=== PATIENT | male | born 1940 | race Caucasian/White ===

== ENCOUNTER 2018-01-13 18:45 | Inpatient (IN) | payer MEDICARE, OTHER, SELFPAY ==
--- NOTE | 2018-01-13 19:45 | CT_ITS ---
STUDY: CT ABDOMEN AND PELVIS WITHOUT CONTRAST REASON FOR EXAM: Male, 77 years old. Fever. Lower abdominal pain. RADIATION DOSAGE (If Supplied By Facility): CTDIvol = ( 11.81 ) mGy, DLP = ( 858.84 ) mGycm TECHNIQUE: Transaxial images were obtained from the dome of the diaphragm to the symphysis pubis without oral contrast, and without intravenous contrast. Sagittal and coronal images were reconstructed. Individualized dose optimization techniques were used for this CT. COMPARISON: None. FINDINGS: Evaluation of the abdominal viscera is limited in the absence of intravenous contrast. There is atelectasis noted at the lung bases. The visualized portions of the heart and pericardium are within normal limits. There are coronary artery calcifications noted. There are no calcified gallstones present. There are simple cysts noted in the liver. The spleen is normal in size. The pancreas demonstrates an unremarkable unenhanced appearance. The adrenal glands are within normal limits. There are no urinary calculi. There is mild bilateral hydronephrosis with bilateral perinephric stranding. Please note that pyelonephritis is not excluded without intravenous contrast. There are hyperdense lesions in the left kidney which are not fully evaluated on this noncontrast exam. These may represent complex cysts. Normal visualized stomach. There is no bowel obstruction or inflammation. The appendix is not visualized, but there are no findings to suggest acute appendicitis. There are postsurgical changes noted from prior left hernia repair. The aorta is normal in caliber. There is no abdominal or pelvic free air, free fluid, fluid collection or lymphadenopathy. There are no destructive osseous lesions. CT/Abdomen/Pelvis without Cont IMPRESSION: No urinary calculi. Mild bilateral hydronephrosis and perinephric stranding. Please note that pyelonephritis is not excluded without intravenous contrast. No bowel obstruction or inflammation. Hyperdense lesions in the left kidney which are not fully characterized on this noncontrast exam. These may represent complex cysts. Electronically Signed: Larry Mitchell, at 17:33 EDT Tel , Service support ,
--- NOTE | 2018-01-13 20:04 | RAD_ITS ---
STUDY: X-RAY CHEST REASON FOR EXAM: Male, 77 years old. Fever. TECHNIQUE: PA and lateral views of the chest. COMPARISON: September 04, 2014. FINDINGS: Telemetry wires overlie the chest. The lungs are clear and expanded. There is no demonstrated pleural abnormality. Normal size heart. Normal mediastinum and bakari. Normal visualized pulmonary arteries. There is atherosclerotic calcification of the aortic arch with tortuosity. There are diffuse degenerative changes of the visualized thoracic spine. There is degenerative osteoarthritis of the bilateral shoulders. There is no demonstrated abnormality of the visualized soft tissue structures of the upper abdomen. RAD/Chest PA and Lateral IMPRESSION: No acute cardiopulmonary disease. Electronically Signed: Tyler Bush DO at 15:07 EDT Tel [phone], Service support ,
--- NOTE | 2018-01-13 22:35 | DT_ITS ---
This patient was seen during an EMR downtime January 13, 2018 - January 20, 2018. This patient may have a combination of paper and electronic documentation or all paper documentation. All documentation is viewable within the e-chart portion of [facility] for each patient visit.
[2018-01-16 12:10] LABS: AST(SGOT) 17 U/L (15-37); Alanine Aminotransfer ALT/SGPT 17 U/L (16-61); Albumin, Serum 3.1 g/dL (3.2-5.0); Alkaline Phosphatase 71 U/L (45-117); BUN 37 mg/dL (7-18); BUN/Creat Ratio 21.8 RATIO (10-20); Calcium,Total 9.2 mg/dL (8.5-10.1); EST Glomerular Filtration Rate 42 mL/min (>60); Est Glom Filt Rate - Afr Amer 51 mL/min (>60); Glucose 116 mg/dL (74-106)
[2018-01-16 12:11] LABS: Anion Gap 9 (5-15); Chloride 101 mmol/L (98-107); Lactic Acid 1.1 mmol/L (0.4-2.0); Potassium 3.7 mmol/L (3.5-5.1); Sodium Level 137 mmol/L (136-145)
[2018-01-16 15:04] LABS: Red Blood Cells-Urine 0 SEEN /hpf (0-5); Squamous Epithelial Cells - UA 0 SEEN /hpf (0-5)
[2018-01-16 15:16] LABS: Color, Urine Yellow (Yellow); Glucose, Dipstick NEGATIVE (Normal); Ketone-Dipstick Negative (Negative); Urine Bilirubin Dipstick Negative (Negative); Urine Clarity Cloudy (Clear)
[2018-01-16 15:17] LABS: Protein-Dipstick 30 mg/dl (Negative); Urine Urobilinogen Normal (Normal)
[2018-01-16 15:18] LABS: Bacteria 1+ /hpf (None Seen); Leukocyte Esterase-Dipstick 1+ /ul (Negative); Mucous, Urine 1+ /hpf (<or=2+); Nitrite-Dipstick Positive (Negative); Occult Blood-Urine 50 /ul (Negative); Specific Gravity-Refractometer 1.009; White Blood Cells 10-25 SEEN /hpf (0-5)
[2018-01-17 08:37] LABS: ALB/GLOB Ratio 0.9 RATIO (0.9-2.4); Globulin 3.6 g/dL (2.2-4.2); Protein, Total 6.7 g/dL (6.4-8.2)
[2018-01-17 09:03] LABS: Hematocrit 35.9 % (40-54); Hemoglobin 11.4 g/dl (13.0-16.5); Mean Corp Hgb Conc 31.8 g/gl (32-36); Mean Corpuscular Hgb 30.5 pg (27.0-32.0); Mean Platelet Vol. 11.5 fl (6.2-12.0); POSITIVE COUNT NO; POSITIVE DIFFERENTIAL YES; POSITIVE MORPHOLOGY NO; Platelet Count 128 K/mm3 (150-450); RBC Distribution Width CV 12.9 % (11.6-14.6); RBC Distribution Width SD 43.3 fl (35.1-43.9); Red Blood Count 3.74 M/mm3 (4.6-6.2); White Blood Count 12.5 K/mm3 (4.4-11.0)
[2018-01-17 09:04] LABS: Absolute Lymphocyte Count 0.25 X10^3/ul (0.83-4.51); Absolute Neutrophil Count 11.7 X10^3/uL (2.0-7.7); Basophil# 0.01 X10^3/uL; Basophil% 0.1 % (0-1); Differential Comment SCANNED; Differential Indicated SCAN CRITERIA MET; Lymphocyte # 0.25 X10^3/ul (4.0); Monocyte# 0.48 X10^3/uL; Monocyte% 3.8 % (0-10); Neutrophil # 11.73 X10^3/uL (2.7-7.7); Neutrophil % 93.9 % (47-70)
[2018-01-17 11:53] LABS: Hematocrit 34.3 % (40-54); Hemoglobin 10.6 g/dl (13.0-16.5); Mean Corp Hgb Conc 30.9 g/gl (32-36); Mean Corpuscular Hgb 30.3 pg (27.0-32.0); Mean Platelet Vol. 11.9 fl (6.2-12.0); POSITIVE COUNT NO; POSITIVE DIFFERENTIAL NO; POSITIVE MORPHOLOGY NO; Platelet Count 136 K/mm3 (150-450); RBC Distribution Width SD 45.4 fl (35.1-43.9); White Blood Count 15.4 K/mm3 (4.4-11.0)
[2018-01-17 11:54] LABS: Absolute Lymphocyte Count 1.01 X10^3/ul (0.83-4.51); Absolute Neutrophil Count 13.1 X10^3/uL (2.0-7.7); Basophil# 0.01 X10^3/uL; Basophil% 0.1 % (0-1); Eosinophil# 0.01 X10^3/uL; Eosinophils% 0.1 % (0-5); Lymphocyte # 1.01 X10^3/ul (4.0); Lymphocyte % 6.6 % (19-41); Monocyte# 1.26 X10^3/uL; Monocyte% 8.2 % (0-10); Neutrophil # 13.07 X10^3/uL (2.7-7.7); Neutrophil % 84.8 % (47-70)
[2018-01-18 08:34] LABS: Anion Gap 7 (5-15); BUN 39 mg/dL (7-18); BUN/Creat Ratio 21.7 RATIO (10-20); Calcium,Total 8.6 mg/dL (8.5-10.1); Chloride 104 mmol/L (98-107); EST Glomerular Filtration Rate 39 mL/min (>60); Est Glom Filt Rate - Afr Amer 47 mL/min (>60); Glucose 104 mg/dL (74-106); Potassium 4.3 mmol/L (3.5-5.1); Sodium Level 139 mmol/L (136-145)
== END 2018-01-14 16:41 | disposition home or self-care (01) | DRG 872 ==
LOC: ED 01-15 11:45 → MS3 01-15 11:50
PROVIDERS: Admitting Provider Hospitalist; Emergency Provider Emergency Medicine; Family Provider Family Medicine; PCP Family Medicine; Visit Provider Hospitalist
DX: A41.9 Sepsis, unspecified organism (principal); N10 Acute pyelonephritis; I25.10 Atherosclerotic heart disease of native coronary artery without angina pectoris; E78.5 Hyperlipidemia, unspecified; N40.0 Benign prostatic hyperplasia without lower urinary tract symptoms; Z87.891 Personal history of nicotine dependence; I12.9 Hypertensive chronic kidney disease with stage 1 through stage 4 chronic kidney disease, or unspecified chronic kidney disease; N18.9 Chronic kidney disease, unspecified; Z95.5 Presence of coronary angioplasty implant and graft
CPT/HCPCS: 36415; 71046; 74176; 80048; 80053; 81001; 83605; 85025; 87040; 87086; 96365; 96366; 96375; 99285; J7030; J0696

== ENCOUNTER 2018-05-21 07:42 | Day surgery (SDC) | payer MEDICARE, OTHER, SELFPAY ==
[2018-05-19 06:55] LABS: Bacteria 0 SEEN /hpf (None Seen); Mucous, Urine 0 SEEN /hpf (<or=2+); Red Blood Cells-Urine 0 SEEN /hpf (0-5); Squamous Epithelial Cells - UA 0 SEEN /hpf (0-5)
--- NOTE | 2018-05-19 07:03 | EKG12_ITS ---
Test Reason : Blood Pressure : / mmHG Vent. Rate : 064 BPM Atrial Rate : 064 BPM P-R Int : 188 ms QRS Dur : 160 ms QT Int : 460 ms P-R-T Axes : 042 009 024 degrees QTc Int : 474 ms Normal sinus rhythm Right bundle branch block Abnormal ECG Confirmed by TRE WATT, BRIAN ([id number]), book or script editor STEFAN COOPER ([id number]) on 05/19/2018 2:09:57 PM Referred By: Jc Piña Confirmed By:BRIAN TOLEDO MD
[2018-05-19 07:21] LABS: Hematocrit 37.3 % (40-54); Hemoglobin 11.9 g/dl (13.0-16.5); Mean Corp Hgb Conc 31.9 g/gl (32-36); Mean Corpuscular Hgb 30.7 pg (27.0-32.0); Mean Corpuscular Volume 96.1 fL (80-94); Platelet Count 150 K/mm3 (150-450); RBC Distribution Width CV 13.2 % (11.6-14.6); RBC Distribution Width SD 45.1 fl (35.1-43.9); Red Blood Count 3.88 M/mm3 (4.6-6.2); White Blood Count 5.7 K/mm3 (4.4-11.0)
[2018-05-19 07:23] LABS: Scan Indicated on CBC? Y/N NO
[2018-05-19 07:31] LABS: Color, Urine Yellow (Yellow); Glucose, Dipstick Normal (Normal); Ketone-Dipstick Negative (Negative); Leukocyte Esterase-Dipstick 25 /ul (Negative); Nitrite-Dipstick Negative (Negative); Occult Blood-Urine Negative /ul (Negative); Protein-Dipstick 15 mg/dl (Negative); Specific Gravity, Urine 1.015 (1.002-1.030); Urine Bilirubin Dipstick Negative (Negative); Urine Clarity Sl. Cloudy (Clear); Urine Urobilinogen Normal (Normal)
[2018-05-19 07:37] LABS: Anion Gap 6 (5-15); BUN 34 mg/dL (7-18); Calcium,Total 9.3 mg/dL (8.5-10.1); Chloride 107 mmol/L (98-107); Creatinine, Serum 1.79 mg/dL (0.70-1.30); EST Glomerular Filtration Rate 39 mL/min (>60); Est Glom Filt Rate - Afr Amer 48 mL/min (>60); Glucose 93 mg/dL (74-106); Potassium 4.7 mmol/L (3.5-5.1); Sodium Level 141 mmol/L (136-145)
[2018-05-19 07:39] LABS: White Blood Cells 0-5 SEEN /hpf (0-5)
[2018-05-21 08:01] VITALS: BP 136/76; PULSE 61; RESP 16; TEMP 37.1; O2SAT 94; BMI 27.7
--- NOTE | 2018-05-21 09:15 | DCINST_ITS ---
Discharge Diet: Light diet - advance as tolerated - if you have questions about your diet instructions, please talk to you doctor. Discharge Activity: May Not Drive - for 1 week or while taking narcotic pain medicine. May shower in (days): 1 Lifting Restrictions: 10 pounds Call your doctor if your incision/area has: Continuous Slow Oozing, Sudden Increased Bleeding, Increased Pain/ Swelling, Increased Redness, Foul Smelling Discharge Call your doctor if you observe: Fever of 101 or Higher Suture Line Care: Avoid Pulling/Pushing, Avoid Pinching/Bending Additional Dressing/Incision Instructions:: Change or remove dressing in 4 days. Leave steri-strips in place for 1 week. Allergies/Adverse Reactions: Allergies lisinopril Adverse Reaction (Verified 05/16/18 13:35) Other Medications to take at Discharge Amlodipine [Norvasc] 5 mg PO DAILY 09/04/14 Atorvastatin Calcium [Lipitor] 20 mg PO QHS 09/04/14 Doxazosin Mesylate [Cardura] 4 mg PO QHS 09/04/14 Hydrochlorothiazide [Hctz] 25 mg PO DAILY 09/04/14 Losartan Potassium [Cozaar] 100 mg PO DAILY 09/04/14 aspirin 81 mg tablet,delayed release 81 mg PO DAILY 04/29/18 Hydrocodone Bitart/Apap 5-325 [[place] 5MG-325MG] 1 tablet PO Q4H PRN PRN 3 Days #8 tablet 05/21/18 The following prescriptions were given: Hydrocodone Bitart/Apap 5-325 [[place] 5MG-325MG] 1 tablet PO Q4H PRN PRN 3 Days #8 tablet PRN Reason: Pain Primary Care Physician: Juan Manuel Piña III, MD [Primary Care Provider] - Test Results: Test results from this visit will be discussed in further detail at your follow- up appointment, if applicable. Please Follow Up With: Jc Piña MD - [phone] When: Call to make an appointment to be seen in about 10 days.
[2018-05-21] MEDS: Cefazolin 2 GM in 0.9% Normal Saline 100 ML IV (09:16)
[2018-05-21] MEDS: Bupivacaine Mpf 0.5% 30 ML VIAL (10:20)
--- NOTE | 2018-05-21 10:26 | PCM.OPRPT ---
Problem List (1) Recurrent inguinal hernia of right side without obstruction or gangrene Status: Acute Report of Operation Date of Procedure: 05/21/18 Pre-Operative Diagnosis: Recurrent right inguinal hernia Post-Operative Diagnosis: Recurrent incarcerated direct right inguinal hernia Surgery/Procedure Performed:: Laparoscopic repair recurrent incarcerated direct right inguinal hernia with Bard 3D max mesh. Lot number [id number] 08/12/2005. Reference #[id number]. Expiry date 02/06/2022. Large right. Secure strap lot number [id number]. Expiry date 11/30/2019 Description of Surgical Findings:: Timeout informed consent was obtained. 77-year-old gentleman was taken to the operating room placed upon the table. He underwent general endotracheal intubation and anesthesia. 2 g of Ancef were given intravenously. The abdomen was sterilely prepped and draped. 0.5% Marcaine was used as local anesthetic. Skin sites were pre-anesthetized. A vertical incision was made in the inferior portion of the umbilicus. Direct access was gained to the abdomen. A 10 mm trocar was placed. The abdomen was insufflated with CO2 usual pressure millimeters of mercury pressure. Evidence of a previous lap scopic repair of left and one hernia appear to be solid and intact. The abdomen was superficially inspected no gross abnormalities. Five-minute trochars placed in the left and right lower quadrant. The peritoneum superior lateral to the internal ring on the right was incised carried immediately the peritoneum was rather adherent I had to carefully dissect that free dissected free to the pubic tubercle identified the lap scopic mesh repair from the left side freed up the urinary bladder there was evidence of fibrofatty tissue that was tightly incarcerated within a recurrent direct right defect. I had a tediously bluntly milked this free. Were needed hemoclips were used for hemostasis I was able to completely remove the incarcerated fibrofatty tissue. Dissected then laterally to completely free the peritoneum so I could see the indirect space direct space and femoral area. I selected a Bard 3D max large right mesh. Placed that and it nicely seated itself nicely covering the defect area. I secured it laterally superiorly medially with secure strap. Excellent positioning was achieved. I then reapproximated the peritoneum using 3 secure strap tacks with complete obliteration to the mesh. One tiny defect in the peritoneum was approximately a Hem-o-emma clip. Trochars were removed under visualization. It is of note at the time of surgery a ileal inguinal nerve block was performed on the right under visualization as well. Trochars were removed. The fascial defect at the umbilicus approximated with interrupted 0 Nurolon xiyqlx-ph-[id number] suture. Skin edges affect interrupted 4 Monocryl subdermal stitches. Steri-Strips Telfa OpSite dressings applied. Sponge instrument and needle counts were reported the surgeon to be correct. Blood loss was minimal. No apparent complications. Specimens none. Drains none. Blood loss minimal. He was taken to the recovery area in satisfactory condition without apparent complication. Jc Piña M.D., F.A.C.S. Type of Anesthesia:: General Anesthesiologist: Laz Amanda
--- NOTE | 2018-05-21 10:38 | OP.PCM_ITS ---
Problem List (1) Recurrent inguinal hernia of right side without obstruction or gangrene Status: Acute Report of Operation Date of Procedure: 05/21/18 Pre-Operative Diagnosis: Recurrent right inguinal hernia Post-Operative Diagnosis: Recurrent incarcerated direct right inguinal hernia Surgery/Procedure Performed:: Laparoscopic repair recurrent incarcerated direct right inguinal hernia with Bard 3D max mesh. Lot number [id number] 08/12/2005. Reference #[id number]. Expiry date 02/06/2022. Large right. Secure strap lot number [id number]. Expiry date 11/30/2019 Description of Surgical Findings:: Timeout informed consent was obtained. 77-year-old gentleman was taken to the operating room placed upon the table. He underwent general endotracheal intubation and anesthesia. 2 g of Ancef were given intravenously. The abdomen was sterilely prepped and draped. 0.5% Marcaine was used as local anesthetic. Skin sites were pre-anesthetized. A vertical incision was made in the inferior portion of the umbilicus. Direct access was gained to the abdomen. A 10 mm trocar was placed. The abdomen was insufflated with CO2 usual pressure millimeters of mercury pressure. Evidence of a previous lap scopic repair of left and one hernia appear to be solid and intact. The abdomen was superficially inspected no gross abnormalities. Five-minute trochars placed in the left and right lower quadrant. The peritoneum superior lateral to the internal ring on the right was incised carried immediately the peritoneum was rather adherent I had to carefully dissect that free dissected free to the pubic tubercle identified the lap scopic mesh repair from the left side freed up the urinary bladder there was evidence of fibrofatty tissue that was tightly incarcerated within a recurrent direct right defect. I had a tediously bluntly milked this free. Were needed hemoclips were used for hemostasis I was able to completely remove the incarcerated fibrofatty tissue. Dissected then laterally to completely free the peritoneum so I could see the indirect space direct space and femoral area. I selected a Bard 3D max large right mesh. Placed that and it nicely seated itself nicely covering the defect area. I secured it laterally superiorly medially with secure strap. Excellent positioning was achieved. I then reapproximated the peritoneum using 3 secure strap tacks with complete obliteration to the mesh. One tiny defect in the peritoneum was approximately a Hem-o-emma clip. Trochars were removed under visualization. It is of note at the time of surgery a ileal inguinal nerve block was performed on the right under visualization as well. Trochars were removed. The fascial defect at the umbilicus approximated with interrupted 0 Nurolon ysnnyx-vy-njjpu suture. Skin edges affect interrupted 4 Monocryl subdermal stitches. Steri-Strips Telfa OpSite dressings applied. Sponge instrument and needle counts were reported the surgeon to be correct. Blood loss was minimal. No apparent complications. Specimens none. Drains none. Blood loss minimal. He was taken to the recovery area in satisfactory condition without apparent complication. Jc Piña M.D., F.A.C.S. Type of Anesthesia:: General Anesthesiologist: Laz Amanda
[2018-05-21 10:54] VITALS: BP 119/60; BP 136/76; PULSE 57; RESP 14; TEMP 36.7; O2SAT 92
[2018-05-21 11:00] VITALS: BP 135/65; BP 136/76; PULSE 92; RESP 16; O2SAT 95
[2018-05-21 11:15] VITALS: BP 120/62; BP 136/76; PULSE 66; RESP 16; O2SAT 94
[2018-05-21 11:41] VITALS: BP 128/58; BP 136/76; PULSE 53; RESP 16; TEMP 36.7; O2SAT 92
[2018-05-21 13:46] VITALS: BP 136/76; BP 143/52; PULSE 62; RESP 16; TEMP 36.3; O2SAT 92
== END 2018-05-21 14:07 | disposition home or self-care (01) ==
LOC: SDC 07:43 → AC 07:43
PROVIDERS: Family Provider Family Medicine; PCP Family Medicine; Referring Provider Surgery; Visit Provider Surgery
PROC: (CPT 49650; principal; 2018-05-21 09:30)
DX: K40.31 Unilateral inguinal hernia, with obstruction, without gangrene, recurrent (principal); I12.9 Hypertensive chronic kidney disease with stage 1 through stage 4 chronic kidney disease, or unspecified chronic kidney disease; N18.3 Chronic kidney disease, stage 3 (moderate); I25.10 Atherosclerotic heart disease of native coronary artery without angina pectoris; I45.10 Unspecified right bundle-branch block; D64.9 Anemia, unspecified; E78.5 Hyperlipidemia, unspecified; K21.9 Gastro-esophageal reflux disease without esophagitis; Z79.82 Long term (current) use of aspirin; Z79.899 Other long term (current) drug therapy; I25.2 Old myocardial infarction; Z87.891 Personal history of nicotine dependence; Z86.73 Personal history of transient ischemic attack (TIA), and cerebral infarction without residual deficits; Z95.5 Presence of coronary angioplasty implant and graft
CPT/HCPCS: 49651; 36415; 80048; 81001; 85027; 93005; J7120; A4216; C1781; J2405

== ENCOUNTER 2019-12-22 07:24 | Day surgery (SDC) | payer MEDICARE, SELFPAY ==
[2019-12-16 10:35] VITALS: BMI 27.7
[2019-12-22 07:49] VITALS: BP 135/78; PULSE 59; RESP 16; TEMP 36.8; O2SAT 97; BMI 28.0
[2019-12-22] MEDS: Lactated Ringers 1,000 ML 100 ML IV (08:05)
--- NOTE | 2019-12-22 08:21 | PCM.HP.STD ---
Problem List (1) Screening for intestinal cancer Status: Acute History of Present Illness Date of Admission: 12/22/19 The patient is a 79 year old M who presents for screening colonoscopy HPI Details: Patient was informed that this visit will be billed to patient. This visit was conducted during - pandemic. LUIS MANUEL CASTILLO, is a 79 M who presents to the office today for surgical consultation today regarding need for colonoscopy. This was a virtual visit. The patient was located in his home and I was located in my office. The patient was agreeable. His most recent colonoscopy approximately 10 years ago. Fortunately he denies bright red blood per rectum or melena. I recently saw him for hyperparathyroidism and he did go on to see endocrine surgery who did not recommend surgery but rather conservative measures with increased fluid intake. He denies family history of colon polyps or colon cancer. He does not believe that he is ever previously had colon polyps but he is not completely sure. He has never had colon surgery. He denies abdominal pain. No bright red blood per rectum or melena. He states that his health otherwise is stable. He denies fever or chills or shortness of breath. He is able to climb a flight of stairs. Past Medical History Past Medical History (Chronic Problems): Chronic Problems (Last Reviewed 12/16/19 @ 10:33 by Ruby Lim) Hypertension (Chronic) Medical History: Medical History (Last Reviewed 12/16/19 @ 10:33 by Ruby Lim) Screening for intestinal cancer (Acute) Z12.10 Osteopenia determined by x-ray (Acute) M85.80 Hyperparathyroidism (Acute) E21.3 Recurrent inguinal hernia of right side without obstruction or gangrene (Acute) K40.91 TIA (transient ischemic attack) (Acute) G45.9 Mild renal insufficiency (Acute) N28.9 Esophageal reflux (Acute) K21.9 Dyslipidemia (Acute) E78.5 Hiatal hernia (Acute) K44.9 CKD (chronic kidney disease) stage 3, GFR 30-59 ml/min (Acute) N18.3 CAD (coronary artery disease), [place]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 (Acute) I25.811 Anemia (Acute) D64.9 History of heart attack (Acute) I25.2 Hypertension (Chronic) I10 Allergies lisinopril Adverse Reaction (Verified 12/18/19 12:41) Other Home Medications: Ambulatory Orders Medication Instructions Recorded Atorvastatin Calcium [Lipitor] 20 mg PO QHS 09/04/14 Doxazosin Mesylate [Cardura] 4 mg PO QHS 09/04/14 Hydrochlorothiazide [Hctz] 25 mg PO DAILY 09/04/14 aspirin 81 mg tablet,delayed 81 mg PO DAILY 04/29/18 release amlodipine 5 mg tablet 5 mg PO DAILY 10/27/19 metoprolol tartrate 25 mg tablet 25 mg PO BID 10/27/19 Cholecalciferol (Vitamin D3) 2,000 unit PO DAILY 12/18/19 [Vitamin D3] Surgical History: Surgical History (Last Reviewed 12/16/19 @ 10:33 by Ruby Lim) Hx of parathyroidectomy (Acute) Z98.890 05/27/13 Hx of bilateral inguinal hernia repair (Acute) Z98.890, Z87.19 Hx of heart artery stent (Acute) Z95.5 Smoking Status: Former smoker Tobacco Use: Non-smoker Review of Systems Constitutional: Denies: Anorexia Cardiovascular: Denies: Chest Pain Respiratory: Denies: Cough Gastrointestinal: Denies: Abdominal Pain, Melena Endocrine: Denies: Change in Body Habitus VTE Information - Inpt Only VTE Present on Admission: No - Physical Exam Vitals/I&O's: Vital Signs Temp Pulse Resp BP Pulse Ox 98.3 F 59 L 16 135/78 H 97 12/22/19 07:49 12/22/19 07:49 12/22/19 07:49 12/22/19 07:49 12/22/19 07:49 Oxygen Delivery Method Room Air Weight: 178 lb 12.718 oz Body Mass Index (BMI) 28.0 General: Alert, Oriented x3, Cooperative, No apparent distress Neck: Supple Lungs: Clear to auscultation, Normal air movement Cardiovascular: Regular rate, Regular Rhythm Abdomen: Soft, Non Tender Extremities: No Calf Tenderness Psych/Mental Status: Normal Affect Current Medications Lactated Ringer's () 1,000 mls @ 100 mls/hr IV .Q10H NIDA Last Admin: 12/22/19 08:05 Dose: 100 mls/hr Documented by: Assessment/Plan All Active Problems (Last Reviewed 12/16/19 @ 10:33 by Ruby Lim) Screening for intestinal cancer (Acute) Osteopenia determined by x-ray (Acute) Hyperparathyroidism (Acute) Recurrent inguinal hernia of right side without obstruction or gangrene (Acute) Recurrent inguinal hernia (Acute) TIA (transient ischemic attack) (Acute) Mild renal insufficiency (Acute) Esophageal reflux (Acute) Dyslipidemia (Acute) Hiatal hernia (Acute) CKD (chronic kidney disease) stage 3, GFR 30-59 ml/min (Acute) CAD (coronary artery disease), [place]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 He had had a virtual appointment preprocedure. He has had an opportunity to ask and have questions answered. We will proceed as noted. Jc Piña M.D., F.A.C.S.
[2019-12-22 09:01] VITALS: BP 110/67; BP 135/78; PULSE 52; RESP 18; TEMP 36.3; O2SAT 96
--- NOTE | 2019-12-22 09:04 | OP.COLON_ITS ---
Patient Name: Sharan Duran Procedure Date: 12/22/2019 8:35 AM Date of : 1940 Age: 79 Procedure: Colonoscopy Indications: Screening for colorectal malignant neoplasm Providers: Jc Piña MD Referring MD: Juan Manuel Piña Iii Medicines: See the Anesthesia note for documentation of the administered medications Patient Profile: Last Colonoscopy: 10 years ago. Complications: No immediate complications. Procedure: Pre-Anesthesia Assessment: - Prior to the procedure, a History and Physical was performed, and patient medications and allergies were reviewed. The patient's tolerance of previous anesthesia was also reviewed. The risks and benefits of the procedure and the sedation options and risks were discussed with the patient. All questions were answered, and informed consent was obtained. Prior Anticoagulants: The patient has taken no previous anticoagulant or antiplatelet agents. ASA Grade Assessment: III - A patient with severe systemic disease. After reviewing the risks and benefits, the patient was deemed in satisfactory condition to undergo the procedure. After I obtained informed consent, the scope was passed under direct vision. Throughout the procedure, the patient's blood pressure, pulse, and oxygen saturations were monitored continuously. The colonoscope was introduced through the anus and advanced to the cecum, identified by appendiceal orifice and ileocecal valve. The colonoscopy was performed without difficulty. The patient tolerated the procedure well. The quality of the bowel preparation was good. The ileocecal valve and the appendiceal orifice were photographed. Scope In: 8:45:38 AM Scope Withdrawal Time 0 hours 6 minutes 37 seconds Scope Out: 8:57:27 AM Total Procedure Duration Time 0 hours 11 minutes 49 seconds Findings: The digital rectal exam findings include non-thrombosed external hemorrhoids, non-thrombosed internal hemorrhoids and internal hemorrhoids that prolapse with straining, but spontaneously regress to the resting position (Grade II). prostate slightly enlarged. No mass Multiple diverticula were found in the sigmoid colon and descending colon. The exam was otherwise without abnormality. Impression: - Non-thrombosed external hemorrhoids, non-thrombosed internal hemorrhoids and internal hemorrhoids that prolapse with straining, but spontaneously regress to the resting position (Grade II) found on digital rectal exam. - Diverticulosis in the sigmoid colon and in the descending colon. - The examination was otherwise normal. - No specimens collected. Recommendation: - Discharge patient to home. - Resume previous diet. - Continue present medications. - Repeat colonoscopy is not recommended due to current age (66 years or older) for screening purposes. Procedure Code(s): --- Professional --- 16457, Colonoscopy, flexible; diagnostic, including collection of specimen(s) by brushing or washing, when performed (separate procedure) Diagnosis Code(s): --- Professional --- Z12.11, Encounter for screening for malignant neoplasm of colon K64.1, Second degree hemorrhoids K64.4, Residual hemorrhoidal skin tags K57.30, Diverticulosis of large intestine without perforation or abscess without bleeding CPT copyright 2017 [employer]. All rights reserved. The codes documented in this report are preliminary and upon bobbin inspector review may be revised to meet current compliance requirements. Jc Piña MD 12/22/2019 9:04:33 AM This report has been signed electronically. Number of Addenda: 0 Note Initiated On: 12/22/2019 8:35 AM
--- NOTE | 2019-12-22 09:05 | OP.CCLET_ITS ---
12/22/2019 Juan Manuel Piña [address] [place] [address] Re : Colonoscopy procedure for Sharan Duran Dear Dr. Piña This procedure was performed on Sunday, December 22, 2019. My impressions and recommendations are as follows: Impressions : - Non-thrombosed external hemorrhoids, non-thrombosed internal hemorrhoids and internal hemorrhoids that prolapse with straining, but spontaneously regress to the resting position (Grade II) found on digital rectal exam. - Diverticulosis in the sigmoid colon and in the descending colon. - The examination was otherwise normal. - No specimens collected. Recommendations : - Discharge patient to home. - Resume previous diet. - Continue present medications. - Repeat colonoscopy is not recommended due to current age (66 years or older) for screening purposes. My findings are described in the full procedure note, which is enclosed. If I can be of further assistance, please feel free to contact me at Doctor phone number(s): Work: . Sincerely, Jc Piña MD 12/22/2019 9:04:33 AM This report has been signed electronically.
[2019-12-22 09:06] VITALS: BP 111/61; BP 135/78; PULSE 52; RESP 18; O2SAT 95
[2019-12-22 09:11] VITALS: BP 111/71; BP 135/78; PULSE 54; RESP 18; O2SAT 96
[2019-12-22 09:16] VITALS: BP 116/63; BP 135/78
[2019-12-22 09:40] VITALS: BP 135/78
--- OUTSIDE RECORDS SUMMARY | 2020-05-24 08:58 | XMS RPT_ITS | CCD ---
:1940 External Reference #:[id number] Author Organization [facility] Care Team Providers Name Role Phone Cebul, A Unavailable Lefty Brittany Unavailable PHAY, E Unavailable Unavailable PHAY, E Unavailable Unavailable CEBUL, A Unavailable Unavailable PHAY, E Unavailable Unavailable CEBUL, A Unavailable Unavailable CEBUL, A Unavailable Unavailable PHAY, E Unavailable Unavailable PHAY, E Unavailable Unavailable CEBUL, A Unavailable Unavailable Cebul, A Primary Care Provider Allergies Reported Allergen Reaction(s) Severity Date of Onset Location guaiFENesin / 07-31-2005 - [facility] Pseudoephedrine (35289) Lisinopril Cough 11-22-[address] [facility] ([address]4831) Nizatidine 07-31-2005 - [facility] (19811) quinapril 07-31-2005 - [facility] (54709) Medications Current Medications Medication Name Sig Date Prescriber Location Doxazosin doxazosin 4 MG PO TABS take [place] [facility] 4 mg by mouth daily. [facility] (50771) Losartan losartan 100 MG PO TABS take [place] [facility] 100 mg by mouth daily. [facility] (09708) Omeprazole omeprazole [address] Rebecca fletcher [facility] Indications: Symptomatic [facility] Gastroesophageal Reflux [facility] Disease take 40 mg by mouth (56254) daily. Indications: Gastroesophageal Reflux Disease with Current Symptoms Active prasugrel Prasugrel HCl 10 MG Tab take [place] [facility] 10 mg by mouth daily.. [facility] Reported on 10/11/2016 [facility] (06679) Completed/Discontinuned Medications Medication Name Sig Date Prescriber Location amLODIPine amLODIPine (NORVASC) 5 12-23-2019 Celestina Karen [facility] mg tablet Take 1 tablet [facility] by mouth once daily. 90 [facility] tablet 3 12/23/2019 (11412) Active amLODIPine (NORVASC) 10 mg 11-05-2019 Celestina Jones [facility]'s tablet Take 0.5 tablets by [facility] (47760) mouth once daily. 30 tablet 12 11/05/2019 Active amLODIPine 5 MG PO TABS Scarlet Salvador [facility]'s take 5 mg by mouth daily. [place] (14224) Active Comment: Take 0.5 tablets by mouth on daily. Take 1 tablet by mouth once daily. Aspirin aspirin, enteric coated 12-24-2014 Celestina Jones [facility] (ADULT LOW DOSE ASPIRIN) [facility] 81 mg EC tablet Take 1 (4321 0) tablet by mouth once daily. 0 12/24/2014 Active aspirin 325 MG Tab take 81 mg by mouth [facility] daily. Active [place] (84185) Comment: Take 1 tablet by mouth once daily. atorvastatin atorvastatin (LIPITOR) 02-29-2020 Criselda Vasquez [facility]'s 40 mg tablet Take 1 [facility] tablet by mouth once (19138) daily. For cholesterol. 90 tablet 3 02/29/2020 Active atorvastatin 20 MG PO TABS take 40 Nora Wile [facility] [place] mg by mouth daily. Active Medica l [place] (37534) Comment: Take 1 tablet by mouth once daily. For cholesterol. Cholecalciferol cholecalciferol, vitamin 01-10-2016 Celestina Jones [facility] D3, 4,000 unit cap Take [facility] 4,000 Units by mouth once [facility] daily. 0 01/10/2016 (23859) Active Cholecalciferol (VITAMIN D) 2000 units Cap [facility] Medical take 4,000 Units by mouth daily.. Active [place] (62073) Comment: Take 4,000 Units by mouth on daily. hydroCHLOROthiazide hydroCHLOROthiazide 08-31-2019 Criselda London [facility] (HYDRODIURIL, ESIDRIX) 25 [facility] mg tablet Take 1 tablet [place] [facility] by mouth once daily. 90 [facility] (45121) tablet 3 08/31/2019 Active Hydrochlorothiazide 12.5 MG PO TABS take 25 [facility] [place] mg by mouth daily. Active Medica [facility] [place] (00752) Comment: Take 1 tablet by mouth once daily. Metoprolol metoprolol tartrate, 09-02-2019 [facility]ina Jones [facility] short acting, [place] (LOPRESSOR) 25 mg tablet (43 210) Take 1 tablet by mouth twice daily. 180 tablet 3 09/02/2019 Active metoprolol 25 MG tab regular release [facility] take 50 mg by mouth 2 times daily. [place] (03355) Active Comment: Take 1 tablet by mouth twice daily. Nitroglycerin nitroglycerin sublingual 03-09-2019 Celestina [place] [facility] (NITROSTAT) 0.4 mg SL [facility] Dissolve 1 [facility] (49403) under the tongue every 5 minutes as needed. 25 Bottle of 25 0 03/09/2019 Active NITROGLYCERIN SL by Sublingual route 3 [facility] times daily as needed. Active nt (12185) NITROGLYCERIN SL by Sublingual route 3 [facility] times daily as needed. Active nter (83545) Comment: Dissolve 1 tablet under the tongue every 5 minutes as needed. tamsulosin tamsulosin ER 11-05-2019 - Criselda [facility] (FLOMAX) 0.4 mg Take 04-19-2020 (44165) 1 capsule by mouth daily at bedtime. 90 capsule 1 04/19/2020 Active Comment: Take 1 capsule by mouth hui y at bedtime. Problems Active Problems Category Problem Name Status Date Location Acute myocardial Myocardial infarction Active 03-06-2018 [facility] infarction - (29842) Chronic kidney disease Chronic kidney disease Active 03-04-20 17 [facility] stage 3 - (78603) Coronary Coronary arteriosclerosis Active 03-06-2018 [facility] atherosclerosis and - (11586) other heart disease Disorders of lipid Hyperlipidemia Active 09-03-2013 [facility] metabolism - (90786) Esophageal disorders Gastroesophageal reflux Active [facility] disease (45822) Essential hypertension Benign essential Active [facility] hypertension (34575) 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-2005 [facility] hypertrophy with outflow - (44 195) obstruction Other and unspecified History of polyp of colon Active [facility] benign neoplasm (70330) Other endocrine Hypoparathyroidism Active 07-08-2018 [facility] lloyd [facility] (74397) Other endocrine Hyperparathyroidism Active 03-04-2017 [facility] disorders - (68390) Other hereditary and Essential tremor Active 07-03-2010 [facility] degenerative nervous - (05467) system conditions Other lower respiratory Lung mass Active [facility] (17421) Thyroid disorders Thyroid nodule Active 04-30-2013 [facility] (27111) Unclassified Nontoxic single thyroid Active 04-30-2013 [facility] nodule / E04.1(ICD-10) - [facility] (58599) Unclassified Patient encounter status Active [facility] (24654) Past or Other Problems Category Problem Name Status Date Location Deficiency and other Anemia Completed 10-15-2013 - [facility] anemia (05405) Other and unspecified Parathyroid adenoma Completed 03-04-2017 - [facility] benign neoplasm (93517) Other screening for Raised prostate Completed 03-11-2019 - [facility] suspected conditions specific antigen (44 195) (not mental disorders or infectious disease) Results Result Name Value Range Unit Interpretation Flag Date Location progress on 2020-04 PROGRESS HNO ID: [id number] Normal 05-02-2020 [facility] Author: Edita Cordova Ma [facility] ([id number]) Service: ? Author Type: ? Type: Progress Notes Filed: 05/04/2020 7:40 AM Note Text: POPULATION HEALTH NAVIGATION OUTREACH Action/ [facility] project: blood pressure results to payer Patients open care gaps: Colonoscopy Mychart message sent today Dr. Piña please sign pended order Contact made with patient? NO Pt identified by name and : NO Outreach Outcome/Action MyChart message sent Reason for Outreach Care Gap Payer: Payor: [facility] MEDICARE / Plan: [facility] MEDICARE HMO / Pro duct Type: HMO / Care Gap Addressed: Colorectal Cancer Screening Reminder: Please only focus on orders for the HEDIS items ab ove Health Maintenance items due: HEPATITIS C SCREENING due on 12/11/1959 SHINGRIX VACCINE(1 of 2) due on 12/11/1991 COLONOSCOPY due on 12/27/2018 ADVANCE DIRECTIVE DISCUSSION due on 09/21/2019 BP CONTROLLED (<130/80) due on 03/09/2020 INFLUENZA(1) due on 04/12/2020 Referrals: N/A Message Sent to Practice: YES Navigation Signature: Edita Cordova Ma May 02, 2020 1:19 PM cnptoutreach on CNPTOUTREACH Patient Outreach (NETNAV) Normal 0 05-02-2020 [facility] SHARAN DURAN JR ([id number]) 1940 [facility] Date Time Provider Department (93488) 05/02/20 EDITA CORDOVA (CLIF) NETNAV During your visit today, we recorded the following informati on about you: Edita Cordova Ma 05/04/2020 7:40 AM Signed POPULATION HEALTH NAVIGATION OUTREACH Action/ [facility] project: blood pressure results to payer Patients open care gaps: Colonoscopy Mychart message sent today Dr. Piña please sign pended order Contact made with patient? NO Pt identified by name and : NO Outreach Outcome/Action MyChart message sent Reason for Outreach Care Gap Payer: Payor: [facility] MEDICARE / Plan: [facility] MEDICARE HMO / Product Type: HMO / Care Gap Addressed: Colorectal Cancer Screening Reminder: Please only focus on orders for the HEDIS items ab ove Health Maintenance items due: HEPATITIS C SCREENING due on 12/11/1959 SHINGRIX VACCINE(1 of 2) due on 12/11/1991 COLONOSCOPY due on 12/27/2018 ADVANCE DIRECTIVE DISCUSSION due on 09/21/2019 BP CONTROLLED (<130/80) due on 03/09/2020 INFLUENZA(1) due on 04/12/2020 Referrals: N/A Message Sent to Practice: YES Navigation Signature: Edita Cordova Ma May 02, 2020 1:19 PM Allergies As of Date: 05/02/2020 Noted Allergy Reaction ACCUPRIL (QUINAPRIL HCL) 07/31/2005 AXID (NIZATIDINE) 07/31/2005 ENTEX PSE (PSEUDOEPHEDRINE-GUAIFE*07/31/2005 LISINOPRIL 11/22/2010 3 - Cough Date Reviewed: 12/01/2019 Reviewed by: Ramesh Barrett Ma - Fully Assessed Reason for Visit: Population Health Navigation Outreach [3910] Cmt: [facility] projec t Primary Visit Diagnosis:Screening for malignant neoplasm of colon [Z12.11] Order(s):COLONOSCOPY SCRN NOT HIGH RISK [[id number] D] Order #: [id number] FUTURE PRE-PROCEDURE AND PRE-OPERATIVE COVID [SQPOCOVD] Order #: [id number] FUTURE Prescriptions as of 05/02/2020 Sig: TAMSULOSIN 0.4 MG CAPSULE Take 1 capsule by mouth daily* ATORVASTATIN 40 MG TABLET Take 1 tablet by mouth once d* AMLODIPINE 5 MG TABLET Take 1 tablet by mouth once d* AMLODIPINE 10 MG TABLET Take 0.5 tablets by mouth onc* METOPROLOL TARTRATE 25 MG TAB* Take 1 tablet by mouth twice * HYDROCHLOROTHIAZIDE 25 MG TAB* Take 1 tablet by mouth once d * NITROGLYCERIN 0.4 MG SUBLINGU* Dissolve 1 tablet under the t * CHOLECALCIFEROL (VITAMIN D3) * Take 4,000 Units by mouth onc * ASPIRIN 81 MG TABLET,DELAYED * Take 1 tablet by mouth once d * Problem List As Of Date 05/02/2020 Noted Resolved BENIGN HYPERTENSION [I10] PERS HX COLONIC POLYPS [Z86.010] More... More... ESOPHAGEAL REFLUX [K21.9] More... Unspecified transient cerebral ischemia [G45.9] 01/15/2018 More... 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 Parathyroid adenoma [D35.1] 03/04/2017 More... CKD (chronic kidney disease) stage 3, GFR 30-59*03/04/2017 ASHD (arteriosclerotic heart disease) [I25.10] 03/06/2018 NSTEMI (non-ST elevated myocardial infarction) *03/06/2018 More... Elevated PSA [R97.20] 03/11/2019 Encounter Status:Closed by EDITA CORDOVA MA on 05/04/20 obsolete on 2020-04 OBSOLETE Refill (FAMPWS) Normal 04-19-2020 [facility] SHARAN Montana JR ([id number]) 1940 [facility] Time Provider Department (30951) 04/19/20 CELESTINA PIÑA IIIPWS During your visit today, we recorded the following informati on about you: Syeda Lim Ma 04/19/2020 1:22 PM Signed Patient has been identified by name and date of : Yes Pending Prescriptions Disp Refills TAMSULOSIN 0.4 MG CAPSULE 90 capsule 1 Sig: Take 1 capsule by mouth daily at bedtime. TASNEEM: No RX INSTRUCTIONS: Patient aware RX will be sent to pharmacy. No need to notify patient. Syeda Lim Ma Allergies As of Date: 04/19/2020 Noted Allergy Reaction ACCUPRIL (QUINAPRIL HCL) 07/31/2005 AXID (NIZATIDINE) 07/31/2005 ENTEX PSE (PSEUDOEPHEDRINE-GUAIFE*07/31/2005 LISINOPRIL 11/22/2010 3 - Cough Date Reviewed: 12/01/2019 Reviewed by: Ramesh Barrett Ma - Fully Assessed Reason for Visit: Refill Request [94] Order(s):tamsulosin ER (FLOMAX) 0.4 mgTake 1 capsule by mout h daily at bedtime.Disp: 90 capsuleRfl: 1 Prescriptions as of 04/19/2020 Sig: TAMSULOSIN 0.4 MG CAPSULE Take 1 capsule by mouth daily* ATORVASTATIN 40 MG TABLET Take 1 tablet by mouth once d* AMLODIPINE 5 MG TABLET Take 1 tablet by mouth once d* AMLODIPINE 10 MG TABLET Take 0.5 tablets by mouth onc* METOPROLOL TARTRATE 25 MG TAB* Take 1 tablet by mouth twice * HYDROCHLOROTHIAZIDE 25 MG TAB* Take 1 tablet by mouth once d * NITROGLYCERIN 0.4 MG SUBLINGU* Dissolve 1 tablet under the t * CHOLECALCIFEROL (VITAMIN D3) * Take 4,000 Units by mouth onc * ASPIRIN 81 MG TABLET,DELAYED * Take 1 tablet by mouth once d * Problem List As Of Date 04/19/2020 Noted Resolved BENIGN HYPERTENSION [I10] PERS HX COLONIC POLYPS [Z86.010] More... More... ESOPHAGEAL REFLUX [K21.9] More... Unspecified transient cerebral ischemia [G45.9] 01/15/2018 More... 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 Parathyroid adenoma [D35.1] 03/04/2017 More... CKD (chronic kidney disease) stage 3, GFR 30-59*03/04/2017 ASHD (arteriosclerotic heart disease) [I25.10] 03/06/2018 NSTEMI (non-ST elevated myocardial infarction) *03/06/2018 More... Elevated PSA [R97.20] 03/11/2019 Prescriptions ordered this encounter Disp Refills Start End TAMSULOSIN 0.4 MG CAPSULE 90 c* 1 04/19/2020 Route: ORAL Sig: Take 1 capsule by mouth daily at bedtime. Medications Discontinued During This Encounter Prescriptions - tamsulosin ER (FLOMAX) 0.4 mg (Discontinued) Take 1 capsule by mouth daily at bedtime. Encounter Status:Closed by CRISELDA BRUCE EXOTIC DANCER on 04/19/20 vitamin d 25 hydroxy on 2020-02-29 Vitamin D 25 Hydroxy 53.6 31.0-80.0 ng/mL Normal 0 [facility] ([id number]) Comment: Result Comment: Classificati on of 25 [place] Vitamin D status: Insufficiency/Moderate Defic iency: < or = 30 ng/mL Sufficiency/Optimal Levels: 31 to 80 ng/mL Toxicity: > 100 ng/mL Test performed by chemilumin escent immunoassay. Performed By: #### ALB, BMP, VITD ####[facility] [address] [place] [address] [phone] obsolete on 2020-02 OBSOLETE Refill (FAMPWS) Normal 02-29-2020 [facility] SHARAN Montana JR ([id number]) 1940 [facility] Date Time Provider Department (87716) 02/29/20 CELESTINA PIÑA III FAMPWS During your visit today, we recorded the following informati on about you: Dorcas Gonzalez LPN 02/29/2020 3:04 PM Signed Last refill 02/19/19 Qty: 90 with 3 refills Last ov 11/05/19 No appt scheduled Dorcas Jones Milindjuanis THOM Allergies As of Date: 02/29/2020 Noted Allergy Reaction ACCUPRIL (QUINAPRIL HCL) 07/31/2005 AXID (NIZATIDINE) 07/31/2005 ENTEX PSE (PSEUDOEPHEDRINE-GUAIFE*07/31/2005 LISINOPRIL 11/22/2010 3 - Cough Date Reviewed: 12/01/2019 Reviewed by: Ramesh Barrett Ma - Fully Assessed Reason for Visit: Refill Request [94] Order(s):atorvastatin (LIPITOR) 40 mg ta bletTake 1 tablet by mouth once daily. For cholesterol.Disp: 90 tabletRfl: 3 Prescriptions as of 02/29/2020 Sig: ATORVASTATIN 40 MG TABLET Take 1 tablet by mouth once d* AMLODIPINE 5 MG TABLET Take 1 tablet by mouth once d* AMLODIPINE 10 MG TABLET Take 0.5 tablets by mouth onc* TAMSULOSIN 0.4 MG CAPSULE Take 1 capsule by mouth daily* METOPROLOL TARTRATE 25 MG TAB* Take 1 tablet by mouth twice * HYDROCHLOROTHIAZIDE 25 MG TAB* Take 1 tablet by mouth once d * NITROGLYCERIN 0.4 MG SUBLINGU* Dissolve 1 tablet under the t * CHOLECALCIFEROL (VITAMIN D3) * Take 4,000 Units by mouth onc * ASPIRIN 81 MG TABLET,DELAYED * Take 1 tablet by mouth once d * Problem List As Of Date 02/29/2020 Noted Resolved BENIGN HYPERTENSION [I10] PERS HX COLONIC POLYPS [Z86.010] More... More... ESOPHAGEAL REFLUX [K21.9] More... Unspecified transient cerebral ischemia [G45.9] 01/15/2018 More... 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 Parathyroid adenoma [D35.1] 03/04/2017 More... CKD (chronic kidney disease) stage 3, GFR 30-59*03/04/2017 ASHD (arteriosclerotic heart disease) [I25.10] 03/06/2018 NSTEMI (non-ST elevated myocardial infarction) *03/06/2018 More... Elevated PSA [R97.20] 03/11/2019 Prescriptions ordered this encounter Disp Refills Start End ATORVASTATIN 40 MG TABLET 90 t* 3 02/29/2020 Route: ORAL Sig: Take 1 tablet by mouth once daily. For cholesterol. Medications Discontinued During This Encounter atorvastatin (LIPITOR) 40 mg tablet 90 t* 3 02/19/2019 020 Route: ORAL Sig: Take 1 tablet by mouth once daily. For cholesterol. Disc: Reason for discontinue is not on file. Encounter Status:Closed by CRISELDA BRUCE EXOTIC DANCER on 02/29/20 basic metabolic panl on 2020-02-29 Anion gap [Moles/Vol] 9 9-18 mmol/L Normal 02-29-20 20 [facility] ([id number]) Comment: Performed By: #### ALB, BMP, VITD ####[facility] [address] [place] [address] [phone] Calcium [Mass/Vol] 10.3 8.5-10.2 mg/dL High 02-29-2020 [facility] (23920) Comment: Performed By: #### ALB, BMP, VITD ####[facility] [address] [place] [place] [address] [phone] Chloride [Moles/Vol] 106 97-105 mmol/L High 0 [facility] (86895) Comment: Performed By: #### ALB, BMP, VITD ####[facility] [address] [place] [address] [phone] CO2 [Moles/Vol] 25 22-30 mmol/L Normal 02-29-2020 [facility] (66247) Comment: Performed By: #### ALB, BMP, VITD ####[facility] [address] [place] [place] [address] [phone] Creatinine [Mass/Vol] 2.21 0.73-1.22 mg/dL High 02-29-20 [facility] (30049) Comment: Performed By: #### ALB, BMP, VITD ####[facility] [address] [place] [address] [phone] eGFR- Amer. 35 Normal 02-29-2020 [facility] (59892) Comment: Performed By: #### ALB, BMP, VITD ####[facility] [address] [place] [address] [phone] GFR/1.73 sq M predicted among 29 . Normal 02-29-2020 [facility] non-blacks MDRD (S/P/Bld) [Vol (84082) rate/Area] Comment: Result Comment: eGFR (Estima melquiades GFR) Units of measure: mL/min/1.73 meters squared eGFR is derived from the ree xpressed MDRD Study equation using the following parameters: serum creatinine, age, gender and race. The creatinine assay has been calibrated to be traceable to IDMS. An eGFR <60 mL/min/1.73m2 fo r >3 months is consistent with chronic kidney disease. Refer to KDOQI guidelines for clinical interpretation. In patients with unstable re nal function, e.g. those with acute kidney injury, the eGFR may not accurately reflect actual GFR. Performed By: #### ALB, BMP, VITD ####[facility] [address] [place] [address] [phone] Glucose [Mass/Vol] 93 74-99 mg/dL Normal 02-29-2020 [facility] (14145) Comment: Result Comment: The [place] Diabetes Association (ADA) provides guidance for cutoff values for fasting glucose and random glucose. The ADA defines fasting as no caloric intake for at least 8 hours. Fas ting plasma glucose results between 100 to 125 mg/dL indicate increased risk for diabetes (prediabetes). Fasting plasma glucose resul ts greater than or equal to 126 mg/dL meet the criteria for diagnosis of diabetes. In the absence of unequivocal hyperglycemia, results should be confirmed by repeat testing. In a patient with classic s ymptoms of hyperglycemia or hyperglycemic crisis, random plasma glucose results greater than or equal to 200 mg/dL meet the criteria for diagnosis of diabetes. Reference: Standards of [facility] in Diabetes 2016, [place] Diabetes Association. Diabetes Care. 2016.39(Suppl 1). Performed By: #### ALB, BMP, VITD ####[place] [address] [place] [place] [address] [phone] Potassium [Moles/Vol] 4.3 3.7-5.1 mmol/L Normal 02-29-20 [facility] ([id number]) Comment: Performed By: #### ALB, BMP, VITD ####[address] [place] [address] [phone] Sodium [Moles/Vol] 140 136-144 mmol/L Normal 02-29-2020 [facility] (73008) Comment: Performed By: #### ALB, BMP, VITD ####[place] [address] [place] [address] [phone] Urea nitrogen [Mass/Vol] 42 9-24 mg/dL High 02-28 [facility] (24135) Comment: Performed By: #### ALB, BMP, VITD ####[place] [address] [place] [address] [phone] albumin on Albumin [Mass/Vol] 3.8 3.9-4.9 g/dL Low 02-29-2020 [facility] (70297) Comment: Performed By: #### ALB, BMP, VITD ####[place] [address] [place] [address] [phone] cnpn on 2020-01-12 CNPN Telephone (FAMWS) Normal 01-12-2020 [facility] DURANSHARAN JR ([id number]) 1940 [facility] Date Time Provider Department ([id number]) 01/12/20 CELESTINA PIÑA III During your visit today, we recorded the following informati on about you: Ayesha Simms RN 01/12/2020 2:14 PM Signed Pt's called, verified pt by name and birthdate. P t's wanted to let PCP know pt went to [facility] ER and is being discharged soon Ayesha Piña III MD 01/12/2020 5:04 PM Signed noted Celestina Piña III MD Allergies As of Date: 01/12/2020 Noted Allergy Reaction ACCUPRIL (QUINAPRIL HCL) 07/31/2005 AXID (NIZATIDINE) 07/31/2005 ENTEX PSE (PSEUDOEPHEDRINE-GUAIFE*07/31/2005 LISINOPRIL 11/22/2010 3 - Cough Date Reviewed: 12/01/2019 Reviewed by: Ramesh Barrett Ma - Fully Assessed Reason for Visit: FYI-No Action Needed [265] Reason For Visit History Recorded Prescriptions as of 01/12/2020 Sig: AMLODIPINE 5 MG TABLET Take 1 tablet by mouth once d* AMLODIPINE 10 MG TABLET Take 0.5 tablets by mouth onc* TAMSULOSIN 0.4 MG CAPSULE Take 1 capsule by mouth daily* METOPROLOL TARTRATE 25 MG TAB* Take 1 tablet by mouth twice * HYDROCHLOROTHIAZIDE 25 MG TAB* Take 1 tablet by mouth once d * NITROGLYCERIN 0.4 MG SUBLINGU* Dissolve 1 tablet under the t * ATORVASTATIN 40 MG TABLET Take 1 tablet by mouth once d* CHOLECALCIFEROL (VITAMIN D3) * Take 4,000 Units by mouth onc * ASPIRIN 81 MG TABLET,DELAYED * Take 1 tablet by mouth once d * Problem List As Of Date 01/12/2020 Noted Resolved BENIGN HYPERTENSION [I10] PERS HX COLONIC POLYPS [Z86.010] More... More... ESOPHAGEAL REFLUX [K21.9] More... Unspecified transient cerebral ischemia [G45.9] 01/15/2018 More... 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 Parathyroid adenoma [D35.1] 03/04/2017 More... CKD (chronic kidney disease) stage 3, GFR 30-59*03/04/2017 ASHD (arteriosclerotic heart disease) [I25.10] 03/06/2018 NSTEMI (non-ST elevated myocardial infarction) *03/06/2018 More... Elevated PSA [R97.20] 03/11/2019 Encounter Status:Closed by CELESTINA PIÑA III, MD on 01/12/20 obsolete on 2019-12 OBSOLETE Refill (FAMPWS) Normal 12-23-2019 [facility] SHARAN Montana JR ([id number]) 1940 [facility] Date Time Provider Department ([id number]) 12/23/19 CELESTINA PIÑA III During your visit today, we recorded the following informati on about you: Maeve Rosas LPN 12/23/2019 8:34 AM Signed Patient has been identified by name and date of : Yes Patient phones for refill(s): Pending Prescriptions Disp Refills AMLODIPINE 5 MG TABLET Sig: Take 1 tablet by mouth once daily. Date of last office visit in primary care: 11/05/2019 Last 2 Encounter Wt Readings: Date: Wt: 11/05/2019 86.6 kg (191 lb) 09/24/2019 85.7 kg (189 lb) Previous labs/tests for medication: Blood Pressure: BUN (mg/dL) Date Value 12/02/2019 36 Sodium (mmol/L) Date Value 12/02/2019 142 Last 1 Encounter BP Readings: Date: BP: 11/05/2019 141/69 Please advise. Thank you. Maeve Wakefieldpuramarino [employer] Patient asking for 5 mg tablet since has problems splitting pills Allergies As of Date: 12/23/2019 Noted Allergy Reaction ACCUPRIL (QUINAPRIL HCL) 07/31/2005 AXID (NIZATIDINE) 07/31/2005 ENTEX PSE (PSEUDOEPHEDRINE-GUAIFE*07/31/2005 LISINOPRIL 11/22/2010 3 - Cough Date Reviewed: 12/01/2019 Reviewed by: Ramesh Barrett Ma - Fully Assessed Reason for Visit: Refill Request [94] Order(s):amLODIPine (NORVASC) 5 mg tabletTake 1 tablet by [facility] once daily.Disp: 90 tabletRfl: 3 Prescriptions as of 12/23/2019 Sig: AMLODIPINE 5 MG TABLET Take 1 tablet by mouth once d* AMLODIPINE 10 MG TABLET Take 0.5 tablets by mouth onc* TAMSULOSIN 0.4 MG CAPSULE Take 1 capsule by mouth daily* METOPROLOL TARTRATE 25 MG TAB* Take 1 tablet by mouth twice * HYDROCHLOROTHIAZIDE 25 MG TAB* Take 1 tablet by mouth once d * NITROGLYCERIN 0.4 MG SUBLINGU* Dissolve 1 tablet under the t * ATORVASTATIN 40 MG TABLET Take 1 tablet by mouth once d* CHOLECALCIFEROL (VITAMIN D3) * Take 4,000 Units by mouth onc * ASPIRIN 81 MG TABLET,DELAYED * Take 1 tablet by mouth once d * Problem List As Of Date 12/23/2019 Noted Resolved BENIGN HYPERTENSION [I10] PERS HX COLONIC POLYPS [Z86.010] More... More... ESOPHAGEAL REFLUX [K21.9] More... Unspecified transient cerebral ischemia [G45.9] 01/15/2018 More... 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 Parathyroid adenoma [D35.1] 03/04/2017 More... CKD (chronic kidney disease) stage 3, GFR 30-59*03/04/2017 ASHD (arteriosclerotic heart disease) [I25.10] 03/06/2018 NSTEMI (non-ST elevated myocardial infarction) *03/06/2018 More... Elevated PSA [R97.20] 03/11/2019 Prescriptions ordered this encounter Disp Refills Start End AMLODIPINE 5 MG TABLET 90 t* 3 12/23/2019 Class: [facility] Route: ORAL Sig: Take 1 tablet by mouth once daily. Encounter Status:Closed by CELESTINA PIÑA III, MD on 12/23/19 shaniquan on 2019-12-11 [facility] Normal 12-11-2019 [facility] SHARAN Montana JR ([id number]) 1940 [facility] Date Time Provider Department ([id number]) 12/11/19 CELESTINA PIÑA III During your visit today, we recorded the following informati on about you: Criselda Moreno, RN, RN 12/11/2019 11:52 AM Signed Faxed orders for colonoscopy to Dr Eddie Piña per pt request. Allergies As of Date: 12/11/2019 Noted Allergy Reaction ACCUPRIL (QUINAPRIL HCL) 07/31/2005 AXID (NIZATIDINE) 07/31/2005 ENTEX PSE (PSEUDOEPHEDRINE-GUAIFE*07/31/2005 LISINOPRIL 11/22/2010 3 - Cough Date Reviewed: 12/01/2019 Reviewed by: Ramesh Barrett Ma - Fully Assessed Reason for Visit: Orders Faxed [Other] Prescriptions as of 12/11/2019 Sig: AMLODIPINE 10 MG TABLET Take 0.5 tablets by mouth onc* TAMSULOSIN 0.4 MG CAPSULE Take 1 capsule by mouth daily* METOPROLOL TARTRATE 25 MG TAB* Take 1 tablet by mouth twice * HYDROCHLOROTHIAZIDE 25 MG TAB* Take 1 tablet by mouth once d * NITROGLYCERIN 0.4 MG SUBLINGU* Dissolve 1 tablet under the t * ATORVASTATIN 40 MG TABLET Take 1 tablet by mouth once d* CHOLECALCIFEROL (VITAMIN D3) * Take 4,000 Units by mouth onc * ASPIRIN 81 MG TABLET,DELAYED * Take 1 tablet by mouth once d * Problem List As Of Date 12/11/2019 Noted Resolved BENIGN HYPERTENSION [I10] PERS HX COLONIC POLYPS [Z86.010] More... More... ESOPHAGEAL REFLUX [K21.9] More... Unspecified transient cerebral ischemia [G45.9] 01/15/2018 More... 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 Parathyroid adenoma [D35.1] 03/04/2017 More... CKD (chronic kidney disease) stage 3, GFR 30-59*03/04/2017 ASHD (arteriosclerotic heart disease) [I25.10] 03/06/2018 NSTEMI (non-ST elevated myocardial infarction) *03/06/2018 More... Elevated PSA [R97.20] 03/11/2019 Encounter Status:Closed by CRISELDA MORENO on 12/11/19 cnpn on 2019-12-07 CNPN Telephone (UROLWS) Normal 12-07-2019 [facility] SHARAN Montana JR ([id number]) 1940 [facility] Date Time Provider Department ([id number]) 12/07/19 ELAINA MAYEN) UROLWS During your visit today, we recorded the following informati on about you: Ziggy Padilla Ma 12/07/2019 11:32 AM Signed Elaina Maciel (Pa) [facility] Urology Pool ? Please, notify patient the urine culture was negative Thank you, Elaina Mayen, [facility], [place], PA-C Ziggy Padilla Ma 12/08/2019 8:03 AM Signed [employer] message sent. Ziggy Padilla Ma Allergies As of Date: 12/07/2019 Noted Allergy Reaction ACCUPRIL (QUINAPRIL HCL) 07/31/2005 AXID (NIZATIDINE) 07/31/2005 ENTEX PSE (PSEUDOEPHEDRINE-GUAIFE*07/31/2005 LISINOPRIL 11/22/2010 3 - Cough Date Reviewed: 12/01/2019 Reviewed by: Ramesh Barrett Ma - Fully Assessed Reason for Visit: Results [95] Prescriptions as of 12/07/2019 Sig: AMLODIPINE 10 MG TABLET Take 0.5 tablets by mouth onc* TAMSULOSIN 0.4 MG CAPSULE Take 1 capsule by mouth daily* METOPROLOL TARTRATE 25 MG TAB* Take 1 tablet by mouth twice * HYDROCHLOROTHIAZIDE 25 MG TAB* Take 1 tablet by mouth once d * NITROGLYCERIN 0.4 MG SUBLINGU* Dissolve 1 tablet under the t * ATORVASTATIN 40 MG TABLET Take 1 tablet by mouth once d* CHOLECALCIFEROL (VITAMIN D3) * Take 4,000 Units by mouth onc * ASPIRIN 81 MG TABLET,DELAYED * Take 1 tablet by mouth once d * Problem List As Of Date 12/07/2019 Noted Resolved BENIGN HYPERTENSION [I10] PERS HX COLONIC POLYPS [Z86.010] More... More... ESOPHAGEAL REFLUX [K21.9] More... Unspecified transient cerebral ischemia [G45.9] 01/15/2018 More... 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 Parathyroid adenoma [D35.1] 03/04/2017 More... CKD (chronic kidney disease) stage 3, GFR 30-59*03/04/2017 ASHD (arteriosclerotic heart disease) [I25.10] 03/06/2018 NSTEMI (non-ST elevated myocardial infarction) *03/06/2018 More... Elevated PSA [R97.20] 03/11/2019 Encounter Status:Closed by ZIGGY PADILLA MA on 12/08/19 urine culture on 30-11-23 Bacteria Sp. Request/Comment: - [facility]04-2019 [facility] identified Cx Nom Culture Result - Normal Urog enital fatoumata: 1,000 - <5,000 CFU/ml --> ABNORMAL ALERT Staphylococcus epidermidis --> ABNORMAL ALERT <1,000 CFU/ml --> ABNORMAL ALERT Streptococcus mitis-oralis group --> ABNORMAL ALERT abnormal Clinic () [facility] ([id number]) Comment: Performed By: #### URCUL ### #[place] [address] [address] [place] [phone] vitamin d 25 hydroxy on 2019-12-02 Vitamin D 25 Hydroxy 50.8 31.0-80.0 ng/mL Normal 0 [facility] ([id number]) Comment: Result Comment: Classificati on of 25 [place] Vitamin D status: Insufficiency/Moderate Defic iency: < or = 30 ng/mL Sufficiency/Optimal Levels: 31 to 80 ng/mL Toxicity: > 100 ng/mL Test performed by chemilumin escent immunoassay. Performed By: #### ALB, BMP, PHOS, PTHI, VITD ####[place] [address] [address] [place] [phone] pth, intact on 2019 PTH, Intact 163 15-65 pg/mL High 12-02-2019 [facility] ([id number]) Comment: Performed By: #### ALB, BMP, PHOS, PTHI, VITD ####[place] [address] [address] [place], [place] [phone] phosphorus on 12-01 Phosphate [Mass/Vol] 2.6 2.7-4.8 mg/dL Low 0 [facility] ([id number]) Comment: Performed By: #### ALB, BMP, PHOS, PTHI, VITD ####[place] [address] [address] [place] [phone] basic metabolic panl on 2019-12-02 Anion gap [Moles/Vol] 13 9-18 mmol/L Normal 12-02-19 20 [facility] ([id number]) Comment: Performed By: #### ALB, BMP, PHOS, PTHI, VITD ####[place] [address] [address], [place] [phone] Calcium [Mass/Vol] 10.7 8.5-10.2 mg/dL High 12-02-2019 [facility] ([id number]) Comment: Performed By: #### ALB, BMP, PHOS, PTHI, VITD ####[facility] [address] [place], [place] [phone] Chloride [Moles/Vol] 104 97-105 mmol/L Normal 0 [facility] ([id number]) Comment: Performed By: #### ALB, BMP, PHOS, PTHI, VITD ####[facility] [address] [place], [place] [phone] CO2 [Moles/Vol] 25 22-30 mmol/L Normal 12-02-2019 [facility] ([id number]) Comment: Performed By: #### ALB, BMP, PHOS, PTHI, VITD ####[facility] [place], [place] [phone] Creatinine [Mass/Vol] 2.04 0.73-1.22 mg/dL High 12-02-19 20 [facility] ([id number]) Comment: Performed By: #### ALB, BMP, PHOS, PTHI, VITD ####[facility] [address] [place], [place] [phone] eGFR- Amer. 39 Normal 12-02-2019 [facility] ([id number]) Comment: Performed By: #### ALB, BMP, PHOS, PTHI, VITD ####[facility] [address] [place], [place] [phone] GFR/1.73 sq M predicted among 32 . Normal 12-02-2019 [facility] non-blacks MDRD (S/P/Bld) [Vol (24497) rate/Area] Comment: Result Comment: eGFR (Estima melquiades GFR) Units of measure: mL/min/1.73 meters squared eGFR is derived from the ree xpressed MDRD Study equation using the following parameters: serum creatinine, age, gender and race. The creatinine assay has been calibrated to be traceable to IDMS. An eGFR <60 mL/min/1.73m2 fo r >3 months is consistent with chronic kidney disease. Refer to KDOQI guidelines for clinical interpretation. In patients with unstable re nal function, e.g. those with acute kidney injury, the eGFR may not accurately reflect actual GFR. Performed By: #### ALB, BMP, PHOS, PTHI, VITD ####[facility] [address] [place], [place] [phone] Glucose [Mass/Vol] 93 74-99 mg/dL Normal 12-02-2019 [facility] ([id number]) Comment: Result Comment: The [place] Diabetes Association (ADA) provides guidance for cutoff values for fasting glucose and random glucose. The ADA defines fasting as no caloric intake for at least 8 hours. Fas ting plasma glucose results between 100 to 125 mg/dL indicate increased risk for diabetes (prediabetes). Fasting plasma glucose resul ts greater than or equal to 126 mg/dL meet the criteria for diagnosis of diabetes. In the absence of unequivocal hyperglycemia, results should be confirmed by repeat testing. In a patient with classic s ymptoms of hyperglycemia or hyperglycemic crisis, random plasma glucose results greater than or equal to 200 mg/dL meet the criteria for diagnosis of diabetes. Reference: Standards of [facility] Care in Diabetes 2016, [place] Diabetes Association. Diabetes Care. 2016.39(Suppl 1). Performed By: #### ALB, BMP, PHOS, PTHI, VITD ####[facility] [address] [place], [place] [phone] Potassium [Moles/Vol] 4.2 3.7-5.1 mmol/L Normal 12-02-19 [facility] ([id number]) Comment: Performed By: #### ALB, BMP, PHOS, PTHI, VITD ####[facility] [address] [place], [place] [phone] Sodium [Moles/Vol] 142 136-144 mmol/L Normal 12-02-2019 [facility] ([id number]) Comment: Performed By: #### ALB, BMP, PHOS, PTHI, VITD ####[facility] [address] [place], [place] [phone] Urea nitrogen [Mass/Vol] 36 9-24 mg/dL High 12-01 [facility] ([id number]) Comment: Performed By: #### ALB, BMP, PHOS, PTHI, VITD ####[facility] [address] [place], [place] [phone] albumin on Albumin [Mass/Vol] 4.0 3.9-4.9 g/dL Normal 12-02-2019 [facility] ([id number]) Comment: Performed By: #### ALB, BMP, PHOS, PTHI, VITD ####[facility] [address] [place], [place] [phone] history physical on 2019-12-01 HISTORY HNO ID: [id number] Normal 12-01-2019 [facility] PHYSICAL Author: Abran Jack [facility] Service: ? ([id number]) Author Type: Physician Type: HANDP Filed: 12/01/2019 1:56 PM Note Text: Today's visit was done virtually. Patient consented to encou nter being done as a Virtual Visit. Patient's name and date of we re verified for identification during this visit. Mr. Duran is a 78 year old male referred by self for parathyroid - has h/o right inferior parathyroidectomy in at [facility] (final path was hyperplastic parathyroid, calcium was 10.7, normalized after surgery), has h/o CAD, HTN, CKD III, BPH Overall feels well, wanted to discuss his parathyroid issue, not getting the calcium from my bones. Energy loss: No Wt change: No Fractures: No Loss of Height: maybe lost 1.5 inches over the years Joint/bone pain: No N/V: No Abdominal pain: No Back pain: can be tired or sore if active, nothing new BM change: was constipated last week but back to normal now Kidney stones: once in the 1960s Mental status/mood change: No Polydypsia/polyuria: had bladder infection recently, finishi ng 10 day course of antibiotics Hydration: 1.5 glasses of water Calcium supplement: No, stopped a long time ago Vitamin D: 4,000u/day for at least the last year Bisphosphonate: No Other supplements: No Family h/o high calcium or kidney stones: No All other Review of Systems reviewed and are negative. amLODIPine (NORVASC) 10 mg tablet, Take 0.5 tablets by mouth once daily., Disp: 30 tablet, Rfl: 12 tamsulosin ER (FLOMAX) 0.4 mg, Take 1 capsule by mouth daily at bedtime., Disp: 30 capsule, Rfl: 11 metoprolol tartrate, short acting, (LOPRESSOR) 25 mg tablet, Take 1 tablet by mouth twice daily., Disp: 180 tablet, Rfl: 3 hydroCHLOROthiazide (HYDRODIURIL, ESIDRIX) 25 mg tablet, Bob e 1 tablet by mouth once daily., Disp: 90 tablet, Rfl: 3 nitroglycerin sublingual (NITROSTAT) 0.4 mg SL tablet, Disso lve 1 tablet under the tongue every 5 minutes as needed., Disp: 25 Bottle of 25, Rfl: 0 atorvastatin (LIPITOR) 40 mg tablet, Take 1 tablet by mouth once daily. For cholesterol., Disp: 90 tablet, Rfl: 3 cholecalciferol, vitamin D3, 4,000 unit cap, Take 4,000 Unit s by mouth once daily., Disp: , Rfl: 0 aspirin, enteric coated (ADULT LOW DOSE ASPIRIN) 81 mg EC ta blet, Take 1 tablet by mouth once daily., Disp: , Rfl: 0 PAST MEDICAL HISTORY Diagnosis Date - Anemia 10/15/2013 - Benign essential tremor 07/03/2010 - CAD in [place] artery - CKD (chronic kidney disease) stage 3, GFR 30-59 ml/min (HC C) 03/04/2017 - Diaphragmatic hernia without mention of obstruction or [facility] Hiatal hernia - Dyslipidemia - Elevated PSA 03/11/2019 - Esophageal reflux Gastroesophageal reflux - Esophagitis, unspecified - Essential hypertension, benign - Family history of malignant neoplasm of gastrointestinal t ract - Hyperlipidemia LDL goal < 100 09/03/2013 - Hyperparathyroidism (HCC) 03/04/2017 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: 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 - 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 deficiency (HCC) 2013 - Hyperparathyroidism, primary (HCC) 05/27/13 - Mild renal insufficiency 10/15/2013 - NSTEMI (non-ST elevated myocardial infarction) (HCC) 201709/06/14-- stent - Overweight (BMI 25.0-29.9) - Parathyroid adenoma 05/27/13 - Parathyroid adenoma 03/04/2017 parathyroidectomy 05/27/13 - Personal history of colonic polyps Colon polyps - TIA (transient ischemic attack) 06/2010 - Ulcer of esophagus without bleeding - Unspecified transient cerebral ischemia WITH HEMIPHORESIS - Vitamin D deficiency 10/15/2013 FAMILY HISTORY Problem Relation Age of Onset - Colon Cancer Mother - Colon Cancer Father - Arthritis Mother - Heart Father [place] * 2 - Prostate Cancer Brother - Hypertension Brother - None Brother Social History Tobacco Use - Smoking status: Former Smoker - Smokeless tobacco: Never Used - Tobacco comment: quit 1976 Substance Use Topics - Alcohol use: Yes Comment: socially - Drug use: No Lives with , retired, no tobacco or EtOH PE: There were no vitals taken for this visit. Last 3 Encounter Wt Readings: Date: Wt: 11/05/2019 86.6 kg (191 lb) 09/24/2019 85.7 kg (189 lb) 07/03/2019 85.7 kg (189 lb) Gen - NAD, comfortable, pleasant Neck - No visible goiter or nodules Neuro - alert/oriented and answering questions appropriately Component Latest Ref Rng AND Units 06/22/2015 12/30/201507/201708/21/2017 03/05/2018 03/11/2018 05/19/2018 03/02/2019 09/24/2019 11/05/2019 Protein, Total 6.3 - 8.0 g/dL 7.0 6.7 6.7 6.7 Albumin 3.9 - 4.9 g/dL 3.8 (L) 3.8 (L) 3.9 3.8 (L) Calcium 8.5 - 10.2 mg/dL 9.6 9.6 9.8 9.7 9.5 10.0 10.4 (H) 1 0.5 (H) Bilirubin, Total 0.2 - 1.3 mg/dL 0.8 0.5 0.4 0.4 Alkaline Phosphatase 38 - 113 U/L 64 61 81 89 AST 14 - 40 U/L 25 22 24 22 Glucose 74 - 99 mg/dL 96 97 89 93 90 93 96 93 101 (H) BUN 9 - 24 mg/dL 26 (H) 37 (H) 37 (H) 35 (H) 38 (H) 36 (H) 4 1 (H) 40 (H) Creatinine 0.73 - 1.22 mg/dL 1.46 (H) 1.58 (H) 1.71 (H) 1.72 (H) 1.73 (H) 1.79 (A) 1.88 (H) 2.12 (H) 2.13 (H) Sodium 136 - 144 mmol/L 141 141 139 141 140 141 142 143 141 Potassium 3.7 - 5.1 mmol/L 5.1 (H) 4.6 5.0 4.8 4.8 4.7 4.7 4 .6 4.4 Chloride 97 - 105 mmol/L 103 103 102 102 104 107 105 104 103 CO2 22 - 30 mmol/L 22 (L) 28 22 26 26 24 27 24 Anion Gap 9 - 18 mmol/L 16 (H) 10 15 13 10 6 13 12 14 ALT 10 - 54 U/L 13 17 12 17 eGFR- 57 52 47 47 47 42 37 37 eGFR-All Other Races . 47 43 39 39 39 35 30 30 BICARBONATE 28.0 Urea Nitrogen 6 - 20 mg/dL 34 (A) GFR mL/MIN 39 GFR AFR AMER mL/MIN 48 Calcium 8.8 - 10.5 MG/DL 9.3 PTH, Intact 15 - 65 pg/mL 94 (H) 97 (H) 112 (H) 135 (H) 118 (H) 154 (H) Vitamin D 25 Hydroxy 31.0 - 80.0 ng/mL 43.8 59.5 54.8 Calcium, 24 Hr Urine 100 - 300 mg/24 hr <13.6 (L) Parathyroid scan 10/06/19: The 3 hour I-123 neck uptake is 2.2% (normal range, 5-15%). The I-123 images demonstrate homogeneous uptake of activity by the thyroid, without focal thyroid abnormalities identified. SPECT images demonstrate a small focus of residual post-subt raction sestamibi activity in the left lower neck. Coregistration of SPECT with CT images demonstrate that this activity is associated with a 7 mm soft tissue nodule arising posterior to the lower pole of the lef t thyroid lobe and extending inferiorly along the left paratracheal re gion (fused image #32). ?These findings are consistent with the site of a hypervascular parathyroid lesion. No other areas of abnormal residual post-subtraction sestami bi activity are seen to suggest other possible sites for abnormal parath yroid tissue. CT images demonstrate diffuse osteopenia and age-related deg enerative changes of the imaged portions of the skeleton. Sharan was seen today for thyroid problem. Diagnoses and all orders for this visit: Hyperparathyroidism (HCC) -diagnosis of primary hyperparathyroidism currently not cert ain, had very low 24 hr urine calcium in 02/26 though serum calcium was nor mal at the time; currently has had mildly elevated calcium for last yea r with elevated PTH which could be due to PHPT, but he also has sec ondary hyperparathyroidism due to CKD, may have component of both - of note his parathyroidectomy in 2012 showed hyperplastic parathyroid wh ich would be c/w secondary parathyroid hyperplasia in setting of CKD -even if PHPT present, his only potential surgical indicatio n would be CKD (unless DEXA reveals osteoporosis) however this is also like ly due to other comorbidities, and given his age and comorbidities wou ld be reluctant to pursue surgery for PHPT as risks would likely o utweigh benefits at this point -check labs for further evaluation - PTH, BMP, Alb, Phos, an d Vitamin D (excess Vitamin D supplement may also be contributing to his recent mild hypercalcemia and worsening renal function, though PTH would have been expected to decrease if this were the case) -check DEXA scan to evaluate bone density - if osteoporosis present would still likely favor medical management of osteoporosis over s urgical treatment of PHPT - DXA-AXIAL SKELETON; Future - PHOSPHORUS INORGANIC; Future - ALBUMIN BLD; Future - BASIC METABOLIC PNL; Future - VITAMIN D 25 HYDROXY; Future - PTH INTACT BLD; Future F/u 6 months The assessment and benefits/risks of the plan were discussed with the patient who expressed understanding and was agreeable to eliza t which is noted above. I spent 30 minutes with the patient and more than 50% was sp ent on counseling/coordination of care. radha on 2019-11-09 CNPN Telephone (URON) Normal 11-09-2019 [id number] 1940 [facility] Date Time Provider Department ([id number]) 11/09/19 ELAINA MAYEN) JOAN During your visit today, we recorded the following informati on about you: JONNA Hernandez 11/09/2019 12:20 PM Signed Please, notify patient the urine culture was positive Treatment e-scripted: Bactrim x 10 days And will need a 2 week post-treatment urine culture ( orders are in) Thank you, Elaina Mayen, MPAS, MT, JOVITA Gaytan LPN 11/09/2019 3:29 PM Signed Patient notified and voices understanding. Allergies As of Date: 11/09/2019 Noted Allergy Reaction ACCUPRIL (QUINAPRIL HCL) 07/31/2005 AXID (NIZATIDINE) 07/31/2005 ENTEX PSE (PSEUDOEPHEDRINE-GUAIFE*07/31/2005 LISINOPRIL 11/22/2010 3 - Cough Date Reviewed: 11/05/2019 Reviewed by: Edita ([facility]) CLIF De Oliveira - Fully Assessed Reason for Visit: Results, Lab [1201] Primary Visit Diagnosis:Dysuria [R30.0] Order(s):sulfamethoxazole-trimethoprim (BACTRIM DS) 800-160 mg per tabletTake 1 tablet by mouth twice daily for 10 days.Disp: 20 tabletRfl : 0 URINE CULTURE [SQURCUL] Order #: [id number] FUTURE Prescriptions as of 11/09/2019 Sig: SULFAMETHOXAZOLE 800 MG-TRIME* Take 1 tablet by mouth twice * AMLODIPINE 10 MG TABLET Take 0.5 tablets by mouth onc* TAMSULOSIN 0.4 MG CAPSULE Take 1 capsule by mouth daily* METOPROLOL TARTRATE 25 MG TAB* Take 1 tablet by mouth twice * HYDROCHLOROTHIAZIDE 25 MG TAB* Take 1 tablet by mouth once d * NITROGLYCERIN 0.4 MG SUBLINGU* Dissolve 1 tablet under the t * ATORVASTATIN 40 MG TABLET Take 1 tablet by mouth once d* CHOLECALCIFEROL (VITAMIN D3) * Take 4,000 Units by mouth onc * ASPIRIN 81 MG TABLET,DELAYED * Take 1 tablet by mouth once d * Problem List As Of Date 11/09/2019 Noted Resolved BENIGN HYPERTENSION [I10] PERS HX COLONIC POLYPS [Z86.010] More... More... ESOPHAGEAL REFLUX [K21.9] More... Unspecified transient cerebral ischemia [G45.9] 01/15/2018 More... 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 Parathyroid adenoma [D35.1] 03/04/2017 More... CKD (chronic kidney disease) stage 3, GFR 30-59*03/04/2017 ASHD (arteriosclerotic heart disease) [I25.10] 03/06/2018 NSTEMI (non-ST elevated myocardial infarction) *03/06/2018 More... Elevated PSA [R97.20] 03/11/2019 Prescriptions ordered this encounter Disp Refills Start End SULFAMETHOXAZOLE 800 MG-TRIMETHOPRIM* 20 t* 0 11/09/201904/2020 Route: ORAL Sig: Take 1 tablet by mouth twice daily for 10 days. Encounter Status:Closed by ELAINA MAYEN PA-C on 11/09/19 urine culture on 29-10-26 Bacteria Sp. Request/Comment: - Pre-dose serum. OPERATIVE STERI LIZATION Critically 11-06-2019 [facility] Cx Culture Result - 1,000 - <5, 000 CFU/ml Proteus mirabilis --> ABNORMAL ALERT Normal Urogenital fatoumata: --> ABNORMAL ALERT <1,000 CFU/ml --> ABNORMAL ALERT Streptococcus mitis-oralis group --> ABNORMAL ALERT abnormal Clinic Nom (U) ORGANISM: Proteus mirabilis Duff METHOD: Minimum inhibitory concentration(Vitek) (53733) Antibiotic Interp JENIFFER Status Ampicillin SUSCEPTIBLE <=2 F Gentamicin SUSCEPTIBLE <=1 F Trimeth sulfameth SUSCEPTIBLE <=20 F Cefazolin RESISTANT >=64 F Ciprofloxacin SUSCEPTIBLE <=0.25 F Nitrofurantoin RESISTANT 128 F Cefepime SUSCEPTIBLE <=1 F Piperacillin/Tazobac SUSCEPTIBLE <=4 F Ampicillin Sulbact SUSCEPTIBLE <=2 F Ceftriaxone SUSCEPTIBLE <=1 F Meropenem SUSCEPTIBLE <=0.25 F Ertapenem SUSCEPTIBLE <=0.5 F Comment: Performed By: #### URCUL ### #[facility] [address] [place], [place] [phone]- [phone] progress on 2019-10 PROGRESS HNO ID: [id number] Normal 11-06-2019 [facility] Author: Elaina Alves) Melina Bill ([id number]) Service: ? Author Type: Physician Cardroom Hand Type: Progress Notes Filed: 11/12/2019 12:34 PM Note Text: DISTANCE HEALTH VISIT This Team Access Model visit is a phone encounter. It requir ed patient-provider interaction for the medical decision making as documented below. Sharan Duran JR is a 78 year old male seen for BPH Frequency DANDN every 1 hour On Flomax now last night was first time taking Never KARIME and PSA HISTORY REVIEWED (electronic chart updated): - medical history - medications - allergies - tests: UA and Urine Culture were sent REVIEW OF SYSTEMS: GENERAL: feeling well without fatigue, no recent change in w eight, no fever All ROS reviewed with patient, no change PHYSICAL EXAMINATION: VIDEO EXAM: (if done, performed via video enabled technology ) No exam performed ASSESSMENT/ PLAN: (R35.0) Urine frequency (primary encounter diagnosis) (N40.1, N13.8) 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 Urine frequency - ICD9: 788.41, ICD10: R35.0 (primary lora gnosis) 2. BPH with obstruction/lower urinary tract symptoms - ICD9: 600.01, 599.69, ICD10: N40.1, N13.8 > Need to Check Urine Culture if positive it is a cause for his PSA to be elevated If positive then we will treat the UTI and recheck his PSA a few months after > 3 month Telemedicine Visit (Virtual or Phone) for follow u p on UTI and PSA > 6 month in person visit with PSA prior (Apr 2020) > AVS printed, patient portion mailed to patient as a remind er web site administrator portion filed so follow-up can be set-up once COVI D19 precautions have ended. I spent approximately 40 minutes in this Telemedicine visit, with more than 50% of the time devoted to patient discussion, counseli ng, review of records and/or coordination of care. Elaina Mayen, JAMSHIDS, MT, PA-C cnov on 2019-11-06 CNOV Office Visit (UROLWS) Normal 11-06-[address] [place] [address] Clinic SHARAN DURAN JR ([id number]) 1940 [facility] Date Time Provider Department ([id number]) 11/06/19 10:30 AM ELAINA MAYEN (JONNA) UROLWS During your visit today, we recorded the following informati on about you: JONNA Hernandez 11/12/2019 12:34 PM Signed DISTANCE HEALTH VISIT This Team Access Model visit is a phone encounter. It requir ed patient-provider interaction for the medical decision making as documented below. Sharan Duran JR is a 78 year old male seen for BPH Frequency DANDN every 1 hour On Flomax now last night was first time taking Never KARIME and PSA HISTORY REVIEWED (electronic chart updated): - medical history - medications - allergies - tests: UA and Urine Culture were sent REVIEW OF SYSTEMS: GENERAL: feeling well without fatigue, no recent change in weight, no fever All ROS reviewed with patient, no change PHYSICAL EXAMINATION: VIDEO EXAM: (if done, performed via video enabled technology ) No exam performed ASSESSMENT/ PLAN: (R35.0) Urine frequency (primary encounter diagnosis) (N40.1, N13.8) 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 Urine frequency - ICD9: 788.41, ICD10: R35.0 (primary olra gnosis) 2. BPH with obstruction/lower urinary tract symptoms - ICD9: 600.01, 599.69, ICD10: N40.1, N13.8 > Need to Check Urine Culture if positive it is a cause for his PSA to be elevated If positive then we will treat the UTI and reche ck his PSA a few months after > 3 month Telemedicine Visit (Virtual or Phone) for fo llow up on UTI and PSA > 6 month in person visit with PSA prior (Apr 2020) > AVS printed, patient portion mailed to patient as a remind er web site administrator portion filed so follow-up can be set-up once [place] VID19 precautions have ended. I spent approximately 40 min utes in this Telemedicine visit, with more than 50% of the time devoted to patie nt discussion, counseling, review of records and/or coordination of care. Elaina Mayen, MPAS, MT, PA-C Referring Provider: CELESTINA PIÑA III [[id number]] Allergies As of Date: 11/06/2019 Noted Allergy Reaction ACCUPRIL (QUINAPRIL HCL) 07/31/2005 AXID (NIZATIDINE) 07/31/2005 ENTEX PSE (PSEUDOEPHEDRINE-GUAIFE*07/31/2005 LISINOPRIL 11/22/2010 3 - Cough Date Reviewed: 11/05/2019 Reviewed by: Edita ([facility]) CLIF De Oliveira - Fully Assessed Primary Visit Diagnosis:Urine frequency [R35.0] Other Visit Diagnosis: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, N13.8] Order(s):URINE CULTURE [SQURCUL] Order #: [id number] FUTURE CONSULT TO UROLOGY [9041] Order #: [id number]: 1 Prescriptions as of 11/06/2019 Sig: AMLODIPINE 10 MG TABLET Take 0.5 tablets by mouth onc* TAMSULOSIN 0.4 MG CAPSULE Take 1 capsule by mouth daily* METOPROLOL TARTRATE 25 MG TAB* Take 1 tablet by mouth twice * HYDROCHLOROTHIAZIDE 25 MG TAB* Take 1 tablet by mouth once d * NITROGLYCERIN 0.4 MG SUBLINGU* Dissolve 1 tablet under the t * ATORVASTATIN 40 MG TABLET Take 1 tablet by mouth once d* CHOLECALCIFEROL (VITAMIN D3) * Take 4,000 Units by mouth onc * ASPIRIN 81 MG TABLET,DELAYED * Take 1 tablet by mouth once d * Problem List As Of Date 11/06/2019 Noted Resolved BENIGN HYPERTENSION [I10] PERS HX COLONIC POLYPS [Z86.010] More... More... ESOPHAGEAL REFLUX [K21.9] More... Unspecified transient cerebral ischemia [G45.9] 01/15/2018 More... 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 Parathyroid adenoma [D35.1] 03/04/2017 More... CKD (chronic kidney disease) stage 3, GFR 30-59*03/04/2017 ASHD (arteriosclerotic heart disease) [I25.10] 03/06/2018 NSTEMI (non-ST elevated myocardial infarction) *03/06/2018 More... Elevated PSA [R97.20] 03/11/2019 Follow-up and Disposition History Recorded Encounter Status:Closed by ELAINA MAYEN PA-C on 11/12/19 urinalysis with microscopic on 2019-11-05 Bilirubin, Urine Negative Negative Normal 11-05-2019 [facility] ([id number]) Comment: Performed By: #### UAWMIC ## ##[facility] [address] [place], [place] [phone]- [phone] Clarity (U) Clear Clear Normal 11-05-2019 [facility] (85305) Comment: Performed By: #### UAWMIC ## ##[facility] [address], [place] [phone]- [phone] Color (U) Light Yellow Yellow Critically abnormal 020 [facility] (86593) Comment: Performed By: #### UAWMIC ## ##[facility], [place] [phone]- [phone] Comments SEE COMMENT Normal 11-05-2019 [facility] (76848) Comment: Result Comment: N/A Performed By: #### UAWMIC ## ##[place] [address], [place] [phone]- [phone] Glucose Ql (U) Negative Negative Normal 11-05-2019 [facility] (58124) Comment: Performed By: #### UAWMIC ## ##[place] [address] [address], [place] [phone]- [phone] Hemoglobin/Blood,Ur Negative Negative Normal 11-05-2019 [facility] (32794) Comment: Performed By: #### UAWMIC ## ##[place] [address] [address], [place] [phone]- [phone] Ketones Ql (U) Negative Negative Normal 11-05-2019 [facility] (91940) Comment: Performed By: #### UAWMIC ## ##[place] [address] [address], [place] [phone]- [phone] Leukest Trace Negative Critically abnormal 11-05-2019 [facility] (34537) Comment: Performed By: #### UAWMIC ## ##[place] [address], [place] [phone]- [phone] Nitrite Ql (U) Negative Negative Normal 11-05-2019 [facility] (01668) Comment: Performed By: #### UAWMIC ## ##[facility], [place] [phone]- [phone] pH (Bld) 7.0 5.0-8.0 Normal 11-05-2019 [facility] (49267) Comment: Performed By: #### UAWMIC ## ##[place] [address], [place] [phone]- [phone] Protein (U) 2+ Negative mg/dL Critically abnormal 11-05-19 20 [facility] [Mass/Vol] [place]uff (15434) Comment: Performed By: #### UAWMIC ## ##[facility], [place] [phone]- [phone] RBC (U) [#/Vol] 0-3 0-3 Normal 11-05-2019 [facility] (59523) Comment: Performed By: #### UAWMIC ## ##[place] [address] [address], [place] [phone]- [phone] Specific Peel, Ur 1.016 1.005-1.030 Normal 020 [facility] (58010) Comment: Performed By: #### UAWMIC ## ##[place] [address] [address], [place] [phone]- [phone] Urine Jeniffer Comment SEE COMMENT Normal 11-05-2019 [facility] (43673) Comment: Result Comment: N/A Performed By: #### UAWMIC ## ##[facility], [place] [phone]- [phone] Urobilinogen Qn (U) Negative Negative Normal 11-05-2019 [facility] (48777) Comment: Performed By: #### UAWMIC ## ##[facility] [address], [place] [phone] WBC (Bld) [#/Vol] 6-10 0-5 Critically abnormal [facility] (83436) Comment: Performed By: #### UAWMIC ## ##[facility] [address], [place] [phone]- [phone] progress on 2019-10 PROGRESS HNO ID: [id number] Normal 11-05-2019 [facility] Author: Celestina Piña III [place] ([id number]) Service: ? Author Type: Physician Type: Progress Notes Filed: 11/05/2019 4:21 PM Note Text: SUBJECTIVE: This is a 78 year old male that is here today fo r edema both lower legs distal to mid-shins starting 1 wk ago. No chest p ain, dyspnea, WILEY. No new meds except for stool softener for past 3 wks. Nocturia 2-3 . Often has to void q 45 min in AMs prior to mo rning meds. Weak urine stream and urinary urgency. Occasional dysuria. P SA 6.28 25% free (07/13/19) Known CKD III with GFR 30 in Sep 2019 [35 in 02/27] Current Outpatient Medications on File Prior to Visit Medication Sig - metoprolol tartrate, short acting, (LOPRESSOR) 25 mg table t Take 1 tablet by mouth twice daily. - hydroCHLOROthiazide (HYDRODIURIL, ESIDRIX) 25 mg tablet Ta ke 1 tablet by mouth once daily. - doxazosin (CARDURA) 4 mg tablet Take 1 tablet by mouth justino ly at bedtime. - amLODIPine (NORVASC) 10 mg tablet Take 1 tablet by mouth o nce daily. - nitroglycerin sublingual (NITROSTAT) 0.4 mg SL tablet Diss olve 1 tablet under the tongue every 5 minutes as needed. - atorvastatin (LIPITOR) 40 mg tablet Take 1 tablet by mouth once daily. For cholesterol. - cholecalciferol, vitamin D3, 4,000 unit cap Take 4,000 Uni ts by mouth once daily. - aspirin, enteric coated (ADULT LOW DOSE ASPIRIN) 81 mg EC tablet Take 1 tablet by mouth once daily. No current facility-administered medications on file prior t o visit. PAST MEDICAL HISTORY Diagnosis Date - Anemia 10/15/2013 - Benign essential tremor 07/03/2010 - CAD in [place] artery - CKD (chronic kidney disease) stage 3, GFR 30-59 ml/min (HC C) 03/04/2017 - Diaphragmatic hernia without mention of obstruction or [facility] Hiatal hernia - Dyslipidemia - Elevated PSA 03/11/2019 - Esophageal reflux Gastroesophageal reflux - Esophagitis, unspecified - Essential hypertension, benign - Family history of malignant neoplasm of gastrointestinal t ract - Hyperlipidemia LDL goal < 100 09/03/2013 - Hyperparathyroidism (HCC) 03/04/2017 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: 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 - 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 deficiency ([facility]) 2013 - Hyperparathyroidism, primary ([facility]) 05/27/13 - Mild renal insufficiency 10/15/2013 - NSTEMI (non-ST elevated myocardial infarction) ([facility]) 201709/06/14-- stent - Overweight (BMI 25.0-29.9) - Parathyroid adenoma 05/27/13 - Parathyroid adenoma 03/04/2017 parathyroidectomy 05/27/13 - Personal history of colonic polyps Colon polyps - TIA (transient ischemic attack) 06/2010 - Ulcer of esophagus without bleeding - Unspecified transient cerebral ischemia WITH HEMIPHORESIS - Vitamin D deficiency 10/15/2013 FAMILY HISTORY Problem Relation Age of Onset - Colon Cancer Mother - Colon Cancer Father - Arthritis Mother - Heart Father [place] * 2 - Prostate Cancer Brother - Hypertension Brother - None Brother Social History Tobacco Use - Smoking status: Former Smoker - Smokeless tobacco: Never Used - Tobacco comment: quit 1975 Substance Use Topics - Alcohol use: Yes Comment: socially - Drug use: No BP 141/69 Pulse 60 Resp 16 Wt 86.6 kg (191 lb) BMI 2 9.47 kg/m? OBJECTIVE: APPEARANCE Well appearing, alert, in no acute distress, well -hydrated, well nourished. NECK Supple, no adenopathy; thyroid symmetric, normal size, no bruits HEART RRR with normal S1 and S2, no murmurs, no gallops, no JVD appreciated LUNG clear to auscultation ABDOMEN soft, non-tender, non-distended, without organomegal y or palpable masses, no tenderness to palpation EXTREMITIES Extremities normal, No deformities, No skin disc oloration, No edema, Normal pulses bilaterally. and minimal ankle edema w/ o pitting lab Results for SHARAN DURAN JR ( ) as of 11/05/2019 16:13 Ref. Range 09/24/2019 08:38 Sodium Latest Ref Range: 136 - 144 mmol/L 143 Potassium Latest Ref Range: 3.7 - 5.1 mmol/L 4.6 Chloride Latest Ref Range: 97 - 105 mmol/L 104 CO2 Latest Ref Range: 22 - 30 mmol/L 27 BUN Latest Ref Range: 9 - 24 mg/dL 41 (H) Creatinine Latest Ref Range: 0.73 - 1.22 mg/dL 2.12 (H) Glucose Latest Ref Range: 74 - 99 mg/dL 93 Protein, Total Latest Ref Range: 6.3 - 8.0 g/dL 6.7 Calcium Latest Ref Range: 8.5 - 10.2 mg/dL 10.4 (H) Albumin Latest Ref Range: 3.9 - 4.9 g/dL 3.9 Bilirubin, Total Latest Ref Range: 0.2 - 1.3 mg/dL 0.4 Alkaline Phosphatase Latest Ref Range: 38 - 113 U/L 81 ALT Latest Ref Range: 10 - 54 U/L 12 AST Latest Ref Range: 14 - 40 U/L 24 Anion Gap Latest Ref Range: 9 - 18 mmol/L 12 eGFR- Unknown 37 eGFR-All Other Races Latest Units: . 30 Hematocrit Latest Ref Range: 39.0 - 51.0 % 37.9 (L) Total Cholesterol, Nonfasting Latest Ref Range: <200 mg/dL 1 40 Triglycerides, Nonfasting Latest Ref Range: <150 mg/dL 34 HDL Cholesterol, Nonfasting Latest Ref Range: >39 mg/dL 68 LDL Cholesterol, Nonfasting Latest Ref Range: <100 mg/dL 65 Non HDL Cholesterol, Nonfasting Latest Ref Range: <130 mg/dL 72 VLDL Cholesterol, Nonfasting Latest Ref Range: <30 mg/dL 7 Total Chol/HDL Ratio, Nonfasting Latest Ref Range: <5.10 mg/ dL 2.06 LDL/HDL Ratio, Nonfasting Latest Ref Range: <2.54 mg/dL 0.96 PTH, Intact Latest Ref Range: 15 - 65 pg/mL 154 (H) WBC Latest Ref Range: 3.70 - 11.00 k/uL 5.95 RBC Latest Ref Range: 4.20 - 6.00 m/uL 3.92 (L) Hemoglobin Latest Ref Range: 13.0 - 17.0 g/dL 12.1 (L) Platelet Count Latest Ref Range: 150 - 400 k/uL 154 MCV Latest Ref Range: 80.0 - 100.0 fL 96.7 MCH Latest Ref Range: 26.0 - 34.0 pG 30.9 MCHC Latest Ref Range: 30.5 - 36.0 g/dL 31.9 MPV Latest Ref Range: 9.0 - 12.7 fL 11.8 RDW-CV Latest Ref Range: 11.5 - 15.0 % 13.1 Absolute nRBC Latest Ref Range: <0.01 k/uL <0.01 ASSESSMENT: 1. fluctuating peripheral edema-due to venous insufficiency, amlodipine, and possibly progressive kidney failure due to BPH and bladd er outlet obstruction 2. ASHD--no angina 3. hypertension--at goal PLAN: CBC, CMP, UA discontinue cardura due to lack of benefit start tamsulosin 0.4 mg every evening for bladder emptying reduce amlodipine 5 mg daily for BP and observe for reductio n in leg swelling same other medications urology referral Celestina Piña III MD comp metabolic panel on 2019-11-05 Albumin [Mass/Vol] 3.8 3.9-4.9 g/dL Low 11-05-2019 [facility] ([id number]) Comment: Performed By: #### CMP, CBC ####[place] [address] [address], [place] [phone]- [phone] ALP [Catalytic activity/Vol] 89 38-113 U/L Normal 0 11-05-2019 [facility] (31037) Comment: Performed By: #### CMP, CBC ####[facility] [address], [place] [phone]- [phone] ALT [Catalytic activity/Vol] 17 10-54 U/L Normal 0 11-05-2019 [facility] ([id number]) Comment: Performed By: #### CMP, CBC ####[facility] [address], [place] [phone] Anion gap [Moles/Vol] 14 9-18 mmol/L Normal 11-05-19 [facility] (10422) Comment: Performed By: #### CMP, CBC ####[facility], [place] [phone] AST [Catalytic activity/Vol] 22 14-40 U/L Normal 0 11-05-2019 [facility] (67610) Comment: Performed By: #### CMP, CBC ####[facility] [address], [place] [phone]- [phone] Bilirubin [Mass/Vol] 0.4 0.2-1.3 mg/dL Normal 0 [facility] (77051) Comment: Performed By: #### CMP, CBC ####[place] [address], [place] [phone]- [phone] Calcium [Mass/Vol] 10.5 8.5-10.2 mg/dL High 11-05-2019 [facility] (26840) Comment: Performed By: #### CMP, CBC ####[place] [address] [address], [place] [phone]- [phone] Chloride [Moles/Vol] 103 97-105 mmol/L Normal 0 [facility] (40355) Comment: Performed By: #### CMP, CBC ####[place] [address], [place] [phone]- [phone] CO2 [Moles/Vol] 24 22-30 mmol/L Normal 11-05-2019 [facility] (24201) Comment: Performed By: #### CMP, CBC ####[place] [address], [place] [phone]- [phone] Creatinine [Mass/Vol] 2.13 0.73-1.22 mg/dL High 11-05-19 20 [facility] (10414) Comment: Performed By: #### CMP, CBC ####[place] [address], [place] [phone]- [phone] eGFR- Amer. 37 Normal 11-05-2019 [facility] (61206) Comment: Performed By: #### CMP, CBC ####[place] [address] [address], [place] [phone]- [phone] GFR/1.73 sq M predicted among 30 . Normal 11-05-2019 [facility] non-blacks MDRD (S/P/Bld) [Vol (85337) rate/Area] Comment: Result Comment: eGFR (Estima melquiades GFR) Units of measure: mL/min/1.73 meters squared eGFR is derived from the ree xpressed MDRD Study equation using the following parameters: serum creatinine, age, gender and race. The creatinine assay has been calibrated to be traceable to IDMS. An eGFR <60 mL/min/1.73m2 fo r >3 months is consistent with chronic kidney disease. Refer to KDOQI guidelines for clinical interpretation. In patients with unstable re nal function, e.g. those with acute kidney injury, the eGFR may not accurately reflect actual GFR. Performed By: #### CMP, CBC ####[facility], [place] [phone]- [phone] Glucose [Mass/Vol] 101 74-99 mg/dL High 11-05-2019 [facility] (20918) Comment: Result Comment: The [place] [employer] (ADA) provides guidance for cutoff values for fasting glucose and random glucose. The ADA defines fasting as no caloric intake for at least 8 hours. Fas ting plasma glucose results between 100 to 125 mg/dL indicate increased risk for diabetes (prediabetes). Fasting plasma glucose resul ts greater than or equal to 126 mg/dL meet the criteria for diagnosis of diabetes. In the absence of unequivocal hyperglycemia, results should be confirmed by repeat testing. In a patient with classic s ymptoms of hyperglycemia or hyperglycemic crisis, random plasma glucose results greater than or equal to 200 mg/dL meet the criteria for diagnosis of diabetes. Reference: Standards of [facility] Care in Diabetes 2016, [employer]. Diabetes Care. 2016.39(Suppl 1). Performed By: #### CMP, CBC ####[facility], [place] [phone] Potassium [Moles/Vol] 4.4 3.7-5.1 mmol/L Normal 11-05-19 20 [facility] ([id number]) Comment: Performed By: #### CMP, CBC ####[address] [phone] Protein [Mass/Vol] 6.7 6.3-8.0 g/dL Normal 11-05-2019 [facility] ([id number]) Comment: Performed By: #### CMP, CBC ####[place] [address] [place], [place] [phone] Sodium [Moles/Vol] 141 136-144 mmol/L Normal 11-05-2019 [facility] ([id number]) Comment: Performed By: #### CMP, CBC ####[place] [address] [place], [place] [phone] Urea nitrogen [Mass/Vol] 40 9-24 mg/dL High 11-04 [facility] ([id number]) Comment: Performed By: #### CMP, CBC ####[facility] [place], [place] [phone]- [phone] cnov on 2019-11-05 [facility] Office Visit (LAB) Normal 11-05-2019 [facility] SHARAN DURAN JR ([id number]) 1940 [facility] Date Time Provider Department ([id number]) 11/05/19 3:20 PM [facility] During your visit today, we recorded the following informati on about you: Celestina Piña III MD 11/06/2019 12:34 PM Signed Sharan, Renal function, calcium, and hemoglobin are stable. Th e other labs are fine. There are some changes in the urine that are probably from t he enlarged prostate and bladder outlet obstruction. Let us see what the urologist recommends and what benefit we get from tamsulosin. Celestina Piña III MD Referring Provider: CELESTINA PIÑA III [[id number]] Allergies As of Date: 11/05/2019 Noted Allergy Reaction ACCUPRIL (QUINAPRIL HCL) 07/31/2005 AXID (NIZATIDINE) 07/31/2005 ENTEX PSE (PSEUDOEPHEDRINE-GUAIFE*07/31/2005 LISINOPRIL 11/22/2010 3 - Cough Date Reviewed: 11/05/2019 [facility] CLIF De Oliveira - Fully Assessed Visit Diagnoses:Essential hypertension, benign [I10] CKD (chronic kidney disease) stage 3, GFR 30-59 ml/min (HCC) [N18.3] Order(s):COMP METABOLIC PANEL [SQCMP] Order #: [id number]. #:[id number] CBC [SQCBC] Order #: [id number]. #:[id number] Prescriptions as of 11/05/2019 Sig: AMLODIPINE 10 MG TABLET Take 0.5 tablets by mouth onc* TAMSULOSIN 0.4 MG CAPSULE Take 1 capsule by mouth daily* METOPROLOL TARTRATE 25 MG TAB* Take 1 tablet by mouth twice * HYDROCHLOROTHIAZIDE 25 MG TAB* Take 1 tablet by mouth once d * NITROGLYCERIN 0.4 MG SUBLINGU* Dissolve 1 tablet under the t * ATORVASTATIN 40 MG TABLET Take 1 tablet by mouth once d* CHOLECALCIFEROL (VITAMIN D3) * Take 4,000 Units by mouth onc * ASPIRIN 81 MG TABLET,DELAYED * Take 1 tablet by mouth once d * Problem List As Of Date 11/05/2019 Noted Resolved BENIGN HYPERTENSION [I10] PERS HX COLONIC POLYPS [Z86.010] More... More... ESOPHAGEAL REFLUX [K21.9] More... Unspecified transient cerebral ischemia [G45.9] 01/15/2018 More... 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 Parathyroid adenoma [D35.1] 03/04/2017 More... CKD (chronic kidney disease) stage 3, GFR 30-59*03/04/2017 ASHD (arteriosclerotic heart disease) [I25.10] 03/06/2018 NSTEMI (non-ST elevated myocardial infarction) *03/06/2018 More... Elevated PSA [R97.20] 03/11/2019 Encounter Status:Closed by CELESTINA PIÑA III, MD on 11/06/19 [facility] Office Visit (FAMPWS) Normal 11-05-[address] [place] [address] [facility] SHARAN DURAN JR ([id number]) 1940 [facility] Date Time Provider Department ([id number]) 11/05/19 2:40 PM [facility] During your visit today, we recorded the following informati on about you: Pulse Respiration Blood pressure Weight 60/minute 16/minute 141/69 86.6 kg Celestina Piña III MD 11/05/2019 4:21 PM Signed SUBJECTIVE: This is a 78 year old male t hat is here today for edema both lower legs distal to mid-shins starting 1 wk ago. No chest pain, d yspnea, WILEY. No new meds except for stool softener for past 3 wks. Nocturia 2-3 . Often has to void q 45 min in AMs prior to mo rning meds. Weak urine stream and urinary urgency. Occasional dysuria. P SA 6.28 25% free (07/13/19) Known CKD III with GFR 30 in Sep 2019 [35 in 02/27] Current Outpatient Medications on File Prior to Visit Medication Sig - metoprolol tartrate, short acting, (LO PRESSOR) 25 mg tablet Take 1 tablet by mouth twice daily. - hydroCHLOROthiazide (HYDRODIURIL, ESIDRIX) 25 mg tablet Ta ke 1 tablet by mouth once daily. - doxazosin (CARDURA) 4 mg tablet Take 1 tablet by mouth justino ly at bedtime. - amLODIPine (NORVASC) 10 mg tablet Take 1 tablet by mouth o nce daily. - nitroglycerin sublingual ( NITROSTAT) 0.4 mg SL tablet Dissolve 1 tablet under the tongue every 5 minutes as needed. - atorvastatin (LIPITOR) 40 mg tablet Take 1 tablet by mouth once daily. For cholesterol. - cholecalciferol, vitamin D3, 4,000 unit cap Take 4,0 00 Units by mouth once daily. - aspirin, enteric coated (ADULT LOW DOSE ASPIRIN) 81 mg EC tablet Take 1 tablet by mouth once daily. No current facility-administered medications on file prior t o visit. PAST MEDICAL HISTORY Diagnosis Date - Anemia 10/15/2013 - Benign essential tremor 07/03/2010 - CAD in [place] artery - CKD (chronic kidney disease) stage 3, GFR 30-59 ml/min (HC C) 03/04/2017 - Diaphragmatic hernia without mention of obstruction or [facility] Hiatal hernia - Dyslipidemia - Elevated PSA 03/11/2019 - Esophageal reflux Gastroesophageal reflux - Esophagitis, unspecified - Essential hypertension, benign - Family history of malignant neoplasm of gastrointestinal t ract - Hyperlipidemia LDL goal < 100 09/03/2013 - Hyperparathyroidism (HCC) 03/04/2017 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: secondary hyp erparathyroidism--?due to CKD III - 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 deficiency ([facility]) 2013 - Hyperparathyroidism, primary ([facility]) 05/27/13 - Mild renal insufficiency 10/15/2013 - NSTEMI (non-ST elevated myocardial infarction) ([facility]) 201709/06/14-- stent - Overweight (BMI 25.0-29.9) - Parathyroid adenoma 05/27/13 - Parathyroid adenoma 03/04/2017 parathyroidectomy 05/27/13 - Personal history of colonic polyps Colon polyps - TIA (transient ischemic attack) 06/2010 - Ulcer of esophagus without bleeding - Unspecified transient cerebral ischemia WITH HEMIPHORESIS - Vitamin D deficiency 10/15/2013 FAMILY HISTORY Problem Relation Age of Onset - Colon Cancer Mother - Colon Cancer Father - Arthritis Mother - Heart Father [place] * 2 - Prostate Cancer Brother - Hypertension Brother - None Brother Social History Tobacco Use - Smoking status: Former Smoker - Smokeless tobacco: Never Used - Tobacco comment: quit 1975 Substance Use Topics - Alcohol use: Yes Comment: socially - Drug use: No BP 141/69 Pulse 60 Resp 16 Wt 86.6 kg (191 lb) BMI 2 9.47 kg/m? OBJECTIVE: APPEARANCE Well appearing, alert, in no acute distress, we ll-hydrated, well nourished. NECK Supple, no adenopathy; thyroid symmetric, normal size, no bruits HEART RRR with normal S1 and S2, no murmurs, no gallops, n o JVD appreciated LUNG clear to auscultation ABDOMEN soft, non-tender, non-distended, without organomegal y or palpable masses, no tenderness to palpation EXTREMITIES Extremities normal, No deformities, No skin disc oloration, No edema, Normal pulses bilaterally. and minimal ankle edema w/ o pitting lab Results for SHARAN DURAN JR ( ) as of 11/05/2019 16:13 Ref. Range 09/24/2019 08:38 Sodium Latest Ref Range: 136 - 144 mmol/L 143 Potassium Latest Ref Range: 3.7 - 5.1 mmol/L 4.6 Chloride Latest Ref Range: 97 - 105 mmol/L 104 CO2 Latest Ref Range: 22 - 30 mmol/L 27 BUN Latest Ref Range: 9 - 24 mg/dL 41 (H) Creatinine Latest Ref Range: 0.73 - 1.22 mg/dL 2.12 (H) Glucose Latest Ref Range: 74 - 99 mg/dL 93 Protein, Total Latest Ref Range: 6.3 - 8.0 g/dL 6.7 Calcium Latest Ref Range: 8.5 - 10.2 mg/dL 10.4 (H) Albumin Latest Ref Range: 3.9 - 4.9 g/dL 3.9 Bilirubin, Total Latest Ref Range: 0.2 - 1.3 mg/dL 0.4 Alkaline Phosphatase Latest Ref Range: 38 - 113 U/L 81 ALT Latest Ref Range: 10 - 54 U/L 12 AST Latest Ref Range: 14 - 40 U/L 24 Anion Gap Latest Ref Range: 9 - 18 mmol/L 12 eGFR- Unknown 37 eGFR-All Other Races Latest Units: . 30 Hematocrit Latest Ref Range: 39.0 - 51.0 % 37.9 (L) Total Cholesterol, Nonfasting Latest Ref Range: <200 mg/dL 1 40 Triglycerides, Nonfasting Latest Ref Range: <150 mg/dL 34 HDL Cholesterol, Nonfasting Latest Ref Range: >39 mg/dL 68 LDL Cholesterol, Nonfasting Latest Ref Range: <100 mg/dL 65 Non HDL Cholesterol, Nonfasting Latest Ref Range: <130 mg/dL 72 VLDL Cholesterol, Nonfasting Latest Ref Range: <30 mg/dL 7 Total Chol/HDL Ratio, Nonfasting Latest Ref Range: <5.10 mg/ dL 2.06 LDL/HDL Ratio, Nonfasting Latest Ref Range: <2.54 mg/dL 0.96 PTH, Intact Latest Ref Range: 15 - 65 pg/mL 154 (H) WBC Latest Ref Range: 3.70 - 11.00 k/uL 5.95 RBC Latest Ref Range: 4.20 - 6.00 m/uL 3.92 (L) Hemoglobin Latest Ref Range: 13.0 - 17.0 g/dL 12.1 (L) Platelet Count Latest Ref Range: 150 - 400 k/uL 154 MCV Latest Ref Range: 80.0 - 100.0 fL 96.7 MCH Latest Ref Range: 26.0 - 34.0 pG 30.9 MCHC Latest Ref Range: 30.5 - 36.0 g/dL 31.9 MPV Latest Ref Range: 9.0 - 12.7 fL 11.8 RDW-CV Latest Ref Range: 11.5 - 15.0 % 13.1 Absolute nRBC Latest Ref Range: <0.01 k/uL <0.01 ASSESSMENT: 1. fluctuating peripheral edema-due to venous insuffic iency, amlodipine, and possibly progressive kidney failure due to BPH a nd bladder outlet obstruction 2. ASHD--no angina 3. hypertension--at goal PLAN: CBC, CMP, UA discontinue cardura due to lack of benefit start tamsulosin 0.4 mg every evening for bladder emptying reduce amlodipine 5 mg daily for BP and observe for reduction in leg swelling same other medications urology referral DIANNE Gamino MD, III MD 11/05/2019 3:06 PM Signed PLAN: CBC, CMP, UA discontinue cardura due to lack of benefit start tamsulosin 0.4 mg every evening for bladder emptying reduce amlodipine 5 mg daily for BP and observe for reduction in leg swelling same other medications urology referral Celestina Piña III MD Referring Provider: CELESTINA PIÑA III [[id number]] Allergies As of Date: 11/05/2019 Noted Allergy Reaction ACCUPRIL (QUINAPRIL HCL) 07/31/2005 AXID (NIZATIDINE) 07/31/2005 ENTEX PSE (PSEUDOEPHEDRINE-GUAIFE*07/31/2005 LISINOPRIL 11/22/2010 3 - Cough Date Reviewed: 11/05/2019 Reviewed by: Edita ([facility]) CLIF De Oliveira - Fully Assessed Reason for Visit: Edema [39] Primary Visit Diagnosis:Peripheral edema [R60.9] Other Visit Diagnoses:Essential hypertension, benign [I10] CKD (chronic kidney disease) stage 3, GFR 30-59 ml/min (HCC) [N18.3] ASHD (arteriosclerotic heart disease) [I25.10] BPH with obstruction/lower urinary tract symptoms [N40.1, N13.8] Order(s):amLODIPine (NORVASC) 10 mg tabletTake 0.5 tablets b y mouth once daily.Disp: 30 tabletRfl: 12 COMP METABOLIC PANEL [SQCMP] Order #: [id number] FUTURE CBC [SQCBC] Order #: [id number] FUTURE URINALYSIS WITH MICROSCOPIC [SQUAWMIC] Order #: [id number] ec. #:[id number] tamsulosin ER (FLOMAX) 0.4 mgTake 1 capsule by mouth daily a t bedtime.Disp: 30 capsuleRfl: 11 CONSULT TO UROLOGY [9041] Order #: [id number]: 1 FUTURE Prescriptions as of 11/05/2019 Sig: AMLODIPINE 10 MG TABLET Take 0.5 tablets by mouth onc* METOPROLOL TARTRATE 25 MG TAB* Take 1 tablet by mouth twice * HYDROCHLOROTHIAZIDE 25 MG TAB* Take 1 tablet by mouth once d * NITROGLYCERIN 0.4 MG SUBLINGU* Dissolve 1 tablet under the t * ATORVASTATIN 40 MG TABLET Take 1 tablet by mouth once d* CHOLECALCIFEROL (VITAMIN D3) * Take 4,000 Units by mouth onc * ASPIRIN 81 MG TABLET,DELAYED * Take 1 tablet by mouth once d * TAMSULOSIN 0.4 MG CAPSULE Take 1 capsule by mouth daily* Medication notes this encounter DOXAZOSIN 4 MG TABLET >> Celestina Piña III MD 11/05/2019 3:04 PM peripheral edema Problem List As Of Date 11/05/2019 Noted Resolved BENIGN HYPERTENSION [I10] PERS HX COLONIC POLYPS [Z86.010] More... More... ESOPHAGEAL REFLUX [K21.9] More... Unspecified transient cerebral ischemia [G45.9] 01/15/2018 More... 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 Parathyroid adenoma [D35.1] 03/04/2017 More... CKD (chronic kidney disease) stage 3, GFR 30-59*03/04/2017 ASHD (arteriosclerotic heart disease) [I25.10] 03/06/2018 NSTEMI (non-ST elevated myocardial infarction) *03/06/2018 More... Elevated PSA [R97.20] 03/11/2019 Other instructions from your clinician: PLAN: CBC, CMP, UA discontinue cardura due to lack of benefit start tamsulosin 0.4 mg every evening for bladder emptying reduce amlodipine 5 mg daily for BP and observe for reductio n in leg swelling same other medications urology referral Celestina Piña III Prescriptions ordered this encounter Disp Refills Start End AMLODIPINE 10 MG TABLET 30 t* 12 11/05/2019 Class: Med Update Cmt: dose increase discontinue losartan Route: ORAL Sig: Take 0.5 tablets by mouth once daily. TAMSULOSIN 0.4 MG CAPSULE 30 c* 11 11/05/2019 Route: ORAL Sig: Take 1 capsule by mouth daily at bedtime. Medications Discontinued During This Encounter doxazosin (CARDURA) 4 mg tablet 90 t* 3 07/28/2019 11/05/2019 Route: ORAL Sig: Take 1 tablet by mouth daily at bedtime. Disc: Clinical Decision amLODIPine (NORVASC) 10 mg tablet 30 t* 12 05/18/2019 11/05/19 Class: Print RX Cmt: dose increase discontinue losartan Route: ORAL Sig: Take 1 tablet by mouth once daily. Disc: Adjust Sig - Block E-Cancel Encounter Status:Closed by CELESTINA PIÑA III, MD on 11/05/19 cbc on 2019-11-05 Absolute nRBC <0.01 <0.01 Normal 11-05-2019 [facility] ([id number]) Comment: Performed By: #### CMP, CBC ####[address] [place], [place] [phone] Erythrocyte distribution 13.2 11.5-15.0 % Normal 11-04 [facility] width (RBC) [Ratio] [facility] ([id number]) Comment: Performed By: #### CMP, CBC ####[address] [place], [place] [phone] Hematocrit (Bld) [Volume 37.7 39.0-51.0 % Low 11-04 [facility] fraction] ([id number]) Comment: Performed By: #### CMP, CBC ####[address] [place], [place] [phone] Hemoglobin (Bld) 11.4 13.0-17.0 g/dL Low 11-05-2019 [facility] [Mass/Vol] [facility] ([id number]) Comment: Performed By: #### CMP, CBC ####[address], [place] [phone] MCH (RBC) [Entitic mass] 28.6 26.0-34.0 pG Normal 11-04 [facility] ([id number]) Comment: Performed By: #### CMP, CBC ####[address], [place] [phone] MCHC (RBC) [Mass/Vol] 30.2 30.5-36.0 g/dL Low 11-05-19 20 [facility] ([id number]) Comment: Performed By: #### CMP, CBC ####[place] [address] [place], [place] [phone] MCV (RBC) [Entitic vol] 94.7 80.0-100.0 fL Normal 11-04 [facility] ([id number]) Comment: Performed By: #### CMP, CBC ####[facility] [place], [place] [address]d [place], [place] [phone] Platelet mean volume 12.3 9.0-12.7 fL Normal 0 [facility] (Bld) [Entitic vol] [facility] ([id number]) Comment: Performed By: #### CMP, CBC ####[address], [place] [phone] Platelets (Bld) [#/Vol] 162 150-400 k/uL Normal 2019 [facility] ([id number]) Comment: Performed By: #### CMP, CBC ####[address] [place], [place] [phone] RBC (Bld) [#/Vol] 3.98 4.20-6.00 m/uL Low 11-05-2019 [facility] [place] [facility] ([id number]) Comment: Performed By: #### CMP, CBC ####[address] [place], [place] [phone] WBC (Bld) [#/Vol] 7.52 3.70-11.00 k/uL Normal 11-05-2019 [facility] ([id number]) Comment: Performed By: #### CMP, CBC ####[facility] [place], [place] [phone] obsolete on 2019-10 [facility] Refill (FAMPWS) Normal 10-20-2019 [facility] SHARAN DURAN JR ([id number]) 1940 [facility] Time Provider Department ([id number]) 10/20/19 CELESTINA PIÑA III During your visit today, we recorded the following informati on about you: Imani Cotton Ma 10/20/2019 9:49 AM Signed This was refilled on 09/02/2019 #[id number] with 3 refills to [facility]. Imani Cotton Ma Allergies As of Date: 10/20/2019 Noted Allergy Reaction ACCUPRIL (QUINAPRIL HCL) 07/31/2005 AXID (NIZATIDINE) 07/31/2005 ENTEX PSE (PSEUDOEPHEDRINE-GUAIFE*07/31/2005 LISINOPRIL 11/22/2010 3 - Cough Date Reviewed: 09/24/2019 Reviewed by: Syeda Lim Ma - Fully Assessed Reason for Visit: Refill Request [94] Prescriptions as of 10/20/2019 Sig: METOPROLOL TARTRATE 25 MG TAB* Take 1 tablet by mouth twice * HYDROCHLOROTHIAZIDE 25 MG TAB* Take 1 tablet by mouth once d * DOXAZOSIN 4 MG TABLET Take 1 tablet by mouth daily * AMLODIPINE 10 MG TABLET Take 1 tablet by mouth once d* NITROGLYCERIN 0.4 MG SUBLINGU* Dissolve 1 tablet under the t * ATORVASTATIN 40 MG TABLET Take 1 tablet by mouth once d* CHOLECALCIFEROL (VITAMIN D3) * Take 4,000 Units by mouth onc * ASPIRIN 81 MG TABLET,DELAYED * Take 1 tablet by mouth once d * Problem List As Of Date 10/20/2019 Noted Resolved BENIGN HYPERTENSION [I10] PERS HX COLONIC POLYPS [Z86.010] More... More... ESOPHAGEAL REFLUX [K21.9] More... Unspecified transient cerebral ischemia [G45.9] 01/15/2018 More... 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 Parathyroid adenoma [D35.1] 03/04/2017 More... CKD (chronic kidney disease) stage 3, GFR 30-59*03/04/2017 ASHD (arteriosclerotic heart disease) [I25.10] 03/06/2018 NSTEMI (non-ST elevated myocardial infarction) *03/06/2018 More... Elevated PSA [R97.20] 03/11/2019 Encounter Status:Closed by IMANI COTTON MA on 10/20/19 nm thy uptake only on 2019-10-06 NM THY UPTAKE * * *Final Report* * * Normal [facility] ONLY DATE OF EXAM: Oct 06 2019 1:00PM [facility] ([id number]) MMN 0041 - NM THY UPTAKE ONLY / PROCEDURE REASON: hypercalcemia * * * * Physician Interpretation * * * * PARATHYROID SCAN: HISTORY: Hyperparathyroidism. TECHNIQUE: 245 microcuries of 123-I sodium iodide PO, follow ed by thyroid uptake measurements and scan. 30.7 mCi Tc-99m sestamibi was given IV. Planar and SPECT imaging of the neck and chest was performed ; diagnostic noncontrast CT imaging of the same body region was performed using 1 bed (39cm). CT Dose-Length Product (DLP): 212 mGy*cm. CT Dose Reduction Employed: Automated exposure control (AEC) was used RESULT: The 3 hour I-123 neck uptake is 2.2% (normal range, 5-15%). The I-123 images demonstrate homogeneous uptake of activity by the thyroid, without focal thyroid abnormalities identified. SPECT images demonstrate a small focus of residual post-subt raction sestamibi activity in the left lower neck. Coregistration of SPECT with CT images demonstrate that this activity is associated with a 7 mm soft tissue nodule arising posterior to the lower pole of the lef t thyroid lobe and extending inferiorly along the left paratracheal re gion (fused image #32). These findings are consistent with the site of a hypervascular parathyroid lesion. No other areas of abnormal residual post-subtraction sestami bi activity are seen to suggest other possible sites for abnormal parath yroid tissue. CT images demonstrate diffuse osteopenia and age-related deg enerative changes of the imaged portions of the skeleton. 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 Management Nurse Rn: PSCB Transcribe Date/Time: Oct 06 2019 2:44P Dictated by : CRISTOBAL LEE MD This examination was interpreted and the report reviewed and electronically signed by: CRISTOBAL LEE MD on Oct 06 2019 2:56PM EST [id number] nm parathyroid w spect/ct on 2019-10-06 NM PARATHYROID W * * *Final Report* * * Normal 10-06-2019 [facility] SPECT/CT DATE OF EXAM: Oct 06 2019 12:59PM [facility] ([id number]) N 0089 - NM PARATHYROID W SPECT/CT / PROCEDURE REASON: multiple diagnoses * * * * Physician Interpretation * * * * PARATHYROID SCAN: HISTORY: Hyperparathyroidism. TECHNIQUE: 245 microcuries of 123-I sodium iodide PO, follow ed by thyroid uptake measurements and scan. 30.7 mCi Tc-99m sestamibi was given IV. Planar and SPECT imaging of the neck and chest was performed ; diagnostic noncontrast CT imaging of the same body region was performed using 1 bed (39cm). CT Dose-Length Product (DLP): 212 mGy*cm. CT Dose Reduction Employed: Automated exposure control (AEC) was used RESULT: The 3 hour I-123 neck uptake is 2.2% (normal range, 5-15%). The I-123 images demonstrate homogeneous uptake of activity by the thyroid, without focal thyroid abnormalities identified. SPECT images demonstrate a small focus of residual post-subt raction sestamibi activity in the left lower neck. Coregistration of SPECT with CT images demonstrate that this activity is associated with a 7 mm soft tissue nodule arising posterior to the lower pole of the lef t thyroid lobe and extending inferiorly along the left paratracheal re gion (fused image #32). These findings are consistent with the site of a hypervascular parathyroid lesion. No other areas of abnormal residual post-subtraction sestami bi activity are seen to suggest other possible sites for abnormal parath yroid tissue. CT images demonstrate diffuse osteopenia and age-related deg enerative changes of the imaged portions of the skeleton. 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 Management Nurse Rn: PSCB Transcribe Date/Time: Oct 06 2019 2:44P Dictated by : CRISTOBAL LEE MD This examination was interpreted and the report reviewed and electronically signed by: CRISTOBAL LEE MD on Oct 06 2019 2:56PM EST [id number] pth, intact on 2019 PTH, Intact 154 15-65 pg/mL High 09-24-2019 [facility] ([id number]) Comment: Performed By: #### CMP, LIPN F, PTHI ####[facility] [address] [place] [address] [phone] progress on 2019-09 PROGRESS HNO ID: [id number] Normal 09-24-2019 [facility] Author: Celestina Piña III [facility] ([id number]) Service: ? Author Type: Physician Type: Progress Notes Filed: 09/24/2019 8:29 AM Note Text: SUBJECTIVE: This is a 78 year old male that is here today fo r Chronic Medical Conditions. 1. hypertension 2. CKD III 3. 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 reg. walking, resistance training--3-5 d/wk 5. 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 no chest pain, angina, WILEY, cough, abd pain, change in BM, r ectal bleeding, change in urination PAST MEDICAL HISTORY Diagnosis Date - Anemia 10/15/2013 - Benign essential tremor 07/03/2010 - CAD in pilot station artery - CKD (chronic kidney disease) stage 3, GFR 30-59 ml/min (HC C) 03/04/2017 - Diaphragmatic hernia without mention of obstruction or mercy grene Hiatal hernia - Dyslipidemia - Elevated PSA 03/11/2019 - Esophageal reflux Gastroesophageal reflux - Esophagitis, unspecified - Essential hypertension, benign - Family history of malignant neoplasm of gastrointestinal t ract - Hyperlipidemia LDL goal < 100 09/03/2013 - Hyperparathyroidism ([facility]) 03/04/2017 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: 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 - 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 deficiency ([facility]) 2013 - Hyperparathyroidism, primary ([facility]) 05/27/13 - Mild renal insufficiency 10/15/2013 - NSTEMI (non-ST elevated myocardial infarction) ([facility]) 201709/06/14-- stent - Overweight (BMI 25.0-29.9) - Parathyroid adenoma 05/27/13 - Parathyroid adenoma 03/04/2017 parathyroidectomy 05/27/13 - Personal history of colonic polyps Colon polyps - TIA (transient ischemic attack) 06/2010 - Ulcer of esophagus without bleeding - Unspecified transient cerebral ischemia WITH HEMIPHORESIS - Vitamin D deficiency 10/15/2013 Current Outpatient Medications on File Prior to Visit Medication Sig - metoprolol tartrate, short acting, (LOPRESSOR) 25 mg table t Take 1 tablet by mouth twice daily. - hydroCHLOROthiazide (HYDRODIURIL, ESIDRIX) 25 mg tablet Ta ke 1 tablet by mouth once daily. - doxazosin (CARDURA) 4 mg tablet Take 1 tablet by mouth justino ly at bedtime. - amLODIPine (NORVASC) 10 mg tablet Take 1 tablet by mouth o nce daily. - nitroglycerin sublingual (NITROSTAT) 0.4 mg SL tablet Diss olve 1 tablet under the tongue every 5 minutes as needed. - atorvastatin (LIPITOR) 40 mg tablet Take 1 tablet by mouth once daily. For cholesterol. - cholecalciferol, vitamin D3, 4,000 unit cap Take 4,000 Uni ts by mouth once daily. - aspirin, enteric coated (ADULT LOW DOSE ASPIRIN) 81 mg EC tablet Take 1 tablet by mouth once daily. No current facility-administered medications on file prior t o visit. FAMILY HISTORY Problem Relation Age of Onset - Colon Cancer Mother - Colon Cancer Father - Arthritis Mother - Heart Father [place] * 2 - Prostate Cancer Brother - Hypertension Brother - None Brother Social History Tobacco Use - Smoking status: Former Smoker - Smokeless tobacco: Never Used - Tobacco comment: quit 1975 Substance Use Topics - Alcohol use: Yes Comment: socially - Drug use: No BP 132/58 (BP Site: Right Arm, BP Position: Sitting, BP Cuff Size: Regular Adult) Pulse 60 Resp 14 Wt 85.7 kg (189 lb) BMI 29.1 6 kg/m? . OBJECTIVE: APPEARANCE Well appearing, alert, in no acute distress, well -hydrated, well nourished. NECK Supple, no adenopathy; thyroid symmetric, normal size, no bruits HEART RRR with normal S1 and S2, no murmurs, no gallops, no JVD appreciated LUNG clear to auscultation ABDOMEN soft, non-tender, non-distended, without organomegal y or palpable masses, no tenderness to palpation EXTREMITIES Extremities normal, No deformities and No edema ASSESSMENT: hx of hyperparathyroidism--resolved excessive tears CKD III-- hypertension-at goal PLAN: healthy diet and regular exercise same medications remember to stretch after exercise labs as ordered return to office 1 yr and as needed consider second opinion from credit review officer Celestina Piña III lipid panel, nonfast on 2019-09-24 Cholesterol [Mass/Vol] 140 <200 mg/dL Normal 020 [facility] ([id number]) Comment: Result Comment: <200 mg/dL, Desirable 200-239 mg/dL, Borderline hi gh >239 mg/dL, High Performed By: #### CMP, LIPN F, PTHI ####[facility] [place] [address] [phone] Cholesterol in 0.96 <2.54 mg/dL Normal 09-24-2019 [facility] LDL/Cholesterol in HDL [Counts Include [facility] (04409) ratio] Comment: Result Comment: Reference: 1. National Cholesterol Educ ation Program ATP III Guideline At-A-Glance Quick Desk Reference: National Heart, Lung, and Blood Berino. National Institutes of Health. 2001: NIH Publication No. 01-3305. 2. An International Atherosc lerosis Society position paper: global recommendations for the management of dyslipidemia: executive summary, Atherosclerosis. 2014: 232(2):410-413. Performed By: #### CMP, LIPN F, PTHI ####[facility] [place] [address] [phone] Cholesterol.total/Cholesterol in 2.06 <5.10 mg/dL Normal 09-24-2019 [facility] HDL [Mass ratio] [facility] ([id number]) Comment: Performed By: #### THEA LIPN F, PTHI ####[place] [address] [phone] HDL Cholesterol, NF 68 >39 mg/dL Normal 09-24-2019 [facility] ([id number]) Comment: Result Comment: 40-59 mg/dL, Acceptable >59 mg/dL, High: Negative ri sk factor for coronary heart disease <40 mg/dL, Low: Positive ris k factor for coronary heart disease Performed By: #### THEA, LIPN F, PTHI ####[place] [address] [phone] LDL Cholesterol, NF 65 <100 mg/dL Normal 09-24-2019 [facility] (66897) Comment: Result Comment: <100 mg/dL, Optimal 100-129 mg/dL, Near optimal/ above optimal 130-159 mg/dL, Borderline hi gh 160-189 mg/dL, High >189 mg/dL, Very high Secondary prevention optimal LDL Cholesterol levels are recommended to be < 70 mg/dL Performed By: #### THEA LIPN F, PTHI ####[place] [address] [phone] Non HDL Chol, NF 72 <130 mg/dL Normal 09-24-2019 [facility] (61446) Comment: Result Comment: <130 mg/dL, Optimal 130-159 mg/dL, Near optimal/ above optimal 160-189 mg/dL, Borderline hi gh 190-219 mg/dL, High >219 mg/dL, Very high Secondary prevention optimal non HDL Cholesterol levels are recommended to be < 100 mg/dL Performed By: #### THEA, LIPN F, PTHI ####[place] [address] [phone] Triglycerides, NF 34 <150 mg/dL Normal 09-24-2019 [facility] (47500) Comment: Result Comment: <150 mg/dL, Normal 150-199 mg/dL, Borderline hi gh 200-499 mg/dL, High >499 mg/dL, Very high Performed By: #### CMP, LIPN F, PTHI ####[place] [address] [phone] VLDL Cholesterol, NF 7 <30 mg/dL Normal 0 [facility] ([id number]) Comment: Performed By: #### CMP, LIPN F, PTHI ####[place] [address] [phone] comp metabolic panel on 2019-09-24 Albumin [Mass/Vol] 3.9 3.9-4.9 g/dL Normal 09-24-2019 [facility] (76879) Comment: Performed By: #### CMP, LIPN F, PTHI ####[place] [address] [phone] ALP [Catalytic activity/Vol] 81 38-113 U/L Normal 0 09-24-2019 [facility] (69555) Comment: Performed By: #### CMP, LIPN F, PTHI ####[place] [address] [phone] ALT [Catalytic activity/Vol] 12 10-54 U/L Normal 0 09-24-2019 [facility] (35411) Comment: Performed By: #### CMP, LIPN F, PTHI ####[place] [address] [phone] Anion gap [Moles/Vol] 12 9-18 mmol/L Normal 09-24-19 20 [facility] (56014) Comment: Performed By: #### CMP, LIPN F, PTHI ####[place] [address] [phone] AST [Catalytic activity/Vol] 24 14-40 U/L Normal 0 09-24-2019 [facility] ([id number]) Comment: Performed By: #### CMP, LIPN F, PTHI ####[facility] [address] [address] [phone] Bilirubin [Mass/Vol] 0.4 0.2-1.3 mg/dL Normal 0 [facility] (58465) Comment: Performed By: #### CMP, LIPN F, PTHI ####[place] [address] [address] [phone] Calcium [Mass/Vol] 10.4 8.5-10.2 mg/dL High 09-24-2019 [facility] (26675) Comment: Performed By: #### CMP, LIPN F, PTHI ####[place] [address] [address] [place] [address] [phone] Chloride [Moles/Vol] 104 97-105 mmol/L Normal 0 [facility] (91355) Comment: Performed By: #### CMP, LIPN F, PTHI ####[place] [address] [address] [place] [address] [phone] CO2 [Moles/Vol] 27 22-30 mmol/L Normal 09-24-2019 [facility] ([id number]) Comment: Performed By: #### CMP, LIPN F, PTHI ####[place] [address] [address] [place] [address] [phone] Creatinine [Mass/Vol] 2.12 0.73-1.22 mg/dL High 09-24-19 20 [facility] (01904) Comment: Performed By: #### CMP, LIPN F, PTHI ####[facility] [address] [phone] eGFR- Amer. 37 Normal 09-24-2019 [facility] (83893) Comment: Performed By: #### CMP, LIPN F, PTHI ####[place] [address] [place] [address] [phone] GFR/1.73 sq M predicted among 30 . Normal 09-24-2019 [facility] non-blacks MDRD (S/P/Bld) [Vol (35697) rate/Area] Comment: Result Comment: eGFR (Estima melquiades GFR) Units of measure: mL/min/1.73 meters squared eGFR is derived from the ree xpressed MDRD Study equation using the following parameters: serum creatinine, age, gender and race. The creatinine assay has been calibrated to be traceable to IDMS. An eGFR <60 mL/min/1.73m2 fo r >3 months is consistent with chronic kidney disease. Refer to KDOQI guidelines for clinical interpretation. In patients with unstable re nal function, e.g. those with acute kidney injury, the eGFR may not accurately reflect actual GFR. Performed By: #### YAYO SIDHU PTHI ####[facility] [address] [place] [address] [phone] Glucose [Mass/Vol] 93 74-99 mg/dL Normal 09-24-2019 [facility] (85701) Comment: Result Comment: The [place] Diabetes Association (ADA) provides guidance for cutoff values for fasting glucose and random glucose. The ADA defines fasting as no caloric intake for at least 8 hours. Fas ting plasma glucose results between 100 to 125 mg/dL indicate increased risk for diabetes (prediabetes). Fasting plasma glucose resul ts greater than or equal to 126 mg/dL meet the criteria for diagnosis of diabetes. In the absence of unequivocal hyperglycemia, results should be confirmed by repeat testing. In a patient with classic s ymptoms of hyperglycemia or hyperglycemic crisis, random plasma glucose results greater than or equal to 200 mg/dL meet the criteria for diagnosis of diabetes. Reference: Standards of [facility] Care in Diabetes 2016, [place] Diabetes Association. Diabetes Care. 2016.39(Suppl 1). Performed By: #### YAYO SIDHU PTHI ####[facility] [address] [place] [address] [phone] Potassium [Moles/Vol] 4.6 3.7-5.1 mmol/L Normal 09-24-19 [facility] (26095) Comment: Performed By: #### YAYO SIDHU PTHI ####[facility] [place] [address] [phone] Protein [Mass/Vol] 6.7 6.3-8.0 g/dL Normal 09-24-2019 [facility] (92698) Comment: Performed By: #### CMP, LIPN F, PTHI ####[facility] [place] [address] [phone] Sodium [Moles/Vol] 143 136-144 mmol/L Normal 09-24-2019 [facility] (39356) Comment: Performed By: #### CMP, LIPN F, PTHI ####[facility] [place] [address] [phone] Urea nitrogen [Mass/Vol] 41 9-24 mg/dL High 09-24 [facility] (56148) Comment: Performed By: #### CMP, LIPN F, PTHI ####[facility] [place] [address] [phone] cnov on 2019-09-24 CNOV Office Visit (FAMPWS) Normal 09-24-[address] [place] [address] [facility] SHARAN DURAN JR ([id number]) 1940 [facility] Date Time Provider Department ([id number]) 09/24/19 8:00 AM CELESTINA PIÑA III FAMPWS During your visit today, we recorded the following informati on about you: Pulse Respiration Blood pressure Weight 60/minute 14/minute 132/58 85.7 kg Celestina Piña III MD 09/24/2019 8:29 AM Signed SUBJECTIVE: This is a 78 year old male that is h ere today for Chronic Medical Conditions. 1. hypertension 2. CKD III 3. 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 reg. walking, resistance training--3-5 d/wk 5. 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 no chest pain, angina, WILEY, cough, abd pain, change in BM, rectal bleeding, change in urination PAST MEDICAL HISTORY Diagnosis Date - Anemia 10/15/2013 - Benign essential tremor 07/03/2010 - CAD in pilot station artery - CKD (chronic kidney disease) stage 3, GFR 30-59 ml/min (HC C) 03/04/2017 - Diaphragmatic hernia without mention of obstruction or mercy grene Hiatal hernia - Dyslipidemia - Elevated PSA 03/11/2019 - Esophageal reflux Gastroesophageal reflux - Esophagitis, unspecified - Essential hypertension, benign - Family history of malignant neoplasm of gastrointestinal t ract - Hyperlipidemia LDL goal < 100 09/03/2013 - Hyperparathyroidism ([facility]) 03/04/2017 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: secondary hyp erparathyroidism--?due to CKD III - 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 deficiency ([facility]) 2013 - Hyperparathyroidism, primary ([facility]) 05/27/13 - Mild renal insufficiency 10/15/2013 - NSTEMI (non-ST elevated myocardial infarction) ([facility]) 201709/06/14-- stent - Overweight (BMI 25.0-29.9) - Parathyroid adenoma 05/27/13 - Parathyroid adenoma 03/04/2017 parathyroidectomy 05/27/13 - Personal history of colonic polyps Colon polyps - TIA (transient ischemic attack) 06/2010 - Ulcer of esophagus without bleeding - Unspecified transient cerebral ischemia WITH HEMIPHORESIS - Vitamin D deficiency 10/15/2013 Current Outpatient Medications on File Prior to Visit Medication Sig - metoprolol tartrate, short acting, (LO PRESSOR) 25 mg tablet Take 1 tablet by mouth twice daily. - hydroCHLOROthiazide (HYDRODIURIL, ESIDRIX) 25 mg tablet Ta ke 1 tablet by mouth once daily. - doxazosin (CARDURA) 4 mg tablet Take 1 tablet by mouth justino ly at bedtime. - amLODIPine (NORVASC) 10 mg tablet Take 1 tablet by mouth o nce daily. - nitroglycerin sublingual ( NITROSTAT) 0.4 mg SL tablet Dissolve 1 tablet under the tongue every 5 minutes as needed. - atorvastatin (LIPITOR) 40 mg tablet Take 1 tablet by mouth once daily. For cholesterol. - cholecalciferol, vitamin D3, 4,000 unit cap Take 4,0 00 Units by mouth once daily. - aspirin, enteric coated (ADULT LOW DOSE ASPIRIN) 81 mg EC tablet Take 1 tablet by mouth once daily. No current facility-administered medications on file prior t o visit. FAMILY HISTORY Problem Relation Age of Onset - Colon Cancer Mother - Colon Cancer Father - Arthritis Mother - Heart Father [place] * 2 - Prostate Cancer Brother - Hypertension Brother - None Brother Social History Tobacco Use - Smoking status: Former Smoker - Smokeless tobacco: Never Used - Tobacco comment: quit 1975 Substance Use Topics - Alcohol use: Yes Comment: socially - Drug use: No BP 132/58 (BP Site: Right Arm, BP Position: Sitting, BP Cuff Size: Regular Adult) Pulse 60 Resp 14 Wt 85.7 kg (189 lb) BMI 29.1 6 kg/m? . OBJECTIVE: APPEARANCE Well appearing, alert, in no acute distress, we ll-hydrated, well nourished. NECK Supple, no adenopathy; thyroid symmetric, normal size, no bruits HEART RRR with normal S1 and S2, no murmurs, no gallops, n o JVD appreciated LUNG clear to auscultation ABDOMEN soft, non-tender, non-distended, without organomegal y or palpable masses, no tenderness to palpation EXTREMITIES Extremities normal, No deformities and No edema ASSESSMENT: hx of hyperparathyroidism--resolved excessive tears CKD III-- hypertension-at goal PLAN: healthy diet and regular exercise same medications remember to stretch after exercise labs as ordered return to office 1 yr and as needed consider second opinion from credit review officer DIANNE Gamino MD, III MD 09/24/2019 8:23 AM Signed PLAN: healthy diet and regular exercise same medications remember to stretch after exercise labs as ordered return to office 1 yr and as needed consider second opinion from credit review officer Celestina Piña III MD Referring Provider: SELF [200] Allergies As of Date: 09/24/2019 Noted Allergy Reaction ACCUPRIL (QUINAPRIL HCL) 07/31/2005 AXID (NIZATIDINE) 07/31/2005 ENTEX PSE (PSEUDOEPHEDRINE-GUAIFE*07/31/2005 LISINOPRIL 11/22/2010 3 - Cough Date Reviewed: 09/24/2019 Reviewed by: Syeda Lim Ma - Fully Assessed Reason for Visit: Recheck [92] Primary Visit Diagnosis:Essential hypertension, benign [I10] Other Visit Diagnoses: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, N13.8] Hyperlipidemia with target LDL less than 100 [E78.5] Hyperparathyroidism (HCC) [E21.3] CKD (chronic kidney disease) stage 3, GFR 30-59 ml/min (HCC) [N18.3] Elevated PSA [R97.20] ASHD (arteriosclerotic heart disease) [I25.10] Order(s):PTH INTACT BLD [SQPTHI] Order #: [id number] FUTURE COMP METABOLIC PANEL [SQCMP] Order #: [id number] FUTURE LIPID PANEL, NONFASTING [SQLIPNF] Order #: [id number] FUTURE Prescriptions as of 09/24/2019 Sig: METOPROLOL TARTRATE 25 MG TAB* Take 1 tablet by mouth twice * HYDROCHLOROTHIAZIDE 25 MG TAB* Take 1 tablet by mouth once d * DOXAZOSIN 4 MG TABLET Take 1 tablet by mouth daily * AMLODIPINE 10 MG TABLET Take 1 tablet by mouth once d* NITROGLYCERIN 0.4 MG SUBLINGU* Dissolve 1 tablet under the t * ATORVASTATIN 40 MG TABLET Take 1 tablet by mouth once d* CHOLECALCIFEROL (VITAMIN D3) * Take 4,000 Units by mouth onc * ASPIRIN 81 MG TABLET,DELAYED * Take 1 tablet by mouth once d * Problem List As Of Date 09/24/2019 Noted Resolved BENIGN HYPERTENSION [I10] PERS HX COLONIC POLYPS [Z86.010] More... More... ESOPHAGEAL REFLUX [K21.9] More... Unspecified transient cerebral ischemia [G45.9] 01/15/2018 More... 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 Parathyroid adenoma [D35.1] 03/04/2017 More... CKD (chronic kidney disease) stage 3, GFR 30-59*03/04/2017 ASHD (arteriosclerotic heart disease) [I25.10] 03/06/2018 NSTEMI (non-ST elevated myocardial infarction) *03/06/2018 More... Elevated PSA [R97.20] 03/11/2019 Other instructions from your clinician: PLAN: healthy diet and regular exercise same medications remember to stretch after exercise labs as ordered return to office 1 yr and as needed consider second opinion from credit review officer Celestina Piña III MD Encounter Status:Closed by CELESTINA PIÑA III, MD on 09/24/19 cbc on 2019-09-24 Absolute nRBC <0.01 <0.01 Normal 09-24-2019 [facility] ([id number]) Comment: Performed By: #### CBC ####C [address] [phone] Erythrocyte distribution 13.1 11.5-15.0 % Normal 09-24 [facility] width (RBC) [Ratio] [facility] (47615) Comment: Performed By: #### CBC ####C [address] [phone] Hematocrit (Bld) [Volume 37.9 39.0-51.0 % [facility] 09[facility] (50446) Comment: Performed By: #### CBC ####C [address] [phone] Hemoglobin (Bld) 12.1 13.0-17.0 g/dL Low 09-24-2019 [facility] [Mass/Vol] [facility] (68119) Comment: Performed By: #### CBC ####C [place] [phone] MCH (RBC) [Entitic mass] 30.9 26.0-34.0 pG Normal 09-24 [facility] (08272) Comment: Performed By: #### CBC ####C [address] [id number] [phone] MCHC (RBC) [Mass/Vol] 31.9 30.5-36.0 g/dL Normal 09-24-19 20 [facility] (77621) Comment: Performed By: #### CBC ####C [address] [id number] [phone] MCV (RBC) [Entitic vol] 96.7 80.0-100.0 fL Normal 09-24 [facility] (11550) Comment: Performed By: #### CBC ####C [address] [id number] [phone] Platelet mean volume 11.8 9.0-12.7 fL Normal 0 [facility] (Bld) [Entitic vol] [facility] (56095) Comment: Performed By: #### CBC ####C [address] [id number] [phone] Platelets (Bld) [#/Vol] 154 150-400 k/uL Normal 2019 [facility] (62778) Comment: Performed By: #### CBC ####C [address] [id number] [phone] RBC (Bld) [#/Vol] 3.92 4.20-6.00 m/uL Low 09-24-2019 [facility] (87470) Comment: Performed By: #### CBC ####C [address] [id number] [phone] WBC (Bld) [#/Vol] 5.95 3.70-11.00 k/uL Normal 09-24-2019 [facility] (48873) Comment: Performed By: #### CBC ####C [facility] [address] [place], [place] [phone]- [phone] cnptoutreach on CNPTOUTREACH Patient Outreach (INTMWH) Normal 0 09-08-2019 [facility] SHARAN Montana JR ([id number]) 1940 [facility] Date Time Provider Department ([id number]) 09/08/19 CELESTINA PIÑA III INTWH During your visit today, we recorded the following informati on about you: Allergies As of Date: 09/08/2019 Noted Allergy Reaction ACCUPRIL (QUINAPRIL HCL) 07/31/2005 AXID (NIZATIDINE) 07/31/2005 ENTEX PSE (PSEUDOEPHEDRINE-GUAIFE*07/31/2005 LISINOPRIL 11/22/2010 3 - Cough Date Reviewed: 07/03/2019 Reviewed by: Edita ([facility]) CLIF De Oliveira - Fully Assessed Visit Diagnosis:Medication management [Z79.899] Order(s):[facility] [SQCBC] Order #: [id number] FUTURE Prescriptions as of 09/08/2019 Sig: METOPROLOL TARTRATE 25 MG TAB* Take 1 tablet by mouth twice * HYDROCHLOROTHIAZIDE 25 MG TAB* Take 1 tablet by mouth once d * DOXAZOSIN 4 MG TABLET Take 1 tablet by mouth daily * AMLODIPINE 10 MG TABLET Take 1 tablet by mouth once d* NITROGLYCERIN 0.4 MG SUBLINGU* Dissolve 1 tablet under the t * ATORVASTATIN 40 MG TABLET Take 1 tablet by mouth once d* CHOLECALCIFEROL (VITAMIN D3) * Take 4,000 Units by mouth onc * ASPIRIN 81 MG TABLET,DELAYED * Take 1 tablet by mouth once d * Problem List As Of Date 09/08/2019 Noted Resolved BENIGN HYPERTENSION [I10] PERS HX COLONIC POLYPS [Z86.010] More... More... ESOPHAGEAL REFLUX [K21.9] More... Unspecified transient cerebral ischemia [G45.9] 01/15/2018 More... 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 Parathyroid adenoma [D35.1] 03/04/2017 More... CKD (chronic kidney disease) stage 3, GFR 30-59*03/04/2017 ASHD (arteriosclerotic heart disease) [I25.10] 03/06/2018 NSTEMI (non-ST elevated myocardial infarction) *03/06/2018 More... Elevated PSA [R97.20] 03/11/2019 Encounter Status:Closed by ROGERS GOFF on 09/23/19 obsolete on 2019-08 OBSOLETE Refill (FAMPWS) Normal 09-02-2019 [facility] SHARAN Montana JR ([id number]) 1940 [facility] Date Time Provider Department ([id number]) 09/02/19 CELESTINA PIÑA IIIPWS During your visit today, we recorded the following informati on about you: Syeda Lim Ma 09/02/2019 2:54 PM Signed Patient has been identified by name and date of : Yes Pending Prescriptions Disp Refills METOPROLOL TARTRATE 25 MG TABLET 180 tablet 3 Sig: Take 1 tablet by mouth twice daily. TASNEEM: No RX INSTRUCTIONS: Patient aware RX will be sent to pharmacy. No need to notify patient. Syeda Lim Ma Last ov: 06/2019 Last refill: 08/2018 Nov: 09/2019 Allergies As of Date: 09/02/2019 Noted Allergy Reaction ACCUPRIL (QUINAPRIL HCL) 07/31/2005 AXID (NIZATIDINE) 07/31/2005 ENTEX PSE (PSEUDOEPHEDRINE-GUAIFE*07/31/2005 LISINOPRIL 11/22/2010 3 - Cough Date Reviewed: 07/03/2019 Reviewed by: Edita ([facility]) CLIF De Oliveira - Fully Assessed Reason for Visit: Refill Request [94] Order(s):metoprolol tartrate, short acting, (LOPRESSOR) 25 m g tabletTake 1 tablet by mouth twice daily.Disp: 180 tabletRfl: 3 Prescriptions as of 09/02/2019 Sig: METOPROLOL TARTRATE 25 MG TAB* Take 1 tablet by mouth twice * HYDROCHLOROTHIAZIDE 25 MG TAB* Take 1 tablet by mouth once d * DOXAZOSIN 4 MG TABLET Take 1 tablet by mouth daily * AMLODIPINE 10 MG TABLET Take 1 tablet by mouth once d* NITROGLYCERIN 0.4 MG SUBLINGU* Dissolve 1 tablet under the t * ATORVASTATIN 40 MG TABLET Take 1 tablet by mouth once d* CHOLECALCIFEROL (VITAMIN D3) * Take 4,000 Units by mouth onc * ASPIRIN 81 MG TABLET,DELAYED * Take 1 tablet by mouth once d * Problem List As Of Date 09/02/2019 Noted Resolved BENIGN HYPERTENSION [I10] PERS HX COLONIC POLYPS [Z86.010] More... More... ESOPHAGEAL REFLUX [K21.9] More... Unspecified transient cerebral ischemia [G45.9] 01/15/2018 More... 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 Parathyroid adenoma [D35.1] 03/04/2017 More... CKD (chronic kidney disease) stage 3, GFR 30-59*03/04/2017 ASHD (arteriosclerotic heart disease) [I25.10] 03/06/2018 NSTEMI (non-ST elevated myocardial infarction) *03/06/2018 More... Elevated PSA [R97.20] 03/11/2019 Prescriptions ordered this encounter Disp Refills Start End METOPROLOL TARTRATE 25 MG TABLET 180 * 3 09/02/2019 Route: ORAL Sig: Take 1 tablet by mouth twice daily. Medications Discontinued During This Encounter metoprolol tartrate, short acting, (* 180 * 3 09/09/201809/02 Class: [facility] Route: ORAL Sig: Take 1 tablet by mouth twice daily. Disc: Reason for discontinue is not on file. Encounter Status:Closed by CELESTINA PIÑA III, MD on 09/02/19 obsolete on 2019-08 OBSOLETE Refill (FAMPWS) Normal 08-31-2019 [facility] SHARAN Montana JR ([id number]) 1940 [facility] Date Time Provider Department ([id number]) 08/31/19 CELESTINA PIÑA III During your visit today, we recorded the following informati on about you: Dorcas Gonzalez LPN 08/31/2019 12:46 PM Signed Last refill 09/09/18 Qty: 90 with 3 refills Last ov 07/03/19 Has appt 09/22/19 Dorcas Gonzalez LPN Allergies As of Date: 08/31/2019 Noted Allergy Reaction ACCUPRIL (QUINAPRIL HCL) 07/31/2005 AXID (NIZATIDINE) 07/31/2005 ENTEX PSE (PSEUDOEPHEDRINE-GUAIFE*07/31/2005 LISINOPRIL 11/22/2010 3 - Cough Date Reviewed: 07/03/2019 Reviewed by: Edita ([facility]) CLIF De Oliveira - Fully Assessed Reason for Visit: Refill Request [94] Order(s):hydroCHLOROthiazide (HYDRODIURIL, ESIDR IX) 25 mg tabletTake 1 tablet by mouth once daily.Disp: 90 tabletRfl: 3 Prescriptions as of 08/31/2019 Sig: HYDROCHLOROTHIAZIDE 25 MG TAB* Take 1 tablet by mouth once d * DOXAZOSIN 4 MG TABLET Take 1 tablet by mouth daily * AMLODIPINE 10 MG TABLET Take 1 tablet by mouth once d* NITROGLYCERIN 0.4 MG SUBLINGU* Dissolve 1 tablet under the t * ATORVASTATIN 40 MG TABLET Take 1 tablet by mouth once d* METOPROLOL TARTRATE 25 MG TAB* Take 1 tablet by mouth twice * CHOLECALCIFEROL (VITAMIN D3) * Take 4,000 Units by mouth onc * ASPIRIN 81 MG TABLET,DELAYED * Take 1 tablet by mouth once d * Problem List As Of Date 08/31/2019 Noted Resolved BENIGN HYPERTENSION [I10] PERS HX COLONIC POLYPS [Z86.010] More... More... ESOPHAGEAL REFLUX [K21.9] More... Unspecified transient cerebral ischemia [G45.9] 01/15/2018 More... 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 Parathyroid adenoma [D35.1] 03/04/2017 More... CKD (chronic kidney disease) stage 3, GFR 30-59*03/04/2017 ASHD (arteriosclerotic heart disease) [I25.10] 03/06/2018 NSTEMI (non-ST elevated myocardial infarction) *03/06/2018 More... Elevated PSA [R97.20] 03/11/2019 Prescriptions ordered this encounter Disp Refills Start End HYDROCHLOROTHIAZIDE 25 MG TABLET 90 t* 3 08/31/2019 Route: ORAL Sig: Take 1 tablet by mouth once daily. Medications Discontinued During This Encounter hydroCHLOROthiazide (HYDRODIURIL, ES* 90 t* 3 09/09/201808/31 Class: [facility] Route: ORAL Sig: Take 1 tablet by mouth once daily. Disc: Reason for discontinue is not on file. Encounter Status:Closed by CRISELDA BRUCE CNP on 08/31/19 obsolete on 2019-07 OBSOLETE Refill (FAMPWS) Normal 07-28-2019 [facility] SHARAN DURAN JR ([id number]) 1940 [facility] Date Time Provider Department ([id number]) 07/28/19 CELESTINA PIÑA III FAMPWS During your visit today, we recorded the following informati on about you: Syeda Lim Ma 07/28/2019 10:43 AM Signed Patient has been identified by name and date of : Yes Pending Prescriptions Disp Refills DOXAZOSIN 4 MG TABLET 90 tablet 3 Sig: Take 1 tablet by mouth daily at bedtime. TASNEEM: No RX INSTRUCTIONS: Patient aware RX will be sent to pharmacy. No need to notify patient. Syeda Lim Ma Last ov: 06/2019 Last refill: 08/2018 Nov: 09/2019 Allergies As of Date: 07/28/2019 Noted Allergy Reaction ACCUPRIL (QUINAPRIL HCL) 07/31/2005 AXID (NIZATIDINE) 07/31/2005 ENTEX PSE (PSEUDOEPHEDRINE-GUAIFE*07/31/2005 LISINOPRIL 11/22/2010 3 - Cough Date Reviewed: 07/03/2019 Reviewed by: Edita ([facility]) CLIF De Oliveira - Fully Assessed Reason for Visit: Refill Request [94] Order(s):doxazosin (CARDURA) 4 mg tabletTake 1 tablet by shruthi th daily at bedtime.Disp: 90 tabletRfl: 3 Prescriptions as of 07/28/2019 Sig: DOXAZOSIN 4 MG TABLET Take 1 tablet by mouth daily * AMLODIPINE 10 MG TABLET Take 1 tablet by mouth once d* NITROGLYCERIN 0.4 MG SUBLINGU* Dissolve 1 tablet under the t * ATORVASTATIN 40 MG TABLET Take 1 tablet by mouth once d* METOPROLOL TARTRATE 25 MG TAB* Take 1 tablet by mouth twice * HYDROCHLOROTHIAZIDE 25 MG TAB* Take 1 tablet by mouth once d * CHOLECALCIFEROL (VITAMIN D3) * Take 4,000 Units by mouth onc * ASPIRIN 81 MG TABLET,DELAYED * Take 1 tablet by mouth once d * Problem List As Of Date 07/28/2019 Noted Resolved BENIGN HYPERTENSION [I10] PERS HX COLONIC POLYPS [Z86.010] More... More... ESOPHAGEAL REFLUX [K21.9] More... Unspecified transient cerebral ischemia [G45.9] 01/15/2018 More... 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 Parathyroid adenoma [D35.1] 03/04/2017 More... CKD (chronic kidney disease) stage 3, GFR 30-59*03/04/2017 ASHD (arteriosclerotic heart disease) [I25.10] 03/06/2018 NSTEMI (non-ST elevated myocardial infarction) *03/06/2018 More... Elevated PSA [R97.20] 03/11/2019 Prescriptions ordered this encounter Disp Refills Start End DOXAZOSIN 4 MG TABLET 90 t* 3 07/28/2019 Route: ORAL Sig: Take 1 tablet by mouth daily at bedtime. Medications Discontinued During This Encounter doxazosin (CARDURA) 4 mg tablet 90 t* 3 09/09/2018 07/28/2019 Class: [facility] Route: ORAL Sig: Take 1 tablet by mouth daily at bedtime. Disc: Reason for discontinue is not on file. Encounter Status:Closed by CELESTINA PIÑA III, MD on 07/28/19 psa, free on 2018-08 PSA, Diagnostic 6.28 0.00-2.59 ng/mL High 07-13-2019 [facility] ([id number]) Comment: Result Comment: Total PSA te st methodology used is the Electrochemiluminescence Immunoassay. For an individual patient, t he significance of a PSA level should be interpreted in a broad clinical context, including age, race, family history, digital rectal exam, prostate size, results of prior te sting (prostate biopsy, free PSA, PCA3), and use of 5-alpha reductase inhibitors. Considering the high inciden ce of asymptomatic cancer in the general population that may not pose an ultimate risk to a patient, the decision to recommend urological evaluation or prostate biopsy should be individualized after con sideration of all these factors. REFERENCE: Geraldine Richard M.D., M.P. H., Peng Pretty M.D., Ph.D., Akin Nair M.D., Edita Iraheta M.P.H., Livier Jenkins Sc.D. Effect of Verification Bias on Screening for Prostate Cancer by Measurement of Prostatic Specific Antigen. N Engl J Med 2003,349:335-42. Performed By: #### PSATF ### #[facility] [address] [place], [place] [phone] PSA, Percent Free DO NOT ORDER 25 % Normal 07-13-2019 [facility] FOR SUPERIOR ONLY (0 0000) Comment: Result Comment: Less than 11 % suggestive of prostate cancer. Greater than 23% suggestive of benign condition. Performed By: #### PSATF ### #[facility] [place], [place] [phone] cnov on 2019-07-07 CNOV Office Visit (VSLWST) Normal 07-07-20 [facility] SHARAN Montana JR ([id number]) 1940 [facility] Date Time Provider Department ([id number]) 07/07/19 11:00 AM [facility] WSTR VSLWST During your visit today, we recorded the following informati on about you: Celestina Piña III MD 07/07/2019 1:07 PM Signed Sharan, You do have some plaque buildup in both carotid arteri es, but only to a very small degree. There is enough plaque to cause the sound that I could hear. Continue present medications and pursue a low-fa t diet with regular exercise. Celestina Piña III MD Referring Provider: CELESTINA PIÑA III [[id number]] Allergies As of Date: 07/07/2019 Noted Allergy Reaction ACCUPRIL (QUINAPRIL HCL) 07/31/2005 AXID (NIZATIDINE) 07/31/2005 ENTEX PSE (PSEUDOEPHEDRINE-GUAIFE*07/31/2005 LISINOPRIL 11/22/2010 3 - Cough Date Reviewed: 07/03/2019 Reviewed by: Edita ([facility]) CLIF De Oliveira - Fully Assessed Visit Diagnosis:Bruit of left carotid artery [R09.89] Order(s):US CAROTID ARTERIES [facility] [[id number]] Order # : [id number]. #:[id number] Prescriptions as of 07/07/2019 Sig: AMLODIPINE 10 MG TABLET Take 1 tablet by mouth once d* NITROGLYCERIN 0.4 MG SUBLINGU* Dissolve 1 tablet under the t * ATORVASTATIN 40 MG TABLET Take 1 tablet by mouth once d* METOPROLOL TARTRATE 25 MG TAB* Take 1 tablet by mouth twice * DOXAZOSIN 4 MG TABLET Take 1 tablet by mouth daily * HYDROCHLOROTHIAZIDE 25 MG TAB* Take 1 tablet by mouth once d * CHOLECALCIFEROL (VITAMIN D3) * Take 4,000 Units by mouth onc * ASPIRIN 81 MG TABLET,DELAYED * Take 1 tablet by mouth once d * Problem List As Of Date 07/07/2019 Noted Resolved BENIGN HYPERTENSION [I10] PERS HX COLONIC POLYPS [Z86.010] More... More... ESOPHAGEAL REFLUX [K21.9] More... Unspecified transient cerebral ischemia [G45.9] 01/15/2018 More... 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 Parathyroid adenoma [D35.1] 03/04/2017 More... CKD (chronic kidney disease) stage 3, GFR 30-59*03/04/2017 ASHD (arteriosclerotic heart disease) [I25.10] 03/06/2018 NSTEMI (non-ST elevated myocardial infarction) *03/06/2018 More... Elevated PSA [R97.20] 03/11/2019 Encounter Status:Closed by CELESTINA PIÑA III, MD on 07/07/19 progress on 2019-06 PROGRESS HNO ID: [id number] Normal 07-03-2019 [facility] Author: Celestina Piña III [facility] ([id number]) Service: ? Author Type: Physician Type: Progress Notes Filed: 07/03/2019 4:25 PM Note Text: SUBJECTIVE: This is a 78 year old male that is here today fo r right wrist pain x 1 mo. Seen in UC 2 wks ago with neg xray and dx of te ndinitis. Tx with prednisone taper w/o benefit. Pt notes catching pain over lat aspect of radial surface o f wrist. Xray R wrist image reviewed--some degenerative change of car pal but no tenderness at the site of inflammation 2. asked about lifescan screening. Former smoker but no hx o f ASHD, TIA or cva. Current Outpatient Medications on File Prior to Visit Medication Sig - amLODIPine (NORVASC) 10 mg tablet Take 1 tablet by mouth o nce daily. - atorvastatin (LIPITOR) 40 mg tablet Take 1 tablet by mouth once daily. For cholesterol. - metoprolol tartrate, short acting, (LOPRESSOR) 25 mg table t Take 1 tablet by mouth twice daily. - doxazosin (CARDURA) 4 mg tablet Take 1 tablet by mouth justino ly at bedtime. - hydroCHLOROthiazide (HYDRODIURIL, ESIDRIX) 25 mg tablet Ta ke 1 tablet by mouth once daily. - cholecalciferol, vitamin D3, 4,000 unit cap Take 4,000 Uni ts by mouth once daily. - aspirin, enteric coated (ADULT LOW DOSE ASPIRIN) 81 mg EC tablet Take 1 tablet by mouth once daily. - nitroglycerin sublingual (NITROSTAT) 0.4 mg SL tablet Diss olve 1 tablet under the tongue every 5 minutes as needed. No current facility-administered medications on file prior t o visit. PAST MEDICAL HISTORY Diagnosis Date - Anemia 10/15/2013 - Benign essential tremor 07/03/2010 - CAD in pilot station artery - CKD (chronic kidney disease) stage 3, GFR 30-59 ml/min (HC C) 03/04/2017 - Diaphragmatic hernia without mention of obstruction or mercy grene Hiatal hernia - Dyslipidemia - Elevated PSA 03/11/2019 - Esophageal reflux Gastroesophageal reflux - Esophagitis, unspecified - Essential hypertension, benign - Family history of malignant neoplasm of gastrointestinal t ract - Hyperlipidemia LDL goal < 100 09/03/2013 - Hyperparathyroidism ([facility]) 03/04/2017 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: 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 - 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 deficiency ([facility]) 2013 - Hyperparathyroidism, primary ([facility]) 05/27/13 - Mild renal insufficiency 10/15/2013 - NSTEMI (non-ST elevated myocardial infarction) ([facility]) 201709/06/14-- stent - Overweight (BMI 25.0-29.9) - Parathyroid adenoma 05/27/13 - Parathyroid adenoma 03/04/2017 parathyroidectomy 05/27/13 - Personal history of colonic polyps Colon polyps - TIA (transient ischemic attack) 06/2010 - Ulcer of esophagus without bleeding - Unspecified transient cerebral ischemia WITH HEMIPHORESIS - Vitamin D deficiency 10/15/2013 FAMILY HISTORY Problem Relation Age of Onset - Colon Cancer Mother - Colon Cancer Father - Arthritis Mother - Heart Father [place] * 2 - Prostate Cancer Brother - Hypertension Brother - None Brother Social History Tobacco Use - Smoking status: Former Smoker - Smokeless tobacco: Never Used - Tobacco comment: quit 1975 Substance Use Topics - Alcohol use: Yes Comment: socially - Drug use: No BP 131/69 Pulse (!) 59 Resp 18 Wt 85.7 kg (189 lb) B [place] 29.16 kg/m? OBJECTIVE: APPEARANCE Well appearing, alert, in no acute distress, well -hydrated, well nourished. NECK Supple, no adenopathy; thyroid symmetric, normal size, L carotid bruit EXTREMITIES tenderness over thumb extensor tendon. Finkelste in test positive. No tenderness of carpals, full painless flex/ext o f R wrist. 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 ASSESSMENT: tendinitis L thumb L carotid bruit-asymptomatic PLAN: R thumb splint rest R thumb --avoid grasping with palm down advil or aleve as needed for pain may use ice as needed for pain ASA 81 mg daily carotid US DIANNE Gamino MD on 2019-07-03 CNOV Office Visit (FAMPWS) Normal 07-03-20 [facility] ROGERSHARAN JR ([id number]) 1940 [address] [facility] Date Time Provider Department ([id number]) 07/03/19 1:00 PM CELESTINA PIÑA III During your visit today, we recorded the following informati on about you: Pulse Respiration Blood pressure Weight 59/minute 18/minute 131/69 85.7 kg Celestina Piña III MD 07/03/2019 4:25 PM Signed SUBJECTIVE: This is a 78 year old male t hat is here today for right wrist pain x 1 mo. Seen in UC 2 wks ago with neg xray and dx of tendini tis. Tx with prednisone taper w/o benefit. Pt notes catching pain over lat aspect of radial surface o f wrist. Xray R wrist image reviewed--some degenerative change of car pal but no tenderness at the site of inflammation 2. asked about lifescan screening. Former smoker but no hx o f ASHD, TIA or cva. Current Outpatient Medications on File Prior to Visit Medication Sig - amLODIPine (NORVASC) 10 mg tablet Take 1 tablet by mouth o nce daily. - atorvastatin (LIPITOR) 40 mg tablet Take 1 tablet by mouth once daily. For cholesterol. - metoprolol tartrate, short acting, (LO PRESSOR) 25 mg tablet Take 1 tablet by mouth twice daily. - doxazosin (CARDURA) 4 mg tablet Take 1 tablet by mouth justino ly at bedtime. - hydroCHLOROthiazide (HYDRODIURIL, ESIDRIX) 25 mg tablet Ta ke 1 tablet by mouth once daily. - cholecalciferol, vitamin D3, 4,000 unit cap Take 4,0 00 Units by mouth once daily. - aspirin, enteric coated (ADULT LOW DOSE ASPIRIN) 81 mg EC tablet Take 1 tablet by mouth once daily. - nitroglycerin sublingual ( NITROSTAT) 0.4 mg SL tablet Dissolve 1 tablet under the tongue every 5 minutes as needed. No current facility-administered medications on file prior t o visit. PAST MEDICAL HISTORY Diagnosis Date - Anemia 10/15/2013 - Benign essential tremor 07/03/2010 - CAD in pilot station artery - CKD (chronic kidney disease) stage 3, GFR 30-59 ml/min (HC C) 03/04/2017 - Diaphragmatic hernia without mention of obstruction or mercy grene Hiatal hernia - Dyslipidemia - Elevated PSA 03/11/2019 - Esophageal reflux Gastroesophageal reflux - Esophagitis, unspecified - Essential hypertension, benign - Family history of malignant neoplasm of gastrointestinal t ract - Hyperlipidemia LDL goal < 100 09/03/2013 - Hyperparathyroidism ([facility]) 03/04/2017 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: secondary hyp erparathyroidism--?due to CKD III - 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 deficiency ([facility]) 2013 - Hyperparathyroidism, primary ([facility]) 05/27/13 - Mild renal insufficiency 10/15/2013 - NSTEMI (non-ST elevated myocardial infarction) ([facility]) 201709/06/14-- stent - Overweight (BMI 25.0-29.9) - Parathyroid adenoma 05/27/13 - Parathyroid adenoma 03/04/2017 parathyroidectomy 05/27/13 - Personal history of colonic polyps Colon polyps - TIA (transient ischemic attack) 06/2010 - Ulcer of esophagus without bleeding - Unspecified transient cerebral ischemia WITH HEMIPHORESIS - Vitamin D deficiency 10/15/2013 FAMILY HISTORY Problem Relation Age of Onset - Colon Cancer Mother - Colon Cancer Father - Arthritis Mother - Heart Father [place] * 2 - Prostate Cancer Brother - Hypertension Brother - None Brother Social History Tobacco Use - Smoking status: Former Smoker - Smokeless tobacco: Never Used - Tobacco comment: quit 1975 Substance Use Topics - Alcohol use: Yes Comment: socially - Drug use: No BP 131/69 Pulse (!) 59 Resp 18 Wt 85.7 kg (189 lb) B [place] 29.16 kg/m? OBJECTIVE: APPEARANCE Well appearing, alert, in no acute distress, we ll-hydrated, well nourished. NECK Supple, no adenopathy; thyroid symmetric, normal size , L carotid bruit EXTREMITIES tenderness over thumb extensor tendo n. Patricia test positive. No tenderness of carpals, full painless flex/ext of R wrist. 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 ASSESSMENT: tendinitis L thumb L carotid bruit-asymptomatic PLAN: R thumb splint rest R thumb --avoid grasping with palm down advil or aleve as needed for pain may use ice as needed for pain ASA 81 mg daily carotid US Celestina A Cebul, III MD Celestina A Cebul, III MD 07/03/2019 2:16 PM Signed PLAN: R thumb splint rest R thumb --avoid grasping with palm down advil or aleve as needed for pain may use ice as needed for pain Celestina Piña III MD Referring Provider: SELF [[id number]] Allergies As of Date: 07/03/2019 Noted Allergy Reaction ACCUPRIL (QUINAPRIL HCL) 07/31/2005 AXID (NIZATIDINE) 07/31/2005 ENTEX PSE (PSEUDOEPHEDRINE-GUAIFE*07/31/2005 LISINOPRIL 11/22/2010 3 - Cough Date Reviewed: 07/03/2019 Reviewed by: Edita ([facility]) CLIF De Oliveira - Fully Assessed Reason for Visit: Right wrist pain [Other] Primary Visit Diagnosis:Tendinitis of thumb [M77.9] Other Visit Diagnosis:Bruit of left carotid artery [R09.89] Order(s):US CAROTID ARTERIES [facility] [[id number]] Order #: [id number] FUTURE Prescriptions as of 07/03/2019 Sig: AMLODIPINE 10 MG TABLET Take 1 tablet by mouth once d* NITROGLYCERIN 0.4 MG SUBLINGU* Dissolve 1 tablet under the t * ATORVASTATIN 40 MG TABLET Take 1 tablet by mouth once d* METOPROLOL TARTRATE 25 MG TAB* Take 1 tablet by mouth twice * DOXAZOSIN 4 MG TABLET Take 1 tablet by mouth daily * HYDROCHLOROTHIAZIDE 25 MG TAB* Take 1 tablet by mouth once d * CHOLECALCIFEROL (VITAMIN D3) * Take 4,000 Units by mouth onc * ASPIRIN 81 MG TABLET,DELAYED * Take 1 tablet by mouth once d * Problem List As Of Date 07/03/2019 Noted Resolved BENIGN HYPERTENSION [I10] PERS HX COLONIC POLYPS [Z86.010] More... More... ESOPHAGEAL REFLUX [K21.9] More... Unspecified transient cerebral ischemia [G45.9] 01/15/2018 More... 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 Parathyroid adenoma [D35.1] 03/04/2017 More... CKD (chronic kidney disease) stage 3, GFR 30-59*03/04/2017 ASHD (arteriosclerotic heart disease) [I25.10] 03/06/2018 NSTEMI (non-ST elevated myocardial infarction) *03/06/2018 More... Elevated PSA [R97.20] 03/11/2019 Other instructions from your clinician: PLAN: R thumb splint rest R thumb --avoid grasping with palm down advil or aleve as needed for pain may use ice as needed for pain Celestina Piña III MD Encounter Status:Closed by CELESTINA PIÑA III, MD on 07/03/19 progress on 2019-06 PROGRESS HNO ID: [id number] Normal 06-22-2019 [facility] Author: Amalia Hanna LPN [facility] ([id number]) Service: ? Author Type: ? Type: Progress Notes Filed: 06/22/2019 9:50 AM Note Text: Manual Readin/74 Pulse: 54 BP Nick average: 137/69 P: 51 Repeat BP Check: 145/79 P58 #1 145/68 P52 #2 137/67 P51 #4 131/72 P51 #5 136/68 P50 #6 Reason for blood pressure check - Last BP elevated Patient is: Taking medication as prescribed Yes Took medication today Yes If no, date medication last taken N/A Experiencing side effects No BP was elevated at last appt 06/16/2019 with UC. Taking all m edications as prescribed. Denies any chest pain, shortness of breath, dizz iness, or headaches. Daily caffeine use. 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 Alert and oriented. Pt has been identified by name and birthdate: Yes Allergies reviewed: Yes Latex allergy: no. Medication - prescribed and OTC reviewed and updated: Yes Do you need any prescription refills prior to your next visi t: No Health Maintenance: Reviewed and not up to date and provider notified Patient advised that he would be contacted after review by William fletcher senior medical transcriptionist. Amalia Hanna LPN cnnurse on [facility] Nurse Visit (FAMPWS) Normal 9 Duff SHARAN [place] JR ([id number]) 1940 [facility] Date Time Provider Department ([id number]) 06/22/19 9:15 AM [place] [facility] During your visit today, we recorded the following informati on about you: Pulse Blood pressure 51/minute 137/69 Amalia Hanna LPN 06/22/2019 9:50 AM Signed Manual Readin/74 Pulse: 54 BP Nick average: 137/69 P: 51 Repeat BP Check: 145/79 P58 #1 145/68 P52 #2 137/67 P51 #4 131/72 P51 #5 136/68 P50 #6 Reason for blood pressure check - Last BP elevated Patient is: Taking medication as prescribed Yes Took medication today Yes If no, date medication last taken N/A Experiencing side effects No BP was elevated at last appt 06/16/2019 with UC. Taking all m edications as prescribed. Denies any chest pain, shortness of breath, dizz iness, or headaches. Daily caffeine us e. Past personal history of tobacco use; no current exposure. Alert and oriented. Pt has been identified by name and birthdate: Yes Allergies reviewed: Yes Latex allergy: no. Medication - prescribed and OTC reviewed and updated: Yes Do you need any prescription refills prior to your next visi t: No Health Maintenance: Reviewed and not up to date and provider notified Patient advised that he would be contacted after review by William fletcher senior medical transcriptionist. Amalia Jacques SUBSTITUTE BUS DRIVER Referring Provider: CELESTINA PIÑA III [[id number]] Allergies As of Date: 06/22/2019 Noted Allergy Reaction ACCUPRIL (QUINAPRIL HCL) 07/31/2005 AXID (NIZATIDINE) 07/31/2005 ENTEX PSE (PSEUDOEPHEDRINE-GUAIFE*07/31/2005 LISINOPRIL 11/22/2010 3 - Cough Date Reviewed: 06/16/2019 Reviewed by: Clementine Montesinos LPN - Fully Assessed Reason for Visit: Blood Pressure Check [195] Primary Visit Diagnosis:Essential hypertension, benign [I10] Prescriptions as of 06/22/2019 Sig: METHYLPREDNISOLONE 4 MG TABLE* Follow dosing instructions, t * AMLODIPINE 10 MG TABLET Take 1 tablet by mouth once d* NITROGLYCERIN 0.4 MG SUBLINGU* Dissolve 1 tablet under the t * ATORVASTATIN 40 MG TABLET Take 1 tablet by mouth once d* METOPROLOL TARTRATE 25 MG TAB* Take 1 tablet by mouth twice * DOXAZOSIN 4 MG TABLET Take 1 tablet by mouth daily * HYDROCHLOROTHIAZIDE 25 MG TAB* Take 1 tablet by mouth once d * CHOLECALCIFEROL (VITAMIN D3) * Take 4,000 Units by mouth onc * ASPIRIN 81 MG TABLET,DELAYED * Take 1 tablet by mouth once d * Problem List As Of Date 06/22/2019 Noted Resolved BENIGN HYPERTENSION [I10] PERS HX COLONIC POLYPS [Z86.010] More... More... ESOPHAGEAL REFLUX [K21.9] More... Unspecified transient cerebral ischemia [G45.9] 01/15/2018 More... 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 Parathyroid adenoma [D35.1] 03/04/2017 More... CKD (chronic kidney disease) stage 3, GFR 30-59*03/04/2017 ASHD (arteriosclerotic heart disease) [I25.10] 03/06/2018 NSTEMI (non-ST elevated myocardial infarction) *03/06/2018 More... Elevated PSA [R97.20] 03/11/2019 Encounter Status:Closed by AMALIA HANNA LPN on 06/22/19 xr wrist 3v pa/lat/obl rt on 2019-06-16 XR WRIST 3V * * *Final Report* * * Normal 06-16 [facility] PA/LAT/OBL RT DATE OF EXAM: Jun 16 2019 2:24PM Duff WOX [id number] - XR WRIST 3V PA/LAT/OBL RT / ([id number]) PROCEDURE REASON: Right wrist pain * * * * Physician Interpretation * * * * Right wrist HISTORY: 78 years old Clinical information: Right wrist pain Radial sided right wrist pain x 2 weeks without injury TECHNIQUE: Images: XR WRIST 3V PA/LAT/OBL RT Comparison: None. RESULT: Findings: 3 mm hamate cysts. No joint space narrowing, fracture or bon y destruction. IMPRESSION: Carpal cyst, otherwise unremarkable. Management Nurse Rn: PSCB Transcribe Date/Time: Jun 16 2019 2:31P Dictated by : VICKY EM MD This examination was interpreted and the report reviewed and electronically signed by: VICKY EM MD on Jun 16 2019 2:33PM EST [id number] progress on 2019-06 PROGRESS HNO ID: [id number] Normal 06-16-2019 [facility] Author: Mari Newman (Rt) Chucky Funez ([id number]) Service: ? Author Type: Jig Boring Machine Operator For Metal Type: Progress Notes Filed: 06/16/2019 2:24 PM Note Text: Radiology Service Progress Note PATIENT NAME: Sharan Duran JR DATE OF SERVICE: June 16, 2019 TIME: 2:24 PM PATIENT IDENTITY VERIFICATION COMPLETED USING TWO (2) METHOD S: Name and Date of confirmed by patient verbally. PATIENT GENDER DATA: Male PATIENT RELEVANT IMPLANT DATA REVIEWED: Not Applicable RADIOLOGY DEPARTMENT: General X-ray: Exam(s) Completed: Uppe r Extremity X-Ray(s): Wrist, right : PERIPHERAL IV DATA: Not applicable SIGNED BY: Mari Funez, RT June 16, 2019 2:24 PM PROGRESS HNO ID: [id number] Normal 06-16-2019 [facility] Author: Suleman Alves) Brianna Bill ([id number]) Service: ? Author Type: Physician Cardroom Hand Type: Progress Notes Filed: 06/16/2019 4:47 PM Note Text: Subjective HPI Sharan Duran JR is a 78 year old male who presents with rig ht wrist pain for the past couple of weeks. He denies any injury. She does work out the yard quite a bit and has been splitting, carrying wood, and raking. He denies any numbness or tingling in his hand. No weakness. He is to take Tylenol one time for the pain and Aleve one time for th e pain. He has also tried ice and heat with little relief. PAST MEDICAL HISTORY Diagnosis Date - Anemia 10/15/2013 - Benign essential tremor 07/03/2010 - CAD in pilot station artery - CKD (chronic kidney disease) stage 3, GFR 30-59 ml/min (HC C) 03/04/2017 - Diaphragmatic hernia without mention of obstruction or mercy grene Hiatal hernia - Dyslipidemia - Elevated PSA 03/11/2019 - Esophageal reflux Gastroesophageal reflux - Esophagitis, unspecified - Essential hypertension, benign - Family history of malignant neoplasm of gastrointestinal t ract - Hyperlipidemia LDL goal < 100 09/03/2013 - Hyperparathyroidism ([facility]) 03/04/2017 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: 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 - 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 deficiency ([facility]) 2013 - Hyperparathyroidism, primary ([facility]) 05/27/13 - Mild renal insufficiency 10/15/2013 - NSTEMI (non-ST elevated myocardial infarction) ([facility]) 201709/06/14-- stent - Overweight (BMI 25.0-29.9) - Parathyroid adenoma 05/27/13 - Parathyroid adenoma 03/04/2017 parathyroidectomy 05/27/13 - Personal history of colonic polyps Colon polyps - TIA (transient ischemic attack) 06/2010 - Ulcer of esophagus without bleeding - Unspecified transient cerebral ischemia WITH HEMIPHORESIS - Vitamin D deficiency 10/15/2013 Current Outpatient Medications on File Prior to Visit: amLODIPine (NORVASC) 10 mg tablet Take 1 tablet by mouth onc e daily. nitroglycerin sublingual (NITROSTAT) 0.4 mg SL tablet Dissol ve 1 tablet under the tongue every 5 minutes as needed. atorvastatin (LIPITOR) 40 mg tablet Take 1 tablet by mouth o nce daily. For cholesterol. metoprolol tartrate, short acting, (LOPRESSOR) 25 mg tablet Take 1 tablet by mouth twice daily. doxazosin (CARDURA) 4 mg tablet Take 1 tablet by mouth daily at bedtime. hydroCHLOROthiazide (HYDRODIURIL, ESIDRIX) 25 mg tablet Take 1 tablet by mouth once daily. cholecalciferol, vitamin D3, 4,000 unit cap Take 4,000 Units by mouth once daily. aspirin, enteric coated (ADULT LOW DOSE ASPIRIN) 81 mg EC ta blet Take 1 tablet by mouth once daily. No current facility-administered medications on file prior t o visit. ALLERGIES Allergen Reactions - Accupril [Quinapril* - Axid [Nizatidine] - Entex Pse [Pseudoep* - Lisinopril Cough Review of Systems Constitutional: Negative for chills and fever. Respiratory: Negative for shortness of breath. Cardiovascular: Negative for chest pain. Musculoskeletal: Positive for joint pain. Negative for back pain, falls, myalgias and neck pain. Skin: Negative for rash. Neurological: Negative for tingling, sensory change and foca l weakness. BP 152/88 Pulse 65 Temp 36.2 ?C (97.1 ?F) (Tympanic) R malou 16 Wt 87.6 kg (193 lb 3.2 oz) BMI 29.81 kg/m? Objective Physical Exam Constitutional: He is well-developed, well-nourished, and in no distress. HENT: Head: Normocephalic and atraumatic. Eyes: Pupils are equal, round, and reactive to light. EOM ar e normal. Neck: Normal range of motion. Cardiovascular: Normal rate and regular rhythm. Pulmonary/Chest: Effort normal. Musculoskeletal: Right wrist: He exhibits tenderness and swelling. He exhibit s normal range of motion, no crepitus and no deformity. Arms: ASSESSMENT/PLAN: 1. Right wrist pain - ICD9: 719.43, ICD10: M25.531 - Likely tendinitis X-ray of right wrist shows 3 mm him a cyst but no acute proc ess. Medrol dose pack. Ice. - XR WRIST GENERAL 3V PA/LAT/OBL RT - METHYLPREDNISOLONE 4 MG TABLETS IN A DOSE PACK Suleman Reed PA-C cnov on 2019-06-16 CNOV Office Visit (UCWSTR) Normal 06-16-20 [facility] SHARAN DURAN JR ([id number]) 1940 [facility] Date Time Provider Department ([id number]) 06/16/19 2:00 PM SULEMAN REED (JONNA) WSTR During your visit today, we recorded the following informati on about you: Temperature Pulse Respiration Blood pressure 97.1 degrees 65/minute 16/minute 152/88 Weight 87.6 kg Suleman Reed PA-C 06/16/2019 4:47 PM Signed Subjective HPI Sharan Guzman Roger is a 78 year old male who prese nts with right wrist pain for the past couple of weeks. He denies any injury. She does wor k out the yard quite a bit and has been splitting, carrying wo od, and raking. He denies any numbness or tingling in his hand. No weakness. H e is to take Tylenol one time for the pain and Aleve one time for the pain. He has a lso tried ice and heat with little relief. PAST MEDICAL HISTORY Diagnosis Date - Anemia 10/15/2013 - Benign essential tremor 07/03/2010 - CAD in pilot station artery - CKD (chronic kidney disease) stage 3, GFR 30-59 ml/min (HC C) 03/04/2017 - Diaphragmatic hernia without mention of obstruction or mercy grene Hiatal hernia - Dyslipidemia - Elevated PSA 03/11/2019 - Esophageal reflux Gastroesophageal reflux - Esophagitis, unspecified - Essential hypertension, benign - Family history of malignant neoplasm of gastrointestinal t ract - Hyperlipidemia LDL goal < 100 09/03/2013 - Hyperparathyroidism (HCC) 03/04/2017 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: secondary hyp erparathyroidism--?due to CKD III - 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 deficiency ([facility]) 2013 - Hyperparathyroidism, primary ([facility]) 05/27/13 - Mild renal insufficiency 10/15/2013 - NSTEMI (non-ST elevated myocardial infarction) ([facility]) 201709/06/14-- stent - Overweight (BMI 25.0-29.9) - Parathyroid adenoma 05/27/13 - Parathyroid adenoma 03/04/2017 parathyroidectomy 05/27/13 - Personal history of colonic polyps Colon polyps - TIA (transient ischemic attack) 06/2010 - Ulcer of esophagus without bleeding - Unspecified transient cerebral ischemia WITH HEMIPHORESIS - Vitamin D deficiency 10/15/2013 Current Outpatient Medications on File Prior to Visit: amLODIPine (NORVASC) 10 mg tablet Take 1 tablet by mouth onc e daily. nitroglycerin sublingual (NITROSTAT) 0.4 mg SL t ablet Dissolve 1 tablet under the tongue every 5 minutes as needed. atorvastatin (LIPITOR) 40 mg tablet Take 1 tablet by mouth o nce daily. For cholesterol. metoprolol tartrate, short acting, (LOPRESSOR) 25 mg t ablet Take 1 tablet by mouth twice daily. doxazosin (CARDURA) 4 mg tablet Take 1 tablet by mouth daily at bedtime. hydroCHLOROthiazide (HYDRODIURIL, ESIDRI X) 25 mg tablet Take 1 tablet by mouth once daily. cholecalciferol, vitamin D3, 4,000 unit cap Take 4,000 Units by mouth once daily. aspirin, enteric coated (ADULT LOW DOSE ASPIRIN) 81 mg EC tablet Take 1 tablet by mouth once daily. No current facility-administered medications on file prior t o visit. ALLERGIES Allergen Reactions - Accupril [Quinapril* - Axid [Nizatidine] - Entex Pse [Pseudoep* - Lisinopril Cough Review of Systems Constitutional: Negative for chills and fever. Respiratory: Negative for shortness of breath. Cardiovascular: Negative for chest pain. Musculoskeletal: Positive for joint pain. Negative for back pain, falls, myalgias and neck pain. Skin: Negative for rash. Neurological: Negative for tingling, sensory change and foca l weakness. BP 152/88 Pulse 65 Temp 36.2 ?C (97.1 ?F) (Tympanic) R malou 16 Wt 87.6 kg (193 lb 3.2 oz) BMI 29.81 kg/m? Objective Physical Exam Constitutional: He is well-developed, well-nourished, and in no distress. HENT: Head: Normocephalic and atraumatic. Eyes: Pupils are equal, round, and reactive to light. EOM ar e normal. Neck: Normal range of motion. Cardiovascular: Normal rate and regular rhythm. Pulmonary/Chest: Effort normal. Musculoskeletal: Right wrist: He exhibits tenderness and swelling. He exhibit s normal range of motion, no crepitus and no deformity. Arms: ASSESSMENT/PLAN: 1. Right wrist pain - ICD9: 719.43, ICD10: M25.531 - Likely tendinitis X-ray of right wrist shows 3 mm him a cyst but no acut e process. Medrol dose pack. Ice. - XR WRIST GENERAL 3V PA/LAT/OBL RT - METHYLPREDNISOLONE 4 MG TABLETS IN A DOSE PACK JOVITA Dodge PA-C 06/16/2019 2:46 PM Signed TTENDINITIS: You have tendinitis. This means there is inflammation in the area that surrounds the tendon. Most often tendinitis is d ue to repeated use or trauma. The symptoms of this injury are: pain, s welling, limited motion, and sometimes a grating sensation with movement. Treatment includes: - Rest the injured area and avoid activities that make it hu rt. - Apply ice packs to the area to reduce swelling and pain. - Moist heat therapy can help improve motion after the pain and swelling improve. - Medication: Oral anti-inflammatory medicine is very helpfu l. Some- times cortisone drugs are injected around the inflamed tendon. Tendinitis can also be caused by infection; this requires immediate medical attention. Symptoms of infection include increasing pa in, redness, swelling, and disability. Please see your doctor or return here if you are concerned about possible infection, or if your con dition is not better after one week of treatment. Referring Provider: SELF [[id number]] Allergies As of Date: 06/16/2019 Noted Allergy Reaction ACCUPRIL (QUINAPRIL HCL) 07/31/2005 AXID (NIZATIDINE) 07/31/2005 ENTEX PSE (PSEUDOEPHEDRINE-GUAIFE*07/31/2005 LISINOPRIL 11/22/2010 3 - Cough Date Reviewed: 06/16/2019 Reviewed by: Clementine Montesinos LPN - Fully Assessed Reason for Visit: right wrist pain [Other] Cmt: x 2 weeks-cannot recall an inj ury Primary Visit Diagnosis:Right wrist pain [M25.531] Order(s):XR WRIST GENERAL 3V PA/LAT/OBL RT [[id number]] Order #: [id number] FUTURE methylPREDNISolone (MEDROL, JESSICA,) 4 mg Dose-PackFollow dosin g instructions, take with food.Disp: 1 PackageRfl: 0 Prescriptions as of 06/16/2019 Sig: AMLODIPINE 10 MG TABLET Take 1 tablet by mouth once d* NITROGLYCERIN 0.4 MG SUBLINGU* Dissolve 1 tablet under the t * ATORVASTATIN 40 MG TABLET Take 1 tablet by mouth once d* METOPROLOL TARTRATE 25 MG TAB* Take 1 tablet by mouth twice * DOXAZOSIN 4 MG TABLET Take 1 tablet by mouth daily * HYDROCHLOROTHIAZIDE 25 MG TAB* Take 1 tablet by mouth once d * CHOLECALCIFEROL (VITAMIN D3) * Take 4,000 Units by mouth onc * ASPIRIN 81 MG TABLET,DELAYED * Take 1 tablet by mouth once d * METHYLPREDNISOLONE 4 MG TABLE* Follow dosing instructions, t * Problem List As Of Date 06/16/2019 Noted Resolved BENIGN HYPERTENSION [I10] PERS HX COLONIC POLYPS [Z86.010] More... More... ESOPHAGEAL REFLUX [K21.9] More... Unspecified transient cerebral ischemia [G45.9] 01/15/2018 More... Ulcer of esophagus without bleeding [K22.10] 10/15/2013 BPH with obstruction/lower urinary tract sympto*INVALID FOR* Esophagitis, unspecified [K20.9] INVALID FOR*10/15/2013 Benign essential tremor [G25.0] INVALID FOR* Hyperlipidemia with target LDL less than 100 [E*INVALID FOR* 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 deficiency*INVALID FOR* 03/04/2017 Vitamin D deficiency [E55.9] INVALID FOR*03/04/2017 Anemia [D64.9] INVALID FOR* Parathyroid adenoma [D35.1] INVALID FOR*12/24/2014 Hyperparathyroidism (HCC) [E21.3] INVALID FOR* More... Parathyroid adenoma [D35.1] INVALID FOR* More... CKD (chronic kidney disease) stage 3, GFR 30-59*INVALID FOR* ASHD (arteriosclerotic heart disease) [I25.10] INVALID FOR* NSTEMI (non-ST elevated myocardial infarction) *INVALID FOR* More... Elevated PSA [R97.20] INVALID FOR* Other instructions from your clinician: TTENDINITIS: You have tendinitis. This means there is inflammation in the area that surrounds the tendon. Most often tendinitis is due to repeat ed use or trauma. The symptoms of this injury are: pain, swelling, rivero ited motion, and sometimes a grating sensation with movement. Treatment i ncludes: - Rest the injured area and avoid activities that make it hu rt. - Apply ice packs to the area to reduce swelling and pain. - Moist heat therapy can help improve motion after the pain and swelling improve. - Medication: Oral anti-inflammatory medicine is very helpfu l. Some- times cortisone drugs are injected around the inflamed tendon. Tendinitis can also be caused by infection; this requires im mediate medical attention. Symptoms of infection include increasing pain, redness, swelling, and disability. Please see your doctor or return here if you are concerned about possible infection, or if your co ndition is not better after one week of treatment. Prescriptions ordered this encounter Disp Refills Start End METHYLPREDNISOLONE 4 MG TABLETS IN A* 1 Pa* 0 06/16/201906/2019 Sig: Follow dosing instructions, take with food. Medications Discontinued During This Encounter ciprofloxacin HCl (CIPRO) 250 mg tab* 13 t* 0 01/15/20182018 Route: ORAL Sig: Take 1 tablet by mouth twice daily. Patient not taking: Reported on 03/09/2019 Disc: Course of therapy completed Encounter Status:Closed by SULEMAN REED PA-C on 06/16/19 shaniquan on 2019-05-18 CNPN Telephone (FAMPWS) Normal 05-18-2019 [facility] SHARAN [place] ([id number]) 1940 [facility] Date Time Provider Department ([id number]) 05/18/19 CELESTINA PIÑA III During your visit today, we recorded the following informati on about you: Temi Shinkolby Pss 05/18/2019 9:09 AM Signed Patient has been identified by name and date of : Yes Patient calling today and states that the medication losarti n is no longer available. Please prescribe an alternative. RX INSTRUCTIONS: Patient aware RX will be sent to pharmacy. No need to notify patient. Temi Bishop Piña III MD 05/18/2019 9:45 PM Signed Discontinue losartan and increase amlodipine from 5 mg daily to 10 mg daily. Nurse blood pressure check in 3 weeks after making the pilo nge. Prescription will be sent to the local pharmacy Celestina Piña III, MD, FAAFP Edita De Oliveira CMA, MA 05/19/2019 8:31 AM Signed Rx has been faxed to [facility] per patien t request. Patient is scheduled for [place] on 06/22. Reminder sent in mail. Edita De Oliveira CMA Allergies As of Date: 05/18/2019 Noted Allergy Reaction ACCUPRIL (QUINAPRIL HCL) 07/31/2005 AXID (NIZATIDINE) 07/31/2005 ENTEX PSE (PSEUDOEPHEDRINE-GUAIFE*07/31/2005 LISINOPRIL 11/22/2010 3 - Cough Date Reviewed: 03/09/2019 Reviewed by: Edita Green) CLIF De Oliveira - Fully Assessed Reason for Visit: Refill Request [94] Order(s):amLODIPine (NORVASC) 10 mg tabletTake 1 tablet by m outh once daily.Disp: 30 tabletRfl: 12 Prescriptions as of 05/18/2019 Sig: AMLODIPINE 10 MG TABLET Take 1 tablet by mouth once d* NITROGLYCERIN 0.4 MG SUBLINGU* Dissolve 1 tablet under the t * ATORVASTATIN 40 MG TABLET Take 1 tablet by mouth once d* METOPROLOL TARTRATE 25 MG TAB* Take 1 tablet by mouth twice * DOXAZOSIN 4 MG TABLET Take 1 tablet by mouth daily * HYDROCHLOROTHIAZIDE 25 MG TAB* Take 1 tablet by mouth once d * CIPROFLOXACIN 250 MG TABLET Take 1 tablet by mouth twice * Patient not taking: Reported on 03/09/2019 CHOLECALCIFEROL (VITAMIN D3) * Take 4,000 Units by mouth onc * ASPIRIN 81 MG TABLET,DELAYED * Take 1 tablet by mouth once d * Problem List As Of Date 05/18/2019 Noted Resolved BENIGN HYPERTENSION [I10] PERS HX COLONIC POLYPS [Z86.010] More... More... ESOPHAGEAL REFLUX [K21.9] More... Unspecified transient cerebral ischemia [G45.9] 01/15/2018 More... Ulcer of esophagus without bleeding [K22.10] 10/15/2013 BPH with obstruction/lower urinary tract sympto*INVALID FOR* Esophagitis, unspecified [K20.9] INVALID FOR*10/15/2013 Benign essential tremor [G25.0] INVALID FOR* Hyperlipidemia with target LDL less than 100 [E*INVALID FOR* 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 deficiency*INVALID FOR* 03/04/2017 Vitamin D deficiency [E55.9] INVALID FOR*03/04/2017 Anemia [D64.9] INVALID FOR* Parathyroid adenoma [D35.1] INVALID FOR*12/24/2014 Hyperparathyroidism (HCC) [E21.3] INVALID FOR* More... Parathyroid adenoma [D35.1] INVALID FOR* More... CKD (chronic kidney disease) stage 3, GFR 30-59*INVALID FOR* ASHD (arteriosclerotic heart disease) [I25.10] INVALID FOR* NSTEMI (non-ST elevated myocardial infarction) *INVALID FOR* More... Elevated PSA [R97.20] INVALID FOR* Prescriptions ordered this encounter Disp Refills Start End AMLODIPINE 10 MG TABLET 30 t* 12 05/18/2019 Class: Print RX Cmt: dose increase discontinue losartan Route: ORAL Sig: Take 1 tablet by mouth once daily. Medications Discontinued During This Encounter losartan (COZAAR) 50 mg tablet 90 t* 3 01/13/2019 05/18/2019 Route: ORAL Sig: Take 1 tablet by mouth once daily. Disc: Availability amLODIPine (NORVASC) 5 mg tablet 90 t* 3 09/09/2018 05/18/2019 Class: [facility] Route: ORAL Sig: Take 1 tablet by mouth once daily. Disc: Dosage adjustment Encounter Status:Closed by EDITA DE OLIVEIRA CMA on 05/19/19 xr hand minimum 3 views right on 2018-12-23 XR HAND MINIMUM ORIGINAL Normal 12-23-2018 [facility] 3 VIEWS RIGHT XR HAND MINIMUM 3 VIEWS RIGHT [facility] [place] ([place]) ([id number]) CLINICAL STATEMENT: eval DIP rt index finger COMPARISON: None FINDINGS:Postsurgical change to the distal interphalangeal joint of the RIGHT hand is noted. There are underlying degenerative changes present throughout the imaged articular surfaces. There is redemons tration of posttraumatic pilo nge to the base of the proximal phalanx of the 2nd digit and distal phalanx of the 1st digit. IMPRESSION:Subacute posterio r RIGHT change to the osseous structures with postsurgical change to the distal interphalangeal joint and middle phalanx of the 2nd digit Interpreted By: Teressa Oconnor MD Preliminary Report By: Teressa Oconnor MD Electronically Signed By: Teressa Oconnor MD Dictated Date: 12/23/2018 4:13:36 PM Prelim Date: 12/23/2018 4:13:36 PM Sign Date: 12/23/2018 4:14:24 PM bmp on 2018-11-10 Calcium mass conc 9.7 8.4-10.1 mg/dL Normal 11-10-2018 [facility] ([place]) ([id number]) Comment: Performed By: #### GFR, BMP #### [address] [address] Chloride molar conc 108 98-110 mEq/L Normal 11-10-2018 [facility] ([place]) ([id number]) Comment: Performed By: #### GFR, BMP #### [address] [address] CO2 molar conc 26 22-32 mEq/L Normal 11-10-2018 [facility] ([place]) (19832) Comment: Performed By: #### GFR, BMP #### [address] [address] Creatinine mass conc 1.82 0.60-1.40 mg/dL High 9 [facility] ([place]) (0000 0) Comment: Performed By: #### GFR, BMP #### [address] [address] Electrolyte Balance 8.0 4.0-15.0 mEq/L Normal 11-10-2018 [facility] ([place]) (0000 0) Comment: Performed By: #### GFR, BMP #### [address] [address] Glucose mass conc 91 82-115 mg/dL Normal 11-10-2018 [facility] ([place]) ([id number]) Comment: Performed By: #### GFR, BMP #### [address] [address] Potassium molar conc 5.1 3.5-5.0 mEq/L High 9 [facility] ([place]) ([id number]) Comment: Performed By: #### GFR, BMP #### [place] [id number] Sodium molar conc 142 136-145 mEq/L Normal 11-10-2018 [facility] ([place]) ([id number]) Comment: Performed By: #### GFR, BMP #### [place] [address] Urea nitrogen mass conc 52.0 8.0-22.0 mg/dL High 2018 [facility] ([place]) (0000 0) Comment: Performed By: #### GFR, BMP #### [address] [address] Urea nitrogen/Creatinine mass 28.6 10.0-22.0 ratio High 11-10-2018 [facility] ([place]) ([id number]) Comment: Performed By: #### GFR, BMP #### [address] [address] .gfr on 2018-11-10 GFR Non- 36 ml/min/1.73sqm Normal 11-10-2018 [facility] ([place]) ([id number]) Comment: Result Comment: GFR Population mean for Afri can Swedish, Non- Americans Ages 20-29 = 116 mL/min/1.73 sq.m. Ages 30-39 = 107 mL/min/1.73 sq.m. Ages 40-49 = 99 mL/min/1.73 sq.m. Ages 50-59 = 93 mL/min/1.73 sq.m. Ages 60-69 = 85 mL/min/1.73 sq.m. Ages 70+ = 75 mL/min/1.73 sq .m. Chronic Kidney Disease: Less than 60 mL/min/1.73 square meters End Stage Renal Disease: Les s than 15 mL/min/1.73 square meters Performed By: #### GFR, BMP #### [address] [address] GFR 44 ml/min/1.73sqm Normal 04-0 [facility] ([place]) (0000 0) Comment: Result Comment: GFR Population mean for Afri can Swedish, Non- Americans Ages 20-29 = 116 mL/min/1.73 sq.m. Ages 30-39 = 107 mL/min/1.73 sq.m. Ages 40-49 = 99 mL/min/1.73 sq.m. Ages 50-59 = 93 mL/min/1.73 sq.m. Ages 60-69 = 85 mL/min/1.73 sq.m. Ages 70+ = 75 mL/min/1.73 sq .m. Chronic Kidney Disease: Less than 60 mL/min/1.73 square meters End Stage Renal Disease: Les s than 15 mL/min/1.73 square meters Performed By: #### GFR, BMP #### [address] [address] bmp on 2018-11-06 Creatinine mass conc 1.85 0.60-1.40 mg/dL High 9 [facility] ([place]) (0000 0) Comment: Performed By: #### BMP, GFR #### [address] [address] Urea nitrogen/Creatinine mass 28.1 10.0-22.0 ratio High 11-06-2018 [facility] ([place]) ([id number]) Comment: Performed By: #### BMP, GFR #### [address] [address] Calcium mass conc 9.4 8.4-10.1 mg/dL Normal 11-06-2018 [facility] ([place]) (52341) Comment: Performed By: #### BMP, GFR #### [address] [address] Chloride molar conc 111 98-110 mEq/L High 11-06-2018 [facility] ([place]) (62011) Comment: Performed By: #### BMP, GFR #### [address] [address] CO2 molar conc 26 22-32 mEq/L Normal 11-06-2018 [facility] ([place]) (94656) Comment: Performed By: #### BMP, GFR #### [address] [address] Electrolyte Balance 6.0 4.0-15.0 mEq/L Normal 11-06-2018 [facility] ([place]) (0000 0) Comment: Performed By: #### BMP, GFR #### [address] [address] Glucose mass conc 86 82-115 mg/dL Normal 11-06-2018 [facility] ([place]) (38785) Comment: Performed By: #### BMP, GFR #### [address] [address] Potassium molar conc 5.0 3.5-5.0 mEq/L Normal 9 [facility] ([place]) (0000 0) Comment: Performed By: #### BMP, GFR #### [address] [address] Sodium molar conc 143 136-145 mEq/L Normal 11-06-2018 [facility] ([place]) (07346) Comment: Performed By: #### BMP, GFR #### [address] [address] Urea nitrogen mass conc 52.0 8.0-22.0 mg/dL High 2018 [facility] ([place]) (0000 0) Comment: Performed By: #### BMP, GFR #### [address] [address] .gfr on 2018-11-06 GFR 43 ml/min/1.73sqm Normal - [facility] ([place]) (0000 0) Comment: Result Comment: GFR Population mean for Afri can Swedish, Non- Americans Ages 20-29 = 116 mL/min/1.73 sq.m. Ages 30-39 = 107 mL/min/1.73 sq.m. Ages 40-49 = 99 mL/min/1.73 sq.m. Ages 50-59 = 93 mL/min/1.73 sq.m. Ages 60-69 = 85 mL/min/1.73 sq.m. Ages 70+ = 75 mL/min/1.73 sq .m. Chronic Kidney Disease: Less than 60 mL/min/1.73 square meters End Stage Renal Disease: Les s than 15 mL/min/1.73 square meters Performed By: #### BMP, GFR #### [address] [address] GFR Non- 36 ml/min/1.73sqm Normal 11-06-2018 [facility] ([place]) ([id number]) Comment: Result Comment: GFR Population mean for Afri can Swedish, Non- Americans Ages 20-29 = 116 mL/min/1.73 sq.m. Ages 30-39 = 107 mL/min/1.73 sq.m. Ages 40-49 = 99 mL/min/1.73 sq.m. Ages 50-59 = 93 mL/min/1.73 sq.m. Ages 60-69 = 85 mL/min/1.73 sq.m. Ages 70+ = 75 mL/min/1.73 sq .m. Chronic Kidney Disease: Less than 60 mL/min/1.73 square meters End Stage Renal Disease: Les s than 15 mL/min/1.73 square meters Performed By: #### BMP, GFR #### [address] [address] xr hand minimum 3 views right on 2018-10-31 XR HAND MINIMUM 3 ORIGINAL Normal 10-31-2018 A [facility] VIEWS RIGHT XR HAND MINIMUM 3 VIEWS [facility] ([place]) ([id number]) CLINICAL STATEMENT: pain , table saw injury COMPARISON: None FINDINGS: There is a fracture through the midportion of the 1st distal phalanx with minimal comminution and 6 mm separation of the fragments. There is another mildly displaced fracture through the base of the 2nd proximal phalanx with artic ular extension. Irregular margin of bone is present in the head of the 2nd middle phalanx extending to the adjacent base of the distal phalanx. Not certain if this is acute o r chronic. No other definite acute fracture or dislocation. No soft tissue foreign body. IMPRESSION: Fracture of the 1st distal phalanx and the base of the 2nd proximal phalanx as described. Question additional posttraumatic injury at the 2nd DIP joint. Correlate clinically. Interpreted By: Toni Barton MD Preliminary Report By: Toni Barton MD Electronically Signed By: Toni Barton MD Dictated Date: 10/31/2018 3:52:54 PM Prelim Date: 10/31/2018 3:52:54 PM Sign Date: 10/31/2018 3:55:04 PM intact pth on 07-09 INTACT PTH 229.7 14.0-72.0 pg/mL High 07-09-2018 [facility] (00 [id number]) Comment: Performed By: #### CAC ####[place] [address]#### I PTH, D25OH ####[place] [address] [place] [address] 25-oh vitamin d total on 2018-07-09 25-OH Vitamin D Total 56.1 30.0-100.0 ng/mL Normal 07-09- 018 [facility] (144[address]) Comment: Result Comment: <10 Deficien cy10-29 [id number] Optimal Level>100 Possible Toxicity Performed By: #### CAC ####[place] [address]#### I PTH, D25OH ####[place] [address] [place] [address] [address] us thyroid on 07-08 US THYROID EXAM: US THYROID, 07/08/2018 Normal 07-08-2018 [facility] 08:50 AMCLINICAL INDICATIONS: [facility] thyroid cndtfrS68.1:[facility] nodule COMPARISON: Ultrasound ([id number]) thyroid 10/11/2016.TECHNIQUE: Real-time, grayscale ultrasound evaluation of the neck wasperformed in transverse and longitudinal orientations using a high-resolutionlinear array transducer. Color Doppler was utilized to assess vascular flow.FINDINGS:Background thyroid parenchyma is homogeneous. The right lobe measures 4.4 x1.7 x 1.7 cm and the left lobe measures 4.5 x 1.7 x 1.7 cm. The isthmus isnormal in appearance and measures 4 mm.Hypoechoic nodule in the posterior superior right thyroid measures 0.6 x 0.6 x0.9 cm, previously 0.7 x 0.7 x 0.8 cm. There is some internal vascularity.This is intermediate clinical suspicion.A cyst in the superior thyroid measures 0.2 x 0.3 x 0.3 cm, previously 0.2 x0.2 x 0.2 cm. This is benign.Small hypoechoic nodule in the mid to inferior right thyroid measures 0.2 x0.3 x 0.4 cm, previously 0.2 x 0.2 x 0.2 cm. This is intermediate clinicalsuspicion.Isoechoic to slightly hypoechoic nodule in the mid left thyroid measures 0.3 x0.4 x 0.5 cm, previously 0.2 x 0.3 x 0.4 cm. If this is measured in a similarfashion lesion is likely stable. This is low clinical suspicion.Small hypoechoic nodule inferior left thyroid measures 0.2 x 0.2 x 0.3 cm, notclearly identified on prior study.IMPRESSION: Multiple subcentimeter thyroid nodules present bilaterally, overall similar inappearance to prior exam. None of these meet size criteria for tissuesampling.* Lesions are classified using the [place] Thyroid Association guidelines [id number]. (Thyroid, Volume 26, #1, 2016) calcium - [address] rd lab on 2018-07-08 Calcium mass conc 10.1 8.6-10.5 mg/dL Normal 07-08-2018 O [facility]ter ([id number]) Comment: Performed By: #### CAC ####[place] [address] [address] [address]#### I PTH, D25OH ####[facility] [place] [place], [place] [address] [place], [place] [address] No panel information on 2018-07-08 EXAM: US THYROID, 07/08/2018 Invalid Int erpretation Code 07-08-2018 RADIOLOGY 08:50 AM CLINICAL INDICATIONS: thyroid nodule E04.1:Thyroid nodule COMPARISON: Ultrasound thyroid 10/11/2016. TECHNIQUE: Real-time, grayscale ultrasound evaluation of the neck was performed in transverse and longitudinal orientations using a high-resolution linear array transducer. Color Doppler was utilized to assess vascular flow. FINDINGS: Background thyroid parenchyma is homogeneous. The right lobe measures 4.4 x 1.7 x 1.7 cm and the left lobe measures 4.5 x 1.7 x 1.7 cm. The isthmus is normal in appearance and measures 4 mm. Hypoechoic nodule in the posterior superior right thyroid measures 0.6 x 0.6 x 0.9 cm, previously 0.7 x 0.7 x 0.8 cm. There is some internal vascularity. This is intermediate clinical suspicion. A cyst in the superior thyroid measures 0.2 x 0.3 x 0.3 cm, previously 0.2 x 0.2 x 0.2 cm. This is benign. Small hypoechoic nodule in the mid to inferior right thyroid measures 0.2 x 0.3 x 0.4 cm, previously 0.2 x 0.2 x 0.2 cm. This is intermediate clinical suspicion. Isoechoic to slightly hypoechoic nodule in the mid left thyroid measures 0.3 x 0.4 x 0.5 cm, previously 0.2 x 0.3 x 0.4 cm. If this is measured in a similar fashion lesion is likely stable. This is low clinical suspicion. Small hypoechoic nodule inferior left thyroid measures 0.2 x 0.2 x 0.3 cm, not clearly identified on prior study. User, Interfaces - 07/08/2018 Invalid In terpretation Code 07-08-2018 RADIOLOGY 10:37 AM EST EXAM: US THYROID, 07/08/2018 08:50 AM CLINICAL INDICATIONS: thyroid nodule E04.1:Thyroid nodule COMPARISON: Ultrasound thyroid 10/11/2016. TECHNIQUE: Real-time, grayscale ultrasound evaluation of the neck was performed in transverse and longitudinal orientations using a high-resolution linear array transducer. Color Doppler was utilized to assess vascular flow. FINDINGS: Background thyroid parenchyma is homogeneous. The right lobe measures 4.4 x 1.7 x 1.7 cm and the left lobe measures 4.5 x 1.7 x 1.7 cm. The isthmus is normal in appearance and measures 4 mm. Hypoechoic nodule in the posterior superior right thyroid measures 0.6 x 0.6 x 0.9 cm, previously 0.7 x 0.7 x 0.8 cm. There is some internal vascularity. This is intermediate clinical suspicion. A cyst in the superior thyroid measures 0.2 x 0.3 x 0.3 cm, previously 0.2 x 0.2 x 0.2 cm. This is benign. Small hypoechoic nodule in the mid to inferior right thyroid measures 0.2 x 0.3 x 0.4 cm, previously 0.2 x 0.2 x 0.2 cm. This is intermediate clinical suspicion. Isoechoic to slightly hypoechoic nodule in the mid left thyroid measures 0.3 x 0.4 x 0.5 cm, previously 0.2 x 0.3 x 0.4 cm. If this is measured in a similar fashion lesion is likely stable. This is low clinical suspicion. Small hypoechoic nodule inferior left thyroid measures 0.2 x 0.2 x 0.3 cm, not clearly identified on prior study. IMPRESSION IMPRESSION: Multiple subcentimeter thyroid nodules present bilaterally, overall similar in appearance to prior exam. None of these meet size criteria for tissue sampling. * Lesions are classified using the [place] Thyroid Association guidelines of 2015. (Thyroid, Volume 26, #1, 2016) ESSION: Multiple Invalid Interpretat ion Code 07-08-2018 RADIOLOGY subcentimeter thyroid nodules present bilaterally, overall similar in appearance to prior exam. None of these meet size criteria for tissue sampling. * Lesions are classified using the [place] Thyroid Association guidelines of 2015. (Thyroid, Volume 26, #1, 2016) Encounters Date Type Reason Provider Location 05-02-2020 - Patient encounter Patient encounter Edita Chen [facility] 05-02-2020 procedure status Master Route Comment: Population Health Navigation Outreach ([facility] project) 07-08-2018 Patient encounter ELOY VERDUOG [place] [facility] ([id number]) 07-08-2018 - Patient encounter Thyroid nodule Eloy Najera nd Steven 07-08-2018 procedure Other Other Other Other Comment: Arrived 07-08-2018 [facility] ([id number]) 07-08-2018 Patient encounter Nontoxic single [facility] Marco [facility] [place] [facility] ate procedure thyroid nodule [facility] x[facility] ([id number]) 04-19-2020 - Refill [facility] Medicin e 04-19-2020 [place] Comment: Refill Request Procedures Procedure Name Date Provider Location US scan of neck 07-08-2018 - 07-08-2018 [facility] Marco Antonio [facility] [place] ( [id number]) Colonoscopy 12-27-2013 - 12-27-2013 Jessy brink [facility] ([id number]) Plan of Treatment Plan Description Date Location DTAP,TDAP,TD (4 - Td) DTAP,TDAP,TD (4 - Td) 11-01-2028 - [facility] 11-01-2028 ([id number]) LIPID SCREEN LIPID SCREEN 09-24-2024 - [facility] 09-24-2024 ([id number]) DIABETES SCREEN DIABETES SCREEN 02-28-2023 - [facility] 02-28-2023 ([id number]) SERUM CREATININE SERUM CREATININE 02-28-2021 - [facility] 02-28-2021 ([id number]) ANNUAL PCP TEAM CHRONIC ANNUAL PCP TEAM CHRONIC 11-04-2020 - [facility] DISEASE VISIT DISEASE VISIT 11-04-2020 ([id number]) HEMOGLOBIN/HEMATOCRIT HEMOGLOBIN/HEMATOCRIT 11-04-2020 - [facility] 11-04-2020 ([id number]) LDL CHOLESTEROL LDL CHOLESTEROL 09-24-2020 - [facility] 09-24-2020 ([id number]) INFLUENZA (#1) INFLUENZA (#1) 2020 - [facility] 04-12-2020 ([id number]) BP CONTROLLED (<130/80) BP CONTROLLED (<130/80) 03-09-2020 - [facility] 03-09-2020 ([id number]) ADVANCE DIRECTIVE ADVANCE DIRECTIVE 09-21-2019 - [facility] inic DISCUSSION DISCUSSION 09-21-2019 ([id number]) COLONOSCOPY COLONOSCOPY 12-27-2018 - [facility] 12-27-2018 ([id number]) POTASSIUM POTASSIUM 10-11-2017 - [place] [facility] 10-11-2017 [facility] ([id number]) PNEUMOCOCCAL VACCINE PNEUMOCOCCAL VACCINE 2006 - [facility] lloyd SERIES (1 of 2 - PCV13) SERIES (1 of 2 - PCV13) 2006 [facility] ([id number]) COLON CANCER SCREENING COLON CANCER SCREENING 12-11-1991 - [facility] DISCUSSION DISCUSSION 12-11-1991 [facility] ([id number]) SHINGRIX VACCINE (1 of SHINGRIX VACCINE (1 of 12-11-1991 - [facility] 2) 2) 12-11-1991 ([id number]) TDAP (ADULT) TDAP (ADULT) 1960 - [facility] 1960 [facility] (85204) HEPATITIS C SCREENING HEPATITIS C SCREENING 12-11-1959 - [facility] 12-11-1959 ([id number]) TETANUS TETANUS 12-11-1959 - [facility] 12-11-1959 [facility] (60355) COLONOSCOPY SCRN NOT COLONOSCOPY SCRN NOT 05-02-2021 [facility] HIGH RISK HIGH RISK Endoscopy ([id number]) Routine Screening for malignant neoplasm of colon 1 Occurrences starting 05/02/2020 until 05/02/2021 Comment: 1 Occurrences starting 05/02 until 05/02/2021 PRE-PROCEDURE & PRE-PROCEDURE & 05-02-2021 [facility] PRE-OPERATIVE COVID PRE-OPERATIVE COVID ([id number]) Microbiology Routine Screening for malignant neoplasm of colon 1 Occurrences starting 05/02/2020 until 05/02/2021 Comment: 1 Occurrences starting 05/02 until 05/02/2021 no information [facility] ([id number]) Immunizations Vaccine Notes Status Date Location DT(PEDIATRIC) diphtheria and tetanus (completed) 06-24-2000 - [facility] toxoids, adsorbed for 06-24-2000 ([id number] ) pediatric use Influenza Vaccine, influenza virus (completed) 07-01-2013 - [facility] Split-Non Spec vaccine, unspecified 07-01-2013 (4419 5) formulation Influenza Vaccine, influenza virus (completed) 05-23-2012 - [facility] Split-Non Spec vaccine, unspecified 05-23-2012 (4419 5) formulation Influenza Vaccine, influenza virus (completed) [facility], unspecified 07-31-2011 ([id number] 5) formulation Influenza Vaccine, influenza virus (completed) 06-29-2009 [facility], unspecified 06-29-2009 ([id number] 5) formulation Influenza Vaccine, influenza virus (completed) 06-26-2006 - [facility] Whole vaccine, whole virus 06-26-2006 ([id number]) Influenza Vaccine, influenza virus (completed) 08-01-2005 - [facility] Whole vaccine, whole virus 08-01-2005 ([id number]) Influenza Seasonal influenza, high dose (completed) 05-29-2019 - [facility] - High Dose - Age seasonal, 05-29-2019 ([id number]) 65+ preservative-free Influenza Seasonal influenza, high dose (completed) 05-08-2018 - [facility] - High Dose - Age seasonal, 05-08-2018 ([id number]) 65+ preservative-free Influenza Seasonal influenza, high dose (completed) 05-30-2017 - [facility] - High Dose - Age seasonal, 05-30-2017 ([id number]) 65+ preservative-free Influenza Seasonal influenza, high dose (completed) 05-21-2016 - [facility] - High Dose - Age seasonal, 05-21-2016 ([id number]) 65+ preservative-free Pneumococcal-13 Vac pneumococcal conjugate (completed) 12-24-2014 - [facility] Conjugate vaccine, 13 valent 12-24-2014 ([id number]) Pneumovax pneumococcal (completed) 03-04-2017 - [facility] polysaccharide vaccine, 03-04-2017 (441 95) 23 valent Pneumovax pneumococcal (completed) 08-01-2005 - [facility] polysaccharide vaccine, 08-01-2005 (441 95) 23 valent TD Adult tetanus and diphtheria (completed) 03-13-2012 - [facility] toxoids, adsorbed, 03-13-2012 ([id number]) preservative free, for adult use (2 Lf of tetanus toxoid and 2 Lf of diphtheria toxoid) Payers Payer Name Policy Number Location AARP [id number] [facility] ([id number]) MEDICARE A AND B [id number] [facility] ([id number]) [facility] MEDICARE [id number] [facility] (44 195) [id number] [facility] ([id number]) [id number] [facility] ([id number]) [id number] [facility] ([id number]) The following information is from the original human readable contentNo Payer Records FoundNo Payer Records FoundNo Payer Records FoundNo Payer Records FoundNo Payer Records Found Social History Type Social History Date Location Description Tobacco smoking status Former smoker 07-08-2018 - [facility] NHIS 11-05-2019 [facility] ( 36000) History of tobacco use Current smoker 08-12-1975 [facility] ( 50699) History of tobacco use Cigarette Smoker 08-12-1975 [facility] ( 11594) Sex Assigned At Not on file [facility] ( 88111) Tobacco use and Never used 11-05-2019 - [facility] exposure 11-05-2019 (15188) Alcohol intake Current drinker of 11-05-2019 [facility] alcohol (finding) 11-05-2019 (18425) The following information is from the original human readable contentNo Social History Records FoundNo Social History Records FoundNo Social History Records FoundNo Social History Records FoundNo Social History Records FoundNo Social History Records FoundNo Social History Records Found Reason for Referral Status Reason Specialty Diagnoses / Referred By Referred To Procedures Contact Contact New Request Diagnoses Thyroid nodule Eloy Verdugo MD Procedures US THYROID US NECK [address] [facility] [address] Assessments Diagnosis Thyroid nodule Nontoxic uninodular goiter Diagnosis Screening for malignant neoplasm of colo n - Primary Summary Purpose Family History No Family History Records FoundNo Family History Records FoundNo Family History Records FoundNo Family History Records Found Advance Directives No Advanced Directives Records Found Documents on File Type Date Recorded Patient Filer Metal Patterns Explanati on Advance Directive(s) 09/27/2006 12:00 AM Advance Directive(s) 10/26/2008 8:44 PM Advance Directive(s) 09/21/2014 12:57 PM History of Past Illness Problem Noted Date Resolved Date 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 deficiency 10/15/2013 03/04/2017 Vitamin D deficiency 10/15/2013 03/04/2017 Parathyroid adenoma 10/15/2013 12/24/2014 Esophagitis, unspecified 10/19/2008 10/15/2013 Unspecified transient cerebral ischemia 01/15/2018 Overview: WITH HEMIPHORESIS 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 Piña please sign pended order Contact made with patient? NO Pt identified by name and : NO Outreach Outcome/Action MyChart message sent Reason for Outreach Care Gap Payer: Payor: [facility] MEDICARE / Plan: UHC AARP MEDICARE HMO / Product Type: HMO / Care Gap Addressed: Colorectal Cancer Screening Reminder: Please only focus on orders for the HEDIS items above Health Maintenance items due: HEPATITIS C SCREENING due on 12[birth year]11/1958 SHINGRIX VACCINE(1 of 2) due on 12/11/1991 COLONOSCOPY due on 12/27/2018 ADVANCE DIRECTIVE DISCUSSION due on 09/21/2019 BP CONTROLLED (<130/80) due on 03/09/2020 INFLUENZA(1) due on 04/12/2020 Referrals: N/A Message Sent to Practice: YES Navigation Signature: Edita Cordova Ma May 02, 2020 1:19 PM documented in this encounter Additional Source Comments FOR RECORDS PERTAINING TO PATIENTS WHO ARE OR HAVE BEEN ENROLLED IN A CHEMICAL DEPENDENCY/SUBSTANCE ABUSE PROGRAM, SOME INFORMATION MAY BE OMITTED. This clinical summary was aggregated from multiple sources. Caution should be exercised in using it in the provision of clinical care. This summary normalizes information from multiple sources, and as a consequence, information in this document may materially changethe coding, format and clinical context of patient data. In addition, data may be omittedin some cases. CLINICAL DECISIONS SHOULD BE BASED ON THE PRIMARY CLINICAL RECORDS. [facility] provides no warranty or guarantee of the accuracy or completeness of information in this document. UNRECOGNIZED CONTENT PROVIDED BELOW FOR UNRECOGNIZED SECTION Reason for Visit Status Reason Specialty Diagnoses / Referred By Referred To Procedures Contact Contact New Request Diagnoses Thyroid nodule Eloy Verdugo MD Procedures US THYROID US NECK [address] [facility] [place] [address] Reason Onset Date Comments Refill Request 04/19/2020 Reason Onset Date Comments Population Health Navigation Outreach 05/02/2020 [facility] project UNRECOGNIZED CONTENT PROVIDED BELOW FOR UNRECOGNIZED SECTION No Status Records FoundNo Status Records FoundNo Status Records FoundNo Status Records Found UNRECOGNIZED CONTENT PROVIDED BELOW FOR UNRECOGNIZED SECTION INFORMATION SOURCE DATE CREATED AUTHOR AUTHOR'S ORGANIZATIO N 07/21/2018 [facility] DATE CREATED AUTHOR AUTHOR'S ORGANIZATIO N 01/03/2019 [facility]) DATE CREATED AUTHOR AUTHOR'S ORGANIZATIO N 10/06/2019 [facility] DATE CREATED AUTHOR AUTHOR'S ORGANIZATIO N 05/04/2020 [facility] UNRECOGNIZED CONTENT PROVIDED BELOW FOR UNRECOGNIZED SECTION Source Comments In the event this information is protected by the Federal Confidentiality of Alcohol and Drug Abuse Patient Records regulations: The Federal rules restrict any use of the information to criminally investigate or prosecute any alcohol or drug abuse patient.[facility] the event this information is protected by the Federal Confidentiality of Alcohol and Drug Abuse Patient Records regulations: The Federal rules restrict any use of the information to criminally investigate or prosecute any alcohol or drug abuse patient.[facility] UNRECOGNIZED CONTENT PROVIDED BELOW FOR UNRECOGNIZED SECTION Miscellaneous Notes Telephone Encounter - Syeda Lim Ma - 04/19/2020 1:22 PM EDT Patient has been identified by name and date of : Yes Pending Prescriptions Disp Refills TAMSULOSIN 0.4 MG CAPSULE 90 capsule 1 Sig: Take 1 capsule by mouth daily at bedtime. TASNEEM: No RX INSTRUCTIONS: Patient aware RX will be sent to pharmacy. No need to notify patient. Syeda Lim Ma documented in this encounter
== END 2019-12-22 09:42 | disposition home or self-care (01) ==
LOC: EN 07:25 → AC 07:25
PROVIDERS: PCP Family Medicine; Referring Provider Family Medicine; Visit Provider Surgery
PROC: 0DJD8ZZ Inspection of Lower Intestinal Tract, Via Natural or Artificial Opening Endoscopic (ICD-10-PCS; CPT 45378; principal; 2019-12-22 08:25)
DX: Z12.11 Encounter for screening for malignant neoplasm of colon (principal); K57.30 Diverticulosis of large intestine without perforation or abscess without bleeding; K64.1 Second degree hemorrhoids; K64.4 Residual hemorrhoidal skin tags; I27.20 Pulmonary hypertension, unspecified; I12.9 Hypertensive chronic kidney disease with stage 1 through stage 4 chronic kidney disease, or unspecified chronic kidney disease; N18.3 Chronic kidney disease, stage 3 (moderate); E78.00 Pure hypercholesterolemia, unspecified; I25.10 Atherosclerotic heart disease of native coronary artery without angina pectoris; E21.3 Hyperparathyroidism, unspecified; E78.5 Hyperlipidemia, unspecified; K21.9 Gastro-esophageal reflux disease without esophagitis; Z79.82 Long term (current) use of aspirin; Z95.5 Presence of coronary angioplasty implant and graft; I25.2 Old myocardial infarction; Z86.010 Personal history of colon polyps; Z86.73 Personal history of transient ischemic attack (TIA), and cerebral infarction without residual deficits; Z87.891 Personal history of nicotine dependence; Z79.899 Other long term (current) drug therapy
CPT/HCPCS: G0105; J7120

== ENCOUNTER 2020-01-12 11:10 | Emergency (ER) | payer MEDICARE, SELFPAY ==
[2020-01-12 11:12] VITALS: BP 186/93; PULSE 58; RESP 16; TEMP 36.6; O2SAT 97; BMI 28.3
--- NOTE | 2020-01-12 11:19 | RAD_ITS ---
STUDY: X-RAY - LUMBAR SPINE REASON FOR EXAM: Male, 79 years old. Right hip and leg pain x 1 week -- NKI -- LBP TECHNIQUE: 3 view(s) of the lumbar spine were obtained. COMPARISON: None FINDINGS: Normal lumbar lordosis. There is a mild dextroscoliosis of the lumbar spine. There is a normal alignment of the vertebrae. There is multilevel endplate spondylosis of the lumbar vertebrae. There is multi-level degenerative disc disease with multi-level disc space narrowing. There is evidence of prior left inguinal hernia repair with mesh. RAD/Lumbar Spine 2 or 3 Views IMPRESSION: Degenerative changes of the spine, as detailed above. Electronically Signed: Dieudonne Gallo, at 12:05 EDT , Service support ,
--- NOTE | 2020-01-12 11:19 | RAD_ITS ---
STUDY: X-RAY - PELVIS AND RIGHT HIP REASON FOR EXAM: Male, 79 years old. Right hip and leg pain x 1 week -- NKI -- LBP TECHNIQUE: 3 views of the pelvis and hip. COMPARISON: None. FINDINGS: There is a non-specific bowel gas pattern. There is evidence of prior left inguinal hernia repair with mesh. Normal bilateral iliac wings, sacroiliac joints and visualized sacrum. Normal bilateral superior and inferior pubic rami. Normal pubic symphysis. Normal bilateral ischial tuberosities. Normal visualized femoral head. Normal acetabulum. Normal hip joint. Degenerative changes are seen in the lower lumbar spine RAD/HIP, UNI W/ Pelvis 2-3 Views IMPRESSION: No acute abnormality is seen. Electronically Signed: Dieudonne Gallo, at 12:04 EDT , Service support ,
--- NOTE | 2020-01-12 11:23 | ED.VIS.GEN ---
History of Present Illness Chief Complaint: Lower Extremity Injury Informant: Patient Onset: Days Context: Gradual Onset Timing: Intermittent Current Severity: Moderate Maximum Severity: Moderate Narrative: Patient is a 79-year-old male history of coronary vascular disease and hypertension that presents to the emergency department with atraumatic right low back and right hip pain. He states that started about a week ago. He states when he would walk, he will get a shooting pain down his posterior thigh to the knee. He states that it seemed to ease up, but then came back today. He took some Aleve with some improvement. He is still able to ambulate. He denies any trauma. He denies any fevers or chills. He denies any history of immunosuppression. He has had no red flag symptoms. He states he still urinating and moving his bowels without issue. Prior similar symptoms: No Recent Illness/Hospitalization: No Past Medical History - Allergies and Home Meds Allergies/Adverse Reactions: Allergies lisinopril Adverse Reaction (Verified 01/12/20 11:12) Other Primary Care Physician: Juan Manuel Piña III, MD [Primary Care Provider] - Prior records reviewed: Yes Past Medical History: - - Hypertension, hyperlipidemia, coronary vascular disease Surgical History: noncontributory Smoking Status: Former smoker Review of Systems General: Denies: Chills, Fever, Sweats Eyes: Denies: Visual changes - bilaterally, Diplopia ENT: Denies: Rhinorrhea, Sore throat Cardiovascular: Denies: Chest pain, Palpitations Respiratory: Denies: Dyspnea, Cough, Dyspnea on exertion Gastrointestinal: Denies: Abdominal pain, Nausea, Vomiting, Diarrhea, Melena, Hematochezia Genitourinary: Denies: Dysuria, Hematuria, Frequency Musculoskeletal: Denies: Back pain, Extremity Pain Skin: Denies: Rash, Wounds Neurological: Denies: Headache, Weakness, Numbness Physical Exam Vital Signs/Narrative: Vital Signs Temp Pulse Resp BP Pulse Ox 01/12/20 11:12 98 F 58 L 16 186/93 H 97 Inital Vital Signs reviewed: Yes General: Well nourished, Well developed, No Acute Distress Head: Normocephalic, Atraumatic Eyes: Perrl, EOMI ENT: Moist mucous membranes, No rhinorrhea Neck: Supple, Nontender Cardiovascular: Regular rate, Regular rhythm, No murmurs Respiratory: No distress, CTA bilaterally, Chest nontender Abdomen: Soft, Nontender, Nondistended, Normal bowel sounds Back: Normal Inspection. Negative for: Spinal tenderness Extremities: No edema, Tenderness - Right greater trochanteric tenderness. Positive straight leg raise which creates pain, but no paresthesia. Normal pulses. Skin: Normal color, No rash Neurological: Alert, Oriented x3, Cranial nerves II-XII grossly intact, Normal Strength, Normal Sensation Psychological: Normal affect, Normal Mood Diagnostic/Tx/Re-eval Clinical Impression(s) from Imaging Studies Hip/Pelvis X-Ray 01/12/20 11:19 IMPRESSION: No acute abnormality is seen. Electronically Signed: Dieudonne Sabino, at 12:04 EDT , Service support , Lumbar Spine X-Ray 01/12/20 11:19 IMPRESSION: Degenerative changes of the spine, as detailed above. Electronically Signed: Dieudonne Gallo, at 12:05 EDT , Service support , - Medical Decision Making The patient has no red flag symptoms and normal pulses. I did obtain plain films given his advanced age. There is no evidence of compression fracture, hip fracture, or dislocation. At this point, I am going to treat the patient conservatively with a short course of analgesics and steroids. He is able to ambulate without issue. He was counseled on concerning symptoms and reasons to return. He will be discharged home. Impression 1. Lateral right low back pain with radiculopathy ED Disposition - Plan for ED Patient: Disposition: Home or Assisted Living Instructions: ED Sprain Hip Prescriptions: Prednisone [Deltasone] 40 mg PO DAILY #10 tab Prescription Printed Hydrocodone Bitart/Apap 5-325 [[place] 5MG-325MG] 1 tab PO Q6H PRN PRN 3 Days #10 tab PRN Reason: Pain Prescription Printed Referrals: Juan Manuel Piña III, MD [Primary Care Provider] -
[2020-01-12] MEDS: HYDROcodone Bitartrate/Apap 5/325 Tablet PO (11:38)
--- OUTSIDE RECORDS SUMMARY | 2020-05-29 06:24 | XMS RPT_ITS | CCD ---
:1940 External Reference #:[id number] Author Organization [facility] Care Team Providers Name Role Phone [...] of Onset Location guaiFENesin / 07-31-2005 - [place] [facility] Pseudoephedrine (05910) Lisinopril Cough 11-22-2010 - [facility] (11476) Nizatidine 07-31-2005 - [place] [facility] (53051) quinapril 07-31-2005 - [place] [facility] (61276) Medications Current Medications Medication Name Sig Date Prescriber Location Doxazosin doxazosin 4 MG PO TABS take [place] 4 mg by mouth daily. [facility] (52025) Losartan losartan 100 MG PO TABS take [place] 100 mg by mouth daily. [facility] (48221) Omeprazole omeprazole [address] Rebecca fletcher [facility] Indications: Symptomatic [facility] Gastroesophageal Reflux [facility] Disease take 40 mg by mouth (73201) daily. Indications: Gastroesophageal Reflux Disease with Current Symptoms Active prasugrel Prasugrel HCl 10 MG Tab take [place] 10 mg by mouth daily.. [facility] Reported on 10/11/2016 [facility] (15235) Completed/Discontinuned Medications Medication Name Sig Date Prescriber Location amLODIPine amLODIPine (NORVASC) 5 12-23-2019 Celestina Karen [facility] mg tablet Take 1 tablet [facility] by mouth once daily. 90 [facility] tablet 3 12/23/2019 (17075) Active amLODIPine (NORVASC) 10 mg 11-05-[address] [facility]'s tablet Take 0.5 tablets by [facility] (74237) mouth once daily. 30 tablet 12 11/05/2019 Active amLODIPine 5 MG PO TABS Scarlet Salvador [facility]'s take 5 mg by mouth daily. [facility] (68644) Active Comment: Take 0.5 tablets by mouth on daily. Take 1 tablet by mouth once daily. Aspirin aspirin, enteric coated 12-24-2014 Celestina Jones [facility] (ADULT LOW DOSE ASPIRIN) [facility] 81 mg EC tablet Take 1 (4321 0) tablet by mouth once daily. 0 12/24/2014 Active aspirin 325 MG Tab take 81 mg by mouth [facility] daily. Active [place] (90969) Comment: Take 1 tablet by mouth once daily. atorvastatin atorvastatin (LIPITOR) 02-29-2020 Criselda Vasquez [facility] 40 mg tablet Take 1 [facility] tablet by mouth once (50061) daily. For cholesterol. 90 tablet 3 02/29/2020 Active atorvastatin 20 MG PO TABS take 40 Nora Wile [facility] [place] mg by mouth daily. Active Medica l [place] (53248) Comment: Take 1 tablet by mouth once daily. For cholesterol. Cholecalciferol cholecalciferol, vitamin 01-10-2016 Celestina Jones [facility] D3, 4,000 unit cap Take [facility],000 Units by mouth once [facility] daily. 0 01/10/2016 (31758) Active Cholecalciferol (VITAMIN D) 2000 units Cap [facility] Medical take 4,000 Units by mouth daily.. Active [place] (25647) Comment: Take 4,000 Units by mouth on daily. hydroCHLOROthiazide hydroCHLOROthiazide 08-31-2019 Criselda Lodnon [facility] (HYDRODIURIL, ESIDRIX) 25 [facility] mg tablet Take 1 tablet [place] [facility] by mouth once daily. 90 Cent er (87305) tablet 3 08/31/2019 Active Hydrochlorothiazide 12.5 MG PO TABS take 25 [facility] [place] mg by mouth daily. Active Medica l [place] (68413) Comment: Take 1 tablet by mouth once daily. Metoprolol metoprolol tartrate, 09-02-2019 Celestina Jones [facility] short acting, [facility] (LOPRESSOR) 25 mg tablet (43 210) Take 1 tablet by mouth twice daily. 180 tablet 3 09/02/2019 Active metoprolol 25 MG tab regular release [facility] take 50 mg by mouth 2 times daily. [place] (21907) Active Comment: Take 1 tablet by mouth twice daily. Nitroglycerin nitroglycerin sublingual 03-09-2019 Celestina [place] (NITROSTAT) 0.4 mg [facility] Dissolve 1 [facility] (37726) under the tongue every 5 minutes as needed. 25 Bottle of 25 0 03/09/2019 Active NITROGLYCERIN SL by Sublingual route 3 [facility] Medical times daily as needed. Active nt (25644) NITROGLYCERIN SL by Sublingual route 3 [facility] Medical times daily as needed. Active nter (65695) Comment: Dissolve 1 tablet under the tongue every 5 minutes as needed. tamsulosin tamsulosin ER 11-05-2019 - Criselda Bruce [place] [facility] (FLOMAX) 0.4 mg Take 04-19-2020 (61163) 1 capsule by mouth daily at bedtime. 90 capsule 1 04/19/2020 Active Comment: Take 1 capsule by mouth hui y at bedtime. Problems Active Problems Category Problem Name Status Date Location Acute myocardial Myocardial infarction Active 03-06-2018 [facility] infarction - (95073) Chronic kidney disease Chronic kidney disease Active 03-04-20 17 stage 3 - (59809) Coronary Coronary arteriosclerosis Active 03-06-2018 [facility] atherosclerosis and - (85436) other heart disease Disorders of lipid Hyperlipidemia Active 09-03-2013 [facility] metabolism - (06517) Esophageal disorders Gastroesophageal reflux Active disease (06617) Essential hypertension Benign essential Active 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 - (44 195) obstruction Other and unspecified History of polyp of colon Active benign neoplasm (02765) Other endocrine Hypoparathyroidism Active 07-08-2018 [facility] (37329) Other endocrine Hyperparathyroidism Active 03-04-2017 [facility] disorders - (81444) Other hereditary and Essential tremor Active 07-03-2010 [facility] degenerative nervous - (60588) system conditions Other lower respiratory Lung mass Active [facility] (28372) Thyroid disorders Thyroid nodule Active 04-30-2013 [facility] (08482) Unclassified Nontoxic single thyroid Active 04-30-2013 [facility] nodule / E04.1(ICD-10) - [facility] (14487) Unclassified Patient encounter status Active [facility] (95788) Past or Other Problems Category Problem Name Status Date Location Deficiency and other Anemia Completed 10-15-2013 - [facility] anemia (38364) Other and unspecified Parathyroid adenoma Completed 03-04-2017 - benign neoplasm (48745) Other screening for Raised prostate Completed 03-11-2019 - [facility] suspected conditions specific antigen (44 195) (not mental disorders or infectious disease) Results Result Name Value Range Unit Interpretation Flag Date Location progress on 2020-04 PROGRESS HNO ID: [id number] Normal 05-02-2020 Author: Edita Cordova Ma [place] ([id number]) Service: ? Author Type: ? Type: Progress Notes Filed: 05/04/2020 7:40 AM Note Text: POPULATION HEALTH NAVIGATION OUTREACH Action/ [facility] project: blood pressure results to payer Patients open care gaps: Colonoscopy Mychart message sent today Dr. Piña please sign pended order Contact made with patient? NO Pt identified by name and : NO Outreach Outcome/Action MyChart message sent Reason for Outreach Care Gap Payer: Payor: [employer] / Plan: [employer] HMO / Pro duct Type: HMO [...] CNPTOUTREACH Patient Outreach (NETNAV) Normal 0 05-02-2020 [place] [facility] SHARAN DURAN JR ([id number]) 1940 [facility] Date Time Provider Department (54282) 05/02/20 EDITA CORDOVA (CLIF) NETNAV During your visit today, we recorded the following informati on about you: Edita Cordova Ma 05/04/2020 7:40 AM Signed POPULATION HEALTH NAVIGATION OUTREACH Action/ [facility] project: blood pressure results to payer Patients open care gaps: Colonoscopy Mychart message sent today Dr. Piña please sign pended order Contact made with patient? NO Pt identified by name and : NO Outreach Outcome/Action MyChart message sent Reason for Outreach Care Gap Payer: Payor: [employer] / Plan: [employer] HMO / Product Type: HMO / [...] Cough Date Reviewed: 12/01/2019 Reviewed by: Ramesh Barertt Ma - Fully Assessed Reason for Visit: Population Health Navigation Outreach [3910] Cmt: [facility] projec t Primary Visit Diagnosis:Screening for malignant neoplasm of colon [Z12.11] Order(s):COLONOSCOPY SCRN NOT HIGH RISK [R8988GP D] Order #: [id number] FUTURE PRE-PROCEDURE AND PRE-OPERATIVE COVID [SQPOCOVD] Order #: [id number] FUTURE Prescriptions as of 05/02/2020 Sig: TAMSULOSIN [...] on 2020-04 OBSOLETE Refill (FAMPWS) Normal 04-19-2020 [facility] SHARAN Montana JR ([id number]) 1940 [facility] Time Provider Department (44028) 04/19/20 CELESTINA PIÑA IIIPWS During your visit [...] at bedtime. Encounter Status:Closed by CRISELDA BRUCE CONDUCTOR YARD on 04/19/20 vitamin d 25 hydroxy on 2020-02-29 Vitamin D 25 Hydroxy 53.6 31.0-80.0 ng/mL Normal 0 [facility] (96052) Comment: Result Comment: Classificati on of 25 [place] Vitamin D status: Insufficiency/Moderate Defic iency: < or = 30 ng/mL Sufficiency/Optimal Levels: 31 to 80 ng/mL Toxicity: > 100 ng/mL Test performed by chemilumin escent immunoassay. Performed By: #### ALB, BMP, VITD #### [address] [place] [address] [phone] obsolete on 2020-02 OBSOLETE Refill (FAMPWS) Normal 02-29-2020 [facility] SHARAN Montana JR ([id number]) 1940 [facility] Date Time Provider Department (05384) 02/29/20 CELESTINA PIÑA III FAMPWS During your [...] on file. Encounter Status:Closed by CRISELDA BRUCE CONDUCTOR YARD on 02/29/20 basic metabolic panl on 2020-02-29 Anion gap [Moles/Vol] 9 9-18 mmol/L Normal 02-29-20 20 [facility] (08852) Comment: Performed By: #### ALB, BMP, VITD #### [address] [place] [address] [phone] Calcium [Mass/Vol] 10.3 8.5-10.2 mg/dL High 02-29-2020 [facility] (83331) Comment: Performed By: #### ALB, BMP, VITD #### [address] [place] [address] [phone] Chloride [Moles/Vol] 106 97-105 mmol/L High 0 [facility] (63636) Comment: Performed By: #### ALB, BMP, VITD #### [address] [place] [address] [phone] CO2 [Moles/Vol] 25 22-30 mmol/L Normal 02-29-2020 [facility] (50855) Comment: Performed By: #### ALB, BMP, VITD #### [address] [place] [address] [phone] Creatinine [Mass/Vol] 2.21 0.73-1.22 mg/dL High 02-29-20 [facility] (79013) Comment: Performed By: #### ALB, BMP, VITD #### [address] [place] [address] [phone] eGFR- Amer. 35 Normal 02-29-2020 [facility] (08160) Comment: Performed By: #### ALB, BMP, VITD #### [address] [place] [address] [phone] GFR/1.73 sq M predicted among 29 . Normal 02-29-2020 [facility] non-blacks MDRD (S/P/Bld) [Vol (36541) rate/Area] Comment: Result Comment: eGFR (Estima melquiades [...] GFR. Performed By: #### ALB, BMP, VITD #### [address] [place] [address] [phone] Glucose [Mass/Vol] 93 74-99 mg/dL Normal 02-29-2020 [facility] (88257) Comment: Result Comment: The [place] [employer] Association (ADA) provides guidance for cutoff [...] for diagnosis of diabetes. Reference: Standards of [facility] Care in Diabetes 2016, [place] [employer]. Diabetes Care. 2016.39(Suppl 1). Performed By: #### ALB, BMP, VITD ####[place] [id number] [place] [address] [phone] Potassium [Moles/Vol] 4.3 3.7-5.1 mmol/L Normal 02-29-20 [facility] (12388) Comment: Performed By: #### ALB, BMP, VITD ####[address] [place] [address] [phone] Sodium [Moles/Vol] 140 136-144 mmol/L Normal 02-29-2020 [facility] (23120) Comment: Performed By: #### ALB, BMP, VITD ####[place] [address] [place] [address] [phone] Urea nitrogen [Mass/Vol] 42 9-24 mg/dL High 02-28 [facility] (97206) Comment: Performed By: #### ALB, BMP, VITD ####[place] [address] [place] [address] [phone] albumin on Albumin [Mass/Vol] 3.8 3.9-4.9 g/dL Low 02-29-2020 [facility] (84680) Comment: Performed By: #### ALB, BMP, VITD ####[place] [address] [place] [address] [phone] cnpn on 2020-01-12 CNPN Telephone (FAMWS) Normal 01-12-2020 [place] Sean DURANSHARAN JR ([id number]) 1940 [facility] Date Time Provider Department (56779) 01/12/20 CELESTINA PIÑA III During your visit today, we recorded the following informati on about you: Ayesha Simms RN 01/12/2020 2:14 PM Signed Pt's called, verified pt by name and birthdate. P t's wanted to let PCP know pt went to [facility] ER and is being discharged soon Ayesha [...] on 2019-12 OBSOLETE Refill (FAMPWS) Normal 12-23-2019 [facility] SHARAN Montana JR ([id number]) 1940 [facility] Date Time Provider Department (34081) 12/23/19 CELESTINA PIÑA III During your visit [...] 141/69 Please advise. Thank you. Maeve Wakefieldpuramarino HEMODIALYSIS LAB TECHNICIAN Patient asking for 5 mg tablet since has problems splitting pills Allergies As of Date: 12/23/2019 Noted Allergy Reaction ACCUPRIL (QUINAPRIL HCL) 07/31/2005 AXID (NIZATIDINE) 07/31/2005 ENTEX PSE (PSEUDOEPHEDRINE-GUAIFE*07/31/2005 LISINOPRIL 11/22/2010 3 - Cough Date Reviewed: 12/01/2019 Reviewed by: Ramesh Barrett Ma - Fully Assessed Reason for Visit: Refill Request [94] Order(s):amLODIPine (NORVASC) 5 mg tabletTake 1 tablet by [facility] once daily.Disp: 90 tabletRfl: 3 Prescriptions [...] III, MD on 12/23/19 shaniquan [facility]) Normal 12-11-2019 [place] SHARAN Montana JR ([id number]) 1940 [facility] Date Time Provider Department (15336) 12/11/19 CELESTINA PIÑA III During your visit [...] on 2019-12-07 CNPN Telephone (UROLWS) Normal 12-07-2019 [place] SHARAN Montana JR ([id number]) 1940 [facility] Date Time Provider Department (83320) 12/07/19 ELAINA MAYEN) UROLWS During your visit today, we recorded the following informati on about you: Ziggy Padilla Ma 12/07/2019 11:32 AM Signed Elaina Maciel (Pa) [facility] Urology Pool ? Please, notify patient the urine culture was negative Thank you, Elaina Mayen, [facility], PA-C Ziggy Padilla Ma 12/08/2019 8:03 AM Signed [place] message sent. Ziggy Padilla Ma Allergies As [...] - Presu rgical Sterilization Specimen received in [facility] cancer cente[facility] 12-04-2019 [place] identified Cx Nom Culture Result - Normal Urog enital fatoumata: 1,000 - <5,000 CFU/ml --> ABNORMAL ALERT Staphylococcus epidermidis --> ABNORMAL ALERT <1,000 CFU/ml --> ABNORMAL ALERT Streptococcus mitis-oralis group --> ABNORMAL ALERT abnormal Clinic () [place] (48892) Comment: Performed By: #### URCUL ### #[place] [address] [address] [place] [phone] vitamin d 25 hydroxy on 2019-12-02 Vitamin D 25 Hydroxy 50.8 31.0-80.0 ng/mL Normal 0 [facility] (16968) Comment: Result Comment: Classificati on of 25 [place] Vitamin D status: Insufficiency/Moderate Defic iency: < or = 30 ng/mL Sufficiency/Optimal Levels: 31 to 80 ng/mL Toxicity: > 100 ng/mL Test performed by chemilumin escent immunoassay. Performed By: #### ALB, BMP, PHOS, PTHI, VITD ####[place] [address] [address] [place] [phone] pth, intact on 2019 PTH, Intact 163 15-65 pg/mL High 12-02-2019 [facility] (29080) Comment: Performed By: #### ALB, BMP, PHOS, PTHI, VITD ####[place] [address] [address] [place], [place] [phone] phosphorus on 12-01 Phosphate [Mass/Vol] 2.6 2.7-4.8 mg/dL Low 0 [facility] (91662) Comment: Performed By: #### ALB, BMP, PHOS, PTHI, VITD ####[place] [address] [address] [phone] basic metabolic panl on 2019-12-02 Anion gap [Moles/Vol] 13 9-18 mmol/L Normal 12-02-19 20 [facility] (91885) Comment: Performed By: #### ALB, BMP, PHOS, PTHI, VITD ####[place] [address] [address] [place], [place] [phone] Calcium [Mass/Vol] 10.7 8.5-10.2 mg/dL High 12-02-2019 [facility] (43905) Comment: Performed By: #### ALB, BMP, PHOS, PTHI, VITD #### [address] [place], [place] [phone] Chloride [Moles/Vol] 104 97-105 mmol/L Normal 0 [facility] (80430) Comment: Performed By: #### ALB, BMP, PHOS, PTHI, VITD #### [address] [place], [place] [phone] CO2 [Moles/Vol] 25 22-30 mmol/L Normal 12-02-2019 [facility] (96944) Comment: Performed By: #### ALB, BMP, PHOS, PTHI, VITD ####[facility] [address] [place], [place] [phone] Creatinine [Mass/Vol] 2.04 0.73-1.22 mg/dL High 12-02-19 20 [facility] (52661) Comment: Performed By: #### ALB, BMP, PHOS, PTHI, VITD #### [address] [place], [place] [phone] eGFR- Amer. 39 Normal 12-02-2019 [facility] (78552) Comment: Performed By: #### ALB, BMP, PHOS, PTHI, VITD #### [address] [place], [place] [phone] GFR/1.73 sq M predicted among 32 . Normal 12-02-2019 [facility] non-blacks MDRD (S/P/Bld) [Vol (67254) rate/Area] Comment: Result Comment: eGFR (Estima melquiades [...] By: #### ALB, BMP, PHOS, PTHI, VITD #### [address] [place], [place] [phone] Glucose [Mass/Vol] 93 74-99 mg/dL Normal 12-02-2019 [facility] (87110) Comment: Result Comment: The [place] Diabetes [employer] (ADA) provides guidance for cutoff [...] for diagnosis of diabetes. Reference: Standards of [facility] Care in Diabetes 2016, [place] [employer]. Diabetes Care. 2016.39(Suppl 1). Performed By: #### ALB, BMP, PHOS, PTHI, VITD #### [address] [place], [place] [phone] Potassium [Moles/Vol] 4.2 3.7-5.1 mmol/L Normal 12-02-19 [facility] (92562) Comment: Performed By: #### ALB, BMP, PHOS, PTHI, VITD #### [address] [place], [place] [phone] Sodium [Moles/Vol] 142 136-144 mmol/L Normal 12-02-2019 [facility] (32386) Comment: Performed By: #### ALB, BMP, PHOS, PTHI, VITD #### [address] [place], [place] [phone] Urea nitrogen [Mass/Vol] 36 9-24 mg/dL High 12-01 [facility] (81615) Comment: Performed By: #### ALB, BMP, PHOS, PTHI, VITD #### [address] [place], [place] [phone] albumin on Albumin [Mass/Vol] 4.0 3.9-4.9 g/dL Normal 12-02-2019 [facility] (19992) Comment: Performed By: #### ALB, BMP, PHOS, PTHI, VITD #### [address] [place], [place] [phone] history physical on 2019-12-01 HISTORY HNO ID: [id number] Normal 12-01-2019 PHYSICAL Author: Abran Jack [place] Service: ? (62373) Author Type: Physician Type: HANDP Filed: 12/01/2019 [...] Benign essential tremor 07/03/2010 - CAD in [place] artery - CKD (chronic kidney disease) stage [...] Father - Arthritis Mother - Heart Father [place] * 2 - Prostate Cancer Brother - [...] on 2019-11-09 CNPN Telephone (URON) Normal 11-09-2019 [place] [id number] 1940 [facility] Date Time Provider Department (03564) 11/09/19 ELAINA MAYEN) JOAN During your visit [...] Cough Date Reviewed: 11/05/2019 Reviewed by: Edita ([facility]) CLIF [place] - Fully Assessed Reason for Visit: Results, Lab [1201] Primary Visit Diagnosis:Dysuria [R30.0] Order(s):sulfamethoxazole-trimethoprim (BACTRIM DS) 800-160 mg per tabletTake 1 tablet by mouth twice daily for 10 days.Disp: 20 tabletRfl : 0 URINE CULTURE [SQURCUL] Order #: [id number] FUTURE Prescriptions as of 11/09/2019 Sig: SULFAMETHOXAZOLE [...] Pre-dose serum. OPERATIVE STERI LIZATION Critically 11-06-2019 [facility] Cx Culture Result - 1,000 - <5, 000 CFU/ml Proteus mirabilis --> ABNORMAL ALERT Normal Urogenital fatoumata: --> ABNORMAL ALERT <1,000 CFU/ml --> ABNORMAL ALERT Streptococcus mitis-oralis group --> ABNORMAL ALERT abnormal Clinic Nom (U) ORGANISM: Proteus mirabilis [place] METHOD: Minimum inhibitory concentration(Vitek) (41715) Antibiotic Interp JENIFFER Status Ampicillin SUSCEPTIBLE <=2 F Gentamicin SUSCEPTIBLE <=1 F Trimeth sulfameth SUSCEPTIBLE <=20 F Cefazolin RESISTANT >=64 F Ciprofloxacin SUSCEPTIBLE <=0.25 F Nitrofurantoin RESISTANT 128 F Cefepime SUSCEPTIBLE <=1 F Piperacillin/Tazobac SUSCEPTIBLE <=4 F Ampicillin Sulbact SUSCEPTIBLE <=2 F Ceftriaxone SUSCEPTIBLE <=1 F Meropenem SUSCEPTIBLE <=0.25 F Ertapenem SUSCEPTIBLE <=0.5 F Comment: Performed By: #### URCUL ### # [address] [place], [place] [phone] progress on 2019-10 PROGRESS HNO ID: [id number] Normal 11-06-2019 Author: Elaina Alves) Melina Bill (32134) Service: ? Author Type: Physician Field Representative/Health Education Type: Progress Notes Filed: 11/12/2019 12:34 PM [...] mailed to patient as a remind er clinic scheduler portion filed so follow-up can be set-up once COVI D19 precautions have ended. I spent approximately 40 minutes in this Telemedicine visit, with more than 50% of the time devoted to patient discussion, counseli ng, review of records and/or coordination of care. Elaina Mayen, JAMSHIDS, [place], PA-C cnov on 2019-11-06 CNOV Office Visit (UROLWS) Normal 11-06-[address] [place] [address] Clinic SHARAN DURAN JR ([id number]) 1940 [facility] Date Time Provider Department (62189) 11/06/19 10:30 AM ELAINA MAYEN (JONNA) UROLWS [...] mailed to patient as a remind er clinic scheduler portion filed so follow-up can be set-up once [place] VID19 precautions have ended. I spent approximately 40 min utes in this Telemedicine visit, with more than 50% of the time devoted to patie nt discussion, counseling, review of records and/or coordination of care. 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, N13.8] Order(s):URINE CULTURE [SQURCUL] Order #: [id number] FUTURE CONSULT TO UROLOGY [9041] Order #: [id number]: 1 Prescriptions as of 11/06/2019 Sig: AMLODIPINE [...] 2019-11-05 Bilirubin, Urine Negative Negative Normal 11-05-2019 [facility] (75740) Comment: Performed By: #### UAWMIC ## ## [address] [place], [place] [phone] Clarity (U) Clear Clear Normal 11-05-2019 [facility] (30324) Comment: Performed By: #### UAWMIC ## ## [address] Ave[address]levelCold[place], [place] [phone] Color (U) Light Yellow Yellow Critically abnormal 020 [facility] (57621) Comment: Performed By: #### UAWMIC ## ##[facility]95[address]CLew[place], [place] [phone]- [phone] Comments SEE COMMENT Normal 11-05-2019 [facility] (50080) Comment: Result Comment: N/A Performed By: #### UAWMIC ## ##[place] [address]CLew[place], [place] [phone]- [phone] Glucose Ql (U) Negative Negative Normal 11-05-2019 [facility] (05031) Comment: Performed By: #### UAWMIC ## ##[place] [address], [place] [phone]- [phone] Hemoglobin/Blood,Ur Negative Negative Normal 11-05-2019 [facility] (60029) Comment: Performed By: #### UAWMIC ## ##[place] [address], [place] [phone]- [phone] Ketones Ql (U) Negative Negative Normal 11-05-2019 [facility] (22255) Comment: Performed By: #### UAWMIC ## ##[place] [address], [place] [phone]- [phone] Leukest Trace Negative Critically abnormal 11-05-2019 [facility] (50535) Comment: Performed By: #### UAWMIC ## ##[place] [address], [place] [phone]- [phone] Nitrite Ql (U) Negative Negative Normal 11-05-2019 [facility] (97890) Comment: Performed By: #### UAWMIC ## ##[facility], [place] [phone]- [phone] pH (Bld) 7.0 5.0-8.0 Normal 11-05-2019 [facility] (24268) Comment: Performed By: #### UAWMIC ## ##[place] [address]CLew[place], [place] [phone]- [phone] Protein (U) 2+ Negative mg/dL Critically abnormal 11-05-19 20 [Mass/Vol] [place] ([address]100) Comment: Performed By: #### UAWMIC ## ##[facility], [place] [phone]- [phone] RBC (U) [#/Vol] 0-3 0-3 Normal 11-05-2019 [facility] (37603) Comment: Performed By: #### UAWMIC ## ##[place] [address], [place] [phone]- [phone] Specific [place], Ur 1.016 1.005-1.030 Normal 020 [facility] (34949) Comment: Performed By: #### UAWMIC ## ##[place] [address], [place] [phone]- [phone] Urine Jeniffer Comment SEE COMMENT Normal 11-05-2019 [facility] (53652) Comment: Result Comment: N/A Performed By: #### UAWMIC ## ##[facility], [place] [phone]- [phone] Urobilinogen Qn (U) Negative Negative Normal 11-05-2019 [facility] (89705) Comment: Performed By: #### UAWMIC ## ## [address]CLew[place], [place] [phone]- [phone] WBC (Bld) [#/Vol] 6-10 0-5 Critically abnormal [facility] (39778) Comment: Performed By: #### UAWMIC ## ## [address]CLew[place], [place] [phone]- [phone] progress on 2019-10 PROGRESS HNO ID: [id number] Normal 11-05-2019 Author: Celestina Piña III [place] ([id number]) Service: ? Author Type: Physician Type: Progress [...] Benign essential tremor 07/03/2010 - CAD in nulato artery - CKD (chronic kidney disease) stage [...] - 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 deficiency ([facility]) 2013 - Hyperparathyroidism, primary ([facility]) 05/27/13 - Mild renal insufficiency 10/15/2013 - NSTEMI (non-ST elevated myocardial infarction) ([facility]) 201709/06/14-- stent - Overweight (BMI 25.0-29.9) - [...] Father - Arthritis Mother - Heart Father [place] * 2 - Prostate Cancer Brother - [...] Albumin [Mass/Vol] 3.8 3.9-4.9 g/dL Low 11-05-2019 [facility] (96937) Comment: Performed By: #### CMP, CBC ####[place] [address], [place] [phone]- [phone] ALP [Catalytic activity/Vol] 89 38-113 U/L Normal 0 11-05-2019 [facility] (61262) Comment: Performed By: #### CMP, CBC #### [address]CLew[place], [place] [phone]- [phone] ALT [Catalytic activity/Vol] 17 10-54 U/L Normal 0 11-05-2019 [facility] (29934) Comment: Performed By: #### CMP, CBC #### [address]CLew[place], [place] [id number]- [phone] Anion gap [Moles/Vol] 14 9-18 mmol/L Normal 11-05-19 [facility] (72805) Comment: Performed By: #### CMP, CBC ####[facility]CL[address], [place] [phone]- [phone] AST [Catalytic activity/Vol] 22 14-40 U/L Normal 0 11-05-2019 [facility] (95593) Comment: Performed By: #### CMP, CBC #### [address]CLew[place], [place] 61179413- [phone] Bilirubin [Mass/Vol] 0.4 0.2-1.3 mg/dL Normal 0 [facility] (87850) Comment: Performed By: #### CMP, CBC ####[place] [address], [place] [phone]- [phone] Calcium [Mass/Vol] 10.5 8.5-10.2 mg/dL High 11-05-2019 [facility] (95392) Comment: Performed By: #### CMP, CBC ####[place] [address], [place] [phone]- [phone] Chloride [Moles/Vol] 103 97-105 mmol/L Normal 0 [facility] (02524) Comment: Performed By: #### CMP, CBC ####[place] [address], [place] [phone]- [phone] CO2 [Moles/Vol] 24 22-30 mmol/L Normal 11-05-2019 [facility] (53361) Comment: Performed By: #### CMP, CBC ####[place] [address], [place] [phone]- [phone] Creatinine [Mass/Vol] 2.13 0.73-1.22 mg/dL High 11-05-19 20 [facility] (25842) Comment: Performed By: #### CMP, CBC ####[place] [address], [place] [phone]- [phone] eGFR- Amer. 37 Normal 11-05-2019 [facility] (49471) Comment: Performed By: #### CMP, CBC ####[place] [address], [place] [phone]- [phone] GFR/1.73 sq M predicted among 30 . Normal 11-05-2019 [facility] non-blacks MDRD (S/P/Bld) [Vol (59410) rate/Area] Comment: Result Comment: eGFR (Estima melquiades [...] actual GFR. Performed By: #### CMP, CBC ####[facility], [place] [phone]- [phone] Glucose [Mass/Vol] 101 74-99 mg/dL High 11-05-2019 [facility] (39017) Comment: Result Comment: The [place] [employer] (ADA) provides guidance for cutoff [...] for diagnosis of diabetes. Reference: Standards of [facility] Care in Diabetes 2016, [place] [employer]. Diabetes Care. 2016.39(Suppl 1). Performed By: #### CMP, CBC ####[facility], [place] [phone]- [phone] Potassium [Moles/Vol] 4.4 3.7-5.1 mmol/L Normal 11-05-19 20 [facility] (61323) Comment: Performed By: #### CMP, CBC ####[address] [phone] Protein [Mass/Vol] 6.7 6.3-8.0 g/dL Normal 11-05-2019 [facility] (51914) Comment: Performed By: #### CMP, CBC ####[place] [address] [place], [place] [phone]- [phone] Sodium [Moles/Vol] 141 136-144 mmol/L Normal 11-05-2019 [facility] (18680) Comment: Performed By: #### CMP, CBC ####[place] [address] [place], [place] [phone]- [phone] Urea nitrogen [Mass/Vol] 40 9-24 mg/dL High 11-04 [facility] (58221) Comment: Performed By: #### CMP, CBC ####[facility] [place], [place] [phone]- [phone] cnov on 2019-11-05 CNOV Office Visit (LAB) Normal 11-05-2019 [place] [facility] SHARAN DURAN JR ([id number]) 1940 [facility] Date Time Provider Department (48248) 11/05/19 3:20 PM [facility] During [facility] visit today, we recorded [...] III MD Referring Provider: CELESTINA PIÑA III [[id number]] Allergies As of Date: 11/05/2019 Noted Allergy Reaction ACCUPRIL (QUINAPRIL HCL) 07/31/2005 AXID (NIZATIDINE) 07/31/2005 ENTEX PSE (PSEUDOEPHEDRINE-GUAIFE*07/31/2005 LISINOPRIL 11/22/2010 3 - Cough Date Reviewed: 11/05/2019 [facility] CLIF [place] - Fully Assessed Visit Diagnoses:Essential hypertension, benign [I10] CKD (chronic kidney disease) stage 3, GFR 30-59 ml/min (HCC) [N18.3] Order(s):COMP METABOLIC PANEL [SQCMP] Order #: [id number]. #:[id number] CBC [SQCBC] Order #: [id number]. 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 - CKD (chronic kidney disease) stage [...] - 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 deficiency ([facility]) 2013 - Hyperparathyroidism, primary ([facility]) 05/27/13 - Mild renal insufficiency 10/15/2013 - NSTEMI (non-ST elevated myocardial infarction) ([facility]) 201709/06/14-- stent - Overweight (BMI 25.0-29.9) - [...] Father - Arthritis Mother - Heart Father [place] * 2 - Prostate Cancer Brother - [...] III MD Referring Provider: CELESTINA PIÑA III [[id number]] Allergies As of Date: 11/05/2019 Noted Allergy Reaction ACCUPRIL (QUINAPRIL HCL) 07/31/2005 AXID (NIZATIDINE) 07/31/2005 ENTEX PSE (PSEUDOEPHEDRINE-GUAIFE*07/31/2005 LISINOPRIL 11/22/2010 3 - Cough Date Reviewed: 11/05/2019 Reviewed by: Edita ([facility]) CLIF [place] - Fully Assessed [...] 12 COMP METABOLIC PANEL [SQCMP] Order #: [id number] FUTURE CBC [SQCBC] Order #: [id number] FUTURE URINALYSIS WITH MICROSCOPIC [SQUAWMIC] Order #: [id number] ec. #:[id number] tamsulosin ER (FLOMAX) 0.4 mgTake 1 capsule by mouth daily a t bedtime.Disp: 30 capsuleRfl: 11 CONSULT TO UROLOGY [9041] Order #: [id number]: 1 FUTURE Prescriptions as of 11/05/2019 Sig: [...] 2019-11-05 Absolute nRBC <0.01 <0.01 Normal 11-05-2019 [facility] (95896) Comment: Performed By: #### CMP, CBC ####[address], [place] [phone]- [phone] Erythrocyte distribution 13.2 11.5-15.0 % Normal 11-04 width (RBC) [Ratio] [place] (51508) Comment: Performed By: #### CMP, CBC ####[address] Av[address], [place] [phone]- [phone] Hematocrit (Bld) [Volume 37.7 39.0-51.0 % Low 11-04 [facility] fraction] (58679) Comment: Performed By: #### CMP, CBC ####[address], [place] [id number] [phone] Hemoglobin (Bld) 11.4 13.0-17.0 g/dL Low 11-05-2019 [facility] [Mass/Vol] [place] (36038) Comment: Performed By: #### CMP, CBC ####[address]ew[address], [place] [phone]- [phone] MCH (RBC) [Entitic mass] 28.6 26.0-34.0 pG Normal 11-04 [facility] (20611) Comment: Performed By: #### CMP, CBC ####[address]ew[address], [place] [id number] [phone] MCHC (RBC) [Mass/Vol] 30.2 30.5-36.0 g/dL Low 11-05-19 20 [facility] (15526) Comment: Performed By: #### CMP, CBC ####[place] [address], [place] [id number]- [phone] MCV (RBC) [Entitic vol] 94.7 80.0-100.0 fL Normal 11-04 [facility] (37189) Comment: Performed By: #### CMP, CBC ####[facility] [place], [place] [address]d AvCol[place], [place] [phone]- [phone] Platelet mean volume 12.3 9.0-12.7 fL Normal 0 (Bld) [Entitic vol] [place] (18738) Comment: Performed By: #### CMP, CBC ####[address], [place] 85004095- [phone] Platelets (Bld) [#/Vol] 162 150-400 k/uL Normal 2019 [facility] (20373) Comment: Performed By: #### CMP, CBC ####[address] [place], [place] [phone]- [phone] RBC (Bld) [#/Vol] 3.98 4.20-6.00 m/uL Low 11-05-2019 [facility] (95552) Comment: Performed By: #### CMP, CBC ####[address] [place], [place] [phone]- [phone] WBC (Bld) [#/Vol] 7.52 3.70-11.00 k/uL Normal 11-05-2019 [facility] (47546) Comment: Performed By: #### CMP, CBC ####[facility], [place] [phone]- [phone] obsolete on 2019-10 OBSOLETE Refill (FAMPWS) Normal 10-20-2019 [facility] SHARAN DURAN JR ([id number]) 1940 [facility] Time Provider Department (24997) 10/20/19 CELESTINA PIÑA III During your visit [...] DATE OF EXAM: Oct 06 2019 1:00PM [facility] (20509) MMN 0041 - NM THY UPTAKE ONLY [...] in the left lower neck, as noted. Care Director Rn: PSCB Transcribe Date/Time: Oct 06 2019 2:44P Dictated by : CRISTOBAL LEE MD This examination was interpreted and the report reviewed and electronically signed by: CRISTOBAL LEE MD on Oct 06 2019 2:56PM EST [id number] nm parathyroid w spect/ct on 2019-10-06 NM PARATHYROID W * * *Final Report* * * Normal 10-06-2019 [facility] SPECT/CT DATE OF EXAM: Oct 06 2019 12:59PM [facility] (52513) N 0089 - NM PARATHYROID W SPECT/CT [...] in the left lower neck, as noted. Care Director Rn: PSCB Transcribe Date/Time: Oct 06 2019 2:44P Dictated by : CRISTOBAL LEE MD This examination was interpreted and the report reviewed and electronically signed by: CRISTOBAL LEE MD on Oct 06 2019 2:56PM EST [id number] pth, intact on 2019 PTH, Intact 154 15-65 pg/mL High 09-24-2019 [facility] (78992) Comment: Performed By: #### CMP, LIPN F, PTHI #### [address] [place] [address] [phone] progress on 2019-09 PROGRESS HNO ID: [id number] Normal 09-24-2019 Author: Celestina Piña III [place] ([id number]) Service: ? Author Type: Physician Type: Progress Notes Filed: 09/24/2019 8:29 AM Note Text: SUBJECTIVE: This is a 78 year old male that is here today fo r Chronic Medical Conditions. 1. hypertension 2. CKD III 3. 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 reg. walking, resistance training--3-5 d/wk 5. tearing eyes--coo giving him drops w/o benefit. 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 artery - CKD (chronic kidney disease) stage 3, GFR 30-59 ml/min (HC C) 03/04/2017 - Diaphragmatic hernia without mention of obstruction or [facility] Hiatal hernia - Dyslipidemia - Elevated PSA 03/11/2019 - Esophageal reflux Gastroesophageal reflux - Esophagitis, unspecified - Essential hypertension, benign - Family history of malignant neoplasm of gastrointestinal t ract - Hyperlipidemia LDL goal < 100 09/03/2013 - Hyperparathyroidism ([facility]) 03/04/2017 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: 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 - 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 deficiency ([facility]) 2013 - Hyperparathyroidism, primary ([facility]) 05/27/13 - Mild renal insufficiency 10/15/2013 - NSTEMI (non-ST elevated myocardial infarction) ([facility]) 201709/06/14-- stent - Overweight (BMI 25.0-29.9) - [...] Father - Arthritis Mother - Heart Father [place] * 2 - Prostate Cancer Brother - [...] and as needed consider second opinion from private pilot Celestina Piña III lipid panel, nonfast on 2019-09-24 Cholesterol [Mass/Vol] 140 <200 mg/dL Normal 020 [facility] (95218) Comment: Result Comment: <200 mg/dL, Desirable 200-239 mg/dL, Borderline hi gh >239 mg/dL, High Performed By: #### CMP, LIPN F, PTHI ####[facility] [place] [address] [phone] Cholesterol in 0.96 <2.54 mg/dL Normal 09-24-2019 [facility] LDL/Cholesterol in HDL [[facility] (79114) ratio] Comment: Result Comment: Reference: 1. National Cholesterol Educ ation Program ATP III Guideline At-A-Glance Quick Desk Reference: National Heart, Lung, and Blood [place]. National Institutes of Health. 2001: NIH Publication No. 01-3305. 2. An International Atherosc lerosis Society position paper: global recommendations for the management of dyslipidemia: executive summary, Atherosclerosis. 2014: 232(2):410-413. Performed By: #### CMP, LIPN F, PTHI ####[facility] [place] [address] [phone] Cholesterol.total/Cholesterol in 2.06 <5.10 mg/dL Normal 09-24-2019 [place] HDL [Mass ratio] [facility] (26032) Comment: Performed By: #### THEA LIPN F, PTHI ####[place] [address] [phone] HDL Cholesterol, NF 68 >39 mg/dL Normal 09-24-2019 [facility] (77238) Comment: Result Comment: 40-59 mg/dL, Acceptable >59 mg/dL, High: Negative ri sk factor for coronary heart disease <40 mg/dL, Low: Positive ris k factor for coronary heart disease Performed By: #### THEA, LIPN F, PTHI ####[place] [address] [phone] LDL Cholesterol, NF 65 <100 mg/dL Normal 09-24-2019 [facility] (90588) Comment: Result Comment: <100 mg/dL, Optimal 100-129 mg/dL, Near optimal/ above optimal 130-159 mg/dL, Borderline hi gh 160-189 mg/dL, High >189 mg/dL, Very high Secondary prevention optimal LDL Cholesterol levels are recommended to be < 70 mg/dL Performed By: #### THEA LIPN F, PTHI ####[place] [address] [phone] Non HDL Chol, NF 72 <130 mg/dL Normal 09-24-2019 [facility] (95942) Comment: Result Comment: <130 mg/dL, Optimal 130-159 mg/dL, Near optimal/ above optimal 160-189 mg/dL, Borderline hi gh 190-219 mg/dL, High >219 mg/dL, Very high Secondary prevention optimal non HDL Cholesterol levels are recommended to be < 100 mg/dL Performed By: #### THEA, LIPN F, PTHI ####[place] [address] [phone] Triglycerides, NF 34 <150 mg/dL Normal 09-24-2019 [facility] (35735) Comment: Result Comment: <150 mg/dL, Normal 150-199 mg/dL, Borderline hi gh 200-499 mg/dL, High >499 mg/dL, Very high Performed By: #### CMP, LIPN F, PTHI ####[place] [address] [phone] VLDL Cholesterol, NF 7 <30 mg/dL Normal 0 [facility] (93356) Comment: Performed By: #### CMP, LIPN F, PTHI ####[place] [address] [phone] comp metabolic panel on 2019-09-24 Albumin [Mass/Vol] 3.9 3.9-4.9 g/dL Normal 09-24-2019 [facility] (84954) Comment: Performed By: #### CMP, LIPN F, PTHI ####[place] [address] [phone] ALP [Catalytic activity/Vol] 81 38-113 U/L Normal 0 09-24-2019 [facility] (88749) Comment: Performed By: #### CMP, LIPN F, PTHI ####[place] [address] [phone] ALT [Catalytic activity/Vol] 12 10-54 U/L Normal 0 09-24-2019 [facility] (69454) Comment: Performed By: #### CMP, LIPN F, PTHI ####[place] [address] [phone] Anion gap [Moles/Vol] 12 9-18 mmol/L Normal 09-24-19 20 [facility] (46962) Comment: Performed By: #### CMP, LIPN F, PTHI ####[place] [address] [phone] AST [Catalytic activity/Vol] 24 14-40 U/L Normal 0 09-24-2019 [facility] (31724) Comment: Performed By: #### CMP, LIPN F, PTHI #### [address]CB[address] [place] [address] [phone] Bilirubin [Mass/Vol] 0.4 0.2-1.3 mg/dL Normal 0 [facility] (32394) Comment: Performed By: #### CMP, LIPN F, PTHI ####[place] [address] AveCB[address] [place] [address] [phone] Calcium [Mass/Vol] 10.4 8.5-10.2 mg/dL High 09-24-2019 [facility] (30636) Comment: Performed By: #### CMP, LIPN F, PTHI ####[place] [address] [address] [place] [address] [phone] Chloride [Moles/Vol] 104 97-105 mmol/L Normal 0 [facility] (48297) Comment: Performed By: #### CMP, LIPN F, PTHI ####[place] [address] [place] [address] [phone] CO2 [Moles/Vol] 27 22-30 mmol/L Normal 09-24-2019 [facility] (53057) Comment: Performed By: #### CMP, LIPN F, PTHI ####[place] [address] [place] [address] [phone] Creatinine [Mass/Vol] 2.12 0.73-1.22 mg/dL High 09-24-19 20 [facility] (64470) Comment: Performed By: #### CMP, LIPN F, PTHI ####[facility] [place] [address] [phone] eGFR- Amer. 37 Normal 09-24-2019 [facility] (53334) Comment: Performed By: #### CMP, LIPN F, PTHI ####[place] [address] [place] [address] [phone] GFR/1.73 sq M predicted among 30 . Normal 09-24-2019 [facility] non-blacks MDRD (S/P/Bld) [Vol (31964) rate/Area] Comment: Result Comment: eGFR (Estima melquiades [...] GFR. Performed By: #### YAYO SIDHU PTHI #### [address] [place] [address] [phone] Glucose [Mass/Vol] 93 74-99 mg/dL Normal 09-24-2019 [facility] (52956) Comment: Result Comment: The [place] Diabetes [employer] (ADA) provides guidance for cutoff [...] for diagnosis of diabetes. Reference: Standards of [facility] Care in Diabetes 2016, [place] [employer]. Diabetes Care. 2016.39(Suppl 1). Performed By: #### YAYO SIDHU PTHI #### [id number] [employer] [place] [address] [phone] Potassium [Moles/Vol] 4.6 3.7-5.1 mmol/L Normal 09-24-19 [facility] (88580) Comment: Performed By: #### YAYO SIDHU PTHI ####[facility] [place] [address] [phone] Protein [Mass/Vol] 6.7 6.3-8.0 g/dL Normal 09-24-2019 [facility] (57500) Comment: Performed By: #### CMP, LIPN F, PTHI ####[facility] [place] [address] [phone] Sodium [Moles/Vol] 143 136-144 mmol/L Normal 09-24-2019 [facility] (69137) Comment: Performed By: #### CMP, LIPN F, PTHI ####[facility] [place] [address] [phone] Urea nitrogen [Mass/Vol] 41 9-24 mg/dL High 09-24 [facility] (92345) Comment: Performed By: #### CMP, LIPN F, PTHI ####[facility] [place] [address] [phone] cnov on 2019-09-24 CNOV Office Visit (FAMPWS) Normal 09-24-[address] [place] [address] [facility] SHARAN DURAN JR ([id number]) 1940 [facility] Date Time Provider Department (70753) 09/24/19 8:00 AM CELESTINA PIÑA III FAMPWS [...] reg. walking, resistance training--3-5 d/wk 5. tearing eyes--coo giving him drops w/o benefit. no chest pain, angina, WILEY, cough, abd pain, change in BM, rectal bleeding, change in urination PAST MEDICAL HISTORY Diagnosis Date - Anemia 10/15/2013 - Benign essential tremor 07/03/2010 - CAD in n[place] artery - CKD (chronic kidney disease) stage 3, GFR 30-59 ml/min (HC C) 03/04/2017 - Diaphragmatic hernia without mention of obstruction or [facility] Hiatal hernia - Dyslipidemia - Elevated PSA 03/11/2019 - Esophageal reflux Gastroesophageal reflux - Esophagitis, unspecified - Essential hypertension, benign - Family history of malignant neoplasm of gastrointestinal t ract - Hyperlipidemia LDL goal < 100 09/03/2013 - Hyperparathyroidism ([facility]) 03/04/2017 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: secondary hyp erparathyroidism--?due to CKD III - 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 deficiency ([facility]) 2013 - Hyperparathyroidism, primary ([facility]) 05/27/13 - Mild renal insufficiency 10/15/2013 - NSTEMI (non-ST elevated myocardial infarction) ([facility]) 201709/06/14-- stent - Overweight (BMI 25.0-29.9) - [...] Father - Arthritis Mother - Heart Father [place] * 2 - Prostate Cancer Brother - [...] and as needed consider second opinion from private pilot DIANNE Gamino MD, III MD 09/24/2019 8:23 AM Signed PLAN: healthy diet and regular exercise same medications remember to stretch after exercise labs as ordered return to office 1 yr and as needed consider second opinion from private pilot Celestina Piña III MD Referring Provider: SELF [...] [I25.10] Order(s):PTH INTACT BLD [SQPTHI] Order #: [id number] FUTURE COMP METABOLIC PANEL [SQCMP] Order #: [id number] FUTURE LIPID PANEL, NONFASTING [SQLIPNF] Order #: [id number] FUTURE Prescriptions as of 09/24/2019 Sig: METOPROLOL [...] and as needed consider second opinion from private pilot Celestina Piña III MD Encounter Status:Closed by CELESTINA PIÑA III, MD on 09/24/19 cbc on 2019-09-24 Absolute nRBC <0.01 <0.01 Normal 09-24-2019 [facility] (43408) Comment: Performed By: #### CBC ####C [address] [phone] Erythrocyte distribution 13.1 11.5-15.0 % Normal 09-24 width (RBC) [Ratio] [place] ([address]) Comment: Performed By: #### CBC ####C [address] [phone] Hematocrit (Bld) [Volume 37.9 39.0-51.0 % Low 09-24 [facility] (87996) Comment: Performed By: #### CBC ####C [address] [phone] Hemoglobin (Bld) 12.1 13.0-17.0 g/dL Low 09-24-2019 [facility] [Mass/Vol] [place] ([address]) Comment: Performed By: #### CBC ####C [place] [phone] MCH (RBC) [Entitic mass] 30.9 26.0-34.0 pG Normal 09-24 [facility] (08388) Comment: Performed By: #### CBC ####C [address] [id number] [phone] MCHC (RBC) [Mass/Vol] 31.9 30.5-36.0 g/dL Normal 09-24-19 20 [facility] (69732) Comment: Performed By: #### CBC ####C [address] [id number] [phone] MCV (RBC) [Entitic vol] 96.7 80.0-100.0 fL Normal 09-24 [facility] (00343) Comment: Performed By: #### CBC ####C [address] [phone] Platelet mean volume 11.8 9.0-12.7 fL Normal 0 (Bld) [Entitic vol] [place] ([address]) Comment: Performed By: #### CBC ####C [address] [id number] [phone] Platelets (Bld) [#/Vol] 154 150-400 k/uL Normal 2019 [facility] (41898) Comment: Performed By: #### CBC ####C [address] [phone] RBC (Bld) [#/Vol] 3.92 4.20-6.00 m/uL Low 09-24-2019 [facility] (17769) Comment: Performed By: #### CBC ####C [address] [id number] [phone] WBC (Bld) [#/Vol] 5.95 3.70-11.00 k/uL Normal 09-24-2019 [facility] (70856) Comment: Performed By: #### CBC ####C [facility] [address] [place], [place] [phone] cnptoutreach on CNPTOUTREACH Patient Outreach (INTMWH) Normal 0 09-08-2019 [place] SHARAN Montana JR ([id number]) 1940 [facility] Date Time Provider Department (92957) 09/08/19 CELESTINA PIÑA III INTWH During your visit today, we recorded the following informati on about you: Allergies As of Date: 09/08/2019 Noted Allergy Reaction ACCUPRIL (QUINAPRIL HCL) 07/31/2005 AXID (NIZATIDINE) 07/31/2005 ENTEX PSE (PSEUDOEPHEDRINE-GUAIFE*07/31/2005 LISINOPRIL 11/22/2010 3 - Cough Date Reviewed: 07/03/2019 Reviewed by: Edita ([facility]) CLIF De Oliveira - Fully Assessed Visit Diagnosis:Medication management [Z79.899] Order(s):[facility] [SQCBC] Order #: [id number] FUTURE Prescriptions as of 09/08/2019 Sig: METOPROLOL [...] on 2019-08 OBSOLETE Refill (FAMPWS) Normal 09-02-2019 [facility] SHARAN Montana JR ([id number]) 1940 [facility] Date Time Provider Department ([id number]) 09/02/19 CELESTINA PIÑA IIIPWS During your visit [...] Cough Date Reviewed: 07/03/2019 Reviewed by: Edita ([facility]) CLIF [place] - Fully Assessed [...] on 2019-08 OBSOLETE Refill (FAMPWS) Normal 08-31-2019 [facility] SHARAN Montana JR ([id number]) 1940 [facility] Date Time Provider Department (84888) 08/31/19 CELESTINA PIÑA III During your visit [...] Cough Date Reviewed: 07/03/2019 Reviewed by: Edita ([facility]) CLIF [place] - Fully Assessed [...] on 2019-07 OBSOLETE Refill (FAMPWS) Normal 07-28-2019 [facility] SHARAN DURAN JR ([id number]) 1940 [facility] Date Time Provider Department (57500) 07/28/19 CELESTINA PIÑA III FAMPWS During your [...] Cough Date Reviewed: 07/03/2019 Reviewed by: Edita ([facility]) CLIF [place] - Fully Assessed [...] PSA, Diagnostic 6.28 0.00-2.59 ng/mL High 07-13-2019 [facility] (51037) Comment: Result Comment: Total PSA te st [...] Med 2003,349:335-42. Performed By: #### PSATF ### # [address] [place], [place] [phone] PSA, Percent Free DO NOT ORDER 25 % Normal 07-13-2019 [facility]IOR ONLY (0 0000) Comment: Result Comment: Less than 11 % suggestive of prostate cancer. Greater than 23% suggestive of benign condition. Performed By: #### PSATF ### #[facility] [place], [place] [phone] cnov on 2019-07-07 CNOV Office Visit (VSLWST) Normal 07-07-20 [place] SHARAN Montana JR ([id number]) 1940 [facility] Date Time Provider Department (83060) 07/07/19 11:00 AM [facility] W[facility] VSLWST During your visit today, we [...] low-fa t diet with regular exercise. Celestina Pñia III MD Referring Provider: CELESTINA PIÑA III [[id number]] Allergies As of Date: 07/07/2019 Noted Allergy Reaction ACCUPRIL (QUINAPRIL HCL) 07/31/2005 AXID (NIZATIDINE) 07/31/2005 ENTEX PSE (PSEUDOEPHEDRINE-GUAIFE*07/31/2005 LISINOPRIL 11/22/2010 3 - Cough Date Reviewed: 07/03/2019 Reviewed by: Edita ([facility]) CLIF De Olive[place] - Fully Assessed Visit Diagnosis:Bruit of left carotid artery [R09.89] Order(s):US CAROTID ARTERIES [facility] [[id number]] Order # : [id number]. #:[id number] Prescriptions as of 07/07/2019 Sig: AMLODIPINE 10 [...] 07/07/19 progress on 2019-06 PROGRESS HNO ID: [id number] Normal 07-03-2019 Author: Celestina Piña III [place] ([id number]) Service: ? 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: 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 - 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 deficiency ([facility]) 2013 - Hyperparathyroidism, primary ([facility]) 05/27/13 - Mild renal insufficiency 10/15/2013 - NSTEMI (non-ST elevated myocardial infarction) ([facility]) 201709/06/14-- stent - Overweight (BMI 25.0-29.9) - [...] Father - Arthritis Mother - Heart Father [place] * 2 - Prostate Cancer Brother - Hypertension Brother - None Brother Social History Tobacco Use - Smoking status: Former Smoker - Smokeless tobacco: Never Used - Tobacco comment: quit 1975 Substance Use Topics - Alcohol use: Yes Comment: socially - Drug use: No BP 131/69 Pulse (!) 59 Resp 18 Wt 85.7 kg (189 lb) B [place] 29.16 kg/m? OBJECTIVE: APPEARANCE Well appearing, alert, in no acute distress, well -hydrated, well nourished. NECK Supple, no adenopathy; thyroid symmetric, normal size, L carotid bruit EXTREMITIES tenderness over thumb extensor tendon. Finkelste in test positive. No tenderness of carpals, full painless flex/ext o f R wrist. 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: tendinitis L thumb L carotid bruit-asymptomatic PLAN: R thumb splint rest R thumb --avoid grasping with palm down advil or aleve as needed for pain may use ice as needed for pain ASA 81 mg daily carotid US DIANNE Gamino MD on 2019-07-03 CNOV Office Visit (FAMPWS) Normal 07-03-20 [place] [facility] ROGERSHARAN JR ([id number]) 1940 M [place] Date Time Provider Department ([id number]) 07/03/19 1:00 PM CELESTINA PIÑA III During [...] Benign essential tremor 07/03/2010 - CAD in [place] artery - CKD (chronic kidney disease) stage 3, GFR 30-59 ml/min (HC C) 03/04/2017 - Diaphragmatic hernia without mention of obstruction or mercy grene Hiatal hernia - Dyslipidemia - Elevated PSA 03/11/2019 - Esophageal reflux Gastroesophageal reflux - Esophagitis, unspecified - Essential hypertension, benign - Family history of malignant neoplasm of gastrointestinal t ract - Hyperlipidemia LDL goal < 100 09/03/2013 - Hyperparathyroidism ([facility]) 03/04/2017 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: secondary hyp erparathyroidism--?due to CKD III - 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 deficiency ([facility]) 2013 - Hyperparathyroidism, primary ([facility]) 05/27/13 - Mild renal insufficiency 10/15/2013 - NSTEMI (non-ST elevated myocardial infarction) ([facility]) 201709/06/14-- stent - Overweight (BMI 25.0-29.9) - [...] Father - Arthritis Mother - Heart Father [place] * 2 - Prostate Cancer Brother - Hypertension Brother - None Brother Social History Tobacco Use - Smoking status: Former Smoker - Smokeless tobacco: Never Used - Tobacco comment: quit 1975 Substance Use Topics - Alcohol use: Yes Comment: socially - Drug use: No BP 131/69 Pulse (!) 59 Resp 18 Wt 85.7 kg (189 lb) B [place] 29.16 kg/m? OBJECTIVE: APPEARANCE Well appearing, alert, in no acute distress, we ll-hydrated, well nourished. NECK Supple, no adenopathy; thyroid symmetric, normal size , L carotid bruit EXTREMITIES tenderness over thumb extensor tendo n. Patricia test positive. No tenderness of carpals, full painless flex/ext of R wrist. 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 Author Type: ? Type: Progress [...] caffeine use. 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 Alert and oriented. [...] be contacted after review by William fletcher workplace relations adviser. Amalia Hanna LPN cnnurse on [facility] Nurse Visit (FAMPWS) Normal 9 [place] SHARAN Montana JR ([id number]) 1940 [facility] Date Time Provider Department (69033) 06/22/19 9:15 AM [place] [facility] During your visit today, we recorded [...] be contacted after review by William fletcher workplace relations adviser. Amalia Jacques HEMODIALYSIS LAB TECHNICIAN Referring Provider: CELESTINA PIÑA III [[id number]] Allergies As of Date: 06/22/2019 Noted Allergy [...] * *Final Report* * * Normal 06-16 PA/LAT/OBL RT DATE OF EXAM: Jun 16 2019 2:24PM [place] WOX 5271 - XR WRIST 3V PA/LAT/OBL RT / ([id number]) PROCEDURE REASON: Right wrist pain * * [...] y destruction. IMPRESSION: Carpal cyst, otherwise unremarkable. Care Director Rn: PSCB Transcribe Date/Time: Jun 16 2019 2:31P Dictated by : VICKY EM MD This examination was interpreted and the report reviewed and electronically signed by: VICKY EM MD on Jun 16 2019 2:33PM EST [id number] progress on 2019-06 PROGRESS HNO ID: [id number] Normal 06-16-2019 Author: Mari Newman (Rt) Chucky Funez ([id number]) Service: ? Author Type: Monument Stonecutter Type: Progress Notes Filed: 06/16/2019 2:24 PM [...] 16, 2019 2:24 PM PROGRESS HNO ID: [id number] Normal 06-16-2019 Author: Suleman Alves) Brianna Bill ([id number]) Service: ? Author Type: Physician Field Representative/Health Education Type: Progress Notes Filed: 06/16/2019 4:47 PM [...] Benign essential tremor 07/03/2010 - CAD in [place] artery - CKD (chronic kidney disease) stage 3, GFR 30-59 ml/min (HC C) 03/04/2017 - Diaphragmatic hernia without mention of obstruction or mercy grene Hiatal hernia - Dyslipidemia - Elevated PSA 03/11/2019 - Esophageal reflux Gastroesophageal reflux - Esophagitis, unspecified - Essential hypertension, benign - Family history of malignant neoplasm of gastrointestinal t ract - Hyperlipidemia LDL goal < 100 09/03/2013 - Hyperparathyroidism ([facility]) 03/04/2017 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: 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 - 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 deficiency ([facility]) 2013 - Hyperparathyroidism, primary ([facility]) 05/27/13 - Mild renal insufficiency 10/15/2013 - NSTEMI (non-ST elevated myocardial infarction) ([facility]) 201709/06/14-- stent - Overweight (BMI 25.0-29.9) - [...] 2019-06-16 CNOV Office Visit (UCWSTR) Normal 06-16-20 [place] [facility] SHARAN DURAN JR ([id number]) 1940 [facility] Date Time Provider Department (48511) 06/16/19 2:00 PM SULEMAN REED (JONNA) WSTR [...] Benign essential tremor 07/03/2010 - CAD in [place] artery - CKD (chronic kidney disease) stage [...] - 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 deficiency ([facility]) 2013 - Hyperparathyroidism, primary ([facility]) 05/27/13 - Mild renal insufficiency 10/15/2013 - NSTEMI (non-ST elevated myocardial infarction) ([facility]) 201709/06/14-- stent - Overweight (BMI 25.0-29.9) - [...] [M25.531] Order(s):XR WRIST GENERAL 3V PA/LAT/OBL RT [[id number]] Order #: [id number] FUTURE methylPREDNISolone (MEDROL, JESSICA,) 4 mg Dose-PackFollow [...] on 2019-05-18 CNPN Telephone (FAMPWS) Normal 05-18-2019 [place] SHARAN Montana ([id number]) 1940 [facility] Date Time Provider Department (33818) 05/18/19 CELESTINA PIÑA III During your visit [...] 2018-12-23 XR HAND MINIMUM ORIGINAL Normal 12-23-2018 [facility] 3 VIEWS RIGHT XR HAND MINIMUM 3 VIEWS RIGHT [facility] ([place]) (94065) CLINICAL STATEMENT: eval DIP rt index finger [...] conc 9.7 8.4-10.1 mg/dL Normal 11-10-2018 A [facility] ([place]) (31468) Comment: Performed By: #### GFR, BMP #### [address] [address] Chloride molar conc 108 98-110 mEq/L Normal 11-10-2018 [facility] ([place]) (37497) Comment: Performed By: #### GFR, BMP #### [address] [address] CO2 molar conc 26 22-32 mEq/L Normal 11-10-2018 [facility] ([place]) (02410) Comment: Performed By: #### GFR, BMP #### [address] [address] Creatinine mass conc 1.82 0.60-1.40 mg/dL High 9 [facility] ([place]) (0000 0) Comment: Performed By: #### GFR, BMP #### [address] [address] Electrolyte Balance 8.0 4.0-15.0 mEq/L Normal 11-10-2018 [facility] ([place]) (0000 0) Comment: Performed By: #### GFR, BMP #### [address] [address] Glucose mass conc 91 82-115 mg/dL Normal 11-10-2018 A [facility] ([place]) (78342) Comment: Performed By: #### GFR, BMP #### [address] [address] Potassium molar conc 5.1 3.5-5.0 mEq/L High 9 [facility] ([place]) (68360) Comment: Performed By: #### GFR, BMP #### [place] [id number] Sodium molar conc 142 136-145 mEq/L Normal 11-10-2018 A [facility] ([place]) (19563) Comment: Performed By: #### GFR, BMP #### [place] [address] Urea nitrogen mass conc 52.0 8.0-22.0 mg/dL High 2018 [facility] ([place]) (0000 0) Comment: Performed By: #### GFR, BMP #### [address] [address] Urea nitrogen/Creatinine mass 28.6 10.0-22.0 ratio High 11-10-2018 [facility] ([place]) (20270) Comment: Performed By: #### GFR, BMP #### [address] [address] .gfr on 2018-11-10 GFR Non- 36 ml/min/1.73sqm Normal 11-10-2018 [facility] ([place]) (65771) Comment: Result Comment: GFR Population mean for Afri can Mongolian, Non- Americans Ages 20-29 = 116 mL/min/1.73 [...] meters Performed By: #### GFR, BMP #### [address] [address] GFR 44 ml/min/1.73sqm Normal 04-0 [facility] ([place]) (0000 0) Comment: Result Comment: GFR Population mean for Afri can Mongolian, Non- Americans Ages 20-29 = 116 mL/min/1.73 [...] meters Performed By: #### GFR, BMP #### [address] [address] bmp on 2018-11-06 Creatinine mass conc 1.85 0.60-1.40 mg/dL High 9 [facility] ([place]) (0000 0) Comment: Performed By: #### BMP, GFR #### [address] [address] Urea nitrogen/Creatinine mass 28.1 10.0-22.0 ratio High 11-06-2018 [facility] ([place]) (26350) Comment: Performed By: #### BMP, GFR #### [address] [address] Calcium mass conc 9.4 8.4-10.1 mg/dL Normal 11-06-2018 A [facility] ([place]) (06324) Comment: Performed By: #### BMP, GFR #### [address] [address] Chloride molar conc 111 98-110 mEq/L High 11-06-2018 [facility] ([place]) (52462) Comment: Performed By: #### BMP, GFR #### [address] [address] CO2 molar conc 26 22-32 mEq/L Normal 11-06-2018 [facility] ([place]) (05281) Comment: Performed By: #### BMP, GFR #### [address] [address] Electrolyte Balance 6.0 4.0-15.0 mEq/L Normal 11-06-2018 [facility] ([place]) (0000 0) Comment: Performed By: #### BMP, GFR #### [address] [address] Glucose mass conc 86 82-115 mg/dL Normal 11-06-2018 [facility] ([place]) (20299) Comment: Performed By: #### BMP, GFR #### [address] [address] Potassium molar conc 5.0 3.5-5.0 mEq/L Normal 9 [facility] ([place]) (0000 0) Comment: Performed By: #### BMP, GFR #### [address] [address] Sodium molar conc 143 136-145 mEq/L Normal 11-06-2018 A [facility] ([place]) (84818) Comment: Performed By: #### BMP, GFR #### [address] [address] Urea nitrogen mass conc 52.0 8.0-22.0 mg/dL High 2018 [facility] ([place]) (0000 0) Comment: Performed By: #### BMP, GFR #### [address] [address] .gfr on 2018-11-06 GFR 43 ml/min/1.73sqm Normal - [facility] ([place]) (0000 0) Comment: Result Comment: GFR Population mean for Afri can Mongolian, Non- Americans Ages 20-29 = 116 mL/min/1.73 [...] meters Performed By: #### BMP, GFR #### [address] [address] GFR Non- 36 ml/min/1.73sqm Normal 11-06-2018 [facility] ([place]) (02914) Comment: Result Comment: GFR Population mean for Afri can Mongolian, Non- Americans Ages 20-29 = 116 mL/min/1.73 [...] meters Performed By: #### BMP, GFR #### [address] [address] xr hand minimum 3 views right on 2018-10-31 XR HAND MINIMUM 3 ORIGINAL Normal 10-31-2018 A [facility] VIEWS RIGHT XR HAND MINIMUM 3 VIEWS [facility] ([place]) (35947) CLINICAL STATEMENT: pain , table saw injury [...] INTACT PTH 229.7 14.0-72.0 pg/mL High 07-09-2018 [facility] (00 000) Comment: Performed By: #### CAC ####[place] [address]#### I PTH, D25OH ####[place] [address] [place] [address] 25-oh vitamin d total on 2018-07-09 25-OH Vitamin D Total 56.1 30.0-100.0 ng/mL Normal 07-09- 018 [facility] (00742) Comment: Result Comment: <10 Deficien cy10-29 [id number] Optimal Level>100 Possible Toxicity Performed By: #### CAC ####W [place] [address]#### I PTH, D25OH ####[place] [address] [place] [address] [address] us thyroid on 07-08 US THYROID EXAM: US THYROID, 07/08/2018 Normal 07-08-2018 [facility] 08:50 AMCLINICAL INDICATIONS: [facility] thyroid ydclcvT73.1:[facility] nodule COMPARISON: Ultrasound (01895) thyroid 10/11/2016.TECHNIQUE: Real-time, grayscale ultrasound evaluation of [...] for tissuesampling.* Lesions are classified using the [place] Thyroid Association guidelines [id number]. (Thyroid, Volume 26, #1, 2016) calcium - [address] rd lab on 2018-07-08 Calcium mass conc 10.1 8.6-10.5 mg/dL Normal 07-08-2018 O [facility] nter (43713) Comment: Performed By: #### CAC ####W [place] [address] [address] [place] [address]#### I PTH, D25OH ####[facility] [place], [place] [address] [place], [place] [address] No panel information on 2018-07-08 EXAM: US [...] sampling. * Lesions are classified using the [place] Thyroid Association guidelines of 2015. (Thyroid, Volume 26, #1, 2016) ESSION: Multiple Invalid Interpretat ion Code 07-08-2018 RADIOLOGY subcentimeter thyroid nodules present bilaterally, overall similar in appearance to prior exam. None of these meet size criteria for tissue sampling. * Lesions are classified using the [place] Thyroid Association guidelines of 2015. (Thyroid, Volume 26, #1, 2016) Encounters Date Type Reason Provider Location 05-02-2020 - Patient encounter Patient encounter Edita Chen [facility] 05-02-2020 procedure status [employer] Comment: Population Health Navigation Outreach ([facility] project) 07-08-2018 Patient encounter ELOY VERDUGO [place] [facility] ([address]165) 07-08-2018 - Patient encounter Thyroid nodule Eloy Najera nd Steven 07-08-2018 procedure Other Other Other Other Comment: Arrived 07-08-2018 [facility] ([address]267) 07-08-2018 Patient encounter Nontoxic single [facility] Marco [facility] [place] [facility] ate procedure thyroid nodule [facility] xner [facility] (47358) 04-19-2020 - Refill [facility] Medicin e 04-19-2020 [place] Comment: Refill Request Procedures Procedure Name Date Provider Location US scan of neck 07-08-2018 - 07-08-2018 [facility] Marco Antonio [facility] ( [address]) Colonoscopy 12-27-2013 - 12-27-2013 Jessy brink [facility] (71634) Plan of Treatment Plan Description Date Location DTAP,TDAP,TD (4 - Td) DTAP,TDAP,TD (4 - Td) 11-01-2028 - [facility] 11-01-2028 (08055) LIPID SCREEN LIPID SCREEN 09-24-2024 - 09-24-2024 (41165) DIABETES SCREEN DIABETES SCREEN 02-28-2023 - 02-28-2023 (98775) SERUM CREATININE SERUM CREATININE 02-28-2021 - [place] [facility] 02-28-2021 (06151) ANNUAL PCP TEAM CHRONIC ANNUAL PCP TEAM CHRONIC 11-04-2020 - DISEASE VISIT DISEASE VISIT 11-04-2020 (23412) HEMOGLOBIN/HEMATOCRIT HEMOGLOBIN/HEMATOCRIT 11-04-2020 - [facility] 11-04-2020 (09352) LDL CHOLESTEROL LDL CHOLESTEROL 09-24-2020 - 09-24-2020 (12779) INFLUENZA (#1) INFLUENZA (#1) 2020 - 04-12-2020 (59211) BP CONTROLLED (<130/80) BP CONTROLLED (<130/80) 03-09-2020 - 03-09-2020 (91320) ADVANCE DIRECTIVE ADVANCE DIRECTIVE 09-21-2019 - [facility] inic DISCUSSION DISCUSSION 09-21-2019 (95374) COLONOSCOPY COLONOSCOPY 12-27-2018 - 12-27-2018 (01364) POTASSIUM POTASSIUM 10-11-2017 - [place] 10-11-2017 [facility] (55362) PNEUMOCOCCAL VACCINE PNEUMOCOCCAL VACCINE 2006 - [facility] lloyd SERIES (1 of 2 - PCV13) SERIES (1 of 2 - PCV13) 2006 [facility] (72516) COLON CANCER SCREENING COLON CANCER SCREENING 12-11-1991 - [facility] DISCUSSION DISCUSSION 12-11-1991 [facility] (96441) SHINGRIX VACCINE (1 of SHINGRIX VACCINE (1 of 12-11-1991 - [facility] 2) 2) 12-11-1991 (13373) TDAP (ADULT) TDAP (ADULT) 1960 - [facility] 1960 [facility] (98624) HEPATITIS C SCREENING HEPATITIS C SCREENING 12-11-1959 - [facility] 12-11-1959 (01763) TETANUS TETANUS 12-11-1959 - [facility] 12-11-1959 [facility] (12225) COLONOSCOPY SCRN NOT COLONOSCOPY SCRN NOT 05-02-2021 [facility] HIGH RISK HIGH RISK Endoscopy (90680) Routine Screening for malignant neoplasm of colon 1 Occurrences starting 05/02/2020 until 05/02/2021 Comment: 1 Occurrences starting 05/02 until 05/02/2021 PRE-PROCEDURE & PRE-PROCEDURE & 05-02-2021 PRE-OPERATIVE COVID PRE-OPERATIVE COVID (58835) Microbiology Routine Screening for malignant neoplasm of colon 1 Occurrences starting 05/02/2020 until 05/02/2021 Comment: 1 Occurrences starting 05/02 until 05/02/2021 no information (35994) Immunizations Vaccine Notes Status Date Location DT(PEDIATRIC) diphtheria and tetanus (completed) 06-24-2000 - [facility] toxoids, adsorbed for 06-24-2000 (52990 ) pediatric use Influenza Vaccine, influenza virus (completed) 07-01-2013 - [facility] Split-Non Spec vaccine, unspecified 07-01-2013 (4419 5) formulation Influenza Vaccine, influenza virus (completed) 05-23-2012 - [facility] Split-Non Spec vaccine, unspecified 05-23-2012 (4419 5) formulation Influenza Vaccine, influenza virus (completed) 07[facility]-2011 [facility], unspecified 07-31-2011 (4419 5) formulation Influenza Vaccine, influenza virus (completed) 06-29-2009 - [facility], unspecified 06-29-2009 (4419 5) formulation Influenza Vaccine, influenza virus (completed) 06-26-2006 - [facility] Whole vaccine, whole virus 06-26-2006 ([id number]) Influenza Vaccine, influenza virus (completed) 08-01-2005 - [facility] Whole vaccine, whole virus 08-01-2005 (85160) Influenza Seasonal influenza, high dose (completed) 05-29-2019 - [facility] - High Dose - Age seasonal, 05-29-2019 (12067) 65+ preservative-free Influenza Seasonal influenza, high dose (completed) 05-08-2018 - [facility] - High Dose - Age seasonal, 05-08-2018 (77129) 65+ preservative-free Influenza Seasonal influenza, high dose (completed) 05-30-2017 - [facility] - High Dose - Age seasonal, 05-30-2017 (31938) 65+ preservative-free Influenza Seasonal influenza, high dose (completed) 05-21-2016 - [facility] - High Dose - Age seasonal, 05-21-2016 (39517) 65+ preservative-free Pneumococcal-13 Vac pneumococcal conjugate (completed) 12-24-2014 - Conjugate vaccine, 13 valent 12-24-2014 (31309) Pneumovax pneumococcal (completed) 03-04-2017 - [facility] polysaccharide vaccine, 03-04-2017 (441 95) 23 valent Pneumovax pneumococcal (completed) 08-01-2005 - [facility] polysaccharide vaccine, 08-01-2005 (441 95) 23 valent TD Adult tetanus and diphtheria (completed) 03-13-2012 - [facility] toxoids, adsorbed, 03-13-2012 (89776) preservative free, for adult use (2 Lf of tetanus toxoid and 2 Lf of diphtheria toxoid) Payers Payer Name Policy Number Location AARP [id number] [facility] ([id number]) MEDICARE A AND B [id number] [facility] ([id number]) [employer] [id number] (44 195) [id number] [facility] ([id number]) [id number] [facility] ([id number]) [id number] [facility] ([id number]) The following information is from the original human readable contentNo Payer Records FoundNo Payer Records FoundNo Payer Records FoundNo Payer Records FoundNo Payer Records Found Social History Type Social History Date Location Description Tobacco smoking status Former smoker 07-08-2018 - [facility] NHIS 11-05-2019 [facility] ( 99590) History of tobacco use Current smoker 08-12-1975 [facility] ( 50183) History of tobacco use Cigarette Smoker 08-12-1975 [facility] ( 85089) Sex Assigned At Not on file [facility] ( 31040) Tobacco use and Never used 11-05-2019 - exposure 11-05-2019 (27614) Alcohol intake Current drinker of 11-05-2019 [facility] alcohol (finding) 11-05-2019 (86052) The following information is from the original [...] US THYROID US NECK [address] [place] [address] [facility] [place] [address] Assessments Diagnosis Thyroid nodule Nontoxic uninodular goiter Diagnosis Screening for malignant neoplasm of colo n - Primary Summary Purpose Family History No Family History Records FoundNo Family History Records FoundNo Family History Records FoundNo Family History Records Found Advance Directives No Advanced Directives Records Found Documents on File Type Date 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 Piña please sign pended order Contact made with patient? NO Pt identified by name and : NO Outreach Outcome/Action MyChart message sent Reason for Outreach Care Gap Payer: Payor: [employer] / Plan: [employer] AARP MEDICARE HMO [...] BE BASED ON THE PRIMARY CLINICAL RECORDS. [facility] provides no warranty or guarantee of the accuracy or completeness of information in this document. UNRECOGNIZED CONTENT PROVIDED BELOW FOR UNRECOGNIZED SECTION Reason for Visit Status Reason Specialty Diagnoses / Referred By Referred To Procedures Contact Contact New Request Diagnoses Thyroid nodule Eloy Verdugo MD Procedures US THYROID US NECK [address] [place] [address] [facility] [place] [address] Reason Onset Date Comments Refill Request 04/19/2020 Reason Onset Date Comments Population Health Navigation Outreach 05/02/2020 [facility] project UNRECOGNIZED CONTENT PROVIDED BELOW FOR UNRECOGNIZED SECTION No Status Records FoundNo Status Records FoundNo Status Records FoundNo Status Records Found UNRECOGNIZED CONTENT PROVIDED BELOW FOR UNRECOGNIZED SECTION INFORMATION SOURCE DATE CREATED AUTHOR AUTHOR'S ORGANIZATIO N 07/21/2018 [facility] DATE CREATED AUTHOR AUTHOR'S ORGANIZATIO N 01/03/2019 [facility]) DATE CREATED AUTHOR AUTHOR'S ORGANIZATIO N 10/06/2019 [facility] DATE CREATED AUTHOR AUTHOR'S ORGANIZATIO N 05/04/2020 [facility] UNRECOGNIZED CONTENT PROVIDED BELOW FOR UNRECOGNIZED SECTION Source Comments In the event this information is protected by the Federal Confidentiality of Alcohol and Drug Abuse Patient Records regulations: The Federal rules restrict any use of the information to criminally investigate or prosecute any alcohol or drug abuse patient.In the event this information is protected by the Federal Confidentiality of Alcohol and Drug Abuse Patient Records regulations: The Federal rules restrict any use of the information to criminally investigate or prosecute any alcohol or drug abuse patient. UNRECOGNIZED CONTENT PROVIDED BELOW FOR UNRECOGNIZED SECTION [...]
--- OUTSIDE RECORDS SUMMARY | 2020-05-29 06:28 | XMS RPT_ITS | CCD ---
:1940 External Reference #:[id number] Author Organization [facility] Care Team Providers Name Role Phone Cebul, [...] of Onset Location guaiFENesin / 07-31-2005 - [facility] Pseudoephedrine (02767) Lisinopril Cough 11-22-2010 - [facility] (58461) Nizatidine 07-31-2005 - [facility] (70682) quinapril 07-31-2005 - [facility] (40105) Medications Current Medications Medication Name Sig Date Prescriber Location Doxazosin doxazosin 4 MG PO TABS take [place] 4 mg by mouth daily. [facility] (88037) Losartan losartan 100 MG PO TABS take [place] 100 mg by mouth daily. [facility] (94446) Omeprazole omeprazole [address] Rebecca fletcher [facility] Indications: Symptomatic [facility] Gastroesophageal Reflux [facility] Disease take 40 mg by mouth (35992) daily. Indications: Gastroesophageal Reflux Disease with Current Symptoms Active prasugrel Prasugrel HCl 10 MG Tab take [place] 10 mg by mouth daily.. [facility] Reported on 10/11/2016 [facility] (22751) Completed/Discontinuned Medications Medication Name Sig Date Prescriber Location amLODIPine amLODIPine (NORVASC) 5 12-23-2019 Celestina Karen [facility] mg tablet Take [facility] once daily. 90 [facility] tablet 3 12/23/2019 (85854) Active amLODIPine (NORVASC) 10 mg 11-05-2019 Celestina Jones [facility]'s tablet Take 0.5 tablets by [facility] (03528) mouth once daily. 30 tablet 12 11/05/2019 Active amLODIPine 5 MG PO TABS Scarlet Salvador [facility]'s take 5 mg by mouth daily. [facility] (53747) Active Comment: Take 0.5 tablets by mouth on daily. Take 1 tablet by mouth once daily. Aspirin aspirin, enteric coated 12-24-2014 Celestina Jones [facility] (ADULT LOW DOSE ASPIRIN) [facility] 81 mg EC tablet Take 1 (4321 0) tablet by mouth once daily. 0 12/24/2014 Active aspirin 325 MG Tab take 81 mg by mouth [facility] daily. Active [place] (92896) Comment: Take 1 tablet by mouth once daily. atorvastatin atorvastatin (LIPITOR) 02-29-2020 Criselda Vasquez [facility]'s 40 mg tablet Take 1 [facility] tablet by mouth once (76346) daily. For cholesterol. 90 tablet 3 02/29/2020 Active atorvastatin 20 MG PO TABS take 40 Nora Wile [facility] [place] mg by mouth daily. Active Medica l [place] (16279) Comment: Take 1 tablet by mouth once daily. For cholesterol. Cholecalciferol cholecalciferol, vitamin 01-10-2016 Celestina Jones [facility] D3, 4,000 unit cap Take [facility] 4,000 Units by mouth once [facility] daily. 0 01/10/2016 (29571) Active Cholecalciferol (VITAMIN D) 2000 units Cap [facility] take 4,000 Units by mouth daily.. Active [place] (02438) Comment: Take 4,000 Units by mouth on daily. hydroCHLOROthiazide hydroCHLOROthiazide 08-31-[address] [facility] (HYDRODIURIL, ESIDRIX) 25 [facility] mg tablet Take 1 tablet [facility] by mouth once daily. 90 Cent er (88140) tablet 3 08/31/2019 Active Hydrochlorothiazide 12.5 MG PO TABS take 25 [facility] [place] mg by mouth daily. Active Medica l [place] (19845) Comment: Take 1 tablet by mouth once daily. Metoprolol metoprolol tartrate, 09-02-2019 Celestina Jones [facility] short acting, [facility] (LOPRESSOR) 25 mg tablet (43 210) Take 1 tablet by mouth twice daily. 180 tablet 3 09/02/2019 Active metoprolol 25 MG tab regular release [facility] take 50 mg by mouth 2 times daily. [place] (18715) Active Comment: Take 1 tablet by mouth twice daily. Nitroglycerin nitroglycerin sublingual 03-09-2019 Celestina [place] (NITROSTAT) 0.4 mg SL [facility] Dissolve 1 tablet [facility] (46334) under the tongue every 5 minutes as needed. 25 Bottle of 25 0 03/09/2019 Active NITROGLYCERIN SL by Sublingual route 3 [facility] times daily as needed. Active nt (78773) NITROGLYCERIN SL by Sublingual route 3 [facility] times daily as needed. Active nter (39742) Comment: Dissolve 1 tablet under the tongue every 5 minutes as needed. tamsulosin tamsulosin ER 11-05-2019 - Criselda [facility] (FLOMAX) 0.4 mg Take 04-19-2020 (73186) 1 capsule by mouth daily at bedtime. 90 capsule 1 04/19/2020 Active Comment: Take 1 capsule by mouth hui y at bedtime. Problems Active Problems Category Problem Name Status Date Location Acute myocardial Myocardial infarction Active 03-06-2018 [facility] infarction - (25498) Chronic kidney disease Chronic kidney disease Active 03-04-20 17 [facility] stage 3 - (63683) Coronary Coronary arteriosclerosis Active 03-06-2018 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 degenerative nervous - (34220) system conditions Other lower respiratory Lung mass Active [facility] (63434) Thyroid disorders Thyroid nodule Active 04-30-2013 [facility] (10770) Unclassified Nontoxic single thyroid Active 04-30-2013 [facility] nodule / E04.1(ICD-10) - [facility] (03433) Unclassified Patient encounter status Active [facility] (44454) Past or Other Problems Category Problem Name Status Date Location Deficiency and other Anemia Completed 10-15-2013 - [facility] anemia (82839) Other and unspecified Parathyroid adenoma Completed 03-04-2017 - [facility] benign neoplasm (79034) Other screening for Raised prostate Completed 03-11-2019 - [facility] suspected conditions specific antigen (44 195) (not mental disorders or infectious disease) Results Result Name Value Range Unit Interpretation Flag Date Location progress on 2020-04 PROGRESS HNO ID: [id number] Normal 05-02-2020 [facility] Author: Edita Cordova [facility] [place] ([id number]) Service: ? Author Type: ? Type: Progress Notes Filed: 05/04/2020 7:40 AM Note Text: POPULATION HEALTH NAVIGATION OUTREACH Action/ [facility] project: blood pressure results to payer Patients open care gaps: Colonoscopy Mychart message sent today Dr. Piña please sign pended order Contact made with patient? NO Pt identified by name and : NO Outreach Outcome/Action MyChart message sent Reason for Outreach Care Gap Payer: Payor: [facility] / Plan: [facility] MED[facility] HMO / Pro duct Type: HMO [...] CNPTOUTREACH Patient Outreach (NETNAV) Normal 0 05-02-2020 [facility] SHARAN DURAN JR ([id number]) 1940 [facility] Date Time Provider Department (24476) 05/02/20 EDITA CORDOVA (CLIF) NETNAV During your visit today, we recorded the following informati on about you: Edita Cordova Ma 05/04/2020 7:40 AM Signed POPULATION HEALTH NAVIGATION OUTREACH Action/ [facility] project: blood pressure results to payer Patients open care gaps: Colonoscopy Mychart message sent today Dr. Piña please sign pended order Contact made with patient? NO Pt identified by name and : NO Outreach Outcome/Action MyChart message sent Reason for Outreach Care Gap Payer: Payor: [facility] / Plan: [facility] HMO / Product Type: HMO / [...] Population Health Navigation Outreach [3910] Cmt: [facility] projec t Primary Visit Diagnosis:Screening for malignant neoplasm of colon [Z12.11] Order(s):COLONOSCOPY SCRN NOT HIGH RISK [I9403CH D] Order #: [id number] FUTURE PRE-PROCEDURE AND PRE-OPERATIVE COVID [SQPOCOVD] Order #: [id number] FUTURE Prescriptions as of 05/02/2020 Sig: TAMSULOSIN [...] on 2020-04 OBSOLETE Refill (FAMPWS) Normal 04-19-2020 [facility] SHARAN Montana JR ([id number]) 1940 [facility] Time Provider Department (24346) 04/19/20 CELESTINA PIÑA IIIPWS During your visit [...] at bedtime. Encounter Status:Closed by CRISELDA BRUCE COMMERCIAL PORTF[employer]IO MANAGER on 04/19/20 vitamin d 25 hydroxy on 2020-02-29 Vitamin D 25 Hydroxy 53.6 31.0-80.0 ng/mL Normal 0 [facility] (11443) Comment: Result Comment: Classificati on of 25 [place] Vitamin D status: Insufficiency/Moderate Defic iency: < or = 30 ng/mL Sufficiency/Optimal Levels: 31 to 80 ng/mL Toxicity: > 100 ng/mL Test performed by chemilumin escent immunoassay. Performed By: #### ALB, BMP, VITD ####[facility] [address] [place] [address] [phone] obsolete on 2020-02 OBSOLETE Refill (FAMPWS) Normal 02-29-2020 [facility] SHARAN Montana JR ([id number]) 1940 [facility] Date Time Provider Department (43110) 02/29/20 CELESTINA PIÑA III FAMPWS During your [...] on file. Encounter Status:Closed by CRISELDA BRUCE COMMERCIAL PORTFOLIO MANAGER on 02/29/20 basic metabolic panl on 2020-02-29 Anion gap [Moles/Vol] 9 9-18 mmol/L Normal 02-29-20 20 [facility] (16584) Comment: Performed By: #### ALB, BMP, VITD ####[facility] [address] [place] [address] [phone] Calcium [Mass/Vol] 10.3 8.5-10.2 mg/dL High 02-29-2020 [facility] (43944) Comment: Performed By: #### ALB, BMP, VITD ####[facility] [address] [place] [address] [phone] Chloride [Moles/Vol] 106 97-105 mmol/L High 0 [facility] (27806) Comment: Performed By: #### ALB, BMP, VITD ####[facility] [address] [place] [address] [phone] CO2 [Moles/Vol] 25 22-30 mmol/L Normal 02-29-2020 [facility] (38043) Comment: Performed By: #### ALB, BMP, VITD ####[facility] [address] [place] [address] [phone] Creatinine [Mass/Vol] 2.21 0.73-1.22 mg/dL High 02-29-20 [facility] (21912) Comment: Performed By: #### ALB, BMP, VITD ####[facility] [address] [place] [address] [phone] eGFR- Amer. 35 Normal 02-29-2020 [facility] (02215) Comment: Performed By: #### ALB, BMP, VITD ####[facility] [address] [place] [address] [phone] GFR/1.73 sq M predicted among 29 . Normal 02-29-2020 [facility] non-blacks MDRD (S/P/Bld) [Vol (09651) rate/Area] Comment: Result Comment: eGFR (Estima melquiades [...] GFR. Performed By: #### ALB, BMP, VITD ####[facility] [address] [place] [address] [phone] Glucose [Mass/Vol] 93 74-99 mg/dL Normal 02-29-2020 [facility] (87240) Comment: Result Comment: The [place] Diabetes [employer] (ADA) provides guidance for cutoff [...] for diagnosis of diabetes. Reference: Standards of [facility] in Diabetes 2016, [place] [employer] Association. Diabetes Care. 2016.39(Suppl 1). Performed By: #### ALB, BMP, VITD ####[place] [address] [address] [phone] Potassium [Moles/Vol] 4.3 3.7-5.1 mmol/L Normal 02-29-20 [facility] (24556) Comment: Performed By: #### ALB, BMP, VITD ####[address] [place] [address] [phone] Sodium [Moles/Vol] 140 136-144 mmol/L Normal 02-29-2020 [facility] (06397) Comment: Performed By: #### ALB, BMP, VITD ####[place] [address] [place] [address] [phone] Urea nitrogen [Mass/Vol] 42 9-24 mg/dL High 02-28 [facility] (53034) Comment: Performed By: #### ALB, BMP, VITD ####[place] [address] [place] [address] [phone] albumin on Albumin [Mass/Vol] 3.8 3.9-4.9 g/dL Low 02-29-2020 [facility] (58613) Comment: Performed By: #### ALB, BMP, VITD ####[place] [address] [place] [address] [phone] cnpn on 2020-01-12 CNPN Telephone (FAMWS) Normal 01-12-2020 [place] Sean DURANSHARAN JR ([id number]) 1940 [facility] Date Time Provider Department (47878) 01/12/20 CELESTINA PIÑA III During your visit today, we recorded the following informati on about you: Ayesha Simms RN 01/12/2020 2:14 PM Signed Pt's called, verified pt by name and birthdate. P t's wanted to let PCP know pt went to [facility] ER and is being discharged [...] on 2019-12 OBSOLETE Refill (FAMPWS) Normal 12-23-2019 [facility] SHARAN Montana JR ([id number]) 1940 [facility] Date Time Provider Department (75520) 12/23/19 CELESTINA PIÑA III During your visit [...] 141/69 Please advise. Thank you. Maeve Wakefieldpuramarino INTENSIVE CARE SPECIALIST Patient asking for 5 mg tablet since has problems splitting pills Allergies As of Date: 12/23/2019 Noted Allergy Reaction ACCUPRIL (QUINAPRIL HCL) 07/31/2005 AXID (NIZATIDINE) 07/31/2005 ENTEX PSE (PSEUDOEPHEDRINE-GUAIFE*07/31/2005 LISINOPRIL 11/22/2010 3 - Cough Date Reviewed: 12/01/2019 Reviewed by: Ramesh Barrett Ma - Fully Assessed Reason for Visit: Refill Request [94] Order(s):amLODIPine (NORVASC) 5 mg tabletTake 1 tablet by [facility] once daily.Disp: 90 tabletRfl: 3 Prescriptions as [...] III, MD on 12/23/19 shaniquan on [facility]) Normal 12-11-2019 [place] SHARAN [place] JR ([id number]) 1940 [facility] Date Time Provider Department (70004) 12/11/19 CELESTINA PIÑA III During your visit [...] on 2019-12-07 CNPN Telephone (UROLWS) Normal 12-07-2019 [place] SHARAN [place] JR ([id number]) 1940 [facility] Date Time Provider Department (42061) 12/07/19 ELAINA MAYEN) UROLWS During your visit today, we recorded the following informati on about you: Ziggy Padilla Ma 12/07/2019 11:32 AM Signed Elaina Maciel (Pa) [facility] Urology Pool ? Please, notify patient the urine culture was negative Thank you, Elaina Mayen, [facility], [place], PA-C Ziggy Padilla Ma 12/08/2019 8:03 AM Signed Polisofiat message sent. Ziggy Padilla Ma Allergies As [...] - Presu rgical [facility]ilization [facility] 12-04-2019 [place] identified Cx Nom Culture Result - Normal Urog enital fatoumata: 1,000 - <5,000 CFU/ml --> ABNORMAL ALERT Staphylococcus epidermidis --> ABNORMAL ALERT <1,000 CFU/ml --> ABNORMAL ALERT Streptococcus mitis-oralis group --> ABNORMAL ALERT abnormal Clinic () [place] (44861) Comment: Performed By: #### URCUL ### #[place] [address] [address] [phone] vitamin d 25 hydroxy on 2019-12-02 Vitamin D 25 Hydroxy 50.8 31.0-80.0 ng/mL Normal 0 [facility] (62890) Comment: Result Comment: Classificati on of 25 [place] Vitamin D status: Insufficiency/Moderate Defic iency: < or = 30 ng/mL Sufficiency/Optimal Levels: 31 to 80 ng/mL Toxicity: > 100 ng/mL Test performed by chemilumin escent immunoassay. Performed By: #### ALB, BMP, PHOS, PTHI, VITD ####[place] [address] [place] [phone] pth, intact on 2019 PTH, Intact 163 15-65 pg/mL High 12-02-2019 [facility] (52721) Comment: Performed By: #### ALB, BMP, PHOS, PTHI, VITD ####[place] [address] [place], [place] [phone] phosphorus on 12-01 Phosphate [Mass/Vol] 2.6 2.7-4.8 mg/dL Low 0 [facility] (53844) Comment: Performed By: #### ALB, BMP, PHOS, PTHI, VITD ####[place] [address] [place] [phone] basic metabolic panl on 2019-12-02 Anion gap [Moles/Vol] 13 9-18 mmol/L Normal 12-02-19 20 [facility] (38712) Comment: Performed By: #### ALB, BMP, PHOS, PTHI, VITD ####[place] [address] [address], [place] [phone] Calcium [Mass/Vol] 10.7 8.5-10.2 mg/dL High 12-02-2019 [facility] (52997) Comment: Performed By: #### ALB, BMP, PHOS, PTHI, VITD ####[facility] [address] [place], [place] [phone] Chloride [Moles/Vol] 104 97-105 mmol/L Normal 0 [facility] (65307) Comment: Performed By: #### ALB, BMP, PHOS, PTHI, VITD ####[facility] [address] [place], [place] [phone] CO2 [Moles/Vol] 25 22-30 mmol/L Normal 12-02-2019 [facility] (51917) Comment: Performed By: #### ALB, BMP, PHOS, PTHI, VITD ####[facility] [place], [place] [phone] Creatinine [Mass/Vol] 2.04 0.73-1.22 mg/dL High 12-02-19 20 [facility] (00770) Comment: Performed By: #### ALB, BMP, PHOS, PTHI, VITD ####[facility] [address] [place], [place] [phone] eGFR- Amer. 39 Normal 12-02-2019 [facility] (33664) Comment: Performed By: #### ALB, BMP, PHOS, PTHI, VITD ####[facility] [address] [place], [place] [phone] GFR/1.73 sq M predicted among 32 . Normal 12-02-2019 [facility] non-blacks MDRD (S/P/Bld) [Vol (13775) rate/Area] Comment: Result Comment: eGFR (Estima melquiades [...] By: #### ALB, BMP, PHOS, PTHI, VITD ####[facility] [address] [place], [place] [phone] Glucose [Mass/Vol] 93 74-99 mg/dL Normal 12-02-2019 [facility] (74668) Comment: Result Comment: The [place] Diabetes [employer] (ADA) provides guidance for cutoff [...] for diagnosis of diabetes. Reference: Standards of [facility] in Diabetes 2016, [place] [employer]. Diabetes Care. 2016.39(Suppl 1). Performed By: #### ALB, BMP, PHOS, PTHI, VITD ####[facility] [address] [place], [place] [phone] Potassium [Moles/Vol] 4.2 3.7-5.1 mmol/L Normal 12-02-19 [facility] (10803) Comment: Performed By: #### ALB, BMP, PHOS, PTHI, VITD ####[facility] [address] [place], [place] [phone] Sodium [Moles/Vol] 142 136-144 mmol/L Normal 12-02-2019 [facility] (63600) Comment: Performed By: #### ALB, BMP, PHOS, PTHI, VITD ####[facility] [address] [place], [place] [phone] Urea nitrogen [Mass/Vol] 36 9-24 mg/dL High 12-01 [facility] (52097) Comment: Performed By: #### ALB, BMP, PHOS, PTHI, VITD ####[facility] [address] [place], [place] [phone] albumin on Albumin [Mass/Vol] 4.0 3.9-4.9 g/dL Normal 12-02-2019 [facility] (82354) Comment: Performed By: #### ALB, BMP, PHOS, PTHI, VITD ####[facility] [address] [place], [place] [phone] history physical on 2019-12-01 HISTORY HNO ID: [id number] Normal 12-01-2019 [facility] PHYSICAL Author: Abran [place] Service: ? (72005) Author Type: Physician Type: HANDP Filed: 12/01/2019 [...] Benign essential tremor 07/03/2010 - CAD in [place] artery - CKD (chronic kidney disease) stage [...] Father - Arthritis Mother - Heart Father ID * 2 - Prostate Cancer Brother - [...] on 2019-11-09 CNPN Telephone (URON) Normal 11-09-2019 [id number] 1940 [facility] Date Time Provider Department (21589) 11/09/19 ELAINA MAYEN) JOAN During your visit [...] Cough Date Reviewed: 11/05/2019 Reviewed by: Edita ([facility]) CLIF De Oliveira - Fully Assessed Reason for Visit: Results, Lab [1201] Primary Visit Diagnosis:Dysuria [R30.0] Order(s):sulfamethoxazole-trimethoprim (BACTRIM DS) 800-160 mg per tabletTake 1 tablet by mouth twice daily for 10 days.Disp: 20 tabletRfl : 0 URINE CULTURE [SQURCUL] Order #: [id number] FUTURE Prescriptions as of 11/09/2019 Sig: SULFAMETHOXAZOLE [...] Pre-dose serum. OPERATIVE STERI LIZATION Critically 11-06-2019 [facility] Cx Culture Result - 1,000 - <5, 000 CFU/ml Proteus mirabilis --> ABNORMAL ALERT Normal Urogenital fatoumata: --> ABNORMAL ALERT <1,000 CFU/ml --> ABNORMAL ALERT Streptococcus mitis-oralis group --> ABNORMAL ALERT abnormal Clinic Nom (U) ORGANISM: Proteus mirabilis [place] METHOD: Minimum inhibitory concentration(Vitek) (85873) Antibiotic Interp JENIFFER Status Ampicillin SUSCEPTIBLE <=2 F Gentamicin SUSCEPTIBLE <=1 F Trimeth sulfameth SUSCEPTIBLE <=20 F Cefazolin RESISTANT >=64 F Ciprofloxacin SUSCEPTIBLE <=0.25 F Nitrofurantoin RESISTANT 128 F Cefepime SUSCEPTIBLE <=1 F Piperacillin/Tazobac SUSCEPTIBLE <=4 F Ampicillin Sulbact SUSCEPTIBLE <=2 F Ceftriaxone SUSCEPTIBLE <=1 F Meropenem SUSCEPTIBLE <=0.25 F Ertapenem SUSCEPTIBLE <=0.5 F Comment: Performed By: #### URCUL ### #[facility] [address] [place], [place] [phone] progress on 2019-10 PROGRESS HNO ID: [id number] Normal 11-06-2019 [facility] Author: Elaina Alves) Melina Bill ([id number]) Service: ? Author Type: Physician Birth Attendant Type: Progress Notes Filed: 11/12/2019 12:34 PM [...] mailed to patient as a remind er polymerization supervisor portion filed so follow-up can be set-up once COVI D19 precautions have ended. I spent approximately 40 minutes in this Telemedicine visit, with more than 50% of the time devoted to patient discussion, counseli ng, review of records and/or coordination of care. Elaina Mayen, JAMSHIDS, MT, PA-C cnov on 2019-11-06 CNOV Office Visit (UROLWS) Normal 11-06-[address] [place] [address] Clinic SHARNA DURAN JR ([id number]) 1940 [facility] Date Time Provider Department (57987) 11/06/19 10:30 AM ELAINA MAYEN (JONNA) UROLWS [...] mailed to patient as a remind er polymerization supervisor portion filed so follow-up can be set-up once CO VID19 precautions have ended. I spent approximately 40 min utes in this Telemedicine visit, with more than 50% of the time devoted to patie nt discussion, counseling, review of records and/or coordination of care. 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, N13.8] Order(s):URINE CULTURE [SQURCUL] Order #: [id number] FUTURE CONSULT TO UROLOGY [9041] Order #: [id number]: 1 Prescriptions as of 11/06/2019 Sig: AMLODIPINE [...] 2019-11-05 Bilirubin, Urine Negative Negative Normal 11-05-2019 [facility] (57157) Comment: Performed By: #### UAWMIC ## ##[facility] [address] [place], [place] [phone] Clarity (U) Clear Clear Normal 11-05-2019 [facility] (38876) Comment: Performed By: #### UAWMIC ## ##[facility] [address]levelS[address], [place] [phone]- [phone] Color (U) Light Yellow Yellow Critically abnormal 020 [facility] (69021) Comment: Performed By: #### UAWMIC ## ##[facility], [place] [phone]- [phone] Comments SEE COMMENT Normal 11-05-2019 [facility] (19885) Comment: Result Comment: N/A Performed By: #### UAWMIC ## ##[place] [address], [place] [phone]- [phone] Glucose Ql (U) Negative Negative Normal 11-05-2019 [facility] (01756) Comment: Performed By: #### UAWMIC ## ##[place] [address], [place] [phone]- [phone] Hemoglobin/Blood,Ur Negative Negative Normal 11-05-2019 [facility] (51287) Comment: Performed By: #### UAWMIC ## ##[place] [address], [place] [phone]- [phone] Ketones Ql (U) Negative Negative Normal 11-05-2019 [facility] (69210) Comment: Performed By: #### UAWMIC ## ##[place] [address], [place] [phone] Leukest Trace Negative Critically abnormal 11-05-2019 [facility] (16101) Comment: Performed By: #### UAWMIC ## ##[place] [address], [place] [phone]- [phone] Nitrite Ql (U) Negative Negative Normal 11-05-2019 [facility] (87537) Comment: Performed By: #### UAWMIC ## ##[facility], [place] [phone]- [phone] pH (Bld) 7.0 5.0-8.0 Normal 11-05-2019 [facility] (87775) Comment: Performed By: #### UAWMIC ## ##[place] [address], [place] [phone]- [phone] Protein (U) 2+ Negative mg/dL Critically abnormal 11-05-19 20 [facility] [Mass/Vol] [place] (39636) Comment: Performed By: #### UAWMIC ## ##[facility], [place] [phone]- [phone] RBC (U) [#/Vol] 0-3 0-3 Normal 11-05-2019 [facility] (09506) Comment: Performed By: #### UAWMIC ## ##[place] [address], [place] [phone]- [phone] Specific [place], Ur 1.016 1.005-1.030 Normal 020 [facility] (63946) Comment: Performed By: #### UAWMIC ## ##[place] [address], [place] [phone]- [phone] Urine Jeniffer Comment SEE COMMENT Normal 11-05-2019 [facility] (43514) Comment: Result Comment: N/A Performed By: #### UAWMIC ## ##[facility], [place] [phone]- [phone] Urobilinogen Qn (U) Negative Negative Normal 11-05-2019 [facility] (00923) Comment: Performed By: #### UAWMIC ## ##[facility] [address]CAz[address], [place] [phone]- [phone] WBC (Bld) [#/Vol] 6-10 0-5 Critically abnormal [facility] (44199) Comment: Performed By: #### UAWMIC ## ##[facility] [address]CA[address], [place] [phone]- [phone] progress on 2019-10 PROGRESS HNO ID: [id number] Normal 11-05-2019 [facility] Author: Celestina Piña III [place] ([id number]) Service: ? 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: 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 - 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 deficiency ([facility]) 2013 - Hyperparathyroidism, primary ([facility]) 05/27/13 - Mild renal insufficiency 10/15/2013 - NSTEMI (non-ST elevated myocardial infarction) ([facility]) 201709/06/14-- stent - Overweight (BMI [...] Father - Arthritis Mother - Heart Father ID * 2 - Prostate Cancer Brother - [...] Albumin [Mass/Vol] 3.8 3.9-4.9 g/dL Low 11-05-2019 [facility] (13351) Comment: Performed By: #### CMP, CBC ####[place] [address], [place] [phone]- [phone] ALP [Catalytic activity/Vol] 89 38-113 U/L Normal 0 11-05-2019 [facility] (80694) Comment: Performed By: #### CMP, CBC ####[facility] [address]CAz[address], [place] [phone]- [phone] ALT [Catalytic activity/Vol] 17 10-54 U/L Normal 0 11-05-2019 [facility] (77610) Comment: Performed By: #### CMP, CBC ####[facility] [address]CAz[address], [place] [phone]- [phone] Anion gap [Moles/Vol] 14 9-18 mmol/L Normal 11-05-19 [facility] (06206) Comment: Performed By: #### CMP, CBC ####[facility], [place] [phone]- [phone] AST [Catalytic activity/Vol] 22 14-40 U/L Normal 0 11-05-2019 [facility] (36041) Comment: Performed By: #### CMP, CBC ####[facility] [address]CA[address], [place] [phone]- [phone] Bilirubin [Mass/Vol] 0.4 0.2-1.3 mg/dL Normal 0 [facility] (27594) Comment: Performed By: #### CMP, CBC ####[place] [address], [place] [phone]- [phone] Calcium [Mass/Vol] 10.5 8.5-10.2 mg/dL High 11-05-2019 [facility] (93169) Comment: Performed By: #### CMP, CBC ####[place] [address], [place] [phone]- [phone] Chloride [Moles/Vol] 103 97-105 mmol/L Normal 0 [facility] (25768) Comment: Performed By: #### CMP, CBC ####[place] [address], [place] [phone]- [phone] CO2 [Moles/Vol] 24 22-30 mmol/L Normal 11-05-2019 [facility] (46743) Comment: Performed By: #### CMP, CBC ####[place] [address], [place] [phone]- [phone] Creatinine [Mass/Vol] 2.13 0.73-1.22 mg/dL High 11-05-19 20 [facility] (05300) Comment: Performed By: #### CMP, CBC ####[place] [address], [place] [phone]- [phone] eGFR- Amer. 37 Normal 11-05-2019 [facility] (06378) Comment: Performed By: #### CMP, CBC ####[place] [address], [place] [phone]- [phone] GFR/1.73 sq M predicted among 30 . Normal 11-05-2019 [facility] non-blacks MDRD (S/P/Bld) [Vol (89334) rate/Area] Comment: Result Comment: eGFR (Estima melquiades [...] actual GFR. Performed By: #### CMP, CBC ####[facility], [place] [phone]- [phone] Glucose [Mass/Vol] 101 74-99 mg/dL High 11-05-2019 [facility] (52647) Comment: Result Comment: The [place] Diabetes Association (ADA) provides guidance for cutoff [...] for diagnosis of diabetes. Reference: Standards of [facility] Care in Diabetes 2016, [place] Diabetes [employer]. Diabetes Care. 2016.39(Suppl 1). Performed By: #### CMP, CBC ####[facility], [place] [phone]- [phone] Potassium [Moles/Vol] 4.4 3.7-5.1 mmol/L Normal 11-05-19 20 [facility] (79131) Comment: Performed By: #### CMP, CBC ####[address] [phone]- [phone] Protein [Mass/Vol] 6.7 6.3-8.0 g/dL Normal 11-05-2019 [facility] (19586) Comment: Performed By: #### CMP, CBC ####[place] [address] [place], [place] [phone]- [phone] Sodium [Moles/Vol] 141 136-144 mmol/L Normal 11-05-2019 [facility] (68795) Comment: Performed By: #### CMP, CBC ####[place] [address] [place], [place] [phone]- [phone] Urea nitrogen [Mass/Vol] 40 9-24 mg/dL High 11-04 [facility] (93396) Comment: Performed By: #### CMP, CBC ####[facility] [place], [place] [phone]- [phone] cnov on 2019-11-05 CNOV Office Visit (LAB) Normal 11-05-2019 [facility] SHARAN DURAN JR ([id number]) 1940 [facility] Date Time Provider Department (52713) 11/05/19 3:20 PM [facility] During your visit today, we recorded [...] III MD Referring Provider: CELESTINA PIÑA III [[id number]] Allergies As of Date: 11/05/2019 Noted Allergy Reaction ACCUPRIL (QUINAPRIL HCL) 07/31/2005 AXID (NIZATIDINE) 07/31/2005 ENTEX PSE (PSEUDOEPHEDRINE-GUAIFE*07/31/2005 LISINOPRIL 11/22/2010 3 - Cough Date Reviewed: 11/05/2019 [facility]: [facility] CLIF De Oliveira - Fully Assessed Visit Diagnoses:Essential hypertension, benign [I10] CKD (chronic kidney disease) stage 3, GFR 30-59 ml/min (HCC) [N18.3] Order(s):COMP METABOLIC PANEL [SQCMP] Order #: [id number]. #:[id number] CBC [SQCBC] Order #: [id number]. #:[id number] Prescriptions as of 11/05/2019 Sig: AMLODIPINE 10 [...] by CELESTINA PIÑA III, MD on 11/06/19 [facility] Office Visit (FAMPWS) Normal 11-05-[address] [place] [address] [facility] SHARAN DURAN JR ([id number]) 1940 [facility] Date Time Provider Department ([id number]) 11/05/19 2:40 PM [facility], we recorded the [...] Benign essential tremor 07/03/2010 - CAD in [place] artery - CKD (chronic kidney disease) stage [...] - 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 deficiency ([facility]) 2013 - Hyperparathyroidism, primary ([facility]) 05/27/13 - Mild renal insufficiency 10/15/2013 - NSTEMI (non-ST elevated myocardial infarction) ([facility]) 201709/06/14-- stent - Overweight (BMI [...] Father - Arthritis Mother - Heart Father ID * 2 - Prostate Cancer Brother - [...] III MD Referring Provider: CELESTINA PIÑA III [[id number]] Allergies As of Date: 11/05/2019 Noted Allergy Reaction ACCUPRIL (QUINAPRIL HCL) 07/31/2005 AXID (NIZATIDINE) 07/31/2005 ENTEX PSE (PSEUDOEPHEDRINE-GUAIFE*07/31/2005 LISINOPRIL 11/22/2010 3 - Cough Date Reviewed: 11/05/2019 Reviewed by: Edita ([facility]) CLIF [place] - Fully Assessed Reason [...] 12 COMP METABOLIC PANEL [SQCMP] Order #: [id number] FUTURE CBC [SQCBC] Order #: [id number] FUTURE URINALYSIS WITH MICROSCOPIC [SQUAWMIC] Order #: [id number] ec. #:[id number] tamsulosin ER (FLOMAX) 0.4 mgTake 1 capsule by mouth daily a t bedtime.Disp: 30 capsuleRfl: 11 CONSULT TO UROLOGY [9041] Order #: [id number]: 1 FUTURE Prescriptions as of 11/05/2019 Sig: [...] 2019-11-05 Absolute nRBC <0.01 <0.01 Normal 11-05-2019 [facility] (51606) Comment: Performed By: #### CMP, CBC ####[address], [place] [phone]- [phone] Erythrocyte distribution 13.2 11.5-15.0 % Normal 11-04 [facility] width (RBC) [Ratio] [facility] (51124) Comment: Performed By: #### CMP, CBC ####[address], [place] [phone]- [phone] Hematocrit (Bld) [Volume 37.7 39.0-51.0 % Low 11-04 [facility] fraction] (67583) Comment: Performed By: #### CMP, CBC ####[address], [place] [phone] Hemoglobin (Bld) 11.4 13.0-17.0 g/dL Low 11-05-2019 [facility] [Mass/Vol] [place] (19276) Comment: Performed By: #### CMP, CBC ####[address], [place] 48473940- [phone] MCH (RBC) [Entitic mass] 28.6 26.0-34.0 pG Normal 11-04 [facility] (13173) Comment: Performed By: #### CMP, CBC ####[address], [place] [address] [phone] MCHC (RBC) [Mass/Vol] 30.2 30.5-36.0 g/dL Low 11-05-19 20 [facility] (73978) Comment: Performed By: #### CMP, CBC ####[place] [address], [place] [phone]- [phone] MCV (RBC) [Entitic vol] 94.7 80.0-100.0 fL Normal 11-04 [facility] (57586) Comment: Performed By: #### CMP, CBC ####[facility] [place], [place] [address]d [place], [place] [phone]- [phone] Platelet mean volume 12.3 9.0-12.7 fL Normal 0 [facility] (Bld) [Entitic vol] [place] (25470) Comment: Performed By: #### CMP, CBC ####[address], [place] [phone]- [phone] Platelets (Bld) [#/Vol] 162 150-400 k/uL Normal 2019 [facility] (73568) Comment: Performed By: #### CMP, CBC ####[address] [place], [place] [phone]- [phone] RBC (Bld) [#/Vol] 3.98 4.20-6.00 m/uL Low 11-05-2019 [facility] (50181) Comment: Performed By: #### CMP, CBC ####[address] [place], [place] [phone]- [phone] WBC (Bld) [#/Vol] 7.52 3.70-11.00 k/uL Normal 11-05-2019 [facility] (06093) Comment: Performed By: #### CMP, CBC ####[facility], [place] [phone]- [phone] obsolete on 2019-10 OBSOLETE Refill (FAMPWS) Normal 10-20-2019 [facility] SHARAN DURAN JR ([id number]) 1940 [facility] Time Provider Department (31318) 10/20/19 CELESTINA PIÑA III During your visit [...] DATE OF EXAM: Oct 06 2019 1:00PM [facility] (68191) MMN 0041 - NM THY UPTAKE ONLY [...] in the left lower neck, as noted. 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: PSCB Transcribe Date/Time: Oct 06 2019 2:44P Dictated by : CRISTOBAL LEE MD This examination was interpreted and the report reviewed and electronically signed by: CRISTOBAL LEE MD on Oct 06 2019 2:56PM EST [id number] pth, intact on 2019 PTH, Intact 154 15-65 pg/mL High 09-24-2019 [facility] (71632) Comment: Performed By: #### CMP, LIPN F, PTHI ####[facility] [address] [place] [address] [phone] progress on 2019-09 PROGRESS HNO ID: [id number] Normal 09-24-2019 [facility] Author: Celestina Piña III [facility] ([id number]) Service: ? Author Type: Physician Type: Progress Notes Filed: 09/24/2019 8:29 AM Note Text: SUBJECTIVE: This is a 78 year old male that is here today fo r Chronic Medical Conditions. 1. hypertension 2. CKD III 3. 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 reg. 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 no chest pain, angina, WILEY, cough, abd pain, change in BM, r ectal bleeding, change in urination PAST MEDICAL HISTORY Diagnosis Date - Anemia 10/15/2013 - Benign essential tremor 07/03/2010 - CAD in [place] artery - CKD (chronic kidney disease) stage 3, GFR 30-59 ml/min (HC C) 03/04/2017 - Diaphragmatic hernia without mention of obstruction or mercy grene Hiatal hernia - Dyslipidemia - Elevated PSA 03/11/2019 - Esophageal reflux Gastroesophageal reflux - Esophagitis, unspecified - Essential hypertension, benign - Family history of malignant neoplasm of gastrointestinal t ract - Hyperlipidemia LDL goal < 100 09/03/2013 - Hyperparathyroidism ([facility]) 03/04/2017 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 - amLODIPine (NORVASC) 10 [...] Father - Arthritis Mother - Heart Father ID * 2 - Prostate Cancer Brother - [...] and as needed consider second opinion from equip tech Celestina Piña III lipid panel, nonfast on 2019-09-24 Cholesterol [Mass/Vol] 140 <200 mg/dL Normal 020 [facility] (43548) Comment: Result Comment: <200 mg/dL, Desirable 200-239 mg/dL, Borderline hi gh >239 mg/dL, High Performed By: #### CMP, LIPN F, PTHI ####[facility] [place] [address] [phone] Cholesterol in 0.96 <2.54 mg/dL Normal 09-24-2019 [facility] LDL/Cholesterol in HDL [[facility] (14571) ratio] Comment: Result Comment: Reference: 1. National Cholesterol Educ ation Program ATP III Guideline At-A-Glance Quick Desk Reference: National Heart, Lung, and Blood [place]. National Institutes of Health. 2001: NIH Publication No. 01-3305. 2. An International Atherosc lerosis Society position paper: global recommendations for the management of dyslipidemia: executive summary, Atherosclerosis. 2014: 232(2):410-413. Performed By: #### CMP, LIPN F, PTHI ####[facility] [place] [address] [phone] Cholesterol.total/Cholesterol in 2.06 <5.10 mg/dL Normal 09-24-2019 [facility] HDL [Mass ratio] [facility] (50788) Comment: Performed By: #### THEA LIPN F, PTHI ####[place] [address] [phone] HDL Cholesterol, NF 68 >39 mg/dL Normal 09-24-2019 [facility] (40440) Comment: Result Comment: 40-59 mg/dL, Acceptable >59 mg/dL, High: Negative ri sk factor for coronary heart disease <40 mg/dL, Low: Positive ris k factor for coronary heart disease Performed By: #### THEA, LIPN F, PTHI ####[place] [address] [phone] LDL Cholesterol, NF 65 <100 mg/dL Normal 09-24-2019 [facility] (03900) Comment: Result Comment: <100 mg/dL, Optimal 100-129 mg/dL, Near optimal/ above optimal 130-159 mg/dL, Borderline hi gh 160-189 mg/dL, High >189 mg/dL, Very high Secondary prevention optimal LDL Cholesterol levels are recommended to be < 70 mg/dL Performed By: #### THEA LIPN F, PTHI ####[place] [address] [phone] Non HDL Chol, NF 72 <130 mg/dL Normal 09-24-2019 [facility] (21482) Comment: Result Comment: <130 mg/dL, Optimal 130-159 mg/dL, Near optimal/ above optimal 160-189 mg/dL, Borderline hi gh 190-219 mg/dL, High >219 mg/dL, Very high Secondary prevention optimal non HDL Cholesterol levels are recommended to be < 100 mg/dL Performed By: #### THEA, LIPN F, PTHI ####[place] [address] [phone] Triglycerides, NF 34 <150 mg/dL Normal 09-24-2019 [facility] (39354) Comment: Result Comment: <150 mg/dL, Normal 150-199 mg/dL, Borderline hi gh 200-499 mg/dL, High >499 mg/dL, Very high Performed By: #### CMP, LIPN F, PTHI ####[place] [address] [phone] VLDL Cholesterol, NF 7 <30 mg/dL Normal 0 [facility] (02276) Comment: Performed By: #### CMP, LIPN F, PTHI ####[place] [address] [phone] comp metabolic panel on 2019-09-24 Albumin [Mass/Vol] 3.9 3.9-4.9 g/dL Normal 09-24-2019 [facility] (21518) Comment: Performed By: #### CMP, LIPN F, PTHI ####[place] [address] [phone] ALP [Catalytic activity/Vol] 81 38-113 U/L Normal 0 09-24-2019 [facility] (17854) Comment: Performed By: #### CMP, LIPN F, PTHI ####[place] [address] [phone] ALT [Catalytic activity/Vol] 12 10-54 U/L Normal 0 09-24-2019 [facility] (19250) Comment: Performed By: #### CMP, LIPN F, PTHI ####[place] [address] [phone] Anion gap [Moles/Vol] 12 9-18 mmol/L Normal 09-24-19 20 [facility] (85091) Comment: Performed By: #### CMP, LIPN F, PTHI ####[place] [address] [phone] AST [Catalytic activity/Vol] 24 14-40 U/L Normal 0 09-24-2019 [facility] (75133) Comment: Performed By: #### CMP, LIPN F, PTHI ####[facility] [address] [place] [address] [phone] Bilirubin [Mass/Vol] 0.4 0.2-1.3 mg/dL Normal 0 [facility] (41717) Comment: Performed By: #### CMP, LIPN F, PTHI ####[place] [address] [place] [address] [phone] Calcium [Mass/Vol] 10.4 8.5-10.2 mg/dL High 09-24-2019 [facility] (95284) Comment: Performed By: #### CMP, LIPN F, PTHI ####[place] [address] [place] [address] [phone] Chloride [Moles/Vol] 104 97-105 mmol/L Normal 0 [facility] (26956) Comment: Performed By: #### CMP, LIPN F, PTHI ####[place] [address] [place] [address] [phone] CO2 [Moles/Vol] 27 22-30 mmol/L Normal 09-24-2019 [facility] (95713) Comment: Performed By: #### CMP, LIPN F, PTHI ####[place] [address] [address] [phone] Creatinine [Mass/Vol] 2.12 0.73-1.22 mg/dL High 09-24-19 20 [facility] (01948) Comment: Performed By: #### CMP, LIPN F, PTHI ####[facility] [place] [address] [phone] eGFR- Amer. 37 Normal 09-24-2019 [facility] (24899) Comment: Performed By: #### CMP, LIPN F, PTHI ####[place] [address] [place] [address] [phone] GFR/1.73 sq M predicted among 30 . Normal 09-24-2019 [facility] non-blacks MDRD (S/P/Bld) [Vol (50462) rate/Area] Comment: Result Comment: eGFR (Estima melquiades [...] GFR. Performed By: #### YAYO SIDHU PTHI ####[facility] [address] [place] [address] [phone] Glucose [Mass/Vol] 93 74-99 mg/dL Normal 09-24-2019 [facility] (28701) Comment: Result Comment: The [place] Diabetes Association (ADA) provides guidance for cutoff [...] for diagnosis of diabetes. Reference: Standards of [facility] Care in Diabetes 2016, [place] [employer]. Diabetes Care. 2016.39(Suppl 1). Performed By: #### YAYO SIDHU PTHI ####[facility] [address] [place] [address] [phone] Potassium [Moles/Vol] 4.6 3.7-5.1 mmol/L Normal 09-24-19 [facility] (95474) Comment: Performed By: #### YAYO SIDHU PTHI ####[facility] [place] [address] [phone] Protein [Mass/Vol] 6.7 6.3-8.0 g/dL Normal 09-24-2019 [facility] (97917) Comment: Performed By: #### CMP, LIPN F, PTHI ####[facility] [place] [address] [phone] Sodium [Moles/Vol] 143 136-144 mmol/L Normal 09-24-2019 [facility] (92470) Comment: Performed By: #### CMP, LIPN F, PTHI ####[facility] [place] [address] [phone] Urea nitrogen [Mass/Vol] 41 9-24 mg/dL High 09-24 [facility] (84705) Comment: Performed By: #### CMP, LIPN F, PTHI ####[facility] [place] [address] [phone] cnov on 2019-09-24 CNOV Office Visit (FAMPWS) Normal 09-24-[address] [place] [address] [facility] SHARAN DURAN JR ([id number]) 1940 [facility] Date Time Provider Department (07273) 09/24/19 8:00 AM CELESTINA PIÑA III FAMPWS [...] reg. 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 no chest pain, angina, WILEY, cough, abd pain, change in BM, rectal bleeding, change in urination PAST MEDICAL HISTORY Diagnosis Date - Anemia 10/15/2013 - Benign essential tremor 07/03/2010 - CAD in [place] artery - CKD (chronic kidney disease) stage 3, GFR 30-59 ml/min (HC C) 03/04/2017 - Diaphragmatic hernia without mention of obstruction or mercy g[facility] Hiatal hernia - Dyslipidemia - Elevated PSA 03/11/2019 - Esophageal reflux Gastroesophageal reflux - Esophagitis, unspecified - Essential hypertension, benign - Family history of malignant neoplasm of gastrointestinal t ract - Hyperlipidemia LDL goal < 100 09/03/2013 - Hyperparathyroidism ([facility]) 03/04/2017 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: secondary hyp erparathyroidism--?due to CKD III - 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 deficiency ([facility]) 2013 - Hyperparathyroidism, primary ([facility]) 05/27/13 - Mild renal insufficiency 10/15/2013 - NSTEMI (non-ST elevated myocardial infarction) ([facility]) 201709/06/14-- stent - Overweight (BMI [...] Father - Arthritis Mother - Heart Father ID * 2 - Prostate Cancer Brother - [...] and as needed consider second opinion from equip tech DIANNE Gamino MD, III MD 09/24/2019 8:23 AM Signed PLAN: healthy diet and regular exercise same medications remember to stretch after exercise labs as ordered return to office 1 yr and as needed consider second opinion from equip tech Celestina Piña III MD Referring Provider: SELF [...] [I25.10] Order(s):PTH INTACT BLD [SQPTHI] Order #: [id number] FUTURE COMP METABOLIC PANEL [SQCMP] Order #: [id number] FUTURE LIPID PANEL, NONFASTING [SQLIPNF] Order #: [id number] FUTURE Prescriptions as of 09/24/2019 Sig: METOPROLOL [...] and as needed consider second opinion from equip tech Celestina Piña III MD Encounter Status:Closed by CELESTINA PIÑA III, MD on 09/24/19 cbc on 2019-09-24 Absolute nRBC <0.01 <0.01 Normal 09-24-2019 [facility] (75510) Comment: Performed By: #### CBC ####C [address] [phone] Erythrocyte distribution 13.1 11.5-15.0 % Normal 09-24 [facility] width (RBC) [Ratio] [place] (35011) Comment: Performed By: #### CBC ####C [address] [phone] Hematocrit (Bld) [Volume 37.9 39.0-51.0 % Low 09-[address] [facility] (17588) Comment: Performed By: #### CBC ####C [address] [id number]- [phone] Hemoglobin (Bld) 12.1 13.0-17.0 g/dL Low 09-24-2019 [facility] [Mass/Vol] [place] (95670) Comment: Performed By: #### CBC ####C [place] [phone] MCH (RBC) [Entitic mass] 30.9 26.0-34.0 pG Normal 09-24 [facility] (23494) Comment: Performed By: #### CBC ####C [address] [id number] [phone] MCHC (RBC) [Mass/Vol] 31.9 30.5-36.0 g/dL Normal 09-24-19 20 [facility] (70609) Comment: Performed By: #### CBC ####C [address] [id number] [phone] MCV (RBC) [Entitic vol] 96.7 80.0-100.0 fL Normal 09-24 [facility] (65054) Comment: Performed By: #### CBC ####C [address] [id number] [phone] Platelet mean volume 11.8 9.0-12.7 fL Normal 0 [facility] (Bld) [Entitic vol] [place] (25299) Comment: Performed By: #### CBC ####C [address] [phone] Platelets (Bld) [#/Vol] 154 150-400 k/uL Normal 2019 [facility] (45476) Comment: Performed By: #### CBC ####C [address] [id number] [phone] RBC (Bld) [#/Vol] 3.92 4.20-6.00 m/uL Low 09-24-2019 [facility] (41343) Comment: Performed By: #### CBC ####C [address] [id number] [phone] WBC (Bld) [#/Vol] 5.95 3.70-11.00 k/uL Normal 09-24-2019 [facility] (08436) Comment: Performed By: #### CBC ####C [facility] [address] [place], [place] [phone]- [phone] cnptoutreach on CNPTOUTREACH Patient Outreach (INTMWH) Normal 0 09-08-2019 [place] SHARAN Montana JR ([id number]) 1940 [facility] Date Time Provider Department (42354) 09/08/19 CELESTINA PIÑA III INTWH During your visit today, we recorded the following informati on about you: Allergies As of Date: 09/08/2019 Noted Allergy Reaction ACCUPRIL (QUINAPRIL HCL) 07/31/2005 AXID (NIZATIDINE) 07/31/2005 ENTEX PSE (PSEUDOEPHEDRINE-GUAIFE*07/31/2005 LISINOPRIL 11/22/2010 3 - Cough Date Reviewed: 07/03/2019 Reviewed by: Ediat ([facility]) CLIF De Oliveira - Fully Assessed Visit Diagnosis:Medication management [Z79.899] Order(s):[facility] [SQCBC] Order #: [id number] FUTURE Prescriptions as of 09/08/2019 Sig: METOPROLOL [...] on 2019-08 OBSOLETE Refill (FAMPWS) Normal 09-02-2019 [facility] SHARAN Montana JR ([id number]) 1940 [facility] Date Time Provider Department (38061) 09/02/19 CELESTINA PIÑA IIIPWS During your visit [...] Cough Date Reviewed: 07/03/2019 Reviewed by: Edita ([facility]) CLIF De Oliveira - Fully Assessed Reason [...] on 2019-08 OBSOLETE Refill (FAMPWS) Normal 08-31-2019 [facility] SHARAN Montana JR ([id number]) 1940 [facility] Date Time Provider Department ([id number]) 08/31/19 CELESTINA PIÑA III During your visit [...] - Cough Date Reviewed: 07/03/2019 Reviewed by: Edtia ([facility]) CLIF De Oliveira - Fully Assessed Reason [...] on 2019-07 OBSOLETE Refill (FAMPWS) Normal 07-28-2019 [facility] SHARAN DURAN JR ([id number]) 1940 [facility] Date Time Provider Department (90542) 07/28/19 CELESTINA PIÑA III FAMPWS During your [...] Cough Date Reviewed: 07/03/2019 Reviewed by: Edita ([facility]) CLIF De Oliveira - Fully Assessed Reason [...] PSA, Diagnostic 6.28 0.00-2.59 ng/mL High 07-13-2019 [facility] (57335) Comment: Result Comment: Total PSA te st [...] Med 2003,349:335-42. Performed By: #### PSATF ### #[facility] [address] [place], [place] [phone]- [phone] PSA, Percent Free DO NOT ORDER 25 % Normal 07-13-2019 [facility] FOR SUPERIOR ONLY (0 0000) Comment: Result Comment: Less than 11 % suggestive of prostate cancer. Greater than 23% suggestive of benign condition. Performed By: #### PSATF ### #[facility] [place], [place] [phone]- [phone] cnov on 2019-07-07 CNOV Office Visit (VSLWST) Normal 07-07-20 [place] SHARAN Montana JR ([id number]) 1940 [facility] Date Time Provider Department (00953) 07/07/19 11:00 AM [facility] WSTR VSLWST During your visit [...] III MD Referring Provider: CELESTINA PIÑA III [[id number]] Allergies As of Date: 07/07/2019 Noted Allergy Reaction ACCUPRIL (QUINAPRIL HCL) 07/31/2005 AXID (NIZATIDINE) 07/31/2005 ENTEX PSE (PSEUDOEPHEDRINE-GUAIFE*07/31/2005 LISINOPRIL 11/22/2010 3 - Cough Date Reviewed: 07/03/2019 Reviewed by: Edita ([facility]) CLIF De Oliveira - Fully Assessed Visit Diagnosis:Bruit of left carotid artery [R09.89] Order(s):US CAROTID ARTERIES [facility] [[id number]] Order # : [id number]. #:[id number] Prescriptions as of 07/07/2019 Sig: AMLODIPINE 10 [...] 07/07/19 progress on 2019-06 PROGRESS HNO ID: [id number] Normal 07-03-2019 [facility] Author: Celestina Piña III [place] ([id number]) Service: ? Author Type: Physician Type: Progress [...] Benign essential tremor 07/03/2010 - CAD in [place] artery - CKD (chronic kidney disease) stage 3, GFR 30-59 ml/min (HC C) 03/04/2017 - Diaphragmatic hernia without mention of obstruction or mercy g[facility] Hiatal hernia - Dyslipidemia - Elevated PSA 03/11/2019 - Esophageal reflux Gastroesophageal reflux - Esophagitis, unspecified - Essential hypertension, benign - Family history of malignant neoplasm of gastrointestinal t ract - Hyperlipidemia LDL goal < 100 09/03/2013 - Hyperparathyroidism ([facility]) 03/04/2017 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: 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 - 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 deficiency ([facility]) 2013 - Hyperparathyroidism, primary ([facility]) 05/27/13 - Mild renal insufficiency 10/15/2013 - NSTEMI (non-ST elevated myocardial infarction) ([facility]) 201709/06/14-- stent - Overweight (BMI [...] Father - Arthritis Mother - Heart Father ID * 2 - Prostate Cancer Brother - Hypertension Brother - None Brother Social History Tobacco Use - Smoking status: Former Smoker - Smokeless tobacco: Never Used - Tobacco comment: quit 1975 Substance Use Topics - Alcohol use: Yes Comment: socially - Drug use: No BP 131/69 Pulse (!) 59 Resp 18 Wt 85.7 kg (189 lb) B ID 29.16 kg/m? OBJECTIVE: APPEARANCE Well appearing, alert, in no acute distress, well -hydrated, well nourished. NECK Supple, no adenopathy; thyroid symmetric, normal size, L carotid bruit EXTREMITIES tenderness over thumb extensor tendon. Finkelste in test positive. No tenderness of carpals, full painless flex/ext o f R wrist. 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 ASSESSMENT: tendinitis L thumb L carotid bruit-asymptomatic PLAN: R thumb splint rest R thumb --avoid grasping with palm down advil or aleve as needed for pain may use ice as needed for pain ASA 81 mg daily carotid US DIANNE Gamino MD on 2019-07-03 CNOV Office Visit (FAMPWS) Normal 07-03-20 [facility] ROGERSHARAN JR ([id number]) 1940 M [place] Date Time Provider Department ([id number]) 07/03/19 1:00 PM CELESTINA PIÑA III During [...] Benign essential tremor 07/03/2010 - CAD in [place] artery - CKD (chronic kidney disease) stage 3, GFR 30-59 ml/min (HC C) 03/04/2017 - Diaphragmatic hernia without mention of obstruction or mercy g[place] Hiatal hernia - Dyslipidemia - Elevated PSA 03/11/2019 - Esophageal reflux Gastroesophageal reflux - Esophagitis, unspecified - Essential hypertension, benign - Family history of malignant neoplasm of gastrointestinal t ract - Hyperlipidemia LDL goal < 100 09/03/2013 - Hyperparathyroidism ([facility]) 03/04/2017 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: secondary hyp erparathyroidism--?due to CKD III - 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 deficiency ([facility]) 2013 - Hyperparathyroidism, primary ([facility]) 05/27/13 - Mild renal insufficiency 10/15/2013 - NSTEMI (non-ST elevated myocardial infarction) ([facility]) 201709/06/14-- stent - Overweight (BMI [...] Father - Arthritis Mother - Heart Father ID * 2 - Prostate Cancer Brother - Hypertension Brother - None Brother Social History Tobacco Use - Smoking status: Former Smoker - Smokeless tobacco: Never Used - Tobacco comment: quit 1975 Substance Use Topics - Alcohol use: Yes Comment: socially - Drug use: No BP 131/69 Pulse (!) 59 Resp 18 Wt 85.7 kg (189 lb) B ID 29.16 kg/m? OBJECTIVE: APPEARANCE Well appearing, alert, in no acute distress, we ll-hydrated, well nourished. NECK Supple, no adenopathy; thyroid symmetric, normal size , L carotid bruit EXTREMITIES tenderness over thumb extensor tendo n. Patricia test positive. No tenderness of carpals, full painless flex/ext of R wrist. 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 ASSESSMENT: tendinitis L thumb L carotid bruit-asymptomatic [...] Cough Date Reviewed: 07/03/2019 Reviewed by: Edita ([facility]) CLIF De Oliveira - Fully Assessed Reason for Visit: Right wrist pain [Other] Primary Visit Diagnosis:Tendinitis of thumb [M77.9] Other Visit Diagnosis:Bruit of left carotid artery [R09.89] Order(s):US CAROTID ARTERIES [facility] [[id number]] Order #: [id number] FUTURE Prescriptions as of 07/03/2019 Sig: AMLODIPINE [...] 07/03/19 progress on 2019-06 PROGRESS HNO ID: [id number] Normal 06-22-2019 [facility] Author: Amalia Hanna LPN [place] ([id number]) Service: ? Author Type: ? Type: Progress [...] caffeine use. 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 Alert and oriented. [...] be contacted after review by William fletcher conservation assistant. Amalia Hanna LPN cnnurse on [facility] Nurse Visit (FAMPWS) Normal 9 [place] SHARAN Montana JR ([id number]) 1940 [facility] Date Time Provider Department (62085) 06/22/19 9:15 AM [facility] During your visit today, we recorded the [...] be contacted after review by William fletcher conservation assistant. Amalia Jacques INTENSIVE CARE SPECIALIST Referring Provider: CELESTINA PIÑA III [[id number]] Allergies As of Date: 06/22/2019 Noted Allergy [...] * *Final Report* * * Normal 06-16 [facility] PA/LAT/OBL RT DATE OF EXAM: Jun 16 2019 2:24PM [place] WOX 5271 - XR WRIST 3V PA/LAT/OBL RT / ([id number]) PROCEDURE REASON: Right wrist pain * * [...] y destruction. IMPRESSION: Carpal cyst, otherwise unremarkable. 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: PSCB Transcribe Date/Time: Jun 16 2019 2:31P Dictated by : VICKY EM MD This examination was interpreted and the report reviewed and electronically signed by: VICKY EM MD on Jun 16 2019 2:33PM EST [id number] progress on 2019-06 PROGRESS HNO ID: [id number] Normal 06-16-2019 [facility] Author: Mari Newman (Rt) Chucky Funez ([id number]) Service: ? Author Type: Metalizer Type: Progress Notes Filed: 06/16/2019 2:24 PM Note Text: Radiology Service Progress Note PATIENT NAME: hSaran Duran JR DATE OF SERVICE: June 16, [...] 16, 2019 2:24 PM PROGRESS HNO ID: [id number] Normal 06-16-2019 [facility] Author: Suleman Alves) Brianna Bill ([id number]) Service: ? Author Type: Physician Birth Attendant Type: Progress Notes Filed: 06/16/2019 4:47 PM [...] Benign essential tremor 07/03/2010 - CAD in [place] artery - CKD (chronic kidney disease) stage 3, GFR 30-59 ml/min (HC C) 03/04/2017 - Diaphragmatic hernia without mention of obstruction or mercy grene Hiatal hernia - Dyslipidemia - Elevated PSA 03/11/2019 - Esophageal reflux Gastroesophageal reflux - Esophagitis, unspecified - Essential hypertension, benign - Family history of malignant neoplasm of gastrointestinal t ract - Hyperlipidemia LDL goal < 100 09/03/2013 - Hyperparathyroidism ([facility]) 03/04/2017 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: 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 - 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 deficiency ([facility]) 2013 - Hyperparathyroidism, primary ([facility]) 05/27/13 - Mild renal insufficiency 10/15/2013 - NSTEMI (non-ST elevated myocardial infarction) ([facility]) 201709/06/14-- stent - Overweight (BMI [...] 2019-06-16 CNOV Office Visit (UCWSTR) Normal 06-16-20 [facility] SHARAN DURAN JR ([id number]) 1940 [facility] Date Time Provider Department ([id number]) 06/16/19 2:00 PM SULEMAN REED (JONNA) WSTR [...] Benign essential tremor 07/03/2010 - CAD in [place] artery - CKD (chronic kidney disease) stage [...] - 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 deficiency ([facility]) 2013 - Hyperparathyroidism, primary ([facility]) 05/27/13 - Mild renal insufficiency 10/15/2013 - NSTEMI (non-ST elevated myocardial infarction) ([facility]) 201709/06/14-- stent - Overweight (BMI [...] [M25.531] Order(s):XR WRIST GENERAL 3V PA/LAT/OBL RT [[id number]] Order #: [id number] FUTURE methylPREDNISolone (MEDROL, JESSICA,) 4 mg Dose-PackFollow [...] on 2019-05-18 CNPN Telephone (FAMPWS) Normal 05-18-2019 [place] SHARAN Montana ([id number]) 1940 [facility] Date Time Provider Department (69958) 05/18/19 CELESTINA PIÑA III During your visit [...] 2018-12-23 XR HAND MINIMUM ORIGINAL Normal 12-23-2018 [facility] 3 VIEWS RIGHT XR HAND MINIMUM 3 VIEWS RIGHT [facility] ([place]) (68001) CLINICAL STATEMENT: eval DIP rt index finger [...] conc 9.7 8.4-10.1 mg/dL Normal 11-10-2018 [facility] ([place]) (63975) Comment: Performed By: #### GFR, BMP #### [address] [address] Chloride molar conc 108 98-110 mEq/L Normal 11-10-2018 [facility] ([place]) (31840) Comment: Performed By: #### GFR, BMP #### [address] [address] CO2 molar conc 26 22-32 mEq/L Normal 11-10-2018 [facility] ([place]) (57155) Comment: Performed By: #### GFR, BMP #### [address] [address] Creatinine mass conc 1.82 0.60-1.40 mg/dL High 9 [facility] ([place]) (0000 0) Comment: Performed By: #### GFR, BMP #### [address] [address] Electrolyte Balance 8.0 4.0-15.0 mEq/L Normal 11-10-2018 [facility] ([place]) (0000 0) Comment: Performed By: #### GFR, BMP #### [address] [address] Glucose mass conc 91 82-115 mg/dL Normal 11-10-2018 [facility] ([place]) (29915) Comment: Performed By: #### GFR, BMP #### [address] [address] Potassium molar conc 5.1 3.5-5.0 mEq/L High 9 [facility] ([place]) (50916) Comment: Performed By: #### GFR, BMP #### [place] [id number] Sodium molar conc 142 136-145 mEq/L Normal 11-10-2018 [facility] ([place]) (34900) Comment: Performed By: #### GFR, BMP #### [place] [address] Urea nitrogen mass conc 52.0 8.0-22.0 mg/dL High 2018 [facility] ([place]) (0000 0) Comment: Performed By: #### GFR, BMP #### [address] [address] Urea nitrogen/Creatinine mass 28.6 10.0-22.0 ratio High 11-10-2018 [facility] ([place]) (00495) Comment: Performed By: #### GFR, BMP #### [address] [address] .gfr on 2018-11-10 GFR Non- 36 ml/min/1.73sqm Normal 11-10-2018 [facility] ([place]) (25033) Comment: Result Comment: GFR Population mean for Afri can [place], Non- Americans Ages 20-29 = 116 mL/min/1.73 [...] meters Performed By: #### GFR, BMP #### [address] [address] GFR 44 ml/min/1.73sqm Normal 04-0 [facility] ([place]) (0000 0) Comment: Result Comment: GFR Population mean for Afri can [place], Non- Americans Ages 20-29 = 116 mL/min/1.73 [...] meters Performed By: #### GFR, BMP #### [address] [address] bmp on 2018-11-06 Creatinine mass conc 1.85 0.60-1.40 mg/dL High 9 [facility] ([place]) (0000 0) Comment: Performed By: #### BMP, GFR #### [address] [address] Urea nitrogen/Creatinine mass 28.1 10.0-22.0 ratio High 11-06-2018 [facility] ([place]) (08132) Comment: Performed By: #### BMP, GFR #### [address] [address] Calcium mass conc 9.4 8.4-10.1 mg/dL Normal 11-06-2018 [facility] ([place]) (90243) Comment: Performed By: #### BMP, GFR #### [address] [address] Chloride molar conc 111 98-110 mEq/L High 11-06-2018 [facility] ([place]) (88292) Comment: Performed By: #### BMP, GFR #### [address] [address] CO2 molar conc 26 22-32 mEq/L Normal 11-06-2018 [facility] ([place]) (52530) Comment: Performed By: #### BMP, GFR #### [address] [address] Electrolyte Balance 6.0 4.0-15.0 mEq/L Normal 11-06-2018 [facility] ([place]) (0000 0) Comment: Performed By: #### BMP, GFR #### [address] [address] Glucose mass conc 86 82-115 mg/dL Normal 11-06-2018 [facility] ([place]) (48431) Comment: Performed By: #### BMP, GFR #### [address] [address] Potassium molar conc 5.0 3.5-5.0 mEq/L Normal 9 [facility] ([place]) (0000 0) Comment: Performed By: #### BMP, GFR #### [address] [address] Sodium molar conc 143 136-145 mEq/L Normal 11-06-2018 [facility] ([place]) (95215) Comment: Performed By: #### BMP, GFR #### [address] [address] Urea nitrogen mass conc 52.0 8.0-22.0 mg/dL High 2018 [facility] ([place]) (0000 0) Comment: Performed By: #### BMP, GFR #### [address] [address] .gfr on 2018-11-06 GFR 43 ml/min/1.73sqm Normal - [facility] ([place]) (0000 0) Comment: Result Comment: GFR Population mean for Afri can [place], Non- Americans Ages 20-29 = 116 mL/min/1.73 [...] meters Performed By: #### BMP, GFR #### [address] [address] GFR Non- 36 ml/min/1.73sqm Normal 11-06-2018 [facility] ([place]) (30283) Comment: Result Comment: GFR Population mean for Afri can [place], Non- Americans Ages 20-29 = 116 mL/min/1.73 [...] meters Performed By: #### BMP, GFR #### [address] [address] xr hand minimum 3 views right on 2018-10-31 XR HAND MINIMUM 3 ORIGINAL Normal 10-31-2018 A [facility] VIEWS RIGHT XR HAND MINIMUM 3 VIEWS [facility] ([place]) (76892) CLINICAL STATEMENT: pain , table saw injury [...] INTACT PTH 229.7 14.0-72.0 pg/mL High 07-09-2018 [facility] (00 000) Comment: Performed By: #### CAC ####[place] [address]#### I PTH, D25OH ####[place] [address] [place] [address] 25-oh vitamin d total on 2018-07-09 25-OH Vitamin D Total 56.1 30.0-100.0 ng/mL Normal 07-09- 018 [facility] (44906) Comment: Result Comment: <10 Deficien cy10-29 [id number] Optimal Level>100 Possible Toxicity Performed By: #### CAC ####W [place] [address]#### I PTH, D25OH ####[place] [address] [place] [address] [address] us thyroid on 07-08 US THYROID EXAM: US THYROID, 07/08/2018 Normal 07-08-2018 [facility] 08:50 AMCLINICAL INDICATIONS: [facility] thyroid ugtvlmC08.1:[facility] nodule COMPARISON: Ultrasound (85968) thyroid 10/11/2016.TECHNIQUE: Real-time, grayscale ultrasound evaluation of [...] for tissuesampling.* Lesions are classified using the [place] Thyroid Association guidelines [id number]. (Thyroid, Volume 26, #1, 2016) calcium - [address]ajuan rd lab on 2018-07-08 Calcium mass conc 10.1 8.6-10.5 mg/dL Normal 07-08-2018 [facility] nter (46159) Comment: Performed By: #### CAC ####[place] [address] [address] [address]#### I PTH, D25OH ####[facility] [place], [place] [address] [place], [place] [address] No panel information on 2018-07-08 EXAM: US [...] sampling. * Lesions are classified using the [place] Thyroid Association guidelines of 2015. (Thyroid, Volume 26, #1, 2016) ESSION: Multiple Invalid Interpretat ion Code 07-08-2018 RADIOLOGY subcentimeter thyroid nodules present bilaterally, overall similar in appearance to prior exam. None of these meet size criteria for tissue sampling. * Lesions are classified using the [place] Thyroid Association guidelines of 2015. (Thyroid, Volume 26, #1, 2016) Encounters Date Type Reason Provider Location 05-02-2020 - Patient encounter Patient encounter Edita Chen [facility] 05-02-2020 procedure status [email or web address] Comment: Population Health Navigation Outreach ([facility] project) 07-08-2018 Patient encounter ELOY VERDUGO [place] [facility] (94978) 07-08-2018 - Patient encounter Thyroid nodule Eloy Najera nd Steven 07-08-2018 procedure Other Other Other Other Comment: Arrived 07-08-2018 Patient encounter [facility] [place] [facility] ([address]) 07-08-2018 [facility] Marco Antonio [facility] [place] ate procedure thyroid nodule [facility] xner [facility] (66245) 04-19-2020 - Refill [facility] Medicin e 04-19-2020 [place] Comment: Refill Request Procedures Procedure Name Date Provider Location US scan of neck 07-08-2018 - 07-08-2018 [facility] Marco Antonio [facility] ( [address]63) Colonoscopy 12-27-2013 - 12-27-2013 Jessy brink [facility] (89807) Plan of Treatment Plan Description Date Location DTAP,TDAP,TD (4 - Td) DTAP,TDAP,TD (4 - Td) 11-01-2028 - [facility] 11-01-2028 (63843) LIPID SCREEN LIPID SCREEN 09-24-2024 - [facility] 09-24-2024 (95193) DIABETES SCREEN DIABETES SCREEN 02-28-2023 - [facility] 02-28-2023 (73123) SERUM CREATININE SERUM CREATININE 02-28-2021 - [facility] 02-28-2021 (34167) ANNUAL PCP TEAM CHRONIC ANNUAL PCP TEAM CHRONIC 11-04-2020 - [facility] DISEASE VISIT DISEASE VISIT 11-04-2020 (99610) HEMOGLOBIN/HEMATOCRIT HEMOGLOBIN/HEMATOCRIT 11-04-2020 - [facility] 11-04-2020 (34564) LDL CHOLESTEROL LDL CHOLESTEROL 09-24-2020 - [facility] 09-24-2020 (13544) INFLUENZA (#1) INFLUENZA (#1) 2020 - [facility] 04-12-2020 (58563) BP CONTROLLED (<130/80) BP CONTROLLED (<130/80) 03-09-2020 - [facility] 03-09-2020 ([id number]) ADVANCE DIRECTIVE ADVANCE DIRECTIVE 09-21-2019 - [facility] DISCUSSION DISCUSSION 09-21-2019 ([id number]) COLONOSCOPY COLONOSCOPY 12-27-2018 - [facility] 12-27-2018 ([id number]) POTASSIUM POTASSIUM 10-11-2017 - [place] 10-11-2017 [facility] ([id number]) PNEUMOCOCCAL VACCINE PNEUMOCOCCAL VACCINE 2006 - [facility] lloyd SERIES (1 of 2 - PCV13) SERIES (1 of 2 - PCV13) 2006 [facility] ([id number]) COLON CANCER SCREENING COLON CANCER SCREENING 12-11-1991 - [facility] DISCUSSION DISCUSSION 12-11-1991 [facility] ([id number]) SHINGRIX VACCINE (1 of SHINGRIX VACCINE (1 of 12-11-1991 - [facility] 2) 2) 12-11-1991 ([id number]) TDAP (ADULT) TDAP (ADULT) 1960 - [facility] 1960 [facility] ([id number]) HEPATITIS C SCREENING HEPATITIS C SCREENING 12-11-1959 - [facility] 12-11-1959 ([id number]) TETANUS TETANUS 12-11-1959 - [facility] 12-11-1959 [facility] ([id number]) COLONOSCOPY SCRN NOT COLONOSCOPY SCRN NOT 05-02-2021 [facility] HIGH RISK HIGH RISK Endoscopy ([id number]) Routine Screening for malignant neoplasm of colon 1 Occurrences starting 05/02/2020 until 05/02/2021 Comment: 1 Occurrences starting 05/02 until 05/02/2021 PRE-PROCEDURE & PRE-PROCEDURE & 05-02-2021 [facility] PRE-OPERATIVE COVID PRE-OPERATIVE COVID ([id number]) Microbiology Routine Screening for malignant neoplasm of colon 1 Occurrences starting 05/02/2020 until 05/02/2021 Comment: 1 Occurrences starting 05/02 until 05/02/2021 no information [facility] ([id number]) Immunizations Vaccine Notes Status Date Location DT(PEDIATRIC) diphtheria and tetanus (completed) 06-24-2000 - [facility] toxoids, adsorbed for 06-24-2000 (77047 ) pediatric use Influenza Vaccine, influenza virus (completed) 07-01-2013 - [facility] Split-Non Spec vaccine, unspecified 07-01-2013 ([id number]) formulation Influenza Vaccine, influenza virus (completed) 05-23-2012 - [facility] Split-Non Spec vaccine, unspecified 05-23-2012 ([id number]) formulation Influenza Vaccine, influenza virus (completed) 07-31-2011 - [facility]-Non Spec vaccine, unspecified 07-31-2011 ([id number] 5) formulation Influenza Vaccine, influenza virus (completed) 06-29-2009 - [facility] Split-Non Spec vaccine, unspecified 06-29-2009 ([id number] 5) formulation Influenza Vaccine, influenza virus (completed) 06-26-2006 - [facility] Whole vaccine, whole virus 06-26-2006 ([id number]) Influenza Vaccine, influenza virus (completed) 08-01-2005 - [facility] Whole vaccine, whole virus 08-01-2005 ([id number]) Influenza Seasonal influenza, high dose (completed) 05-29-2019 - [facility] - High Dose - Age seasonal, 05-29-2019 ([id number]) 65+ preservative-free Influenza Seasonal influenza, high dose (completed) 05-08-2018 - [facility] - High Dose - Age seasonal, 05-08-2018 ([id number]) 65+ preservative-free Influenza Seasonal influenza, high dose (completed) 05-30-2017 - [facility] - High Dose - Age seasonal, 05-30-2017 ([id number]) 65+ preservative-free Influenza Seasonal influenza, high dose (completed) 05-21-2016 - [facility] - High Dose - Age seasonal, 05-21-2016 (40371) 65+ preservative-free Pneumococcal-13 Vac pneumococcal conjugate (completed) 12-24-2014 - [facility] Conjugate vaccine, 13 valent 12-24-2014 ([id number]) Pneumovax pneumococcal (completed) 03-04-2017 - [facility] polysaccharide vaccine, 03-04-2017 (441 [id number]) 23 valent Pneumovax pneumococcal (completed) 08-01-2005 - [facility] polysaccharide vaccine, 08-01-2005 (441 [id number]) 23 valent TD Adult tetanus and diphtheria (completed) 03-13-2012 - [facility] toxoids, adsorbed, 03-13-2012 (00577) preservative free, for adult use (2 Lf of tetanus toxoid and 2 Lf of diphtheria toxoid) Payers Payer Name Policy Number Location AARP [id number] [facility] ([id number]) MEDICARE A AND B [id number] [facility] ([id number]) [facility] MEDICARE [id number] [facility] (44 195) [id number] [facility] ([id number]) [id number] [facility] ([id number]) [id number] [facility] ([id number]) The following information is from the original human readable contentNo Payer Records FoundNo Payer Records FoundNo Payer Records FoundNo Payer Records FoundNo Payer Records Found Social History Type Social History Date Location Description Tobacco smoking status Former smoker 07-08-2018 - [facility] NHIS 11-05-2019 [facility] ( [id number]) History of tobacco use Current smoker 08-12-1975 [facility] ( 96655) History of tobacco use Cigarette Smoker 08-12-1975 [facility] ( 56372) Sex Assigned At Not on file [facility] ( 72790) Tobacco use and Never used 11-05-2019 - [facility] exposure 11-05-2019 (84827) Alcohol intake Current drinker of 11-05-2019 [facility] alcohol (finding) 11-05-2019 (65799) The following information is from the original [...] US THYROID US NECK [address] [place] [address] [facility] [place] [address] Assessments Diagnosis Thyroid nodule Nontoxic uninodular goiter Diagnosis Screening for malignant neoplasm of colo n - Primary Summary Purpose Family History No Family History Records FoundNo Family History Records FoundNo Family History Records FoundNo Family History Records Found Advance Directives No Advanced Directives Records Found Documents on File Type Date Recorded 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 Piña please sign pended order Contact made with patient? NO Pt identified by name and : NO Outreach Outcome/Action MyChart message sent Reason for Outreach Care Gap Payer: Payor: [facility] MEDICARE / Plan: UHC AARP MEDICARE HMO [...] BE BASED ON THE PRIMARY CLINICAL RECORDS. [facility] provides no warranty or guarantee of the accuracy or completeness of information in this document. UNRECOGNIZED CONTENT PROVIDED BELOW FOR UNRECOGNIZED SECTION Reason for Visit Status Reason Specialty Diagnoses / Referred By Referred To Procedures Contact Contact New Request Diagnoses Thyroid nodule Eloy Verdugo MD Procedures US THYROID US NECK [address] [place] [address] [facility] [place] [address] Reason Onset Date Comments Refill Request 04/19/2020 Reason Onset Date Comments Population Health Navigation Outreach 05/02/2020 [facility] project UNRECOGNIZED CONTENT PROVIDED BELOW FOR UNRECOGNIZED SECTION No Status Records FoundNo Status Records FoundNo Status Records FoundNo Status Records Found UNRECOGNIZED CONTENT PROVIDED BELOW FOR UNRECOGNIZED SECTION INFORMATION SOURCE DATE CREATED AUTHOR AUTHOR'S ORGANIZATIO N 07/21/2018 [facility] DATE CREATED AUTHOR AUTHOR'S ORGANIZATIO N 01/03/2019 [facility]) DATE CREATED AUTHOR AUTHOR'S ORGANIZATIO N 10/06/2019 [facility] DATE CREATED AUTHOR AUTHOR'S ORGANIZATIO N 05/04/2020 [facility] UNRECOGNIZED CONTENT PROVIDED BELOW FOR UNRECOGNIZED SECTION Source Comments In the event this information is protected by the Federal Confidentiality of Alcohol and Drug Abuse Patient Records regulations: The Federal rules restrict any use of the information to criminally investigate or prosecute any alcohol or drug abuse patient.[facility] the event this information is protected by the Federal Confidentiality of Alcohol and Drug Abuse Patient Records regulations: The Federal rules restrict any use of the information to criminally investigate or prosecute any alcohol or drug abuse patient.[facility] UNRECOGNIZED CONTENT PROVIDED BELOW FOR UNRECOGNIZED [...]
== END 2020-01-12 12:47 | disposition home or self-care (01) ==
LOC: ED 12:16
PROVIDERS: Emergency Provider Emergency Medicine; PCP Family Medicine
DX: M54.5 Low back pain (principal); M25.551 Pain in right hip; M54.10 Radiculopathy, site unspecified; I25.10 Atherosclerotic heart disease of native coronary artery without angina pectoris; I10 Essential (primary) hypertension; E78.5 Hyperlipidemia, unspecified; Z79.899 Other long term (current) drug therapy; Z87.891 Personal history of nicotine dependence
CPT/HCPCS: 72100; 73502; 99284

== ENCOUNTER 2021-01-20 08:51 | Day surgery (SDC) | payer MEDICARE, SELFPAY ==
[2020-11-24 14:35] VITALS: BMI 27.8
[2020-12-28 09:42] VITALS: BMI 27.8
--- NOTE | 2021-01-13 13:30 | EKG12_ITS ---
Test Reason : PREOP Blood Pressure : / mmHG Vent. Rate : 059 BPM Atrial Rate : 059 BPM P-R Int : 186 ms QRS Dur : 160 ms QT Int : 452 ms P-R-T Axes : 035 -39 017 degrees QTc Int : 447 ms Sinus bradycardia with occasional Premature ventricular complexes Left axis deviation Right bundle branch block Abnormal ECG Confirmed by AZIZA WATT, LELE ([id number]), scientific editor ANAHI LOO ([id number]) on 01/17/2021 10:21:23 AM Referred By: Jc Piña Confirmed By:LELE ERVIN MD
[2021-01-13 14:41] LABS: Hematocrit 33.2 % (40-54); Hemoglobin 10.6 g/dL (13.0-16.5); Mean Corp Hgb Conc 31.9 g/dL (32-36); Mean Corpuscular Hgb 29.5 pg (27.0-32.0); Mean Corpuscular Volume 92.5 fL (80-94); Mean Platelet Vol. 11.6 fl (6.2-12.0); Platelet Count 173 K/mm3 (150-450); RBC Distribution Width CV 13.4 % (11.6-14.6); RBC Distribution Width SD 45.8 fl (35.1-43.9); Red Blood Count 3.59 M/mm3 (4.6-6.2); White Blood Count 7.1 K/mm3 (4.4-11.0)
[2021-01-13 15:02] LABS: Anion Gap 6 (5-15); BUN 59 mg/dL (7-18); BUN/Creat Ratio 18.5 RATIO (10-20); Calcium,Total 10.7 mg/dL (8.5-10.1); Chloride 104 mmol/L (98-107); Creatinine, Serum 3.19 mg/dL (0.70-1.30); EST Glomerular Filtration Rate 20 mL/min (>60); Est Glom Filt Rate - Afr Amer 24 mL/min (>60); Glucose 118 mg/dL (74-106); Potassium 3.9 mmol/L (3.5-5.1); Sodium Level 139 mmol/L (136-145)
[2021-01-20] VITALS (9 sets, daily range): BP systolic 113–151; BP diastolic 56–82; PULSE 54–86; RESP 16; TEMP 36.4–36.8; O2SAT 93–96; BMI 27.4
--- NOTE | 2021-01-20 | HERN_PTH ---
PATIENT: LUIS MANUEL CASTILLO Jr. LOC: [facility] U#:[id number] AGE/SX: 80/M ROOM: RE01/20/[address]: Dr. Jc Piña MD : [id number] BED: DIS: 01/20/2021 SPEC #: [id number] RECD: 01/20/21 12:52 STATUS: ANSON REMandy #: [id number] TAN: 01/20/21 00:[address]: Jc Piña DEPT: SURGICAL PATHOLOGY RECD BY: Clint Santana ENTERED: 01/23/21 09:49 SP TYPE: Hernia OTHR DR: Dr. Julio Licea MD Tissues: HERNIA Procedures: Surgery Specimen Level II HEADER OPERATION: Ventral incisional hernia with mesh PRE-OP DIAGNOSIS: Ventral incisional hernia TISSUE SUBMITTED: Ventral incisional hernia and content MICROSCOPIC DIAGNOSIS Soft tissue of ventral abdomen, excision: Hernia sac with mild fibrosis and minimal chronic inflammation. AM:remi 01/24/2021 MICROSCOPIC DESCRIPTION Slides are reviewed. GROSS DESCRIPTION Received in fixative is one container labeled with the patient's name and designated incisional hernia sac and contents. The specimen consists of an irregular piece of soft tissue measuring 5 x 2.5 x 1 cm. Sections do not reveal any mass lesion. Supervisor Color Paste Mixing sections are submitted in one cassette. / SJ:remi 01/23/21 TC:5 [facility]: [id number]
[2021-01-20] MEDS: Lactated Ringers 1,000 ML 100 ML IV (09:44)
--- NOTE | 2021-01-20 10:44 | PCM.HP.BLA ---
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 Required: No Accompanied by: Self Is patient in pain?: No Allergies lisinopril Adverse Reaction (Verified 12/28/20 09:40) Other Medications hydrochlorothiazide 25 mg PO DAILY 09/04/14 [History Confirmed 12/28/20] aspirin 81 mg tablet,delayed release 81 mg PO DAILY 04/29/18 [History Confirmed 12/28/20] metoprolol tartrate 25 mg tablet 25 mg PO BID 10/27/19 [History Confirmed 12/28/20] cholecalciferol (vitamin D3) 4,000 unit PO DAILY 12/18/19 [History Confirmed 12/28/20] nitroglycerin 0.4 mg SL X1 PRN 01/12/20 [History Confirmed 12/28/20] amlodipine 10 mg tablet 10 mg PO DAILY tablet 11/24/20 [History Confirmed 12/28/20] atorvastatin 40 mg tablet 40 mg PO DAILY tablet 11/24/20 [History Confirmed 12/28/20] tamsulosin 0.4 mg capsule 0.4 mg PO DAILY cap 11/24/20 [History Confirmed 12/28/20] omega-3 fatty acids 1,000 mg capsule 1,000 mg PO DAILY 12/28/20 [History Confirmed 12/28/20] PFSH Medical History Anemia CAD (coronary artery disease), [place]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 CKD (chronic kidney disease) stage 3, GFR 30-59 ml/min Dyslipidemia Esophageal reflux Hiatal hernia History of heart attack Hyperparathyroidism Hypertension Mild renal insufficiency Osteopenia determined by x-ray Recurrent inguinal hernia Recurrent inguinal hernia of right side without obstruction or gangrene Screening for intestinal cancer TIA (transient ischemic attack) Ventral incisional hernia without obstruction or gangrene Surgical History Hx of bilateral inguinal hernia repair Hx of heart artery stent Hx of parathyroidectomy Family History Mother Colon cancer Father Colon cancer Myocardial infarction Brother Cancer Social History Smoking Status: Former smoker second hand exposure: No alcohol intake: current alcohol intake frequency: a few times a month substance use type: does not use caffeine: Yes what type of physical activity do you participate in: none seatbelt use: always HPI HPI HPI: LUIS MANUEL CASTILLO, is a 80 M who presents to the office today for an update history and physical for an elective ventral incisional hernia repair. Patient denies recent hospitalizations or illnesses since his last visit in November. He notes some discomfort/pain at the hernia site with lifting. He notes slightly most constipation with calcium supplement. He is currently taking a stool softener as needed. He notes being referred to a water resources project manager due to declining renal function. He is to see Dr. Zayas in March. He notes a previous myocardial infarction in 2014. He has 1 cardiac stent. He follows with a case supervisor out of [place] who has provided cardiac clearance for this patient. Patient denies any previous side effects or complications with anesthesia. Patient's previous history per Dr. Piña: LUIS MANUEL CASTILLO, is a 79 M who presents to the office today for surgical consultation regarding a ventral hernia. 2014 he had myocardial infarction. Would have been December 21, 2020 I did a colonoscopy for him showing internal and external hemorrhoids, diverticulosis, no evidence for acute disease. Additional information includes at the [facility] on July 07, 2019 a carotid duplex exam demonstrating 20 to 39% stenosis bilateral internal carotids. The patient thinks for perhaps 4 months he has had this hernia. He is still able to reduce it. Been no change in bowel habits. He denies chest pain or palpitations or shortness of breath. He has not been exposed to COVID-19 to which he is aware ROS General General: No weight change, appetite, fatigue, colon cancer, breast cancer or weakness HEENT HEENT: No difficulty swallowing, eye injury, eye surgery, swollen glands or hoarseness Endo Endocrine: No thyroid disease, diabetes mellitus, thyroid cancer, Hair loss, heat intolerance or cold intolerance Skin Skin: No rash or changing moles Musc Musculoskeletal: Yes joint pain; No back problems, arthritis, rheumatoid arthritis or gout Cardio Cardiovascular: Yes high blood pressure, heart attack and heart stent; No murmur, pacemaker, heart disease, atrial fibrillation, palpitations, shortness of breat with exertion or chest pain Psych Psychiatric: No depression, anxiety or hearing voices Resp Respiratory: No shortness of breath, No sleep apnea, No cough, No COPD, No asthma, No emphysema and No wheezing Gastro Gastrointestinal: No abdominal pain, No nausea or vomiting, No diarrhea, No constipation, No blood in stool, Yes acid reflux, No hemorrhoids, No ulcers, No gallbladder problem and No black,tarry stools Marcin Hematologic: No blood thinners, No blood disorders, No bleeding, No anemia and No blood clots Neuro Neurologic: No weakness Exam Const General: cooperative, healthy appearing, comfortable and no acute distress HENMT Head: normal to inspection Eyes General: appearance normal, both eyes and all related structures Neck Neck: normal visual inspection Neck mass: No Resp Effort & Inspection: normal respiratory effort Auscultation: clear to auscultation bilaterally Cardio Rate: regular rate Rhythm: regular rhythm GI Inspection: normal to inspection Palpation: hernia (ventral incisional hernia palpated and reducible) Percussion: normal to percussion Auscultation: normal bowel sounds Skin General: no rashes or lesions noted Neuro General: no focal motor deficits and CN's II-XI intact bilaterally Extrem General: normal to inspection Psych Appearance: grossly normal Affect: normal affect Assessment and Plan Assessment and Plan (1) Ventral incisional hernia without obstruction or gangrene: Status: Acute Plan - Kaley COYLE, PADonnaC: Dr. Piña will plan to perform a small ventral incisional hernia repair with mesh. Procedure details, risks and benefits have been reviewed. Patient has had the opportunity to ask and have questions answered. Patient verbally understands and agrees with the plan. Post-operative instructions for hernia were provided. I have asked the patient to stop his aspirin and fish oil 5 days prior to the procedure. He has had both COVD vaccinations approximately 1 month ago. I have re-examined the patient. There are no clinical changes since date of exam. Jc Piña M.D., F.A.C.S.
[2021-01-20] MEDS: Cefazolin 2 GM in 0.9% Normal Saline 100 ML IV (10:55)
--- NOTE | 2021-01-20 11:03 | EX.PCM.DISCH ---
Discharge Instructions Procedure General Surgery Diet Discharge Diet: Light diet - advance as tolerated (if you have questions about your diet instructions, please talk to you doctor.) Activity Discharge Activity: May Not Drive (for 3-5 days or while taking narcotic pain medicine.) May shower in (days): 1 Lifting Restrictions: 10 pounds Dressing / Incision Call your doctor if your incision/area has: Continuous Slow Oozing, Sudden Increased Bleeding, Increased Pain/ Swelling, Increased Redness and Foul Smelling Discharge Call your doctor if you observe: Fever of 101 or Higher Suture Line Care: Avoid Pulling/Pushing and Avoid Pinching/Bending Additional Dressing/Incision Instructions:: Change or remove dressing in 4 days. Leave steri-strips in place for 1 week. Follow Up Care Please Follow Up With: Jc Piña MD When: Call [phone] to make an appointment to be seen in about 10 days. Test Results: Test results from this visit will be discussed in further detail at your follow-up appointment, if applicable. Discharge Plan Admission Primary Reason for Your Visit: Incarcerated ventral incisional hernia Attending Provider: Jc Piña Primary Care Provider: Julio Licea Discharge Orders/Prescriptions Prescriptions: New hydrocodone-acetaminophen 5-325 mg tablet 1 tab PO Q8H PRN (Reason: pain) 2 Days Qty: 5 RF: 0 Continued aspirin [Adult Low Dose Aspirin] 81 mg tablet,delayed release (DR/EC) 81 mg PO DAILY RF: 0 metoprolol tartrate 25 mg tablet 25 mg PO BID RF: 0 atorvastatin 40 mg tablet 40 mg PO DAILY RF: 0 tamsulosin 0.4 mg capsule 0.4 mg PO DAILY RF: 0 amlodipine 10 mg tablet 10 mg PO DAILY RF: 0 omega-3 fatty acids [Fish Oil Concentrate] 1,000 mg capsule 1,000 mg PO DAILY RF: 0 hydrochlorothiazide 25 MG tablet 25 mg PO DAILY RF: 0 cholecalciferol (vitamin D3) 2,000 UNIT capsule 4,000 unit PO DAILY RF: 0 nitroglycerin 0.4 MG tablet, sublingual 0.4 mg SL X1 PRN (Reason: CHEST PAIN) RF: 0 Referrals / Follow Up: Julio Licea MD [Primary Care Provider] -
[2021-01-20] MEDS: Bupivacaine Mpf 0.5% 30 ML VIAL (11:16)
--- NOTE | 2021-01-20 11:57 | PCM.OPRPT ---
Problems Associated Problem List Diagnoses (1) Ventral incisional hernia without obstruction or gangrene: Report of Operation Date of Procedure: 01/20/21 Pre-Operative Diagnosis: Symptomatic incarcerated supraumbilical ventral incisional hernia Post-Operative Diagnosis: Same Surgery/Procedure Performed:: Ventral incisional herniorrhaphy with 8 cm Ventralex mesh Ventralex ST 8 cm diameter. Reference [id number] Lot [id number] Expiry date 07/09/2022 Description of Surgical Findings:: Timeout and informed consent was obtained. 80-year-old gentleman was taken to the operating placed on the table underwent general endotracheal intubation esthesia. Ancef 2 g were given intravenously. The abdomen sterilely prepped and draped. 0.5% Marcaine was used as a local anesthetic. Throughout the procedure total 30 cc was used. A curvilinear incision was made the superior portion of the umbilicus. Sharp dissection carried down through the subtenons tissue. Evidence of previous suture from a previous umbilical herniorrhaphy was identified. There was preperitoneal fibrofatty tissue protruding incarcerated within the hernial defect. That tissue was dissected free. The sac and contents were amputated with electrocautery. The fascial edges were identified and the defect was approximately 3-1/2 cm to 4 cm in diameter. The peritoneum was then dissected free from the fascia to create a retrorectus space. The peritoneum was then approximated with a running 3-0 Vicryl. The 8 cm Ventralex mesh was placed in the retrorectus space and the tails were secured with interrupted 0 Nurolon. The fascia was approximated transversely with the same incorporation of a portion of the mesh with each bite. There was excellent positioning of the leg of the mesh. Having placed all the sutures they were now tied and secured closed with excellent closure and good approximation. A interrupted 3-0 Vicryl was used to close the subcutaneous space. The skin edges were approximated a running septic or 4-0 Monocryl. Steri-Strips Telfa OpSite dressings applied. Sponge and instrument and needle counts were reported the surgeon to be correct. Specimens hernia sac contents. Blood loss minimal. Drains none. The patient was taken to the recovery area in satisfactory addition without apparent complication Jc Piña M.D., F.A.C.S. Surgeon: Jc Piña Type of Anesthesia: General and Local
== END 2021-01-20 16:35 ==
LOC: SDC 08:53 → AC 10:30
PROVIDERS: PCP Family Medicine; Referring Provider Surgery; Visit Provider Surgery
PROC: (CPT 49566; principal; 2021-01-20 10:45)
DX: K43.0 Incisional hernia with obstruction, without gangrene (principal); I12.9 Hypertensive chronic kidney disease with stage 1 through stage 4 chronic kidney disease, or unspecified chronic kidney disease; N18.30 Chronic kidney disease, stage 3 unspecified; I25.10 Atherosclerotic heart disease of native coronary artery without angina pectoris; E78.5 Hyperlipidemia, unspecified; K21.9 Gastro-esophageal reflux disease without esophagitis; Z79.82 Long term (current) use of aspirin; Z79.899 Other long term (current) drug therapy; I25.2 Old myocardial infarction; Z86.73 Personal history of transient ischemic attack (TIA), and cerebral infarction without residual deficits; Z87.891 Personal history of nicotine dependence; Z95.5 Presence of coronary angioplasty implant and graft
CPT/HCPCS: 49566; 49568; 36415; 80048; 85027; 88302; 93005; J7120; C1781; J2405

== ENCOUNTER 2021-11-22 13:26 | Outpatient (CLI) | payer MEDICARE, SELFPAY ==
--- NOTE | 2021-11-22 13:29 | STEWCON_ITS ---
Reason For Study: Dyspnea Stress Results Protocol: Dobutamine Stress Echo With Definity Maximum Predicted HR: 141 bpm Target HR: 120 bpm % Maximum Predicted HR: 87 % DurationHeart Rate Stage (mm:ss) (bpm) BP Comment Baseline 59 140/81No Chest Pain; 5 ML Diluted Definity Given DSE 10 MCG 4:06 58 142/71No Chest Pain DSE 20 MCG 3:00 61 152/68No Chest Pain DSE 30 MCG 3:33 111 156/64No Chest Pain; Atropine 0.25 MG IVP at 8 min 43 secs DSE 40 MCG 1:15 122 156/65No Chest Pain Recovery 90 149/84No Chest Pain Stress Duration: 11:54 mm:ss Maximum Stress HR: 122 bpm METS: 1 Baseline Echocardiogram Findings Stress Echo Wall motion Data Resting WM Intermediate WM Stress WM MMode/2D Measurements & Calculations LVOT diam: 2.1 cm LVOT area: 3.6 cm2 Doppler Measurements & Calculations Ao V2 max: 198.3 cm/sec LV V1 max: 135.9 cm/sec SV(LVOT): 116.1 ml Ao max P.7 mmHg LV V1 max P.4 mmHg Ao V2 mean: 137.2 cm/sec LV V1 mean P.8 mmHg Ao mean P.3 mmHg LV V1 mean: 91.4 cm/sec Ao V2 VTI: 49.8 cm LV V1 VTI: 32.6 cm JASON(I,D): 2.3 cm2 JASON(V,D): 2.4 cm2 ECHO/Stress Test Echo W/Contrast Interpretation Summary Dobutamine stress echo. 80-year-old man with a history of coronary artery disease. Stress protocol: Resting EKG demonstrates normal sinus rhythm with a rate of 61 bpm occasional p remature ventricular complexes noted. Resting blood pressure is 140/81 mmHg. Dobutamine was infused starting at 10 mcg/kg/min increasing in 3-minute increments to a peak of 40 mcg/kg/min. Patien t required 0.25 mg of atropine for augmentation of heart rate. The patient maintained sinus rhythm wi th frequent premature ventricular complexes noted. At rest there were no ST or T wave changes noted t o suggest ischemia and at peak infusion nonspecific ST changes were noted with did not meet the cr iteria for ischemia. During the post infusion. Occasional premature ventricular complexes were noted . The peak blood pressure was 184/89. The maximum heart rate was 127 bpm. This was 90% of max im pact at heart rate. Dobutamine stress echo. The resting echocardiogram demonstrated low normal ejection fraction estimated to be 50%. There was an apical false tendon noted. Mild aortic regurgitation was present. Aortic scl erosis and mild stenosis was also present. With dobutamine infusion with Definity contrast ther e was improvement in left ventricular function with thickening of all goldsmith and reduction of left ve ntricular cavity size. The peak ejection fraction was approximately 57%. No new wall motion abno rmalities were noted to suggest ischemia. Conclusion: Dobutamine stress echocardiogram with no evidence of ischemia. Aortic sclerosis noted. Ordering Physician: Julio Licea M.D. Referring Physician: Julio Licea M.D. Performed By: Sarah Reina, JOSHUA, RVT
== END 2021-11-22 23:59 | disposition home or self-care (01) ==
LOC: CVS 13:26
PROVIDERS: PCP Family Medicine; Visit Provider Family Medicine
DX: R05.3 Chronic cough (principal); R06.00 Dyspnea, unspecified; I25.10 Atherosclerotic heart disease of native coronary artery without angina pectoris; R60.0 Localized edema
CPT/HCPCS: 93017; 93350; J7040; Q9957; A4216; C8928

== ENCOUNTER → 2022-01-17 | Outpatient (CLI) | payer MEDICARE, SELFPAY | END | disposition home or self-care (01) | LOC: CVS 12:56 | PROVIDERS: PCP Family Medicine; Referring Provider Surgery; Visit Provider Surgery | DX: Z01.818 Encounter for other preprocedural examination (principal) | CPT/HCPCS: 93985 ==

== ENCOUNTER 2022-01-23 09:11 | Day surgery (SDC) | payer MEDICARE, SELFPAY ==
--- NOTE | 2022-01-23 | GASB_PTH ---
PATIENT: LUIS MANUEL CASTILLO Jr. LOC: EN U#:[id number] AGE/SX: 81/M ROOM: RE01/23/[address]: Dr. cJ Piña MD : 1940 BED: DIS: 01/23/2022 SPEC #: [id number] RECD: 01/23/22 13:17 STATUS: ANSON REMandy #: [id number] TAN: 01/23/22 00:[address]: Jc Piña DEPT: SURGICAL PATHOLOGY RECD BY: Clint Santana ENTERED: 01/23/22 13:18 SP TYPE: Gastric Bx OTHR DR: Dr. Julio Licea MD Tissues: A - Gastric mucous membrane B - Stomach, NOS C - Gastric mucous membrane Procedures: Special Stain Group II Surgery Specimen Level IV Alcian Blue/PAS (control) HEADER OPERATION: EGD with biopsies (MAC) PRE-OP DIAGNOSIS: Anemia TISSUE SUBMITTED: A ? Antrum biopsy for H. pylori and path, B ? Polyp greater curvature, C ? EG junction biopsy MICROSCOPIC DIAGNOSIS A. Gastric antrum, biopsy: Chronic gastritis. Focal intestinal metaplasia. No evidence of dysplasia. See comment. B. Gastric greater curvature polyp, biopsy: Polypoid fragment of benign gastric mucosa with mild chronic inflammation. C. EG junction, biopsy: Fragments of benign squamous mucosa. No evidence of goblet cell metaplasia. See Comment. AM:remi 01/24/2022 COMMENT A. The results of immunohistochemistry for Helicobacter pylori will be reported separately ([id number]). Alcian blue/PAS stain with matched control supports the above diagnosis. Immunohistochemistry ([id number]) for P53 and Ki-67 will be performed and results will be reported separately. C. AB/PAS with matched control is negative for intestinal metaplasia. MICROSCOPIC DESCRIPTION Slides are reviewed. GROSS DESCRIPTION A - Received in fixative is one container labeled with the patient's name and designated antrum biopsy. The specimen consists of one irregular fragment of light porter soft tissue that measures 0.5 x 0.3 x 0.1 cm. The specimen is totally submitted in one cassette. B - Received in fixative is one container labeled with the patient's name and designated polyp greater curvature. The specimen consists of one irregular fragment of light porter soft tissue that measures 0.3 x 0.3 x 0.1 cm. The specimen is totally submitted in one cassette. C - Received in fixative is one container labeled with the patient's name and designated EG junction biopsy. The specimen consists of one irregular fragment of light porter soft tissue that measures 0.3 x 0.3 x 0.1 cm. The specimen is totally submitted in one cassette. / SJ:rg 01/23/2022 TC:3 CPT: 92832 x3, 99146
[2022-01-23 09:43] VITALS: BP 124/80; PULSE 63; RESP 16; TEMP 36.7; O2SAT 94; BMI 25.9
--- NOTE | 2022-01-23 10:05 | PCM.HP.BLA ---
History and Physical Date of Admission: 01/23/22 Visit Reasons: FISTULA CREATION/DISCUSS EGD Chief Complaint: post hernia repair Allergies lisinopril Adverse Reaction (Verified 01/19/22 13:03) Other [facility] Medical History (Updated 01/19/22 @ 13:[address] Jc Piña MD) Anemia CAD (coronary artery disease), [place]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 Cardiology follow-up encounter Chronic cough CKD (chronic kidney disease) stage 3, GFR 30-59 ml/min Dyslipidemia Esophageal reflux Former smoker Gastric reflux Hiatal hernia High cholesterol History of heart attack (~09/04/14) History of renal dialysis History of ulceration Hoarseness Hyperparathyroidism Hypertension Mild renal insufficiency Osteopenia determined by x-ray Recurrent inguinal hernia Recurrent inguinal hernia of right side without obstruction or gangrene Screening for intestinal cancer TIA (transient ischemic attack) Ventral incisional hernia without obstruction or gangrene Wears glasses Surgical History (Updated 01/30/21 @ 09:19 by Ruby Lim) History of ventral hernia repair Hx of bilateral inguinal hernia repair Hx of colonoscopy (~12/17/13) Hx of heart artery stent Hx of parathyroidectomy Family History Mother Colon cancer Father Colon cancer Myocardial infarction Brother Cancer Social History Smoking Status: Former smoker second hand exposure: No alcohol intake: current alcohol intake frequency: a few times a month substance use type: does not use caffeine: Yes what type of physical activity do you participate in: none seatbelt use: always HPI HPI HPI: LUIS MANUEL CASTILLO, is a 81 M who presents to the office today for consultation regarding 2 separate issues. I have assisted him previously on January 20, 2021 with a ventral incisional hernia repair with mesh. That was at the supraumbilical site and repaired with an 8 cm Ventralex mesh. The patient is now being referred by [facility] for creation of long-term dialysis access. The patient was hospitalized at [facility] in [place] with volume overload required urgent dialysis. The patient is felt to need a EGD prior to a JUNIOR to be planned. There are concerns about significant anemia but at this time I do not have access to his current laboratory. As of January 13, 2021 his hemoglobin was 10.6 and hematocrit 33 point with a platelet count of 173,000. At that same setting his BUN is 59 and creatinine 3.19 On April 19, 2022 at the [facility] he had bilateral upper extremity vein mapping. The right upper arm cephalic vein quite diminutive but the right forearm cephalic vein adequate in the right upper arm basilic vein adequate. Similar findings on the left with a diminutive cephalic vein of the upper arm and a borderline cephalic vein of the forearm. The left upper arm basilic vein is quite generous. Unfortunately the patient was hospitalized at [facility] underwent emergency hemodialysis. Apparently he had become quite ill over a period of weeks and then suddenly required emergency hospitalization. He has marked ecchymosis of the left arm with evidence of IVs ROS General General: Yes weight change and fatigue; No appetite, colon cancer, breast cancer or weakness HEENT HEENT: No difficulty swallowing, eye injury, eye surgery, swollen glands or hoarseness Endo Endocrine: No thyroid disease, diabetes mellitus, thyroid cancer, Hair loss, heat intolerance or cold intolerance Skin Skin: No rash or changing moles Breast Breast: No left breast lump, right breast lump, nipple discharge, breast pain, abnormal mammogram, abnormal US or breast enlargement Musc Musculoskeletal: No back problems, arthritis, rheumatoid arthritis, gout or joint pain Cardio Cardiovascular: Yes high blood pressure, heart attack and heart stent; No murmur, pacemaker, heart disease, atrial fibrillation, palpitations, shortness of breat with exertion or chest pain Psych Psychiatric: No depression, anxiety or hearing voices Resp Respiratory: No shortness of breath, No sleep apnea, Yes cough, No COPD, No asthma, No emphysema and No wheezing Gastro Gastrointestinal: No abdominal pain, No nausea or vomiting, No diarrhea, No constipation, No blood in stool, Yes acid reflux, No hemorrhoids, Yes ulcers, No gallbladder problem and No black,tarry stools Marcin Hematologic: No blood thinners, No blood disorders, No bleeding, No anemia and No blood clots Neuro Neurologic: No system reviewed and no additional complaints, except as documented, No as per HPI, No abnormal gait, No abnormal hearing, No abnormal movements, No abnormal speech, No behavioral changes, No burning sensations, No confusion, No convulsions, No disequilibrium, No dizziness, No localized weakness, No frequent falls, No headache(s), No lack of coordination, No loss of vision, No memory loss, No numbness, No other visual disturbances, No radicular pain, No restless legs, No sensory deficit, No syncope, No tingling, No tremor(s), No weakness and No other Exam Const General: cooperative, comfortable and no acute distress Nutritional Appearance: average body habitus Orientation: alert and awake [facility] Head: normal to inspection Eyes General: appearance normal, both eyes and all related structures Chest Other: Right anterior chest tunneled catheter Resp Effort & Inspection: normal respiratory effort Auscultation: clear to auscultation bilaterally Cardio Other: Ectopic beat, bradycardia GI Other: Soft nontender Musc Cervical Spine: normal cervical lordosis Skin Other: Marked and ecchymosis and induration left volar proximal forearm Neuro General: patient alert Extrem Other: Ultrasound inspection of the left forearm unfortunate demonstrates that there is thrombosis of the cephalic vein which would otherwise have been utilized for AV access. Right forearm cephalic vein patent and compressible 3+ right radial pulse Psych Appearance: grossly normal Assessment and Plan Assessment and Plan (1) Anemia: Status: Acute (2) Chronic in-center hemodialysis status: Status: Acute Plan - Dr. Jc Piña MD: 81-year-old gentleman. A request has been made for an upper endoscopy to be performed prior to a JUNIOR because of the patient's anemia. The patient is aware of technique, benefit, risk and alternatives. I suspect the patient's anemia secondary to his stage V renal insufficiency. However we will be able to achieve a esophagogastroduodenoscopy with possible biopsy as requested Patient is right arm dominant. Unfortunately his left forearm cephalic vein has evidence of acute superficial thrombophlebitis related to his medical treatment at [facility]. I therefore will have to repeat liquid language to the dominant right arm. I plan a right forearm radiocephalic AV fistula. Just proximal to the wrist level there is a bifurcation and then the vein more proximal that is quite generous. I will inspect for possible sidebranch ligation as well. This can be performed under local anesthetic monitored anesthesia care. He has had an opportunity ask and have questions answered. We will schedule and expedite his care. Copy: Dr. Julio Piña M.D., F.A.C.S. I have re-examined the patient. There are no clinical changes since date of exam. Jc Piña M.D., F.A.C.S.
--- NOTE | 2022-01-23 10:15 | IMM_PTH ---
PATIENT: LUIS MANUEL CASTILLO Jr. LOC: EN U#:[id number] AGE/SX: 81/M ROOM: RE01/23/[address]: Dr. Jc Piña MD : 1940 BED: DIS: 01/23/2022 SPEC #: [id number] RECD: 01/23/22 13:45 STATUS: ANSON REQ #: [id number] TAN: 01/23/22 10:[address]: Jc Piña DEPT: IMMUNOHISTOCHEMISTRY RECD BY: Jackie Carmona ENTERED: 01/23/22 13:46 SP TYPE: IMMUNO OTHR DR: Dr. Julio Licea MD Tissues: A - Stomach, NOS C - Esophageal mucous membrane Procedures: H Pylori (initial) P53 (initial) KI-67 (add) PHYSICIAN & INSTITUTION [place] [id number] SPECIMEN INFORMATION: Tissue Source: A ? Antrum biopsy, C ? EG junction biopsy Clinical Info: Anemia Specimen Number: [id number] A & C CPT code: 81472 x2, 24046 METHODOLOGY: Deparaffinized sections of prefer/formalin-fixed tissue or PAP/DQ stained slides are incubated with monoclonal/polyclonal antibodies/oligonucleotide probes. Localization is made via biotin free immunoperoxidase method. Appropriate controls are performed and reacted as expected. Results on target cell population are indicated in the following table: RESULTS: ANTIBODY / CLONE RESULT Block A H Pylori (polyclonal) negative Block C P53 (DO-7) negative Ki-67 (30-9) negative These tests were developed and their performance characteristics determined by [facility]. They may not have been cleared or approved by the U.S. Food and Drug Administration. The FDA has determined that such clearance or approval is not necessary. The above immunohistochemical/dualISH markers are ordered and reviewed by the Pathologist. INTERPRETATION: A. Antrum, biopsy: Negative for Helicobacter pylori organisms. C. EG junction, biopsy: No evidence of dysplasia. AM:remi 01/29/2022
[2022-01-23 11:54] VITALS: BP 120/74; BP 124/80; PULSE 63; RESP 18; TEMP 36.6; O2SAT 92
--- NOTE | 2022-01-23 11:55 | OP.EGD_ITS ---
Patient Name: Sharan Duran Procedure Date: 01/23/2022 11:31 AM Date of : 1940 Age: 81 Procedure: Upper GI endoscopy Indications: Iron deficiency anemia Providers: Jc Piña MD Medicines: See the Anesthesia note for documentation of the administered medications Complications: No immediate complications. Procedure: Pre-Anesthesia Assessment: - Prior to the procedure, a History and Physical was performed, and patient medications and allergies were reviewed. The patient's tolerance of previous anesthesia was also reviewed. The risks and benefits of the procedure and the sedation options and risks were discussed with the patient. All questions were answered, and informed consent was obtained. Prior Anticoagulants: The patient has taken no previous anticoagulant or antiplatelet agents. ASA Grade Assessment: III - A patient with severe systemic disease. After reviewing the risks and benefits, the patient was deemed in satisfactory condition to undergo the procedure. After obtaining informed consent, the endoscope was passed under direct vision. Throughout the procedure, the patient's blood pressure, pulse, and oxygen saturations were monitored continuously. The gastroscope was introduced through the mouth, and advanced to the second part of duodenum. The upper GI endoscopy was accomplished without difficulty. The patient tolerated the procedure well. Scope In: 11:40:50 AM Scope Out: 11:46:16 AM Total Procedure Duration Time 0 hours 5 minutes 26 seconds Findings: Esophagitis with no bleeding was found 40 cm from the incisors. Biopsies were taken with a cold forceps for histology. A non-obstructing and mild Schatzki ring was found at the gastroesophageal junction. Small (< 5 mm) varices were found in the entire esophagus. A medium-sized hiatal hernia was present. Diffuse mildly erythematous mucosa without bleeding was found in the gastric antrum. Biopsies were taken with a cold forceps for histology. Multiple sessile polyps with no bleeding and no stigmata of recent bleeding were found in the entire examined stomach. The polyp was removed with a cold biopsy forceps. Resection and retrieval were complete. The examined duodenum was normal. Impression: - Reflux esophagitis. Biopsied. - Non-obstructing and mild Schatzki ring. - Small (< 5 mm) esophageal varices. - Medium-sized hiatal hernia. - Erythematous mucosa in the antrum. Biopsied. - Multiple gastric polyps. Resected and retrieved. - Normal examined duodenum. Flat, non bleeding esophageal varices noted. Recommendation: - Telephone my office for pathology results in 1 week. - Continue present medications. Procedure Code(s): --- Professional --- 70373, Esophagogastroduodenoscopy, flexible, transoral; with biopsy, single or multiple Diagnosis Code(s): --- Professional --- K21.0, Gastro-esophageal reflux disease with esophagitis K22.2, Esophageal obstruction I85.00, Esophageal varices without bleeding K44.9, Diaphragmatic hernia without obstruction or gangrene K31.89, Other diseases of stomach and duodenum K31.7, Polyp of stomach and duodenum D50.9, Iron deficiency anemia, unspecified CPT copyright 2017 [employer]. All rights reserved. The codes documented in this report are preliminary and upon estate planning paralegal review may be revised to meet current compliance requirements. Jc Piña MD 01/23/2022 11:54:40 AM This report has been signed electronically. Number of Addenda: 0 Note Initiated On: 01/23/2022 11:31 AM
--- NOTE | 2022-01-23 11:56 | OP.CCLET_ITS ---
01/23/2022 Julio Licea MD Re : Upper GI endoscopy procedure for Sharan Roger Dear Dr. Licea This procedure was performed on Sunday, January 23, 2022. My impressions and recommendations are as follows: Impressions : - Reflux esophagitis. Biopsied. - Non-obstructing and mild Schatzki ring. - Small (< 5 mm) esophageal varices. - Medium-sized hiatal hernia. - Erythematous mucosa in the antrum. Biopsied. - Multiple gastric polyps. Resected and retrieved. - Normal examined duodenum. Flat, non bleeding esophageal varices noted. Recommendations : - Telephone my office for pathology results in 1 week. - Continue present medications. My findings are described in the full procedure note, which is enclosed. If I can be of further assistance, please feel free to contact me at Doctor phone number(s): Work: . Sincerely, Jc Piña MD 01/23/2022 11:54:40 AM This report has been signed electronically.
[2022-01-23 12:00] VITALS: BP 116/64; BP 124/80; PULSE 65; RESP 18; O2SAT 94
[2022-01-23 12:05] VITALS: BP 116/69; BP 124/80; PULSE 66; RESP 18; O2SAT 93
[2022-01-23 12:10] VITALS: BP 124/80; BP 127/73; PULSE 65; RESP 18; TEMP 36.9; O2SAT 94
[2022-01-23 12:20] VITALS: BP 124/80
== END 2022-01-23 12:37 | disposition home or self-care (01) ==
LOC: EN 09:11 → AC 09:15
PROVIDERS: PCP Family Medicine; Referring Provider Family Medicine; Visit Provider Surgery
PROC: 0DJ08ZZ Inspection of Upper Intestinal Tract, Via Natural or Artificial Opening Endoscopic (ICD-10-PCS; CPT 43235; principal; 2022-01-23 10:10)
DX: I85.00 Esophageal varices without bleeding (principal); Z99.2 Dependence on renal dialysis; N18.30 Chronic kidney disease, stage 3 unspecified; I12.9 Hypertensive chronic kidney disease with stage 1 through stage 4 chronic kidney disease, or unspecified chronic kidney disease; K21.00 Gastro-esophageal reflux disease with esophagitis, without bleeding; K31.7 Polyp of stomach and duodenum; K22.2 Esophageal obstruction; D50.9 Iron deficiency anemia, unspecified; K44.9 Diaphragmatic hernia without obstruction or gangrene; K20.90 Esophagitis, unspecified without bleeding; I25.10 Atherosclerotic heart disease of native coronary artery without angina pectoris; E78.5 Hyperlipidemia, unspecified; I25.2 Old myocardial infarction; Z86.73 Personal history of transient ischemic attack (TIA), and cerebral infarction without residual deficits; Z87.891 Personal history of nicotine dependence; Z80.0 Family history of malignant neoplasm of digestive organs
CPT/HCPCS: 43239; 88305; 88313; 88341; 88342; J7040; J2405

== ENCOUNTER 2022-02-08 08:29 | Day surgery (SDC) | payer MEDICARE, SELFPAY ==
[2022-02-02 13:36] LABS: Hematocrit 42.6 % (40-54); Hemoglobin 13.1 g/dL (13.0-16.5); Mean Corp Hgb Conc 30.8 g/dL (32-36); Mean Corpuscular Hgb 30.4 pg (27.0-32.0); Mean Corpuscular Volume 98.8 fL (80-94); Mean Platelet Vol. 10.7 fl (6.2-12.0); Platelet Count 151 K/mm3 (150-450); RBC Distribution Width CV 14.6 % (11.6-14.6); RBC Distribution Width SD 53.5 fl (35.1-43.9); Red Blood Count 4.31 M/mm3 (4.6-6.2); White Blood Count 5.6 K/mm3 (4.4-11.0)
[2022-02-02 14:00] LABS: Anion Gap 6 (5-15); BUN 19 mg/dL (7-18); BUN/Creat Ratio 4.7 RATIO (10-20); Calcium,Total 9.4 mg/dL (8.5-10.1); Chloride 100 mmol/L (98-107); Creatinine, Serum 4.06 mg/dL (0.70-1.30); EST Glomerular Filtration Rate 15 mL/min (>60); Est Glom Filt Rate - Afr Amer 18 mL/min (>60); Glucose 107 mg/dL (74-106); Potassium 3.8 mmol/L (3.5-5.1); Sodium Level 135 mmol/L (136-145)
[2022-02-08] VITALS (7 sets, daily range): BP systolic 130–153; BP diastolic 66–80; PULSE 52–73; RESP 14–18; TEMP 36.6–37.1; O2SAT 93–97; BMI 25.9
--- NOTE | 2022-02-08 09:59 | HP.PCM_ITS ---
History and Physical Date of Admission: 02/08/22 Visit Reasons:?FISTULA CREATION/DISCUSS EGD Chief Complaint: post hernia repair Allergies lisinopril Adverse Reaction (Verified 01/19/22 13:03) Other [facility] Medical History?(Updated 01/19/22 @ 13:[address] Jc Piña MD) Anemia CAD (coronary artery disease), [place]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 Cardiology follow-up encounter Chronic cough CKD (chronic kidney disease) stage 3, GFR 30-59 ml/min Dyslipidemia Esophageal reflux Former smoker Gastric reflux Hiatal hernia High cholesterol History of heart attack (~09/04/14) History of renal dialysis History of ulceration Hoarseness Hyperparathyroidism Hypertension Mild renal insufficiency Osteopenia determined by x-ray Recurrent inguinal hernia Recurrent inguinal hernia of right side without obstruction or gangrene Screening for intestinal cancer TIA (transient ischemic attack) Ventral incisional hernia without obstruction or gangrene Wears glasses Surgical History?(Updated 01/30/21 @ 09:19 by Ruby Lim) History of ventral hernia repair Hx of bilateral inguinal hernia repair Hx of colonoscopy (~12/17/13) Hx of heart artery stent Hx of parathyroidectomy Family History? Mother Colon cancerFather Colon cancer Myocardial infarctionBrother Cancer Social History? Smoking Status:? Former smoker second hand exposure:? No alcohol intake:? current alcohol intake frequency: a few times a month substance use type:? does not use caffeine:? Yes what type of physical activity do you participate in:? none seatbelt use:? always HPI HPI HPI: LUIS MANUEL CASTILLO, is a 81 M who presents to the office today for consultation regarding 2 separate issues.? I have assisted him previously on January 20, 2021 with a ventral incisional hernia repair with mesh.? That was at the supraumbilical site and repaired with an 8 cm Ventralex mesh.? The patient is now being referred by [facility] for creation of long-term dialysis access.? The patient was hospitalized at [facility] in [place] with volume overload required urgent dialysis.? The patient is felt to need a EGD prior to a JUNIOR to be planned.? There are concerns about significant anemia but at this time I do not have access to his current laboratory.? As of January 13, 2021 his hemoglobin was 10.6 and hematocrit 33 point with a platelet count of 173,000.? At that same setting his BUN is 59 and creatinine 3.19 On April 19, 2022 at the [facility] he had bilateral upper extremity vein mapping.? The right upper arm cephalic vein quite diminutive but the right forearm cephalic vein adequate in the right upper arm basilic vein adequate.? Similar findings on the left with a diminutive cephalic vein of the upper arm and a borderline cephalic vein of the forearm.? The left upper arm basilic vein is quite generous. Unfortunately the patient was hospitalized at [facility] underwent emergency hemodialysis.? Apparently he had become quite ill over a period of weeks and then suddenly required emergency hospitalization.? He has marked ecchymosis of the left arm with evidence of IVs ROS General General: Yes weight change and fatigue; No appetite, colon cancer, breast cancer or weakness HEENT HEENT: No difficulty swallowing, eye injury, eye surgery, swollen glands or hoarseness Endo Endocrine: No thyroid disease, diabetes mellitus, thyroid cancer, Hair loss, heat intolerance or cold intolerance Skin Skin: No rash or changing moles Breast Breast: No left breast lump, right breast lump, nipple discharge, breast pain, abnormal mammogram, abnormal US or breast enlargement Musc Musculoskeletal: No back problems, arthritis, rheumatoid arthritis, gout or joint pain Cardio Cardiovascular: Yes high blood pressure, heart attack and heart stent; No murmur, pacemaker, heart disease, atrial fibrillation, palpitations, shor tness of breat with exertion or chest pain Psych Psychiatric: No depression, anxiety or hearing voices Resp Respiratory: No shortness of breath, No sleep apnea, Yes cough, No COPD, No asthma, No emphysema and No wheezing Gastro Gastrointestinal: No abdominal pain, No nausea or vomiting, No diarrhea, No constipation, No blood in stool, Yes acid reflux, No hemorrhoids, Yes ulcers, No gallbladder problem and No black,tarry stools Marcin Hematologic: No blood thinners, No blood disorders, No bleeding, No anemia and No blood clots Neuro Neurologic: No system reviewed and no additional complaints, except as documented, No as per HPI, No abnormal gait, No abnormal hearing, No abnormal movements, No abnormal speech, No behavioral changes, No burning sensations, No confusion, No convulsions, No disequilibrium, No dizziness, No localized weakness, No frequent falls, No headache(s), No lack of coordination, No loss of vision, No memory loss, No numbness, No other visual disturbances, No radicular pain, No restless legs, No sensory deficit, No syncope, No tingling, No trem or(s), No weakness and No other Exam Const General: cooperative, comfortable and no acute distress Nutritional Appearance: average body habitus Orientation: alert and awake [facility] Head: normal to inspection Eyes General: appearance normal, both eyes and all related structures Chest Other: Right anterior chest tunneled catheter Resp Effort & Inspection: normal respiratory effort Auscultation: clear to auscultation bilaterally Cardio Other: Ectopic beat, bradycardia GI Other: Soft nontender Musc Cervical Spine: normal cervical lordosis Skin Other: Marked and ecchymosis and induration left volar proximal forearm Neuro General: patient alert Extrem Other: Ultrasound inspection of the left forearm unfortunate demonstrates that there is thrombosis of the cephalic vein which would otherwise have been utilized for AV access. Right forearm cephalic vein patent and compressible 3+ right radial pulse Psych Appearance: grossly normal Assessment and Plan Assessment and Plan (1) Anemia: ?Status:?Acute (2) Chronic in-center hemodialysis status: ?Status:?Acute ?Plan - Dr. Jc Piña MD: 81-year-old gentleman.? A request has been made for an upper endoscopy to be performed prior to a JUNIOR because of the patient's anemia.? The patient is aware of technique, benefit, risk and alternatives.? I suspect the patient's anemia secondary to his stage V renal insufficiency.? However we will be able to achieve a esophagogastroduodenoscopy with possible biopsy as requested Patient is right arm dominant.? Unfortunately his left forearm cephalic vein has evidence of acute superficial thrombophlebitis related to his medical treatment at [facility]. I therefore will have to use the dominant right arm.? I plan a right forearm radiocephalic AV fistula.? Just proximal to the wrist level there is a bifurcation and then the vein more proximal that is quite generous.? I will inspect for possible sidebranch ligation as well.? This can be performed under local anesthetic monitored anesthesia care. He has had an opportunity ask and have questions answered.? We will schedule and expedite his care. Copy: Dr. Julio Piña M.D., F.JimboS. I have re-examined the patient. There are no clinical changes since date of exam. Jc Piña M.D., F.Karen.C.S.
--- NOTE | 2022-02-08 10:15 | DCINST_ITS ---
Discharge Instructions Procedure Fistula Diet Discharge Diet: Renal Diet Activity Discharge Activity: May Not Drive (for 2-3 days or while taking narcotic pain medications.), May Shower and May Take a Tub Bath (in 5 days.) Lifting Restrictions: 5 pounds Keep extremity elevated above heart level: - (Keep arm elevated above the heart level for 3 days.) Dressing / Incision Call your doctor if your incision/area has: Continuous Slow Oozing, Sudden Increased Bleeding (apply pressure and call your doctor.), Increased Pain/ Swelling, Increased Redness and Foul Smelling Discharge Call your doctor if you observe: Fever of 101 or Higher Suture Line Care: Avoid Pulling/Pushing and Avoid Pinching/Bending Cleanse incision/area with: Keep Dressing Clean & Dry Additional Dressing/Incision Instructions:: Change or remove dressing in one day. May protect with a gauze bandaid. Follow Up Care Please Follow Up With: Jc Piña MD When: Call [phone] to make an appointment for suture removal and follow up in 1 week. Test Results: Test results from this visit will be discussed in further detail at your follow- up appointment, if applicable. Discharge Plan Admission Attending Provider: Jc Piña Primary Care Provider: Julio Licea Discharge Orders/Prescriptions Prescriptions: No Action aspirin [Adult Low Dose Aspirin] 81 mg tablet,delayed release (DR/EC) 81 mg PO DAILY metoprolol tartrate 25 mg tablet 25 mg PO HS atorvastatin 40 mg tablet 40 mg PO DAILY amlodipine 10 mg tablet 5 mg PO DAILY furosemide 80 mg tablet 80 mg PO BID metoprolol tartrate 50 mg tablet 50 mg PO DAILY Label Comments: AM pantoprazole 40 mg tablet,delayed release (DR/EC) 40 mg PO DAILY nitroglycerin 0.4 MG tablet, sublingual 0.4 mg SL X1 PRN (Reason: CHEST PAIN) Referrals / Follow Up: Julio Licea MD [Primary Care Provider] - Disposition Disposition (needs filled in before D/C Order can be placed): Home, Self Care
[2022-02-08] MEDS: Bupivacaine Mpf 0.5% 30 ML VIAL (10:34)
[2022-02-08] MEDS: Lidocaine 1% (30 ml sdv) 30 ML Vial (10:34)
[2022-02-08] MEDS: Heparin Injection (Vial) 5,000 UNIT/ML VIAL 5000 UNIT (10:51)
--- NOTE | 2022-02-08 11:24 | PCM.OPRPT ---
Report of Operation Date of Procedure: 02/08/22 Pre-Operative Diagnosis: Stage V chronic renal failure in need of hemodialysis access Post-Operative Diagnosis: Same Surgery/Procedure Performed:: Right forearm radial to cephalic arteriovenous hemodialysis fistula creation Description of Surgical Findings:: Timeout informed consent was obtained. 89-year-old gentleman was taken to the operating placed upon the table underwent monitored anesthesia care. The right upper extremity was sterilely prepped and draped. Ultrasound mapping had been performed preprocedure. 1% lidocaine mixed 50-50 with 0.5% Marcaine was used as a local anesthetic. I used a total of 8 cc. An oblique incision was made in the radial aspect of the right wrist sharp and blunt dissection was used to identify the cephalic vein at a branch point. I then dissected more proximally and identified a additional branch point at which point I ligated the secondary conduit with hemoclips. Mobilized the vein. Then sharp and blunt dissection was used to identify the radial artery and I placed a vessel loop around it. Patient received 8000 units of heparin. After adequate circulation time I ligated the vein distally with hemoclips and then as it was at a branch point I then spatulated that portion of the vein to allow for larger anastomosis. An 11 blade was used to make an arteriotomy and I extended that with Winn scissors. A end-to-side venous to arterial anastomosis was created with a running 7-0 Prolene. Prior to completion there was good antegrade retrograde flow. The anastomosis was completed and hemostasis was immediately nicely intact. There was good flow and I assured a good positional lie of the vein. There is a palpable thrill. The hand was viable. Subdermal tissues approximated up to 3-0 Vicryl. Skin edges approximated running subicular 4 Monocryl. Steri-Strips Telfa OpSite dressings applied. Sponge and instrument and needle counts were reported to the surgeon to be correct. Specimens none. Drains none. Blood loss minimal. The patient was taken to the recovery area in satisfactory addition without apparent complication Jc Piña M.D., F.A.C.S. Surgeon: Jc Piña Type of Anesthesia: Local MAC Anesthesiologist: Laz Amanda
--- NOTE | 2022-02-08 13:30 | SUR.PHASEII ---
pt being discharged and upon getting into vehicle, noted dressing to have bled through, returned pt to room-immediate elevation and pressure held and called DR Piña, noted sm amt of ecchymosis forming around dressing. New orders from Dr Piña to hold pressure and monitor pt for 1hour, then change dressing. After 45 minutes of pressure-area just oozing, after 1 hour pressure, no further bleeding, no hematoma, mild ecchymosis. Dressing changed-monitored 30 minutes without pressure and no further bleeding noted. Telephone call to Dr Piña-pt oralia be discharged home now Bp 154/70
== END 2022-02-08 13:24 | disposition home or self-care (01) ==
LOC: SDC 08:29 → AC 08:30
PROVIDERS: PCP Family Medicine; Referring Provider Surgery; Visit Provider Surgery
PROC: (CPT 36821; principal; 2022-02-08 10:15)
DX: I12.0 Hypertensive chronic kidney disease with stage 5 chronic kidney disease or end stage renal disease (principal); N18.5 Chronic kidney disease, stage 5; D64.9 Anemia, unspecified; I80.8 Phlebitis and thrombophlebitis of other sites; I25.10 Atherosclerotic heart disease of native coronary artery without angina pectoris; E78.5 Hyperlipidemia, unspecified; K21.9 Gastro-esophageal reflux disease without esophagitis; I25.2 Old myocardial infarction; Z87.891 Personal history of nicotine dependence; Z86.73 Personal history of transient ischemic attack (TIA), and cerebral infarction without residual deficits
CPT/HCPCS: 36821; 36415; 80048; 85027; J7040

== ENCOUNTER 2022-02-11 13:42 | Emergency (ER) | payer MEDICARE, SELFPAY ==
[2022-02-11 13:44] VITALS: BP 146/71; PULSE 62; RESP 15; TEMP 36.3; O2SAT 96; BMI 26.6
--- NOTE | 2022-02-11 14:18 | CT_ITS ---
STUDY: CT SOFT TISSUE NECK WITHOUT CONTRAST REASON FOR EXAM: Male, 81 years old. Left neck mass. RADIATION DOSAGE (If Supplied By Facility): CTDIvol = ( 19.67 ) mGy, DLP = ( 586 ) mGycm TECHNIQUE: The patient was scanned in a multi-detector CT scanner. High resolution transaxial imaging was performed without the administration of intravenous contrast material. Sagittal and coronal images were reconstructed. Individualized dose optimization techniques were used for this CT. COMPARISON: None. FINDINGS: Normal bilateral parotid glands. Normal bilateral client associate spaces. Normal bilateral parapharyngeal spaces. Calcified plaques in both carotid bulbs. Normal bilateral carotid spaces. Normal bilateral sublingual and submandibular glands and spaces. Normal visualized nasopharynx. Normal retropharyngeal space. Normal perivertebral space. Normal visualized bilateral faucial tonsils. The visualized tongue, tongue base and oropharynx are normal. Enlarged fat-containing lymph node in the left submandibular space. This is most likely benign reactive node. There is no demonstrated solid or cystic mass lesion. Normal epiglottis, bilateral vallecula and hypopharynx. The pre-epiglottic and paraglottic adipose spaces are normal. Normal visualized bilateral piriform sinuses, aryepiglottic folds, vocal cords, and arytenoid-cricoid articulations. Normal subglottic trachea. Normal bilateral lobes of the thyroid gland. Normal visualized pulmonary apices. Normal visualized paranasal sinuses. Mild upper cervical kyphosis. Moderate pronounced degenerative disc space height narrowing with endplate sclerosis at C3-C4, C4-C5, C5-C6 and C6-C7 disc space levels. Mild degenerative anterolisthesis of C7 on T1. CT/Soft Tissue Neck without Contr IMPRESSION: 1. Enlarged but fat-containing lymph node in the left submandibular space is most likely benign reactive node. There is minimal thickening of the overlying skin and haziness of the overlying subcutaneous fat suggesting superficial cellulitis. Please correlate with physical exam. 2. No suspicious mass or suspicious cervical lymphadenopathy in the suprahyoid neck and infrahyoid neck. 3. Mild degenerative anterolisthesis of C7 on T1. 4. Limited study due to dental amalgam streak artifacts obscuring the level of the oral cavity. Electronically Signed: Kevin Ojeda MD at 15:06 EDT ,
--- NOTE | 2022-02-11 14:19 | EDS_ITS ---
HPI History of Present Illness Chief Complaint: Other, Pain/Inj Detail of Chief Complaint: Left-sided neck mass noted yesterday Informant: patient Narrative Narrative: Patient presents to the emergency department complaint of a left-sided neck mass that he would like to have evaluated. Patient states that he noticed it yesterday. Patient denies any trauma to the area. He denies fever or recent illness. Patient 3 days ago had a fistula placed in his right upper extremity for dialysis. Prior similar symptoms: No PFSH PFSH Medical History (Updated 02/11/22 @ 15:[address] Shruthi Baires, DO) Alcohol use Anemia Anemia CAD (coronary artery disease), [place]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 Cardiology follow-up encounter Chronic cough CKD (chronic kidney disease) stage 3, GFR 30-59 ml/min Dyslipidemia Esophageal reflux Former smoker Gastric reflux Hiatal hernia High cholesterol History of edema History of heart attack (~09/04/14) History of renal dialysis History of renal disease History of stress test History of ulceration Hoarseness Hyperparathyroidism Hypertension Hypertension Mild renal insufficiency Osteopenia determined by x-ray Recurrent inguinal hernia Recurrent inguinal hernia of right side without obstruction or gangrene Restless legs Screening for intestinal cancer TIA (transient ischemic attack) Ventral incisional hernia without obstruction or gangrene Wears glasses Home Medications aspirin 81 mg tablet,delayed release (Adult Low Dose Aspirin) 81 mg PO DAILY 04/29/18 [History Last Taken 05/20/18 07:00] nitroglycerin 0.4 mg sublingual tablet 0.4 mg sublingual X1 PRN CHEST PAIN 01/12/20 [History Last Taken Unknown] atorvastatin 40 mg tablet 40 mg PO DAILY 11/24/20 [History Last Taken Unknown] amlodipine 10 mg tablet 5 mg PO DAILY 01/19/22 [History Last Taken 02/08/22 06:30] furosemide 80 mg tablet 80 mg PO BID 01/19/22 [History Last Taken Unknown] metoprolol tartrate 25 mg tablet 25 mg PO HS 01/19/22 [History Last Taken Unknown] metoprolol tartrate 50 mg tablet 50 mg PO DAILY 01/19/22 [History Last Taken 02/08/22 06:30] pantoprazole 40 mg tablet,delayed release 40 mg PO DAILY 01/19/22 [History Last Taken 02/08/22 06:30] amoxicillin 875 mg-potassium clavulanate 125 mg tablet 875 mg PO Q12H #20 TABLETS 02/11/22 [Rx Last Taken Unknown] Allergy/AdvReac Type Severity Reaction Status Date / Time lisinopril AdvReac Other Verified 02/11/22 13:44 Family History Mother Colon cancer Father Colon cancer Myocardial infarction Brother Cancer Surgical History History of ventral hernia repair Hx of bilateral inguinal hernia repair Hx of colonoscopy (~12/17/13) Hx of heart artery stent Hx of parathyroidectomy Social History Smoking Status: Former smoker second hand exposure: No alcohol intake: current alcohol intake frequency: a few times a month substance use type: does not use caffeine: Yes what type of physical activity do you participate in: none seatbelt use: always ROS ROS ED Review of Systems ROS Unobtainable: other Constitutional Constitutional ED: Reports lethargy; Denies chills, fever(s), sweats or weight loss Eyes Eyes: Denies blurry vision, change in vision or diplopia ENT ENT ED: Reports other Details: Left neck mass ; Denies rhinorrhea or sore throat Cardiovascular Cardiovascular: Reports chest pain and racing heartbeat; Denies orthopnea Respiratory/Chest Respiratory/Chest: Reports dyspnea and dyspnea on exertion; Denies cough, orthopnea or sputum Gastrointestinal Gastrointestinal: Denies abdominal pain, diarrhea, nausea or vomiting Genitourinary Genitourinary ED: Denies dysuria, hematuria or urinary frequency Musculoskeletal Musculoskeletal: Denies arthralgias, back pain, myalgias or neck pain Integumentary Denies abscess, Abrasions or rash Neurologic Neurologic: Denies headache(s) or weakness Psychiatric Psychiatric: Denies anxiety, depression or suicidal thoughts Endocrine Endocrinology: Denies polydipsia, polyphagia or polyuria Hematologic/Lymphatic Hematologic/Lymphatic: Denies easy bleeding, easy bruising or lymphadenopathy Allergic/Immunologic Allergic/Immunologic ED: Denies mouth swelling, tongue swelling or urticaria EXAM Physical Exam Const Vital Signs: 02/11/22 13:44 02/11/22 14:41 Temperature 97.4 F L Temperature Source Temporal Pulse Rate 62 Respiratory Rate 15 Respiratory Effort Normal Non-Labored Respiratory Pattern Normal Blood Pressure 146/71 H Blood Pressure Mean 96 Pulse Ox 96 Oxygen Delivery Method Room Air Positive well nourished and well developed General Appearance ED: well developed and NAD HEENT Reports TM's clear and moist mucous membranes HEENT Narrative: Patient has a soft tissue swelling inferior to the left mandible along the anterior sternocleidomastoid muscle. Area measures approximately 3-1/2 x 2-1/2 cm. Area is tender to palpation. No erythema or warmth noted. No cellulitic changes noted. normocephalic and atraumatic; Negative for trauma or tenderness Tympanic Membrane ED: Yes TM's clear Eyes PERRL and EOMs intact bilaterally General Eye ED: Negative for pale conjunctiva or scleral icterus Neck no lymphadenopathy, supple and no JVD General: Negative for tenderness Chest Wall inspection of chest normal and palpation of chest normal Chest: Negative for tenderness Resp normal respiratory effort and clear to auscultation bilaterally Effort and Inspection: Negative for respiratory distress or pain with movement Auscultation: Negative for rhonchi, wheezes or diminished lung sounds Cardio regular rate, regular rhythm, S1 normal heart sound, S2 normal heart sound and no murmurs Peripheral Pulses: pulses 2+ throughout GI normal to inspection, nondistended, normoactive bowel sounds, soft to palpation, non-tender, non-distended and no masses Back/Spine no CVA tenderness and no thoracic nor lumbar tenderness Extremity normal to inspection General Extremety ED: Negative for edema General Extremity: Negative for edema Neuro oriented x3, CN's II-XII intact bilaterally, no sensory deficits noted and gait normal Sensorium / Orientation: awake, alert, oriented to person, oriented to place and oriented to time Motor Exam: strength 5/5 throughout and strength abnormal Psych mental status grossly normal Skin no rashes or lesions noted and no wounds MDM MDM MDM Narrative Medical decision making narrative: IV Hep-Lock established. CBC with differential showed a normal white count of 8.4. CT of the neck without contrast was obtained given that patient is a dialysis patient and this showed an enlarged but fat-containing lymph node in the left submandibular space most likely benign reactive node. I discussed findings with ENT physician on-call Dr. Pérez Olea who recommended Augmentin and follow-up with their office next week. Patient has no dental pain on percussion. Discussed results with patient and discussed plan with patient he is in agreement. Lab Data Attestation: I reviewed the patient's lab results. Labs: Laboratory Results - last 24 hr 02/11/22 14:25 WBC 8.4 RBC 3.65 L Hgb 11.1 L Hct 35.9 L MCV 98.4 H MCH 30.4 MCHC 30.9 L RDW Std Deviation 52.8 H RDW Coeff of Horacio 14.6 Plt Count 130 L MPV 10.8 Immature Gran % (Auto) 0.400 Neut % (Auto) 72.2 H Lymph % (Auto) 14.0 L Sully % (Auto) 10.2 H Eos % (Auto) 2.8 Baso % (Auto) 0.4 Absolute Neuts (auto) 6.1 Absolute Lymphs (auto) 1.18 Nucleated RBC % 0 Radiography Diagnostic Testing: Clinical Impression(s) from Imaging Studies Soft Tissue Neck CT 02/11/22 14:18 IMPRESSION: 1. Enlarged but fat-containing lymph node in the left submandibular space is most likely benign reactive node. There is minimal thickening of the overlying skin and haziness of the overlying subcutaneous fat suggesting superficial cellulitis. Please correlate with physical exam. 2. No suspicious mass or suspicious cervical lymphadenopathy in the suprahyoid neck and infrahyoid neck. 3. Mild degenerative anterolisthesis of C7 on T1. 4. Limited study due to dental amalgam streak artifacts obscuring the level of the oral cavity. Electronically Signed: Kevin Ojeda MD at 15:06 EDT , Discharge Plan Triage Chief Complaint: Other, Pain/Inj ED Provider: Shruthi Baires Dx/Rx/DC Orders Clinical Impression: Cervical lymphadenitis Instructions: ED ADENITIS Cervical Abx Tx Prescriptions: New amoxicillin-pot clavulanate [amoxicillin-pot clavulanate] 875-125 mg tablet 875 mg PO Q12H Qty: 20 0RF No Action aspirin [Adult Low Dose Aspirin] 81 mg tablet,delayed release (DR/EC) 81 mg PO DAILY metoprolol tartrate 25 mg tablet 25 mg PO HS atorvastatin 40 mg tablet 40 mg PO DAILY amlodipine 10 mg tablet 5 mg PO DAILY furosemide 80 mg tablet 80 mg PO BID metoprolol tartrate 50 mg tablet 50 mg PO DAILY Label Comments: AM pantoprazole 40 mg tablet,delayed release (DR/EC) 40 mg PO DAILY nitroglycerin 0.4 MG tablet, sublingual 0.4 mg SL X1 PRN (Reason: CHEST PAIN) Primary Care Provider: Julio Licea Referrals: Julio Licea MD [Primary Care Provider] - Pérez Olea MD [STAFF PHYSICIAN] - 3-5 Days Disposition Disposition: Home, Self Care
[2022-02-11 14:30] LABS: Absolute Lymphocyte Count 1.18 X10^3/uL (0.83-4.51); Absolute Neutrophil Count 6.1 X10^3/uL (2.0-7.7); Basophil# 0.03 X10^3/uL; Basophil% 0.4 % (0-1); Eosinophil# 0.24 X10^3/uL; Eosinophils% 2.8 % (0-5); Hematocrit 35.9 % (40-54); Hemoglobin 11.1 g/dL (13.0-16.5); Lymphocyte # 1.18 X10^3/ul (0.83-4.51); Mean Corp Hgb Conc 30.9 g/dL (32-36); Mean Corpuscular Hgb 30.4 pg (27.0-32.0); Mean Corpuscular Volume 98.4 fL (80-94); Mean Platelet Vol. 10.8 fl (6.2-12.0); Monocyte# 0.86 X10^3/uL; Monocyte% 10.2 % (0-10); NRBC Flagged by Analyzer 0 % (0-5); Neutrophil # 6.09 X10^3/uL (2.7-7.7); Neutrophil % 72.2 % (47-70); Platelet Count 130 K/mm3 (150-450); RBC Distribution Width CV 14.6 % (11.6-14.6); RBC Distribution Width SD 52.8 fl (35.1-43.9); Red Blood Count 3.65 M/mm3 (4.6-6.2); White Blood Count 8.4 K/mm3 (4.4-11.0)
[2022-02-11] MEDS: Amox/Clavulanate 875 MG Tablet PO (15:30)
== END 2022-02-11 15:32 | disposition home or self-care (01) ==
PROVIDERS: Emergency Provider Emergency Medicine; PCP Family Medicine; Visit Provider Emergency Medicine
DX: I88.9 Nonspecific lymphadenitis, unspecified (principal); I12.9 Hypertensive chronic kidney disease with stage 1 through stage 4 chronic kidney disease, or unspecified chronic kidney disease; N18.30 Chronic kidney disease, stage 3 unspecified; I25.10 Atherosclerotic heart disease of native coronary artery without angina pectoris; E78.00 Pure hypercholesterolemia, unspecified; I25.2 Old myocardial infarction; Z86.73 Personal history of transient ischemic attack (TIA), and cerebral infarction without residual deficits; Z87.891 Personal history of nicotine dependence; Z79.82 Long term (current) use of aspirin; Z79.899 Other long term (current) drug therapy
CPT/HCPCS: 70490; 85025; 99284; A4216

== ENCOUNTER → 2023-12-24 | Outpatient (CLI) | payer MEDICARE, SELFPAY ==
--- NOTE | 2023-12-24 08:14 | CR.ITP_ITS ---
Diagnosis General Information Admitting Diagnosis: Non-STEMI, PCI w/coronary stenting Secondary Diagnosis: HTN, HLD, ESRD on Dialysis, Chronic HFpEF, Coronary artery disease Personal Learning Style:: Audio/Visual and Written Barriers to Learning: Hearing Impairment and Vision Impairment Stage of change r/t lifestyle modifications:: Action Gave educational material for:: Treating Heart Disease, How The Heart Works, What it means to have Heart Disease, How Coronary Artery Disease is Diagnosed, Heart Procedures, What Heart Medications Do, Risk Factors & Modifications, Living an Active Life, Nutrition, Emotions & Heart Disease, Stress Management & Relaxation and Sleep Disorders & Heart Disease Education/Goals Individual Counseling: Initial Assessment: Abnormal Cholesterol Levels, High Blood Pressure and Overweight/Obesity (Overweight BMI > 27) Cardiac Rehabilitation Goals Personal Goals: Initial Assessment: Improve muscle strength and endurance, Improve diet and eating habits (eat healthier) and Control risk factors (learn risk factor modification) Scale for measuring improvement of personal goals Diagnosis & Disease Process Outcomes/Goals: Pt IDs own risk factors & lifestyle modifications by Session 10, Verbalizes symptoms of angina & response by session 3. and Pt independently manages Plan/Interventions: Assist Pt to ID & engage in lifestyle modification to reduce CVD risk, Instruct on individual risk factors, Review symptoms of angina & emergency actions and Review secondary diagnosis & identify educational needs. Safety Referral to Physical Therapy: No Referral to [facility] Case Management: No Fall Risk Assessed:: Yes Assistive Devices:: None Exercise - Initial Assessment Visit Date of Eval: 12/24/23 Session #:: 0 (Pre-program evaluation) Mets: Pre-: >5 METS for 30 minutes by discharge Physician Prescribed Exercise Modalities: Treadmill, Airdyne and NuStep Frequency: 3x/week for 12 weeks [36 sessions] Intensity: 60-80% of age predicted maximum heart rate reserve Duration: 30 - 45 minutes Current METSs:: 3.0 Target Heart Rate:: 90-104 Resting Blood Pressure: 110/47 EKG Type: Accelerated Juntional Rythm RBBB with H/O PVCs. Outcomes & Goals Goals:: Verbalizes understanding of THR, RPE & goal METS by session 6, Documents in home exercise log/reports 30 min aerobic 5 day/wk by DC and Demonstrates accurate pulse taking by DC Intervention & Plan Exercise Program Goals: Instruct on personal THR & RPE, Instruct on MET level & personal MET goal, Show patient to take own pulse /validate performance until accurate and Instruct on home exercise Physical Activity Home Exercise Physical Activity - Home Exercise: Safe Exercise, Warm-up, Self-monitoring, Cool-Down, Home Exercise > 30 min Daily and Sitting Time <3 hours/daily Outcomes & Goals Outcomes/Goals: Demonstrates correct Warm-up/exercise Cool-Down (S3) if = 2.5 METs, Verbalizes symptoms of exercise intolerance by Session 3 (S3) and Demonstrate safe equipment use (S3) & follows exercise prescrition (6) Intervention & Plan Plan/Intervention: Instruct warm-up & cool-down if exercising at > 2 METs, Instruct on symptoms of exercise intolerance & actions to take, Instruct & monitor on saf and Assess intial functional capacity & safety risk Nutrition - Initial Assessment Program Goals Nutrition Program Goals Patient has diagnosis of Hyperlipidemia (ICD E78)?: Yes Visit Date of Eval: 12/24/23 Session #:: 0 (pre-program evaluation) Cholesterol/Lipids (Other Core Measures) Determine presence & major risk factors that modify LDL goal: Hypertension or hypertensive medication, Family history of premature CHD in Male < 55 years: female <65 yearsFa and Age men > 45 years; women >/= 55 years Outcomes/Goals: Pt IDs own risk factors & lifestyle modifications by Session 10, Verbalizes symptoms of angina & response by session 3. and Pt independently manages Intervention/Plan: Instruct on personal lipid levels & lipid goals/NCEP guidelines and Instruct on cholesterol Referral to dietitian:: Yes (Medical Nutrition Therapy) Diabetes (Other Core Measures) Diabetes Type: Not Applicable Weight Mgt (Other Care) Not Applicable: Yes Height: 5 ft 7 in Weight:: 176 lb BMI: 27.6 Diagnosis Overweight/Obesity BMI> 30% ICD-10 E66: No Diagnosis High BMI/Morbid Obesity BMI> 35% ICD-10 Z68: No Outcomes/Goals: Pt sets, maintains & shows weight loss goal & trend during rehab Intervention/Plan: Instruct on ideal BMI & set weight loss goal w/patient Healthy Eating Habits Will attend diet classes:: Yes Outcomes/Goals:: Consume diet rich in vegs,fruits,whole grain/high fiber,fish,lean meat and Limit sat/trans fats,cholesterol & added salts & sugars Intervention/Plan:: Assess current eating habits Education Gave educational materials for:: Healthy eating Core - Initial Assessment Visit Date of Eval: 12/24/23 Session #:: 0 (pre-program evaluation) Medication Compliance Preventative Medication(s):: Aspirin, TALHA inhibitor, Clopidogrel/P2Y12 inhibit, Statin/lipid and Beta ekaterina H/O mental health issues: depression, anxiety, or addiction?: No Doesn?t believe in the benefits of treatment?: No Believes medications are unnecessary or harmful?: No Has a concern about medication side effects?: No Expresses concern over the cost of medications?: No Outcomes/Goals: Verbalizes medications,desired effect & common side effects @ DC, Pt self-reports following medication regimen and Keeps card in wallet w/medications listed by DC Interventions/plans: Instruct on medication effects & side effects, Review medication list w/patient every two weeks and Instruct importance of taking meds as ordered & assist problem solving Tobacco Use Tobacco Use: Non-smoker Hypertension Hypertension Diagnosis:: Hypertension ICD-10 I10 Resting Blood Pressure:: 110/74 [place] [employer] Hypertension Guidelines Outcomes/Goals: Able to verbalize/achieve optimal blood pressure <130/80 and Incorporates diet changes & exercise for blood pressure control by DC Interventions/plan: Instruct on optimal blood pressure, hypertension & medications and Instruct on effects of sodium, alcohol, stress, exercise &hypertension Tobacco Cessation Referral Smoking Cessation Referral:: No Individual Education/Counseling:: No Education Schedule Given:: Yes Psychosocial - Initial Assess VIsit Date of Eval: 12/24/23 Session #:: 0 (pre-program evaluation) Not Applicable: Yes History of previous Mental disease:: No Target Goals Target Goals Psychosocial Test Tool Used:: [place]ster QOL Cardiac and PHQ-9 Questionnaire phq-9 Severity Referral to Behavioral Health PS - Interventions: Yes: Attend Stress Management Classes and No: Referral to Behavioral Health if PHQ-9 score >9:, No: Referral to [facility] and No: Referral to Physician if PHQ-9 if score is 5-9: Outcomes/Goals: See list Psychosocial Outcomes/Goals:: ID's personal stressors & 2 strategies to manage stress by discharge Intervention/Plan: See List Interventions/Plan:: Assess stressors,coping strategies & signs of derpression on admission, Instruct/assist pt to develop coping & personal stress Mgt strategies, Instruct patient to recognize signs & symptoms of depression and Instruct patient to recog Patient Health Questionnaire PHQ-9 Screening Initial Assessment: 1. Little interest or pleasure in doing things: Not at all 2. Feeling down, depressed, or hopeless: Not at all 3. Trouble falling or staying asleep, or sleeping too much: Several days 4. Feeling tired or having little energy: More than half the days 5. Poor appetite or overeating: More than half the days 6. Feeling bad about yourself -- or that you are a failure or have let yourself or your family down: Not at all 7. Trouble concentrating on things, such as reading the newspaper or watching television: Not at all 8. Moving or speaking so slowly that other people could have noticed. Or the opposite - being so fidgety or restless that you have been moving around a lot more than usual: Several days 9. Thoughts that you would be better off , or of hurting yourself in some way: Not at all Total Score: 6 DEBRA-Q SV Test Statements CAD is a disease of the arteries in the heart: True Examples of risk factors for heart disease: True Angina is chest pain or discomfort: I Don't Know The benefits of resistance training include: True Eating more meat and dairy products: False Anti-platelet medications such as aspirin are important: True The only effective way to manage stress: I Don't Know An exercise warm-up slowly increases heart rate: True Prepared, processed foods usually have high sodium: True Depression is common after a heart attack: True The statin medications lower cholesterol: True To control blood pressure, lower the amount of sodium: True If someone gets chest discomfort during walking: False Transfats are partially hydrogenated vegetable oils: True Sleep apnea that is not treated increases the risk: False To control cholesterol, one should become a vegetarian: I Don't Know Someone knows if he/she is exercising at the right level: False Diabetes cannot be prevented with exercise & health eating: False Stress is a large risk for heart attack: True A diet that can help lower blood pressure is rich in: True Total Score Total Correct Responses: 15 Self-Efficacy 6-Item Scale Initial Assessment: We would like to know how confident you are in doing certain activities. Please select your confidence level for: Fatigue Select Number: 8 Physical Discomfort or Pain Select Number: 8 Emotional Distress Select Number: 9 Other Symptoms or Health Problems Select Number: 9 Different Tasks and Activities Select Number: 8 Medication Select Number: 8 Total Score:: 8 Nutrition Survey Nutrition Survey Instructions Scoring Instructions Nutrition Survey Initial: Have you lost >10 lbs over the past 2 months without trying?: No Are you following a special diet at home for diabetes, low fat, or low salt?: No Are you interested in meeting with a dietitian for help understanding your diet?: No Do you eat less than 3 meals a day?: No Do you eat fatty meats (harris, sausage, ribs, etc), fried foods, desserts, large amounts of salad dressings, margarine, butter, or cheese most days?: Yes Do you have food allergies? [Enter types in comment field]: No Do you eat in restaurants more than 3 times a week?: No Do you season food with salt, seasoning salt, or garlic salt?: No Do you used canned, boxed, frozen meals, or soups, seasoning packets?: No Total Score:: 1 Exercise - Final/Discharge Physician Prescribed Exercise Modalities: Treadmill, Airdyne and NuStep Frequency: 3x/week for 12 weeks [36 sessions] Intensity: 60-80% of age predicted maximum heart rate reserve Current METSs:: 3.0 Target Heart Rate:: 90-104 Nutrition - 30-Day Assessment Weight Mgt (Other Care) Height: 5 ft 7 in Weight:: 176 lb BMI: 27.6 Nutrition - 60-Day Assessment Weight Mgt (Other Care) Height: 5 ft 7 in Weight:: 176 lb BMI: 27.6 Core - 30-Day Assessment Visit Session #:: 0 (Pre-program evaluation) Core - Final Assessment Hypertension Resting Blood Pressure:: 110/74 [place] [employer] Hypertension Guidelines Core - 60-Day Assessment Hypertension Resting Blood Pressure:: 110/74 [place] [employer] Hypertension Guidelines Psychosocial - 30-Day Assess Target Goals Target Goals Referral to Behavioral Health PS - Interventions: Yes: Attend Stress Management Classes and No: Referral to Behavioral Health if PHQ-9 score >9:, No: Referral to [facility] and No: Referral to Physician if PHQ-9 if score is 5-9: Psychosocial - 60-Day Assess Target Goals Target Goals Referral to Behavioral Health PS - Interventions: Yes: Attend Stress Management Classes and No: Referral to Behavioral Health if PHQ-9 score >9:, No: Referral to [facility] and No: Referral to Physician if PHQ-9 if score is 5-9: Psychosocial - 90-Day Assess Target Goals Target Goals Referral to Behavioral Health PS - Interventions: Yes: Attend Stress Management Classes and No: Referral to Behavioral Health if PHQ-9 score >9:, No: Referral to [facility] and No: Referral to Physician if PHQ-9 if score is 5-9: Psychosocial - Final Assessmen Target Goals Target Goals Referral to Behavioral Health PS - Interventions: Yes: Attend Stress Management Classes and No: Referral to Behavioral Health if PHQ-9 score >9:, No: Referral to [facility] and No: Referral to Physician if PHQ-9 if score is 5-9: Nutrition - 90-Day Assessment Weight Mgt (Other Care) Height: 5 ft 7 in Weight:: 176 lb BMI: 27.6 Nutrition - Final Assessment Program Goals Patient has diagnosis of Hyperlipidemia (ICD E78)?: Yes Weight Mgt (Other Care) Height: 5 ft 7 in Weight:: 176 lb BMI: 27.6
--- NOTE | 2023-12-24 08:14 | PCM.CR.HP2 ---
CR - History & Physical General Arrival date:: 12/24/23 Arrival time:: 08:00 Date of Referral:: 12/11/23 Date of CR Evaluation:: 12/24/23 Referring Physician: Dr. Arthur Camrichael Primary Diagnosis: PCI w/coroanry stenting History of Present Cardiac Event Onset Date Acute Myocardial Infarction within 12 months:: Yes (Non ST elevation myocardial infarction on 11/14/2023) PTCA or coronary stenting:: Yes Vessel: LAQUITA x 2 to Ost[place] of the LCX 11/19/2023, previous single LAQUITA in 2014 Heart or Heart-Lung Transplant:: No Heart Failure EF <35%:: Yes Type of Symptoms:: Chronic Congestive Heart Failure with preserved ejection fraction (HFpEF) Interventions with present event:: heart cath and stent placement in the same artery Were there any complications?: none Medications Ambulatory Orders ?Medication ?Instructions ?Recorded aspirin 81 mg tablet,delayed 81 mg PO DAILY 04/29/18 release (Adult Low Dose Aspirin) nitroglycerin 0.4 mg sublingual 0.4 mg sublingual X1 PRN CHEST PAIN 01/12/20 tablet atorvastatin 40 mg tablet 40 mg PO DAILY 11/24/20 amlodipine 10 mg tablet 5 mg PO DAILY 01/19/22 furosemide 80 mg tablet 40 mg PO DAILY 01/19/22 metoprolol tartrate 25 mg tablet 25 mg PO HS 01/19/22 metoprolol tartrate 50 mg tablet 50 mg PO DAILY 01/19/22 pantoprazole 40 mg tablet,delayed 40 mg PO DAILY 01/19/22 release amoxicillin 875 mg-potassium 875 mg PO Q12H #20 TABLETS 02/11/22 clavulanate 125 mg tablet clopidogrel 75 mg tablet (Plavix) 75 mg PO DAILY 12/24/23 metoprolol succinate 25 mg 25 mg PO DAILY 12/24/23 tablet,extended release 24 hr Allergies Allergies lisinopril Adverse Reaction (Verified 12/24/23 08:28) Other Sleep Disorder Evaluation Hx of Sleep Apnea: No Do you snore loudly (louder than talking or can be heard through closed doors)?: Yes Do you often feel tired/ fatigued/ sleepy during daytime?: Yes (Due to dialysis) Has anyone observed you stop breathing during sleep?: No History of Hypertension (for STOP score): Yes STOP Results: Positive Advanced Directives Advanced Directives Power of [employer]: Yes Living Will: Yes Advance Directives Information Provided: No Advance Directives on File: No Additional Comments:: unsure if he has a DNR or not. MOLST See MOLST form: No Past Medical History Covid-19 Screening Physicial Symptoms Fever: No Unexplained muscle aches: Yes Current respiratory symptoms: No Upper respiratory infections symptoms: No Gastro-intestinal symptoms: Yes (H/O GERD) Kkg-Lmiz-Olcikl symptoms: No Other Clinical Concerns Has tested positive for COVID-19 in last 30 days: No Exposure Risk Had contact w/person w/symptoms or Covid-19 (+) last 14 days: No Has High Risk Exposures ID'd by Health dept/Inf Control team: Yes Pertinent Comorbidities 65 years or older:: Yes Has a chronic lung disease or moderate to severe asthma:: No Has a serious heart condition:: Yes Immunocompromised:: Yes Severely obese (Body Mass Index of 40 or higher):: No Diabetic:: No Has chronic kidney disease undergoing dialysis:: Yes Has liver disease:: No Past Medical Illness Medical History Alcohol use Anemia Anemia CAD (coronary artery disease), [place]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 Cardiology follow-up encounter Chronic cough CKD (chronic kidney disease) stage 3, GFR 30-59 ml/min Dyslipidemia Esophageal reflux Former smoker Gastric reflux Hiatal hernia High cholesterol History of edema History of heart attack (~09/04/14) History of renal dialysis History of renal disease History of stress test History of ulceration Hoarseness Hyperparathyroidism Hypertension Hypertension Mild renal insufficiency Osteopenia determined by x-ray Recurrent inguinal hernia Recurrent inguinal hernia of right side without obstruction or gangrene Restless legs Screening for intestinal cancer TIA (transient ischemic attack) Ventral incisional hernia without obstruction or gangrene Wears glasses Past Surgical History Surgical History History of arteriovenostomy for renal dialysis (~01/2022) History of ventral hernia repair Hx of bilateral inguinal hernia repair Hx of colonoscopy (~12/17/13) Hx of heart artery stent Hx of parathyroidectomy Surgical History: noncontributory Family History Summary Family History Mother Colon cancer Father Colon cancer Myocardial infarction Brother Cancer Social History Smoking History Smoking Status: Former smoker Alcohol Use Alcohol Usage: Yes (1-2 drinks per week (liquor)) Substance Abuse Hx Substance Use: No Occupation Occupation (List type of work in comments):: Retired Hobbies, Recreation, Social Activities Hobbies: Sports (fishing, ) and Other ([employer] member) Recreational Activities: I am able to engage in most, but not all activities Social Environment Status Marital Status: Current Living Arrangements Living Environment:: Spouse Children How many children do you have?: 3 Do any of your children live nearby?: Yes (1 son does, other two boys live near [place]) Safety Do you feel safe in your surroundings?: Yes Assistance Do you need any assistance at home?: No Review of Systems Review of Systems Hints Review of Present Symptoms: Reports Shortness of Breath with Exertion, Dizziness/Lightheadedness (if bending over and standing to quickly, or standing to quickly.), Fatigue, Heart Arrhythmia/Irregularities (Premature Ventricular Contractions, RBBB, Accelerated Junctional Rhythm), Appetite - Normal and Sleep - Normal; Denies Shortness of Breath at Rest, Angina, Appetite - Special Diet or Sexual Changes Pain Is Patient Pain Free?: No Risk Factor Assessment Chief Complaint Chief Complaint: Patient presents to CR today following recent NSTMEI and PCI intervention @ [facility] Vital Signs Temperature: 97.8 F Respiratory Rate: 14 Pulse Ox: 93 Blood Pressure: 110/74 Pulse Pulse Rate: 62 Pulse Rhythm: Regular Hypertension How long have you been treated?: Since 2014 On medication(s)?: Yes Blood Pressure Sitting - Left Arm: 110/74 Diabetes Nutrition Referral for Diabetes: No Obesity Height: 5 ft 7 in Weight:: 176 lb Weight in Pounds: 176.0 lbs Weight Source: Stated by Patient Body Mass Index (BMI): 27.6 Nutritional Referral for Obesity: No Physical Inactivity Physical Inactivity: Recreational activity ([employer] ([employer])) Risk Stratification Risk Guidelines: Lowest Risk: Risk Factor for Smoking, Risk Factor for Dyslipidemia, Risk Factor for Diabetes, Risk Factor for Sedentary Lifestyle and Risk Factor for Depression and Moderate Risk: Risk Factor for Obesity For Smoking Smoking Risk Guidelines For Dyslipidemia Dyslipidemia Risk Guidelines For Diabetes Mellitus Diabetes Risk Guidelines For Obesity/Overweight Obesity/Overweight Risk Guidelines For Hypertension Hypertension Risk Guidelines For Sedentary Lifestyle Sedentary Lifestyle Risk Guidelines For Depression Depression Risk Guidelines Family History Family History Mother Colon cancer Father Colon cancer Myocardial infarction Brother Cancer Motivation Motivation to Participate On a scale of 1 to 10, how prepared are you to commit to attending program?: 10 What do you see as barriers to successfully being able to complete the program?: May be related to how I feel after dialysis on MWF What do you see as the benefits of succesfully completing the program? In other words, what do you hope to get out of participating in the program?: Getting healthier, be sure taking right medications, increase knowledge Are there issues you are dealing with that will interfere with completing the program?: no Do you have a spouse or signficant other, family or friends who will help support you to complete the program?: yes
[2023-12-24 08:33] VITALS: BP 110/47
[2023-12-24 08:37] VITALS: BP 110/74; BMI 27.6
[2023-12-24 08:42] VITALS: BP 110/74; PULSE 62; RESP 14; TEMP 36.6; O2SAT 93; BMI 27.6
== END | disposition home or self-care (01) ==
PROVIDERS: PCP Family Medicine; Referring Provider Internal Medicine Cardiovascular Disease; Visit Provider Internal Medicine Cardiovascular Disease
DX: Z95.5 Presence of coronary angioplasty implant and graft (principal)

== ENCOUNTER 2024-01-10 14:15 | Outpatient (RCR) | payer MEDICARE, SELFPAY ==
[2023-12-24 08:37] VITALS: BMI 27.6
== END 2024-01-10 23:59 ==
LOC: CR 14:15
PROVIDERS: PCP Family Medicine; Referring Provider Internal Medicine Cardiovascular Disease; Visit Provider Internal Medicine Cardiovascular Disease
DX: I25.2 Old myocardial infarction (principal); I50.9 Heart failure, unspecified
CPT/HCPCS: 93798

== ENCOUNTER 2024-01-15 14:15 | Outpatient (RCR) | payer MEDICARE, SELFPAY ==
[2023-12-24 08:37] VITALS: BMI 27.6
== END 2024-02-09 23:59 ==
LOC: CR 14:15
PROVIDERS: PCP Family Medicine; Referring Provider Internal Medicine Cardiovascular Disease; Visit Provider Internal Medicine Cardiovascular Disease
DX: I25.2 Old myocardial infarction (principal)
CPT/HCPCS: 93798

== ENCOUNTER 2024-02-16 23:48 | Emergency (ER) | payer MEDICARE, SELFPAY ==
[2023-12-24 08:37] VITALS: BMI 27.6
[2024-02-16 23:49] VITALS: BP 153/70; PULSE 68; RESP 20; TEMP 36.6; O2SAT 95; BMI 28.0
--- NOTE | 2024-02-17 00:15 | EKG12_ITS ---
Test Reason : CHEST PAIN Blood Pressure : / mmHG Vent. Rate : 069 BPM Atrial Rate : 069 BPM P-R Int : 208 ms QRS Dur : 148 ms QT Int : 444 ms P-R-T Axes : 006 -40 016 degrees QTc Int : 475 ms Normal sinus rhythm Left axis deviation Right bundle branch block Inferior infarct , age undetermined Abnormal ECG Confirmed by Moustapha Lanier ([id number]), magazine editor ANAHI LOO ([id number]) on 02/17/2024 2:10:39 PM Referred By: MARIAJOSE Confirmed By:Moustapha Lanier
--- NOTE | 2024-02-17 00:15 | RAD_ITS ---
EXAM: XR CHEST, 2 VIEWS CLINICAL INDICATION: CP TECHNIQUE: Frontal and lateral views of the chest. COMPARISON: January 13, 2018. FINDINGS: LUNGS AND PLEURAL SPACES: Unchanged fullness of the hilar regions. No pneumothorax. No effusion. HEART: Unremarkable. Cardiac silhouette not enlarged. MEDIASTINUM: No mediastinal or cardiac enlargement otherwise. BONES/JOINTS: Evidence of prior right acromioclavicular joint separation injury with elevation of the right distal clavicle relative to the acromion. Degenerative changes of the spine. No acute fracture. SOFT TISSUES: Unremarkable. VASCULATURE: Ectatic thoracic aortic arch with atherosclerotic calcifications. RAD/Chest PA and Lateral IMPRESSION: No acute cardiopulmonary disease. Electronically Signed: Alex Simpson MD at 2:21 EDT ,
[2024-02-17 00:43] LABS: Absolute Lymphocyte Count 1.11 X10^3/uL (0.83-4.51); Absolute Neutrophil Count 4.2 X10^3/uL (2.0-7.7); Basophil# 0.03 X10^3/uL; Basophil% 0.5 % (0-1); Eosinophil# 0.45 X10^3/uL; Eosinophils% 6.8 % (0-5); Hematocrit 32.3 % (40-54); Hemoglobin 10.2 g/dL (13.0-16.5); Lymphocyte # 1.11 X10^3/ul (0.83-4.51); Lymphocyte % 16.9 % (19-41); Mean Corp Hgb Conc 31.6 g/dL (32-36); Mean Corpuscular Hgb 30.7 pg (27.0-32.0); Mean Corpuscular Volume 97.3 fL (80-94); Mean Platelet Vol. 10.1 fl (6.2-12.0); Monocyte# 0.69 X10^3/uL; Monocyte% 10.5 % (0-10); NRBC Flagged by Analyzer 0 % (0-5); Neutrophil # 4.21 X10^3/uL (2.7-7.7); Neutrophil % 63.9 % (47-70); Platelet Count 161 K/mm3 (150-450); RBC Distribution Width CV 17.2 % (11.6-14.6); RBC Distribution Width SD 60.1 fl (35.1-43.9); Red Blood Count 3.32 M/mm3 (4.6-6.2); White Blood Count 6.6 K/mm3 (4.4-11.0)
[2024-02-17 00:48] VITALS: BP 145/60; PULSE 67; RESP 18; O2SAT 93
[2024-02-17 00:49] LABS: Anion Gap 9 (5-15); BUN 76 mg/dL (7-18); BUN/Creat Ratio 8.9 RATIO (10-20); Calcium,Total 9.3 mg/dL (8.5-10.1); Chloride 101 mmol/L (98-107); Creatinine, Serum 8.51 mg/dL (0.70-1.30); EST Glomerular Filtration Rate 6 mL/min (>60); Est Glom Filt Rate - Afr Amer 8 mL/min (>60); Estimated Creatinine Clearance 6.84 ml/min; Glucose 131 mg/dL (74-106); Magnesium 2.5 mg/dL (1.6-2.6); Phosphorus 5.3 mg/dL (2.5-4.9); Potassium 4.7 mmol/L (3.5-5.1); Sodium Level 138 mmol/L (136-145); Troponin-I HS 40 pg/mL (3.0-78.0)
[2024-02-17 01:00] VITALS: BP 155/62; PULSE 70; RESP 15; O2SAT 96
[2024-02-17 02:00] VITALS: BP 145/56; PULSE 67; RESP 16; TEMP 36.6; O2SAT 96
[2024-02-17 02:20] LABS: Troponin-I HS 51 pg/mL (3.0-78.0)
--- NOTE | 2024-02-17 02:24 | EX.ED.DYSGE1 ---
HPI History of Present Illness Chief Complaint: Chest Pain Informant: patient and spouse/S.O. Narrative Narrative: Patient is an 83-year-old male with past medical history of end-stage renal disease on dialysis as well as known coronary artery disease with 2 stents placed in November of this year and hypertension. He states that this evening he was getting ready to lay down for bed when he developed midsternal chest pain. He states that there was no associated nausea vomiting diaphoresis or shortness of breath with the pain. He states the pain did last for approximately 20 minutes and then spontaneously resolved. He reports that he had concerned that this was secondary to his heart or problem with his recent stents and therefore presents for evaluation [facility] Medical History Alcohol use History of renal disease Restless legs History of edema History of stress test Hypertension Anemia History of renal dialysis Wears glasses High cholesterol History of ulceration Gastric reflux Former smoker Hoarseness Chronic cough Cardiology follow-up encounter Ventral incisional hernia without obstruction or gangrene Screening for intestinal cancer Osteopenia determined by x-ray Hyperparathyroidism Recurrent inguinal hernia of right side without obstruction or gangrene Recurrent inguinal hernia TIA (transient ischemic attack) Mild renal insufficiency Esophageal reflux Dyslipidemia Hiatal hernia CKD (chronic kidney disease) stage 3, GFR 30-59 ml/min CAD (coronary artery disease), [place]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 Anemia History of heart attack (~09/04/14) Hypertension Home Medications ?Medication ?Instructions ?Recorded ?Last Taken ?Type aspirin 81 mg tablet,delayed 81 mg PO DAILY 04/29/18 05/20/18 07:00 History release (Adult Low Dose Aspirin) nitroglycerin 0.4 mg sublingual 0.4 mg sublingual X1 PRN CHEST PAIN 01/12/20 Unknown History tablet atorvastatin 40 mg tablet 40 mg PO QHS 11/24/20 Unknown History amlodipine 10 mg tablet 5 mg PO DAILY 01/19/22 02/08/22 06:30 History furosemide 80 mg tablet 40 mg PO DAILY 01/19/22 Unknown History pantoprazole 40 mg tablet,delayed 40 mg PO DAILY 01/19/22 02/08/22 06:30 History release clopidogrel 75 mg tablet (Plavix) 75 mg PO DAILY 12/24/23 Unknown History metoprolol succinate 25 mg 25 mg PO DAILY 12/24/23 Unknown History tablet,extended release 24 hr calcium acetate(phosphat bind) 667 1,334 mg PO TIDCM 02/17/24 Unknown History mg capsule Allergy/AdvReac Type Severity Reaction Status Date / Time lisinopril AdvReac Other Verified 12/24/23 08:28 Family History Mother Colon cancer Father Colon cancer Myocardial infarction Brother Cancer Surgical History History of arteriovenostomy for renal dialysis (~01/2022) History of ventral hernia repair Hx of bilateral inguinal hernia repair Hx of colonoscopy (~12/17/13) Hx of heart artery stent Hx of parathyroidectomy Social History Smoking Status: Former smoker second hand exposure: No alcohol intake: current alcohol intake frequency: a few times a month substance use type: does not use caffeine: Yes what type of physical activity do you participate in: none seatbelt use: always ROS ROS ED Constitutional Constitutional ED: Denies chills or fever(s) ENT ENT ED: Denies sore throat Cardiovascular Cardiovascular: Reports chest pain; Denies palpitations or racing heartbeat Respiratory/Chest Respiratory/Chest: Denies cough or dyspnea Gastrointestinal Gastrointestinal: Denies abdominal pain, diarrhea, nausea or vomiting Musculoskeletal Musculoskeletal: Denies myalgias Integumentary Denies rash Neurologic Neurologic: Denies headache(s) Hematologic/Lymphatic Hematologic/Lymphatic: Reports easy bleeding and easy bruising EXAM Physical Exam Const Vital Signs: 02/16/24 23:49 02/17/24 00:03 02/17/24 00:48 Temperature 98 F Temperature Source Oral Pulse Rate 68 67 Respiratory Rate 20 H 18 Respiratory Effort Normal Non-Labored Blood Pressure 153/70 H 145/60 H Blood Pressure Mean 97 88 Pulse Ox 95 93 Oxygen Delivery Method Room Air 02/17/24 01:00 02/17/24 02:00 02/17/24 02:30 Temperature 98 F 98.1 F Temperature Source Oral Pulse Rate 70 67 67 Respiratory Rate 15 16 16 Respiratory Effort Blood Pressure 155/62 H 145/56 H 145/63 H Blood Pressure Mean 93 85 90 Pulse Ox 96 96 94 Oxygen Delivery Method Room Air Room Air Positive well nourished and well developed General Appearance ED: well developed; Negative for pallor HEENT HEENT Narrative: Normocephalic atraumatic Eyes PERRL and EOMs intact bilaterally General Eye ED: Negative for scleral icterus Neck supple Neck Narrative: No carotid bruit noted Chest Wall palpation of chest normal Chest Narrative: No bony deformity or crepitance or pain with palpation of the chest wall Resp normal respiratory effort and clear to auscultation bilaterally Cardio regular rate and regular rhythm Rate: other Other Details: Heart is regular rate and rhythm with a grade 4 out of 6 holosystolic murmur GI normal to inspection, nondistended, normoactive bowel sounds, non-tender, non-distended and no masses GI Narrative: No voluntary guarding or rigidity or pulsatile mass No peritoneal signs Auscultation: normoactive bowel sounds Palpation: soft Extremity Extremity Narrative: Patient has a fistula in place in the left forearm with palpable thrill and good bruit Otherwise exam is normal Neuro oriented x3, CN's II-XII intact bilaterally and no sensory deficits noted Sensorium / Orientation: alert Motor Exam: strength 5/5 throughout Psych mental status grossly normal Skin no rashes or lesions noted General Skin Exam: Negative for jaundice or pallor MDM MDM MDM Narrative Medical decision making narrative: Patient arrived to the ER hypertensive but otherwise with stable vitals and reported spontaneous resolution of his symptoms. With patient having known CAD and 2 recent stents placed there is concern this is acute coronary syndrome versus non-STEMI versus electrolyte abnormality versus Prinzmetal's angina. Secondary to this basic labs and a chest x-ray were obtained. The patient's EKG revealed sinus rhythm with right bundle branch block but no signs of ischemia or STEMI. Initial troponin was 40 and delta troponin increased by a value of 11 to 51 which is below the clinically significant cutoff value of a 20 point elevation. The patient's chest x-ray revealed no acute lung pathology as the cause of his symptoms such as pneumonia pneumothorax or mass. On reevaluation he is resting comfortably and patient reports he has been pain-free since his arrival to the ER. Therefore at this time with patient having spontaneous resolution of his chest pain and overall negative workup I do not feel there is need for further evaluation in the hospital and he is otherwise safe for discharge History & Record Review Discussion w/independent historian: Patient and Significant other Lab Data Attestation: I reviewed the patient's lab results. Labs: Laboratory Results - last 24 hr 02/17/24 02/17/24 00:00 01:55 WBC 6.6 RBC 3.32 L Hgb 10.2 L Hct 32.3 L MCV 97.3 H MCH 30.7 MCHC 31.6 L RDW Std Deviation 60.1 H RDW Coeff of Horacio 17.2 H Plt Count 161 MPV 10.1 Immature Gran % (Auto) 1.400 H Neut % (Auto) 63.9 Lymph % (Auto) 16.9 L [place] % (Auto) 10.5 H Eos % (Auto) 6.8 H Baso % (Auto) 0.5 Absolute Neuts (auto) 4.2 Absolute Lymphs (auto) 1.11 Nucleated RBC % 0 Sodium 138 Potassium 4.7 Chloride 101 Carbon Dioxide 28.0 Anion Gap 9 BUN 76 H Creatinine 8.51 H* Estim Creat Clear Calc 6.84 Est GFR (MDRD) Af Amer 8 L Est GFR (MDRD) Non-Af 6 L BUN/Creatinine Ratio 8.9 L Glucose 131 H Calcium 9.3 Phosphorus 5.3 H Magnesium 2.5 Troponin I High Sens 40 51 Radiography Diagnostic Testing: Clinical Impression(s) from Imaging Studies Chest X-Ray 02/17/24 00:15 IMPRESSION: No acute cardiopulmonary disease. Electronically Signed: Alex Simpson MD at 2:21 EDT , 2 view chest x-ray as interpreted by the emergency medicine physician reveals no acute infiltrate pneumothorax pleural effusion or widening of the mediastinum Discharge Plan Triage Chief Complaint: Chest Pain ED Provider: Alex Ybarra Dx/Rx/DC Orders Clinical Impression: Nonspecific chest pain, End stage renal disease on dialysis, CAD (coronary artery disease), Hypertension Instructions: CAD, ED Chest Pain, Uncertain Cause Prescriptions: No Action aspirin [Adult Low Dose Aspirin] 81 mg tablet,delayed release (DR/EC) 81 mg PO DAILY atorvastatin 40 mg tablet 40 mg PO QHS amlodipine 10 mg tablet 5 mg PO DAILY furosemide 80 mg tablet 40 mg PO DAILY pantoprazole 40 mg tablet,delayed release (DR/EC) 40 mg PO DAILY nitroglycerin 0.4 MG tablet, sublingual 0.4 mg SL X1 PRN (Reason: CHEST PAIN) clopidogrel [Plavix] 75 mg tablet 75 mg PO DAILY metoprolol succinate 25 mg tablet extended release 24 hr 25 mg PO DAILY calcium acetate(phosphat bind) 667 mg capsule 1,334 mg PO TIDCM Primary Care Provider: Julio Licea Referrals: Julio Licea MD [Primary Care Provider] - Activity Restrictions/Additional Instructions: Please follow-up with your family doctor and/or laundry laborer for repeat evaluation and continue all of your home medications as directed by your doctor. Return to the ER should you have any further concerns Print Language: Luxembourger Disposition Disposition: Home, Self Care Discharge Date/Time: 02/17/24 02:35
[2024-02-17 02:30] VITALS: BP 145/63; PULSE 67; RESP 16; TEMP 36.7; O2SAT 94
== END 2024-02-17 02:35 | disposition home or self-care (01) ==
LOC: ED 02-17 00:32
PROVIDERS: Emergency Provider Emergency Medicine; PCP Family Medicine; Visit Provider Emergency Medicine
DX: R07.9 Chest pain, unspecified (principal); I12.0 Hypertensive chronic kidney disease with stage 5 chronic kidney disease or end stage renal disease; N18.6 End stage renal disease; I25.10 Atherosclerotic heart disease of native coronary artery without angina pectoris; E78.00 Pure hypercholesterolemia, unspecified; Z99.2 Dependence on renal dialysis; Z79.82 Long term (current) use of aspirin; Z79.899 Other long term (current) drug therapy; Z87.891 Personal history of nicotine dependence; Z95.5 Presence of coronary angioplasty implant and graft
CPT/HCPCS: 71046; 80048; 83735; 84100; 84484; 85025; 93005; 99282; A4216

== ENCOUNTER 2024-02-23 23:39 | Emergency (ER) | payer MEDICARE, SELFPAY ==
[2023-12-24 08:37] VITALS: BMI 27.6
[2024-02-23 23:40] VITALS: PULSE 78; RESP 16; TEMP 36.3; O2SAT 95; BMI 27.4
--- NOTE | 2024-02-23 23:53 | EKG12_ITS ---
Test Reason : CP Blood Pressure : / mmHG Vent. Rate : 075 BPM Atrial Rate : 075 BPM P-R Int : 208 ms QRS Dur : 148 ms QT Int : 428 ms P-R-T Axes : 054 -46 053 degrees QTc Int : 477 ms Normal sinus rhythm Right bundle branch block Left anterior fascicular block Bifascicular block Inferior infarct (cited on or before 16-FEB-2024) Abnormal ECG Confirmed by JOHNNY WATT, MARGI ([id number]), editor greeting card IAN MONIQUE ([id number]) on 02/26/2024 9:51:21 AM Referred By: ED Confirmed By:KEVON TURNER MD
[2024-02-23 23:55] VITALS: O2SAT 95
--- NOTE | 2024-02-23 23:55 | ED.VIS.CHEST ---
HPI History of Present Illness Chief Complaint: Chest Pain Informant: patient and spouse/S.O. Narrative Narrative: 83-year-old male history of coronary artery disease and end-stage renal disease on dialysis presenting to the emergency room with a chief complaint of chest pain. Patient states that approximately 2200 hrs. he was laying down got upstairs and lay down in bed. He states he developed pain on the left side of his chest going into his back. It has been constant since. states that they were seen in the emergency room last Saturday for chest pain and discharged home. She spoke with her residential roofer helper who prescribed isosorbide nitrates and he began that 2 days ago. This evening at approximately 2200 hrs. she gave him a nitroglycerin sublingual which she states burnt my tongue. It did not relieve his pain. He denies any shortness of breath sweating nausea or vomiting. In November of this year he had 2 stents placed to an unknown artery at [facility]. He states at that time he had pain in his jaw and his chest. He was seen at [place] and transferred to [place]. Unfortunately the card that he carries with his stent information does not tell me the arteries that they were placed in. At least on the medication list him seen he does not have Plavix or anticoagulant. He does take baby aspirin a day. [facility] Medical History Alcohol use History of renal disease Restless legs History of edema History of stress test Hypertension Anemia History of renal dialysis Wears glasses High cholesterol History of ulceration Gastric reflux Former smoker Hoarseness Chronic cough Cardiology follow-up encounter Ventral incisional hernia without obstruction or gangrene Screening for intestinal cancer Osteopenia determined by x-ray Hyperparathyroidism Recurrent inguinal hernia of right side without obstruction or gangrene Recurrent inguinal hernia TIA (transient ischemic attack) Mild renal insufficiency Esophageal reflux Dyslipidemia Hiatal hernia CKD (chronic kidney disease) stage 3, GFR 30-59 ml/min CAD (coronary artery disease), [place]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 Anemia History of heart attack (~09/04/14) Hypertension Home Medications ?Medication ?Instructions ?Recorded ?Last Taken ?Type aspirin 81 mg tablet,delayed 81 mg PO DAILY 04/29/18 05/20/18 07:00 History release (Adult Low Dose Aspirin) nitroglycerin 0.4 mg sublingual 0.4 mg sublingual X1 PRN CHEST PAIN 01/12/20 Unknown History tablet atorvastatin 40 mg tablet 40 mg PO QHS 11/24/20 Unknown History pantoprazole 40 mg tablet,delayed 40 mg PO DAILY 01/19/22 02/08/22 06:30 History release metoprolol succinate 25 mg 25 mg PO DAILY 12/24/23 Unknown History tablet,extended release 24 hr calcium acetate(phosphat bind) 667 667 mg PO TIDCM 02/17/24 Unknown History mg capsule amlodipine 5 mg tablet 5 mg PO DAILY 02/23/24 Unknown History furosemide 40 mg tablet 40 mg PO DAILY 02/23/24 Unknown History isosorbide mononitrate 30 mg 30 mg PO DAILY 02/23/24 Unknown History tablet,extended release 24 hr Allergy/AdvReac Type Severity Reaction Status Date / Time lisinopril AdvReac Other Verified 02/23/24 23:40 Family History Mother Colon cancer Father Colon cancer Myocardial infarction Brother Cancer Surgical History History of arteriovenostomy for renal dialysis (~01/2022) History of ventral hernia repair Hx of colonoscopy (~12/17/13) Hx of parathyroidectomy Hx of bilateral inguinal hernia repair Hx of heart artery stent Social History Smoking Status: Former smoker second hand exposure: No alcohol intake: current alcohol intake frequency: a few times a month substance use type: does not use caffeine: Yes what type of physical activity do you participate in: none seatbelt use: always ROS ROS ED Constitutional Constitutional ED: Denies chills, fever(s) or weight loss Eyes Eyes: Denies change in vision or diplopia ENT ENT ED: Denies ear pain, rhinorrhea or sore throat Cardiovascular Cardiovascular: Reports as per HPI and chest pain; Denies orthopnea, palpitations or racing heartbeat Respiratory/Chest Respiratory/Chest: Denies cough, dyspnea or orthopnea Gastrointestinal Gastrointestinal: Denies abdominal pain, diarrhea, nausea or vomiting Genitourinary Genitourinary ED: Denies dysuria, hematuria or urinary frequency Musculoskeletal Musculoskeletal: Reports back pain; Denies arthralgias, myalgias or neck pain Integumentary Denies abscess or rash Neurologic Neurologic: Denies headache(s) or weakness Psychiatric Psychiatric: Denies anxiety, depression, suicidal ideation or suicidal thoughts Endocrine Endocrinology: Denies polydipsia, polyphagia or polyuria Allergic/Immunologic Allergic/Immunologic ED: Denies mouth swelling, tongue swelling or urticaria EXAM Physical Exam Const Vital Signs: 02/23/24 23:40 02/23/24 23:55 02/24/24 00:11 Temperature 97.3 F L Temperature Source Temporal Pulse Rate 78 76 Respiratory Rate 16 Blood Pressure 155/69 H Blood Pressure Mean Blood Pressure Source Pulse Ox 95 95 Oxygen Delivery Method Room Air Oxygen Flow Rate (L/min) 02/24/24 00:16 02/24/24 00:21 02/24/24 00:40 Temperature Temperature Source Pulse Rate 88 92 80 Respiratory Rate 20 H Blood Pressure 148/79 H 145/74 H 158/71 H Blood Pressure Mean 100 Blood Pressure Source Pulse Ox 94 Oxygen Delivery Method Room Air Oxygen Flow Rate (L/min) 02/24/24 01:00 02/24/24 02:00 02/24/24 02:19 Temperature Temperature Source Pulse Rate 69 82 82 Respiratory Rate 16 16 Blood Pressure 157/70 H 159/64 H 141/65 H Blood Pressure Mean 99 95 90 Blood Pressure Source Monitor Pulse Ox 94 92 Oxygen Delivery Method Room Air Room Air Oxygen Flow Rate (L/min) 02/24/24 02:50 02/24/24 03:00 Temperature Temperature Source Pulse Rate 89 Respiratory Rate 16 Blood Pressure 147/71 H 156/72 H Blood Pressure Mean 96 100 Blood Pressure Source Monitor Pulse Ox 97 Oxygen Delivery Method Nasal Cannula Oxygen Flow Rate (L/min) 2 Positive well nourished and well developed General Appearance ED: well developed HEENT Reports normocephalic, head/scalp atraumatic and moist mucous membranes Eyes PERRL and EOMs intact bilaterally Neck no lymphadenopathy, supple and no JVD Resp normal respiratory effort and clear to auscultation bilaterally Cardio regular rate, regular rhythm and no murmurs GI normal to inspection, nondistended, normoactive bowel sounds and non-tender Palpation: soft Back/Spine no CVA tenderness and normal ROM Extremity normal to inspection General Extremety ED: Negative for edema General Extremity: Negative for edema Neuro oriented x3 and CN's II-XII intact bilaterally Sensorium / Orientation: alert Motor Exam: strength 5/5 throughout Psych mental status grossly normal Mood & Affect: Negative for depressed or tearful Skin no rashes or lesions noted and no wounds MDM MDM MDM Narrative Medical decision making narrative: Differential diagnosis includes but not limited to acute coronary syndrome, pericarditis myocarditis, musculoskeletal chest pain, esophageal spasm pulmonary embolism pneumothorax pleural effusion pneumonia aortic dissection aneurysm Initial EKG was concerning given the ST changes V3 through V6. My independent interpretation of the chest x-ray is no acute process. Sublingual nitro did not relieve his pain. He received full-strength aspirin. White count 7.0 hemoglobin 10.1 platelet count of 172. Coags were obtained and were normal. Creatinine 8.35 troponin initially 129 delta troponin 194. 3 EKGs were performed which continue to show the ST segment changes laterally V3 through V6. These EKGs were discussed with our on-call interventional list Dr. Maria. He recommended nitroglycerin drip and heparin drip. Patient also received a dose of Dilaudid. Patient became pain-free. I spoke with the patient and his . They would like to be transferred to [facility] where his residential roofer helper is at. I spoke with the [facility] transfer line. I discussed the case with Dr. Templeton. He is requesting that the nitroglycerin drip be discontinued and he be changed to nitroglycerin paste. History & Record Review Discussion w/independent historian: Patient and Significant other Lab Data Attestation: I reviewed the patient's lab results. Labs: Laboratory Results - last 24 hr 02/23/24 02/24/24 23:49 01:55 WBC 7.0 RBC 3.42 L Hgb 10.1 L Hct 32.7 L MCV 95.6 H MCH 29.5 MCHC 30.9 L RDW Std Deviation 56.9 H RDW Coeff of Horacio 16.3 H Plt Count 172 MPV 10.6 Immature Gran % (Auto) 0.400 Neut % (Auto) 63.3 Lymph % (Auto) 20.4 [place] % (Auto) 10.9 H Eos % (Auto) 4.4 Baso % (Auto) 0.6 Absolute Neuts (auto) 4.4 Absolute Lymphs (auto) 1.42 Nucleated RBC % 0 PT 14.5 14.0 INR 1.1 1.1 APTT 27.0 28.6 Sodium 136 Potassium 5.0 Chloride 99 Carbon Dioxide 25.0 Anion Gap 12 BUN 74 H Creatinine 8.35 H* Estim Creat Clear Calc 6.89 Est GFR (MDRD) Af Amer 8 L Est GFR (MDRD) Non-Af 7 L BUN/Creatinine Ratio 8.9 L Glucose 119 H Calcium 9.7 Magnesium 2.4 Troponin I High Sens 129 H* 194 H* Radiography Diagnostic Testing: Clinical Impression(s) from Imaging Studies Chest X-Ray 02/23/24 23:59 IMPRESSION: No acute pulmonary finding. Electronically Signed: Jimenez Goyal MD at 1:04 EDT , EKG Initial EKG: Attestation: I personally reviewed and interpreted this EKG as follows: Interpretation: Sinus Rhythm Comments: Normal sinus rhythm with a ventricular rate of 75 bpm. There is right bundle branch block noted. There appears ST depression V3 through V6. This does appear different from EKG dated February 16, 2024. ST depression of about 1-2 blocks. Management Discussion w/another healthcare provider: Chief Engineer Research ([facility] Cardiology (Dr. Maria)) Critical Care Time Critical Care Time: Yes Critical care time (excluding procedures): 30-74 minutes (35 min), Including time spent:, Discussing w/Patient &/or Family/Trial Attorney, Discussing w/Consultants, Arranging Admission or Transfer and Performing Direct Patient Care at Bedside Discharge Plan Triage Chief Complaint: Chest Pain ED Provider: Edouard Manuel Dx/Rx/DC Orders Clinical Impression: ACS (acute coronary syndrome), Hypertension Prescriptions: No Action aspirin [Adult Low Dose Aspirin] 81 mg tablet,delayed release (DR/EC) 81 mg PO DAILY atorvastatin 40 mg tablet 40 mg PO QHS pantoprazole 40 mg tablet,delayed release (DR/EC) 40 mg PO DAILY nitroglycerin 0.4 MG tablet, sublingual 0.4 mg SL X1 PRN (Reason: CHEST PAIN) isosorbide mononitrate 30 mg tablet extended release 24 hr 30 mg PO DAILY amlodipine 5 mg tablet 5 mg PO DAILY furosemide 40 mg tablet 40 mg PO DAILY metoprolol succinate 25 mg tablet extended release 24 hr 25 mg PO DAILY calcium acetate(phosphat bind) 667 mg capsule 667 mg PO TIDCM Primary Care Provider: Julio Licea Referrals: Julio Licea MD [Primary Care Provider] - Print Language: Mohawk Disposition Disposition: Acute Care Hospital Discharge Location: [facility]
--- NOTE | 2024-02-23 23:59 | RAD_ITS ---
INDICATION: chest pain EXAMINATION/TECHNIQUE: X-RAY - XR Chest 1 View COMPARISON: No relevant prior comparison study available 02/17/2024 FINDINGS: LINES/DEVICES: Cardiac leads overlie the chest. LUNGS: The lungs are well expanded. No consolidation, edema or effusion. No pneumothorax. MEDIASTINUM AND CARDIOVASCULAR STRUCTURES: Cardiac silhouette not enlarged. Aortic calcifications. Central airways and mediastinal contour are unremarkable. BONES AND SOFT TISSUES: No acute abnormality. RAD/Chest 1 View (Portable) IMPRESSION: No acute pulmonary finding. Electronically Signed: Jimenez Goyal MD at 1:04 EDT ,
[2024-02-24] VITALS (13 sets, daily range): BP systolic 139–159; BP diastolic 64–87; PULSE 69–92; RESP 15–20; TEMP 36.3; O2SAT 92–97
[2024-02-24] MEDS: Aspirin 81 MG TAB.CHEW 324 MG PO (00:01)
[2024-02-24] MEDS: Nitroglycerin SL (ED/IMG/CATH) 0.4 MG TABLET SL ×3 (00:11→00:21)
[2024-02-24 00:17] LABS: Absolute Lymphocyte Count 1.42 X10^3/uL (0.83-4.51); Absolute Neutrophil Count 4.4 X10^3/uL (2.0-7.7); Basophil# 0.04 X10^3/uL; Basophil% 0.6 % (0-1); Eosinophil# 0.31 X10^3/uL; Eosinophils% 4.4 % (0-5); Hematocrit 32.7 % (40-54); Hemoglobin 10.1 g/dL (13.0-16.5); Lymphocyte # 1.42 X10^3/ul (0.83-4.51); Lymphocyte % 20.4 % (19-41); Mean Corp Hgb Conc 30.9 g/dL (32-36); Mean Corpuscular Hgb 29.5 pg (27.0-32.0); Mean Corpuscular Volume 95.6 fL (80-94); Mean Platelet Vol. 10.6 fl (6.2-12.0); Monocyte# 0.76 X10^3/uL; Monocyte% 10.9 % (0-10); NRBC Flagged by Analyzer 0 % (0-5); Neutrophil # 4.41 X10^3/uL (2.7-7.7); Neutrophil % 63.3 % (47-70); Platelet Count 172 K/mm3 (150-450); RBC Distribution Width CV 16.3 % (11.6-14.6); RBC Distribution Width SD 56.9 fl (35.1-43.9); Red Blood Count 3.42 M/mm3 (4.6-6.2)
[2024-02-24] MEDS: 0.9% Normal Saline (1000mL) 1,000 ML 150 ML IV (00:23)
[2024-02-24 00:29] LABS: International Normalized Ratio 1.1; Prothrombin Time (Protime)PT. 14.5 SECONDS (11.7-14.9)
--- NOTE | 2024-02-24 00:40 | EKG12_ITS ---
Test Reason : REPEAT Blood Pressure : / mmHG Vent. Rate : 084 BPM Atrial Rate : 084 BPM P-R Int : 206 ms QRS Dur : 148 ms QT Int : 412 ms P-R-T Axes : 034 -57 041 degrees QTc Int : 486 ms Normal sinus rhythm with sinus arrhythmia Right bundle branch block Left anterior fascicular block Bifascicular block Inferior infarct , age undetermined Abnormal ECG Confirmed by JOHNNY WATT, MARGI ([id number]), editor publications IAN MONIQUE ([id number]) on 02/26/2024 9:51:37 AM Referred By: Confirmed By:KEVON TURNER MD
[2024-02-24 00:44] LABS: Anion Gap 12 (5-15); BUN 74 mg/dL (7-18); BUN/Creat Ratio 8.9 RATIO (10-20); Calcium,Total 9.7 mg/dL (8.5-10.1); Chloride 99 mmol/L (98-107); Creatinine, Serum 8.35 mg/dL (0.70-1.30); EST Glomerular Filtration Rate 7 mL/min (>60); Est Glom Filt Rate - Afr Amer 8 mL/min (>60); Estimated Creatinine Clearance 6.89 ml/min; Glucose 119 mg/dL (74-106); Magnesium 2.4 mg/dL (1.6-2.6); Sodium Level 136 mmol/L (136-145); Troponin-I HS (w/2H Reflex) 129 pg/mL (3.0-78.0)
[2024-02-24] MEDS: Ondansetron 4 MG/2 ML Vial IV ×2 (01:15→05:08)
[2024-02-24] MEDS: Morphine 4 MG/ML Syringe IV (01:15)
--- NOTE | 2024-02-24 01:40 | EKG12_ITS ---
Test Reason : REPEAT Blood Pressure : / mmHG Vent. Rate : 076 BPM Atrial Rate : 076 BPM P-R Int : 204 ms QRS Dur : 150 ms QT Int : 434 ms P-R-T Axes : 051 -50 050 degrees QTc Int : 488 ms Sinus rhythm with Premature atrial complexes Right bundle branch block Left anterior fascicular block Bifascicular block Inferior infarct , age undetermined Abnormal ECG Confirmed by JOHNNY WATT, MARGI ([id number]), social media editor IAN MONIQUE ([id number]) on 02/26/2024 9:51:51 AM Referred By: ED Confirmed By:KEVON TURNER MD
[2024-02-24 01:55] LABS: Reflex Troponin-HS? (from REC) Y
[2024-02-24] MEDS: HYDROmorphone 1 MG/ML Syringe IV (02:18)
[2024-02-24] MEDS: Nitroglycerin Infusion 250 ML 3 MG CONT INF (02:19)
[2024-02-24] MEDS: Heparin Injection (Vial) 5,000 UNIT/ML VIAL 4000 UNIT IV (02:28)
[2024-02-24] MEDS: HEPARIN/D5w 25,000 UNITS 25,000 UNITS/250 ML IV.SOLN. 9 UNITS CONT INF (02:30)
[2024-02-24 02:48] LABS: International Normalized Ratio 1.1; Partial Thromboplast Time 28.6 Seconds (24.1-36.2)
[2024-02-24 03:14] LABS: Troponin-I HS 194 pg/mL (3.0-78.0)
[2024-02-24] MEDS: Nitroglycerin Oint 1 INCH PACKET TD (03:54)
== END 2024-02-24 05:26 | disposition short-term general hospital (02) ==
PROVIDERS: Emergency Provider Emergency Medicine; PCP Family Medicine; Visit Provider Emergency Medicine
DX: I24.9 Acute ischemic heart disease, unspecified (principal); I12.0 Hypertensive chronic kidney disease with stage 5 chronic kidney disease or end stage renal disease; N18.6 End stage renal disease; I25.10 Atherosclerotic heart disease of native coronary artery without angina pectoris; E78.00 Pure hypercholesterolemia, unspecified; I25.2 Old myocardial infarction; Z99.2 Dependence on renal dialysis; Z79.82 Long term (current) use of aspirin; Z79.899 Other long term (current) drug therapy; Z87.891 Personal history of nicotine dependence; Z95.5 Presence of coronary angioplasty implant and graft; Z86.73 Personal history of transient ischemic attack (TIA), and cerebral infarction without residual deficits
CPT/HCPCS: 71045; 80048; 83735; 84484; 85025; 85610; 85730; 93005; 96365; 96366; 96367; 96375; 96376; 99285; J7030; A4216; J2405

== ENCOUNTER 2024-07-22 12:11 | Emergency (ER) | payer MEDICARE, SELFPAY ==
[2023-12-24 08:37] VITALS: BMI 27.6
[2024-07-22] VITALS (15 sets, daily range): BP systolic 116–156; BP diastolic 55–74; PULSE 61–77; RESP 10–18; TEMP 36.4–36.6; O2SAT 95–99; BMI 27.2
--- NOTE | 2024-07-22 13:28 | EKG12_ITS ---
Test Reason : CP Blood Pressure : */* mmHG Vent. Rate : 63 BPM Atrial Rate : 63 BPM P-R Int : 228 ms QRS Dur : 158 ms QT Int : 494 ms P-R-T Axes : 12 -30 -1 degrees QTcB Int : 505 ms Sinus rhythm with 1st degree A-V block Left axis deviation Right bundle branch block Abnormal ECG Confirmed by JOHNNY WATT, MARGI ([id number]), assignment editor ANAHI LOO ([id number]) on 07/29/2024 2:10:23 P M Referred By: Confirmed By: MARGI TURNER MD
--- NOTE | 2024-07-22 13:29 | EDS_ITS ---
HPI History of Present Illness Chief Complaint: Chest Pain Informant: patient, spouse/S.O. and EMS Narrative Narrative: This is 83-year-old male history of end-stage renal disease on dialysis coronary artery disease presenting to the emergency room following episode of hypotension with chest pain. Patient states that he was at the very end of his dialysis treatment with only a few minutes left when his blood pressure dropped with a systolic in the 70s. Normal he states that his neck he developed a left-sided chest discomfort radiating towards the side. He notes that it lasted only a few minutes and resolved. He had reoccurrence a few minutes later manage is not a medication for the symptoms since. He notes his blood pressure has now normalized. He sees cardiology at [facility]. He had balloon angioplasty reportedly in January and February followed by stent placement in April. [facility] Medical History Alcohol use History of renal disease Restless legs History of edema History of stress test Hypertension Anemia History of renal dialysis Wears glasses High cholesterol History of ulceration Gastric reflux Former smoker Hoarseness Chronic cough Cardiology follow-up encounter Ventral incisional hernia without obstruction or gangrene Screening for intestinal cancer Osteopenia determined by x-ray Hyperparathyroidism Recurrent inguinal hernia of right side without obstruction or gangrene Recurrent inguinal hernia TIA (transient ischemic attack) Mild renal insufficiency Esophageal reflux Dyslipidemia Hiatal hernia CKD (chronic kidney disease) stage 3, GFR 30-59 ml/min CAD (coronary artery disease), [place]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 Anemia History of heart attack (~09/04/14) Hypertension Home Medications ?Medication ?Instructions ?Recorded ?Last Taken ?Type aspirin 81 mg tablet,delayed 81 mg PO DAILY 04/29/18 05/20/18 07:00 History release (Adult Low Dose Aspirin) nitroglycerin 0.4 mg sublingual 0.4 mg sublingual X1 PRN CHEST PAIN 01/12/20 Unknown History tablet atorvastatin 40 mg tablet 40 mg PO QHS 11/24/20 Unknown History pantoprazole 40 mg tablet,delayed 40 mg PO DAILY 01/19/22 02/08/22 06:30 History release metoprolol succinate 25 mg 25 mg PO DAILY 12/24/23 Unknown History tablet,extended release 24 hr calcium acetate(phosphat bind) 667 667 mg PO TIDCM 02/17/24 Unknown History mg capsule amlodipine 5 mg tablet 5 mg PO DAILY 02/23/24 Unknown History furosemide 40 mg tablet 40 mg PO DAILY 02/23/24 Unknown History isosorbide mononitrate 30 mg 30 mg PO DAILY 02/23/24 Unknown History tablet,extended release 24 hr Allergy/AdvReac Type Severity Reaction Status Date / Time lisinopril AdvReac Other Verified 07/22/24 12:12 Family History Mother Colon cancer Father Colon cancer Myocardial infarction Brother Cancer Surgical History History of arteriovenostomy for renal dialysis (~01/2022) History of ventral hernia repair Hx of colonoscopy (~12/17/13) Hx of parathyroidectomy Hx of bilateral inguinal hernia repair Hx of heart artery stent Social History Smoking Status: Former smoker second hand exposure: No alcohol intake: current alcohol intake frequency: a few times a month substance use type: does not use caffeine: Yes what type of physical activity do you participate in: none seatbelt use: always ROS ROS ED Constitutional Constitutional ED: Denies chills, fever(s) or weight loss Eyes Eyes: Denies change in vision or diplopia ENT ENT ED: Denies ear pain, rhinorrhea or sore throat Cardiovascular Cardiovascular: Reports as per HPI, chest pain and other; Denies orthopnea, palpitations or racing heartbeat Respiratory/Chest Respiratory/Chest: Denies cough, dyspnea or orthopnea Gastrointestinal Gastrointestinal: Denies abdominal pain, diarrhea, nausea or vomiting Genitourinary Genitourinary ED: Denies dysuria, hematuria or urinary frequency Musculoskeletal Musculoskeletal: Reports other Details: Bilateral leg cramps ; Denies arthralgias or myalgias Integumentary Denies abscess or rash Neurologic Neurologic: Denies headache(s) or weakness Psychiatric Psychiatric: Denies anxiety, depression, suicidal ideation or suicidal thoughts Endocrine Endocrinology: Denies polydipsia, polyphagia or polyuria Allergic/Immunologic Allergic/Immunologic ED: Denies mouth swelling, tongue swelling or urticaria EXAM Physical Exam Const Vital Signs: 07/22/24 12:13 07/22/24 12:16 07/22/24 13:28 Temperature 97.9 F Temperature Source Oral Pulse Rate 64 64 Respiratory Rate 18 16 Respiratory Effort Normal Non-Labored Blood Pressure 116/64 Blood Pressure Mean 81 Pulse Ox 96 Oxygen Delivery Method Room Air 07/22/24 13:30 07/22/24 13:45 07/22/24 14:00 Temperature Temperature Source Pulse Rate 64 63 63 Respiratory Rate 15 14 13 Respiratory Effort Blood Pressure 140/64 H 126/55 H 143/57 H Blood Pressure Mean 83 77 81 Pulse Ox 98 96 96 Oxygen Delivery Method 07/22/24 14:15 07/22/24 14:27 07/22/24 14:30 Temperature Temperature Source Pulse Rate 63 66 61 Respiratory Rate 10 L 14 12 Respiratory Effort Blood Pressure 130/61 H 130/61 H 150/74 H Blood Pressure Mean 79 84 90 Pulse Ox 96 96 96 Oxygen Delivery Method Room Air 07/22/24 14:45 07/22/24 15:00 07/22/24 15:15 Temperature Temperature Source Pulse Rate 72 69 69 Respiratory Rate 15 15 16 Respiratory Effort Blood Pressure 156/64 H 147/70 H 148/65 H Blood Pressure Mean 90 91 88 Pulse Ox 96 99 96 Oxygen Delivery Method 07/22/24 15:30 07/22/24 15:45 07/22/24 16:00 Temperature Temperature Source Pulse Rate 77 73 Respiratory Rate 18 16 Respiratory Effort Blood Pressure 134/63 H 125/61 H 128/64 H Blood Pressure Mean 84 78 84 Pulse Ox 95 96 Oxygen Delivery Method 07/22/24 16:45 Temperature 97.6 F L Temperature Source Pulse Rate 77 Respiratory Rate 18 Respiratory Effort Blood Pressure 130/60 H Blood Pressure Mean 83 Pulse Ox 96 Oxygen Delivery Method Positive well nourished and well developed General Appearance ED: well developed HEENT Reports normocephalic, head/scalp atraumatic and moist mucous membranes Eyes PERRL and EOMs intact bilaterally Neck no lymphadenopathy, supple and no JVD Resp normal respiratory effort and clear to auscultation bilaterally Cardio regular rate, regular rhythm and no murmurs GI normal to inspection, nondistended, normoactive bowel sounds and non-tender Palpation: soft Back/Spine no CVA tenderness and normal ROM Extremity normal to inspection General Extremety ED: Negative for edema General Extremity: Negative for edema Neuro oriented x3 and CN's II-XII intact bilaterally Sensorium / Orientation: alert Motor Exam: strength 5/5 throughout Psych mental status grossly normal Mood & Affect: Negative for depressed or tearful Skin no rashes or lesions noted and no wounds MDM MDM MDM Narrative Medical decision making narrative: Differential diagnosis includes hypotension anemia electrolyte abnormalities acute coronary syndrome CHF My independent interpretation of the chest x-ray is no acute process. Hemoglobin 11.2 white count 8.2. 2 sets of cardiac enzymes are normal. Creatinine 3.54. I believe that the patient's chest pain was most likely related to the hypotensive episode at the end of dialysis treatment. Do not believe that he is having acute coronary syndrome and needs to be emergently transferred or admitted for cardiac catheterization. Patient is comfortable with this plan he said no symptoms since he has been here and his blood pressure has been stable. History & Record Review Discussion w/independent historian: EMS personnel, Patient and Significant other Additional record(s) reviewed:: Prior ED visit and Prior labs Lab Data Attestation: I reviewed the patient's lab results. Labs: Laboratory Results - last 24 hr 07/22/24 07/22/24 07/22/24 12:31 12:31 13:50 WBC Cancelled 8.2 Corrected WBC Cancelled RBC Cancelled 3.69 L Hgb Cancelled 11.2 L Hct Cancelled 35.5 L MCV Cancelled 96.2 H MCH Cancelled 30.4 MCHC Cancelled 31.5 L RDW Std Deviation Cancelled 59.7 H RDW Coeff of Horacio Cancelled 17.0 H Plt Count Cancelled 147 L MPV Cancelled 9.8 Immature Gran % (Auto) Cancelled 0.500 Neut % (Auto) Cancelled 74.8 H Lymph % (Auto) Cancelled 11.4 L Tripp % (Auto) Cancelled 8.9 Eos % (Auto) Cancelled 4.0 Baso % (Auto) Cancelled 0.4 Absolute Neuts (auto) Cancelled 6.1 Absolute Lymphs (auto) Cancelled 0.93 Total Counted Cancelled Neutrophils % (Manual) Cancelled Band Neutrophils % Cancelled Lymphocytes % (Manual) Cancelled Monocytes % (Manual) Cancelled Eosinophils % (Manual) Cancelled Basophils % (Manual) Cancelled Metamyelocytes % Cancelled Myelocytes % Cancelled Promyelocytes % Cancelled Blast Cells % Cancelled Plasma Cell % (Manual) Cancelled Other Cells % Cancelled Nucleated RBC % Cancelled 0 Nucleated RBCs/100 WBC Cancelled Differential Comment Cancelled Diff Path Review Cancelled Hypersegmented Neuts Cancelled Atypical Lymphocytes Cancelled Reactive Lymphocytes Cancelled Smudge Cells Cancelled Toxic Granulation Cancelled Toxic Vacuolation Cancelled Dohle Bodies Cancelled Arya Rods Cancelled Platelet Estimate Cancelled Plt Morphology Comment Cancelled RBC Morphology Cancelled Cancelled Polychromasia Cancelled Hypochromasia Cancelled Basophilic Stippling Cancelled Anisocytosis Cancelled Microcytosis Cancelled Macrocytosis Cancelled Spherocytes Cancelled Sickle Cells Cancelled Target Cells Cancelled Tear Drop Cells Cancelled Ovalocytes Cancelled Stomatocytes Cancelled [place] Bodies Cancelled Diego Cells Cancelled Bite Cells Cancelled Crenated Cell Cancelled Acanthocytes (Spur) Cancelled Rouleaux Cancelled Schistocytes Cancelled Sodium Cancelled 137 Potassium Cancelled 3.9 Chloride Cancelled 96 L Carbon Dioxide Cancelled 34.0 H Anion Gap Cancelled 7 BUN Cancelled 21 H Creatinine Cancelled 3.54 H Estim Creat Clear Calc Cancelled 15.04 Est GFR (MDRD) Af Amer Cancelled 21 L Est GFR (MDRD) Non-Af Cancelled 18 L BUN/Creatinine Ratio Cancelled 5.9 L Glucose Cancelled 108 H Calcium Cancelled 8.9 Troponin I High Sens Cancelled 39 07/22/24 16:04 WBC Corrected WBC RBC Hgb Hct MCV MCH MCHC RDW Std Deviation RDW Coeff of Horacio Plt Count MPV Immature Gran % (Auto) Neut % (Auto) Lymph % (Auto) Tripp % (Auto) Eos % (Auto) Baso % (Auto) Absolute Neuts (auto) Absolute Lymphs (auto) Total Counted Neutrophils % (Manual) Band Neutrophils % Lymphocytes % (Manual) Monocytes % (Manual) Eosinophils % (Manual) Basophils % (Manual) Metamyelocytes % Myelocytes % Promyelocytes % Blast Cells % Plasma Cell % (Manual) Other Cells % Nucleated RBC % Nucleated RBCs/100 WBC Differential Comment Diff Path Review Hypersegmented Neuts Atypical Lymphocytes Reactive Lymphocytes Smudge Cells Toxic Granulation Toxic Vacuolation Dohle Bodies Arya Rods Platelet Estimate Plt Morphology Comment RBC Morphology Polychromasia Hypochromasia Basophilic Stippling Anisocytosis Microcytosis Macrocytosis Spherocytes Sickle Cells Target Cells Tear Drop Cells Ovalocytes Stomatocytes [place] Bodies Bellflower Cells Bite Cells Crenated Cell Acanthocytes (Spur) Rouleaux Schistocytes Sodium Potassium Chloride Carbon Dioxide Anion Gap BUN Creatinine Estim Creat Clear Calc Est GFR (MDRD) Af Amer Est GFR (MDRD) Non-Af BUN/Creatinine Ratio Glucose Calcium Troponin I High Sens 37 Radiography Diagnostic Testing: Clinical Impression(s) from Imaging Studies Chest X-Ray 07/22/24 13:35 IMPRESSION: Mild bibasilar atelectasis or scarring. Electronically Signed: Gretta Shane MD at 14:08 EST , EKG Initial EKG: Attestation: I personally reviewed and interpreted this EKG as follows: Comments: Sinus rhythm first-degree AV block. Right bundle branch block noted. Discharge Plan Triage Chief Complaint: Chest Pain ED Provider: Edouard Manuel Dx/Rx/DC Orders Clinical Impression: Chest pain, ESRD on dialysis, CAD (coronary artery disease) Instructions: ED Chest Pain, Noncardiac Prescriptions: No Action aspirin [Adult Low Dose Aspirin] 81 mg tablet,delayed release (DR/EC) 81 mg PO DAILY atorvastatin 40 mg tablet 40 mg PO QHS pantoprazole 40 mg tablet,delayed release (DR/EC) 40 mg PO DAILY nitroglycerin 0.4 MG tablet, sublingual 0.4 mg SL X1 PRN (Reason: CHEST PAIN) isosorbide mononitrate 30 mg tablet extended release 24 hr 30 mg PO DAILY amlodipine 5 mg tablet 5 mg PO DAILY furosemide 40 mg tablet 40 mg PO DAILY metoprolol succinate 25 mg tablet extended release 24 hr 25 mg PO DAILY calcium acetate(phosphat bind) 667 mg capsule 667 mg PO TIDCM Primary Care Provider: Julio Licea Referrals: Julio Licea MD [Primary Care Provider] - As Needed Print Language: Maori Disposition Disposition: Home, Self Care Discharge Date/Time: 07/22/24 16:50
--- NOTE | 2024-07-22 13:35 | RAD_ITS ---
HISTORY: chest pain. TECHNIQUE: XR Chest 1 View. COMPARISON: 02/24/2024. 02/17/2024. FINDINGS: CARDIOMEDIASTINAL BORDERS: Cardiac silhouette within normal limits in size. Mediastinal contour also unchanged with surgical clips of the left thoracic inlet and calcification of the aorta. LUNGS: Mild linear bibasilar opacities. PLEURA: No pleural effusion or pneumothorax seen. OSSEOUS STRUCTURES: Chronic superior subluxation of the right distal clavicle relative to the acromion. RAD/Chest 1 View (Portable) IMPRESSION: Mild bibasilar atelectasis or scarring. Electronically Signed: Gretta Shane MD at 14:08 EST ,
[2024-07-22 14:12] LABS: Absolute Lymphocyte Count 0.93 X10^3/uL (0.83-4.51); Absolute Neutrophil Count 6.1 X10^3/uL (2.0-7.7); Basophil# 0.03 X10^3/uL; Basophil% 0.4 % (0-1); Eosinophil# 0.33 X10^3/uL; Hematocrit 35.5 % (40-54); Hemoglobin 11.2 g/dL (13.0-16.5); Lymphocyte # 0.93 X10^3/ul (0.83-4.51); Lymphocyte % 11.4 % (19-41); Mean Corp Hgb Conc 31.5 g/dL (32-36); Mean Corpuscular Hgb 30.4 pg (27.0-32.0); Mean Corpuscular Volume 96.2 fL (80-94); Mean Platelet Vol. 9.8 fl (6.2-12.0); Monocyte# 0.73 X10^3/uL; Monocyte% 8.9 % (0-10); NRBC Flagged by Analyzer 0 % (0-5); Neutrophil # 6.12 X10^3/uL (2.7-7.7); Neutrophil % 74.8 % (47-70); Platelet Count 147 K/mm3 (150-450); RBC Distribution Width SD 59.7 fl (35.1-43.9); Red Blood Count 3.69 M/mm3 (4.6-6.2); White Blood Count 8.2 K/mm3 (4.4-11.0)
[2024-07-22 14:37] LABS: Anion Gap 7 (5-15); BUN 21 mg/dL (7-18); BUN/Creat Ratio 5.9 RATIO (10-20); Calcium,Total 8.9 mg/dL (8.5-10.1); Chloride 96 mmol/L (98-107); Creatinine, Serum 3.54 mg/dL (0.70-1.30); EST Glomerular Filtration Rate 18 mL/min (>60); Est Glom Filt Rate - Afr Amer 21 mL/min (>60); Estimated Creatinine Clearance 15.04 ml/min; Glucose 108 mg/dL (74-106); Potassium 3.9 mmol/L (3.5-5.1); Sodium Level 137 mmol/L (136-145); Troponin-I HS (w/2H Reflex) 39 pg/mL (3.0-78.0)
[2024-07-22 16:02] LABS: Reflex Troponin-HS? (from REC) Y
[2024-07-22 16:36] LABS: Troponin-I HS 37 pg/mL (3.0-78.0)
== END 2024-07-22 16:50 | disposition home or self-care (01) ==
PROVIDERS: Emergency Provider Emergency Medicine; PCP Family Medicine; Visit Provider Emergency Medicine
DX: R07.9 Chest pain, unspecified (principal); I12.0 Hypertensive chronic kidney disease with stage 5 chronic kidney disease or end stage renal disease; N18.6 End stage renal disease; I95.9 Hypotension, unspecified; E78.00 Pure hypercholesterolemia, unspecified; I25.10 Atherosclerotic heart disease of native coronary artery without angina pectoris; I25.2 Old myocardial infarction; Z99.2 Dependence on renal dialysis; Z79.82 Long term (current) use of aspirin; Z79.899 Other long term (current) drug therapy; Z87.891 Personal history of nicotine dependence
CPT/HCPCS: 71045; 80048; 84484; 85025; 93005; 99285; A4216

== ENCOUNTER → 2024-07-24 | Outpatient (CLI) | payer MEDICARE, SELFPAY ==
[2023-12-24 08:37] VITALS: BMI 27.6
== END | disposition home or self-care (01) ==
LOC: LABSPEC 16:06
PROVIDERS: PCP Family Medicine; Referring Provider Otolaryngology; Visit Provider Otolaryngology
DX: R05.9 Cough, unspecified (principal)
CPT/HCPCS: 87070; 87205

== ENCOUNTER 2024-09-09 12:24 | Observation (INO) | payer MEDICARE, SELFPAY ==
[2023-12-24 08:37] VITALS: BMI 27.6
[2024-09-09 12:25] VITALS: BP 115/54; PULSE 64; RESP 18; TEMP 36.6; O2SAT 95; BMI 12.6
--- NOTE | 2024-09-09 12:56 | CT_ITS ---
EXAM: ABDOMEN/PELVIS W IV CONT ONLY. 100 cc of Isovue-300 was injected intravenously. CLINICAL HISTORY: Chronic abdominal pain for 1 year. Patient is on renal dialysis. Prior ventral hernia repair and bi lateral inguinal hernia repair. COMPARISON: None. TECHNIQUE: Multiple axial tomographic images were obtained following intravenous contrast administration. Coron al and sagittal reconstruction was obtained as well. FINDINGS: Minimal increased markings at the lung bases suggestive of atelectasis. Coronary artery calcificatio n. Calcification of the aortic valve. Air is seen within the portal venous system in the left lobe of the liver. There is a 2 point 3 cm b y 2.4 cm cyst in the medial aspect of the right lobe of the liver. Smaller cysts are also seen in the right lobe. The gallbladder is unremarkable. The pancreas is unremarkable as well. Small cyst in the lower pole of the spleen. There is gastric wall thickening with findings suggestive of air within the wall of the stomach. Extensive atherosclerotic plaque formation of the aorta and the major visceral branches especially th e celiac artery and superior mesenteric artery. I can not exclude a tight stenosis and possible tiny thrombus. Multiple bilateral renal cysts with atrophy of both kidneys. There is evidence of prior ventral hernia repair and left inguinal hernia repair. Prostatic calcification. Multilevel disc space narrowing and disc degeneration and spondylosis. CT/Abdomen/Pelvis W IV Cont ONLY IMPRESSION: Findings suggestive of air in the left lobe of the liver as described and gastr ic wall thickening with air within the wall. Extensive atherosclerotic calcification of the aorta as well as the major visce ral branches as described with possible tight stenosis or possible thrombus. The results were communicated to the attending physician. Reading Location: [facility]
--- NOTE | 2024-09-09 12:57 | EKG12_ITS ---
Test Reason : DIZZY Blood Pressure : */* mmHG Vent. Rate : 77 BPM Atrial Rate : 77 BPM P-R Int : 292 ms QRS Dur : 166 ms QT Int : 472 ms P-R-T Axes : 26 -37 14 degrees QTcB Int : 534 ms Sinus rhythm with 1st degree A-V block Left axis deviation Right bundle branch block Inferior infarct , age undetermined Abnormal ECG Confirmed by JOHNNY WATT, MARGI ([id number]), medical transcription editor IAN MONIQUE ([id number]) on 09/10/2024 1:23:51 PM Referred By: Confirmed By: MARGI TURNER MD
--- NOTE | 2024-09-09 12:57 | EDS_ITS ---
HPI HPI - GI History of Present Illness Chief Complaint: Abd Pain Informant: patient, spouse/S.O. and EMS Narrative Narrative: 83-year-old male sent from dialysis because of hypotension and diffuse abdominal pain, nausea. His blood pressure is normal now. Did not finish dialysis, did not take a lot of fluid off according to the , they put some back pain when he was having this before sending him. The states he has the abdominal pain and nausea every single day for the past year, and they cannot figure out why he is having this. He has had a scope that apparently was unremarkable. She does not recall him having had a CT scan. He gets it commonly at dialysis but also has it at home when he is not at dialysis from time to time, often after meals. Right now he states he is very nauseated. He has a chronic cough, has an appointment with a oliver filter operator Dr. Samayoa in the [facility] from October; he has never seen pulmonology in the past. Sometimes he coughs and has posttussive emesis. No blood or bilious emesis in the past. [facility] Medical History Alcohol use History of renal disease Restless legs History of edema History of stress test Hypertension Anemia History of renal dialysis Wears glasses High cholesterol History of ulceration Gastric reflux Former smoker Hoarseness Chronic cough Cardiology follow-up encounter Ventral incisional hernia without obstruction or gangrene Screening for intestinal cancer Osteopenia determined by x-ray Hyperparathyroidism Recurrent inguinal hernia of right side without obstruction or gangrene Recurrent inguinal hernia TIA (transient ischemic attack) Mild renal insufficiency Esophageal reflux Dyslipidemia Hiatal hernia CKD (chronic kidney disease) stage 3, GFR 30-59 ml/min CAD (coronary artery disease), [place]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 Anemia History of heart attack (~09/04/14) Hypertension Home Medications ?Medication ?Instructions ?Recorded ?Last Taken ?Type aspirin 81 mg tablet,delayed 81 mg PO DAILY 04/29/18 05/20/18 07:00 History release (Adult Low Dose Aspirin) nitroglycerin 0.4 mg sublingual 0.4 mg sublingual X1 PRN CHEST PAIN 01/12/20 Unknown History tablet atorvastatin 40 mg tablet 40 mg PO QHS 11/24/20 Unknown History pantoprazole 40 mg tablet,delayed 40 mg PO DAILY 01/19/22 02/08/22 06:30 History release metoprolol succinate 25 mg 25 mg PO DAILY 12/24/23 Unknown History tablet,extended release 24 hr calcium acetate(phosphat bind) 667 667 mg PO TIDCM 02/17/24 Unknown History mg capsule amlodipine 5 mg tablet 5 mg PO DAILY 02/23/24 Unknown History furosemide 40 mg tablet 40 mg PO DAILY 02/23/24 Unknown History isosorbide mononitrate 30 mg 30 mg PO DAILY 02/23/24 Unknown History tablet,extended release 24 hr Allergy/AdvReac Type Severity Reaction Status Date / Time lisinopril AdvReac Other Verified 09/09/24 12:28 Family History Mother Colon cancer Father Colon cancer Myocardial infarction Brother Cancer Surgical History History of arteriovenostomy for renal dialysis (~01/2022) History of ventral hernia repair Hx of colonoscopy (~12/17/13) Hx of parathyroidectomy Hx of bilateral inguinal hernia repair Hx of heart artery stent Social History Smoking Status: Former smoker second hand exposure: No alcohol intake: current alcohol intake frequency: a few times a month substance use type: does not use caffeine: Yes what type of physical activity do you participate in: none seatbelt use: always ROS ROS ED Constitutional Constitutional ED: Reports malaise; Denies chills or fever(s) Eyes Eyes: Denies change in vision or diplopia ENT ENT ED: Denies rhinorrhea or sore throat Cardiovascular Cardiovascular: Denies chest pain or palpitations Respiratory/Chest Respiratory/Chest: Denies cough or dyspnea Gastrointestinal Gastrointestinal: Reports abdominal pain and nausea; Denies diarrhea or vomiting Musculoskeletal Musculoskeletal: Denies back pain or neck pain Integumentary Denies abscess or rash Neurologic Neurologic: Denies headache(s), paresthesias or weakness EXAM Physical Exam Const Vital Signs: 09/09/24 12:25 09/09/24 14:24 09/09/24 16:00 Temperature 97.8 F Temperature Source Oral Pulse Rate 64 79 89 Respiratory Rate 18 17 15 Blood Pressure 115/54 L 136/63 H 140/67 H Blood Pressure Mean 74 87 91 Pulse Ox 95 96 94 Oxygen Delivery Method Room Air Room Air Room Air Positive well nourished and well developed General Appearance ED: well developed and NAD HEENT Reports moist mucous membranes normocephalic and atraumatic Eyes PERRL and EOMs intact bilaterally Neck full ROM and supple Resp normal respiratory effort and clear to auscultation bilaterally Cardio regular rate, regular rhythm and no murmurs GI non-distended GI Narrative: Diffuse subjective tenderness, worse in mid and lower abdomen than upper, no guarding or rebound tenderness. Auscultation: normoactive bowel sounds Palpation: soft Back/Spine no CVA tenderness General Back: other FROM Extremity normal to inspection General Extremety ED: Negative for edema, pulses abnormal or tenderness General Extremity: Negative for edema or pulses abnormal Neuro oriented x3, CN's II-XII intact bilaterally and no sensory deficits noted Sensorium / Orientation: awake and alert Motor Exam: strength 5/5 throughout Psych mental status grossly normal and thought process normal Skin no rashes or lesions noted and no wounds MDM MDM MDM Narrative Medical decision making narrative: Labs and CT with IV contrast was ordered, and he was given Zofran for his nausea. The radiologist called me out of concern because the CT shows portal venous air, air in the wall of the stomach, and lots of what appears to be vascular disease including a very tight SMA. Given his history, this is more consistent with mesenteric angina. I ordered a lactic acid at this time to be added in addition to his other labs, PT, PTT in case I need to put him on heparin, as well as 1/2 L of IV fluids and some morphine. On reexamination, he is totally pain-free, his nausea is gone, and he feels much better. I reviewed the scan images and I agree with his concern, this all could be mesenteric ischemia and there may be some area of infarction with air in the wall of the stomach and portal venous system. His lactate returned within normal limits. His blood pressure has remained stable here and he has had no episodes of hypotension or symptoms of hypotension. I spoke with vascular surgery PA, who spoke with Dr. Montaño and they requested CT angiography I advised I speak with surgery. Dr. Ryder reviewed the images in chart as well, and states the stomach and bowel are abnormal but does not necessarily appear to need emergency surgery, especially since the patient is pain-Free, and recommends discussion with vascular after the CTA to determine what the patient needs next from vascular standpoint. After the CTA, Dr. Montaño states that the patient does not need any type of surgical intervention, and the appearance of the venous portal air on my interpretation is improved compared with the prior scan. There is still some air in the wall of the stomach and proximal duodenum. The patient is pain-free and has no abdominal tenderness and his vital signs of remained stable. Surgery does not think the patient needs any type of emergency surgery. Given all of this, I am discussing with medicine for admission and further evaluation possibly in conjunction with nephrology about what can be done for this patient to try to prevent recurrent episodes, which may result in bowel infarction. Lab Data Attestation: I reviewed the patient's lab results. Labs: Laboratory Results - last 24 hr 09/09/24 09/09/24 12:30 14:15 WBC 7.3 RBC 3.53 L Hgb 10.7 L Hct 33.2 L MCV 94.1 H MCH 30.3 MCHC 32.2 RDW Std Deviation 56.6 H RDW Coeff of Horacio 16.4 H Plt Count 187 MPV 10.5 Immature Gran % (Auto) 0.500 Neut % (Auto) 62.3 Lymph % (Auto) 22.6 Petroleum % (Auto) 9.7 Eos % (Auto) 4.4 Baso % (Auto) 0.5 Absolute Neuts (auto) 4.6 Absolute Lymphs (auto) 1.66 Nucleated RBC % 0 PT 14.5 INR 1.1 APTT 35.3 Sodium 137 Potassium 3.4 L Chloride 97 L Carbon Dioxide 31.0 Anion Gap 9 BUN 19 H Creatinine 3.25 H Estim Creat Clear Calc 9.04 Est GFR (MDRD) Af Amer 24 L Est GFR (MDRD) Non-Af 20 L BUN/Creatinine Ratio 5.8 L Glucose 128 H Lactic Acid 1.2 Calcium 8.5 Total Bilirubin 0.60 AST 18 ALT 11 L Alkaline Phosphatase 103 Troponin I High Sens 37 Total Protein 7.0 Albumin 3.2 Globulin 3.8 Albumin/Globulin Ratio 0.8 L Radiography Diagnostic Testing: Clinical Impression(s) from Imaging Studies Abdomen/Pelvis CT 09/09/24 12:56 IMPRESSION: Findings suggestive of air in the left lobe of the liver as described and gastric wall thickening with air within the wall. Extensive atherosclerotic calcification of the aorta as well as the major visceral branches as described with possible tight stenosis or possible thrombus. The results were communicated to the attending physician. Reading Location: [facility] Abdomen/Pelvis CTA 09/09/24 16:10 IMPRESSION: Redemonstration of left hepatic lobe prominent portal venous gas. Redemonstration of gastric wall thickening and flecks of air within the region of the wall. One or more dose reduction techniques were used (e.g., Automated exposure control, adjustment of the mA and/or kV according to patient size, use of iterative reconstruction technique). Reading Location: [facility] Rhythm Strip Rhythm Strip: Sinus Rhythm Rate: 75 Ectopy: PVC(s) EKG Initial EKG: Attestation: I personally reviewed and interpreted this EKG as follows: Interpretation: Sinus Rhythm, No Acute Injury Pattern, RBBB and LAFB Management Discussion w/another healthcare provider: Hospitalist, [employer] (Vascular surgery, general surgery) and Radiologist Discharge Plan Triage Chief Complaint: Abd Pain ED Provider: Gokul Cao Dx/Rx/DC Orders Clinical Impression: Nonocclusive mesenteric ischemia, Transient hypotension, ESRD on hemodialysis Prescriptions: No Action aspirin [Adult Low Dose Aspirin] 81 mg tablet,delayed release (DR/EC) 81 mg PO DAILY atorvastatin 40 mg tablet 40 mg PO QHS pantoprazole 40 mg tablet,delayed release (DR/EC) 40 mg PO DAILY nitroglycerin 0.4 MG tablet, sublingual 0.4 mg SL X1 PRN (Reason: CHEST PAIN) isosorbide mononitrate 30 mg tablet extended release 24 hr 30 mg PO DAILY amlodipine 5 mg tablet 5 mg PO DAILY furosemide 40 mg tablet 40 mg PO DAILY metoprolol succinate 25 mg tablet extended release 24 hr 25 mg PO DAILY calcium acetate(phosphat bind) 667 mg capsule 667 mg PO TIDCM Primary Care Provider: Julio Licea Referrals: Julio Licea MD [Primary Care Provider] - Print Language: Macedonian Disposition Disposition: Acute Care Hospital [facility]
[2024-09-09] MEDS: Ondansetron 4 MG/2 ML Vial IV (13:06)
[2024-09-09 13:08] LABS: Absolute Lymphocyte Count 1.66 X10^3/uL (0.83-4.51); Absolute Neutrophil Count 4.6 X10^3/uL (2.0-7.7); Basophil# 0.04 X10^3/uL; Basophil% 0.5 % (0-1); Eosinophil# 0.32 X10^3/uL; Eosinophils% 4.4 % (0-5); Hematocrit 33.2 % (40-54); Hemoglobin 10.7 g/dL (13.0-16.5); Lymphocyte # 1.66 X10^3/ul (0.83-4.51); Lymphocyte % 22.6 % (19-41); Mean Corp Hgb Conc 32.2 g/dL (32-36); Mean Corpuscular Hgb 30.3 pg (27.0-32.0); Mean Corpuscular Volume 94.1 fL (80-94); Mean Platelet Vol. 10.5 fl (6.2-12.0); Monocyte# 0.71 X10^3/uL; Monocyte% 9.7 % (0-10); NRBC Flagged by Analyzer 0 % (0-5); Neutrophil # 4.56 X10^3/uL (2.7-7.7); Neutrophil % 62.3 % (47-70); Platelet Count 187 K/mm3 (150-450); RBC Distribution Width CV 16.4 % (11.6-14.6); RBC Distribution Width SD 56.6 fl (35.1-43.9); Red Blood Count 3.53 M/mm3 (4.6-6.2); White Blood Count 7.3 K/mm3 (4.4-11.0)
[2024-09-09 13:27] LABS: ALB/GLOB Ratio 0.8 RATIO (0.9-2.4); AST(SGOT) 18 U/L (15-37); Alanine Aminotransfer ALT/SGPT 11 U/L (16-61); Albumin, Serum 3.2 g/dL (3.2-5.0); Alkaline Phosphatase 103 U/L (45-117); Anion Gap 9 (5-15); BUN 19 mg/dL (7-18); BUN/Creat Ratio 5.8 RATIO (10-20); Calcium,Total 8.5 mg/dL (8.5-10.1); Chloride 97 mmol/L (98-107); Creatinine, Serum 3.25 mg/dL (0.70-1.30); EST Glomerular Filtration Rate 20 mL/min (>60); Est Glom Filt Rate - Afr Amer 24 mL/min (>60); Estimated Creatinine Clearance 9.04 ml/min; Globulin 3.8 g/dL (2.2-4.2); Glucose 128 mg/dL (74-106); Potassium 3.4 mmol/L (3.5-5.1); Sodium Level 137 mmol/L (136-145); Troponin-I HS 37 pg/mL (3.0-78.0)
[2024-09-09 14:12] LABS: International Normalized Ratio 1.1; Partial Thromboplast Time 35.3 Seconds (24.1-36.2); Prothrombin Time (Protime)PT. 14.5 SECONDS (11.7-14.9)
[2024-09-09] MEDS: fentaNYL 100 MCG/2 ML Ampul 25 MCG IV (14:13)
[2024-09-09] MEDS: 0.9% Normal Saline (500mL Bag) 500 ML 999 ML IV (14:15)
[2024-09-09 14:24] VITALS: BP 136/63; PULSE 79; RESP 17; O2SAT 96
[2024-09-09 15:11] LABS: Lactic Acid 1.2 mmol/L (0.4-1.9)
[2024-09-09 16:00] VITALS: BP 140/67; PULSE 89; RESP 15; O2SAT 94
--- NOTE | 2024-09-09 16:10 | CT_ITS ---
PROCEDURE: CTA ABD/PELVIS W/WO CONTRAST REASON FOR EXAM: History of renal disease, dialysis. Bilateral inguinal hernia repairs, ventral hernia repair. Pain; abnormal CT. TECHNIQUE: Abdomen and pelvis CT with intravenous contrast. COMPARISON: 09/09/2024. FINDINGS: Lung bases: Mild bilateral dependent atelectasis. Coronary artery calcifications. Liver: Unchanged left hepatic lobe portal venous gas. Unchanged kidney cyst. Additional subcentimet er hypodense lesions are too small to characterize but likely benign right hepatic lobe calcification which represent prior infect ion.. Gallbladder: Unremarkable. Spleen: Small splenic cyst. Pancreas: Unremarkable. Adrenals: Unremarkable. Kidneys: Bilateral kidney simple cysts in keeping with chronic kidney disease. Additional subcentime ter hypodense lesions are too small to characterize. Bladder: Urinary bladder wall thickening. Reproductive Organs: Unremarkable. Bowel: Normal caliber on small-bowel. Dense colonic stool. Normal caliber appendix. Redemonstratio n of gastric wall thickening. Redemonstration of gastric wall air.. Appendix: Normal. Lymph nodes: No suspicious lymph node enlargement. Vasculature: Atherosclerosis of a normal caliber abdominal aorta and its branches.. No dilation. No visualized arterial thrombus. Peritoneum / Retroperitoneum: No ascites. No free air. Bones: Degenerative changes of the spine. CT/CTA Abd/Pelvis W/WO Contrast IMPRESSION: Redemonstration of left hepatic lobe prominent portal venous gas. Redemonstration of gastric wall thickening and flecks of air within the region of the wall. One or more dose reduction techniques were used (e.g., Automated exposure contr ol, adjustment of the mA and/or kV according to patient size, use of iterative reconstruction technique). Reading Location: [id number]
--- NOTE | 2024-09-09 17:32 | HP.PCM.HOS_ITS ---
HPI - General General Date of Admission: 09/09/24 Date of Service: 09/09/24 Chief Complaint: Intermittent abdominal pain with nausea HPI Narrative LUIS MANUEL CASTILLO, is a 83 M who presented to [facility] ED on 09/09/2024 with intermittent abdominal pain with nausea. Patient has history of ESRD on HD. For the past several dialysis sessions, patient has developed abdominal pain during dialysis and blood pressures recorded at those times are borderline low. He had this occur today and was given some fluid back with only mild improvement. He is also had abdominal pain with nausea intermittently with meals. Because of these things, he came to the ED today for further evaluation. In the ED patient was hemodynamically stable on room air. CBC was unremarkable. BMP showed normal electrolytes, other findings consistent with ESRD. CT abdomen pelvis with IV contrast showed extensive atherosclerotic plaque formation of the aorta and major visceral branches especially the celiac artery and superior mesenteric artery; also showed air in the portal venous system and left lobe of the liver, along with gastric wall thickening suggestive of air within the wall of the stomach. Case was discussed with general surgery who noted that patient had no abdominal pain, normal WBC count and normal lactic acid so no need for intervention at this time. Was also discussed with vascular surgery who recommended CTA abdomen pelvis for further evaluation. CTA showed atherosclerosis of a normal caliber abdominal aorta and its branches with no dilation and no arterial thrombus. Vascular surgery noted no need for intervention at this time. However, given all of these findings, hospitalist was contacted for admission. I saw the patient at bedside in the ED, was present. Patient was sitting up comfortably in bed, conversing normally, in no acute distress. Noted that his nausea was much improved from previous and he had very mild abdominal pain currently. He denied any lightheadedness or dizziness. Denies feeling dry on exam. No other acute concerns at this time. [facility] Medical History Alcohol use History of renal disease Restless legs History of edema History of stress test Hypertension Anemia History of renal dialysis Wears glasses High cholesterol History of ulceration Gastric reflux Former smoker Hoarseness Chronic cough Cardiology follow-up encounter Ventral incisional hernia without obstruction or gangrene Screening for intestinal cancer Osteopenia determined by x-ray Hyperparathyroidism Recurrent inguinal hernia of right side without obstruction or gangrene Recurrent inguinal hernia TIA (transient ischemic attack) Mild renal insufficiency Esophageal reflux Dyslipidemia Hiatal hernia CKD (chronic kidney disease) stage 3, GFR 30-59 ml/min CAD (coronary artery disease), [place]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 Anemia History of heart attack (~09/04/14) Hypertension Home Medications ?Medication ?Instructions ?Recorded ?Last Taken ?Type aspirin 81 mg tablet,delayed 81 mg PO DAILY 04/29/18 09/09/24 History release (Adult Low Dose Aspirin) nitroglycerin 0.4 mg sublingual 0.4 mg sublingual X1 PRN CHEST PAIN 01/12/20 04/12/24 History tablet atorvastatin 40 mg tablet 40 mg PO QHS 11/24/20 09/08/24 History pantoprazole 40 mg tablet,delayed 40 mg PO DAILY 01/19/22 09/09/24 History release metoprolol succinate 25 mg 25 mg PO DAILY 12/24/23 09/08/24 History tablet,extended release 24 hr calcium acetate(phosphat bind) 667 667 mg PO TIDCM 02/17/24 09/09/24 History mg capsule furosemide 40 mg tablet 40 mg PO DAILY 02/23/24 09/09/24 History isosorbide mononitrate 30 mg 30 mg PO DAILY 02/23/24 09/08/24 History tablet,extended release 24 hr finasteride 5 mg tablet 5 mg PO DAILY 09/09/24 09/09/24 History Allergy/AdvReac Type Severity Reaction Status Date / Time lisinopril AdvReac Other Verified 09/09/24 20:22 Family History Mother Colon cancer Father Colon cancer Myocardial infarction Brother Cancer Surgical History History of arteriovenostomy for renal dialysis (~01/2022) History of ventral hernia repair Hx of colonoscopy (~12/17/13) Hx of parathyroidectomy Hx of bilateral inguinal hernia repair Hx of heart artery stent Social History Smoking Status: Former smoker second hand exposure: No alcohol intake: current alcohol intake frequency: a few times a month substance use type: does not use caffeine: Yes what type of physical activity do you participate in: none seatbelt use: always ROS Constitutional Constitutional: Denies chills, fatigue, fever(s) or weakness Eyes Eyes: Denies change in vision Cardiovascular Cardiovascular: Denies chest pain Respiratory/Chest Respiratory/Chest: Denies shortness of breath at rest Gastrointestinal Gastrointestinal: Reports abdominal pain and nausea; Denies constipation, diarrhea or vomiting Genitourinary Genitourinary: Denies dysuria Musculoskeletal Musculoskeletal: Denies arthralgias or myalgias Neurologic Neurologic: Denies dizziness or headache(s) Vital Signs Vital Signs Vital Signs: 09/09/24 12:25 09/09/24 14:24 09/09/24 16:00 Temperature 97.8 F Temperature Source Oral Pulse Rate 64 79 89 Respiratory Rate 18 17 15 Blood Pressure 115/54 L 136/63 H 140/67 H Blood Pressure Mean 74 87 91 Pulse Ox 95 96 94 Oxygen Delivery Method Room Air Room Air Room Air Weight Weight: 36.457 kg Body Mass Index (BMI) 12.6 Physical Exam Const alert, oriented x3, no apparent distress and average body habitus Constitutional Narrative: Elderly male, mildly fatigued appearing but otherwise sitting back comfortably in bed, conversing normally, in no acute distress. General Appearance: cooperative and comfortable HEENT normocephalic, head/scalp atraumatic, hearing grossly normal bilaterally, nasal mucous membranes and turbinates normal and moist oral mucous membranes Eyes PERRL, EOMs intact bilaterally and conjunctivae normal Neck full ROM Chest inspection of chest normal Resp normal respiratory effort, normal air movement, no use of accessory muscles and clear to auscultation bilaterally Cardio regular rate, regular rhythm, no murmurs and peripheral pulses 2+ throughout GI GI Narrative: Abdomen soft, nondistended and nontender to palpation with normal active bowel sounds noted. Back/Spine normal ROM Extremity normal to inspection, full ROM and no pedal edema Skin no rashes or lesions noted Neuro moves all extremities and no focal motor deficits Speech: speech normal Psych mental status grossly normal Results Lab / Micro Data 09/09/24 12:30 09/09/24 12:30 Labs: Laboratory Results - last 24 hr 09/09/24 12:30: WBC 7.3, RBC 3.53 L, Hgb 10.7 L, Hct 33.2 L, MCV 94.1 H, MCH 30.3, MCHC 32.2, RDW Std Deviation 56.6 H, RDW Coeff of Horacio 16.4 H, Plt Count 187, MPV 10.5, Immature Gran % (Auto) 0.500, Neut % (Auto) 62.3, Lymph % (Auto) 22.6, Pierce % (Auto) 9.7, Eos % (Auto) 4.4, Baso % (Auto) 0.5, Absolute Neuts (auto) 4.6, Absolute Lymphs (auto) 1.66, Nucleated RBC % 0, PT 14.5, INR 1.1, APTT 35.3, Sodium 137, Potassium 3.4 L, Chloride 97 L, Carbon Dioxide 31.0, Anion Gap 9, BUN 19 H, Creatinine 3.25 H, Estim Creat Clear Calc 9.04, Est GFR (MDRD) Af Amer 24 L, Est GFR (MDRD) Non-Af 20 L, BUN/Creatinine Ratio 5.8 L, G lucose 128 H, Calcium 8.5, Total Bilirubin 0.60, AST 18, ALT 11 L, Alkaline Phosphatase 103, Troponin I High Sens 37, Total Protein 7.0, Albumin 3.2, Globulin 3.8, Albumin/Globulin Ratio 0.8 L 09/09/24 14:15: Lactic Acid 1.2 Rhythm Strip Rhythm Strip: Sinus Rhythm Rate: 75 Ectopy: PVC(s) Imaging Radiology Impression Abdomen/Pelvis CT 09/09/24 12:56 IMPRESSION: Findings suggestive of air in the left lobe of the liver as described and gastric wall thickening with air within the wall. Extensive atherosclerotic calcification of the aorta as well as the major visceral branches as described with possible tight stenosis or possible thrombus. The results were communicated to the attending physician. Reading Location: [facility] Abdomen/Pelvis CTA 09/09/24 16:10 IMPRESSION: Redemonstration of left hepatic lobe prominent portal venous gas. Redemonstration of gastric wall thickening and flecks of air within the region of the wall. One or more dose reduction techniques were used (e.g., Automated exposure control, adjustment of the mA and/or kV according to patient size, use of iterative reconstruction technique). Reading Location: [id number] Assessment & Plan Assessment/Plan (1) Nonocclusive mesenteric ischemia: (2) Transient hypotension: (3) ESRD on hemodialysis: PLAN: Plan Patient is an 83-year-old male who presented to [facility] ED on 09/09/2024 with intermittent abdominal pain with nausea. 1. Suspected nonocclusive mesenteric ischemia with portal venous gas ? Admit under observation status to PCU. General surgery and vascular surgery consulted. CT abdomen pelvis imaging on admit showed extensive atherosclerotic plaque in the aorta and major visceral branches especially the celiac artery and SMA. Also showed portal venous gas and gastric wall thickening with air within the wall. Patient with no significant abdominal pain, no WBC count elevation and normal lactic acid so no need for general surgery intervention. No arterial thrombus noted on imaging so no need for vascular surgery intervention at this point. Suspect symptoms are due to transient hypotension during dialysis and it may be reasonable to hold patient's home antihypertensive medications especially on days of dialysis to see if this improves his symptoms. Holding antihypertensive agents for now. 2. ESRD on HD ? Nephrology consulted. On HD MWF, last session on day of admission and reportedly did complete the session. Appreciate nephrology recommendations. 3. History of CAD with stenting, hypertension, hyperlipidemia ? History of stenting back in 2014, no recurrent issues since then. Continue home aspirin and atorvastatin. Will hold home Lasix, nitrate and metoprolol for now as noted above. 4. GERD ? Continue home PPI. 5. BPH with obstructive symptoms ? Continue home finasteride. DVT prophylaxis: Heparin subcu CODE STATUS: Full code, verified Expected disposition: Home, 1 to 2 days Total clinical time spent by myself addressing the patient's medical issues, reviewing all the data, and collaborating with patient's care team: 75 minutes. Charges/Coding Visit Charges Inpatient E&M: 82635 Init Hosp L3
[2024-09-09 18:00] VITALS: BP 147/70
[2024-09-09 18:19] VITALS: BP 147/70; PULSE 89; RESP 14; TEMP 36.6; O2SAT 96
[2024-09-09 18:45] VITALS: BP 135/78; PULSE 104; RESP 16; TEMP 36.9; O2SAT 94
[2024-09-09 19:46] VITALS: BMI 25.9
--- NOTE | 2024-09-09 19:56 | EX.PCM.CON.S ---
Assessment & Plan Assessment/Plan (1) Nonocclusive mesenteric ischemia: PLAN: Plan Pt currently has no abd pain, normal WBC/no shift, normal lactic acid. Did review CT a/p showing portal venous gas, which is concerning however, this may be from transient chronic issue (as pain has been on going for about 1 year, but worse today) maybe related to hypovolemia related to dialysis. No current plans for acute surgical intervention, recommend avoiding hypotension. Chacha Ryder M.D. Pager: [phone] [facility] [address] [place] [address], Outpatient Pavilion, [address] [place] [id number] Office: [phone] HPI Consult Data Date of Consult: 09/10/24 HPI Narrative HPI Narrative: LUIS MANUEL CASTILLO, is a 83 M who presents to the ER due to increased abdominal pain. Patient states occurs in the mid abdomen was a 9/10 when he came to the ER. Patient was finishing dialysis when this started. Patient states he had blood pressure systolically in the 80s and they did give back fluid as well at dialysis but per patient his that did not help his blood pressure. Patient had a CT abdomen pelvis which did show portal venous gas as well as some questionable pneumatosis in the wall of the stomach. Patient states he has had mid abdominal pain off and off for a year does seem to happen towards the end of dialysis and occasionally other times not really related to anything. Patient also had a CTA of the abdomen pelvis which vascular surgery did not feel there is a any role for intervention for possible chronic mesenteric ischemia as the vessels were patent. Question if the portal venous gas was due to hypovolemia/low-flow state. Currently patient has no abdominal pain denies any nausea or vomiting. [facility] Medical History Alcohol use History of renal disease Restless legs History of edema History of stress test Hypertension Anemia History of renal dialysis Wears glasses High cholesterol History of ulceration Gastric reflux Former smoker Hoarseness Chronic cough Cardiology follow-up encounter Ventral incisional hernia without obstruction or gangrene Screening for intestinal cancer Osteopenia determined by x-ray Hyperparathyroidism Recurrent inguinal hernia of right side without obstruction or gangrene Recurrent inguinal hernia TIA (transient ischemic attack) Mild renal insufficiency Esophageal reflux Dyslipidemia Hiatal hernia CKD (chronic kidney disease) stage 3, GFR 30-59 ml/min CAD (coronary artery disease), [place]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 Anemia History of heart attack (~09/04/14) Hypertension Home Medications ?Medication ?Instructions ?Recorded ?Last Taken ?Type aspirin 81 mg tablet,delayed 81 mg PO DAILY 04/29/18 09/09/24 History release (Adult Low Dose Aspirin) nitroglycerin 0.4 mg sublingual 0.4 mg sublingual X1 PRN CHEST PAIN 01/12/20 04/12/24 History tablet atorvastatin 40 mg tablet 40 mg PO QHS 11/24/20 09/08/24 History pantoprazole 40 mg tablet,delayed 40 mg PO DAILY 01/19/22 09/09/24 History release metoprolol succinate 25 mg 25 mg PO DAILY 12/24/23 09/08/24 History tablet,extended release 24 hr calcium acetate(phosphat bind) 667 667 mg PO TIDCM 02/17/24 09/09/24 History mg capsule furosemide 40 mg tablet 40 mg PO DAILY 02/23/24 09/09/24 History isosorbide mononitrate 30 mg 30 mg PO DAILY 02/23/24 09/08/24 History tablet,extended release 24 hr finasteride 5 mg tablet 5 mg PO DAILY 09/09/24 09/09/24 History Allergy/AdvReac Type Severity Reaction Status Date / Time lisinopril AdvReac Other Verified 09/09/24 20:22 Family History Mother Colon cancer Father Colon cancer Myocardial infarction Brother Cancer Surgical History History of arteriovenostomy for renal dialysis (~01/2022) History of ventral hernia repair Hx of colonoscopy (~12/17/13) Hx of parathyroidectomy Hx of bilateral inguinal hernia repair Hx of heart artery stent Social History Smoking Status: Former smoker second hand exposure: No alcohol intake: current alcohol intake frequency: a few times a month substance use type: does not use caffeine: Yes what type of physical activity do you participate in: none seatbelt use: always ROS Constitutional Constitutional: Denies anorexia Eyes Eyes: Denies loss of central vision ENT HEENT: Denies dysphagia Cardiovascular Cardiovascular: Denies chest pain Respiratory/Chest Respiratory/Chest: Denies cough Gastrointestinal Gastrointestinal: Reports abdominal pain; Denies diarrhea, hematochezia or melena Genitourinary Genitourinary: Denies hematuria Integumentary Integumentary: Denies jaundice Neurologic Neurologic: Denies focal weakness Psychiatric Psychiatric: Denies anxiety Hematologic/Lymphatic Hematologic/Lymphatic: Denies easy bleeding Physical Exam Const alert, oriented x3 and no apparent distress HEENT normocephalic and head/scalp atraumatic Resp normal respiratory effort Cardio regular rate GI soft to palpation and non-tender; Negative for non-distended Palpation: Negative for guarding Extremity Extremity Narrative: Right forearm fistula Skin no rashes or lesions noted Neuro CN's II-XII intact bilaterally Psych mental status grossly normal Lab / Micro Data 09/10/24 05:44 09/10/24 05:44 Labs: Laboratory Results - last 24 hr 09/09/24 12:30: WBC 7.3, RBC 3.53 L, Hgb 10.7 L, Hct 33.2 L, MCV 94.1 H, MCH 30.3, MCHC 32.2, RDW Std Deviation 56.6 H, RDW Coeff of Hroacio 16.4 H, Plt Count 187, MPV 10.5, Immature Gran % (Auto) 0.500, Neut % (Auto) 62.3, Lymph % (Auto) 22.6, [place] % (Auto) 9.7, Eos % (Auto) 4.4, Baso % (Auto) 0.5, Absolute Neuts (auto) 4.6, Absolute Lymphs (auto) 1.66, Nucleated RBC % 0, PT 14.5, INR 1.1, APTT 35.3, Sodium 137, Potassium 3.4 L, Chloride 97 L, Carbon Dioxide 31.0, Anion Gap 9, BUN 19 H, Creatinine 3.25 H, Estim Creat Clear Calc 9.04, Est GFR (MDRD) Af Amer 24 L, Est GFR (MDRD) Non-Af 20 L, BUN/Creatinine Ratio 5.8 L, Glucose 128 H, Calcium 8.5, Total Bilirubin 0.60, AST 18, ALT 11 L, Alkaline Phosphatase 103, Troponin I High Sens 37, Total Protein 7.0, Albumin 3.2, Globulin 3.8, Albumin/Globulin Ratio 0.8 L 09/09/24 14:15: Lactic Acid 1.2 Rhythm Strip Rhythm Strip: Sinus Rhythm Rate: 75 Ectopy: PVC(s) Imaging Radiology Impression Abdomen/Pelvis CT 09/09/24 12:56 IMPRESSION: Findings suggestive of air in the left lobe of the liver as described and gastric wall thickening with air within the wall. Extensive atherosclerotic calcification of the aorta as well as the major visceral branches as described with possible tight stenosis or possible thrombus. The results were communicated to the attending physician. Reading Location: [facility] Abdomen/Pelvis CTA 09/09/24 16:10 IMPRESSION: Redemonstration of left hepatic lobe prominent portal venous gas. Redemonstration of gastric wall thickening and flecks of air within the region of the wall. One or more dose reduction techniques were used (e.g., Automated exposure control, adjustment of the mA and/or kV according to patient size, use of iterative reconstruction technique). Reading Location: [id number] Charges/Coding Visit Charges Inpatient E&M: 73197 Init Hosp L3
[2024-09-09] MEDS: Heparin Injection (Vial) 5,000 UNIT/ML VIAL 5000 UNIT SC (21:39)
[2024-09-09] MEDS: Atorvastatin Calcium 40 MG Tablet PO (21:39)
[2024-09-10 02:00] VITALS: BP 120/60; PULSE 79; RESP 16; TEMP 36.7; O2SAT 94
[2024-09-10] MEDS: Heparin Injection (Vial) 5,000 UNIT/ML VIAL 5000 UNIT SC ×3 (06:15→21:01)
[2024-09-10 07:23] VITALS: O2SAT 96
[2024-09-10 07:31] LABS: Hemoglobin 10.9 g/dL (13.0-16.5); Mean Corpuscular Hgb 31.1 pg (27.0-32.0); Mean Platelet Vol. 10.5 fl (6.2-12.0); Platelet Count 166 K/mm3 (150-450); RBC Distribution Width CV 16.5 % (11.6-14.6); RBC Distribution Width SD 56.7 fl (35.1-43.9); Red Blood Count 3.51 M/mm3 (4.6-6.2); White Blood Count 10.3 K/mm3 (4.4-11.0)
[2024-09-10 07:40] LABS: Anion Gap 10 (5-15); BUN 42 mg/dL (7-18); BUN/Creat Ratio 8.2 RATIO (10-20); Calcium,Total 8.9 mg/dL (8.5-10.1); Chloride 95 mmol/L (98-107); Creatinine, Serum 5.14 mg/dL (0.70-1.30); EST Glomerular Filtration Rate 12 mL/min (>60); Est Glom Filt Rate - Afr Amer 14 mL/min (>60); Estimated Creatinine Clearance 10.36 ml/min; Glucose 94 mg/dL (74-106); Potassium 4.4 mmol/L (3.5-5.1); Sodium Level 133 mmol/L (136-145)
[2024-09-10 08:25] VITALS: BP 129/61; PULSE 80; RESP 18; TEMP 37.2; O2SAT 92
--- NOTE | 2024-09-10 08:59 | EX.PCM.CON.S ---
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 His presentation is consistent with nonocclusive mesenteric ischemia related to low flow state/hypotension with dialysis. No indication for vascular surgical intervention at this time. It will be important to avoid hypotension and dehydration as much as possible. HPI Consult Data Date of Consult: 09/10/24 HPI Narrative HPI Narrative: LUIS MANUEL CASTILLO, is a 83 M who presented to the [facility] ER with significant abdominal pain during/following his dialysis treatment yesterday. He reports the pain was diffuse through his abdomen. Initial CT Abd/Pelvis with contrast reported air within the portal system in the left lobe of the liver, air within the wall of the stomach, and atherosclerotic calcification of the abdominal aorta and its visceral branches; on review of the images, agree but also noted what appeared to be air within the intestinal wall at various sites as well. Patient was fluid resuscitated and administered morphine and his pain did improve significantly; he had stable vitals. Then obtain CTA Abd/Pelvis which showed persistent but improved appearance of the portal system, wall of the stomach, and intestines after fluid administration. On image review with Dr. 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 General surgery was also consulted who did not feel that patient required urgent surgical intervention but that it would be best to admit him and observe overnight. He reports that he does get similar diffuse abdominal pain with most dialysis sessions; he notes that it seems like any time they try to remove more than 2.5 L he has more pain. He also notes his blood pressures tend to be quite low after dialysis sessions too. He admits he does have abdominal pain on nondialysis days as well just not as bad; this pain will typically occur when he has not eaten and seems to improve with eating. This morning, he reports his abdominal pain remains much improved, now just with mild achiness throughout but seems to attribute this mostly to hunger. He has no other complaints. He has been on dialysis for 3 years. He receives dialysis Tu, , Sat at [facility] in [place]. [facility] Medical History Alcohol use History of renal disease Restless legs History of edema History of stress test Hypertension Anemia History of renal dialysis Wears glasses High cholesterol History of ulceration Gastric reflux Former smoker Hoarseness Chronic cough Cardiology follow-up encounter Ventral incisional hernia without obstruction or gangrene Screening for intestinal cancer Osteopenia determined by x-ray Hyperparathyroidism Recurrent inguinal hernia of right side without obstruction or gangrene Recurrent inguinal hernia TIA (transient ischemic attack) Mild renal insufficiency Esophageal reflux Dyslipidemia Hiatal hernia CKD (chronic kidney disease) stage 3, GFR 30-59 ml/min CAD (coronary artery disease), [place]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 Anemia History of heart attack (~09/04/14) Hypertension Home Medications ?Medication ?Instructions ?Recorded ?Last Taken ?Type aspirin 81 mg tablet,delayed 81 mg PO DAILY 04/29/18 09/09/24 History release (Adult Low Dose Aspirin) nitroglycerin 0.4 mg sublingual 0.4 mg sublingual X1 PRN CHEST PAIN 01/12/20 04/12/24 History tablet atorvastatin 40 mg tablet 40 mg PO QHS 11/24/20 09/08/24 History pantoprazole 40 mg tablet,delayed 40 mg PO DAILY 01/19/22 09/09/24 History release metoprolol succinate 25 mg 25 mg PO DAILY 12/24/23 09/08/24 History tablet,extended release 24 hr calcium acetate(phosphat bind) 667 667 mg PO TIDCM 02/17/24 09/09/24 History mg capsule furosemide 40 mg tablet 40 mg PO DAILY 02/23/24 09/09/24 History isosorbide mononitrate 30 mg 30 mg PO DAILY 02/23/24 09/08/24 History tablet,extended release 24 hr finasteride 5 mg tablet 5 mg PO DAILY 09/09/24 09/09/24 History Allergy/AdvReac Type Severity Reaction Status Date / Time lisinopril AdvReac Other Verified 09/09/24 20:22 Family History Mother Colon cancer Father Colon cancer Myocardial infarction Brother Cancer Surgical History History of arteriovenostomy for renal dialysis (~01/2022) History of ventral hernia repair Hx of colonoscopy (~05/08/14) Hx of parathyroidectomy Hx of bilateral inguinal hernia repair Hx of heart artery stent Social History Smoking Status: Former smoker second hand exposure: No alcohol intake: current alcohol intake frequency: a few times a month substance use type: does not use caffeine: Yes what type of physical activity do you participate in: none seatbelt use: always Physical Exam Const alert, oriented x3 and no apparent distress General Appearance: cooperative and comfortable HEENT normocephalic, hearing grossly normal bilaterally, external ears normal and external nose normal Eyes EOMs intact bilaterally General Eye: normal appearance of both eyes Neck General: normal visual inspection and trachea midline Resp normal respiratory effort, normal air movement, no retractions and no use of accessory muscles Effort and Inspection: able to speak in complete sentences; Negative for labored, grunting or stridor Cardio regular rate and regular rhythm Extremity no clubbing, cyanosis or edema Skin no rashes or lesions noted Neuro CN's II-XII intact bilaterally and moves all extremities Speech: speech normal Psych mental status grossly normal, affect normal, speech normal and activity/motor behavior normal Appearance: grossly normal Attitude: calm and engaged Lab / Micro Data 09/10/24 05:44 09/10/24 05:44 Labs: Laboratory Results - last 24 hr 09/09/24 12:30: WBC 7.3, RBC 3.53 L, Hgb 10.7 L, Hct 33.2 L, MCV 94.1 H, MCH 30.3, MCHC 32.2, RDW Std Deviation 56.6 H, RDW Coeff of Horacio 16.4 H, Plt Count 187, MPV 10.5, Immature Gran % (Auto) 0.500, Neut % (Auto) 62.3, Lymph % (Auto) 22.6, [place] % (Auto) 9.7, Eos % (Auto) 4.4, Baso % (Auto) 0.5, Absolute Neuts (auto) 4.6, Absolute Lymphs (auto) 1.66, Nucleated RBC % 0, PT 14.5, INR 1.1, APTT 35.3, Sodium 137, Potassium 3.4 L, Chloride 97 L, Carbon Dioxide 31.0, Anion Gap 9, BUN 19 H, Creatinine 3.25 H, Estim Creat Clear Calc 9.04, Est GFR (MDRD) Af Amer 24 L, Est GFR (MDRD) Non-Af 20 L, BUN/Creatinine Ratio 5.8 L, Glucose 128 H, Calcium 8.5, Total Bilirubin 0.60, AST 18, ALT 11 L, Alkaline Phosphatase 103, Troponin I High Sens 37, Total Protein 7.0, Albumin 3.2, Globulin 3.8, Albumin/Globulin Ratio 0.8 L 09/09/24 14:15: Lactic Acid 1.2 09/10/24 05:44: WBC 10.3, RBC 3.51 L, Hgb 10.9 L, Hct 33.0 L, MCV 94.0, MCH 31.1, MCHC 33.0, RDW Std Deviation 56.7 H, RDW Coeff of Horacio 16.5 H, Plt Count 166, MPV 10.5, Sodium 133 L, Potassium 4.4, Chloride 95 L, Carbon Dioxide 29.0, Anion Gap 10, BUN 42 H, Creatinine 5.14 H, Estim Creat Clear Calc 10.36, Est GFR (MDRD) Af Amer 14 L, Est GFR (MDRD) Non-Af 12 L, BUN/Creatinine Ratio 8.2 L, Glucose 94, Calcium 8.9 Rhythm Strip Rhythm Strip: Sinus Rhythm Rate: 75 Ectopy: PVC(s) Imaging Radiology Impression Abdomen/Pelvis CT 09/09/24 12:56 IMPRESSION: Findings suggestive of air in the left lobe of the liver as described and gastric wall thickening with air within the wall. Extensive atherosclerotic calcification of the aorta as well as the major visceral branches as described with possible tight stenosis or possible thrombus. The results were communicated to the attending physician. Reading Location: [facility] Abdomen/Pelvis CTA 09/09/24 16:10 IMPRESSION: Redemonstration of left hepatic lobe prominent portal venous gas. Redemonstration of gastric wall thickening and flecks of air within the region of the wall. One or more dose reduction techniques were used (e.g., Automated exposure control, adjustment of the mA and/or kV according to patient size, use of iterative reconstruction technique). Reading Location: [id number] Charges/Coding Visit Charges Inpatient E&M: 12969 Init Hosp L1
--- NOTE | 2024-09-10 10:11 | PCM.PN.HOSP ---
Reason for Visit Reason for Visit: Diagnoses Hypotension, unspecified (09/09/24) Acute (reversible) ischemia of intestine, part and extent unspecified (09/09/24) End stage renal disease (09/09/24) Dependence on renal dialysis (09/09/24) Objective Data Objective Data Vital Signs: Vital Signs Temp Pulse Resp BP Pulse Ox O2 Del Method 98.9 F 80 18 129/61 H 92 Room Air 09/10/24 08:25 09/10/24 08:25 09/10/24 08:25 09/10/24 08:25 09/10/24 08:25 09/10/24 08:25 Oxygen Delivery Method Room Air Weight: 165 lb 12.203 oz Body Mass Index (BMI) 25.9 Intake & Output: Intake and Output for Last 24 Hours 09/08/24 09/09/24 09/10/24 23:59 23:59 23:59 Intake Total 500 / 500 Output Total 850 / 850 Balance 500 / 100 -850 / -850 Lab / Micro Data 09/10/24 05:44 09/10/24 05:44 Labs: Laboratory Results - last 24 hr 09/09/24 12:30: WBC 7.3, RBC 3.53 L, Hgb 10.7 L, Hct 33.2 L, MCV 94.1 H, MCH 30.3, MCHC 32.2, RDW Std Deviation 56.6 H, RDW Coeff of Horacio 16.4 H, Plt Count 187, MPV 10.5, Immature Gran % (Auto) 0.500, Neut % (Auto) 62.3, Lymph % (Auto) 22.6, [place] % (Auto) 9.7, Eos % (Auto) 4.4, Baso % (Auto) 0.5, Absolute Neuts (auto) 4.6, Absolute Lymphs (auto) 1.66, Nucleated RBC % 0, PT 14.5, INR 1.1, APTT 35.3, Sodium 137, Potassium 3.4 L, Chloride 97 L, Carbon Dioxide 31.0, Anion Gap 9, BUN 19 H, Creatinine 3.25 H, Estim Creat Clear Calc 9.04, Est GFR (MDRD) Af Amer 24 L, Est GFR (MDRD) Non-Af 20 L, BUN/Creatinine Ratio 5.8 L, Glucose 128 H, Calcium 8.5, Total Bilirubin 0.60, AST 18, ALT 11 L, Alkaline Phosphatase 103, Troponin I High Sens 37, Total Protein 7.0, Albumin 3.2, Globulin 3.8, Albumin/Globulin Ratio 0.8 L 09/09/24 14:15: Lactic Acid 1.2 09/10/24 05:44: WBC 10.3, RBC 3.51 L, Hgb 10.9 L, Hct 33.0 L, MCV 94.0, MCH 31.1, MCHC 33.0, RDW Std Deviation 56.7 H, RDW Coeff of Horacio 16.5 H, Plt Count 166, MPV 10.5, Sodium 133 L, Potassium 4.4, Chloride 95 L, Carbon Dioxide 29.0, Anion Gap 10, BUN 42 H, Creatinine 5.14 H, Estim Creat Clear Calc 10.36, Est GFR (MDRD) Af Amer 14 L, Est GFR (MDRD) Non-Af 12 L, BUN/Creatinine Ratio 8.2 L, Glucose 94, Calcium 8.9 Radiography Diagnostic Testing: Radiology Impression Abdomen/Pelvis CT 09/09/24 12:56 IMPRESSION: Findings suggestive of air in the left lobe of the liver as described and gastric wall thickening with air within the wall. Extensive atherosclerotic calcification of the aorta as well as the major visceral branches as described with possible tight stenosis or possible thrombus. The results were communicated to the attending physician. Reading Location: [facility]- Abdomen/Pelvis CTA 09/09/24 16:10 IMPRESSION: Redemonstration of left hepatic lobe prominent portal venous gas. Redemonstration of gastric wall thickening and flecks of air within the region of the wall. One or more dose reduction techniques were used (e.g., Automated exposure control, adjustment of the mA and/or kV according to patient size, use of iterative reconstruction technique). Reading Location: [id number] Rhythm Strip Rhythm Strip: Sinus Rhythm Rate: 75 Ectopy: PVC(s) Physical Exam Narrative Seen and examined. Patient has intermittent abdominal pain for 1 year. Denies abdominal pain today but he had yesterday. He also gets low blood pressure during hemodialysis. Has CAD with multiple, 3 stents. Chronic atherosclerosis. He also has history of smoking from age of 18 and quit in 1975 therefore 27 pack years for smoking Intermittent cough. Physical exam General: Alert, Oriented x3, Cooperative HEENT: Atraumatic, PERRLA, EOMI, Normocephalic Oral: No Gingival or Mucosal Lesions/ Ulcerations Neck: Supple, No JVD, Negative Carotid Bruits Chest wall/Lungs: Air entry diminished in bilateral lung bases. Mild bilateral expiratory rhonchi's/wheezing Cardiovascular: Regular rate, Regular Rhythm, Normal S1, Normal S2, No M/G/R Abdomen: Bowel Sounds Present, Soft, Non Tender, Non-Distended : No dysuria. No renal angle tenderness. No suprapubic tenderness. Extremities: No edema, Capillary Refill Less than 3 Seconds Skin: No rashes, No breakdown Musculoskeletal: No Tenderness to Palpation of Joints or Extremities Neurological: Cranial nerves II-XII grossly intact, DTR 2+/4. No acute focal neurological deficit. Psych/Mental Status: Normal Affect, Appropriate. Assessment & Plan Assessment/Plan (1) Nonocclusive mesenteric ischemia: (2) Transient hypotension: (3) ESRD on hemodialysis: PLAN: Plan Patient is an 83-year-old male who presented to [facility] ED from hemodialysis center on 09/09/2024 with intermittent abdominal pain with nausea and dizziness. Has abdominal pain for past 1 year 1. Suspected nonocclusive mesenteric ischemia with portal venous gas ? Admit under observation status to PCU. General surgery and vascular surgery consulted. CT abdomen pelvis imaging on admit showed extensive atherosclerotic plaque in the aorta and major visceral branches especially the celiac artery and SMA. Also showed portal venous gas and gastric wall thickening with air within the wall. Patient with no significant abdominal pain, no WBC count elevation and normal lactic acid so no need for general surgery intervention. No arterial thrombus noted on imaging so no need for vascular surgery intervention at this point. Suspect symptoms are due to transient hypotension during dialysis and it may be reasonable to hold patient's home antihypertensive medications especially on days of dialysis to see if this improves his symptoms. Holding antihypertensive agents for now. 09/10: Discussed with the patient to avoid hypotension during hemodialysis. BPs 110/61. Patient was evaluated by vascular surgery and recommended the same. 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 Nonocclusive mesenteric ischemia ablated stool low flow state/hypotension during dialysis. No indication for vascular surgical indication. Avoid dehydration and hypotension 2. ESRD on HD ? Nephrology consulted. On HD MWF, last session on day of admission and reportedly did complete the session. Appreciate nephrology recommendations. 08/24: Hander In note reviewed and aware of not to remove fluid aggressively. 3. History of CAD with stenting, hypertension, hyperlipidemia ? History of stenting back in 2014, no recurrent issues since then. Continue home aspirin and atorvastatin. Will hold home Lasix, nitrate and metoprolol for now as noted above. 4. GERD ? Continue home PPI. 5. BPH with obstructive symptoms ? Continue home finasteride. DVT prophylaxis: Heparin subcu CODE STATUS: Full code, verified Charges/Coding Visit Charges Inpatient E&M: 89757 Subs Hosp L2
[2024-09-10] MEDS: Calcium Acetate 667 MG Capsule PO ×2 (10:46→16:49)
[2024-09-10] MEDS: Pantoprazole Sodium 40 MG Tablet PO (10:46)
[2024-09-10] MEDS: Aspirin E.C. 81 MG Tablet PO (10:46)
[2024-09-10] MEDS: Ensure Plus High Protein 120 ML LIQUID PO (10:49)
--- NOTE | 2024-09-10 10:52 | RAD_ITS ---
PROCEDURE: CHEST PA AND LATERAL REASON FOR EXAM: Cough. Suspected COPD. TECHNIQUE: Frontal and lateral views of the chest. COMPARISON: AP chest of 07/22/2024. RAD/Chest PA and Lateral IMPRESSION: Lungs are at least mildly hyperinflated, with some increased interstitial nestor ngs, suggestive of chronic lung disease. No acute pneumonic process is identified. No pleural effusion or pneumothorax is seen. The cardiomediastinal silhouette is remarkable for a calcified aorta. No evide nce of cardiomegaly. Mild to moderate degenerative changes of the thoracic spine are seen. No evidence of acute cardiopulmonary disease. Reading Location: [id number]
--- NOTE | 2024-09-10 11:37 | PCM.CONS.R ---
Assessment & Plan Assessment/Plan (1) ESRD on hemodialysis: PLAN: On hemodialysis Saturday, Saturday, Saturday. Last dialysis was yesterday. He did have abdominal related complaints for several years now. Previous upper GI endoscopies were negative. CT angiogram reviewed, he has subcritical stenosis and mesenteric vessels. 50% stenosis. Called and spoke to dialysis unit. Will increase dry weight so as to not remove fluids aggressively. Will monitor blood pressure. Goal is to not drop blood pressure significantly. HPI Consult Data Date of Consult: 09/10/24 HPI Narrative Reason for Consultation: ESRD HPI Narrative: LUIS MANUEL CASTILLO, is a 83 M who presents to the hospital with abdominal pain after dialysis yesterday. He was towards the end of his dialysis yesterday, developed sudden onset abdominal pain, associated hypotension. He has had extensive abdominal pain related issues before. We investigated extensively including endoscopy, colonoscopy. At some point this was attributed to Sensipar which was discontinued. He also had hyperparathyroidism, ended up having a parathyroidectomy. Presented with above complaints. Was found to have mesenteric ischemia, noncritical. Currently feels okay. Appetite has been fair. [facility] Medical History Alcohol use History of renal disease Restless legs History of edema History of stress test Hypertension Anemia History of renal dialysis Wears glasses High cholesterol History of ulceration Gastric reflux Former smoker Hoarseness Chronic cough Cardiology follow-up encounter Ventral incisional hernia without obstruction or gangrene Screening for intestinal cancer Osteopenia determined by x-ray Hyperparathyroidism Recurrent inguinal hernia of right side without obstruction or gangrene Recurrent inguinal hernia TIA (transient ischemic attack) Mild renal insufficiency Esophageal reflux Dyslipidemia Hiatal hernia CKD (chronic kidney disease) stage 3, GFR 30-59 ml/min CAD (coronary artery disease), [place]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 Anemia History of heart attack (~09/04/14) Hypertension Home Medications ?Medication ?Instructions ?Recorded ?Last Taken ?Type aspirin 81 mg tablet,delayed 81 mg PO DAILY 04/29/18 09/09/24 History release (Adult Low Dose Aspirin) nitroglycerin 0.4 mg sublingual 0.4 mg sublingual X1 PRN CHEST PAIN 01/12/20 04/12/24 History tablet atorvastatin 40 mg tablet 40 mg PO QHS 11/24/20 09/08/24 History pantoprazole 40 mg tablet,delayed 40 mg PO DAILY 01/19/22 09/09/24 History release metoprolol succinate 25 mg 25 mg PO DAILY 12/24/23 09/08/24 History tablet,extended release 24 hr calcium acetate(phosphat bind) 667 667 mg PO TIDCM 02/17/24 09/09/24 History mg capsule furosemide 40 mg tablet 40 mg PO DAILY 02/23/24 09/09/24 History isosorbide mononitrate 30 mg 30 mg PO DAILY 02/23/24 09/08/24 History tablet,extended release 24 hr finasteride 5 mg tablet 5 mg PO DAILY 09/09/24 09/09/24 History Allergy/AdvReac Type Severity Reaction Status Date / Time lisinopril AdvReac Other Verified 09/09/24 20:22 Family History Mother Colon cancer Father Colon cancer Myocardial infarction Brother Cancer Surgical History History of arteriovenostomy for renal dialysis (~01/2022) History of ventral hernia repair Hx of colonoscopy (~12/17/13) Hx of parathyroidectomy Hx of bilateral inguinal hernia repair Hx of heart artery stent Social History Smoking Status: Former smoker second hand exposure: No alcohol intake: current alcohol intake frequency: a few times a month substance use type: does not use caffeine: Yes what type of physical activity do you participate in: none seatbelt use: always ROS ROS Narrative Negative except above Physical Exam Narrative Alert awake oriented x 3 no obvious distress no pallor no icterus no JVD s1s2 no murmurs lungs clear abdomen soft no organomegaly no edema no cyanosis Lab / Micro Data 09/10/24 05:44 09/10/24 05:44 Labs: Laboratory Results - last 24 hr 09/09/24 12:30: WBC 7.3, RBC 3.53 L, Hgb 10.7 L, Hct 33.2 L, MCV 94.1 H, MCH 30.3, MCHC 32.2, RDW Std Deviation 56.6 H, RDW Coeff of Horacio 16.4 H, Plt Count 187, MPV 10.5, Immature Gran % (Auto) 0.500, Neut % (Auto) 62.3, Lymph % (Auto) 22.6, Warren % (Auto) 9.7, Eos % (Auto) 4.4, Baso % (Auto) 0.5, Absolute Neuts (auto) 4.6, Absolute Lymphs (auto) 1.66, Nucleated RBC % 0, PT 14.5, INR 1.1, APTT 35.3, Sodium 137, Potassium 3.4 L, Chloride 97 L, Carbon Dioxide 31.0, Anion Gap 9, BUN 19 H, Creatinine 3.25 H, Estim Creat Clear Calc 9.04, Est GFR (MDRD) Af Amer 24 L, Est GFR (MDRD) Non-Af 20 L, BUN/Creatinine Ratio 5.8 L, Glucose 128 H, Calcium 8.5, Total Bilirubin 0.60, AST 18, ALT 11 L, Alkaline Phosphatase 103, Troponin I High Sens 37, Total Protein 7.0, Albumin 3.2, Globulin 3.8, Albumin/Globulin Ratio 0.8 L 09/09/24 14:15: Lactic Acid 1.2 09/10/24 05:44: WBC 10.3, RBC 3.51 L, Hgb 10.9 L, Hct 33.0 L, MCV 94.0, MCH 31.1, MCHC 33.0, RDW Std Deviation 56.7 H, RDW Coeff of Horacio 16.5 H, Plt Count 166, MPV 10.5, Sodium 133 L, Potassium 4.4, Chloride 95 L, Carbon Dioxide 29.0, Anion Gap 10, BUN 42 H, Creatinine 5.14 H, Estim Creat Clear Calc 10.36, Est GFR (MDRD) Af Amer 14 L, Est GFR (MDRD) Non-Af 12 L, BUN/Creatinine Ratio 8.2 L, Glucose 94, Calcium 8.9 Rhythm Strip Rhythm Strip: Sinus Rhythm Rate: 75 Ectopy: PVC(s) Imaging Radiology Impression Abdomen/Pelvis CT 09/09/24 12:56 IMPRESSION: Findings suggestive of air in the left lobe of the liver as described and gastric wall thickening with air within the wall. Extensive atherosclerotic calcification of the aorta as well as the major visceral branches as described with possible tight stenosis or possible thrombus. The results were communicated to the attending physician. Reading Location: [id number] Abdomen/Pelvis CTA 09/09/24 16:10 IMPRESSION: Redemonstration of left hepatic lobe prominent portal venous gas. Redemonstration of gastric wall thickening and flecks of air within the region of the wall. One or more dose reduction techniques were used (e.g., Automated exposure control, adjustment of the mA and/or kV according to patient size, use of iterative reconstruction technique). Reading Location: [id number]
--- NOTE | 2024-09-10 12:22 | CHAPLAIN ---
Type of Pastoral Visit _x__ Initial Visit ___ Follow-up Visit ___ On-call Visit ___ General Patient Visit ___ Spiritual Assessment ___ Family Conference ___ Bereavement ___ Rapid Response ___ Code Blue ___ Other (describe below) Pastoral Care Referral From _x__ Patient ___ Family ___ Nurse ___ Physician ___ Form Grader Operator ___ Sterile Processing Manager ___ Other (describe below) Sacrament/Intervention _x__ Active listening ___ Anointing ___ Pentecostal ___ Bereavement ___ Communion _x__ Kimberlyn exploration ___ _x__ Life review _x__ Prayer ___ Reconciliation ___ Sacrament of Sick ___ Supportive presence ___ Wedding ___ Other (describe below) Pastoral Comments spouse of the patient had just arrived and this coagulating bath mixer followed her into the room; both are welcoming of spiritual care support; both describe the last year of 'not feeling well, having no appetite, coughing, and getting no answers as to why'; pt reports that there may be a change in his dialysis and both are encouraged that doctors are investigating and taking this seriously; pt talks about having a good life and seeing the blessings that he has from God; pt reports on a good supportive family and a good [place] community; pt states that even if he dies I have the hope of a better life [facility]; both are talkative and expressive of appreciation for support; prayer is given
[2024-09-10] MEDS: Ondansetron 4 MG/2 ML Vial IV (13:39)
[2024-09-10] MEDS: 0.9% Saline Lock 10 ML Syringe IV ×2 (13:39→21:03)
[2024-09-10 14:10] VITALS: BP 110/61; PULSE 92; RESP 18; TEMP 37.3; O2SAT 93
[2024-09-10] MEDS: Acetaminophen 325 MG Tablet 650 MG PO (16:49)
--- NOTE | 2024-09-10 16:58 | CASEMGMT ---
LIEN CM in to complete RICHEY form with patient. LIEN RYAN explained RICHEY Form, patient voiced understanding. Patient signed RICHEY form and filed in chart. Patient provided with copy of signed RICHEY form. Patient had no further questions or concerns.
[2024-09-10 18:25] VITALS: BP 134/58; PULSE 75; RESP 16; TEMP 37.2; O2SAT 94
[2024-09-10 21:00] VITALS: BP 146/57; PULSE 68; RESP 18; TEMP 36.6; O2SAT 94
[2024-09-10] MEDS: Atorvastatin Calcium 40 MG Tablet PO (21:00)
[2024-09-10] MEDS: guaiFENesin/D-Methorphan TAB.SR.12H 2 TABLET PO (21:00)
[2024-09-11] VITALS (13 sets, daily range): BP systolic 116–225; BP diastolic 54–75; PULSE 64–98; RESP 12–16; TEMP 36.4–36.9; O2SAT 93–97; BMI 26.0
[2024-09-11] MEDS: Heparin Injection (Vial) 5,000 UNIT/ML VIAL 5000 UNIT SC (05:40)
[2024-09-11] MEDS: Heparin 10,000 UNITS/10 ML Vial 4000 UNITS IV (10:15)
[2024-09-11] MEDS: PureFlow B 2K Dialysis Soln 1 BAG 6 BAG PF (10:16)
[2024-09-11] MEDS: 0.9% Normal Saline 1,000 ML IV.SOLN. 1000 ML OPERA.SITE (10:16)
--- NOTE | 2024-09-11 10:20 | PCM.DC ---
Discharge Instructions Diet Discharge Diet: No restrictions DC O2, CPAP, BIPAP needs Home O2 Discharge instructions: No Dressing / Incision Discharge Activity: Return to Normal Activity Weight Bearing Status: Weight bearing as tolerated Dressing / Incision Call your doctor if you observe: Fever of 101 or Higher, Coldness, Increased Pain, Numbness or Tingling, Change in Color, Inability to urinate, Inability to have a bowel movement, Shortness of breath, Dizziness, Fainting spells, Swelling in the ankles, Chest pain, Prolonged hiccupping, Increased palpitations (irregular heartbeat) and Calf discomfort Follow Up Care When: IN 2 WEEKS Test Results: Test results from this visit will be discussed in further detail at your follow-up appointment, if applicable. Discharge Plan Admission Admit Date/Time: 09/09/24 17:33 Primary Reason for Your Visit: Abdominal pain, partial mesenteric artery atherosclerotic/ischemic Attending Provider: Tito Henry Primary Care Provider: Julio Licea Consulting Providers: Chriss Zayas; Antione Montaño; Yg Carrasco Instructions Additional Instructions / Restrictions: Patient has appointment with games manager Dr. Malick Samayoa in October 2024 Discharge Orders/Prescriptions Prescriptions: Continued aspirin [Adult Low Dose Aspirin] 81 mg tablet,delayed release (DR/EC) 81 mg PO DAILY atorvastatin 40 mg tablet 40 mg PO QHS pantoprazole 40 mg tablet,delayed release (DR/EC) 40 mg PO DAILY nitroglycerin 0.4 MG tablet, sublingual 0.4 mg SL X1 PRN (Reason: CHEST PAIN) isosorbide mononitrate 30 mg tablet extended release 24 hr 30 mg PO DAILY finasteride 5 mg tablet 5 mg PO DAILY metoprolol succinate 25 mg tablet extended release 24 hr 25 mg PO DAILY calcium acetate(phosphat bind) 667 mg capsule 667 mg PO TIDCM Changed furosemide 40 mg tablet 40 mg PO DAILY PRN (Reason: leg edema/SOB) 30 Days Qty: 0 0RF Referrals / Follow Up: Julio Licea MD [Primary Care Provider] - Disposition Disposition (needs filled in before D/C Order can be placed): Home, Self Care
[2024-09-11] MEDS: guaiFENesin/D-Methorphan TAB.SR.12H 2 TABLET PO (12:25)
[2024-09-11] MEDS: Aspirin E.C. 81 MG Tablet PO (12:25)
[2024-09-11] MEDS: Calcium Acetate 667 MG Capsule PO (12:25)
[2024-09-11] MEDS: Pantoprazole Sodium 40 MG Tablet PO (12:25)
--- NOTE | 2024-09-11 12:57 | DS.PCM_ITS ---
Providers Date of Admission: 09/09/24 Date of Discharge: 09/11/24 Primary Care Physician: Dr. Julio Licea MD Consultations 09/09/24 19:41 Consult: Nephrology Routine Consulting Provider: Chriss Zayas Reason for Consult: ESRD on HD EMERGENT Consult: No Notified: Yes Date Notified: 09/10/24 Time Notified: 02:28 Method of Notification: Answering Service Consult: Vascular Surgery Routine Consulting Provider: Antione Montaño Reason for Consult: concern for mesenteric ischemia EMERGENT Consult: No Notified: Yes Date Notified: 09/10/24 Time Notified: 06:36 Method of Notification: Text Reason For Visit: INTRACTABLE ABD PAIN W/ POOR P.O. INTAKE Diagnosis Discharge Diagnosis (1) Nonocclusive mesenteric ischemia: Status: Acute Code(s): K55.059 - Acute (reversible) ischemia of intestine, part and extent unspecified (2) Transient hypotension: Status: Acute Code(s): I95.9 - Hypotension, unspecified (3) ESRD on hemodialysis: Status: Acute Code(s): N18.6 - End stage renal disease; Z99.2 - Dependence on renal dialysis Plan Patient is an 83-year-old male who presented to [facility] ED from hemodialysis center on 09/09/2024 with intermittent abdominal pain with nausea and dizziness. Has abdominal pain for past 1 year. He also gets low blood pressure during hemodialysis. Has CAD with multiple, 3 stents. Chronic atherosclerosis. 1. Suspected nonocclusive mesenteric ischemia with portal venous gas ? Admit under observation status to PCU. General surgery and vascular surgery consulted. CT abdomen pelvis imaging on admit showed extensive atherosclerotic plaque in the aorta and major visceral branches especially the celiac artery and SMA. Also showed portal venous gas and gastric wall thickening with air within the wall. Patient with no significant abdominal pain, no WBC count elevation and normal lactic acid so no need for general surgery intervention. No arterial thrombus noted on imaging so no need for vascular surgery intervention at this point. Suspect symptoms are due to transient hypotension during dialysis and it may be reasonable to hold patient's home antihypertensive medications especially on days of dialysis to see if this improves his symptoms. Holding antihypertensive agents for now. 09/10: Discussed with the patient to avoid hypotension during hemodialysis. BPs 110/61. Patient was evaluated by vascular surgery and recommended the same. 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 Nonocclusive mesenteric ischemia ablated stool low flow state/hypotension during dialysis. No indication for vascular surgical indication. Avoid dehydration and hypotension 09/11: Patient was made aware of avoiding hypotension and the cytotechnologist supervisor also knows about that. Possible COPD with chronic cough: Chest x-ray PA and lateral reviewed. Does not have acute cardiopulmonary abnormality but chronic changes probably COPD changes. Patient has appointment with Dr. Malick Samayoa in October 2024. No pneumonic consolidation discharge medication reconciliation done. Discharge follow-up instructions completed. Discharge process discussed with the patient and all questions were answered to patient's satisfaction. Follow with PCP in 1 to 2 weeks Total time spent, exact 35 minutes on discharge meds reconciliation, examination, coordination of care with nurses and ancillary staff, review of imaging and blood test and discussion with the patient on follow-up instructions. 2. ESRD on HD ? Nephrology consulted. On HD MWF, last session on day of admission and reportedly did complete the session. Appreciate nephrology recommendations. 08/24: International Exchange Coordinator note reviewed and aware of not to remove fluid aggressively. 3. History of CAD with stenting, hypertension, hyperlipidemia ? History of stenting back in 2014, no recurrent issues since then. Continue home aspirin and atorvastatin. Will hold home Lasix, nitrate and metoprolol for now as noted above. 4. GERD ? Continue home PPI. 5. BPH with obstructive symptoms ? Continue home finasteride. DVT prophylaxis: Heparin subcu CODE STATUS: Full code, verified Medications at Discharge Home Medications aspirin 81 mg tablet,delayed release (Adult Low Dose Aspirin) 81 mg PO DAILY 04/29/18 nitroglycerin 0.4 mg sublingual tablet 0.4 mg sublingual X1 PRN CHEST PAIN 01/12/20 atorvastatin 40 mg tablet 40 mg PO QHS 11/24/20 pantoprazole 40 mg tablet,delayed release 40 mg PO DAILY 01/19/22 metoprolol succinate 25 mg tablet,extended release 24 hr 25 mg PO DAILY 12/24/23 calcium acetate(phosphat bind) 667 mg capsule 667 mg PO TIDCM 02/17/24 isosorbide mononitrate 30 mg tablet,extended release 24 hr 30 mg PO DAILY 02/23/24 finasteride 5 mg tablet 5 mg PO DAILY 09/09/24 furosemide 40 mg tablet 40 mg PO DAILY PRN leg edema/SOB 30 days #0 tabs 09/11/24 Physical Exam Narrative Seen and examined. He also has history of smoking from age of 18 and quit in 1975 therefore 27 pack years for smoking Intermittent chronic cough. Physical exam General: Alert, Oriented x3, Cooperative HEENT: Atraumatic, PERRLA, EOMI, Normocephalic Oral: No Gingival or Mucosal Lesions/ Ulcerations Neck: Supple, No JVD, Negative Carotid Bruits Chest wall/Lungs: Air entry diminished in bilateral lung bases. Mild bilateral expiratory rhonchi Cardiovascular: Regular rate, Regular Rhythm, Normal S1, Normal S2, No M/G/R Abdomen: Bowel Sounds Present, Soft, Non Tender, Non-Distended : No dysuria. No renal angle tenderness. No suprapubic tenderness. Extremities: No edema, Capillary Refill Less than 3 Seconds Skin: No rashes, No breakdown Musculoskeletal: No Tenderness to Palpation of Joints or Extremities Neurological: Cranial nerves II-XII grossly intact, DTR 2+/4. No acute focal neurological deficit. Psych/Mental Status: Normal Affect, Appropriate. Weight / BMI Weight Weight: 165 lb 12.602 oz Body Mass Index (BMI) 26.0 ABG / Lab / Microbiology Data 09/10/24 05:44 09/10/24 05:44 Radiography Diagnostic Testing: Radiology Impression Chest X-Ray 09/10/24 10:52 IMPRESSION: Lungs are at least mildly hyperinflated, with some increased interstitial markings, suggestive of chronic lung disease. No acute pneumonic process is identified. No pleural effusion or pneumothorax is seen. The cardiomediastinal silhouette is remarkable for a calcified aorta. No evidence of cardiomegaly. Mild to moderate degenerative changes of the thoracic spine are seen. No evidence of acute cardiopulmonary disease. Reading Location: [id number]/C Instructions Discharge Diet: No restrictions Weight Bearing Status: Weight bearing as tolerated Call your doctor if you observe: Fever of 101 or Higher, Coldness, Increased Pain, Numbness or Tingling, Change in Color, Inability to urinate, Inability to have a bowel movement, Shortness of breath, Dizziness, Fainting spells, Swelling in the ankles, Chest pain, Prolonged hiccupping, Increased palpitations (irregular heartbeat) and Calf discomfort DC O2, CPAP, BIPAP Needs Home O2 Discharge instructions: No When: IN 2 WEEKS Meaningful Use Info Meaningful Use Meaningful Use Diagnoses (Choose all that apply): None applicable Ischemic Stroke Statin Dosing Therapy Reference: STATIN DOSE THERAPY REFERENCE: * Patients > 75 years receive moderate or high dose statin therapy. * Patients 75 years or YOUNGER should receive HIGH intensity statin dose unless contraindicated. You will be required to document reason for non-treatment if statin daily dose does not meet guidelines. HIGH DOSE STATIN THERAPY DAILY Atorvastatin > than or = to 40 mg Rosuvastatin > than or = to 20 mg Amlodipine + Atorvastatin > than or = to 2.5/40 mg Ezetimibe + Simvastatin 10/80 mg Simvastatin 80mg Discharge Plan Admission Admit Date/Time: 09/09/24 17:33 Primary Reason for Your Visit: Abdominal pain, partial mesenteric artery atherosclerotic/ischemic Attending Provider: Tito Henry Primary Care Provider: Julio Licea Consulting Providers: Chriss Zayas; Antione Montaño; Yg Carrasco Instructions Additional Instructions / Restrictions: Patient has appointment with director of cardiology service line Dr. Malick Samayoa in October 2024 Discharge Orders/Prescriptions Prescriptions: Continued aspirin [Adult Low Dose Aspirin] 81 mg tablet,delayed release (DR/EC) 81 mg PO DAILY atorvastatin 40 mg tablet 40 mg PO QHS pantoprazole 40 mg tablet,delayed release (DR/EC) 40 mg PO DAILY nitroglycerin 0.4 MG tablet, sublingual 0.4 mg SL X1 PRN (Reason: CHEST PAIN) isosorbide mononitrate 30 mg tablet extended release 24 hr 30 mg PO DAILY finasteride 5 mg tablet 5 mg PO DAILY metoprolol succinate 25 mg tablet extended release 24 hr 25 mg PO DAILY calcium acetate(phosphat bind) 667 mg capsule 667 mg PO TIDCM Changed furosemide 40 mg tablet 40 mg PO DAILY PRN (Reason: leg edema/SOB) 30 Days Qty: 0 0RF Referrals / Follow Up: Julio Licea MD [Primary Care Provider] - Disposition Disposition (needs filled in before D/C Order can be placed): Home, Self Care Charges/Coding Visit Charges Inpatient E&M: 69146 Disch Hosp >30min
--- NOTE | 2024-09-11 13:17 | PCM.PN.REN ---
Subjective Subjective no new complaints Objective Data Objective Data Vital Signs: Vital Signs Temp Pulse Resp BP Pulse Ox O2 Del Method 98.4 F 84 16 145/67 H 95 Room Air 09/11/24 08:00 09/11/24 11:30 09/11/24 11:30 09/11/24 11:30 09/11/24 11:30 09/11/24 11:30 Oxygen Delivery Method Room Air Weight: 75.2 kg Body Mass Index (BMI) 26.0 Intake & Output: Intake and Output for Last 24 Hours 09/09/24 09/10/24 09/11/24 23:59 23:59 23:59 Intake Total 500 / 500 1040 / 1040 240 / 240 Output Total 850 / 850 810 / 810 Balance 500 / 100 190 / 190 -570 / -570 Lab / Micro Data 09/10/24 05:44 09/10/24 05:44 Rhythm Strip Rhythm Strip: Sinus Rhythm Rate: 75 Ectopy: PVC(s) Physical Exam Narrative Alert awake oriented x 3 no obvious distress no pallor no icterus no JVD s1s2 no murmurs lungs clear abdomen soft no organomegaly no edema no cyanosis Assessment & Plan Assessment/Plan (1) ESRD on hemodialysis: PLAN: On hemodialysis Saturday, Saturday, Saturday. HD today see orders Bp is ok
--- NOTE | 2024-09-11 13:25 | CASEMGMT ---
Patient has order for discharge. RN CM in to discuss needs at discharge, at bedside. Patient denies needs or help at discharge. Patient had no further questions or concerns.
== END 2024-09-11 15:20 | disposition home or self-care (01) ==
LOC: ED 17:31 → PCU 18:01
PROVIDERS: Admitting Provider Hospitalist; Emergency Provider Emergency Medicine; PCP Family Medicine; Visit Provider Internal Medicine
DX: K55.059 Acute (reversible) ischemia of intestine, part and extent unspecified (principal); I12.0 Hypertensive chronic kidney disease with stage 5 chronic kidney disease or end stage renal disease; N18.6 End stage renal disease; I95.9 Hypotension, unspecified; E21.3 Hyperparathyroidism, unspecified; I25.10 Atherosclerotic heart disease of native coronary artery without angina pectoris; I70.0 Atherosclerosis of aorta; K21.9 Gastro-esophageal reflux disease without esophagitis; Z79.82 Long term (current) use of aspirin; E78.00 Pure hypercholesterolemia, unspecified; Z87.891 Personal history of nicotine dependence; Z99.2 Dependence on renal dialysis; Z79.899 Other long term (current) drug therapy; N40.1 Benign prostatic hyperplasia with lower urinary tract symptoms; N13.8 Other obstructive and reflux uropathy
CPT/HCPCS: 36415; 71046; 74174; 74177; 80048; 80053; 83605; 84484; 85025; 85027; 85610; 85730; 90937; 93005; 94668; 96372; 96374; 96375; 96376; 97802; 99221; 99285; Q9967; A4216; G0257; G0378; J2405

== ENCOUNTER → 2025-03-18 | Outpatient (CLI) | payer MEDICARE, SELFPAY ==
[2024-09-18 10:18] VITALS: BMI 27.6
--- NOTE | 2025-03-18 07:03 | NM_ITS ---
PROCEDURE: GASTRIC EMPTYING STUDY - 4 HR 03/18/2025 REASON FOR EXAM: N/V TECHNIQUE: The patient ingested a standard solid meal of 2 eggs, 2 slices of bread, 2 pads of butter, and 6 oz of water. There was no vomiting postprandially. Anterior and posterior planar images of the upper abdomen were obtained for 1 minute immediately following the meal at 1h, 2h and 4h if more than 10% of the activity persisted within the stomach. Regions of interest were drawn, and a geometric mean was used to calculate a [id number]. Medications taken in the past 24 hours that may affect gastric emptying: None RADIOPHARMACEUTICAL: Technetium 99 M sulfur colloid DOSE 1.0mCi orally with the solid meal. FINDINGS: During the time of imaging, gastroesophageal reflux was not visualized. Linear fit gastric emptying half-time of 141.37. Raw data gastric emptying half-time of 162.3 minutes. Percent activity remaining in stomach: 1 hour 85 % (normal 37-90%) 2 hours: 74 % (normal 30-60%) 4 hours: 12 % (normal 0-10%) NM/Gastric Emptying Study - 4 HR IMPRESSION: Mildly diminished/delayed solid phase gastric emptying. Reading Location: [place] [id number]
--- OUTSIDE RECORDS SUMMARY | 2025-03-18 07:05 | XMS RPT_ITS | CCD ---
Author Organization [facility] Care Team Providers Care Director Of Investigations Name Role Phone Celestina Piña Unavailable Jana Olea Unavailable PHAY ARTHUR E Unavailable Unavailable PHAY, ARTHUR E Unavailable Unavailable CEBUL, CELESTINA A Unavailable Unavailable PHAY, ARTHUR E Unavailable Unavailable CEBUL, CELESTINA A Unavailable Unavailable CEBUL, CELESTINA A Unavailable Unavailable PHAY, ARTHUR E Unavailable Unavailable PHAY, ARTHUR E Unavailable Unavailable CEBUL, CELESTINA A Unavailable Unavailable Julio Licea MD Primary Care Provider Dr. Julio Licea Primary Care Provider Dr. Rajesh Fletcher Attending Provider JULIO LICEA MD Primary Care Physician Dr. Jc Piña Attending Provider Dr. Julio Licae Referring Provider [phone] Dr. Jc Piña Other Provider Dr. Jc Piña Referring Provider Julio Licea MD Primary Care Provider Julio Licea MD Primary Care Provider Julio Licea MD Primary Care Provider JULIO LICEA Primary Care Unavailable YAYA SUN Referring Unavailable JULIO LICEA Primary Care Unavailable YAYA SUN Referring Unavailable JULIO LICEA Primary Care Unavailable YAYA SUN Attending Unavailable YAYA SUN Admitting Unavailable JULIO LICEA Primary Care Unavailable Julio Licea MD Primary Care Provider Julio Licea MD Primary Care Provider Anahi Laws Unavailable Unavailable PAGE WATT, DR PEÑA Admitting Unavailab marcin LICEA MD, JULIO Jones Primary Care Unavailable SARA GASTON, FAZAL Hernandez Consulting Unavailkaren ALVARADO MD, OMA Attending Unavailable ANUJA WATT, JULIO Jones Primary Care Unavailable ERIK GASTON, EMILIANAAL Attending Unavailable CONNOR GLACIOLOGIST-MAMMOGRAPHER, DWAYNE M Consulting Unavaila chen ANDINO MD, DR CLAIRE Newman Attending Subhash LICEA MD, JULIO Primary Care Unavailable MIKE DANIELSON MD Admitting Unavailable ANUJA WATT, JULIO Jones Primary Care Unavailable JANA SINGH MD Consulting Unavailable SINA WATT, DR CLAIRE Newman Attending Subhash RUIZ DO, FAZAL Hernandez Consulting Unavailkaren Shen GLACIOLOGIST.MAMMOGRAPHER, Deanne Unavailable Kodak HUSSEIN Elana Unavailable [phone] Julio Licea MD Primary Care Provider Kj GLACIOLOGIST.MAMMOGRAPHER, Deanne Unavailable [employer]ak HUSSEIN Elana Unavailable Dr. Julio Licea MD Primary Care Provider [phone] Dr. Julio Licea MD Referring Provider Sindy INTERACTIVE MEDIA MARKETING STRATEGIST-CRose Attending Provider Fazal INTERACTIVE MEDIA MARKETING STRATEGIST-CMartha Attending Provider Yg Carrasco Attending Unavailable Yg Carrasco Consulting Unavailable Julio Licea Primary Care Unavailable Yg Carrasco Admitting Unavailable Marquez, Jayaprakas Consulting Unavailable Chacha Ryder Attending Unavailable Antione Montaño Consulting Unavailable Carl, Tito Consulting Unavailable Yg Carrasco Referring Unavailable Olivia Mayen Attending Unavailable Martha Khoury Referring Unavailable Martha Khoury Attending Unavailable Julio Licea Primary Care Unavailable Anuja, Julio Primary Care Unavailable Jana Olea Referring Unavailable Jana Olea Attending Unavailable [facility], Julio Primary Care Unavailable Jaylene Manuel Attending Unavailable Marquez, Jayaprakas Consulting Unavailable Anuja Julio Primary Care Unavailable Yg Carrasco Admitting Unavailable Tito Henry Attending Unavailable Antione Montaño Consulting Unavailable Danilo, Yg Consulting Unavailable Carl, Tito Attending Unavailable Anuja, Julio Primary Care Unavailable Anuja, Julio Referring Unavailable Olivia Mayen Attending Unavailable Sindy INTERACTIVE MEDIA MARKETING STRATEGIST, Rose Attending Unavailable Anuja, Julio Primary Care Unavailable Anuja, Julio Referring Unavailable Martha Khoury Attending Unavailable Anuja, Julio Primary Care Unavailable Anuja, Julio Referring Unavailable Sindy INTERACTIVE MEDIA MARKETING STRATEGIST, Rose Attending Unavailable Anuja, Julio Primary Care Unavailable Jana Olea Referring Unavailable ANUJA, JULIO A Primary Care Unavailable KNOBLE, DEANNE Referring Unavailable ANUJA, JULIO A Primary Care Unavailable KNOBLE, DEANNE Referring Unavailable JÚNIOR, JAYLENE P Attending Unavailable ANUJA, JULIO A Primary Care Unavailable KNOBLE, DEANNE Referring Unavailable JÚNIOR, JAYLENE P Attending Unavailable ANUJA, JULIO A Primary Care Unavailable JÚNIOR, JAYLENE P Referring Unavailable ANUJA, JULIO A Primary Care Unavailable KNOBLE, DEANNE Attending Unavailable ANUJA, JULIO A Primary Care Unavailable KNOBLE, DEANNE Referring Unavailable ANUJA, JULIO A Referring Unavailable ANUJA, JULIO A Primary Care Unavailable KNOBLE, DEANNE Attending Unavailable ANUJA, JULIO A Primary Care Unavailable KNOBLE, DEANNE Referring Unavailable ANUJA, JULIO A Primary Care Unavailable KNOBLE, DEANNE Attending Unavailable ANUJA, JULIO A Primary Care Unavailable ZAIRA BURNETTE Attending Unavailable JÚNIOR, JAYLENE P Referring Unavailable ANUJA, JULIO A Primary Care Unavailable KNOBLE, DEANNE Attending Unavailable ANUJA, JULIO A Primary Care Unavailable KNOBLE, DEANNE Referring Unavailable ANUJA, JULIO A Primary Care Unavailable KNOBLE, DEANNE Attending Unavailable ANUJA, JULIO A Primary Care Unavailable KNOBLE, DEANNE Referring Unavailable ANUJA, JULIO A Primary Care Unavailable KNOBLE, DEANNE Attending Unavailable ANUJA, JULIO A Primary Care Unavailable KNOBLE, DEANNE Referring Unavailable ANUJA, JULIO A Primary Care Unavailable KNOBLE, DEANNE Attending Unavailable ANUJA, JULIO A Primary Care Unavailable KNOBLE, DEANNE Referring Unavailable ANUJA, JULIO A Primary Care Unavailable KNOBLE, DEANNE Referring Unavailable ANUJA, JULIO A Primary Care Unavailable KNOBLE, DEANNE Referring Unavailable PASCALE WATT, DR ARTHUR Spaulding Admitting Unavailable PASCALE WATT, DR ARTHUR Spaulding Attending Unavailable AUGUSTA STEIN MD, DR FORTE Consulting Unav georgia LICEA MD, JULIO A Primary Care Unavailable LIANNE WATT, EDIE Guzman Consulting Unavailable YAA WATT, ROB Jones Consulting Unavaila chen STARKS MD, DAVIDE Admitting Unavailable MERLINE WATT, JOANN Attending U laury MARKS MD, DR GUTIERREZ Consulting Un available ANUJA WATT, JULIO A Primary Care Unavailable LIANNE WATT, EDIE Guzman Consulting Unavailable PAGE WATT, DR PEÑA Consulting Unavailab marcin RODRIGUEZ MD, MARGO Consulting Unavailable EMIL WATT, MICHAEL Consulting Unavailab marcin PACE MD, OMAIRA Consulting Unavailable JAYMIE WATT, JULIO Vasquez Consulting Unavailable AUGUSTA STEIN MD, DR FORTE Admitting Unav aildaniela STEIN MD, DR FORTE Attending Unav aildaniela MON MD, ROB Jones Consulting Unavaila ble MADDIE FIGUEROA-MAMMOGRAPHER, MITCH Referring Unavail able ANUJA WATT, JULIO A Primary Care Unavailable AUGUSTA STEIN MD, DR FORTE Admitting Unav ailable AUGUSTA STEIN MD, DR FORTE Attending Unav CELY Owens MD Consulting Unavailabl vero LICEA MD, JULIO A Primary Care Unavailable YAA WATT, ORB Jones Consulting Unavaila chen STEIN MD, DR FORTE Attending Unav georgia LICEA MD, JULIO A Primary Care Unavailable MADDIE FIGUEROA-MAMMOGRAPHER, MITCH Attending Unavail able ANUJA WATT, JULIO A Primary Care Unavailable HAY TAVAREZ MD Attending Unavailable ANUJA WATT, JULIO A Primary Care Unavailable HAY TAVAREZ MD Attending Unavailable ANUJA WATT, JULIO A Primary Care Unavailable PASCALE WATT, DR ARTHUR Spaulding Consulting Unavailable THOMAS SON DO Attending Unavailable ANUJA WATT, JULIO A Primary Care Unavailable MICHAEL STEIN MD Attending Unavailab marcin LICEA MD, JULIO A Primary Care Unavailable SINA WATT, DR CLAIRE Newman Attending Subhash LICEA MD, JULIO A Primary Care Unavailable ANUJA WATT, JULIO A Primary Care Unavailable MADDIE FIGUEROA-MAMMOGRAPHER, MITCH Attending Unavail able ANUJA WATT, JULIO A Primary Care Unavailable MADDIE FIGUEROA-VIOLETTE, MITCH Attending Unavail able ANUJA WATT, JULIO A Primary Care Unavailable SINA WATT, DR CLAIRE Newman Attending Subhash LICEA MD, JULIO Jones Primary Care Unavailable MADDIE PADGETT, MITCH Attending Sondra LICEA MD, JULIO Jones Primary Care Unavailable MADDIE PADGETT, MITCH Attending Unavail daniela LICEA MD, JULIO Jones Primary Care Unavailable MADDIE PADGETT, MITCH Attending Unavail daniela TIRADO MD, ROBERTA Mullins Attending Ada LICEA MD, JULIO Jones Primary Care Unavailable Allergies Allergy Classification Reported Allergen(s) Allergy Type Date of Onset Reaction(s) Facility (20 sources) Lisinopril; Translations: [lisinopril] Drug Allergy 1 Cough, Cough (finding) [facility] Work Phone: Comment on above: cough (20 sources) guaiFENesin / Pseudoephedrine; Translations: [PSEUDOEPHEDRINE -GUAIFENESIN] Drug Allergy 5 Unknown [facility] Work Phone: (20 sources) Nizatidine; Translations: [NIZATIDINE] Drug Allergy 5 Unknown [facility] Work Phone: (1 source) Lisinopril Drug Allergy 5 [facility] Medications Current Medications Medication Drug Class(es) Dates Sig (Normalized) Sig (Original) amoxicillin 500 mg / clavulanate 125 mg oral tablet (5 sources) Penicillin-class Antibacterial Start: 02-02-2025 End: 02-07-2025 take 1 tablet by mouth once daily amoxicillin-clavu lanate potassium (AUGMENTIN) 500-125 mg per tablet Indications: Community acquired pneumonia, unspecified laterality Take 1 tablet by mouth once daily for 5 days. Take after dialysis 5 tablet 02/02/2025 02/07/2025 Active Start: 07-06-2024 End: 07-11-2024 take 1 tablet by mouth once daily amoxicillin-clavulanate potassium (AUGMENTIN) 500-125 mg per tablet Indications: Bacterial sinusitis Take 1 tablet by mouth once daily for 5 days. Take after dialysis 5 tablet 07/06/2024 07/11/2024 Active Start: 02-11-2022 End: 02-17-2024 take 1 tablet by mouth every twelve hours Amoxicillin-Pot Clavulanate 875-125 mg tablet Discontinued 875 mg PO Q12H 20 0 February 11, 2022 12:00am February 17, 2024 12:05am Arnuity Ellipta 200 mcg/inh inhalation powder (10 sources) Start: 03-01-2025 take 1 puff(s) by inhalation every twenty-four hours Arnuity Ellipta 200 mcg/inh inhalation powder 1 puff(s), Inhalation, q24h Start Date: 03/01/25 Status: Ordered Repeat number: 1 Start: 10-28-2024 take 1 dose by inhal ation every twenty-four hours Arnuity Ellipta 200 mcg/inh inhalation powder Dose : 200 mcg = 1 inh, Inhalation, q24h, 0 Refill(s) Start Date: 10/28/24 Status: Ordered Repeat number: 1 aspirin 81 mg delayed release oral tablet (20 sources) Platelet Aggregation Inhibitor, Nonsteroidal Anti-inflammatory Drug Start: 12-24-2014 End: 05-27-2026 take 1 tablet by mouth once daily aspirin, enteric coated (ASPIRIN, ENTERIC COATED) 81 mg EC tablet Take 1 tablet by mouth once daily. 0 12/24/2014 Active take 81 mg by mouth once daily a spirin 325 MG Tab take 81 mg by mouth daily. Active Comment on above: Take 1 tablet by shruthi th once daily. atorvastatin 40 mg oral tablet (20 sources) HMG-CoA Reductase Inhibitor Start: 11-07-19 End: 05-27-20 take 1 tablet by mouth once daily for hyperlipidemia atorvastatin (LIPITOR) 40 mg tablet Take 1 tablet by mouth once daily. For cholesterol. 90 tablet 3 10/20/2024 Active Start: 09-04-2014 End: 11-24-2020 take 2 tablets by mouth at bedtime Atorvastatin 20 MG tablet Discontinued 40 mg PO AT BEDTIME September 04, 2014 1:00am November 24, 2020 2:36pm Start: 09-04-2014 End: 11-24-2020 take 40 mg by mouth at bedtime Atorvastatin Discontinu ed 40 MG PO AT BEDTIME September 04, 2014 1:00am November 24, 2020 2:36pm Comment on above: TAKE 1 TABLET BY SHRUTHI TH ONCE DAILY FOR CHOLESTEROL Take 1 tablet by shruthi th once daily. For cholesterol. azithromycin 250 mg oral tablet (1 source) Macrolide Antimicrobial Start: 02-03-20 End: 02-08-20 take 2 tablets by mouth once daily, then take 1 tablet by mouth once daily azithromycin (ZITHROMAX) 250 mg tablet Indications: Community acquired pneumonia, unspecified laterality Take 2 tablets by mouth once daily for 1 day, THEN 1 tablet once daily for 4 days. 6 tablet 02/02/2025 02/07/2025 Active Azithromycin 3 Day Dose Pack 500 mg oral tablet (1 source) Start: 11-19-19 End: 11-24-19 Azithromycin 3 Day Dose Pack 500 mg oral tablet Dose : 500 mg = 1 tab(s), Oral, qDay, X 5 day(s), # 5 tab(s), 0 Refill(s), 11/24/23 11:18:00 AM EDT, Pharmacy: [facility], 170.2, cm, 11/15/23 23:39:00 EDT, Height, 76.5, kg, 11/18/23 12:28:00 EDT, Dosing Weight Start Date: 11/19/23 Stop Date: 11/24/23 Status: Ordered calcitriol 0.93040 mg oral capsule (20 sources) Vitamin D3 Analog Start: 07-13-20 End: 06-18-20 take 1 capsule by mouth twice daily calcitriol (ROCALTROL) 0.25 mcg capsule Take 1 capsule by mouth two times a day. 60 capsule 07/13/2023 06/18/2024 Discontinued (Discontinued by Patient) Start: 12-07-2021 calcitriol 0.2 5 mcg oral capsule Dose : 0.25 mcg = 1 cap(s), Oral, qDay, # 30 cap(s), 0 Refill(s), Pharmacy: [id number], 170.2, cm, 11/30/21 19:06:00 EDT, Height, kg, 12/06/21 11:55:00 EDT, Dosing Weight Start Date: 12/07/21 Status: Ordered Comment on above: Take 1 capsule by mo [facility] two times a day. calcium acetate 667 mg oral capsule (20 sources) Start: 11-06-19 calcium acetate,phosphat bind, (PHOSLO) 667 mg capsule 11/06/2023 Active calcium citrate 950 mg oral tablet (20 sources) Start: 07-13-20 End: 08-12-19 take 1 tablet by mouth four times daily calcium citrate (CALCITRATE) 200 mg (950 mg) tab Take 1 tablet by mouth four times daily. 120 tablet 07/13/2023 Active Comment on above: Take 1 tablet by shruthi th four times daily. cetirizine hydrochloride 10 mg oral tablet (6 sources) Histamine-1 Receptor Antagonist Start: 02-10-20 take 1 tablet by mouth once daily cetirizine (ZYRTEC) 10 mg tablet Indications: Cough productive of clear sputum Take 1 tablet by mouth once daily. 30 tablet 02/09/2025 Active ciprofloxacin 500 mg oral tablet (1 source) Quinolone Antimicrobial Start: 07-02-20 End: 07-04-20 Cipro 500 mg oral tablet Dose : 500 mg = 1 tab(s), Oral, q12h, X 2 day(s), # 4 tab(s), 0 Refill(s), 07/04/24 9:47:00 AM EST, Pharmacy: [id number], Gross hematuria, 170, cm, 07/02/24 9:20:00 EST, Height, 75.6, kg, 07/02/24 9:20:00 EST, Dosing Weight Start Date: 07/02/24 Stop Date: 07/04/24 Status: Ordered clopidogrel 75 mg oral tablet (20 sources) P2Y12 Platelet Inhibitor Start: 11-19-19 End: 01-30-20 take 1 tablet by mouth once clopidogrel (PLAVIX) 75 mg tablet Take 1 tablet by mouth every afternoon. 11/19/2023 Active Comment on above: Take 1 tablet by shruthi th every afternoon. doxazosin 2 mg oral tablet (11 sources) alpha-Adrenergic Ekaterina Start: 12-01-19 doxazosin 2 mg oral tablet Dose : 2 mg = 1 tab(s), Oral, Daily, # 30 tab(s), 0 Refill(s) Start Date: 11/30/21 Status: Ordered Start: 10-06-2021 End: 01-23-2022 take 1 tablet by mouth once doxazosin (CARDURA) 2 mg t ablet Take 2 mg by mouth once daily. Per cardiology 0 10/06/2021 01/23/2022 Discontinued (Discontinued by another Health Care Provider) take 1 tablet by shruthi th once daily doxazosin 4 MG PO TABS take 4 mg by mouth daily. Active Comment on above: Take 2 mg by mouth o nce daily. Per cardiology enteric contrast (will be provided with radiology test) (1 source) Start: 04-10-2024 End: 04-10-2024 take 1 dose by mouth once, then take 1 dose by mouth once enteric contrast (will be provided with radiology test) Indications: Diarrhea, unspecified type , Nausea , Flatulence/gas pain/belching Take 1 Each by mouth one time only for [address] ABD/PEL WO Routine order Administer, As Directed One Time Only, via Oral, Rectal, both Oral and Rectal, Enteric Tube, Stoma or Indwelling Catheter, Enteric Contrast as designated per enteric contrast guidelines 1 Each 04/10/2024 04/10/2024 Active ferric citrate 1000 mg oral tablet (10 sources) Start: 05-14-2022 Auryxia 210 mg oral tablet Dose : 210 mg =, Oral, 0 Refill(s) Start Date: 05/14/22 Status: Ordered Start: 05-09-2022 ferric citrate (AURYXIA) 210 mg iron tab Take 1 tablet by mouth. 0 05/09/2022 Active Comment on above: Take 1 tablet by shruthi th. finasteride 5 mg oral tablet (20 sources) 5-alpha Reductase Inhibitor Start: End: take 1 tablet by mouth once daily Finasteride 5 mg tablet Discontinued 5 mg PO DAILY September 09, 2024 1:00am October 01, 2024 4:01pm prostate Start: 07-02-2024 End: 06-27-2025 finasteride 5 mg oral tablet Dose : 5 mg = 1 tab(s), Oral, Every other day, # 45 tab(s), 3 Refill(s), Pharmacy: [id number], Gross hematuria, 170, cm, 07/02/24 9:20:00 EST, Height, kg, 07/02/24 9:20:00 EST, Dosing Weight Start Date: 07/02/24 Stop Date: 06/27/25 Status: Ordered Quantity: 45.0 Unit: tab(s) Repeat number: 4 Indications: Gross hematuria; 30 actuat fluticasone furoate 0.2 mg/actuat dry powder inhaler (20 sources) Corticosteroid Start: 12-30-2024 End: 03-16-2025 take 1 puff(s) by inhalation once daily ARNUITY ELLIPTA 200 mcg/actuation inhaler Inhale 1 puff as instructed once daily. 12/30/2024 03/16/2025 Discontinued (Changing Therapy/Dosage Form) Start: 11-26-2024 take 1 spray(s) nasa l route once daily fluticasone (FLONASE) 50 mcg/actuation nasal spray Use 1 spray in each nostril once daily. 11/26/2024 Active Start: 10-28-2024 take 50 ug nasal rou te once daily fluticasone proprionate NASAL 50 mcg/ spray 50 mcg Dose = 1 spray(s), Nostril, each, Daily, 0 Refill(s) Start Date: 10/28/24 Status: Ordered Repeat number: 1 Start: 10-02-2024 End: 02-09-2025 take 200 ug by inhalation once daily Fluticasone Furoate (Arnuity Ellipta) 200 mcg/actuation blister with device Discontinued 1 NMA INHALATION daily 3 October 02, 2024 1:00am February 09, 2025 9:03am administer at approximately the same time(s) each day Start: 10-01-2024 End: 02-09-2025 Fluticasone Propionate 50 mcg/actuation spray,suspension Discontinued 2 NMA INTRANASAL DAILY 16 October 01, 2024 1:00am February 09, 2025 9:03am Asthma Unspecified asthma, uncomplicated 30 actuat fluticasone furoate 0.2 mg/actuat / vilanterol 0.025 mg/actuat dry powder inhaler (1 source) Corticosteroid, beta2-Adrenergic Agonist Start: 03-16-2025 take 1 dose by inhalation once daily fluticasone-vilanterol (BREO ELLIPTA) 200-25 mcg/dose inhaler Inhale 1 inhalation as instructed once daily. 1 each 5 03/16/2025 Active 12 hr guaiFENesin 600 mg extended release oral tablet (14 sources) Start: 03-01-2025 Mucinex 600 mg oral tablet, extended release Dose : 600 mg = 1 tab(s), Oral, BID, # 14 tab(s), 0 Refill(s) Start Date: 03/01/25 Status: Ordered Quantity: 14.0 Unit: tab(s) Repeat number: 1 Start: 02-09-2025 take 2 tablets by mo [facility] once daily, then take 1 tablet by mouth every twelve hours Guaifenesin (Mucus Relief Er) 600 mg tablet extended release 12hr Active 1200 mg PO .QD February 09, 2025 12:00am Start: 12-18-2024 take 1 tablet by shruthi once daily guaiFENesin (MUCINEX) 1,200 mg Ta12 Take 1 tablet by mouth once daily. 12/18/2024 Active hydrALAZINE hydrochloride 25 mg oral tablet (3 sources) Arteriolar Vasodilator Start: 03-03-2025 hydrALAZINE (APRESOLINE) 25 mg tablet Take 1 tablet by mouth. 03/05/2025 Active ibuprofen 200 mg oral tablet (20 sources) Nonsteroidal Anti-inflammatory Drug Start: 07-11-2023 End: 06-18-2024 take 200-400 mg by mouth every four hours as needed ibuprofen (MOTRIN) 200 mg tablet Take 1-2 tablets by mouth every 4 hours as needed for pain. 07/11/2023 06/18/2024 Discontinued (Discontinued by Patient) Comment on above: Take 1-2 tablets by mouth every 4 hours as needed for pain. 24 hr isosorbide mononitrate 30 mg extended release oral tablet (20 sources) Nitrate Vasodilator Start: 03-03-2025 isosorbide mononitrate 30 mg oral tablet, extended release Dose : 60 mg = 2 tab(s), Oral, qAM, # 180 tab(s), 3 Refill(s), Pharmacy: [facility], 170.2, cm, 03/01/25 12:01:00 EDT, Height, kg, 03/03/25 9:06:00 EDT, Dosing Weight Start Date: 03/03/25 Status: Ordered Quantity: 180.0 Unit: tab(s) Repeat number: 4 Start: 03-01-2025 isosorbide mon onitrate 30 mg oral tablet, extended release Dose : 30 mg = 1 tab(s), Oral, Sun/Tues/Thurs/Sat Start Date: 03/01/25 Status: Ordered Repeat number: 1 Start: 02-21-2024 End: 10-01-2024 isosorbide mononitrate 30 mg oral tablet, extended release Dose : 30 mg = 1 tab(s), Oral, qAM, , , sat and saturday, # 30 tab(s), 2 Refill(s), Pharmacy: [id number], 170.2, cm, 09/29/24 10:45:00 EST, Height, kg, 09/29/24 10:45:00 EST, Dosing Weight Start Date: 10/08/24 Status: Ordered Quantity: 30.0 Unit: tab(s) Repeat number: 3 methoxy peg-epoetin beta (MIRCERA INJECTION) (18 sources) Start: 03-01-2023 End: 02-28-2024 methoxy peg-epoetin beta (MIRCERA INJECTION) 30 mcg. 0 03/01/2023 02/28/2024 Active Start: 08-10-2022 End: 08-09-2023 methoxy peg-epoetin beta (SD RCERA INJECTION) 60 mcg. 0 08/10/2022 08/09/2023 Active Comment on above: 30 mcg. 60 mcg. metoclopramide 5 mg oral tablet (11 sources) Dopamine-2 Receptor Antagonist Start: 02-03-20 take 1 tablet by mouth every eight hours as needed for nausea and nausea metoclopramide HCl (REGLAN) 5 mg tablet Indications: Nausea Take 1 tablet by mouth three times a day as needed. 90 tablet 02/02/2025 Active montelukast 10 mg oral tablet (1 source) Leukotriene Receptor Antagonist Start: 03-16-20 take 1 tablet by mouth once daily at bedtime montelukast (SINGULAIR) 10 mg tablet Take 1 tablet by mouth daily at bedtime. 30 tablet 11 03/16/2025 Active nitroglycerin 0.4 mg sublingual tablet (20 sources) Nitrate Vasodilator Start: 02-21-20 nitroglycerin 0.4 mg sublingual tablet 0.4 mg Dose = 1 tab(s), Sublingual, q5min, PRN for chest pain, # 25 tab(s), 1 Refill(s), Pharmacy: [id number], 170.2, cm, 12/10/23 9:53:00 EDT, Height, kg, 12/10/23 9:53:00 EDT, Dosing Weight Start Date: 02/21/24 Status: Ordered Quantity: 25.0 Unit: tab(s) Repeat number: 2 Start: 01-12-2020 take 1 tablet under the tongue once as needed for pain Nitroglycerin 0.4 MG tablet, sublingual Active 0.4 mg SL ONE TIME as needed for CHEST PAIN January 12, 2020 12:00am Start: 01-12-2020 Nitroglycerin Active 0.4 MG SL ONE TIME January 12, 2020 12:00am Start: 03-09-2019 nitroglycerin sublingual (NITROSTAT) 0.4 mg SL tablet Dissolve 1 tablet under the tongue every 5 minutes as needed. 25 Bottle of 25 03/09/2019 Active NITROGLYCERIN SL by Sublingual route 3 times daily as needed. Active Comment on above: Dissolve 1 tablet un mora the tongue every 5 minutes as needed. pantoprazole 40 mg delayed release oral tablet (20 sources) Proton Pump Inhibitor Start: End: take 1 tablet by mouth once daily Pantoprazole 40 mg tablet,delayed release (DR/EC) Discontinued 40 mg PO daily February 09, 2025 12:00am February 09, 2025 9:49am Start: 04-03-2024 take 1 tablet by shruthi twice daily pantoprazole 40 mg oral enteric coated tablet 1 tab(s), Oral, BID, # 90 tab(s), 2 Refill(s), Pharmacy: [id number], 170.2, cm, 02/24/24 6:12:00 EDT, Height, kg, 02/24/24 15:33:00 EDT, Dosing Weight Start Date: 04/03/24 Status: Ordered Quantity: 90.0 Unit: tab(s) Repeat number: 3 Start: 12-07-2021 End: 12-17-2024 take 1 tablet by mouth once daily Pantoprazole 40 mg tablet,delayed release (DR/EC) Discontinued 40 mg PO DAILY January 19, 2022 12:00am December 17, 2024 9:02am reflux take 2 tablets by mo [facility] twice daily pantoprazole DR (PROTONIX) 40 mg tablet Take 80 mg by mouth two times a day. Active Comment on above: Take 40 mg by mouth once daily. Take one tablet daily perflutren lipid microspheres 1.3 mL in NaCl (PF) 0.9% 10 mL injection (DEFINITY) (20 sources) Start: 2 End: 3 perflutren lipid microspheres 1.3 mL in NaCl (PF) 0.9% 10 mL injection (DEFINITY) prasugrel 10 mg oral tablet (2 sources) P2Y12 Platelet Inhibitor Prasugrel HCl 10 MG Tab take 10 mg by mouth daily.. Reported on 10/11/2016 Active predniSONE 20 mg oral tablet (7 sources) Start: 5 End: 5 take 1 tablet by mouth once daily at mealtime predniSONE (DELTASONE) 20 mg tablet Indications: Community acquired pneumonia, unspecified laterality Take 1 tablet by mouth once daily for 4 days. Take daily with food. 4 tablet 02/02/2025 02/06/2025 Active Start: 01-20-2025 End: 01-25-2025 take 3 tablets by mouth once daily at mealtime Prednisone 20 mg tablet Discontinued 60 mg PO daily 15 5 0 January 20, 2025 12:00am January 24, 2025 12:00am January 25, 2025 12:08am administer with food or milk Start: 01-12-2020 End: 11-24-2020 take 2 tablets by mouth once daily at mealtime Prednisone 20 MG tablet Discontinued 40 mg PO DAILY January 12, 2020 12:00am November 24, 2020 2:37pm With food Start: 01-12-2020 End: 11-24-2020 take 40 mg by mouth once daily at mealtime Prednisone Discontinued 40 MG PO DAILY January 12, 2020 12:00am November 24, 2020 2:37pm With food sevelamer carbonate 800 mg oral tablet (13 sources) Phosphate Binder Start: 03-01-2025 sevelamer hyd rochloride 800 mg oral tablet Dose : 800 mg = 1 tab(s), Oral, TIDM Start Date: 03/01/25 Status: Ordered Repeat number: 1 Start: 05-13-2023 sevelamer carb yfn (RENVELA) 800 mg tablet TAKE 1 TABLET BY MOUTH WITH EVERY MEAL THREE TIMES A DAY 0 05/13/2023 Active Comment on above: TAKE 1 TABLET BY SHRUTHI TH WITH EVERY MEAL THREE TIMES A DAY 125 ml sodium chloride 9 mg/ml prefilled syringe (20 sources) Start: 10-20-19 End: 01-19-20 sodium chloride 0.9 % (flush) 10 mL (BD POSIFLUSH) spacer (1 source) Start: 10-01-19 spacer Active 0 .ROUTE .MEDSUPPLY 1 0 October 01, 2024 1:00am As directed sulfamethoxazole 400 mg / trimethoprim 80 mg oral tablet (7 sources) Dihydrofolate Reductase Inhibitor Antibacterial, Sulfonamide Antimicrobial Start: 05-18-20 End: 05-27-20 take 1 tablet by mouth once daily sulfamethoxazole -trimethoprim (BACTRIM) 400-80 mg per tablet Take 1 tablet by mouth once daily for 7 days. Take after dialysis 7 tablet 0 05/20/2023 05/27/2023 Active Start: 09-07-2022 End: 09-14-2022 take 1 tablet by mouth twice daily sulfamethoxazole-trimethoprim (BACTRIM D S) 800-160 mg per tablet Take 1 tablet by mouth twice daily for 7 days. 14 tablet 0 09/07/2022 09/14/2022 Active Comment on above: Take 1 tablet by shruthi th twice daily for 7 days. Take 1 tablet by shruthi th once daily for 7 days. Take after dialysis Completed/Discontinued Medications Medication Drug Class(es) Dates Sig (Normalized) Sig (Original) acetaminophen 500 mg oral tablet (20 sources) Start: 07-11-2023 End: 02-02-2025 take 2 tablets by mouth every six hours as needed acetaminophen (TYLENOL EXTRA STRENGTH) 500 mg tablet Take 2 tablets by mouth every 6 hours as needed for pain. 07/11/2023 02/02/2025 Discontinued Comment on above: Take 2 tablets by mo [facility] every 6 hours as needed for pain. acetaminophen 325 mg / HYDROcodone bitartrate 5 mg oral tablet (15 sources) Opioid Agonist Start: 01-20-2021 End: 01-30-2021 Hydrocodone-Acetami nophen 5-325 mg tablet Discontinued 1 {tbl} PO Q8H as needed for pain 5 2 0 January 20, 2021 January 30, 2021 9:18am Ventral incisional hernia without obstruction or gangrene Incisional hernia without obstruction or gangrene Start: 01-20-2021 End: 01-30-2021 take 1 tablet by mouth every eight hours Hydrocodone-Acetaminophen Discontinued 1 TABLET PO Q8H 5 2 January 20, 2021 January 30, 2021 9:18am Start: 01-12-2020 End: 01-15-2020 Hydrocodone-Acetaminophen 1 TABLET tablet Discontinued 1 {tbl} PO EVERY 6 HOURS NEEDED as needed for Pain 10 3 0 January 12, 2020 January 14, 2020 12:00am January 15, 2020 12:02am Arthritis of hip Unilateral primary osteoarthritis, unspecified hip Start: 01-12-2020 End: 01-15-2020 take 1 tablet by mouth every six hours as needed Hydrocodone-Acetaminophen Discontinued 1 TABLET PO EVERY 6 HOURS NEEDED 10 3 January 12, 2020 January 15, 2020 12:02am Start: 05-21-2018 End: 05-24-2018 Hydrocodone-Acetaminophen 1 TABLET tablet Discontinued 1 {tbl} PO EVERY 4 HOURS NEEDED as needed for Pain 8 3 0 May 21, 2018 12:00am May 23, 2018 12:00am May 24, 2018 12:11am Postoperative pain Other acute postprocedural pain Start: 05-21-2018 End: 05-24-2018 take 1 tablet by mouth every four hours as needed Hydrocodone-Acetaminophen Discontinued 1 TABLET PO EVERY 4 HOURS NEEDED 8 3 May 21, 2018 12:00am May 24, 2018 12:11am [id number] 200 actuat albuterol 0.09 mg/actuat metered dose inhaler (20 sources) beta2-Adrenergic Agonist Start: 10-01-2024 End: 02-09-2025 Albuterol Sulfate 90 mcg/actuation HFA aerosol inhaler Discontinued 2 NMA INHALATION EVERY 4 HOURS as needed for wheezing October 01, 2024 1:00am February 09, 2025 9:01am Start: 09-22-2024 take 2 puff(s) by in halation every four hours as needed for wheezing albuterol HFA (PROVENTIL HFA, VENTOLIN HFA) 90 mcg/actuation inhaler Indications: SOB (shortness of breath) Inhale 2 Puffs as instructed every 4 hours as needed for wheezing/shortness of breath. 1 Each 1 09/22/2024 Active amLODIPine 5 mg oral tablet (20 sources) Dihydropyridine Calcium Channel Ekaterina Start: 01-19-2022 take 5 mg by mouth once daily Amlodipine Active 5 MG PO DAILY January 19, 2022 1:03pm Start: 12-19-2021 End: 09-09-2024 take 1 tablet by mouth once daily Amlodipine 5 mg tablet Discontinued 5 mg PO DAILY February 23, 2024 12:00am September 09, 2024 7:18pm Start: 12-15-2021 take 0.5 tablet by m outh once daily amLODIPine (NORVASC) 10 mg tablet Take 0.5 tablets by mouth once daily. 90 tablet 1 12/15/2021 Active Start: 12-07-2021 amLODIPine 5 m g oral tablet Dose : 5 mg = 1 tab(s), Oral, qDay, # 30 tab(s), 0 Refill(s), Pharmacy: [id number], 170.2, cm, 11/30/21 19:06:00 EDT, Height, kg, 12/06/21 11:55:00 EDT, Dosing Weight Start Date: 12/07/21 Status: Ordered Start: 11-24-2020 End: 01-19-2022 take 1 tablet by mouth once daily Amlodipine 10 mg tablet Discontinued 10 mg PO DAILY November 24, 2020 12:00am January 19, 2022 1:16pm Start: 10-27-2019 End: 11-24-2020 take 2 tablets by mouth once daily Amlodipine (Norvasc) 5 mg tablet Discontinued 10 mg PO DAILY October 27, 2019 12:00am November 24, 2020 2:36pm Start: 09-04-2014 End: 10-27-2019 take 1 tablet by mouth once daily Amlodipine 5 MG tablet Discontinued 5 mg PO DAILY September 04, 2014 1:00am October 27, 2019 1:57pm Comment on above: Take 1 tablet by shruthi once daily. Take 0.5 tablets by mouth once daily. Benzocaine (1 source) Standardized Chemical Allergen Start: 2023 End: 2023 1 Pierre, TOPICAL, DIRECTED, Starting on Radha 06/11/24 at 1000, Until Radha 06/11/24 at 1359, Dosing as directed for intraprocedural use only - Pharmaceutical Waste: Aerosol -, Intraprocedure benzonatate 200 mg oral capsule (1 source) Non-narcotic Antitussive Start: 2024 End: 2024 take 1 capsule by mouth three times daily as needed for cough Benzonatate 200 mg capsule Discontinued 200 mg PO THREE TIMES A DAY as needed for cough 90 0 January 29, 2025 12:00am February 09, 2025 9:02am calcium carbonate/vitamin D2 ([id number]-394-I ORAL) (1 source) End: 2020 calcium carbonate/vitamin D2 ([id number] ORAL) Take by mouth. 07/20/2021 Discontinued (Discontinued by another Health Care Provider) calcium chloride 0.0014 meq/ml / potassium chloride 0.004 meq/ml / sodium chloride 0.103 meq/ml / sodium lactate 0.028 meq/ml injectable solution (1 source) Start: 2023 End: 2023 take 30 mL intravenously every hour 30 mL/hr, INTRAVENOUS, CONTINUOUS, Starting on Radha 06/11/24 at 0900, Until Radha 06/11/24 at 0955, Preprocedure cholecalciferol 0.05 mg oral capsule (7 sources) Vitamin D Start: 2019 End: 2021 take 2 capsules by mouth once daily Cholecalciferol (Vitamin D3) 2,000 UNIT capsule Discontinued 4000 U PO DAILY December 18, 2019 12:00am January 19, 2022 1:16pm Start: 12-18-2019 End: 01-19-2022 take 4000 [IU] by mouth once daily Cholecalciferol (Vitamin D3) Discontinued 4000 UNIT PO DAILY December 18, 2019 12:00am January 19, 2022 1:16pm take 2 capsules by m out once, then take 1 capsule by mouth Cholecalciferol (VITAMIN D) 2000 units Cap take 4,000 Units by mouth daily.. Active cholecalciferol, vitamin D3, (VITAMIN D3 ORAL) (1 source) End: 07-20-2021 cholecalciferol, vitamin D3, (VITAMIN D3 ORAL) Take by mouth. 07/20/2021 Discontinued (Discontinued by Patient) cinacalcet 30 mg oral tablet (9 sources) Calcium-sensin g Receptor Agonist Start: 06-27-2022 cinacalcet (SENSIPAR) 30 mg tablet Take 1 tablet by mouth. 0 06/27/2022 Active Comment on above: Take 1 tablet by shruthi th. 1 ml fentaNYL 0.05 mg/ml injection (1 source) Opioid Agonist Start: 06-11-2024 End: 06-11-2024 25-100 mcg, INTRAVENOUS, DIRECTED, Starting on Radha 06/11/24 at 1000, Until Radha 06/11/24 at 1359, DOSING DIRECTED BY PHYSICIAN FOR PROCEDURAL SEDATION ONLY, Intraprocedure Fluticasone Propionate (Flovent Hfa) 220 mcg/actuation HFA aerosol inhaler (1 source) Start: 10-01-2024 End: 10-02-2024 Fluticasone Propionate (Flovent Hfa) 220 mcg/actuation HFA aerosol inhaler Discontinued 2 NMA INHALATION TWICE A DAY 12 October 01, 2024 1:00am October 02, 2024 1:47pm administer with spacer furosemide 40 mg oral tablet (20 sources) Loop Diuretic Start: 12-17-2024 End: 02-09-2025 take 1 tablet by mouth once daily Furosemide 40 mg tablet Discontinued 40 mg PO daily December 17, 2024 12:00am February 09, 2025 9:03am Start: 07-06-2024 End: 09-22-2024 take 0.5 tablet by mouth once furosemide (LASIX) 80 mg tablet Take 0.5 tablets by mouth once daily. Per Marc Reveles 07/06/2024 09/22/2024 Discontinued Start: 01-15-2024 End: 10-01-2024 take 1 tablet by mouth once daily as needed for edema Furosemide 40 mg tablet Discontinued 40 mg PO DAILY as needed for leg edema/SOB 0 30 0 September 11, 2024 1:52pm October 01, 2024 3:59pm Start: 06-25-2023 Lasix 40 mg or al tablet Dose : 40 mg = 1 tab(s), Oral, qDay, # 90 tab(s), 2 Refill(s), Pharmacy: [facility], 170, cm, 04/10/23 15:00:00 EDT, Height, kg, 04/10/23 15:00:00 EDT, Dosing Weight Start Date: 06/25/23 Status: Ordered Start: 09-06-2022 End: 07-06-2024 furosemide (LASIX) 80 mg tab let 1 tablet once daily. Per Marc Reveles 09/06/2022 07/06/2024 Discontinued (Adjust Sig - Block E-Cancel) Start: 06-25-2022 Lasix 40 mg or al tablet Dose : 40 mg = 1 tab(s), Oral, qDay, # 90 tab(s), 1 Refill(s), Pharmacy: [facility] ([facility]), 170.2, cm, 05/14/22 14:04:00 EDT, Height, kg, 05/14/22 14:04:00 EDT, Dosing Weight Start Date: 06/25/22 Status: Ordered Start: 01-19-2022 End: 09-06-2022 furosemide (LASIX) 80 mg tab let 1 tablet twice daily. Per Marc Reveles 0 01/23/2022 09/06/2022 Discontinued (Adjust Sig - Block E-Cancel) Start: 12-07-2021 Lasix 40 mg or al tablet Dose : 80 mg = 2 tab(s), Oral, BID, # 120 tab(s), 0 Refill(s), Pharmacy: [id number], 170.2, cm, 11/30/21 19:06:00 EDT, Height Start Date: 12/07/21 Status: Ordered Start: 05-16-2021 End: 01-23-2022 furosemide (LASIX) 20 mg tab let 40 mg twice daily. 05/16/2021 01/23/2022 Discontinued (Adjust Sig - Block E-Cancel) Start: 05-16-2021 furosemide (LA SIX) 20 mg tablet Comment on above: 40 mg twice daily. 1 tablet twice daily . Per Marc Reveles 1 tablet once daily. Per Marc Reveles hydroCHLOROthiazide 25 mg oral tablet (8 sources) Thiazide Diuretic Start: 015 End: 022 take 1 tablet by mouth once daily Hydrochlorothiazide 25 MG tablet Discontinued 25 mg PO DAILY September 04, 2014 1:00am January 19, 2022 1:05pm take 2 tablets by mouth once justino ly Hydrochlorothiazide 12.5 MG PO TABS take 25 mg by mouth daily. Active lansoprazole 30 mg delayed release oral capsule (20 sources) Proton Pump Inhibitor Start: 06-19-2024 End: 02-09-2025 take 1 capsule by mouth once daily Lansoprazole 30 mg capsule,delayed release(DR/EC) Discontinued 30 mg PO daily December 17, 2024 12:00am February 09, 2025 9:04am losartan potassium 100 mg oral tablet (7 sources) Angiotensin 2 Receptor Ekaterina Start: 09-04-2014 End: 10-27-2019 take 1 tablet by mouth once daily Losartan 100 MG tablet Discontinued 100 mg PO DAILY September 04, 2014 1:00am October 27, 2019 1:57pm 24 hr metoprolol succinate 25 mg extended release oral tablet (20 sources) beta-Adrenergic Ekaterina Start: 12-29-2024 End: 12-30-2024 take 1 tablet by mouth in the morning metoprolol succinate 25 mg oral TABLET extended release Start: 12/30/24 8:00:00 AM EDT, Dose = 25 mg, = 1 tab(s), Oral, 12/29/24 14:14:00 EDT Start Date: 12/30/24 Stop Date: 12/30/24 Status: Completed Repeat number: 1 Start: 08-24-2024 End: 11-18-2024 metoprolol succinate 25 mg o ral TABLET extended release Dose : 25 mg = 1 tab(s), Oral, qDay, Do not crush or chew (controlled release), # 90 tab(s), 1 Refill(s), Pharmacy: [id number], 170, cm, 07/02/24 9:20:00 EST, Height, kg, 07/02/24 9:20:00 EST, Dosing Weight Start Date: 08/24/24 Status: Ordered Quantity: 90.0 Unit: tab(s) Repeat number: 2 Start: 07-06-2024 End: 09-22-2024 take 0.5 tablet by mouth once daily metoprolol tartrate, short acting, (LOPRESSOR) 50 mg tablet Take 0.5 tablets by mouth once daily. 07/06/2024 09/22/2024 Discontinued Start: 05-10-2024 End: 05-12-2024 metoprolol succinate 25 mg o ral TABLET extended release Start: 05/12/24 8:00:00 AM EDT, Dose = 50 mg, = 1 tab(s), Oral, 0, 05/08/24 6:45:00 EDT Start Date: 05/12/24 Stop Date: 05/12/24 Status: Completed Start: 02-25-2024 End: 02-25-2024 metoprolol succinate 25 mg o ral TABLET extended release Start: 02/25/24 8:00:00 AM EDT, Dose = 25 mg, = 1 tab(s), Oral, 0, 02/24/24 6:48:00 EDT Start Date: 02/25/24 Stop Date: 02/25/24 Status: Completed Start: 02-24-2024 End: 02-24-2024 metoprolol succinate 25 mg o ral TABLET extended release Start: 02/24/24 8:00:00 AM EDT, Dose = 25 mg, = 1 tab(s), Oral, 0, 02/24/24 6:48:00 EDT Start Date: 02/24/24 Stop Date: 02/24/24 Status: Completed Start: 11-19-2023 End: 02-09-2025 metoprolol succinate 25 mg o ral TABLET extended release Dose : 50 mg = 2 tab(s), Oral, qDay, Do not crush or chew (controlled release), # 90 tab(s), 0 Refill(s) Start Date: 05/08/24 Status: Ordered Start: 11-18-2023 End: 11-19-2023 metoprolol succinate 25 mg o ral TABLET extended release Start: 11/19/23 8:00:00 AM EDT, Dose = 25 mg, = 1 tab(s), Oral, give with food, 0, 11/16/23 8:37:00 EDT Start Date: 11/19/23 Stop Date: 11/19/23 Status: Completed Start: 11-17-2023 End: 11-17-2023 metoprolol succinate 25 mg o ral TABLET extended release Start: 11/17/23 8:00:00 AM EDT, Dose = 25 mg, = 1 tab(s), Oral, give with food, 0, 11/16/23 8:37:00 EDT Start Date: 11/17/23 Stop Date: 11/17/23 Status: Completed Start: 10-24-2023 take 0.5 tablet by m outh once daily metoprolol tartrate 50 mg oral tablet See Instructions, 0.5 tab daily, 0 Refill(s) Start Date: 10/24/23 Status: Ordered Start: 11-23-2022 End: 11-18-2023 metoprolol succinate 25 mg o ral TABLET extended release Dose : 12.5 mg = 0.5 tab(s), Oral, qDay, Do not crush or chew (controlled release), # 45 tab(s), 3 Refill(s), Pharmacy: [facility] ([facility] ), 170.2, cm, 11/22/22 14:42:00 EDT, Height, kg, 11/22/22 14:42:00 EDT, Dosing Weight Start Date: 11/23/22 Stop Date: 11/18/23 Status: Ordered Start: 01-23-2022 End: 07-06-2024 metoprolol tartrate, short a cting, (LOPRESSOR) 50 mg tablet 0.5 tablets twice daily. 09/06/2022 07/06/2024 Discontinued (Adjust Sig - Block E-Cancel) Start: 01-19-2022 End: 02-17-2024 take 1 tablet by mouth once daily Metoprolol Tartrate 50 mg tablet Discontinued 50 mg PO DAILY January 19, 2022 12:00am February 17, 2024 12:05am On Hold: Pt has been DC'd Start: 12-11-2021 take 0.5 tablet by m outh in the morning, then take 1 tablet by mouth in the evening metoprolol succinate 50 mg oral TABLET extended release See Instructions, 0.5 tab AM 1 tab PM, # 45 tab(s), 3 Refill(s), Pharmacy: [id number], 170.2, cm, 12/11/21 13:13:00 EDT, Height Start Date: 12/11/21 Status: Ordered Start: 12-07-2021 End: 12-07-2021 Metoprolol Tartrate 25 mg or al tablet Start: 12/07/21 17:00:00 EDT, Dose = 25 mg, = 1 tab(s), Oral, 1st dose location: [place] [id number], 11/30/21 22:40:00 EDT Start Date: 12/07/21 Stop Date: 12/07/21 Status: Completed Start: 12-06-2021 End: 12-07-2021 Metoprolol Tartrate 25 mg or al tablet Start: 12/07/21 8:00:00 EDT, Dose = 25 mg, = 1 tab(s), Oral, 1st dose location: [place] [id number], 11/30/21 22:40:00 EDT Start Date: 12/07/21 Stop Date: 12/07/21 Status: Completed Start: 07-20-2021 End: 01-23-2022 take 1 tablet by mouth twice daily, then take 0.5 tablet by mouth in the morning, then take 1 tablet by mouth in the evening metoprolol tartrate, short acting, (LOPRESSOR) 50 mg tablet Take 1 tablet by mouth twice daily. Taken 1/2 tablet am and 1 tablet in pm 180 tablet 1 12/15/2021 01/23/2022 Discontinued Start: 10-27-2019 End: 02-17-2024 take 1 tablet by mouth at bedtime Metoprolol Tartrate 25 mg tablet Discontinued 25 mg PO BEDTIME January 19, 2022 1:05pm February 17, 2024 12:05am On Hold: Pt has been DC'd take 2 tablets by [facility] twice daily metoprolol 25 MG tab regular release take 50 mg by mouth 2 times daily. Active Comment on above: Take 1 tablet by [facility] twice daily. Take 1 tablet by [facility] twice daily. Taken 1/2 tablet am and 1 tablet in pm Taken 1/2 tablet am and 1 tablet in pm. Per Cardiology at [place] Taken 1/2 tablet am and 1 tablet in pm. Take 0.5 tablet in t he AM and 1 tablet in the pm 0.5 tablets twice da [place]. 0.5 tablets twice da [place]. Take 1 tablet twice daily 5 ml midazolam 1 mg/ml injection (1 source) Benzodiazepine Start: 06-11-20 End: 06-11-20 1-5 mg, INTRAVENOUS, DIRECTED, Starting on Radha 06/11/24 at 1000, Until Radha 06/11/24 at 1359, DOSING DIRECTED BY PHYSICIAN FOR PROCEDURAL SEDATION ONLY, Intraprocedure [place]-3 Fatty Acids (Fish Oil Concentrate) 1,000 mg capsule (5 sources) Start: 12-29-19 End: 01-20-20 take 1 capsule by mouth once daily [place]-3 Fatty Acids (Fish Oil Concentrate) 1,000 mg capsule Discontinued 1000 MG PO DAILY December 28, 2020 9:41am January 19, 2022 1:16pm Start: 12-28-2020 take 1 capsule by [facility] once daily [place]-3 Fatty Acids (Fish Oil Concentrate) 1,000 mg capsule Active 1000 MG PO DAILY December 28, 2020 9:41am Start: 12-28-2020 End: 01-19-2022 take 1 capsule by mouth once daily [place]-3 Fatty Acids (Fish Oil Concentrate) 1,000 mg capsule Discontinued 1000 mg PO DAILY December 28, 2020 12:00am January 19, 2022 1:16pm Start: 12-28-2020 End: 01-19-2022 take 1 capsule by mouth once daily [place]-3 Fatty Acids (Fish Oil Concentrate) 1,000 mg capsule Discontinued 1000 MG PO DAILY December 28, 2020 12:00am January 19, 2022 1:16pm omeprazole 40 mg delayed release oral capsule (14 sources) Proton Pump Inhibitor Start: 11-17-2021 End: 02-22-2022 take 1 capsule by mouth once daily before breakfast omeprazole (PRILOSEC) 40 mg capsule Indications: Dyspepsia Take 1 capsule by mouth daily before breakfast. 1/2 hr before meal. 30 capsule 3 11/17/2021 02/22/2022 Discontinued Start: 10-19-2021 End: 11-17-2021 take 1 capsule by mouth once daily before breakfast omeprazole (PRILOSEC) 20 mg capsule Indications: Dyspepsia Take 1 capsule by mouth daily before breakfast. 1/2 hr before meal. 30 capsule 3 10/19/2021 11/17/2021 Discontinued take 1 capsule by [facility] once daily omeprazole [address] Indications: Symptomatic Gastroesophageal Reflux Disease take 40 mg by mouth daily. Indications: Gastroesophageal Reflux Disease with Current Symptoms Active Comment on above: Take 1 capsule by [facility] daily before breakfast. 1/2 hr before meal. sucroferric oxyhydroxide 500 mg chewable tablet (5 sources) Start: 03-02-20 End: 09-06-19 23 take 500 mg by mouth three times daily at mealtime sucroferric oxyhydroxide (VELPHORO) 500 mg chew Take 500 mg by mouth three times daily with meals. Pt called in and report dialysis had started him on this. 0 03/02/2022 09/06/2022 Discontinued (Discontinued by Patient) Comment on above: Take 500 mg by mouth three times daily with meals. Pt called in and report dialysis had started him on this. tamsulosin hydrochloride 0.4 mg oral capsule (20 sources) alpha-Adrenergic Ekaterina Start: 01-12-20 End: 02-23-20 take 1 capsule by mouth once daily Tamsulosin 0.4 mg capsule Discontinued 0.4 mg PO DAILY November 24, 2020 12:00am January 19, 2022 1:04pm Comment on above: Take 1 capsule by mo ut daily at bedtime. Problems Active Problems Problem Classification Problem Date Documented Date Episodic/Chronic Abdominal pain (5 sources) Indigestion; Translations: [Epigastric pain] Onset: 5 Episodic Acute and unspecified renal failure (1 source) Acute renal failure syndrome; Translations: [Acute kidney failure, unspecified] Episodic Acute myocardial infarction (3 sources) Non-ST elevation (NSTEMI) myocardial infarction; Translations: [Non-ST elevation (NSTEMI) myocardial infarction] Chronic Asthma (2 sources) Unspecified asthma, uncomplicated; Translations: [Uncomplicated mild persistent asthma] Onset: 5 03-16-2025 Chronic Cardiac dysrhythmias (20 sources) Ventricular premature beats 04-14-2020 Chronic Chronic kidney disease (20 sources) Chronic kidney disease stage 4; Translations: [Chronic kidney disease, stage 4 (severe)] Onset: 7 05-10-2021 Chronic Complication of device; implant or graft (1 source) Complication associated with vascular device; Translations: [Mechanical complication of other vascular device, implant, and graft] 05-09-2022 Episodic Complications of surgical procedures or medical care (4 sources) History of parathyroidectomy; 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 Deficiency and other anemia (20 sources) Anemia of chronic disease; Translations: [Anemia in other chronic diseases classified elsewhere] Onset: 4 12-26-2020 Chronic Deficiency and other anemia (3 sources) Anemia of chronic renal failure; Translations: [Anemia in chronic kidney disease] Chronic Deficiency and other anemia (1 source) Anemia in chronic kidney disease; Translations: [Anemia in chronic kidney disease] Onset: 5 Chronic Deficiency and other anemia (20 sources) Anemia; Translations: [Anemia, unspecified] Onset: 2 Episodic Deficiency and other anemia (5 sources) Anemia, unspecified; Translations: [Anemia, unspecified] Onset: 5 Episodic Disorders of lipid metabolism (20 sources) Mixed hyperlipidemia; Translations: [Mixed hyperlipidemia] Onset: 4 12-26-2020 Chronic Esophageal disorders (20 sources) Gastroesophageal reflux disease without esophagitis; Translations: [Gastro-esophageal reflux disease without esophagitis] Onset: 2 Resolved: 4 12-26-2020 Chronic Esophageal disorders (1 source) Esophageal disorders; Translations: [Gastroesophageal reflux disease with esophagitis without hemorrhage] Onset: 4 Essential hypertension (20 sources) Benign essential hypertension; Translations: [Essential (primary) hypertension] Onset: 5 12-26-2020 Chronic Comment on above: STILL OCCASIONALLY H IGH IN MORNINGS 156/72 Fluid and electrolyte disorders (5 sources) Hypo-osmolality and or hyponatremia; Translations: [Hypo-osmolality and hyponatremia] Onset: 5 Episodic Gastritis and duodenitis (3 sources) Gastritis; Translations: [Gastritis, unspecified, without bleeding] Onset: 5 02-02-2025 Episodic Genitourinary symptoms and ill-defined conditions (20 sources) Scalding pain on urination ; Translations: [Dysuria] Onset: 4 05-17-2023 Episodic Heart valve disorders (20 sources) Nonrheumatic aortic (valve) stenosis; Translations: [Aortic valve disorders] Onset: 2 Chronic Hyperplasia of prostate (20 sources) Benign prostatic hypertrophy with outflow obstruction; Translations: [Benign prostatic hyperplasia with lower urinary tract symptoms] Onset: 5 12-26-2020 Chronic Hypertension with complications and secondary hypertension (7 sources) 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; Translations: [Hypertensive heart and chronic kidney disease with heart failure and with stage 5 chronic kidney disease, or end stage renal disease] Onset: 5 Chronic Lymphadenitis (2 sources) Cervical lymphadenitis; Translations: [Nonspecific lymphadenitis, unspecified] 02-19-2022 Episodic Nutritional deficiencies (20 sources) Vitamin D deficiency; Translations: [Vitamin D deficiency, unspecified] Onset: 4 09-21-2023 Chronic Other and unspecified benign neoplasm (20 sources) History of polyp of colon; Translations: [Personal history of colonic polyps] 12-26-2020 Episodic Other bone disease and musculoskeletal deformities (4 sources) X-ray evidence of poor mineralization; Translations: [Other specified disorders of bone density and structure, unspecified site] Episodic Other bone disease and musculoskeletal deformities (1 source) Osteopenia; Translations: [Other specified disorders of bone density and structure, unspecified site] 10-27-2019 Episodic Other circulatory disease (1 source) H/O: artificial organ/tissue; Translations: [Presence of other vascular implants and grafts] Chronic Other circulatory disease (1 source) Arteriovenous fistula; Translations: [Arteriovenous fistula, acquired] 10-08-2024 Chronic Other circulatory disease (2 sources) Abnormal chest sounds; Translations: [Other specified symptoms and signs involving the circulatory and respiratory systems] 09-22-2024 Episodic Other circulatory disease (1 source) Transient hypotension; Translations: [Hypotension, unspecified] 09-19-2024 Episodic Other connective tissue disease (1 source) Bursitis of left shoulder; Translations: [Bursitis of left shoulder] Episodic Other diseases of kidney and ureters (2 sources) Hyperparathyroidism due to renal insufficiency; Translations: [Secondary hyperparathyroidism of renal origin] 05-21-2023 Chronic Other diseases of kidney and ureters (2 sources) Secondary hyperparathyroidism of renal origin; Translations: [Secondary renal hyperparathyroidism (HCC)] Onset: 3 Chronic Other diseases of kidney and ureters (5 sources) Renal insufficiency; Translations: [Disorder of kidney and ureter, unspecified] 04-29-2018 Episodic Other diseases of kidney and ureters (2 sources) Cyst of kidney; Translations: [Cyst of kidney, acquired] 04-24-2024 Episodic Other endocrine disorders (2 sources) Hypoparathyroidism; Translations: [Hypoparathyroidism] Onset: 8 07-08-2018 Chronic Other endocrine disorders (20 sources) Primary hyperparathyroidism; Translations: [Primary hyperparathyroidism] Onset: 7 12-26-2020 Chronic Other endocrine disorders (8 sources) Hyperparathyroidism; Translations: [Hyperparathyroidism, unspecified] 07-11-2023 Chronic Other endocrine disorders (1 source) Secondary hyperparathyroidism; Translations: [Secondary hyperparathyroidism, not elsewhere classified] Chronic Other gastrointestinal disorders (2 sources) Diarrhea; Translations: [Diarrhea, unspecified] 04-10-2024 Episodic Other gastrointestinal disorders (2 sources) Abdominal bloating; Translations: [Abdominal distension (gaseous)] 04-10-2024 Episodic Other hematologic conditions (1 source) Precipitous drop in hematocrit; Translations: [Precipitous drop in hematocrit] Episodic Other hereditary and degenerative nervous system conditions (20 sources) Essential tremor; Translations: [Essential tremor] Onset: 0 12-26-2020 Chronic Other lower respiratory disease (2 sources) Lung mass; Translations: [Lung nodule] 03-02-2013 Episodic Other lower respiratory disease (4 sources) Cough; Translations: [Cough] Episodic Other lower respiratory disease (10 sources) Dyspnea; Translations: [Shortness of breath] Episodic Other lower respiratory disease (7 sources) Wheezing; Translations: [Wheezing] 07-06-2024 Episodic Other lower respiratory disease (5 sources) Productive cough -clear sputum; Translations: [Cough productive of clear sputum] 07-06-2024 Episodic Other lower respiratory disease (1 source) Chronic cough; Translations: [Chronic cough] Onset: 5 Episodic Other nutritional; endocrine; and metabolic disorders (2 sources) Other disorders of phosphorus metabolism; Translations: [Other disorders of phosphorus metabolism] Onset: 5 Chronic Other nutritional; endocrine; and metabolic disorders (20 sources) Body mass index 25-29 - overweight 04-14-2020 Episodic Other nutritional; endocrine; and metabolic disorders (1 source) Overweight; Translations: [Overweight] Episodic Other nutritional; endocrine; and metabolic disorders (1 source) Overweight in adulthood with body mass index of 25 or more but less than 30; Translations: [Body mass index (BMI) 26.0-26.9, adult] Episodic Other nutritional; endocrine; and metabolic disorders (1 source) Overweight; Translations: [Overweight] Onset: 5 Episodic Other nutritional; endocrine; and metabolic disorders (1 source) Body mass index (BMI) 26.0-26.9, adult; Translations: [Body mass index [BMI] 26.0-26.9, adult] Onset: 5 Episodic Other skin disorders (1 source) Mass of neck; Translations: [Localized swelling, mass and lump, neck] Episodic Other upper respiratory infections (1 source) Bacterial sinusitis; Translations: [Chronic sinusitis, unspecified] 07-06-2024 Chronic Other upper respiratory infections (3 sources) Acute upper respiratory infection; Translations: [Acute upper respiratory infection, unspecified] Episodic Pneumonia (except that caused by tuberculosis or sexually transmitted disease) (5 sources) Bacterial pneumonia; Translations: [Unspecified bacterial pneumonia] Onset: 5 11-29-2023 Episodic Residual codes; unclassified (20 sources) Family history of malignant neoplasm of gastrointestinal tract; Translations: [Family history of malignant neoplasm of digestive organs] 12-26-2020 Episodic Residual codes; unclassified (20 sources) Preoperative state 04-14-2020 Episodic Residual codes; unclassified (1 source) History of parathyroidectomy; Translations: [Other specified postprocedural states] 04-29-2018 Episodic Comment on above: 05/27/13 Substance-related disorders (20 sources) Smoker 09-05-2014 Chronic Comment on above: quit in 1975 Thyroid disorders (4 sources) Thyroid nodule; Translations: [Nontoxic single thyroid nodule] Onset: 3 04-30-2013 Chronic Unclassified (1 source) Nontoxic single thyroid nodule / E04.1(ICD-10) Onset: 3 Unclassified (20 sources) Active living will ; Translations: [Living will on file] Onset: 2 12-15-2021 Unclassified (1 source) Anesthesia Consult Onset: 3 Unclassified (20 sources) Mild aortic valve regurgitation 04-10-2023 Unclassified (20 sources) Mild mitral valve regurgitation 04-10-2023 Unclassified (20 sources) Moderate aortic valve stenosis 04-10-2023 Unclassified (10 sources) Severe aortic valve stenosis 10-23-2024 Unclassified (1 source) Cough, unspecified; Translations: [Cough, unspecified] Onset: 5 Unclassified (1 source) Cough productive of clear sputum; Translations: [Cough productive of clear sputum] Onset: 4 Past or Other Problems Problem Classification Problem Date Documented Date Episodic/Chronic Abdominal hernia (20 sources) Ventral incisional hernia; Translations: [Incisional hernia without obstruction or gangrene] Onset: 4 05-18-2024 Episodic Administrative/social admission (20 sources) Advance directive discussed with patient; Translations: [Other specified counseling] Onset: 2 Episodic Calculus of urinary tract (2 sources) Kidney stone; Translations: [Calculus of kidney] Onset: 4 05-18-2024 Episodic Coronary atherosclerosis and other heart disease (1 source) Presence of coronary angioplasty implant and graft; Translations: [H/O heart artery stent] Onset: 4 Episodic Esophageal disorders (20 sources) Esophagitis; Translations: [Esophagitis, unspecified] Onset: 9 Resolved: 4 10-15-2013 Episodic Nausea and vomiting (9 sources) Nausea; Translations: [Nausea] Onset: 4 04-10-2024 Episodic Nonspecific chest pain (6 sources) Chest pain; Translations: [Chest pain, unspecified] Onset: 4 Episodic Other aftercare (20 sources) Patient encounter status; Translations: [Other halfway (current) drug therapy] Onset: 2 Episodic Other aftercare (1 source) Other halfway (current) drug therapy; Translations: [Medication management] Onset: 2 Episodic Other and unspecified benign neoplasm (20 sources) Parathyroid adenoma; Translations: [Benign neoplasm of parathyroid gland] Onset: 4 Resolved: 0 12-24-2014 Episodic Other circulatory disease (1 source) Hypotension, unspecified; Translations: [Hypotension, unspecified] Onset: 5 Episodic Other circulatory disease (1 source) Other specified symptoms and signs involving the circulatory and respiratory systems; Translations: [Abnormal lung sounds] Onset: 5 Episodic Other diseases of kidney and ureters (1 source) Cyst of kidney, acquired; Translations: [Renal cyst] Onset: 4 Episodic Other endocrine disorders (20 sources) 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 deficiency; Translations: [Secondary hyperparathyroidism, not elsewhere classified] Onset: 4 Resolved: 7 03-04-2017 Chronic Other gastrointestinal disorders (1 source) Diarrhea, unspecified; Translations: [Diarrhea, unspecified type] Onset: 4 Episodic Other gastrointestinal disorders (1 source) Abdominal distension (gaseous); Translations: [Flatulence/gas pain/belching] Onset: 4 Episodic Other infections; including parasitic (20 sources) Personal history of other infectious and parasitic diseases; Translations: [History of COVID-19] Onset: 1 02-22-2022 Episodic Other liver diseases (20 sources) Alkaline phosphatase raised; Translations: [Abnormal levels of other serum enzymes] Onset: 4 09-24-2023 Episodic Other lower respiratory disease (1 source) Shortness of breath; Translations: [SOB (shortness of breath)] Onset: 5 Episodic Other lower respiratory disease (1 source) Wheezing; Translations: [Wheezing] Onset: 4 Episodic Other screening for suspected conditions (not mental disorders or infectious disease) (20 sources) Raised prostate specific antigen; Translations: [Elevated prostate specific antigen [PSA]] Onset: 9 12-26-2020 Episodic Peripheral and visceral atherosclerosis (2 sources) Non-occlusive mesenteric ischemia; Translations: [Acute (reversible) ischemia of intestine, part and extent unspecified] Onset: 5 09-19-2024 Episodic Residual codes; unclassified (11 sources) Active living will ; Translations: [Personal history of other specified conditions] Onset: 2 Episodic Screening and history of mental health and substance abuse codes (20 sources) Ex-smoker; Translations: [Personal history of nicotine dependence] Onset: 1 12-29-2020 Episodic Transient cerebral ischemia (20 sources) Transient cerebral ischemia; Translations: [Transient cerebral ischemic attack, unspecified] Resolved: 8 01-15-2018 Chronic Viral infection (10 sources) Disease caused by 2019-nCoV; Translations: [COVID-19] Onset: 1 05-29-2021 Episodic Results Test Name Value Interpretation Reference Range Facility NITRIC OXIDE, EXHALEDon 08-0 Darya Bledsoe Tech 03/16/2025 9:38 AM [facility] ORAL EXHALED NITRIC OXIDE SERVICE DATE: 03/16/2025 SERVICE TIME: 9:38 AM Oral Exhaled Nitric Oxide measurement: 32.0 (ppb) Normal: Adult <25 ppb, pediatric (<12 years) <20 ppb High Normal / Increased: Adult 25-50 ppb, pediatric (<12 years) 20-35 ppb Moderately raised exhaled Nitric Oxide may indicate underlying inflammation, but note that: Cold and influenza can raise exhaled Nitric Oxide and some patients have higher baseline exhaled Nitric Oxide levels than others. High: Adult >50 ppb, pediatric (<12 years) >35 ppb Indicative of ongoing eosinophilic inflammation. Symptomatic patient likely to respond to steroids. Possible causes (if already on steroids): Poor compliance, recent allergen exposure, steroid dose inadequate, and steroid resistance. Note that not all patients with high exhaled nitric oxide levels display symptoms. Oral Exhaled Nitric Oxide measurement (Previous Encounters) Test Date Oral Exhaled Nitric Oxide (ppb) 03/16/2025 32.0 NAME: Chucky Lee PATIENT NAME: Luis Manuel Duran JR DATE: March 16, 2025 TIME: 9:38 AM [facility] US KIDNEY/BLADDERon 03-11-20 25 US KIDNEY/BLADDER * * *Final Report* * * DATE OF EXAM: Mar 11 2025 10:00AM [id number] - US KIDNEY/BLADDER / PROCEDURE REASON: multiple diagnoses * * * * Physician Interpretation * * * * EXAMINATION: RENAL ULTRASOUND CLINICAL HISTORY: ESRD (end stage renal disease) on dialysis (HCC) ESRD (end stage renal disease) on dialysis (HCC) TECHNIQUE: Sonography of the kidneys and urinary bladder was performed. Images were obtained and stored in a permanent archive. MQ: [id number] COMPARISON: 04/30/2024 RESULT: Right Kidney: -Renal length: 9.0 cm -Parenchyma: Parenchyma echogenicity is increased. Normal parenchymal thickness. -Collecting system: No hydronephrosis. -Calculus: No echogenic, shadowing calculus. -Lesion: Benign cysts measuring up to 3 cm. Left Kidney: -Renal length: 9.8 cm -Parenchyma: Parenchyma echogenicity is increased. Normal parenchymal thickness. -Collecting system: No hydronephrosis. -Calculus: No echogenic, shadowing calculus. -Lesion: Multiple simple and complex renal cysts not substantially changed including the largest in the lower pole measuring 3.9 cm containing internal septations and debris. Bladder: Normal sonographic appearance. IMPRESSION: Unchanged complex left lower pole renal cyst. Medical renal disease. Counter Supply Worker: ELHAM Transcribe Date/Time: Mar 14 2025 12:17P Dictated by : OLEG RAM MD This examination was interpreted and the report reviewed and electronically signed by: OLEG RAM MD on Mar 14 2025 12:19PM EST [id number] Normal [facility] .GFRon 03-10-2025 Estimated Glomerular Filtration Rate 16 ml/min/1.73sqm Normal [facility] Comment on above: Result Comment: Stages of Chronic Kidney Disease (CKD) Stage Description eGFR(ml/min/1.73 sq.m.) CKD 1 Normal kidney function or >=90 normal kindney function with possible kidney damage (ex. Proteinuria) CKD 2 Kidney damage with mild loss 60-89 of kidney function CKD 3a Mild to moderate loss of kidney 45-59 function CKD 3b Moderate to severe loss of 30-44 of kindey function CKD 4 Severe loss of kidney function 15-29 CKD 5 Kidney failure <15 Note: (go live 2024) the eGFR calculation was updated to the 2020 CKD-EPI creatinine equation without a race factor to calculate the eGFR results. Performed By: #### B MP, TROPHS, ANEU, GFR, MDW, CBC, ADIFF #### [address] [address] CMPon 03-10-2025 Albumin Level 3.4 G/dL Normal 3.4-4.8 [facility] Comment on above: Performed By: #### B MP, TROPHS, ANEU, GFR, MDW, CBC, ADIFF #### [address] [address] Albumin/Globulin [Mass ratio] 0.9 {ratio} Low 1.1-2.5 [facility] Comment on above: Performed By: #### B MP, TROPHS, ANEU, GFR, MDW, CBC, ADIFF #### [address] [address] ALP [Catalytic activity/Vol] 103 U/L Normal 40-135 [facility] Comment on above: Performed By: #### B MP, TROPHS, ANEU, GFR, MDW, CBC, ADIFF #### [address] [address] ALT [Catalytic activity/Vol] 13 U/L Low 16-63 [facility] Comment on above: Performed By: #### B MP, TROPHS, ANEU, GFR, MDW, CBC, ADIFF #### [address] [address] AST [Catalytic activity/Vol] 24 U/L Normal 10-40 [facility] Comment on above: Performed By: #### B MP, TROPHS, ANEU, GFR, MDW, CBC, ADIFF #### [address] [address] Bili Total 0.8 mg/dL Normal 0.2-1.0 [facility] Comment on above: Result Comment: Use of this assay is not recommended for patients undergoing treatment with eltrombopag due to the potential for falsely elevated results. Performed By: #### B MP, TROPHS, ANEU, GFR, MDW, CBC, ADIFF #### [address] [address] BUN/Creatinine Ratio 5 ratio Low 7-27 [facility] Comment on above: Performed By: #### B MP, TROPHS, ANEU, GFR, MDW, CBC, ADIFF #### [address] [address] Calcium [Mass/Vol] 9.3 mg/dL Normal 8.4-10.2 [facility] Comment on above: Performed By: #### B MP, TROPHS, ANEU, GFR, MDW, CBC, ADIFF #### [address] [address] Chloride [Moles/Vol] 99 mmol/L Normal 98-107 [facility] Comment on above: Performed By: #### B MP, TROPHS, ANEU, GFR, MDW, CBC, ADIFF #### [place] [address] CO2 [Moles/Vol] 34 mmol/L High 23-31 [facility] Comment on above: Performed By: #### B MP, TROPHS, ANEU, GFR, MDW, CBC, ADIFF #### [place] [address] Creatinine [Mass/Vol] 3.61 mg/dL High 0.67-1.17 [facility] Comment on above: Performed By: #### B MP, TROPHS, ANEU, GFR, MDW, CBC, ADIFF #### [place] [address] Electrolyte Balance 5.0 mEq/L Normal 4.0-15.0 [facility] Comment on above: Performed By: #### B MP, TROPHS, ANEU, GFR, MDW, CBC, ADIFF #### [address] [address] Globulin 3.8 G/dL Normal 2.7-4.4 [facility] Comment on above: Performed By: #### B MP, TROPHS, ANEU, GFR, MDW, CBC, ADIFF #### [place] [id number] Glucose [Mass/Vol] 122 mg/dL High 83-110 [facility] Comment on above: Performed By: #### B MP, TROPHS, ANEU, GFR, MDW, CBC, ADIFF #### [address] [address] Potassium [Moles/Vol] 4.3 mmol/L Normal 3.5-5.1 [facility] Comment on above: Performed By: #### B MP, TROPHS, ANEU, GFR, MDW, CBC, ADIFF #### [place] [id number] [place], [place] [address] Sodium [Moles/Vol] 138 mmol/L Normal 136-145 [facility] Comment on above: Performed By: #### B MP, TROPHS, ANEU, GFR, MDW, CBC, ADIFF #### [place] [id number] [place], [place] [address] Total Protein 7.2 G/dL Normal 6.4-8.2 [facility] Comment on above: Performed By: #### B MP, TROPHS, ANEU, GFR, MDW, CBC, ADIFF #### [place] [id number] [place] [id number] Urea nitrogen [Mass/Vol] 19 mg/dL High 7-18 [facility] Comment on above: Performed By: #### B MP, TROPHS, ANEU, GFR, MDW, CBC, ADIFF #### [address] [address] LABORATORYOrdered By: SYSTEM SYSTEM on 03-10-2025 Albumin BCP dye [Mass/Vol] 3.4 G/dL Normal 3.4 - 4.8 G/dL AO ADM SS Albumin/Globulin [Mass ratio] 0.9 {ratio} Low 1.1 - 2.5 ratio AO ADM SS ALP [Catalytic activity/Vol] 103 U/L Normal 40 - 135 U/L AO ADM SS ALT With P-5'-P [Catalytic activity/Vol] 13 U/L Low 16 - 63 U/L AO ADM SS AST With P-5'-P [Catalytic activity/Vol] 24 U/L Normal 10 - 40 U/L AO ADM SS Bilirubin [Mass/Vol] 0.8 mg/dL Normal 0.2 - 1.0 mg/dL AO ADM SS Comment on above: Interpretive Data: U se of this assay is not recommended for patients undergoing treatment with eltrombopag due to the potential for falsely elevated results. Calcium [Mass/Vol] 9.3 mg/dL Normal 8.4 - 10. 2 mg/dL AO ADM SS Chloride [Moles/Vol] 99 mmol/L Normal 98 - 107 mmol/L AO ADM SS CO2 [Moles/Vol] 34 mmol/L High 23 - 31 mmol/L AO ADM SS Creatinine [Mass/Vol] 3.61 mg/dL High 0.67 - 1.17 mg/dL AO ADM SS Electrolyte Balance 5.0 mEq/L Normal 4.0 - 15 .0 mEq/L AO ADM SS Estimated Glomerular Filtration Rate 16 ml/min/1.73sqm Invalid Interpretation Code AO Chemistry S Comment on above: Interpretive Data: Stages of Chronic Kidney Disease (CKD) Stage Description eGFR(ml/min/1.73 sq.m.) CKD 1 Normal kidney function or >=90 normal kindney function with possible kidney damage (ex. Proteinuria) CKD 2 Kidney damage with mild loss 60-89 of kidney function CKD 3a Mild to moderate loss of kidney 45-59 function CKD 3b Moderate to severe loss of 30-44 of kindey function CKD 4 Severe loss of kidney function 15-29 CKD 5 Kidney failure <15 Note: (go live 2024) the eGFR calculation was updated to the 2020 CKD-EPI creatinine equation without a race factor to calculate the eGFR results. Globulin 3.8 G/dL Normal 2.7 - 4.4 G/dL AO ADM SS Glucose [Mass/Vol] 122 mg/dL High 83 - 110 mg/dL AO ADM SS Magnesium [Mass/Vol] 2.2 mg/dL Normal 1.8 - 2.4 mg/dL AO ADM SS Potassium [Moles/Vol] 4.3 mmol/L Normal 3.5 - 5.1 mmol/L AO ADM SS Protein [Mass/Vol] 7.2 G/dL Normal 6.4 - 8.2 G/dL AO ADM SS Sodium [Moles/Vol] 138 mmol/L Normal 136 - 145 mmol/L AO ADM SS Urea nitrogen [Mass/Vol] 19 mg/dL High 7 - 18 mg/dL AO ADM SS Urea nitrogen/Creatinine [Mass ratio] 5 ratio Low 7 - 27 ratio AO ADM SS MGon 03-10-2025 Magnesium [Mass/Vol] 2.2 mg/dL Normal 1.8-2.4 [facility] Comment on above: Performed By: #### B MP, TROPHS, ANEU, GFR, MDW, CBC, ADIFF #### [facility] [address] [place], [place] [address] .Auto Diffon 03-03-2025 Basophil, Absolute 0.0 10 3/mcL Normal 0.0-0.3 [facility] Comment on above: Performed By: #### G FR, CMP, A1C, MG, LIPID, TSH, TROPHS #### [address] [address] Basophils/100 WBC (Bld) 0.9 % Normal 0.0-2.5 [facility] Comment on above: Performed By: #### G FR, CMP, A1C, MG, LIPID, TSH, TROPHS #### [address] [address] Eosinophil, Absolute 0.4 10 3/mcL Normal 0.0-0.7 [facility] Comment on above: Performed By: #### G FR, CMP, A1C, MG, LIPID, TSH, TROPHS #### [address] [address] Eosinophils/100 WBC (Bld) 8.3 % High 0.0-6.0 [facility] Comment on above: Performed By: #### G FR, CMP, A1C, MG, LIPID, TSH, TROPHS #### [address] [address] Lymphocyte, Absolute 1.1 10 3/mcL Normal 0.9-4.3 [facility] Comment on above: Performed By: #### G FR, CMP, A1C, MG, LIPID, TSH, TROPHS #### [address] [address] Lymphocytes/100 WBC (Bld) 20.2 % Normal 20.0-40.0 [facility] Comment on above: Performed By: #### G FR, CMP, A1C, MG, LIPID, TSH, TROPHS #### [address] [address] Monocyte, Absolute 0.7 10 3/mcL Normal 0.1-1.4 [facility] Comment on above: Performed By: #### G FR, CMP, A1C, MG, LIPID, TSH, TROPHS #### [facility] [address] [place] [id number] Monocytes/100 WBC (Bld) 12.5 % Normal 2.0-13.0 [facility] Comment on above: Performed By: #### G FR, CMP, A1C, MG, LIPID, TSH, TROPHS #### [address] [address] Neutrophils/100 WBC (Bld) 58.1 % Normal 50.0-75.0 [facility] Comment on above: Performed By: #### G FR, CMP, A1C, MG, LIPID, TSH, TROPHS #### [address] [address] .GFRon 03-03-2025 Estimated Glomerular Filtration Rate 9 ml/min/1.73sqm Normal [facility] Comment on above: Result Comment: Stages of Chronic Kidney Disease (CKD) Stage Description eGFR(ml/min/1.73 sq.m.) CKD 1 Normal kidney function or >=90 normal kindney function with possible kidney damage (ex. Proteinuria) CKD 2 Kidney damage with mild loss 60-89 of kidney function CKD 3a Mild to moderate loss of kidney 45-59 function CKD 3b Moderate to severe loss of 30-44 of kindey function CKD 4 Severe loss of kidney function 15-29 CKD 5 Kidney failure <15 Note: (go live 2024) the eGFR calculation was updated to the 2020 CKD-EPI creatinine equation without a race factor to calculate the eGFR results. Performed By: #### G FR, CMP, A1C, MG, LIPID, TSH, TROPHS #### [address] [address] .NEUABSon 03-03-2025 Neutrophil, Absolute 3.1 10 3/mcL Normal 2.3-8.1 [facility] Comment on above: Performed By: #### G FR, CMP, A1C, MG, LIPID, TSH, TROPHS #### [address] [address] BMPon 03-03-2025 BUN/Creatinine Ratio 5.2 ratio Low 10.0-22.0 [facility] Comment on above: Performed By: #### G FR, CMP, A1C, MG, LIPID, TSH, TROPHS #### [address] [address] Calcium [Mass/Vol] 9.4 mg/dL Normal 8.7-10.4 [facility] Comment on above: Performed By: #### G FR, CMP, A1C, MG, LIPID, TSH, TROPHS #### [address] [address] Chloride [Moles/Vol] 99 mmol/L Normal 98-110 [facility] Comment on above: Performed By: #### G FR, CMP, A1C, MG, LIPID, TSH, TROPHS #### [address] [address] CO2 [Moles/Vol] 27 mmol/L Normal 22-32 [facility] Comment on above: Performed By: #### G FR, CMP, A1C, MG, LIPID, TSH, TROPHS #### [address] [address] Creatinine [Mass/Vol] 6.11 mg/dL High 0.60-1.40 [facility] Comment on above: Result Comment: Test ing performed on [employer] analyzer using enzymatic creatinine methodology. Performed By: #### G FR, CMP, A1C, MG, LIPID, TSH, TROPHS #### [address] [address] Electrolyte Balance 13.0 mEq/L Normal 4.0-15.0 [facility] Comment on above: Performed By: #### G FR, CMP, A1C, MG, LIPID, TSH, TROPHS #### [address] [address] Glucose [Mass/Vol] 92 mg/dL Normal 82-115 [facility] Comment on above: Performed By: #### G FR, CMP, A1C, MG, LIPID, TSH, TROPHS #### [place] [id number] Potassium [Moles/Vol] 4.3 mmol/L Normal 3.5-5.0 [facility] Comment on above: Performed By: #### G FR, CMP, A1C, MG, LIPID, TSH, TROPHS #### [place] [id number] Sodium [Moles/Vol] 139 mmol/L Normal 136-145 [facility] Comment on above: Performed By: #### G FR, CMP, A1C, MG, LIPID, TSH, TROPHS #### [place] [id number] Urea nitrogen [Mass/Vol] 32.0 mg/dL High 8.0-22.0 [facility] Comment on above: Performed By: #### G FR, CMP, A1C, MG, LIPID, TSH, TROPHS #### [place] [id number] CBCon 03-03-2025 Erythrocyte distribution width (RBC) [Ratio] 18.6 % High 11.5-15.5 [facility] Comment on above: Performed By: #### G FR, CMP, A1C, MG, LIPID, TSH, TROPHS #### [place] [address] Hematocrit (Bld) [Volume fraction] 33.4 % Low 40.0-52.0 [facility] Comment on above: Performed By: #### G FR, CMP, A1C, MG, LIPID, TSH, TROPHS #### [place] [address] Hgb 11.0 G/dL Low 13.0-17.5 [facility] Comment on above: Performed By: #### G FR, CMP, A1C, MG, LIPID, TSH, TROPHS #### [place] [address] MCH (RBC) [Entitic mass] 30.4 pg Normal 27.0-33.0 [facility] Comment on above: Performed By: #### G FR, CMP, A1C, MG, LIPID, TSH, TROPHS #### [place] [address] MCHC 32.9 G/dL Normal 32.0-36.0 [facility] Comment on above: Performed By: #### G FR, CMP, A1C, MG, LIPID, TSH, TROPHS #### [place] [address] MCV (RBC) [Entitic vol] 92.1 fL Normal 81.0-100.0 [facility] Comment on above: Performed By: #### G FR, CMP, A1C, MG, LIPID, TSH, TROPHS #### [place] [address] Platelet 128 10 3/mcL Low 150-450 [facility] Comment on above: Performed By: #### G FR, CMP, A1C, MG, LIPID, TSH, TROPHS #### [place] [address] Platelet mean volume (Bld) [Entitic vol] 8.8 fL Normal 6.4-10.5 [facility] Comment on above: Performed By: #### G FR, CMP, A1C, MG, LIPID, TSH, TROPHS #### [place] [address] RBC 3.62 10 6/mcL Low 4.50-6.00 [facility] Comment on above: Performed By: #### G FR, CMP, A1C, MG, LIPID, TSH, TROPHS #### [place] [address] WBC 5.3 10 3/mcL Normal 4.5-10.8 [facility] Comment on above: Performed By: #### G FR, CMP, A1C, MG, LIPID, TSH, TROPHS #### [place] [address] LABORATORYOrdered By: Oumou barboza on 03-03-2025 Blood Glucose Testing Reason Routine (03/03/25 11:03 AM) [facility] Work Phone: Glucose [Mass/Vol] 107 mg/dL Normal 82 - 115 mg/dL [facility] Work Phone: LABORATORYOrdered By: SYSTEM SYSTEM on 03-03-2025 Basophils (Bld) [#/Vol] 0.0 103/mcL Normal 0.0 - 0.3 10^3/mcL AH Workflow SS Basophils/100 WBC (Bld) 0.9 % Normal 0.0 - 2.5 % AH Workflow SS Calcium [Mass/Vol] 9.4 mg/dL Normal 8.7 - 10. 4 mg/dL ADM SS Chloride [Moles/Vol] 99 mmol/L Normal 98 - 110 mEq/L ADM SS CO2 [Moles/Vol] 27 mmol/L Normal 22 - 32 mEq/L ADM SS Creatinine [Mass/Vol] 6.11 mg/dL High 0.60 - 1.40 mg/dL ADM SS Comment on above: Interpretive Data: T esting performed on [employer] analyzer using enzymatic creatinine methodology. Electrolyte Balance 13.0 mEq/L Normal 4.0 - 15 .0 mEq/L ADM SS Eosinophils (Bld) [#/Vol] 0.4 103/mcL Normal 0.0 - 0.7 10^3/mcL Workflow SS Eosinophils/100 WBC (Bld) 8.3 % High 0.0 - 6.0 % Workflow SS Erythrocyte distribution width (RBC) [Ratio] 18.6 % High 11.5 - 15.5 % Workflow SS Estimated Glomerular Filtration Rate 9 ml/min/1.73sqm Invalid Interpretation Code ADM SS Comment on above: Interpretive Data: Stages of Chronic Kidney Disease (CKD) Stage Description eGFR(ml/min/1.73 sq.m.) CKD 1 Normal kidney function or >=90 normal kindney function with possible kidney damage (ex. Proteinuria) CKD 2 Kidney damage with mild loss 60-89 of kidney function CKD 3a Mild to moderate loss of kidney 45-59 function CKD 3b Moderate to severe loss of 30-44 of kindey function CKD 4 Severe loss of kidney function 15-29 CKD 5 Kidney failure <15 Note: (go live 2024) the eGFR calculation was updated to the 2020 CKD-EPI creatinine equation without a race factor to calculate the eGFR results. Glucose [Mass/Vol] 92 mg/dL Normal 82 - 115 mg/dL ADM SS Hematocrit (Bld) [Volume fraction] 33.4 % Low 40.0 - 52.0 % Workflow SS Hemoglobin (Bld) [Mass/Vol] 11.0 G/dL Low 13.0 - 17.5 G/dL Workflow SS Lymphocytes (Bld) [#/Vol] 1.1 103/mcL Normal 0.9 - 4.3 10^3/mcL AH Workflow SS Lymphocytes/100 WBC (Bld) 20.2 % Normal 20.0 - 40.0 % AH Workflow SS Magnesium [Mass/Vol] 2.1 mg/dL Normal 1.6 - 2.4 mg/dL AH ADM SS MCH (RBC) [Entitic mass] 30.4 pg Normal 27.0 - 33.0 pg AH Workflow SS MCHC 32.9 G/dL Normal 32.0 - 36.0 G/dL AH Workflow SS MCV (RBC) [Entitic vol] 92.1 fL Normal 81.0 - 100.0 fL AH Workflow SS Monocytes (Bld) [#/Vol] 0.7 103/mcL Normal 0.1 - 1.4 10^3/mcL AH Workflow SS Monocytes/100 WBC (Bld) 12.5 % Normal 2.0 - 13.0 % AH Workflow SS Neutrophils (Bld) [#/Vol] 3.1 103/mcL Normal 2.3 - 8.1 10^3/mcL AH Workflow SS Neutrophils/100 WBC (Bld) 58.1 % Normal 50.0 - 75.0 % AH Workflow SS Platelet mean volume (Bld) [Entitic vol] 8.8 fL Normal 6.4 - 10.5 fL AH Workflow SS Platelets (Bld) [#/Vol] 128 103/mcL Low 150 - 450 10^3/mcL AH Workflow SS Potassium [Moles/Vol] 4.3 mmol/L Normal 3.5 - 5.0 mEq/L AH ADM SS RBC (Bld) [#/Vol] 3.62 106/mcL Low 4.50 - 6.0 0 10^6/mcL AH Workflow SS Sodium [Moles/Vol] 139 mmol/L Normal 136 - 145 mEq/L ADM SS Urea nitrogen [Mass/Vol] 32.0 mg/dL High 8.0 - 22.0 mg/dL AH ADM SS Urea nitrogen/Creatinine [Mass ratio] 5.2 ratio Low 10.0 - 22.0 ratio ADM SS WBC (Bld) [#/Vol] 5.3 103/mcL Normal 4.5 - 10.8 10^3/mcL AH Workflow SS MGon 03-03-2025 Magnesium [Mass/Vol] 2.1 mg/dL Normal 1.6-2.4 [facility] Comment on above: Performed By: #### G FR, CMP, A1C, MG, LIPID, TSH, TROPHS #### [address] [address] .Auto Diffon 03-02-2025 Basophil, Absolute 0.0 10 3/mcL Normal 0.0-0.3 [facility] Comment on above: Performed By: #### A PTT, LIPID, BMP, GFR, ADIFF, ANEU, CBC, A1C, MG, PHOS ####[address] [address] Basophils/100 WBC (Bld) 0.6 % Normal 0.0-2.5 [facility] Comment on above: Performed By: #### A PTT, LIPID, BMP, GFR, ADIFF, ANEU, CBC, A1C, MG, PHOS ####[address] [address] Eosinophil, Absolute 0.4 10 3/mcL Normal 0.0-0.7 [facility] Comment on above: Performed By: #### A PTT, LIPID, BMP, GFR, ADIFF, ANEU, CBC, A1C, MG, PHOS ####[address] [address] Eosinophils/100 WBC (Bld) 8.5 % High 0.0-6.0 [facility] Comment on above: Performed By: #### A PTT, LIPID, BMP, GFR, ADIFF, ANEU, CBC, A1C, MG, PHOS ####[address] [address] Lymphocyte, Absolute 1.0 10 3/mcL Normal 0.9-4.3 [facility] Comment on above: Performed By: #### A PTT, LIPID, BMP, GFR, ADIFF, ANEU, CBC, A1C, MG, PHOS ####[address] [address] Lymphocytes/100 WBC (Bld) 19.7 % Low 20.0-40.0 [facility] Comment on above: Performed By: #### A PTT, LIPID, BMP, GFR, ADIFF, ANEU, CBC, A1C, MG, PHOS ####[address] [address] Monocyte, Absolute 0.6 10 3/mcL Normal 0.1-1.4 [facility] Comment on above: Performed By: #### A PTT, LIPID, BMP, GFR, ADIFF, ANEU, CBC, A1C, MG, PHOS ####[address] [address] Monocytes/100 WBC (Bld) 11.7 % Normal 2.0-13.0 [facility] Comment on above: Performed By: #### A PTT, LIPID, BMP, GFR, ADIFF, ANEU, CBC, A1C, MG, PHOS ####[address] [address] Neutrophils/100 WBC (Bld) 59.5 % Normal 50.0-75.0 [facility] Comment on above: Performed By: #### A PTT, LIPID, BMP, GFR, ADIFF, ANEU, CBC, A1C, MG, PHOS ####[place] [address] .GFRon 03-02-2025 Estimated Glomerular Filtration Rate 8 ml/min/1.73sqm Normal [facility] Comment on above: Result Comment: Stages of Chronic Kidney Disease (CKD) Stage Description eGFR(ml/min/1.73 sq.m.) CKD 1 Normal kidney function or >=90 normal kindney function with possible kidney damage (ex. Proteinuria) CKD 2 Kidney damage with mild loss 60-89 of kidney function CKD 3a Mild to moderate loss of kidney 45-59 function CKD 3b Moderate to severe loss of 30-44 of kindey function CKD 4 Severe loss of kidney function 15-29 CKD 5 Kidney failure <15 Note: (go live 2024) the eGFR calculation was updated to the 2020 CKD-EPI creatinine equation without a race factor to calculate the eGFR results. Performed By: #### A PTT, LIPID, BMP, GFR, ADIFF, ANEU, CBC, A1C, MG, PHOS ####[address] [address] .NEUABSon 03-02-2025 Neutrophil, Absolute 2.9 10 3/mcL Normal 2.3-8.1 [facility] Comment on above: Performed By: #### A PTT, LIPID, BMP, GFR, ADIFF, ANEU, CBC, A1C, MG, PHOS ####[place] [id number] A1Con 03-02-2025 Glucose [Mass/Vol] 103 mg/dL Normal [facility] Comment on above: Result Comment: Elena mated Average Glucose calculated by equation ((28.7xA1C)-46.7) Estimated average glucose (eAG) is a calculated value from Hemoglobin A1C and is ict sales representative of the average blood glucose level in the last 2-3 month period. Normal range: less than 114 mg/dL Performed By: #### A PTT, LIPID, BMP, GFR, ADIFF, ANEU, CBC, A1C, MG, PHOS ####[place] [address] HbA1c (Bld) [Mass fraction] 5.2 % Normal 4.0-6.0 [facility] Comment on above: Performed By: #### A PTT, LIPID, BMP, GFR, ADIFF, ANEU, CBC, A1C, MG, PHOS ####[place] [address] APTTon 03-02-2025 aPTT Coag (Bld) [Time] 50.8 s High 25.0-35.0 [facility] Comment on above: Result Comment: For Heparin anticoagulation therapy, the recommended therapeutic range is: 54-77 seconds (APTT Correlation with Anti-Xa therapeutic range of 0.3-0.7 units/ml). PLEASE REFERENCE THE PHARMACY PROTOCOL FOR DOSING. Performed By: #### A PTT ####[place] [address] aPTT Coag (Bld) [Time] 63.7 s High 25.0-35.0 [facility] Comment on above: Result Comment: For Heparin anticoagulation therapy, the recommended therapeutic range is: 54-77 seconds (APTT Correlation with Anti-Xa therapeutic range of 0.3-0.7 units/ml). PLEASE REFERENCE THE PHARMACY PROTOCOL FOR DOSING. Performed By: #### A PTT, LIPID, BMP, GFR, ADIFF, ANEU, CBC, A1C, MG, PHOS ####[address] [address] BMPon 03-02-2025 BUN/Creatinine Ratio 6.0 ratio Low 10.0-22.0 [facility] Comment on above: Performed By: #### A PTT, LIPID, BMP, GFR, ADIFF, ANEU, CBC, A1C, MG, PHOS ####[address] [address] Calcium [Mass/Vol] 9.4 mg/dL Normal 8.7-10.4 [facility] Comment on above: Performed By: #### A PTT, LIPID, BMP, GFR, ADIFF, ANEU, CBC, A1C, MG, PHOS ####[address] [address] Chloride [Moles/Vol] 98 mmol/L Normal 98-110 [facility] Comment on above: Performed By: #### A PTT, LIPID, BMP, GFR, ADIFF, ANEU, CBC, A1C, MG, PHOS ####[address] [address] CO2 [Moles/Vol] 29 mmol/L Normal 22-32 [facility] Comment on above: Performed By: #### A PTT, LIPID, BMP, GFR, ADIFF, ANEU, CBC, A1C, MG, PHOS ####[place] [address] Creatinine [Mass/Vol] 6.48 mg/dL High 0.60-1.40 [facility] Comment on above: Result Comment: Test ing performed on [employer] analyzer using enzymatic creatinine methodology. Performed By: #### A PTT, LIPID, BMP, GFR, ADIFF, ANEU, CBC, A1C, MG, PHOS ####[address] [address] Electrolyte Balance 14.0 mEq/L Normal 4.0-15.0 [facility] Comment on above: Performed By: #### A PTT, LIPID, BMP, GFR, ADIFF, ANEU, CBC, A1C, MG, PHOS ####[address] [address] Glucose [Mass/Vol] 89 mg/dL Normal 82-115 [facility] Comment on above: Performed By: #### A PTT, LIPID, BMP, GFR, ADIFF, ANEU, CBC, A1C, MG, PHOS ####[address] [address] Potassium [Moles/Vol] 4.7 mmol/L Normal 3.5-5.0 [facility] Comment on above: Performed By: #### A PTT, LIPID, BMP, GFR, ADIFF, ANEU, CBC, A1C, MG, PHOS ####[place] [id number] Sodium [Moles/Vol] 141 mmol/L Normal 136-145 [facility] Comment on above: Performed By: #### A PTT, LIPID, BMP, GFR, ADIFF, ANEU, CBC, A1C, MG, PHOS ####[address] [address] Urea nitrogen [Mass/Vol] 39.0 mg/dL High 8.0-22.0 [facility] Comment on above: Performed By: #### A PTT, LIPID, BMP, GFR, ADIFF, ANEU, CBC, A1C, MG, PHOS ####[address] [address] CBCon 03-02-2025 Erythrocyte distribution width (RBC) [Ratio] 18.3 % High 11.5-15.5 [facility] Comment on above: Performed By: #### A PTT, LIPID, BMP, GFR, ADIFF, ANEU, CBC, A1C, MG, PHOS ####[place] [id number] Hematocrit (Bld) [Volume fraction] 32.9 % Low 40.0-52.0 [facility] Comment on above: Performed By: #### A PTT, LIPID, BMP, GFR, ADIFF, ANEU, CBC, A1C, MG, PHOS ####[place] [id number] Hgb 10.7 G/dL Low 13.0-17.5 [facility] Comment on above: Performed By: #### A PTT, LIPID, BMP, GFR, ADIFF, ANEU, CBC, A1C, MG, PHOS ####[place] [address] MCH (RBC) [Entitic mass] 30.0 pg Normal 27.0-33.0 [facility] Comment on above: Performed By: #### A PTT, LIPID, BMP, GFR, ADIFF, ANEU, CBC, A1C, MG, PHOS ####[place] [address] MCHC 32.6 G/dL Normal 32.0-36.0 [facility] Comment on above: Performed By: #### A PTT, LIPID, BMP, GFR, ADIFF, ANEU, CBC, A1C, MG, PHOS ####[place] [address] MCV (RBC) [Entitic vol] 92.0 fL Normal 81.0-100.0 [facility] Comment on above: Performed By: #### A PTT, LIPID, BMP, GFR, ADIFF, ANEU, CBC, A1C, MG, PHOS ####[place] [address] Platelet 120 10 3/mcL Low 150-450 [facility] Comment on above: Performed By: #### A PTT, LIPID, BMP, GFR, ADIFF, ANEU, CBC, A1C, MG, PHOS ####[place] [address] Platelet mean volume (Bld) [Entitic vol] 8.9 fL Normal 6.4-10.5 [facility] Comment on above: Performed By: #### A PTT, LIPID, BMP, GFR, ADIFF, ANEU, CBC, A1C, MG, PHOS ####[place] [address] RBC 3.58 10 6/mcL Low 4.50-6.00 [facility] Comment on above: Performed By: #### A PTT, LIPID, BMP, GFR, ADIFF, ANEU, CBC, A1C, MG, PHOS ####[place] [address] WBC 4.9 10 3/mcL Normal 4.5-10.8 [facility] Comment on above: Performed By: #### A PTT, LIPID, BMP, GFR, ADIFF, ANEU, CBC, A1C, MG, PHOS ####[place] [id number] [address] [place] [address] LABORATORYOrdered By: SYSTEM SYSTEM on 03-02-2025 aPTT Coag (Bld) [Time] 50.8 s High 25.0 - 35.0 seconds [facility] SS Comment on above: Interpretive Data: F or Heparin anticoagulation therapy, the recommended therapeutic range is: 54-77 seconds (APTT Correlation with Anti-Xa therapeutic range of 0.3-0.7 units/ml). PLEASE REFERENCE THE PHARMACY PROTOCOL FOR DOSING. aPTT Coag (Bld) [Time] 63.7 s High 25.0 - 35.0 seconds [facility] SS Comment on above: Interpretive Data: F or Heparin anticoagulation therapy, the recommended therapeutic range is: 54-77 seconds (APTT Correlation with Anti-Xa therapeutic range of 0.3-0.7 units/ml). PLEASE REFERENCE THE PHARMACY PROTOCOL FOR DOSING. Basophils (Bld) [#/Vol] 0.0 103/mcL Normal 0.0 - 0.3 10^3/mcL AH Workflow SS Basophils/100 WBC (Bld) 0.6 % Normal 0.0 - 2.5 % AH Workflow SS Calcium [Mass/Vol] 9.4 mg/dL Normal 8.7 - 10. 4 mg/dL AH ADM SS Chloride [Moles/Vol] 98 mmol/L Normal 98 - 110 mEq/L AH ADM SS CO2 [Moles/Vol] 29 mmol/L Normal 22 - 32 mEq/L AH ADM SS Creatinine [Mass/Vol] 6.48 mg/dL High 0.60 - 1.40 mg/dL AH ADM SS Comment on above: Interpretive Data: T esting performed on [employer] analyzer using enzymatic creatinine methodology. Electrolyte Balance 14.0 mEq/L Normal 4.0 - 15 .0 mEq/L AH ADM SS Eosinophils (Bld) [#/Vol] 0.4 103/mcL Normal 0.0 - 0.7 10^3/mcL AH Workflow SS Eosinophils/100 WBC (Bld) 8.5 % High 0.0 - 6.0 % AH Workflow SS Erythrocyte distribution width (RBC) [Ratio] 18.3 % High 11.5 - 15.5 % AH Workflow SS Estimated Glomerular Filtration Rate 8 ml/min/1.73sqm Invalid Interpretation Code ADM SS Comment on above: Interpretive Data: Stages of Chronic Kidney Disease (CKD) Stage Description eGFR(ml/min/1.73 sq.m.) CKD 1 Normal kidney function or >=90 normal kindney function with possible kidney damage (ex. Proteinuria) CKD 2 Kidney damage with mild loss 60-89 of kidney function CKD 3a Mild to moderate loss of kidney 45-59 function CKD 3b Moderate to severe loss of 30-44 of kindey function CKD 4 Severe loss of kidney function 15-29 CKD 5 Kidney failure <15 Note: (go live 2024) the eGFR calculation was updated to the 2020 CKD-EPI creatinine equation without a race factor to calculate the eGFR results. Glucose [Mass/Vol] 103 mg/dL Invalid Interpretation Code AH Auto [employer] SS Comment on above: Interpretive Data: E stimated average glucose (eAG) is a calculated value from Hemoglobin A1C and is ict sales representative of the average blood glucose level in the last 2-3 month period. Normal range: less than 114 mg/dL Glucose [Mass/Vol] 89 mg/dL Normal 82 - 115 mg/dL ADM SS HbA1c (Bld) [Mass fraction] 5.2 % Normal 4.0 - 6.0 % Auto Chem SS Hematocrit (Bld) [Volume fraction] 32.9 % Low 40.0 - 52.0 % Workflow SS Hemoglobin (Bld) [Mass/Vol] 10.7 G/dL Low 13.0 - 17.5 G/dL AH Workflow SS Lymphocytes (Bld) [#/Vol] 1.0 103/mcL Normal 0.9 - 4.3 10^3/mcL Workflow SS Lymphocytes/100 WBC (Bld) 19.7 % Low 20.0 - 40.0 % Workflow SS Magnesium [Mass/Vol] 2.2 mg/dL Normal 1.6 - 2.4 mg/dL ADM SS MCH (RBC) [Entitic mass] 30.0 pg Normal 27.0 - 33.0 pg AH Workflow SS MCHC 32.6 G/dL Normal 32.0 - 36.0 G/dL Workflow SS MCV (RBC) [Entitic vol] 92.0 fL Normal 81.0 - 100.0 fL Workflow SS Monocytes (Bld) [#/Vol] 0.6 103/mcL Normal 0.1 - 1.4 10^3/mcL AH Workflow SS Monocytes/100 WBC (Bld) 11.7 % Normal 2.0 - 13.0 % AH Workflow SS Neutrophils (Bld) [#/Vol] 2.9 103/mcL Normal 2.3 - 8.1 10^3/mcL AH Workflow SS Neutrophils/100 WBC (Bld) 59.5 % Normal 50.0 - 75.0 % AH Workflow SS Phosphate [Mass/Vol] 5.2 mg/dL High 2.4 - 5.1 mg/dL AH ADM SS Platelet mean volume (Bld) [Entitic vol] 8.9 fL Normal 6.4 - 10.5 fL AH Workflow SS Platelets (Bld) [#/Vol] 120 103/mcL Low 150 - 450 10^3/mcL AH Workflow SS Potassium [Moles/Vol] 4.7 mmol/L Normal 3.5 - 5.0 mEq/L AH ADM SS RBC (Bld) [#/Vol] 3.58 106/mcL Low 4.50 - 6.0 0 10^6/mcL AH Workflow SS Sodium [Moles/Vol] 141 mmol/L Normal 136 - 145 mEq/L AH ADM SS Urea nitrogen [Mass/Vol] 39.0 mg/dL High 8.0 - 22.0 mg/dL AH ADM SS Urea nitrogen/Creatinine [Mass ratio] 6.0 ratio Low 10.0 - 22.0 ratio AH ADM SS WBC (Bld) [#/Vol] 4.9 103/mcL Normal 4.5 - 10.8 10^3/mcL AH Workflow SS LABORATORYOrdered By: Antonia on 03-02-2025 Appearance (U) Clear (03/02/25 4:57 AM) Normal Clear AH Auto Urine SS Bilirubin Ql (U) Negative (03/02/25 4:57 AM) Normal Neg-Trace AH Auto Urine SS Color (U) Yellow (03/02/25 4:57 AM) Normal AH Auto Urine SS Glucose Test strip (U) [Mass/Vol] 100 mg/dL Invalid Interpretation Code Negative AH Auto Urine SS Hemoglobin Auto test strip (U) [Mass/Vol] Negative (03/02/25 4:57 AM) Normal Neg-Trace AH Auto Urine SS Ketones Ql (U) Negative Normal Neg-Trace AH Auto Urine SS UA Leuk Est Trace *NA* (03/02/25 4:57 AM) Invalid Interpretation Code Negative AH Auto Urine SS UA Nitrite Negative (03/02/25 4:57 AM) Normal Negative AH Auto Urine SS UA pH 8.0 (03/02/25 4:57 AM) Normal 5.0 - 8.0 AH Auto Urine SS UA Protein 300 mg/dL Invalid Interpretation Code Negative AH Auto Urine SS UA Spec Grav 1.015 (03/02/25 4:57 AM) Normal 1.006-1.029 AH Auto Urine SS UA Specimen Type Clean Catch (03/02/25 4:57 AM) Normal AH Auto Urine SS UA Urobilinogen 0.2 E.U./dL Normal 0.2-1.0 AH Auto Urine SS LABORATORYOrdered By: Mansi Gilliland on 03-02-2025 Bacteria LM.HPF (Urine sed) [#/Area] Trace /HPF Invalid Interpretation Code Negative AH Auto Urine SS Crystals.amorphous LM.HPF (Urine sed) [#/Area] Trace /HPF Normal AH Auto Urine SS UA Mucous Trace /HPF Normal AH Auto Urine SS UA RBC Negative Normal 0-2 AH Auto Urine SS UA Squam Epithelial Rare /HPF Normal 0-20 AH Au to Urine SS WBC LM.HPF (Urine sed) [#/Area] 0-2 /HPF Normal 0-5 AH Auto Urine SS LABORATORYOrdered By: Nora Bruce on 03-02-2025 Cholesterol [Mass/Vol] 155 mg/dL Normal 50 - 199 mg/dL ADM SS Comment on above: Interpretive Data: C holesterol Reference Interval: Less than 200 Desirable 200-239 Borderline high risk 240 and above High risk Cholesterol in HDL [Mass/Vol] 64 mg/dL High 40 - 59 mg/dL ADM SS Cholesterol in LDL [Mass/Vol] 81 mg/dL Normal 0 - 129 mg/dL ADM SS Triglyceride [Mass/Vol] 51 mg/dL Normal 3 - 149 mg/dL AH ADM SS LIPIDon 03-02-2025 Cholesterol [Mass/Vol] 155 mg/dL Normal 50-199 [facility] Comment on above: Result Comment: Chol esterol Reference Interval: Less than 200 Desirable 200-239 Borderline high risk 240 and above High risk Performed By: #### A PTT, LIPID, BMP, GFR, ADIFF, ANEU, CBC, A1C, MG, PHOS ####[address] [address] Cholesterol in HDL [Mass/Vol] 64 mg/dL High 40-59 [facility] Comment on above: Performed By: #### A PTT, LIPID, BMP, GFR, ADIFF, ANEU, CBC, A1C, MG, PHOS ####[address] [address] Cholesterol in LDL [Mass/Vol] 81 mg/dL Normal 0-129 [facility] Comment on above: Performed By: #### A PTT, LIPID, BMP, GFR, ADIFF, ANEU, CBC, A1C, MG, PHOS ####[address] [address] Triglyceride [Mass/Vol] 51 mg/dL Normal 3-149 [facility] Comment on above: Performed By: #### A PTT, LIPID, BMP, GFR, ADIFF, ANEU, CBC, A1C, MG, PHOS ####[address] [address] MGon 03-02-2025 Magnesium [Mass/Vol] 2.2 mg/dL Normal 1.6-2.4 [facility] Comment on above: Performed By: #### A PTT, LIPID, BMP, GFR, ADIFF, ANEU, CBC, A1C, MG, PHOS ####[address] [address] NM MYOCARDIAL SPECT STRESS/R ESTon 03-02-2025 NM MYOCARDIAL SPECT STRESS/REST ORIGINAL EXAMINATION: CARDIAC SPECT03/02/2025 10:35 am TECHNIQUE: The patient received an intravenous injection of 8.7 mCi of Tc-99m Sestamibi and resting emission tomographic (SPECT) images of the myocardium were acquired. The patient then received an intravenous infusion of 0.4 mg regadenoson (Lexiscan) followed by an additional injection of 26 mCi of Tc-99m Sestamibi. Stress phase SPECT images of the myocardium were then acquired. These included ECG-gated images to assess and quantify ventricular function. Low dose CT was acquired for attenuation correction. COMPARISON: None HISTORY: ORDERING SYSTEM PROVIDED HISTORY: Reason for Exam: Chest pain FINDINGS: The LV chamber is dilated with areas of myocardial thinning, including the apex. There is inferior wall attenuation artifact. No fixed defects to suggest infarct. No reversible defects to suggest ischemia. The LV chamber is dilated, with an EDV of 223 mL. Normal TID value. Gated post-stress images reveals globally diminished contractility. The estimated LVEF is 36%. 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 IMPRESSION: 1. No evidence of infarct or ischemia. Apical thinning. 2. Dilated cardiomyopathy, with LVEF of 36%. Interpreted by: Hay Farrell DO Preliminary Report By: Hay Farrell DO Electronically signed By Hay Farrell DO Dictated Date: 03/02/2025 10:41:55 AM Prelim Date: 03/02/2025 10:46:20 AM Sign Date: 03/02/2025 10:46:20 AM Ordering Provider: MICHAEL STEIN Normal [facility] PHOSon 03-02-2025 Phosphate [Mass/Vol] 5.2 mg/dL High 2.4-5.1 [facility] Comment on above: Performed By: #### A PTT, LIPID, BMP, GFR, ADIFF, ANEU, CBC, A1C, MG, PHOS ####[facility] [place] [id number] UAon 03-02-2025 Color (U) Yellow Normal [facility] Comment on above: Performed By: #### G FR, CMP, A1C, MG, LIPID, TSH, TROPHS #### [facility] [address] [place] [id number] Glucose (U) [Mass/Vol] 100 mg/dL Abnormal Negative [facility] MAIN Comment on above: Performed By: #### G FR, CMP, A1C, MG, LIPID, TSH, TROPHS #### [facility] [address] [place] [address] Ketones Ql (U) Negative Normal Neg-Trace [facility] MAIN Comment on above: Performed By: #### G FR, CMP, A1C, MG, LIPID, TSH, TROPHS #### [facility] [address] [place] [address] UA Appear Clear Normal Clear [facility] MAIN Comment on above: Performed By: #### G FR, CMP, A1C, MG, LIPID, TSH, TROPHS #### [address] [address] UA Blood Negative Normal Neg-Trace [facility] MAIN Comment on above: Performed By: #### G FR, CMP, A1C, MG, LIPID, TSH, TROPHS #### [address] [address] UA Leuk Est Trace Normal Negative [facility] MAIN Comment on above: Performed By: #### G FR, CMP, A1C, MG, LIPID, TSH, TROPHS #### [address] [address] UA Nitrite Negative Normal Negative [facility] MAIN Comment on above: Performed By: #### G FR, CMP, A1C, MG, LIPID, TSH, TROPHS #### [place] [address] UA pH 8.0 Normal 5.0 - 8.0 [facility] MAIN Comment on above: Performed By: #### G FR, CMP, A1C, MG, LIPID, TSH, TROPHS #### [address] [address] UA Protein 300 mg/dL Abnormal Negative [facility] MAIN Comment on above: Performed By: #### G FR, CMP, A1C, MG, LIPID, TSH, TROPHS #### [place] [address] UA Spec Grav 1.015 Normal 1.006-1.029 [facility] MAIN Comment on above: Performed By: #### G FR, CMP, A1C, MG, LIPID, TSH, TROPHS #### [place] [address] UA Specimen Type Clean Catch Normal [facility] MAIN Comment on above: Performed By: #### G FR, CMP, A1C, MG, LIPID, TSH, TROPHS #### [place] [address] UA Urobilinogen 0.2 E.U./dL Normal 0.2-1.0 [facility] MAIN Comment on above: Performed By: #### G FR, CMP, A1C, MG, LIPID, TSH, TROPHS #### [place] [address] Urobilinogen (U) [Mass/Vol] Negative Normal Neg-Trace [facility] MAIN Comment on above: Performed By: #### G FR, CMP, A1C, MG, LIPID, TSH, TROPHS #### [place] [address] UAMICon 03-02-2025 UA Amorphus Trace Normal [facility] MAIN Comment on above: Performed By: #### G FR, CMP, A1C, MG, LIPID, TSH, TROPHS #### [place] [address] UA Bacteria Trace Abnormal Negative [facility] MAIN Comment on above: Performed By: #### G FR, CMP, A1C, MG, LIPID, TSH, TROPHS #### [place] [address] UA Mucous Trace Normal [facility] MAIN Comment on above: Performed By: #### G FR, CMP, A1C, MG, LIPID, TSH, TROPHS #### [place] [address] UA RBC Negative Normal 0-2 [facility] MAIN Comment on above: Performed By: #### G FR, CMP, A1C, MG, LIPID, TSH, TROPHS #### [place] [address] UA Squam Epithelial Rare Normal 0-20 [facility] MAIN Comment on above: Performed By: #### G FR, CMP, A1C, MG, LIPID, TSH, TROPHS #### [place] [address] UA WBC 0-2 Normal 0-5 [facility] MAIN Comment on above: Performed By: #### G FR, CMP, A1C, MG, LIPID, TSH, TROPHS #### [place] [address] .Auto Diffon 03-01-2025 Basophil, Absolute 0.0 10 3/mcL Normal 0.0-0.3 [facility] MAIN Comment on above: Performed By: #### G FR, CMP, A1C, MG, LIPID, TSH, TROPHS #### [place] [address] Basophils/100 WBC (Bld) 0.7 % Normal 0.0-2.5 [facility] MAIN Comment on above: Performed By: #### G FR, CMP, A1C, MG, LIPID, TSH, TROPHS #### [address] [address] Eosinophil, Absolute 0.2 10 3/mcL Normal 0.0-0.7 [facility] MAIN Comment on above: Performed By: #### G FR, CMP, A1C, MG, LIPID, TSH, TROPHS #### [address] [address] Eosinophils/100 WBC (Bld) 3.1 % Normal 0.0-6.0 [facility] MAIN Comment on above: Performed By: #### G FR, CMP, A1C, MG, LIPID, TSH, TROPHS #### [address] [address] Lymphocyte, Absolute 1.0 10 3/mcL Normal 0.9-4.3 [facility] MAIN Comment on above: Performed By: #### G FR, CMP, A1C, MG, LIPID, TSH, TROPHS #### [address] [address] Lymphocytes/100 WBC (Bld) 16.9 % Low 20.0-40.0 [facility] MAIN Comment on above: Performed By: #### G FR, CMP, A1C, MG, LIPID, TSH, TROPHS #### [address] [address] Monocyte, Absolute 0.6 10 3/mcL Normal 0.1-1.4 [facility] MAIN Comment on above: Performed By: #### G FR, CMP, A1C, MG, LIPID, TSH, TROPHS #### [address] [address] Monocytes/100 WBC (Bld) 10.4 % Normal 2.0-13.0 [facility] MAIN Comment on above: Performed By: #### G FR, CMP, A1C, MG, LIPID, TSH, TROPHS #### [address] [address] Neutrophils/100 WBC (Bld) 68.9 % Normal 50.0-75.0 [facility] Comment on above: Performed By: #### G FR, CMP, A1C, MG, LIPID, TSH, TROPHS #### [place] [id number] [place] [address] Basophil, Absolute 0.1 10 3/mcL Normal 0.0-0.3 [facility] Comment on above: Performed By: #### B MP, TROPHS, ANEU, GFR, MDW, CBC, ADIFF #### [address] [address] Basophils/100 WBC (Bld) 0.9 % Normal 0.0-2.5 [facility] Comment on above: Performed By: #### B MP, TROPHS, ANEU, GFR, MDW, CBC, ADIFF #### [address] [address] Eosinophil, Absolute 0.5 10 3/mcL Normal 0.0-0.7 [facility] Comment on above: Performed By: #### B MP, TROPHS, ANEU, GFR, MDW, CBC, ADIFF #### [address] [address] Eosinophils/100 WBC (Bld) 7.3 % High 0.0-6.0 [facility] Comment on above: Performed By: #### B MP, TROPHS, ANEU, GFR, MDW, CBC, ADIFF #### [address] [address] Lymphocyte, Absolute 1.2 10 3/mcL Normal 0.9-4.3 [facility] Comment on above: Performed By: #### B MP, TROPHS, ANEU, GFR, MDW, CBC, ADIFF #### [address] [address] Lymphocytes/100 WBC (Bld) 18.3 % Low 20.0-40.0 [facility] Comment on above: Performed By: #### B MP, TROPHS, ANEU, GFR, MDW, CBC, ADIFF #### [address] [address] Monocyte, Absolute 0.6 10 3/mcL Normal 0.1-1.4 [facility] Comment on above: Performed By: #### B MP, TROPHS, ANEU, GFR, MDW, CBC, ADIFF #### [place] [address] [place], [place] [address] Monocytes/100 WBC (Bld) 9.4 % Normal 2.0-13.0 [facility] Comment on above: Performed By: #### B MP, TROPHS, ANEU, GFR, MDW, CBC, ADIFF #### [place] [address] [place], [place] [address] Neutrophils/100 WBC (Bld) 64.1 % Normal 50.0-75.0 [facility] Comment on above: Performed By: #### B MP, TROPHS, ANEU, GFR, MDW, CBC, ADIFF #### [place] [address] [place], [place] [address] .GFRon 03-01-2025 Estimated Glomerular Filtration Rate 6 ml/min/1.73sqm [facility] MAIN Comment on above: Result Comment: Stages of Chronic Kidney Disease (CKD) Stage Description eGFR(ml/min/1.73 sq.m.) CKD 1 Normal kidney function or >=90 normal kindney function with possible kidney damage (ex. Proteinuria) CKD 2 Kidney damage with mild loss 60-89 of kidney function CKD 3a Mild to moderate loss of kidney 45-59 function CKD 3b Moderate to severe loss of 30-44 of kindey function CKD 4 Severe loss of kidney function 15-29 CKD 5 Kidney failure <15 Note: (go live 2024) the eGFR calculation was updated to the 2020 CKD-EPI creatinine equation without a race factor to calculate the eGFR results. Performed By: #### G FR, CMP, A1C, MG, LIPID, TSH, TROPHS #### [facility] [address] [place] [address] Estimated Glomerular Filtration Rate 6 ml/min/1.73sqm [facility] Comment on above: Result Comment: Stages of Chronic Kidney Disease (CKD) Stage Description eGFR(ml/min/1.73 sq.m.) CKD 1 Normal kidney function or >=90 normal kindney function with possible kidney damage (ex. Proteinuria) CKD 2 Kidney damage with mild loss 60-89 of kidney function CKD 3a Mild to moderate loss of kidney 45-59 function CKD 3b Moderate to severe loss of 30-44 of kindey function CKD 4 Severe loss of kidney function 15-29 CKD 5 Kidney failure <15 Note: (go live 2024) the eGFR calculation was updated to the 2020 CKD-EPI creatinine equation without a race factor to calculate the eGFR results. Performed By: #### B MP, TROPHS, ANEU, GFR, MDW, CBC, ADIFF #### [address] [address] .MDWon 03-01-2025 Monocyte Distribution Width 19.17 Normal 0.00-20.00 [facility] Comment on above: Result Comment: For ED adult patients suspected of sepsis, MDW<=20.0 does not rule out sepsis or risk of sepsis Performed By: #### B MP, TROPHS, ANEU, GFR, MDW, CBC, ADIFF #### [address] [address] .NEUABSon 03-01-2025 Neutrophil, Absolute 3.9 10 3/mcL Normal 2.3-8.1 [facility] MAIN Comment on above: Performed By: #### G FR, CMP, A1C, MG, LIPID, TSH, TROPHS #### [facility] [address] [place] [address] Neutrophil, Absolute 4.3 10 3/mcL Normal 2.3-8.1 [facility] Comment on above: Performed By: #### B MP, TROPHS, ANEU, GFR, MDW, CBC, ADIFF #### [address] [address] APTTon 03-01-2025 aPTT Coag (Bld) [Time] 44.4 s High 25.0-35.0 [facility] MAIN Comment on above: Result Comment: For Heparin anticoagulation therapy, the recommended therapeutic range is: 54-77 seconds (APTT Correlation with Anti-Xa therapeutic range of 0.3-0.7 units/ml). PLEASE REFERENCE THE PHARMACY PROTOCOL FOR DOSING. Performed By: #### G FR, CMP, A1C, MG, LIPID, TSH, TROPHS #### [address] [address] aPTT Coag (Bld) [Time] 29.2 s Normal 25.0-35.0 [facility] MAIN Comment on above: Result Comment: For Heparin anticoagulation therapy, the recommended therapeutic range is: 54-77 seconds (APTT Correlation with Anti-Xa therapeutic range of 0.3-0.7 units/ml). PLEASE REFERENCE THE PHARMACY PROTOCOL FOR DOSING. Performed By: #### G FR, CMP, A1C, MG, LIPID, TSH, TROPHS #### [address] [address] aPTT Coag (Bld) [Time] 28.9 s Normal 25.0-35.0 [facility] Comment on above: Result Comment: For Heparin anticoagulation therapy, the recommended therapeutic range is: 45.4-75.9 seconds. Patients on heparin therapy may have an extreme result. Performed By: #### B MP, TROPHS, ANEU, GFR, MDW, CBC, ADIFF #### [address] [address] BMPon 03-01-2025 BUN/Creatinine Ratio 9 ratio Normal 7-27 [facility] Comment on above: Performed By: #### B MP, TROPHS, ANEU, GFR, MDW, CBC, ADIFF #### [address] [address] Calcium [Mass/Vol] 9.8 mg/dL Normal 8.4-10.2 [facility] Comment on above: Performed By: #### B MP, TROPHS, ANEU, GFR, MDW, CBC, ADIFF #### [address] [address] Chloride [Moles/Vol] 101 mmol/L Normal 98-107 [facility] Comment on above: Performed By: #### B MP, TROPHS, ANEU, GFR, MDW, CBC, ADIFF #### [address] [address] CO2 [Moles/Vol] 30 mmol/L Normal 23-31 [facility] Comment on above: Performed By: #### B MP, TROPHS, ANEU, GFR, MDW, CBC, ADIFF #### [address] [address] Creatinine [Mass/Vol] 7.80 mg/dL High 0.67-1.17 [facility] Comment on above: Performed By: #### B MP, TROPHS, ANEU, GFR, MDW, CBC, ADIFF #### [address] [address] Electrolyte Balance 9.0 mEq/L Normal 4.0-15.0 [facility] Comment on above: Performed By: #### B MP, TROPHS, ANEU, GFR, MDW, CBC, ADIFF #### [address] [address] Glucose [Mass/Vol] 109 mg/dL Normal 83-110 [facility] Comment on above: Performed By: #### B MP, TROPHS, ANEU, GFR, MDW, CBC, ADIFF #### [address] [address] Potassium [Moles/Vol] 4.7 mmol/L Normal 3.5-5.1 [facility] Comment on above: Performed By: #### B MP, TROPHS, ANEU, GFR, MDW, CBC, ADIFF #### [address] [address] Sodium [Moles/Vol] 140 mmol/L Normal 136-145 [facility] Comment on above: Performed By: #### B MP, TROPHS, ANEU, GFR, MDW, CBC, ADIFF #### [address] [address] Urea nitrogen [Mass/Vol] 67 mg/dL High 7-18 [facility] Comment on above: Performed By: #### B MP, TROPHS, ANEU, GFR, MDW, CBC, ADIFF #### [address] [address] CBCon 03-01-2025 Erythrocyte distribution width (RBC) [Ratio] 18.2 % High 11.5-15.5 [facility] MAIN Comment on above: Performed By: #### G FR, CMP, A1C, MG, LIPID, TSH, TROPHS #### [address] [address] Hematocrit (Bld) [Volume fraction] 33.2 % Low 40.0-52.0 [facility] MAIN Comment on above: Performed By: #### G FR, CMP, A1C, MG, LIPID, TSH, TROPHS #### [place] [address] Hgb 10.9 G/dL Low 13.0-17.5 [facility] MAIN Comment on above: Performed By: #### G FR, CMP, A1C, MG, LIPID, TSH, TROPHS #### [place] [address] MCH (RBC) [Entitic mass] 30.2 pg Normal 27.0-33.0 [facility] MAIN Comment on above: Performed By: #### G FR, CMP, A1C, MG, LIPID, TSH, TROPHS #### [place] [address] MCHC 32.7 G/dL Normal 32.0-36.0 [facility] MAIN Comment on above: Performed By: #### G FR, CMP, A1C, MG, LIPID, TSH, TROPHS #### [place] [id number] MCV (RBC) [Entitic vol] 92.5 fL Normal 81.0-100.0 [facility] MAIN Comment on above: Performed By: #### G FR, CMP, A1C, MG, LIPID, TSH, TROPHS #### [place] [id number] Platelet 129 10 3/mcL Low 150-450 [facility] MAIN Comment on above: Performed By: #### G FR, CMP, A1C, MG, LIPID, TSH, TROPHS #### [place] [address] Platelet mean volume (Bld) [Entitic vol] 9.0 fL Normal 6.4-10.5 [facility] MAIN Comment on above: Performed By: #### G FR, CMP, A1C, MG, LIPID, TSH, TROPHS #### [address] [address] RBC 3.59 10 6/mcL Low 4.50-6.00 [facility] MAIN Comment on above: Performed By: #### G FR, CMP, A1C, MG, LIPID, TSH, TROPHS #### [address] [address] WBC 5.6 10 3/mcL Normal 4.5-10.8 [facility] Comment on above: Performed By: #### G FR, CMP, A1C, MG, LIPID, TSH, TROPHS #### [address] [address] Erythrocyte distribution width (RBC) [Ratio] 18.5 % High 11.5-15.5 [facility] Comment on above: Performed By: #### B MP, TROPHS, ANEU, GFR, MDW, CBC, ADIFF #### [address] [address] Hematocrit (Bld) [Volume fraction] 35.3 % Low 40.0-52.0 [facility] Comment on above: Performed By: #### B MP, TROPHS, ANEU, GFR, MDW, CBC, ADIFF #### [address] [address] Hgb 11.3 G/dL Low 13.0-17.5 [facility] Comment on above: Performed By: #### B MP, TROPHS, ANEU, GFR, MDW, CBC, ADIFF #### [address] [address] MCH (RBC) [Entitic mass] 29.5 pg Normal 27.0-33.0 [facility] Comment on above: Performed By: #### B MP, TROPHS, ANEU, GFR, MDW, CBC, ADIFF #### [address] [address] MCHC 32.0 G/dL Normal 32.0-36.0 [facility] Comment on above: Performed By: #### B MP, TROPHS, ANEU, GFR, MDW, CBC, ADIFF #### [place] [id number] [place], [place] [address] MCV (RBC) [Entitic vol] 92.2 fL Normal 81.0-100.0 [facility] Comment on above: Performed By: #### B MP, TROPHS, ANEU, GFR, MDW, CBC, ADIFF #### [address] [address] Platelet 139 10 3/mcL Low 150-450 [facility] Comment on above: Performed By: #### B MP, TROPHS, ANEU, GFR, MDW, CBC, ADIFF #### [address] [address] Platelet mean volume (Bld) [Entitic vol] 8.9 fL Normal 6.4-10.5 [facility] Comment on above: Performed By: #### B MP, TROPHS, ANEU, GFR, MDW, CBC, ADIFF #### [address] [address] RBC 3.83 10 6/mcL Low 4.50-6.00 [facility] Comment on above: Performed By: #### B MP, TROPHS, ANEU, GFR, MDW, CBC, ADIFF #### [address] [address] WBC 6.8 10 3/mcL Normal 4.5-10.8 [facility] Comment on above: Performed By: #### B MP, TROPHS, ANEU, GFR, MDW, CBC, ADIFF #### [address] [address] CMPon 03-01-2025 Albumin Level 3.4 G/dL Normal 3.2-4.8 [facility] Comment on above: Performed By: #### G FR, CMP, A1C, MG, LIPID, TSH, TROPHS #### [facility] [address] [place] [address] Albumin/Globulin [Mass ratio] 1.2 {ratio} Normal 0.9-1.6 [facility] Comment on above: Performed By: #### G FR, CMP, A1C, MG, LIPID, TSH, TROPHS #### [place] [address] ALP [Catalytic activity/Vol] 88 U/L Normal 38-126 [facility] Comment on above: Performed By: #### G FR, CMP, A1C, MG, LIPID, TSH, TROPHS #### [place] [address] ALT [Catalytic activity/Vol] 12 U/L Normal 12-55 [facility] Comment on above: Performed By: #### G FR, CMP, A1C, MG, LIPID, TSH, TROPHS #### [place] [id number] AST [Catalytic activity/Vol] 20 U/L Normal 8-34 [facility] Comment on above: Performed By: #### G FR, CMP, A1C, MG, LIPID, TSH, TROPHS #### [place] [address] Bili Total 0.20 mg/dL Normal 0.20-1.20 [facility] Comment on above: Result Comment: Use of this assay is not recommended for patients undergoing treatment with eltrombopag due to the potential for falsely elevated results. Performed By: #### G FR, CMP, A1C, MG, LIPID, TSH, TROPHS #### [place] [address] BUN/Creatinine Ratio 7.3 ratio Low 10.0-22.0 [facility] Comment on above: Performed By: #### G FR, CMP, A1C, MG, LIPID, TSH, TROPHS #### [place] [id number] Calcium [Mass/Vol] 9.1 mg/dL Normal 8.7-10.4 [facility] MAIN Comment on above: Performed By: #### G FR, CMP, A1C, MG, LIPID, TSH, TROPHS #### [place] [id number] Chloride [Moles/Vol] 98 mmol/L Normal 98-110 [facility] Comment on above: Performed By: #### G FR, CMP, A1C, MG, LIPID, TSH, TROPHS #### [address] [address] CO2 [Moles/Vol] 28 mmol/L Normal 22-32 [facility] Comment on above: Performed By: #### G FR, CMP, A1C, MG, LIPID, TSH, TROPHS #### [address] [address] Creatinine [Mass/Vol] 8.22 mg/dL High 0.60-1.40 [facility] Comment on above: Result Comment: Test ing performed on [employer] analyzer using enzymatic creatinine methodology. Performed By: #### G FR, CMP, A1C, MG, LIPID, TSH, TROPHS #### [address] [address] Electrolyte Balance 14.0 mEq/L Normal 4.0-15.0 [facility]IN Comment on above: Performed By: #### G FR, CMP, A1C, MG, LIPID, TSH, TROPHS #### [address] [address] Globulin 2.9 G/dL Normal 2.5-4.2 [facility] Comment on above: Performed By: #### G FR, CMP, A1C, MG, LIPID, TSH, TROPHS #### [address] [address] Glucose [Mass/Vol] 102 mg/dL Normal 82-115 [facility] Comment on above: Performed By: #### G FR, CMP, A1C, MG, LIPID, TSH, TROPHS #### [address] [address] Potassium [Moles/Vol] 5.6 mmol/L High 3.5-5.0 [facility] Comment on above: Performed By: #### G FR, CMP, A1C, MG, LIPID, TSH, TROPHS #### [address] [address] Sodium [Moles/Vol] 140 mmol/L Normal 136-145 [facility] Comment on above: Performed By: #### G FR, CMP, A1C, MG, LIPID, TSH, TROPHS #### [address] [address] Total Protein 6.3 G/dL Normal 5.7-8.2 [facility] Comment on above: Performed By: #### G FR, CMP, A1C, MG, LIPID, TSH, TROPHS #### [address] [address] Urea nitrogen [Mass/Vol] 60.0 mg/dL High 8.0-22.0 [facility] Comment on above: Performed By: #### G FR, CMP, A1C, MG, LIPID, TSH, TROPHS #### [address] [address] CVFLURVon 03-01-2025 FLU A PCR Negative Normal Negative [facility] Comment on above: Performed By: #### B MP, TROPHS, ANEU, GFR, MDW, CBC, ADIFF #### [place] [address] FLU B PCR Negative Normal Negative [facility] Comment on above: Performed By: #### B MP, TROPHS, ANEU, GFR, MDW, CBC, ADIFF #### [place] [address] RSV PCR Negative Normal Negative [facility] Comment on above: Performed By: #### B MP, TROPHS, ANEU, GFR, MDW, CBC, ADIFF #### [place] [address] SARS-CoV-2 (COVID-19) RNA HENRY+probe Ql (Unsp spec) Negative Normal Negative [facility] Comment on above: Result Comment: Resu lts from the Xpert Xpress CoV-2/Flu/RSV plus test should be correlated with the clinical history, epidemiological data, and other data available to the clinical evaluating the patient. Performance of the Xpert Xpress CoV-2/Flu/RSV plus test has only been established in nasopharyngeal swab specimen. Erroneous test results might occur from improper specimen collection, failure to follow the recommended sample collection, handling and storage procedures, technical error, or sample mix-up. False negative results may occur if a virus is present at a level below the analytical limit of detection. Viral nucleic acid may persist in vivo, independent of virus viability. Detection of analyte target(s) does not imply that the corresponding virus(es) are infectious or are the causative agents for clinical symptoms. Recent patient exposure to FluMist or other live attenuated influenza vaccines may cause inaccurate positive results. Performed By: #### B MP, TROPHS, ANEU, GFR, MDW, CBC, ADIFF #### [place] [id number] [place], [place] [address] LABORATORYOrdered By: SYSTEM SYSTEM on 03-01-2025 aPTT Coag (Bld) [Time] 44.4 s High 25.0 - 35.0 seconds [facility] Comment on above: Interpretive Data: F or Heparin anticoagulation therapy, the recommended therapeutic range is: 54-77 seconds (APTT Correlation with Anti-Xa therapeutic range of 0.3-0.7 units/ml). PLEASE REFERENCE THE PHARMACY PROTOCOL FOR DOSING. Troponin I.cardiac DL <= 0.01 ng/mL [Mass/Vol] 204 ng/L High 0 - 54 ng/L ADM Comment on above: Interpretive Data: High Sensitive Troponin I Reference Ranges: Female: 0-34 ng/L Male: 0-54 ng/L Testing performed on [employer] analyzer using direct chemiluminescent technology. Troponin I.cardiac DL <= 0.01 ng/mL [Mass/Vol] 132 ng/L High 0 - 54 ng/L ADM Comment on above: Interpretive Data: High Sensitive Troponin I Reference Ranges: Female: 0-34 ng/L Male: 0-54 ng/L Testing performed on [employer] IM analyzer using direct chemiluminescent technology. Albumin BCP dye [Mass/Vol] 3.4 G/dL Normal 3.2 - 4.8 G/dL ADM Albumin/Globulin [Mass ratio] 1.2 {ratio} Normal 0.9 - 1.6 ratio ADM SS ALP [Catalytic activity/Vol] 88 U/L Normal 38 - 126 U/L ADM ALT No additional P-5'-P [Catalytic activity/Vol] 12 U/L Normal 12 - 55 U/L ADM SS AST [Catalytic activity/Vol] 20 U/L Normal 8 - 34 U/L AH ADM SS Basophils (Bld) [#/Vol] 0.0 103/mcL Normal 0.0 - 0.3 10^3/mcL AH Workflow SS Basophils/100 WBC (Bld) 0.7 % Normal 0.0 - 2.5 % Workflow SS Bilirubin [Mass/Vol] 0.20 mg/dL Normal 0.20 - 1.20 mg/dL AH ADM SS Comment on above: Interpretive Data: U se of this assay is not recommended for patients undergoing treatment with eltrombopag due to the potential for falsely elevated results. Calcium [Mass/Vol] 9.1 mg/dL Normal 8.7 - 10. 4 mg/dL AH ADM SS Chloride [Moles/Vol] 98 mmol/L Normal 98 - 110 mEq/L AH ADM SS CO2 [Moles/Vol] 28 mmol/L Normal 22 - 32 mEq/L ADM SS Creatinine [Mass/Vol] 8.22 mg/dL High 0.60 - 1.40 mg/dL ADM SS Comment on above: Interpretive Data: T esting performed on [employer] analyzer using enzymatic creatinine methodology. Electrolyte Balance 14.0 mEq/L Normal 4.0 - 15 .0 mEq/L ADM SS Eosinophils (Bld) [#/Vol] 0.2 103/mcL Normal 0.0 - 0.7 10^3/mcL Workflow SS Eosinophils/100 WBC (Bld) 3.1 % Normal 0.0 - 6.0 % Workflow SS Erythrocyte distribution width (RBC) [Ratio] 18.2 % High 11.5 - 15.5 % Workflow SS Estimated Glomerular Filtration Rate 6 ml/min/1.73sqm Invalid Interpretation Code ADM SS Comment on above: Interpretive Data: Stages of Chronic Kidney Disease (CKD) Stage Description eGFR(ml/min/1.73 sq.m.) CKD 1 Normal kidney function or >=90 normal kindney function with possible kidney damage (ex. Proteinuria) CKD 2 Kidney damage with mild loss 60-89 of kidney function CKD 3a Mild to moderate loss of kidney 45-59 function CKD 3b Moderate to severe loss of 30-44 of kindey function CKD 4 Severe loss of kidney function 15-29 CKD 5 Kidney failure <15 Note: (go live 2024) the eGFR calculation was updated to the 2020 CKD-EPI creatinine equation without a race factor to calculate the eGFR results. Globulin 2.9 G/dL Normal 2.5 - 4.2 G/dL ADM SS Glucose [Mass/Vol] 102 mg/dL Normal 82 - 115 mg/dL ADM SS Hematocrit (Bld) [Volume fraction] 33.2 % Low 40.0 - 52.0 % Workflow SS Hemoglobin (Bld) [Mass/Vol] 10.9 G/dL Low 13.0 - 17.5 G/dL Workflow SS Lymphocytes (Bld) [#/Vol] 1.0 103/mcL Normal 0.9 - 4.3 10^3/mcL Workflow SS Lymphocytes/100 WBC (Bld) 16.9 % Low 20.0 - 40.0 % Workflow SS Magnesium [Mass/Vol] 2.4 mg/dL Normal 1.6 - 2.4 mg/dL ADM SS MCH (RBC) [Entitic mass] 30.2 pg Normal 27.0 - 33.0 pg Workflow SS MCHC 32.7 G/dL Normal 32.0 - 36.0 G/dL Workflow SS MCV (RBC) [Entitic vol] 92.5 fL Normal 81.0 - 100.0 fL Workflow SS Monocytes (Bld) [#/Vol] 0.6 103/mcL Normal 0.1 - 1.4 10^3/mcL Workflow SS Monocytes/100 WBC (Bld) 10.4 % Normal 2.0 - 13.0 % Workflow SS Natriuretic peptide.B prohormone N-Terminal IA [Mass/Vol] 21794 pg/mL High 0 - 1800 pg/mL ADM SS Neutrophils (Bld) [#/Vol] 3.9 103/mcL Normal 2.3 - 8.1 10^3/mcL Workflow SS Neutrophils/100 WBC (Bld) 68.9 % Normal 50.0 - 75.0 % Workflow SS Platelet mean volume (Bld) [Entitic vol] 9.0 fL Normal 6.4 - 10.5 fL Workflow SS Platelets (Bld) [#/Vol] 129 103/mcL Low 150 - 450 10^3/mcL Workflow SS Potassium [Moles/Vol] 5.6 mmol/L High 3.5 - 5.0 mEq/L ADM SS Protein [Mass/Vol] 6.3 G/dL Normal 5.7 - 8.2 G/dL ADM SS PT Coag (PPP) [Time] 10.8 s Normal 9.0 - 14.4 seconds [facility] Comment on above: Interpretive Data: E ffective 02/24/08, Protime results may be affected by some antibiotics (i.e. Ciprofloxacin, Azithromycin, Bactrim) which may potentiate the action of oral anticoagulants, with further increases in Protime/INR. PT International Ratio 0.9 ratio Invalid Interpretation Code [facility] Comment on above: Interpretive Data: Susanna padilla [employer] (CHEST, 1992, 102:312S-25S) recommended therapeutic range for oral anticoagulant therapy is: LOW RISK: Prophylaxis of venous thrombosis INR: 2.0-3.0 Treatment of pulmonary embolism 2.0-3.0 Prevention of systemic embolism 2.0-3.0 HIGH RISK: Mechanical prosthetic valves 2.5-3.5 RBC (Bld) [#/Vol] 3.59 106/mcL Low 4.50 - 6.0 0 10^6/mcL Workflow SS Sodium [Moles/Vol] 140 mmol/L Normal 136 - 145 mEq/L ADM SS Troponin I.cardiac DL <= 0.01 ng/mL [Mass/Vol] 190 ng/L High 0 - 54 ng/L ADM Comment on above: Interpretive Data: High Sensitive Troponin I Reference Ranges: Female: 0-34 ng/L Male: 0-54 ng/L Testing performed on DeYapa analyzer using direct chemiluminescent technology. TSH Qn 1.823 mIU/mL Normal 0.550 - 4.780 mIU/mL ADM SS TSH Qn 1.817 mIU/mL Normal 0.550 - 4.780 mIU/mL ADM SS Urea nitrogen [Mass/Vol] 60.0 mg/dL High 8.0 - 22.0 mg/dL ADM SS Urea nitrogen/Creatinine [Mass ratio] 7.3 ratio Low 10.0 - 22.0 ratio ADM SS WBC (Bld) [#/Vol] 5.6 103/mcL Normal 4.5 - 10.8 10^3/mcL Workflow SS Troponin I.cardiac DL <= 0.01 ng/mL [Mass/Vol] 271 ng/L High 0 - 76 ng/L ADM SS Comment on above: Interpretive Data: H igh Sensitive Troponin I Reference Ranges: Female: 0-51 ng/L Male: 0-76 ng/L Testing performed on Dimension EXL using a homogeneous sandwich chemiluminescent immunoassay based on MyRefers technology. Troponin I.cardiac DL <= 0.01 ng/mL [Mass/Vol] 260 ng/L High 0 - 76 ng/L AO ADM SS Comment on above: Interpretive Data: H igh Sensitive Troponin I Reference Ranges: Female: 0-51 ng/L Male: 0-76 ng/L Testing performed on Dimension EXL using a homogeneous sandwich chemiluminescent immunoassay based on MyRefers technology. aPTT Coag (PPP) [Time] 28.9 s Normal 25.0 - 35.0 seconds AO [facility] SS Comment on above: Interpretive Data: F or Heparin anticoagulation therapy, the recommended therapeutic range is: 45.4-75.9 seconds. Patients on heparin therapy may have an extreme result. Basophils (Bld) [#/Vol] 0.1 103/mcL Normal 0.0 - 0.3 10^3/mcL AO Workflow SS Basophils/100 WBC (Bld) 0.9 % Normal 0.0 - 2.5 % AO Workflow SS Calcium [Mass/Vol] 9.8 mg/dL Normal 8.4 - 10. 2 mg/dL AO ADM SS Chloride [Moles/Vol] 101 mmol/L Normal 98 - 107 mmol/L AO ADM SS CO2 [Moles/Vol] 30 mmol/L Normal 23 - 31 mmol/L AO ADM SS Creatinine [Mass/Vol] 7.80 mg/dL High 0.67 - 1.17 mg/dL AO ADM SS Electrolyte Balance 9.0 mEq/L Normal 4.0 - 15 .0 mEq/L AO ADM SS Eosinophil, Absolute 0.5 103/mcL Normal 0.0 - 0.7 10^3/mcL AO Workflow SS Eosinophils/100 WBC (Bld) 7.3 % High 0.0 - 6.0 % AO Workflow SS Erythrocyte distribution width (RBC) [Ratio] 18.5 % High 11.5 - 15.5 % AO Workflow SS Estimated Glomerular Filtration Rate 6 ml/min/1.73sqm Invalid Interpretation Code AO Chemistry S Comment on above: Interpretive Data: Stages of Chronic Kidney Disease (CKD) Stage Description eGFR(ml/min/1.73 sq.m.) CKD 1 Normal kidney function or >=90 normal kindney function with possible kidney damage (ex. Proteinuria) CKD 2 Kidney damage with mild loss 60-89 of kidney function CKD 3a Mild to moderate loss of kidney 45-59 function CKD 3b Moderate to severe loss of 30-44 of kindey function CKD 4 Severe loss of kidney function 15-29 CKD 5 Kidney failure <15 Note: (go live 2024) the eGFR calculation was updated to the 2020 CKD-EPI creatinine equation without a race factor to calculate the eGFR results. Glucose [Mass/Vol] 109 mg/dL Normal 83 - 110 mg/dL AO ADM SS Hematocrit (Bld) [Volume fraction] 35.3 % Low 40.0 - 52.0 % AO Workflow SS Hemoglobin (Bld) [Mass/Vol] 11.3 G/dL Low 13.0 - 17.5 G/dL AO Workflow SS INR Coag (PPP) [Relative time] 0.9 {INR} Invalid Interpretation Code AO [facility] SS Comment on above: Interpretive Data: Susanna padilla [employer] [place] [employer] (CHEST, 1991, 102:312S-25S) recommended therapeutic range for oral anticoagulant therapy is: LOW RISK: Prophylaxis of venous thrombosis INR: 2.0-3.0 Treatment of pulmonary embolism 2.0-3.0 Prevention of systemic embolism 2.0-3.0 HIGH RISK: Mechanical prosthetic valves 2.5-3.5 Lymphocytes (Bld) [#/Vol] 1.2 103/mcL Normal 0.9 - 4.3 10^3/mcL AO Workflow SS Lymphocytes/100 WBC (Bld) 18.3 % Low 20.0 - 40.0 % AO Workflow SS MCH (RBC) [Entitic mass] 29.5 pg Normal 27.0 - 33.0 pg AO Workflow SS MCHC 32.0 G/dL Normal 32.0 - 36.0 G/dL AO Workflow SS MCV (RBC) [Entitic vol] 92.2 fL Normal 81.0 - 100.0 fL AO Workflow SS Monocyte distribution width Auto (Bld) [Entitic vol] 19.17 1 Normal 0.00 - 20.00 AO Workflow SS Comment on above: Result Comment: For ED adult patients suspected of sepsis, MDW<=20.0 does not rule out sepsis or risk of sepsis Monocytes (Bld) [#/Vol] 0.6 103/mcL Normal 0.1 - 1.4 10^3/mcL AO Workflow SS Monocytes/100 WBC (Bld) 9.4 % Normal 2.0 - 13.0 % AO Workflow SS Neutrophils (Bld) [#/Vol] 4.3 103/mcL Normal 2.3 - 8.1 10^3/mcL AO Workflow SS Neutrophils/100 WBC (Bld) 64.1 % Normal 50.0 - 75.0 % AO Workflow SS Platelet mean volume (Bld) [Entitic vol] 8.9 fL Normal 6.4 - 10.5 fL AO Workflow SS Platelets (Bld) [#/Vol] 139 103/mcL Low 150 - 450 10^3/mcL AO Workflow SS Potassium [Moles/Vol] 4.7 mmol/L Normal 3.5 - 5.1 mmol/L AO ADM SS PT Coag (PPP) [Time] 10.7 s Normal 9.0 - 14.4 seconds AO [facility] SS RBC (Bld) [#/Vol] 3.83 106/mcL Low 4.50 - 6.0 0 10^6/mcL AO Workflow SS Sodium [Moles/Vol] 140 mmol/L Normal 136 - 145 mmol/L AO ADM SS Urea nitrogen [Mass/Vol] 67 mg/dL High 7 - 18 mg/dL AO ADM SS Urea nitrogen/Creatinine [Mass ratio] 9 ratio Normal 7 - 27 ratio AO ADM SS WBC (Bld) [#/Vol] 6.8 103/mcL Normal 4.5 - 10.8 10^3/mcL AO Workflow SS LABORATORYOrdered By: Nadia Kirkpatrick on 03-01-2025 FLUAV RNA HENRY+probe Ql (Resp) Negative (03/01/25 4:43 AM) Normal Negative AO Auto Urine SS FLUBV RNA HENRY+probe Ql (Resp) Negative (03/01/25 4:43 AM) Normal Negative AO Auto Urine SS RSV RNA HENRY+probe Ql (Resp) Negative (03/01/25 4:43 AM) Normal Negative AO Auto Urine SS SARS-CoV-2 (COVID-19) RNA HENRY+probe Ql (Resp) Negative 7 (03/01/25 4:43 AM) Normal Negative AO Auto Urine SS Comment on above: Interpretive Data: R esults from the Xpert Xpress CoV-2/Flu/RSV plus test should be correlated with the clinical history, epidemiological data, and other data available to the clinical evaluating the patient. Performance of the Xpert Xpress CoV-2/Flu/RSV plus test has only been established in nasopharyngeal swab specimen. Erroneous test results might occur from improper specimen collection, failure to follow the recommended sample collection, handling and storage procedures, technical error, or sample mix-up. False negative results may occur if a virus is present at a level below the analytical limit of detection. Viral nucleic acid may persist in vivo, independent of virus viability. Detection of analyte target(s) does not imply that the corresponding virus(es) are infectious or are the causative agents for clinical symptoms. Recent patient exposure to FluMist or other live attenuated influenza vaccines may cause inaccurate positive results. MGon 03-01-2025 Magnesium [Mass/Vol] 2.4 mg/dL Normal 1.6-2.4 [facility] Comment on above: Performed By: #### G FR, CMP, A1C, MG, LIPID, TSH, TROPHS #### [place] [address] PBNPon 03-01-2025 Natriuretic peptide B (Bld) [Mass/Vol] 66438 pg/mL High 0-1800 [facility] Comment on above: Performed By: #### G FR, CMP, A1C, MG, LIPID, TSH, TROPHS #### [place] [address] PROon 03-01-2025 INR Coag (PPP) [Relative time] 0.9 {INR} Normal [facility] Comment on above: Result Comment: [employer] [place] [employer] (CHEST, 1991, 102:312S-25S) recommended therapeutic range for oral anticoagulant therapy is: LOW RISK: Prophylaxis of venous thrombosis INR: 2.0-3.0 Treatment of pulmonary embolism 2.0-3.0 Prevention of systemic embolism 2.0-3.0 HIGH RISK: Mechanical prosthetic valves 2.5-3.5 Performed By: #### G FR, CMP, A1C, MG, LIPID, TSH, TROPHS #### [address] [address] PT Coag (PPP) [Time] 10.8 s Normal 9.0-14.4 [facility] Comment on above: Result Comment: Effe ctive 02/24/08, Protime results may be affected by some antibiotics (i.e. Ciprofloxacin, Azithromycin, Bactrim) which may potentiate the action of oral anticoagulants, with further increases in Protime/INR. Performed By: #### G FR, CMP, A1C, MG, LIPID, TSH, TROPHS #### [facility] [address] [place] [id number] PT Coag (PPP) [Time] 10.7 s Normal 9.0-14.4 [facility] Comment on above: Performed By: #### B MP, TROPHS, ANEU, GFR, MDW, CBC, ADIFF #### [place] [id number] [place], [place] [address] PT International Ratio 0.9 Normal [facility] Comment on above: Result Comment: [employer] [place] [employer] (CHEST, 1992, 102:312S-25S) recommended therapeutic range for oral anticoagulant therapy is: LOW RISK: Prophylaxis of venous thrombosis INR: 2.0-3.0 Treatment of pulmonary embolism 2.0-3.0 Prevention of systemic embolism 2.0-3.0 HIGH RISK: Mechanical prosthetic valves 2.5-3.5 Performed By: #### B MP, TROPHS, ANEU, GFR, MDW, CBC, ADIFF #### [place] [id number] [place], [place] [address] [facility] High Sensitivity Troponin I 204 ng/L High [address] MAIN Comment on above: Result Comment: High Sensitive Troponin I Reference Ranges: Female: 0-34 ng/L Male: 0-54 ng/L Testing performed on Atellica IM analyzer using direct chemiluminescent technology. Performed By: #### G FR, CMP, A1C, MG, LIPID, TSH, TROPHS #### [facility] [address] [place] [address] High Sensitivity Troponin I 132 ng/L High [address] MAIN Comment on above: Result Comment: High Sensitive Troponin I Reference Ranges: Female: 0-34 ng/L Male: 0-54 ng/L Testing performed on Atellica IM analyzer using direct chemiluminescent technology. Performed By: #### G FR, CMP, A1C, MG, LIPID, TSH, TROPHS #### [facility] [address] [place] [address] High Sensitivity Troponin I 190 ng/L High 0-54 [facility] Comment on above: Result Comment: High Sensitive Troponin I Reference Ranges: Female: 0-34 ng/L Male: 0-54 ng/L Testing performed on DeYapa analyzer using direct chemiluminescent technology. Performed By: #### G FR, CMP, A1C, MG, LIPID, TSH, TROPHS #### [address] [address] High Sensitivity Troponin I 271 ng/L High 0-76 [facility] Comment on above: Result Comment: High Sensitive Troponin I Reference Ranges: Female: 0-51 ng/L Male: 0-76 ng/L Testing performed on ParkWhiz using a homogeneous sandwich chemiluminescent immunoassay based on LOCI technology. Performed By: #### B MP, TROPHS, ANEU, GFR, MDW, CBC, ADIFF #### [address] [address] High Sensitivity Troponin I 260 ng/L [facility] 0-76 [facility] Comment on above: Result Comment: High Sensitive Troponin I Reference Ranges: Female: 0-51 ng/L Male: 0-76 ng/L Testing performed on [employer] using a homogeneous sandwich chemiluminescent immunoassay based on MyRefers technology. Performed By: #### B MP, TROPHS, ANEU, GFR, MDW, CBC, ADIFF #### [address] [address] TSHon 03-01-2025 TSH 1.823 mIU/mL Normal 0.550-4.780 [facility] Comment on above: Performed By: #### G FR, CMP, A1C, MG, LIPID, TSH, TROPHS #### [address] [address] TSH 1.817 mIU/mL Normal 0.550-4.780 [facility] Comment on above: Performed By: #### G FR, CMP, A1C, MG, LIPID, TSH, TROPHS #### [address] [address] XR CHEST 1 VIEWon 03-01-2025 XR CHEST 1 VIEW ORIGINAL EXAMINATION: ONE XRAY VIEW OF THE CHEST 03/01/2025 1:02 pm COMPARISON: 03/01/2025 HISTORY: ORDERING SYSTEM PROVIDED HISTORY: Reason for Exam: Chest Pain FINDINGS: Pulmonary vascular cephalization, veiling of the lower lobe vessels, cardiomegaly, and left ventricular configuration noted. Patient status post TAVR procedure. There is no pneumothorax or acute bony abnormality. IMPRESSION: 1. Mild pulmonary edema pattern. 2. Status post TAVR procedure. Interpreted by: Alberto Bryson DO Preliminary Report By: Alberto Bryson DO Electronically signed By Alberto Bryson DO Dictated Date: 03/01/2025 1:22:05 PM Prelim Date: 03/01/2025 1:23:26 PM Sign Date: 03/01/2025 1:23:26 PM Ordering Provider: MICHAEL STEIN [facility] MAIN XR CHEST 1 VIEW ORIGINAL EXAMINATION: ONE XRAY VIEW OF THE CHEST03/01/2025 4:57 am CHEST ONE VIEW AP/PA COMPARISON: None HISTORY: ORDERING SYSTEM PROVIDED HISTORY: Reason for Exam: chest pain FINDINGS: Mild cardiomegaly. Atherosclerotic calcification of the aorta is noted. Mild interstitial opacities are present bilaterally. No focal consolidation, pleural effusion, or vascular congestion is seen. The osseous structures are intact. IMPRESSION: Mild interstitial opacities bilaterally could represent a developing infectious or inflammatory process. Interpreted by: Alcides Morales MD Preliminary Report By: Alcides Morales MD Electronically signed By Alcides Morales MD Dictated Date: 03/01/2025 5:32:15 AM Prelim Date: 03/01/2025 5:35:04 AM Sign Date: 03/01/2025 5:35:04 AM Ordering Provider: RAND DHILLON [facility] XR CHEST 2V FRONTAL/LATon XR CHEST 2V FRONTAL/LAT * * *Final Report* * * DATE OF EXAM: Feb 18 2025 8:44AM WOX [id number] - XR CHEST 2V FRONTAL/LAT / PROCEDURE REASON: Bacterial pneumonia * * * * Physician Interpretation * * * * EXAMINATION: CHEST RADIOGRAPH (2 VIEW FRONTAL and LATERAL) CLINICAL HISTORY: Bacterial pneumonia MQ: XC2_6 EXAM DATE/TIME: 02/18/2025 8:44 AM COMPARISON: 02/02/2025 RESULT: Lines, tubes, and devices: None. Lungs and pleura: Left lower lobe atelectasis and/or infiltrate. Grossly stable. Probable small left pleural effusion.. No lung mass. No pneumothorax. Lung wilkinson are otherwise clear Cardiomediastinal silhouette: Enlarged cardiomediastinal silhouette. Bones and soft tissues: Unremarkable. IMPRESSION: Left lower lobe atelectasis and/or infiltrate. Grossly stable. Probable small left pleural effusion Cardiomegaly Counter Supply Worker: [facility] Transcribe Date/Time: Feb 18 2025 3:25P Dictated by : YEHUDA WHEATLEY MD This examination was interpreted and the report reviewed and electronically signed by: YEHUDA WHEATLEY MD on Feb 18 2025 3:30PM EST [id number] Normal [facility] XR Chest PA and Lateralon IMPRESSION: Left lower lobe atelectasis and/or infiltrate. Grossly stable. Probable small left pleural effusion Cardiomegaly Counter Supply Worker: [facility] Transcribe Date/Time: Feb 18 2025 3:25P Dictated by : YEHUDA WHEATLEY MD This examination was interpreted and the report reviewed and electronically signed by: YEHUDA WHEATLEY MD on Feb 18 2025 3:30PM EST DIVISION OF RADIOLOGY * * *Final Report* * * DATE OF EXAM: Feb 18 2025 8:44AM WOX [id number] - XR CHEST 2V FRONTAL/LAT / PROCEDURE REASON: Bacterial pneumonia * * * * Physician Interpretation * * * * EXAMINATION: CHEST RADIOGRAPH (2 VIEW FRONTAL & LATERAL) CLINICAL HISTORY: Bacterial pneumonia MQ: XC2_6 EXAM DATE/TIME: 02/18/2025 8:44 AM COMPARISON: 02/02/2025 RESULT: Lines, tubes, and devices: None. Lungs and pleura: Left lower lobe atelectasis and/or infiltrate. Grossly stable. Probable small left pleural effusion.. No lung mass. No pneumothorax. Lung wilkinson are otherwise clear Cardiomediastinal silhouette: Enlarged cardiomediastinal silhouette. Bones and soft tissues: Unremarkable. DIVISION OF RADIOLOGY Provider, [facility] - 02/18/2025 * * *Final Report* * * DATE OF EXAM: Kristopher 10 2025 8:44AM WOX [id number] - XR CHEST 2V FRONTAL/LAT / PROCEDURE REASON: Bacterial pneumonia * * * * Physician Interpretation * * * * EXAMINATION: CHEST RADIOGRAPH (2 VIEW FRONTAL & LATERAL) CLINICAL HISTORY: Bacterial pneumonia MQ: XC2_6 EXAM DATE/TIME: 02/18/2025 8:44 AM COMPARISON: 02/02/2025 RESULT: Lines, tubes, and devices: None. Lungs and pleura: Left lower lobe atelectasis and/or infiltrate. Grossly stable. Probable small left pleural effusion.. No lung mass. No pneumothorax. Lung wilkinson are otherwise clear Cardiomediastinal silhouette: Enlarged cardiomediastinal silhouette. Bones and soft tissues: Unremarkable. IMPRESSION IMPRESSION: Left lower lobe atelectasis and/or infiltrate. Grossly stable. Probable small left pleural effusion Cardiomegaly Counter Supply Worker: [facility] Transcribe Date/Time: Feb 18 2025 3:25P Dictated by : YEHUDA WHEATLEY MD This examination was interpreted and the report reviewed and electronically signed by: YEHUDA WHEATLEY MD on Feb 18 2025 3:30PM EST [facility] Radiology Study observation (narrative) [facility] XR Chest PA and LateralOrder ed By: [facility] Provider on 02-18-2025 [facility] CNOVon 02-09-2025 CNOV Office Visit (CARL[facility] ) LUIS MANUEL DURAN JR ([id number]) 1940 M Date Time Provider Department 02/09/25 1:40 PM DEANNE SHEN During your visit today, we recorded the following information about you: Pulse Blood pressure Weight 80/minute 143/74 79 kg Deanne Shen APRN.CNP 02/09/2025 2:33 PM Signed Chief Complaint Patient presents with: Follow Up HPI Luis Manuel Megan Roger JACKSON is a 84 year old male who presents here today for Patient saw Dr. Ortiz this morning for stomach concerns. Will now take metoclopramide QID and pantoprazole BID. They will do further testing for digestion concerns. Patient reports he is still vomiting mucus and coughing. The cough is less often and he is still coughing up mucus. He does not have energy and feels short of breath. He denies fevers, chills. He has an appointment with his heart doctor for palpitation. He denies any swelling. Past medical history, appointments, medications, allergies reviewed. 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 Horton Cardio [place] COVID-19 virus infection 05/29/2021 05/27/2021 Diaphragmatic hernia without mention of obstruction or gangrene Hiatal hernia Elevated alkaline phosphatase level 09/24/2023 Elevated bone fraction: NM bone scan 09/2023 was normal. Elevated PSA 03/11/2019 Esophagitis, unspecified ESRD (end stage renal disease) on dialysis ([facility]) 07/11/2023 Essential hypertension, benign Ex-smoker 12/26/2020 Started age 18 up to 1.5 PPD and quit at age 35. Family history of malignant neoplasm of gastrointestinal tract GERD without esophagitis Gastroesophageal reflux Heart attack ([facility]) 2023 History of COVID-19 05/29/2021 05/27/2021 History of non-ST elevation myocardial infarction (NSTEMI) 03/06/2018 09/06/14-- stent 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 deficiency ([facility]) 10/15/2013 Living will on file 12/15/2021 DPA: Shea () Mild aortic stenosis 11/27/2021 Seeing Cardio Mixed hyperlipidemia 09/03/2013 Overweight (BMI 25.0-29.9) Parathyroid adenoma 05/27/2013 parathyroidectomy 05/27/13 Personal history of colonic polyps Colon polyps Primary hyperparathyroidism ([facility]) 03/04/2017 pituitary adenoma removed 10/16/13 2017: 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 S/P TAVR (transcatheter aortic valve replacement) 01/29/202501/2025 TIA (transient ischemic attack) 06/2010 Ulcer of esophagus without bleeding Vitamin D deficiency 10/15/2013 Previous Surgical History PAST SURGICAL HISTORY Procedure Laterality Date BX/EXC LYMPH NODE OPEN SUPERFICIAL CC CORONARY STENT 11/18/2023 2 stents to Left Circ COLONOSCOPY 12/22/2019 COLONOSCOPY FLX DX W/COLLJ SPEC WHEN PFRMD 08/2000 Colonoscopy COLONOSCOPY FLX DX W/COLLJ SPEC WHEN PFRMD 10/19/2008 EGD 06/11/2024 EGD TRANSORAL BIOPSY SINGLE/MULTIPLE 10/19/2008 ESOPHAGOGASTRODUODENOSCOPY TRANSORAL DIAGNOSTIC ESOPHAGOGASTRODUODENOSCOPY TRANSORAL DIAGNOSTIC 12/22/[address] Marcial LAPAROSCOPIC HERNIA REPAIR Right 05/21/2018 recurrent incarcerated direct right inguinal hernia PARATHYROIDECTOMY/EXPLORATI ON PARATHYROIDS 05/27/2013 Parathyroid adenoma PAST SURGICAL HISTORY OF 01/20/2021 supraumbilical ventral hernia RPR 1ST INGUN HRNA AGE 5 YRS/> REDUCIBLE Hernia repair, inguinal BILATERAL TAVR 01/2025 Family History FAMILY HISTORY Problem Relation Age of Onset Colon Cancer Mother Colon Cancer Father Arthritis Mother Heart Father SD * 2 Prostate Cancer Brother Hypertension Brother None Brother Patient Allergies ALLERGIES Allergen Reactions Axid [Nizatidine] Unknown Entex Pse [Pseudoep* Unknown Lisinopril Cough Current Medications Current Outpatient Medications on File Prior to Visit Medication Sig metoclopramide HCl (REGLAN) 5 mg tablet Take 1 tablet by mouth three times a day as needed. (Patient taking differently: Take 5 mg by mouth four times daily.) guaiFENesin (MUCINEX) 1,200 mg Ta12 Take 1 tablet by mouth once daily. ARNUITY ELLIPTA 200 mcg/actuation inhaler Inhale 1 puff as instructed once daily. fluticasone (FLONASE) 50 mcg/actuation nasal spray Use 1 spray in each nostril once daily. atorvastatin (LIPITOR) 40 mg tablet Take 1 tablet by mouth once daily. For cholesterol. albuterol HFA (PROVENTIL HFA, VENTOLIN HFA) 90 mcg/actuation inhaler Inhale 2 Puffs as instructed every 4 hours as (more content not included)... Normal [facility] Gastroenterology Visit Repor ton 02-09-2025 Gastroenterology Visit Report [facility] Gastroenterology [address] [place] [address] OFFICE VISIT Date of Service: 02/09/25 MR#: [id number] Acct: [id number] Name: LUIS MANUEL DURAN Jr. Rep #: [id number] : 1940 Provider: KRYSTINA renee Age/Sex: 84/M [place] [facility] Status: Signed Intake Vital Signs 12/17/24 08:48 02/09/25 09:13 Height 5 ft 7 in 5 ft 7 in Weight: 174 lb 173 lb 8 oz BMI 27.2 27.1 BP 117/54 L 156/60 H Blood Pressure Location Lt brachial Position Sitting Respiration 18 20 H Pulse 70 51 L Pulse Source Monitor Temp 97.3 F L 96.8 F L Temp Source Temporal Pulse Oximetry (%) 92 91 Oxygen Delivery Method room air room air Intake Visit Reasons: Vomiting/Nausea Chief Complaint: CVC removal Used Equipment Sales Representative Required: No Accompanied by: Is patient in pain?: No Allergies lisinopril Adverse Reaction (Severe, Verified 02/09/25 09:01) Other Medications ???Medication ???Instructions ???Recorded ???Confirmed ???Type aspirin 81 mg tablet,delayed 81 mg PO DAILY heart health 02/09/25 History release (Adult Low Dose Aspirin) nitroglycerin 0.4 mg sublingual 0.4 mg sublingual X1 PRN CHEST SAMMY N 01/12/20 02/09/25 History tablet atorvastatin 40 mg tablet 40 mg PO QHS cholesterol 11/24/20 02/09/25 History calcium acetate(phosphat bind) 667 667 mg PO TIDCM supplement 02/1602/09/25 History mg capsule clopidogrel 75 mg tablet 75 mg PO QDAY 10/01/24 02/09/25 Hi story finasteride 5 mg tablet 5 mg PO .QOD prostate 10/01/2409/05 History isosorbide mononitrate 30 mg 30 mg PO DAILY heart 10/01/24 07/09/05 History tablet,extended release 24 hr spacer #1 ea 10/01/24 12/17/24 Rx guaifenesin 600 mg tablet, 1,200 mg PO .QD 02/09/25 02/09/25 History extended release 12 hr (Mucus Relief ER) metoclopramide HCl 5 mg tablet 5 mg PO QAC 02/09/25 02/09/25 Hist ory pantoprazole 40 mg tablet,delayed 40 mg PO BID #180 tabs 02/09/25 0 02/09/25 Rx release Have you fallen in the past year?: Yes Nurse's Note: Is throwing up nothing but phlegm and mucus. [facility] Medical History 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 Alcohol use History of renal disease Restless legs History of edema History of stress test Hypertension Anemia History of renal dialysis Wears glasses High cholesterol History of ulceration Gastric reflux Former smoker Hoarseness Chronic cough Cardiology follow-up encounter Ventral incisional hernia without obstruction or gangrene Screening for intestinal cancer Osteopenia determined by x-ray Hyperparathyroidism Recurrent inguinal hernia of right side without obstruction or gangrene Recurrent inguinal hernia TIA (transient ischemic attack) Mild renal insufficiency Esophageal reflux Dyslipidemia Hiatal hernia CKD (chronic kidney disease) stage 3, GFR 30-59 ml/min CAD (coronary artery disease), white mountain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 Anemia History of heart attack ( 09/04/14) Hypertension Surgical History History of arteriovenostomy for renal dialysis ( 01/2022) History of ventral hernia repair Hx of colonoscopy ( 12/17/13) Hx of parathyroidectomy Hx of bilateral inguinal hernia repair Hx of heart artery stent Family History Mother Colon cancer Arthritis Father Colon cancer Myocardial infarction Brother Cancer Social History Smoking Status: Former smoker second hand exposure: No alcohol intake: current alcohol intake frequency: a few times a month substance use type: does not use caffeine: Yes what type of physical activity do you participate in: none seatbelt use: always HPI HPI Chief Complaint: CVC removal Details: LUIS MANUEL DURAN, is a 84 M who presents to the office today for - vomiting mucus and phlegm - EGD (Dr. Júnior) 3cm HH, gastritis - 3 SD in the past year - phlegm, spitting up and stomach ache - nausea, bringing up phlegm and small amounts - vomiting meals infrequently - aching abdominal pain, varies with eating, generalized and ongoing for a long time - the pain does not get worse unless too much fluid is removed - phlegm is generally worse in the morning - denies any dysphagia - denies any coughing with eating - he takes pantoprazole 40mg daily and has been on this a long time - denies any weight loss - metoclopramide 5mg started 02/06/2025 - has only been taking once daily - pneumonia, right sided, just completed ATB - reports his bowel habits are normal - seen by Pulmonary and started on an inhaler for asthma - gurjit (more content not included)... Normal [facility] LUIS MANUEL DURAN JR ([id number]) 1940 M Date Time Provider Department 02/08/25 DEANNE SHEN During your visit today, we recorded the following information about you: Anahi Galindo RN 02/08/2025 11:36 AM Signed Pt called in and reports he was diagnosed with Pneumonia. He states he was on Zithromax and Augmentin and he finished them on Saturday. Pt states he has almost gotten rid of the cough, but he brought up a lot of clear phlegm this morning. He reports to still being very fatigued and has had a headache almost this whole time. Pt reports Ibuprofen and Tylenol have helped alleviate the headache. Pt is still reporting lower abdominal pain, and has appointment with Dr Angel tomorrow morning. 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 Pt's could be heard I the background saying he wanted to make sure the Pneumonia had cleared up. Anahi Galindo RN Allergies As of Date: 02/08/2025 Noted Allergy Reaction AXID (NIZATIDINE) 07/31/2005 16 - Unknown ENTEX PSE (PSEUDOEPHEDRINE-GUAIFE* 16 - Unknown LISINOPRIL 11/22/2010 3 - Cough Date Reviewed: 02/02/2025 Reviewed by: Trevin Bermeo MA - Fully Assessed Reason for Visit: Patient Update [1234] Appointment [[id number]] Prescriptions as of 02/08/2025 - guaiFENesin (MUCINEX) 1,200 mg Ta12 Take 1 tablet by mouth once daily. - ARNUITY ELLIPTA 200 mcg/actuation inhaler Inhale 1 puff as instructed once daily. - fluticasone (FLONASE) 50 mcg/actuation nasal spray Use 1 spray in each nostril once daily. - metoclopramide HCl (REGLAN) 5 mg tablet Take 1 tablet by mouth three times a day as needed. - atorvastatin (LIPITOR) 40 mg tablet Take 1 tablet by mouth once daily. For cholesterol. - albuterol HFA (PROVENTIL HFA, VENTOLIN HFA) 90 mcg/actuation inhaler Inhale 2 Puffs as instructed every 4 hours as needed for wheezing/shortness of breath. - finasteride (PROSCAR) 5 mg tablet Take 5 mg by mouth once daily. - lansoprazole (PREVACID) 30 mg capsule Take 1 capsule by mouth once daily. - calcium acetate,phosphat bind, (PHOSLO) 667 mg capsule - clopidogrel (PLAVIX) 75 mg tablet Take 1 tablet by mouth every afternoon. - calcium citrate (CALCITRATE) 200 mg (950 mg) tab Take 1 tablet by mouth four times daily. - nitroglycerin sublingual (NITROSTAT) 0.4 mg SL tablet Dissolve 1 tablet under the tongue every 5 minutes as needed. - aspirin, enteric coated (ASPIRIN, ENTERIC COATED) 81 mg EC tablet Take 1 tablet by mouth once daily. Problem List As Of Date 02/08/2025 Noted Resolved Essential hypertension, benign [I10] Personal history of colonic polyps [Z86.0100] Gastroesophageal reflux disease [K21.9] Unspecified transient cerebral ischemia [G45.9] 01/15/2018 Ulcer of esophagus without bleeding [K22.10] 10/15/2013 BPH with obstruction/lower urinary tract sympto*08/01/2005 Esophagitis, unspecified [K20.90] 10/19/2008 10/15/2013 Benign essential tremor [G25.0] 07/03/2010 Mixed hyperlipidemia [E78.2] 09/03/2013 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 deficiency*10/15/2013 03/04/2017 Vitamin D deficiency [E55.9] 10/15/2013 Anemia of chronic disease [D63.8] 10/15/2013 Parathyroid adenoma [D35.1] 10/15/2013 12/24/2014 Primary hyperparathyroidism (HCC) [E21.0] 03/04/2017 Parathyroid adenoma [D35.1] 03/04/2017 06/03/2020 CKD (chronic kidney disease) stage 4, GFR 15-29*03/04/2017 Coronary artery disease involving white mountain foster*03/06/2018 History of non-ST elevation myocardial infarcti*03/06/2018 Elevated PSA [R97.20] 03/11/2019 Medicare annual wellness visit, subsequent [Z00*12/26/2020 Family history of malignant neoplasm of gastroi* Ex-smoker [Z87.891] 12/26/2020 History of COVID-19 [Z86.16] 05/29/2021 Mild aortic stenosis [I35.0] 11/27/2021 Living will on file [[id number]] 12/15/2021 Advance directive discussed with patient [Z71.8*12/15/2021 Chronic diastolic congestive heart failure (HCC*12/15/2021 Medication management [Z79.899] 02/22/2022 ESRD (end stage renal disease) on dialysis (HCC*07/11/2023 Elevated alkaline phosphatase level [R74.8] 09/24/2023 Hiatal hernia [K44.9] 06/11/2024 S/P TAVR (transcatheter aortic valve replacemen*01/29/2025 Encounter Status:Closed by ANAHI GALINDO on 02/08/25 [facility] Zackary 02-02-2025 CNOV Office Visit (FAMPWS ) LUIS MANUEL DURAN JR ([id number]) 1940 M Date Time Provider Department 02/02/25 8:20 AM DEANNE SHEN During your visit today, we recorded the following information about you: Pulse Blood pressure Weight 79/minute 133/60 78 kg Deanne Shen APRN.MAMMOGRAPHER 02/02/2025 8:35 AM Signed Chief Complaint Patient presents with: Cough Nausea HPI Luis Manuel Duran JR is a 84 year old male who presents here today for Above Complaints.. Patient presents for continued chronic cough. Patient reports he called Pulm and was given oral steroids and during that time his cough improved butt 2 days after stopping medication his cough returned. Saw pulm 12/17 and has follow up in March. Past medical history, appointments, medications, allergies reviewed. Previous Medical History PAST MEDICAL HISTORY Diagnosis Date Advance directive discussed with patient 12/15/2021 Discussed 12/2021 Anemia of chronic disease 10/15/2013 Benign essential tremor 07/03/2010 BPH with obstruction/lower urinary tract symptoms 08/01/2005 Chronic diastolic congestive heart failure (HCC) 12/15/2021 seeing cardio CKD (chronic kidney disease) stage 4, GFR 15-29 ml/min ([facility]) 03/04/2017 Coronary artery disease involving white mountain coronary artery of white mountain heart without angina pectoris 03/06/[address] Clifford Reveles [place] COVID-19 virus infection 05/29/2021 05/27/2021 Diaphragmatic hernia without mention of obstruction or gangrene Hiatal hernia Elevated alkaline phosphatase level 09/24/2023 Elevated bone fraction: NM bone scan 09/2023 was normal. Elevated PSA 03/11/2019 Esophagitis, unspecified ESRD (end stage renal disease) on dialysis (HCC) 07/11/2023 Essential hypertension, benign Ex-smoker 12/26/2020 Started age 18 up to 1.5 PPD and quit at age 35. 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 deficiency (HCC) 10/15/2013 Living will on file 12/15/2021 DPA: Shea () Mild aortic stenosis 11/27/2021 Seeing Cardio Mixed hyperlipidemia 09/03/2013 Overweight (BMI 25.0-29.9) Parathyroid adenoma 05/27/2013 parathyroidectomy 05/27/13 Personal history of colonic polyps Colon polyps Primary hyperparathyroidism (HCC) 03/04/2017 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: 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 S/P TAVR (transcatheter aortic valve replacement) 01/29/202501/2025 TIA (transient ischemic attack) 06/2010 Ulcer of esophagus without bleeding Vitamin D deficiency 10/15/2013 Previous Surgical History PAST SURGICAL HISTORY Procedure Laterality Date BX/EXC LYMPH NODE OPEN SUPERFICIAL CC CORONARY STENT 11/18/2023 2 stents to Left Circ COLONOSCOPY 12/22/2019 COLONOSCOPY FLX DX W/COLLJ SPEC WHEN PFRMD 08/2000 Colonoscopy COLONOSCOPY FLX DX W/COLLJ SPEC WHEN PFRMD 10/19/2008 EGD 06/11/2024 EGD TRANSORAL BIOPSY SINGLE/MULTIPLE 10/19/2008 ESOPHAGOGASTRODUODENOSCOPY TRANSORAL DIAGNOSTIC ESOPHAGOGASTRODUODENOSCOPY TRANSORAL DIAGNOSTIC 12/22/[address] Marcial LAPAROSCOPIC HERNIA REPAIR Right 05/21/2018 recurrent incarcerated direct right inguinal hernia PARATHYROIDECTOMY/EXPLORATI ON PARATHYROIDS 05/27/2013 Parathyroid adenoma PAST SURGICAL HISTORY OF 01/20/2021 supraumbilical ventral hernia RPR 1ST INGUN HRNA AGE 5 YRS/> REDUCIBLE Hernia repair, inguinal BILATERAL TAVR 01/2025 Family History FAMILY HISTORY Problem Relation Age of Onset Colon Cancer Mother Colon Cancer Father Arthritis Mother Heart Father SD * 2 Prostate Cancer Brother Hypertension Brother None Brother Patient Allergies ALLERGIES Allergen Reactions Axid [Nizatidine] Unknown Entex Pse [Pseudoep* Unknown Lisinopril Cough Current Medications Current Outpatient Medications on File Prior to Visit Medication Sig guaiFENesin (MUCINEX) 1,200 mg Ta12 Take 1 tablet by mouth once daily. ARNUITY ELLIPTA 200 mcg/actuation inhaler Inhale 1 puff as instructed once daily. fluticasone (FLONASE) 50 mcg/actuation nasal spray Use 1 spray in each nostril once daily. atorvastatin (LIPITOR) 40 mg tablet Take 1 tablet by mouth once daily. For cholesterol. albuterol HFA (PROVENTIL HFA, VENTOLIN HFA) 90 mcg/actuation inhaler Inhale 2 Puffs as instructed every 4 hours as needed for wheezing/shortness of breath. finasteride (PROSCAR) 5 mg tablet Take 5 mg by mouth once daily. lansoprazole (PREVACID) 30 mg capsule Take 1 capsule by mouth once daily. calcium acetate,phosphat bind, (PHOSLO) 667 mg capsule clopidogrel (PLAVIX) 75 mg tablet Take 1 tablet by mouth every afternoon. calcium citrate (CALCITRATE) 20 (more content not included)... Normal [facility] XR CHEST 2V FRONTAL/LATon XR CHEST 2V FRONTAL/LAT * * *Final Report* * * DATE OF EXAM: Feb 02 2025 8:56AM WOX [id number] - XR CHEST 2V FRONTAL/LAT / PROCEDURE REASON: multiple diagnoses * * * * Physician Interpretation * * * * EXAMINATION: CHEST RADIOGRAPH (2 VIEW FRONTAL and LATERAL) CLINICAL HISTORY: SOB (shortness of breath) Wheezing interval TAVR 01/29/2025 MQ: XC2_6 EXAM DATE/TIME: 02/02/2025 8:56 AM COMPARISON: 09/22/2024 RESULT: Lines, tubes, and devices: None. Lungs and pleura: * Question of some increased density possibly infiltrate or atelectasis in one of the lung bases posteriorly as seen on the lateral view. Cardiomediastinal silhouette: Normal cardiomediastinal silhouette. Bones and soft tissues: Unremarkable. IMPRESSION: Findings as discussed under Results portion of report. Counter Supply Worker: ELHAM Transcribe Date/Time: Feb 02 2025 9:11A Dictated by : DANIELLE BATES DO This examination was interpreted and the report reviewed and electronically signed by: DANIELLE BATES DO on Feb 02 2025 9:23AM EST [id number] Normal [facility] XR Chest PA and Lateralon IMPRESSION: Findings as discussed under Results portion of report. Counter Supply Worker: ELHAM Transcribe Date/Time: Feb 02 2025 9:11A Dictated by : DANIELLE BATES DO This examination was interpreted and the report reviewed and electronically signed by: DANIELLE BATES DO on Feb 02 2025 9:23AM [facility] DIVISION OF RADIOLOGY * * *Final Report* * * DATE OF EXAM: Feb 02 2025 8:56AM WOX [id number] - XR CHEST 2V FRONTAL/LAT / PROCEDURE REASON: multiple diagnoses * * * * Physician Interpretation * * * * EXAMINATION: CHEST RADIOGRAPH (2 VIEW FRONTAL & LATERAL) CLINICAL HISTORY: SOB (shortness of breath) Wheezing interval TAVR 01/29/2025 MQ: XC2_6 EXAM DATE/TIME: 02/02/2025 8:56 AM COMPARISON: 09/22/2024 RESULT: Lines, tubes, and devices: None. Lungs and pleura: * Question of some increased density possibly infiltrate or atelectasis in one of the lung bases posteriorly as seen on the lateral view. Cardiomediastinal silhouette: Normal cardiomediastinal silhouette. Bones and soft tissues: Unremarkable. DIVISION OF RADIOLOGY Provider, Obdulia Lugo - 02/02/2025 * * *Final Report* * * DATE OF EXAM: Feb 02 2025 8:56AM WOX [id number] - XR CHEST 2V FRONTAL/LAT / PROCEDURE REASON: multiple diagnoses * * * * Physician Interpretation * * * * EXAMINATION: CHEST RADIOGRAPH (2 VIEW FRONTAL & LATERAL) CLINICAL HISTORY: SOB (shortness of breath) Wheezing interval TAVR 01/29/2025 MQ: XC2_6 EXAM DATE/TIME: 02/02/2025 8:56 AM COMPARISON: 09/22/2024 RESULT: Lines, tubes, and devices: None. Lungs and pleura: * Question of some increased density possibly infiltrate or atelectasis in one of the lung bases posteriorly as seen on the lateral view. Cardiomediastinal silhouette: Normal cardiomediastinal silhouette. Bones and soft tissues: Unremarkable. IMPRESSION IMPRESSION: Findings as discussed under Results portion of report. Counter Supply Worker: ELHAM Transcribe Date/Time: Feb 02 2025 9:11A Dictated by : DANIELLE BATES DO This examination was interpreted and the report reviewed and electronically signed by: DANIELLE BATES DO on Feb 02 2025 9:23AM [facility] Radiology Study observation (narrative) [facility] XR Chest PA and LateralOrder ed By: [facility] Provider on 02-02-2025 [facility] .Auto Diffon 01-21-2025 Basophil, Absolute 0.0 10 3/mcL Normal 0.0-0.3 [facility] Comment on above: Performed By: #### B MP, TROPHS, ANEU, GFR, MDW, CBC, ADIFF #### [address] [address] Basophils/100 WBC (Bld) 0.6 % Normal 0.0-2.5 [facility] Comment on above: Performed By: #### B MP, TROPHS, ANEU, GFR, MDW, CBC, ADIFF #### [address] [address] Eosinophil, Absolute 0.5 10 3/mcL Normal 0.0-0.7 [facility] Comment on above: Performed By: #### B MP, TROPHS, ANEU, GFR, MDW, CBC, ADIFF #### [address] [address] Eosinophils/100 WBC (Bld) 6.5 % High 0.0-6.0 [facility] Comment on above: Performed By: #### B MP, TROPHS, ANEU, GFR, MDW, CBC, ADIFF #### [address] [address] Lymphocyte, Absolute 1.1 10 3/mcL Normal 0.9-4.3 [facility] Comment on above: Performed By: #### B MP, TROPHS, ANEU, GFR, MDW, CBC, ADIFF #### [address] [address] Lymphocytes/100 WBC (Bld) 15.4 % Low 20.0-40.0 [facility] Comment on above: Performed By: #### B MP, TROPHS, ANEU, GFR, MDW, CBC, ADIFF #### [address] [address] Monocyte, Absolute 0.5 10 3/mcL Normal 0.1-1.4 [facility] Comment on above: Performed By: #### B MP, TROPHS, ANEU, GFR, MDW, CBC, ADIFF #### [address] [address] Monocytes/100 WBC (Bld) 7.6 % Normal 2.0-13.0 [facility] Comment on above: Performed By: #### B MP, TROPHS, ANEU, GFR, MDW, CBC, ADIFF #### [address] [address] Neutrophils/100 WBC (Bld) 69.9 % Normal 50.0-75.0 [facility] Comment on above: Performed By: #### B MP, TROPHS, ANEU, GFR, MDW, CBC, ADIFF #### [address] [address] .GFRon 01-21-2025 Estimated Glomerular Filtration Rate 10 ml/min/1.73sqm Normal [facility] Comment on above: Result Comment: Stages of Chronic Kidney Disease (CKD) Stage Description eGFR(ml/min/1.73 sq.m.) CKD 1 Normal kidney function or >=90 normal kindney function with possible kidney damage (ex. Proteinuria) CKD 2 Kidney damage with mild loss 60-89 of kidney function CKD 3a Mild to moderate loss of kidney 45-59 function CKD 3b Moderate to severe loss of 30-44 of kindey function CKD 4 Severe loss of kidney function 15-29 CKD 5 Kidney failure <15 Note: (go live 2024) the eGFR calculation was updated to the 2020 CKD-EPI creatinine equation without a race factor to calculate the eGFR results. Performed By: #### B MP, TROPHS, ANEU, GFR, MDW, CBC, ADIFF #### [address] [address] .NEUABSon 01-21-2025 Neutrophil, Absolute 4.8 10 3/mcL Normal 2.3-8.1 [facility] Comment on above: Performed By: #### B MP, TROPHS, ANEU, GFR, MDW, CBC, ADIFF #### [address] [address] BMPon 01-21-2025 BUN/Creatinine Ratio 5 ratio Low 7-27 [facility] Comment on above: Order Comment: TO BE DONE BETWEEN 01/19/25-03/14/25 AT ANY [facility] PRIOR TO OFFICE VISIT. Performed By: #### B MP, TROPHS, ANEU, GFR, MDW, CBC, ADIFF #### [address] [address] Calcium [Mass/Vol] 10.0 mg/dL Normal 8.4-10.2 [facility] Comment on above: Order Comment: TO BE DONE BETWEEN 01/19/25-03/14/25 AT ANY [facility] PRIOR TO OFFICE VISIT. Performed By: #### B MP, TROPHS, ANEU, GFR, MDW, CBC, ADIFF #### [id number] [place], [place] [address] Chloride [Moles/Vol] 99 mmol/L Normal 98-107 [facility] Comment on above: Order Comment: TO BE DONE BETWEEN 01/19/25-03/14/25 AT ANY [facility] PRIOR TO OFFICE VISIT. Performed By: #### B MP, TROPHS, ANEU, GFR, MDW, CBC, ADIFF #### [address] [address] CO2 [Moles/Vol] 34 mmol/L High 23-31 [facility] Comment on above: Order Comment: TO BE DONE BETWEEN 01/19/25-03/14/25 AT ANY [facility] PRIOR TO OFFICE VISIT. Performed By: #### B MP, TROPHS, ANEU, GFR, MDW, CBC, ADIFF #### [address] [address] Creatinine [Mass/Vol] 5.25 mg/dL High 0.67-1.17 [facility] Comment on above: Order Comment: TO BE DONE BETWEEN 01/19/25-03/14/25 AT ANY [facility] PRIOR TO OFFICE VISIT. Performed By: #### B MP, TROPHS, ANEU, GFR, MDW, CBC, ADIFF #### [address] [address] Electrolyte Balance 6.0 mEq/L Normal 4.0-15.0 [facility] Comment on above: Order Comment: TO BE DONE BETWEEN 01/19/25-03/14/25 AT ANY [facility] PRIOR TO OFFICE VISIT. Performed By: #### B MP, TROPHS, ANEU, GFR, MDW, CBC, ADIFF #### [address] [address] Glucose [Mass/Vol] 129 mg/dL High 83-110 [facility] Comment on above: Order Comment: TO BE DONE BETWEEN 01/19/25-03/14/25 AT ANY [facility] PRIOR TO OFFICE VISIT. Performed By: #### B MP, TROPHS, ANEU, GFR, MDW, CBC, ADIFF #### [address] [address] Potassium [Moles/Vol] 4.2 mmol/L Normal 3.5-5.1 [facility] Comment on above: Order Comment: TO BE DONE BETWEEN 01/19/25-03/14/25 AT ANY [facility] PRIOR TO OFFICE VISIT. Performed By: #### B MP, TROPHS, ANEU, GFR, MDW, CBC, ADIFF #### [address] [address] Sodium [Moles/Vol] 139 mmol/L Normal 136-145 [facility] Comment on above: Order Comment: TO BE DONE BETWEEN 01/19/25-03/14/25 AT ANY [facility] PRIOR TO OFFICE VISIT. Performed By: #### B MP, TROPHS, ANEU, GFR, MDW, CBC, ADIFF #### [address] [address] Urea nitrogen [Mass/Vol] 28 mg/dL High 7-18 [facility] Comment on above: Order Comment: TO BE DONE BETWEEN 01/19/25-03/14/25 AT ANY [facility] PRIOR TO OFFICE VISIT. Performed By: #### B MP, TROPHS, ANEU, GFR, MDW, CBC, ADIFF #### [address] [place] [address] CBCon 01-21-2025 Erythrocyte distribution width (RBC) [Ratio] 17.7 % High 11.5-15.5 [facility] Comment on above: Order Comment: TO BE DONE BETWEEN 01/19/25-03/14/25 AT ANY [facility] PRIOR TO OFFICE VISIT. Performed By: #### B MP, TROPHS, ANEU, GFR, MDW, CBC, ADIFF #### [address] [address] Hematocrit (Bld) [Volume fraction] 32.5 % Low 40.0-52.0 [facility] Comment on above: Order Comment: TO BE DONE BETWEEN 01/19/25-03/14/25 AT ANY [facility] PRIOR TO OFFICE VISIT. Performed By: #### B MP, TROPHS, ANEU, GFR, MDW, CBC, ADIFF #### [address] [address] Hgb 10.5 G/dL Low 13.0-17.5 [facility] Comment on above: Order Comment: TO BE DONE BETWEEN 01/19/25-03/14/25 AT ANY [facility] PRIOR TO OFFICE VISIT. Performed By: #### B MP, TROPHS, ANEU, GFR, MDW, CBC, ADIFF #### [address] [address] MCH (RBC) [Entitic mass] 29.7 pg Normal 27.0-33.0 [facility] Comment on above: Order Comment: TO BE DONE BETWEEN 01/19/25-03/14/25 AT ANY [facility] PRIOR TO OFFICE VISIT. Performed By: #### B MP, TROPHS, ANEU, GFR, MDW, CBC, ADIFF #### [address] [address] MCHC 32.2 G/dL Normal 32.0-36.0 [facility] Comment on above: Order Comment: TO BE DONE BETWEEN 01/19/25-03/14/25 AT ANY [facility] PRIOR TO OFFICE VISIT. Performed By: #### B MP, TROPHS, ANEU, GFR, MDW, CBC, ADIFF #### [address] [address] MCV (RBC) [Entitic vol] 92.1 fL Normal 81.0-100.0 [facility] Comment on above: Order Comment: TO BE DONE BETWEEN 01/19/25-03/14/25 AT ANY [facility] PRIOR TO OFFICE VISIT. Performed By: #### B MEI, TROPHS, ANEU, GFR, MDW, CBC, ADIFF #### [address] [address] Platelet 191 10 3/mcL Normal 150-450 [facility] Comment on above: Order Comment: TO BE DONE BETWEEN 01/19/25-03/14/25 AT ANY [facility] PRIOR TO OFFICE VISIT. Performed By: #### B MEI, TROPHS, ANEU, GFR, MDW, CBC, ADIFF #### [address] [address] Platelet mean volume (Bld) [Entitic vol] 8.5 fL Normal 6.4-10.5 [facility] Comment on above: Order Comment: TO BE DONE BETWEEN 01/19/25-03/14/25 AT ANY [facility] PRIOR TO OFFICE VISIT. Performed By: #### B MEI, TROPHS, ANEU, GFR, MDW, CBC, ADIFF #### [address] [address] RBC 3.53 10 6/mcL Low 4.50-6.00 [facility] Comment on above: Order Comment: TO BE DONE BETWEEN 01/19/25-03/14/25 AT ANY [facility] PRIOR TO OFFICE VISIT. Performed By: #### B MP, TROPHS, ANEU, GFR, MDW, CBC, ADIFF #### [address] [address] WBC 6.9 10 3/mcL Normal 4.5-10.8 [facility] Comment on above: Order Comment: TO BE DONE BETWEEN 01/19/25-03/14/25 AT ANY [facility] PRIOR TO OFFICE VISIT. Performed By: #### B MP, TROPHS, ANEU, GFR, MDW, CBC, ADIFF #### Marc [place] [id number] [place] [address] LABORATORYOrdered By: SYSTEM SYSTEM on 01-21-2025 Basophils (Bld) [#/Vol] 0.0 103/mcL Normal 0.0 - 0.3 10^3/mcL AO Workflow SS Basophils/100 WBC (Bld) 0.6 % Normal 0.0 - 2.5 % AO Workflow SS Calcium [Mass/Vol] 10.0 mg/dL Normal 8.4 - 10. 2 mg/dL AO ADM SS Chloride [Moles/Vol] 99 mmol/L Normal 98 - 107 mmol/L AO ADM SS CO2 [Moles/Vol] 34 mmol/L High 23 - 31 mmol/L AO ADM SS Creatinine [Mass/Vol] 5.25 mg/dL High 0.67 - 1.17 mg/dL AO ADM SS Electrolyte Balance 6.0 mEq/L Normal 4.0 - 15 .0 mEq/L AO ADM SS Eosinophil, Absolute 0.5 103/mcL Normal 0.0 - 0.7 10^3/mcL AO Workflow SS Eosinophils/100 WBC (Bld) 6.5 % High 0.0 - 6.0 % AO Workflow SS Erythrocyte distribution width (RBC) [Ratio] 17.7 % High 11.5 - 15.5 % AO Workflow SS Estimated Glomerular Filtration Rate 10 ml/min/1.73sqm Invalid Interpretation Code AO Chemistry S Comment on above: Interpretive Data: Stages of Chronic Kidney Disease (CKD) Stage Description eGFR(ml/min/1.73 sq.m.) CKD 1 Normal kidney function or >=90 normal kindney function with possible kidney damage (ex. Proteinuria) CKD 2 Kidney damage with mild loss 60-89 of kidney function CKD 3a Mild to moderate loss of kidney 45-59 function CKD 3b Moderate to severe loss of 30-44 of kindey function CKD 4 Severe loss of kidney function 15-29 CKD 5 Kidney failure <15 Note: (go live 2024) the eGFR calculation was updated to the 2020 CKD-EPI creatinine equation without a race factor to calculate the eGFR results. Glucose [Mass/Vol] 129 mg/dL High 83 - 110 mg/dL AO ADM SS Hematocrit (Bld) [Volume fraction] 32.5 % Low 40.0 - 52.0 % AO Workflow SS Hemoglobin (Bld) [Mass/Vol] 10.5 G/dL Low 13.0 - 17.5 G/dL AO Workflow SS Lymphocytes (Bld) [#/Vol] 1.1 103/mcL Normal 0.9 - 4.3 10^3/mcL AO Workflow SS Lymphocytes/100 WBC (Bld) 15.4 % Low 20.0 - 40.0 % AO Workflow SS MCH (RBC) [Entitic mass] 29.7 pg Normal 27.0 - 33.0 pg AO Workflow SS MCHC 32.2 G/dL Normal 32.0 - 36.0 G/dL AO Workflow SS MCV (RBC) [Entitic vol] 92.1 fL Normal 81.0 - 100.0 fL AO Workflow SS Monocytes (Bld) [#/Vol] 0.5 103/mcL Normal 0.1 - 1.4 10^3/mcL AO Workflow SS Monocytes/100 WBC (Bld) 7.6 % Normal 2.0 - 13.0 % AO Workflow SS Neutrophils (Bld) [#/Vol] 4.8 103/mcL Normal 2.3 - 8.1 10^3/mcL AO Workflow SS Neutrophils/100 WBC (Bld) 69.9 % Normal 50.0 - 75.0 % AO Workflow SS Platelet mean volume (Bld) [Entitic vol] 8.5 fL Normal 6.4 - 10.5 fL AO Workflow SS Platelets (Bld) [#/Vol] 191 103/mcL Normal 150 - 450 10^3/mcL AO Workflow SS Potassium [Moles/Vol] 4.2 mmol/L Normal 3.5 - 5.1 mmol/L AO ADM SS RBC (Bld) [#/Vol] 3.53 106/mcL Low 4.50 - 6.0 0 10^6/mcL AO Workflow SS Sodium [Moles/Vol] 139 mmol/L Normal 136 - 145 mmol/L AO ADM SS Urea nitrogen [Mass/Vol] 28 mg/dL High 7 - 18 mg/dL AO ADM SS Urea nitrogen/Creatinine [Mass ratio] 5 ratio Low 7 - 27 ratio AO ADM SS WBC (Bld) [#/Vol] 6.9 103/mcL Normal 4.5 - 10.8 10^3/mcL AO Workflow SS .Auto Diffon 05-21-2025 Basophil, Absolute 0.0 10 3/mcL Normal 0.0-0.3 [facility] Comment on above: Performed By: #### G FR, CMP, A1C, MG, LIPID, TSH, TROPHS #### [address] [address] Basophils/100 WBC (Bld) 0.4 % Normal 0.0-2.5 [facility] Comment on above: Performed By: #### G FR, CMP, A1C, MG, LIPID, TSH, TROPHS #### [address] [address] Eosinophil, Absolute 0.3 10 3/mcL Normal 0.0-0.7 [facility] Comment on above: Performed By: #### G FR, CMP, A1C, MG, LIPID, TSH, TROPHS #### [address] [address] Eosinophils/100 WBC (Bld) 3.4 % Normal 0.0-6.0 [facility] Comment on above: Performed By: #### G FR, CMP, A1C, MG, LIPID, TSH, TROPHS #### [address] [address] Lymphocyte, Absolute 0.7 10 3/mcL Low 0.9-4.3 [facility] Comment on above: Performed By: #### G FR, CMP, A1C, MG, LIPID, TSH, TROPHS #### [address] [address] Lymphocytes/100 WBC (Bld) 9.8 % Low 20.0-40.0 [facility] Comment on above: Performed By: #### G FR, CMP, A1C, MG, LIPID, TSH, TROPHS #### [address] [address] Monocyte, Absolute 0.8 10 3/mcL Normal 0.1-1.4 [facility] Comment on above: Performed By: #### G FR, CMP, A1C, MG, LIPID, TSH, TROPHS #### [address] [address] Monocytes/100 WBC (Bld) 10.3 % Normal 2.0-13.0 [facility] Comment on above: Performed By: #### G FR, CMP, A1C, MG, LIPID, TSH, TROPHS #### [address] [address] Neutrophils/100 WBC (Bld) 76.1 % High 50.0-75.0 [facility] Comment on above: Performed By: #### G FR, CMP, A1C, MG, LIPID, TSH, TROPHS #### [address] [address] .GFRon 12-30-2024 Estimated Glomerular Filtration Rate 7 ml/min/1.73sqm Normal [facility] Comment on above: Result Comment: Stages of Chronic Kidney Disease (CKD) Stage Description eGFR(ml/min/1.73 sq.m.) CKD 1 Normal kidney function or >=90 normal kindney function with possible kidney damage (ex. Proteinuria) CKD 2 Kidney damage with mild loss 60-89 of kidney function CKD 3a Mild to moderate loss of kidney 45-59 function CKD 3b Moderate to severe loss of 30-44 of kindey function CKD 4 Severe loss of kidney function 15-29 CKD 5 Kidney failure <15 Note: (go live 2024) the eGFR calculation was updated to the 2020 CKD-EPI creatinine equation without a race factor to calculate the eGFR results. Performed By: #### G FR, CMP, A1C, MG, LIPID, TSH, TROPHS #### [address] [address] .NEUABSon 12-30-2024 Neutrophil, Absolute 5.7 10 3/mcL Normal 2.3-8.1 [facility] Comment on above: Performed By: #### G FR, CMP, A1C, MG, LIPID, TSH, TROPHS #### [address] [address] BMPon 12-30-2024 BUN/Creatinine Ratio 8.2 ratio Low 10.0-22.0 [facility] Comment on above: Performed By: #### G FR, CMP, A1C, MG, LIPID, TSH, TROPHS #### [address] [address] Calcium [Mass/Vol] 9.0 mg/dL Normal 8.7-10.4 [facility] Comment on above: Performed By: #### G FR, CMP, A1C, MG, LIPID, TSH, TROPHS #### [address] [address] Chloride [Moles/Vol] 98 mmol/L Normal 98-110 [facility] Comment on above: Performed By: #### G FR, CMP, A1C, MG, LIPID, TSH, TROPHS #### [address] [address] CO2 [Moles/Vol] 28 mmol/L Normal 22-32 [facility] Comment on above: Performed By: #### G FR, CMP, A1C, MG, LIPID, TSH, TROPHS #### [address] [address] Creatinine [Mass/Vol] 6.91 mg/dL High 0.60-1.40 [facility] Comment on above: Result Comment: Test ing performed on [employer] analyzer using enzymatic creatinine methodology. Performed By: #### G FR, CMP, A1C, MG, LIPID, TSH, TROPHS #### [address] [address] Electrolyte Balance 11.0 mEq/L Normal 4.0-15.0 [facility] Comment on above: Performed By: #### G FR, CMP, A1C, MG, LIPID, TSH, TROPHS #### [address] [address] Glucose [Mass/Vol] 96 mg/dL Normal 82-115 [facility] Comment on above: Performed By: #### G FR, CMP, A1C, MG, LIPID, TSH, TROPHS #### [address] [address] Potassium [Moles/Vol] 4.6 mmol/L Normal 3.5-5.0 [facility] Comment on above: Performed By: #### G FR, CMP, A1C, MG, LIPID, TSH, TROPHS #### [address] [address] Sodium [Moles/Vol] 137 mmol/L Normal 136-145 [facility] Comment on above: Performed By: #### G FR, CMP, A1C, MG, LIPID, TSH, TROPHS #### [place] [address] Urea nitrogen [Mass/Vol] 57.0 mg/dL High 8.0-22.0 [facility] Comment on above: Performed By: #### G FR, CMP, A1C, MG, LIPID, TSH, TROPHS #### [place] [id number] CBCon 12-30-2024 Erythrocyte distribution width (RBC) [Ratio] 17.0 % High 11.5-15.5 [facility] Comment on above: Performed By: #### G FR, CMP, A1C, MG, LIPID, TSH, TROPHS #### [place] [address] Hematocrit (Bld) [Volume fraction] 29.9 % Low 40.0-52.0 [facility] Comment on above: Performed By: #### G FR, CMP, A1C, MG, LIPID, TSH, TROPHS #### [place] [address] Hgb 9.9 G/dL Low 13.0-17.5 [facility] Comment on above: Performed By: #### G FR, CMP, A1C, MG, LIPID, TSH, TROPHS #### [place] [address] MCH (RBC) [Entitic mass] 30.5 pg Normal 27.0-33.0 [facility] Comment on above: Performed By: #### G FR, CMP, A1C, MG, LIPID, TSH, TROPHS #### [place] [address] MCHC 33.0 G/dL Normal 32.0-36.0 [facility] Comment on above: Performed By: #### G FR, CMP, A1C, MG, LIPID, TSH, TROPHS #### [place] [address] MCV (RBC) [Entitic vol] 92.4 fL Normal 81.0-100.0 [facility] Comment on above: Performed By: #### G FR, CMP, A1C, MG, LIPID, TSH, TROPHS #### [address] [address] Platelet 177 10 3/mcL Normal 150-450 [facility] Comment on above: Performed By: #### G FR, CMP, A1C, MG, LIPID, TSH, TROPHS #### [place] [id number] [place] [id number] Platelet mean volume (Bld) [Entitic vol] 8.7 fL Normal 6.4-10.5 [facility] Comment on above: Performed By: #### G FR, CMP, A1C, MG, LIPID, TSH, TROPHS #### [place] [address] RBC 3.24 10 6/mcL Low 4.50-6.00 [facility] Comment on above: Performed By: #### G FR, CMP, A1C, MG, LIPID, TSH, TROPHS #### [place] [address] WBC 7.4 10 3/mcL Normal 4.5-10.8 [facility] Comment on above: Performed By: #### G FR, CMP, A1C, MG, LIPID, TSH, TROPHS #### [place] [address] LABORATORYOrdered By: SYSTEM SYSTEM on 12-30-2024 Basophils (Bld) [#/Vol] 0.0 103/mcL Normal 0.0 - 0.3 10^3/mcL AH Workflow SS Basophils/100 WBC (Bld) 0.4 % Normal 0.0 - 2.5 % AH Workflow SS Calcium [Mass/Vol] 9.0 mg/dL Normal 8.7 - 10. 4 mg/dL ADM SS Chloride [Moles/Vol] 98 mmol/L Normal 98 - 110 mEq/L AH ADM SS CO2 [Moles/Vol] 28 mmol/L Normal 22 - 32 mEq/L ADM SS Creatinine [Mass/Vol] 6.91 mg/dL High 0.60 - 1.40 mg/dL AH ADM SS Comment on above: Interpretive Data: T esting performed on [employer] analyzer using enzymatic creatinine methodology. Electrolyte Balance 11.0 mEq/L Normal 4.0 - 15 .0 mEq/L ADM SS Eosinophils (Bld) [#/Vol] 0.3 103/mcL Normal 0.0 - 0.7 10^3/mcL AH Workflow SS Eosinophils/100 WBC (Bld) 3.4 % Normal 0.0 - 6.0 % AH Workflow SS Erythrocyte distribution width (RBC) [Ratio] 17.0 % High 11.5 - 15.5 % AH Workflow SS Estimated Glomerular Filtration Rate 7 ml/min/1.73sqm Invalid Interpretation Code ADM SS Comment on above: Interpretive Data: Stages of Chronic Kidney Disease (CKD) Stage Description eGFR(ml/min/1.73 sq.m.) CKD 1 Normal kidney function or >=90 normal kindney function with possible kidney damage (ex. Proteinuria) CKD 2 Kidney damage with mild loss 60-89 of kidney function CKD 3a Mild to moderate loss of kidney 45-59 function CKD 3b Moderate to severe loss of 30-44 of kindey function CKD 4 Severe loss of kidney function 15-29 CKD 5 Kidney failure <15 Note: (go live 2024) the eGFR calculation was updated to the 2020 CKD-EPI creatinine equation without a race factor to calculate the eGFR results. Glucose [Mass/Vol] 96 mg/dL Normal 82 - 115 mg/dL ADM SS Hematocrit (Bld) [Volume fraction] 29.9 % Low 40.0 - 52.0 % Workflow SS Hemoglobin (Bld) [Mass/Vol] 9.9 G/dL Low 13.0 - 17.5 G/dL AH Workflow SS Lymphocytes (Bld) [#/Vol] 0.7 103/mcL Low 0.9 - 4.3 10^3/mcL Workflow SS Lymphocytes/100 WBC (Bld) 9.8 % Low 20.0 - 40.0 % Workflow SS MCH (RBC) [Entitic mass] 30.5 pg Normal 27.0 - 33.0 pg AH Workflow SS MCHC 33.0 G/dL Normal 32.0 - 36.0 G/dL Workflow SS MCV (RBC) [Entitic vol] 92.4 fL Normal 81.0 - 100.0 fL Workflow SS Monocytes (Bld) [#/Vol] 0.8 103/mcL Normal 0.1 - 1.4 10^3/mcL Workflow SS Monocytes/100 WBC (Bld) 10.3 % Normal 2.0 - 13.0 % Workflow SS Neutrophils (Bld) [#/Vol] 5.7 103/mcL Normal 2.3 - 8.1 10^3/mcL Workflow SS Neutrophils/100 WBC (Bld) 76.1 % High 50.0 - 75.0 % Workflow SS Platelet mean volume (Bld) [Entitic vol] 8.7 fL Normal 6.4 - 10.5 fL Workflow SS Platelets (Bld) [#/Vol] 177 103/mcL Normal 150 - 450 10^3/mcL Workflow SS Potassium [Moles/Vol] 4.6 mmol/L Normal 3.5 - 5.0 mEq/L ADM SS PT Coag (PPP) [Time] 12.0 s Normal 9.0 - 14.4 seconds [facility] Comment on above: Interpretive Data: E ffective 02/24/08, Protime results may be affected by some antibiotics (i.e. Ciprofloxacin, Azithromycin, Bactrim) which may potentiate the action of oral anticoagulants, with further increases in Protime/INR. PT International Ratio 1.0 ratio Invalid Interpretation Code [facility] Comment on above: Interpretive Data: Susanna padilla [employer] (CHEST, 1991, [id number]) recommended therapeutic range for oral anticoagulant therapy is: LOW RISK: Prophylaxis of venous thrombosis INR: 2.0-3.0 Treatment of pulmonary embolism 2.0-3.0 Prevention of systemic embolism 2.0-3.0 HIGH RISK: Mechanical prosthetic valves 2.5-3.5 RBC (Bld) [#/Vol] 3.24 106/mcL Low 4.50 - 6.0 0 10^6/mcL Workflow SS Sodium [Moles/Vol] 137 mmol/L Normal 136 - 145 mEq/L ADM SS Urea nitrogen [Mass/Vol] 57.0 mg/dL High 8.0 - 22.0 mg/dL ADM SS Urea nitrogen/Creatinine [Mass ratio] 8.2 ratio Low 10.0 - 22.0 ratio ADM SS WBC (Bld) [#/Vol] 7.4 103/mcL Normal 4.5 - 10.8 10^3/mcL Workflow SS PROon 12-30-2024 INR Coag (PPP) [Relative time] 1.0 {INR} Normal [facility] Comment on above: Result Comment: [employer] (CHEST, 1992, 102:[id number]) recommended therapeutic range for oral anticoagulant therapy is: LOW RISK: Prophylaxis of venous thrombosis INR: 2.0-3.0 Treatment of pulmonary embolism 2.0-3.0 Prevention of systemic embolism 2.0-3.0 HIGH RISK: Mechanical prosthetic valves 2.5-3.5 Performed By: #### G FR, CMP, A1C, MG, LIPID, TSH, TROPHS #### [address] [address] PT Coag (PPP) [Time] 12.0 s Normal 9.0-14.4 [facility] Comment on above: Result Comment: Effe ctive 02/24/08, Protime results may be affected by some antibiotics (i.e. Ciprofloxacin, Azithromycin, Bactrim) which may potentiate the action of oral anticoagulants, with further increases in Protime/INR. Performed By: #### G FR, CMP, A1C, MG, LIPID, TSH, TROPHS #### [address] [address] .Auto Diffon 12-29-2024 Basophil, Absolute 0.1 10 3/mcL Normal 0.0-0.3 [facility] Comment on above: Performed By: #### G FR, CMP, A1C, MG, LIPID, TSH, TROPHS #### [address] [address] Basophils/100 WBC (Bld) 1.1 % Normal 0.0-2.5 [facility] Comment on above: Performed By: #### G FR, CMP, A1C, MG, LIPID, TSH, TROPHS #### [address] [address] Eosinophil, Absolute 0.3 10 3/mcL Normal 0.0-0.7 [facility] Comment on above: Performed By: #### G FR, CMP, A1C, MG, LIPID, TSH, TROPHS #### [address] [address] Eosinophils/100 WBC (Bld) 5.2 % Normal 0.0-6.0 [facility] Comment on above: Performed By: #### G FR, CMP, A1C, MG, LIPID, TSH, TROPHS #### [address] [address] Lymphocyte, Absolute 1.0 10 3/mcL Normal 0.9-4.3 [facility] Comment on above: Performed By: #### G FR, CMP, A1C, MG, LIPID, TSH, TROPHS #### [address] [address] Lymphocytes/100 WBC (Bld) 15.1 % Low 20.0-40.0 [facility] Comment on above: Performed By: #### G FR, CMP, A1C, MG, LIPID, TSH, TROPHS #### [address] [address] Monocyte, Absolute 0.6 10 3/mcL Normal 0.1-1.4 [facility] Comment on above: Performed By: #### G FR, CMP, A1C, MG, LIPID, TSH, TROPHS #### [address] [address] Monocytes/100 WBC (Bld) 9.7 % Normal 2.0-13.0 [facility] Comment on above: Performed By: #### G FR, CMP, A1C, MG, LIPID, TSH, TROPHS #### [address] [address] Neutrophils/100 WBC (Bld) 68.9 % Normal 50.0-75.0 [facility] Comment on above: Performed By: #### G FR, CMP, A1C, MG, LIPID, TSH, TROPHS #### [address] [address] .GFRon 12-29-2024 Estimated Glomerular Filtration Rate 9 ml/min/1.73sqm Normal [facility] Comment on above: Result Comment: Stages of Chronic Kidney Disease (CKD) Stage Description eGFR(ml/min/1.73 sq.m.) CKD 1 Normal kidney function or >=90 normal kindney function with possible kidney damage (ex. Proteinuria) CKD 2 Kidney damage with mild loss 60-89 of kidney function CKD 3a Mild to moderate loss of kidney 45-59 function CKD 3b Moderate to severe loss of 30-44 of kindey function CKD 4 Severe loss of kidney function 15-29 CKD 5 Kidney failure <15 Note: (go live 2024) the eGFR calculation was updated to the 2020 CKD-EPI creatinine equation without a race factor to calculate the eGFR results. Performed By: #### G FR, CMP, A1C, MG, LIPID, TSH, TROPHS #### [address] [address] .NEUABSon 12-29-2024 Neutrophil, Absolute 4.5 10 3/mcL Normal 2.3-8.1 [facility] Comment on above: Performed By: #### G FR, CMP, A1C, MG, LIPID, TSH, TROPHS #### [place] [address] ABO/Rh (Gel)on 12-29-2024 ABO/Rh Interp Negative Invalid Interpretation Code [facility] Comment on above: Performed By: #### G FR, CMP, A1C, MG, LIPID, TSH, TROPHS #### [place] [id number] ABS (Gel)on 12-29-2024 ABSC Interp (Gel) Negative Normal [facility] Comment on above: Performed By: #### G FR, CMP, A1C, MG, LIPID, TSH, TROPHS #### [address] [address] BMPon 12-29-2024 BUN/Creatinine Ratio 7.1 ratio Low 10.0-22.0 [facility] Comment on above: Order Comment: withi n 1/2 hour of admission to CVSICU Performed By: #### G FR, CMP, A1C, MG, LIPID, TSH, TROPHS #### [place] [id number] Calcium [Mass/Vol] 9.0 mg/dL Normal 8.7-10.4 [facility] Comment on above: Order Comment: withi n 1/2 hour of admission to CVSICU Performed By: #### G FR, CMP, A1C, MG, LIPID, TSH, TROPHS #### [place] [id number] Chloride [Moles/Vol] 99 mmol/L Normal 98-110 [facility] Comment on above: Order Comment: withi n 1/2 hour of admission to CVSICU Performed By: #### G FR, CMP, A1C, MG, LIPID, TSH, TROPHS #### [address] [address] CO2 [Moles/Vol] 31 mmol/L Normal 22-32 [facility] Comment on above: Order Comment: withi n 1/2 hour of admission to CVSICU Performed By: #### G FR, CMP, A1C, MG, LIPID, TSH, TROPHS #### [address] [address] Creatinine [Mass/Vol] 6.04 mg/dL High 0.60-1.40 [facility] Comment on above: Order Comment: withi n 1/2 hour of admission to CVSICU Result Comment: Test ing performed on [employer] analyzer using enzymatic creatinine methodology. Performed By: #### G FR, CMP, A1C, MG, LIPID, TSH, TROPHS #### [address] [address] Electrolyte Balance 9.0 mEq/L Normal 4.0-15.0 [facility] Comment on above: Order Comment: withi n 1/2 hour of admission to CVSICU Performed By: #### G FR, CMP, A1C, MG, LIPID, TSH, TROPHS #### [address] [address] Glucose [Mass/Vol] 91 mg/dL Normal 82-115 [facility] Comment on above: Order Comment: withi n 1/2 hour of admission to CVSICU Performed By: #### G FR, CMP, A1C, MG, LIPID, TSH, TROPHS #### [address] [address] Potassium [Moles/Vol] 4.2 mmol/L Normal 3.5-5.0 [facility] Comment on above: Order Comment: withi n 1/2 hour of admission to CVSICU Performed By: #### G FR, CMP, A1C, MG, LIPID, TSH, TROPHS #### [place] [address] Sodium [Moles/Vol] 139 mmol/L Normal 136-145 [facility] Comment on above: Order Comment: withi n 1/2 hour of admission to CVSICU Performed By: #### G FR, CMP, A1C, MG, LIPID, TSH, TROPHS #### [place] [address] Urea nitrogen [Mass/Vol] 43.0 mg/dL High 8.0-22.0 [facility] Comment on above: Order Comment: withi n 1/2 hour of admission to CVSICU Performed By: #### G FR, CMP, A1C, MG, LIPID, TSH, TROPHS #### [place] [address] CBCon 12-29-2024 Erythrocyte distribution width (RBC) [Ratio] 17.3 % High 11.5-15.5 [facility] Comment on above: Order Comment: withi n 1/2 hour of admission to CVSICU Performed By: #### G FR, CMP, A1C, MG, LIPID, TSH, TROPHS #### [place] [address] Hematocrit (Bld) [Volume fraction] 30.5 % Low 40.0-52.0 [facility] Comment on above: Order Comment: withi n 1/2 hour of admission to CVSICU Performed By: #### G FR, CMP, A1C, MG, LIPID, TSH, TROPHS #### [place] [address] Hgb 9.8 G/dL Low 13.0-17.5 [facility] Comment on above: Order Comment: withi n 1/2 hour of admission to CVSICU Performed By: #### G FR, CMP, A1C, MG, LIPID, TSH, TROPHS #### [place] [address] MCH (RBC) [Entitic mass] 29.7 pg Normal 27.0-33.0 [facility] Comment on above: Order Comment: withi n 1/2 hour of admission to CVSICU Performed By: #### G FR, CMP, A1C, MG, LIPID, TSH, TROPHS #### [place] [address] MCHC 32.1 G/dL Normal 32.0-36.0 [facility] Comment on above: Order Comment: withi n 1/2 hour of admission to CVSICU Performed By: #### G FR, CMP, A1C, MG, LIPID, TSH, TROPHS #### [place] [address] MCV (RBC) [Entitic vol] 92.6 fL Normal 81.0-100.0 [facility] Comment on above: Order Comment: withi n 1/2 hour of admission to CVSICU Performed By: #### G FR, CMP, A1C, MG, LIPID, TSH, TROPHS #### [place] [address] Platelet 188 10 3/mcL Normal 150-450 [facility] Comment on above: Order Comment: withi n 1/2 hour of admission to CVSICU Performed By: #### G FR, CMP, A1C, MG, LIPID, TSH, TROPHS #### [place] [address] Platelet mean volume (Bld) [Entitic vol] 8.3 fL Normal 6.4-10.5 [facility] Comment on above: Order Comment: withi n 1/2 hour of admission to CVSICU Performed By: #### G FR, CMP, A1C, MG, LIPID, TSH, TROPHS #### [place] [address] RBC 3.30 10 6/mcL Low 4.50-6.00 [facility] Comment on above: Order Comment: withi n 1/2 hour of admission to CVSICU Performed By: #### G FR, CMP, A1C, MG, LIPID, TSH, TROPHS #### [place] [address] WBC 6.5 10 3/mcL Normal 4.5-10.8 [facility] Comment on above: Order Comment: withi n 1/2 hour of admission to CVSICU Performed By: #### G FR, CMP, A1C, MG, LIPID, TSH, TROPHS #### [place] [address] LABORATORYOrdered By: SYSTEM SYSTEM on 12-29-2024 Basophils (Bld) [#/Vol] 0.1 103/mcL Normal 0.0 - 0.3 10^3/mcL AH Workflow SS Basophils/100 WBC (Bld) 1.1 % Normal 0.0 - 2.5 % AH Workflow SS Calcium [Mass/Vol] 9.0 mg/dL Normal 8.7 - 10. 4 mg/dL AH ADM SS Chloride [Moles/Vol] 99 mmol/L Normal 98 - 110 mEq/L AH ADM SS CO2 [Moles/Vol] 31 mmol/L Normal 22 - 32 mEq/L AH ADM SS Creatinine [Mass/Vol] 6.04 mg/dL High 0.60 - 1.40 mg/dL AH ADM SS Comment on above: Interpretive Data: T esting performed on [employer] CH analyzer using enzymatic creatinine methodology. Electrolyte Balance 9.0 mEq/L Normal 4.0 - 15 .0 mEq/L AH ADM SS Eosinophils (Bld) [#/Vol] 0.3 103/mcL Normal 0.0 - 0.7 10^3/mcL AH Workflow SS Eosinophils/100 WBC (Bld) 5.2 % Normal 0.0 - 6.0 % AH Workflow SS Erythrocyte distribution width (RBC) [Ratio] 17.3 % High 11.5 - 15.5 % AH Workflow SS Estimated Glomerular Filtration Rate 9 ml/min/1.73sqm Invalid Interpretation Code AH ADM SS Comment on above: Interpretive Data: Stages of Chronic Kidney Disease (CKD) Stage Description eGFR(ml/min/1.73 sq.m.) CKD 1 Normal kidney function or >=90 normal kindney function with possible kidney damage (ex. Proteinuria) CKD 2 Kidney damage with mild loss 60-89 of kidney function CKD 3a Mild to moderate loss of kidney 45-59 function CKD 3b Moderate to severe loss of 30-44 of kindey function CKD 4 Severe loss of kidney function 15-29 CKD 5 Kidney failure <15 Note: (go live 2024) the eGFR calculation was updated to the 2020 CKD-EPI creatinine equation without a race factor to calculate the eGFR results. Glucose [Mass/Vol] 91 mg/dL Normal 82 - 115 mg/dL ADM SS Hematocrit (Bld) [Volume fraction] 30.5 % Low 40.0 - 52.0 % AH Workflow SS Hemoglobin (Bld) [Mass/Vol] 9.8 G/dL Low 13.0 - 17.5 G/dL AH Workflow SS Lymphocytes (Bld) [#/Vol] 1.0 103/mcL Normal 0.9 - 4.3 10^3/mcL AH Workflow SS Lymphocytes/100 WBC (Bld) 15.1 % Low 20.0 - 40.0 % AH Workflow SS MCH (RBC) [Entitic mass] 29.7 pg Normal 27.0 - 33.0 pg AH Workflow SS MCHC 32.1 G/dL Normal 32.0 - 36.0 G/dL Workflow SS MCV (RBC) [Entitic vol] 92.6 fL Normal 81.0 - 100.0 fL Workflow SS Monocytes (Bld) [#/Vol] 0.6 103/mcL Normal 0.1 - 1.4 10^3/mcL AH Workflow SS Monocytes/100 WBC (Bld) 9.7 % Normal 2.0 - 13.0 % AH Workflow SS Neutrophils (Bld) [#/Vol] 4.5 103/mcL Normal 2.3 - 8.1 10^3/mcL AH Workflow SS Neutrophils/100 WBC (Bld) 68.9 % Normal 50.0 - 75.0 % AH Workflow SS Platelet mean volume (Bld) [Entitic vol] 8.3 fL Normal 6.4 - 10.5 fL AH Workflow SS Platelets (Bld) [#/Vol] 188 103/mcL Normal 150 - 450 10^3/mcL AH Workflow SS Potassium [Moles/Vol] 4.2 mmol/L Normal 3.5 - 5.0 mEq/L AH ADM SS RBC (Bld) [#/Vol] 3.30 106/mcL Low 4.50 - 6.0 0 10^6/mcL AH Workflow SS Sodium [Moles/Vol] 139 mmol/L Normal 136 - 145 mEq/L ADM SS Urea nitrogen [Mass/Vol] 43.0 mg/dL High 8.0 - 22.0 mg/dL AH ADM SS Urea nitrogen/Creatinine [Mass ratio] 7.1 ratio Low 10.0 - 22.0 ratio AH ADM SS WBC (Bld) [#/Vol] 6.5 103/mcL Normal 4.5 - 10.8 10^3/mcL AH Workflow SS LABORATORYOrdered By: Gilmer Meier on 12-29-2024 ABO and Rh group Nom (Bld) Blood group O Rh(D) negative Invalid Interpretation Code AH BB Auto SS Blood group antibody screen Ql Negative ABSC (12/29/24 7:26 AM) Normal AH BB Auto SS .Auto Diffon 12-22-2024 Basophil, Absolute 0.0 10 3/mcL Normal 0.0-0.3 [facility] Comment on above: Performed By: #### B MP, TROPHS, ANEU, GFR, MDW, CBC, ADIFF #### [address] [address] Basophils/100 WBC (Bld) 0.7 % Normal 0.0-2.5 [facility] Comment on above: Performed By: #### B MP, TROPHS, ANEU, GFR, MDW, CBC, ADIFF #### [address] [address] Eosinophil, Absolute 0.3 10 3/mcL Normal 0.0-0.7 [facility] Comment on above: Performed By: #### B MP, TROPHS, ANEU, GFR, MDW, CBC, ADIFF #### [address] [address] Eosinophils/100 WBC (Bld) 5.1 % Normal 0.0-6.0 [facility] Comment on above: Performed By: #### B MP, TROPHS, ANEU, GFR, MDW, CBC, ADIFF #### [address] [address] Lymphocyte, Absolute 1.1 10 3/mcL Normal 0.9-4.3 [facility] Comment on above: Performed By: #### B MP, TROPHS, ANEU, GFR, MDW, CBC, ADIFF #### [address] [address] Lymphocytes/100 WBC (Bld) 16.1 % Low 20.0-40.0 [facility] Comment on above: Performed By: #### B MP, TROPHS, ANEU, GFR, MDW, CBC, ADIFF #### [address] [address] Monocyte, Absolute 0.7 10 3/mcL Normal 0.1-1.4 [facility] Comment on above: Performed By: #### B MP, TROPHS, ANEU, GFR, MDW, CBC, ADIFF #### [address] [address] Monocytes/100 WBC (Bld) 10.3 % Normal 2.0-13.0 [facility] Comment on above: Performed By: #### B MP, TROPHS, ANEU, GFR, MDW, CBC, ADIFF #### [address] [address] Neutrophils/100 WBC (Bld) 67.8 % Normal 50.0-75.0 [facility] Comment on above: Performed By: #### B MP, TROPHS, ANEU, GFR, MDW, CBC, ADIFF #### [address] [address] .GFRon 12-22-2024 Estimated Glomerular Filtration Rate 9 ml/min/1.73sqm Normal [facility] Comment on above: Result Comment: Stages of Chronic Kidney Disease (CKD) Stage Description eGFR(ml/min/1.73 sq.m.) CKD 1 Normal kidney function or >=90 normal kindney function with possible kidney damage (ex. Proteinuria) CKD 2 Kidney damage with mild loss 60-89 of kidney function CKD 3a Mild to moderate loss of kidney 45-59 function CKD 3b Moderate to severe loss of 30-44 of kindey function CKD 4 Severe loss of kidney function 15-29 CKD 5 Kidney failure <15 Note: (go live 2024) the eGFR calculation was updated to the 2020 CKD-EPI creatinine equation without a race factor to calculate the eGFR results. Performed By: #### B MP, TROPHS, ANEU, GFR, MDW, CBC, ADIFF #### [address] [address] .NEUABSon 12-22-2024 Neutrophil, Absolute 4.5 10 3/mcL Normal 2.3-8.1 [facility] Comment on above: Performed By: #### B MP, TROPHS, ANEU, GFR, MDW, CBC, ADIFF #### [address] [address] BMPon 12-22-2024 BUN/Creatinine Ratio 7 ratio Normal 7-27 [facility] Comment on above: Performed By: #### B MP, TROPHS, ANEU, GFR, MDW, CBC, ADIFF #### [address] [address] Calcium [Mass/Vol] 9.8 mg/dL Normal 8.4-10.2 [facility] Comment on above: Performed By: #### B MP, TROPHS, ANEU, GFR, MDW, CBC, ADIFF #### [address] [address] Chloride [Moles/Vol] 97 mmol/L Low 98-107 [facility] Comment on above: Performed By: #### B MP, TROPHS, ANEU, GFR, MDW, CBC, ADIFF #### [address] [address] CO2 [Moles/Vol] 31 mmol/L Normal 23-31 [facility] Comment on above: Performed By: #### B MP, TROPHS, ANEU, GFR, MDW, CBC, ADIFF #### [address] [address] Creatinine [Mass/Vol] 5.81 mg/dL High 0.67-1.17 [facility] Comment on above: Performed By: #### B MP, TROPHS, ANEU, GFR, MDW, CBC, ADIFF #### [place] [id number] Electrolyte Balance 8.0 mEq/L Normal 4.0-15.0 [facility] Comment on above: Performed By: #### B MP, TROPHS, ANEU, GFR, MDW, CBC, ADIFF #### [address] [address] Glucose [Mass/Vol] 104 mg/dL Normal 83-110 [facility] Comment on above: Performed By: #### B MP, TROPHS, ANEU, GFR, MDW, CBC, ADIFF #### [address] [address] Potassium [Moles/Vol] 4.5 mmol/L Normal 3.5-5.1 [facility] Comment on above: Performed By: #### B MP, TROPHS, ANEU, GFR, MDW, CBC, ADIFF #### [address] [address] Sodium [Moles/Vol] 136 mmol/L Normal 136-145 [facility] Comment on above: Performed By: #### B MP, TROPHS, ANEU, GFR, MDW, CBC, ADIFF #### [address] [address] Urea nitrogen [Mass/Vol] 38 mg/dL High 7-18 [facility] Comment on above: Performed By: #### B MP, TROPHS, ANEU, GFR, MDW, CBC, ADIFF #### [address] [address] CBCon 12-22-2024 Erythrocyte distribution width (RBC) [Ratio] 18.0 % High 11.5-15.5 [facility] Comment on above: Performed By: #### B MP, TROPHS, ANEU, GFR, MDW, CBC, ADIFF #### [address] [address] Hematocrit (Bld) [Volume fraction] 33.7 % Low 40.0-52.0 [facility] Comment on above: Performed By: #### B MP, TROPHS, ANEU, GFR, MDW, CBC, ADIFF #### [address] [address] Hgb 10.9 G/dL Low 13.0-17.5 [facility] Comment on above: Performed By: #### B MP, TROPHS, ANEU, GFR, MDW, CBC, ADIFF #### [address] [address] MCH (RBC) [Entitic mass] 30.5 pg Normal 27.0-33.0 [facility] Comment on above: Performed By: #### B MP, TROPHS, ANEU, GFR, MDW, CBC, ADIFF #### [address] [address] MCHC 32.4 G/dL Normal 32.0-36.0 [facility] Comment on above: Performed By: #### B MP, TROPHS, ANEU, GFR, MDW, CBC, ADIFF #### [address] [address] MCV (RBC) [Entitic vol] 94.0 fL Normal 81.0-100.0 [facility] Comment on above: Performed By: #### B MP, TROPHS, ANEU, GFR, MDW, CBC, ADIFF #### [address] [address] Platelet 171 10 3/mcL Normal 150-450 [facility] Comment on above: Performed By: #### B MP, TROPHS, ANEU, GFR, MDW, CBC, ADIFF #### [address] [address] Platelet mean volume (Bld) [Entitic vol] 8.2 fL Normal 6.4-10.5 [facility] Comment on above: Performed By: #### B MP, TROPHS, ANEU, GFR, MDW, CBC, ADIFF #### [address] [address] RBC 3.59 10 6/mcL Low 4.50-6.00 [facility] Comment on above: Performed By: #### B MP, TROPHS, ANEU, GFR, MDW, CBC, ADIFF #### [address] [address] WBC 6.6 10 3/mcL Normal 4.5-10.8 [facility] Comment on above: Performed By: #### B MP, TROPHS, ANEU, GFR, MDW, CBC, ADIFF #### [place] [address] LABORATORYOrdered By: SYSTEM SYSTEM on 12-22-2024 Basophils (Bld) [#/Vol] 0.0 103/mcL Normal 0.0 - 0.3 10^3/mcL AO Workflow SS Basophils/100 WBC (Bld) 0.7 % Normal 0.0 - 2.5 % AO Workflow SS Calcium [Mass/Vol] 9.8 mg/dL Normal 8.4 - 10. 2 mg/dL AO ADM SS Chloride [Moles/Vol] 97 mmol/L Low 98 - 107 mmol/L AO ADM SS CO2 [Moles/Vol] 31 mmol/L Normal 23 - 31 mmol/L AO ADM SS Creatinine [Mass/Vol] 5.81 mg/dL High 0.67 - 1.17 mg/dL AO ADM SS Electrolyte Balance 8.0 mEq/L Normal 4.0 - 15 .0 mEq/L AO ADM SS Eosinophil, Absolute 0.3 103/mcL Normal 0.0 - 0.7 10^3/mcL AO Workflow SS Eosinophils/100 WBC (Bld) 5.1 % Normal 0.0 - 6.0 % AO Workflow SS Erythrocyte distribution width (RBC) [Ratio] 18.0 % High 11.5 - 15.5 % AO Workflow SS Estimated Glomerular Filtration Rate 9 ml/min/1.73sqm Invalid Interpretation Code AO Chemistry S Comment on above: Interpretive Data: Stages of Chronic Kidney Disease (CKD) Stage Description eGFR(ml/min/1.73 sq.m.) CKD 1 Normal kidney function or >=90 normal kindney function with possible kidney damage (ex. Proteinuria) CKD 2 Kidney damage with mild loss 60-89 of kidney function CKD 3a Mild to moderate loss of kidney 45-59 function CKD 3b Moderate to severe loss of 30-44 of kindey function CKD 4 Severe loss of kidney function 15-29 CKD 5 Kidney failure <15 Note: (go live 2024) the eGFR calculation was updated to the 2020 CKD-EPI creatinine equation without a race factor to calculate the eGFR results. Glucose [Mass/Vol] 104 mg/dL Normal 83 - 110 mg/dL AO ADM SS Hematocrit (Bld) [Volume fraction] 33.7 % Low 40.0 - 52.0 % AO Workflow SS Hemoglobin (Bld) [Mass/Vol] 10.9 G/dL Low 13.0 - 17.5 G/dL AO Workflow SS Lymphocytes (Bld) [#/Vol] 1.1 103/mcL Normal 0.9 - 4.3 10^3/mcL AO Workflow SS Lymphocytes/100 WBC (Bld) 16.1 % Low 20.0 - 40.0 % AO Workflow SS MCH (RBC) [Entitic mass] 30.5 pg Normal 27.0 - 33.0 pg AO Workflow SS MCHC 32.4 G/dL Normal 32.0 - 36.0 G/dL AO Workflow SS MCV (RBC) [Entitic vol] 94.0 fL Normal 81.0 - 100.0 fL AO Workflow SS Monocytes (Bld) [#/Vol] 0.7 103/mcL Normal 0.1 - 1.4 10^3/mcL AO Workflow SS Monocytes/100 WBC (Bld) 10.3 % Normal 2.0 - 13.0 % AO Workflow SS Natriuretic peptide.B prohormone N-Terminal [Mass/Vol] pg/mL High 0 - 450 pg/mL AO ADM SS Comment on above: Interpretive Data: N T-proBNP results of less than 300 pg/mL effectively rules out acute congestive heart failure with 99% negative predictive value. Neutrophils (Bld) [#/Vol] 4.5 103/mcL Normal 2.3 - 8.1 10^3/mcL AO Workflow SS Neutrophils/100 WBC (Bld) 67.8 % Normal 50.0 - 75.0 % AO Workflow SS Platelet mean volume (Bld) [Entitic vol] 8.2 fL Normal 6.4 - 10.5 fL AO Workflow SS Platelets (Bld) [#/Vol] 171 103/mcL Normal 150 - 450 10^3/mcL AO Workflow SS Potassium [Moles/Vol] 4.5 mmol/L Normal 3.5 - 5.1 mmol/L AO ADM SS RBC (Bld) [#/Vol] 3.59 106/mcL Low 4.50 - 6.0 0 10^6/mcL AO Workflow SS Sodium [Moles/Vol] 136 mmol/L Normal 136 - 145 mmol/L AO ADM SS Urea nitrogen [Mass/Vol] 38 mg/dL High 7 - 18 mg/dL AO ADM SS Urea nitrogen/Creatinine [Mass ratio] 7 ratio Normal 7 - 27 ratio AO ADM SS WBC (Bld) [#/Vol] 6.6 103/mcL Normal 4.5 - 10.8 10^3/mcL AO Workflow SS PBNPon 12-22-2024 N-Terminal proBNP >85786 High 0-450 [facility] Comment on above: Result Comment: NT-p roBNP results of less than 300 pg/mL effectively rules out acute congestive heart failure with 99% negative predictive value. Performed By: #### B MP, TROPHS, ANEU, GFR, MDW, CBC, ADIFF #### [facility] [address] [place], [place] [address] Pulmonary Visit Reporton Pulmonary Visit Report [facility] [place] [address] [place] [address]. [address] [place] [address] OFFICE VISIT Date of Service: 12/17/24 MR#: [id number] Acct: [id number] Name: LUIS MANUEL DURAN Jr. Rep #: [id number] : 1940 Provider: KRYSTINA Callahan Age/Sex: 84/M [place] [facility] Status: Signed Assessment and Plan Assessment and Plan (1) Cough: Status: Acute Qualifiers: Cough type: chronic Qualified Code(s): R05.3 - Chronic cough Plan: Improving but not optimized. Escalating therapy to include Mucinex 1200 mg ER dose twice daily. He has an Acapella at home I have encouraged him to use it 10 puffs 3 times daily. He conveys un derstanding. Return to the office in 3 months to evaluate his response to this change. I have explained that this is called pulmonary toileting and that to prevent him from having copious amounts of sputum causing nausea and emesis we should try to keep the airways clean by performing these maintenance exercises multiple times daily. His reports that Arnuity was $400 for 3-month supply. They are concerned about the cost. NIOX at the last office visit was 44, indicating that the patient did have some inflammation that would respond to steroids. Today's repeat NIOX was 25, indicating improvement. This still is in the [place] zone so he may benefit from additional changes to maximize his therapy. I have encouraged him to continue Arnuity until we get symptoms under control and then we can determine if some of these medications can be held intermittently throughout the year depending on triggers. (2) Postnasal drip: Status: Chronic Plan: Continue Flonase. Orders: Orders NIOX Today R05.3 - Chronic cough Plan Details Additional Comments: This note was generated with [employer] dictation software. It may contain incorrect words, spelling, and punctuation that were not noted in checking the note before signing. Follow Up: 3 Months ([facility]) HPI 8 WK FU Chief Complaint: Response to medication HPI Comments Details: This patient presents to the office today for follow-up of his COPD. He is ambulatory, currently on room air and accompanied today by his . He has not recently been seen in the ED or urgent care for any respiratory illness. He is not required any antibiotics or prednisone for any breathing problems. He is compliant with use of Arnuity 1 puff daily. He does report rinsing his mouth out after each use. He denies any medication side effect such as sore throat or thrush. He is also compliant with Flonase daily. He has not recently been utilizing the albuterol. He does have shortness of breath on exertion. He continues to have a cough that is productive of clear-colored sputum. In the morning, the cough can be productive of copious amounts of sputum. At times this can cause him to become nauseous and vomit. He also reports occasional wheezing. He denies any chest tightness, chest pain or palpitations. He has not had any fever, chills or body aches. Since last office visit he has had coronary artery stents placed. He is supposed to have a valve replacement in the near future. 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 Accompanied by: Allergies lisinopril Adverse Reaction (Severe, Verified 12/17/24 08:59) Other Medications ???Medication ???Instructions ???Recorded ???Confirmed ???Type aspirin 81 mg tablet,delayed 81 mg PO DAILY heart health 12/17/24 History release (Adult Low Dose Aspirin) nitroglycerin 0.4 mg sublingual 0.4 mg sublingual X1 PRN CHEST SAMMY N 01/12/20 12/17/24 History tablet atorvastatin 40 mg tablet 40 mg PO QHS cholesterol 11/24/20 12/17/24 History metoprolol succinate 25 mg 25 mg PO DAILY blood pressure 12/1012/17/24 History tablet,extended release 24 hr calcium acetate(phosphat bind) 667 667 mg PO TIDCM supplement 02/1612/17/24 History mg capsule albuterol sulfate 90 mcg/actuation 2 puff inhalation Q4 PRN wheezin g 10/01/24 12/17/24 History aerosol inhaler clopidogrel 75 mg tablet 75 mg PO QDAY 10/01/24 12/17/24 Hi story finasteride 5 mg tablet 5 mg PO .QOD prostate 10/01/2404/05 History fluticasone propionate 50 2 spray intranasal DAILY #16 grams 10/01/24 12/17/24 Rx mcg/actuation nasal spray,suspension isosorbide mononitrate 3 (more content not included)... Normal [facility] CT ANGIOGRAPHY TAVR PLANNING on 11-27-2024 CT ANGIOGRAPHY TAVR PLANNING ORIGINAL EXAMINATION: 1. CTA HEART WITH IV CONTRAST 2. CTA CHEST WITH IV CONTRAST 3. CTA ABDOMEN & PELVIS WITH IV CONTRAST TECHNIQUE: 1. Noncontrast CT of the heart was obtained for calcium scoring (if performed). 2. CTA heart with IV contrast performed using retrospective ECG gating from the superior mediastinum to about 1 cm above the AV to the diaphragm. 3. CTA chest/abdomen/pelvis with IV contrast performed. 4. Aortic root measurements performed at 35% RR interval. Automated exposure control, iterative reconstruction, and/or weight based adjustment of the mA/kV was utilized to reduce the radiation dose to as low as reasonably achievable. Multiplanar and 3D reconstructions were created and reviewed on a separate workstation. COMPLICATIONS: None ACQUISITION HR (bpm): 78, Regular TECHNICAL QUALITY: Acceptable LIMITATIONS: None Lumen diameter measured as the narrowest point of the artery. STENOSIS: Normal: 0% stenosis Minimal: <25% stenosis Mild: 25-49% Moderate: 50-69% Severe: >=70% Abbreviations: LM: left main, RCA: right coronary artery, HR: heart rate, PA: pulmonary artery, Asc: ascending, Ao: Aorta, STJ: sinotubular junction, SoV: sinuses of Valsalva, LVOT: left ventricular outflow tract; Ailyn: diameter; Ht: height; NC: non-coronary; ABD: abdominal; AV: aortic valve; MV: mitral valve; DAWSON: common iliac artery; EIA: external iliac artery; LINE PILOT: common femoral artery Abbreviations: LM: left main, RCA: right coronary artery, HR: heart rate, PA: pulmonary artery, Asc: ascending, Ao: Aorta, STJ: sinotubular junction, SoV: sinuses of Valsalva, LVOT: left ventricular outflow tract; Ailyn: diameter; Ht: height; NC: non-coronary; ABD: abdominal; AV: aortic valve; MV: mitral valve; DAWSON: common iliac artery; EIA: external iliac artery; LINE PILOT: common femoral artery COMPARISON: None HISTORY: ORDERING SYSTEM PROVIDED HISTORY: Reason for Exam: SEVERE AORTIC STENOSIS sob on exertion FINDINGS: PRE-TAVR VASCULAR: Unless specified, all measurements are in mm. SoV Diameters RT: 34.8 NC: 33.9 LT: 34.5 3-cusp angulation (degrees): GIRON: 4.6, CAU: 23.7 Asc Ao Ailyn: 39.9 (@ 4 cm distal to annulus) STJ Ailyn: 37.4 SoV Ht: 23.4 LVOT Ailyn: 29.9 ANNULUS Diameter: 34.3 x 22.2 Area (mm^2): 586.9 Perimeter: 90.9 Height RCA: 13.5 Height LM: 26.6 ABD Ao Dmin: 14.0 RIGHT Dmin: DAWSON: 10.1 EIA: 8.6 LINE PILOT: 6.9 LEFT Dmin: DAWSON: 10.3 EIA: 8.0 LINE PILOT: 7.6 AORTIC VALVE Calcium Score: 9706 Calcium Vol (mm^3): 6334.1 Cusp #: Tricuspid Cusp thickening: Mild thickening. CALCIUM Cusp: Moderate calcifications of the non coronary cusps. No severely calcified cusp which may obstruct coronary ostia. Annulus: Mild Distribution: Asymmetric without extension to LVOT CORONARY DOMINANCE: Right ANOMALIES: None. LM gives rise to the LAD and LCx. CALCIUM: Severe GRAFTS: Coronary stenting NON-CORONARY HEART: Mild cardiomegaly. MITRAL VALVE THICKENING: Mild thickening. CALCIFICATION: Minimal PERICARDIUM: Contour preserved. EFFUSION: None, trace pericardial fluid anteriorly THICKENING: None. CALCIFICATION: None MAIN PA: Borderline dilated measuring 3.0 cm. No embolus centrally. THORACIC Ao ASCENDING: Diameter: Non-aneurysmal Calcified plaque: Mild Tortuosity: None ARCH: Branches: 3-vessel Diameter: Non-aneurysmal Calcified plaque: Mild Tortuosity: Minimal The right vertebral artery is not well visualized, possibly secondary to diminutive and non dominant nature. The left vertebral artery appears robust. DESCENDING: Diameter: Non-aneurysmal Calcified plaque: Mild Tortuosity: None ABD Ao SUPRARENAL Diameter: Non-aneurysmal Calcified plaque: Mild Tortuosity: Moderate INFRARENAL Diameter: Non-aneurysmal Calcified plaque: Mild Tortuosity: Mild Celiac: Severe stenosis at the ostium secondary to mixed calcified and noncalcified plaque. SMA: Mild calcified plaque results in no significant stenosis. ROB: Mild calcified plaque results in no significant stenosis. RIGHT Renal: Mild calcified plaque at the ostium results in no significant stenosis. Single right renal artery which originates anteriorly at the level of the SMA. LEFT Renal: Predominantly calcified plaque results in mild stenosis at the ostium. Single renal artery. RIGHT DAWSON Diameter: Non-aneurysmal Calcified plaque: Mild Tortuosity: None EIA Diameter: Non-aneurysmal Calcified plaque: Mild Tortuosity: Mild LINE PILOT Diameter: Non-aneurysmal Calcified plaque: Mild Bifurcation: Below femoral head LEFT DAWSON Diameter: Non-aneurysmal Calcified plaque: Mild Tortuosity: Moderate EIA Diameter: Non-aneurysmal (more content not included)... Normal [facility] MGon 11-19-2024 Magnesium [Mass/Vol] 2.1 mg/dL Normal 1.6-2.4 [facility] Comment on above: Performed By: #### G FR, CMP, A1C, MG, LIPID, TSH, TROPHS #### [facility] [address] [place] [address] .Auto Diffon 11-18-2024 Basophil, Absolute 0.0 10 3/mcL Normal 0.0-0.3 [facility] Comment on above: Performed By: #### G FR, CMP, A1C, MG, LIPID, TSH, TROPHS #### [address] [address] Basophils/100 WBC (Bld) 0.8 % Normal 0.0-2.5 [facility] Comment on above: Performed By: #### G FR, CMP, A1C, MG, LIPID, TSH, TROPHS #### [address] [address] Eosinophil, Absolute 0.4 10 3/mcL Normal 0.0-0.7 [facility] Comment on above: Performed By: #### G FR, CMP, A1C, MG, LIPID, TSH, TROPHS #### [address] [address] Eosinophils/100 WBC (Bld) 6.5 % High 0.0-6.0 [facility] Comment on above: Performed By: #### G FR, CMP, A1C, MG, LIPID, TSH, TROPHS #### [address] [address] Lymphocyte, Absolute 1.4 10 3/mcL Normal 0.9-4.3 [facility] Comment on above: Performed By: #### G FR, CMP, A1C, MG, LIPID, TSH, TROPHS #### [address] [address] Lymphocytes/100 WBC (Bld) 22.2 % Normal 20.0-40.0 [facility] Comment on above: Performed By: #### G FR, CMP, A1C, MG, LIPID, TSH, TROPHS #### [address] [address] Monocyte, Absolute 0.7 10 3/mcL Normal 0.1-1.4 [facility] Comment on above: Performed By: #### G FR, CMP, A1C, MG, LIPID, TSH, TROPHS #### [address] [address] Monocytes/100 WBC (Bld) 10.8 % Normal 2.0-13.0 [facility] Comment on above: Performed By: #### G FR, CMP, A1C, MG, LIPID, TSH, TROPHS #### [address] [address] Neutrophils/100 WBC (Bld) 59.7 % Normal 50.0-75.0 [facility] Comment on above: Performed By: #### G FR, CMP, A1C, MG, LIPID, TSH, TROPHS #### [address] [address] .GFRon 11-18-2024 Estimated Glomerular Filtration Rate 7 ml/min/1.73sqm Normal [facility] Comment on above: Result Comment: Stages of Chronic Kidney Disease (CKD) Stage Description eGFR(ml/min/1.73 sq.m.) CKD 1 Normal kidney function or >=90 normal kindney function with possible kidney damage (ex. Proteinuria) CKD 2 Kidney damage with mild loss 60-89 of kidney function CKD 3a Mild to moderate loss of kidney 45-59 function CKD 3b Moderate to severe loss of 30-44 of kindey function CKD 4 Severe loss of kidney function 15-29 CKD 5 Kidney failure <15 Note: (go live 2024) the eGFR calculation was updated to the 2020 CKD-EPI creatinine equation without a race factor to calculate the eGFR results. Performed By: #### G FR, CMP, A1C, MG, LIPID, TSH, TROPHS #### [address] [address] .NEUABSon 11-18-2024 Neutrophil, Absolute 3.7 10 3/mcL Normal 2.3-8.1 [facility] Comment on above: Performed By: #### G FR, CMP, A1C, MG, LIPID, TSH, TROPHS #### [address] [address] BMPon 11-18-2024 BUN/Creatinine Ratio 7.3 ratio Low 10.0-22.0 [facility] Comment on above: Performed By: #### G FR, CMP, A1C, MG, LIPID, TSH, TROPHS #### [address] [address] Calcium [Mass/Vol] 9.1 mg/dL Normal 8.7-10.4 [facility] Comment on above: Performed By: #### G FR, CMP, A1C, MG, LIPID, TSH, TROPHS #### [address] [address] Chloride [Moles/Vol] 97 mmol/L Low 98-110 [facility] Comment on above: Performed By: #### G FR, CMP, A1C, MG, LIPID, TSH, TROPHS #### [address] [address] CO2 [Moles/Vol] 29 mmol/L Normal 22-32 [facility] Comment on above: Performed By: #### G FR, CMP, A1C, MG, LIPID, TSH, TROPHS #### [address] [address] Creatinine [Mass/Vol] 7.41 mg/dL High 0.60-1.40 [facility] Comment on above: Result Comment: Test ing performed on [employer] analyzer using enzymatic creatinine methodology. Performed By: #### G FR, CMP, A1C, MG, LIPID, TSH, TROPHS #### [address] [address] Electrolyte Balance 10.0 mEq/L Normal 4.0-15.0 [facility] MAIN Comment on above: Performed By: #### G FR, CMP, A1C, MG, LIPID, TSH, TROPHS #### [address] [address] Glucose [Mass/Vol] 87 mg/dL Normal 82-115 [facility]IN Comment on above: Performed By: #### G FR, CMP, A1C, MG, LIPID, TSH, TROPHS #### [address] [address] Potassium [Moles/Vol] 4.4 mmol/L Normal 3.5-5.0 [facility] MAIN Comment on above: Performed By: #### G FR, CMP, A1C, MG, LIPID, TSH, TROPHS #### [address] [address] Sodium [Moles/Vol] 136 mmol/L Normal 136-145 [facility] Comment on above: Performed By: #### G FR, CMP, A1C, MG, LIPID, TSH, TROPHS #### [place] [address] Urea nitrogen [Mass/Vol] 54.0 mg/dL High 8.0-22.0 [facility] MAIN Comment on above: Performed By: #### G FR, CMP, A1C, MG, LIPID, TSH, TROPHS #### [place] [address] CBCon 11-18-2024 Erythrocyte distribution width (RBC) [Ratio] 18.7 % High 11.5-15.5 [facility] MAIN Comment on above: Performed By: #### G FR, CMP, A1C, MG, LIPID, TSH, TROPHS #### [place] [address] Hematocrit (Bld) [Volume fraction] 29.5 % Low 40.0-52.0 [facility] MAIN Comment on above: Performed By: #### G FR, CMP, A1C, MG, LIPID, TSH, TROPHS #### [place] [address] Hgb 9.7 G/dL Low 13.0-17.5 [facility] MAIN Comment on above: Performed By: #### G FR, CMP, A1C, MG, LIPID, TSH, TROPHS #### [place] [address] MCH (RBC) [Entitic mass] 30.7 pg Normal 27.0-33.0 [facility] MAIN Comment on above: Performed By: #### G FR, CMP, A1C, MG, LIPID, TSH, TROPHS #### [place] [address] MCHC 32.8 G/dL Normal 32.0-36.0 [facility] MAIN Comment on above: Performed By: #### G FR, CMP, A1C, MG, LIPID, TSH, TROPHS #### [place] [address] MCV (RBC) [Entitic vol] 93.6 fL Normal 81.0-100.0 [facility] MAIN Comment on above: Performed By: #### G FR, CMP, A1C, MG, LIPID, TSH, TROPHS #### [facility] [address] [place] [address] Platelet 207 10 3/mcL Normal 150-450 [facility] MAIN Comment on above: Performed By: #### G FR, CMP, A1C, MG, LIPID, TSH, TROPHS #### [facility] [address] [place] [id number] Platelet mean volume (Bld) [Entitic vol] 7.7 fL Normal 6.4-10.5 [facility] MAIN Comment on above: Performed By: #### G FR, CMP, A1C, MG, LIPID, TSH, TROPHS #### [facility] [address] [place] [address] RBC 3.15 10 6/mcL Low 4.50-6.00 [facility] MAIN Comment on above: Performed By: #### G FR, CMP, A1C, MG, LIPID, TSH, TROPHS #### [place] [id number] [address] [place] [address] WBC 6.2 10 3/mcL Normal 4.5-10.8 [facility] MAIN Comment on above: Performed By: #### G FR, CMP, A1C, MG, LIPID, TSH, TROPHS #### [address] [address] LABORATORYOrdered By: SYSTEM SYSTEM on 11-18-2024 Basophils (Bld) [#/Vol] 0.0 103/mcL Normal 0.0 - 0.3 10^3/mcL AH Workflow SS Basophils/100 WBC (Bld) 0.8 % Normal 0.0 - 2.5 % Workflow SS Calcium [Mass/Vol] 9.1 mg/dL Normal 8.7 - 10. 4 mg/dL ADM SS Chloride [Moles/Vol] 97 mmol/L Low 98 - 110 mEq/L ADM SS CO2 [Moles/Vol] 29 mmol/L Normal 22 - 32 mEq/L ADM SS Creatinine [Mass/Vol] 7.41 mg/dL High 0.60 - 1.40 mg/dL ADM SS Comment on above: Interpretive Data: T esting performed on [employer] CH analyzer using enzymatic creatinine methodology. Electrolyte Balance 10.0 mEq/L Normal 4.0 - 15 .0 mEq/L ADM SS Eosinophils (Bld) [#/Vol] 0.4 103/mcL Normal 0.0 - 0.7 10^3/mcL Workflow SS Eosinophils/100 WBC (Bld) 6.5 % High 0.0 - 6.0 % Workflow SS Erythrocyte distribution width (RBC) [Ratio] 18.7 % High 11.5 - 15.5 % Workflow SS Estimated Glomerular Filtration Rate 7 ml/min/1.73sqm Invalid Interpretation Code ADM SS Comment on above: Interpretive Data: Stages of Chronic Kidney Disease (CKD) Stage Description eGFR(ml/min/1.73 sq.m.) CKD 1 Normal kidney function or >=90 normal kindney function with possible kidney damage (ex. Proteinuria) CKD 2 Kidney damage with mild loss 60-89 of kidney function CKD 3a Mild to moderate loss of kidney 45-59 function CKD 3b Moderate to severe loss of 30-44 of kindey function CKD 4 Severe loss of kidney function 15-29 CKD 5 Kidney failure <15 Note: (go live 2024) the eGFR calculation was updated to the 2020 CKD-EPI creatinine equation without a race factor to calculate the eGFR results. Glucose [Mass/Vol] 87 mg/dL Normal 82 - 115 mg/dL ADM SS Hematocrit (Bld) [Volume fraction] 29.5 % Low 40.0 - 52.0 % Workflow SS Hemoglobin (Bld) [Mass/Vol] 9.7 G/dL Low 13.0 - 17.5 G/dL Workflow SS Lymphocytes (Bld) [#/Vol] 1.4 103/mcL Normal 0.9 - 4.3 10^3/mcL Workflow SS Lymphocytes/100 WBC (Bld) 22.2 % Normal 20.0 - 40.0 % Workflow SS Magnesium [Mass/Vol] 2.8 mg/dL High 1.6 - 2.4 mg/dL ADM SS MCH (RBC) [Entitic mass] 30.7 pg Normal 27.0 - 33.0 pg Workflow SS MCHC 32.8 G/dL Normal 32.0 - 36.0 G/dL Workflow SS MCV (RBC) [Entitic vol] 93.6 fL Normal 81.0 - 100.0 fL Workflow SS Monocytes (Bld) [#/Vol] 0.7 103/mcL Normal 0.1 - 1.4 10^3/mcL AH Workflow SS Monocytes/100 WBC (Bld) 10.8 % Normal 2.0 - 13.0 % AH Workflow SS Neutrophils (Bld) [#/Vol] 3.7 103/mcL Normal 2.3 - 8.1 10^3/mcL AH Workflow SS Neutrophils/100 WBC (Bld) 59.7 % Normal 50.0 - 75.0 % AH Workflow SS Platelet mean volume (Bld) [Entitic vol] 7.7 fL Normal 6.4 - 10.5 fL AH Workflow SS Platelets (Bld) [#/Vol] 207 103/mcL Normal 150 - 450 10^3/mcL AH Workflow SS Potassium [Moles/Vol] 4.4 mmol/L Normal 3.5 - 5.0 mEq/L ADM SS RBC (Bld) [#/Vol] 3.15 106/mcL Low 4.50 - 6.0 0 10^6/mcL AH Workflow SS Sodium [Moles/Vol] 136 mmol/L Normal 136 - 145 mEq/L ADM SS Urea nitrogen [Mass/Vol] 54.0 mg/dL High 8.0 - 22.0 mg/dL ADM SS Urea nitrogen/Creatinine [Mass ratio] 7.3 ratio Low 10.0 - 22.0 ratio ADM SS WBC (Bld) [#/Vol] 6.2 103/mcL Normal 4.5 - 10.8 10^3/mcL Workflow SS .Auto Diffon 11-17-2024 Basophil, Absolute 0.1 10 3/mcL Normal 0.0-0.3 [facility] Comment on above: Performed By: #### G FR, CMP, A1C, MG, LIPID, TSH, TROPHS #### [address] [address] Basophils/100 WBC (Bld) 0.9 % Normal 0.0-2.5 [facility] MAIN Comment on above: Performed By: #### G FR, CMP, A1C, MG, LIPID, TSH, TROPHS #### [address] [address] Eosinophil, Absolute 0.5 10 3/mcL Normal 0.0-0.7 [facility] MAIN Comment on above: Performed By: #### G FR, CMP, A1C, MG, LIPID, TSH, TROPHS #### [address] [address] Eosinophils/100 WBC (Bld) 7.8 % High 0.0-6.0 [facility] MAIN Comment on above: Performed By: #### G FR, CMP, A1C, MG, LIPID, TSH, TROPHS #### [address] [address] Lymphocyte, Absolute 1.7 10 3/mcL Normal 0.9-4.3 [facility] MAIN Comment on above: Performed By: #### G FR, CMP, A1C, MG, LIPID, TSH, TROPHS #### [address] [address] Lymphocytes/100 WBC (Bld) 27.7 % Normal 20.0-40.0 [facility] MAIN Comment on above: Performed By: #### G FR, CMP, A1C, MG, LIPID, TSH, TROPHS #### [address] [address] Monocyte, Absolute 0.7 10 3/mcL Normal 0.1-1.4 [facility] MAIN Comment on above: Performed By: #### G FR, CMP, A1C, MG, LIPID, TSH, TROPHS #### [address] [address] Monocytes/100 WBC (Bld) 11.9 % Normal 2.0-13.0 [facility] MAIN Comment on above: Performed By: #### G FR, CMP, A1C, MG, LIPID, TSH, TROPHS #### [address] [address] Neutrophils/100 WBC (Bld) 51.7 % Normal 50.0-75.0 [facility] MAIN Comment on above: Performed By: #### G FR, CMP, A1C, MG, LIPID, TSH, TROPHS #### [address] [address] Basophil, Absolute 0.1 10 3/mcL Normal 0.0-0.3 [facility] MAIN Comment on above: Performed By: #### G FR, CMP, A1C, MG, LIPID, TSH, TROPHS #### [address] [address] Basophils/100 WBC (Bld) 1.0 % Normal 0.0-2.5 [facility] MAIN Comment on above: Performed By: #### G FR, CMP, A1C, MG, LIPID, TSH, TROPHS #### [address] [address] Eosinophil, Absolute 0.4 10 3/mcL Normal 0.0-0.7 [facility] MAIN Comment on above: Performed By: #### G FR, CMP, A1C, MG, LIPID, TSH, TROPHS #### [address] [address] Eosinophils/100 WBC (Bld) 6.6 % High 0.0-6.0 [facility] MAIN Comment on above: Performed By: #### G FR, CMP, A1C, MG, LIPID, TSH, TROPHS #### [address] [address] Lymphocyte, Absolute 1.2 10 3/mcL Normal 0.9-4.3 [facility] MAIN Comment on above: Performed By: #### G FR, CMP, A1C, MG, LIPID, TSH, TROPHS #### [address] [address] Lymphocytes/100 WBC (Bld) 18.9 % Low 20.0-40.0 [facility] MAIN Comment on above: Performed By: #### G FR, CMP, A1C, MG, LIPID, TSH, TROPHS #### [address] [address] Monocyte, Absolute 0.7 10 3/mcL Normal 0.1-1.4 [facility] MA[facility] Comment on above: Performed By: #### G FR, CMP, A1C, MG, LIPID, TSH, TROPHS #### [address] [address] Monocytes/100 WBC (Bld) 11.3 % Normal 2.0-13.0 [facility] MAIN Comment on above: Performed By: #### G FR, CMP, A1C, MG, LIPID, TSH, TROPHS #### [address] [address] Neutrophils/100 WBC (Bld) 62.2 % Normal 50.0-75.0 [facility] MAIN Comment on above: Performed By: #### G FR, CMP, A1C, MG, LIPID, TSH, TROPHS #### [address] [address] .GFRon 11-17-2024 Estimated Glomerular Filtration Rate 9 ml/min/1.73sqm [facility] MAIN Comment on above: Result Comment: Stages of Chronic Kidney Disease (CKD) Stage Description eGFR(ml/min/1.73 sq.m.) CKD 1 Normal kidney function or >=90 normal kindney function with possible kidney damage (ex. Proteinuria) CKD 2 Kidney damage with mild loss 60-89 of kidney function CKD 3a Mild to moderate loss of kidney 45-59 function CKD 3b Moderate to severe loss of 30-44 of kindey function CKD 4 Severe loss of kidney function 15-29 CKD 5 Kidney failure <15 Note: (go live 2024) the eGFR calculation was updated to the 2020 CKD-EPI creatinine equation without a race factor to calculate the eGFR results. Performed By: #### G FR, CMP, A1C, MG, LIPID, TSH, TROPHS #### [address] [address] Estimated Glomerular Filtration Rate 9 ml/min/1.73sqm Normal [facility] MAIN Comment on above: Result Comment: Stages of Chronic Kidney Disease (CKD) Stage Description eGFR(ml/min/1.73 sq.m.) CKD 1 Normal kidney function or >=90 normal kindney function with possible kidney damage (ex. Proteinuria) CKD 2 Kidney damage with mild loss 60-89 of kidney function CKD 3a Mild to moderate loss of kidney 45-59 function CKD 3b Moderate to severe loss of 30-44 of kindey function CKD 4 Severe loss of kidney function 15-29 CKD 5 Kidney failure <15 Note: (go live 2024) the eGFR calculation was updated to the 2020 CKD-EPI creatinine equation without a race factor to calculate the eGFR results. Performed By: #### G FR, CMP, A1C, MG, LIPID, TSH, TROPHS #### [address] [address] .NEUABSon 11-17-2024 Neutrophil, Absolute 3.2 10 3/mcL Normal 2.3-8.1 [facility] MAIN Comment on above: Performed By: #### G FR, CMP, A1C, MG, LIPID, TSH, TROPHS #### [address] [address] Neutrophil, Absolute 3.8 10 3/mcL Normal 2.3-8.1 [facility] MAIN Comment on above: Performed By: #### G FR, CMP, A1C, MG, LIPID, TSH, TROPHS #### [address] [address] BMPon 11-17-2024 BUN/Creatinine Ratio 6.8 ratio Low 10.0-22.0 [facility] MAIN Comment on above: Performed By: #### G FR, CMP, A1C, MG, LIPID, TSH, TROPHS #### [address] [address] Calcium [Mass/Vol] 9.2 mg/dL Normal 8.7-10.4 [facility] MAIN Comment on above: Performed By: #### G FR, CMP, A1C, MG, LIPID, TSH, TROPHS #### [address] [address] Chloride [Moles/Vol] 99 mmol/L Normal 98-110 [facility] MAIN Comment on above: Performed By: #### G FR, CMP, A1C, MG, LIPID, TSH, TROPHS #### [address] [address] CO2 [Moles/Vol] 30 mmol/L Normal 22-32 [facility] MAIN Comment on above: Performed By: #### G FR, CMP, A1C, MG, LIPID, TSH, TROPHS #### [address] [address] Creatinine [Mass/Vol] 5.86 mg/dL High 0.60-1.40 [facility] MAIN Comment on above: Result Comment: Test ing performed on [employer] analyzer using enzymatic creatinine methodology. Performed By: #### G FR, CMP, A1C, MG, LIPID, TSH, TROPHS #### [address] [address] Electrolyte Balance 7.0 mEq/L Normal 4.0-15.0 [facility] MAIN Comment on above: Performed By: #### G FR, CMP, A1C, MG, LIPID, TSH, TROPHS #### [address] [address] Glucose [Mass/Vol] 95 mg/dL Normal 82-115 [facility] MAIN Comment on above: Performed By: #### G FR, CMP, A1C, MG, LIPID, TSH, TROPHS #### [address] [address] Potassium [Moles/Vol] 4.3 mmol/L Normal 3.5-5.0 [facility] MAIN Comment on above: Performed By: #### G FR, CMP, A1C, MG, LIPID, TSH, TROPHS #### [address] [address] Sodium [Moles/Vol] 136 mmol/L Normal 136-145 [facility] MAIN Comment on above: Performed By: #### G FR, CMP, A1C, MG, LIPID, TSH, TROPHS #### [address] [address] Urea nitrogen [Mass/Vol] 40.0 mg/dL High 8.0-22.0 [facility] MAIN Comment on above: Performed By: #### G FR, CMP, A1C, MG, LIPID, TSH, TROPHS #### [address] [address] BUN/Creatinine Ratio 6.7 ratio Low 10.0-22.0 [facility] MAIN Comment on above: Order Comment: If no t done prior Performed By: #### G FR, CMP, A1C, MG, LIPID, TSH, TROPHS #### [address] [address] Calcium [Mass/Vol] 9.9 mg/dL Normal 8.7-10.4 [facility] MAIN Comment on above: Order Comment: If no t done prior Performed By: #### G FR, CMP, A1C, MG, LIPID, TSH, TROPHS #### [address] [address] Chloride [Moles/Vol] 98 mmol/L Normal 98-110 [facility] MAIN Comment on above: Order Comment: If no t done prior Performed By: #### G FR, CMP, A1C, MG, LIPID, TSH, TROPHS #### [address] [address] CO2 [Moles/Vol] 32 mmol/L Normal 22-32 [facility] MAIN Comment on above: Order Comment: If no t done prior Performed By: #### G FR, CMP, A1C, MG, LIPID, TSH, TROPHS #### [address] [address] Creatinine [Mass/Vol] 5.63 mg/dL High 0.60-1.40 [facility] MAIN Comment on above: Order Comment: If no t done prior Result Comment: Test ing performed on [employer] analyzer using enzymatic creatinine methodology. Performed By: #### G FR, CMP, A1C, MG, LIPID, TSH, TROPHS #### [address] [address] Electrolyte Balance 9.0 mEq/L Normal 4.0-15.0 [facility] MAIN Comment on above: Order Comment: If no t done prior Performed By: #### G FR, CMP, A1C, MG, LIPID, TSH, TROPHS #### [address] [address] Glucose [Mass/Vol] 98 mg/dL Normal 82-115 [facility] MAIN Comment on above: Order Comment: If no t done prior Performed By: #### G FR, CMP, A1C, MG, LIPID, TSH, TROPHS #### [address] [address] Potassium [Moles/Vol] 4.4 mmol/L Normal 3.5-5.0 [facility] MAIN Comment on above: Order Comment: If no t done prior Performed By: #### G FR, CMP, A1C, MG, LIPID, TSH, TROPHS #### [address] [address] Sodium [Moles/Vol] 139 mmol/L Normal 136-145 [facility] MAIN Comment on above: Order Comment: If no t done prior Performed By: #### G FR, CMP, A1C, MG, LIPID, TSH, TROPHS #### [place] [address] Urea nitrogen [Mass/Vol] 38.0 mg/dL High 8.0-22.0 [facility] MAIN Comment on above: Order Comment: If no t done prior Performed By: #### G FR, CMP, A1C, MG, LIPID, TSH, TROPHS #### [place] [id number] CBCon 11-17-2024 Erythrocyte distribution width (RBC) [Ratio] 18.1 % High 11.5-15.5 [facility] MAIN Comment on above: Performed By: #### G FR, CMP, A1C, MG, LIPID, TSH, TROPHS #### [place] [address] Hematocrit (Bld) [Volume fraction] 28.7 % Low 40.0-52.0 [facility] MAIN Comment on above: Performed By: #### G FR, CMP, A1C, MG, LIPID, TSH, TROPHS #### [place] [address] Hgb 9.4 G/dL Low 13.0-17.5 [facility] MAIN Comment on above: Performed By: #### G FR, CMP, A1C, MG, LIPID, TSH, TROPHS #### [place] [address] MCH (RBC) [Entitic mass] 30.0 pg Normal 27.0-33.0 [facility] MAIN Comment on above: Performed By: #### G FR, CMP, A1C, MG, LIPID, TSH, TROPHS #### [place] [address] MCHC 32.6 G/dL Normal 32.0-36.0 [facility] MAIN Comment on above: Performed By: #### G FR, CMP, A1C, MG, LIPID, TSH, TROPHS #### [place] [address] MCV (RBC) [Entitic vol] 92.3 fL Normal 81.0-100.0 [facility] MAIN Comment on above: Performed By: #### G FR, CMP, A1C, MG, LIPID, TSH, TROPHS #### [address] [address] Platelet 207 10 3/mcL Normal 150-450 [facility] MAIN Comment on above: Performed By: #### G FR, CMP, A1C, MG, LIPID, TSH, TROPHS #### [address] [address] Platelet mean volume (Bld) [Entitic vol] 7.8 fL Normal 6.4-10.5 [facility] MAIN Comment on above: Performed By: #### G FR, CMP, A1C, MG, LIPID, TSH, TROPHS #### [place] [address] RBC 3.12 10 6/mcL Low 4.50-6.00 [facility] MAIN Comment on above: Performed By: #### G FR, CMP, A1C, MG, LIPID, TSH, TROPHS #### [place] [address] WBC 6.1 10 3/mcL Normal 4.5-10.8 [facility] MAIN Comment on above: Performed By: #### G FR, CMP, A1C, MG, LIPID, TSH, TROPHS #### [place] [address] Erythrocyte distribution width (RBC) [Ratio] 18.4 % High 11.5-15.5 [facility] MAIN Comment on above: Order Comment: If no t done prior Performed By: #### G FR, CMP, A1C, MG, LIPID, TSH, TROPHS #### [place] [address] Hematocrit (Bld) [Volume fraction] 30.5 % Low 40.0-52.0 [facility] MAIN Comment on above: Order Comment: If no t done prior Performed By: #### G FR, CMP, A1C, MG, LIPID, TSH, TROPHS #### [place] [address] Hgb 10.0 G/dL Low 13.0-17.5 [facility] MAIN Comment on above: Order Comment: If no t done prior Performed By: #### G FR, CMP, A1C, MG, LIPID, TSH, TROPHS #### [place] [address] MCH (RBC) [Entitic mass] 30.5 pg Normal 27.0-33.0 [facility] MAIN Comment on above: Order Comment: If no t done prior Performed By: #### G FR, CMP, A1C, MG, LIPID, TSH, TROPHS #### [place] [address] MCHC 32.8 G/dL Normal 32.0-36.0 [facility] MAIN Comment on above: Order Comment: If no t done prior Performed By: #### G FR, CMP, A1C, MG, LIPID, TSH, TROPHS #### [place] [address] MCV (RBC) [Entitic vol] 92.8 fL Normal 81.0-100.0 [facility] MAIN Comment on above: Order Comment: If no t done prior Performed By: #### G FR, CMP, A1C, MG, LIPID, TSH, TROPHS #### [place] [address] Platelet 220 10 3/mcL Normal 150-450 [facility] MAIN Comment on above: Order Comment: If no t done prior Performed By: #### G FR, CMP, A1C, MG, LIPID, TSH, TROPHS #### [place] [address] Platelet mean volume (Bld) [Entitic vol] 7.8 fL Normal 6.4-10.5 [facility] MAIN Comment on above: Order Comment: If no t done prior Performed By: #### G FR, CMP, A1C, MG, LIPID, TSH, TROPHS #### [place] [address] RBC 3.28 10 6/mcL Low 4.50-6.00 [facility] MAIN Comment on above: Order Comment: If no t done prior Performed By: #### G FR, CMP, A1C, MG, LIPID, TSH, TROPHS #### [place] [address] WBC 6.2 10 3/mcL Normal 4.5-10.8 [facility] MAIN Comment on above: Order Comment: If no t done prior Performed By: #### G FR, CMP, A1C, MG, LIPID, TSH, TROPHS #### [place] [address] LABORATORYOrdered By: SYSTEM SYSTEM on 11-17-2024 Basophils (Bld) [#/Vol] 0.1 103/mcL Normal 0.0 - 0.3 10^3/mcL AH Workflow SS Basophils/100 WBC (Bld) 0.9 % Normal 0.0 - 2.5 % AH Workflow SS Calcium [Mass/Vol] 9.2 mg/dL Normal 8.7 - 10. 4 mg/dL AH ADM SS Chloride [Moles/Vol] 99 mmol/L Normal 98 - 110 mEq/L AH ADM SS CO2 [Moles/Vol] 30 mmol/L Normal 22 - 32 mEq/L AH ADM SS Creatinine [Mass/Vol] 5.86 mg/dL High 0.60 - 1.40 mg/dL AH ADM SS Comment on above: Interpretive Data: T esting performed on [employer] CH analyzer using enzymatic creatinine methodology. Electrolyte Balance 7.0 mEq/L Normal 4.0 - 15 .0 mEq/L AH ADM SS Eosinophils (Bld) [#/Vol] 0.5 103/mcL Normal 0.0 - 0.7 10^3/mcL AH Workflow SS Eosinophils/100 WBC (Bld) 7.8 % High 0.0 - 6.0 % AH Workflow SS Erythrocyte distribution width (RBC) [Ratio] 18.1 % High 11.5 - 15.5 % AH Workflow SS Estimated Glomerular Filtration Rate 9 ml/min/1.73sqm Invalid Interpretation Code AH ADM SS Comment on above: Interpretive Data: Stages of Chronic Kidney Disease (CKD) Stage Description eGFR(ml/min/1.73 sq.m.) CKD 1 Normal kidney function or >=90 normal kindney function with possible kidney damage (ex. Proteinuria) CKD 2 Kidney damage with mild loss 60-89 of kidney function CKD 3a Mild to moderate loss of kidney 45-59 function CKD 3b Moderate to severe loss of 30-44 of kindey function CKD 4 Severe loss of kidney function 15-29 CKD 5 Kidney failure <15 Note: (go live 2024) the eGFR calculation was updated to the 2020 CKD-EPI creatinine equation without a race factor to calculate the eGFR results. Glucose [Mass/Vol] 95 mg/dL Normal 82 - 115 mg/dL ADM SS Hematocrit (Bld) [Volume fraction] 28.7 % Low 40.0 - 52.0 % Workflow SS Hemoglobin (Bld) [Mass/Vol] 9.4 G/dL Low 13.0 - 17.5 G/dL Workflow SS Lymphocytes (Bld) [#/Vol] 1.7 103/mcL Normal 0.9 - 4.3 10^3/mcL Workflow SS Lymphocytes/100 WBC (Bld) 27.7 % Normal 20.0 - 40.0 % Workflow SS Magnesium [Mass/Vol] 2.0 mg/dL Normal 1.6 - 2.4 mg/dL ADM SS MCH (RBC) [Entitic mass] 30.0 pg Normal 27.0 - 33.0 pg Workflow SS MCHC 32.6 G/dL Normal 32.0 - 36.0 G/dL Workflow SS MCV (RBC) [Entitic vol] 92.3 fL Normal 81.0 - 100.0 fL Workflow SS Monocytes (Bld) [#/Vol] 0.7 103/mcL Normal 0.1 - 1.4 10^3/mcL Workflow SS Monocytes/100 WBC (Bld) 11.9 % Normal 2.0 - 13.0 % Workflow SS Natriuretic peptide.B prohormone N-Terminal IA [Mass/Vol] 51012 pg/mL High 0 - 1800 pg/mL ADM SS Neutrophils (Bld) [#/Vol] 3.2 103/mcL Normal 2.3 - 8.1 10^3/mcL Workflow SS Neutrophils/100 WBC (Bld) 51.7 % Normal 50.0 - 75.0 % Workflow SS Platelet mean volume (Bld) [Entitic vol] 7.8 fL Normal 6.4 - 10.5 fL Workflow SS Platelets (Bld) [#/Vol] 207 103/mcL Normal 150 - 450 10^3/mcL Workflow SS Potassium [Moles/Vol] 4.3 mmol/L Normal 3.5 - 5.0 mEq/L ADM SS RBC (Bld) [#/Vol] 3.12 106/mcL Low 4.50 - 6.0 0 10^6/mcL Workflow SS Sodium [Moles/Vol] 136 mmol/L Normal 136 - 145 mEq/L ADM SS Urea nitrogen [Mass/Vol] 40.0 mg/dL High 8.0 - 22.0 mg/dL ADM SS Urea nitrogen/Creatinine [Mass ratio] 6.8 ratio Low 10.0 - 22.0 ratio ADM SS WBC (Bld) [#/Vol] 6.1 103/mcL Normal 4.5 - 10.8 10^3/mcL AH Workflow SS Basophils (Bld) [#/Vol] 0.1 103/mcL Normal 0.0 - 0.3 10^3/mcL Workflow SS Basophils/100 WBC (Bld) 1.0 % Normal 0.0 - 2.5 % Workflow SS Calcium [Mass/Vol] 9.9 mg/dL Normal 8.7 - 10. 4 mg/dL ADM SS Chloride [Moles/Vol] 98 mmol/L Normal 98 - 110 mEq/L ADM SS CO2 [Moles/Vol] 32 mmol/L Normal 22 - 32 mEq/L ADM SS Creatinine [Mass/Vol] 5.63 mg/dL High 0.60 - 1.40 mg/dL ADM SS Comment on above: Interpretive Data: T esting performed on [employer] CH analyzer using enzymatic creatinine methodology. Electrolyte Balance 9.0 mEq/L Normal 4.0 - 15 .0 mEq/L ADM SS Eosinophils (Bld) [#/Vol] 0.4 103/mcL Normal 0.0 - 0.7 10^3/mcL Workflow SS Eosinophils/100 WBC (Bld) 6.6 % High 0.0 - 6.0 % Workflow SS Erythrocyte distribution width (RBC) [Ratio] 18.4 % High 11.5 - 15.5 % Workflow SS Estimated Glomerular Filtration Rate 9 ml/min/1.73sqm Invalid Interpretation Code Chemistry S Comment on above: Interpretive Data: Stages of Chronic Kidney Disease (CKD) Stage Description eGFR(ml/min/1.73 sq.m.) CKD 1 Normal kidney function or >=90 normal kindney function with possible kidney damage (ex. Proteinuria) CKD 2 Kidney damage with mild loss 60-89 of kidney function CKD 3a Mild to moderate loss of kidney 45-59 function CKD 3b Moderate to severe loss of 30-44 of kindey function CKD 4 Severe loss of kidney function 15-29 CKD 5 Kidney failure <15 Note: (go live 2024) the eGFR calculation was updated to the 2020 CKD-EPI creatinine equation without a race factor to calculate the eGFR results. Glucose [Mass/Vol] 98 mg/dL Normal 82 - 115 mg/dL AH ADM SS Hematocrit (Bld) [Volume fraction] 30.5 % Low 40.0 - 52.0 % AH Workflow SS Hemoglobin (Bld) [Mass/Vol] 10.0 G/dL Low 13.0 - 17.5 G/dL AH Workflow SS Lymphocytes (Bld) [#/Vol] 1.2 103/mcL Normal 0.9 - 4.3 10^3/mcL AH Workflow SS Lymphocytes/100 WBC (Bld) 18.9 % Low 20.0 - 40.0 % AH Workflow SS MCH (RBC) [Entitic mass] 30.5 pg Normal 27.0 - 33.0 pg AH Workflow SS MCHC 32.8 G/dL Normal 32.0 - 36.0 G/dL AH Workflow SS MCV (RBC) [Entitic vol] 92.8 fL Normal 81.0 - 100.0 fL AH Workflow SS Monocytes (Bld) [#/Vol] 0.7 103/mcL Normal 0.1 - 1.4 10^3/mcL AH Workflow SS Monocytes/100 WBC (Bld) 11.3 % Normal 2.0 - 13.0 % AH Workflow SS Neutrophils (Bld) [#/Vol] 3.8 103/mcL Normal 2.3 - 8.1 10^3/mcL AH Workflow SS Neutrophils/100 WBC (Bld) 62.2 % Normal 50.0 - 75.0 % AH Workflow SS Platelet mean volume (Bld) [Entitic vol] 7.8 fL Normal 6.4 - 10.5 fL AH Workflow SS Platelets (Bld) [#/Vol] 220 103/mcL Normal 150 - 450 10^3/mcL AH Workflow SS Potassium [Moles/Vol] 4.4 mmol/L Normal 3.5 - 5.0 mEq/L AH ADM SS RBC (Bld) [#/Vol] 3.28 106/mcL Low 4.50 - 6.0 0 10^6/mcL AH Workflow SS Sodium [Moles/Vol] 139 mmol/L Normal 136 - 145 mEq/L AH ADM SS Urea nitrogen [Mass/Vol] 38.0 mg/dL High 8.0 - 22.0 mg/dL AH ADM SS Urea nitrogen/Creatinine [Mass ratio] 6.7 ratio Low 10.0 - 22.0 ratio AH ADM SS WBC (Bld) [#/Vol] 6.2 103/mcL Normal 4.5 - 10.8 10^3/mcL AH Workflow SS MGon 11-17-2024 Magnesium [Mass/Vol] 2.0 mg/dL Normal 1.6-2.4 [facility] Comment on above: Performed By: #### G FR, CMP, A1C, MG, LIPID, TSH, TROPHS #### [address] [address] PBNPon 11-17-2024 Natriuretic peptide B (Bld) [Mass/Vol] 74155 pg/mL High 0-1800 [facility] Comment on above: Performed By: #### G FR, CMP, A1C, MG, LIPID, TSH, TROPHS #### [address] [address] .Auto Diffon 11-03-2024 Basophil, Absolute 0.0 10 3/mcL Normal 0.0-0.2 [facility] Comment on above: Performed By: #### A DIFF, GFR, BMP, ANEU, CBC #### [address] [address] Basophils/100 WBC (Bld) 0.6 % Normal 0.0-2.5 [facility] Comment on above: Performed By: #### A DIFF, GFR, BMP, ANEU, CBC #### [address] [address] Eosinophil, Absolute 0.4 10 3/mcL Normal 0.0-0.7 [facility] Comment on above: Performed By: #### A DIFF, GFR, BMP, ANEU, CBC #### [address] [address] Eosinophils/100 WBC (Bld) 6.0 % Normal 0.0-7.0 [facility] Comment on above: Performed By: #### A DIFF, GFR, BMP, ANEU, CBC #### [address] [address] Lymphocyte, Absolute 1.3 10 3/mcL Normal 0.9-4.3 [facility] Comment on above: Performed By: #### A DIFF, GFR, BMP, ANEU, CBC #### [address] [address] Lymphocytes/100 WBC (Bld) 18.4 % Low 20.0-40.0 [facility] Comment on above: Performed By: #### A DIFF, GFR, BMP, ANEU, CBC #### [address] [address] Monocyte, Absolute 0.6 10 3/mcL Normal 0.1-1.4 [facility] Comment on above: Performed By: #### A DIFF, GFR, BMP, ANEU, CBC #### [address] [address] Monocytes/100 WBC (Bld) 9.1 % Normal 2.0-13.0 [facility] Comment on above: Performed By: #### A DIFF, GFR, BMP, ANEU, CBC #### [address] [address] Neutrophils/100 WBC (Bld) 65.9 % Normal 50.0-75.0 [facility] Comment on above: Performed By: #### A DIFF, GFR, BMP, ANEU, CBC #### [address] [address] .GFRon 11-03-2024 Estimated Glomerular Filtration Rate 8 ml/min/1.73sqm Normal [facility] Comment on above: Result Comment: Stages of Chronic Kidney Disease (CKD) Stage Description eGFR(ml/min/1.73 sq.m.) CKD 1 Normal kidney function or >=90 normal kindney function with possible kidney damage (ex. Proteinuria) CKD 2 Kidney damage with mild loss 60-89 of kidney function CKD 3a Mild to moderate loss of kidney 45-59 function CKD 3b Moderate to severe loss of 30-44 of kindey function CKD 4 Severe loss of kidney function 15-29 CKD 5 Kidney failure <15 Note: (go live 2024) the eGFR calculation was updated to the 2020 CKD-EPI creatinine equation without a race factor to calculate the eGFR results. Performed By: #### B MP, TROPHS, ANEU, GFR, MDW, CBC, ADIFF #### [address] [address] .NEUABSon 11-03-2024 Neutrophil, Absolute 4.5 10 3/mcL Normal 2.3-8.1 [facility] Comment on above: Performed By: #### A DIFF, GFR, BMP, ANEU, CBC #### [address] [address] BMPon 11-03-2024 BUN/Creatinine Ratio 7 ratio Normal 7-27 [facility] Comment on above: Performed By: #### B MP, TROPHS, ANEU, GFR, MDW, CBC, ADIFF #### [address] [address] Calcium [Mass/Vol] 10.2 mg/dL Normal 8.4-10.2 [facility] Comment on above: Performed By: #### B MP, TROPHS, ANEU, GFR, MDW, CBC, ADIFF #### [address] [address] Chloride [Moles/Vol] 95 mmol/L Low 98-107 [facility] Comment on above: Performed By: #### B MP, TROPHS, ANEU, GFR, MDW, CBC, ADIFF #### [address] [address] CO2 [Moles/Vol] 34 mmol/L High 23-31 [facility] Comment on above: Performed By: #### B MP, TROPHS, ANEU, GFR, MDW, CBC, ADIFF #### [address] [address] Creatinine [Mass/Vol] 6.32 mg/dL High 0.70-1.30 [facility] Comment on above: Result Comment: Test ing performed on Siemens Dimension EXL analyzer using a modified kinetic Gumaro technique. Performed By: #### B MP, TROPHS, ANEU, GFR, MDW, CBC, ADIFF #### [address] [address] Electrolyte Balance 7.0 mEq/L Normal 4.0-15.0 [facility] Comment on above: Performed By: #### B MP, TROPHS, ANEU, GFR, MDW, CBC, ADIFF #### [address] [address] Glucose [Mass/Vol] 92 mg/dL Normal 83-110 [facility] Comment on above: Performed By: #### B MP, TROPHS, ANEU, GFR, MDW, CBC, ADIFF #### [address] [address] Potassium [Moles/Vol] 4.1 mmol/L Normal 3.5-5.1 [facility] Comment on above: Performed By: #### B MP, TROPHS, ANEU, GFR, MDW, CBC, ADIFF #### [address] [address] Sodium [Moles/Vol] 136 mmol/L Normal 136-145 [facility] Comment on above: Performed By: #### B MP, TROPHS, ANEU, GFR, MDW, CBC, ADIFF #### [address] [address] Urea nitrogen [Mass/Vol] 42 mg/dL High 7-18 [facility] Comment on above: Performed By: #### B MP, TROPHS, ANEU, GFR, MDW, CBC, ADIFF #### [address] [address] CBCon 11-03-2024 Erythrocyte distribution width (RBC) [Ratio] 17.1 % High 11.5-15.5 [facility] Comment on above: Performed By: #### A DIFF, GFR, BMP, ANEU, CBC #### [address] [address] Hematocrit (Bld) [Volume fraction] 34.6 % Low 40.0-52.0 [facility] Comment on above: Performed By: #### A DIFF, GFR, BMP, ANEU, CBC #### [address] [address] Hgb 11.3 G/dL Low 13.0-17.5 [facility] Comment on above: Performed By: #### A DIFF, GFR, BMP, ANEU, CBC #### [address] [address] MCH (RBC) [Entitic mass] 30.1 pg Normal 27.0-33.0 [facility] Comment on above: Performed By: #### A DIFF, GFR, BMP, ANEU, CBC #### [place] [address] MCHC 32.7 G/dL Normal 32.0-36.0 [facility] Comment on above: Performed By: #### A DIFF, GFR, BMP, ANEU, CBC #### [place] [address] MCV (RBC) [Entitic vol] 92.0 fL Normal 81.0-100.0 [facility] Comment on above: Performed By: #### A DIFF, GFR, BMP, ANEU, CBC #### [address] [address] Platelet 188 10 3/mcL Normal 150-450 [facility] Comment on above: Performed By: #### A DIFF, GFR, BMP, ANEU, CBC #### [address] [address] Platelet mean volume (Bld) [Entitic vol] 8.3 fL Normal 6.4-10.5 [facility] Comment on above: Performed By: #### A DIFF, GFR, BMP, ANEU, CBC #### [address] [address] RBC 3.76 10 6/mcL Low 4.50-6.00 [facility] Comment on above: Performed By: #### A DIFF, GFR, BMP, ANEU, CBC #### [address] [address] WBC 6.9 10 3/mcL Normal 4.5-10.8 [facility] Comment on above: Performed By: #### A DIFF, GFR, BMP, ANEU, CBC #### [facility] [address] [place], [place] [address] MR/BMS.Su 10-08-2024 MR/BMS.BVS [facility] Surgery [address] [place] [address] OFFICE VISIT Date of Service: 10/08/24 MR#: [id number] Acct: [id number] Name: LUIS MANUEL DURAN Jr. Rep #: [id number] : 1940 Provider: JONNA Clayton Age/Sex: 83/M Location: BMS.BVS Status: Signed Intake Vital Signs 09/10/24 14:21 09/18/24 10:18 10/01/24 12:03 10/08/24 08:49 Height 5 ft 7 in 5 ft 7 in 5 ft 7 in Weight: 174 lb 174 lb BMI 27.2 BP 155/75 H 119/73 Blood Pressure Location Lt brachial Lt brachial Position Sitting Sitting Respiration 20 H 16 Pulse 93 88 Pulse Source Monitor Monitor Temp 97.5 F L 97.7 F L Temp Source Temporal Pulse Oximetry (%) 97 93 Oxygen Delivery Method room air room air Intake Visit Reasons: NEW PATIENT: prolonged bleeding after dialysis Is patient in pain?: No Allergies lisinopril Adverse Reaction (Severe, Verified 10/08/24 08:51) Other Have you fallen in the past year?: No PFSH Medical History 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 Alcohol use History of renal disease Restless legs History of edema History of stress test Hypertension Anemia History of renal dialysis Wears glasses High cholesterol History of ulceration Gastric reflux Former smoker Hoarseness Chronic cough Cardiology follow-up encounter Ventral incisional hernia without obstruction or gangrene Screening for intestinal cancer Osteopenia determined by x-ray Hyperparathyroidism Recurrent inguinal hernia of right side without obstruction or gangrene Recurrent inguinal hernia TIA (transient ischemic attack) Mild renal insufficiency Esophageal reflux Dyslipidemia Hiatal hernia CKD (chronic kidney disease) stage 3, GFR 30-59 ml/min CAD (coronary artery disease), white mountain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 Anemia History of heart attack ( 09/04/14) Hypertension Surgical History History of arteriovenostomy for renal dialysis ( 01/2022) History of ventral hernia repair Hx of colonoscopy ( 12/17/13) Hx of parathyroidectomy Hx of bilateral inguinal hernia repair Hx of heart artery stent Family History Mother Colon cancer Father Colon cancer Myocardial infarction Brother Cancer Social History Smoking Status: Former smoker second hand exposure: No alcohol intake: current alcohol intake frequency: a few times a month substance use type: does not use caffeine: Yes what type of physical activity do you participate in: none seatbelt use: always HPI HPI HPI: LUIS MANUEL DURAN, is a 83 M who presents to the office today for evaluation of his L forearm AV fistula as referred from [facility] due to prolonged bleeding. He is accompanied to his appointment today by his . He shares that a couple weeks ago after decannulation they had difficulty getting the bleeding to stop from one of his access sites; however, eventually it did subside with holding pressure. Since that episode, he has not had any recurrence of prolonged bleeding. He otherwise denies any issues with dialysis or concerns with his fistula. He has not had any increased pain or swelling in his LUE. He has been completing dialysis sessions, only had to stop early once and that was due to abdominal cramping. 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 Since then, they have adjust his dialysis to remove less fluid and he has overall been feeling much better with much fewer episodes of abdominal pain and dizziness/orthostasis. ROS General General: Yes fatigue; No weight change, appetite, colon cancer, breast cancer or weakness HEENT HEENT: No difficulty swallowing, eye injury, eye surgery, swollen glands or hoarseness Endo Endocrine: No thyroid disease, diabetes mellitus, thyroid cancer, Hair loss, heat intolerance or cold intolerance Skin Skin: No rash or changing moles Musc Musculoskeletal: No back problems, arthritis, rheumatoid arthritis, gout or joint pain Cardio Cardiovascular: Yes high blood pressure, heart attack and heart stent; No murmur, pacemaker, heart disease, atrial fibrillation, palpitations, shortness of breat with exertion or chest pain Psych Psychiatric: No depression, anxiety or hearing voices Resp Respiratory: Yes shortness of breath, No sleep apnea, Yes cough, No COPD, Yes asthma, No emphysema and No wheezing Gastro Gastrointestinal: Yes abdominal pain, No nausea or vomiting, No diarrhea, No constipation, No blood in stool, Yes acid reflux, No hemorrhoids, No ulcers, No gal (more content not included)... Normal [facility] Pulmonary Visit Reporton Pulmonary Visit Report [facility] [address] [place] [address] OFFICE VISIT Date of Service: 10/01/24 MR#: [id number] Acct: [id number] Name: LUIS MANUEL DURAN JrEstefania Rep #: [id number] : 1940 Provider: KRYSTINA Callahan Age/Sex: 83/M [place] [facility] Status: Signed Assessment and Plan Assessment and Plan (1) Cough: Status: Acute Qualifiers: Cough type: chronic Qualified Code(s): R05.3 - Chronic cough Plan: Likely cough variant asthma. NIOX procedure performed in the office today returned with elevated results, this indicates that the patient would benefit from corticosteroids. He does not believe he was treated with prednisone over this past year. I am going to place him on an inhaled corticosteroid with the use of a spacer. Return to the office in 6 to 8 weeks to evaluate his response. I have advised him that it is not necessary to continue to utilize the Ventolin every 4 hours, he conveys understanding. I educated him on the importance of rinsing his mouth out after the use of his inhaled steroid, he conveys understanding. (2) Postnasal drip: Status: Chronic Plan: This could be contributing to his cough. I am going to place him on Flonase, 2 sprays each nostril daily for the next week. He was then instructed to drop down to 1 spray each nostril daily. He was educated on the possible side effect of epistaxis, if that should occur he should take a break for at least 1 week. He conveys understanding. Orders: Orders NIOX Today R05.9 - Cough, unspecified Medications: New fluticasone propionate 50 mcg/actuation 2 sprays intranasal DAILY 16 grams 3RF J45.909 - Unspecified asthma, uncomplicated [spacer] As directed 1 ea 0RF fluticasone propionate 220 mcg/actuation (Flovent HFA) administer with spacer 2 inhalations inhalation BID 12 grams 6RF Plan Details Additional Comments: This note was generated with [employer] dictation software. It may contain incorrect words, spelling, and punctuation that were not noted in checking the note before signing. Thank you for the referral and the opportunity to participate in this patient's care. HPI Persistent cough Chief Complaint: Cough HPI Comments Details: This patient presents to the office today for initial consultation regarding concern for evaluation of COPD. He is ambulatory, currently on room air and accompanied today by his Patient reports that approximately 1 year ago he developed a daily cough. The cough is mostly dry, however in the morning can be productive of clear-colored sputum. He also has associated postnasal drainage. That drainage as well is clear. He reports shortness of breath on exertion, seems to accompany the cough onset 1 year ago. He denies any wheezing, chest tightness, chest pain or palpitations. He has not had any fever, chills or body aches. Patient reports that over the past year his PCP put him on a 5 day antibiotic. Unfortunately he did not see any symptom resolution. He was then seen by a chief engineer research who placed him on a 10-day antibiotic. Again, he did not see any symptom resolution. The patient does admit that at 1 point he was on [id number] Claritin but did not see any relief. He has never tried any [id number] nasal sprays. He is not currently on an antihistamine. About 2 weeks ago his primary care doctor prescribed him Ventolin rescue inhaler. He has been using 2 puffs every 4 hours as long as I remember it. He admits that he has not seen any improvement in his cough while being treated with the Ventolin. The patient has been retired for many years. 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 He has were seen a spinning room worker. He believes he has had a pulmonary function test at [facility]. He was a smoker but quit smoking back in 1975. Past medical family history is significant for: Mother had rheumatoid arthritis and colon cancer. Father had colon cancer and a couple myocardial infarctions. He has 2 brothers, 1 of prostate cancer that was everywhere by the time they found it and a brother who has good health. The patient himself has 3 sons. The oldest has asthma, the middle son has diabetes and the youngest son has good health. Intake Vital Signs 07/22/24 12:13 09/18/24 10:18 10/01/24 12:03 Height 5 ft 7 in 5 ft 7 in 5 ft 7 in Weight: 174 lb BMI 27.2 BP 155/75 H Blood Pressure Location Lt brachial Position Sitting Respiration 20 H Pulse 93 Pulse Source Monitor Temp 97.5 F L Temperature Source Temporal Artery Pulse Oximetry (%) 97 Oxygen Delivery Method room air Intake Visit Reasons: Persistent cough Chief Complaint: CVC removal Used Equipment Sales Representative Required: No Accompanied by: Allergies (more content not included)... Normal [facility] CNOVon 09-22-2024 [facility] LUIS MANUEL DURAN JR ([id number]) 1940 M Date Time Provider Department 09/22/24 1:20 PM DEANNE SHEN During your visit today, we recorded the following information about you: Pulse Blood pressure Weight 90/minute 114/57 79.8 kg Deanne Shen APRN.MAMMOGRAPHER 09/22/2024 2:04 PM Signed Luis Manuel Duran JR is a 83 year old male here for a Medicare wellness visit. Medicare Health Risk Assessment General Health Not too bad Exercise: Minutes/Day 50 min Exercise: Days/Week 0 days Alcohol: Daily Use 2-4 times a month Alcohol: Drinks/Day 1 or 2 Alcohol: 6 or more drinks Never Feel off balance A little off balance with turning Concerns: Teeth/Dentures No Concerns: Sexual function No Troubled by feelings no Frequency: Eating healthy diet Trying to eat healthy; eats small meals ADLs requiring help no Safety precautions in home/vehicle no Smoke, vape, chews tobacco No Difficulty hearing no Difficulty seeing Wears glasses Current Providers Specialists: I have reviewed specialist-related care of the patient in the medical record. Current care team: Patient Care Team: Julio Licea MD as PCP - General (Family Medicine) Deanne Shen APRN.MAMMOGRAPHER as Box Coverer Hand (Family Medicine) Elana Candelario PA-C as Box Coverer Hand (Family Medicine) Medical/Family history review Reviewed and updated problem list, medical/surgical/family/soc ial history, medications, and allergies. Opioid use review Opioid Medications (last 90 days) No data to display Anxiety/Depression screening Recommendation: no further intervention at this time Cognitive screening Cognitive screening reviewed and No further action needed (score 3-5). Functional Observation Was the patient's Timed Up AND Go test unsteady or >= 12 seconds? No Advance Care Planning Surrogate decision maker and/or advance care plan documented Measurements There were no vitals taken for this visit. Vision Screening: Follows with optometry/ophthalmology Assessment/Plan Medicare annual wellness visit, subsequent (Z00.00) - Counseled on healthy diet and regular exercise - Fall avoidance information provided - Personalized prevention plan provided - Discussed need for and benefit of weight loss. No weight on file for this encounter. Chief Complaint No chief complaint on file. HPI Luis Manuel Duran JR is a 83 year old male who presents here today for Above Complaints.. Patient presents today for annual wellness exam. Patient states he is still having a productive cough. He feels like the the cough has been waxing and weaning over the past few days. Patient is feeling SOB with walking, but denies wheezing. Patient is still having abdominal pain following dialysis. Pt states nurses at dialysis are asking to take more fluid off that he can tolerate. His blood pressures during the sessions have been fine. Patient denies dizziness and sweating. Patient denies difficulty with urination. Patient states that the amount he urinates is dependent on the amount of fluid that is taken off during dialysis. Past medical history, appointments, medications, allergies reviewed. Previous Medical History PAST MEDICAL HISTORY Diagnosis Date Advance directive discussed with patient 12/15/2021 Discussed 12/2021 Anemia of chronic disease 10/15/2013 Benign essential tremor 07/03/2010 BPH with obstruction/lower urinary tract symptoms 08/01/2005 Chronic diastolic congestive heart failure (HCC) 12/15/2021 seeing cardio CKD (chronic kidney disease) stage 4, GFR 15-29 ml/min ([facility]) 03/04/2017 Coronary artery disease involving white mountain coronary artery of white mountain heart without angina pectoris 03/06/[address] Horton Cardio Marc COVID-19 virus infection 05/29/2021 05/27/2021 Diaphragmatic hernia without mention of obstruction or gangrene Hiatal hernia Elevated alkaline phosphatase level 09/24/2023 Elevated bone fraction: NM bone scan 09/2023 was normal. Elevated PSA 03/11/2019 Esophagitis, unspecified ESRD (end stage renal disease) on dialysis ([facility]) 07/11/2023 Essential hypertension, benign Ex-smoker 12/26/2020 Started age 18 up to 1.5 PPD and quit at age 35. Family history of malignant neoplasm of gastrointestinal tract GERD without esophagitis Gastroesophageal reflux Heart attack ([facility]) 2023 History of COVID-19 05/29/2021 05/27/2021 History of non-ST elevation myocardial infarction (NSTEMI) 03/06/2018 09/06/14-- stent 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 deficiency ([facility]) 10/15/2013 Living will on file 12/15/2021 DPA: Shea () Mild aortic stenosis 11/27/2021 Seeing Cardio Mixed hyperlipidemia 09/03/2013 Overweight (BMI 25.0-29.9) Parathyroid adenoma 05/27/2013 parathyroidectomy 05/27/13 Personal history of colonic polyps Colon polyps Primary hyperparathyroidism ([facility]) 03/04/2017 (more content not included)... Normal [facility] XR CHEST 2V FRONTAL/LATon XR CHEST 2V FRONTAL/LAT * * *Final Report* * * DATE OF EXAM: Sep 22 2024 2:16PM WOX [id number] - XR CHEST 2V FRONTAL/LAT / PROCEDURE REASON: multiple diagnoses * * * * Physician Interpretation * * * * EXAMINATION: CHEST RADIOGRAPH (2 VIEW FRONTAL and LATERAL) CLINICAL HISTORY: Abnormal lung sounds SOB (shortness of breath) MQ: XC2_6 EXAM DATE/TIME: 09/22/2024 2:16 PM COMPARISON: Chest x-ray dated 07/06/2024 RESULT: Lines, tubes, and devices: None. Lungs and pleura: No consolidation. No lung mass. No pleural effusion. No pneumothorax. Cardiomediastinal silhouette: Stable cardiomediastinal silhouette. Bones and soft tissues: Degenerative changes are present within the thoracic spine. IMPRESSION: No acute radiographic abnormality. Counter Supply Worker: ELHAM Transcribe Date/Time: Sep 22 2024 2:18P Dictated by : RIANA PALMA MD This examination was interpreted and the report reviewed and electronically signed by: RIANA PALMA MD on Sep 22 2024 2:21PM EST [id number] Normal [facility] XR Chest PA and Lateralon IMPRESSION: No acute radiographic abnormality. Counter Supply Worker: [facility] Transcribe Date/Time: Sep 22 2024 2:18P Dictated by : RIANA PALMA MD This examination was interpreted and the report reviewed and electronically signed by: RIANA PALMA MD on Sep 22 2024 2:21PM EST DIVISION OF RADIOLOGY * * *Final Report* * * DATE OF EXAM: Sep 22 2024 2:16PM WOX [id number] - XR CHEST 2V FRONTAL/LAT / PROCEDURE REASON: multiple diagnoses * * * * Physician Interpretation * * * * EXAMINATION: CHEST RADIOGRAPH (2 VIEW FRONTAL & LATERAL) CLINICAL HISTORY: Abnormal lung sounds SOB (shortness of breath) MQ: XC2_6 EXAM DATE/TIME: 09/22/2024 2:16 PM COMPARISON: Chest x-ray dated 07/06/2024 RESULT: Lines, tubes, and devices: None. Lungs and pleura: No consolidation. No lung mass. No pleural effusion. No pneumothorax. Cardiomediastinal silhouette: Stable cardiomediastinal silhouette. Bones and soft tissues: Degenerative changes are present within the thoracic spine. DIVISION OF RADIOLOGY Provider, [facility] - 09/22/2024 * * *Final Report* * * DATE OF EXAM: Sep 22 2024 2:16PM WOX [id number] - XR CHEST 2V FRONTAL/LAT / PROCEDURE REASON: multiple diagnoses * * * * Physician Interpretation * * * * EXAMINATION: CHEST RADIOGRAPH (2 VIEW FRONTAL & LATERAL) CLINICAL HISTORY: Abnormal lung sounds SOB (shortness of breath) MQ: XC2_6 EXAM DATE/TIME: 09/22/2024 2:16 PM COMPARISON: Chest x-ray dated 07/06/2024 RESULT: Lines, tubes, and devices: None. Lungs and pleura: No consolidation. No lung mass. No pleural effusion. No pneumothorax. Cardiomediastinal silhouette: Stable cardiomediastinal silhouette. Bones and soft tissues: Degenerative changes are present within the thoracic spine. IMPRESSION IMPRESSION: No acute radiographic abnormality. Counter Supply Worker: [employer] Transcribe Date/Time: Sep 22 2024 2:18P Dictated by : RIANA PALMA MD This examination was interpreted and the report reviewed and electronically signed by: RIANA PALMA MD on Sep 22 2024 2:21PM EST [facility] Radiology Study observation (narrative) [facility] XR Chest PA and LateralOrder ed By: [facility] Provider on 09-22-2024 [facility] CBC W Auto Differential pane l (Bld)on 09-17-2024 Basophils (Bld) [#/Vol] 0.04 10*3/uL [facility] Basophils/100 WBC (Bld) 0.6 % [facility] Differential cell count method Nom (Bld) Auto [facility] Eosinophils (Bld) [#/Vol] 0.53 10*3/uL High [facility] Eosinophils/100 WBC (Bld) 7.4 % [facility] Erythrocyte distribution width (RBC) [Ratio] 16.4 % High 11.5 - 15.0 % [facility] Hematocrit (Bld) [Volume fraction] 34.6 % Low 39.0 - 51.0 % [facility] Hemoglobin (Bld) [Mass/Vol] 10.5 g/dL Low 13.0 - 17.0 g/dL [facility] Immature granulocytes (Bld) [#/Vol] 0.05 10*3/uL [facility] Immature granulocytes/100 WBC (Bld) 0.7 % [facility] Interpretation and review of laboratory results Abnormal [facility] Lymphocytes (Bld) [#/Vol] 1.38 10*3/uL [facility] Lymphocytes/100 WBC (Bld) 19.3 % [facility] MCH (RBC) [Entitic mass] 30.0 pg 26.0 - 34.0 pg [facility] MCHC (RBC) [Mass/Vol] 30.3 g/dL Low 30.5 - 36.0 g/dL [facility] MCV (RBC) [Entitic vol] 98.9 fL 80.0 - 100.0 fL [facility] Monocytes (Bld) [#/Vol] 0.75 10*3/uL NINF [facility] Monocytes/100 WBC (Bld) 10.5 % [facility] Neutrophils (Bld) [#/Vol] 4.39 10*3/uL [facility] Neutrophils/100 WBC (Bld) 61.5 % [facility] Nucleated RBC (Bld) [#/Vol] NINF [facility] Nucleated RBC/100 WBC (Bld) [Ratio] 0.0 % /100 WBC [facility] Platelet mean volume (Bld) [Entitic vol] 10.1 fL 9.0 - 12.7 fL [facility] Platelets (Bld) [#/Vol] 180 10*3/uL [facility] RBC (Bld) [#/Vol] 3.50 10*6/uL Low 4.20 - 6.0 0 m/uL [facility] WBC (Bld) [#/Vol] 7.14 10*3/uL [facility] Basophils (Bld) [#/Vol] 0.04 10*3/uL Normal <0.11 [facility] Comment on above: Order Comment: Speci men Type: BLOOD SPECIMENOrdering Facility: [facility] Address: [address] [place] [address] Performed By: #### 5 7021-8 ####[facility] LABCLIA [id number] [place] [address] [place] Basophils/100 WBC (Bld) 0.6 % Normal [facility] Comment on above: Order Comment: Speci men Type: BLOOD SPECIMENOrdering Facility: [facility] Address: [address] [place] [address] Performed By: #### 5 7021-8 ####[facility] LABCLIA [id number] [place] [address] [place] Differential cell count method Nom (Bld) Auto Normal [facility] Comment on above: Order Comment: Speci men Type: BLOOD SPECIMENOrdering Facility: [facility] Address: [address] [place] [address] Performed By: #### 5 7021-8 ####[facility] LABCLIA [id number] [place] [address] [place] Eosinophils (Bld) [#/Vol] 0.53 10*3/uL High <0.46 [facility] Comment on above: Order Comment: Speci men Type: BLOOD SPECIMENOrdering Facility: [facility] Address: [address] [place] [address] Performed By: #### 5 7021-8 ####[facility] LABCLIA [id number] [place] [address] [place] Eosinophils/100 WBC (Bld) 7.4 % Normal [facility] Comment on above: Order Comment: Speci men Type: BLOOD SPECIMENOrdering Facility: [facility] Address: [address] [place] [address] Performed By: #### 5 7021-8 ####[facility] LABIA [id number] [place] [address] [place] Erythrocyte distribution width (RBC) [Ratio] 16.4 % High 11.5-15.0 [facility] Comment on above: Order Comment: Speci men Type: BLOOD SPECIMENOrdering Facility: [facility] Address: [address] [place] [address] Performed By: #### 5 7021-8 ####[facility] LABCLIA [id number] [place] [address] [place] Hematocrit (Bld) [Volume fraction] 34.6 % Low 39.0-51.0 [facility] Comment on above: Order Comment: Speci men Type: BLOOD SPECIMENOrdering Facility: [facility] Address: [address] [place] [address] Performed By: #### 5 7021-8 ####[facility] LABCLIA [id number] [place] [address] [place] Hemoglobin (Bld) [Mass/Vol] 10.5 g/dL Low 13.0-17.0 [facility] Comment on above: Order Comment: Speci men Type: BLOOD SPECIMENOrdering Facility: [facility] Address: [address] [place] [address] Performed By: #### 5 7021-8 ####[facility] LABCLIA [id number] [place] [address] [place] Immature granulocytes (Bld) [#/Vol] 0.05 10*3/uL Normal <0.10 [facility] Comment on above: Order Comment: Speci men Type: BLOOD SPECIMENOrdering Facility: [facility] Address: [address] [place] [address] Performed By: #### 5 7021-8 ####[facility] LABIA [id number] [place] [address] [place] Immature granulocytes/100 WBC (Bld) 0.7 % Normal [facility] Comment on above: Order Comment: Speci men Type: BLOOD SPECIMENOrdering Facility: [facility] Address: [address] [place] [address] Performed By: #### 5 7021-8 ####[facility] LABIA [id number] [place] [address] [place] Lymphocytes (Bld) [#/Vol] 1.38 10*3/uL Normal 1.00-4.00 [facility] Comment on above: Order Comment: Speci men Type: BLOOD SPECIMENOrdering Facility: [facility] Address: [address] [place] [address] Performed By: #### 5 7021-8 ####[facility] LABIA [id number] [place] [address] [place] Lymphocytes/100 WBC (Bld) 19.3 % Normal [facility] Comment on above: Order Comment: Speci men Type: BLOOD SPECIMENOrdering Facility: [facility] Address: [address] [place] [address] Performed By: #### 5 7021-8 ####[facility] LABIA [id number] [place] [address] [place] MCH (RBC) [Entitic mass] 30.0 pg Normal 26.0-34.0 [facility] Comment on above: Order Comment: Speci men Type: BLOOD SPECIMENOrdering Facility: [facility] Address: [address] [place] [address] Performed By: #### 5 7021-8 ####[facility] LABIA [id number] [place] [address] [place] MCHC (RBC) [Mass/Vol] 30.3 g/dL Low 30.5-36.0 [facility] Comment on above: Order Comment: Speci men Type: BLOOD SPECIMENOrdering Facility: [facility] Address: [address] [place] [address] Performed By: #### 5 7021-8 ####[facility] LABIA [id number] [place] [address] [place] MCV (RBC) [Entitic vol] 98.9 fL Normal 80.0-100.0 [facility] Comment on above: Order Comment: Speci men Type: BLOOD SPECIMENOrdering Facility: [facility] Address: [address] [place] [address] Performed By: #### 5 7021-8 ####[facility] LABIA [id number] [place] [address] [place] Monocytes (Bld) [#/Vol] 0.75 10*3/uL Normal <0.87 [facility] Comment on above: Order Comment: Speci men Type: BLOOD SPECIMENOrdering Facility: [facility] Address: [address] [place] [address] Performed By: #### 5 7021-8 ####[facility] LABCLIA [id number] [place] [address] [place] Monocytes/100 WBC (Bld) 10.5 % Normal [facility] Comment on above: Order Comment: Speci men Type: BLOOD SPECIMENOrdering Facility: [facility] Address: [address] [place] [address] Performed By: #### 5 7021-8 ####[facility] LABCLIA [id number] [place] [address] [place] Neutrophils (Bld) [#/Vol] 4.39 10*3/uL Normal 1.45-7.50 [facility] Comment on above: Order Comment: Speci men Type: BLOOD SPECIMENOrdering Facility: [facility] Address: [address] [place] [address] Performed By: #### 5 7021-8 ####[facility] LABCLIA [id number] [place] [address] [place] Neutrophils/100 WBC (Bld) 61.5 % Normal [facility] Comment on above: Order Comment: Speci men Type: BLOOD SPECIMENOrdering Facility: [facility] Address: [address] [place] [address] Performed By: #### 5 7021-8 ####[facility] LABCLIA [id number] [place] [address] [place] Nucleated RBC (Bld) [#/Vol] 10*3/uL Normal <0.01 [facility] Comment on above: Order Comment: Speci men Type: BLOOD SPECIMENOrdering Facility: [facility] Address: [address] [place] [address] Performed By: #### 5 7021-8 ####[facility] LABCLIA [id number] [place] [address] [place] Nucleated RBC/100 WBC (Bld) [Ratio] 0.0 /100 WBC Normal [facility] Comment on above: Order Comment: Speci men Type: BLOOD SPECIMENOrdering Facility: [facility] Address: [address] [place] [address] Performed By: #### 5 7021-8 ####[facility] LABCLIA [id number] [place] [address] [place] Platelet mean volume (Bld) [Entitic vol] 10.1 fL Normal 9.0-12.7 [facility] Comment on above: Order Comment: Speci men Type: BLOOD SPECIMENOrdering Facility: [facility] Address: [address] [place] [address] Performed By: #### 5 7021-8 ####[facility] LABCLIA [id number] [place] [address] [place] Platelets (Bld) [#/Vol] 180 10*3/uL Normal 150-400 [facility] Comment on above: Order Comment: Speci men Type: BLOOD SPECIMENOrdering Facility: [facility] Address: [address] [place] [address] Performed By: #### 5 7021-8 ####[facility] LABCLIA [id number] [place] [address] [place] RBC (Bld) [#/Vol] 3.50 10*6/uL Low 4.20-6.00 [facility] Comment on above: Order Comment: Speci men Type: BLOOD SPECIMENOrdering Facility: [facility] Address: [address] [place] [address] Performed By: #### 5 7021-8 ####[facility] LABCLIA [id number] [place] [address] [place] WBC (Bld) [#/Vol] 7.14 10*3/uL Normal 3.70-11.00 [facility] Comment on above: Order Comment: Speci men Type: BLOOD SPECIMENOrdering Facility: [facility] Address: [address] [place] [address] Performed By: #### 5 7021-8 ####[facility] LABCLIA [id number] [id number] [id number] [place] CNOVon 09-17-2024 CNOV Office Visit (FAMPWS ) LUIS MANUEL DURAN JR ([id number]) 1940 M Date Time Provider Department 09/17/24 9:00 AM DEANNE SHEN During your visit today, we recorded the following information about you: Pulse Respiration Blood pressure Weight 76/minute 14/minute 124/65 78.9 kg Deanne Shen, [place].MAMMOGRAPHER 09/17/2024 10:25 AM Signed Chief Complaint Patient presents with: Hospital F/U HPI Luis Manuel Duran JR is a 83 year old male who presents here today for Above Complaints.. Pt presents today for hospital follow up. Pt states he went to dialysis yesterday and did not have abdominal pain since they increased his dry weight. Pt states the abdominal pain typically feels hot and upset. During his session yesterday his blood pressure did not drop. He has a follow up visit with his kidney doctor sometime this month. Pt states he has had a cough for about a year that has been worsening over the past few days. The cough is productive at times and he is having nasal drainage. Pt states he is SOB with excretion and has some wheezing. He has also had chills. Pt denies fever, headaches and chest pain. Past medical history, appointments, medications, allergies reviewed. Previous Medical History PAST MEDICAL HISTORY Diagnosis Date Advance directive discussed with patient 12/15/2021 Discussed 12/2021 Anemia of chronic disease 10/15/2013 Benign essential tremor 07/03/2010 BPH with obstruction/lower urinary tract symptoms 08/01/2005 Chronic diastolic congestive heart failure (HCC) 12/15/2021 seeing cardio CKD (chronic kidney disease) stage 4, GFR 15-29 ml/min ([facility]) 03/04/2017 Coronary artery disease involving [place] coronary artery of [place] heart without angina pectoris 03/06/[address] Horton Cardio Marc COVID-19 virus infection 05/29/2021 05/27/2021 Diaphragmatic hernia without mention of obstruction or gangrene Hiatal hernia Elevated alkaline phosphatase level 09/24/2023 Elevated bone fraction: NM bone scan 09/2023 was normal. Elevated PSA 03/11/2019 Esophagitis, unspecified ESRD (end stage renal disease) on dialysis ([facility]) 07/11/2023 Essential hypertension, benign Ex-smoker 12/26/2020 Started age 18 up to 1.5 PPD and quit at age 35. Family history of malignant neoplasm of gastrointestinal tract GERD without esophagitis Gastroesophageal reflux Heart attack ([facility]) 2023 History of COVID-19 05/29/2021 05/27/2021 History of non-ST elevation myocardial infarction (NSTEMI) 03/06/2018 09/06/14-- stent 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 deficiency ([facility]) 10/15/2013 Living will on file 12/15/2021 DPA: Shea () Mild aortic stenosis 11/27/2021 Seeing Cardio Mixed hyperlipidemia 09/03/2013 Overweight (BMI 25.0-29.9) Parathyroid adenoma 05/27/2013 parathyroidectomy 05/27/13 Personal history of colonic polyps Colon polyps Primary hyperparathyroidism ([facility]) 03/04/2017 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: 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 TIA (transient ischemic attack) 06/2010 Ulcer of esophagus without bleeding Vitamin D deficiency 10/15/2013 Previous Surgical History PAST SURGICAL HISTORY Procedure Laterality Date BX/EXC LYMPH NODE OPEN SUPERFICIAL CC CORONARY STENT 11/18/2023 2 stents to Left Circ COLONOSCOPY 12/22/2019 COLONOSCOPY FLX DX W/COLLJ SPEC WHEN PFRMD 08/2000 Colonoscopy COLONOSCOPY FLX DX W/COLLJ SPEC WHEN PFRMD 10/19/2008 EGD 06/11/2024 EGD TRANSORAL BIOPSY SINGLE/MULTIPLE 10/19/2008 ESOPHAGOGASTRODUODENOSCOPY TRANSORAL DIAGNOSTIC ESOPHAGOGASTRODUODENOSCOPY TRANSORAL DIAGNOSTIC 12/22/[address] Marcial LAPAROSCOPIC HERNIA REPAIR Right 05/21/2018 recurrent incarcerated direct right inguinal hernia PARATHYROIDECTOMY/EXPLORATI ON PARATHYROIDS 05/27/2013 Parathyroid adenoma PAST SURGICAL HISTORY OF 01/20/2021 supraumbilical ventral hernia RPR 1ST INGUN HRNA AGE 5 YRS/> REDUCIBLE Hernia repair, inguinal BILATERAL Family History FAMILY HISTORY Problem Relation Age of Onset Colon Cancer Mother Colon Cancer Father Arthritis Mother Heart Father SD * 2 Prostate Cancer Brother Hypertension Brother None Brother Patient Allergies ALLERGIES Allergen Reactions Axid [Nizatidine] Unknown Entex Pse [Pseudoep* Unknown Lisinopril Cough Current Medications Current Outpatient Medications on File Prior to Visit Medication Sig finasteride (PROSCAR) 5 mg tablet Take 5 mg by mouth once daily. furosemide (LASIX) 80 mg tablet Take 0.5 tablets by mouth once daily. Per CardioMarc metoprolol tartrate, short acting, (LOPRESSOR) 50 mg tablet Take 0.5 tablets by mouth once daily. lansoprazole (PREVACID) 30 mg capsule Take 1 capsule by mouth once daily. calcium acetate,phosphat bind, (PHOSLO) 667 mg capsule clopidogrel (PLAVIX) 75 mg tablet Take 1 tablet by mouth every afternoon. atorvastatin (L (more content not included)... Normal [facility] Comprehensive metabolic 2000 panelon 09-17-2024 Albumin [Mass/Vol] 3.7 g/dL Low 3.9-4.9 [facility] Comment on above: Order Comment: Speci men Type: BLOOD SPECIMENOrdering Facility: [facility] Address: [address] [place] [address] Performed By: #### 2 4323-8, , LIPBAMBI, 2132-04 ####[facility] LABCLIA [id number] [place] [address] [place] ALP [Catalytic activity/Vol] 92 U/L Normal 38-113 [facility] Comment on above: Order Comment: Speci men Type: BLOOD SPECIMENOrdering Facility: [facility] Address: [address] [place] [address] Performed By: #### 2 4323-8, , LIPBAMBI, 2132-04 ####[facility] LABCLIA [id number] [address] [address] [place] ALT [Catalytic activity/Vol] 13 U/L Normal 10-54 [facility] Comment on above: Order Comment: Speci men Type: BLOOD SPECIMENOrdering Facility: [facility] Address: [address] [place] [address] Performed By: #### 2 4323-8, 11734-2, LIPNF, 2132-04 ####[facility] LABCLIA [id number] [place] [address] [place] Anion gap [Moles/Vol] 14 mmol/L Normal 8-15 [facility] Comment on above: Order Comment: Speci men Type: BLOOD SPECIMENOrdering Facility: [facility] Address: [address] [place] [address] Performed By: #### 2 4323-8, , LIPNF, 2132-04 ####[facility] LABIA [id number] [place] [address] [place] AST [Catalytic activity/Vol] 22 U/L Normal 14-40 [facility] Comment on above: Order Comment: Speci men Type: BLOOD SPECIMENOrdering Facility: [facility] Address: [address] [place] [address] Performed By: #### 2 4323-8, , LIPNF, 2132-04 ####[facility] LABIA [id number] [place] [address] [place] Bilirubin [Mass/Vol] 0.2 mg/dL Normal 0.2-1.3 [facility] Comment on above: Order Comment: Speci men Type: BLOOD SPECIMENOrdering Facility: [facility] Address: [address] [place] [address] Performed By: #### 2 4323-8, 95299-9, LIPNF, 2132-04 ####[facility] LABCLIA [id number] [place] [address] [place] Calcium [Mass/Vol] 10.0 mg/dL Normal 8.5-10.2 [facility] Comment on above: Order Comment: Speci men Type: BLOOD SPECIMENOrdering Facility: [facility] Address: [address] [place] [address] Performed By: #### 2 4323-8, 82996-5, LIPNF, 2132-04 ####[facility] LABCLIA [id number] [place] [address] [place] Chloride [Moles/Vol] 97 mmol/L Low 98-107 [facility] Comment on above: Order Comment: Speci men Type: BLOOD SPECIMENOrdering Facility: [facility] Address: [address] [place] [address] Performed By: #### 2 4323-8, , LIPNF, 2132-04 ####[facility] LABCLIA [id number] [place] [address] [place] CO2 [Moles/Vol] 28 mmol/L Normal 22-30 [facility] Comment on above: Order Comment: Speci men Type: BLOOD SPECIMENOrdering Facility: [facility] Address: [address] [place] [address] Performed By: #### 2 4323-8, , LIPNF, 2132-04 ####[facility] LABCLIA [id number] [place] [address] [place] Creatinine [Mass/Vol] 5.31 mg/dL High 0.73-1.22 [facility] Comment on above: Order Comment: Speci men Type: BLOOD SPECIMENOrdering Facility: [facility] Address: [address] [place] [address] Performed By: #### 2 4323-8, 08633-2, LIPNF, 2132-04 ####[facility] LABCLIA [id number] [place] [address] [place] Creatinine and Glomerular filtration rate.predicted panel (S/P/Bld) 10 mL/min/1.73m??? Low >=60 [facility] Comment on above: Order Comment: Cory howard Type: BLOOD SPECIMENOrdering Facility: [facility] Address: [address] [place] [address] Result Comment: Elena mated Glomerular Filtration Rate (eGFR) is calculated using the 2020 CKD-EPI creatinine equation. This equation utilizes serum creatinine, sex, and age as parameters. The creatinine assay has traceable calibration to isotope dilution-mass spectrometry. Refer to KDIGO guidelines for clinical interpretation. In patients with unstable renal function, e.g. those with acute kidney injury, the eGFR may not accurately reflect actual GFR. Performed By: #### 2 4323-8, , LIPBAMBI, 2132-04 ####[facility] LABCLIA [id number] [place] [address] [place] Glucose [Mass/Vol] 109 mg/dL High 74-99 [facility] Comment on above: Order Comment: Cory howard Type: BLOOD SPECIMENOrdering Facility: [facility] Address: [address] [place] [address] Result Comment: The [place] [employer] (ADA) provides guidance for cutoff values for fasting glucose and random glucose. The ADA defines fasting as no caloric intake for at least 8 hours. Fasting plasma glucose results between 100 to 125 mg/dL indicate increased risk for diabetes (prediabetes). Fasting plasma glucose results greater than or equal to 126 mg/dL meet the criteria for diagnosis of diabetes. In the absence of unequivocal hyperglycemia, results should be confirmed by repeat testing. In a patient with classic symptoms of hyperglycemia or hyperglycemic crisis, random plasma glucose results greater than or equal to 200 mg/dL meet the criteria for diagnosis of diabetes. Reference: Standards of Medical Care in Diabetes 2016, [place] [employer]. Diabetes Care. 2016.39(Suppl 1). Performed By: #### 2 4323-8, , LIPNF, 2132-04 ####[facility] LABCLIA [id number] [place] [id number] [place] Potassium [Moles/Vol] 4.2 mmol/L Normal 3.7-5.1 [facility] Comment on above: Order Comment: Speci men Type: BLOOD SPECIMENOrdering Facility: [facility] Address: [address] [place] [address] Performed By: #### 2 4323-8, 14998-7, LIPNF, 2132-04 ####[facility] LABCLIA [id number] [place] [address] [place] Protein [Mass/Vol] 6.8 g/dL Normal 6.3-8.0 [facility] Comment on above: Order Comment: Speci men Type: BLOOD SPECIMENOrdering Facility: [facility] Address: [address] [place] [address] Performed By: #### 2 4323-8, , LIPNF, 2132-04 ####[facility] LABIA [id number] [place] [address] [place] Sodium [Moles/Vol] 139 mmol/L Normal 136-144 [facility] Comment on above: Order Comment: Speci men Type: BLOOD SPECIMENOrdering Facility: [facility] Address: [address] [place] [address] Performed By: #### 2 4323-8, , LIPNF, 2132-04 ####[facility] LABCLIA [id number] [place] [address] [place] Urea nitrogen [Mass/Vol] 30 mg/dL High 9-24 [facility] Comment on above: Order Comment: Speci men Type: BLOOD SPECIMENOrdering Facility: [facility] Address: [address] [place] [address] Performed By: #### 2 4323-8, 08159-2, LIPNF, 2132-04 ####[facility] LABCLIA [id number] [place] [id number] [place] HbA1c (Bld)on 09-17-2024 Average glucose Estimated from glycated hemoglobin (Bld) [Mass/Vol] 108 mg/dL Normal [facility] Comment on above: Order Comment: Cory howard Type: BLOOD SPECIMENOrdering Facility: [facility] Address: [address] [place] [address] Result Comment: eAG: (Estimated average glucose) is a calculated value from HgbA1c and is ict sales representative of the average blood glucose level in the last 2-3 month period. Performed By: #### 5 5454-3 ####[facility] LABCLIA [id number] [place] [address] [place] HbA1c (Bld) [Mass fraction] 5.4 % Normal 4.3-5.6 [facility] Comment on above: Order Comment: Cory howard Type: BLOOD SPECIMENOrdering Facility: [facility] Address: [address] [place] [address] Result Comment: Amer ican Diabetes Association guidelines indicate that patients with HgbA1c in the range 5.7-6.4% are at increased risk for development of diabetes, and intervention by lifestyle modification may be beneficial. HgbA1c greater or equal to 6.5% is considered diagnostic of diabetes. Performed By: #### 5 5454-3 ####[facility] LABCLIA [id number] [address] [place] LIPID PANEL, NONFASTINGon Cholesterol [Mass/Vol] 145 mg/dL Normal <200 [facility] Comment on above: Order Comment: Cory howard Type: BLOOD SPECIMENOrdering Facility: [facility] Address: [address] [place] [address] Result Comment: <200 mg/dL, Desirable 200-239 mg/dL, Borderline high >239 mg/dL, High Performed By: #### 2 4323-8, 86058-2, LIPNF, 2-9 ####[facility] LABCLIA [id number] [place] [address] [place] HDL CHOLESTEROL, NF 59 mg/dL Normal >39 [facility] Comment on above: Order Comment: Speci men Type: BLOOD SPECIMENOrdering Facility: [facility] Address: [address] [place] [address] Result Comment: 40-5 9 mg/dL, Acceptable >59 mg/dL, High: Negative risk factor for coronary heart disease <40 mg/dL, Low: Positive risk factor for coronary heart disease Performed By: #### 2 4323-8, , LIPNF, 2132-04 ####[facility] LABCLIA [id number] [address] OF [facility] LDL CHOLESTEROL, NF 74 mg/dL Normal <100 [facility] Comment on above: Order Comment: Speci men Type: BLOOD SPECIMENOrdering Facility: [facility] Address: [address] [place] [address] Result Comment: <100 mg/dL, Optimal 100-129 mg/dL, Near optimal/above optimal 130-159 mg/dL, Borderline high 160-189 mg/dL, High >189 mg/dL, Very high Secondary prevention optimal LDL Cholesterol levels are recommended to be < 70 mg/dL Performed By: #### 2 3-8, , LIPNF, 2132-04 ####[facility] LABCLIA [id number] [address] [place] LDL/HDL RATIO, NF 1.25 mg/dL Normal <2.54 [facility] Comment on above: Order Comment: Speci men Type: BLOOD SPECIMENOrdering Facility: [facility] Address: [address] [place] [address] Result Comment: Refe rence: 1. National Cholesterol Education Program ATP III Guideline At-A-Glance Quick Desk Reference: National Heart, Lung, and Blood Rarden. National Institutes of Health. 2001: NIH Publication No. 01-3305. 2. An International Atherosclerosis Society position paper: global recommendations for the management of dyslipidemia: executive summary, Atherosclerosis. 2014: 232(2):410-413. Performed By: #### 2 4323-8, , LIPNF, 2132-04 ####[facility] LABCLIA [id number] [place] [address] [place] NON HDL CHOL, NF 86 mg/dL Normal <130 [facility] Comment on above: Order Comment: Speci men Type: BLOOD SPECIMENOrdering Facility: [facility] Address: [address] [place] [address] Result Comment: <130 mg/dL, Optimal 130-159 mg/dL, Near optimal/above optimal 160-189 mg/dL, Borderline high 190-219 mg/dL, High >219 mg/dL, Very high Secondary prevention optimal non HDL Cholesterol levels are recommended to be <100 mg/dL Performed By: #### 2 3-8, , LIPNF, 2132-04 ####[facility] LABCLIA [id number] [place] [address] [place] T CHOL/HDL RATIO NF 2.46 mg/dL Normal <5.10 [facility] Comment on above: Order Comment: Speci men Type: BLOOD SPECIMENOrdering Facility: [facility] Address: [address] [place] [address] Performed By: #### 2 4322-8, , LIPNF, 2132-04 ####[facility] LABCLIA [id number] [place] [address] [place] TRIGLYCERIDES, NF 59 mg/dL Normal <150 [facility] Comment on above: Order Comment: Speci men Type: BLOOD SPECIMENOrdering Facility: [facility] Address: [address] [place] [address] Result Comment: <150 mg/dL, Normal 150-199 mg/dL, Borderline high 200-499 mg/dL, High >499 mg/dL, Very high Performed By: #### 2 3-8, , LIPNF, 2132-04 ####[facility] LABCLIA [id number] [place] [address] [place] VLDL CHOLESTEROL, NF 12 mg/dL Normal <30 [facility] Comment on above: Order Comment: Speci men Type: BLOOD SPECIMENOrdering Facility: [facility] Address: [address] [place] [address] Performed By: #### 2 4323-8, 80602-4, LIPNF, 2132-04 ####[facility] LABCLIA [id number] [place] [address] [place] Magnesium SerPl-mCncon 09-17 Magnesium [Mass/Vol] 2.0 mg/dL Normal 1.7-2.3 [facility] Comment on above: Order Comment: Speci men Type: BLOOD SPECIMENOrdering Facility: [facility] Address: [address] [place] [address] Performed By: #### 2 4323-8, , LIPNF, 2132-04 ####[facility] LABCLIA [id number] [place] [address] [place] PSA/PROSTATE SPECIFIC ANTIGE N SCREENINGon 09-17-2024 Prostate specific Ag [Mass/Vol] 11.03 ng/mL High <2.60 [facility] Comment on above: Order Comment: Speci men Type: BLOOD SPECIMENOrdering Facility: [facility] Address: [address] [place] [address] Result Comment: Tota l PSA test methodology used is the Electrochemiluminescence Immunoassay by [employer]. Total PSA values by differing methodologies cannot be interchanged. For an individual patient, the significance of a PSA level should be interpreted in a broad clinical context, including age, race, family history, digital rectal exam, prostate size, results of prior testing (prostate biopsy, free PSA, PCA3), and use of 5-alpha reductase inhibitors. Considering the high incidence of asymptomatic cancer in the general population that may not pose an ultimate risk to a patient, the decision to recommend urological evaluation or prostate biopsy should be individualized after consideration of all these factors. REFERENCE: Geraldine Richard M.D., M.P.H., Fazal Pretty M.D., Ph.D., Roberta Nair M.D., José Antonio Iraheta M.P.H., Livier Jenkins Sc.D. Effect of Verification Bias on Screening for Prostate Cancer by Measurement of Prostatic Specific Antigen. N Engl J Med 2003,349:335-42. Performed By: #### P SAS1 ####[facility] LABCLIA [id number] [address] STATES OF [facility] Urinalysis complete panel (U )on 09-17-2024 Bacteria LM.HPF (Urine sed) [#/Area] Negative Negative /HPF [facility] Bilirubin Ql (U) Negative Negative [facility] Clarity (Unsp spec) Clear Clear [facility] Color (U) Yellow Yellow [facility] Epithelial cells LM.HPF (Urine sed) [#/Area] None Seen /HPF [facility] Glucose Test strip (U) [Mass/Vol] Trace Abnormal Negative [facility] Hemoglobin Ql (U) Negative Negative [facility] Hyaline casts (Urine sed) [#/Area] 1-3 /LPF Abnormal 0 /LPF [facility] Interpretation and review of laboratory results Abnormal [facility] Ketones Ql (U) Negative Negative [facility] Leukocyte esterase Test strip Ql (U) Negative Negative [facility] Nitrite Ql (U) Negative Negative [facility] pH (U) 8.5 [pH] High NINF - 8.5 [facility] Protein (U) [Mass/Vol] 3+ Abnormal Negative [facility] RBC LM.HPF (Urine sed) [#/Area] 0-2 /HPF 0-2 /HPF [facility] Specific gravity (U) [Rel density] 1.014 1.005 - 1.030 [facility] Urobilinogen Ql (U) 0.2 EU/dL 0.2-1.0 EU/dL [facility] WBC LM.HPF (Urine sed) [#/Area] 0-5 /HPF 0-5 /HPF [facility] This test was develo ped and its performance characteristics determined by [facility]'s Jc Feliz [facility] Pathology and Laboratory Medicine [place] (RTPLMI). It has not been cleared or approved by the FDA. [facility] is regulated under CLIA as qualified to perform high-complexity testing. This test is used for clinical purposes. It should not be regarded as investigational or for research. [facility] Bacteria LM.HPF (Urine sed) [#/Area] Negative Normal Negative [facility] Comment on above: Order Comment: Speci men Type: URINE SPECIMENOrdering Facility: [facility] Address: [address] [place] [address] Performed By: #### 2 4356-8 ####[facility] LABCLIA [id number] [place] [address] [place] Bilirubin Ql (U) Negative Normal Negative [facility] Comment on above: Order Comment: Speci men Type: URINE SPECIMENOrdering Facility: [facility] Address: [address] [place] [address] Performed By: #### 2 4356-8 ####[facility] LABCLIA [id number] [place] [address] [place] Clarity (Unsp spec) Clear Normal Clear [facility] Comment on above: Order Comment: Speci men Type: URINE SPECIMENOrdering Facility: [facility] Address: [address] [place] [address] Performed By: #### 2 4356-8 ####[facility] LABCLIA [id number] [place] [address] [place] Color (U) Yellow Normal Yellow [facility] Comment on above: Order Comment: Speci men Type: URINE SPECIMENOrdering Facility: [facility] Address: [address] [place] [address] Performed By: #### 2 4356-8 ####[facility] LABCLIA [id number] [place] [address] [place] Epithelial cells LM.HPF (Urine sed) [#/Area] None Seen Normal [facility] Comment on above: Order Comment: Speci men Type: URINE SPECIMENOrdering Facility: [facility] Address: [address] [place] [address] Performed By: #### 2 4356-8 ####[facility] LABCLIA [id number] [place] [address] [place] Glucose Test strip (U) [Mass/Vol] Trace Abnormal Negative [facility] Comment on above: Order Comment: Speci men Type: URINE SPECIMENOrdering Facility: [facility] Address: [address] [place] [address] Performed By: #### 2 4356-8 ####[facility] LABCLIA [id number] [place] [address] [place] Hemoglobin Ql (U) Negative Normal Negative [facility] Comment on above: Order Comment: Speci men Type: URINE SPECIMENOrdering Facility: [facility] Address: [address] [place] [address] Performed By: #### 2 4356-8 ####[facility] LABCLIA [id number] [place] [address] [place] Hyaline casts (Urine sed) [#/Area] 1-3 /LPF Abnormal 0 /LPF [facility] Comment on above: Order Comment: Speci men Type: URINE SPECIMENOrdering Facility: [facility] Address: [address] [place] [address] Performed By: #### 2 4356-8 ####[facility] LABCLIA [id number] [place] [address] [place] Ketones Ql (U) Negative Normal Negative [facility] Comment on above: Order Comment: Speci men Type: URINE SPECIMENOrdering Facility: [facility] Address: [address] [place] [address] Performed By: #### 2 4356-8 ####[facility] LABCLIA [id number] [place] [address] [place] Leukocyte esterase Test strip Ql (U) Negative Normal Negative [facility] Comment on above: Order Comment: Speci men Type: URINE SPECIMENOrdering Facility: [facility] Address: [address] [place] [address] Performed By: #### 2 4356-8 ####[facility] LABCLIA [id number] [place] [address] [place] Nitrite Ql (U) Negative Normal Negative [facility] Comment on above: Order Comment: Speci men Type: URINE SPECIMENOrdering Facility: [facility] Address: [address] [place] [address] Performed By: #### 2 4356-8 ####[facility] LABCLIA [id number] [place] [address] [place] pH (U) 8.5 [pH] High <8.5 [facility] Comment on above: Order Comment: Speci men Type: URINE SPECIMENOrdering Facility: [facility] Address: [address] [place] [address] Performed By: #### 2 4356-8 ####[facility] LABCLIA [id number] [place] [address] [place] Protein (U) [Mass/Vol] 3+ Abnormal Negative [facility] Comment on above: Order Comment: Speci men Type: URINE SPECIMENOrdering Facility: [facility] Address: [address] [place] [address] Performed By: #### 2 4356-8 ####[facility] LABCLIA [id number] [place] [address] [place] RBC LM.HPF (Urine sed) [#/Area] 0-2 /HPF Normal 0-2 /HPF [facility] Comment on above: Order Comment: Speci men Type: URINE SPECIMENOrdering Facility: [facility] Address: [address] [place] [address] Performed By: #### 2 4356-8 ####[facility] LABCLIA [id number] [id number] [address] [place] Specific gravity (U) [Rel density] 1.014 Normal 1.005-1.030 [facility] Comment on above: Order Comment: Speci men Type: URINE SPECIMENOrdering Facility: [facility] Address: [address] [place] [address] Performed By: #### 2 4356-8 ####[facility] LABCLIA [id number] [place] [address] [place] Urobilinogen Ql (U) 0.2 EU/dL Normal 0.2-1.0 EU/dL [facility] Comment on above: Order Comment: Speci men Type: URINE SPECIMENOrdering Facility: [facility] Address: [address] [place] [address] Performed By: #### 2 4356-8 ####[facility] LABCLIA [id number] [place] [address] [place] WBC LM.HPF (Urine sed) [#/Area] 0-5 /HPF Normal 0-5 /HPF [facility] Comment on above: Order Comment: Speci men Type: URINE SPECIMENOrdering Facility: [facility] Address: [address] [place] [address] Performed By: #### 2 4356-8 ####[facility] LABIA [id number] [place] [address] [place] Vit [facility] Cobalamin (Vitamin B12) [Mass/Vol] 733 pg/mL Normal 232-1245 [facility] Comment on above: Order Comment: Speci men Type: BLOOD SPECIMENOrdering Facility: [facility] Address: [address] [place] [address] Performed By: #### 2 4323-8, 81466-2, LIPNF, 2132-9 ####[facility] LABCLIA [id number] [place] [id number] [place] Discharge Instructionon 08-14 Discharge Instruction [facility] Medical Records Department [address] [address] Instructions for Home/Discharge Instructions 09/11/24 1020 MR#: [id number] Acct: [id number] Name: LUIS MANUEL DURAN Jr. Rep #: [id number] : 1940 83 From: Tito Henry MD PCP: Dr. Julio Licea MD Status:ADM NEW Discharge Instructions Diet Discharge Diet: No restrictions DC O2, CPAP, BIPAP needs Home O2 Discharge instructions: No Dressing / Incision Discharge Activity: Return to Normal Activity Weight Bearing Status: Weight bearing as tolerated Dressing / Incision Call your doctor if you observe: Fever of 101 or Higher, Coldness, Increased Pain, Numbness or Tingling, Change in Color, Inability to urinate, Inability to have a bowel movement, Shortness of breath, Dizziness, Fainting spells, Swelling in the ankles, Chest pain, Prolonged hiccupping, Increased palpitations (irregular heartbeat) and Calf discomfort Follow Up Care When: IN 2 WEEKS Test Results: Test results from this visit will be discussed in further detail at your follow-up appointment, if applicable. Discharge Plan Admission Admit Date/Time: 09/09/24 17:33 Primary Reason for Your Visit: Abdominal pain, partial mesenteric artery atherosclerotic/ischemic Attending Provider: Tito Henry Primary Care Provider: Julio Licea Consulting Providers: Chriss Zayas; Antione Montaño; Yg Carrasco Instructions Additional Instructions / Restrictions: Patient has appointment with spinning room worker Dr. Malick Samayoa in October 2024 Discharge Orders/Prescriptions Prescriptions: Continued aspirin [Adult Low Dose Aspirin] 81 mg tablet,delayed release (DR/EC) 81 mg PO DAILY atorvastatin 40 mg tablet 40 mg PO QHS pantoprazole 40 mg tablet,delayed release (DR/EC) 40 mg PO DAILY nitroglycerin 0.4 MG tablet, sublingual 0.4 mg SL X1 PRN (Reason: CHEST PAIN) isosorbide mononitrate 30 mg tablet extended release 24 hr 30 mg PO DAILY finasteride 5 mg tablet 5 mg PO DAILY metoprolol succinate 25 mg tablet extended release 24 hr 25 mg PO DAILY calcium acetate(phosphat bind) 667 mg capsule 667 mg PO TIDCM Changed furosemide 40 mg tablet 40 mg PO DAILY PRN (Reason: leg edema/SOB) 30 Days Qty: 0 0RF Referrals / Follow Up: Julio Licea MD [Primary Care Provider] - Disposition Disposition (needs filled in before D/C Order can be placed): Home, Self Care 09/11/24 5795 Tito Henry MD CC: Dr. Yg Carrasco DO; Dr. Antione Montaño MD; Dr. Chriss Zayas MD; Dr. Julio Licea MD Signed Normal [facility] Basic Metabolic Profile (BMP )on 09-10-2024 BUN/CRE 8.2 RATIO Low 10-20 [facility] Comment on above: Performed By: #### L 100.0500, L500.2500 #### [facility] [address] [place], [address] CA,Total 8.9 mg/dL Normal 8.5-10.1 [facility] Comment on above: Performed By: #### L 100.0500, L500.2500 #### [facility] [address] [place], [address] Chloride [Moles/Vol] 95 mmol/L Low 98-107 [facility] Comment on above: Performed By: #### L 100.0500, L500.2500 #### [facility] [address] [place], [address] CO2 [Moles/Vol] 29.0 mmol/L Normal 21.0-32.0 [facility] Comment on above: Performed By: #### L 100.0500, L500.2500 #### [facility] [address] [place], [address] Creatinine [Mass/Vol] 5.14 mg/dL High 0.70-1.30 [facility] Comment on above: Result Comment: The validity of the calculated GFR GFRAA in patients over 70 years has not been determined. Clinical correlation is essential. Performed By: #### L 100.0500, L500.2500 #### [facility] [address] [place], [address] ECRCL 10.36 ml/min Normal [facility] Comment on above: Performed By: #### L 100.0500, L500.2500 #### [facility] [address] [place], [address] EST GFR - AA 14 mL/min Low >60 [facility] Comment on above: Result Comment: Afri can [place] GFR Calc Performed By: #### L 100.0500, L500.2500 #### [facility] [address] [place], [address] GAP 10 Normal 5-15 [facility] Comment on above: Performed By: #### L 100.0500, L500.2500 #### [facility] [address] [place], [address] GFR/1.73 sq M.predicted among non-blacks MDRD (S/P/Bld) [Vol rate/Area] 12 mL/min/{1.73_m2} Low >60 [facility] Comment on above: Result Comment: Non- GFR Calc Performed By: #### L 100.0500, L500.2500 #### [facility] [address] [place], [address] Glucose [Mass/Vol] 94 mg/dL Normal 74-106 [facility] Comment on above: Performed By: #### L 100.0500, L500.2500 #### [facility] [address] [place], [address] Potassium [Moles/Vol] 4.4 mmol/L Normal 3.5-5.1 [facility] Comment on above: Performed By: #### L 100.0500, L500.2500 #### [facility] [address] [place], [address] Sodium [Moles/Vol] 133 mmol/L Low 136-145 [facility] Comment on above: Performed By: #### L 100.0500, L500.2500 #### [facility] [address] [place], [address] Urea nitrogen [Mass/Vol] 42 mg/dL High 7-18 [facility] Comment on above: Performed By: #### L 100.0500, L500.2500 #### [facility] [address] [place], [address] CBC-Complete Blood Cnt No Di ffon 09-10-2024 Erythrocyte distribution width (RBC) [Ratio] 16.5 % High 11.6-14.6 [facility] Comment on above: Performed By: #### L 100.0500, L500.2500 #### [facility] [address] [place], [address] Hematocrit (Bld) [Volume fraction] 33.0 % Low 40-54 [facility] Comment on above: Performed By: #### L 100.0500, L500.2500 #### [facility] [address] [place], [address] Hemoglobin (Bld) [Mass/Vol] 10.9 g/dL Low 13.0-16.5 [facility] Comment on above: Performed By: #### L 100.0500, L500.2500 #### [facility] [address] [place], [address] MCH (RBC) [Entitic mass] 31.1 pg Normal 27.0-32.0 [facility] Comment on above: Performed By: #### L 100.0500, L500.2500 #### [facility] [address] [place], [address] MCHC (RBC) [Mass/Vol] 33.0 g/dL Normal 32-36 [facility] Comment on above: Performed By: #### L 100.0500, L500.2500 #### [facility] [address] [place], [address] MCV (RBC) [Entitic vol] 94.0 fL Normal 80-94 [facility] Comment on above: Performed By: #### L 100.0500, L500.2500 #### [facility] [address] [place], [address] Platelet mean volume (Bld) [Entitic vol] 10.5 fL Normal 6.2-12.0 [facility] Comment on above: Performed By: #### L 100.0500, L500.2500 #### [facility] [address] [place], [address] Platelets (Bld) [#/Vol] 166 10*3/uL Normal 150-450 [facility] Comment on above: Performed By: #### L 100.0500, L500.2500 #### [facility] [address] [place], [address] RBC (Bld) [#/Vol] 3.51 10*6/uL Low 4.6-6.2 [facility] Comment on above: Performed By: #### L 100.0500, L500.2500 #### [facility] [address] [place], [address] RDW SD 56.7 fl High 35.1-43.9 [facility] Comment on above: Performed By: #### L 100.0500, L500.2500 #### [facility] [address] [place], [address] WBC (Bld) [#/Vol] 10.3 10*3/uL Normal 4.4-11.0 [facility] Comment on above: Performed By: #### L 100.0500, L500.2500 #### [facility] [address] [place], [address] Chest PA and Lateralon 09-10 Chest PA and Lateral [facility] Imaging Services [address] [place] [address] Chest PA and Lateral MR#: [id number] Acct: [id number] Name: LUIS MANUEL DURAN Jr. Rep #: [id number] : 1940 M 83 From: Hay Brink PCP: Dr. Julio Licea MD Status: ADM NEW Study: Chest PA and Lateral Date of Exam: 09/10/24 Exam# [id number] Ordering Dr: Tito Henry MD PROCEDURE: CHEST PA AND LATERAL REASON FOR EXAM: Cough. Suspected COPD. TECHNIQUE: Frontal and lateral views of the chest. COMPARISON: AP chest of 07/22/2024. RAD/Chest PA and Lateral IMPRESSION: Lungs are at least mildly hyperinflated, with some increased interstitial markings, suggestive of chronic lung disease. No acute pneumonic process is identified. No pleural effusion or pneumothorax is seen. The cardiomediastinal silhouette is remarkable for a calcified aorta. No evidence of cardiomegaly. Mild to moderate degenerative changes of the thoracic spine are seen. No evidence of acute cardiopulmonary disease. Reading Location: [address] CC: Dr. Julio Licea MD; Dr. 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 Rep #: [id number] : 1940 83 From: Chriss Zayas MD PCP: Dr. Julio Licea MD Status:ADM NEW Location: [facility] [id number] Assessment Plan Assessment/Plan (1) ESRD on hemodialysis: PLAN: On hemodialysis Saturday, Saturday, Saturday. Last dialysis was yesterday. He did have abdominal related complaints for several years now. Previous upper GI endoscopies were negative. CT angiogram reviewed, he has subcritical stenosis and mesenteric vessels. 50% stenosis. Called and spoke to dialysis unit. Will increase dry weight so as to not remove fluids aggressively. Will monitor blood pressure. Goal is to not drop blood pressure significantly. HPI Consult Data Date of Consult: 09/10/24 HPI Narrative Reason for Consultation: ESRD HPI Narrative: LUIS MANUEL DURAN, is a 83 M who presents to the hospital with abdominal pain after dialysis yesterday. He was towards the end of his dialysis yesterday, developed sudden onset abdominal pain, associated hypotension. He has had extensive abdominal pain related issues before. We investigated extensively including endoscopy, colonoscopy. At some point this was attributed to Sensipar which was discontinued. He also had hyperparathyroidism, ended up having a parathyroidectomy. Presented with above complaints. Was found to have mesenteric ischemia, noncritical. Currently feels okay. Appetite has been fair. [facility] Medical History Alcohol use History of renal disease Restless legs History of edema History of stress test Hypertension Anemia History of renal dialysis Wears glasses High cholesterol History of ulceration Gastric reflux Former smoker Hoarseness Chronic cough Cardiology follow-up encounter Ventral incisional hernia without obstruction or gangrene Screening for intestinal cancer Osteopenia determined by x-ray Hyperparathyroidism Recurrent inguinal hernia of right side without obstruction or gangrene Recurrent inguinal hernia TIA (transient ischemic attack) Mild renal insufficiency Esophageal reflux Dyslipidemia Hiatal hernia CKD (chronic kidney disease) stage 3, GFR 30-59 ml/min CAD (coronary artery disease), [place]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 Anemia History of heart attack ( 09/04/14) Hypertension Home Medications ???Medication ???Instructions ???Recorded ???Last Taken ???Type aspirin 81 mg tablet,delayed 81 mg PO DAILY 04/29/18 09/09/24 H istory release (Adult Low Dose Aspirin) nitroglycerin 0.4 mg sublingual 0.4 mg sublingual X1 PRN CHEST SAMMY N 01/12/20 04/12/24 History tablet atorvastatin 40 mg tablet 40 mg PO QHS 11/24/20 09/08/24 His tory pantoprazole 40 mg tablet,delayed 40 mg PO DAILY 01/19/22 09/09/24 History release metoprolol succinate 25 mg 25 mg PO DAILY 12/24/23 09/08/24 H istory tablet,extended release 24 hr calcium acetate(phosphat bind) 667 667 mg PO TIDCM 02/17/24 5 History mg capsule furosemide 40 mg tablet 40 mg PO DAILY 02/23/24 09/09/24 H istory isosorbide mononitrate 30 mg 30 mg PO DAILY 02/23/24 09/08/24 H istory tablet,extended release 24 hr finasteride 5 mg tablet 5 mg PO DAILY 09/09/24 09/09/24 Hi story Allergy/AdvReac Type Severity Reaction Status Date / Time lisinopril AdvReac Other Verified 09/09/24 20:22 Family History Mother Colon cancer Father Colon cancer Myocardial infarction Brother Cancer Surgical History History of arteriovenostomy for renal dialysis ( 01/2022) History of ventral hernia repair Hx of colonoscopy ( 12/17/13) Hx of parathyroidectomy Hx of bilateral inguinal hernia repair Hx of heart artery stent Social History Smoking Status: Former smoker second hand exposure: No alcohol intake: current alcohol intake frequency: a few times a month substance use type: does not use caffeine: Yes what type of physical activity do you participate in: none seatbelt use: always ROS ROS Narrative Negative except above Physical Exam Narrative Alert awake oriented x 3 no obvious distress no pallor no icterus no JVD s1s2 no murmurs lungs clear abdomen soft no organomegaly no edema no cyanosis Lab / Micro Data 09/10/24 05:44 09/10/24 05:44 Labs: Laboratory Results - last 24 hr 09/09/24 12:30: WBC 7.3, RBC 3.53 L, Hgb 10.7 L, Hct 33.2 L, MCV 94.1 H, MCH 30.3, MCHC 32.2, RDW Std Deviation 56.6 H, RDW Coeff of Horacio 16.4 H, Plt Count 187, MPV 10.5, Immature Gran % (Auto) (more content not included)... Normal [facility] Consultation - Surgicalon Consultation - Surgical [facility] Medical Records Department [address] [place] [address] Consultation - Surgical 09/10/24 0859 MR#: [id number] Acct: [id number] Name: LUIS MANUEL DURAN Jr. Rep #: [id number] : 1940 83 From: Olivia COYLE PCP: Dr. 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 His presentation is consistent with nonocclusive mesenteric ischemia related to low flow state/hypotension with dialysis. No indication for vascular surgical intervention at this time. It will be important to avoid hypotension and dehydration as much as possible. HPI Consult Data Date of Consult: 09/10/24 HPI Narrative HPI Narrative: LUIS MANUEL DURAN, is a 83 M who presented to the [facility] ER with significant abdominal pain during/following his dialysis treatment yesterday. He reports the pain was diffuse through his abdomen. Initial CT Abd/Pelvis with contrast reported air within the portal system in the left lobe of the liver, air within the wall of the stomach, and atherosclerotic calcification of the abdominal aorta and its visceral branches; on review of the images, agree but also noted what appeared to be air within the intestinal wall at various sites as well. Patient was fluid resuscitated and administered morphine and his pain did improve significantly; he had stable vitals. Then obtain CTA Abd/Pelvis which showed persistent but improved appearance of the portal system, wall of the stomach, and intestines after fluid administration. On image review with Dr. 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 General surgery was also consulted who did not feel that patient required urgent surgical intervention but that it would be best to admit him and observe overnight. He reports that he does get similar diffuse abdominal pain with most dialysis sessions; he notes that it seems like any time they try to remove more than 2.5 L he has more pain. He also notes his blood pressures tend to be quite low after dialysis sessions too. He admits he does have abdominal pain on nondialysis days as well just not as bad; this pain will typically occur when he has not eaten and seems to improve with eating. This morning, he reports his abdominal pain remains much improved, now just with mild achiness throughout but seems to attribute this mostly to hunger. He has no other complaints. He has been on dialysis for 3 years. He receives dialysis , , Sat at [facility] in [place]. [facility] Medical History Alcohol use History of renal disease Restless legs History of edema History of stress test Hypertension Anemia History of renal dialysis Wears glasses High cholesterol History of ulceration Gastric reflux Former smoker Hoarseness Chronic cough Cardiology follow-up encounter Ventral incisional hernia without obstruction or gangrene Screening for intestinal cancer Osteopenia determined by x-ray Hyperparathyroidism Recurrent inguinal hernia of right side without obstruction or gangrene Recurrent inguinal hernia TIA (transient ischemic attack) Mild renal insufficiency Esophageal reflux Dyslipidemia Hiatal hernia CKD (chronic kidney disease) stage 3, GFR 30-59 ml/min CAD (coronary artery disease), white [place]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 Anemia History of heart attack ( 09/04/14) Hypertension Home Medications ???Medication ???Instructions ???Recorded ???Last Taken ???Type aspirin 81 mg tablet,delayed 81 mg PO DAILY 04/29/18 09/09/24 H istory release (Adult Low Dose Aspirin) nitroglycerin 0.4 mg sublingual 0.4 mg sublingual X1 PRN CHEST SAMMY N 01/12/20 04/12/24 History tablet atorvastatin 40 mg tablet 40 mg PO QHS 11/24/20 09/08/24 His tory pantoprazole 40 mg tablet,delayed 40 mg PO DAILY 01/19/22 09/09/24 History release metoprolol succinate 25 mg 25 mg PO DAILY 12/24/23 09/08/24 H istory tablet,extended release 24 hr calcium acetate(phosphat bind) 667 667 mg PO TIDCM 02/17/24 5 History mg capsule furosemide 40 mg tablet 40 mg PO DAILY 02/23/24 09/09/24 H istory isosorbide mononitrate 30 mg 30 mg PO DAILY 02/23/24 09/08/24 H istory tablet,extended release 24 hr finasteride 5 mg tablet 5 mg PO DAILY 09/09/24 09/09/24 Hi story Allergy/AdvReac Type Severity Reaction Status Date / Time lisinopril AdvReac Other Verified 09/09/24 20:22 Family History Mother Colon cancer Fath (more content not included)... Normal [facility] 12 Lead EKGon 09-09-2024 12 Lead EKG [facility] Cardiovascular Services [address] [place] [address] 12 Lead EKG 09/09/24 1351 MR#: [id number] Acct: [id number] Name: LUIS MANUEL DURAN Jr. Rep #: [id number] : 1940 83 From: Tessa Maria MD Attending Dr: Dr. Tito Henry MD Status: ADM NEW Ordering Dr: Gokul Cao MD Date: 09/09/24 Location: [facility] Sex: M C Admitted: 09/09/24 Test Reason : DIZZY Blood Pressure : */* mmHG Vent. Rate : 77 BPM Atrial Rate : 77 BPM P-R Int : 292 ms QRS Dur : 166 ms QT Int : 472 ms P-R-T Axes : 26 -37 14 degrees QTcB Int : 534 ms Sinus rhythm with 1st degree A-V block Left axis deviation Right bundle branch block Inferior infarct , age undetermined Abnormal ECG Confirmed by JOHNNY WATT, MARGI ([id number]), newspaper editor managing CHARY MONIQUE ([id number]) on 09/10/2024 1:23:51 PM Referred By: Confirmed By: MARGI MARIA MD 09/10/24 1323 Date Tessa Maria MD CC: Dr. Gokul Cao MD; Dr. Julio Licea MD; Dr. Tito Henry MD Signed [facility] Abdomen/Pelvis W IV Cont ONL Yon 09-09-2024 Abdomen/Pelvis W IV Cont ONLY [facility] Imaging Services [address] [place] [address] Abdomen/Pelvis W IV Cont ONLY MR#: [id number] Acct: [id number] Name: LUIS MANUEL DURAN Jr. Rep #: [id number] : 1940 M 83 From: Dieudonne shin MD PCP: Dr. Julio Licea MD Status: [facility] Study: Abdomen/Pelvis W IV Cont ONLY Date of Exam: Exam# [id number] Ordering Dr: Gokul Cao MD EXAM: ABDOMEN/PELVIS W IV CONT ONLY. 100 cc of Isovue-300 was injected intravenously. CLINICAL HISTORY: Chronic abdominal pain for 1 year. Patient is on renal dialysis. Prior ventral hernia repair and bilateral inguinal hernia repair. COMPARISON: None. TECHNIQUE: Multiple axial tomographic images were obtained following intravenous contrast administration. Coronal and sagittal reconstruction was obtained as well. FINDINGS: Minimal increased markings at the lung bases suggestive of atelectasis. Coronary artery calcification. Calcification of the aortic valve. Air is seen within the portal venous system in the left lobe of the liver. There is a 2 point 3 cm by 2.4 cm cyst in the medial aspect of the right lobe of the liver. Smaller cysts are also seen in the right lobe. The gallbladder is unremarkable. The pancreas is unremarkable as well. Small cyst in the lower pole of the spleen. There is gastric wall thickening with findings suggestive of air within the wall of the stomach. Extensive atherosclerotic plaque formation of the aorta and the major visceral branches especially the celiac artery and superior mesenteric artery. I can not exclude a tight stenosis and possible tiny thrombus. Multiple bilateral renal cysts with atrophy of both kidneys. There is evidence of prior ventral hernia repair and left inguinal hernia repair. Prostatic calcification. Multilevel disc space narrowing and disc degeneration and spondylosis. CT/Abdomen/Pelvis W IV Cont ONLY IMPRESSION: Findings suggestive of air in the left lobe of the liver as described and gastric wall thickening with air within the wall. Extensive atherosclerotic calcification of the aorta as well as the major visceral branches as described with possible tight stenosis or possible thrombus. The results were communicated to the attending physician. Reading Location: [facility] CC: Dr. Gokul Cao MD; Dr. 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, [address] Absolute Neut 4.6 X10 3/uL Normal 2.0-7.7 [facility] Comment on above: Performed By: #### L 100.0100, L501.4020, L500.4050 ####[facility] [address] [place], [address] Basophils/100 WBC (Bld) 0.5 % Normal 0-1 [facility] Comment on above: Performed By: #### L 100.0100, L501.4020, L500.4050 ####[facility] [address] [place], [address] Eosinophils/100 WBC (Bld) 4.4 % Normal 0-5 [facility] Comment on above: Performed By: #### L 100.0100, L501.4020, L500.4050 ####[facility] [address] [place], [address] Erythrocyte distribution width (RBC) [Ratio] 16.4 % High 11.6-14.6 [facility] Comment on above: Performed By: #### L 100.0100, L501.4020, L500.4050 ####[facility] [address] [place], [address] Hematocrit (Bld) [Volume fraction] 33.2 % Low 40-54 [facility] Comment on above: Performed By: #### L 100.0100, L501.4020, L500.4050 ####[facility] [address] [place], [address] Hemoglobin (Bld) [Mass/Vol] 10.7 g/dL Low 13.0-16.5 [facility] Comment on above: Performed By: #### L 100.0100, L501.4020, L500.4050 ####[facility] [address] [place], [address] IG% 0.500 Normal 0.0-0.9 [facility] Comment on above: Result Comment: IG% - Immature Granulocytes (promyelocytes, myelocytes and metamyelocytes) > 1% indicates that a LEFT SHIFT is Present. Performed By: #### L 100.0100, L501.4020, L500.4050 ####[facility] [address] [place], [address] Lymphocytes/100 WBC (Bld) 22.6 % Normal 19-41 [facility] Comment on above: Performed By: #### L 100.0100, L501.4020, L500.4050 ####[facility] [address] [place], [address] MCH (RBC) [Entitic mass] 30.3 pg Normal 27.0-32.0 [facility] Comment on above: Performed By: #### L 100.0100, L501.4020, L500.4050 ####[facility] [address] [place], [address] MCHC (RBC) [Mass/Vol] 32.2 g/dL Normal 32-36 [facility] Comment on above: Performed By: #### L 100.0100, L501.4020, L500.4050 ####[facility] [address] [place], [address] MCV (RBC) [Entitic vol] 94.1 fL High 80-94 [facility] Comment on above: Performed By: #### L 100.0100, L501.4020, L500.4050 ####[facility] [address] [place], [address] Monocytes/100 WBC (Bld) 9.7 % Normal 0-10 [facility] Comment on above: Performed By: #### L 100.0100, L501.4020, L500.4050 ####[facility] [address] [place], [address] Neutrophils/100 WBC (Bld) 62.3 % Normal 47-70 [facility] Comment on above: Performed By: #### L 100.0100, L501.4020, L500.4050 ####[facility] [address] [place], [address] Nucleated RBC (Bld) [#/Vol] 0 10*3/uL Normal 0-5 [facility] Comment on above: Performed By: #### L 100.0100, L501.4020, L500.4050 ####[facility] [address] [place], [address] Platelet mean volume (Bld) [Entitic vol] 10.5 fL Normal 6.2-12.0 [facility] Comment on above: Performed By: #### L 100.0100, L501.4020, L500.4050 ####[facility] [address] [place], [address] Platelets (Bld) [#/Vol] 187 10*3/uL Normal 150-450 [facility] Comment on above: Performed By: #### L 100.0100, L501.4020, L500.4050 ####[facility] [address] [place], [address] RBC (Bld) [#/Vol] 3.53 10*6/uL Low 4.6-6.2 [facility] Comment on above: Performed By: #### L 100.0100, L501.4020, L500.4050 ####[facility] [address] [place], [address] RDW SD 56.6 fl High 35.1-43.9 [facility] Comment on above: Performed By: #### L 100.0100, L501.4020, L500.4050 ####[facility] [address] [place], [address] WBC (Bld) [#/Vol] 7.3 10*3/uL Normal 4.4-11.0 [facility] Comment on above: Performed By: #### L 100.0100, L501.4020, L500.4050 ####[facility] [address] [place], [address] CTA Abd/Pelvis W/WO Contrast on 09-09-2024 CTA Abd/Pelvis W/WO Contrast [facility] Imaging Services [address] [place] [address] CTA Abd/Pelvis W/WO Contrast MR#: [id number] Acct: [id number] Name: LUIS MANUEL DURAN . Rep #: [id number] : 1940 M 83 From: Shashank Foss MD PCP: Dr. Julio Licea MD Status: [facility] Study: CTA Abd/Pelvis W/WO Contrast Date of Exam: Exam# [id number] Ordering Dr: Gokul Coa MD PROCEDURE: CTA ABD/PELVIS W/WO CONTRAST REASON FOR EXAM: History of renal disease, dialysis. Bilateral inguinal hernia repairs, ventral hernia repair. Pain; abnormal CT. TECHNIQUE: Abdomen and pelvis CT with intravenous contrast. COMPARISON: 09/09/2024. FINDINGS: Lung bases: Mild bilateral dependent atelectasis. Coronary artery calcifications. Liver: Unchanged left hepatic lobe portal venous gas. Unchanged kidney cyst. Additional subcentimeter hypodense lesions are too small to characterize but likely benign right hepatic lobe calcification which represent prior infection.. Gallbladder: Unremarkable. Spleen: Small splenic cyst. Pancreas: Unremarkable. Adrenals: Unremarkable. Kidneys: Bilateral kidney simple cysts in keeping with chronic kidney disease. Additional subcentimeter hypodense lesions are too small to characterize. Bladder: Urinary bladder wall thickening. Reproductive Organs: Unremarkable. Bowel: Normal caliber on small-bowel. Dense colonic stool. Normal caliber appendix. Redemonstration of gastric wall thickening. Redemonstration of gastric wall air.. Appendix: Normal. Lymph nodes: No suspicious lymph node enlargement. Vasculature: Atherosclerosis of a normal caliber abdominal aorta and its branches.. No dilation. No visualized arterial thrombus. Peritoneum / Retroperitoneum: No ascites. No free air. Bones: Degenerative changes of the spine. CT/CTA Abd/Pelvis W/WO Contrast IMPRESSION: Redemonstration of left hepatic lobe prominent portal venous gas. Redemonstration of gastric wall thickening and flecks of air within the region of the wall. One or more dose reduction techniques were used (e.g., Automated exposure control, adjustment of the mA and/or kV according to patient size, use of iterative reconstruction technique). Reading Location: [id number] CC: Dr. Gokul Cao MD; Dr. Julio Licea MD Counter Supply Worker: Signed Normal [facility] Comprehensive Metabolic Prof ilon 09-09-2024 Albumin [Mass/Vol] 3.2 g/dL Normal 3.2-5.0 [facility] Comment on above: Order Comment: 'TROP ' Serial specimen #1, #2 or #3: 1 Performed By: #### L 100.0100, L501.4020, L500.4050 ####[facility] [address] [place], [address] Albumin/Globulin [Mass ratio] 0.8 {ratio} Low 0.9-2.4 [facility] Comment on above: Order Comment: 'TROP ' Serial specimen #1, #2 or #3: 1 Performed By: #### L 100.0100, L501.4020, L500.4050 ####[facility] [address] [place], [address] ALK P 103 U/L Normal 45-117 [facility] Comment on above: Order Comment: 'TROP ' Serial specimen #1, #2 or #3: 1 Performed By: #### L 100.0100, L501.4020, L500.4050 ####[facility] [address] [place], [address] ALT [Catalytic activity/Vol] 11 U/L Low 16-61 [facility] Comment on above: Order Comment: 'TROP ' Serial specimen #1, #2 or #3: 1 Performed By: #### L 100.0100, L501.4020, L500.4050 ####[facility] [address] [place], [address] AST [Catalytic activity/Vol] 18 U/L Normal 15-37 [facility] Comment on above: Order Comment: 'TROP ' Serial specimen #1, #2 or #3: 1 Performed By: #### L 100.0100, L501.4020, L500.4050 ####[facility] [address] [place], [address] Bilirubin [Mass/Vol] 0.60 mg/dL Normal 0.20-1.00 [facility] Comment on above: Order Comment: 'TROP ' Serial specimen #1, #2 or #3: 1 Result Comment: For patients on eltrombopag therapy, use of Dimension [place] TBIL is not recommended. Performed By: #### L 100.0100, L501.4020, L500.4050 ####[facility] [address] [place], [address] BUN/CRE 5.8 RATIO Low 10-20 [facility] Comment on above: Order Comment: 'TROP ' Serial specimen #1, #2 or #3: 1 Performed By: #### L 100.0100, L501.4020, L500.4050 ####[facility] [address] [place], [address] CA,Total 8.5 mg/dL Normal 8.5-10.1 [facility] Comment on above: Order Comment: 'TROP ' Serial specimen #1, #2 or #3: 1 Performed By: #### L 100.0100, L501.4020, L500.4050 ####[facility] [address] [place], [address] Chloride [Moles/Vol] 97 mmol/L Low 98-107 [facility] Comment on above: Order Comment: 'TROP ' Serial specimen #1, #2 or #3: 1 Performed By: #### L 100.0100, L501.4020, L500.4050 ####[facility] [address] [place], [address] CO2 [Moles/Vol] 31.0 mmol/L Normal 21.0-32.0 [facility] Comment on above: Order Comment: 'TROP ' Serial specimen #1, #2 or #3: 1 Performed By: #### L 100.0100, L501.4020, L500.4050 ####[facility] [address] [place], [address] Creatinine [Mass/Vol] 3.25 mg/dL High 0.70-1.30 [facility] Comment on above: Order Comment: 'TROP ' Serial specimen #1, #2 or #3: 1 Result Comment: The validity of the calculated GFR GFRAA in patients over 70 years has not been determined. Clinical correlation is essential. Performed By: #### L 100.0100, L501.4020, L500.4050 ####[facility] [address] [place], [address] ECRCL 9.04 ml/min Normal [facility] Comment on above: Order Comment: 'TROP ' Serial specimen #1, #2 or #3: 1 Performed By: #### L 100.0100, L501.4020, L500.4050 ####[facility] [address] [place], [address] EST GFR - AA 24 mL/min Low >60 [facility] Comment on above: Order Comment: 'TROP ' Serial specimen #1, #2 or #3: 1 Result Comment: Afri can [place] GFR Calc Performed By: #### L 100.0100, L501.4020, L500.4050 ####[facility] [address] [place], [address] GAP 9 Normal 5-15 [facility] Comment on above: Order Comment: 'TROP ' Serial specimen #1, #2 or #3: 1 Performed By: #### L 100.0100, L501.4020, L500.4050 ####[facility] [address] [place], [address] GFR/1.73 sq M.predicted among non-blacks MDRD (S/P/Bld) [Vol rate/Area] 20 mL/min/{1.73_m2} Low >60 [facility] Comment on above: Order Comment: 'TROP ' Serial specimen #1, #2 or #3: 1 Result Comment: Non- GFR Calc Performed By: #### L 100.0100, L501.4020, L500.4050 ####[facility] [address] [place], [address] Globulin (S) [Mass/Vol] 3.8 g/dL Normal 2.2-4.2 [facility] Comment on above: Order Comment: 'TROP ' Serial specimen #1, #2 or #3: 1 Performed By: #### L 100.0100, L501.4020, L500.4050 ####[facility] [address] [place], [address] Glucose [Mass/Vol] 128 mg/dL High 74-106 [facility] Comment on above: Order Comment: 'TROP ' Serial specimen #1, #2 or #3: 1 Result Comment: Fast ing Glucose result greater than or equal to 126 mg/dL suggests DIABETES MELLITUS per A.D.A. criteria. Performed By: #### L 100.0100, L501.4020, L500.4050 ####[facility] [address] [place], [address] Potassium [Moles/Vol] 3.4 mmol/L Low 3.5-5.1 [facility] Comment on above: Order Comment: 'TROP ' Serial specimen #1, #2 or #3: 1 Performed By: #### L 100.0100, L501.4020, L500.4050 ####[facility] [address] [place], [address] Sodium [Moles/Vol] 137 mmol/L Normal 136-145 [facility] Comment on above: Order Comment: 'TROP ' Serial specimen #1, #2 or #3: 1 Performed By: #### L 100.0100, L501.4020, L500.4050 ####[facility] [address] [place], [address] T PROT 7.0 g/dL Normal 6.4-8.2 [facility] Comment on above: Order Comment: 'TROP ' Serial specimen #1, #2 or #3: 1 Performed By: #### L 100.0100, L501.4020, L500.4050 ####[facility] [address] [place], [address] Urea nitrogen [Mass/Vol] 19 mg/dL High 7-18 [facility] Comment on above: Order Comment: 'TROP ' Serial specimen #1, #2 or #3: 1 Performed By: #### L 100.0100, L501.4020, L500.4050 ####[facility] [address], [address] Consultation - Surgicalon Consultation - Surgical [facility] Medical Records Department [address] [place] [address] Consultation - Surgical 09/09/241955 MR#: [id number] Acct: [id number] Name: LUIS MANUEL DURAN Jr. Rep #: [id number] : 1940 83 From: Chacha Ryder MD PCP: Dr. Julio Licea MD Status:ADM NEW Location: [place] [address] Assessment Plan Assessment/Plan (1) Nonocclusive mesenteric ischemia: PLAN: Plan Pt currently has no abd pain, normal WBC/no shift, normal lactic acid. Did review CT a/p showing portal venous gas, which is concerning however, this may be from transient chronic issue (as pain has been on going for about 1 year, but worse today) maybe related to hypovolemia related to dialysis. No current plans for acute surgical intervention, recommend avoiding hypotension. Chacha Ryder M.D. Pager: [phone] [facility] [address] [place] [address], [facility], [address] [place] [address] Office: [phone] HPI Consult Data Date of Consult: 09/10/24 HPI Narrative HPI Narrative: LUIS MANUEL DURAN, is a 83 M who presents to the ER due to increased abdominal pain. Patient states occurs in the mid abdomen was a 9/10 when he came to the ER. Patient was finishing dialysis when this started. Patient states he had blood pressure systolically in the 80s and they did give back fluid as well at dialysis but per patient his that did not help his blood pressure. Patient had a CT abdomen pelvis which did show portal venous gas as well as some questionable pneumatosis in the wall of the stomach. Patient states he has had mid abdominal pain off and off for a year does seem to happen towards the end of dialysis and occasionally other times not really related to anything. Patient also had a CTA of the abdomen pelvis which vascular surgery did not feel there is a any role for intervention for possible chronic mesenteric ischemia as the vessels were patent. Question if the portal venous gas was due to hypovolemia/low-flow state. Currently patient has no abdominal pain denies any nausea or vomiting. [facility] Medical History Alcohol use History of renal disease Restless legs History of edema History of stress test Hypertension Anemia History of renal dialysis Wears glasses High cholesterol History of ulceration Gastric reflux Former smoker Hoarseness Chronic cough Cardiology follow-up encounter Ventral incisional hernia without obstruction or gangrene Screening for intestinal cancer Osteopenia determined by x-ray Hyperparathyroidism Recurrent inguinal hernia of right side without obstruction or gangrene Recurrent inguinal hernia TIA (transient ischemic attack) Mild renal insufficiency Esophageal reflux Dyslipidemia Hiatal hernia CKD (chronic kidney disease) stage 3, GFR 30-59 ml/min CAD (coronary artery disease), [place]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 Anemia History of heart attack ( 09/04/14) Hypertension Home Medications ???Medication ???Instructions ???Recorded ???Last Taken ???Type aspirin 81 mg tablet,delayed 81 mg PO DAILY 04/29/18 09/09/24 H istory release (Adult Low Dose Aspirin) nitroglycerin 0.4 mg sublingual 0.4 mg sublingual X1 PRN CHEST SAMMY N 01/12/20 04/12/24 History tablet atorvastatin 40 mg tablet 40 mg PO QHS 11/24/20 09/08/24 His tory pantoprazole 40 mg tablet,delayed 40 mg PO DAILY 01/19/22 09/09/24 History release metoprolol succinate 25 mg 25 mg PO DAILY 12/24/23 09/08/24 H istory tablet,extended release 24 hr calcium acetate(phosphat bind) 667 667 mg PO TIDCM 02/17/24 5 History mg capsule furosemide 40 mg tablet 40 mg PO DAILY 02/23/24 09/09/24 H istory isosorbide mononitrate 30 mg 30 mg PO DAILY 02/23/24 09/08/24 H istory tablet,extended release 24 hr finasteride 5 mg tablet 5 mg PO DAILY 09/09/24 09/09/24 Hi story Allergy/AdvReac Type Severity Reaction Status Date / Time lisinopril AdvReac Other Verified 09/09/24 20:22 Family History Mother Colon cancer Father Colon cancer Myocardial infarction Brother Cancer Surgical History History of arteriovenostomy for renal dialysis ( 01/2022) History of ventral hernia repair Hx of colonoscopy ( 12/17/13) Hx of parathyroidectomy Hx of bilateral inguinal hernia repair Hx of heart artery stent Social History Smoking Status: Former smoker second hand exposure: No alcohol intake: current alcohol intake frequency: a few times a month substance use type: does not use caffeine: Yes what type of physical activity do you participate in: none seatbelt use: always ROS Const (more content not included)... Normal [facility] Emergency Department Summary on 09-09-2024 Emergency Department Summary [facility] Medical Records Department [address] [place] [address] Emergency Department Summary 09/09/24 MR#: [id number] Acct: [id number] Name: LUIS MANUEL DURAN Jr. Rep #: [id number] : 1940 83 From: Gokul Cao MD PCP: Dr. Julio Licea MD Status:REG ER Location: ED HPI HPI - GI History of Present Illness Chief Complaint: Abd Pain Informant: patient, spouse/S.O. and EMS Narrative Narrative: 83-year-old male sent from dialysis because of hypotension and diffuse abdominal pain, nausea. His blood pressure is normal now. Did not finish dialysis, did not take a lot of fluid off according to the , they put some back pain when he was having this before sending him. The states he has the abdominal pain and nausea every single day for the past year, and they cannot figure out why he is having this. He has had a scope that apparently was unremarkable. She does not recall him having had a CT scan. He gets it commonly at dialysis but also has it at home when he is not at dialysis from time to time, often after meals. Right now he states he is very nauseated. He has a chronic cough, has an appointment with a spinning room worker Dr. Samayoa in the [place], from October; he has never seen pulmonology in the past. Sometimes he coughs and has posttussive emesis. No blood or bilious emesis in the past. [facility] Medical History Alcohol use History of renal disease Restless legs History of edema History of stress test Hypertension Anemia History of renal dialysis Wears glasses High cholesterol History of ulceration Gastric reflux Former smoker Hoarseness Chronic cough Cardiology follow-up encounter Ventral incisional hernia without obstruction or gangrene Screening for intestinal cancer Osteopenia determined by x-ray Hyperparathyroidism Recurrent inguinal hernia of right side without obstruction or gangrene Recurrent inguinal hernia TIA (transient ischemic attack) Mild renal insufficiency Esophageal reflux Dyslipidemia Hiatal hernia CKD (chronic kidney disease) stage 3, GFR 30-59 ml/min CAD (coronary artery disease), [place]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 Anemia History of heart attack ( 09/04/14) Hypertension Home Medications ???Medication ???Instructions ???Recorded ???Last Taken ???Type aspirin 81 mg tablet,delayed 81 mg PO DAILY 04/29/18 05/20/18 07:00 History release (Adult Low Dose Aspirin) nitroglycerin 0.4 mg sublingual 0.4 mg sublingual X1 PRN CHEST PAIN 01/12/20 Unknown History tablet atorvastatin 40 mg tablet 40 mg PO QHS 11/24/20 Unknown History pantoprazole 40 mg tablet,delayed 40 mg PO DAILY 01/19/22 02/08/22 06:30 History release metoprolol succinate 25 mg 25 mg PO DAILY 12/24/23 Unknown History tablet,extended release 24 hr calcium acetate(phosphat bind) 667 667 mg PO TIDCM 02/17/24 Unknown History mg capsule amlodipine 5 mg tablet 5 mg PO DAILY 02/23/24 Unknown History furosemide 40 mg tablet 40 mg PO DAILY 02/23/24 Unknown History isosorbide mononitrate 30 mg 30 mg PO DAILY 02/23/24 Unknown History tablet,extended release 24 hr Allergy/AdvReac Type Severity Reaction Status Date / Time lisinopril AdvReac Other Verified 09/09/24 12:28 Family History Mother Colon cancer Father Colon cancer Myocardial infarction Brother Cancer Surgical History History of arteriovenostomy for renal dialysis ( 01/2022) History of ventral hernia repair Hx of colonoscopy ( 12/17/13) Hx of parathyroidectomy Hx of bilateral inguinal hernia repair Hx of heart artery stent Social History Smoking Status: Former smoker second hand exposure: No alcohol intake: current alcohol intake frequency: a few times a month substance use type: does not use caffeine: Yes what type of physical activity do you participate in: none seatbelt use: always ROS ROS ED Constitutional Constitutional ED: Reports malaise; Denies chills or fever(s) Eyes Eyes: Denies change in vision or diplopia ENT ENT ED: Denies rhinorrhea or sore throat Cardiovascular Cardiovascular: Denies chest pain or palpitations Respiratory/Chest Respiratory/Chest: Denies cough or dyspnea Gastrointestinal Gastrointestinal: Reports abdominal pain and nausea; Denies diarrhea or vomiting Musculoskeletal Musculoskeletal: Denies back pain or neck pain Integumentary Denies abscess or rash Neurologic Neurologic: Denies headache(s), paresthesias or weakness EXAM Physical Exam Const Vital Signs: 09/09/24 12:25 09/09/24 14:24 09/09/24 16:00 Temperature 97.8 F Temperature Sour (more content not included)... Normal [facility] H AND P Exam - Hospitaliston 09-09-2024 H&P Exam - Hospitalist [facility] Medical Records Department [address] [place] [address] H P Exam - Hospitalist 09/09/24 1732 MR#: [id number] Acct: [id number] Name: LUIS MANUEL DURAN Jr. Rep #: [id number] : 1940 83 From: Yg Carrasco DO PCP: Dr. Julio Licea MD Status:ADM NEW Location: [place] [address] HPI - General General Date of Admission: 09/09/24 Date of Service: 09/09/24 Chief Complaint: Intermittent abdominal pain with nausea HPI Narrative LUIS MANUEL DURAN, is a 83 M who presented to [facility] ED on 09/09/2024 with intermittent abdominal pain with nausea. Patient has history of ESRD on HD. For the past several dialysis sessions, patient has developed abdominal pain during dialysis and blood pressures recorded at those times are borderline low. He had this occur today and was given some fluid back with only mild improvement. He is also had abdominal pain with nausea intermittently with meals. Because of these things, he came to the ED today for further evaluation. In the ED patient was hemodynamically stable on room air. CBC was unremarkable. BMP showed normal electrolytes, other findings consistent with ESRD. CT abdomen pelvis with IV contrast showed extensive atherosclerotic plaque formation of the aorta and major visceral branches especially the celiac artery and superior mesenteric artery; also showed air in the portal venous system and left lobe of the liver, along with gastric wall thickening suggestive of air within the wall of the stomach. Case was discussed with general surgery who noted that patient had no abdominal pain, normal WBC count and normal lactic acid so no need for intervention at this time. Was also discussed with vascular surgery who recommended CTA abdomen pelvis for further evaluation. CTA showed atherosclerosis of a normal caliber abdominal aorta and its branches with no dilation and no arterial thrombus. Vascular surgery noted no need for intervention at this time. However, given all of these findings, hospitalist was contacted for admission. I saw the patient at bedside in the ED, was present. Patient was sitting up comfortably in bed, conversing normally, in no acute distress. Noted that his nausea was much improved from previous and he had very mild abdominal pain currently. He denied any lightheadedness or dizziness. Denies feeling dry on exam. No other acute concerns at this time. [facility] Medical History Alcohol use History of renal disease Restless legs History of edema History of stress test Hypertension Anemia History of renal dialysis Wears glasses High cholesterol History of ulceration Gastric reflux Former smoker Hoarseness Chronic cough Cardiology follow-up encounter Ventral incisional hernia without obstruction or gangrene Screening for intestinal cancer Osteopenia determined by x-ray Hyperparathyroidism Recurrent inguinal hernia of right side without obstruction or gangrene Recurrent inguinal hernia TIA (transient ischemic attack) Mild renal insufficiency Esophageal reflux Dyslipidemia Hiatal hernia CKD (chronic kidney disease) stage 3, GFR 30-59 ml/min CAD (coronary artery disease), [place]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 Anemia History of heart attack ( 09/04/14) Hypertension Home Medications ???Medication ???Instructions ???Recorded ???Last Taken ???Type aspirin 81 mg tablet,delayed 81 mg PO DAILY 04/29/18 09/09/24 History release (Adult Low Dose Aspirin) nitroglycerin 0.4 mg sublingual 0.4 mg sublingual X1 PRN CHEST PAIN 01/12/20 04/12/24 History tablet atorvastatin 40 mg tablet 40 mg PO QHS 11/24/20 09/08/24 History pantoprazole 40 mg tablet,delayed 40 mg PO DAILY 01/19/22 09/09/24 History release metoprolol succinate 25 mg 25 mg PO DAILY 12/24/23 09/08/24 History tablet,extended release 24 hr calcium acetate(phosphat bind) 667 667 mg PO TIDCM 02/17/24 09/09/24 History mg capsule furosemide 40 mg tablet 40 mg PO DAILY 02/23/24 09/09/24 History isosorbide mononitrate 30 mg 30 mg PO DAILY 02/23/24 09/08/24 History tablet,extended release 24 hr finasteride 5 mg tablet 5 mg PO DAILY 09/09/24 09/09/24 History Allergy/AdvReac Type Severity Reaction Status Date / Time lisinopril AdvReac Other Verified 09/09/24 20:22 Family History Mother Colon cancer Father Colon cancer Myocardial infarction Brother Cancer Surgical History History of arteriovenostomy for renal dialysis ( 01/2022) History of ventral hernia repair Hx of colonoscopy ( 12/17/13) Hx of parathyroidectomy Hx of bilateral inguinal hernia repair Hx of heart artery stent Social History ... Normal [facility] L501.4020on 09-09-2024 TROPONIN-I HS 37 pg/mL Normal 3.0-78.0 [facility] Comment on above: Order Comment: 'TROP ' Serial specimen #1, #2 or #3: 1 Result Comment: Plea se Note: New Test Units and Gender Specific Reference Ranges. For more information see Policy Stat Procedure [place] High Sensitivity Troponin (TNIH) and attachments. Performed By: #### L 100.0100, L501.4020, L500.4050 ####[facility] [address] [place], [address] Lactic Acidon 09-09-2024 Lactate [Moles/Vol] 1.2 mmol/L Normal 0.4-1.9 [facility] Comment on above: Order Comment: Y Performed By: #### L 503.8688 ####[facility] [address] [place], [place], [id number] Partial Thromboplast Timeon 09-09-2024 aPTT Coag (Bld) [Time] 35.3 s Normal 24.1-36.2 [facility] Comment on above: Performed By: #### L 300.4310, L300.3900 ####[facility] [address] [place], [place], [id number] Prothrombin Time w/INRon INR Coag (PPP) [Relative time] 1.1 {INR} Normal [facility] Comment on above: Performed By: #### L 300.4310, L300.3900 ####[facility] [address] [place], [place], [address] PT Coag (PPP) [Time] 14.5 s Normal 11.7-14.9 [facility] Comment on above: Performed By: #### L 300.4310, L300.3900 ####[facility] [address] [place], [place], [id number] CNPNon 08-24-2024 [facility] Telephone [facility] LUIS MANUEL DURAN JR ([id number]) 1940 M Date Time Provider Department 08/24/24 FRANCIS IRIZARRY [facility] During your visit today, we recorded the following information about you: Francis Irizarry MA 08/24/2024 2:55 PM Signed Received fax from [facility] requesting O/V results/demo Faxed. Francis Irizarry MA Allergies As of Date: 08/24/2024 Noted Allergy Reaction AXID (NIZATIDINE) 07/31/2005 16 - Unknown ENTEX PSE (PSEUDOEPHEDRINE-GUAIFE* 16 - Unknown LISINOPRIL 11/22/2010 3 - Cough Date Reviewed: 07/06/2024 Reviewed by: Trevin Bermeo MA - Fully Assessed Reason for Visit: Patient Update [1234] Prescriptions as of 08/24/2024 - finasteride (PROSCAR) 5 mg tablet Take 5 mg by mouth once daily. - furosemide (LASIX) 80 mg tablet Take 0.5 tablets by mouth once daily. Per Cardio, Marc - metoprolol tartrate, short acting, (LOPRESSOR) 50 mg tablet Take 0.5 tablets by mouth once daily. - lansoprazole (PREVACID) 30 mg capsule Take 1 capsule by mouth once daily. - calcium acetate,phosphat bind, (PHOSLO) 667 mg capsule - clopidogrel (PLAVIX) 75 mg tablet Take 1 tablet by mouth every afternoon. - atorvastatin (LIPITOR) 40 mg tablet Take 1 tablet by mouth once daily. For cholesterol. - calcium citrate (CALCITRATE) 200 mg (950 mg) tab Take 1 tablet by mouth four times daily. - acetaminophen (TYLENOL EXTRA STRENGTH) 500 mg tablet Take 2 tablets by mouth every 6 hours as needed for pain. - nitroglycerin sublingual (NITROSTAT) 0.4 mg SL tablet Dissolve 1 tablet under the tongue every 5 minutes as needed. - aspirin, enteric coated (ASPIRIN, ENTERIC COATED) 81 mg EC tablet Take 1 tablet by mouth once daily. 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 Esophagitis, unspecified [K20.90] 10/19/2008 10/15/2013 Benign essential tremor [G25.0] 07/03/2010 Mixed hyperlipidemia [E78.2] 09/03/2013 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 deficiency*10/15/2013 03/04/2017 Vitamin D deficiency [E55.9] 10/15/2013 Anemia of chronic disease [D63.8] 10/15/2013 Parathyroid adenoma [D35.1] 10/15/2013 12/24/2014 Primary hyperparathyroidism (HCC) [E21.0] 03/04/2017 Parathyroid adenoma [D35.1] 03/04/2017 06/03/2020 CKD (chronic kidney disease) stage 4, GFR 15-29*03/04/2017 Coronary artery disease involving [place] foster*03/06/2018 History of non-ST elevation myocardial infarcti*03/06/2018 Elevated PSA [R97.20] 03/11/2019 Medicare annual wellness visit, subsequent [Z00*12/26/2020 Family history of malignant neoplasm of gastroi* Ex-smoker [Z87.891] 12/26/2020 History of COVID-19 [Z86.16] 05/29/2021 Mild aortic stenosis [I35.0] 11/27/2021 Living will on file [SCM8633] 12/15/2021 Advance directive discussed with patient [Z71.8*12/15/2021 Chronic diastolic congestive heart failure (HCC*12/15/2021 Medication management [Z79.899] 02/22/2022 ESRD (end stage renal disease) on dialysis (HCC*07/11/2023 Elevated alkaline phosphatase level [R74.8] 09/24/2023 Hiatal hernia [K44.9] 06/11/2024 Encounter Status:Closed by FRANCIS IRIZARRY on 08/24/24 Normal [facility] Respiratory Cultureon 2023 RESPC Mixed normal respira tory fatoumata. No Haemophilus, Streptococcus pneumoniae, beta-hemolytic Streptococcus or Staphylococcus aureus isolated. Normal [facility] Comment on above: Performed By: #### M 100.2400, M1.1999 ####[facility] [address] [place], [place], [address] Gram Stainon 07-26-2024 GS Acceptable Specimen? Yes (<25 Epithelial cells per/lpf) Gram Stain 4+ Gram positive cocci Rare Hyphae 1+ White Blood Cells 1+ Epithelial cells Normal [facility] Comment on above: Performed By: #### M 100.2400, M100.1999 ####[facility] [address] [place], [place], [address] 12 Lead EKGon 07-22-2024 12 Lead EKG [facility] Cardiovascular Services [address] [place] [address] 12 Lead EKG 07/22/24 1355 MR#: [id number] Acct: [id number] Name: LUIS MANUEL DURAN Jr. Rep #: [id number] : 1940 83 From: Tessa Maria MD Attending Dr: Status: DEP ER Ordering Dr: Jaylene Manuel DO Date: 07/22/24 Location: ED Sex: M C Admitted: Test Reason : CP Blood Pressure : */* mmHG Vent. Rate : 63 BPM Atrial Rate : 63 BPM P-R Int : 228 ms QRS Dur : 158 ms QT Int : 494 ms P-R-T Axes : 12 -30 -1 degrees QTcB Int : 505 ms Sinus rhythm with 1st degree A-V block Left axis deviation Right bundle branch block Abnormal ECG Confirmed by JOHNNY WATT, MARGI ([id number]), newspaper editor managing ANAHI LOO ([id number]) on 07/29/2024 2:10:23 PM Referred By: Confirmed By: MARGI MARIA MD 07/29/24 1410 Date Tessa Maria MD CC: Dr. Jaylene Manuel DO; Dr. Julio Licea MD Signed Normal [facility] Basic Metabolic Profile (BMP )on 07-22-2024 BUN/CRE 5.9 RATIO Low 10-20 [facility] Comment on above: Order Comment: BLUE W. PREVIOUS SPECIMEN REJECTED DUE TO HEMOLYSIS. 07/22/24 1346 1 Y Performed By: #### L 501.5425, L500.2500, L100.0100 #### [facility] [address] [place], [place], [address] CA,Total 8.9 mg/dL Normal 8.5-10.1 [facility] Comment on above: Order Comment: REDRA W. PREVIOUS SPECIMEN REJECTED DUE TO HEMOLYSIS. 07/22/241345 1 Y Performed By: #### L 501.5425, L500.2500, L100.0100 #### [facility] [address] [place], [address] Chloride [Moles/Vol] 96 mmol/L Low 98-107 [facility] Comment on above: Order Comment: REDRA W. PREVIOUS SPECIMEN REJECTED DUE TO HEMOLYSIS. 07/22/241345 1 Y Performed By: #### L 501.5425, L500.2500, L100.0100 #### [facility] [address] [place], [address] CO2 [Moles/Vol] 34.0 mmol/L High 21.0-32.0 [facility] Comment on above: Order Comment: REDRA W. PREVIOUS SPECIMEN REJECTED DUE TO HEMOLYSIS. 07/22/241345 1 Y Performed By: #### L 501.5425, L500.2500, L100.0100 #### [facility] [address] [place], [address] Creatinine [Mass/Vol] 3.54 mg/dL High 0.70-1.30 [facility] Comment on above: Order Comment: REDRA W. PREVIOUS SPECIMEN REJECTED DUE TO HEMOLYSIS. 07/22/241345 1 Y Result Comment: The validity of the calculated GFR GFRAA in patients over 70 years has not been determined. Clinical correlation is essential. Performed By: #### L 501.5425, L500.2500, L100.0100 #### [facility] [address] [place], [address] ECRCL 15.04 ml/min Normal [facility] Comment on above: Order Comment: REDRA W. PREVIOUS SPECIMEN REJECTED DUE TO HEMOLYSIS. 07/22/241345 1 Y Performed By: #### L 501.5425, L500.2500, L100.0100 #### [facility] [address] [place], [address] EST GFR - AA 21 mL/min Low >60 [facility] Comment on above: Order Comment: REDRA W. PREVIOUS SPECIMEN REJECTED DUE TO HEMOLYSIS. 07/22/241345 1 Y Result Comment: Afri can [place] GFR Calc Performed By: #### L 501.5425, L500.2500, L100.0100 #### [facility] [address] [place], [address] GAP 7 Normal 5-15 [facility] Comment on above: Order Comment: REDRA W. PREVIOUS SPECIMEN REJECTED DUE TO HEMOLYSIS. 07/22/241345 1 Y Performed By: #### L 501.5425, L500.2500, L100.0100 #### [facility] [address] [place], [address] GFR/1.73 sq M.predicted among non-blacks MDRD (S/P/Bld) [Vol rate/Area] 18 mL/min/{1.73_m2} Low >60 [facility] Comment on above: Order Comment: REDRA W. PREVIOUS SPECIMEN REJECTED DUE TO HEMOLYSIS. 07/22/241345 1 Y Result Comment: Non- GFR Calc Performed By: #### L 501.5425, L500.2500, L100.0100 #### [facility] [address] [place], [address] Glucose [Mass/Vol] 108 mg/dL High 74-106 [facility] Comment on above: Order Comment: REDRA W. PREVIOUS SPECIMEN REJECTED DUE TO HEMOLYSIS. 07/22/241345 1 Y Result Comment: Fast ing Glucose result from 100 to 125 mg/dL suggests IMPAIRED HOMEOSTASIS per A.D.A. criteria. Performed By: #### L 501.5425, L500.2500, L100.0100 #### [facility] [address] [place], [address] Potassium [Moles/Vol] 3.9 mmol/L Normal 3.5-5.1 [facility] Comment on above: Order Comment: REDRA W. PREVIOUS SPECIMEN REJECTED DUE TO HEMOLYSIS. 07/22/246 1 Y Performed By: #### L 501.5425, L500.2500, L100.0100 #### [facility] [address] [place], [address] Sodium [Moles/Vol] 137 mmol/L Normal 136-145 [facility] Comment on above: Order Comment: REDRA W. PREVIOUS SPECIMEN REJECTED DUE TO HEMOLYSIS. 07/22/241345 1 Y Performed By: #### L 501.5425, L500.2500, L100.0100 #### [facility] [address] [place], [address] Urea nitrogen [Mass/Vol] 21 mg/dL High 7-18 [facility] Comment on above: Order Comment: REDRA W. PREVIOUS SPECIMEN REJECTED DUE TO HEMOLYSIS. 07/22/241345 1 Y Performed By: #### L 501.5425, L500.2500, L100.0100 #### [facility] [address] [place], [address] BUN Normal - [facility] Comment on above: Order Comment: 1Y Result Comment: This specimen has been REJECTED due to Laboratory criteria: Hemolyzed/QNS. CRISELDA has been notified of need of recollection. 07/22/241344 Camryn Clapper Performed By: #### L 100.0100, L500.2500 ####[facility] [address] [place], [address] BUN/CRE Normal 10-20 [facility] Comment on above: Order Comment: 1Y Result Comment: This specimen has been REJECTED due to Laboratory criteria: Hemolyzed/QNS. CRISELDA has been notified of need of recollection. 07/22/241344 Camryn Clapper Performed By: #### L 100.0100, L500.2500 ####[facility] [address] [place], [address] CA,Total Normal 8.5-10.1 [facility] Comment on above: Order Comment: 1Y Result Comment: This specimen has been REJECTED due to Laboratory criteria: Hemolyzed/QNS. CRISELDA has been notified of need of recollection. 07/22/24 1345 Camryn Clapper Performed By: #### L 100.0100, L500.2500 ####[facility] [address] [place], [address] CL Normal 98-107 [facility] Comment on above: Order Comment: 1Y Result Comment: This specimen has been REJECTED due to Laboratory criteria: Hemolyzed/QNS. CRISELDA has been notified of need of recollection. 07/22/24 1345 Camryn Clapper Performed By: #### L 100.0100, L500.2500 ####[facility] [address] [place], [address] CO2 Normal 21.0-32.0 [facility] Comment on above: Order Comment: 1Y Result Comment: This specimen has been REJECTED due to Laboratory criteria: Hemolyzed/QNS. CRISELDA has been notified of need of recollection. 07/22/24 1345 Camryn Clapper Performed By: #### L 100.0100, L500.2500 ####[facility] [address] [place], [address] CREAT,SERUM Normal 0.70-1.30 [facility] Comment on above: Order Comment: 1Y Result Comment: This specimen has been REJECTED due to Laboratory criteria: Hemolyzed/QNS. CRISELDA has been notified of need of recollection. 07/22/24 1345 Camryn Clapper Performed By: #### L 100.0100, L500.2500 ####[facility] [address] [place], [address] EST GFR Normal >60 [facility] Comment on above: Order Comment: 1Y Result Comment: This specimen has been REJECTED due to Laboratory criteria: Hemolyzed/QNS. CRISELDA has been notified of need of recollection. 07/22/24 1345 Camryn Clapper Performed By: #### L 100.0100, L500.2500 ####[facility] [address] [place], [address] EST GFR - AA Normal >60 [facility] Comment on above: Order Comment: 1Y Result Comment: This specimen has been REJECTED due to Laboratory criteria: Hemolyzed/QNS. CRISELDA has been notified of need of recollection. 07/22/24 1345 Camryn Clapper Performed By: #### L 100.0100, L500.2500 ####[facility] [address] [place], [address] GAP Normal 5-15 [facility] Comment on above: Order Comment: 1Y Result Comment: This specimen has been REJECTED due to Laboratory criteria: Hemolyzed/QNS. CRISELDA has been notified of need of recollection. 07/22/24 1345 Camryn Clapper Performed By: #### L 100.0100, L500.2500 ####[facility] [address] [place], [address] GLU Normal 74-106 [facility] Comment on above: Order Comment: 1Y Result Comment: This specimen has been REJECTED due to Laboratory criteria: Hemolyzed/QNS. CRISELDA has been notified of need of recollection. 07/22/24 1345 Camryn Clapper Performed By: #### L 100.0100, L500.2500 ####[facility] [address] [place], [address] Potassium Normal 3.5-5.1 [facility] Comment on above: Order Comment: 1Y Result Comment: This specimen has been REJECTED due to Laboratory criteria: Hemolyzed/QNS. CRISELDA has been notified of need of recollection. 07/22/24 1345 Camryn Clapper Performed By: #### L 100.0100, L500.2500 ####[facility] [address] [place], [address] Basic Metabolic Profile (BMP) Normal 136-145 [facility] Comment on above: Order Comment: 1Y Result Comment: This specimen has been REJECTED due to Laboratory criteria: Hemolyzed/QNS. CRISELDA has been notified of need of recollection. 07/22/24 1345 Camryn Stubbs Performed By: #### L 100.0100, L500.2500 ####[facility] [address] [place], [address] CBC W/Diff, Automatedon 07-12 Absolute Lymph 0.93 X10 3/uL Normal 0.83-4.51 [facility] Comment on above: Order Comment: REDRA W. PREVIOUS SPECIMEN REJECTED DUE TO CLOTTED. 07/22/24 1346 Performed By: #### L 501.5425, L500.2500, L100.0100 #### [facility] [address] [place], [address] Absolute Neut 6.1 X10 3/uL Normal 2.0-7.7 [facility] Comment on above: Order Comment: REDRA W. PREVIOUS SPECIMEN REJECTED DUE TO CLOTTED. 07/22/24 1346 Performed By: #### L 501.5425, L500.2500, L100.0100 #### [facility] [address] [place], [address] Basophils/100 WBC (Bld) 0.4 % Normal 0-1 [facility] Comment on above: Order Comment: REDRA W. PREVIOUS SPECIMEN REJECTED DUE TO CLOTTED. 07/22/24 1346 Performed By: #### L 501.5425, L500.2500, L100.0100 #### [facility] [address] [place], [address] Eosinophils/100 WBC (Bld) 4.0 % Normal 0-5 [facility] Comment on above: Order Comment: REDRA W. PREVIOUS SPECIMEN REJECTED DUE TO CLOTTED. 07/22/24 1346 Performed By: #### L 501.5425, L500.2500, L100.0100 #### [facility] [address] [place], [address] Erythrocyte distribution width (RBC) [Ratio] 17.0 % High 11.6-14.6 [facility] Comment on above: Order Comment: REDRA W. PREVIOUS SPECIMEN REJECTED DUE TO CLOTTED. 07/22/24 1346 Performed By: #### L 501.5425, L500.2500, L100.0100 #### [facility] [address] [place], [address] Hematocrit (Bld) [Volume fraction] 35.5 % Low 40-54 [facility] Comment on above: Order Comment: REDRA W. PREVIOUS SPECIMEN REJECTED DUE TO CLOTTED. 07/22/241345 Performed By: #### L 501.5425, L500.2500, L100.0100 #### [facility] [address] [place], [address] Hemoglobin (Bld) [Mass/Vol] 11.2 g/dL Low 13.0-16.5 [facility] Comment on above: Order Comment: REDRA W. PREVIOUS SPECIMEN REJECTED DUE TO CLOTTED. 07/22/241345 Performed By: #### L 501.5425, L500.2500, L100.0100 #### [facility] [address] [place], [address] IG% 0.500 Normal 0.0-0.9 [facility] Comment on above: Order Comment: REDRA W. PREVIOUS SPECIMEN REJECTED DUE TO CLOTTED. 07/22/241345 Result Comment: IG% - Immature Granulocytes (promyelocytes, myelocytes and metamyelocytes) > 1% indicates that a LEFT SHIFT is Present. Performed By: #### L 501.5425, L500.2500, L100.0100 #### [facility] [address] [place], [address] Lymphocytes/100 WBC (Bld) 11.4 % Low 19-41 [facility] Comment on above: Order Comment: REDRA W. PREVIOUS SPECIMEN REJECTED DUE TO CLOTTED. 07/22/24 1346 Performed By: #### L 501.5425, L500.2500, L100.0100 #### [facility] [address] [place], [address] MCH (RBC) [Entitic mass] 30.4 pg Normal 27.0-32.0 [facility] Comment on above: Order Comment: REDRA W. PREVIOUS SPECIMEN REJECTED DUE TO CLOTTED. 07/22/24 1346 Performed By: #### L 501.5425, L500.2500, L100.0100 #### [facility] [address] [place], [address] MCHC (RBC) [Mass/Vol] 31.5 g/dL Low 32-36 [facility] Comment on above: Order Comment: REDRA W. PREVIOUS SPECIMEN REJECTED DUE TO CLOTTED. 07/22/24 1346 Performed By: #### L 501.5425, L500.2500, L100.0100 #### [facility] [address] [place], [address] MCV (RBC) [Entitic vol] 96.2 fL High 80-94 [facility] Comment on above: Order Comment: REDRA W. PREVIOUS SPECIMEN REJECTED DUE TO CLOTTED. 07/22/24 1346 Performed By: #### L 501.5425, L500.2500, L100.0100 #### [facility] [address] [place], [address] Monocytes/100 WBC (Bld) 8.9 % Normal 0-10 [facility] Comment on above: Order Comment: REDRA W. PREVIOUS SPECIMEN REJECTED DUE TO CLOTTED. 07/22/24 1346 Performed By: #### L 501.5425, L500.2500, L100.0100 #### [facility] [address] [place], [address] Neutrophils/100 WBC (Bld) 74.8 % High 47-70 [facility] Comment on above: Order Comment: REDRA W. PREVIOUS SPECIMEN REJECTED DUE TO CLOTTED. 07/22/24 1346 Performed By: #### L 501.5425, L500.2500, L100.0100 #### [facility] [address] [place], [address] Nucleated RBC (Bld) [#/Vol] 0 10*3/uL Normal 0-5 [facility] Comment on above: Order Comment: REDRA W. PREVIOUS SPECIMEN REJECTED DUE TO CLOTTED. 07/22/24 1346 Performed By: #### L 501.5425, L500.2500, L100.0100 #### [facility] [address] [place], [address] Platelet mean volume (Bld) [Entitic vol] 9.8 fL Normal 6.2-12.0 [facility] Comment on above: Order Comment: REDRA W. PREVIOUS SPECIMEN REJECTED DUE TO CLOTTED. 07/22/24 1346 Performed By: #### L 501.5425, L500.2500, L100.0100 #### [facility] [address] [place], [address] Platelets (Bld) [#/Vol] 147 10*3/uL Low 150-450 [facility] Comment on above: Order Comment: REDRA W. PREVIOUS SPECIMEN REJECTED DUE TO CLOTTED. 07/22/24 1346 Performed By: #### L 501.5425, L500.2500, L100.0100 #### [facility] [address] [place], [address] RBC (Bld) [#/Vol] 3.69 10*6/uL Low 4.6-6.2 [facility] Comment on above: Order Comment: REDRA W. PREVIOUS SPECIMEN REJECTED DUE TO CLOTTED. 07/22/24 1346 Performed By: #### L 501.5425, L500.2500, L100.0100 #### [facility] [address] [place], [address] RDW SD 59.7 fl High 35.1-43.9 [facility] Comment on above: Order Comment: REDRA W. PREVIOUS SPECIMEN REJECTED DUE TO CLOTTED. 07/22/24 1346 Performed By: #### L 501.5425, L500.2500, L100.0100 #### [facility] [address] [place], [address] WBC (Bld) [#/Vol] 8.2 10*3/uL Normal 4.4-11.0 [facility] Comment on above: Order Comment: REDRA W. PREVIOUS SPECIMEN REJECTED DUE TO CLOTTED. 07/22/24 1346 Performed By: #### L 501.5425, L500.2500, L100.0100 #### [facility] [address] [place], [address] Absolute Neut Normal 2.0-7.7 [facility] Comment on above: Result Comment: This specimen has been REJECTED due to Laboratory criteria: Clotted. CRISELDA has been notified of need of recollection. 07/22/24 1344 Camryn Clapper Performed By: #### L 100.0100, L500.2500 ####[facility] [address] [place], [address] HCT Normal 40-54 [facility] Comment on above: Result Comment: This specimen has been REJECTED due to Laboratory criteria: Clotted. CRISELDA has been notified of need of recollection. 07/22/24 1344 Camryn Clapper Performed By: #### L 100.0100, L500.2500 ####[facility] [address] [place], [address] HGB Normal 13.0-16.5 [facility] Comment on above: Result Comment: This specimen has been REJECTED due to Laboratory criteria: Clotted. CRISELDA has been notified of need of recollection. 07/22/24 1344 Camryn Clapper Performed By: #### L 100.0100, L500.2500 ####[facility] [address] [place], [address] MCH Normal 27.0-32.0 [facility] Comment on above: Result Comment: This specimen has been REJECTED due to Laboratory criteria: Clotted. CRISELDA has been notified of need of recollection. 07/22/24 1344 Camryn Clapper Performed By: #### L 100.0100, L500.2500 ####[facility] [address] [place], [address] MCHC Normal 32-36 [facility] Comment on above: Result Comment: This specimen has been REJECTED due to Laboratory criteria: Clotted. CRISELDA has been notified of need of recollection. 07/22/24 1344 Camryn Clapper Performed By: #### L 100.0100, L500.2500 ####[facility] [address] [place], [address] MCV Normal 80-94 [facility] Comment on above: Result Comment: This specimen has been REJECTED due to Laboratory criteria: Clotted. CRISELDA has been notified of need of recollection. 07/22/24 1344 Camryn Clapper Performed By: #### L 100.0100, L500.2500 ####[facility] [address] [place], [address] NEUT% Normal 47-70 [facility] Comment on above: Result Comment: This specimen has been REJECTED due to Laboratory criteria: Clotted. CRISELDA has been notified of need of recollection. 07/22/24 1344 Camryn Clapper Performed By: #### L 100.0100, L500.2500 ####[facility] [address] [place], [address] PLT Normal 150-450 [facility] Comment on above: Result Comment: This specimen has been REJECTED due to Laboratory criteria: Clotted. CRISELDA has been notified of need of recollection. 07/22/24 1344 Camryn Clapper Performed By: #### L 100.0100, L500.2500 ####[facility] [address] [place], [address] RBC Normal 4.6-6.2 [facility] Comment on above: Result Comment: This specimen has been REJECTED due to Laboratory criteria: Clotted. CRISELDA has been notified of need of recollection. 07/22/24 1344 Camryn Clapper Performed By: #### L 100.0100, L500.2500 ####[facility] [address] [place], [address] RDW CV Normal 11.6-14.6 [facility] Comment on above: Result Comment: This specimen has been REJECTED due to Laboratory criteria: Clotted. CRISELDA has been notified of need of recollection. 07/22/24 1344 Camryn Clapper Performed By: #### L 100.0100, L500.2500 ####[facility] [address] [place], [address] RDW SD Normal 35.1-43.9 [facility] Comment on above: Result Comment: This specimen has been REJECTED due to Laboratory criteria: Clotted. CRISELDA has been notified of need of recollection. 07/22/24 1344 Camryn Clapper Performed By: #### L 100.0100, L500.2500 ####[facility] [address] [place], [address] WBC Normal 4.4-11.0 [facility] Comment on above: Result Comment: This specimen has been REJECTED due to Laboratory criteria: Clotted. CRISELDA has been notified of need of recollection. 07/22/24 1344 Camryn Clapper Performed By: #### L 100.0100, L500.2500 ####[facility] [address] [place], [address] Chest 1 View (Portable)on Chest 1 View (Portable) [facility] Imaging Services [address] [place] [address] Chest 1 View (Portable) MR#: [id number] Acct: [id number] Name: LUIS MANUEL DURAN Jr. Rep #: [id number] : 1940 M 83 From: Corina berkowitz MD PCP: Dr. Julio Licea MD Status: [facility] ER Study: Chest 1 View (Portable) Date of Exam: 07/22/24 Exam# [id number] Ordering Dr: Jaylene Manuel DO [id number] HISTORY: chest pain. TECHNIQUE: XR Chest 1 View. COMPARISON: 02/24/2024. 02/17/2024. FINDINGS: CARDIOMEDIASTINAL BORDERS: Cardiac silhouette within normal limits in size. Mediastinal contour also unchanged with surgical clips of the left thoracic inlet and calcification of the aorta. LUNGS: Mild linear bibasilar opacities. PLEURA: No pleural effusion or pneumothorax seen. OSSEOUS STRUCTURES: Chronic superior subluxation of the right distal clavicle relative to the acromion. RAD/Chest 1 View (Portable) IMPRESSION: Mild bibasilar atelectasis or scarring. Electronically Signed: Corina Shane MD at 14:08 EST , CC: Dr. Jaylene Manuel DO; Dr. 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 Rep #: [id number] : 1940 83 From: Jaylene Manuel DO PCP: Dr. Julio Licea MD Status:[facility] ER Location: ED HPI History of Present Illness Chief Complaint: Chest Pain Informant: patient, spouse/S.O. and EMS Narrative Narrative: This is 83-year-old male history of end-stage renal disease on dialysis coronary artery disease presenting to the emergency room following episode of hypotension with chest pain. Patient states that he was at the very end of his dialysis treatment with only a few minutes left when his blood pressure dropped with a systolic in the 70s. Normal he states that his neck he developed a left- sided chest discomfort radiating towards the side. He notes that it lasted only a few minutes and resolved. He had reoccurrence a few minutes later manage is not a medication for the symptoms since. He notes his blood pressure has now normalized. He sees cardiology at [facility]. He had balloon angioplasty reportedly in January and February followed by stent placement in April. [facility] Medical History Alcohol use History of renal disease Restless legs History of edema History of stress test Hypertension Anemia History of renal dialysis Wears glasses High cholesterol History of ulceration Gastric reflux Former smoker Hoarseness Chronic cough Cardiology follow-up encounter Ventral incisional hernia without obstruction or gangrene Screening for intestinal cancer Osteopenia determined by x-ray Hyperparathyroidism Recurrent inguinal hernia of right side without obstruction or gangrene Recurrent inguinal hernia TIA (transient ischemic attack) Mild renal insufficiency Esophageal reflux Dyslipidemia Hiatal hernia CKD (chronic kidney disease) stage 3, GFR 30-59 ml/min CAD (coronary artery disease), white [place]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 Anemia History of heart attack ( 09/04/14) Hypertension Home Medications ???Medication ???Instructions ???Recorded ???Last Taken ???Type aspirin 81 mg tablet,delayed 81 mg PO DAILY 04/29/18 05/20/18 07:00 History release (Adult Low Dose Aspirin) nitroglycerin 0.4 mg sublingual 0.4 mg sublingual X1 PRN CHEST PAIN 01/12/20 Unknown History tablet atorvastatin 40 mg tablet 40 mg PO QHS 11/24/20 Unknown History pantoprazole 40 mg tablet,delayed 40 mg PO DAILY 01/19/22 02/08/22 06:30 History release metoprolol succinate 25 mg 25 mg PO DAILY 12/24/23 Unknown History tablet,extended release 24 hr calcium acetate(phosphat bind) 667 667 mg PO TIDCM 02/17/24 Unknown History mg capsule amlodipine 5 mg tablet 5 mg PO DAILY 02/23/24 Unknown History furosemide 40 mg tablet 40 mg PO DAILY 02/23/24 Unknown History isosorbide mononitrate 30 mg 30 mg PO DAILY 02/23/24 Unknown History tablet,extended release 24 hr Allergy/AdvReac Type Severity Reaction Status Date / Time lisinopril AdvReac Other Verified 07/22/24 12:12 Family History Mother Colon cancer Father Colon cancer Myocardial infarction Brother Cancer Surgical History History of arteriovenostomy for renal dialysis ( 01/2022) History of ventral hernia repair Hx of colonoscopy ( 12/17/13) Hx of parathyroidectomy Hx of bilateral inguinal hernia repair Hx of heart artery stent Social History Smoking Status: Former smoker second hand exposure: No alcohol intake: current alcohol intake frequency: a few times a month substance use type: does not use caffeine: Yes what type of physical activity do you participate in: none seatbelt use: always ROS ROS ED Constitutional Constitutional ED: Denies chills, fever(s) or weight loss Eyes Eyes: Denies change in vision or diplopia ENT ENT ED: Denies ear pain, rhinorrhea or sore throat Cardiovascular Cardiovascular: Reports as per HPI, chest pain and other; Denies orthopnea, palpitations or racing heartbeat Respiratory/Chest Respiratory/Chest: Denies cough, dyspnea or orthopnea Gastrointestinal Gastrointestinal: Denies abdominal pain, diarrhea, nausea or vomiting Genitourinary Genitourinary ED: Denies dysuria, hematuria or urinary frequency Musculoskeletal Musculoskeletal: Reports other Details: Bilateral leg cramps ; Denies arthralgias or myalgias Integumentary Denies abscess or rash Neurologic Neurologic: Denies headache(s) or weakness Psychiatric Psychiatric: Denies anxiety, depression, suicidal ideation or suicidal thoughts Endocrine Endocrinology: Judah (more content not included)... Normal [facility] [id number] 07-22-2024 TROPONIN-I HS 37 pg/mL Normal 3.0-78.0 [facility] Comment on above: Result Comment: Plea se Note: New Test Units and Gender Specific Reference Ranges. For more information see Policy Stat Procedure [place] High Sensitivity Troponin (TNIH) and attachments. Performed By: #### L 501.4020 #### [facility] [address] [place], [address] [id number] 07-22-2024 TROPONIN-I HS 39 pg/mL Normal 3.0-78.0 [facility] Comment on above: Order Comment: BLUE High. PREVIOUS SPECIMEN REJECTED DUE TO HEMOLYSIS. 07/22/24 1346 1 Y Result Comment: Plea se Note: New Test Units and Gender Specific Reference Ranges. For more information see Policy Stat Procedure [place] High Sensitivity Troponin (TNIH) and attachments. Performed By: #### L 501.5403, L500.2500, L100.0100 #### [facility] [address] [place], [address] [facility] LUIS MANUEL DURAN JR ([id number]) 1940 Date Time Provider Department 07/13/24 DEANNE SHEN [facility] During your visit today, we recorded the following information about you: Nora De La Cruz LPN 07/13/2024 2:29 PM Signed Pt was seen 07/06/24. Xray was neg. Pt was prescribed Augmentin 500-125 mg - one tablet daily x 5 days. Pt reports he finished the atb and does not feel any better and did not while on atb. Pt reports nasal congestion, drainage and cough. Pt reports he will start coughing and not be able to stop for a while. Pt reports he does cough up some phlegm. Pt reports some SOB. Pt denies fever and pain. Pt reports he does dialysis so is using tired from that. Pt is not taking any otc medication for cough. Please review and advise. THOM Guzman Krista, LPN 07/14/2024 3:32 PM Signed Pt is calling to check on status of message. THOM Guzman Danielle, APRN.MAMMOGRAPHER 07/14/2024 4:29 PM Signed Please let patient know he will need to be seen in the office for evaluation. Triny Paz LPN 07/15/2024 4:31 PM Signed Spoke with pt and apt booked for 07-16-24. Triny Paz LPN Allergies As of Date: 07/13/2024 Noted Allergy Reaction AXID (NIZATIDINE) 07/31/2005 16 - Unknown ENTEX PSE (PSEUDOEPHEDRINE-GUAIFE* 16 - Unknown LISINOPRIL 11/22/2010 3 - Cough Date Reviewed: 07/06/2024 Reviewed by: Trevin Bermeo MA - Fully Assessed Reason for Visit: Cough [28] Prescriptions as of 07/15/2024 - finasteride (PROSCAR) 5 mg tablet Take 5 mg by mouth once daily. - furosemide (LASIX) 80 mg tablet Take 0.5 tablets by mouth once daily. Per CardioMarc - metoprolol tartrate, short acting, (LOPRESSOR) 50 mg tablet Take 0.5 tablets by mouth once daily. - lansoprazole (PREVACID) 30 mg capsule Take 1 capsule by mouth once daily. - calcium acetate,phosphat bind, (PHOSLO) 667 mg capsule - clopidogrel (PLAVIX) 75 mg tablet Take 1 tablet by mouth every afternoon. - atorvastatin (LIPITOR) 40 mg tablet Take 1 tablet by mouth once daily. For cholesterol. - calcium citrate (CALCITRATE) 200 mg (950 mg) tab Take 1 tablet by mouth four times daily. - acetaminophen (TYLENOL EXTRA STRENGTH) 500 mg tablet Take 2 tablets by mouth every 6 hours as needed for pain. - nitroglycerin sublingual (NITROSTAT) 0.4 mg SL tablet Dissolve 1 tablet under the tongue every 5 minutes as needed. - aspirin, enteric coated (ASPIRIN, ENTERIC COATED) 81 mg EC tablet Take 1 tablet by mouth once daily. Problem List As Of Date 07/13/2024 Noted Resolved Essential hypertension, benign [I10] Personal history of colonic polyps [Z86.0100] Gastroesophageal reflux disease [K21.9] Unspecified transient cerebral ischemia [G45.9] 01/15/2018 Ulcer of esophagus without bleeding [K22.10] 10/15/2013 BPH with obstruction/lower urinary tract sympto*08/01/2005 Esophagitis, unspecified [K20.90] 10/19/2008 10/15/2013 Benign essential tremor [G25.0] 07/03/2010 Mixed hyperlipidemia [E78.2] 09/03/2013 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 deficiency*10/15/2013 03/04/2017 Vitamin D deficiency [E55.9] 10/15/2013 Anemia of chronic disease [D63.8] 10/15/2013 Parathyroid adenoma [D35.1] 10/15/2013 12/24/2014 Primary hyperparathyroidism (HCC) [E21.0] 03/04/2017 Parathyroid adenoma [D35.1] 03/04/2017 06/03/2020 CKD (chronic kidney disease) stage 4, GFR 15-29*03/04/2017 Coronary artery disease involving white [place] foster*03/06/2018 History of non-ST elevation myocardial infarcti*03/06/2018 Elevated PSA [R97.20] 03/11/2019 Medicare annual wellness visit, subsequent [Z00*12/26/2020 Family history of malignant neoplasm of gastroi* Ex-smoker [Z87.891] 12/26/2020 History of COVID-19 [Z86.16] 05/29/2021 Mild aortic stenosis [I35.0] 11/27/2021 Living will on file [[id number]] 12/15/2021 Advance directive discussed with patient [Z71.8*12/15/2021 Chronic diastolic congestive heart failure (HCC*12/15/2021 Medication management [Z79.899] 02/22/2022 ESRD (end stage renal disease) on dialysis (HCC*07/11/2023 Elevated alkaline phosphatase level [R74.8] 09/24/2023 Hiatal hernia [K44.9] 06/11/2024 Encounter Status:Closed by TRINY PAZ on 07/15/24 Normal [facility] CNOVon 07-06-2024 CNOV Office Visit ([facility] ) ROGERLUIS MANUEL JR ([id number]) 1940 Date Time Provider Department 07/06/24 9:40 AM DEANNE SHENWS During your visit today, we recorded the following information about you: Pulse Blood pressure Weight 66/minute 152/67 77.1 kg Deanne Shen APRN.MAMMOGRAPHER 07/06/2024 9:51 AM Signed Chief Complaint Patient presents with: Cough nasal drainage HPI Luis Manuel Duran JR is a 83 year old male who presents here today for Above Complaints.. Patient presents for nasal congestion, drainage and cough x2 weeks. Cough is productive with yellow/clear phlegm. Denies fever, chills, chest pain. Reports nausea with occas vomiting, SOB with exertion. Was taking mucinex but stopped as it was not effective. Past medical history, appointments, medications, allergies reviewed. Previous Medical History PAST MEDICAL HISTORY Diagnosis Date Advance directive discussed with patient 12/15/2021 Discussed 12/2021 Anemia of chronic disease 10/15/2013 Benign essential tremor 07/03/2010 BPH with obstruction/lower urinary tract symptoms 08/01/2005 Chronic diastolic congestive heart failure (HCC) 12/15/2021 seeing cardio CKD (chronic kidney disease) stage 4, GFR 15-29 ml/min ([facility]) 03/04/2017 Coronary artery disease involving white mountain coronary artery of white mountain heart without angina pectoris 03/06/[address] Horton Cardio Marc COVID-19 virus infection 05/29/2021 05/27/2021 Diaphragmatic hernia without mention of obstruction or gangrene Hiatal hernia Elevated alkaline phosphatase level 09/24/2023 Elevated bone fraction: NM bone scan 09/2023 was normal. Elevated PSA 03/11/2019 Esophagitis, unspecified ESRD (end stage renal disease) on dialysis ([facility]) 07/11/2023 Essential hypertension, benign Ex-smoker 12/26/2020 Started age 18 up to 1.5 PPD and quit at age 35. 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 deficiency (HCC) 10/15/2013 Living will on file 12/15/2021 DPA: Shea () Mild aortic stenosis 11/27/2021 Seeing Cardio Mixed hyperlipidemia 09/03/2013 Overweight (BMI 25.0-29.9) Parathyroid adenoma 05/27/2013 parathyroidectomy 05/27/13 Personal history of colonic polyps Colon polyps Primary hyperparathyroidism (HCC) 03/04/2017 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: 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 TIA (transient ischemic attack) 06/2010 Ulcer of esophagus without bleeding Vitamin D deficiency 10/15/2013 Previous Surgical History PAST SURGICAL HISTORY Procedure Laterality Date BX/EXC LYMPH NODE OPEN SUPERFICIAL CC CORONARY STENT 11/18/2023 2 stents to Left Circ COLONOSCOPY 12/22/2019 COLONOSCOPY FLX DX W/COLLJ SPEC WHEN PFRMD 08/2000 Colonoscopy COLONOSCOPY FLX DX W/COLLJ SPEC WHEN PFRMD 10/19/2008 EGD 06/11/2024 EGD TRANSORAL BIOPSY SINGLE/MULTIPLE 10/19/2008 ESOPHAGOGASTRODUODENOSCOPY TRANSORAL DIAGNOSTIC ESOPHAGOGASTRODUODENOSCOPY TRANSORAL DIAGNOSTIC 12/22/[address] Marcial LAPAROSCOPIC HERNIA REPAIR Right 05/21/2018 recurrent incarcerated direct right inguinal hernia PARATHYROIDECTOMY/EXPLORATI ON PARATHYROIDS 05/27/2013 Parathyroid adenoma PAST SURGICAL HISTORY OF 01/20/2021 supraumbilical ventral hernia RPR 1ST INGUN HRNA AGE 5 YRS/> REDUCIBLE Hernia repair, inguinal BILATERAL Family History FAMILY HISTORY Problem Relation Age of Onset Colon Cancer Mother Colon Cancer Father Arthritis Mother Heart Father SD * 2 Prostate Cancer Brother Hypertension Brother None Brother Patient Allergies ALLERGIES Allergen Reactions Axid [Nizatidine] Unknown Entex Pse [Pseudoep* Unknown Lisinopril Cough Current Medications Current Outpatient Medications on File Prior to Visit Medication Sig finasteride (PROSCAR) 5 mg tablet Take 5 mg by mouth once daily. lansoprazole (PREVACID) 30 mg capsule Take 1 capsule by mouth once daily. calcium acetate,phosphat bind, (PHOSLO) 667 mg capsule clopidogrel (PLAVIX) 75 mg tablet Take 1 tablet by mouth every afternoon. atorvastatin (LIPITOR) 40 mg tablet Take 1 tablet by mouth once daily. For cholesterol. calcium citrate (CALCITRATE) 200 mg (950 mg) tab Take 1 tablet by mouth four times daily. acetaminophen (TYLENOL EXTRA STRENGTH) 500 mg tablet Take 2 tablets by mouth every 6 hours as needed for pain. furosemide (LASIX) 80 mg tablet 1 tablet once daily. Per Marc Reveles (Patient taking differently: 40 mg once daily. Per CardioMarc) metoprolol tartrate, short acting, (LOPRESSOR) 50 mg tablet 0.5 tablets twice daily. (Patient taking differently: Take 25 mg by mouth once daily.) n (more content not included)... Normal [facility] 07-06-2024 [facility] Telephone ([facility]) LUIS MANUEL DURAN JR ([id number]) 1940 M Date Time Provider Department 07/06/24 DEANNE SHEN [facility] During your visit today, we recorded the following information about you: Deanne Shen APRN.[facility] 07/06/2024 10:26 AM Signed Please let patient know their xray is normal. I have sent in antibiotics for a sinus infection. Trevin Bermeo MA 07/06/2024 10:29 AM Signed Pt notified and verbalized understanding Trevin Bermeo MA Allergies As of Date: 07/06/2024 Noted Allergy Reaction AXID (NIZATIDINE) 07/31/2005 16 - Unknown ENTEX PSE (PSEUDOEPHEDRINE-GUAIFE* 16 - Unknown LISINOPRIL 11/22/2010 3 - Cough Date Reviewed: 07/06/2024 Reviewed by: Trevin Bermeo MA - Fully Assessed Reason for Visit: Results [95] Primary Visit Diagnosis:Bacterial sinusitis [J32.9, B96.89] Order(s):amoxicillin-clavul anate potassium (AUGMENTIN) 500-125 mg per tabletTake 1 tablet by mouth once daily for 5 days. Take after dialysisDisp: 5 tabletRfl: 0 Prescriptions as of 07/06/2024 - finasteride (PROSCAR) 5 mg tablet Take 5 mg by mouth once daily. - furosemide (LASIX) 80 mg tablet Take 0.5 tablets by mouth once daily. Per CardioMarc - metoprolol tartrate, short acting, (LOPRESSOR) 50 mg tablet Take 0.5 tablets by mouth once daily. - amoxicillin-clavulanate potassium (AUGMENTIN) 500-125 mg per tablet Take 1 tablet by mouth once daily for 5 days. Take after dialysis - lansoprazole (PREVACID) 30 mg capsule Take 1 capsule by mouth once daily. - calcium acetate,phosphat bind, (PHOSLO) 667 mg capsule - clopidogrel (PLAVIX) 75 mg tablet Take 1 tablet by mouth every afternoon. - atorvastatin (LIPITOR) 40 mg tablet Take 1 tablet by mouth once daily. For cholesterol. - calcium citrate (CALCITRATE) 200 mg (950 mg) tab Take 1 tablet by mouth four times daily. - acetaminophen (TYLENOL EXTRA STRENGTH) 500 mg tablet Take 2 tablets by mouth every 6 hours as needed for pain. - nitroglycerin sublingual (NITROSTAT) 0.4 mg SL tablet Dissolve 1 tablet under the tongue every 5 minutes as needed. - aspirin, enteric coated (ASPIRIN, ENTERIC COATED) 81 mg EC tablet Take 1 tablet by mouth once daily. 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 deficiency*10/15/2013 03/04/2017 Vitamin D deficiency [E55.9] 10/15/2013 Anemia of chronic disease [D63.8] 10/15/2013 Parathyroid adenoma [D35.1] 10/15/2013 12/24/2014 Primary hyperparathyroidism (HCC) [E21.0] 03/04/2017 Parathyroid adenoma [D35.1] 03/04/2017 06/03/2020 CKD (chronic kidney disease) stage 4, GFR 15-29*03/04/2017 Coronary artery disease involving [place] foster*03/06/2018 History of non-ST elevation myocardial infarcti*03/06/2018 Elevated PSA [R97.20] 03/11/2019 Medicare annual wellness visit, subsequent [Z00*12/26/2020 Family history of malignant neoplasm of gastroi* Ex-smoker [Z87.891] 12/26/2020 History of COVID-19 [Z86.16] 05/29/2021 Mild aortic stenosis [I35.0] 11/27/2021 Living will on file [[id number]] 12/15/2021 Advance directive discussed with patient [Z71.8*12/15/2021 Chronic diastolic congestive heart failure (HCC*12/15/2021 Medication management [Z79.899] 02/22/2022 ESRD (end stage renal disease) on dialysis (HCC*07/11/2023 Elevated alkaline phosphatase level [R74.8] 09/24/2023 Hiatal hernia [K44.9] 06/11/2024 Prescriptions ordered this encounter Disp Refills Start End AMOXICILLIN 500 MG-POTASSIUM CLAVULA* 5 ta* 0 07/06/2024 07/11/2024 Route: ORAL Sig: Take 1 tablet by mouth once daily for 5 days. Take after dialysis Encounter Status:Closed by TREVIN BERMEO CMA on 07/06/24 [facility] LUIS MANUEL DURAN JR ([id number]) 1940 M Date Time Provider Department 07/06/24 DEANNE SHEN During your visit today, we recorded the following information about you: Ammy Cotton, LIEN 07/06/2024 11:02 AM Signed Pt was just in to see Deanne Kj and states he was to receive an antibiotic. The antibiotic was accidentally sent to [facility] mail order. Pt states it will take 10 days for him to get it. Asked if prescription could please be sent to [facility]. Pt will call [facility] to tell them not to fill it. Called and spoke with Clarice pharmacist at [facility] and gave her prescription information to fill. Allergies As of Date: 07/06/2024 Noted Allergy Reaction AXID (NIZATIDINE) 07/31/2005 16 - Unknown ENTEX PSE (PSEUDOEPHEDRINE-GUAIFE* 16 - Unknown LISINOPRIL 11/22/2010 3 - Cough Date Reviewed: 07/06/2024 Reviewed by: Trevin Bermeo MA - Fully Assessed Reason for Visit: Medication Problem [65] Cmt: Augmentin Prescriptions as of 07/06/2024 - finasteride (PROSCAR) 5 mg tablet Take 5 mg by mouth once daily. - furosemide (LASIX) 80 mg tablet Take 0.5 tablets by mouth once daily. Per Cardio, Marc - metoprolol tartrate, short acting, (LOPRESSOR) 50 mg tablet Take 0.5 tablets by mouth once daily. - amoxicillin-clavulanate potassium (AUGMENTIN) 500-125 mg per tablet Take 1 tablet by mouth once daily for 5 days. Take after dialysis - lansoprazole (PREVACID) 30 mg capsule Take 1 capsule by mouth once daily. - calcium acetate,phosphat bind, (PHOSLO) 667 mg capsule - clopidogrel (PLAVIX) 75 mg tablet Take 1 tablet by mouth every afternoon. - atorvastatin (LIPITOR) 40 mg tablet Take 1 tablet by mouth once daily. For cholesterol. - calcium citrate (CALCITRATE) 200 mg (950 mg) tab Take 1 tablet by mouth four times daily. - acetaminophen (TYLENOL EXTRA STRENGTH) 500 mg tablet Take 2 tablets by mouth every 6 hours as needed for pain. - nitroglycerin sublingual (NITROSTAT) 0.4 mg SL tablet Dissolve 1 tablet under the tongue every 5 minutes as needed. - aspirin, enteric coated (ASPIRIN, ENTERIC COATED) 81 mg EC tablet Take 1 tablet by mouth once daily. 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 deficiency*10/15/2013 03/04/2017 Vitamin D deficiency [E55.9] 10/15/2013 Anemia of chronic disease [D63.8] 10/15/2013 Parathyroid adenoma [D35.1] 10/15/2013 12/24/2014 Primary hyperparathyroidism (HCC) [E21.0] 03/04/2017 Parathyroid adenoma [D35.1] 03/04/2017 06/03/2020 CKD (chronic kidney disease) stage 4, GFR 15-29*03/04/2017 Coronary artery disease involving [place] foster*03/06/2018 History of non-ST elevation myocardial infarcti*03/06/2018 Elevated PSA [R97.20] 03/11/2019 Medicare annual wellness visit, subsequent [Z00*12/26/2020 Family history of malignant neoplasm of gastroi* Ex-smoker [Z87.891] 12/26/2020 History of COVID-19 [Z86.16] 05/29/2021 Mild aortic stenosis [I35.0] 11/27/2021 Living will on file [[id number]] 12/15/2021 Advance directive discussed with patient [Z71.8*12/15/2021 Chronic diastolic congestive heart failure (HCC*12/15/2021 Medication management [Z79.899] 02/22/2022 ESRD (end stage renal disease) on dialysis (HCC*07/11/2023 Elevated alkaline phosphatase level [R74.8] 09/24/2023 Hiatal hernia [K44.9] 06/11/2024 Encounter Status:Closed by AMMY COTTON on 07/06/24 Normal [facility] XR CHEST 2V FRONTAL/LATon XR CHEST 2V FRONTAL/LAT * * *Final Report* * * DATE OF EXAM: Jul 06 2024 10:06AM WOX [id number] - XR CHEST 2V FRONTAL/LAT / PROCEDURE REASON: multiple diagnoses * * * * Physician Interpretation * * * * EXAMINATION: CHEST RADIOGRAPH (2 VIEW FRONTAL and LATERAL) CLINICAL HISTORY: Wheezing Cough productive of clear sputum MQ: XC2_6 EXAM DATE/TIME: 07/06/2024 10:06 AM COMPARISON: Chest x-ray 10/20/2021 RESULT: Lines, tubes, and devices: None. Lungs and pleura: Unchanged interstitial prominence in the lung bases. No consolidation. No pleural effusion or pneumothorax. Cardiomediastinal silhouette: Normal cardiomediastinal silhouette. Bones and soft tissues: Unremarkable. IMPRESSION: No acute radiographic abnormality. Counter Supply Worker: ELHAM Transcribe Date/Time: Jul 06 2024 10:20A Dictated by : JAXSON HOUSTON MD This examination was interpreted and the report reviewed and electronically signed by: JAXSON HOUSTON MD on Jul 06 2024 10:21AM EST [id number] Normal [facility] XR Chest PA and Lateralon IMPRESSION: No acute radiographic abnormality. Counter Supply Worker: PSCB Transcribe Date/Time: Jul 06 2024 10:20A Dictated by : JAXSON HOUSTON MD This examination was interpreted and the report reviewed and electronically signed by: JAXSON HOUSTON MD on Jul 06 2024 10:21AM EST DIVISION OF RADIOLOGY * * *Final Report* * * DATE OF EXAM: Jul 06 2024 10:06AM WOX [id number] - XR CHEST 2V FRONTAL/LAT / PROCEDURE REASON: multiple diagnoses * * * * Physician Interpretation * * * * EXAMINATION: CHEST RADIOGRAPH (2 VIEW FRONTAL & LATERAL) CLINICAL HISTORY: Wheezing Cough productive of clear sputum MQ: XC2_6 EXAM DATE/TIME: 07/06/2024 10:06 AM COMPARISON: Chest x-ray 10/20/2021 RESULT: Lines, tubes, and devices: None. Lungs and pleura: Unchanged interstitial prominence in the lung bases. No consolidation. No pleural effusion or pneumothorax. Cardiomediastinal silhouette: Normal cardiomediastinal silhouette. Bones and soft tissues: Unremarkable. DIVISION OF RADIOLOGY Provider, Obdulia Armas Brittney - 07/06/2024 * * *Final Report* * * DATE OF EXAM: Jul 06 2024 10:06AM WOX [id number] - XR CHEST 2V FRONTAL/LAT / PROCEDURE REASON: multiple diagnoses * * * * Physician Interpretation * * * * EXAMINATION: CHEST RADIOGRAPH (2 VIEW FRONTAL & LATERAL) CLINICAL HISTORY: Wheezing Cough productive of clear sputum MQ: XC2_6 EXAM DATE/TIME: 07/06/2024 10:06 AM COMPARISON: Chest x-ray 10/20/2021 RESULT: Lines, tubes, and devices: None. Lungs and pleura: Unchanged interstitial prominence in the lung bases. No consolidation. No pleural effusion or pneumothorax. Cardiomediastinal silhouette: Normal cardiomediastinal silhouette. Bones and soft tissues: Unremarkable. IMPRESSION IMPRESSION: No acute radiographic abnormality. Counter Supply Worker: ELHAM Transcribe Date/Time: Jul 06 2024 10:20A Dictated by : JAXSON HOUSTON MD This examination was interpreted and the report reviewed and electronically signed by: JAXSON HOUSTON MD on Jul 06 2024 10:21AM [facility] Radiology Study observation (narrative) [facility] XR Chest PA and LateralOrder ed By: [facility] Provider on 07-06-2024 [facility] Beto 06-26-2024 CNPN Telephone ([employer]) LUIS MANUEL DURAN JR ([id number]) 1940 Date Time Provider Department 06/26/24 JOSÉ ANTONIO BURNETTE During your visit today, we recorded the following information about you: José Antonio Suero LPN 06/26/2024 1:21 PM Signed Shea called. Verified name and date of of patient. Patient has been taking the Prevacid now for seven days with no relief. Patient is still having pain in stomach, hot and bothersome, and feels like he will throw up but sometimes he will throw up. Recently started with a dry cough but feels that is perhaps a cold. No temperature. Asking if patient should go back on Protonix. Does not feel that the Protonix helped the stomach anymore than the Prevacid. They will call PCP regarding cough as patient was miserable yesterday coughing nonstop. Please review and advise. THOM Mohr Rhonda, RN 06/29/2024 11:38 AM Signed Zaira Burnette APRN.VIOLETTE I would give the Prevacid at least 2 weeks to notice a change, but if they believe he is feeling this way because of the Prevacid he would be fine to go back to Protonix. Zaira Burnette APRN.MAMMOGRAPHER Message reviewed with Shea. She voiced understanding. Advised that he still is not feeling any better. Laura Asher RN Allergies As of Date: 06/26/2024 Noted Allergy Reaction AXID (NIZATIDINE) 07/31/2005 16 - Unknown ENTEX PSE (PSEUDOEPHEDRINE-GUAIFE* 16 - Unknown LISINOPRIL 11/22/2010 3 - Cough Date Reviewed: 06/18/2024 Reviewed by: Zaira Burnette APRN.MAMMOGRAPHER - Fully Assessed Reason for Visit: Patient Update [1234] Prescriptions as of 06/29/2024 - lansoprazole (PREVACID) 30 mg capsule Take 1 capsule by mouth once daily. - calcium acetate,phosphat bind, (PHOSLO) 667 mg capsule - clopidogrel (PLAVIX) 75 mg tablet Take 1 tablet by mouth every afternoon. - atorvastatin (LIPITOR) 40 mg tablet Take 1 tablet by mouth once daily. For cholesterol. - calcium citrate (CALCITRATE) 200 mg (950 mg) tab Take 1 tablet by mouth four times daily. - acetaminophen (TYLENOL EXTRA STRENGTH) 500 mg tablet Take 2 tablets by mouth every 6 hours as needed for pain. - furosemide (LASIX) 80 mg tablet 1 tablet once daily. Per [facility] - metoprolol tartrate, short acting, (LOPRESSOR) 50 mg tablet 0.5 tablets twice daily. - nitroglycerin sublingual (NITROSTAT) 0.4 mg SL tablet Dissolve 1 tablet under the tongue every 5 minutes as needed. - aspirin, enteric coated (ASPIRIN, ENTERIC COATED) 81 mg EC tablet Take 1 tablet by mouth once daily. Problem List As Of Date 06/26/2024 Noted Resolved Essential hypertension, benign [I10] Personal history of colonic polyps [Z86.0100] Gastroesophageal reflux disease [K21.9] Unspecified transient cerebral ischemia [G45.9] 01/15/2018 Ulcer of esophagus without bleeding [K22.10] 10/15/2013 BPH with obstruction/lower urinary tract sympto*08/01/2005 Esophagitis, unspecified [K20.90] 10/19/2008 10/15/2013 Benign essential tremor [G25.0] 07/03/2010 Mixed hyperlipidemia [E78.2] 09/03/2013 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 deficiency*10/15/2013 03/04/2017 Vitamin D deficiency [E55.9] 10/15/2013 Anemia of chronic disease [D63.8] 10/15/2013 Parathyroid adenoma [D35.1] 10/15/2013 12/24/2014 Primary hyperparathyroidism (HCC) [E21.0] 03/04/2017 Parathyroid adenoma [D35.1] 03/04/2017 06/03/2020 CKD (chronic kidney disease) stage 4, GFR 15-29*03/04/2017 Coronary artery disease involving [place] foster*03/06/2018 History of non-ST elevation myocardial infarcti*03/06/2018 Elevated PSA [R97.20] 03/11/2019 Medicare annual wellness visit, subsequent [Z00*12/26/2020 Family history of malignant neoplasm of gastroi* Ex-smoker [Z87.891] 12/26/2020 History of COVID-19 [Z86.16] 05/29/2021 Mild aortic stenosis [I35.0] 11/27/2021 Living will on file [[id number]] 12/15/2021 Advance directive discussed with patient [Z71.8*12/15/2021 Chronic diastolic congestive heart failure (HCC*12/15/2021 Medication management [Z79.899] 02/22/2022 ESRD (end stage renal disease) on dialysis (HCC*07/11/2023 Elevated alkaline phosphatase level [R74.8] 09/24/2023 Hiatal hernia [K44.9] 06/11/2024 Encounter Status:Closed by LAURA ASHER on 06/29/24 [facility] VIOLETTENon 06-19-2024 CNPN Telephone (GENSWS) LUIS MANUEL DURAN JR ([id number]) 1940 Date Time Provider Department 06/19/24 ZAIRA BURNETTE During your visit today, we recorded the following information about you: Vania Amaya MA 06/19/2024 8:16 AM Signed Patient seen in office yesterday and was prescribed Protonix. After they picked up the prescription and got home they discovered that he is already taking this medication and it is not helping. Please contact the patient back at [phone]. Zaira Burnette APRN.MAMMOGRAPHER 06/19/2024 9:41 AM Signed *disregard my note about the Prilosec, I chose prevacid instead.* Can you please call Luis Manuel and let him know I sent in a prescription [facility] to [facility]. This medication works the same way at the Protonix and sometimes patients need to switch. He should take 1 pill 30 minutes before breakfast for the next 3 mos. Also work on lifestyle factors that aggravate acid reflux as we discussed in the office. If the medication doesn't work or he has any questions please let me know. Thanks, Zaira Burnette APRN.MAMMOGRAPHER Allergies As of Date: 06/19/2024 Noted Allergy Reaction AXID (NIZATIDINE) 07/31/2005 16 - Unknown ENTEX PSE (PSEUDOEPHEDRINE-GUAIFE* 16 - Unknown LISINOPRIL 11/22/2010 3 - Cough Date Reviewed: 06/18/2024 Reviewed by: Zaira Burnette APRN.MAMMOGRAPHER - Fully Assessed Reason for Visit: Patient Update [1234] Order(s):lansoprazole (PREVACID) 30 mg capsuleTake 1 capsule by mouth once daily.Disp: 90 capsuleRfl: 0 Prescriptions as of 06/30/2024 - lansoprazole (PREVACID) 30 mg capsule Take 1 capsule by mouth once daily. - calcium acetate,phosphat bind, (PHOSLO) 667 mg capsule - clopidogrel (PLAVIX) 75 mg tablet Take 1 tablet by mouth every afternoon. - atorvastatin (LIPITOR) 40 mg tablet Take 1 tablet by mouth once daily. For cholesterol. - calcium citrate (CALCITRATE) 200 mg (950 mg) tab Take 1 tablet by mouth four times daily. - acetaminophen (TYLENOL EXTRA STRENGTH) 500 mg tablet Take 2 tablets by mouth every 6 hours as needed for pain. - furosemide (LASIX) 80 mg tablet 1 tablet once daily. Per Card[facility]GlennyMarc - metoprolol tartrate, short acting, (LOPRESSOR) 50 mg tablet 0.5 tablets twice daily. - nitroglycerin sublingual (NITROSTAT) 0.4 mg SL tablet Dissolve 1 tablet under the tongue every 5 minutes as needed. - aspirin, enteric coated (ASPIRIN, ENTERIC COATED) 81 mg EC tablet Take 1 tablet by mouth once daily. Problem List As Of Date 06/19/2024 Noted Resolved Essential hypertension, benign [I10] Personal history of colonic polyps [Z86.0100] Gastroesophageal reflux disease [K21.9] Unspecified transient cerebral ischemia [G45.9] 01/15/2018 Ulcer of esophagus without bleeding [K22.10] 10/15/2013 BPH with obstruction/lower urinary tract sympto*08/01/2005 Esophagitis, unspecified [K20.90] 10/19/2008 10/15/2013 Benign essential tremor [G25.0] 07/03/2010 Mixed hyperlipidemia [E78.2] 09/03/2013 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 deficiency*10/15/2013 03/04/2017 Vitamin D deficiency [E55.9] 10/15/2013 Anemia of chronic disease [D63.8] 10/15/2013 Parathyroid adenoma [D35.1] 10/15/2013 12/24/2014 Primary hyperparathyroidism (HCC) [E21.0] 03/04/2017 Parathyroid adenoma [D35.1] 03/04/2017 06/03/2020 CKD (chronic kidney disease) stage 4, GFR 15-29*03/04/2017 Coronary artery disease involving [place] foster*03/06/2018 History of non-ST elevation myocardial infarcti*03/06/2018 Elevated PSA [R97.20] 03/11/2019 Medicare annual wellness visit, subsequent [Z00*12/26/2020 Family history of malignant neoplasm of gastroi* Ex-smoker [Z87.891] 12/26/2020 History of COVID-19 [Z86.16] 05/29/2021 Mild aortic stenosis [I35.0] 11/27/2021 Living will on file [[id number]] 12/15/2021 Advance directive discussed with patient [Z71.8*12/15/2021 Chronic diastolic congestive heart failure (HCC*12/15/2021 Medication management [Z79.899] 02/22/2022 ESRD (end stage renal disease) on dialysis (HCC*07/11/2023 Elevated alkaline phosphatase level [R74.8] 09/24/2023 Hiatal hernia [K44.9] 06/11/2024 Prescriptions ordered this encounter Disp Refills Start End LANSOPRAZOLE 30 MG CAPSULE,DELAYED R* 90 c* 0 06/19/2024 09/17/2024 Route: ORAL Sig: Take 1 capsule by mouth once daily. Medications Discontinued During This Encounter Prescriptions - pantoprazole DR (PROTONIX) 40 mg tablet (Discontinued) Take 1 tablet by mouth once daily. Encounter Status:Closed by VANIA AMAYA on 06/30/24 [facility] Zackary 06-18-2024 CNOV Office Visit (GENSWS ) LUIS MANUEL DURAN JR ([id number]) 1940 M Date Time Provider Department 06/18/24 9:00 AM ZAIRA BURNETTE During your visit today, we recorded the following information about you: Zaira Burnette APRN.[facility] 06/18/2024 9:12 AM Signed FOLLOW UP VISIT - ENDOSCOPY Luis Manuel Duran JR 1940 [id number] REFERRING PHYSICIAN: Jaylene Callejas III [address] [facility] [id number] Luis Manuel Duran JR is a patient I am following for GERD. Dr. Callejas performed upper endoscopy on 06/11/24. The patient was found to have Impression: - 3 cm hiatal hernia. - Z-line regular, 40 cm from the incisors. Biopsied. - Gastritis. Biopsied. - Normal examined duodenum. Biopsied. Pathology demonstrated: FINAL DIAGNOSIS A. Duodenum, biopsy: - Duodenal mucosa with no significant histopathologic findings. B. Stomach, antrum, biopsy: - Gastric antral/oxyntic mucosa with mild chronic inactive gastritis. - No evidence of Helicobacter pylori organisms on REJI stain. C. Esophagus, distal, biopsy: - Squamous mucosa with reflux-associated reactive epithelial changes. - No evidence of increased intraepithelial eosinophils. D. Esophagus, mid, biopsy: - Squamous mucosa with no significant histopathologic findings. - No evidence of increased intraepithelial eosinophils. The patient notes some reflux. He states he ate spaghetti and then chili and noticed an increase in his reflux symptoms. He notes he took protonix in the past with relief. VITALS: There were no vitals taken for this visit. General: patient is alert, cooperative, pleasant and in no acute distress On examination, the abdomen is benign. Assessment ASSESSMENT/PLAN: 1. Gastroesophageal reflux disease, unspecified whether esophagitis present - ICD9: 530.81, ICD10: K21.9 - Discussed lifestyle modifications including limiting caffeine, no meals three hours before sleep, and head of bed elevation - Protonix 40mg daily x 3 mos. PLAN: The operative findings and pathology report were reviewed with the patient, and the patient has had the opportunity to ask questions and have questions answered. If the patient notes any problems or changes in bowel function, the patient should contact me immediately. Otherwise I recommend follow up endoscopy as symptoms dictate. HM updated and recall letter generated. Discussed treatment plan and patient voices understanding. Patient's questions answered appropriately. Medications and potential side effects were discussed and patient voices understanding. Return to the office as scheduled or as needed for worsening/no improvement. Zaira Burnette APRN.MAMMOGRAPHER Referring Provider: JAYLENE CALLEJAS [[id number]] Allergies As of Date: 06/18/2024 Noted Allergy Reaction AXID (NIZATIDINE) 07/31/2005 16 - Unknown ENTEX PSE (PSEUDOEPHEDRINE-GUAIFE* 16 - Unknown LISINOPRIL 11/22/2010 3 - Cough Date Reviewed: 06/18/2024 Reviewed by: Zaira Burnette APRN.MAMMOGRAPHER - Fully Assessed Reason for Visit: Follow Up [171] Cmt: Review EGD results. Primary Visit Diagnosis:Gastroesophageal reflux disease, unspecified whether esophagitis present [K21.9] Order(s):pantoprazole DR (PROTONIX) 40 mg tabletTake 1 tablet by mouth once daily.Disp: 90 tabletRfl: 1 Prescriptions as of 06/18/2024 - pantoprazole DR (PROTONIX) 40 mg tablet Take 1 tablet by mouth once daily. - calcium acetate,phosphat bind, (PHOSLO) 667 mg capsule - clopidogrel (PLAVIX) 75 mg tablet Take 1 tablet by mouth every afternoon. - atorvastatin (LIPITOR) 40 mg tablet Take 1 tablet by mouth once daily. For cholesterol. - calcium citrate (CALCITRATE) 200 mg (950 mg) tab Take 1 tablet by mouth four times daily. - acetaminophen (TYLENOL EXTRA STRENGTH) 500 mg tablet Take 2 tablets by mouth every 6 hours as needed for pain. - furosemide (LASIX) 80 mg tablet 1 tablet once daily. Per CardioGlennyMarc - metoprolol tartrate, short acting, (LOPRESSOR) 50 mg tablet 0.5 tablets twice daily. - nitroglycerin sublingual (NITROSTAT) 0.4 mg SL tablet Dissolve 1 tablet under the tongue every 5 minutes as needed. - aspirin, enteric coated (ASPIRIN, ENTERIC COATED) 81 mg EC tablet Take 1 tablet by mouth once daily. Problem List As Of Date 06/18/2024 Noted Resolved Essential hypertension, benign [I10] Personal history of colonic polyps [Z86.0100] Gastroesophageal reflux disease [K21.9] Unspecified transient cerebral ischemia [G45.9] 01/15/2018 Ulcer of esophagus without bleeding [K22.10] 10/15/2013 BPH with obstruction/lower urinary tract sympto*08/01/2005 Esophagitis, unspecified [K20.90] 10/19/2008 10/15/2013 Benign essential tremor [G25.0] 07/03/2010 Mixed hyperlipidemia [E78.2] 09/03/2013 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 deficiency*10/15/2013 03/04/2017 Vitamin D deficiency [E55.9] 10/15/2013 Anemia of c (more content not included)... Normal [facility] [id number] 06-11-2024 [id number] HNO ID: [id number] Author: CORINA LANDRY RN Service: ? Author Type: Registered Nurse Type: [id number] Filed: 06/11/2024 10:08 Note Text: The patient received a copy of EGD discharge instructions that contain information for how to contact the physician who performed the procedure and when to seek medical care. Normal [facility] EGD Study observation Vielka rizzo 06-11-2024 [facility] Gastrointestinal Endoscopy Patient Name: Luis Manuel Duran Procedure Date: 06/11/2024 9:31 AM Date of : 1940 Admit Type: Outpatient Age: 83 Gender: Male Note Status: Finalized Procedure: Upper GI endoscopy Indications: Gastro-esophageal reflux disease Providers: Jaylene Callejas MD Patient Profile: This is an 83 year old male. Refer to note in patient chart for documentation of history and physical. Referring Physician: Jaylene Callejas MD (Referring MD), Deanne Shen (Referring ) Medicines: Fentanyl 50 micrograms IV, Midazolam 3 mg IV, Benzocaine spray Complications: No immediate complications. Estimated blood loss: Minimal. Requesting Provider: Procedure: Pre-Anesthesia Assessment: - Prior to the procedure, a History and Physical was performed, and patient medications and allergies were reviewed. The patient's tolerance of previous anesthesia was also reviewed. The risks and benefits of the procedure and the sedation options and risks were discussed with the patient. All questions were answered, and informed consent was obtained. Prior Anticoagulants: The patient has taken Plavix (clopidogrel), last dose was 1 day prior to procedure. ASA Grade Assessment: III - A patient with severe systemic disease. After reviewing the risks and benefits, the patient was deemed in satisfactory condition to undergo the procedure. After obtaining informed consent, the endoscope was passed under direct vision. Throughout the procedure, the patient's blood pressure, pulse, and oxygen saturations were monitored continuously. The Endoscope was introduced through the mouth, and advanced to the second part of duodenum. The upper GI endoscopy was accomplished without difficulty. The patient tolerated the procedure well. Moderate Sedation: The administration of moderate sedation was initiated at 09:39 AM. Moderate (conscious) sedation was personally administered by the endoscopist. The following parameters were monitored: oxygen saturation, heart rate, blood pressure, respiratory rate, EKG, adequacy of pulmonary ventilation, and response to care. Total physician intraservice time was 7 minutes. Findings: A 3 cm hiatal hernia was present. The Z-line was regular and was found 40 cm from the incisors. Biopsies were taken with a cold forceps for histology. Localized mild inflammation characterized by linear erosions was found in the prepyloric region of the stomach. Biopsies were taken with a cold forceps for Helicobacter pylori testing. The examined duodenum was normal. Biopsies for histology were taken with a cold forceps for evaluation of celiac disease. Impression: - 3 cm hiatal hernia. - Z-line regular, 40 cm from the incisors. Biopsied. - Gastritis. Biopsied. - Normal examined duodenum. Biopsied. Recommendation: - Patient has a contact number available for emergencies. The signs and symptoms of potential delayed complications were discussed with the patient. Return to normal activities tomorrow. Written discharge instructions were provided to the patient. - Resume previous diet. - Continue present medications. - Await pathology results. - Repeat upper endoscopy in 5 years for surveillance. - Return to nurse practitioner at appointment to be scheduled. Procedure Code(s): --- Professional --- 55768, Esophagogastroduodenoscopy, flexible, transoral; with biopsy, single or multiple Diagnosis Code(s): --- Professional --- K44.9, Diaphragmatic hernia without obstruction or gangrene K29.70, Gastritis, unspecified, without bleeding K21.9, Gastro-esophageal reflux disease without esophagitis CPT copyright 2020 [employer] (more content not included)... PROVATION [facility] Radiology Study observation (narrative) [facility] HISTORY PHYSICALon HISTORY PHYSICAL HNO ID: [id number] Author: JAYLENE CALLEJAS MD Service: General Surgery Author Type: Physician Type: H&P Filed: 06/11/2024 09:09 Note Text: HISTORY AND PHYSICAL Luis Manuel Guzman Roger JACKSON 1940 REFERRING PHYSICIAN: Deanne Shen APRN.* CHIEF COMPLAINT: New Patient (hernia) HPI: The patient is a 83 year old male referred for endoscopy. Patient presents for hospital discharge for chest pain. Reports admitted on 05/08 for chest pain and later that night he passed a kidney stone and was urinating blood so he was unable to have heart cath until 05/11. Patient received LAQUITA to ostial Lcx after restenosis was found. Patient has follow up with cardiology and will schedule with urology. Patient also has instructions to follow up for cardiac rehab. Patient has had previous stents and no medication changes were made during admission. The patient notes the following upper complaints: Luis Manuel denies abdominal pain.. Luis Manuel notes heartburn. Luis Manuel denies dysphagia. Luis Manuel denies a history of ulcers/ peptic ulcer disease. The patient is being seen by me today at the request of Dr. Shen for my opinion and advice regarding Hiatal hernia Gastroesophageal reflux disease, unspecified whether esophagitis present (primary encounter diagnosis). PAST MEDICAL HISTORY PAST MEDICAL HISTORY Diagnosis Date Advance directive discussed with patient 12/15/2021 Discussed 12/2021 Anemia of chronic disease 10/15/2013 Benign essential tremor 07/03/2010 BPH with obstruction/lower urinary tract symptoms 08/01/2005 Chronic diastolic congestive heart failure (HCC) 12/15/2021 seeing cardio CKD (chronic kidney disease) stage 4, GFR 15-29 ml/min (HCC) 03/04/2017 Coronary artery disease involving [place] mountain coronary artery of white mountain heart without angina pectoris 03/06/[address] Horton Cardio Marc COVID-19 virus infection 05/29/2021 05/27/2021 Diaphragmatic hernia without mention of obstruction or gangrene Hiatal hernia Elevated alkaline phosphatase level 09/24/2023 Elevated bone fraction: NM bone scan 09/2023 was normal. Elevated PSA 03/11/2019 Esophagitis, unspecified ESRD (end stage renal disease) on dialysis (HCC) 07/11/2023 Essential hypertension, benign Ex-smoker 12/26/2020 Started age 18 up to 1.5 PPD and quit at age 35. 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 deficiency ([facility]) 10/15/2013 Living will on file 12/15/2021 DPA: Shea () Mild aortic stenosis 11/27/2021 Seeing Cardio Mixed hyperlipidemia 09/03/2013 Overweight (BMI 25.0-29.9) Parathyroid adenoma 05/27/2013 parathyroidectomy 05/27/13 Personal history of colonic polyps Colon polyps Primary hyperparathyroidism ([facility]) 03/04/2017 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: 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 TIA (transient ischemic attack) 06/2010 Ulcer of esophagus without bleeding Vitamin D deficiency 10/15/2013 PAST SURGICAL HISTORY PAST SURGICAL HISTORY Procedure Laterality Date BX/EXC LYMPH NODE OPEN SUPERFICIAL CC CORONARY STENT 11/18/2023 2 stents to Left Circ COLONOSCOPY 12/22/2019 COLONOSCOPY FLX DX W/COLLJ SPEC WHEN PFRMD 08/2000 Colonoscopy COLONOSCOPY FLX DX W/COLLJ SPEC WHEN PFRMD 10/19/2008 EGD TRANSORAL BIOPSY SINGLE/MULTIPLE 10/19/2008 ESOPHAGOGASTRODUODENOSCOPY TRANSORAL DIAGNOSTIC ESOPHAGOGASTRODUODENOSCOPY TRANSORAL DIAGNOSTIC 12/22/[address] Marcial LAPAROSCOPIC HERNIA REPAIR Right 05/21/2018 recurrent incarcerated direct right inguinal hernia PARATHYROIDECTOMY/EXPLORATI ON PARATHYROIDS 05/27/2013 Parathyroid adenoma PAST SURGICAL HISTORY OF 01/20/2021 supraumbilical ventral hernia RPR 1ST INGUN HRNA AGE 5 YRS/> REDUCIBLE Hernia repair, inguinal BILATERAL CURRENT MEDICATIONS Current Outpatient Medications Medication Sig amLODIPine (NORVASC) 5 mg tablet Take 1 tablet by mouth once daily. (Patient not taking: Reported on 04/10/2024) calcium acetate,phosphat bind, (PHOSLO) 667 mg capsule clopidogrel (PLAVIX) 75 mg tablet Take 1 tablet by mouth every afternoon. atorvastatin (LIPITOR) 40 mg tablet Take 1 tablet by mouth once daily. For cholesterol. calcitriol (ROCALTROL) 0.25 mcg capsule Take 1 capsule by mouth two times a day. calcium citrate (CALCITRATE) 200 mg (950 mg) tab Take 1 tablet by mouth four times daily. ibuprofen (MOTRIN) 200 mg tablet Take 1-2 tablets by mouth every 4 hours as needed for pain. acetaminophen (TYLENOL EXTRA STRENGTH) 500 mg tablet Take 2 tablets by mouth every 6 hours as needed for pain. furosemide (LASIX) 80 mg tablet 1 tablet once daily. Per Cardio, Marc (Patient taking differently: 40 mg once daily. Per Cardio, Marc) metoprolol tartrate, pam (more content not included)... Normal [facility] NURSING PROGon 06-11-2024 NURSING PROG HNO ID: [id number] Author: CORINA LANDRY RN Service: ? Author Type: Registered Nurse Type: Nursing Progress Note Filed: 06/11/2024 10:05 Note Text: pt arrived to phase 2 resting, at bedside. SR up x 2, call light in reach. Corina Landry RN Normal [facility] SURGICAL PATHOLOGYon 024 CASE REPORT Normal [facility] Comment on above: Order Comment: Speci men Type: TISSUE SPECIMENOrdering Facility: [facility] Address: [address] [place] [address] Result Comment: Surg [facility] Pathology Report Case: [id number] Authorizing Provider: Jaylene Callejas MD Collected: 06/11/2024 09:44 AM Ordering Location: Ambulatory Surgery Received: 06/11/2024 12:21 PM Pathologist: Abdelrahman Hayden MD Specimens: A) - Small Bowel, Duodenum, Biopsy B) - Stomach, Antrum, Biopsy, Antral for H/H C) - Esophagus, Distal, Biopsy D) - Esophagus, Mid, Biopsy Performed By: #### S ####[facility] LABCLIA [id number] [place] [address] [place] FINAL DIAGNOSIS Normal [facility] Comment on above: Order Comment: Speci men Type: TISSUE SPECIMENOrdering Facility: [facility] Address: [address] [place] [address] Result Comment: A. D uodenum, biopsy: - Duodenal mucosa with no significant histopathologic findings. B. Stomach, antrum, biopsy: - Gastric antral/oxyntic mucosa with mild chronic inactive gastritis. - No evidence of Helicobacter pylori organisms on H&E stain. C. Esophagus, distal, biopsy: - Squamous mucosa with reflux-associated reactive epithelial changes. - No evidence of increased intraepithelial eosinophils. D. Esophagus, mid, biopsy: - Squamous mucosa with no significant histopathologic findings. - No evidence of increased intraepithelial eosinophils. Performed By: #### S ####[facility] LABCLIA [id number] [place] [address] [place] FINAL PERFORMING LAB Normal [facility] Comment on above: Order Comment: Speci men Type: TISSUE SPECIMENOrdering Facility: [facility] Address: [address] [place] [address] Result Comment: Diag nostic interpretation performed at [facility], [address] [place] [address] CLIA# [id number] Parts Salvager: Sergey Velez M.D. Performed By: #### S ####[facility] LABCLIA [id number] [place] [address] [place] GROSS DESCRIPTION Normal [facility] Comment on above: Order Comment: Speci men Type: TISSUE SPECIMENOrdering Facility: [facility] Address: [address] [place] [address] Result Comment: A. S mall Bowel, Duodenum, Biopsy Received in formalin is one piece of porter, soft tissue measuring 1.0 x 0.2 x 0.1 cm. Totally submitted in one cassette. B. Stomach, Antrum, Biopsy Received in formalin is one piece of porter, soft tissue measuring 1.0 x 0.2 x 0.1 cm. Totally submitted in one cassette. C. Esophagus, Distal, Biopsy Received in formalin are two pieces of porter-white, soft tissue aggregating to 1.2 x 0.3 x 0.1 cm. Totally submitted in one cassette. D. Esophagus, Mid, Biopsy Received in formalin is one piece of porter-white, soft tissue measuring 0.4 x 0.2 x 0.1 cm. Totally submitted in one cassette. Gross examination performed at [facility], [facility] [place] [address] FFS 06/11/2024 10:27 PM Performed By: #### S ####[facility] LABCLIA [id number] [address] [id number] [id number] [facility] Upper GI endoscopy 06-11-2 024 Upper GI endoscopy [facility] Gastrointestinal Endoscopy Patient Name: Luis Manuel Duran Procedure Date: 06/11/2024 9:31 AM Date of : 1940 Admit Type: Outpatient Age: 83 Gender: Male Note Status: Finalized Procedure: Upper GI endoscopy Indications: Gastro-esophageal reflux disease Providers: Jaylene Callejas MD Patient Profile: This is an 83 year old male. Refer to note in patient chart for documentation of history and physical. Referring Physician: Jaylene Calleajs MD (Referring MD), Deanne Shen (Referring MD) Medicines: Fentanyl 50 micrograms IV, Midazolam 3 mg IV, Benzocaine spray Complications: No immediate complications. Estimated blood loss: Minimal. Requesting Provider: Procedure: Pre-Anesthesia Assessment: - Prior to the procedure, a History and Physical was performed, and patient medications and allergies were reviewed. The patient's tolerance of previous anesthesia was also reviewed. The risks and benefits of the procedure and the sedation options and risks were discussed with the patient. All questions were answered, and informed consent was obtained. Prior Anticoagulants: The patient has taken Plavix (clopidogrel), last dose was 1 day prior to procedure. ASA Grade Assessment: III - A patient with severe systemic disease. After reviewing the risks and benefits, the patient was deemed in satisfactory condition to undergo the procedure. After obtaining informed consent, the endoscope was passed under direct vision. Throughout the procedure, the patient's blood pressure, pulse, and oxygen saturations were monitored continuously. The Endoscope was introduced through the mouth, and advanced to the second part of duodenum. The upper GI endoscopy was accomplished without difficulty. The patient tolerated the procedure well. Moderate Sedation: The administration of moderate sedation was initiated at 09:39 AM. Moderate (conscious) sedation was personally administered by the endoscopist. The following parameters were monitored: oxygen saturation, heart rate, blood pressure, respiratory rate, EKG, adequacy of pulmonary ventilation, and response to care. Total physician intraservice time was 7 minutes. Findings: A 3 cm hiatal hernia was present. The Z-line was regular and was found 40 cm from the incisors. Biopsies were taken with a cold forceps for histology. Localized mild inflammation characterized by linear erosions was found in the prepyloric region of the stomach. Biopsies were taken with a cold forceps for Helicobacter pylori testing. The examined duodenum was normal. Biopsies for histology were taken with a cold forceps for evaluation of celiac disease. Impression: - 3 cm hiatal hernia. - Z-line regular, 40 cm from the incisors. Biopsied. - Gastritis. Biopsied. - Normal examined duodenum. Biopsied. Recommendation: - Patient has a contact number available for emergencies. The signs and symptoms of potential delayed complications were discussed with the patient. Return to normal activities tomorrow. Written discharge instructions were provided to the patient. - Resume previous diet. - Continue present medications. - Await pathology results. - Repeat upper endoscopy in 5 years for surveillance. - Return to nurse practitioner at appointment to be scheduled. Procedure Code(s): --- Professional --- 02535, Esophagogastroduodenoscopy, flexible, transoral; with biopsy, single or multiple Diagnosis Code(s): --- Professional --- K44.9, Diaphragmatic hernia without obstruction or gangrene K29.70, Gastritis, unspecified, without bleeding K21.9, Gastro-esophageal reflux disease without esophagitis CPT copyright 2020 [employer]. All rights reserved. The codes documented in this report are preliminary and upon planning specialist review may be revised to meet current compliance requirements. Attending Participation: I personally performed the entire procedure. Scope In: 9:42:49 AM Scope Out: 9:46:49 AM MD Jaylene Burden MD 06/11/2024 9:51:24 AM This report has been signed electronically by Jaylene Callejas MD Number of Addenda: 0 Note Initiated On: 06/11/2024 9:31 AM Estimated Blood Loss: Estimated blood loss was minimal. Normal [facility] CNOVon 05-25-2024 CNOV Office Visit (GENSWS ) LUIS MANUEL DURAN JR ([id number]) 1940 Megan Date Time Provider Department 05/25/24 3:15 PM JAYLENE CALLEJAS GENSWS During your visit today, we recorded the following information about you: Temperature Pulse Respiration Blood pressure 97.6 degrees 85/minute 16/minute 118/58 Weight Height 78.3 kg 1.702 m Jaylene aCllejas MD 05/31/2024 12:14 PM Signed HISTORY AND PHYSICAL Luis Manuel Duran JR 1940 REFERRING PHYSICIAN: Deanne Shen APRN.* CHIEF COMPLAINT: New Patient (hernia) HPI: The patient is a 83 year old male referred for endoscopy. Patient presents for hospital discharge for chest pain. Reports admitted on 05/08 for chest pain and later that night he passed a kidney stone and was urinating blood so he was unable to have heart cath until 05/11. Patient received LAQUITA to ostial Lcx after restenosis was found. Patient has follow up with cardiology and will schedule with urology. Patient also has instructions to follow up for cardiac rehab. Patient has had previous stents and no medication changes were made during admission. The patient notes the following upper complaints: Luis Manuel denies abdominal pain.. Luis Manuel notes heartburn. Luis Manuel denies dysphagia. Luis Manuel denies a history of ulcers/ peptic ulcer disease. The patient is being seen by me today at the request of Dr. Shen for my opinion and advice regarding Hiatal hernia Gastroesophageal reflux disease, unspecified whether esophagitis present (primary encounter diagnosis). PAST MEDICAL HISTORY Diagnosis Date Advance directive discussed with patient 12/15/2021 Discussed 12/2021 Anemia of chronic disease 10/15/2013 Benign essential tremor 07/03/2010 BPH with obstruction/lower urinary tract symptoms 08/01/2005 Chronic diastolic congestive heart failure (HCC) 12/15/2021 seeing cardio CKD (chronic kidney disease) stage 4, GFR 15-29 ml/min ([facility]) 03/04/2017 Coronary artery disease involving white mountain coronary artery of white mountain heart without angina pectoris 03/06/[address] Horton Cardio Marc COVID-19 virus infection 05/29/2021 05/27/2021 Diaphragmatic hernia without mention of obstruction or gangrene Hiatal hernia Elevated alkaline phosphatase level 09/24/2023 Elevated bone fraction: NM bone scan 09/2023 was normal. Elevated PSA 03/11/2019 Esophagitis, unspecified ESRD (end stage renal disease) on dialysis ([facility]) 07/11/2023 Essential hypertension, benign Ex-smoker 12/26/2020 Started age 18 up to 1.5 PPD and quit at age 35. Family history of malignant neoplasm of gastrointestinal tract GERD without esophagitis Gastroesophageal reflux Heart attack ([facility]) 2023 History of COVID-19 05/29/2021 05/27/2021 History of non-ST elevation myocardial infarction (NSTEMI) 03/06/2018 09/06/14-- stent 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 deficiency ([facility]) 10/15/2013 Living will on file 12/15/2021 DPA: Shea () Mild aortic stenosis 11/27/2021 Seeing Cardio Mixed hyperlipidemia 09/03/2013 Overweight (BMI 25.0-29.9) Parathyroid adenoma 05/27/2013 parathyroidectomy 05/27/13 Personal history of colonic polyps Colon polyps Primary hyperparathyroidism ([facility]) 03/04/2017 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: 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 TIA (transient ischemic attack) 06/2010 Ulcer of esophagus without bleeding Vitamin D deficiency 10/15/2013 PAST SURGICAL HISTORY Procedure Laterality Date BX/EXC LYMPH NODE OPEN SUPERFICIAL CC CORONARY STENT 11/18/2023 2 stents to Left Circ COLONOSCOPY 12/22/2019 COLONOSCOPY FLX DX W/COLLJ SPEC WHEN PFRMD 08/2000 Colonoscopy COLONOSCOPY FLX DX W/COLLJ SPEC WHEN PFRMD 10/19/2008 EGD TRANSORAL BIOPSY SINGLE/MULTIPLE 10/19/2008 ESOPHAGOGASTRODUODENOSCOPY TRANSORAL DIAGNOSTIC ESOPHAGOGASTRODUODENOSCOPY TRANSORAL DIAGNOSTIC 12/22/[address] Marcial LAPAROSCOPIC HERNIA REPAIR Right 05/21/2018 recurrent incarcerated direct right inguinal hernia PARATHYROIDECTOMY/EXPLORATI ON PARATHYROIDS 05/27/2013 Parathyroid adenoma PAST SURGICAL HISTORY OF 01/20/2021 supraumbilical ventral hernia RPR 1ST INGUN HRNA AGE 5 YRS/> REDUCIBLE Hernia repair, inguinal BILATERAL Current Outpatient Medications Medication Sig amLODIPine (NORVASC) 5 mg tablet Take 1 tablet by mouth once daily. (Patient not taking: Reported on 04/10/2024) calcium acetate,phosphat bind, (PHOSLO) 667 mg capsule clopidogrel (PLAVIX) 75 mg tablet Take 1 tablet by mouth every afternoon. atorvastatin (LIPITOR) 40 mg tablet Take 1 tablet by mouth once daily. For cholesterol. calcitriol (ROCALTROL) 0.25 mcg capsule Take 1 capsule by mouth two times a day. calcium citrate (CALCITRATE) 200 mg (950 mg) tab Take 1 tablet by mouth four times daily. ibuprofen (MOTRIN) 200 mg tablet Take 1-2 tablets by mouth every 4 hours as needed for pain. acetaminophen (TYLENOL EXTRA STR (more content not included)... Normal [facility] 05-25-2024 [facility] Telephone ([employer]) LUIS MANUEL DURAN JR ([id number]) 1940 M Date Time Provider Department 05/25/24 JAYLENE CALLEJAS During your visit today, we recorded the following information about you: Hodan Up 05/25/2024 3:28 PM Signed Message sent to PCP Dr. Licea in regards ti how long patient is to be off Plavix prior to 06/11/[address] Callejas in [facility] Patient to be notified by our office once cleared Hodan Up [employer] Computing Software Engineer Hodan Up 05/25/2024 4:12 PM Signed Cardiac clearance form faxed to Dr. Horton at [facility] in regards to Plavix Hodan Up [employer] Software Engineer Hodan Up 05/28/2024 10:08 AM Signed Clearance form refaxed to [place] [facility] Hodanmariano Up [employer] Computing Software Engineer Hodan Up 06/02/2024 1:04 PM Signed Left voicemail for Dr. Horton nurse Sarah TOMAS in regards to cardiac clearance response. Left direct line [phone] for any questions Hodan Up [employer] Computing Software Engineer Hodan Up 06/04/2024 11:12 AM Signed Called [facility] in [place] again and left voicemail for nurse again to call me directly and respond back to cardiac clearance fax. Fax confirmations received every time office faxed form over Hodan Up [employer] Software Engineer Hodan Up 06/08/2024 1:53 PM Signed Cardiac clearance form received. Patient is cleared to proceed with EGD but CANNOT stop Plavix and Aspirin. Per Dr. Callejas agreeable to this Patient aware Hodan Up [employer] Computing Software Engineer See scanned doc-attached to encounter as well Allergies As of Date: 05/25/2024 Noted Allergy Reaction AXID (NIZATIDINE) 07/31/2005 16 - Unknown ENTEX PSE (PSEUDOEPHEDRINE-GUAIFE* 16 - Unknown LISINOPRIL 11/22/2010 3 - Cough Date Reviewed: 05/25/2024 Reviewed by: Karuna Pearl, LIEN - Fully Assessed Reason for Visit: Patient Update [1234] Prescriptions as of 06/16/2024 - calcium acetate,phosphat bind, (PHOSLO) 667 mg capsule - clopidogrel (PLAVIX) 75 mg tablet Take 1 tablet by mouth every afternoon. - atorvastatin (LIPITOR) 40 mg tablet Take 1 tablet by mouth once daily. For cholesterol. - calcium citrate (CALCITRATE) 200 mg (950 mg) tab Take 1 tablet by mouth four times daily. - acetaminophen (TYLENOL EXTRA STRENGTH) 500 mg tablet Take 2 tablets by mouth every 6 hours as needed for pain. - furosemide (LASIX) 80 mg tablet 1 tablet once daily. Per Cardio[facility] - metoprolol tartrate, short acting, (LOPRESSOR) 50 mg tablet 0.5 tablets twice daily. - pantoprazole DR (PROTONIX) 40 mg tablet Take 40 mg by mouth once daily. Take one tablet daily - nitroglycerin sublingual (NITROSTAT) 0.4 mg SL tablet Dissolve 1 tablet under the tongue every 5 minutes as needed. - aspirin, enteric coated (ASPIRIN, ENTERIC COATED) 81 mg EC tablet Take 1 tablet by mouth once daily. Problem List As Of Date 05/25/2024 Noted Resolved Essential hypertension, benign [I10] Personal history of colonic polyps [Z86.0100] GERD without esophagitis [K21.9] Unspecified transient cerebral ischemia [G45.9] 01/15/2018 Ulcer of esophagus without bleeding [K22.10] 10/15/2013 BPH with obstruction/lower urinary tract sympto*08/01/2005 Esophagitis, unspecified [K20.90] 10/19/2008 10/15/2013 Benign essential tremor [G25.0] 07/03/2010 Mixed hyperlipidemia [E78.2] 09/03/2013 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 deficiency*10/15/2013 03/04/2017 Vitamin D deficiency [E55.9] 10/15/2013 Anemia of chronic disease [D63.8] 10/15/2013 Parathyroid adenoma [D35.1] 10/15/2013 12/24/2014 Primary hyperparathyroidism (HCC) [E21.0] 03/04/2017 Parathyroid adenoma [D35.1] 03/04/2017 06/03/2020 CKD (chronic kidney disease) stage 4, GFR 15-29*03/04/2017 Coronary artery disease involving white mountain foster*03/06/2018 History of non-ST elevation myocardial infarcti*03/06/2018 Elevated PSA [R97.20] 03/11/2019 Medicare annual wellness visit, subsequent [Z00*12/26/2020 Family history of malignant neoplasm of gastroi* Ex-smoker [Z87.891] 12/26/2020 History of COVID-19 [Z86.16] 05/29/2021 Mild aortic stenosis [I35.0] 11/27/2021 Living will on file [[id number]] 12/15/2021 Advance directive discussed with patient [Z71.8*12/15/2021 Chronic diastolic congestive heart failure (HCC*12/15/2021 Medication management [Z79.899] 02/22/2022 ESRD (end stage renal disease) on dialysis (HCC*07/11/2023 Elevated alkaline phosphatase level [R74.8] 09/24/2023 Encounter Status:Closed by ODELL ALVAREZ on 06/16/24 Normal [facility] CNOVon 05-18-2024 CNOV Office Visit (FAMPWS ) LUIS MANUEL DURAN JR ([id number]) 1940 M Date Time Provider Department 05/18/24 2:20 PM DEANNE SHEN During your visit today, we recorded the following information about you: Pulse Respiration Blood pressure Weight 91/minute 18/minute 134/61 77.6 kg Deanne Shen APRN.MAMMOGRAPHER 05/18/2024 2:31 PM Signed Transitional Care Management TCM Eligibility Documentation The following information was gathered during patient outreach 05/14/2024 Date of Outreach: Outreach Attempt 1: Contact Made Date of Discharge 05/12/2024 Provider Documentation Luis Manuel Duran JR is a 83 year old male here today for a follow up from recent hospitalization. I have reviewed the patient's hospital course including discharge summary, discharge medications , and follow up needs with the patient and any family members present at today's visit. HPI Patient presents for hospital discharge for chest pain. Reports admitted on 05/08 for chest pain and later that night he passed a kidney stone and was urinating blood so he was unable to have heart cath until 05/11. Patient received LAQUITA to ostial Lcx after restenosis was found. Patient has follow up with cardiology and will schedule with urology. Patient also has instructions to follow up for cardiac rehab. Patient has had previous stents and no medication changes were made during admission. PHYSICAL EXAMINATION BP 134/61 Pulse 91 Resp 18 Wt 77.6 kg (171 lb) BMI 26.78 kg/m? GENERAL: well appearing, alert, in no acute distress HEART: regular rate and rhythm. No murmur, rubs or gallops. LUNGS: clear to auscultation, no wheezing, rhonchi, or crackles ABDOMEN: soft, non-tender, non-distended, no masses or organomegaly EXTREMITIES: no lower extremity edema. No skin discoloration. FISTULA:AV Fistula to right lower arm positive thrill, positive bruit. ASSESSMENT/PLAN: 1. ESRD (end stage renal disease) on dialysis ([facility]) - ICD9: 585.6, V45.11, ICD10: N18.6, Z99.2 (primary diagnosis) - eGFR: 17 Stable - Continue dialysis -- and regular follow ups with Dr. Quiles 2. Gastroesophageal reflux disease with esophagitis without hemorrhage - ICD9: 530.81, 530.10, ICD10: K21.00 - Continue treatment with Pantoprazole QD - Setup for Upper GI Series with Follow Through 3. Hiatal hernia - ICD9: 553.3, ICD10: K44.9 - CONSULT TO GENERAL SURGERY 4. Coronary artery disease involving white mountain coronary artery of white mountain heart without angina pectoris - ICD9: 414.01, ICD10: I25.10 -Follow up with cardiology as scheduled -Continue current medications 5. ASHD (arteriosclerotic heart disease) - ICD9: 414.00, ICD10: I25.10 -Follow up with cardiology as scheduled -Continue current medications 6. H/O heart artery stent - ICD9: V45.82, ICD10: Z95.5 -Follow up with cardiology as scheduled -Continue current medications 7. Kidney Stone- ICD10:N20.0 -Follow up with urology Deanne Shen APRN.MAMMOGRAPHER Allergies As of Date: 05/18/2024 Noted Allergy Reaction AXID (NIZATIDINE) 07/31/2005 16 - Unknown ENTEX PSE (PSEUDOEPHEDRINE-GUAIFE* 16 - Unknown LISINOPRIL 11/22/2010 3 - Cough Date Reviewed: 05/18/2024 Reviewed by: Trevin Bermeo MA - Fully Assessed Reason for Visit: Transition Of Care [4074] Primary Visit Diagnosis:ESRD (end stage renal disease) on dialysis ([facility]) [N18.6, Z99.2] Other Visit Diagnoses:Gastroesophageal reflux disease with esophagitis without hemorrhage [K21.00] Hiatal hernia [K44.9] Coronary artery disease involving white mountain coronary artery of white mountain heart without angina pectoris [I25.10] ASHD (arteriosclerotic heart disease) [I25.10] H/O heart artery stent [Z95.5] Kidney stone [N20.0] Order(s):CONSULT TO GENERAL SURGERY [9045] Order #: [id number]: 1 FUTURE Prescriptions as of 05/18/2024 - amLODIPine (NORVASC) 5 mg tablet Take 1 tablet by mouth once daily. - calcium acetate,phosphat bind, (PHOSLO) 667 mg capsule - clopidogrel (PLAVIX) 75 mg tablet Take 1 tablet by mouth every afternoon. - atorvastatin (LIPITOR) 40 mg tablet Take 1 tablet by mouth once daily. For cholesterol. - calcitriol (ROCALTROL) 0.25 mcg capsule Take 1 capsule by mouth two times a day. - calcium citrate (CALCITRATE) 200 mg (950 mg) tab Take 1 tablet by mouth four times daily. - ibuprofen (MOTRIN) 200 mg tablet Take 1-2 tablets by mouth every 4 hours as needed for pain. - acetaminophen (TYLENOL EXTRA STRENGTH) 500 mg tablet Take 2 tablets by mouth every 6 hours as needed for pain. - furosemide (LASIX) 80 mg tablet 1 tablet once daily. Per [facility] - metoprolol tartrate, short acting, (LOPRESSOR) 50 mg tablet 0.5 tablets twice daily. - pantoprazole DR (PROTONIX) 40 mg tablet Take 40 mg by mouth once daily. Take one tablet daily - nitroglycerin sublingual (NITROSTAT) 0.4 mg SL tablet Dissolve 1 tablet under the tongue every 5 (more content not included)... Normal [facility] 05-14-2024 [facility] Telephone (CARLOSRASHAUN) LUIS MANUEL DURAN JR ([id number]) 1940 M Date Time Provider Department 05/14/24 [facility] During your visit today, we recorded the following information about you: Triny Paz LPN 05/14/2024 10:29 AM Signed Pt called in to schedule a hospital follow up. Pt went into [facility] ER 05/08/24 with chest pain and was sent to [facility] and admitted. Pt was d/c on 05/12/24. TCM done and FU apt booked. Triny Paz LPN Allergies As of Date: 05/14/2024 Noted Allergy Reaction AXID (NIZATIDINE) 07/31/2005 16 - Unknown ENTEX PSE (PSEUDOEPHEDRINE-GUAIFE* 16 - Unknown LISINOPRIL 11/22/2010 3 - Cough Date Reviewed: 04/10/2024 Reviewed by: Trevin Bermeo MA - Fully Assessed Reason for Visit: Future Appointment [256] Prescriptions as of 05/14/2024 - amLODIPine (NORVASC) 5 mg tablet Take 1 tablet by mouth once daily. - calcium acetate,phosphat bind, (PHOSLO) 667 mg capsule - clopidogrel (PLAVIX) 75 mg tablet Take 1 tablet by mouth every afternoon. - atorvastatin (LIPITOR) 40 mg tablet Take 1 tablet by mouth once daily. For cholesterol. - calcitriol (ROCALTROL) 0.25 mcg capsule Take 1 capsule by mouth two times a day. - calcium citrate (CALCITRATE) 200 mg (950 mg) tab Take 1 tablet by mouth four times daily. - ibuprofen (MOTRIN) 200 mg tablet Take 1-2 tablets by mouth every 4 hours as needed for pain. - acetaminophen (TYLENOL EXTRA STRENGTH) 500 mg tablet Take 2 tablets by mouth every 6 hours as needed for pain. - furosemide (LASIX) 80 mg tablet 1 tablet once daily. Per Cardio, Marc - metoprolol tartrate, short acting, (LOPRESSOR) 50 mg tablet 0.5 tablets twice daily. - pantoprazole DR (PROTONIX) 40 mg tablet Take 40 mg by mouth once daily. Take one tablet daily - nitroglycerin sublingual (NITROSTAT) 0.4 mg SL tablet Dissolve 1 tablet under the tongue every 5 minutes as needed. - aspirin, enteric coated (ASPIRIN, ENTERIC COATED) 81 mg EC tablet Take 1 tablet by mouth once daily. Problem List As Of Date 05/14/2024 Noted Resolved Essential hypertension, benign [I10] Personal history of colonic polyps [Z86.0100] GERD without esophagitis [K21.9] Unspecified transient cerebral ischemia [G45.9] 01/15/2018 Ulcer of esophagus without bleeding [K22.10] 10/15/2013 BPH with obstruction/lower urinary tract sympto*08/01/2005 Esophagitis, unspecified [K20.90] 10/19/2008 10/15/2013 Benign essential tremor [G25.0] 07/03/2010 Mixed hyperlipidemia [E78.2] 09/03/2013 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 deficiency*10/15/2013 03/04/2017 Vitamin D deficiency [E55.9] 10/15/2013 Anemia of chronic disease [D63.8] 10/15/2013 Parathyroid adenoma [D35.1] 10/15/2013 12/24/2014 Primary hyperparathyroidism (HCC) [E21.0] 03/04/2017 Parathyroid adenoma [D35.1] 03/04/2017 06/03/2020 CKD (chronic kidney disease) stage 4, GFR 15-29*03/04/2017 Coronary artery disease involving white mountain foster*03/06/2018 History of non-ST elevation myocardial infarcti*03/06/2018 Elevated PSA [R97.20] 03/11/2019 Medicare annual wellness visit, subsequent [Z00*12/26/2020 Family history of malignant neoplasm of gastroi* Ex-smoker [Z87.891] 12/26/2020 History of COVID-19 [Z86.16] 05/29/2021 Mild aortic stenosis [I35.0] 11/27/2021 Living will on file [[id number]] 12/15/2021 Advance directive discussed with patient [Z71.8*12/15/2021 Chronic diastolic congestive heart failure (HCC*12/15/2021 Medication management [Z79.899] 02/22/2022 ESRD (end stage renal disease) on dialysis (HCC*07/11/2023 Elevated alkaline phosphatase level [R74.8] 09/24/2023 Encounter Status:Closed by TRINY PAZ on 05/14/24 [facility] .GFRon 05-12-2024 GFR Non- 10 ml/min/1.73sqm [facility] MAIN Comment on above: Result Comment: GFR Population mean for , Non- Americans Ages 20-29 = 116 mL/min/1.73 sq.m. Ages 30-39 = 107 mL/min/1.73 sq.m. Ages 40-49 = 99 mL/min/1.73 sq.m. Ages 50-59 = 93 mL/min/1.73 sq.m. Ages 60-69 = 85 mL/min/1.73 sq.m. Ages 70+ = 75 mL/min/1.73 sq.m. Chronic Kidney Disease: Less than 60 mL/min/1.73 square meters End Stage Renal Disease: Less than 15 mL/min/1.73 square meters Performed By: #### D IFF, BMP, APTT, MORPH, MG, GFR, CBC ####[place] [id number] [address] [place] [address] GFR 12 ml/min/1.73sqm Normal [facility] MAIN Comment on above: Result Comment: GFR Population mean for , Non- Americans Ages 20-29 = 116 mL/min/1.73 sq.m. Ages 30-39 = 107 mL/min/1.73 sq.m. Ages 40-49 = 99 mL/min/1.73 sq.m. Ages 50-59 = 93 mL/min/1.73 sq.m. Ages 60-69 = 85 mL/min/1.73 sq.m. Ages 70+ = 75 mL/min/1.73 sq.m. Chronic Kidney Disease: Less than 60 mL/min/1.73 square meters End Stage Renal Disease: Less than 15 mL/min/1.73 square meters Performed By: #### D IFF, BMP, APTT, MORPH, MG, GFR, CBC ####[place] [id number] [address] [place] [address] .Manual Diffon 05-12-2024 Basophil %, Manual 0.0 % Normal 0.0-2.5 [facility] MAIN Comment on above: Performed By: #### G FR, CMP, A1C, MG, LIPID, TSH, TROPHS #### [place] [id number] [address] [place] [address] Basophil, Abs Manual 0.0 10 3/mcL Normal 0.0-0.3 [facility] MAIN Comment on above: Performed By: #### G FR, CMP, A1C, MG, LIPID, TSH, TROPHS #### [address] [address] Eosinophil %, Manual 2.0 % Normal 0.0-6.0 [facility] MAIN Comment on above: Performed By: #### G FR, CMP, A1C, MG, LIPID, TSH, TROPHS #### [address] [address] Eosinophil, Abs Manual 0.3 10 3/mcL Normal 0.0-0.7 [facility] MAIN Comment on above: Performed By: #### G FR, CMP, A1C, MG, LIPID, TSH, TROPHS #### [address] [address] Lymphocyte %, Manual 13.0 % Low 20.0-40.0 [facility] MAIN Comment on above: Performed By: #### G FR, CMP, A1C, MG, LIPID, TSH, TROPHS #### [address] [address] Lymphocyte, Abs Manual 2.0 10 3/mcL Normal 0.9-4.3 [facility] MAIN Comment on above: Performed By: #### G FR, CMP, A1C, MG, LIPID, TSH, TROPHS #### [address] [address] Monocyte %, Manual 9.0 % Normal 2.0-13.0 [facility] MAIN Comment on above: Performed By: #### G FR, CMP, A1C, MG, LIPID, TSH, TROPHS #### [address] [address] Monocyte, Abs Manual 1.3 10 3/mcL Normal 0.1-1.4 [facility] MAIN Comment on above: Performed By: #### G FR, CMP, A1C, MG, LIPID, TSH, TROPHS #### [address] [address] Neutrophil %, Manual 76.0 % High 50.0-75.0 [facility] MAIN Comment on above: Performed By: #### G FR, CMP, A1C, MG, LIPID, TSH, TROPHS #### [address] [address] Neutrophil, Abs Manual 11.4 10 3/mcL High 2.3-8.1 [facility] MAIN Comment on above: Performed By: #### G FR, CMP, A1C, MG, LIPID, TSH, TROPHS #### [place] [address] Nucleated RBC 0.0 /100 WBC [facility] MAIN Comment on above: Performed By: #### G FR, CMP, A1C, MG, LIPID, TSH, TROPHS #### [place] [address] .Morphon 05-12-2024 Anisocytosis Ql (Bld) 1+ [facility] MAIN Comment on above: Performed By: #### G FR, CMP, A1C, MG, LIPID, TSH, TROPHS #### [place] [address] Hypochrom 1+ [facility] MAIN Comment on above: Performed By: #### G FR, CMP, A1C, MG, LIPID, TSH, TROPHS #### [place] [address] Ovalocytes 1+ [facility] MAIN Comment on above: Performed By: #### G FR, CMP, A1C, MG, LIPID, TSH, TROPHS #### [place] [address] Platelet Clumps Few [facility] MAIN Comment on above: Performed By: #### G FR, CMP, A1C, MG, LIPID, TSH, TROPHS #### [place] [address] Platelet Estimate Normal [facility] MAIN Comment on above: Performed By: #### G FR, CMP, A1C, MG, LIPID, TSH, TROPHS #### [place] [address] Poik 1+ [facility] MAIN Comment on above: Performed By: #### G FR, CMP, A1C, MG, LIPID, TSH, TROPHS #### [place] [address] Polychrom 1+ [facility] MAIN Comment on above: Performed By: #### G FR, CMP, A1C, MG, LIPID, TSH, TROPHS #### [address] [address] Tear Cell 1+ Normal [facility] MAIN Comment on above: Performed By: #### G FR, CMP, A1C, MG, LIPID, TSH, TROPHS #### [address] [address] APTTon 05-12-2024 aPTT Coag (Bld) [Time] 29.2 s Normal 25.0-35.0 [facility] MAIN Comment on above: Order Comment: speci men clotted...notified phleb-Mylene 05/12/2024 06:45:10 EDT Result Comment: For Heparin anticoagulation therapy, the recommended therapeutic range is: 54-77 seconds (APTT Correlation with Anti-Xa therapeutic range of 0.3-0.7 units/ml). PLEASE REFERENCE THE PHARMACY PROTOCOL FOR DOSING. Performed By: #### G FR, CMP, A1C, MG, LIPID, TSH, TROPHS #### [address] [address] BMPon 05-12-2024 BUN/Creatinine Ratio 6.6 ratio Low 10.0-22.0 [facility] MAIN Comment on above: Performed By: #### D IFF, BMP, APTT, MORPH, MG, GFR, CBC ####[address] [address] Calcium [Mass/Vol] 10.0 mg/dL Normal 8.7-10.4 [facility] MAIN Comment on above: Performed By: #### D IFF, BMP, APTT, MORPH, MG, GFR, CBC ####[address] [address] Chloride [Moles/Vol] 100 mmol/L Normal 98-110 [facility] MAIN Comment on above: Performed By: #### D IFF, BMP, APTT, MORPH, MG, GFR, CBC ####[address] [address] CO2 [Moles/Vol] 26 mmol/L Normal 22-32 [facility] MAIN Comment on above: Performed By: #### D IFF, BMP, APTT, MORPH, MG, GFR, CBC ####[address] [address] Creatinine [Mass/Vol] 5.48 mg/dL High 0.60-1.40 [facility] MAIN Comment on above: Result Comment: Test ing performed on [employer] analyzer using enzymatic creatinine methodology. Performed By: #### D IFF, BMP, APTT, MORPH, MG, GFR, CBC ####[place] [address] Electrolyte Balance 10.0 mEq/L Normal 4.0-15.0 [facility] MAIN Comment on above: Performed By: #### D IFF, BMP, APTT, MORPH, MG, GFR, CBC ####[place] [id number] Glucose [Mass/Vol] 90 mg/dL Normal 82-115 [facility] MAIN Comment on above: Performed By: #### D IFF, BMP, APTT, MORPH, MG, GFR, CBC ####[place] [address] Potassium [Moles/Vol] 4.6 mmol/L Normal 3.5-5.0 [facility] MAIN Comment on above: Performed By: #### D IFF, BMP, APTT, MORPH, MG, GFR, CBC ####[address] [address] Sodium [Moles/Vol] 136 mmol/L Normal 136-145 [facility] MAIN Comment on above: Performed By: #### D IFF, BMP, APTT, MORPH, MG, GFR, CBC ####[address] [address] Urea nitrogen [Mass/Vol] 36.0 mg/dL High 8.0-22.0 [facility] MAIN Comment on above: Performed By: #### D IFF, BMP, APTT, MORPH, MG, GFR, CBC ####[address] [address] CBCon 05-12-2024 Platelet 188 10 3/mcL Normal 150-450 [facility] MAIN Comment on above: Performed By: #### G FR, CMP, A1C, MG, LIPID, TSH, TROPHS #### [place] [address] Platelet mean volume (Bld) [Entitic vol] 8.6 fL Normal 6.4-10.5 [facility] MAIN Comment on above: Performed By: #### G FR, CMP, A1C, MG, LIPID, TSH, TROPHS #### [place] [id number] WBC 15.0 10 3/mcL High 4.5-10.8 [facility] MAIN Comment on above: Performed By: #### G FR, CMP, A1C, MG, LIPID, TSH, TROPHS #### [place] [id number] Erythrocyte distribution width (RBC) [Ratio] 17.2 % High 11.5-15.5 [facility] MAIN Comment on above: Performed By: #### G FR, CMP, A1C, MG, LIPID, TSH, TROPHS #### [place] [address] Hematocrit (Bld) [Volume fraction] 30.6 % Low 40.0-52.0 [facility] MAIN Comment on above: Performed By: #### G FR, CMP, A1C, MG, LIPID, TSH, TROPHS #### [place] [address] Hgb 10.1 G/dL Low 13.0-17.5 [facility] MAIN Comment on above: Performed By: #### G FR, CMP, A1C, MG, LIPID, TSH, TROPHS #### [place] [id number] MCH (RBC) [Entitic mass] 30.9 pg Normal 27.0-33.0 [facility] MAIN Comment on above: Performed By: #### G FR, CMP, A1C, MG, LIPID, TSH, TROPHS #### [place] [id number] MCHC 32.9 G/dL Normal 32.0-36.0 [facility] MAIN Comment on above: Performed By: #### G FR, CMP, A1C, MG, LIPID, TSH, TROPHS #### [address] [address] MCV (RBC) [Entitic vol] 94.0 fL Normal 81.0-100.0 [facility] MAIN Comment on above: Performed By: #### G FR, CMP, A1C, MG, LIPID, TSH, TROPHS #### [place] [id number] RBC 3.26 10 6/mcL Low 4.50-6.00 [facility] MAIN Comment on above: Performed By: #### G FR, CMP, A1C, MG, LIPID, TSH, TROPHS #### [place] [address] LABORATORYOrdered By: SYSTEM SYSTEM on 05-12-2024 aPTT Coag (Bld) [Time] 29.2 s Normal 25.0 - 35.0 seconds [facility] SS Comment on above: Interpretive Data: F or Heparin anticoagulation therapy, the recommended therapeutic range is: 54-77 seconds (APTT Correlation with Anti-Xa therapeutic range of 0.3-0.7 units/ml). PLEASE REFERENCE THE PHARMACY PROTOCOL FOR DOSING. Anisocytosis Ql (Bld) 1+ *NA* (05/12/24 5:47 AM) Invalid Interpretation Code AH Workflow SS Basophils (Bld) [#/Vol] 0.0 103/mcL Normal 0.0 - 0.3 10^3/mcL AH Workflow SS Basophils/100 WBC (Bld) 0.0 % Normal 0.0 - 2.5 % AH Workflow SS Calcium [Mass/Vol] 10.0 mg/dL Normal 8.7 - 10. 4 mg/dL ADM SS Chloride [Moles/Vol] 100 mmol/L Normal 98 - 110 mEq/L ADM SS CO2 [Moles/Vol] 26 mmol/L Normal 22 - 32 mEq/L ADM SS Creatinine [Mass/Vol] 5.48 mg/dL High 0.60 - 1.40 mg/dL AH ADM SS Comment on above: Interpretive Data: T esting performed on [employer] analyzer using enzymatic creatinine methodology. Dacrocytes LM Ql (Bld) 1+ *NA* (05/12/24 5:47 AM) Invalid Interpretation Code AH Workflow SS Electrolyte Balance 10.0 mEq/L Normal 4.0 - 15 .0 mEq/L ADM SS Eosinophils (Bld) [#/Vol] 0.3 103/mcL Normal 0.0 - 0.7 10^3/mcL Workflow SS Eosinophils/100 WBC (Bld) 2.0 % Normal 0.0 - 6.0 % Workflow SS Erythrocyte distribution width (RBC) [Ratio] 17.2 % High 11.5 - 15.5 % Workflow GFR/1.73 sq M.predicted among blacks MDRD (S/P/Bld) [Vol rate/Area] 12 ml/min/1.73sqm Invalid Interpretation Code [facility] Comment on above: Interpretive Data: GFR Population mean for , Non- Americans Ages 20-29 = 116 mL/min/1.73 sq.m. Ages 30-39 = 107 mL/min/1.73 sq.m. Ages 40-49 = 99 mL/min/1.73 sq.m. Ages 50-59 = 93 mL/min/1.73 sq.m. Ages 60-69 = 85 mL/min/1.73 sq.m. Ages 70+ = 75 mL/min/1.73 sq.m. Chronic Kidney Disease: Less than 60 mL/min/1.73 square meters End Stage Renal Disease: Less than 15 mL/min/1.73 square meters GFR/1.73 sq M.predicted among non-blacks MDRD (S/P/Bld) [Vol rate/Area] 10 ml/min/1.73sqm Invalid Interpretation Code [facility] Comment on above: Interpretive Data: GFR Population mean for , Non- Americans Ages 20-29 = 116 mL/min/1.73 sq.m. Ages 30-39 = 107 mL/min/1.73 sq.m. Ages 40-49 = 99 mL/min/1.73 sq.m. Ages 50-59 = 93 mL/min/1.73 sq.m. Ages 60-69 = 85 mL/min/1.73 sq.m. Ages 70+ = 75 mL/min/1.73 sq.m. Chronic Kidney Disease: Less than 60 mL/min/1.73 square meters End Stage Renal Disease: Less than 15 mL/min/1.73 square meters Glucose [Mass/Vol] 90 mg/dL Normal 82 - 115 mg/dL [facility] Hematocrit (Bld) [Volume fraction] 30.6 % Low 40.0 - 52.0 % AH Workflow SS Hemoglobin (Bld) [Mass/Vol] 10.1 G/dL Low 13.0 - 17.5 G/dL AH Workflow SS Hypochromia Ql (Bld) 1+ *NA* (05/12/24 5:47 AM) Invalid Interpretation Code AH Workflow SS Lymphocytes (Bld) [#/Vol] 2.0 103/mcL Normal 0.9 - 4.3 10^3/mcL AH Workflow SS Lymphocytes/100 WBC (Bld) 13.0 % Low 20.0 - 40.0 % AH Workflow SS Magnesium [Mass/Vol] 2.2 mg/dL Normal 1.6 - 2.4 mg/dL AH ADM SS MCH (RBC) [Entitic mass] 30.9 pg Normal 27.0 - 33.0 pg AH Workflow SS MCHC 32.9 G/dL Normal 32.0 - 36.0 G/dL AH Workflow SS MCV (RBC) [Entitic vol] 94.0 fL Normal 81.0 - 100.0 fL AH Workflow SS Monocytes (Bld) [#/Vol] 1.3 103/mcL Normal 0.1 - 1.4 10^3/mcL AH Workflow SS Monocytes/100 WBC (Bld) 9.0 % Normal 2.0 - 13.0 % AH Workflow SS Neutrophils (Bld) [#/Vol] 11.4 103/mcL High 2.3 - 8.1 10^3/mcL AH Workflow SS Neutrophils/100 WBC (Bld) 76.0 % High 50.0 - 75.0 % AH Workflow SS Nucleated RBC 0.0 /100 WBC Invalid Interpretation Code AH Workflow SS Ovalocytes LM Ql (Bld) 1+ *NA* (05/12/24 5:47 AM) Invalid Interpretation Code AH Workflow SS Platelet Clumps Few *NA* (05/12/24 5:47 AM) Invalid Interpretation Code AH Workflow SS Platelet mean volume (Bld) [Entitic vol] 8.6 fL Normal 6.4 - 10.5 fL AH Workflow SS Platelets (Bld) [#/Vol] 188 103/mcL Normal 150 - 450 10^3/mcL AH Workflow SS Platelets LM Ql (Bld) Normal *NA* (05/12/24 5:47 AM) Invalid Interpretation Code AH Workflow SS Poikilocytosis LM Ql (Bld) 1+ *NA* (05/12/24 5:47 AM) Invalid Interpretation Code Workflow SS Polychromasia LM Ql (Bld) 1+ *NA* (05/12/24 5:47 AM) Invalid Interpretation Code AH Workflow SS Potassium [Moles/Vol] 4.6 mmol/L Normal 3.5 - 5.0 mEq/L AH ADM SS RBC (Bld) [#/Vol] 3.26 106/mcL Low 4.50 - 6.0 0 10^6/mcL AH Workflow SS Sodium [Moles/Vol] 136 mmol/L Normal 136 - 145 mEq/L ADM SS Urea nitrogen [Mass/Vol] 36.0 mg/dL High 8.0 - 22.0 mg/dL ADM SS Urea nitrogen/Creatinine [Mass ratio] 6.6 ratio Low 10.0 - 22.0 ratio ADM SS WBC (Bld) [#/Vol] 15.0 103/mcL High 4.5 - 10.8 10^3/mcL Workflow SS MGon 05-12-2024 Magnesium [Mass/Vol] 2.2 mg/dL Normal 1.6-2.4 [facility] MAIN Comment on above: Performed By: #### D IFF, BMP, APTT, MORPH, MG, GFR, CBC ####[address] [address] .Auto Diffon 05-11-2024 Basophil, Absolute 0.0 10 3/mcL Normal 0.0-0.3 [facility] MAIN Comment on above: Performed By: #### G FR, CMP, A1C, MG, LIPID, TSH, TROPHS #### [address] [address] Basophils/100 WBC (Bld) 0.6 % Normal 0.0-2.5 [facility] MAIN Comment on above: Performed By: #### G FR, CMP, A1C, MG, LIPID, TSH, TROPHS #### [address] [address] Eosinophil, Absolute 0.4 10 3/mcL Normal 0.0-0.7 [facility] MAIN Comment on above: Performed By: #### G FR, CMP, A1C, MG, LIPID, TSH, TROPHS #### [address] [address] Eosinophils/100 WBC (Bld) 6.4 % High 0.0-6.0 [facility] MAIN Comment on above: Performed By: #### G FR, CMP, A1C, MG, LIPID, TSH, TROPHS #### [address] [address] Lymphocyte, Absolute 1.3 10 3/mcL Normal 0.9-4.3 [facility] MAIN Comment on above: Performed By: #### G FR, CMP, A1C, MG, LIPID, TSH, TROPHS #### [address] [address] Lymphocytes/100 WBC (Bld) 20.0 % Normal 20.0-40.0 [facility] MAIN Comment on above: Performed By: #### G FR, CMP, A1C, MG, LIPID, TSH, TROPHS #### [address] [address] Monocyte, Absolute 0.7 10 3/mcL Normal 0.1-1.4 [facility] MAIN Comment on above: Performed By: #### G FR, CMP, A1C, MG, LIPID, TSH, TROPHS #### [address] [address] Monocytes/100 WBC (Bld) 11.6 % Normal 2.0-13.0 [facility] MAIN Comment on above: Performed By: #### G FR, CMP, A1C, MG, LIPID, TSH, TROPHS #### [address] [address] Neutrophils/100 WBC (Bld) 61.4 % Normal 50.0-75.0 [facility] MAIN Comment on above: Performed By: #### G FR, CMP, A1C, MG, LIPID, TSH, TROPHS #### [address] [address] .GFRon 05-11-2024 GFR 7 ml/min/1.73sqm Normal [facility] MAIN Comment on above: Result Comment: GFR Population mean for , Non- Americans Ages 20-29 = 116 mL/min/1.73 sq.m. Ages 30-39 = 107 mL/min/1.73 sq.m. Ages 40-49 = 99 mL/min/1.73 sq.m. Ages 50-59 = 93 mL/min/1.73 sq.m. Ages 60-69 = 85 mL/min/1.73 sq.m. Ages 70+ = 75 mL/min/1.73 sq.m. Chronic Kidney Disease: Less than 60 mL/min/1.73 square meters End Stage Renal Disease: Less than 15 mL/min/1.73 square meters Performed By: #### G FR, CMP, A1C, MG, LIPID, TSH, TROPHS #### [address] [address] GFR Non- 6 ml/min/1.73sqm [facility] MAIN Comment on above: Result Comment: GFR Population mean for , Non- Americans Ages 20-29 = 116 mL/min/1.73 sq.m. Ages 30-39 = 107 mL/min/1.73 sq.m. Ages 40-49 = 99 mL/min/1.73 sq.m. Ages 50-59 = 93 mL/min/1.73 sq.m. Ages 60-69 = 85 mL/min/1.73 sq.m. Ages 70+ = 75 mL/min/1.73 sq.m. Chronic Kidney Disease: Less than 60 mL/min/1.73 square meters End Stage Renal Disease: Less than 15 mL/min/1.73 square meters Performed By: #### G FR, CMP, A1C, MG, LIPID, TSH, TROPHS #### [address] [address] GFR 7 ml/min/1.73sqm [facility] MAIN Comment on above: Result Comment: GFR Population mean for , Non- Americans Ages 20-29 = 116 mL/min/1.73 sq.m. Ages 30-39 = 107 mL/min/1.73 sq.m. Ages 40-49 = 99 mL/min/1.73 sq.m. Ages 50-59 = 93 mL/min/1.73 sq.m. Ages 60-69 = 85 mL/min/1.73 sq.m. Ages 70+ = 75 mL/min/1.73 sq.m. Chronic Kidney Disease: Less than 60 mL/min/1.73 square meters End Stage Renal Disease: Less than 15 mL/min/1.73 square meters Performed By: #### G FR, CMP, A1C, MG, LIPID, TSH, TROPHS #### [address] [address] GFR Non- 6 ml/min/1.73sqm Normal [facility] MAIN Comment on above: Result Comment: GFR Population mean for , Non- Americans Ages 20-29 = 116 mL/min/1.73 sq.m. Ages 30-39 = 107 mL/min/1.73 sq.m. Ages 40-49 = 99 mL/min/1.73 sq.m. Ages 50-59 = 93 mL/min/1.73 sq.m. Ages 60-69 = 85 mL/min/1.73 sq.m. Ages 70+ = 75 mL/min/1.73 sq.m. Chronic Kidney Disease: Less than 60 mL/min/1.73 square meters End Stage Renal Disease: Less than 15 mL/min/1.73 square meters Performed By: #### G FR, CMP, A1C, MG, LIPID, TSH, TROPHS #### [address] [address] .NEUABSon 05-11-2024 Neutrophil, Absolute 3.9 10 3/mcL Normal 2.3-8.1 [facility] MAIN Comment on above: Performed By: #### G FR, CMP, A1C, MG, LIPID, TSH, TROPHS #### [address] [address] APTTon 05-11-2024 aPTT Coag (Bld) [Time] 64.7 s High 25.0-35.0 [facility] MAIN Comment on above: Result Comment: For Heparin anticoagulation therapy, the recommended therapeutic range is: 54-77 seconds (APTT Correlation with Anti-Xa therapeutic range of 0.3-0.7 units/ml). PLEASE REFERENCE THE PHARMACY PROTOCOL FOR DOSING. Performed By: #### G FR, CMP, A1C, MG, LIPID, TSH, TROPHS #### [address] [address] [facility] BUN/Creatinine Ratio 8.8 ratio Low 10.0-22.0 [facility] MAIN Comment on above: Performed By: #### G FR, CMP, A1C, MG, LIPID, TSH, TROPHS #### [address] [address] Calcium [Mass/Vol] 9.3 mg/dL Normal 8.7-10.4 [facility] MAIN Comment on above: Performed By: #### G FR, CMP, A1C, MG, LIPID, TSH, TROPHS #### [address] [address] Chloride [Moles/Vol] 100 mmol/L Normal 98-110 [facility] MAIN Comment on above: Performed By: #### G FR, CMP, A1C, MG, LIPID, TSH, TROPHS #### [place] [id number] CO2 [Moles/Vol] 21 mmol/L Low 22-32 [facility] MAIN Comment on above: Performed By: #### G FR, CMP, A1C, MG, LIPID, TSH, TROPHS #### [address] [address] Creatinine [Mass/Vol] 9.02 mg/dL High 0.60-1.40 [facility] MAIN Comment on above: Result Comment: Test ing performed on [employer] analyzer using enzymatic creatinine methodology. Performed By: #### G FR, CMP, A1C, MG, LIPID, TSH, TROPHS #### [place] [id number] Electrolyte Balance 15.0 mEq/L Normal 4.0-15.0 [facility] MAIN Comment on above: Performed By: #### G FR, CMP, A1C, MG, LIPID, TSH, TROPHS #### [address] [address] Glucose [Mass/Vol] 91 mg/dL Normal 82-115 [facility] MAIN Comment on above: Performed By: #### G FR, CMP, A1C, MG, LIPID, TSH, TROPHS #### [address] [address] Potassium [Moles/Vol] 5.1 mmol/L High 3.5-5.0 [facility] MA[facility] Comment on above: Performed By: #### G FR, CMP, A1C, MG, LIPID, TSH, TROPHS #### [place] [address] Sodium [Moles/Vol] 136 mmol/L Normal 136-145 [facility] MAIN Comment on above: Performed By: #### G FR, CMP, A1C, MG, LIPID, TSH, TROPHS #### [place] [address] Urea nitrogen [Mass/Vol] 79.0 mg/dL High 8.0-22.0 [facility] Comment on above: Performed By: #### G FR, CMP, A1C, MG, LIPID, TSH, TROPHS #### [place] [address] CBCon 05-11-2024 Erythrocyte distribution width (RBC) [Ratio] 17.0 % High 11.5-15.5 [facility] MAIN Comment on above: Performed By: #### G FR, CMP, A1C, MG, LIPID, TSH, TROPHS #### [place] [address] Hematocrit (Bld) [Volume fraction] 29.5 % Low 40.0-52.0 [facility] MA[facility] Comment on above: Performed By: #### G FR, CMP, A1C, MG, LIPID, TSH, TROPHS #### [place] [address] Hgb 10.0 G/dL Low 13.0-17.5 [facility] MAIN Comment on above: Performed By: #### G FR, CMP, A1C, MG, LIPID, TSH, TROPHS #### [place] [address] MCH (RBC) [Entitic mass] 31.8 pg Normal 27.0-33.0 [facility] MAIN Comment on above: Performed By: #### G FR, CMP, A1C, MG, LIPID, TSH, TROPHS #### [place] [address] MCHC 34.1 G/dL Normal 32.0-36.0 [facility] MA[facility] Comment on above: Performed By: #### G FR, CMP, A1C, MG, LIPID, TSH, TROPHS #### [place] [address] MCV (RBC) [Entitic vol] 93.4 fL Normal 81.0-100.0 [facility] MA[facility] Comment on above: Performed By: #### G FR, CMP, A1C, MG, LIPID, TSH, TROPHS #### [place] [address] Platelet 173 10 3/mcL Normal 150-450 [facility] Comment on above: Performed By: #### G FR, CMP, A1C, MG, LIPID, TSH, TROPHS #### [place] [address] Platelet mean volume (Bld) [Entitic vol] 8.4 fL Normal 6.4-10.5 [facility] Comment on above: Performed By: #### G FR, CMP, A1C, MG, LIPID, TSH, TROPHS #### [place] [address] RBC 3.16 10 6/mcL Low 4.50-6.00 [facility] Comment on above: Performed By: #### G FR, CMP, A1C, MG, LIPID, TSH, TROPHS #### [place] [address] WBC 6.3 10 3/mcL Normal 4.5-10.8 [facility] Comment on above: Performed By: #### G FR, CMP, A1C, MG, LIPID, TSH, TROPHS #### [place] [address] CREon 05-11-2024 Creatinine [Mass/Vol] 9.08 mg/dL High 0.60-1.40 [facility] Comment on above: Result Comment: Test ing performed on [employer] analyzer using enzymatic creatinine methodology. Performed By: #### G FR, CMP, A1C, MG, LIPID, TSH, TROPHS #### [place] [address] LABORATORYOrdered By: SYSTEM SYSTEM on 05-11-2024 Creatinine [Mass/Vol] 9.08 mg/dL High 0.60 - 1.40 mg/dL ADM Comment on above: Interpretive Data: T esting performed on [employer] analyzer using enzymatic creatinine methodology. GFR/1.73 sq M.predicted among blacks MDRD (S/P/Bld) [Vol rate/Area] 7 ml/min/1.73sqm Invalid Interpretation Code [facility] Comment on above: Interpretive Data: GFR Population mean for , Non- Americans Ages 20-29 = 116 mL/min/1.73 sq.m. Ages 30-39 = 107 mL/min/1.73 sq.m. Ages 40-49 = 99 mL/min/1.73 sq.m. Ages 50-59 = 93 mL/min/1.73 sq.m. Ages 60-69 = 85 mL/min/1.73 sq.m. Ages 70+ = 75 mL/min/1.73 sq.m. Chronic Kidney Disease: Less than 60 mL/min/1.73 square meters End Stage Renal Disease: Less than 15 mL/min/1.73 square meters GFR/1.73 sq M.predicted among non-blacks MDRD (S/P/Bld) [Vol rate/Area] 6 ml/min/1.73sqm Invalid Interpretation Code [facility] Comment on above: Interpretive Data: GFR Population mean for , Non- Americans Ages 20-29 = 116 mL/min/1.73 sq.m. Ages 30-39 = 107 mL/min/1.73 sq.m. Ages 40-49 = 99 mL/min/1.73 sq.m. Ages 50-59 = 93 mL/min/1.73 sq.m. Ages 60-69 = 85 mL/min/1.73 sq.m. Ages 70+ = 75 mL/min/1.73 sq.m. Chronic Kidney Disease: Less than 60 mL/min/1.73 square meters End Stage Renal Disease: Less than 15 mL/min/1.73 square meters aPTT Coag (Bld) [Time] 64.7 s High 25.0 - 35.0 seconds [facility] Comment on above: Interpretive Data: F or Heparin anticoagulation therapy, the recommended therapeutic range is: 54-77 seconds (APTT Correlation with Anti-Xa therapeutic range of 0.3-0.7 units/ml). PLEASE REFERENCE THE PHARMACY PROTOCOL FOR DOSING. Basophils (Bld) [#/Vol] 0.0 103/mcL Normal 0.0 - 0.3 10^3/mcL [facility] Basophils/100 WBC (Bld) 0.6 % Normal 0.0 - 2.5 % [facility] Calcium [Mass/Vol] 9.3 mg/dL Normal 8.7 - 10. 4 mg/dL AH ADM SS Chloride [Moles/Vol] 100 mmol/L Normal 98 - 110 mEq/L AH ADM SS CO2 [Moles/Vol] 21 mmol/L Low 22 - 32 mEq/L AH ADM SS Creatinine [Mass/Vol] 9.02 mg/dL High 0.60 - 1.40 mg/dL AH ADM SS Comment on above: Interpretive Data: T esting performed on [employer] analyzer using enzymatic creatinine methodology. Electrolyte Balance 15.0 mEq/L Normal 4.0 - 15 .0 mEq/L AH ADM SS Eosinophils (Bld) [#/Vol] 0.4 103/mcL Normal 0.0 - 0.7 10^3/mcL AH Workflow SS Eosinophils/100 WBC (Bld) 6.4 % High 0.0 - 6.0 % AH Workflow SS Erythrocyte distribution width (RBC) [Ratio] 17.0 % High 11.5 - 15.5 % AH Workflow SS GFR/1.73 sq M.predicted among blacks MDRD (S/P/Bld) [Vol rate/Area] 7 ml/min/1.73sqm Invalid Interpretation Code ADM SS Comment on above: Interpretive Data: GFR Population mean for , Non- Americans Ages 20-29 = 116 mL/min/1.73 sq.m. Ages 30-39 = 107 mL/min/1.73 sq.m. Ages 40-49 = 99 mL/min/1.73 sq.m. Ages 50-59 = 93 mL/min/1.73 sq.m. Ages 60-69 = 85 mL/min/1.73 sq.m. Ages 70+ = 75 mL/min/1.73 sq.m. Chronic Kidney Disease: Less than 60 mL/min/1.73 square meters End Stage Renal Disease: Less than 15 mL/min/1.73 square meters GFR/1.73 sq M.predicted among non-blacks MDRD (S/P/Bld) [Vol rate/Area] 6 ml/min/1.73sqm Invalid Interpretation Code ADM SS Comment on above: Interpretive Data: GFR Population mean for , Non- Americans Ages 20-29 = 116 mL/min/1.73 sq.m. Ages 30-39 = 107 mL/min/1.73 sq.m. Ages 40-49 = 99 mL/min/1.73 sq.m. Ages 50-59 = 93 mL/min/1.73 sq.m. Ages 60-69 = 85 mL/min/1.73 sq.m. Ages 70+ = 75 mL/min/1.73 sq.m. Chronic Kidney Disease: Less than 60 mL/min/1.73 square meters End Stage Renal Disease: Less than 15 mL/min/1.73 square meters Glucose [Mass/Vol] 91 mg/dL Normal 82 - 115 mg/dL ADM SS Hematocrit (Bld) [Volume fraction] 29.5 % Low 40.0 - 52.0 % AH Workflow SS Hemoglobin (Bld) [Mass/Vol] 10.0 G/dL Low 13.0 - 17.5 G/dL AH Workflow SS Lymphocytes (Bld) [#/Vol] 1.3 103/mcL Normal 0.9 - 4.3 10^3/mcL Workflow SS Lymphocytes/100 WBC (Bld) 20.0 % Normal 20.0 - 40.0 % AH Workflow SS Magnesium [Mass/Vol] 2.1 mg/dL Normal 1.6 - 2.4 mg/dL ADM SS MCH (RBC) [Entitic mass] 31.8 pg Normal 27.0 - 33.0 pg AH Workflow SS MCHC 34.1 G/dL Normal 32.0 - 36.0 G/dL Workflow SS MCV (RBC) [Entitic vol] 93.4 fL Normal 81.0 - 100.0 fL Workflow SS Monocytes (Bld) [#/Vol] 0.7 103/mcL Normal 0.1 - 1.4 10^3/mcL AH Workflow SS Monocytes/100 WBC (Bld) 11.6 % Normal 2.0 - 13.0 % AH Workflow SS Neutrophils (Bld) [#/Vol] 3.9 103/mcL Normal 2.3 - 8.1 10^3/mcL Workflow SS Neutrophils/100 WBC (Bld) 61.4 % Normal 50.0 - 75.0 % Workflow SS Phosphate [Mass/Vol] 6.7 mg/dL High 2.4 - 5.1 mg/dL ADM SS Comment on above: Interpretive Data: * *Note - New Reference Range in effect 20 Platelet mean volume (Bld) [Entitic vol] 8.4 fL Normal 6.4 - 10.5 fL Workflow SS Platelets (Bld) [#/Vol] 173 103/mcL Normal 150 - 450 10^3/mcL Workflow SS Potassium [Moles/Vol] 5.1 mmol/L High 3.5 - 5.0 mEq/L ADM SS RBC (Bld) [#/Vol] 3.16 106/mcL Low 4.50 - 6.0 0 10^6/mcL Workflow SS Sodium [Moles/Vol] 136 mmol/L Normal 136 - 145 mEq/L ADM SS Urea nitrogen [Mass/Vol] 79.0 mg/dL High 8.0 - 22.0 mg/dL ADM SS Urea nitrogen/Creatinine [Mass ratio] 8.8 ratio Low 10.0 - 22.0 ratio ADM SS WBC (Bld) [#/Vol] 6.3 103/mcL Normal 4.5 - 10.8 10^3/mcL Workflow SS MGon 05-11-2024 Magnesium [Mass/Vol] 2.1 mg/dL Normal 1.6-2.4 [facility] Comment on above: Performed By: #### G FR, CMP, A1C, MG, LIPID, TSH, TROPHS #### [address] [address] PHOSon 05-11-2024 Phosphate [Mass/Vol] 6.7 mg/dL High 2.4-5.1 [facility] Comment on above: Result Comment: No te - New Reference Range in effect 20 Performed By: #### G FR, CMP, A1C, MG, LIPID, TSH, TROPHS #### [address] [address] .Auto Diffon 05-10-2024 Basophil, Absolute 0.1 10 3/mcL Normal 0.0-0.3 [facility] Comment on above: Performed By: #### G FR, CMP, A1C, MG, LIPID, TSH, TROPHS #### [address] [address] Basophils/100 WBC (Bld) 0.8 % Normal 0.0-2.5 [facility] Comment on above: Performed By: #### G FR, CMP, A1C, MG, LIPID, TSH, TROPHS #### [address] [address] Eosinophil, Absolute 0.4 10 3/mcL Normal 0.0-0.7 [facility] Comment on above: Performed By: #### G FR, CMP, A1C, MG, LIPID, TSH, TROPHS #### [address] [address] Eosinophils/100 WBC (Bld) 5.6 % Normal 0.0-6.0 [facility] Comment on above: Performed By: #### G FR, CMP, A1C, MG, LIPID, TSH, TROPHS #### [address] [address] Lymphocyte, Absolute 1.3 10 3/mcL Normal 0.9-4.3 [facility] Comment on above: Performed By: #### G FR, CMP, A1C, MG, LIPID, TSH, TROPHS #### [address] [address] Lymphocytes/100 WBC (Bld) 19.1 % Low 20.0-40.0 [facility] Comment on above: Performed By: #### G FR, CMP, A1C, MG, LIPID, TSH, TROPHS #### [address] [address] Monocyte, Absolute 0.8 10 3/mcL Normal 0.1-1.4 [facility] Comment on above: Performed By: #### G FR, CMP, A1C, MG, LIPID, TSH, TROPHS #### [address] [address] Monocytes/100 WBC (Bld) 11.6 % Normal 2.0-13.0 [facility] Comment on above: Performed By: #### G FR, CMP, A1C, MG, LIPID, TSH, TROPHS #### [address] [address] Neutrophils/100 WBC (Bld) 62.9 % Normal 50.0-75.0 [facility] Comment on above: Performed By: #### G FR, CMP, A1C, MG, LIPID, TSH, TROPHS #### [address] [address] .GFRon 05-10-2024 GFR Non- 7 ml/min/1.73sqm [facility] Comment on above: Result Comment: GFR Population mean for , Non- Americans Ages 20-29 = 116 mL/min/1.73 sq.m. Ages 30-39 = 107 mL/min/1.73 sq.m. Ages 40-49 = 99 mL/min/1.73 sq.m. Ages 50-59 = 93 mL/min/1.73 sq.m. Ages 60-69 = 85 mL/min/1.73 sq.m. Ages 70+ = 75 mL/min/1.73 sq.m. Chronic Kidney Disease: Less than 60 mL/min/1.73 square meters End Stage Renal Disease: Less than 15 mL/min/1.73 square meters Performed By: #### G FR, CMP, A1C, MG, LIPID, TSH, TROPHS #### [address] [address] GFR 8 ml/min/1.73sqm [facility] Comment on above: Result Comment: GFR Population mean for , Non- Americans Ages 20-29 = 116 mL/min/1.73 sq.m. Ages 30-39 = 107 mL/min/1.73 sq.m. Ages 40-49 = 99 mL/min/1.73 sq.m. Ages 50-59 = 93 mL/min/1.73 sq.m. Ages 60-69 = 85 mL/min/1.73 sq.m. Ages 70+ = 75 mL/min/1.73 sq.m. Chronic Kidney Disease: Less than 60 mL/min/1.73 square meters End Stage Renal Disease: Less than 15 mL/min/1.73 square meters Performed By: #### G FR, CMP, A1C, MG, LIPID, TSH, TROPHS #### [address] [address] .NEUABSon 05-10-2024 Neutrophil, Absolute 4.1 10 3/mcL Normal 2.3-8.1 [facility] Comment on above: Performed By: #### G FR, CMP, A1C, MG, LIPID, TSH, TROPHS #### [address] [address] APTTon 05-10-2024 aPTT Coag (Bld) [Time] 60.1 s High 25.0-35.0 [facility] Comment on above: Result Comment: For Heparin anticoagulation therapy, the recommended therapeutic range is: 54-77 seconds (APTT Correlation with Anti-Xa therapeutic range of 0.3-0.7 units/ml). PLEASE REFERENCE THE PHARMACY PROTOCOL FOR DOSING. Performed By: #### G FR, CMP, A1C, MG, LIPID, TSH, TROPHS #### [address] [address] aPTT Coag (Bld) [Time] 57.1 s High 25.0-35.0 [facility] Comment on above: Result Comment: For Heparin anticoagulation therapy, the recommended therapeutic range is: 54-77 seconds (APTT Correlation with Anti-Xa therapeutic range of 0.3-0.7 units/ml). PLEASE REFERENCE THE PHARMACY PROTOCOL FOR DOSING. Performed By: #### G FR, CMP, A1C, MG, LIPID, TSH, TROPHS #### [place] [address] aPTT Coag (Bld) [Time] 68.5 s High 25.0-35.0 [facility] Comment on above: Result Comment: No n ormals available. Specimen drawn from an IV arm. - [id number] - 05/10/24, 6:31 AM For Heparin anticoagulation therapy, the recommended therapeutic range is: 54-77 seconds (APTT Correlation with Anti-Xa therapeutic range of 0.3-0.7 units/ml). PLEASE REFERENCE THE PHARMACY PROTOCOL FOR DOSING. Performed By: #### G FR, CMP, A1C, MG, LIPID, TSH, TROPHS #### [address] [address] aPTT Coag (Bld) [Time] 58.5 s High 25.0-35.0 [facility] Comment on above: Result Comment: For Heparin anticoagulation therapy, the recommended therapeutic range is: 54-77 seconds (APTT Correlation with Anti-Xa therapeutic range of 0.3-0.7 units/ml). PLEASE REFERENCE THE PHARMACY PROTOCOL FOR DOSING. Performed By: #### A PTT #### [address] [address] BMPon 05-10-2024 BUN/Creatinine Ratio 8.0 ratio Low 10.0-22.0 [facility] Comment on above: Performed By: #### G FR, CMP, A1C, MG, LIPID, TSH, TROPHS #### [address] [address] Calcium [Mass/Vol] 9.3 mg/dL Normal 8.7-10.4 [facility] Comment on above: Performed By: #### G FR, CMP, A1C, MG, LIPID, TSH, TROPHS #### [address] [address] Chloride [Moles/Vol] 99 mmol/L Normal 98-110 [facility] Comment on above: Performed By: #### G FR, CMP, A1C, MG, LIPID, TSH, TROPHS #### [address] [address] CO2 [Moles/Vol] 25 mmol/L Normal 22-32 [facility] Comment on above: Performed By: #### G FR, CMP, A1C, MG, LIPID, TSH, TROPHS #### [address] [address] Creatinine [Mass/Vol] 7.49 mg/dL High 0.60-1.40 [facility] Comment on above: Result Comment: Test ing performed on [employer] analyzer using enzymatic creatinine methodology. Performed By: #### G FR, CMP, A1C, MG, LIPID, TSH, TROPHS #### [address] [address] Electrolyte Balance 14.0 mEq/L Normal 4.0-15.0 [facility] Comment on above: Performed By: #### G FR, CMP, A1C, MG, LIPID, TSH, TROPHS #### [address] [address] Glucose [Mass/Vol] 99 mg/dL Normal 82-115 [facility] Comment on above: Performed By: #### G FR, CMP, A1C, MG, LIPID, TSH, TROPHS #### [address] [address] Potassium [Moles/Vol] 4.5 mmol/L Normal 3.5-5.0 [facility] Comment on above: Performed By: #### G FR, CMP, A1C, MG, LIPID, TSH, TROPHS #### [place] [id number] Sodium [Moles/Vol] 138 mmol/L Normal 136-145 [facility] Comment on above: Performed By: #### G FR, CMP, A1C, MG, LIPID, TSH, TROPHS #### [place] [id number] Urea nitrogen [Mass/Vol] 60.0 mg/dL High 8.0-22.0 [facility] Comment on above: Performed By: #### G FR, CMP, A1C, MG, LIPID, TSH, TROPHS #### [address] [address] CBCon 05-10-2024 Erythrocyte distribution width (RBC) [Ratio] 17.1 % High 11.5-15.5 [facility] Comment on above: Performed By: #### G FR, CMP, A1C, MG, LIPID, TSH, TROPHS #### [address] [address] Hematocrit (Bld) [Volume fraction] 31.4 % Low 40.0-52.0 [facility] Comment on above: Performed By: #### G FR, CMP, A1C, MG, LIPID, TSH, TROPHS #### [address] [address] Hgb 10.5 G/dL Low 13.0-17.5 [facility] Comment on above: Performed By: #### G FR, CMP, A1C, MG, LIPID, TSH, TROPHS #### [place] [address] MCH (RBC) [Entitic mass] 31.6 pg Normal 27.0-33.0 [facility] Comment on above: Performed By: #### G FR, CMP, A1C, MG, LIPID, TSH, TROPHS #### [place] [address] MCHC 33.4 G/dL Normal 32.0-36.0 [facility] Comment on above: Performed By: #### G FR, CMP, A1C, MG, LIPID, TSH, TROPHS #### [place] [address] MCV (RBC) [Entitic vol] 94.5 fL Normal 81.0-100.0 [facility] Comment on above: Performed By: #### G FR, CMP, A1C, MG, LIPID, TSH, TROPHS #### [place] [address] Platelet 164 10 3/mcL Normal 150-450 [facility] Comment on above: Performed By: #### G FR, CMP, A1C, MG, LIPID, TSH, TROPHS #### [place] [address] Platelet mean volume (Bld) [Entitic vol] 8.3 fL Normal 6.4-10.5 [facility] Comment on above: Performed By: #### G FR, CMP, A1C, MG, LIPID, TSH, TROPHS #### [place] [address] RBC 3.32 10 6/mcL Low 4.50-6.00 [facility] Comment on above: Performed By: #### G FR, CMP, A1C, MG, LIPID, TSH, TROPHS #### [place] [address] WBC 6.6 10 3/mcL Normal 4.5-10.8 [facility] Comment on above: Performed By: #### G FR, CMP, A1C, MG, LIPID, TSH, TROPHS #### [place] [address] LABORATORYOrdered By: SYSTEM SYSTEM on 05-10-2024 aPTT Coag (Bld) [Time] 60.1 s High 25.0 - 35.0 seconds AH [facility] SS Comment on above: Interpretive Data: F or Heparin anticoagulation therapy, the recommended therapeutic range is: 54-77 seconds (APTT Correlation with Anti-Xa therapeutic range of 0.3-0.7 units/ml). PLEASE REFERENCE THE PHARMACY PROTOCOL FOR DOSING. Basophils (Bld) [#/Vol] 0.1 103/mcL Normal 0.0 - 0.3 10^3/mcL AH Workflow SS Basophils/100 WBC (Bld) 0.8 % Normal 0.0 - 2.5 % AH Workflow SS Calcium [Mass/Vol] 9.3 mg/dL Normal 8.7 - 10. 4 mg/dL AH ADM SS Chloride [Moles/Vol] 99 mmol/L Normal 98 - 110 mEq/L AH ADM SS CO2 [Moles/Vol] 25 mmol/L Normal 22 - 32 mEq/L AH ADM SS Electrolyte Balance 14.0 mEq/L Normal 4.0 - 15 .0 mEq/L AH ADM SS Eosinophils (Bld) [#/Vol] 0.4 103/mcL Normal 0.0 - 0.7 10^3/mcL AH Workflow SS Eosinophils/100 WBC (Bld) 5.6 % Normal 0.0 - 6.0 % AH Workflow SS Erythrocyte distribution width (RBC) [Ratio] 17.1 % High 11.5 - 15.5 % AH Workflow SS Glucose [Mass/Vol] 99 mg/dL Normal 82 - 115 mg/dL ADM SS Hematocrit (Bld) [Volume fraction] 31.4 % Low 40.0 - 52.0 % AH Workflow SS Hemoglobin (Bld) [Mass/Vol] 10.5 G/dL Low 13.0 - 17.5 G/dL AH Workflow SS Lymphocytes (Bld) [#/Vol] 1.3 103/mcL Normal 0.9 - 4.3 10^3/mcL AH Workflow SS Lymphocytes/100 WBC (Bld) 19.1 % Low 20.0 - 40.0 % AH Workflow SS Magnesium [Mass/Vol] 2.1 mg/dL Normal 1.6 - 2.4 mg/dL AH ADM SS MCH (RBC) [Entitic mass] 31.6 pg Normal 27.0 - 33.0 pg AH Workflow SS MCHC 33.4 G/dL Normal 32.0 - 36.0 G/dL AH Workflow SS MCV (RBC) [Entitic vol] 94.5 fL Normal 81.0 - 100.0 fL AH Workflow SS Monocytes (Bld) [#/Vol] 0.8 103/mcL Normal 0.1 - 1.4 10^3/mcL AH Workflow SS Monocytes/100 WBC (Bld) 11.6 % Normal 2.0 - 13.0 % AH Workflow SS Neutrophils (Bld) [#/Vol] 4.1 103/mcL Normal 2.3 - 8.1 10^3/mcL AH Workflow SS Neutrophils/100 WBC (Bld) 62.9 % Normal 50.0 - 75.0 % AH Workflow SS Platelet mean volume (Bld) [Entitic vol] 8.3 fL Normal 6.4 - 10.5 fL AH Workflow SS Platelets (Bld) [#/Vol] 164 103/mcL Normal 150 - 450 10^3/mcL AH Workflow SS Potassium [Moles/Vol] 4.5 mmol/L Normal 3.5 - 5.0 mEq/L AH ADM SS RBC (Bld) [#/Vol] 3.32 106/mcL Low 4.50 - 6.0 0 10^6/mcL AH Workflow SS Sodium [Moles/Vol] 138 mmol/L Normal 136 - 145 mEq/L ADM SS Urea nitrogen [Mass/Vol] 60.0 mg/dL High 8.0 - 22.0 mg/dL ADM SS Urea nitrogen/Creatinine [Mass ratio] 8.0 ratio Low 10.0 - 22.0 ratio AH ADM SS WBC (Bld) [#/Vol] 6.6 103/mcL Normal 4.5 - 10.8 10^3/mcL Workflow SS MGon 05-10-2024 Magnesium [Mass/Vol] 2.1 mg/dL Normal 1.6-2.4 [facility] Comment on above: Performed By: #### G FR, CMP, A1C, MG, LIPID, TSH, TROPHS #### [place] [id number] .Auto Diffon 05-09-2024 Basophil, Absolute 0.1 10 3/mcL Normal 0.0-0.3 [facility] Comment on above: Performed By: #### G FR, CMP, A1C, MG, LIPID, TSH, TROPHS #### [address] [address] Basophils/100 WBC (Bld) 0.7 % Normal 0.0-2.5 [facility] Comment on above: Performed By: #### G FR, CMP, A1C, MG, LIPID, TSH, TROPHS #### [address] [address] Eosinophil, Absolute 0.2 10 3/mcL Normal 0.0-0.7 [facility] Comment on above: Performed By: #### G FR, CMP, A1C, MG, LIPID, TSH, TROPHS #### [address] [address] Eosinophils/100 WBC (Bld) 3.0 % Normal 0.0-6.0 [facility] Comment on above: Performed By: #### G FR, CMP, A1C, MG, LIPID, TSH, TROPHS #### [address] [address] Lymphocyte, Absolute 1.2 10 3/mcL Normal 0.9-4.3 [facility] Comment on above: Performed By: #### G FR, CMP, A1C, MG, LIPID, TSH, TROPHS #### [address] [address] Lymphocytes/100 WBC (Bld) 16.9 % Low 20.0-40.0 [facility] Comment on above: Performed By: #### G FR, CMP, A1C, MG, LIPID, TSH, TROPHS #### [address] [address] Monocyte, Absolute 0.8 10 3/mcL Normal 0.1-1.4 [facility] Comment on above: Performed By: #### G FR, CMP, A1C, MG, LIPID, TSH, TROPHS #### [address] [address] Monocytes/100 WBC (Bld) 11.0 % Normal 2.0-13.0 [facility] Comment on above: Performed By: #### G FR, CMP, A1C, MG, LIPID, TSH, TROPHS #### [facility] [address] [place] [address] Neutrophils/100 WBC (Bld) 68.4 % Normal 50.0-75.0 [facility] Comment on above: Performed By: #### G FR, CMP, A1C, MG, LIPID, TSH, TROPHS #### [facility] [address] [place] [address] .GFRon 05-09-2024 GFR Non- 11 ml/min/1.73sqm [facility] MAIN Comment on above: Result Comment: GFR Population mean for , Non- Americans Ages 20-29 = 116 mL/min/1.73 sq.m. Ages 30-39 = 107 mL/min/1.73 sq.m. Ages 40-49 = 99 mL/min/1.73 sq.m. Ages 50-59 = 93 mL/min/1.73 sq.m. Ages 60-69 = 85 mL/min/1.73 sq.m. Ages 70+ = 75 mL/min/1.73 sq.m. Chronic Kidney Disease: Less than 60 mL/min/1.73 square meters End Stage Renal Disease: Less than 15 mL/min/1.73 square meters Performed By: #### G FR, MG, BMP, ANEU, ADIFF, CBC, APTT ####[facility] [place] [address] GFR 13 ml/min/1.73sqm [facility] MAIN Comment on above: Result Comment: GFR Population mean for , Non- Americans Ages 20-29 = 116 mL/min/1.73 sq.m. Ages 30-39 = 107 mL/min/1.73 sq.m. Ages 40-49 = 99 mL/min/1.73 sq.m. Ages 50-59 = 93 mL/min/1.73 sq.m. Ages 60-69 = 85 mL/min/1.73 sq.m. Ages 70+ = 75 mL/min/1.73 sq.m. Chronic Kidney Disease: Less than 60 mL/min/1.73 square meters End Stage Renal Disease: Less than 15 mL/min/1.73 square meters Performed By: #### G FR, MG, BMP, ANEU, ADIFF, CBC, APTT ####[address] [address] .NEUABSon 05-09-2024 Neutrophil, Absolute 4.8 10 3/mcL Normal 2.3-8.1 [facility] Comment on above: Performed By: #### G FR, CMP, A1C, MG, LIPID, TSH, TROPHS #### [place] [address] A1Con 05-09-2024 Glucose [Mass/Vol] 94 mg/dL Normal [facility] Comment on above: Result Comment: Elena mated Average Glucose calculated by equation ((28.7xA1C)-46.7) Estimated average glucose (eAG) is a calculated value from Hemoglobin A1C and is ict sales representative of the average blood glucose level in the last 2-3 month period. Normal range: less than 114 mg/dL Performed By: #### G FR, CMP, A1C, MG, LIPID, TSH, TROPHS #### [place] [address] HbA1c (Bld) [Mass fraction] 4.9 % Normal 4.0-6.0 [facility] Comment on above: Performed By: #### G FR, CMP, A1C, MG, LIPID, TSH, TROPHS #### [place] [address] APTTon 05-09-2024 aPTT Coag (Bld) [Time] 49.3 s High 25.0-35.0 [facility] Comment on above: Result Comment: For Heparin anticoagulation therapy, the recommended therapeutic range is: 54-77 seconds (APTT Correlation with Anti-Xa therapeutic range of 0.3-0.7 units/ml). PLEASE REFERENCE THE PHARMACY PROTOCOL FOR DOSING. Performed By: #### A PTT ####[place] [address] aPTT Coag (Bld) [Time] 47.6 s High 25.0-35.0 [facility] Comment on above: Result Comment: For Heparin anticoagulation therapy, the recommended therapeutic range is: 54-77 seconds (APTT Correlation with Anti-Xa therapeutic range of 0.3-0.7 units/ml). PLEASE REFERENCE THE PHARMACY PROTOCOL FOR DOSING. Performed By: #### G FR, CMP, A1C, MG, LIPID, TSH, TROPHS #### [address] [address] aPTT Coag (Bld) [Time] 52.1 s High 25.0-35.0 [facility] Comment on above: Result Comment: For Heparin anticoagulation therapy, the recommended therapeutic range is: 54-77 seconds (APTT Correlation with Anti-Xa therapeutic range of 0.3-0.7 units/ml). PLEASE REFERENCE THE PHARMACY PROTOCOL FOR DOSING. Performed By: #### G FR, MG, BMP, ANEU, ADIFF, CBC, APTT ####[place] [address] BMPon 05-09-2024 BUN/Creatinine Ratio 7.6 ratio Low 10.0-22.0 [facility] Comment on above: Performed By: #### G FR, MG, BMP, ANEU, ADIFF, CBC, APTT ####[place] [address] Calcium [Mass/Vol] 9.6 mg/dL Normal 8.7-10.4 [facility] Comment on above: Performed By: #### G FR, MG, BMP, ANEU, ADIFF, CBC, APTT ####[address] [address] Chloride [Moles/Vol] 102 mmol/L Normal 98-110 [facility] Comment on above: Performed By: #### G FR, MG, BMP, ANEU, ADIFF, CBC, APTT ####[address] [address] CO2 [Moles/Vol] 31 mmol/L Normal 22-32 [facility] Comment on above: Performed By: #### G FR, MG, BMP, ANEU, ADIFF, CBC, APTT ####[address] [address] Creatinine [Mass/Vol] 5.16 mg/dL High 0.60-1.40 [facility] Comment on above: Result Comment: Test ing performed on [employer] analyzer using enzymatic creatinine methodology. Performed By: #### G FR, MG, BMP, ANEU, ADIFF, CBC, APTT ####[place] [address] Electrolyte Balance 7.0 mEq/L Normal 4.0-15.0 [facility] Comment on above: Performed By: #### G FR, MG, BMP, ANEU, ADIFF, CBC, APTT ####[place] [address] Glucose [Mass/Vol] 97 mg/dL Normal 82-115 [facility] Comment on above: Performed By: #### G FR, MG, BMP, ANEU, ADIFF, CBC, APTT ####[place] [address] Potassium [Moles/Vol] 4.4 mmol/L Normal 3.5-5.0 [facility] Comment on above: Performed By: #### G FR, MG, BMP, ANEU, ADIFF, CBC, APTT ####[place] [address] Sodium [Moles/Vol] 140 mmol/L Normal 136-145 [facility] Comment on above: Performed By: #### G FR, MG, BMP, ANEU, ADIFF, CBC, APTT ####[place] [address] Urea nitrogen [Mass/Vol] 39.0 mg/dL High 8.0-22.0 [facility] Comment on above: Performed By: #### G FR, MG, BMP, ANEU, ADIFF, CBC, APTT ####[place] [address] CBCon 05-09-2024 Erythrocyte distribution width (RBC) [Ratio] 17.3 % High 11.5-15.5 [facility] Comment on above: Performed By: #### G FR, CMP, A1C, MG, LIPID, TSH, TROPHS #### [place] [address] Hematocrit (Bld) [Volume fraction] 32.7 % Low 40.0-52.0 [facility] Comment on above: Performed By: #### G FR, CMP, A1C, MG, LIPID, TSH, TROPHS #### [place] [address] Hgb 10.9 G/dL Low 13.0-17.5 [facility] Comment on above: Performed By: #### G FR, CMP, A1C, MG, LIPID, TSH, TROPHS #### [place] [address] MCH (RBC) [Entitic mass] 31.3 pg Normal 27.0-33.0 [facility] Comment on above: Performed By: #### G FR, CMP, A1C, MG, LIPID, TSH, TROPHS #### [place] [address] MCHC 33.2 G/dL Normal 32.0-36.0 [facility] Comment on above: Performed By: #### G FR, CMP, A1C, MG, LIPID, TSH, TROPHS #### [place] [address] MCV (RBC) [Entitic vol] 94.1 fL Normal 81.0-100.0 [facility] Comment on above: Performed By: #### G FR, CMP, A1C, MG, LIPID, TSH, TROPHS #### [place] [address] Platelet 174 10 3/mcL Normal 150-450 [facility] Comment on above: Performed By: #### G FR, CMP, A1C, MG, LIPID, TSH, TROPHS #### [place] [address] Platelet mean volume (Bld) [Entitic vol] 8.7 fL Normal 6.4-10.5 [facility] Comment on above: Performed By: #### G FR, CMP, A1C, MG, LIPID, TSH, TROPHS #### [place] [address] RBC 3.48 10 6/mcL Low 4.50-6.00 [facility] Comment on above: Performed By: #### G FR, CMP, A1C, MG, LIPID, TSH, TROPHS #### [address] [address] WBC 7.1 10 3/mcL Normal 4.5-10.8 [facility] Comment on above: Performed By: #### G FR, CMP, A1C, MG, LIPID, TSH, TROPHS #### [address] [address] LABORATORYOrdered By: SYSTEM SYSTEM on 05-09-2024 Basophils (Bld) [#/Vol] 0.1 103/mcL Normal 0.0 - 0.3 10^3/mcL Workflow SS Basophils/100 WBC (Bld) 0.7 % Normal 0.0 - 2.5 % AH Workflow SS Eosinophils (Bld) [#/Vol] 0.2 103/mcL Normal 0.0 - 0.7 10^3/mcL Workflow SS Eosinophils/100 WBC (Bld) 3.0 % Normal 0.0 - 6.0 % AH Workflow SS Lymphocytes (Bld) [#/Vol] 1.2 103/mcL Normal 0.9 - 4.3 10^3/mcL AH Workflow SS Lymphocytes/100 WBC (Bld) 16.9 % Low 20.0 - 40.0 % AH Workflow SS Monocytes (Bld) [#/Vol] 0.8 103/mcL Normal 0.1 - 1.4 10^3/mcL AH Workflow SS Monocytes/100 WBC (Bld) 11.0 % Normal 2.0 - 13.0 % AH Workflow SS Neutrophils (Bld) [#/Vol] 4.8 103/mcL Normal 2.3 - 8.1 10^3/mcL Workflow SS Neutrophils/100 WBC (Bld) 68.4 % Normal 50.0 - 75.0 % AH Workflow SS Troponin I.cardiac DL <= 0.01 ng/mL [Mass/Vol] 631 ng/L High 0 - 54 ng/L AH ADM SS Comment on above: Interpretive Data: High Sensitive Troponin I Reference Ranges: Female: 0-34 ng/L Male: 0-54 ng/L Testing performed on [employer] analyzer using direct chemiluminescent technology. Troponin I.cardiac DL <= 0.01 ng/mL [Mass/Vol] 656 ng/L High 0 - 54 ng/L AH ADM SS Comment on above: Interpretive Data: High Sensitive Troponin I Reference Ranges: Female: 0-34 ng/L Male: 0-54 ng/L Testing performed on [employer] IM analyzer using direct chemiluminescent technology. MGon 05-09-2024 Magnesium [Mass/Vol] 2.1 mg/dL Normal 1.6-2.4 [facility] Comment on above: Performed By: #### G FR, MG, BMP, ANEU, ADIFF, CBC, APTT ####[place] [address] TROPHSon 05-09-2024 High Sensitivity Troponin I 631 ng/L High 0-54 [facility] Comment on above: Result Comment: High Sensitive Troponin I Reference Ranges: Female: 0-34 ng/L Male: 0-54 ng/L Testing performed on [employer] IM analyzer using direct chemiluminescent technology. Performed By: #### G FR, CMP, A1C, MG, LIPID, TSH, TROPHS #### [place] [address] High Sensitivity Troponin I 656 ng/L High 0-54 [facility] Comment on above: Result Comment: High Sensitive Troponin I Reference Ranges: Female: 0-34 ng/L Male: 0-54 ng/L Testing performed on [employer] IM analyzer using direct chemiluminescent technology. Performed By: #### G FR, CMP, A1C, MG, LIPID, TSH, TROPHS #### [place] [id number] .Auto Diffon 05-08-2024 Basophil, Absolute 0.0 10 3/mcL Normal 0.0-0.3 [facility] Comment on above: Performed By: #### G FR, CMP, A1C, MG, LIPID, TSH, TROPHS #### [place] [address] Basophils/100 WBC (Bld) 0.4 % Normal 0.0-2.5 [facility] Comment on above: Performed By: #### G FR, CMP, A1C, MG, LIPID, TSH, TROPHS #### [address] [address] Eosinophil, Absolute 0.1 10 3/mcL Normal 0.0-0.7 [facility] Comment on above: Performed By: #### G FR, CMP, A1C, MG, LIPID, TSH, TROPHS #### [address] [address] Eosinophils/100 WBC (Bld) 1.3 % Normal 0.0-6.0 [facility] Comment on above: Performed By: #### G FR, CMP, A1C, MG, LIPID, TSH, TROPHS #### [address] [address] Lymphocyte, Absolute 0.9 10 3/mcL Normal 0.9-4.3 [facility] Comment on above: Performed By: #### G FR, CMP, A1C, MG, LIPID, TSH, TROPHS #### [address] [address] Lymphocytes/100 WBC (Bld) 9.9 % Low 20.0-40.0 [facility] Comment on above: Performed By: #### G FR, CMP, A1C, MG, LIPID, TSH, TROPHS #### [address] [address] Monocyte, Absolute 0.7 10 3/mcL Normal 0.1-1.4 [facility] Comment on above: Performed By: #### G FR, CMP, A1C, MG, LIPID, TSH, TROPHS #### [address] [address] Monocytes/100 WBC (Bld) 7.9 % Normal 2.0-13.0 [facility] Comment on above: Performed By: #### G FR, CMP, A1C, MG, LIPID, TSH, TROPHS #### [address] [address] Neutrophils/100 WBC (Bld) 80.5 % High 50.0-75.0 [facility] Comment on above: Performed By: #### G FR, CMP, A1C, MG, LIPID, TSH, TROPHS #### [address] [address] Basophil, Absolute 0.1 10 3/mcL Normal 0.0-0.2 [facility] Comment on above: Performed By: #### B MP, TROPHS, ANEU, GFR, MDW, CBC, ADIFF #### [address] [address] Basophils/100 WBC (Bld) 0.8 % Normal 0.0-2.5 [facility] Comment on above: Performed By: #### B MP, TROPHS, ANEU, GFR, MDW, CBC, ADIFF #### [address] [address] Eosinophil, Absolute 0.3 10 3/mcL Normal 0.0-0.7 [facility] Comment on above: Performed By: #### B MP, TROPHS, ANEU, GFR, MDW, CBC, ADIFF #### [address] [address] Eosinophils/100 WBC (Bld) 4.0 % Normal 0.0-7.0 [facility] Comment on above: Performed By: #### B MP, TROPHS, ANEU, GFR, MDW, CBC, ADIFF #### [address] [address] Lymphocyte, Absolute 0.8 10 3/mcL Low 0.9-4.3 [facility] Comment on above: Performed By: #### B MP, TROPHS, ANEU, GFR, MDW, CBC, ADIFF #### [address] [address] Lymphocytes/100 WBC (Bld) 9.1 % Low 20.0-40.0 [facility] Comment on above: Performed By: #### B MP, TROPHS, ANEU, GFR, MDW, CBC, ADIFF #### [address] [address] Monocyte, Absolute 0.6 10 3/mcL Normal 0.1-1.4 [facility] Comment on above: Performed By: #### B MP, TROPHS, ANEU, GFR, MDW, CBC, ADIFF #### [address] [address] Monocytes/100 WBC (Bld) 7.2 % Normal 2.0-13.0 [facility] Comment on above: Performed By: #### B MP, TROPHS, ANEU, GFR, MDW, CBC, ADIFF #### [address] [address] Neutrophils/100 WBC (Bld) 78.9 % High 50.0-75.0 [facility] Comment on above: Performed By: #### B MP, TROPHS, ANEU, GFR, MDW, CBC, ADIFF #### [address] [address] .GFRon 05-08-2024 GFR 9 ml/min/1.73sqm [facility] Comment on above: Result Comment: GFR Population mean for , Non- Americans Ages 20-29 = 116 mL/min/1.73 sq.m. Ages 30-39 = 107 mL/min/1.73 sq.m. Ages 40-49 = 99 mL/min/1.73 sq.m. Ages 50-59 = 93 mL/min/1.73 sq.m. Ages 60-69 = 85 mL/min/1.73 sq.m. Ages 70+ = 75 mL/min/1.73 sq.m. Chronic Kidney Disease: Less than 60 mL/min/1.73 square meters End Stage Renal Disease: Less than 15 mL/min/1.73 square meters Performed By: #### G FR, CMP, A1C, MG, LIPID, TSH, TROPHS #### [facility] [address] [place] [address] GFR Non- 7 ml/min/1.73sqm [facility] Comment on above: Result Comment: GFR Population mean for , Non- Americans Ages 20-29 = 116 mL/min/1.73 sq.m. Ages 30-39 = 107 mL/min/1.73 sq.m. Ages 40-49 = 99 mL/min/1.73 sq.m. Ages 50-59 = 93 mL/min/1.73 sq.m. Ages 60-69 = 85 mL/min/1.73 sq.m. Ages 70+ = 75 mL/min/1.73 sq.m. Chronic Kidney Disease: Less than 60 mL/min/1.73 square meters End Stage Renal Disease: Less than 15 mL/min/1.73 square meters Performed By: #### G FR, CMP, A1C, MG, LIPID, TSH, TROPHS #### [place] [id number] [address] [place] [address] GFR 9 ml/min/1.73sqm [facility] Comment on above: Result Comment: GFR Population mean for , Non- Americans Ages 20-29 = 116 mL/min/1.73 sq.m. Ages 30-39 = 107 mL/min/1.73 sq.m. Ages 40-49 = 99 mL/min/1.73 sq.m. Ages 50-59 = 93 mL/min/1.73 sq.m. Ages 60-69 = 85 mL/min/1.73 sq.m. Ages 70+ = 75 mL/min/1.73 sq.m. Chronic Kidney Disease: Less than 60 mL/min/1.73 square meters End Stage Renal Disease: Less than 15 mL/min/1.73 square meters Performed By: #### B ANISHA HURLEY, ANEU, GFR, MDW, CBC, ADIFF #### [place] [id number] [place], [place] [address] GFR Non- 7 ml/min/1.73sqm [facility] Comment on above: Result Comment: GFR Population mean for , Non- Americans Ages 20-29 = 116 mL/min/1.73 sq.m. Ages 30-39 = 107 mL/min/1.73 sq.m. Ages 40-49 = 99 mL/min/1.73 sq.m. Ages 50-59 = 93 mL/min/1.73 sq.m. Ages 60-69 = 85 mL/min/1.73 sq.m. Ages 70+ = 75 mL/min/1.73 sq.m. Chronic Kidney Disease: Less than 60 mL/min/1.73 square meters End Stage Renal Disease: Less than 15 mL/min/1.73 square meters Performed By: #### B ANISHA HURLEY, ANEU, GFR, MDW, CBC, ADIFF #### [address] [address] .MDWon 05-08-2024 Monocyte Distribution Width 17.64 Normal 0.00-20.00 [facility] Comment on above: Result Comment: For ED adult patients suspected of sepsis, MDW<=20.0 does not rule out sepsis or risk of sepsis Performed By: #### B MP, TROPHS, ANEU, GFR, MDW, CBC, ADIFF #### [address] [address] .NEUABSon 05-08-2024 Neutrophil, Absolute 7.1 10 3/mcL Normal 2.3-8.1 [facility] Comment on above: Performed By: #### G FR, CMP, A1C, MG, LIPID, TSH, TROPHS #### [address] [address] Neutrophil, Absolute 6.8 10 3/mcL Normal 2.3-8.1 [facility] Comment on above: Performed By: #### B MP, TROPHS, ANEU, GFR, MDW, CBC, ADIFF #### [address] [address] APTTon 05-08-2024 aPTT Coag (Bld) [Time] 56.4 s High 25.0-35.0 [facility] Comment on above: Result Comment: For Heparin anticoagulation therapy, the recommended therapeutic range is: 54-77 seconds (APTT Correlation with Anti-Xa therapeutic range of 0.3-0.7 units/ml). PLEASE REFERENCE THE PHARMACY PROTOCOL FOR DOSING. Performed By: #### G FR, CMP, A1C, MG, LIPID, TSH, TROPHS #### [address] [address] aPTT Coag (Bld) [Time] 64.4 s High 25.0-35.0 [facility] Comment on above: Result Comment: For Heparin anticoagulation therapy, the recommended therapeutic range is: 54-77 seconds (APTT Correlation with Anti-Xa therapeutic range of 0.3-0.7 units/ml). PLEASE REFERENCE THE PHARMACY PROTOCOL FOR DOSING. Performed By: #### G FR, CMP, A1C, MG, LIPID, TSH, TROPHS #### [address] [address] aPTT Coag (Bld) [Time] 26.7 s Normal 25.0-35.0 [facility] Comment on above: Result Comment: For Heparin anticoagulation therapy, the recommended therapeutic range is: 54-77 seconds (APTT Correlation with Anti-Xa therapeutic range of 0.3-0.7 units/ml). PLEASE REFERENCE THE PHARMACY PROTOCOL FOR DOSING. Performed By: #### G FR, CMP, A1C, MG, LIPID, TSH, TROPHS #### [address] [address] BMPon 05-08-2024 BUN/Creatinine Ratio 8 ratio Normal 03-07 [facility] Comment on above: Performed By: #### B MP, TROPHS, ANEU, GFR, MDW, CBC, ADIFF #### [address] [address] Calcium [Mass/Vol] 9.2 mg/dL Normal 8.4-10.2 [facility] Comment on above: Performed By: #### B MP, TROPHS, ANEU, GFR, MDW, CBC, ADIFF #### [address] [address] Chloride [Moles/Vol] 100 mmol/L Normal 98-107 [facility] Comment on above: Performed By: #### B MP, TROPHS, ANEU, GFR, MDW, CBC, ADIFF #### [address] [address] CO2 [Moles/Vol] 32 mmol/L High 23-31 [facility] Comment on above: Performed By: #### B MP, TROPHS, ANEU, GFR, MDW, CBC, ADIFF #### [address] [address] Creatinine [Mass/Vol] 7.31 mg/dL High 0.70-1.30 [facility] Comment on above: Result Comment: Test ing performed on Siemens Dimension EXL analyzer using a modified kinetic Gumaro technique. Performed By: #### B MP, TROPHS, ANEU, GFR, MDW, CBC, ADIFF #### [address] [address] Electrolyte Balance 6.0 mEq/L Normal 4.0-15.0 [facility] Comment on above: Performed By: #### B MP, TROPHS, ANEU, GFR, MDW, CBC, ADIFF #### [address] [address] Glucose [Mass/Vol] 111 mg/dL High 83-110 [facility] Comment on above: Performed By: #### B MP, TROPHS, ANEU, GFR, MDW, CBC, ADIFF #### [address] [address] Potassium [Moles/Vol] 4.5 mmol/L Normal 3.5-5.1 [facility] Comment on above: Performed By: #### B MP, TROPHS, ANEU, GFR, MDW, CBC, ADIFF #### [address] [address] Sodium [Moles/Vol] 138 mmol/L Normal 136-145 [facility] Comment on above: Performed By: #### B MP, TROPHS, ANEU, GFR, MDW, CBC, ADIFF #### [address] [address] Urea nitrogen [Mass/Vol] 62 mg/dL High 7-18 [facility] Comment on above: Performed By: #### B MP, TROPHS, ANEU, GFR, MDW, CBC, ADIFF #### [address] [address] CBCon 05-08-2024 Erythrocyte distribution width (RBC) [Ratio] 17.0 % High 11.5-15.5 [facility] Comment on above: Performed By: #### G FR, CMP, A1C, MG, LIPID, TSH, TROPHS #### [facility] [address] [place] [address] Hematocrit (Bld) [Volume fraction] 32.1 % Low 40.0-52.0 [facility] Comment on above: Performed By: #### G FR, CMP, A1C, MG, LIPID, TSH, TROPHS #### [place] [address] Hgb 10.5 G/dL Low 13.0-17.5 [facility] Comment on above: Performed By: #### G FR, CMP, A1C, MG, LIPID, TSH, TROPHS #### [place] [address] MCH (RBC) [Entitic mass] 31.2 pg Normal 27.0-33.0 [facility] Comment on above: Performed By: #### G FR, CMP, A1C, MG, LIPID, TSH, TROPHS #### [place] [address] MCHC 32.9 G/dL Normal 32.0-36.0 [facility] Comment on above: Performed By: #### G FR, CMP, A1C, MG, LIPID, TSH, TROPHS #### [place] [address] MCV (RBC) [Entitic vol] 94.9 fL Normal 81.0-100.0 [facility] Comment on above: Performed By: #### G FR, CMP, A1C, MG, LIPID, TSH, TROPHS #### [place] [address] Platelet 164 10 3/mcL Normal 150-450 [facility] Comment on above: Performed By: #### G FR, CMP, A1C, MG, LIPID, TSH, TROPHS #### [place] [address] Platelet mean volume (Bld) [Entitic vol] 8.6 fL Normal 6.4-10.5 [facility] Comment on above: Performed By: #### G FR, CMP, A1C, MG, LIPID, TSH, TROPHS #### [place] [address] RBC 3.38 10 6/mcL Low 4.50-6.00 [facility] Comment on above: Performed By: #### G FR, CMP, A1C, MG, LIPID, TSH, TROPHS #### [address] [address] WBC 8.9 10 3/mcL Normal 4.5-10.8 [facility] Comment on above: Performed By: #### G FR, CMP, A1C, MG, LIPID, TSH, TROPHS #### [address] [address] Erythrocyte distribution width (RBC) [Ratio] 17.1 % High 11.5-15.5 [facility] Comment on above: Performed By: #### B MP, TROPHS, ANEU, GFR, MDW, CBC, ADIFF #### [address] [address] Hematocrit (Bld) [Volume fraction] 31.2 % Low 40.0-52.0 [facility] Comment on above: Performed By: #### B MP, TROPHS, ANEU, GFR, MDW, CBC, ADIFF #### [address] [address] Hgb 10.3 G/dL Low 13.0-17.5 [facility] Comment on above: Performed By: #### B MP, TROPHS, ANEU, GFR, MDW, CBC, ADIFF #### [address] [address] MCH (RBC) [Entitic mass] 31.1 pg Normal 27.0-33.0 [facility] Comment on above: Performed By: #### B MP, TROPHS, ANEU, GFR, MDW, CBC, ADIFF #### [address] [address] MCHC 33.1 G/dL Normal 32.0-36.0 [facility] Comment on above: Performed By: #### B MP, TROPHS, ANEU, GFR, MDW, CBC, ADIFF #### [address] [address] MCV (RBC) [Entitic vol] 94.0 fL Normal 81.0-100.0 [facility] Comment on above: Performed By: #### B MP, TROPHS, ANEU, GFR, MDW, CBC, ADIFF #### [address] [address] Platelet 168 10 3/mcL Normal 150-450 [facility] Comment on above: Performed By: #### B MP, TROPHS, ANEU, GFR, MDW, CBC, ADIFF #### [address] [address] Platelet mean volume (Bld) [Entitic vol] 8.3 fL Normal 6.4-10.5 [facility] Comment on above: Performed By: #### B MP, TROPHS, ANEU, GFR, MDW, CBC, ADIFF #### [address] [address] RBC 3.31 10 6/mcL Low 4.50-6.00 [facility] Comment on above: Performed By: #### B MP, TROPHS, ANEU, GFR, MDW, CBC, ADIFF #### [address] [address] WBC 8.6 10 3/mcL Normal 4.5-10.8 [facility] Comment on above: Performed By: #### B MP, TROPHS, ANEU, GFR, MDW, CBC, ADIFF #### [address] [address] CMPon 05-08-2024 Albumin Level 3.2 G/dL Normal 3.2-4.8 [facility] Comment on above: Performed By: #### G FR, CMP, A1C, MG, LIPID, TSH, TROPHS #### [address] [address] Albumin/Globulin [Mass ratio] 1.1 {ratio} Normal 0.9-1.6 [facility] Comment on above: Performed By: #### G FR, CMP, A1C, MG, LIPID, TSH, TROPHS #### [address] [address] ALP [Catalytic activity/Vol] 103 U/L Normal 38-126 [facility] Comment on above: Performed By: #### G FR, CMP, A1C, MG, LIPID, TSH, TROPHS #### [address] [address] ALT/SGPT <8 Low 12-55 [facility] Comment on above: Performed By: #### G FR, CMP, A1C, MG, LIPID, TSH, TROPHS #### [address] [address] AST [Catalytic activity/Vol] 17 U/L Normal 8-34 [facility] Comment on above: Performed By: #### G FR, CMP, A1C, MG, LIPID, TSH, TROPHS #### [address] [address] Bili Total 0.40 mg/dL Normal 0.20-1.20 [facility] Comment on above: Result Comment: Use of this assay is not recommended for patients undergoing treatment with eltrombopag due to the potential for falsely elevated results. Performed By: #### G FR, CMP, A1C, MG, LIPID, TSH, TROPHS #### [address] [address] BUN/Creatinine Ratio 8.6 ratio Low 10.0-22.0 [facility] Comment on above: Performed By: #### G FR, CMP, A1C, MG, LIPID, TSH, TROPHS #### [address] [address] Calcium [Mass/Vol] 9.9 mg/dL Normal 8.7-10.4 [facility] Comment on above: Performed By: #### G FR, CMP, A1C, MG, LIPID, TSH, TROPHS #### [address] [address] Chloride [Moles/Vol] 102 mmol/L Normal 98-110 [facility] Comment on above: Performed By: #### G FR, CMP, A1C, MG, LIPID, TSH, TROPHS #### [address] [address] CO2 [Moles/Vol] 30 mmol/L Normal 22-32 [facility] Comment on above: Performed By: #### G FR, CMP, A1C, MG, LIPID, TSH, TROPHS #### [address] [address] Creatinine [Mass/Vol] 7.45 mg/dL High 0.60-1.40 [facility] Comment on above: Result Comment: Test ing performed on [employer] analyzer using enzymatic creatinine methodology. Performed By: #### G FR, CMP, A1C, MG, LIPID, TSH, TROPHS #### [address] [address] Electrolyte Balance 10.0 mEq/L Normal 4.0-15.0 [facility] Comment on above: Performed By: #### G FR, CMP, A1C, MG, LIPID, TSH, TROPHS #### [address] [address] Globulin 3.0 G/dL Normal 1.5-3.8 [facility] Comment on above: Performed By: #### G FR, CMP, A1C, MG, LIPID, TSH, TROPHS #### [address] [address] Glucose [Mass/Vol] 97 mg/dL Normal 82-115 [facility] Comment on above: Performed By: #### G FR, CMP, A1C, MG, LIPID, TSH, TROPHS #### [address] [address] Potassium [Moles/Vol] 5.0 mmol/L Normal 3.5-5.0 [facility] Comment on above: Performed By: #### G FR, CMP, A1C, MG, LIPID, TSH, TROPHS #### [address] [address] Sodium [Moles/Vol] 142 mmol/L Normal 136-145 [facility] Comment on above: Performed By: #### G FR, CMP, A1C, MG, LIPID, TSH, TROPHS #### [address] [address] Total Protein 6.2 G/dL Normal 5.7-8.2 [facility] Comment on above: Result Comment: No te - New Reference Range in effect 20 Performed By: #### G FR, CMP, A1C, MG, LIPID, TSH, TROPHS #### [facility] [address] [place] [address] Urea nitrogen [Mass/Vol] 64.0 mg/dL High 8.0-22.0 [facility] Comment on above: Performed By: #### G FR, CMP, A1C, MG, LIPID, TSH, TROPHS #### [facility] [address] [place] [address] [address] ABDOMEN/PELVIS W/O CONTRA STon 05-08-2024 CT ABDOMEN/PELVIS W/O CONTRAST ORIGINAL EXAMINATION: CT OF THE ABDOMEN AND PELVIS WITHOUT CONTRAST 05/08/2024 8:05 pm TECHNIQUE: CT of the abdomen and pelvis was performed without the administration of intravenous contrast. Multiplanar reformatted images are provided for review. Automated exposure control, iterative reconstruction, and/or weight based adjustment of the mA/kV was utilized to reduce the radiation dose to as low as reasonably achievable. COMPARISON: Renal ultrasound December 01, 2021 HISTORY: ORDERING SYSTEM PROVIDED HISTORY: Reason for Exam: PAIN MID ABD FEW DAYS W CLOTTY HEMATURIA, NO PREV BLADDER OR PROSTATE HX PER PT gross hematuria, history of kidney stones FINDINGS: Lower Chest: Calcified granuloma in the left lower lobe. Severe aortic valve calcifications. Mitral valve calcifications. Coronary artery calcifications. Small pericardial fluid. Organs: A few small cysts and calcifications in the liver, some which are too small to characterize. Parenchymal volume loss of the kidneys. Bilateral renal cysts, some of which are too small to characterize, some of which are hyperdense, and some of which are indeterminate density; correlate with prior imaging for stability and consider nonemergent MRI. A few nonobstructing nephrolithiasis bilaterally. No hydronephrosis or hydroureter. Subcentimeter hypodensity in the spleen too small to characterize. GI/Bowel: Colonic and small bowel diverticulosis without evidence of diverticulitis. Pelvis: Enlarged prostate with mild surrounding haziness. Bladder unremarkable. Peritoneum/Retroperitoneum: Nonaneurysmal abdominal aorta with atherosclerotic plaque and calcifications throughout its course and major branches. No enlarged lymph nodes. Bones/Soft Tissues: Left lower anterior abdominal wall postsurgical changes. Degenerative changes of the spine. Chronic pars defects of L5. IMPRESSION: Enlarged prostate with mild surrounding haziness, suggestive of prostatitis. Correlate with urinalysis. Bilateral renal cysts, some of which are too small to characterize, some of which are hyperdense, and some of which are indeterminate density; correlate with prior imaging for stability and consider nonemergent MRI. A few nonobstructing nephrolithiasis bilaterally. No hydronephrosis or hydroureter. Interpreted by: Bud Prakash Preliminary Report By: Bud Prakash Electronically signed By Bud Prakash Dictated Date: 05/08/2024 8:46:38 PM Prelim Date: 05/08/2024 8:56:48 PM Sign Date: 05/08/2024 8:56:48 PM Ordering Provider: [facility] MAIN LABORATORYOrdered By: Nora Bruce on 05-08-2024 Appearance (U) Clear (05/08/24 9:54 PM) Normal Clear AH Auto Urine SS Bacteria LM.HPF (Urine sed) [#/Area] Negative (05/08/24 9:54 PM) Normal Negative AH Auto Urine SS Bilirubin Ql (U) Negative (05/08/24 9:54 PM) Normal Neg-Trace AH Auto Urine SS Color (U) Red *ABN* (05/08/24 9:54 PM) Invalid Interpretation Code AH Auto Urine SS Glucose Test strip (U) [Mass/Vol] 250 mg/dL Invalid Interpretation Code Negative AH Auto Urine SS Hemoglobin Auto test strip (U) [Mass/Vol] Large *ABN* (05/08/24 9:54 PM) Invalid Interpretation Code Neg-Trace AH Auto Urine SS Ketones Ql (U) Negative Normal Neg-Trace AH Auto Urine SS RBC.non-dysmorphic LM Ql (Urine sed) 10-20 /HPF Invalid Interpretation Code AH Auto Urine SS UA Leuk Est Trace *NA* (05/08/24 9:54 PM) Invalid Interpretation Code Negative AH Auto Urine SS UA Mucous Trace /HPF Normal AH Auto Urine SS UA Nitrite Negative (05/08/24 9:54 PM) Normal Negative AH Auto Urine SS UA pH >=8.5 *ABN* (05/08/24 9:54 PM) Invalid Interpretation Code 5.0 - 8.0 AH Auto Urine SS UA Protein 100 mg/dL Invalid Interpretation Code Negative AH Auto Urine SS UA RBC 50-100 /HPF Invalid Interpretation Code 0-2 AH Auto Urine SS UA Spec Grav 1.010 (05/08/24 9:54 PM) Normal 1.006-1.029 Auto Urine SS UA Specimen Type Not Given (05/08/24 9:54 PM) Normal AH Auto Urine SS UA Squam Epithelial Rare /HPF Normal 0-20 AH Au to Urine SS UA Urobilinogen 0.2 E.U./dL Normal 0.2-1.0 AH Auto Urine SS WBC LM.HPF (Urine sed) [#/Area] 0-2 /HPF Normal 0-5 Auto Urine SS LABORATORYOrdered By: SYSTEM SYSTEM on 05-08-2024 Troponin I.cardiac DL <= 0.01 ng/mL [Mass/Vol] 660 ng/L High 0 - 54 ng/L AH ADM SS Comment on above: Interpretive Data: High Sensitive Troponin I Reference Ranges: Female: 0-34 ng/L Male: 0-54 ng/L Testing performed on [employer] analyzer using direct chemiluminescent technology. Albumin BCP dye [Mass/Vol] 3.2 G/dL Normal 3.2 - 4.8 G/dL ADM SS Albumin/Globulin [Mass ratio] 1.1 {ratio} Normal 0.9 - 1.6 ratio ADM SS ALP [Catalytic activity/Vol] 103 U/L Normal 38 - 126 U/L ADM SS ALT No additional P-5'-P [Catalytic activity/Vol] U/L 1 Low 12 - 55 U/L AH ADM SS AST [Catalytic activity/Vol] 17 U/L Normal 8 - 34 U/L ADM SS Bilirubin [Mass/Vol] 0.40 mg/dL Normal 0.20 - 1.20 mg/dL ADM SS Comment on above: Interpretive Data: U se of this assay is not recommended for patients undergoing treatment with eltrombopag due to the potential for falsely elevated results. Globulin 3.0 G/dL Normal 1.5 - 3.8 G/dL ADM SS Glucose [Mass/Vol] 94 mg/dL Invalid Interpretation Code Auto Chem SS Comment on above: Interpretive Data: E stimated average glucose (eAG) is a calculated value from Hemoglobin A1C and is ict sales representative of the average blood glucose level in the last 2-3 month period. Normal range: less than 114 mg/dL HbA1c (Bld) [Mass fraction] 4.9 % Normal 4.0 - 6.0 % Auto Chem SS Protein [Mass/Vol] 6.2 G/dL Normal 5.7 - 8.2 G/dL AH ADM SS Comment on above: Interpretive Data: * *Note - New Reference Range in effect 20 PT Coag (PPP) [Time] 11.4 s Normal 9.0 - 14.4 seconds [facility] SS Comment on above: Interpretive Data: E ffective 02/24/08, Protime results may be affected by some antibiotics (i.e. Ciprofloxacin, Azithromycin, Bactrim) which may potentiate the action of oral anticoagulants, with further increases in Protime/INR. PT International Ratio 1.0 ratio Invalid Interpretation Code HemoHub SS Comment on above: Interpretive Data: Susanna padilla [employer] (CHEST, 1992, 102:312S-25S) recommended therapeutic range for oral anticoagulant therapy is: LOW RISK: Prophylaxis of venous thrombosis INR: 2.0-3.0 Treatment of pulmonary embolism 2.0-3.0 Prevention of systemic embolism 2.0-3.0 HIGH RISK: Mechanical prosthetic valves 2.5-3.5 TSH Qn 1.260 mIU/mL Normal 0.550 - 4.780 mIU/mL ADM SS Comment on above: Interpretive Data: * *Note - New Reference Range in effect 20 Troponin I.cardiac DL <= 0.01 ng/mL [Mass/Vol] 84 ng/L High 0 - 76 ng/L AO ADM SS Comment on above: Interpretive Data: H igh Sensitive Troponin I Reference Ranges: Female: 0-51 ng/L Male: 0-76 ng/L Testing performed on [employer] using a homogeneous sandwich chemiluminescent immunoassay based on My[employer]ers technology. Basophils (Bld) [#/Vol] 0.1 103/mcL Normal 0.0 - 0.2 10^3/mcL AO Workflow SS Basophils/100 WBC (Bld) 0.8 % Normal 0.0 - 2.5 % AO Workflow SS Calcium [Mass/Vol] 9.2 mg/dL Normal 8.4 - 10. 2 mg/dL AO ADM SS Chloride [Moles/Vol] 100 mmol/L Normal 98 - 107 mmol/L AO ADM SS CO2 [Moles/Vol] 32 mmol/L High 23 - 31 mmol/L AO ADM SS Creatinine [Mass/Vol] 7.31 mg/dL High 0.70 - 1.30 mg/dL AO ADM SS Comment on above: Interpretive Data: T esting performed on Siemens Dimension EXL analyzer using a modified kinetic Gumaro technique. Electrolyte Balance 6.0 mEq/L Normal 4.0 - 15 .0 mEq/L AO ADM SS Eosinophil, Absolute 0.3 103/mcL Normal 0.0 - 0.7 10^3/mcL AO Workflow SS Eosinophils/100 WBC (Bld) 4.0 % Normal 0.0 - 7.0 % AO Workflow SS Erythrocyte distribution width (RBC) [Ratio] 17.1 % High 11.5 - 15.5 % AO Workflow SS GFR/1.73 sq M.predicted among blacks MDRD (S/P/Bld) [Vol rate/Area] 9 ml/min/1.73sqm Invalid Interpretation Code AO Chemistry S Comment on above: Interpretive Data: GFR Population mean for , Non- Americans Ages 20-29 = 116 mL/min/1.73 sq.m. Ages 30-39 = 107 mL/min/1.73 sq.m. Ages 40-49 = 99 mL/min/1.73 sq.m. Ages 50-59 = 93 mL/min/1.73 sq.m. Ages 60-69 = 85 mL/min/1.73 sq.m. Ages 70+ = 75 mL/min/1.73 sq.m. Chronic Kidney Disease: Less than 60 mL/min/1.73 square meters End Stage Renal Disease: Less than 15 mL/min/1.73 square meters GFR/1.73 sq M.predicted among non-blacks MDRD (S/P/Bld) [Vol rate/Area] 7 ml/min/1.73sqm Invalid Interpretation Code AO Chemistry S Comment on above: Interpretive Data: GFR Population mean for , Non- Americans Ages 20-29 = 116 mL/min/1.73 sq.m. Ages 30-39 = 107 mL/min/1.73 sq.m. Ages 40-49 = 99 mL/min/1.73 sq.m. Ages 50-59 = 93 mL/min/1.73 sq.m. Ages 60-69 = 85 mL/min/1.73 sq.m. Ages 70+ = 75 mL/min/1.73 sq.m. Chronic Kidney Disease: Less than 60 mL/min/1.73 square meters End Stage Renal Disease: Less than 15 mL/min/1.73 square meters Glucose [Mass/Vol] 111 mg/dL High 83 - 110 mg/dL AO ADM SS Hematocrit (Bld) [Volume fraction] 31.2 % Low 40.0 - 52.0 % AO Workflow SS Hemoglobin (Bld) [Mass/Vol] 10.3 G/dL Low 13.0 - 17.5 G/dL AO Workflow SS Lymphocytes (Bld) [#/Vol] 0.8 103/mcL Low 0.9 - 4.3 10^3/mcL AO Workflow SS Lymphocytes/100 WBC (Bld) 9.1 % Low 20.0 - 40.0 % AO Workflow SS MCH (RBC) [Entitic mass] 31.1 pg Normal 27.0 - 33.0 pg AO Workflow SS MCHC 33.1 G/dL Normal 32.0 - 36.0 G/dL AO Workflow SS MCV (RBC) [Entitic vol] 94.0 fL Normal 81.0 - 100.0 fL AO Workflow SS Monocyte distribution width Auto (Bld) [Entitic vol] 17.64 1 Normal 0.00 - 20.00 AO Workflow SS Comment on above: Result Comment: For ED adult patients suspected of sepsis, MDW<=20.0 does not rule out sepsis or risk of sepsis Monocytes (Bld) [#/Vol] 0.6 103/mcL Normal 0.1 - 1.4 10^3/mcL AO Workflow SS Monocytes/100 WBC (Bld) 7.2 % Normal 2.0 - 13.0 % AO Workflow SS Neutrophils (Bld) [#/Vol] 6.8 103/mcL Normal 2.3 - 8.1 10^3/mcL AO Workflow SS Neutrophils/100 WBC (Bld) 78.9 % High 50.0 - 75.0 % AO Workflow SS Platelet mean volume (Bld) [Entitic vol] 8.3 fL Normal 6.4 - 10.5 fL AO Workflow SS Platelets (Bld) [#/Vol] 168 103/mcL Normal 150 - 450 10^3/mcL AO Workflow SS Potassium [Moles/Vol] 4.5 mmol/L Normal 3.5 - 5.1 mmol/L AO ADM SS RBC (Bld) [#/Vol] 3.31 106/mcL Low 4.50 - 6.0 0 10^6/mcL AO Workflow SS Sodium [Moles/Vol] 138 mmol/L Normal 136 - 145 mmol/L AO ADM SS Troponin I.cardiac DL <= 0.01 ng/mL [Mass/Vol] 54 ng/L Normal 0 - 76 ng/L AO ADM SS Comment on above: Interpretive Data: H igh Sensitive Troponin I Reference Ranges: Female: 0-51 ng/L Male: 0-76 ng/L Testing performed on [employer] using a homogeneous sandwich chemiluminescent immunoassay based on MyRefers technology. Urea nitrogen [Mass/Vol] 62 mg/dL High 7 - 18 mg/dL AO ADM SS Urea nitrogen/Creatinine [Mass ratio] 8 ratio Normal 7 - 27 ratio AO ADM SS WBC (Bld) [#/Vol] 8.6 103/mcL Normal 4.5 - 10.8 10^3/mcL AO Workflow SS LABORATORYOrdered By: Barbie Pa on 05-08-2024 Cholesterol [Mass/Vol] 148 mg/dL Normal 50 - 199 mg/dL AH ADM SS Comment on above: Interpretive Data: C holesterol Reference Interval: Less than 200 Desirable 200-239 Borderline high risk 240 and above High risk Cholesterol in HDL [Mass/Vol] 50 mg/dL Normal 40 - 59 mg/dL ADM SS Cholesterol in LDL [Mass/Vol] 84 mg/dL Normal 0 - 129 mg/dL ADM SS Triglyceride [Mass/Vol] 72 mg/dL Normal 3 - 149 mg/dL ADM SS LIPIDon 05-08-2024 Cholesterol [Mass/Vol] 148 mg/dL Normal 50-199 [facility] Comment on above: Result Comment: Chol esterol Reference Interval: Less than 200 Desirable 200-239 Borderline high risk 240 and above High risk Performed By: #### G FR, CMP, A1C, MG, LIPID, TSH, TROPHS #### [address] [address] Cholesterol in HDL [Mass/Vol] 50 mg/dL Normal 40-59 [facility] Comment on above: Performed By: #### G FR, CMP, A1C, MG, LIPID, TSH, TROPHS #### [address] [address] Cholesterol in LDL [Mass/Vol] 84 mg/dL Normal 0-129 [facility] Comment on above: Performed By: #### G FR, CMP, A1C, MG, LIPID, TSH, TROPHS #### [facility] [address] [place] [address] Triglyceride [Mass/Vol] 72 mg/dL Normal 3-149 [facility] Comment on above: Performed By: #### G FR, CMP, A1C, MG, LIPID, TSH, TROPHS #### [facility] [address] [place] [address] MGon 05-08-2024 Magnesium [Mass/Vol] 2.1 mg/dL Normal 1.6-2.4 [facility] Comment on above: Performed By: #### G FR, CMP, A1C, MG, LIPID, TSH, TROPHS #### [address] [address] No Panel Informationon 05-08 Culture Urine No growth at 48 hours. [facility] Work Phone: PROon 05-08-2024 INR Coag (PPP) [Relative time] 1.0 {INR} Normal [facility] Comment on above: Result Comment: [employer] (CHEST, 1992, 102:312S-25S) recommended therapeutic range for oral anticoagulant therapy is: LOW RISK: Prophylaxis of venous thrombosis INR: 2.0-3.0 Treatment of pulmonary embolism 2.0-3.0 Prevention of systemic embolism 2.0-3.0 HIGH RISK: Mechanical prosthetic valves 2.5-3.5 Performed By: #### G FR, CMP, A1C, MG, LIPID, TSH, TROPHS #### [facility] [address] [place] [address] PT Coag (PPP) [Time] 11.4 s Normal 9.0-14.4 [facility] Comment on above: Result Comment: Effe ctive 02/24/08, Protime results may be affected by some antibiotics (i.e. Ciprofloxacin, Azithromycin, Bactrim) which may potentiate the action of oral anticoagulants, with further increases in Protime/INR. Performed By: #### G FR, CMP, A1C, MG, LIPID, TSH, TROPHS #### [id number] [place], [place] [address]Son 05-08-2024 High Sensitivity Troponin I 660 ng/L High 0-54 [facility] Comment on above: Result Comment: High Sensitive Troponin I Reference Ranges: Female: 0-34 ng/L Male: 0-54 ng/L Testing performed on [employer]ell[employer] IM analyzer using direct chemiluminescent technology. Performed By: #### T [facility] ####[place] [address] High Sensitivity Troponin I 306 ng/L High 0-54 [facility] Comment on above: Result Comment: High Sensitive Troponin I Reference Ranges: Female: 0-34 ng/L Male: 0-54 ng/L Testing performed on [employer]ellica IM analyzer using direct chemiluminescent technology. Performed By: #### G FR, CMP, A1C, MG, LIPID, TSH, TROPHS #### [place] [address] High Sensitivity Troponin I 196 ng/L High 0-[address] [place] [address] MAIN Comment on above: Result Comment: High Sensitive Troponin I Reference Ranges: Female: 0-34 ng/L Male: 0-54 ng/L Testing performed on Atellica IM analyzer using direct chemiluminescent technology. Performed By: #### G FR, CMP, A1C, MG, LIPID, TSH, TROPHS #### [place] [address] High Sensitivity Troponin I 84 ng/L High 0-76 [facility] Comment on above: Result Comment: High Sensitive Troponin I Reference Ranges: Female: 0-51 ng/L Male: 0-76 ng/L Testing performed on Dimension EXL using a homogeneous sandwich chemiluminescent immunoassay based on MyRefers technology. Performed By: #### B MP, TROPHS, ANEU, GFR, MDW, CBC, ADIFF #### [facility] [address] [place], [place] [address] High Sensitivity Troponin I 54 ng/L Normal 0-76 [facility] Comment on above: Result Comment: High Sensitive Troponin I Reference Ranges: Female: 0-51 ng/L Male: 0-76 ng/L Testing performed on Dimension EXL using a homogeneous sandwich chemiluminescent immunoassay based on LOCI technology. Performed By: #### B MP, TROPHS, ANEU, GFR, MDW, CBC, ADIFF #### [facility] [address] [place], [place] [address] TSHon 05-08-2024 TSH 1.260 mIU/mL Normal 0.550-4.780 [facility] Comment on above: Result Comment: No te - New Reference Range in effect 20 Performed By: #### G FR, CMP, A1C, MG, LIPID, TSH, TROPHS #### [place] [address] UAon 05-08-2024 Color (U) Red Abnormal [facility] Comment on above: Performed By: #### G FR, CMP, A1C, MG, LIPID, TSH, TROPHS #### [place] [address] Glucose (U) [Mass/Vol] 250 mg/dL Abnormal Negative [facility] Comment on above: Performed By: #### G FR, CMP, A1C, MG, LIPID, TSH, TROPHS #### [place] [address] Ketones Ql (U) Negative Normal Neg-Trace [facility] Comment on above: Performed By: #### G FR, CMP, A1C, MG, LIPID, TSH, TROPHS #### [place] [address] UA Appear Clear Normal Clear [facility] Comment on above: Performed By: #### G FR, CMP, A1C, MG, LIPID, TSH, TROPHS #### [place] [address] UA Blood Large Abnormal Neg-Trace [facility] Comment on above: Performed By: #### G FR, CMP, A1C, MG, LIPID, TSH, TROPHS #### [place] [address] UA Leuk Est Trace Normal Negative [facility] Comment on above: Performed By: #### G FR, CMP, A1C, MG, LIPID, TSH, TROPHS #### [place] [address] UA Nitrite Negative Normal Negative [facility] Comment on above: Performed By: #### G FR, CMP, A1C, MG, LIPID, TSH, TROPHS #### [address] [address] UA pH >=8.5 Abnormal 5.0 - 8.0 [facility] Comment on above: Performed By: #### G FR, CMP, A1C, MG, LIPID, TSH, TROPHS #### [address] [address] UA Protein 100 mg/dL Abnormal Negative [facility] Comment on above: Performed By: #### G FR, CMP, A1C, MG, LIPID, TSH, TROPHS #### [address] [address] UA Spec Grav 1.010 Normal 1.006-1.029 [facility] Comment on above: Performed By: #### G FR, CMP, A1C, MG, LIPID, TSH, TROPHS #### [address] [address] UA Specimen Type Not Given Normal [facility] Comment on above: Performed By: #### G FR, CMP, A1C, MG, LIPID, TSH, TROPHS #### [address] [address] UA Urobilinogen 0.2 E.U./dL Normal 0.2-1.0 [facility] Comment on above: Performed By: #### G FR, CMP, A1C, MG, LIPID, TSH, TROPHS #### [address] [address] Urobilinogen (U) [Mass/Vol] Negative Normal Neg-Trace [facility] Comment on above: Performed By: #### G FR, CMP, A1C, MG, LIPID, TSH, TROPHS #### [address] [address] UAMICon 05-08-2024 UA Bacteria Negative Normal Negative [facility] Comment on above: Performed By: #### G FR, CMP, A1C, MG, LIPID, TSH, TROPHS #### [address] [address] UA Crenated RBCs 10-20 Abnormal [facility] Comment on above: Performed By: #### G FR, CMP, A1C, MG, LIPID, TSH, TROPHS #### [facility] [address] [place] [address] UA Mucous Trace Normal [facility] Comment on above: Performed By: #### G FR, CMP, A1C, MG, LIPID, TSH, TROPHS #### [facility] [address] [place] [address] UA RBC 50-100 Abnormal 0-2 [facility] Comment on above: Performed By: #### G FR, CMP, A1C, MG, LIPID, TSH, TROPHS #### [facility] [address] [place] [address] UA Squam Epithelial Rare Normal 0-20 [facility] Comment on above: Performed By: #### G FR, CMP, A1C, MG, LIPID, TSH, TROPHS #### [facility] [address] [place] [address] UA WBC 0-2 Normal 0-5 [facility] Comment on above: Performed By: #### G FR, CMP, A1C, MG, LIPID, TSH, TROPHS #### [address] [address] XR CHEST 1 VIEWon 05-08-2024 XR CHEST 1 VIEW ORIGINAL EXAMINATION: ONE XRAY VIEW OF THE CHEST 05/08/2024 4:27 am COMPARISON: Chest x-ray 02/24/2024 HISTORY: ORDERING SYSTEM PROVIDED HISTORY: Reason for Exam: chest pain started around 11 pm states took 3 doses of nitro, little relief chest pain FINDINGS: Cardiomediastinal contour stable. Atherosclerosis of the aorta and bilateral common carotid arteries. Perihilar fullness. No focal consolidation or pulmonary edema. No pneumothorax or pleural effusion. No acute osseous abnormality. IMPRESSION: Cardiomegaly with mild central vascular congestion. I have personally reviewed the images of this examination, and agree with the resident's findings and interpretation. Interpreted by: Francesco Rios MD Preliminary Report By: Bartolo Tapia Electronically signed By Francesco Rios MD Dictated Date: 05/08/2024 4:29:58 AM Prelim Date: 05/08/2024 4:32:47 AM Sign Date: 05/08/2024 4:41:08 AM Ordering Provider: ROBERTA TIRADO [facility] 04-30-2024 CNPN Telephone (FAMPWS) LUIS MANUEL DURAN JR ([id number]) 1940 M Date Time Provider Department 04/30/24 DEANNE SHEN [facility] During your visit today, we recorded the following information about you: Deanne Shen APRN.MAMMOGRAPHER 04/30/2024 1:24 PM Signed Please let patient know his US shows cysts on his kidneys. Recommendation to repeat in 1 year. Results have been sent to Dr. Zayas as well. Please forward results to Dr. Zayas for review. Christine Sarabia MA 04/30/2024 2:34 PM Signed Called and left message on patients voicemail to return call to the office and ask to speak with a triage nurse. Requested paperwork has been faxed to Dr. Zayas at [phone] as requested. CLIF Golden Amanda, RN 04/30/2024 3:04 PM Signed Pt called and is notified of providers results and instructions. Pt voices understanding. Anahi Galindo RN Allergies As of Date: 04/30/2024 Noted Allergy Reaction AXID (NIZATIDINE) 07/31/2005 16 - Unknown ENTEX PSE (PSEUDOEPHEDRINE-GUAIFE* 16 - Unknown LISINOPRIL 11/22/2010 3 - Cough Date Reviewed: 04/10/2024 Reviewed by: Trevin Bermeo MA - Fully Assessed Reason for Visit: Results [95] Primary Visit Diagnosis:ESRD (end stage renal disease) on dialysis (HCC) [N18.6, Z99.2] Order(s):US KIDNEY/BLADDER [[id number]] Order #: [id number] FUTURE Prescriptions as of 04/30/2024 - amLODIPine (NORVASC) 5 mg tablet Take 1 tablet by mouth once daily. - calcium acetate,phosphat bind, (PHOSLO) 667 mg capsule - clopidogrel (PLAVIX) 75 mg tablet Take 1 tablet by mouth every afternoon. - atorvastatin (LIPITOR) 40 mg tablet Take 1 tablet by mouth once daily. For cholesterol. - calcitriol (ROCALTROL) 0.25 mcg capsule Take 1 capsule by mouth two times a day. - calcium citrate (CALCITRATE) 200 mg (950 mg) tab Take 1 tablet by mouth four times daily. - ibuprofen (MOTRIN) 200 mg tablet Take 1-2 tablets by mouth every 4 hours as needed for pain. - acetaminophen (TYLENOL EXTRA STRENGTH) 500 mg tablet Take 2 tablets by mouth every 6 hours as needed for pain. - furosemide (LASIX) 80 mg tablet 1 tablet once daily. Per [facility] - metoprolol tartrate, short acting, (LOPRESSOR) 50 mg tablet 0.5 tablets twice daily. - pantoprazole DR (PROTONIX) 40 mg tablet Take 40 mg by mouth once daily. Take one tablet daily - nitroglycerin sublingual (NITROSTAT) 0.4 mg SL tablet Dissolve 1 tablet under the tongue every 5 minutes as needed. - aspirin, enteric coated (ASPIRIN, ENTERIC COATED) 81 mg EC tablet Take 1 tablet by mouth once daily. 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 deficiency*10/15/2013 03/04/2017 Vitamin D deficiency [E55.9] 10/15/2013 Anemia of chronic disease [D63.8] 10/15/2013 Parathyroid adenoma [D35.1] 10/15/2013 12/24/2014 Primary hyperparathyroidism (HCC) [E21.0] 03/04/2017 Parathyroid adenoma [D35.1] 03/04/2017 06/03/2020 CKD (chronic kidney disease) stage 4, GFR 15-29*03/04/2017 Coronary artery disease involving [place]*03/06/2018 History of non-ST elevation myocardial infarcti*03/06/2018 Elevated PSA [R97.20] 03/11/2019 Medicare annual wellness visit, subsequent [Z00*12/26/2020 Family history of malignant neoplasm of gastroi* Ex-smoker [Z87.891] 12/26/2020 History of COVID-19 [Z86.16] 05/29/2021 Mild aortic stenosis [I35.0] 11/27/2021 Living will on file [VLV8815] 12/15/2021 Advance directive discussed with patient [Z71.8*12/15/2021 Chronic diastolic congestive heart failure (HCC*12/15/2021 Medication management [Z79.899] 02/22/2022 ESRD (end stage renal disease) on dialysis (HCC*07/11/2023 Elevated alkaline phosphatase level [R74.8] 09/24/2023 Encounter Status:Closed by ANAHI GALINDO on 04/30/24 Normal [facility] US KIDNEY/BLADDERon 04-30-20 US KIDNEY/BLADDER * * *Final Report* * * DATE OF EXAM: Apr 30 2024 10:41AM [facility] 1055 - US KIDNEY/BLADDER / PROCEDURE REASON: Renal cyst * * * * Physician Interpretation * * * * EXAMINATION: ULTRASOUND KIDNEYS/BLADDER CLINICAL HISTORY: Kidney cyst. TECHNIQUE: Sonography of the kidneys and urinary bladder was performed. Images were obtained and stored in a permanent archive. MQ: UR_1 COMPARISON: CT abdomen pelvis on 04/21/2024 RESULT: Limitations: Bowel gas. Right Kidney: -Renal length: 8.9 cm -Parenchyma: Increase in parenchymal echogenicity. Normal parenchymal thickness. -Collecting system: No hydronephrosis. -Calculus: No echogenic, shadowing calculus. -Lesion: At least 2 cysts are visualized measuring 2.3 x 1.7 x 2.5 cm (mid, with septation) and 2.9 x 2.3 x 2.9 cm (inferior exophytic). Left Kidney: -Renal length: 8.5 cm -Parenchyma: Increase in parenchymal echogenicity. Normal parenchymal thickness. -Collecting system: No hydronephrosis. -Calculus: No echogenic, shadowing calculus. -Lesion: At least 2 cysts noted measuring 5.1 x 3.8 x 4.8 cm (superior, lobulated) and 3.8 x 3.6 x 5.9 cm (inferior). Bladder: Decompressed/partially decompressed. Prevoid volume 30 ACC. IMPRESSION: Increase in parenchymal echogenicity in the bilateral kidneys, likely representing medical renal disease. Clinically correlation is recommended. Multiple bilateral renal cysts including septated cyst. ACTIONABLE RESULT: FOLLOW-UP Acuity: Actionable Findings: Kidneys/Ureters/Bladder Routing Code: GU_1 Recommendation: US KIDNEY/BLADDER Time Frame: At the discretion of the clinical team. COMMUNICATION: Results will be communicated with the ordering provider via [employer] staff message or phone message by [employer] within 2 business days of report finalization. --END OF FINDING-- Counter Supply Worker: ELHAM Transcribe Date/Time: Apr 30 2024 11:21A Dictated by : YOLA HIGGINS MD This examination was interpreted and the report reviewed and electronically signed by: YOLA HIGGINS MD on Apr 30 2024 11:33AM EST [id number] ACTIONABLE Invalid Interpretation Code [facility] US Kidney - bilateral and Ur inary bladderOrdered By: [facility] Provider on 04-30-2024 Interpretation and review of laboratory results Abnormal [facility] Radiology Result ACTIONABLE Abnormal [facility] Comment on above: This report contains an incidental or actionable finding. This finding may be a new finding separate from the reason your provider ordered the imaging test or it may be an already known finding that needs additional or continued follow-up. Because of this incidental or actionable finding, you may need another test (imaging or a different type of test). Please contact your provider for the next steps. [facility] US Kidney - bilateral and Ur inary bladderon 04-30-2024 IMPRESSION: Increase in parenchymal echogenicity in the bilateral kidneys, likely representing medical renal disease. Clinically correlation is recommended. Multiple bilateral renal cysts including septated cyst. ACTIONABLE RESULT: FOLLOW-UP Acuity: Actionable Findings: Kidneys/Ureters/Bladder Routing Code: GU_1 Recommendation: US KIDNEY/BLADDER Time Frame: At the discretion of the clinical team. COMMUNICATION: Results will be communicated with the ordering provider via [employer] staff message or phone message by [facility] [employer] [facility] within 2 business days of report finalization. --END OF FINDING-- Counter Supply Worker: ELHAM Transcribe Date/Time: Apr 30 2024 11:21A Dictated by : YOLA HIGGINS MD This examination was interpreted and the report reviewed and electronically signed by: YOLA HIGGINS MD on Apr 30 2024 11:33AM [facility] DIVISION OF RADIOLOGY * * *Final Report* * * DATE OF EXAM: Apr 30 2024 10:41AM [facility] 1055 - US KIDNEY/BLADDER / PROCEDURE REASON: Renal cyst * * * * Physician Interpretation * * * * EXAMINATION: ULTRASOUND KIDNEYS/BLADDER CLINICAL HISTORY: Kidney cyst. TECHNIQUE: Sonography of the kidneys and urinary bladder was performed. Images were obtained and stored in a permanent archive. MQ: UR_1 COMPARISON: CT abdomen pelvis on 04/21/2024 RESULT: Limitations: Bowel gas. Right Kidney: -Renal length: 8.9 cm -Parenchyma: Increase in parenchymal echogenicity. Normal parenchymal thickness. -Collecting system: No hydronephrosis. -Calculus: No echogenic, shadowing calculus. -Lesion: At least 2 cysts are visualized measuring 2.3 x 1.7 x 2.5 cm (mid, with septation) and 2.9 x 2.3 x 2.9 cm (inferior exophytic). Left Kidney: -Renal length: 8.5 cm -Parenchyma: Increase in parenchymal echogenicity. Normal parenchymal thickness. -Collecting system: No hydronephrosis. -Calculus: No echogenic, shadowing calculus. -Lesion: At least 2 cysts noted measuring 5.1 x 3.8 x 4.8 cm (superior, lobulated) and 3.8 x 3.6 x 5.9 cm (inferior). Bladder: Decompressed/partially decompressed. Prevoid volume 30 ACC. DIVISION OF RADIOLOGY Provider, [facility] - 04/30/2024 * * *Final Report* * * DATE OF EXAM: Apr 30 2024 10:41AM [facility] 1055 - US KIDNEY/BLADDER / PROCEDURE REASON: Renal cyst * * * * Physician Interpretation * * * * EXAMINATION: ULTRASOUND KIDNEYS/BLADDER CLINICAL HISTORY: Kidney cyst. TECHNIQUE: Sonography of the kidneys and urinary bladder was performed. Images were obtained and stored in a permanent archive. MQ: UR_1 COMPARISON: CT abdomen pelvis on 04/21/2024 RESULT: Limitations: Bowel gas. Right Kidney: -Renal length: 8.9 cm -Parenchyma: Increase in parenchymal echogenicity. Normal parenchymal thickness. -Collecting system: No hydronephrosis. -Calculus: No echogenic, shadowing calculus. -Lesion: At least 2 cysts are visualized measuring 2.3 x 1.7 x 2.5 cm (mid, with septation) and 2.9 x 2.3 x 2.9 cm (inferior exophytic). Left Kidney: -Renal length: 8.5 cm -Parenchyma: Increase in parenchymal echogenicity. Normal parenchymal thickness. -Collecting system: No hydronephrosis. -Calculus: No echogenic, shadowing calculus. -Lesion: At least 2 cysts noted measuring 5.1 x 3.8 x 4.8 cm (superior, lobulated) and 3.8 x 3.6 x 5.9 cm (inferior). Bladder: Decompressed/partially decompressed. Prevoid volume 30 ACC. IMPRESSION IMPRESSION: Increase in parenchymal echogenicity in the bilateral kidneys, likely representing medical renal disease. Clinically correlation is recommended. Multiple bilateral renal cysts including septated cyst. ACTIONABLE RESULT: FOLLOW-UP Acuity: Actionable Findings: Kidneys/Ureters/Bladder Routing Code: GU_1 Recommendation: US KIDNEY/BLADDER Time Frame: At the discretion of the clinical team. COMMUNICATION: Results will be communicated with the ordering provider via [employer] staff message or phone message by [employer] within 2 business days of report finalization. --END OF FINDING-- Counter Supply Worker: ELHAM Transcribe Date/Time: Apr 30 2024 11:21A Dictated by : YOLA HIGGINS MD This examination was interpreted and the report reviewed and electronically signed by: YOLA HIGGINS MD on Apr 30 2024 11:33AM EST [facility] Radiology Study observation (narrative) [facility] 04-24-2024 [facility] Telephone (FAMPWS) LUIS MANUEL DURAN ([id number]) 1940 M Date Time Provider Department 04/24/24 DEANNE SHEN During your visit today, we recorded the following information about you: Deanne Shen APRN.MAMMOGRAPHER 04/24/2024 10:42 AM Signed Please let patient know his CT shows a renal cyst and follow up is recommended with US. I have placed the order and he will need to schedule testing. Imani Muller MA 04/24/2024 10:49 AM Signed Pt notified. Transferred to [facility] to set up US. Imani Muller MA Allergies As of Date: 04/24/2024 Noted Allergy Reaction AXID (NIZATIDINE) 07/31/2005 16 - Unknown ENTEX PSE (PSEUDOEPHEDRINE-GUAIFE* 16 - Unknown LISINOPRIL 11/22/2010 3 - Cough Date Reviewed: 04/10/2024 Reviewed by: Trevin Bermeo MA - Fully Assessed Reason for Visit: Results [95] Primary Visit Diagnosis:Renal cyst [N28.1] Order(s): KIDNEY/BLADDER [[id number]] Order #: [id number] FUTURE Prescriptions as of 04/24/2024 - amLODIPine (NORVASC) 5 mg tablet Take 1 tablet by mouth once daily. - calcium acetate,phosphat bind, (PHOSLO) 667 mg capsule - clopidogrel (PLAVIX) 75 mg tablet Take 1 tablet by mouth every afternoon. - atorvastatin (LIPITOR) 40 mg tablet Take 1 tablet by mouth once daily. For cholesterol. - calcitriol (ROCALTROL) 0.25 mcg capsule Take 1 capsule by mouth two times a day. - calcium citrate (CALCITRATE) 200 mg (950 mg) tab Take 1 tablet by mouth four times daily. - ibuprofen (MOTRIN) 200 mg tablet Take 1-2 tablets by mouth every 4 hours as needed for pain. - acetaminophen (TYLENOL EXTRA STRENGTH) 500 mg tablet Take 2 tablets by mouth every 6 hours as needed for pain. - furosemide (LASIX) 80 mg tablet 1 tablet once daily. Per [facility] - metoprolol tartrate, short acting, (LOPRESSOR) 50 mg tablet 0.5 tablets twice daily. - pantoprazole DR (PROTONIX) 40 mg tablet Take 40 mg by mouth once daily. Take one tablet daily - nitroglycerin sublingual (NITROSTAT) 0.4 mg SL tablet Dissolve 1 tablet under the tongue every 5 minutes as needed. - aspirin, enteric coated (ASPIRIN, ENTERIC COATED) 81 mg EC tablet Take 1 tablet by mouth once daily. 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 deficiency*10/15/2013 03/04/2017 Vitamin D deficiency [E55.9] 10/15/2013 Anemia of chronic disease [D63.8] 10/15/2013 Parathyroid adenoma [D35.1] 10/15/2013 12/24/2014 Primary hyperparathyroidism (HCC) [E21.0] 03/04/2017 Parathyroid adenoma [D35.1] 03/04/2017 06/03/2020 CKD (chronic kidney disease) stage 4, GFR 15-29*03/04/2017 Coronary artery disease involving white [place] foster*03/06/2018 History of non-ST elevation myocardial infarcti*03/06/2018 Elevated PSA [R97.20] 03/11/2019 Medicare annual wellness visit, subsequent [Z00*12/26/2020 Family history of malignant neoplasm of gastroi* Ex-smoker [Z87.891] 12/26/2020 History of COVID-19 [Z86.16] 05/29/2021 Mild aortic stenosis [I35.0] 11/27/2021 Living will on file [[id number]] 12/15/2021 Advance directive discussed with patient [Z71.8*12/15/2021 Chronic diastolic congestive heart failure (HCC*12/15/2021 Medication management [Z79.899] 02/22/2022 ESRD (end stage renal disease) on dialysis (HCC*07/11/2023 Elevated alkaline phosphatase level [R74.8] 09/24/2023 Encounter Status:Closed by IMANI MULLER on 04/24/24 Normal [facility] CT ABD/PEL WO IVCONon 2023 CT ABD/PEL WO IVCON * * *Final Report* * * DATE OF EXAM: Apr 21 2024 9:57AM [facility] 0531 - CT ABD/PEL WO IVCON / PROCEDURE REASON: multiple diagnoses * * * * Physician Interpretation * * * * EXAMINATION: CT ABDOMEN AND PELVIS WITHOUT IV CONTRAST CLINICAL HISTORY: Diarrhea TECHNIQUE: Non-IV contrast imaging of the abdomen and pelvis was performed using standard technique, scanning from just above the dome of the diaphragm to the symphysis pubis. Unenhanced imaging is limited for the evaluation of some intra-abdominal and pelvic pathology. MQ: CTAPWO_3 Contrast: IV: None Oral: 10 ml of Omni 240 10-25ml diluted with water CT Radiation dose: Integrated Dose-length product (DLP) for this visit = 542 mGy*cm. CT Dose Reduction Employed: Automated exposure control(AEC) and iterative recon COMPARISON: None. RESULT: Abdomen / Pelvis: Liver: Hypodensities, likely representing cysts, the largest measuring 3 cm in segment 4A. Small calcifications, likely granulomatous Biliary: Gallbladder is unremarkable. No ductal dilatation. Spleen: No splenomegaly. Pancreas: Unremarkable. Adrenals: No mass. Kidneys: Multiple simple fluid attenuation lesions, likely benign cysts. Some have thin rim calcifications. No collecting system calculus or hydronephrosis. Higher than water attenuation exophytic nodule projecting from the lower pole of the left kidney measuring up to 2 cm, indeterminate. GI Tract: No bowel dilation. Normal appendix. There is diverticulosis. No changes of diverticulitis. Small hiatal hernia Lymph Nodes: No lymphadenopathy. Mesentery/peritoneum: No ascites. Retroperitoneum: No mass. Vasculature: Arterial atherosclerotic disease without aneurysm. Pelvis: No mass or ascites. Bones/Soft Tissues: Degenerative changes. Bilateral L5 spondylolysis with minimal L5-S1 spondylolisthesis Lower thorax: 4 mm left lower lobe pulmonary nodule, 5:21. 3 mm right lower lobe nodule 5:19. Left lower lobe calcified granuloma. Localizer images: No additional findings. IMPRESSION: Indeterminate left renal lesion, hyperdense cyst versus solid mass. Targeted renal ultrasound is recommended. Incidental Finding: Follow-up Acuity: Incidental Finding: Solid: <6 mm (solitary or multiple) Routing Code: N/A Recommendation: No imaging follow-up is recommended Time Frame: N/A Comments: If there are risk factors for lung malignancy, a follow-up chest CT exam could be obtained in 12 months --END OF FINDING-- ACTIONABLE RESULT: FOLLOW-UP Acuity: Actionable Findings: Kidneys/Ureters/Bladder Routing Code: GU_1 Recommendation: US KIDNEY/BLADDER Time Frame: Non-urgent, but prompt follow-up COMMUNICATION: Results will be communicated with the ordering provider via [employer] staff message or phone message by [employer] within 2 business days of report finalization. --END OF FINDING-- Counter Supply Worker: ELHAM Transcribe Date/Time: Apr 24 2024 5:38A Dictated by : EDIE RIVERA MD This examination was interpreted and the report reviewed and electronically signed by: EDIE RIVERA MD on Apr 24 2024 5:47AM EST [id number] ACTIONABLE Invalid Interpretation Code [facility] LUIS MANUEL DURAN JR ([id number]) 1940 M Date Time Provider Department 04/14/24 DEANNE SHEN During your visit today, we recorded the following information about you: Deanne Shen APRN.MAMMOGRAPHER 04/14/2024 8:08 AM Signed Please let patient know their labs are stable. Trevin Bermeo MA 04/14/2024 10:31 AM Signed Pt notified and verbalized understanding Trevin Bermeo MA Allergies As of Date: 04/14/2024 Noted Allergy Reaction AXID (NIZATIDINE) 07/31/2005 16 - Unknown ENTEX PSE (PSEUDOEPHEDRINE-GUAIFE* 16 - Unknown LISINOPRIL 11/22/2010 3 - Cough Date Reviewed: 04/10/2024 Reviewed by: Trevin Bermeo MA - Fully Assessed Reason for Visit: Results [95] Prescriptions as of 04/14/2024 - amLODIPine (NORVASC) 5 mg tablet Take 1 tablet by mouth once daily. - calcium acetate,phosphat bind, (PHOSLO) 667 mg capsule - clopidogrel (PLAVIX) 75 mg tablet Take 1 tablet by mouth every afternoon. - atorvastatin (LIPITOR) 40 mg tablet Take 1 tablet by mouth once daily. For cholesterol. - calcitriol (ROCALTROL) 0.25 mcg capsule Take 1 capsule by mouth two times a day. - calcium citrate (CALCITRATE) 200 mg (950 mg) tab Take 1 tablet by mouth four times daily. - ibuprofen (MOTRIN) 200 mg tablet Take 1-2 tablets by mouth every 4 hours as needed for pain. - acetaminophen (TYLENOL EXTRA STRENGTH) 500 mg tablet Take 2 tablets by mouth every 6 hours as needed for pain. - furosemide (LASIX) 80 mg tablet 1 tablet once daily. Per [facility] - metoprolol tartrate, short acting, (LOPRESSOR) 50 mg tablet 0.5 tablets twice daily. - pantoprazole DR (PROTONIX) 40 mg tablet Take 40 mg by mouth once daily. Take one tablet daily - nitroglycerin sublingual (NITROSTAT) 0.4 mg SL tablet Dissolve 1 tablet under the tongue every 5 minutes as needed. - aspirin, enteric coated (ASPIRIN, ENTERIC COATED) 81 mg EC tablet Take 1 tablet by mouth once daily. 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/2005 Esophagitis, unspecified [K20.90] 10/19/2008 10/15/2013 Benign essential tremor [G25.0] 07/03/2010 Mixed hyperlipidemia [E78.2] 09/03/2013 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 deficiency*10/15/2013 03/04/2017 Vitamin D deficiency [E55.9] 10/15/2013 Anemia of chronic disease [D63.8] 10/15/2013 Parathyroid adenoma [D35.1] 10/15/2013 12/24/2014 Primary hyperparathyroidism (HCC) [E21.0] 03/04/2017 Parathyroid adenoma [D35.1] 03/04/2017 06/03/2020 CKD (chronic kidney disease) stage 4, GFR 15-29*03/04/2017 Coronary artery disease involving [place] foster*03/06/2018 History of non-ST elevation myocardial infarcti*03/06/2018 Elevated PSA [R97.20] 03/11/2019 Medicare annual wellness visit, subsequent [Z00*12/26/2020 Family history of malignant neoplasm of gastroi* Ex-smoker [Z87.891] 12/26/2020 History of COVID-19 [Z86.16] 05/29/2021 Mild aortic stenosis [I35.0] 11/27/2021 Living will on file [[id number]] 12/15/2021 Advance directive discussed with patient [Z71.8*12/15/2021 Chronic diastolic congestive heart failure (HCC*12/15/2021 Medication management [Z79.899] 02/22/2022 ESRD (end stage renal disease) on dialysis (HCC*07/11/2023 Elevated alkaline phosphatase level [R74.8] 09/24/2023 Encounter Status:Closed by TREVIN BERMEO CMA on 04/14/24 Normal [facility] Amylase SerPl-cCncon 024 Amylase [Catalytic activity/Vol] 99 U/L Normal 30-104 [facility] Comment on above: Order Comment: Speci men Type: BLOOD SPECIMENOrdering Facility: [facility] Address: [address] [place] [address] Performed By: #### 2 4323-8, 1798-8, 3040-3 ####[facility] LABCLIA [id number] [place] [address] [place] CBC W Auto Differential pane l (Bld)on 04-10-2024 Basophils (Bld) [#/Vol] 0.03 10*3/uL Normal <0.11 [facility] Comment on above: Order Comment: Speci men Type: BLOOD SPECIMENOrdering Facility: [facility] Address: [address] [place] [address] Performed By: #### 5 7021-8 ####[facility] LABCLIA [id number] [place] [address] [place] Basophils/100 WBC (Bld) 0.4 % Normal [facility] Comment on above: Order Comment: Speci men Type: BLOOD SPECIMENOrdering Facility: [facility] Address: [address] [place] [address] Performed By: #### 5 7021-8 ####[facility] LABCLIA [id number] [place] [address] [place] Differential cell count method Nom (Bld) Auto Normal [facility] Comment on above: Order Comment: Speci men Type: BLOOD SPECIMENOrdering Facility: [facility] Address: [address] [place] [address] Performed By: #### 5 7021-8 ####[facility] LABCLIA [id number] [place] [address] [place] Eosinophils (Bld) [#/Vol] 0.30 10*3/uL Normal <0.46 [facility] Comment on above: Order Comment: Speci men Type: BLOOD SPECIMENOrdering Facility: [facility] Address: [address] [place] [address] Performed By: #### 5 7021-8 ####[facility] LABCLIA [id number] [place] [address] [place] Eosinophils/100 WBC (Bld) 4.1 % Normal [facility] Comment on above: Order Comment: Speci men Type: BLOOD SPECIMENOrdering Facility: [facility] Address: [address] [place] [address] Performed By: #### 5 7021-8 ####[facility] LABIA [id number] [place] [address] [place] Erythrocyte distribution width (RBC) [Ratio] 17.1 % High 11.5-15.0 [facility] Comment on above: Order Comment: Speci men Type: BLOOD SPECIMENOrdering Facility: [facility] Address: [address] [place] [address] Performed By: #### 5 7021-8 ####[facility] LABIA [id number] [place] [address] [place] Hematocrit (Bld) [Volume fraction] 36.1 % Low 39.0-51.0 [facility] Comment on above: Order Comment: Speci men Type: BLOOD SPECIMENOrdering Facility: [facility] Address: [address] [place] [address] Performed By: #### 5 7021-8 ####[facility] LABIA [id number] [place] [address] [place] Hemoglobin (Bld) [Mass/Vol] 11.1 g/dL Low 13.0-17.0 [facility] Comment on above: Order Comment: Speci men Type: BLOOD SPECIMENOrdering Facility: [facility] Address: [address] [place] [address] Performed By: #### 5 7021-8 ####[facility] LABIA [id number] [place] [address] [place] Immature granulocytes (Bld) [#/Vol] 0.03 10*3/uL Normal <0.10 [facility] Comment on above: Order Comment: Speci men Type: BLOOD SPECIMENOrdering Facility: [facility] Address: [address] [place] [address] Performed By: #### 5 7021-8 ####[facility] LABCLIA [id number] [place] [address] [place] Immature granulocytes/100 WBC (Bld) 0.4 % Normal [facility] Comment on above: Order Comment: Speci men Type: BLOOD SPECIMENOrdering Facility: [facility] Address: [address] [place] [address] Performed By: #### 5 7021-8 ####[facility] LABIA [id number] [place] [address] [place] Lymphocytes (Bld) [#/Vol] 1.47 10*3/uL Normal 1.00-4.00 [facility] Comment on above: Order Comment: Speci men Type: BLOOD SPECIMENOrdering Facility: [facility] Address: [address] [place] [address] Performed By: #### 5 7021-8 ####[facility] LABIA [id number] [place] [address] [place] Lymphocytes/100 WBC (Bld) 20.1 % Normal [facility] Comment on above: Order Comment: Speci men Type: BLOOD SPECIMENOrdering Facility: [facility] Address: [address] [place] [address] Performed By: #### 5 7021-8 ####[facility] LABIA [id number] [place] [address] [place] MCH (RBC) [Entitic mass] 31.0 pg Normal 26.0-34.0 [facility] Comment on above: Order Comment: Speci men Type: BLOOD SPECIMENOrdering Facility: [facility] Address: [address] [place] [address] Performed By: #### 5 7021-8 ####[facility] LABIA [id number] [place] [address] [place] MCHC (RBC) [Mass/Vol] 30.7 g/dL Normal 30.5-36.0 [facility] Comment on above: Order Comment: Speci men Type: BLOOD SPECIMENOrdering Facility: [facility] Address: [address] [place] [address] Performed By: #### 5 7021-8 ####[facility] LABCLIA [id number] [place] [address] [place] MCV (RBC) [Entitic vol] 100.8 fL High 80.0-100.0 [facility] Comment on above: Order Comment: Speci men Type: BLOOD SPECIMENOrdering Facility: [facility] Address: [address] [place] [address] Performed By: #### 5 7021-8 ####[facility] LABIA [id number] [place] [address] [place] Monocytes (Bld) [#/Vol] 0.75 10*3/uL Normal <0.87 [facility] Comment on above: Order Comment: Speci men Type: BLOOD SPECIMENOrdering Facility: [facility] Address: [address] [place] [address] Performed By: #### 5 7021-8 ####[facility] LABCLIA [id number] [place] [address] [place] Monocytes/100 WBC (Bld) 10.2 % Normal [facility] Comment on above: Order Comment: Speci men Type: BLOOD SPECIMENOrdering Facility: [facility] Address: [address] [place] [address] Performed By: #### 5 7021-8 ####[facility] LABIA [id number] [place] [address] [place] Neutrophils (Bld) [#/Vol] 4.74 10*3/uL Normal 1.45-7.50 [facility] Comment on above: Order Comment: Speci men Type: BLOOD SPECIMENOrdering Facility: [facility] Address: [address] [place] [address] Performed By: #### 5 7021-8 ####[facility] LABCLIA [id number] [place] [address] [place] Neutrophils/100 WBC (Bld) 64.8 % Normal [facility] Comment on above: Order Comment: Speci men Type: BLOOD SPECIMENOrdering Facility: [facility] Address: [address] [place] [address] Performed By: #### 5 7021-8 ####[facility] LABCLIA [id number] [place] [address] [place] Nucleated RBC (Bld) [#/Vol] 10*3/uL Normal <0.01 [facility] Comment on above: Order Comment: Speci men Type: BLOOD SPECIMENOrdering Facility: [facility] Address: [address] [place] [address] Performed By: #### 5 7021-8 ####[facility] LABIA [id number] [place] [address] [place] Nucleated RBC/100 WBC (Bld) [Ratio] 0.0 /100 WBC Normal [facility] Comment on above: Order Comment: Speci men Type: BLOOD SPECIMENOrdering Facility: [facility] Address: [address] [place] [address] Performed By: #### 5 7021-8 ####[facility] LABIA [id number] [place] [address] [place] Platelet mean volume (Bld) [Entitic vol] 10.4 fL Normal 9.0-12.7 [facility] Comment on above: Order Comment: Speci men Type: BLOOD SPECIMENOrdering Facility: [facility] Address: [address] [place] [address] Performed By: #### 5 7021-8 ####[facility] LABCLIA [id number] [place] [address] [place] Platelets (Bld) [#/Vol] 220 10*3/uL Normal 150-400 [facility] Comment on above: Order Comment: Speci men Type: BLOOD SPECIMENOrdering Facility: [facility] Address: [address] [place] [address] Performed By: #### 5 7021-8 ####[facility] LABCLIA [id number] [place] [address] [place] RBC (Bld) [#/Vol] 3.58 10*6/uL Low 4.20-6.00 [facility] Comment on above: Order Comment: Speci men Type: BLOOD SPECIMENOrdering Facility: [facility] Address: [address] [place] [address] Performed By: #### 5 7021-8 ####[facility] LABCLIA [id number] [place] [address] [place] WBC (Bld) [#/Vol] 7.32 10*3/uL Normal 3.70-11.00 [facility] Comment on above: Order Comment: Speci men Type: BLOOD SPECIMENOrdering Facility: [facility] Address: [address] [place] [address] Performed By: #### 5 7021-8 ####[facility] LABCLIA [id number] [place] [address] [place] CNOVon 04-10-2024 CNOV Office Visit (BECKY ) LUIS MANUEL DURAN JR ([id number]) 1940 M Date Time Provider Department 04/10/24 11:40 AM DEANNE HSEN During your visit today, we recorded the following information about you: Pulse Respiration Blood pressure Weight 87/minute 16/minute 120/58 77.1 kg Deanne Shen APRN.VIOLETTE 04/10/2024 12:04 PM Signed Chief Complaint Patient presents with: Gas: X 6 weeks Vomiting: On and off X 6 weeks HPI Luis Manuel Duran JR is a 83 year old male who presents here today for Above Complaints.. Patient Past medical history, appointments, medications, allergies reviewed. Previous Medical History PAST MEDICAL HISTORY 12/15/2021: Advance directive discussed with patient Comment: Discussed 12/202110/15/2013: Anemia of chronic disease 07/03/2010: Benign essential tremor 08/01/2005: BPH with obstruction/lower urinary tract symptoms 12/15/2021: Chronic diastolic congestive heart failure (HCC) Comment: seeing cardio 03/04/2017: CKD (chronic kidney disease) stage 4, GFR 15-29 ml/min ([facility]) 03/06/2018: Coronary artery disease involving white mountain coronary artery of white mountain heart without angina pectoris Comment: Seeing Dr. Horton Cardio Marc 05/29/2021: COVID-19 virus infection Comment: 05/27/2021 No date: Diaphragmatic hernia without mention of obstruction or gangrene Comment: Hiatal hernia 09/24/2023: Elevated alkaline phosphatase level Comment: Elevated bone fraction: [place] bone scan 09/2023 was normal. 03/11/2019: Elevated PSA No date: Esophagitis, unspecified 07/11/2023: ESRD (end stage renal disease) on dialysis ([facility]) No date: Essential hypertension, benign 12/26/2020: Ex-smoker Comment: Started age 18 up to 1.5 PPD and quit at age 35. No date: Family history of malignant neoplasm of gastrointestinal tract No date: GERD without esophagitis Comment: Gastroesophageal reflux 05/29/2021: History of COVID-19 Comment: 05/27/2021 03/06/2018: History of non-ST elevation myocardial infarction (NSTEMI) Comment: 09/06/14-- stent 10/15/2013: 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 deficiency ([facility]) 12/15/2021: Living will on file Comment: DPA: Shea () 11/27/2021: Mild aortic stenosis Comment: Seeing Cardio 09/03/2013: Mixed hyperlipidemia No date: Overweight (BMI 25.0-29.9) 05/27/2013: Parathyroid adenoma Comment: parathyroidectomy 05/27/13 No date: Personal history of colonic polyps Comment: Colon polyps 03/04/2017: Primary hyperparathyroidism (HCC) Comment: 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: 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 06/2010: TIA (transient ischemic attack) No date: Ulcer of esophagus without bleeding 10/15/2013: Vitamin D deficiency Previous Surgical History PAST SURGICAL HISTORY No date: BX/EXC LYMPH NODE OPEN SUPERFICIAL 11/18/2023: CC CORONARY STENT Comment: 2 stents to Left Circ 12/22/2019: COLONOSCOPY 08/2000: COLONOSCOPY FLX DX W/COLLJ SPEC WHEN PFRMD Comment: Colonoscopy 10/19/2008: COLONOSCOPY FLX DX W/COLLJ SPEC WHEN PFRMD 10/19/2008: EGD TRANSORAL BIOPSY SINGLE/MULTIPLE No date: ESOPHAGOGASTRODUODENOSCOPY TRANSORAL DIAGNOSTIC 12/22/2012: ESOPHAGOGASTRODUODENOSCOPY TRANSORAL DIAGNOSTIC Comment: EGD Dr. Marcial 05/21/2018: LAPAROSCOPIC HERNIA REPAIR; Right Comment: recurrent incarcerated direct right inguinal hernia 05/27/2013: PARATHYROIDECTOMY/EXPLORATI ON PARATHYROIDS Comment: Parathyroid adenoma 01/20/2021: PAST SURGICAL HISTORY OF Comment: supraumbilical ventral hernia No date: RPR 1ST INGUN HRNA AGE 6 YRS/> REDUCIBLE Comment: Hernia repair, inguinal BILATERAL Family History FAMILY HISTORY Problem Relation Age of Onset Colon Cancer Mother Colon Cancer Father Arthritis Mother Heart Father SD * 2 Prostate Cancer Brother Hypertension Brother None Brother Patient Allergies ALLERGIES Allergen Reactions Axid [Nizatidine] Unknown Entex Pse [Pseudoep* Unknown Lisinopril Cough Current Medications Current Outpatient Medications on File Prior to Visit Medication Sig metoprolol tartrate, short acting, (LOPRESSOR) 50 mg tablet 0.5 tablets twice daily. (Patient taking differently: Take 25 mg by mouth once daily.) amLODIPine (NORVASC) 5 mg tablet Take 1 tablet by mouth once daily. (Patient not taking: Reported on 04/10/2024) calcium acetate,phosphat bind, (PHOSLO) 667 mg capsule clopidogrel (PLAVIX) 75 mg tablet Take 1 tablet by mouth every afternoon. atorvastatin (LIPITOR) 40 mg tablet Take 1 tablet by mouth once daily. For cholesterol. calcitriol (ROCALTROL) 0.25 mcg capsule Take 1 capsule by mouth two times a day. calcium citrate (CALCITRATE) 200 mg (950 mg) tab Take 1 tablet by mouth four times daily. ibuprofen (MOTRIN) 200 mg tablet Take 1-2 tablets by mouth every 4 hours as needed for pain. acetaminophen (TYLENOL EXTRA STRENGTH) 500 mg tablet Take 2 tablets by (more content not included)... Normal [facility] Comprehensive metabolic 2000 panelon 04-10-2024 Albumin [Mass/Vol] 4.2 g/dL Normal 3.9-4.9 [facility] Comment on above: Order Comment: Speci men Type: BLOOD SPECIMENOrdering Facility: [facility] Address: [address] [place] [address] Performed By: #### 2 4323-8, 8, 3039-3 ####[facility] LABIA [id number] [place] [address] [place] ALP [Catalytic activity/Vol] 122 U/L High 38-113 [facility] Comment on above: Order Comment: Speci men Type: BLOOD SPECIMENOrdering Facility: [facility] Address: [address] [place] [address] Performed By: #### 2 4323-8, 1798-03, 3 ####[facility] LABIA [id number] [place] [address] [place] ALT [Catalytic activity/Vol] 11 U/L Normal 10-54 [facility] Comment on above: Order Comment: Speci men Type: BLOOD SPECIMENOrdering Facility: [facility] Address: [address] [place] [address] Performed By: #### 2 4323-8, 8, 3039-3 ####[facility] LABIA [id number] [place] [address] [place] Anion gap [Moles/Vol] 13 mmol/L Normal 8-15 [facility] Comment on above: Order Comment: Speci men Type: BLOOD SPECIMENOrdering Facility: [facility] Address: [address] [place] [address] Performed By: #### 2 4323-8, 179-8, 0-3 ####[facility] LABIA [id number] [place] [address] [place] AST [Catalytic activity/Vol] 21 U/L Normal 14-40 [facility] Comment on above: Order Comment: Speci men Type: BLOOD SPECIMENOrdering Facility: [facility] Address: [address] [place] [address] Performed By: #### 2 4323-8, 1797-8, 3039-3 ####[facility] LABIA [id number] [place] [address] [place] Bilirubin [Mass/Vol] 0.3 mg/dL Normal 0.2-1.3 [facility] Comment on above: Order Comment: Speci men Type: BLOOD SPECIMENOrdering Facility: [facility] Address: [address] [place] [address] Performed By: #### 2 4323-8, 1797-8, 3039-3 ####[facility] LABIA [id number] [place] [address] [place] Calcium [Mass/Vol] 9.7 mg/dL Normal 8.5-10.2 [facility] Comment on above: Order Comment: Speci men Type: BLOOD SPECIMENOrdering Facility: [facility] Address: [address] [place] [address] Performed By: #### 2 4323-8, 1797-8, 3039-3 ####[facility] LABIA [id number] [place] [address] [place] Chloride [Moles/Vol] 97 mmol/L Low 98-107 [facility] Comment on above: Order Comment: Speci men Type: BLOOD SPECIMENOrdering Facility: [facility] Address: [address] [place] [address] Performed By: #### 2 4323-8, 1797-8, 0-3 ####[facility] LABCLIA [id number] [place] [address] [place] CO2 [Moles/Vol] 31 mmol/L High 22-30 [facility] Comment on above: Order Comment: Speci men Type: BLOOD SPECIMENOrdering Facility: [facility] Address: [address] [place] [address] Performed By: #### 2 4323-8, 8, 0-3 ####[facility] LABIA [id number] [place] [address] [place] Creatinine [Mass/Vol] 3.48 mg/dL High 0.73-1.22 [facility] Comment on above: Order Comment: Speci men Type: BLOOD SPECIMENOrdering Facility: [facility] Address: [address] [place] [address] Performed By: #### 2 4323-8, 8, 3039-3 ####[facility] LABIA [id number] [place] [address] [place] Creatinine and Glomerular filtration rate.predicted panel (S/P/Bld) 17 mL/min/1.73m??? Low >=60 [facility] Comment on above: Order Comment: Speci men Type: BLOOD SPECIMENOrdering Facility: [facility] Address: [address] [place] [address] Result Comment: Elena mated Glomerular Filtration Rate (eGFR) is calculated using the 2020 CKD-EPI creatinine equation. This equation utilizes serum creatinine, sex, and age as parameters. The creatinine assay has traceable calibration to isotope dilution-mass spectrometry. Refer to KDIGO guidelines for clinical interpretation. In patients with unstable renal function, e.g. those with acute kidney injury, the eGFR may not accurately reflect actual GFR. Performed By: #### 2 4323-8, 1797-8, 0-3 ####[facility] LABCLIA [id number] [place] [address] [place] Glucose [Mass/Vol] 104 mg/dL High 74-99 [facility] Comment on above: Order Comment: Speci men Type: BLOOD SPECIMENOrdering Facility: [facility] Address: [address] [place] [address] Result Comment: The [place] [employer] (ADA) provides guidance for cutoff values for fasting glucose and random glucose. The ADA defines fasting as no caloric intake for at least 8 hours. Fasting plasma glucose results between 100 to 125 mg/dL indicate increased risk for diabetes (prediabetes). Fasting plasma glucose results greater than or equal to 126 mg/dL meet the criteria for diagnosis of diabetes. In the absence of unequivocal hyperglycemia, results should be confirmed by repeat testing. In a patient with classic symptoms of hyperglycemia or hyperglycemic crisis, random plasma glucose results greater than or equal to 200 mg/dL meet the criteria for diagnosis of diabetes. Reference: Standards of Medical Care in Diabetes 2016, [place] [employer]. Diabetes Care. 2016.39(Suppl 1). Performed By: #### 2 4323-8, 8, 3039-3 ####[facility] LABCLIA [id number] [place] [address] [place] Potassium [Moles/Vol] 4.2 mmol/L Normal 3.7-5.1 [facility] Comment on above: Order Comment: Speci men Type: BLOOD SPECIMENOrdering Facility: [facility] Address: [address] [place] [address] Performed By: #### 2 4323-8, 8, 3039-3 ####[facility] LABCLIA [id number] [place] [id number] [place] Protein [Mass/Vol] 7.3 g/dL Normal 6.3-8.0 [facility] Comment on above: Order Comment: Speci men Type: BLOOD SPECIMENOrdering Facility: [facility] Address: [address] [place] [address] Performed By: #### 2 4323-8, 8, 0-3 ####[facility] LABCLIA [id number] [address] [address] [place] Sodium [Moles/Vol] 141 mmol/L Normal 136-144 [facility] Comment on above: Order Comment: Speci men Type: BLOOD SPECIMENOrdering Facility: [facility] Address: [address] [place] [address] Performed By: #### 2 4323-8, 1798-8, 3040-3 ####[facility] LABCLIA [id number] [place] [id number] [place] Urea nitrogen [Mass/Vol] 17 mg/dL Normal 9-24 [facility] Comment on above: Order Comment: Speci men Type: BLOOD SPECIMENOrdering Facility: [facility] Address: [address] [place] [address] Performed By: #### 2 4323-8, 179-8, 3040-3 ####[facility] LABCLIA [id number] [place] [address] [place] Lipase SerPl-cCncon 04-10-20 24 Lipase [Catalytic activity/Vol] 40 U/L Normal 16-61 [facility] Comment on above: Order Comment: Speci men Type: BLOOD SPECIMENOrdering Facility: [facility] Address: [address] [place] [address] Performed By: #### 2 4323-8, 179-8, 3040-3 ####[facility] LABCLIA [id number] [place] [id number] [place] .Auto Diffon 02-25-2024 Basophil, Absolute 0.0 10 3/mcL Normal 0.0-0.3 [facility] ([place] Comment on above: Performed By: #### C BC, DARIEN, ANISHA, MDW, ANEU, GFR, PBNP, CMP #### [address] [address] Basophils/100 WBC (Bld) 0.6 % Normal 0.0-2.5 [facility] ([place]) Comment on above: Performed By: #### C DARIEN PYLE TROPHS, MDW, ANEU, GFR, PBNP, CMP #### [address] [address] Eosinophil, Absolute 0.1 10 3/mcL Normal 0.0-0.7 [facility] ([place]) Comment on above: Performed By: #### C DARIEN PYLE TROPHS, MDW, ANEU, GFR, PBNP, CMP #### [address] [address] Eosinophils/100 WBC (Bld) 2.1 % Normal 0.0-6.0 [facility] ([place]) Comment on above: Performed By: #### C DARIEN PYLE TROPHS, MDW, ANEU, GFR, PBNP, CMP #### [address] [address] Lymphocyte, Absolute 0.7 10 3/mcL Low 0.9-4.3 [facility] ([place]) Comment on above: Performed By: #### C DARIEN PYLE TROPHS, MDW, ANEU, GFR, PBNP, CMP #### [address] [address] Lymphocytes/100 WBC (Bld) 12.6 % Low 20.0-40.0 [facility] ([place]) Comment on above: Performed By: #### C DARIEN PYLE TROPHS, MDW, ANEU, GFR, PBNP, CMP #### [address] [address] Monocyte, Absolute 0.5 10 3/mcL Normal 0.1-1.4 [facility] [place] Comment on above: Performed By: #### C DARIEN PYLE TROPHS, MDW, ANEU, GFR, PBNP, CMP #### [address] [address] Monocytes/100 WBC (Bld) 10.1 % Normal 2.0-13.0 [facility] ([place]) Comment on above: Performed By: #### C DARIEN PYLE TROPHS, MDW, ANEU, GFR, PBNP, CMP #### [address] [address] Neutrophils/100 WBC (Bld) 74.6 % Normal 50.0-75.0 [facility] ([place]) Comment on above: Performed By: #### C DARIEN PYLE TROPHS, MDW, ANEU, GFR, PBNP, CMP #### [address] [address] .GFRon 02-25-2024 GFR 13 ml/min/1.73sqm Normal [facility] ([place]) Comment on above: Result Comment: GFR Population mean for , Non- Americans Ages 20-29 = 116 mL/min/1.73 sq.m. Ages 30-39 = 107 mL/min/1.73 sq.m. Ages 40-49 = 99 mL/min/1.73 sq.m. Ages 50-59 = 93 mL/min/1.73 sq.m. Ages 60-69 = 85 mL/min/1.73 sq.m. Ages 70+ = 75 mL/min/1.73 sq.m. Chronic Kidney Disease: Less than 60 mL/min/1.73 square meters End Stage Renal Disease: Less than 15 mL/min/1.73 square meters Performed By: #### C DARIEN PYLE TROPHS, MDW, ANEU, GFR, PBNP, CMP #### [address] [address] GFR Non- 11 ml/min/1.73sqm Normal [facility] ([place]) Comment on above: Result Comment: GFR Population mean for , Non- Americans Ages 20-29 = 116 mL/min/1.73 sq.m. Ages 30-39 = 107 mL/min/1.73 sq.m. Ages 40-49 = 99 mL/min/1.73 sq.m. Ages 50-59 = 93 mL/min/1.73 sq.m. Ages 60-69 = 85 mL/min/1.73 sq.m. Ages 70+ = 75 mL/min/1.73 sq.m. Chronic Kidney Disease: Less than 60 mL/min/1.73 square meters End Stage Renal Disease: Less than 15 mL/min/1.73 square meters Performed By: #### C DARIEN PYLE TROPHS, MDW, ANEU, GFR, PBNP, CMP #### [address] [address] GFR 15 ml/min/1.73sqm Normal [facility] ([place]) Comment on above: Result Comment: GFR Population mean for , Non- Americans Ages 20-29 = 116 mL/min/1.73 sq.m. Ages 30-39 = 107 mL/min/1.73 sq.m. Ages 40-49 = 99 mL/min/1.73 sq.m. Ages 50-59 = 93 mL/min/1.73 sq.m. Ages 60-69 = 85 mL/min/1.73 sq.m. Ages 70+ = 75 mL/min/1.73 sq.m. Chronic Kidney Disease: Less than 60 mL/min/1.73 square meters End Stage Renal Disease: Less than 15 mL/min/1.73 square meters Performed By: #### C DARIEN PYLE TROPHS, MDW, ANEU, GFR, PBNP, CMP #### [address] [address] GFR Non- 12 ml/min/1.73sqm [facility] ([place]) Comment on above: Result Comment: GFR Population mean for , Non- Americans Ages 20-29 = 116 mL/min/1.73 sq.m. Ages 30-39 = 107 mL/min/1.73 sq.m. Ages 40-49 = 99 mL/min/1.73 sq.m. Ages 50-59 = 93 mL/min/1.73 sq.m. Ages 60-69 = 85 mL/min/1.73 sq.m. Ages 70+ = 75 mL/min/1.73 sq.m. Chronic Kidney Disease: Less than 60 mL/min/1.73 square meters End Stage Renal Disease: Less than 15 mL/min/1.73 square meters Performed By: #### C DARIEN PYLE TROPHS, MDW, ANEU, GFR, PBNP, CMP #### [address] [address] .NEUABSon 02-25-2024 Neutrophil, Absolute 4.0 10 3/mcL Normal 2.3-8.1 [facility] ([place]) Comment on above: Performed By: #### C DARIEN PYLE TROPHS, ERNST, ANEU, GFR, PBNP, CMP #### [address] [address] BMPon 02-25-2024 BUN/Creatinine Ratio 7.2 ratio Low 10.0-22.0 [facility] ([place]) Comment on above: Performed By: #### C DARIEN PYLE TROPHS, MDW, ANEU, GFR, PBNP, CMP #### [address] [address] Calcium [Mass/Vol] 8.7 mg/dL Normal 8.7-10.4 [facility] ([place]) Comment on above: Performed By: #### C DARIEN PYLE TROPHS, ERNST, ANEU, GFR, PBNP, CMP #### [address] [address] Chloride [Moles/Vol] 104 mmol/L Normal 98-110 [facility] ([place]) Comment on above: Performed By: #### C DARIEN PYLE TROPHS, ERNST, ANEU, GFR, PBNP, CMP #### [address] [address] CO2 [Moles/Vol] 23 mmol/L Normal 22-32 [facility] ([place]) Comment on above: Performed By: #### C DARIEN PYLE TROPHS, ERNST, ANEU, GFR, PBNP, CMP #### [address] [address] Creatinine [Mass/Vol] 5.03 mg/dL High 0.60-1.40 [facility] ([place]) Comment on above: Performed By: #### C LASHANDA, ANISHA LEDEZMA, ERNST, ANEU, GFR, PBNP, CMP #### [address] [address] Electrolyte Balance 8.0 mEq/L Normal 4.0-15.0 [facility] ([place]) Comment on above: Performed By: #### C DARIEN PYLE TROPHS, MDW, ANEU, GFR, PBNP, CMP #### [address] [address] Glucose [Mass/Vol] 84 mg/dL Normal 82-115 [facility] ([place]) Comment on above: Performed By: #### C DARIEN PYLE TROPHS, MDW, ANEU, GFR, PBNP, CMP #### [address] [address] Potassium [Moles/Vol] 5.3 mmol/L High 3.5-5.0 [facility] ([place]) Comment on above: Performed By: #### C DARIEN PYLE TROPHS, MDW, ANEU, GFR, PBNP, CMP #### [address] [address] Sodium [Moles/Vol] 135 mmol/L Low 136-145 [facility] ([place]) Comment on above: Performed By: #### C DARIEN PYLE TROPHS, MDW, ANEU, GFR, PBNP, CMP #### [address] [address] Urea nitrogen [Mass/Vol] 36.0 mg/dL High 8.0-22.0 [facility] ([place]) Comment on above: Performed By: #### C DARIEN PYLE TROPHS, MDW, ANEU, GFR, PBNP, CMP #### [address] [address] BUN/Creatinine Ratio 6.4 ratio Low 10.0-22.0 [facility] ([place]) Comment on above: Performed By: #### C DARIEN PYLE TROPHS, MDW, ANEU, GFR, PBNP, CMP #### [address] [address] Calcium [Mass/Vol] 9.2 mg/dL Normal 8.7-10.4 [facility] ([place]) Comment on above: Performed By: #### C LASHANDA, DARIEN, ANISHA, W, ANEU, GFR, PBNP, CMP #### [address] [address] Chloride [Moles/Vol] 102 mmol/L Normal 98-110 [facility] ([place]) Comment on above: Performed By: #### C LASHANDA, DARIEN, ANISHA, W, ANEU, GFR, PBNP, CMP #### [address] [address] CO2 [Moles/Vol] 26 mmol/L Normal 22-32 [facility] ([place]) Comment on above: Performed By: #### C LASHANDA, ANISHA LEDEZMA, W, ANEU, GFR, PBNP, CMP #### [address] [address] Creatinine [Mass/Vol] 4.67 mg/dL High 0.60-1.40 [facility] ([place]) Comment on above: Performed By: #### C LASHANDA, DARIEN, ANISHA, W, ANEU, GFR, PBNP, CMP #### [address] [address] Electrolyte Balance 8.0 mEq/L Normal 4.0-15.0 [facility] ([place]) Comment on above: Performed By: #### C LASHANDA, DARIEN, ANISHA, W, ANEU, GFR, PBNP, CMP #### [address] [address] Glucose [Mass/Vol] 136 mg/dL High 82-115 [facility] ([place]) Comment on above: Performed By: #### C LASHANDA, DARIEN, ANISHA, W, ANEU, GFR, PBNP, CMP #### [address] [address] Potassium [Moles/Vol] 4.9 mmol/L Normal 3.5-5.0 [facility] ([place]) Comment on above: Performed By: #### C LASHANDA, DARIEN, ANISHA, W, ANEU, GFR, PBNP, CMP #### [address] [address] Sodium [Moles/Vol] 136 mmol/L Normal 136-145 [facility] ([place]) Comment on above: Performed By: #### C DARIEN PYLE TROPHS, MDW, ANEU, GFR, PBNP, CMP #### [address] [address] Urea nitrogen [Mass/Vol] 30.0 mg/dL High 8.0-22.0 [facility] ([place]) Comment on above: Performed By: #### C DARIEN PYLE TROPHS, MDW, ANEU, GFR, PBNP, CMP #### [address] [address] CBCon 02-25-2024 Erythrocyte distribution width (RBC) [Ratio] 17.8 % High 11.5-15.5 [facility] ([place]) Comment on above: Performed By: #### C DARIEN PYLE TROPHS, MDW, ANEU, GFR, PBNP, CMP #### [address] [address] Hematocrit (Bld) [Volume fraction] 26.7 % Low 40.0-52.0 [facility] ([place]) Comment on above: Performed By: #### C DARIEN PYLE TROPHS, MDW, ANEU, GFR, PBNP, CMP #### [address] [address] Hgb 8.9 G/dL Low 13.0-17.5 [facility] ([place]) Comment on above: Performed By: #### C DARIEN PYLE TROPHS, MDW, ANEU, GFR, PBNP, CMP #### [address] [address] MCH (RBC) [Entitic mass] 31.0 pg Normal 27.0-33.0 [facility] ([place]) Comment on above: Performed By: #### C DARIEN PYLE TROPHS, ERNST, ANEU, GFR, PBNP, CMP #### [address] [address] MCHC 33.3 G/dL Normal 32.0-36.0 [facility] ([place]) Comment on above: Performed By: #### C DARIEN PYLE TROPHS, MDW, ANEU, GFR, PBNP, CMP #### [address] [address] MCV (RBC) [Entitic vol] 93.1 fL Normal 81.0-100.0 [facility] ([place]) Comment on above: Performed By: #### C DARIEN PYLE TROPHS, MDW, ANEU, GFR, PBNP, CMP #### [address] [address] Platelet 156 10 3/mcL Normal 150-450 [facility] ([place]) Comment on above: Performed By: #### C DARIEN PYLE TROPHS, MDW, ANEU, GFR, PBNP, CMP #### [address] [address] Platelet mean volume (Bld) [Entitic vol] 8.5 fL Normal 6.4-10.5 [facility] ([place]) Comment on above: Performed By: #### C DARIEN PYLE TROPHS, MDW, ANEU, GFR, PBNP, CMP #### [address] [address] RBC 2.86 10 6/mcL Low 4.50-6.00 [facility] ([place]) Comment on above: Performed By: #### C DARIEN PYLE TROPHS, MDW, ANEU, GFR, PBNP, CMP #### [address] [address] WBC 5.4 10 3/mcL Normal 4.5-10.8 [facility] ([place]) Comment on above: Performed By: #### C DARIEN PYLE TROPHS, MDW, ANEU, GFR, PBNP, CMP #### [address] [address] LABORATORYOrdered By: SYSTEM SYSTEM on 02-25-2024 Basophils (Bld) [#/Vol] 0.0 103/mcL Normal 0.0 - 0.3 10^3/mcL AH Workflow SS Basophils/100 WBC (Bld) 0.6 % Normal 0.0 - 2.5 % AH Workflow SS Calcium [Mass/Vol] 8.7 mg/dL Normal 8.7 - 10. 4 mg/dL AH ADM SS Chloride [Moles/Vol] 104 mmol/L Normal 98 - 110 mEq/L AH ADM SS CO2 [Moles/Vol] 23 mmol/L Normal 22 - 32 mEq/L AH ADM SS Creatinine [Mass/Vol] 5.03 mg/dL High 0.60 - 1.40 mg/dL AH ADM SS Electrolyte Balance 8.0 mEq/L Normal 4.0 - 15 .0 mEq/L AH ADM SS Eosinophils (Bld) [#/Vol] 0.1 103/mcL Normal 0.0 - 0.7 10^3/mcL AH Workflow SS Eosinophils/100 WBC (Bld) 2.1 % Normal 0.0 - 6.0 % AH Workflow SS Erythrocyte distribution width (RBC) [Ratio] 17.8 % High 11.5 - 15.5 % AH Workflow SS GFR/1.73 sq M.predicted among blacks MDRD (S/P/Bld) [Vol rate/Area] 13 ml/min/1.73sqm Invalid Interpretation Code AH ADM SS Comment on above: Interpretive Data: GFR Population mean for , Non- Americans Ages 20-29 = 116 mL/min/1.73 sq.m. Ages 30-39 = 107 mL/min/1.73 sq.m. Ages 40-49 = 99 mL/min/1.73 sq.m. Ages 50-59 = 93 mL/min/1.73 sq.m. Ages 60-69 = 85 mL/min/1.73 sq.m. Ages 70+ = 75 mL/min/1.73 sq.m. Chronic Kidney Disease: Less than 60 mL/min/1.73 square meters End Stage Renal Disease: Less than 15 mL/min/1.73 square meters GFR/1.73 sq M.predicted among non-blacks MDRD (S/P/Bld) [Vol rate/Area] 11 ml/min/1.73sqm Invalid Interpretation Code AH ADM SS Comment on above: Interpretive Data: GFR Population mean for , Non- Americans Ages 20-29 = 116 mL/min/1.73 sq.m. Ages 30-39 = 107 mL/min/1.73 sq.m. Ages 40-49 = 99 mL/min/1.73 sq.m. Ages 50-59 = 93 mL/min/1.73 sq.m. Ages 60-69 = 85 mL/min/1.73 sq.m. Ages 70+ = 75 mL/min/1.73 sq.m. Chronic Kidney Disease: Less than 60 mL/min/1.73 square meters End Stage Renal Disease: Less than 15 mL/min/1.73 square meters Glucose [Mass/Vol] 84 mg/dL Normal 82 - 115 mg/dL ADM SS Hematocrit (Bld) [Volume fraction] 26.7 % Low 40.0 - 52.0 % AH Workflow SS Hemoglobin (Bld) [Mass/Vol] 8.9 G/dL Low 13.0 - 17.5 G/dL AH Workflow SS Lymphocytes (Bld) [#/Vol] 0.7 103/mcL Low 0.9 - 4.3 10^3/mcL AH Workflow SS Lymphocytes/100 WBC (Bld) 12.6 % Low 20.0 - 40.0 % AH Workflow SS Magnesium [Mass/Vol] 2.0 mg/dL Normal 1.6 - 2.4 mg/dL AH ADM SS MCH (RBC) [Entitic mass] 31.0 pg Normal 27.0 - 33.0 pg AH Workflow SS MCHC 33.3 G/dL Normal 32.0 - 36.0 G/dL AH Workflow SS MCV (RBC) [Entitic vol] 93.1 fL Normal 81.0 - 100.0 fL AH Workflow SS Monocytes (Bld) [#/Vol] 0.5 103/mcL Normal 0.1 - 1.4 10^3/mcL AH Workflow SS Monocytes/100 WBC (Bld) 10.1 % Normal 2.0 - 13.0 % AH Workflow SS Neutrophils (Bld) [#/Vol] 4.0 103/mcL Normal 2.3 - 8.1 10^3/mcL AH Workflow SS Neutrophils/100 WBC (Bld) 74.6 % Normal 50.0 - 75.0 % AH Workflow SS Platelet mean volume (Bld) [Entitic vol] 8.5 fL Normal 6.4 - 10.5 fL AH Workflow SS Platelets (Bld) [#/Vol] 156 103/mcL Normal 150 - 450 10^3/mcL AH Workflow SS Potassium [Moles/Vol] 5.3 mmol/L High 3.5 - 5.0 mEq/L AH ADM SS RBC (Bld) [#/Vol] 2.86 106/mcL Low 4.50 - 6.0 0 10^6/mcL AH Workflow SS Sodium [Moles/Vol] 135 mmol/L Low 136 - 145 mEq/L AH ADM SS Urea nitrogen [Mass/Vol] 36.0 mg/dL High 8.0 - 22.0 mg/dL AH ADM SS Urea nitrogen/Creatinine [Mass ratio] 7.2 ratio Low 10.0 - 22.0 ratio AH ADM SS WBC (Bld) [#/Vol] 5.4 103/mcL Normal 4.5 - 10.8 10^3/mcL AH Workflow SS LABORATORYOrdered By: Azra viveros on 02-25-2024 Cholesterol [Mass/Vol] 128 mg/dL Normal 50 - 199 mg/dL ADM SS Comment on above: Interpretive Data: C holesterol Reference Interval: Less than 200 Desirable 200-239 Borderline high risk 240 and above High risk Cholesterol in HDL [Mass/Vol] 41 mg/dL Normal 40 - 59 mg/dL ADM SS Cholesterol in LDL [Mass/Vol] 71 mg/dL Normal 0 - 129 mg/dL AH ADM SS Triglyceride [Mass/Vol] 80 mg/dL Normal 3 - 149 mg/dL ADM SS LIPIDon 02-25-2024 Cholesterol [Mass/Vol] 128 mg/dL Normal 50-199 [facility] ([place]) Comment on above: Result Comment: Chol esterol Reference Interval: Less than 200 Desirable 200-239 Borderline high risk 240 and above High risk Performed By: #### C DARIEN PYLE TROPHS, MDW, ANEU, GFR, PBNP, CMP #### [address] [place] [place], [place] [address] Cholesterol in HDL [Mass/Vol] 41 mg/dL Normal 40-59 [facility] ([place]) Comment on above: Performed By: #### C DARIEN PYLE TROPHS, MDW, ANEU, GFR, PBNP, CMP #### [address] [place], [place] [address] Cholesterol in LDL [Mass/Vol] 71 mg/dL Normal 0-129 [facility] ([place] Comment on above: Performed By: #### C DARIEN PYLE TROPHS, MDW, ANEU, GFR, PBNP, CMP #### [address] [address] Triglyceride [Mass/Vol] 80 mg/dL Normal 3-149 [facility] ([place]) Comment on above: Performed By: #### C DARIEN PYLE TROPHS, MDW, ANEU, GFR, PBNP, CMP #### [address] [address] MGon 02-25-2024 Magnesium [Mass/Vol] 2.0 mg/dL Normal 1.6-2.4 [facility] ([place] Comment on above: Performed By: #### C DARIEN PYLE TROPHS, MDW, ANEU, GFR, PBNP, CMP #### [address] [address] Magnesium [Mass/Vol] 2.0 mg/dL Normal 1.6-2.4 [facility] ([place] Comment on above: Performed By: #### C DARIEN PYLE TROPHS, MDW, ANEU, GFR, PBNP, CMP #### [address] [address] .Auto Diffon 02-24-2024 Basophil, Absolute 0.0 10 3/mcL Normal 0.0-0.3 [facility] [place] Comment on above: Performed By: #### C DARIEN PYLE TROPHS, MDW, ANEU, GFR, PBNP, CMP #### [address] [address] Basophils/100 WBC (Bld) 0.5 % Normal 0.0-2.5 [facility] ([place] Comment on above: Performed By: #### C DARIEN PYLE TROPHS, MDW, ANEU, GFR, PBNP, CMP #### [address] [address] Eosinophil, Absolute 0.1 10 3/mcL Normal 0.0-0.7 [facility] ([place] Comment on above: Performed By: #### C LASHANDA, ANISHA LEDEZMA, ERNST, ANEU, GFR, PBNP, CMP #### [address] [address] Eosinophils/100 WBC (Bld) 1.2 % Normal 0.0-6.0 [facility] ([place] Comment on above: Performed By: #### C LASHANDA, ANISHA LEDEZMA MDW, ANEU, GFR, PBNP, CMP #### [address] [address] Lymphocyte, Absolute 1.0 10 3/mcL Normal 0.9-4.3 [facility] ([place] Comment on above: Performed By: #### C DARIEN PYLE TROPHS, MDW, ANEU, GFR, PBNP, CMP #### [address] [address] Lymphocytes/100 WBC (Bld) 11.9 % Low 20.0-40.0 [facility] ([place] Comment on above: Performed By: #### C LASHANDA, ANISHA LEDEZMA, ERNST, ANEU, GFR, PBNP, CMP #### [address] [address] Monocyte, Absolute 0.6 10 3/mcL Normal 0.1-1.4 [facility] [place] Comment on above: Performed By: #### C DARIEN PYLE TROPHS, MDW, ANEU, GFR, PBNP, CMP #### [address] [address] Monocytes/100 WBC (Bld) 8.0 % Normal 2.0-13.0 [facility] ([place] Comment on above: Performed By: #### C DARIEN PYLE TROPHS, MDW, ANEU, GFR, PBNP, CMP #### [address] [address] Neutrophils/100 WBC (Bld) 78.4 % High 50.0-75.0 [facility] ([place] Comment on above: Performed By: #### C DARIEN PYLE TROPHS, MDW, ANEU, GFR, PBNP, CMP #### [address] [address] .GFRon 02-24-2024 GFR 18 ml/min/1.73sqm Normal [facility] ([place] Comment on above: Result Comment: GFR Population mean for , Non- Americans Ages 20-29 = 116 mL/min/1.73 sq.m. Ages 30-39 = 107 mL/min/1.73 sq.m. Ages 40-49 = 99 mL/min/1.73 sq.m. Ages 50-59 = 93 mL/min/1.73 sq.m. Ages 60-69 = 85 mL/min/1.73 sq.m. Ages 70+ = 75 mL/min/1.73 sq.m. Chronic Kidney Disease: Less than 60 mL/min/1.73 square meters End Stage Renal Disease: Less than 15 mL/min/1.73 square meters Performed By: #### C DARIEN PYLE TROPHS, MDW, ANEU, GFR, PBNP, CMP #### [address] [address] GFR Non- 15 ml/min/1.73sqm Normal [facility] ([place] Comment on above: Result Comment: GFR Population mean for , Non- Americans Ages 20-29 = 116 mL/min/1.73 sq.m. Ages 30-39 = 107 mL/min/1.73 sq.m. Ages 40-49 = 99 mL/min/1.73 sq.m. Ages 50-59 = 93 mL/min/1.73 sq.m. Ages 60-69 = 85 mL/min/1.73 sq.m. Ages 70+ = 75 mL/min/1.73 sq.m. Chronic Kidney Disease: Less than 60 mL/min/1.73 square meters End Stage Renal Disease: Less than 15 mL/min/1.73 square meters Performed By: #### C DARIEN PYLE TROPHS, ERNST, ANEU, GFR, PBNP, CMP #### [address] [address] GFR Non- 6 ml/min/1.73sqm Normal [facility] ([place] Comment on above: Result Comment: GFR Population mean for , Non- Americans Ages 20-29 = 116 mL/min/1.73 sq.m. Ages 30-39 = 107 mL/min/1.73 sq.m. Ages 40-49 = 99 mL/min/1.73 sq.m. Ages 50-59 = 93 mL/min/1.73 sq.m. Ages 60-69 = 85 mL/min/1.73 sq.m. Ages 70+ = 75 mL/min/1.73 sq.m. Chronic Kidney Disease: Less than 60 mL/min/1.73 square meters End Stage Renal Disease: Less than 15 mL/min/1.73 square meters Performed By: #### C DARIEN PYLE TROPHS, MDW, ANEU, GFR, PBNP, CMP #### [address] [address] GFR 7 ml/min/1.73sqm Normal [facility] ([place] Comment on above: Result Comment: GFR Population mean for , Non- Americans Ages 20-29 = 116 mL/min/1.73 sq.m. Ages 30-39 = 107 mL/min/1.73 sq.m. Ages 40-49 = 99 mL/min/1.73 sq.m. Ages 50-59 = 93 mL/min/1.73 sq.m. Ages 60-69 = 85 mL/min/1.73 sq.m. Ages 70+ = 75 mL/min/1.73 sq.m. Chronic Kidney Disease: Less than 60 mL/min/1.73 square meters End Stage Renal Disease: Less than 15 mL/min/1.73 square meters Performed By: #### C DARIEN PYLE TROPHS, MDW, ANEU, GFR, PBNP, CMP #### [address] [address] .NEUABSon 02-24-2024 Neutrophil, Absolute 6.3 10 3/mcL Normal 2.3-8.1 [facility] ([place] Comment on above: Performed By: #### C DARIEN PYLE TROPHS, MDW, ANEU, GFR, PBNP, CMP #### [address] [address] A1Con 02-24-2024 HbA1c (Bld) [Mass fraction] 5.4 % Normal 4.0-6.0 [facility] ([place] Comment on above: Performed By: #### C DARIEN PYLE TROPHS, MDW, ANEU, GFR, PBNP, CMP #### [place] [id number] APTTon 02-24-2024 aPTT Coag (Bld) [Time] 41.8 s High 25.0-35.0 [facility] ([place] Comment on above: Result Comment: For Heparin anticoagulation therapy, the recommended therapeutic range is: 54-77 seconds (APTT Correlation with Anti-Xa therapeutic range of 0.3-0.7 units/ml). PLEASE REFERENCE THE PHARMACY PROTOCOL FOR DOSING. Performed By: #### C DARIEN PYLE TROPHS, MDW, ANEU, GFR, PBNP, CMP #### [place] [address] CAIONon 02-24-2024 Calcium Ionized 1.13 mmol/L Normal 1.12-1.32 [facility] ([place] Comment on above: Performed By: #### C DARIEN PYLE TROPHS, MDW, ANEU, GFR, PBNP, CMP #### [place] [address] Calcium Ionized 1.12 mmol/L Normal 1.12-1.32 [facility] ([place] Comment on above: Performed By: #### C DARIEN PYLE TROPHS, MDW, ANEU, GFR, PBNP, CMP #### [place] [address] CBCon 02-24-2024 Erythrocyte distribution width (RBC) [Ratio] 17.4 % High 11.5-15.5 [facility] ([place] Comment on above: Performed By: #### C DARIEN PYLE TROPHS, MDW, ANEU, GFR, PBNP, CMP #### [place] [id number] Hematocrit (Bld) [Volume fraction] 32.5 % Low 40.0-52.0 [facility] ([place] Comment on above: Performed By: #### C DARIEN PYLE TROPHS, MDW, ANEU, GFR, PBNP, CMP #### [address] [address] Hgb 10.7 G/dL Low 13.0-17.5 [facility] ([place] Comment on above: Performed By: #### C DARIEN PYLE TROPHS, MDW, ANEU, GFR, PBNP, CMP #### [address] [address] MCH (RBC) [Entitic mass] 31.0 pg Normal 27.0-33.0 [facility] ([place] Comment on above: Performed By: #### C DARIEN PYLE TROPHS, MDW, ANEU, GFR, PBNP, CMP #### [address] [address] MCHC 32.9 G/dL Normal 32.0-36.0 [facility] ([place] Comment on above: Performed By: #### C DARIEN PYLE TROPHS, MDW, ANEU, GFR, PBNP, CMP #### [address] [address] MCV (RBC) [Entitic vol] 94.0 fL Normal 81.0-100.0 [facility] ([place] Comment on above: Performed By: #### C DARIEN PYLE TROPHS, MDW, ANEU, GFR, PBNP, CMP #### [address] [address] Platelet 162 10 3/mcL Normal 150-450 [facility] ([place] Comment on above: Performed By: #### C DARIEN PYLE TROPHS, MDW, ANEU, GFR, PBNP, CMP #### [address] [address] Platelet mean volume (Bld) [Entitic vol] 9.0 fL Normal 6.4-10.5 [facility] ([place] Comment on above: Performed By: #### C LASHANDA, ANISHA LEDEZMA, ERNST, ANEU, GFR, PBNP, CMP #### [address] [address] RBC 3.45 10 6/mcL Low 4.50-6.00 [facility] ([place] Comment on above: Performed By: #### C LASHANDA, ANISHA LEDEZMA MDW, ANEU, GFR, PBNP, CMP #### [address] [address] WBC 8.0 10 3/mcL Normal 4.5-10.8 [facility] ([place] Comment on above: Performed By: #### C DARIEN PYLE TROPHS, MDW, ANEU, GFR, PBNP, CMP #### [address] [address] CMPon 02-24-2024 Albumin Level 3.8 G/dL Normal 3.2-4.8 [facility]) Comment on above: Performed By: #### C DARIEN PYLE TROPHS, MDW, ANEU, GFR, PBNP, CMP #### [address] [address] Albumin/Globulin [Mass ratio] 1.3 {ratio} Normal 0.9-1.6 [facility] ([place] Comment on above: Performed By: #### C DARIEN PYLE TROPHS, MDW, ANEU, GFR, PBNP, CMP #### [address] [address] ALP [Catalytic activity/Vol] 142 U/L High 38-126 [facility] ([place] Comment on above: Performed By: #### C DARIEN PYLE TROPHS, MDW, ANEU, GFR, PBNP, CMP #### [address] [address] ALT/SGPT <8 Low 12-55 [facility] ([place] Comment on above: Performed By: #### C LASHANDA, ANISHA LEDEZMA MDW, ANEU, GFR, PBNP, CMP #### [address] [address] AST [Catalytic activity/Vol] 28 U/L Normal 8-34 [facility] ([place] Comment on above: Performed By: #### C DARIEN PYLE TROPHS, ERNST, ANEU, GFR, PBNP, CMP #### [address] [address] Bili Total 0.30 mg/dL Normal 0.20-1.20 [facility] ([place] Comment on above: Result Comment: Use of this assay is not recommended for patients undergoing treatment with eltrombopag due to the potential for falsely elevated results. Performed By: #### C DARIEN PYLE TROPHS, MDW, ANEU, GFR, PBNP, CMP #### [place] [address] BUN/Creatinine Ratio 8.4 ratio Low 10.0-22.0 [facility] ([place] Comment on above: Performed By: #### C DARIEN PYLE TROPHS, ERNST, ANEU, GFR, PBNP, CMP #### [address] [address] Calcium [Mass/Vol] 9.5 mg/dL Normal 8.7-10.4 [facility] ([place]) Comment on above: Performed By: #### C DARIEN PYLE TROPHS, ERNST, ANEU, GFR, PBNP, CMP #### [address] [address] Chloride [Moles/Vol] 101 mmol/L Normal 98-110 [facility] ([place] Comment on above: Performed By: #### C DARIEN PYLE TROPHS, ERNST, ANEU, GFR, PBNP, CMP #### [place] [phone] CO2 [Moles/Vol] 25 mmol/L Normal 22-32 [facility] ([place] Comment on above: Performed By: #### C LASHANDA, ANISHA LEDEZMA, ERNST, ANEU, GFR, PBNP, CMP #### [address] [address] Creatinine [Mass/Vol] 8.41 mg/dL High 0.60-1.40 [facility] ([place] Comment on above: Performed By: #### C LASHANDA, ANISHA LEDEZMA MDW, ANEU, GFR, PBNP, CMP #### [address] [address] Electrolyte Balance 12.0 mEq/L Normal 4.0-15.0 [facility] ([place]) Comment on above: Performed By: #### C LASHANDA, ANISHA LEDEZMA, ERNST, ANEU, GFR, PBNP, CMP #### [address] [address] Globulin 3.0 G/dL Normal 1.5-3.8 [facility] ([place] Comment on above: Performed By: #### C LASHANDA, ANISHA LEDEZMA, ERNST, ANEU, GFR, PBNP, CMP #### [address] [address] Glucose [Mass/Vol] 120 mg/dL High 82-115 [facility] ([place] Comment on above: Performed By: #### C DARIEN PYLE TROPHS, MDW, ANEU, GFR, PBNP, CMP #### [address] [address] Potassium [Moles/Vol] 5.3 mmol/L High 3.5-5.0 [facility] ([place] Comment on above: Performed By: #### C DARIEN PYLE TROPHS, MDW, ANEU, GFR, PBNP, CMP #### [address] [address] Sodium [Moles/Vol] 138 mmol/L Normal 136-145 [facility] ([place] Comment on above: Performed By: #### C DARIEN PYLE TROPHS, MDW, ANEU, GFR, PBNP, CMP #### [address] [address] Total Protein 6.8 G/dL Normal 5.7-8.2 [facility] ([place] Comment on above: Result Comment: No te - New Reference Range in effect 20 Performed By: #### C DARIEN PYLE TROPHS, MDW, ANEU, GFR, PBNP, CMP #### [address] [address] Urea nitrogen [Mass/Vol] 71.0 mg/dL High 8.0-22.0 [facility] ([place] Comment on above: Performed By: #### C DARIEN PYLE TROPHS, MDW, ANEU, GFR, PBNP, CMP #### [address] [address] CREon 02-24-2024 Creatinine [Mass/Vol] 3.89 mg/dL High 0.60-1.40 [facility] ([place] Comment on above: Performed By: #### C DARIEN PYLE TROPHS, MDW, ANEU, GFR, PBNP, CMP #### [address] [address] CRPon 02-24-2024 CRP [Mass/Vol] mg/L Normal 0.0-1.0 [facility] ([place] Comment on above: Result Comment: No te - New Reference Range in effect 20 Performed By: #### C DARIEN PYLE TROPHS, ERNST, ANEU, GFR, PBNP, CMP #### [address] [address] ESRon 02-24-2024 Erythrocyte Sed Rate 51 mm/hr High 0-20 [facility] ([place]) Comment on above: Performed By: #### C DARIEN PYLE TROPHS, MDW, ANEU, GFR, PBNP, CMP #### [address] [address] HHon 02-24-2024 Hematocrit (Bld) [Volume fraction] 27.0 % Low 40.0-52.0 [facility] ([place] Comment on above: Performed By: #### H H #### [address] [address] Hgb 9.1 G/dL Low 13.0-17.5 [facility] ([place] Comment on above: Performed By: #### H H #### [place] [address] LABORATORYOrdered By: SYSTEM SYSTEM on 02-24-2024 Calcium [Mass/Vol] 9.2 mg/dL Normal 8.7 - 10. 4 mg/dL AH ADM SS Chloride [Moles/Vol] 102 mmol/L Normal 98 - 110 mEq/L AH ADM SS CO2 [Moles/Vol] 26 mmol/L Normal 22 - 32 mEq/L AH ADM SS Creatinine [Mass/Vol] 4.67 mg/dL High 0.60 - 1.40 mg/dL ADM SS Electrolyte Balance 8.0 mEq/L Normal 4.0 - 15 .0 mEq/L AH ADM SS GFR/1.73 sq M.predicted among blacks MDRD (S/P/Bld) [Vol rate/Area] 15 ml/min/1.73sqm Invalid Interpretation Code ADM SS Comment on above: Interpretive Data: GFR Population mean for , Non- Americans Ages 20-29 = 116 mL/min/1.73 sq.m. Ages 30-39 = 107 mL/min/1.73 sq.m. Ages 40-49 = 99 mL/min/1.73 sq.m. Ages 50-59 = 93 mL/min/1.73 sq.m. Ages 60-69 = 85 mL/min/1.73 sq.m. Ages 70+ = 75 mL/min/1.73 sq.m. Chronic Kidney Disease: Less than 60 mL/min/1.73 square meters End Stage Renal Disease: Less than 15 mL/min/1.73 square meters GFR/1.73 sq M.predicted among non-blacks MDRD (S/P/Bld) [Vol rate/Area] 12 ml/min/1.73sqm Invalid Interpretation Code ADM SS Comment on above: Interpretive Data: GFR Population mean for , Non- Americans Ages 20-29 = 116 mL/min/1.73 sq.m. Ages 30-39 = 107 mL/min/1.73 sq.m. Ages 40-49 = 99 mL/min/1.73 sq.m. Ages 50-59 = 93 mL/min/1.73 sq.m. Ages 60-69 = 85 mL/min/1.73 sq.m. Ages 70+ = 75 mL/min/1.73 sq.m. Chronic Kidney Disease: Less than 60 mL/min/1.73 square meters End Stage Renal Disease: Less than 15 mL/min/1.73 square meters Glucose [Mass/Vol] 136 mg/dL High 82 - 115 mg/dL ADM SS Hematocrit (Bld) [Volume fraction] 27.0 % Low 40.0 - 52.0 % Workflow SS Hemoglobin (Bld) [Mass/Vol] 9.1 G/dL Low 13.0 - 17.5 G/dL Workflow SS Magnesium [Mass/Vol] 2.0 mg/dL Normal 1.6 - 2.4 mg/dL ADM SS Potassium [Moles/Vol] 4.9 mmol/L Normal 3.5 - 5.0 mEq/L ADM SS Sodium [Moles/Vol] 136 mmol/L Normal 136 - 145 mEq/L ADM SS Urea nitrogen [Mass/Vol] 30.0 mg/dL High 8.0 - 22.0 mg/dL ADM SS Urea nitrogen/Creatinine [Mass ratio] 6.4 ratio Low 10.0 - 22.0 ratio ADM SS Creatinine [Mass/Vol] 3.89 mg/dL High 0.60 - 1.40 mg/dL ADM SS GFR/1.73 sq M.predicted among blacks MDRD (S/P/Bld) [Vol rate/Area] 18 ml/min/1.73sqm Invalid Interpretation Code ADM SS Comment on above: Interpretive Data: GFR Population mean for , Non- Americans Ages 20-29 = 116 mL/min/1.73 sq.m. Ages 30-39 = 107 mL/min/1.73 sq.m. Ages 40-49 = 99 mL/min/1.73 sq.m. Ages 50-59 = 93 mL/min/1.73 sq.m. Ages 60-69 = 85 mL/min/1.73 sq.m. Ages 70+ = 75 mL/min/1.73 sq.m. Chronic Kidney Disease: Less than 60 mL/min/1.73 square meters End Stage Renal Disease: Less than 15 mL/min/1.73 square meters GFR/1.73 sq M.predicted among non-blacks MDRD (S/P/Bld) [Vol rate/Area] 15 ml/min/1.73sqm Invalid Interpretation Code ADM Comment on above: Interpretive Data: GFR Population mean for , Non- Americans Ages 20-29 = 116 mL/min/1.73 sq.m. Ages 30-39 = 107 mL/min/1.73 sq.m. Ages 40-49 = 99 mL/min/1.73 sq.m. Ages 50-59 = 93 mL/min/1.73 sq.m. Ages 60-69 = 85 mL/min/1.73 sq.m. Ages 70+ = 75 mL/min/1.73 sq.m. Chronic Kidney Disease: Less than 60 mL/min/1.73 square meters End Stage Renal Disease: Less than 15 mL/min/1.73 square meters Troponin I.cardiac DL <= 0.01 ng/mL [Mass/Vol] 5765 ng/L High 0 - 54 ng/L [facility] Comment on above: Interpretive Data: High Sensitive Troponin I Reference Ranges: Female: 0-34 ng/L Male: 0-54 ng/L Testing performed on [employer] IM analyzer using direct chemiluminescent technology. Troponin I.cardiac DL <= 0.01 ng/mL [Mass/Vol] 2670 ng/L High 0 - 54 ng/L ADM Comment on above: Interpretive Data: High Sensitive Troponin I Reference Ranges: Female: 0-34 ng/L Male: 0-54 ng/L Testing performed on [employer] IM analyzer using direct chemiluminescent technology. Basophils (Bld) [#/Vol] 0.0 103/mcL Normal 0.0 - 0.3 10^3/mcL Workflow SS Basophils/100 WBC (Bld) 0.5 % Normal 0.0 - 2.5 % Workflow SS Eosinophils (Bld) [#/Vol] 0.1 103/mcL Normal 0.0 - 0.7 10^3/mcL Workflow SS Eosinophils/100 WBC (Bld) 1.2 % Normal 0.0 - 6.0 % Workflow SS Erythrocyte distribution width (RBC) [Ratio] 17.4 % High 11.5 - 15.5 % Workflow SS HbA1c (Bld) [Mass fraction] 5.4 % Normal 4.0 - 6.0 % Auto Chem SS Hematocrit (Bld) [Volume fraction] 32.5 % Low 40.0 - 52.0 % AH Workflow SS Hemoglobin (Bld) [Mass/Vol] 10.7 G/dL Low 13.0 - 17.5 G/dL AH Workflow SS Lymphocytes (Bld) [#/Vol] 1.0 103/mcL Normal 0.9 - 4.3 10^3/mcL AH Workflow SS Lymphocytes/100 WBC (Bld) 11.9 % Low 20.0 - 40.0 % AH Workflow SS MCH (RBC) [Entitic mass] 31.0 pg Normal 27.0 - 33.0 pg AH Workflow SS MCHC 32.9 G/dL Normal 32.0 - 36.0 G/dL AH Workflow SS MCV (RBC) [Entitic vol] 94.0 fL Normal 81.0 - 100.0 fL AH Workflow SS Monocytes (Bld) [#/Vol] 0.6 103/mcL Normal 0.1 - 1.4 10^3/mcL AH Workflow SS Monocytes/100 WBC (Bld) 8.0 % Normal 2.0 - 13.0 % AH Workflow SS Neutrophils (Bld) [#/Vol] 6.3 103/mcL Normal 2.3 - 8.1 10^3/mcL AH Workflow SS Neutrophils/100 WBC (Bld) 78.4 % High 50.0 - 75.0 % AH Workflow SS Platelet mean volume (Bld) [Entitic vol] 9.0 fL Normal 6.4 - 10.5 fL AH Workflow SS Platelets (Bld) [#/Vol] 162 103/mcL Normal 150 - 450 10^3/mcL AH Workflow SS RBC (Bld) [#/Vol] 3.45 106/mcL Low 4.50 - 6.0 0 10^6/mcL AH Workflow SS WBC (Bld) [#/Vol] 8.0 103/mcL Normal 4.5 - 10.8 10^3/mcL AH Workflow SS Albumin BCP dye [Mass/Vol] 3.8 G/dL Normal 3.2 - 4.8 G/dL ADM SS Albumin/Globulin [Mass ratio] 1.3 {ratio} Normal 0.9 - 1.6 ratio AH ADM SS ALP [Catalytic activity/Vol] 142 U/L High 38 - 126 U/L ADM SS ALT No additional P-5'-P [Catalytic activity/Vol] U/L 1 Low 12 - 55 U/L AH ADM SS AST [Catalytic activity/Vol] 28 U/L Normal 8 - 34 U/L AH ADM SS Bilirubin [Mass/Vol] 0.30 mg/dL Normal 0.20 - 1.20 mg/dL AH ADM SS Comment on above: Interpretive Data: U se of this assay is not recommended for patients undergoing treatment with eltrombopag due to the potential for falsely elevated results. Calcium [Mass/Vol] 9.5 mg/dL Normal 8.7 - 10. 4 mg/dL AH ADM SS Chloride [Moles/Vol] 101 mmol/L Normal 98 - 110 mEq/L AH ADM SS CO2 [Moles/Vol] 25 mmol/L Normal 22 - 32 mEq/L ADM SS CRP [Mass/Vol] mg/dL Normal 0.0 - 1.0 mg/dL ADM SS Comment on above: Interpretive Data: * *Note - New Reference Range in effect 20 Electrolyte Balance 12.0 mEq/L Normal 4.0 - 15 .0 mEq/L ADM SS Globulin 3.0 G/dL Normal 1.5 - 3.8 G/dL ADM SS Glucose [Mass/Vol] 120 mg/dL High 82 - 115 mg/dL ADM SS Magnesium [Mass/Vol] 2.2 mg/dL Normal 1.6 - 2.4 mg/dL ADM SS Potassium [Moles/Vol] 5.3 mmol/L High 3.5 - 5.0 mEq/L ADM SS Protein [Mass/Vol] 6.8 G/dL Normal 5.7 - 8.2 G/dL ADM SS Comment on above: Interpretive Data: * *Note - New Reference Range in effect 20 Sodium [Moles/Vol] 138 mmol/L Normal 136 - 145 mEq/L ADM SS Troponin I.cardiac DL <= 0.01 ng/mL [Mass/Vol] 1352 ng/L High 0 - 54 ng/L ADM SS Comment on above: Interpretive Data: High Sensitive Troponin I Reference Ranges: Female: 0-34 ng/L Male: 0-54 ng/L Testing performed on [employer] analyzer using direct chemiluminescent technology. TSH Qn 2.630 mIU/mL Normal 0.550 - 4.780 mIU/mL AH ADM SS Comment on above: Interpretive Data: * *Note - New Reference Range in effect 20 Urea nitrogen [Mass/Vol] 71.0 mg/dL High 8.0 - 22.0 mg/dL AH ADM SS Urea nitrogen/Creatinine [Mass ratio] 8.4 ratio Low 10.0 - 22.0 ratio AH ADM SS LABORATORYOrdered By: Mansi Gilliland on 02-24-2024 Calcium Ionized 1.13 mmol/L Normal 1.12 - 1.32 mmol/L AH Main Rapid Comm SS LABORATORYOrdered By: Iveth De Guzman on 02-24-2024 Appearance (U) Clear (02/24/24 10:18 AM) Normal Clear AH Auto Urine SS Bilirubin Ql (U) Negative (02/24/24 10:18 AM) Normal Neg-Trace AH Auto Urine SS Color (U) Yellow (02/24/24 10:18 AM) Normal AH Auto Urine SS Glucose Test strip (U) [Mass/Vol] 100 mg/dL Invalid Interpretation Code Negative AH Auto Urine SS Hemoglobin Auto test strip (U) [Mass/Vol] Trace (02/24/24 10:18 AM) Normal Neg-Trace AH Auto Urine SS Ketones Ql (U) Negative Normal Neg-Trace AH Auto Urine SS UA Leuk Est Negative (02/24/24 10:18 AM) Normal Negative AH Auto Urine SS UA Nitrite Negative (02/24/24 10:18 AM) Normal Negative AH Auto Urine SS UA pH >=8.5 *ABN* (02/24/24 10:18 AM) Invalid Interpretation Code 5.0 - 8.0 AH Auto Urine SS UA Protein 100 mg/dL Invalid Interpretation Code Negative AH Auto Urine SS UA RBC Rare /HPF Normal 0-2 AH Auto Urine SS UA Spec Grav 1.010 (02/24/24 10:18 AM) Normal 1.006-1.029 AH Auto Urine SS UA Specimen Type Clean Catch (02/24/24 10:18 AM) Normal AH Auto Urine SS UA Squam Epithelial Rare /HPF Normal 0-20 AH Au to Urine SS UA Urobilinogen 0.2 E.U./dL Normal 0.2-1.0 AH Auto Urine SS WBC LM.HPF (Urine sed) [#/Area] Rare /HPF Normal 0-5 AH Auto Urine SS LABORATORYOrdered By: Rikki Anders on 02-24-2024 ESR 15 minute reading (Bld) [Velocity] 51 mm/hr High 0 - 20 mm/hr Auto Heme SS LABORATORYOrdered By: Nancy Yates on 02-24-2024 aPTT Coag (Bld) [Time] 41.8 s High 25.0 - 35.0 seconds [facility] SS Comment on above: Interpretive Data: F or Heparin anticoagulation therapy, the recommended therapeutic range is: 54-77 seconds (APTT Correlation with Anti-Xa therapeutic range of 0.3-0.7 units/ml). PLEASE REFERENCE THE PHARMACY PROTOCOL FOR DOSING. PT Coag (PPP) [Time] 11.3 s Normal 9.0 - 14.4 seconds [facility] SS Comment on above: Interpretive Data: E ffective 02/24/08, Protime results may be affected by some antibiotics (i.e. Ciprofloxacin, Azithromycin, Bactrim) which may potentiate the action of oral anticoagulants, with further increases in Protime/INR. PT International Ratio 1.0 ratio Invalid Interpretation Code [facility] SS Comment on above: Interpretive Data: Susanna padilla [employer] (CHEST, 1992, [id number]) recommended therapeutic range for oral anticoagulant therapy is: LOW RISK: Prophylaxis of venous thrombosis INR: 2.0-3.0 Treatment of pulmonary embolism 2.0-3.0 Prevention of systemic embolism 2.0-3.0 HIGH RISK: Mechanical prosthetic valves 2.5-3.5 LABORATORYOrdered By: Bisi Faulkner on 02-24-2024 Calcium Ionized 1.12 mmol/L Normal 1.12 - 1.32 mmol/L [facility] Rapid Comm SS MGon 02-24-2024 Magnesium [Mass/Vol] 2.2 mg/dL Normal 1.6-2.4 [facility] ([place]) Comment on above: Performed By: #### C LASHANDA, DARIEN, ANISHA, W, ANEU, GFR, PBNP, CMP #### Marc [address] [address] PROon 02-24-2024 INR Coag (PPP) [Relative time] 1.0 {INR} Normal [facility] ([place]) Comment on above: Result Comment: The [employer] (CHEST, 1991, 102:[id number]) recommended therapeutic range for oral anticoagulant therapy is: LOW RISK: Prophylaxis of venous thrombosis INR: 2.0-3.0 Treatment of pulmonary embolism 2.0-3.0 Prevention of systemic embolism 2.0-3.0 HIGH RISK: Mechanical prosthetic valves 2.5-3.5 Performed By: #### C DARIEN PYLE TROPHS, MDW, ANEU, GFR, PBNP, CMP #### [address] [address] PT Coag (PPP) [Time] 11.3 s Normal 9.0-14.4 [facility] ([place]) Comment on above: Result Comment: Effe ctive 02/24/08, Protime results may be affected by some antibiotics (i.e. Ciprofloxacin, Azithromycin, Bactrim) which may potentiate the action of oral anticoagulants, with further increases in Protime/INR. Performed By: #### C DARIEN PYLE TROPHS, MDW, ANEU, GFR, PBNP, CMP #### [address] [address] [facility] 02-24-2024 High Sensitivity Troponin I 5765 ng/L High 0-54 [facility] ([place] Comment on above: Result Comment: High Sensitive Troponin I Reference Ranges: Female: 0-34 ng/L Male: 0-54 ng/L Testing performed on [employer] IM analyzer using direct chemiluminescent technology. Performed By: #### C DARIEN PYLE TROPHS, MDW, ANEU, GFR, PBNP, CMP #### [address] [address] High Sensitivity Troponin I 2670 ng/L High 0-54 [facility] ([place] Comment on above: Result Comment: High Sensitive Troponin I Reference Ranges: Female: 0-34 ng/L Male: 0-54 ng/L Testing performed on [employer] IM analyzer using direct chemiluminescent technology. Performed By: #### C DARIEN PYLE TROPHS, MDW, ANEU, GFR, PBNP, CMP #### [address] [address] High Sensitivity Troponin I 1352 ng/L High 0-54 [facility] ([place] Comment on above: Result Comment: High Sensitive Troponin I Reference Ranges: Female: 0-34 ng/L Male: 0-54 ng/L Testing performed on [employer] analyzer using direct chemiluminescent technology. Performed By: #### C DARIEN PYLE TROPHS, MDW, ANEU, GFR, PBNP, CMP #### [address] [address] TSHon 02-24-2024 TSH 2.630 mIU/mL Normal 0.550-4.780 [facility] ([place] Comment on above: Result Comment: No te - New Reference Range in effect 20 Performed By: #### C DARIEN PYLE TROPHS, MDW, ANEU, GFR, PBNP, CMP #### [address] [address] UAon 02-24-2024 Color (U) Yellow Normal [facility] ([place] Comment on above: Performed By: #### C DARIEN PYLE TROPHS, MDW, ANEU, GFR, PBNP, CMP #### [address] [address] Glucose (U) [Mass/Vol] 100 mg/dL Abnormal Negative [facility] ([place] Comment on above: Performed By: #### C DARIEN PYLE TROPHS, MDW, ANEU, GFR, PBNP, CMP #### [address] [address] Ketones Ql (U) Negative Normal Neg-Trace [facility] ([place] Comment on above: Performed By: #### C DARIEN PYLE TROPHS, MDW, ANEU, GFR, PBNP, CMP #### [address] [address] UA Appear Clear Normal Clear [facility] ([place] Comment on above: Performed By: #### C DARIEN PYLE TROPHS, MDW, ANEU, GFR, PBNP, CMP #### [address] [address] UA Blood Trace Normal Neg-Trace [facility] ([place] Comment on above: Performed By: #### C DARIEN PYLE TROPHS, MDW, ANEU, GFR, PBNP, CMP #### [address] [address] UA Leuk Est Negative Normal Negative [facility] ([place] Comment on above: Performed By: #### C DARIEN PYLE TROPHS, MDW, ANEU, GFR, PBNP, CMP #### [address] [address] UA Nitrite Negative Normal Negative [facility] ([place] Comment on above: Performed By: #### C DARIEN PYLE TROPHS, MDW, ANEU, GFR, PBNP, CMP #### [address] [address] UA pH >=8.5 Abnormal 5.0 - 8.0 [facility] ([place] Comment on above: Performed By: #### C DARIEN PYLE TROPHS, MDW, ANEU, GFR, PBNP, CMP #### [address] [address] UA Protein 100 mg/dL Abnormal Negative [facility] ([place] Comment on above: Performed By: #### C DARIEN PYLE TROPHS, MDW, ANEU, GFR, PBNP, CMP #### [address] [address] UA Spec Grav 1.010 Normal 1.006-1.029 [facility] ([place] Comment on above: Performed By: #### C DARIEN PYLE TROPHS, MDW, ANEU, GFR, PBNP, CMP #### [address] [address] UA Specimen Type Clean Catch Normal [facility] ([place] Comment on above: Performed By: #### C DARIEN PYLE TROPHS, MDW, ANEU, GFR, PBNP, CMP #### [address] [address] UA Urobilinogen 0.2 E.U./dL Normal 0.2-1.0 [facility] ([place] Comment on above: Performed By: #### C DARIEN PYLE TROPHS, MDW, ANEU, GFR, PBNP, CMP #### [address] [address] Urobilinogen (U) [Mass/Vol] Negative Normal Neg-Trace [facility] ([place] Comment on above: Performed By: #### C DARIEN PYLE TROPHS, MDW, ANEU, GFR, PBNP, CMP #### [address] [address] UAMICon 02-24-2024 UA RBC Rare Normal 0-2 [facility] ([place] Comment on above: Performed By: #### C DARIEN PYLE TROPHS, MDW, ANEU, GFR, PBNP, CMP #### [address] [address] UA Squam Epithelial Rare Normal 0-20 [facility] ([place]) Comment on above: Performed By: #### C DARIEN PYLE TROPHS, MDW, ANEU, GFR, PBNP, CMP #### [address] [address] UA WBC Rare Normal 0-5 [facility]) Comment on above: Performed By: #### C DARIEN PYLE TROPHS, MDW, ANEU, GFR, PBNP, CMP #### [address] [address] XR CHEST 1 VIEWon 02-24-2024 XR CHEST 1 VIEW ORIGINAL EXAMINATION: ONE XRAY VIEW OF THE CHEST 02/24/2024 7:32 am COMPARISON: None. HISTORY: ORDERING SYSTEM PROVIDED HISTORY: Reason for Exam: Chest Pain FINDINGS: Heart is mildly prominent however at the upper limits of normal in size. Atherosclerotic calcification of the aorta is noted. Possible small left effusion. No definite right effusion. No pneumothorax. Mild hazy airspace disease is present at the left lung base. IMPRESSION: Suspected tiny left effusion with adjacent hazy airspace disease. Interpreted by: Alcides Morales MD Preliminary Report By: Alcides Morales MD Electronically signed By Alcides Morales MD Dictated Date: 02/24/2024 8:25:27 AM Prelim Date: 02/24/2024 8:27:13 AM Sign Date: 02/24/2024 8:27:13 AM Ordering Provider: OMARI Otoole [facility] ([place]) US Thyroid glandon [facility] Radiology Study observation (narrative) [facility] .Auto Diffon 11-19-2023 Basophil, Absolute 0.0 10 3/mcL Normal 0.0-0.3 [facility] [place] Comment on above: Performed By: #### C LASHANDA, ANISHA LEDEZMA, ERNST, ANEU, GFR, PBNP, CMP #### [address] [address] Basophils/100 WBC (Bld) 0.5 % Normal 0.0-2.5 [facility] ([place] Comment on above: Performed By: #### C DARIEN PYLE TROPHS, MDW, ANEU, GFR, PBNP, CMP #### [address] [address] Eosinophil, Absolute 0.1 10 3/mcL Normal 0.0-0.7 [facility] ([place] Comment on above: Performed By: #### C DARIEN PYLE TROPHS, MDW, ANEU, GFR, PBNP, CMP #### [address] [address] Eosinophils/100 WBC (Bld) 0.8 % Normal 0.0-6.0 [facility] ([place] Comment on above: Performed By: #### C DARIEN PYLE TROPHS, MDW, ANEU, GFR, PBNP, CMP #### [address] [address] Lymphocyte, Absolute 0.9 10 3/mcL Normal 0.9-4.3 [facility] ([place] Comment on above: Performed By: #### C DARIEN PYLE TROPHS, MDW, ANEU, GFR, PBNP, CMP #### [address] [address] Lymphocytes/100 WBC (Bld) 10.4 % Low 20.0-40.0 [facility] ([place] Comment on above: Performed By: #### C DARIEN PYLE TROPHS, MDW, ANEU, GFR, PBNP, CMP #### [address] [address] Monocyte, Absolute 1.0 10 3/mcL Normal 0.1-1.4 [facility] [place] Comment on above: Performed By: #### C DARIEN PYLE TROPHS, MDW, ANEU, GFR, PBNP, CMP #### [address] [address] Monocytes/100 WBC (Bld) 10.5 % Normal 2.0-13.0 [facility] ([place] Comment on above: Performed By: #### C DARIEN PYLE TROPHS, MDW, ANEU, GFR, PBNP, CMP #### [address] [address] Neutrophils/100 WBC (Bld) 77.8 % High 50.0-75.0 [facility] ([place] Comment on above: Performed By: #### C DARIEN PYLE TROPHS, MDW, ANEU, GFR, PBNP, CMP #### [address] [address] .GFRon 11-19-2023 GFR 12 ml/min/1.73sqm Normal [facility] ([place] Comment on above: Result Comment: GFR Population mean for , Non- Americans Ages 20-29 = 116 mL/min/1.73 sq.m. Ages 30-39 = 107 mL/min/1.73 sq.m. Ages 40-49 = 99 mL/min/1.73 sq.m. Ages 50-59 = 93 mL/min/1.73 sq.m. Ages 60-69 = 85 mL/min/1.73 sq.m. Ages 70+ = 75 mL/min/1.73 sq.m. Chronic Kidney Disease: Less than 60 mL/min/1.73 square meters End Stage Renal Disease: Less than 15 mL/min/1.73 square meters Performed By: #### C DARIEN PYLE TROPHS, MDW, ANEU, GFR, PBNP, CMP #### [address] [address] GFR Non- 10 ml/min/1.73sqm Normal [facility] ([place] Comment on above: Result Comment: GFR Population mean for , Non- Americans Ages 20-29 = 116 mL/min/1.73 sq.m. Ages 30-39 = 107 mL/min/1.73 sq.m. Ages 40-49 = 99 mL/min/1.73 sq.m. Ages 50-59 = 93 mL/min/1.73 sq.m. Ages 60-69 = 85 mL/min/1.73 sq.m. Ages 70+ = 75 mL/min/1.73 sq.m. Chronic Kidney Disease: Less than 60 mL/min/1.73 square meters End Stage Renal Disease: Less than 15 mL/min/1.73 square meters Performed By: #### C DARIEN PYEL TROPHS, MDW, ANEU, GFR, PBNP, CMP #### [address] [address] .NEUABSon 11-19-2023 Neutrophil, Absolute 7.0 10 3/mcL Normal 2.3-8.1 [facility] ([place] Comment on above: Performed By: #### C DARIEN PYLE TROPHS, MDW, ANEU, GFR, PBNP, CMP #### [address] [address] APTTon 11-19-2023 aPTT Coag (Bld) [Time] 28.5 s Normal 25.0-35.0 [facility] ([place] Comment on above: Result Comment: For Heparin anticoagulation therapy, the recommended therapeutic range is: 54-77 seconds (APTT Correlation with Anti-Xa therapeutic range of 0.3-0.7 units/ml). PLEASE REFERENCE THE PHARMACY PROTOCOL FOR DOSING. Performed By: #### C DARIEN PYLE TROPHS, MDW, ANEU, GFR, PBNP, CMP #### [address] [address] Heparin dose (APTT) Unknown Normal [facility] ([place]) Comment on above: Performed By: #### C DARIEN PYLE TROPHS, MDW, ANEU, GFR, PBNP, CMP #### [address] [address] BMPon 11-19-2023 BUN/Creatinine Ratio 7.2 ratio Low 10.0-22.0 [facility] ([place] Comment on above: Performed By: #### C DARIEN PYLE TROPHS, MDW, ANEU, GFR, PBNP, CMP #### [address] [address] Calcium [Mass/Vol] 9.0 mg/dL Normal 8.7-10.4 [facility] ([place]) Comment on above: Performed By: #### C DARIEN PYLE TROPHS, MDW, ANEU, GFR, PBNP, CMP #### [address] [address] Chloride [Moles/Vol] 98 mmol/L Normal 98-110 [facility] ([place] Comment on above: Performed By: #### C DARIEN PYLE TROPHS, MDW, ANEU, GFR, PBNP, CMP #### [address] [address] CO2 [Moles/Vol] 25 mmol/L Normal 22-32 [facility] ([place] Comment on above: Performed By: #### C DARIEN PYLE TROPHS, MDW, ANEU, GFR, PBNP, CMP #### [address] [address] Creatinine [Mass/Vol] 5.70 mg/dL High 0.60-1.40 [facility] ([place] Comment on above: Performed By: #### C DARIEN PYLE TROPHS, MDW, ANEU, GFR, PBNP, CMP #### [address] [address] Electrolyte Balance 9.0 mEq/L Normal 4.0-15.0 [facility] ([place] Comment on above: Performed By: #### C DARIEN PYLE TROPHS, MDW, ANEU, GFR, PBNP, CMP #### [address] [address] Glucose [Mass/Vol] 86 mg/dL Normal 82-115 [facility] ([place]) Comment on above: Performed By: #### C DARIEN PYLE TROPHS, MDW, ANEU, GFR, PBNP, CMP #### [address] [address] Potassium [Moles/Vol] 4.4 mmol/L Normal 3.5-5.0 [facility] ([place] Comment on above: Performed By: #### C DARIEN PYLE TROPHS, MDW, ANEU, GFR, PBNP, CMP #### [address] [address] Sodium [Moles/Vol] 132 mmol/L Low 136-145 [facility] ([place]) Comment on above: Performed By: #### C DARIEN PYLE TROPHS, MDW, ANEU, GFR, PBNP, CMP #### [address] [address] Urea nitrogen [Mass/Vol] 41.0 mg/dL High 8.0-22.0 [facility] ([place] Comment on above: Performed By: #### C DARIEN PYLE TROPHS, MDW, ANEU, GFR, PBNP, CMP #### [address] [address] CBCon 11-19-2023 Erythrocyte distribution width (RBC) [Ratio] 17.4 % High 11.5-15.5 [facility] ([place] Comment on above: Performed By: #### C DARIEN PYLE TROPHS, MDW, ANEU, GFR, PBNP, CMP #### [address] [address] Hematocrit (Bld) [Volume fraction] 27.9 % Low 40.0-52.0 [facility] ([place] Comment on above: Performed By: #### C DARIEN PYLE TROPHS, MDW, ANEU, GFR, PBNP, CMP #### [address] [address] Hgb 9.4 G/dL Low 13.0-17.5 [facility] ([place] Comment on above: Performed By: #### C DARIEN PYLE TROPHS, MDW, ANEU, GFR, PBNP, CMP #### [address] [address] MCH (RBC) [Entitic mass] 30.7 pg Normal 27.0-33.0 [facility] ([place] Comment on above: Performed By: #### C DARIEN PYLE TROPHS, MDW, ANEU, GFR, PBNP, CMP #### [address] [address] MCHC 33.8 G/dL Normal 32.0-36.0 [facility] ([place] Comment on above: Performed By: #### C DARIEN PYLE TROPHS, MDW, ANEU, GFR, PBNP, CMP #### [address] [address] MCV (RBC) [Entitic vol] 91.0 fL Normal 81.0-100.0 [facility] ([place] Comment on above: Performed By: #### C DARIEN PYLE TROPHS, MDW, ANEU, GFR, PBNP, CMP #### [address] [address] Platelet 238 10 3/mcL Normal 150-450 [facility] ([place] Comment on above: Performed By: #### C DARIEN PYLE TROPHS, MDW, ANEU, GFR, PBNP, CMP #### [address] [address] Platelet mean volume (Bld) [Entitic vol] 8.0 fL Normal 6.4-10.5 [facility] ([place] Comment on above: Performed By: #### C DARIEN PYLE TROPHS, MDW, ANEU, GFR, PBNP, CMP #### [address] [address] RBC 3.07 10 6/mcL Low 4.50-6.00 [facility] ([place] Comment on above: Performed By: #### C DARIEN PYLE TROPHS, MDW, ANEU, GFR, PBNP, CMP #### [address] [address] WBC 9.0 10 3/mcL Normal 4.5-10.8 [facility] ([place] Comment on above: Performed By: #### C LASHANDA, ANISHA LEDEZMA MDW, ANEU, GFR, PBNP, CMP #### [address] [address] HFPon 11-19-2023 Bili Indirect 0.2 mg/dL Normal 0.1-10.0 [facility] ([place] Comment on above: Performed By: #### C DARIEN PYLE TROPHS, MDW, ANEU, GFR, PBNP, CMP #### [address] [address] Albumin Level 2.5 G/dL Low 3.2-4.8 [facility] ([place] Comment on above: Performed By: #### C DARIEN PYLE TROPHS, MDW, ANEU, GFR, PBNP, CMP #### [address] [address] Albumin/Globulin [Mass ratio] 0.7 {ratio} Low 0.9-1.6 [facility] ([place] Comment on above: Performed By: #### C DARIEN PYLE TROPHS, MDW, ANEU, GFR, PBNP, CMP #### [address] [address] ALP [Catalytic activity/Vol] 123 U/L Normal 38-126 [facility] ([place] Comment on above: Performed By: #### C DARIEN PYLE TROPHS, MDW, ANEU, GFR, PBNP, CMP #### [address] [address] ALT/SGPT <7 Low 12-55 [facility] ([place] Comment on above: Performed By: #### C DARIEN PYLE TROPHS, MDW, ANEU, GFR, PBNP, CMP #### [address] [address] AST [Catalytic activity/Vol] 11 U/L Normal 8-34 [facility] ([place] Comment on above: Performed By: #### C DARIEN PYLE TROPHS, MDW, ANEU, GFR, PBNP, CMP #### [address] [address] Bili Direct 0.1 mg/dL Normal 0.0-0.4 [facility] ([place] Comment on above: Result Comment: Use of this assay is not recommended for patients undergoing treatment with eltrombopag due to the potential for falsely elevated results. Performed By: #### C DARIEN PYLE TROPHS, MDW, ANEU, GFR, PBNP, CMP #### [place] [address] Bili Total 0.30 mg/dL Normal 0.20-1.20 [facility] ([place] Comment on above: Result Comment: Use of this assay is not recommended for patients undergoing treatment with eltrombopag due to the potential for falsely elevated results. Performed By: #### C DARIEN PYLE TROPHS, MDW, ANEU, GFR, PBNP, CMP #### [address] [address] Globulin 3.4 G/dL Normal 1.5-3.8 [facility] ([place] Comment on above: Performed By: #### C DARIEN PYLE TROPHS, MDW, ANEU, GFR, PBNP, CMP #### [address] [address] Total Protein 5.9 G/dL Normal 5.7-8.2 [facility] ([place] Comment on above: Result Comment: No te - New Reference Range in effect 20 Performed By: #### C DARIEN PYLE TROPHS, MDW, ANEU, GFR, PBNP, CMP #### [address] [address] LABORATORYOrdered By: SYSTEM SYSTEM on 11-19-2023 Albumin BCP dye [Mass/Vol] 2.5 G/dL Low 3.2 - 4.8 G/dL ADM SS Albumin/Globulin [Mass ratio] 0.7 {ratio} Low 0.9 - 1.6 ratio ADM SS ALP [Catalytic activity/Vol] 123 U/L Normal 38 - 126 U/L ADM SS ALT No additional P-5'-P [Catalytic activity/Vol] U/L 1 Low 12 - 55 U/L ADM SS AST [Catalytic activity/Vol] 11 U/L Normal 8 - 34 U/L ADM SS Basophils (Bld) [#/Vol] 0.0 103/mcL Normal 0.0 - 0.3 10^3/mcL Workflow SS Basophils/100 WBC (Bld) 0.5 % Normal 0.0 - 2.5 % Workflow SS Bili Indirect 0.2 mg/dL Normal 0.1 - 10.0 mg/dL Chemistry S Bilirubin [Mass/Vol] 0.30 mg/dL Normal 0.20 - 1.20 mg/dL ADM SS Comment on above: Interpretive Data: U se of this assay is not recommended for patients undergoing treatment with eltrombopag due to the potential for falsely elevated results. Bilirubin.conjugate d [Mass/Vol] 0.1 mg/dL Normal 0.0 - 0.4 mg/dL ADM SS Comment on above: Interpretive Data: U se of this assay is not recommended for patients undergoing treatment with eltrombopag due to the potential for falsely elevated results. Calcium [Mass/Vol] 9.0 mg/dL Normal 8.7 - 10. 4 mg/dL ADM SS Chloride [Moles/Vol] 98 mmol/L Normal 98 - 110 mEq/L ADM SS CO2 [Moles/Vol] 25 mmol/L Normal 22 - 32 mEq/L ADM SS Creatinine [Mass/Vol] 5.70 mg/dL High 0.60 - 1.40 mg/dL ADM SS Electrolyte Balance 9.0 mEq/L Normal 4.0 - 15 .0 mEq/L ADM SS Eosinophils (Bld) [#/Vol] 0.1 103/mcL Normal 0.0 - 0.7 10^3/mcL Workflow SS Eosinophils/100 WBC (Bld) 0.8 % Normal 0.0 - 6.0 % Workflow SS Erythrocyte distribution width (RBC) [Ratio] 17.4 % High 11.5 - 15.5 % Workflow SS GFR/1.73 sq M.predicted among blacks MDRD (S/P/Bld) [Vol rate/Area] 12 ml/min/1.73sqm Invalid Interpretation Code [facility] Comment on above: Interpretive Data: GFR Population mean for , Non- Americans Ages 20-29 = 116 mL/min/1.73 sq.m. Ages 30-39 = 107 mL/min/1.73 sq.m. Ages 40-49 = 99 mL/min/1.73 sq.m. Ages 50-59 = 93 mL/min/1.73 sq.m. Ages 60-69 = 85 mL/min/1.73 sq.m. Ages 70+ = 75 mL/min/1.73 sq.m. Chronic Kidney Disease: Less than 60 mL/min/1.73 square meters End Stage Renal Disease: Less than 15 mL/min/1.73 square meters GFR/1.73 sq M.predicted among non-blacks MDRD (S/P/Bld) [Vol rate/Area] 10 ml/min/1.73sqm Invalid Interpretation Code [facility] Comment on above: Interpretive Data: GFR Population mean for , Non- Americans Ages 20-29 = 116 mL/min/1.73 sq.m. Ages 30-39 = 107 mL/min/1.73 sq.m. Ages 40-49 = 99 mL/min/1.73 sq.m. Ages 50-59 = 93 mL/min/1.73 sq.m. Ages 60-69 = 85 mL/min/1.73 sq.m. Ages 70+ = 75 mL/min/1.73 sq.m. Chronic Kidney Disease: Less than 60 mL/min/1.73 square meters End Stage Renal Disease: Less than 15 mL/min/1.73 square meters Globulin 3.4 G/dL Normal 1.5 - 3.8 G/dL ADM Glucose [Mass/Vol] 86 mg/dL Normal 82 - 115 mg/dL ADM Hematocrit (Bld) [Volume fraction] 27.9 % Low 40.0 - 52.0 % Workflow Hemoglobin (Bld) [Mass/Vol] 9.4 G/dL Low 13.0 - 17.5 G/dL AH Workflow SS Lymphocytes (Bld) [#/Vol] 0.9 103/mcL Normal 0.9 - 4.3 10^3/mcL AH Workflow SS Lymphocytes/100 WBC (Bld) 10.4 % Low 20.0 - 40.0 % AH Workflow SS Magnesium [Mass/Vol] 2.1 mg/dL Normal 1.6 - 2.4 mg/dL AH ADM SS MCH (RBC) [Entitic mass] 30.7 pg Normal 27.0 - 33.0 pg AH Workflow SS MCHC 33.8 G/dL Normal 32.0 - 36.0 G/dL AH Workflow SS MCV (RBC) [Entitic vol] 91.0 fL Normal 81.0 - 100.0 fL AH Workflow SS Monocytes (Bld) [#/Vol] 1.0 103/mcL Normal 0.1 - 1.4 10^3/mcL AH Workflow SS Monocytes/100 WBC (Bld) 10.5 % Normal 2.0 - 13.0 % AH Workflow SS Neutrophils (Bld) [#/Vol] 7.0 103/mcL Normal 2.3 - 8.1 10^3/mcL AH Workflow SS Neutrophils/100 WBC (Bld) 77.8 % High 50.0 - 75.0 % AH Workflow SS Platelet mean volume (Bld) [Entitic vol] 8.0 fL Normal 6.4 - 10.5 fL AH Workflow SS Platelets (Bld) [#/Vol] 238 103/mcL Normal 150 - 450 10^3/mcL AH Workflow SS Potassium [Moles/Vol] 4.4 mmol/L Normal 3.5 - 5.0 mEq/L AH ADM SS Protein [Mass/Vol] 5.9 G/dL Normal 5.7 - 8.2 G/dL AH ADM SS Comment on above: Interpretive Data: * *Note - New Reference Range in effect 20 RBC (Bld) [#/Vol] 3.07 106/mcL Low 4.50 - 6.0 0 10^6/mcL AH Workflow SS Sodium [Moles/Vol] 132 mmol/L Low 136 - 145 mEq/L AH ADM SS Urea nitrogen [Mass/Vol] 41.0 mg/dL High 8.0 - 22.0 mg/dL AH ADM SS Urea nitrogen/Creatinine [Mass ratio] 7.2 ratio Low 10.0 - 22.0 ratio AH ADM SS WBC (Bld) [#/Vol] 9.0 103/mcL Normal 4.5 - 10.8 10^3/mcL AH Workflow SS LABORATORYOrdered By: Alberta Soto on 11-19-2023 aPTT Coag (Bld) [Time] 28.5 s Normal 25.0 - 35.0 seconds [facility] SS Comment on above: Interpretive Data: F or Heparin anticoagulation therapy, the recommended therapeutic range is: 54-77 seconds (APTT Correlation with Anti-Xa therapeutic range of 0.3-0.7 units/ml). PLEASE REFERENCE THE PHARMACY PROTOCOL FOR DOSING. Heparin dose (APTT) Unknown (11/19/23 4:46 AM) Normal Coagulation S MGon 11-19-2023 Magnesium [Mass/Vol] 2.1 mg/dL Normal 1.6-2.4 [facility] ([place] Comment on above: Performed By: #### C DARIEN PYLE TROPHS, MDW, ANEU, GFR, PBNP, CMP #### [address] [address] .GFRon 11-18-2023 GFR 7 ml/min/1.73sqm Normal [facility] ([place] Comment on above: Result Comment: GFR Population mean for , Non- Americans Ages 20-29 = 116 mL/min/1.73 sq.m. Ages 30-39 = 107 mL/min/1.73 sq.m. Ages 40-49 = 99 mL/min/1.73 sq.m. Ages 50-59 = 93 mL/min/1.73 sq.m. Ages 60-69 = 85 mL/min/1.73 sq.m. Ages 70+ = 75 mL/min/1.73 sq.m. Chronic Kidney Disease: Less than 60 mL/min/1.73 square meters End Stage Renal Disease: Less than 15 mL/min/1.73 square meters Performed By: #### C DARIEN PYLE TROPHS, MDW, ANEU, GFR, PBNP, CMP #### [address] [address] GFR Non- 6 ml/min/1.73sqm Normal [facility] ([place] Comment on above: Result Comment: GFR Population mean for , Non- Americans Ages 20-29 = 116 mL/min/1.73 sq.m. Ages 30-39 = 107 mL/min/1.73 sq.m. Ages 40-49 = 99 mL/min/1.73 sq.m. Ages 50-59 = 93 mL/min/1.73 sq.m. Ages 60-69 = 85 mL/min/1.73 sq.m. Ages 70+ = 75 mL/min/1.73 sq.m. Chronic Kidney Disease: Less than 60 mL/min/1.73 square meters End Stage Renal Disease: Less than 15 mL/min/1.73 square meters Performed By: #### C DARIEN PYLE TROPHS, MDW, ANEU, GFR, PBNP, CMP #### [address] [address] APTTon 11-18-2023 aPTT Coag (Bld) [Time] 54.8 s High 25.0-35.0 [facility] ([place]) Comment on above: Result Comment: For Heparin anticoagulation therapy, the recommended therapeutic range is: 54-77 seconds (APTT Correlation with Anti-Xa therapeutic range of 0.3-0.7 units/ml). PLEASE REFERENCE THE PHARMACY PROTOCOL FOR DOSING. Performed By: #### C DARIEN PYLE TROPHS, MDW, ANEU, GFR, PBNP, CMP #### [address] [address] Heparin dose (APTT) Unknown Normal [facility] ([place]) Comment on above: Performed By: #### C DARIEN PYLE TROPHS, MDW, ANEU, GFR, PBNP, CMP #### [address] [address] HBSAGon 11-18-2023 Hep B Surf Ag Non-Reactive Normal Non-Reactive [facility] ([place]) Comment on above: Performed By: #### H BSAG #### [place] [address] LABORATORYOrdered By: SYSTEM SYSTEM on 11-18-2023 HBV surface Ag IA Ql Non-Reactive (11/18/23 9:02 AM) Normal Non-Reactive AH ADM SS Albumin BCP dye [Mass/Vol] 2.6 G/dL Low 3.2 - 4.8 G/dL AH ADM SS Calcium [Mass/Vol] 8.8 mg/dL Normal 8.7 - 10. 4 mg/dL AH ADM SS Chloride [Moles/Vol] 92 mmol/L Low 98 - 110 mEq/L AH ADM SS CO2 [Moles/Vol] 28 mmol/L Normal 22 - 32 mEq/L AH ADM SS Creatinine [Mass/Vol] 8.64 mg/dL High 0.60 - 1.40 mg/dL AH ADM SS Electrolyte Balance 13.0 mEq/L Normal 4.0 - 15 .0 mEq/L AH ADM SS GFR/1.73 sq M.predicted among blacks MDRD (S/P/Bld) [Vol rate/Area] 7 ml/min/1.73sqm Invalid Interpretation Code ADM SS Comment on above: Interpretive Data: GFR Population mean for , Non- Americans Ages 20-29 = 116 mL/min/1.73 sq.m. Ages 30-39 = 107 mL/min/1.73 sq.m. Ages 40-49 = 99 mL/min/1.73 sq.m. Ages 50-59 = 93 mL/min/1.73 sq.m. Ages 60-69 = 85 mL/min/1.73 sq.m. Ages 70+ = 75 mL/min/1.73 sq.m. Chronic Kidney Disease: Less than 60 mL/min/1.73 square meters End Stage Renal Disease: Less than 15 mL/min/1.73 square meters GFR/1.73 sq M.predicted among non-blacks MDRD (S/P/Bld) [Vol rate/Area] 6 ml/min/1.73sqm Invalid Interpretation Code ADM SS Comment on above: Interpretive Data: GFR Population mean for , Non- Americans Ages 20-29 = 116 mL/min/1.73 sq.m. Ages 30-39 = 107 mL/min/1.73 sq.m. Ages 40-49 = 99 mL/min/1.73 sq.m. Ages 50-59 = 93 mL/min/1.73 sq.m. Ages 60-69 = 85 mL/min/1.73 sq.m. Ages 70+ = 75 mL/min/1.73 sq.m. Chronic Kidney Disease: Less than 60 mL/min/1.73 square meters End Stage Renal Disease: Less than 15 mL/min/1.73 square meters Glucose [Mass/Vol] 88 mg/dL Normal 82 - 115 mg/dL AH ADM SS Magnesium [Mass/Vol] 2.0 mg/dL Normal 1.6 - 2.4 mg/dL AH ADM SS Phosphate [Mass/Vol] 8.9 mg/dL High 2.4 - 5.1 mg/dL AH ADM SS Comment on above: Interpretive Data: * *Note - New Reference Range in effect 20 Potassium [Moles/Vol] 4.9 mmol/L Normal 3.5 - 5.0 mEq/L AH ADM SS Sodium [Moles/Vol] 133 mmol/L Low 136 - 145 mEq/L AH ADM SS Urea nitrogen [Mass/Vol] 80.0 mg/dL High 8.0 - 22.0 mg/dL AH ADM SS Urea nitrogen/Creatinine [Mass ratio] 9.3 ratio Low 10.0 - 22.0 ratio AH ADM SS LABORATORYOrdered By: Sandra Alves on 11-18-2023 aPTT Coag (Bld) [Time] 54.8 s High 25.0 - 35.0 seconds AH [facility] SS Comment on above: Interpretive Data: F or Heparin anticoagulation therapy, the recommended therapeutic range is: 54-77 seconds (APTT Correlation with Anti-Xa therapeutic range of 0.3-0.7 units/ml). PLEASE REFERENCE THE PHARMACY PROTOCOL FOR DOSING. Heparin dose (APTT) Unknown (11/18/23 4:50 AM) Normal AH Coagulation S MGon 11-18-2023 Magnesium [Mass/Vol] 2.0 mg/dL Normal 1.6-2.4 [facility] ([place]) Comment on above: Performed By: #### C LASHANDA, DARIEN, ANISHA, MDW, ANEU, GFR, PBNP, CMP #### Marc [address] [address] RFPon 11-18-2023 Albumin Level 2.6 G/dL Low 3.2-4.8 [facility] ([place]) Comment on above: Performed By: #### C LASHANDA, DARIEN, ANISHA, W, ANEU, GFR, PBNP, CMP #### [address] [address] BUN/Creatinine Ratio 9.3 ratio Low 10.0-22.0 [facility] ([place]) Comment on above: Performed By: #### C LASHANDA, DARIEN, ANISHA, MDW, ANEU, GFR, PBNP, CMP #### [address] [address] Calcium [Mass/Vol] 8.8 mg/dL Normal 8.7-10.4 [facility] ([place]) Comment on above: Performed By: #### C LASHANDA, ANISHA LEDEZMA, MDW, ANEU, GFR, PBNP, CMP #### [address] [address] Chloride [Moles/Vol] 92 mmol/L Low 98-110 [facility] ([place]) Comment on above: Performed By: #### C LASHANDA, ANISHA LEDEZMA, W, ANEU, GFR, PBNP, CMP #### [address] [address] CO2 [Moles/Vol] 28 mmol/L Normal 22-32 [facility] ([place]) Comment on above: Performed By: #### C LASHANDA, DARIEN, ANISHA, W, ANEU, GFR, PBNP, CMP #### [address] [address] Creatinine [Mass/Vol] 8.64 mg/dL High 0.60-1.40 [facility] ([place] Comment on above: Performed By: #### C LASHANDA, ANISHA LEDEZMA, W, ANEU, GFR, PBNP, CMP #### [address] [address] Electrolyte Balance 13.0 mEq/L Normal 4.0-15.0 [facility] ([place]) Comment on above: Performed By: #### C LASHANDA, DARIEN, ANISHA, MDW, ANEU, GFR, PBNP, CMP #### [address] [address] Glucose [Mass/Vol] 88 mg/dL Normal 82-115 [facility] ([place]) Comment on above: Performed By: #### C DARIEN PYLE TROPHS, MDW, ANEU, GFR, PBNP, CMP #### [address] [address] Phosphate [Mass/Vol] 8.9 mg/dL High 2.4-5.1 [facility] ([place]) Comment on above: Result Comment: No te - New Reference Range in effect 20 Performed By: #### C DARIEN PYLE TROPHS, MDW, ANEU, GFR, PBNP, CMP #### [address] [address] Potassium [Moles/Vol] 4.9 mmol/L Normal 3.5-5.0 [facility] ([place] Comment on above: Performed By: #### C DARIEN PYLE TROPHS, MDW, ANEU, GFR, PBNP, CMP #### [address] [address] Sodium [Moles/Vol] 133 mmol/L Low 136-145 [facility] ([place] Comment on above: Performed By: #### C DARIEN PYLE TROPHS, MDW, ANEU, GFR, PBNP, CMP #### [address] [address] Urea nitrogen [Mass/Vol] 80.0 mg/dL High 8.0-22.0 [facility] ([place] Comment on above: Performed By: #### C DARIEN PYLE TROPHS, MDW, ANEU, GFR, PBNP, CMP #### [address] [address] .Auto Diffon 11-17-2023 Basophil, Absolute 0.1 10 3/mcL Normal 0.0-0.3 [facility] [place] Comment on above: Performed By: #### C DARIEN PYLE TROPHS, MDW, ANEU, GFR, PBNP, CMP #### [address] [address] Basophils/100 WBC (Bld) 0.8 % Normal 0.0-2.5 [facility] ([place] Comment on above: Performed By: #### C BC, ADIFF, TROPHS, MDW, ANEU, GFR, PBNP, CMP #### [address] [address] Eosinophil, Absolute 0.1 10 3/mcL Normal 0.0-0.7 [facility] ([place] Comment on above: Performed By: #### C BC, ADIFF, TROPHS, MDW, ANEU, GFR, PBNP, CMP #### [address] [address] Eosinophils/100 WBC (Bld) 1.2 % Normal 0.0-6.0 [facility] ([place] Comment on above: Performed By: #### C BC, ADIFF, TROPHS, MDW, ANEU, GFR, PBNP, CMP #### [address] [address] Lymphocyte, Absolute 1.1 10 3/mcL Normal 0.9-4.3 [facility] ([place] Comment on above: Performed By: #### C BC, ADLIVIA, TROPHS, MDW, ANEU, GFR, PBNP, CMP #### [address] [address] Lymphocytes/100 WBC (Bld) 13.2 % Low 20.0-40.0 [facility] ([place] Comment on above: Performed By: #### C BC, ADLIVIA, TROPHS, MDW, ANEU, GFR, PBNP, CMP #### [address] [address] Monocyte, Absolute 0.9 10 3/mcL Normal 0.1-1.4 [facility] [place] Comment on above: Performed By: #### C BC, ADIFF, TROPHS, MDW, ANEU, GFR, PBNP, CMP #### [address] [address] Monocytes/100 WBC (Bld) 9.9 % Normal 2.0-13.0 [facility] ([place] Comment on above: Performed By: #### C DARIEN PYLE TROPHS, MDW, ANEU, GFR, PBNP, CMP #### [address] [address] Neutrophils/100 WBC (Bld) 74.9 % Normal 50.0-75.0 [facility] ([place] Comment on above: Performed By: #### C DARIEN PYLE TROPHS, MDW, ANEU, GFR, PBNP, CMP #### [address] [address] .GFRon 11-17-2023 GFR 9 ml/min/1.73sqm Normal [facility] ([place] Comment on above: Result Comment: GFR Population mean for , Non- Americans Ages 20-29 = 116 mL/min/1.73 sq.m. Ages 30-39 = 107 mL/min/1.73 sq.m. Ages 40-49 = 99 mL/min/1.73 sq.m. Ages 50-59 = 93 mL/min/1.73 sq.m. Ages 60-69 = 85 mL/min/1.73 sq.m. Ages 70+ = 75 mL/min/1.73 sq.m. Chronic Kidney Disease: Less than 60 mL/min/1.73 square meters End Stage Renal Disease: Less than 15 mL/min/1.73 square meters Performed By: #### C DARIEN YPLE TROPHS, MDW, ANEU, GFR, PBNP, CMP #### [address] [address] GFR Non- 7 ml/min/1.73sqm Normal [facility] ([place] Comment on above: Result Comment: GFR Population mean for , Non- Americans Ages 20-29 = 116 mL/min/1.73 sq.m. Ages 30-39 = 107 mL/min/1.73 sq.m. Ages 40-49 = 99 mL/min/1.73 sq.m. Ages 50-59 = 93 mL/min/1.73 sq.m. Ages 60-69 = 85 mL/min/1.73 sq.m. Ages 70+ = 75 mL/min/1.73 sq.m. Chronic Kidney Disease: Less than 60 mL/min/1.73 square meters End Stage Renal Disease: Less than 15 mL/min/1.73 square meters Performed By: #### C DARIEN PYLE TROPHS, MDW, ANEU, GFR, PBNP, CMP #### [address] [address] .NEUABSon 11-17-2023 Neutrophil, Absolute 6.5 10 3/mcL Normal 2.3-8.1 [facility] ([place] Comment on above: Performed By: #### C DARIEN PYLE TROPHS, MDW, ANEU, GFR, PBNP, CMP #### [address] [address] APTTon 11-17-2023 aPTT Coag (Bld) [Time] 57.6 s High 25.0-35.0 [facility] ([place] Comment on above: Result Comment: For Heparin anticoagulation therapy, the recommended therapeutic range is: 54-77 seconds (APTT Correlation with Anti-Xa therapeutic range of 0.3-0.7 units/ml). PLEASE REFERENCE THE PHARMACY PROTOCOL FOR DOSING. Heparin dose (APTT) Heparin IV Normal [facility] ([place] aPTT Coag (Bld) [Time] 59.6 s High 25.0-35.0 [facility] ([place] Comment on above: Result Comment: For Heparin anticoagulation therapy, the recommended therapeutic range is: 54-77 seconds (APTT Correlation with Anti-Xa therapeutic range of 0.3-0.7 units/ml). PLEASE REFERENCE THE PHARMACY PROTOCOL FOR DOSING. Heparin dose (APTT) Heparin IV Normal [facility]) BMPon 11-17-2023 BUN/Creatinine Ratio 8.0 ratio Low 10.0-22.0 [facility] ([place] Comment on above: Performed By: #### C DARIEN PYLE TROPHS, MDW, ANEU, GFR, PBNP, CMP #### [address] [address] Calcium [Mass/Vol] 9.4 mg/dL Normal 8.7-10.4 [facility] ([place] Comment on above: Performed By: #### C DARIEN PYLE TROPHS, MDW, ANEU, GFR, PBNP, CMP #### [address] [address] Chloride [Moles/Vol] 93 mmol/L Low 98-110 [facility] ([place] Comment on above: Performed By: #### C DARIEN PYLE TROPHS, MDW, ANEU, GFR, PBNP, CMP #### [address] [address] CO2 [Moles/Vol] 30 mmol/L Normal 22-32 [facility] ([place] Comment on above: Performed By: #### C DARIEN PYLE TROPHS, MDW, ANEU, GFR, PBNP, CMP #### [address] [address] Creatinine [Mass/Vol] 7.40 mg/dL High 0.60-1.40 [facility] ([place] Comment on above: Performed By: #### C DARIEN PYLE TROPHS, MDW, ANEU, GFR, PBNP, CMP #### [address] [address] Electrolyte Balance 10.0 mEq/L Normal 4.0-15.0 [facility] ([place] Comment on above: Performed By: #### C DARIEN PYLE TROPHS, MDW, ANEU, GFR, PBNP, CMP #### [address] [address] Glucose [Mass/Vol] 99 mg/dL Normal 82-115 [facility] ([place] Comment on above: Performed By: #### C DARIEN PYLE TROPHS, MDW, ANEU, GFR, PBNP, CMP #### [address] [address] Potassium [Moles/Vol] 4.5 mmol/L Normal 3.5-5.0 [facility] ([place] Comment on above: Performed By: #### C BC, ANISHA LEDEZMA MDW, ANEU, GFR, PBNP, CMP #### [address] [address] Sodium [Moles/Vol] 133 mmol/L Low 136-145 [facility] ([place] Comment on above: Performed By: #### C LASHANDA, ANISHA LEDEZMA, ERNST, ANEU, GFR, PBNP, CMP #### [place] [phone] Urea nitrogen [Mass/Vol] 59.0 mg/dL High 8.0-22.0 [facility] ([place] Comment on above: Performed By: #### C DARIEN PYLE TROPHS, MDW, ANEU, GFR, PBNP, CMP #### [place] [phone] CBCon 11-17-2023 Erythrocyte distribution width (RBC) [Ratio] 16.8 % High 11.5-15.5 [facility] ([place] Comment on above: Performed By: #### C DARIEN PYLE TROPHS, MDW, ANEU, GFR, PBNP, CMP #### [place] [phone] Hematocrit (Bld) [Volume fraction] 29.6 % Low 40.0-52.0 [facility] ([place] Comment on above: Performed By: #### C DARIEN PYLE TROPHS, MDW, ANEU, GFR, PBNP, CMP #### [place] [phone] Hgb 9.8 G/dL Low 13.0-17.5 [facility] ([place] Comment on above: Performed By: #### C DARIEN PYLE TROPHS, MDW, ANEU, GFR, PBNP, CMP #### [place] [phone] MCH (RBC) [Entitic mass] 29.8 pg Normal 27.0-33.0 [facility] ([place] Comment on above: Performed By: #### C BC, ADIFF, TROPHS, MDW, ANEU, GFR, PBNP, CMP #### [address] [address] MCHC 33.0 G/dL Normal 32.0-36.0 [facility] ([place] Comment on above: Performed By: #### C DARIEN PYLE TROPHS, MDW, ANEU, GFR, PBNP, CMP #### [address] [address] MCV (RBC) [Entitic vol] 90.3 fL Normal 81.0-100.0 [facility] ([place] Comment on above: Performed By: #### C DARIEN PYLE TROPHS, MDW, ANEU, GFR, PBNP, CMP #### [address] [address] Platelet 238 10 3/mcL Normal 150-450 [facility] ([place] Comment on above: Performed By: #### C DARIEN PYLE TROPHS, MDW, ANEU, GFR, PBNP, CMP #### [address] [address] Platelet mean volume (Bld) [Entitic vol] 7.9 fL Normal 6.4-10.5 [facility] ([place] Comment on above: Performed By: #### C DARIEN PYLE TROPHS, MDW, ANEU, GFR, PBNP, CMP #### [address] [address] RBC 3.28 10 6/mcL Low 4.50-6.00 [facility] ([place] Comment on above: Performed By: #### C DARIEN PYLE TROPHS, MDW, ANEU, GFR, PBNP, CMP #### [address] [address] WBC 8.6 10 3/mcL Normal 4.5-10.8 [facility] ([place] Comment on above: Performed By: #### C DRAIEN PYLE TROPHS, MDW, ANEU, GFR, PBNP, CMP #### [address] [address] LABORATORYOrdered By: Tawana Thomas on 11-17-2023 aPTT Coag (Bld) [Time] 57.6 s High 25.0 - 35.0 seconds [facility] SS Comment on above: Interpretive Data: F or Heparin anticoagulation therapy, the recommended therapeutic range is: 54-77 seconds (APTT Correlation with Anti-Xa therapeutic range of 0.3-0.7 units/ml). PLEASE REFERENCE THE PHARMACY PROTOCOL FOR DOSING. Heparin dose (APTT) Heparin IV (11/17/23 6:47 AM) Normal Coagulation S LABORATORYOrdered By: SYSTEM SYSTEM on 11-17-2023 Basophils (Bld) [#/Vol] 0.1 103/mcL Normal 0.0 - 0.3 10^3/mcL Workflow SS Basophils/100 WBC (Bld) 0.8 % Normal 0.0 - 2.5 % Workflow SS Calcium [Mass/Vol] 9.4 mg/dL Normal 8.7 - 10. 4 mg/dL ADM SS Chloride [Moles/Vol] 93 mmol/L Low 98 - 110 mEq/L ADM SS CO2 [Moles/Vol] 30 mmol/L Normal 22 - 32 mEq/L ADM SS Creatinine [Mass/Vol] 7.40 mg/dL High 0.60 - 1.40 mg/dL ADM SS Electrolyte Balance 10.0 mEq/L Normal 4.0 - 15 .0 mEq/L ADM SS Eosinophils (Bld) [#/Vol] 0.1 103/mcL Normal 0.0 - 0.7 10^3/mcL Workflow SS Eosinophils/100 WBC (Bld) 1.2 % Normal 0.0 - 6.0 % Workflow SS Erythrocyte distribution width (RBC) [Ratio] 16.8 % High 11.5 - 15.5 % Workflow SS GFR/1.73 sq M.predicted among blacks MDRD (S/P/Bld) [Vol rate/Area] 9 ml/min/1.73sqm Invalid Interpretation Code ADM SS Comment on above: Interpretive Data: GFR Population mean for , Non- Americans Ages 20-29 = 116 mL/min/1.73 sq.m. Ages 30-39 = 107 mL/min/1.73 sq.m. Ages 40-49 = 99 mL/min/1.73 sq.m. Ages 50-59 = 93 mL/min/1.73 sq.m. Ages 60-69 = 85 mL/min/1.73 sq.m. Ages 70+ = 75 mL/min/1.73 sq.m. Chronic Kidney Disease: Less than 60 mL/min/1.73 square meters End Stage Renal Disease: Less than 15 mL/min/1.73 square meters GFR/1.73 sq M.predicted among non-blacks MDRD (S/P/Bld) [Vol rate/Area] 7 ml/min/1.73sqm Invalid Interpretation Code ADM SS Comment on above: Interpretive Data: GFR Population mean for , Non- Americans Ages 20-29 = 116 mL/min/1.73 sq.m. Ages 30-39 = 107 mL/min/1.73 sq.m. Ages 40-49 = 99 mL/min/1.73 sq.m. Ages 50-59 = 93 mL/min/1.73 sq.m. Ages 60-69 = 85 mL/min/1.73 sq.m. Ages 70+ = 75 mL/min/1.73 sq.m. Chronic Kidney Disease: Less than 60 mL/min/1.73 square meters End Stage Renal Disease: Less than 15 mL/min/1.73 square meters Glucose [Mass/Vol] 99 mg/dL Normal 82 - 115 mg/dL ADM SS Hematocrit (Bld) [Volume fraction] 29.6 % Low 40.0 - 52.0 % AH Workflow SS Hemoglobin (Bld) [Mass/Vol] 9.8 G/dL Low 13.0 - 17.5 G/dL AH Workflow SS Lymphocytes (Bld) [#/Vol] 1.1 103/mcL Normal 0.9 - 4.3 10^3/mcL Workflow SS Lymphocytes/100 WBC (Bld) 13.2 % Low 20.0 - 40.0 % AH Workflow SS Magnesium [Mass/Vol] 2.0 mg/dL Normal 1.6 - 2.4 mg/dL ADM SS MCH (RBC) [Entitic mass] 29.8 pg Normal 27.0 - 33.0 pg Workflow SS MCHC 33.0 G/dL Normal 32.0 - 36.0 G/dL Workflow SS MCV (RBC) [Entitic vol] 90.3 fL Normal 81.0 - 100.0 fL AH Workflow SS Monocytes (Bld) [#/Vol] 0.9 103/mcL Normal 0.1 - 1.4 10^3/mcL AH Workflow SS Monocytes/100 WBC (Bld) 9.9 % Normal 2.0 - 13.0 % AH Workflow SS Neutrophils (Bld) [#/Vol] 6.5 103/mcL Normal 2.3 - 8.1 10^3/mcL AH Workflow SS Neutrophils/100 WBC (Bld) 74.9 % Normal 50.0 - 75.0 % AH Workflow SS Platelet mean volume (Bld) [Entitic vol] 7.9 fL Normal 6.4 - 10.5 fL AH Workflow SS Platelets (Bld) [#/Vol] 238 103/mcL Normal 150 - 450 10^3/mcL AH Workflow SS Potassium [Moles/Vol] 4.5 mmol/L Normal 3.5 - 5.0 mEq/L ADM SS RBC (Bld) [#/Vol] 3.28 106/mcL Low 4.50 - 6.0 0 10^6/mcL AH Workflow SS Sodium [Moles/Vol] 133 mmol/L Low 136 - 145 mEq/L ADM SS Urea nitrogen [Mass/Vol] 59.0 mg/dL High 8.0 - 22.0 mg/dL AH ADM SS Urea nitrogen/Creatinine [Mass ratio] 8.0 ratio Low 10.0 - 22.0 ratio AH ADM SS WBC (Bld) [#/Vol] 8.6 103/mcL Normal 4.5 - 10.8 10^3/mcL AH Workflow SS LABORATORYOrdered By: Azra viveros on 11-17-2023 Cholesterol [Mass/Vol] 150 mg/dL Normal 50 - 199 mg/dL ADM SS Comment on above: Interpretive Data: C holesterol Reference Interval: Less than 200 Desirable 200-239 Borderline high risk 240 and above High risk Cholesterol in HDL [Mass/Vol] 57 mg/dL Normal 40 - 59 mg/dL ADM SS Cholesterol in LDL [Mass/Vol] 80 mg/dL Normal 0 - 129 mg/dL ADM SS Triglyceride [Mass/Vol] 65 mg/dL Normal 3 - 149 mg/dL ADM SS LIPIDon 11-17-2023 Cholesterol [Mass/Vol] 150 mg/dL Normal 50-199 [facility] ([place] Comment on above: Result Comment: Chol esterol Reference Interval: Less than 200 Desirable 200-239 Borderline high risk 240 and above High risk Performed By: #### C DARIEN PYLE TROPHS, MDW, ANEU, GFR, PBNP, CMP #### [address] [address] Cholesterol in HDL [Mass/Vol] 57 mg/dL Normal 40-59 [facility] ([place] Comment on above: Performed By: #### C DARIEN PYLE TROPHS, MDW, ANEU, GFR, PBNP, CMP #### [address] [address] Cholesterol in LDL [Mass/Vol] 80 mg/dL Normal 0-129 [facility] ([place] Comment on above: Performed By: #### C DARIEN PYLE TROPHS, MDW, ANEU, GFR, PBNP, CMP #### [address] [address] Triglyceride [Mass/Vol] 65 mg/dL Normal 3-149 [facility] ([place] Comment on above: Performed By: #### C DARIEN PYLE TROPHS, MDW, ANEU, GFR, PBNP, CMP #### [address] [address] MGon 11-17-2023 Magnesium [Mass/Vol] 2.0 mg/dL Normal 1.6-2.4 [facility] ([place] Comment on above: Performed By: #### C DARIEN PYLE TROPHS, MDW, ANEU, GFR, PBNP, CMP #### [address] [address] .Auto Diffon 11-16-2023 Basophil, Absolute 0.0 10 3/mcL Normal 0.0-0.3 [facility] [place] Comment on above: Performed By: #### C DARIEN PYLE TROPHS, MDW, ANEU, GFR, PBNP, CMP #### [address] [address] Basophils/100 WBC (Bld) 0.6 % Normal 0.0-2.5 [facility] ([place] Comment on above: Performed By: #### C LASHANDA, DARIEN, PREETIS, MDW, ANEU, GFR, PBNP, CMP #### [address] [address] Eosinophil, Absolute 0.1 10 3/mcL Normal 0.0-0.7 [facility] ([place] Comment on above: Performed By: #### C BC, ADLIVIA, PREETIS, MDW, ANEU, GFR, PBNP, CMP #### [address] [address] Eosinophils/100 WBC (Bld) 1.6 % Normal 0.0-6.0 [facility] ([place] Comment on above: Performed By: #### C LASHANDA, DARIEN, ANISHA, MDW, ANEU, GFR, PBNP, CMP #### [address] [address] Lymphocyte, Absolute 1.3 10 3/mcL Normal 0.9-4.3 [facility] ([place] Comment on above: Performed By: #### C BC, DARIEN, PREETIS, MDW, ANEU, GFR, PBNP, CMP #### [address] [address] Lymphocytes/100 WBC (Bld) 15.5 % Low 20.0-40.0 [facility] ([place] Comment on above: Performed By: #### C LASHANDA, ADLIVIA, PREETIS, MDW, ANEU, GFR, PBNP, CMP #### [address] [address] Monocyte, Absolute 0.9 10 3/mcL Normal 0.1-1.4 [facility] [place] Comment on above: Performed By: #### C BC, DARIEN, PREETIS, MDW, ANEU, GFR, PBNP, CMP #### [address] [address] Monocytes/100 WBC (Bld) 10.5 % Normal 2.0-13.0 [facility] ([place] Comment on above: Performed By: #### C BC, ADIFF, PREETIS, MDW, ANEU, GFR, PBNP, CMP #### [address] [address] Neutrophils/100 WBC (Bld) 71.8 % Normal 50.0-75.0 [facility] ([place] Comment on above: Performed By: #### C DARIEN PYLE TROPHS, MDW, ANEU, GFR, PBNP, CMP #### [address] [address] .GFRon 11-16-2023 GFR 15 ml/min/1.73sqm Normal [facility] ([place]) Comment on above: Result Comment: GFR Population mean for , Non- Americans Ages 20-29 = 116 mL/min/1.73 sq.m. Ages 30-39 = 107 mL/min/1.73 sq.m. Ages 40-49 = 99 mL/min/1.73 sq.m. Ages 50-59 = 93 mL/min/1.73 sq.m. Ages 60-69 = 85 mL/min/1.73 sq.m. Ages 70+ = 75 mL/min/1.73 sq.m. Chronic Kidney Disease: Less than 60 mL/min/1.73 square meters End Stage Renal Disease: Less than 15 mL/min/1.73 square meters Performed By: #### C DARIEN PYLE TROPHS, MDW, ANEU, GFR, PBNP, CMP #### [address] [address] GFR Non- 12 ml/min/1.73sqm Normal [facility] ([place] Comment on above: Result Comment: GFR Population mean for , Non- Americans Ages 20-29 = 116 mL/min/1.73 sq.m. Ages 30-39 = 107 mL/min/1.73 sq.m. Ages 40-49 = 99 mL/min/1.73 sq.m. Ages 50-59 = 93 mL/min/1.73 sq.m. Ages 60-69 = 85 mL/min/1.73 sq.m. Ages 70+ = 75 mL/min/1.73 sq.m. Chronic Kidney Disease: Less than 60 mL/min/1.73 square meters End Stage Renal Disease: Less than 15 mL/min/1.73 square meters Performed By: #### C DARIEN PYLE TROPHS, ERNST, ANEU, GFR, PBNP, CMP #### [address] [address] .NEUABSon 11-16-2023 Neutrophil, Absolute 5.9 10 3/mcL Normal 2.3-8.1 [facility] ([place] Comment on above: Performed By: #### C DARIEN PYLE TROPHS, MDW, ANEU, GFR, PBNP, CMP #### [address] [address] APTTon 11-16-2023 aPTT Coag (Bld) [Time] 47.8 s High 25.0-35.0 [facility] ([place]) Comment on above: Result Comment: For Heparin anticoagulation therapy, the recommended therapeutic range is: 54-77 seconds (APTT Correlation with Anti-Xa therapeutic range of 0.3-0.7 units/ml). PLEASE REFERENCE THE PHARMACY PROTOCOL FOR DOSING. Heparin dose (APTT) Heparin IV Normal [facility] ([place]) aPTT Coag (Bld) [Time] 39.7 s High 25.0-35.0 [facility] ([place] Comment on above: Result Comment: For Heparin anticoagulation therapy, the recommended therapeutic range is: 54-77 seconds (APTT Correlation with Anti-Xa therapeutic range of 0.3-0.7 units/ml). PLEASE REFERENCE THE PHARMACY PROTOCOL FOR DOSING. Heparin dose (APTT) Heparin IV Normal [facility] ([place] aPTT Coag (Bld) [Time] 27.8 s Normal 25.0-35.0 [facility] ([place]) Comment on above: Result Comment: For Heparin anticoagulation therapy, the recommended therapeutic range is: 54-77 seconds (APTT Correlation with Anti-Xa therapeutic range of 0.3-0.7 units/ml). PLEASE REFERENCE THE PHARMACY PROTOCOL FOR DOSING. Performed By: #### C DARIEN PYLE TROPHS, MDW, ANEU, GFR, PBNP, CMP #### [place] [id number] Heparin dose (APTT) Unknown Normal [facility] ([place]) Comment on above: Performed By: #### C DARIEN PYLE TROPHS, MDW, ANEU, GFR, PBNP, CMP #### [place] [address] CAIONon 11-16-2023 Calcium Ionized 1.05 mmol/L Low 1.12-1.32 [facility] ([place]) Comment on above: Performed By: #### C DARIEN PYLE TROPHS, MDW, ANEU, GFR, PBNP, CMP #### [place] [address] CBCon 11-16-2023 Erythrocyte distribution width (RBC) [Ratio] 17.2 % High 11.5-15.5 [facility] ([place]) Comment on above: Performed By: #### C DARIEN PYLE TROPHS, MDW, ANEU, GFR, PBNP, CMP #### [place] [address] Hematocrit (Bld) [Volume fraction] 29.3 % Low 40.0-52.0 [facility] ([place]) Comment on above: Performed By: #### C DARIEN PYLE TROPHS, MDW, ANEU, GFR, PBNP, CMP #### [place] [address] Hgb 10.0 G/dL Low 13.0-17.5 [facility] ([place] Comment on above: Performed By: #### C DARIEN PYLE TROPHS, MDW, ANEU, GFR, PBNP, CMP #### [place] [address] MCH (RBC) [Entitic mass] 30.6 pg Normal 27.0-33.0 [facility] ([place] Comment on above: Performed By: #### C DARIEN PYLE TROPHS, MDW, ANEU, GFR, PBNP, CMP #### [place] [address] MCHC 34.0 G/dL Normal 32.0-36.0 [facility] ([place] Comment on above: Performed By: #### C DARIEN PYLE TROPHS, MDW, ANEU, GFR, PBNP, CMP #### [address] [address] MCV (RBC) [Entitic vol] 89.9 fL Normal 81.0-100.0 [facility] ([place] Comment on above: Performed By: #### C DARIEN PYLE TROPHS, MDW, ANEU, GFR, PBNP, CMP #### [address] [address] Platelet 247 10 3/mcL Normal 150-450 [facility] ([place]) Comment on above: Performed By: #### C DARIEN PYLE TROPHS, MDW, ANEU, GFR, PBNP, CMP #### [address] [address] Platelet mean volume (Bld) [Entitic vol] 7.8 fL Normal 6.4-10.5 [facility] ([place]) Comment on above: Performed By: #### C DARIEN PYLE TROPHS, MDW, ANEU, GFR, PBNP, CMP #### [address] [address] RBC 3.26 10 6/mcL Low 4.50-6.00 [facility] ([place]) Comment on above: Performed By: #### C DARIEN PYLE TROPHS, MDW, ANEU, GFR, PBNP, CMP #### [address] [address] WBC 8.2 10 3/mcL Normal 4.5-10.8 [facility] ([place]) Comment on above: Performed By: #### C DARIEN PYLE TROPHS, MDW, ANEU, GFR, PBNP, CMP #### [address] [address] CMPon 11-16-2023 Albumin Level 3.0 G/dL Low 3.2-4.8 [facility] ([place]) Comment on above: Performed By: #### C DARIEN PYLE TROPHS, MDW, ANEU, GFR, PBNP, CMP #### [address] [address] Albumin/Globulin [Mass ratio] 0.8 {ratio} Low 0.9-1.6 [facility] ([place]) Comment on above: Performed By: #### C LASHANDA, ANISHA LEDEZMA, ERNST, ANEU, GFR, PBNP, CMP #### [place] [address] ALP [Catalytic activity/Vol] 134 U/L High 38-126 [facility] ([place]) Comment on above: Performed By: #### C LASHANDA, ANISHA LEDEZMA MDW, ANEU, GFR, PBNP, CMP #### [place] [address] ALT [Catalytic activity/Vol] 9 U/L Low 12-55 [facility] ([place] Comment on above: Performed By: #### C DARIEN PYLE TROPHS, MDW, ANEU, GFR, PBNP, CMP #### [place] [address] AST [Catalytic activity/Vol] 12 U/L Normal 8-34 [facility] ([place] Comment on above: Performed By: #### C DARIEN PYLE TROPHS, MDW, ANEU, GFR, PBNP, CMP #### [address] [address] Bili Total 0.40 mg/dL Normal 0.20-1.20 [facility] ([place]) Comment on above: Result Comment: Use of this assay is not recommended for patients undergoing treatment with eltrombopag due to the potential for falsely elevated results. Performed By: #### C DARIEN PYLE TROPHS, MDW, ANEU, GFR, PBNP, CMP #### [place] [address] BUN/Creatinine Ratio 7.3 ratio Low 10.0-22.0 [facility] ([place] Comment on above: Performed By: #### C DARIEN PYLE TROPHS, MDW, ANEU, GFR, PBNP, CMP #### [address] [address] Calcium [Mass/Vol] 9.3 mg/dL Normal 8.7-10.4 [facility] ([place]) Comment on above: Performed By: #### C DARIEN PYLE TROPHS, MDW, ANEU, GFR, PBNP, CMP #### [address] [address] Chloride [Moles/Vol] 97 mmol/L Low 98-110 [facility] ([place] Comment on above: Performed By: #### C DARIEN PYLE TROPHS, MDW, ANEU, GFR, PBNP, CMP #### [address] [address] CO2 [Moles/Vol] 31 mmol/L Normal 22-32 [facility] ([place] Comment on above: Performed By: #### C DARIEN PYLE TROPHS, MDW, ANEU, GFR, PBNP, CMP #### [address] [address] Creatinine [Mass/Vol] 4.67 mg/dL High 0.60-1.40 [facility] ([place] Comment on above: Performed By: #### C DARIEN PYLE TROPHS, MDW, ANEU, GFR, PBNP, CMP #### [address] [address] Electrolyte Balance 7.0 mEq/L Normal 4.0-15.0 [facility] ([place]) Comment on above: Performed By: #### C DARIEN PYLE TROPHS, MDW, ANEU, GFR, PBNP, CMP #### [address] [address] Globulin 3.7 G/dL Normal 1.5-3.8 [facility] ([place] Comment on above: Performed By: #### C DARIEN PYLE TROPHS, MDW, ANEU, GFR, PBNP, CMP #### [address] [address] Glucose [Mass/Vol] 97 mg/dL Normal 82-115 [facility] ([place]) Comment on above: Performed By: #### C DARIEN PYLE TROPHS, MDW, ANEU, GFR, PBNP, CMP #### [address] [address] Potassium [Moles/Vol] 4.0 mmol/L Normal 3.5-5.0 [facility] ([place] Comment on above: Performed By: #### C DARIEN PYLE TROPHS, MDW, ANEU, GFR, PBNP, CMP #### [address] [address] Sodium [Moles/Vol] 135 mmol/L Low 136-145 [facility] ([place]) Comment on above: Performed By: #### C DARIEN PYLE TROPHS, MDW, ANEU, GFR, PBNP, CMP #### [address] [address] Total Protein 6.7 G/dL Normal 5.7-8.2 [facility] ([place] Comment on above: Result Comment: No te - New Reference Range in effect 20 Performed By: #### C DARIEN PYLE TROPHS, MDW, ANEU, GFR, PBNP, CMP #### [address] [address] Urea nitrogen [Mass/Vol] 34.0 mg/dL High 8.0-22.0 [facility] ([place] Comment on above: Performed By: #### C DARIEN PYLE TROPHS, MDW, ANEU, GFR, PBNP, CMP #### [address] [address] LABORATORYOrdered By: SYSTEM SYSTEM on 11-16-2023 Troponin I.cardiac DL <= 0.01 ng/mL [Mass/Vol] 682 ng/L High 0 - 54 ng/L ADM SS Comment on above: Interpretive Data: High Sensitive Troponin I Reference Ranges: Female: 0-34 ng/L Male: 0-54 ng/L Testing performed on [employer] analyzer using direct chemiluminescent technology. Albumin BCP dye [Mass/Vol] 3.0 G/dL Low 3.2 - 4.8 G/dL ADM SS Albumin/Globulin [Mass ratio] 0.8 {ratio} Low 0.9 - 1.6 ratio ADM SS ALP [Catalytic activity/Vol] 134 U/L High 38 - 126 U/L ADM SS ALT No additional P-5'-P [Catalytic activity/Vol] 9 U/L Low 12 - 55 U/L ADM SS AST [Catalytic activity/Vol] 12 U/L Normal 8 - 34 U/L ADM SS Basophils (Bld) [#/Vol] 0.0 103/mcL Normal 0.0 - 0.3 10^3/mcL Workflow SS Basophils/100 WBC (Bld) 0.6 % Normal 0.0 - 2.5 % Workflow SS Bilirubin [Mass/Vol] 0.40 mg/dL Normal 0.20 - 1.20 mg/dL ADM SS Comment on above: Interpretive Data: U se of this assay is not recommended for patients undergoing treatment with eltrombopag due to the potential for falsely elevated results. Eosinophils (Bld) [#/Vol] 0.1 103/mcL Normal 0.0 - 0.7 10^3/mcL Workflow SS Eosinophils/100 WBC (Bld) 1.6 % Normal 0.0 - 6.0 % Workflow SS Erythrocyte distribution width (RBC) [Ratio] 17.2 % High 11.5 - 15.5 % Workflow SS Globulin 3.7 G/dL Normal 1.5 - 3.8 G/dL ADM SS Hematocrit (Bld) [Volume fraction] 29.3 % Low 40.0 - 52.0 % Workflow SS Hemoglobin (Bld) [Mass/Vol] 10.0 G/dL Low 13.0 - 17.5 G/dL Workflow SS Lymphocytes (Bld) [#/Vol] 1.3 103/mcL Normal 0.9 - 4.3 10^3/mcL Workflow SS Lymphocytes/100 WBC (Bld) 15.5 % Low 20.0 - 40.0 % Workflow SS MCH (RBC) [Entitic mass] 30.6 pg Normal 27.0 - 33.0 pg Workflow SS MCHC 34.0 G/dL Normal 32.0 - 36.0 G/dL Workflow SS MCV (RBC) [Entitic vol] 89.9 fL Normal 81.0 - 100.0 fL AH Workflow SS Monocytes (Bld) [#/Vol] 0.9 103/mcL Normal 0.1 - 1.4 10^3/mcL Workflow SS Monocytes/100 WBC (Bld) 10.5 % Normal 2.0 - 13.0 % Workflow SS Neutrophils (Bld) [#/Vol] 5.9 103/mcL Normal 2.3 - 8.1 10^3/mcL Workflow SS Neutrophils/100 WBC (Bld) 71.8 % Normal 50.0 - 75.0 % Workflow SS Phosphate [Mass/Vol] 6.7 mg/dL High 2.4 - 5.1 mg/dL ADM SS Comment on above: Interpretive Data: * *Note - New Reference Range in effect 20 Platelet mean volume (Bld) [Entitic vol] 7.8 fL Normal 6.4 - 10.5 fL Workflow SS Platelets (Bld) [#/Vol] 247 103/mcL Normal 150 - 450 10^3/mcL Workflow SS Protein [Mass/Vol] 6.7 G/dL Normal 5.7 - 8.2 G/dL ADM Comment on above: Interpretive Data: * *Note - New Reference Range in effect 20 RBC (Bld) [#/Vol] 3.26 106/mcL Low 4.50 - 6.0 0 10^6/mcL Workflow SS Troponin I.cardiac DL <= 0.01 ng/mL [Mass/Vol] 744 ng/L High 0 - 54 ng/L [facility] Comment on above: Interpretive Data: High Sensitive Troponin I Reference Ranges: Female: 0-34 ng/L Male: 0-54 ng/L Testing performed on [employer] analyzer using direct chemiluminescent technology. TSH Qn 2.240 mIU/mL Normal 0.550 - 4.780 mIU/mL ADM Comment on above: Interpretive Data: * *Note - New Reference Range in effect 20 WBC (Bld) [#/Vol] 8.2 103/mcL Normal 4.5 - 10.8 10^3/mcL Workflow SS LABORATORYOrdered By: Lizz Webb on 11-16-2023 Calcium Ionized 1.05 mmol/L Low 1.12 - 1.32 mmol/L Main Rapid Comm SS LABORATORYOrdered By: Nora Bruce on 11-16-2023 PT Coag (PPP) [Time] 12.5 s Normal 9.0 - 14.2 seconds [facility] Comment on above: Interpretive Data: E ffective 02/24/08, Protime results may be affected by some antibiotics (i.e. Ciprofloxacin, Azithromycin, Bactrim) which may potentiate the action of oral anticoagulants, with further increases in Protime/INR. PT International Ratio 1.1 ratio Invalid Interpretation Code [facility] Comment on above: Interpretive Data: T he [employer] (CHEST, 1991, 102:[id number]) recommended therapeutic range for oral anticoagulant therapy is: LOW RISK: Prophylaxis of venous thrombosis INR: 2.0-3.0 Treatment of pulmonary embolism 2.0-3.0 Prevention of systemic embolism 2.0-3.0 HIGH RISK: Mechanical prosthetic valves 2.5-3.5 MGon 11-16-2023 Magnesium [Mass/Vol] 2.0 mg/dL Normal 1.6-2.4 [facility] ([place] Comment on above: Performed By: #### C DARIEN PYLE TROPHS, MDW, ANEU, GFR, PBNP, CMP #### [address] [address] PHOSon 11-16-2023 Phosphate [Mass/Vol] 6.7 mg/dL High 2.4-5.1 [facility] ([place] Comment on above: Result Comment: No te - New Reference Range in effect 20 Performed By: #### C DARIEN PYLE TROPHS, MDW, ANEU, GFR, PBNP, CMP #### [address] [address] PROon 11-16-2023 INR Coag (PPP) [Relative time] 1.1 {INR} Normal [facility] ([place] Comment on above: Result Comment: The [employer] (CHEST, 1991, [id number]) recommended therapeutic range for oral anticoagulant therapy is: LOW RISK: Prophylaxis of venous thrombosis INR: 2.0-3.0 Treatment of pulmonary embolism 2.0-3.0 Prevention of systemic embolism 2.0-3.0 HIGH RISK: Mechanical prosthetic valves 2.5-3.5 Performed By: #### C DARIEN PYLE TROPHS, MDW, ANEU, GFR, PBNP, CMP #### [address] [address] PT Coag (PPP) [Time] 12.5 s Normal 9.0-14.2 [facility] ([place] Comment on above: Result Comment: Effe ctive 02/24/08, Protime results may be affected by some antibiotics (i.e. Ciprofloxacin, Azithromycin, Bactrim) which may potentiate the action of oral anticoagulants, with further increases in Protime/INR. Performed By: #### C DARIEN PYLE TROPHS, MDW, ANEU, GFR, PBNP, CMP #### [place] [id number] TROPHSon 11-16-2023 High Sensitivity Troponin I 682 ng/L High 0-54 [facility] ([place] Comment on above: Result Comment: High Sensitive Troponin I Reference Ranges: Female: 0-34 ng/L Male: 0-54 ng/L Testing performed on [employer] IM analyzer using direct chemiluminescent technology. Performed By: #### C DARIEN PYLE TROPHS, MDW, ANEU, GFR, PBNP, CMP #### [address] [address] High Sensitivity Troponin I 744 ng/L High 0-54 [facility] ([place] Comment on above: Result Comment: High Sensitive Troponin I Reference Ranges: Female: 0-34 ng/L Male: 0-54 ng/L Testing performed on [employer] IM analyzer using direct chemiluminescent technology. Performed By: #### C DARIEN PYLE TROPHS, MDW, ANEU, GFR, PBNP, CMP #### [place] [id number] TSHon 11-16-2023 TSH 2.240 mIU/mL Normal 0.550-4.780 [facility] ([place] Comment on above: Result Comment: No te - New Reference Range in effect 20 Performed By: #### C DARIEN PYLE TROPHS, MDW, ANEU, GFR, PBNP, CMP #### [address] [address] .Auto Diffon 11-15-2023 Basophil, Absolute 0.1 10 3/mcL Normal 0.0-0.2 [facility] [place] Comment on above: Performed By: #### C LASHANDA, DARIEN, ANISHA, W, ANEU, GFR, PBNP, CMP #### [address] [address] Basophils/100 WBC (Bld) 1.0 % Normal 0.0-2.5 [facility] ([place]) Comment on above: Performed By: #### C LASHANDA, ANISHA LEDEZMA, ERNST, ANEU, GFR, PBNP, CMP #### [address] [address] Eosinophil, Absolute 0.1 10 3/mcL Normal 0.0-0.4 [facility] ([place] Comment on above: Performed By: #### C LASHANDA, DARIEN, ANISHA, ERNST, ANEU, GFR, PBNP, CMP #### [address] [address] Eosinophils/100 WBC (Bld) 1.0 % Normal 0.0-7.0 [facility] ([place]) Comment on above: Performed By: #### C LASHANDA, DARIEN, ANISHA, W, ANEU, GFR, PBNP, CMP #### [address] [address] Lymphocyte, Absolute 1.0 10 3/mcL Normal 0.8-3.9 [facility] ([place]) Comment on above: Performed By: #### C LASHANDA, DARIEN, ANISHA, W, ANEU, GFR, PBNP, CMP #### [address] [address] Lymphocytes/100 WBC (Bld) 11.9 % Normal 10.0-50.0 [facility] ([place]) Comment on above: Performed By: #### C LASHANDA, DARIEN, ANISHA, W, ANEU, GFR, PBNP, CMP #### [address] [address] Monocyte, Absolute 0.9 10 3/mcL Normal 0.2-1.0 [facility] [place] Comment on above: Performed By: #### C DARIEN PYLE TROPHS, ERNST, ANEU, GFR, PBNP, CMP #### [address] [address] Monocytes/100 WBC (Bld) 9.7 % Normal 1.7-13.0 [facility] ([place] Comment on above: Performed By: #### C LASHANDA, ANISHA LEDEZMA MDW, ANEU, GFR, PBNP, CMP #### [address] [address] Neutrophils/100 WBC (Bld) 76.4 % Normal 37.0-80.0 [facility] ([place] Comment on above: Performed By: #### C DARIEN PYLE TROPHS, MDW, ANEU, GFR, PBNP, CMP #### [address] [address] .GFRon 11-15-2023 GFR 20 ml/min/1.73sqm Normal [facility] ([place] Comment on above: Result Comment: GFR Population mean for , Non- Americans Ages 20-29 = 116 mL/min/1.73 sq.m. Ages 30-39 = 107 mL/min/1.73 sq.m. Ages 40-49 = 99 mL/min/1.73 sq.m. Ages 50-59 = 93 mL/min/1.73 sq.m. Ages 60-69 = 85 mL/min/1.73 sq.m. Ages 70+ = 75 mL/min/1.73 sq.m. Chronic Kidney Disease: Less than 60 mL/min/1.73 square meters End Stage Renal Disease: Less than 15 mL/min/1.73 square meters Performed By: #### C LASHANDA, ANISHA LEDEZMA, ERNST, ANEU, GFR, PBNP, CMP #### [address] [address] GFR Non- 16 ml/min/1.73sqm Normal [facility] ([place] Comment on above: Result Comment: GFR Population mean for , Non- Americans Ages 20-29 = 116 mL/min/1.73 sq.m. Ages 30-39 = 107 mL/min/1.73 sq.m. Ages 40-49 = 99 mL/min/1.73 sq.m. Ages 50-59 = 93 mL/min/1.73 sq.m. Ages 60-69 = 85 mL/min/1.73 sq.m. Ages 70+ = 75 mL/min/1.73 sq.m. Chronic Kidney Disease: Less than 60 mL/min/1.73 square meters End Stage Renal Disease: Less than 15 mL/min/1.73 square meters Performed By: #### C DARIEN PYLE TROPHS, MDW, ANEU, GFR, PBNP, CMP #### [address] [address] .MDWon 11-15-2023 Monocyte Distribution Width 21.16 High 0.00-20.00 [facility] ([place] Comment on above: Result Comment: For adults in ED, MDW>20.0 may be associated with a higher risk of sepsis during the first 12hrs of hospital admission Performed By: #### C DARIEN PYLE TROPHS, MDW, ANEU, GFR, PBNP, CMP #### [address] [address] .NEUABSon 11-15-2023 Neutrophil, Absolute 6.7 10 3/mcL High 2.9-6.2 [facility] ([place] Comment on above: Performed By: #### C DRAIEN PYLE TROPHS, MDW, ANEU, GFR, PBNP, CMP #### [address] [address] CBCon 11-15-2023 Erythrocyte distribution width (RBC) [Ratio] 16.8 % High 11.5-14.5 [facility] ([place] Comment on above: Performed By: #### C DARIEN PYLE TROPHS, MDW, ANEU, GFR, PBNP, CMP #### [facility] [place] [address] [place], [place] [address] Hematocrit (Bld) [Volume fraction] 33.5 % Low 42.0-52.0 [facility] ([place] Comment on above: Performed By: #### C DARIEN PYLE TROPHS, MDW, ANEU, GFR, PBNP, CMP #### [address] [address] Hgb 11.3 G/dL Low 14.0-18.0 [facility] ([place] Comment on above: Performed By: #### C DARIEN PYLE TROPHS, MDW, ANEU, GFR, PBNP, CMP #### [address] [address] MCH (RBC) [Entitic mass] 30.0 pg Normal 27.0-31.2 [facility] ([place] Comment on above: Performed By: #### C DARIEN PYLE TROPHS, MDW, ANEU, GFR, PBNP, CMP #### [address] [address] MCHC 33.8 G/dL Normal 31.8-35.4 [facility] ([place] Comment on above: Performed By: #### C DARIEN PYLE TROPHS, MDW, ANEU, GFR, PBNP, CMP #### [address] [address] MCV (RBC) [Entitic vol] 88.6 fL Normal 80.0-94.0 [facility] ([place] Comment on above: Performed By: #### C DARIEN PYLE TROPHS, MDW, ANEU, GFR, PBNP, CMP #### [address] [address] Platelet 266 10 3/mcL Normal 130-400 [facility] ([place] Comment on above: Performed By: #### C DARIEN PYLE TROPHS, MDW, ANEU, GFR, PBNP, CMP #### [address] [address] Platelet mean volume (Bld) [Entitic vol] 7.5 fL Normal 7.4-10.4 [facility] ([place] Comment on above: Performed By: #### C LASHANDA, ANISHA LEDEZMA, ERNST, ANEU, GFR, PBNP, CMP #### [address] [address] RBC 3.78 10 6/mcL Low 4.04-6.13 [facility] ([place] Comment on above: Performed By: #### C LASHANDA, ANISHA LEDEZMA, ERNST, ANEU, GFR, PBNP, CMP #### [address] [address] WBC 8.8 10 3/mcL Normal 4.6-10.8 [facility] ([place] Comment on above: Performed By: #### C DARIEN PYLE TROPHS, MDW, ANEU, GFR, PBNP, CMP #### [address] [address] CMPon 11-15-2023 Albumin Level 3.0 G/dL Low 3.4-4.8 [facility]) Comment on above: Performed By: #### C DARIEN PYLE TROPHS, MDW, ANEU, GFR, PBNP, CMP #### [address] [address] Albumin/Globulin [Mass ratio] 0.8 {ratio} Low 1.1-2.5 [facility] ([place] Comment on above: Performed By: #### C DARIEN PYLE TROPHS, MDW, ANEU, GFR, PBNP, CMP #### [address] [address] ALP [Catalytic activity/Vol] 171 U/L High 40-135 [facility] ([place] Comment on above: Performed By: #### C DARIEN PYLE TROPHS, MDW, ANEU, GFR, PBNP, CMP #### [address] [address] ALT [Catalytic activity/Vol] 13 U/L Low 16-63 [facility] ([place] Comment on above: Performed By: #### C LASHANDA, ANISHA LEDEZMA, ERNST, ANEU, GFR, PBNP, CMP #### [address] [address] AST [Catalytic activity/Vol] 16 U/L Normal 10-40 [facility] ([place] Comment on above: Performed By: #### C DARIEN PYLE TROPHS, ERNST, ANEU, GFR, PBNP, CMP #### [address] [address] Bili Total 0.6 mg/dL Normal 0.2-1.0 [facility] ([place] Comment on above: Result Comment: Use of this assay is not recommended for patients undergoing treatment with eltrombopag due to the potential for falsely elevated results. Performed By: #### C DARIEN PYLE TROPHS, MDW, ANEU, GFR, PBNP, CMP #### [address] [address] BUN/Creatinine Ratio 6 ratio Low 7-27 [facility] ([place] Comment on above: Performed By: #### C DARIEN PYLE TROPHS, ERNST, ANEU, GFR, PBNP, CMP #### [address] [address] Calcium [Mass/Vol] 8.4 mg/dL Normal 8.4-10.2 [facility] ([place] Comment on above: Performed By: #### C DARIEN PYLE TROPHS, ERNST, ANEU, GFR, PBNP, CMP #### [address] [address] Chloride [Moles/Vol] 94 mmol/L Low 98-107 [facility] ([place] Comment on above: Performed By: #### C LASHANDA, ANISHA LEDEZMA, W, ANEU, GFR, PBNP, CMP #### [address] [address] CO2 [Moles/Vol] 30 mmol/L Normal 23-31 [facility] ([place] Comment on above: Performed By: #### C LASHANDA, DARIEN, ANISHA, W, ANEU, GFR, PBNP, CMP #### [address] [address] Creatinine [Mass/Vol] 3.58 mg/dL High 0.70-1.30 [facility] ([place] Comment on above: Performed By: #### C DARIEN PYLE TROPHS, MDW, ANEU, GFR, PBNP, CMP #### [address] [address] Electrolyte Balance 12.0 mEq/L Normal 4.0-15.0 [facility] ([place]) Comment on above: Performed By: #### C DARIEN PYLE TROPHS, MDW, ANEU, GFR, PBNP, CMP #### [address] [address] Globulin 3.9 G/dL Normal [facility] ([place] Comment on above: Performed By: #### C DARIEN PYLE TROPHS, MDW, ANEU, GFR, PBNP, CMP #### [address] [address] Glucose [Mass/Vol] 122 mg/dL High 83-110 [facility] ([place] Comment on above: Performed By: #### C DARIEN PYLE TROPHS, MDW, ANEU, GFR, PBNP, CMP #### [address] [address] Potassium [Moles/Vol] 3.4 mmol/L Low 3.5-5.1 [facility] ([place] Comment on above: Performed By: #### C DARIEN PYLE TROPHS, MDW, ANEU, GFR, PBNP, CMP #### [address] [address] Sodium [Moles/Vol] 136 mmol/L Normal 136-145 [facility] ([place] Comment on above: Performed By: #### C DARIEN PYLE TROPHS, MDW, ANEU, GFR, PBNP, CMP #### [address] [address] Total Protein 6.9 G/dL Normal 6.4-8.2 [facility] ([place] Comment on above: Performed By: #### C BC, ANISHA LEDEZMA MDW, ANEU, GFR, PBNP, CMP #### [place] [address] Urea nitrogen [Mass/Vol] 22 mg/dL High 7-18 [facility] ([place] Comment on above: Performed By: #### C DARIEN PYLE TROPHS, MDW, ANEU, GFR, PBNP, CMP #### [place] [address] CVFLURVon 11-15-2023 FLU A PCR Negative Normal Negative [facility] ([place] Comment on above: Performed By: #### C DARIEN PYLE TROPHS, MDW, ANEU, GFR, PBNP, CMP #### [place] [address] FLU B PCR Negative Normal Negative [facility] ([place] Comment on above: Performed By: #### C DARIEN PYLE TROPHS, MDW, ANEU, GFR, PBNP, CMP #### [place] [address] RSV PCR Negative Normal Negative [facility] ([place] Comment on above: Performed By: #### C DARIEN PYLE TROPHS, MDW, ANEU, GFR, PBNP, CMP #### [place] [address] SARS-CoV-2 (COVID-19) RNA HENRY+probe Ql (Unsp spec) Negative Normal Negative [facility] ([place] Comment on above: Result Comment: Resu lts from the Xpert Xpress CoV-2/Flu/RSV plus test should be correlated with the clinical history, epidemiological data, and other data available to the clinical evaluating the patient. Performance of the Xpert Xpress CoV-2/Flu/RSV plus test has only been established in nasopharyngeal swab specimen. Erroneous test results might occur from improper specimen collection, failure to follow the recommended sample collection, handling and storage procedures, technical error, or sample mix-up. False negative results may occur if a virus is present at a level below the analytical limit of detection. Viral nucleic acid may persist in vivo, independent of virus viability. Detection of analyte target(s) does not imply that the corresponding virus(es) are infectious or are the causative agents for clinical symptoms. Recent patient exposure to FluMist or other live attenuated influenza vaccines may cause inaccurate positive results. Performed By: #### C LASHANDA, DARIEN, ANISHA, W, ANEU, GFR, PBNP, CMP #### [place] [id number] [place] [address] LABORATORYOrdered By: SYSTEM SYSTEM on 11-15-2023 Lactate [Moles/Vol] 0.9 mmol/L Normal 0.4 - 2. 0 mmol/L AO ADM SS Troponin I.cardiac DL <= 0.01 ng/mL [Mass/Vol] 583 ng/L High 0 - 76 ng/L AO ADM SS Comment on above: Interpretive Data: H igh Sensitive Troponin I Reference Ranges: Female: 0-51 ng/L Male: 0-76 ng/L Testing performed on [employer] using a homogeneous sandwich chemiluminescent immunoassay based on [employer] technology. Albumin BCP dye [Mass/Vol] 3.0 G/dL Low 3.4 - 4.8 G/dL AO ADM SS Albumin/Globulin [Mass ratio] 0.8 {ratio} Low 1.1 - 2.5 ratio AO ADM SS ALP [Catalytic activity/Vol] 171 U/L High 40 - 135 U/L AO ADM SS ALT With P-5'-P [Catalytic activity/Vol] 13 U/L Low 16 - 63 U/L AO ADM SS AST With P-5'-P [Catalytic activity/Vol] 16 U/L Normal 10 - 40 U/L AO ADM SS Basophil, Absolute 0.1 103/mcL Normal 0.0 - 0.2 10^3/mcL AO Workflow SS Basophils/100 WBC (Bld) 1.0 % Normal 0.0 - 2.5 % AO Workflow SS Bilirubin [Mass/Vol] 0.6 mg/dL Normal 0.2 - 1.0 mg/dL AO ADM SS Comment on above: Interpretive Data: U se of this assay is not recommended for patients undergoing treatment with eltrombopag due to the potential for falsely elevated results. Calcium [Mass/Vol] 8.4 mg/dL Normal 8.4 - 10. 2 mg/dL AO ADM SS Chloride [Moles/Vol] 94 mmol/L Low 98 - 107 mmol/L AO ADM SS CO2 [Moles/Vol] 30 mmol/L Normal 23 - 31 mmol/L AO ADM SS Creatinine [Mass/Vol] 3.58 mg/dL High 0.70 - 1.30 mg/dL AO ADM SS Electrolyte Balance 12.0 mEq/L Normal 4.0 - 15 .0 mEq/L AO ADM SS Eosinophil, Absolute 0.1 103/mcL Normal 0.0 - 0.4 10^3/mcL AO Workflow SS Eosinophils/100 WBC (Bld) 1.0 % Normal 0.0 - 7.0 % AO Workflow SS Erythrocyte distribution width (RBC) [Ratio] 16.8 % High 11.5 - 14.5 % AO Workflow SS GFR/1.73 sq M.predicted among blacks MDRD (S/P/Bld) [Vol rate/Area] 20 ml/min/1.73sqm Invalid Interpretation Code AO Chemistry S Comment on above: Interpretive Data: GFR Population mean for , Non- Americans Ages 20-29 = 116 mL/min/1.73 sq.m. Ages 30-39 = 107 mL/min/1.73 sq.m. Ages 40-49 = 99 mL/min/1.73 sq.m. Ages 50-59 = 93 mL/min/1.73 sq.m. Ages 60-69 = 85 mL/min/1.73 sq.m. Ages 70+ = 75 mL/min/1.73 sq.m. Chronic Kidney Disease: Less than 60 mL/min/1.73 square meters End Stage Renal Disease: Less than 15 mL/min/1.73 square meters GFR/1.73 sq M.predicted among non-blacks MDRD (S/P/Bld) [Vol rate/Area] 16 ml/min/1.73sqm Invalid Interpretation Code AO Chemistry S Comment on above: Interpretive Data: GFR Population mean for , Non- Americans Ages 20-29 = 116 mL/min/1.73 sq.m. Ages 30-39 = 107 mL/min/1.73 sq.m. Ages 40-49 = 99 mL/min/1.73 sq.m. Ages 50-59 = 93 mL/min/1.73 sq.m. Ages 60-69 = 85 mL/min/1.73 sq.m. Ages 70+ = 75 mL/min/1.73 sq.m. Chronic Kidney Disease: Less than 60 mL/min/1.73 square meters End Stage Renal Disease: Less than 15 mL/min/1.73 square meters Globulin 3.9 G/dL Invalid Interpretation Code AO ADM SS Glucose [Mass/Vol] 122 mg/dL High 83 - 110 mg/dL AO ADM SS Hematocrit (Bld) [Volume fraction] 33.5 % Low 42.0 - 52.0 % AO Workflow SS Hemoglobin (Bld) [Mass/Vol] 11.3 G/dL Low 14.0 - 18.0 G/dL AO Workflow SS Lymphocyte, Absolute 1.0 103/mcL Normal 0.8 - 3.9 10^3/mcL AO Workflow SS Lymphocytes/100 WBC (Bld) 11.9 % Normal 10.0 - 50.0 % AO Workflow SS MCH (RBC) [Entitic mass] 30.0 pg Normal 27.0 - 31.2 pg AO Workflow SS MCHC 33.8 G/dL Normal 31.8 - 35.4 G/dL AO Workflow SS MCV (RBC) [Entitic vol] 88.6 fL Normal 80.0 - 94.0 fL AO Workflow SS Monocyte distribution width Auto (Bld) [Entitic vol] 21.16 1 High 0.00 - 20.00 AO Workflow SS Comment on above: Result Comment: For adults in ED, MDW>20.0 may be associated with a higher risk of sepsis during the first 12hrs of hospital admission Monocyte, Absolute 0.9 103/mcL Normal 0.2 - 1.0 10^3/mcL AO Workflow SS Monocytes/100 WBC (Bld) 9.7 % Normal 1.7 - 13.0 % AO Workflow SS Natriuretic peptide.B prohormone N-Terminal [Mass/Vol] 32802 pg/mL High 0 - 450 pg/mL AO ADM SS Comment on above: Interpretive Data: N T-proBNP results of less than 300 pg/mL effectively rules out acute congestive heart failure with 99% negative predictive value. Neutrophil, Absolute 6.7 103/mcL High 2.9 - 6.2 10^3/mcL AO Workflow SS Neutrophils/100 WBC (Bld) 76.4 % Normal 37.0 - 80.0 % AO Workflow SS Platelet mean volume (Bld) [Entitic vol] 7.5 fL Normal 7.4 - 10.4 fL AO Workflow SS Platelets (Bld) [#/Vol] 266 103/mcL Normal 130 - 400 10^3/mcL AO Workflow SS Potassium [Moles/Vol] 3.4 mmol/L Low 3.5 - 5.1 mmol/L AO ADM SS Protein [Mass/Vol] 6.9 G/dL Normal 6.4 - 8.2 G/dL AO ADM SS RBC (Bld) [#/Vol] 3.78 106/mcL Low 4.04 - 6.1 3 10^6/mcL AO Workflow SS Sodium [Moles/Vol] 136 mmol/L Normal 136 - 145 mmol/L AO ADM SS Troponin I.cardiac DL <= 0.01 ng/mL [Mass/Vol] 586 ng/L High 0 - 76 ng/L AO ADM SS Comment on above: Interpretive Data: H igh Sensitive Troponin I Reference Ranges: Female: 0-51 ng/L Male: 0-76 ng/L Testing performed on [employer] using a homogeneous sandwich chemiluminescent immunoassay based on MyRefers technology. Urea nitrogen [Mass/Vol] 22 mg/dL High 7 - 18 mg/dL AO ADM SS Urea nitrogen/Creatinine [Mass ratio] 6 ratio Low 7 - 27 ratio AO ADM SS WBC (Bld) [#/Vol] 8.8 103/mcL Normal 4.6 - 10.8 10^3/mcL AO Workflow SS LABORATORYOrdered By: Francy Lamas on 11-15-2023 FLUAV RNA HENRY+probe Ql (Resp) Negative (11/15/23 12:16 PM) Normal Negative AO Auto Urine SS FLUBV RNA HENRY+probe Ql (Resp) Negative (11/15/23 12:16 PM) Normal Negative AO Auto Urine SS RSV RNA HENRY+probe Ql (Resp) Negative (11/15/23 12:16 PM) Normal Negative AO Auto Urine SS SARS-CoV-2 (COVID-19) RNA HENRY+probe Ql (Resp) Negative 6 (11/15/23 12:16 PM) Normal Negative AO Auto Urine SS Comment on above: Interpretive Data: R esults from the Xpert Xpress CoV-2/Flu/RSV plus test should be correlated with the clinical history, epidemiological data, and other data available to the clinical evaluating the patient. Performance of the Xpert Xpress CoV-2/Flu/RSV plus test has only been established in nasopharyngeal swab specimen. Erroneous test results might occur from improper specimen collection, failure to follow the recommended sample collection, handling and storage procedures, technical error, or sample mix-up. False negative results may occur if a virus is present at a level below the analytical limit of detection. Viral nucleic acid may persist in vivo, independent of virus viability. Detection of analyte target(s) does not imply that the corresponding virus(es) are infectious or are the causative agents for clinical symptoms. Recent patient exposure to FluMist or other live attenuated influenza vaccines may cause inaccurate positive results. LACon 11-15-2023 Lactic Acid Lvl 0.9 mmol/L Normal 0.4-2.0 [facility] ([place]) Comment on above: Performed By: #### C DARIEN PYLE TROPHS, MDW, ANEU, GFR, PBNP, CMP #### [address] [address] No Panel Informationon 11-14 Microscopic examination of blood, culture Culture has been received in lab and is no growth to date. Routine cultures are held for 5 days. [facility] Work Phone: PBNPon 11-15-2023 Natriuretic peptide B (Bld) [Mass/Vol] 07696 pg/mL High 0-450 [facility] [place] Comment on above: Result Comment: NT-p roBNP results of less than 300 pg/mL effectively rules out acute congestive heart failure with 99% negative predictive value. Performed By: #### C DARIEN PYLE TROPHS, MDW, ANEU, GFR, PBNP, CMP #### [address] [address] [facility] 11-15-2023 High Sensitivity Troponin I 583 ng/L High 0-76 [facility] [place] Comment on above: Result Comment: High Sensitive Troponin I Reference Ranges: Female: 0-51 ng/L Male: 0-76 ng/L Testing performed on [employer] using a homogeneous sandwich chemiluminescent immunoassay based on MyRefers technology. Performed By: #### C DARIEN PYLE TROPHS, MDW, ANEU, GFR, PBNP, CMP #### [id number] [place], [place] [address] High Sensitivity Troponin I 586 ng/L High 0-76 [facility] [place] Comment on above: Result Comment: High Sensitive Troponin I Reference Ranges: Female: 0-51 ng/L Male: 0-76 ng/L Testing performed on [employer] using a homogeneous sandwich chemiluminescent immunoassay based on MyRefers technology. Performed By: #### C BC, ADIFF, TROPHS, MDW, ANEU, GFR, PBNP, CMP #### [address] [address] XR CHEST 1 VIEWon 11-15-2023 XR CHEST 1 VIEW ORIGINAL EXAMINATION: ONE XRAY VIEW OF THE CHEST 11/15/2023 12:35 pm COMPARISON: 09/01/2021 HISTORY: ORDERING SYSTEM PROVIDED HISTORY: Reason for Exam: chest pain FINDINGS: Early airspace disease developing in the right lower lobe. Heart is top-normal in size. There is no pulmonary edema or pneumothorax. Postsurgical changes are noted in the region of the thyroid. Skeletal elements are intact. IMPRESSION: Developing right lower lobe pneumonia. Interpreted by: Alberto Bryson DO Preliminary Report By: Alberto Bryson DO Electronically signed By Alberto Bryosn DO Dictated Date: 11/15/2023 1:04:08 PM Prelim Date: 11/15/2023 1:04:44 PM Sign Date: 11/15/2023 1:04:44 PM Ordering Provider: LOIDA Otoole [facility] ([place] [place] Whole body Bone Viewson 0 10-10-2023 [facility] CBC W Auto Differential pane l (Bld)on 07-12-2023 Basophils (Bld) [#/Vol] 10*3/uL Normal <0.11 [facility] Comment on above: Order Comment: Speci men Type: BLOOD SPECIMEN Ordering Facility: [facility] Address: [address] [place] [address] Performed By: #### 5 7021-8 #### [facility] CLIA [id number] [place] [address] [place] Basophils/100 WBC (Bld) 0.1 % [facility] Comment on above: Order Comment: Speci men Type: BLOOD SPECIMEN Ordering Facility: [facility] Address: [address] [place] [address] Performed By: #### 5 7021-8 #### [facility] CLIA [id number] [place] [address] [place] Differential cell count method Nom (Bld) Auto Normal [facility] Comment on above: Order Comment: Speci men Type: BLOOD SPECIMEN Ordering Facility: [facility] Address: [address] [place] [address] Performed By: #### 5 7021-8 #### [facility] CLIA [id number] [place] [address] [place] Eosinophils (Bld) [#/Vol] 10*3/uL Normal <0.46 [facility] Comment on above: Order Comment: Speci men Type: BLOOD SPECIMEN Ordering Facility: [facility] Address: [address] [place] [address] Performed By: #### 5 7021-8 #### [facility] CLIA [id number] [place] [address] [place] Eosinophils/100 WBC (Bld) 0.0 % [facility] Comment on above: Order Comment: Speci men Type: BLOOD SPECIMEN Ordering Facility: [facility] Address: [address] [place] [address] Performed By: #### 5 7021-8 #### [facility] CLIA [id number] [address] [place] [address] [place] Erythrocyte distribution width (RBC) [Ratio] 15.8 % High 11.5-15.0 [facility] Comment on above: Order Comment: Speci men Type: BLOOD SPECIMEN Ordering Facility: [facility] Address: [address] [place] [address] Performed By: #### 5 7021-8 #### [facility] CLIA [id number] [address] [place] [address] [place] Hematocrit (Bld) [Volume fraction] 29.2 % Low 39.0-51.0 [facility] Comment on above: Order Comment: Speci men Type: BLOOD SPECIMEN Ordering Facility: [facility] Address: [address] [place] [address] Performed By: #### 5 7021-8 #### [facility] CLIA [id number] [address] [place] [address] [place] Hemoglobin (Bld) [Mass/Vol] 9.2 g/dL Low 13.0-17.0 [facility] Comment on above: Order Comment: Speci men Type: BLOOD SPECIMEN Ordering Facility: [facility] Address: [address] [place] [address] Performed By: #### 5 7021-8 #### [facility] CLIA [id number] [address] [place] [address] [place] Immature granulocytes (Bld) [#/Vol] 0.05 10*3/uL Normal <0.10 [facility] Comment on above: Order Comment: Speci men Type: BLOOD SPECIMEN Ordering Facility: [facility] Address: [address] [place] [address] Performed By: #### 5 7021-8 #### [facility] CLIA [id number] [address] [place] [address] [place] Immature granulocytes/100 WBC (Bld) 0.5 % Normal [facility] Comment on above: Order Comment: Speci men Type: BLOOD SPECIMEN Ordering Facility: [facility] Address: [address] [place] [address] Performed By: #### 5 7021-8 #### [facility] CLIA [id number] [address] [place] [address] [place] Lymphocytes (Bld) [#/Vol] 0.75 10*3/uL Low 1.00-4.00 [facility] Comment on above: Order Comment: Speci men Type: BLOOD SPECIMEN Ordering Facility: [facility] Address: [address] [place] [address] Performed By: #### 5 7021-8 #### [facility] CLIA [id number] [address] [place] [address] [place] Lymphocytes/100 WBC (Bld) 6.8 % Normal [facility] Comment on above: Order Comment: Speci men Type: BLOOD SPECIMEN Ordering Facility: [facility] Address: [address] [place] [address] Performed By: #### 5 7021-8 #### [facility] CLIA [id number] [place] [address] [place] MCH (RBC) [Entitic mass] 29.7 pg Normal 26.0-34.0 [facility] Comment on above: Order Comment: Speci men Type: BLOOD SPECIMEN Ordering Facility: [facility] Address: [address] [place] [address] Performed By: #### 5 7021-8 #### [facility] [place] [id number] [address] [place] [address] [place] MCHC (RBC) [Mass/Vol] 31.5 g/dL Normal 30.5-36.0 [facility] Comment on above: Order Comment: Speci men Type: BLOOD SPECIMEN Ordering Facility: [facility] Address: [address] [place] [address] Performed By: #### 5 7021-8 #### [facility] [place] [id number] [address] [place] [address] [place] MCV (RBC) [Entitic vol] 94.2 fL Normal 80.0-100.0 [facility] Comment on above: Order Comment: Speci men Type: BLOOD SPECIMEN Ordering Facility: [facility] Address: [address] [place] [address] Performed By: #### 5 7021-8 #### [facility] CLIA [id number] [address] [place] [address] [place] Monocytes (Bld) [#/Vol] 0.83 10*3/uL Normal <0.87 [facility] Comment on above: Order Comment: Speci men Type: BLOOD SPECIMEN Ordering Facility: [facility] Address: [address] [place] [address] Performed By: #### 5 7021-8 #### [facility] CLIA [id number] [place] [address] [place] Monocytes/100 WBC (Bld) 7.5 % Normal [facility] Comment on above: Order Comment: Speci men Type: BLOOD SPECIMEN Ordering Facility: [facility] Address: [address] [place] [address] Performed By: #### 5 7021-8 #### [facility] CLIA [id number] [address] [place] [address] [place] Neutrophils (Bld) [#/Vol] 9.38 10*3/uL High 1.45-7.50 [facility] Comment on above: Order Comment: Speci men Type: BLOOD SPECIMEN Ordering Facility: [facility] Address: [address] [place] [address] Performed By: #### 5 7021-8 #### [facility] CLIA [id number] [place] [address] [place] Neutrophils/100 WBC (Bld) 85.1 % Normal [facility] Comment on above: Order Comment: Speci men Type: BLOOD SPECIMEN Ordering Facility: [facility] Address: [address] [place] [address] Performed By: #### 5 7021-8 #### [facility] CLIA [id number] [place] [address] [place] Nucleated RBC (Bld) [#/Vol] 10*3/uL Normal <0.01 [facility] Comment on above: Order Comment: Speci men Type: BLOOD SPECIMEN Ordering Facility: [facility] Address: [address] [place] [address] Performed By: #### 5 7021-8 #### [facility] CLIA [id number] [address] [place] [address] [place] Nucleated RBC/100 WBC (Bld) [Ratio] 0.0 /100 WBC Normal [facility] Comment on above: Order Comment: Speci men Type: BLOOD SPECIMEN Ordering Facility: [facility] Address: [address] [place] [address] Performed By: #### 5 7021-8 #### [facility] CLIA [id number] [address] [place] [address] [place] Platelet mean volume (Bld) [Entitic vol] 10.6 fL Normal 9.0-12.7 [facility] Comment on above: Order Comment: Speci men Type: BLOOD SPECIMEN Ordering Facility: [facility] Address: [address] [place] [address] Performed By: #### 5 7021-8 #### [facility] CLIA [id number] [place] [address] [place] Platelets (Bld) [#/Vol] 159 10*3/uL Normal 150-400 [facility] Comment on above: Order Comment: Speci men Type: BLOOD SPECIMEN Ordering Facility: [facility] Address: [address] [place] [address] Performed By: #### 5 7021-8 #### [facility] CLIA [id number] [address] [place] [address] [place] RBC (Bld) [#/Vol] 3.10 10*6/uL Low 4.20-6.00 [facility] Comment on above: Order Comment: Speci men Type: BLOOD SPECIMEN Ordering Facility: [facility] Address: [address] [place] [address] Performed By: #### 5 7021-8 #### [facility] CLIA [id number] [place] [address] [place] WBC (Bld) [#/Vol] 11.02 10*3/uL High 3.70-11.00 [facility] Comment on above: Order Comment: Speci men Type: BLOOD SPECIMEN Ordering Facility: [facility] Address: [address] [place] [address] Performed By: #### 5 7021-8 #### [facility] CLIA [id number] [address] [place] [address] [place] CONSULT PROGon 07-12-2023 CONSULT PROG HNO ID: [id number] Author: Jaylene Correa DO Service: Nephrology Author Type: Physician Type: Consult Progress Note Filed: 07/12/2023 11:45 AM Note Text: INPATIENT PROGRESS NOTES NEPHROLOGY PATIENT NAME: Luis Manuel Duran JR SERVICE DATE: 07/12/2023 SERVICE TIME: 9:21 AM ASSESSMENT AND PLAN Mr. 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 Nephrology consulted for ESRD ESRD due to HTN on HD since 02/2022 -Schedule: MWF x 3.75 hours at [facility] [place] -Clinical Specialist: Dr. 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 On Tums/Ca Citrate. No need for Renvela/Auryxia -DEXA with osteopenia and low FRAX (2019) HTN/Volume status: -SBP 120-130s. On Lopressor/Norvasc/Lasix. -Echo with normal EF, mild AI/MR/LVH and moderate (2022) -CXR without CHF (2021) Anemia: -H/H stable within ESRD range -Iron N/A -Colonoscopy with mild tics (2008) -EGD with mild gastritis and hiatal hernia (2008, 2021) PLAN: -Seen on HD today per MWF schedule. UF 2 L as tolerated. -Using higher Ca bath with HD. 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 -Please don't discharge on Renvela/Auryxia now that he is on Ca supplements -Strict I/Os/Wt monitoring. -Daily weights -Dose meds for GFR 10ml/min NEPHROLOGY STAFF PHYSICIAN NOTE OF PERSONAL INVOLVEMENT IN CARE Portions of this note may have been copied from previous encounters and updated where applicable. I performed a substantive portion of the visit including a face to face assessment of the patient, reviewed the history AND physical, participated in the wilkinson components including discussion of the patient's care and medical management including Seen on HD - BP 118/5, 3Ca, 3K bath and UF goal 1L without edema on exam and Qb 350 via Rt forearm AVF Jaylene Correa D.O. Pager [phone] SUBJECTIVE: FEELS WELL/ NO CP/ NO SOB on RA. MEDICATIONS: Current Facility-Administered Medications Medication Dose Route Frequency metoprolol tartrate (short acting) 25 mg tab(s) (LOPRESSOR) 25 mg ORAL q 12 H amLODIPine 5 mg tab(s) (NORVASC) 5 mg ORAL DAILY pantoprazole DR 40 mg tab(s) (PROTONIX) 40 mg ORAL BEFORE BREAKFAST DAILY ibuprofen 600 mg tab(s) (MOTRIN) 600 mg ORAL q 6 H PRN acetaminophen 500 mg tab(s) (TYLENOL) 500 mg ORAL q 4 H PRN calcium carbonate 500 mg chewable tab(s) (TUMS) 500 mg ORAL q 1 H PRN benzocaine-menthol 1 Lozenge (CHLORASEPTIC) 1 Lozenge MUCOUS MEMBRANE (TOPICAL MOUTH AND THROAT) q 2 H PRN phenol 1 Pierre (CHLORASEPTIC) 1 Pierre MUCOUS MEMBRANE (TOPICAL MOUTH AND THROAT) q 2 H PRN ondansetron (PF) 4 mg injection (ZOFRAN) 4 mg INTRAVENOUS q 6 H PRN calcium citrate 950 mg tab(s) (CALCITRATE) 950 mg ORAL q 1 H atorvastatin 40 mg tab(s) (LIPITOR) 40 mg ORAL AT BEDTIME [START ON 07/13/2023] furosemide 80 mg tab(s) (LASIX) 80 mg ORAL EVERY LOY-WQP-EZD-SAT OBJECTIVE PHYSICAL EXAM: BP 130/56 Pulse 66 Temp 36.8 ?C (98.2 ?F) (Oral) Resp 14 Ht 171.5 cm (5' 7.5) Wt 78.7 kg (173 lb 8 oz) SpO2 97% BMI 26.77 kg/m? Intake/Output Summary (Last 24 hours) at 07/12/2023 0921 Last data filed at 07/11/2023 1136 Gross per 24 hour Intake 600 ml Output 5 ml Net 595 ml Constitutional: No acute distress, Responsive, and Normal habitus, coherently conversational, on RA. Ear, Nose, and Throat: Hearing normal, Lips normal, and Dentition normal hoarse voice (chronic) Neck: Trachea midline. No jugular venous distension, small bandage on midline neck Cardiovascular: Regular rate and rhythm. Respiratory: Normal respiratory effort. Lungs clear bilaterally. On RA. Abdomen: Soft, non-tender, non-distended. Normal bowel sounds. Musculoskeletal: No clubbing or cyanosis of digits. Neurologic: Normal sensation Psychiatric: Alert and oriented x self, place, time, and setting Permanent Vascular access: Right forearm AVF accessed. DATA: Most recent labs and Chest Xray reviewed. Recent Labs 07/12/23 0507 07/12/23 0503 07/11/23 1950 07/11/23 0826 WBC 11.02* -- -- -- HB 9.2* -- -- -- HCT 29.2* -- -- -- PLT 1 (more content not included)... Normal [facility] Magnesium SerPl-mCncon 07-12 Magnesium [Mass/Vol] 2.1 mg/dL Normal 1.7-2.3 [facility] Comment on above: Order Comment: Speci men Type: BLOOD SPECIMEN Ordering Facility: [facility] Address: [address] [place] [address] Performed By: #### 2 731-8 #### [facility] [id number] [address] [place] [address] [place] NURSING PROGon 07-12-2023 NURSING PROG HNO ID: [id number] Author: Dwayne Nobles RN Service: ? Author Type: Registered Nurse Type: Nursing Progress Note Filed: 07/12/2023 6:25 PM Note Text: Other: Discharge instructions are written and verbalized to patient and spouse. Both acknowledge understanding of all discharge instructions. 1810 Discharged via wheelchair with all personal belongings to private auto. Accompanied by [facility] NURSING PROG HNO ID: [id number] Author: Keshawn Rush RN Service: Dialysis Author Type: Registered Nurse Type: Nursing Progress Note Filed: 07/12/2023 1:09 PM Note Text: POST-TREATMENT BP 132/57 Pulse 70 Temp 36.8 ?C (98.2 ?F) (Oral) Resp 15 Ht 171.5 cm (5' 7.5) Wt 78.7 kg (173 lb 8 oz) SpO2 93% BMI 26.77 kg/m? Pain: 0/10 Net Fluid Removed: 1 liters End Treatment Time: 1215 Labs Drawn: none Fistual Needle: Pulled, bruit present with good thrill. Dressing applied. Instructions for dressing care provided. Intra-post dialysis symptoms: none Patient instructed to notify nurse of any bleeding or discharge from or pain at site. Patient transported back to room. Treatment Completed by Dialysis Nurse: Keshawn Rush RN SIGNATURE: Keshawn Rush RN PATIENT NAME: Luis Manuel Duran JR DATE: July 12, 2023 TIME: 1:08 PM [facility] NURSING PROG HNO ID: [id number] Author: Leah Cordova RN Service: Nursing Author Type: Registered Nurse Type: Nursing Progress Note Filed: 07/12/2023 8:06 AM Note Text: Dialysis Pt arrived to dialysis A[facility] and in stable condition. Reviewed consent, orders and Hep B status. Accessed pt's RAVF, with 16g needles, without issue, per protocol. UF goal 2L. Will continue to monitor. [facility] PTH-Intact SerPl-ncon 12-0 Parathyrin.intact [Mass/Vol] 260 pg/mL High 15-65 [facility] Comment on above: Order Comment: Speci men Type: BLOOD SPECIMEN Ordering Facility: [facility] Address: [address] [place] [address] Performed By: #### 2 731-8 #### [facility] CLIA [id number] [address] [place] [address] [place] Renal function 2000 panelon 07-12-2023 Albumin [Mass/Vol] 3.7 g/dL Low 3.9-4.[address] [facility] Comment on above: Order Comment: Speci men Type: BLOOD SPECIMEN Ordering Facility: [facility] Address: [address] [place] [address] Performed By: #### 2 4362-6 #### [facility] CLIA [id number] [place] [address] [place] Anion gap [Moles/Vol] 7 mmol/L Low 9-18 [facility] Comment on above: Order Comment: Speci men Type: BLOOD SPECIMEN Ordering Facility: [facility] Address: [address] [place] [address] Performed By: #### 2 4362-6 #### [facility] CLIA [id number] [place] [address] [place] Calcium [Mass/Vol] 9.0 mg/dL Normal 8.5-10.[address] [facility] [facility] Comment on above: Order Comment: Speci men Type: BLOOD SPECIMEN Ordering Facility: [facility] Address: [address] [place] [address] Performed By: #### 2 4362-6 #### [facility] CLIA [id number] [place] [address] [place] Chloride [Moles/Vol] 97 mmol/L Normal 97-105 [facility] Comment on above: Order Comment: Speci men Type: BLOOD SPECIMEN Ordering Facility: [facility] Address: [address] [place] [address] Performed By: #### 2 4362-6 #### [facility] CLIA [id number] [place] [address] [place] CO2 [Moles/Vol] 30 mmol/L Normal 22-30 [facility] Comment on above: Order Comment: Speci men Type: BLOOD SPECIMEN Ordering Facility: [facility] Address: [address] [place] [address] Performed By: #### 2 4362-6 #### [facility] CLIA [id number] [address] [place] [address] [place] Creatinine [Mass/Vol] 3.02 mg/dL High 0.73-1.22 [facility] Comment on above: Order Comment: Cory howard Type: BLOOD SPECIMEN Ordering Facility: [facility] Address: [address] [place] [address] Performed By: #### 2 4362-6 #### [facility] CLIA [id number] [address] [place] [address] [place] Creatinine and Glomerular filtration rate.predicted panel (S/P/Bld) 20 mL/min/1.73m??? Low >=60 [facility] Comment on above: Order Comment: Cory howard Type: BLOOD SPECIMEN Ordering Facility: [facility] Address: [address] [place] [address] Result Comment: Elena mated Glomerular Filtration Rate (eGFR) is calculated using the 2020 CKD-EPI creatinine equation. This equation utilizes serum creatinine, sex, and age as parameters. The creatinine assay has traceable calibration to isotope dilution-mass spectrometry. Refer to KDIGO guidelines for clinical interpretation. In patients with unstable renal function, e.g. those with acute kidney injury, the eGFR may not accurately reflect actual GFR. Performed By: #### 2 4362-6 #### [facility] CLIA [id number] [address] [place] [address] [place] Glucose [Mass/Vol] 104 mg/dL High 74-[address] [facility] Comment on above: Order Comment: Cory howard Type: BLOOD SPECIMEN Ordering Facility: [facility] Address: [address] [place] [address] Result Comment: The [place] Diabetes Association (ADA) provides guidance for cutoff values for fasting glucose and random glucose. The ADA defines fasting as no caloric intake for at least 8 hours. Fasting plasma glucose results between 100 to 125 mg/dL indicate increased risk for diabetes (prediabetes). Fasting plasma glucose results greater than or equal to 126 mg/dL meet the criteria for diagnosis of diabetes. In the absence of unequivocal hyperglycemia, results should be confirmed by repeat testing. In a patient with classic symptoms of hyperglycemia or hyperglycemic crisis, random plasma glucose results greater than or equal to 200 mg/dL meet the criteria for diagnosis of diabetes. Reference: Standards of Medical Care in Diabetes 2016, [place] [employer] Association. Diabetes Care. 2016.39(Suppl 1). Performed By: #### 2 4362-6 #### [facility] CLIA [id number] [address] [place] [address] [place] Phosphate [Mass/Vol] 3.0 mg/dL Normal 2.7-4.8 [facility] Comment on above: Order Comment: Speci men Type: BLOOD SPECIMEN Ordering Facility: [facility] Address: [address] [place] [address] Performed By: #### 2 4362-6 #### [facility] CLIA [id number] [address] [place] [address] [place] Potassium [Moles/Vol] 4.0 mmol/L Normal 3.7-5.1 [facility] Comment on above: Order Comment: Anai men Type: BLOOD SPECIMEN Ordering Facility: [facility] Address: [address] [place] [address] Performed By: #### 2 4362-6 #### [facility] CLIA [id number] [address] [place] [address] [place] Sodium [Moles/Vol] 134 mmol/L Low 136-[address] [facility] Comment on above: Order Comment: Anai men Type: BLOOD SPECIMEN Ordering Facility: [facility] Address: [address] [place] [address] Performed By: #### 2 4362-6 #### [facility] CLIA [id number] [address] [place] [address] [place] Urea nitrogen [Mass/Vol] 17 mg/dL Normal 9-24 [facility] Comment on above: Order Comment: Anai men Type: BLOOD SPECIMEN Ordering Facility: [facility] Address: [address] [place] [address] Performed By: #### 2 4362-6 #### [facility] CLIA [id number] [address] [place] [address] [place] Albumin [Mass/Vol] 3.6 g/dL Low 3.9-4.[address] [facility] Comment on above: Order Comment: Speci men Type: BLOOD SPECIMEN Ordering Facility: [facility] Address: [address] [place] [address] Performed By: #### 2 731-8 #### [facility] CLIA [id number] [place] [address] [place] Anion gap [Moles/Vol] 14 mmol/L Normal 9-18 [facility] Comment on above: Order Comment: Speci men Type: BLOOD SPECIMEN Ordering Facility: [facility] Address: [address] [place] [address] Performed By: #### 2 731-8 #### [facility] CLIA [id number] [place] [address] [place] Calcium [Mass/Vol] 8.5 mg/dL Normal 8.5-10.[address] [facility] Comment on above: Order Comment: Speci men Type: BLOOD SPECIMEN Ordering Facility: [facility] Address: [address] [place] [address] Performed By: #### 2 731-8 #### [facility] CLIA [id number] [address] [place] [address] [place] Chloride [Moles/Vol] 93 mmol/L Low 97-105 [facility] Comment on above: Order Comment: Speci men Type: BLOOD SPECIMEN Ordering Facility: [facility] Address: [address] [place] [address] Performed By: #### 2 731-8 #### [facility] CLIA [id number] [place] [address] [place] CO2 [Moles/Vol] 28 mmol/L Normal 22-30 [facility] Comment on above: Order Comment: Speci men Type: BLOOD SPECIMEN Ordering Facility: [facility] Address: [address] [place] [address] Performed By: #### 2 731-8 #### [facility] CLIA [id number] [place] [address] [place] Creatinine [Mass/Vol] 7.43 mg/dL High 0.73-1.22 [facility] Comment on above: Order Comment: Cory howard Type: BLOOD SPECIMEN Ordering Facility: [facility] Address: [address] [place] [address] Performed By: #### 2 731-8 #### [facility] CLIA [id number] [address] [place] [address] [place] Creatinine and Glomerular filtration rate.predicted panel (S/P/Bld) 7 mL/min/1.73m??? Low >=60 [facility] Comment on above: Order Comment: Cory howard Type: BLOOD SPECIMEN Ordering Facility: [facility] Address: [address] [place] [address] Result Comment: Elena mated Glomerular Filtration Rate (eGFR) is calculated using the 2020 CKD-EPI creatinine equation. This equation utilizes serum creatinine, sex, and age as parameters. The creatinine assay has traceable calibration to isotope dilution-mass spectrometry. Refer to KDIGO guidelines for clinical interpretation. In patients with unstable renal function, e.g. those with acute kidney injury, the eGFR may not accurately reflect actual GFR. Performed By: #### 2 731-8 #### [facility] CLIA [id number] [address] [place] [address] [place] Glucose [Mass/Vol] 119 mg/dL High 74-[address] [facility] Comment on above: Order Comment: Cory howard Type: BLOOD SPECIMEN Ordering Facility: [facility] Address: [address] [place] [address] Result Comment: The [place] Diabetes Association (ADA) provides guidance for cutoff values for fasting glucose and random glucose. The ADA defines fasting as no caloric intake for at least 8 hours. Fasting plasma glucose results between 100 to 125 mg/dL indicate increased risk for diabetes (prediabetes). Fasting plasma glucose results greater than or equal to 126 mg/dL meet the criteria for diagnosis of diabetes. In the absence of unequivocal hyperglycemia, results should be confirmed by repeat testing. In a patient with classic symptoms of hyperglycemia or hyperglycemic crisis, random plasma glucose results greater than or equal to 200 mg/dL meet the criteria for diagnosis of diabetes. Reference: Standards of Medical Care in Diabetes 2016, [place] [employer]. Diabetes Care. 2016.39(Suppl 1). Performed By: #### 2 731-8 #### [facility] CLIA [id number] [address] [place] [address] [place] Phosphate [Mass/Vol] 4.8 mg/dL Normal 2.7-4.8 [facility] Comment on above: Order Comment: Speci men Type: BLOOD SPECIMEN Ordering Facility: [facility] Address: [address] [place] [address] Performed By: #### 2 731-8 #### [facility] CLIA [id number] [address] [place] [address] [place] Potassium [Moles/Vol] 4.7 mmol/L Normal 3.7-5.1 [facility] Comment on above: Order Comment: Cory men Type: BLOOD SPECIMEN Ordering Facility: [facility] Address: [address] [place] [address] Performed By: #### 2 731-8 #### [facility] CLIA [id number] [address] [place] [address] [place] Sodium [Moles/Vol] 135 mmol/L Low 136-[address] [facility] Comment on above: Order Comment: Anai anita Type: BLOOD SPECIMEN Ordering Facility: [facility] Address: [address] [place] [address] Performed By: #### 2 731-8 #### [facility] CLIA [id number] [address] [place] [address] [place] Urea nitrogen [Mass/Vol] 59 mg/dL High 9-24 [facility] Comment on above: Order Comment: Anai men Type: BLOOD SPECIMEN Ordering Facility: [facility] Address: [address] [place] [address] Performed By: #### 2 731-8 #### [facility] CLIA [id number] [address] [place] [address] [place] ANES POSTPROC EVALon 023 ANES POSTPROC EVAL HNO ID: [id number] Author: Virginie Manuel MD Service: Anesthesiology Author Type: Physician Type: Anesthesia Postprocedure Evaluation Filed: 07/11/2023 1:27 PM Note Text: POST ANESTHESIA EVALUATION NOTE : 1940 Procedure Summary Date: 07/11/23 Room / Location: [place] [address] / [facility] Anesthesia Start: 933 Anesthesia Stop: 1158 Procedures: EXPLORATION PARATHYROID (Thyroid) PARATHYROIDECTOMY (Bilateral: Thyroid) TRANSPLANT PREP PARATHYROID FOR CRYOPRESERVATION (Bilateral: Neck) Diagnosis: Secondary renal hyperparathyroidism (HCC) (Secondary renal hyperparathyroidism (HCC) [N25.81]) Surgeons: Yaya Sun MD Responsible Provider: Virginie Manuel MD Anesthesia Type: general ASA Status: 3 Anesthesia Type: general Airway Type: ETT Last Vitals Vitals Value Taken Time BP 125/61 07/11/23 1324 Temp 36.8 ?C (98.2 ?F) 07/11/23 1324 Pulse 96 07/11/23 1324 Resp 16 07/11/23 1324 SpO2 94 % 07/11/23 1324 Post Anesthesia Patient Status Patient Evaluation: PACU. PACU/ICU Patient Condition: stable. Anticipated Disposition: inpatient floor planned admission. Neurological Status: aware and responsive. Pulmonary Status: breathing comfortably on room air Airway Control: returned to baseline unsupported. Cardiovascular Status: stable. Pain Management: clinically adequate - multimodal analgesia pain management approach Postoperative Hydration: acceptable. Intraoperative Events: no significant anesthesia events Recommendation: continue current plan of care and further care per PACU/ICU/floor team. Anesthesia Observations No Documentation SIGNATURE: Virginie Manuel MD PATIENT NAME: Luis Manuel Duran JR DATE: July 11, 2023 TIME: 1:27 PM CSN: [id number] [facility] ANES PRE-OPon 07-11-2023 ANES PRE-OP HNO ID: [id number] Author: Virginie Manuel MD Service: Anesthesiology Author Type: Physician Type: Anesthesia Preprocedure Evaluation Filed: 07/11/2023 8:14 AM Note Text: ANESTHESIOLOGY DAY OF SURGERY NOTE : 1940 Procedure Information Date/Time: 07/11/23909 Procedure: EXPLORATION PARATHYROID (Thyroid) - Nerve monitor needed Location: [facility] OR07 / [facility] OR Surgeons: Yaya Sun MD Estimated body mass index is 26.85 kg/m? as calculated from the following: Height as of 06/25/23: 171.5 cm (5' 7.5). Weight as of 06/25/23: 78.9 kg (174 lb). Most recent hematocrit and potassium results: HCT 32.7 06/25/2023 Potassium 5.5 06/25/2023 Relevant Problems CARDIO (+) Chronic diastolic congestive heart failure (HCC) (+) Coronary artery disease involving [place] coronary artery of [place] heart without angina pectoris (+) Essential hypertension, benign (+) Mild aortic stenosis GI (+) GERD without esophagitis -RENAL (+) CKD (chronic kidney disease) stage 4, GFR 15-29 ml/min (HCC) NEURO-PSYCH (+) History of COVID-19 (+) History of non-ST elevation myocardial infarction (NSTEMI) (+) Personal history of colonic polyps PULMONARY (+) History of COVID-19 I - PHYSICAL EVALUATION AIRWAY Patient intubated: No. Tracheostomy tube not present Mallampati: II. TM distance: >3 FB. Neck ROM: full ROM without neurological symptoms. Mouth opening: adequate. Short neck: no. Thick neck: no DENTAL Dental findings: teeth intact. Additional exam findings: no II - ANESTHESIA PLAN ASA Score: 3 Anesthetic Plan: general Airway type: ETT NPO Status: adequate Anesthetic plan additional comments: jessi breath sounnds normal heart sounds. Beta Ekaterina Monitoring Plan Monitoring plan: Standard ASA. Post Procedure Analgesic Plan Postoperative analgesic plan: parenteral or oral opioids and multimodal analgesia. Patient / Surrogate agrees to blood products: yes DNR status not reviewed with patient and/or family prior to surgery. Significant changes in the patient condition since the History and Physical, not otherwise documented in primary service progress note: no. Potential Anesthesia issues that may suggest increased risk of complications or contraindication to planned procedure: none. Vitals Value Taken Time BP 168/74 07/11/23 0800 Pulse 91 07/11/23 0800 Resp 18 07/11/23 0800 Temp 37.1 ?C (98.7 ?F) 07/11/23 0800 SpO2 98 % 07/11/23 0800 Facility-Administered Medications as of 07/11/2023 Medication Dose Route Frequency - lidocaine (PF) 10 mg/mL (1 %) 1-2 mg injection (XYLOCAINE) 0.1-0.2 mL INTRADERMAL PRN - NaCl 0.9% iv flush bag 20 mL INTRAVENOUS PRN - NaCl 0.9% iv infusion 50 mL/hr INTRAVENOUS CONTINUOUS Outpatient Medications as of 07/11/2023 Medication Sig - sevelamer carbonate (RENVELA) 800 mg tablet TAKE 1 TABLET BY MOUTH WITH EVERY MEAL THREE TIMES A DAY - amLODIPine (NORVASC) 5 mg tablet Take 1 tablet by mouth once daily. - atorvastatin (LIPITOR) 40 mg tablet Take 1 tablet by mouth once daily. For cholesterol. - furosemide (LASIX) 80 mg tablet 1 tablet once daily. Per Cardio, Marc - metoprolol tartrate, short acting, (LOPRESSOR) 50 mg tablet 0.5 tablets twice daily. - pantoprazole DR (PROTONIX) 40 mg tablet Take 40 mg by mouth once daily. Take one tablet daily - [] sulfamethoxazole-trimethopr im (BACTRIM) 400-80 mg per tablet Take 1 tablet by mouth once daily for 7 days. Take after dialysis - cinacalcet (SENSIPAR) 30 mg tablet Take 1 tablet by mouth. (Patient not taking: Reported on 06/25/2023) - ferric citrate (AURYXIA) 210 mg iron tab Take 1 tablet by mouth. (Patient not taking: Reported on 06/25/2023) - methoxy peg-epoetin beta (MIRCERA INJECTION) 30 mcg. (Patient not taking: Reported on 06/25/2023) - methoxy peg-epoetin beta (MIRCERA INJECTION) 60 mcg. (Patient not taking: Reported on 06/25/2023) - nitroglycerin sublingual (NITROSTAT) 0.4 mg SL tablet Dissolve 1 tablet under the tongue every 5 minutes as needed. - aspirin, enteric coated (ASPIRIN, ENTERIC COATED) 81 mg EC tablet Take 1 tablet by mouth once daily. I have interviewed and examined the patient. I have reviewed the medical record and/or the pre-anesthesia evaluation, pertinent labs, and test results. This contains updated information obtained within 48 hours of Surgery/Procedure. SIGNATURE: Virginie Manuel MD PATIENT NAME: Luis Manuel Duran JR DATE: July 11, 2023 TIME: 8:13 AM CSN: [id number] [facility] BRIEF OP NOTon 07-11-2023 BRIEF OP NOT HNO ID: [id number] Author: Rj Summers MD Service: Endocrine Surgery Author Type: Resident Type: Brief Op Note Filed: 07/11/2023 12:13 PM Note Text: ENDOCRINE SURGERY BRIEF OP NOTE LOG ID: [id number] Surgery/Procedure Date: 07/11/2023 Incision/Procedure Start Time: 9:58 AM Incision Close/Procedure End Time: 11:40 AM Surgeon(s) and Parts Finisher(s): Surgeon(s) and Role: * Yaya Sun MD - Primary * Rj Summers MD - Resident - Assisting No Additional Staff Procedure(s): Parathyroidectomy Cryopreservation Anesthesia: General Findings: - Right lower, Left upper, and left lower parathyroids removed. Frozen hypercellular - Small amount of right lower parathyroid tissue healthy looking left in place - Small amount of left upper parathyroid tissue left due to proximity of recurrent laryngeal nerve - Adequate hemostasis Please see operative report for full details Drains: None IV Fluids: Per anesthesia report Estimated Blood Loss: 10 cc Estimated Urine Output: Per anesthesia report Specimens: ID Type Source Tests Collected by Time Destination 1 : Pre PTH Blood BLOOD INTRAOPERATIVE PTH Yaya Sun MD 07/11/2023 10:53 AM A : right lower totally excised,portion submitted Tissue PARATHYROID GLAND RIGHT SURGICAL PATHOLOGY Yaya Sun MD 07/11/2023 10:55 AM B : biopsy left lower with portion submitted Tissue PARATHYROID GLAND LEFT SURGICAL PATHOLOGY Yaya Sun MD 07/11/2023 11:01 AM C : left upper totally excised,portion submitted [id number] Tissue PARATHYROID GLAND LEFT SURGICAL PATHOLOGY Yaya Sun MD 07/11/2023 11:22 AM Wound Classification: Class 1, operative wound clean, non-traumatic, with no inflammation encountered, no break in technique, gastrointestinal and genitor-urinary tracts not entered Complications: None Pre-Op/Pre-Procedure Diagnosis: Pre-Op Diagnosis Codes: * Secondary renal hyperparathyroidism (HCC) [N25.81] Post-Op/Post-Procedure Diagnosis: Same SIGNATURE: Rj Herrera MD PATIENT NAME: Luis Manuel Duran JR DATE: July 11, 2023 TIME: 12:09 PM PAGER/CONTACT #: [phone] [facility] CONSULTon 07-11-2023 CONSULT HNO ID: [id number] Author: Jaylene Correa DO Service: Nephrology Author Type: Physician Type: Consults Filed: 07/11/2023 6:03 PM Note Text: CONSULT: NEPHROLOGY SERVICE SERVICE DATE: 07/11/2023 SERVICE TIME: 12:26 PM REASON FOR CONSULT: I am asked to see this patient in consultation for my opinion regarding ESRD. My recommendations will be communicated by way of shared medical record. REQUESTING PHYSICIAN: Dr. Sun PRIMARY CARE PHYSICIAN: Julio Licea MD Subjective CHIEF COMPLAINT: ESRD HPI: Mr. Duran is a 82 year old male with PMHx of ESRD on HD (MWF at [facility]), BPH, HTN, GERD, HPT, TIA presented to for scheduled tertiary parathyroidectomy on 07/11/23. S/p Right lower, Left upper, and left lower parathyroids removed. He was evaluated for preoperative evaluation to rule out vocal cord paralysis which he had from previous remote parathyroidectomy. He has end stage renal disease on dialysis, last full dialysis was on 07/10. Renal consulted for dialysis management. ESRD Etiology: HTN Date of first HD: February 2022 Current HD unit: [facility] Clinical Specialist: Dr. Nelson Zayas Date of last dialysis: 07/10/23 DW 77.8 kg x 3.75hr Qb 400/800 Hypo-allergic Dialyzer: 160 Optiflux Duration (when): F Location (where): Hemodialysis Vascular Access: Rt forearm AVF (placed 02/08/2022) Severity (ex: creat 4.5, BP 200/100): K 4.4 Quality (ex: sharp, dull): N/a Context (ex: activity at onset or related to condition): ESRD Timing (ex: continuous, intermittent): Continuous Modifying factors (ex: medications, interventions): Dialysis Associated signs AND symptoms (ex: edema, SOB): No S/s PAST MEDICAL HISTORY Diagnosis Date Advance directive discussed with patient 12/15/2021 Discussed 12/2021 Anemia of chronic disease 10/15/2013 ASHD (arteriosclerotic heart disease) 03/06/2018 Benign essential tremor 07/03/2010 BPH with obstruction/lower urinary tract symptoms 08/01/2005 Chronic diastolic congestive heart failure (HCC) 12/15/2021 seeing cardio CKD (chronic kidney disease) stage 4, GFR 15-29 ml/min ([facility]) 03/04/2017 COVID-19 virus infection 05/29/2021 05/27/2021 Diaphragmatic hernia without mention of obstruction or gangrene Hiatal hernia Elevated PSA 03/11/2019 Esophagitis, unspecified Essential hypertension, benign Ex-smoker 12/26/2020 Started age 18 up to 1.5 PPD and quit at age 35. 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 deficiency ([facility]) 10/15/2013 Living will on file 12/15/2021 DPA: Shea () Mild aortic stenosis 11/27/2021 Seeing Cardio Mixed hyperlipidemia 09/03/2013 Overweight (BMI 25.0-29.9) Parathyroid adenoma 05/27/2013 parathyroidectomy 05/27/13 Personal history of colonic polyps Colon polyps Primary hyperparathyroidism ([facility]) 03/04/2017 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: 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 TIA (transient ischemic attack) 06/2010 Ulcer of esophagus without bleeding Unspecified transient cerebral ischemia WITH HEMIPHORESIS Vitamin D deficiency 10/15/2013 PAST SURGICAL HISTORY Procedure Laterality Date BX/EXC LYMPH NODE OPEN SUPERFICIAL COLONOSCOPY 12/22/2019 COLONOSCOPY FLX DX W/COLLJ SPEC WHEN PFRMD 08/2000 Colonoscopy COLONOSCOPY FLX DX W/COLLJ SPEC WHEN PFRMD 10/19/2008 EGD TRANSORAL BIOPSY SINGLE/MULTIPLE 10/19/2008 ESOPHAGOGASTRODUODENOSCOPY TRANSORAL DIAGNOSTIC ESOPHAGOGASTRODUODENOSCOPY TRANSORAL DIAGNOSTIC 12/22/[address] Marcial LAPAROSCOPIC HERNIA REPAIR Right 05/21/2018 recurrent incarcerated direct right inguinal hernia PARATHYROIDECTOMY/EXPLORATI ON PARATHYROIDS 05/27/2013 Parathyroid adenoma PAST SURGICAL HISTORY OF 01/20/2021 supraumbilical ventral hernia RPR 1ST INGUN HRNA AGE 5 YRS/> REDUCIBLE Hernia repair, inguinal BILATERAL FAMILY HISTORY Problem Relation Age of Onset Colon Cancer Mother Colon Cancer Father Arthritis Mother Heart Father SD * 2 Prostate Cancer Brother Hypertension Brother None Brother Social History Tobacco Use Smoking status: Former Types: Cigarettes Smokeless tobacco: Never Tobacco comments: quit 1976 Vaping Use Vaping Use: Never used Substance Use Topics Alcohol use: Yes Alcohol/week: 1.0 standard drink of alcohol Types: 1 Standard drinks or equivalent per week Drug use: No MEDICATIONS: Prior to Admission Medications sevelamer carbonate (RENVELA) 800 mg tablet, TAKE 1 TABLET BY MOUTH WITH EVERY MEAL THREE TIMES A DAY, Disp: , Rfl: , 07/10/2023 amLODIPine (NORVASC) 5 mg tablet, Take 1 tablet by mouth once daily., Disp: 90 tablet, Rfl: 1, 07/10/2023 atorvastatin (LIPITOR) 40 mg tablet, Take 1 tablet by mouth once daily. For cholester (more content not included)... Normal [facility] HBV core Ab Ser Qlon 023 HBV core Ab Ql (S) Negative Normal Negative [facility] [facility] Comment on above: Order Comment: Speci men Type: BLOOD SPECIMEN Ordering Facility: [facility] Address: [address] [place] [address] Result Comment: No e vidence of current or past infection with Hepatitis B virus. Should recent infection be suspected, repeat testing may be considered 3-4 weeks after this draw. Performed By: #### 5 195-3, 43476-0, 99560-9 #### [facility] CLIA [id number] [address] [place] [address] [place] HBV surface Ag Ser Qlon 06-14 HBV surface Ag Ql (S) Negative Normal Negative [facility] Comment on above: Order Comment: Speci men Type: BLOOD SPECIMEN Ordering Facility: [facility] Address: [address] [place] [address] Performed By: #### 5 195-3, 01918-2, 70862-9 #### [facility] CLIA [id number] [address] [place] [address] [place] HCV Ab Ser Qlon 07-11-2023 HCV Ab Ql (S) Negative Normal Negative [facility] Comment on above: Order Comment: Speci men Type: BLOOD SPECIMEN Ordering Facility: [facility] Address: [address] [place] [address] Result Comment: The result suggests no evidence of active infection with Hepatitis C virus. Should recent infection be suspected, repeat testing may be considered 4-6 weeks after this draw. Performed By: #### 2 731-8 #### [facility] CLIA [id number] [place] [address] [place] HIV 1+2 Ab IA Qlon 3 HIV 1 and 2 Ab IA.rapid Nom [facility] Comment on above: Order Comment: Speci men Type: BLOOD SPECIMEN Ordering Facility: [facility] Address: [address] [place] [address] Result Comment: Test not indicated. Performed By: #### 5 195-3, 67623-7, 59473-0 #### [facility] CLIA [id number] [address] [place] [address] [place] HIV 1+2 Ab+HIV1 p24 Ag IA Ql Non-Reactive Normal Nonreactive [facility] Comment on above: Order Comment: Speci men Type: BLOOD SPECIMEN Ordering Facility: [facility] Address: [address] [place] [address] Performed By: #### 5 195-3, 90794-1, 19546-1 #### [facility] CLIA [id number] [address] [place] [address] [place] HIV immunoassay testing algorithm interpretation (S/P/Bld) [Interp] [facility] Comment on above: Order Comment: Speci men Type: BLOOD SPECIMEN Ordering Facility: [facility] Address: [address] [place] [address] Result Comment: No e vidence of HIV-1 or HIV-2 infection. Should recent infection be suspected, repeat testing may be considered 2-3 weeks after this draw. [place] Rev. Code 3701.243(E): This information has been disclosed to you from confidential records protected from disclosure by state law. ???You shall make no further disclosure of this information without the specific, written, and informed release of the individual to whom it pertains or as otherwise permitted by state law. A general authorization for the release of medical or other information is not sufficient for the purpose of the release of HIV test results or diagnoses. Performed By: #### 5 195-3, 47646-1, 57974-5 #### [facility] CLIA [id number] [address] [place] [address] [place] INTRAOPERATIVE PTHon 023 INTRAOPERATIVE PTH 1690 pg/mL High 15-[address] [facility] Comment on above: Order Comment: Speci men Type: BLOOD SPECIMEN Ordering Facility: [facility] Address: [address] [place] [address] Performed By: #### R IPTH #### [facility] CLIA [id number] [address] [place] [address] [place] Magnesium SerPl-mCncon 07-11 Magnesium [Mass/Vol] 2.0 mg/dL Normal 1.7-2.3 [facility] Comment on above: Order Comment: Speci men Type: BLOOD SPECIMEN Ordering Facility: [facility] Address: [address] [place] [address] Performed By: #### 2 4362-6, 17238-1 #### [facility] CLIA [id number] [address] [place] [address] [place] NURSING PROGon 07-11-2023 NURSING PROG HNO ID: [id number] Author: Garett Hsieh RN Service: ? Author Type: Registered Nurse Type: Nursing Progress Note Filed: 07/12/2023 1:14 AM Note Text: Patient medicated with lozenge as ordered for complaints of sore throat, see MAR. Neck incision flat, clean,dry, and intact. Patient swallowing without difficulty. HOB elevated. Assessment complete and documented in NPR. Instructed patient to call for assist with mobility. Pt verbalized understanding. Call light within reach. Normal [facility] OPERATIVE NOon 07-11-2023 OPERATIVE NO HNO ID: [id number] Author: Yaya Sun MD Service: Endocrine Surgery Author Type: Physician Type: Operative Report Filed: 07/14/2023 8:28 AM Note Text: [facility] - Operative Report LUIS MANUEL DURAN : 1940 AGE: 82. SEX: M PATIENT TYPE: A HOSP SVC: ENDOCRINE ELISE LOCATION: [facility] ATTENDING PHYSICIAN: Yaya Sun MD CSN NUMBER: [id number] DATE OF SURGERY/PROCEDURE: 07/11/2023 INCISION/PROCEDURE START TIME: 0958. INCISION CLOSE/PROCEDURE END TIME: Closure with dressing applied time 1140. PREOPERATIVE DIAGNOSIS: Tertiary hyperparathyroidism, end-stage renal disease. POSTOPERATIVE DIAGNOSIS: Tertiary hyperparathyroidism, end-stage renal disease. SURGEON: Yaya Sun MD BOOSTER PLANT OPERATOR: Rj Herrera MD SURGERY/PROCEDURE: Two and half gland parathyroidectomy, intravenous sampling for parathyroid hormone levels, intraoperative ultrasound, and cryopreservation of parathyroid tissue. ANESTHESIA: General. [employer] PLANT OPERATOR SURGEON: Rj Herrera MD. OPERATIVE INDICATION: This is an 82-year-old male patient who is currently on dialysis for end-stage renal disease. Prior to being on dialysis, about 10 years ago, he underwent a focal neck exploration with an excision of a right-sided parathyroid gland. The specimen was labeled as the right lower parathyroid gland, however, review of his operative note as well as imaging studies, this was most likely a descended right upper parathyroid gland. Since being on dialysis, he has had uncontrolled hyperparathyroidism despite being on maximal medical management. Therefore, he is being taken to the operating room for a parathyroidectomy at this point. The indications, alternatives, risks, and benefits of the procedure have been explained to the patient and informed consent was obtained. Preoperative laryngoscopy demonstrated normal vocal cord movements bilaterally. OPERATIVE FINDING: Intraoperative ultrasound was performed. This demonstrated a thyroid gland that was overall normal in size with fine background echogenicity. A few subcentimeter thyroid nodules were seen, overall unremarkable. The right lower parathyroid gland was not clearly seen, the left upper and left lower parathyroid glands were both identified in their expected location. Benign-appearing lymph nodes were seen along the jugular chain bilaterally. Bilateral central neck exploration was performed, starting from the left side first. There was moderate amount of adhesion present in the midline and extending to both lower central neck. In addition, the exposure for the central neck were difficult due to patient's lack of neck hyperextension. We were able to identify both of the left-sided parathyroid glands and they were both enlarged and hypervascular. We then went over to the right central neck and was able to find an enlarged and hypervascular right lower parathyroid gland immediately below the right thyroid lobe. I did not search within the posterior aspect of the right thyroid lobe. The left lower parathyroid gland has a normal parathyroid portion in addition to the large adenoma. Therefore, the left lower parathyroid gland was excised except the normal parathyroid portion. Prior to excision of any parathyroid gland, the pre-excision PTH level was drawn from the right internal jugular vein. The right lower parathyroid gland was first excised in its entirety and measured 20 x 10 x 7 mm. The adenomatous portion of the left lower parathyroid gland measured 20 x 12 x 5 mm. A medium titanium clip was placed on the distal and of the normal left lower parathyroid gland. We then proceeded to excise the left upper parathyroid gland and this was fairly stuck into the central neck. Careful mobilization revealed the left recurrent laryngeal nerve to be traversing in the posterior aspect of the left upper parathyroid gland. This was carefully isolated away from the parathyroid gland. Due to the close proximity of the left upper parathyroid gland to the recurrent laryngeal nerve, a 5 mm portion of the left upper parathyroid gland tissue was left in order to preserve the nerve. The left upper parathyroid gland measured 20 x 17 x 8 mm. The pre-excision PTH level was 1690, the post-excision PTH level was 324. Cryopreservation of the left lower and the right lower parathyroid tissue was performed on the back table. The patient tolerated the procedure without any problem. DESCRIPTION OF PROCEDURE: OPERATIVE PROCEDURE: The patient was taken to the operating room and placed upon the table in a supine position. After induction of general endotracheal anesthesia, beanbag support was used to elevate the thoracic spine. The neck was gently hyperextended. Neck ultrasonography was performed using an [employer] Alpha 7 ultrasound machine with high-frequency linear array small parts transducer. The neck was sterilely prepped and draped. His previ (more content not included)... Normal [facility] POTASSIUM BLDon 07-11-2023 Potassium [Moles/Vol] 4.4 mmol/L Normal 3.7-5.1 [facility] Comment on above: Order Comment: Speci men Type: BLOOD SPECIMEN Ordering Facility: [facility] Address: [address] [place] [address] Performed By: #### K 1 #### [facility] [id number] [address] [place], [place] [id number] [place] [facility] Parathyrin.intact [Mass/Vol] 324 pg/mL High 15-65 [facility] Comment on above: Order Comment: Speci men Type: BLOOD SPECIMEN Ordering Facility: [facility] Address: [address] [place] [address] Performed By: #### 2 731-8 #### [facility] [id number] [address] [place] [address] [place] Phosphate SerPl-ncon 07-11 Phosphate [Mass/Vol] 5.1 mg/dL High 2.7-4.8 [facility] Comment on above: Order Comment: Speci men Type: BLOOD SPECIMEN Ordering Facility: [facility] Address: [address] [place] [address] Result Comment: Resu lt rechecked. Performed By: #### 2 731-8 #### [facility] [id number] [address] [place] [address] [place] Renal function 2000 panelon 07-11-2023 Albumin [Mass/Vol] 3.7 g/dL Low 3.9-4.[address] [facility] Comment on above: Order Comment: Speci men Type: BLOOD SPECIMEN Ordering Facility: [facility] Address: [address] [place] [address] Performed By: #### 2 731-8 #### [facility] [id number] [address] [place] [address] [place] Anion gap [Moles/Vol] 17 mmol/L Normal 9-18 [facility] Comment on above: Order Comment: Speci men Type: BLOOD SPECIMEN Ordering Facility: [facility] Address: [address] [place] [address] Performed By: #### 2 731-8 #### [facility] CLIA [id number] [address] [place] [address] [place] Calcium [Mass/Vol] 9.4 mg/dL Normal 8.5-10.[address] [facility] Comment on above: Order Comment: Speci men Type: BLOOD SPECIMEN Ordering Facility: [facility] Address: [address] [place] [address] Performed By: #### 2 731-8 #### [facility] CLIA [id number] [place] [address] [place] Chloride [Moles/Vol] 95 mmol/L Low 97-105 [facility] Comment on above: Order Comment: Speci men Type: BLOOD SPECIMEN Ordering Facility: [facility] Address: [address] [place] [address] Performed By: #### 2 731-8 #### [facility] CLIA [id number] [address] [place] [address] [place] CO2 [Moles/Vol] 26 mmol/L Normal 22-30 [facility] Comment on above: Order Comment: Speci men Type: BLOOD SPECIMEN Ordering Facility: [facility] Address: [address] [place] [address] Performed By: #### 2 731-8 #### [facility] CLIA [id number] [address] [place] [address] [place] Creatinine [Mass/Vol] 6.69 mg/dL High 0.73-1.22 [facility] Comment on above: Order Comment: Speci men Type: BLOOD SPECIMEN Ordering Facility: [facility] Address: [address] [place] [address] Performed By: #### 2 731-8 #### [facility] CLIA [id number] [address] [place] [address] [place] Creatinine and Glomerular filtration rate.predicted panel (S/P/Bld) 8 mL/min/1.73m??? Low >=60 [facility] Comment on above: Order Comment: Speci men Type: BLOOD SPECIMEN Ordering Facility: [facility] Address: [facility] [place] [address] Result Comment: Elena mated Glomerular Filtration Rate (eGFR) is calculated using the 2020 CKD-EPI creatinine equation. This equation utilizes serum creatinine, sex, and age as parameters. The creatinine assay has traceable calibration to isotope dilution-mass spectrometry. Refer to KDIGO guidelines for clinical interpretation. In patients with unstable renal function, e.g. those with acute kidney injury, the eGFR may not accurately reflect actual GFR. Performed By: #### 2 731-8 #### [facility] CLIA [id number] [address] [place] [address] [place] Glucose [Mass/Vol] 178 mg/dL High 74-[address] [facility] Comment on above: Order Comment: Cory howard Type: BLOOD SPECIMEN Ordering Facility: [facility] Address: [address] [place] [address] Result Comment: The [place] [employer] (ADA) provides guidance for cutoff values for fasting glucose and random glucose. The ADA defines fasting as no caloric intake for at least 8 hours. Fasting plasma glucose results between 100 to 125 mg/dL indicate increased risk for diabetes (prediabetes). Fasting plasma glucose results greater than or equal to 126 mg/dL meet the criteria for diagnosis of diabetes. In the absence of unequivocal hyperglycemia, results should be confirmed by repeat testing. In a patient with classic symptoms of hyperglycemia or hyperglycemic crisis, random plasma glucose results greater than or equal to 200 mg/dL meet the criteria for diagnosis of diabetes. Reference: Standards of Medical Care in Diabetes 2016, [place] [employer] Association. Diabetes Care. 2016.39(Suppl 1). Performed By: #### 2 731-8 #### [facility] [place] [id number] [address] [place] [address] [place] Phosphate [Mass/Vol] 4.6 mg/dL Normal 2.7-4.8 [facility] Comment on above: Order Comment: Cory howard Type: BLOOD SPECIMEN Ordering Facility: [facility] Address: [address] [place] [address] Performed By: #### 2 731-8 #### [facility] CLIA [id number] [address] [place] [address] [place] Potassium [Moles/Vol] 4.4 mmol/L Normal 3.7-5.1 [facility] Comment on above: Order Comment: Speci men Type: BLOOD SPECIMEN Ordering Facility: [facility] Address: [address] [place] [address] Performed By: #### 2 731-8 #### [facility] CLIA [id number] [address] [place] [address] [place] Sodium [Moles/Vol] 138 mmol/L Normal 136-[address] [facility] Comment on above: Order Comment: Speci men Type: BLOOD SPECIMEN Ordering Facility: [facility] Address: [address] [place] [address] Performed By: #### 2 731-8 #### [facility] CLIA [id number] [place] [address] [place] Urea nitrogen [Mass/Vol] 50 mg/dL High 9-24 [facility] Comment on above: Order Comment: Speci men Type: BLOOD SPECIMEN Ordering Facility: [facility] Address: [address] [place] [address] Performed By: #### 2 731-8 #### [facility] CLIA [id number] [address] [place] [address] [place] SURGICAL PATHOLOGYon 023 CASE REPORT Normal [facility] Comment on above: Order Comment: Speci men Type: BLOOD SPECIMEN Ordering Facility: [facility] Address: [address] [place] [address] Result Comment: Surg ical Pathology Report Case: [id number] Authorizing Provider: Yaya Sun MD Collected: 07/11/2023 10:55 AM Ordering Location: [facility] Surgery Received: 07/11/2023 11:05 AM Pathologist: Gio Funk MD, PhD Intraop: Emre Lang MD Specimens: A) - PARATHYROID GLAND RIGHT, right lower totally excised,portion submitted B) - PARATHYROID GLAND LEFT, biopsy left lower with portion submitted C) - PARATHYROID GLAND LEFT, left upper totally excised,portion submitted [id number] Performed By: #### 2 731-8 #### [facility] CLIA [id number] [address] [place] [address] [place] CLINICAL HISTORY [facility] Comment on above: Order Comment: Speci men Type: BLOOD SPECIMEN Ordering Facility: [facility] Address: [address] [place] [address] Result Comment: Pre- op diagnosis: 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 R ight lower parathyroid gland, parathyroidectomy: -Hypercellular parathyroid. B. Left lower parathyroid gland, biopsy: -Hypercellular parathyroid. C. Left upper parathyroid gland, parathyroidectomy: -Hypercellular parathyroid. Performed By: #### 2 731-8 #### [facility] CLIA [id number] [address] [place] [address] FINAL PERFORMING LAB [facility] Comment on above: Order Comment: Speci men Type: BLOOD SPECIMEN Ordering Facility: [facility] Address: [address] [place] [address] Result Comment: Diag nostic interpretation performed at [facility], [address] [id number] CLIA# [id number] Parts Salvager: Sergey Velez M.D. Performed By: #### 2 731-8 #### [facility] CLIA [id number] [address] [place] [address] OF [facility] GROSS DESCRIPTION [facility] Comment on above: Order Comment: Speci men Type: BLOOD SPECIMEN Ordering Facility: [facility] Address: [address] [place] [address] Result Comment: A. P ARATHYROID GLAND RIGHT Received fresh intraoperative consultation is a single piece of porter soft tissue measuring 1.2 x 0.9 x 0.5 cm and weighing 0.283 g. Totally submitted as FSA1. B. PARATHYROID GLAND LEFT Received fresh for intraoperative consultation is a single piece of porter-red soft tissue measuring 0.8 x 0.6 x 0.5 cm and weighing 0.122 g. Totally submitted as FSB1. Gross examination performed at [facility], [address] [place] [address] CLIA# [id number] C. PARATHYROID GLAND LEFT Received fresh intraoperative consultation is a single piece of porter-red soft tissue measuring 0.8 x 0.5 x 0.3 cm and weighing 0.080 g. Totally submitted as FSC1. Gross examination performed at [facility], [address] [place] [address] CLIA# [id number] Performed By: #### 2 731-8 #### [facility] CLIA [id number] [address] [place] [address] [place] INTRAOPERATIVE DIAGNOSIS [facility] Comment on above: Order Comment: Speci men Type: BLOOD SPECIMEN Ordering Facility: [facility] Address: [address] [place] [address] Result Comment: A. P ARATHYROID GLAND RIGHT FSA1: Hypercellular parathyroid gland tissue (Dr. Lang) B. PARATHYROID GLAND LEFT FSB1: Hypercellular parathyroid gland tissue (Dr. Lang) Intraoperative diagnosis performed at [facility], [address] [place] [address] CLIA# [id number] C. PARATHYROID GLAND LEFT FSC1: Hypercellular parathyroid gland tissue (Dr. Lang) Intraoperative diagnosis performed at [facility], [address] [place] [address] CLIA# [id number] Performed By: #### 2 731-8 #### [facility] CLIA [id number] [address] [place] [address] [place] US NECK (POC) ENDO USE ONLYo n 07-11-2023 [facility] Basic metabolic 2000 panelon 06-25-2023 Anion gap [Moles/Vol] 10 mmol/L Normal 9-18 [facility] Comment on above: Order Comment: Speci men Type: BLOOD SPECIMEN Ordering Facility: [facility] Address: [address] [place] [address] Performed By: #### 2 4321-2 #### [facility] CLIA [id number] [address] [place] [address] [place] Calcium [Mass/Vol] 11.4 mg/dL High 8.5-10.2 [facility] Comment on above: Order Comment: Speci men Type: BLOOD SPECIMEN Ordering Facility: [facility] Address: [address] [place] [address] Performed By: #### 2 4321-2 #### [facility] CLIA [id number] [address] [place] [address] [place] Chloride [Moles/Vol] 96 mmol/L Low 97-105 [facility] Comment on above: Order Comment: Speci men Type: BLOOD SPECIMEN Ordering Facility: [facility] Address: [address] [place] [address] Performed By: #### 2 4321-2 #### [facility] CLIA [id number] [address] [place] [address] [place] CO2 [Moles/Vol] 34 mmol/L High 22-30 [facility] Comment on above: Order Comment: Speci men Type: BLOOD SPECIMEN Ordering Facility: [facility] Address: [address] [place] [address] Performed By: #### 2 4321-2 #### [facility] CLIA [id number] [address] [place] [address] [place] Creatinine [Mass/Vol] 5.70 mg/dL High 0.73-1.22 [facility] Comment on above: Order Comment: Speci men Type: BLOOD SPECIMEN Ordering Facility: [facility] Address: [address] [place] [address] Performed By: #### 2 4321-2 #### [facility] CLIA [id number] [address] [place] [address] [place] Creatinine and Glomerular filtration rate.predicted panel (S/P/Bld) 9 mL/min/1.73m??? Low >=60 [facility] Comment on above: Order Comment: Cory howard Type: BLOOD SPECIMEN Ordering Facility: [facility] Address: [address] [place] [address] Result Comment: Elena mated Glomerular Filtration Rate (eGFR) is calculated using the 2020 CKD-EPI creatinine equation. This equation utilizes serum creatinine, sex, and age as parameters. The creatinine assay has traceable calibration to isotope dilution-mass spectrometry. Refer to KDIGO guidelines for clinical interpretation. In patients with unstable renal function, e.g. those with acute kidney injury, the eGFR may not accurately reflect actual GFR. Performed By: #### 2 4321-2 #### [facility] CLIA [id number] [address] [place] [address] [place] Glucose [Mass/Vol] 96 mg/dL Normal 74-99 [facility] Comment on above: Order Comment: Cory howard Type: BLOOD SPECIMEN Ordering Facility: [facility] Address: [address] [place] [address] Result Comment: The [place] [employer] (ADA) provides guidance for cutoff values for fasting glucose and random glucose. The ADA defines fasting as no caloric intake for at least 8 hours. Fasting plasma glucose results between 100 to 125 mg/dL indicate increased risk for diabetes (prediabetes). Fasting plasma glucose results greater than or equal to 126 mg/dL meet the criteria for diagnosis of diabetes. In the absence of unequivocal hyperglycemia, results should be confirmed by repeat testing. In a patient with classic symptoms of hyperglycemia or hyperglycemic crisis, random plasma glucose results greater than or equal to 200 mg/dL meet the criteria for diagnosis of diabetes. Reference: Standards of Medical Care in Diabetes 2016, [place] [employer]. Diabetes Care. 2016.39(Suppl 1). Performed By: #### 2 4321-2 #### [facility] CLIA [id number] [address] [place] [address] [place] Potassium [Moles/Vol] 5.5 mmol/L High 3.7-5.1 [facility] Comment on above: Order Comment: Cory howard Type: BLOOD SPECIMEN Ordering Facility: [facility] Address: [address] [place] [address] Performed By: #### 2 4321-2 #### [facility] CLIA [id number] [address] STATES [facility] Sodium [Moles/Vol] 140 mmol/L Normal 136-144 [facility] Comment on above: Order Comment: Speci men Type: BLOOD SPECIMEN Ordering Facility: [facility] Address: [address] [place] [address] Performed By: #### 2 4321-2 #### [facility] CLIA [id number] [address] [place] Urea nitrogen [Mass/Vol] 39 mg/dL High 9-24 [facility] Comment on above: Order Comment: Speci men Type: BLOOD SPECIMEN Ordering Facility: [facility] Address: [address] [place] [address] Performed By: #### 2 4321-2 #### [facility] CLIA [id number] [address] CBC W Auto Differential pane l (Bld)on 06-25-2023 Basophils (Bld) [#/Vol] 0.04 10*3/uL Normal <0.11 [facility] Comment on above: Order Comment: Speci men Type: BLOOD SPECIMEN Ordering Facility: [facility] Address: [address] [place] [address] Performed By: #### 5 7021-8 #### [facility] CLIA [id number] [address] Basophils/100 WBC (Bld) 0.6 % Normal [facility] Comment on above: Order Comment: Speci men Type: BLOOD SPECIMEN Ordering Facility: [facility] Address: [address] [place] [address] Performed By: #### 5 7021-8 #### [facility] CLIA [id number] [address] Differential cell count method Nom (Bld) Auto Normal [facility] Comment on above: Order Comment: Speci men Type: BLOOD SPECIMEN Ordering Facility: [facility] Address: [address] [place] [address] Performed By: #### 5 7021-8 #### [facility] CLIA [id number] [address] [place] [address] [place] Eosinophils (Bld) [#/Vol] 0.29 10*3/uL Normal <0.46 [facility] Comment on above: Order Comment: Speci men Type: BLOOD SPECIMEN Ordering Facility: [facility] Address: [address] [place] [address] Performed By: #### 5 7021-8 #### [facility] CLIA [id number] [address] [place] [address] [place] Eosinophils/100 WBC (Bld) 4.1 % Normal [facility] Comment on above: Order Comment: Speci men Type: BLOOD SPECIMEN Ordering Facility: [facility] Address: [address] [place] [address] Performed By: #### 5 7021-8 #### [facility] CLIA [id number] [address] [place] Erythrocyte distribution width (RBC) [Ratio] 15.6 % High 11.5-15.0 [facility] Comment on above: Order Comment: Speci men Type: BLOOD SPECIMEN Ordering Facility: [facility] Address: [address] [place] [address] Performed By: #### 5 7021-8 #### [facility] CLIA [id number] [address] [place] Hematocrit (Bld) [Volume fraction] 32.7 % Low 39.0-51.0 [facility] Comment on above: Order Comment: Speci men Type: BLOOD SPECIMEN Ordering Facility: [facility] Address: [address] [place] [address] Performed By: #### 5 7021-8 #### [facility] CLIA [id number] [address] [place] [address] [place] Hemoglobin (Bld) [Mass/Vol] 10.3 g/dL Low 13.0-17.0 [facility] Comment on above: Order Comment: Speci men Type: BLOOD SPECIMEN Ordering Facility: [facility] Address: [address] [place] [address] Performed By: #### 5 7021-8 #### [facility] CLIA [id number] [address] [place] [address] [place] Immature granulocytes (Bld) [#/Vol] 10*3/uL Normal <0.10 [facility] Comment on above: Order Comment: Speci men Type: BLOOD SPECIMEN Ordering Facility: [facility] Address: [address] [place] [address] Performed By: #### 5 7021-8 #### [facility] CLIA [id number] [address] Immature granulocytes/100 WBC (Bld) 0.3 % Normal [facility] Comment on above: Order Comment: Speci men Type: BLOOD SPECIMEN Ordering Facility: [facility] Address: [address] [place] [address] Performed By: #### 5 7021-8 #### [facility] CLIA [id number] [address] [place] Lymphocytes (Bld) [#/Vol] 1.49 10*3/uL Normal 1.00-4.00 [facility] Comment on above: Order Comment: Speci men Type: BLOOD SPECIMEN Ordering Facility: [facility] Address: [address] [place] [address] Performed By: #### 5 7021-8 #### [facility] CLIA [id number] [address] Lymphocytes/100 WBC (Bld) 21.2 % Normal [facility] Comment on above: Order Comment: Speci men Type: BLOOD SPECIMEN Ordering Facility: [facility] Address: [address] [place] [address] Performed By: #### 5 7021-8 #### [facility] CLIA [id number] [address] [place] [address] [place] MCH (RBC) [Entitic mass] 30.2 pg Normal 26.0-34.0 [facility] Comment on above: Order Comment: Speci men Type: BLOOD SPECIMEN Ordering Facility: [facility] Address: [address] [place] [address] Performed By: #### 5 7021-8 #### [facility] CLIA [id number] [address] [place] MCHC (RBC) [Mass/Vol] 31.5 g/dL Normal 30.5-36.0 [facility] Comment on above: Order Comment: Speci men Type: BLOOD SPECIMEN Ordering Facility: [facility] Address: [address] [place] [address] Performed By: #### 5 7021-8 #### [facility] CLIA [id number] [address] [place] [address] [place] MCV (RBC) [Entitic vol] 95.9 fL Normal 80.0-100.0 [facility] Comment on above: Order Comment: Speci men Type: BLOOD SPECIMEN Ordering Facility: [facility] Address: [address] [place] [address] Performed By: #### 5 7021-8 #### [facility] CLIA [id number] [address] [place] [address] [place] Monocytes (Bld) [#/Vol] 0.86 10*3/uL Normal <0.87 [facility] Comment on above: Order Comment: Speci men Type: BLOOD SPECIMEN Ordering Facility: [facility] Address: [address] [place] [address] Performed By: #### 5 7021-8 #### [facility] CLIA [id number] [address] [place] Monocytes/100 WBC (Bld) 12.2 % Normal [facility] Comment on above: Order Comment: Speci men Type: BLOOD SPECIMEN Ordering Facility: [facility] Address: [address] [place] [address] Performed By: #### 5 7021-8 #### [facility] CLIA [id number] [address] [place] [address] [place] Neutrophils (Bld) [#/Vol] 4.33 10*3/uL Normal 1.45-7.50 [facility] Comment on above: Order Comment: Speci men Type: BLOOD SPECIMEN Ordering Facility: [facility] Address: [address] [place] [address] Performed By: #### 5 7021-8 #### [facility] CLIA [id number] [address] STATES [facility] Neutrophils/100 WBC (Bld) 61.6 % Normal [facility] Comment on above: Order Comment: Speci men Type: BLOOD SPECIMEN Ordering Facility: [facility] Address: [address] [place] [address] Performed By: #### 5 7021-8 #### [facility] CLIA [id number] [address] [place] [address] [place] Nucleated RBC (Bld) [#/Vol] 10*3/uL Normal <0.01 [facility] Comment on above: Order Comment: Speci men Type: BLOOD SPECIMEN Ordering Facility: [facility] Address: [address] [place] [address] Performed By: #### 5 7021-8 #### [facility] CLIA [id number] [address] [place] Nucleated RBC/100 WBC (Bld) [Ratio] 0.0 /100 WBC Normal [facility] Comment on above: Order Comment: Speci men Type: BLOOD SPECIMEN Ordering Facility: [facility] Address: [address] [place] [address] Performed By: #### 5 7021-8 #### [facility] CLIA [id number] [address] Platelet mean volume (Bld) [Entitic vol] 10.3 fL Normal 9.0-12.7 [facility] Comment on above: Order Comment: Speci men Type: BLOOD SPECIMEN Ordering Facility: [facility] Address: [address] [place] [address] Performed By: #### 5 7021-8 #### [facility] CLIA [id number] [address] [place] [address] [place] Platelets (Bld) [#/Vol] 182 10*3/uL Normal 150-400 [facility] Comment on above: Order Comment: Speci men Type: BLOOD SPECIMEN Ordering Facility: [facility] Address: [address] [place] [address] Performed By: #### 5 7021-8 #### [facility] CLIA [id number] [address] [place] RBC (Bld) [#/Vol] 3.41 10*6/uL Low 4.20-6.00 [facility] Comment on above: Order Comment: Speci men Type: BLOOD SPECIMEN Ordering Facility: [facility] Address: [address] [place] [address] Performed By: #### 5 7021-8 #### [facility] CLIA [id number] [address] [place] WBC (Bld) [#/Vol] 7.03 10*3/uL Normal 3.70-11.00 [facility] Comment on above: Order Comment: Speci men Type: BLOOD SPECIMEN Ordering Facility: [facility] Address: [address] [place] [address] Performed By: #### 5 7021-8 #### [facility] CLIA [id number] [address] ECG COMPLETEon 06-25-2023 ECG COMPLETE Ventricular Rate : 6 8 BPM Atrial Rate : 68 BPM P-R Interval : 184 ms QRS Duration : 116 ms Q-T Interval : 420 ms QTC Calculation(Bazett) : 446 ms Calculated P [place] : 29 degrees Calculated R [place] : -15 degrees Calculated T [place] : 21 degrees NORMAL SINUS RHYTHM INFERIOR INFARCT , AGE UNDETERMINED ABNORMAL ECG NO PREVIOUS ECGS AVAILABLE Confirmed by MD WAN GREGORY () on 06/25/2023 2:49:11 PM NAME : LUIS MANUEL DURAN PID : [id number] : 1940 Gender : Male Race : ORD : [id number] Procedure Date : Jun 25 2023 11:05:07 Edit Date : Jun 25 2023 14:49:18 Diagnosis: NORMAL SINUS RHYTHM INFERIOR INFARCT , AGE UNDETERMINED ABNORMAL ECG NO PREVIOUS ECGS AVAILABLE Confirmed by MD WAN GREGORY () on 06/25/2023 2:49:11 PM Test Reason : HCS Location : 10 : [facility]/ Overread By : MD WAN GREGORY Edited By : MD WAN GREGORY Referred By : YAYA SUN Acquired by : Sydnie XAVIER [facility] HISTORY PHYSICALon 3 HISTORY PHYSICAL HNO ID: [id number] Author: Nora San PA-C Service: ? Author Type: Physician Parts Finisher Type: HANDP Filed: 06/25/2023 12:22 PM Note Text: HISTORY AND PHYSICAL EXAMINATION SERVICE DATE: 06/25/2023 SERVICE TIME: 12:21 PM PRIMARY CARE PHYSICIAN: Julio Licea MD REASON FOR VISIT: Luis Manuel Duran JR is a 82 year old male who is scheduled for Procedure(s): EXPLORATION PARATHYROID (N/A) at the request of @REFPROV2@ for consultation. My final recommendation will be communicated back to the requesting physician by way of shared medical record or letter. Subjective The patient has the following: ACTIVE PROBLEM LIST Essential Hypertension, Benign Personal History of Colonic Polyps Gerd Without Esophagitis Bph With Obstruction/Lower Urinary Tract Symptoms Benign Essential Tremor Mixed Hyperlipidemia Anemia of Chronic Disease Primary Hyperparathyroidism (Hcc) Ckd (Chronic Kidney Disease) Stage 4, Gfr 15-29 Ml/Min (Hcc) Coronary Artery Disease Involving [place] Coronary Artery of [place] Heart Without Angina Pectoris History of Non-St Elevation Myocardial Infarction (Nstemi) Elevated Psa Medicare Annual Wellness Visit, Subsequent Family History of Malignant Neoplasm of Gastrointestinal Tract Ex-Smoker History of Covid-19 Mild Aortic Stenosis Living Will On File Advance Directive Discussed With Patient Chronic Diastolic Congestive Heart Failure (Hcc) Medication Management COVID-19 Immunization Status Overdue - Covid-19 Vaccine ( season) Overdue since 04/12/2023 07/31/2021 Imm Admin: COVID-19 original vaccine, full dose, monovalent (MODERNA) 11/08/2020 Imm Admin: COVID-19 original vaccine, full dose, monovalent (MODERNA) 10/11/2020 Imm Admin: COVID-19 original vaccine, full dose, monovalent (MODERNA) CHIEF COMPLAINT: Pre-Op HPI: Luis Manuel Duran JR is a 82 year old male presenting for pre-anesthesia consultation. Pt has history of hyperparathyroidism. Feeling well today. Above procedure recommended to manage symptoms. Procedure scheduled on 07/11/2023 at [facility]. REVIEW OF SYSTEMS: General: No weight loss, malaise or fevers. Neurological: Negative for: headaches, multiple sclerosis, Parkinson's disease, seizures and strokes. Respiratory: + non-productive cough on and off. No sob. Negative for: asthma, COPD, current cough, dyspnea, tobacco use, URI < 2 weeks and obstructive sleep apnea. Cardiovascular: Positive for: CAD, CHF, hyperlipidemia, hypertension, murmur/valvular heart disease and PTCA Patient's last office visit with post anesthesia nurse, Dr. Horton ([place]), Negative for: AICD/PPM, anticoagulation therapy, arrhythmia, chest pain, DVT/PE, recent SD, open heart surgery and valve surgery. GI: Positive for: GERD Negative for: abdominal pain, dysphagia, liver disease, nausea and vomiting. : + CKD Positive for: BPH, hesitancy and nocturia >1 time per night. Negative for: on dialysis, dysuria, hematuria and renal failure. Endocrine: Negative for: diabetes mellitus, hyperthyroidism and hypothyroidism. Hematology: Positive for: anemia, anemia associated with chronic kidney disease and chronic anti-coagulation/platelet meds. Patient is on anti-coagulation/platelet medication(s): Aspirin. Negative for: bruises/bleeds easily, factor V Leiden, hemophilia, thrombocytopenia and von Willebrand disease. Oncology: No history of CA metastasis, chemo within 30 days, or radiotherapy within 90 days. No history of oncological symptoms or problems. Psych: Negative for: anxiety, bipolar disorder and depression. Musculoskeletal: + Sciatica on right side. Negative for joint pain or swelling, back pain or muscle pain. Skin: Negative for lesions, rash and itching. PAST MEDICAL HISTORY Diagnosis Date Advance directive discussed with patient 12/15/2021 Discussed 12/2021 Anemia of chronic disease 10/15/2013 ASHD (arteriosclerotic heart disease) 03/06/2018 Benign essential tremor 07/03/2010 BPH with obstruction/lower urinary tract symptoms 08/01/2005 Chronic diastolic congestive heart failure (HCC) 12/15/2021 seeing cardio CKD (chronic kidney disease) stage 4, GFR 15-29 ml/min (HCC) 03/04/2017 COVID-19 virus infection 05/29/2021 05/27/2021 Diaphragmatic hernia without mention of obstruction or gangrene Hiatal hernia Elevated PSA 03/11/2019 Esophagitis, unspecified Essential hypertension, benign Ex-smoker 12/26/2020 Started age 18 up to 1.5 PPD and quit at age 35. 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 Normal [facility] PTH-Intact SerPl-mCncon 11-1 Parathyrin.intact [Mass/Vol] 1015 pg/mL High 15-65 [facility] Comment on above: Order Comment: Speci men Type: BLOOD SPECIMEN Ordering Facility: [facility] Address: [address] [place] [address] Performed By: #### 2 731-8 #### [facility] CLIA [id number] [address] [facility] [id number] [place] [address] [place] URINE CULTUREon 05-18-2023 Bacteria identified Cx Nom (U) <10,000 CFU/ml Morganella morganii Abnormal [facility] UA DIP, URINE (POC)on 2022 BILIRUBIN UA (POCT) Negative Negative [facility] CLARITY UA (POCT) Slightly Cloudy [facility] COLOR UA (POCT) Yellow [facility] GLUCOSE UA (POCT) 100 mg/dL Abnormal Negative mg/dL [facility] Hemoglobin Ql (U) Trace-lysed Abnormal Negative [facility] KETONE UA (POCT) Negative Negative mg/dL [facility] LEUKOCYTES UA (POCT) Negative Negative [facility] NITRITE UA (POCT) Negative Negative [facility] PH UA (POCT) 8.5 Abnormal 4.5 - 8.0 [facility] Protein Ql (U) >=300 Abnormal Negative mg/dL [facility] SPECIFIC GRAVITY UA (POCT) 1.015 1.005 - 1.030 [facility] UROBILINOGEN UA (POCT) 0.2 E.U./dL Normal E.U./dL [facility] CBC W Auto Differential pane l (Bld)on 09-06-2022 Basophils (Bld) [#/Vol] 0.05 10*3/uL <0.11 k/uL [facility] Basophils/100 WBC (Bld) 0.7 % [facility] Differential cell count method Nom (Bld) Auto [facility] Eosinophils (Bld) [#/Vol] 0.32 10*3/uL <0.46 k/uL [facility] Eosinophils/100 WBC (Bld) 4.6 % [facility] Erythrocyte distribution width (RBC) [Ratio] 17.0 % High 11.5 - 15.0 % [facility] Hematocrit (Bld) [Volume fraction] 40.1 % 39.0 - 51.0 % [facility] Hemoglobin (Bld) [Mass/Vol] 12.3 g/dL Low 13.0 - 17.0 g/dL [facility] Immature granulocytes (Bld) [#/Vol] <0.10 k/uL [facility] Immature granulocytes/100 WBC (Bld) 0.3 % [facility] Lymphocytes (Bld) [#/Vol] 1.51 10*3/uL 1.00 - 4.00 k/uL [facility] Lymphocytes/100 WBC (Bld) 21.5 % [facility] MCH (RBC) [Entitic mass] 29.9 pg 26.0 - 34.0 pg [facility] MCHC (RBC) [Mass/Vol] 30.7 g/dL 30.5 - 36.0 g/dL [facility] MCV (RBC) [Entitic vol] 97.6 fL 80.0 - 100.0 fL [facility] Monocytes (Bld) [#/Vol] 0.75 10*3/uL <0.87 k/uL [facility] Monocytes/100 WBC (Bld) 10.7 % [facility] Neutrophils (Bld) [#/Vol] 4.36 10*3/uL 1.45 - 7.50 k/uL [facility] Neutrophils/100 WBC (Bld) 62.2 % [facility] Nucleated RBC (Bld) [#/Vol] <0.01 k/uL [facility] Nucleated RBC/100 WBC (Bld) [Ratio] 0.0 /100 WBC [facility] Platelet mean volume (Bld) [Entitic vol] 10.9 fL 9.0 - 12.7 fL [facility] Platelets (Bld) [#/Vol] 160 10*3/uL 150 - 400 k/uL [facility] RBC (Bld) [#/Vol] 4.11 10*6/uL Low 4.20 - 6.0 0 m/uL [facility] WBC (Bld) [#/Vol] 7.01 10*3/uL 3.70 - 11. 00 k/uL [facility] Hepatic function 2000 panelo n 02-22-2022 Albumin [Mass/Vol] 3.9 g/dL 3.9 - 4.9 g/dL [facility] ALP [Catalytic activity/Vol] 110 U/L 38 - 113 U/L [facility] ALT [Catalytic activity/Vol] 12 U/L 10 - 54 U[facility] AST [Catalytic activity/Vol] 19 U/L 14 - 40 U/L [facility] Bilirubin [Mass/Vol] 0.4 mg/dL 0.2 - 1.3 mg/dL [facility] Bilirubin.conjugate d [Mass/Vol] mg/dL <0.2 mg/dL [facility] Protein [Mass/Vol] 6.7 g/dL 6.3 - 8.0 g/dL [facility] LIPID PANEL, NONFASTINGon Cholesterol [Mass/Vol] 171 mg/dL <200 mg/dL [facility] HDL Cholesterol, Nonfasting 58 mg/dL >39 mg/dL [facility] LDL Cholesterol, Nonfasting 99 mg/dL <100 mg/dL [facility] LDL/HDL Ratio, Nonfasting 1.71 mg/dL <2.54 mg/dL [facility] Non HDL Cholesterol, Nonfasting 113 mg/dL <130 mg/dL [facility] Total Chol/HDL Ratio, Nonfasting 2.95 mg/dL <5.10 mg/dL [facility] Triglycerides, Nonfasting 70 mg/dL <150 mg/dL [facility] VLDL Cholesterol, Nonfasting 14 mg/dL <30 mg/dL [facility] MAGNESIUM BLDon 02-22-2022 Magnesium [Mass/Vol] 2.1 mg/dL 1.7 - 2.3 mg/dL [facility] VITAMIN B12 BLOODon 02-23-20 Cobalamin (Vitamin B12) [Mass/Vol] 1056 pg/mL 232-1,245 pg/mL [facility] Absolute lymphocyte counton 02-11-2022 Lymphocytes Auto (Unsp spec) [#/Vol] 1.18 10*3/uL 0.83-4.51 [facility] Work Phone: Basophil percentageon 2021 Basophils/100 WBC (Bld) 0.4 % 0-1 [facility] Work Phone: Eosinophils/100 WBC (Bld) 2.8 % 0-5 [facility] Work Phone: Neutrophils (Bld) [#/Vol] 6.1 10*3/uL 2.0-7.7 [facility] Work Phone: [phone] Neutrophils/100 WBC (Bld) 72.2 % 47-70 [facility] Work Phone: WBC (Bld) [#/Vol] 8.4 10*3/uL 4.4-11.0 [facility] Work Phone: Blood erythrocytes count (nu mber/volume)on 02-11-2022 RBC (Bld) [#/Vol] 3.65 10*6/uL 4.6-6.2 [facility] Work Phone: Blood hemoglobin measurement (mass/volume)on 02-11-2022 Hemoglobin (Bld) [Mass/Vol] 11.1 g/dL 13.0-16.5 [facility] Work Phone: Blood lymphocytes/100 leukoc yteson 02-11-2022 Lymphocytes/100 WBC (Bld) 14.0 % 19-41 [facility] Work Phone: Blood monocytes/100 leukocyt eson 02-11-2022 Monocytes/100 WBC (Bld) 10.2 % 0-10 [facility] Work Phone: Blood platelet mean volumeon 02-11-2022 Platelet mean volume (Bld) [Entitic vol] 10.8 fL 6.2-12.0 [facility] Work Phone: Determination of erythrocyte mean corpuscular volume (MCV)on 02-11-2022 MCV (RBC) [Entitic vol] 98.4 fL 80-94 [facility] Work Phone: Hematocrit Auto (Bld) [Volum e fraction]on 02-11-2022 Hematocrit (Bld) [Volume fraction] 35.9 % 40-54 [facility] Work Phone: Laboratory - Hematology and Cell countson 02-11-2022 Erythrocyte distribution width (RBC) [Entitic vol] 52.8 fL 35.1-43.9 [facility] Work Phone: Erythrocyte distribution width (RBC) [Ratio] 14.6 % 11.6-14.6 [facility] Work Phone: [phone] Immature granulocytes/100 WBC (Bld) 0.400 % 0.0-0.9 [facility] Work Phone: Comment on above: IG% - Immature Granu locytes (promyelocytes, myelocytes and metamyelocytes) > 1% indicates that a LEFT SHIFT is Present. MCH (RBC) [Entitic mass] 30.4 pg 27.0-32.0 [facility] Work Phone: Nucleated RBC/100 WBC (Bld) [Ratio] 0 % 0-5 [facility] Work Phone: MCHC Auto (RBC) [Mass/Vol]on 02-11-2022 MCHC (RBC) [Mass/Vol] 30.9 g/dL 32-36 [facility] Work Phone: Platelets bldon 02-11-2022 Platelets (Bld) [#/Vol] 130 10*3/uL 150-450 [facility] Work Phone: Basophil percentageon 2021 Chloride [Moles/Vol] 100 mmol/L 98-107 [facility] Work Phone: Glucose [Mass/Vol] 107 mg/dL 74-106 [facility] Work Phone: Comment on above: Fasting Glucose resu lt from 100 to 125 mg/dL suggests IMPAIRED HOMEOSTASIS per A.D.A. criteria. Potassium [Moles/Vol] 3.8 mmol/L 3.5-5.1 [facility] Work Phone: Sodium [Moles/Vol] 135 mmol/L 136-145 [facility] Work Phone: [phone] WBC (Bld) [#/Vol] 5.6 10*3/uL 4.4-11.0 [facility] Work Phone: [phone] Blood erythrocytes count (nu mber/volume)on 02-02-2022 RBC (Bld) [#/Vol] 4.31 10*6/uL 4.6-6.2 [facility] Work Phone: [phone] Blood hemoglobin measurement (mass/volume)on 02-02-2022 Hemoglobin (Bld) [Mass/Vol] 13.1 g/dL 13.0-16.5 [facility] Work Phone: [phone] Blood platelet mean volumeon 02-02-2022 Platelet mean volume (Bld) [Entitic vol] 10.7 fL 6.2-12.0 [facility] Work Phone: [phone] Determination of erythrocyte mean corpuscular volume (MCV)on 02-02-2022 MCV (RBC) [Entitic vol] 98.8 fL 80-94 [facility] Work Phone: [phone] Hematocrit Auto (Bld) [Volum e fraction]on 02-02-2022 Hematocrit (Bld) [Volume fraction] 42.6 % 40-54 [facility] Work Phone: [phone] Laboratory - Chemistry and C hemistry - challengeon 02-02-2022 CO2 [Moles/Vol] 29.0 mmol/L 21.0-32.0 [facility] Work Phone: [phone] Urea nitrogen/Creatinine [Mass ratio] 4.7 mg/mg 10-20 [facility] Work Phone: [phone] Laboratory - Hematology and Cell countson 02-02-2022 Erythrocyte distribution width (RBC) [Entitic vol] 53.5 fL 35.1-43.9 [facility] Work Phone: [phone] Erythrocyte distribution width (RBC) [Ratio] 14.6 % 11.6-14.6 [facility] Work Phone: [phone] MCH (RBC) [Entitic mass] 30.4 pg 27.0-32.0 [facility] Work Phone: MCHC Auto (RBC) [Mass/Vol]on 02-02-2022 MCHC (RBC) [Mass/Vol] 30.8 g/dL 32-36 [facility] Work Phone: No Panel Informationon 02-02 Estimated GFR (MDRD) Amer 18 mL/min >60 [facility] Work Phone: Comment on above: GFR Calc Estimated GFR (MDRD) Non-Af Amer 15 mL/min >60 [facility] Work Phone: Comment on above: Non- GFR Calc Platelets bldon 02-02-2022 Platelets (Bld) [#/Vol] 151 10*3/uL 150-450 [facility] Work Phone: Serum or plasma calcium marixa urement (mass/volume)on 02-02-2022 Calcium [Mass/Vol] 9.4 mg/dL 8.5-10.1 [facility] Work Phone: Serum or plasma creatinine m easurement (mass/volume)on 02-02-2022 Creatinine [Mass/Vol] 4.06 mg/dL 0.70-1.30 [facility] Work Phone: Comment on above: The validity of the calculated GFR & GFRAA in patients over 70 years has not been determined. Clinical correlation is essential. Serum or plasma urea nitroge n measurement (mass/volume)on 02-02-2022 Urea nitrogen [Mass/Vol] 19 mg/dL 7-18 [facility] Work Phone: Thin prep Papanicolaou smear with manual screeningon 02-02-2022 Thin prep Papanicolaou smear with manual screening 6 5-15 [facility] Work Phone: LABORATORYOrdered By: SYSTEM SYSTEM on 12-07-2021 Albumin BCP dye [Mass/Vol] 2.9 G/dL Invalid Interpretation Code 3.2 - 4.8 G/dL ADM SS Albumin/Globulin [Mass ratio] 0.9 {ratio} Invalid Interpretation Code 0.9 - 1.6 ratio AH ADM SS ALP [Catalytic activity/Vol] 113 U/L Invalid Interpretation Code 38 - 126 U/L ADM SS ALT No additional P-5'-P [Catalytic activity/Vol] 12 U/L Invalid Interpretation Code 12 - 55 U/L ADM SS AST [Catalytic activity/Vol] 18 U/L Invalid Interpretation Code 8 - 34 U/L ADM SS Bilirubin [Mass/Vol] 0.50 mg/dL Invalid Interpretation Code 0.20 - 1.20 mg/dL ADM SS Calcium [Mass/Vol] 10.1 mg/dL Invalid Interpretation Code 8.7 - 10.4 mg/dL ADM SS Chloride [Moles/Vol] 103 mmol/L Invalid Interpretation Code 98 - 110 mEq/L ADM SS CO2 [Moles/Vol] 27 mmol/L Invalid Interpretation Code 22 - 32 mEq/L ADM SS Creatinine [Mass/Vol] 4.21 mg/dL Invalid Interpretation Code 0.60 - 1.40 mg/dL ADM SS Electrolyte Balance 4.0 mEq/L Invalid Interpretation Code 4.0 - 15.0 mEq/L ADM SS GFR/1.73 sq M.predicted among blacks MDRD (S/P/Bld) [Vol rate/Area] 17 ml/min/1.73sqm Invalid Interpretation Code ADM SS GFR/1.73 sq M.predicted among non-blacks MDRD (S/P/Bld) [Vol rate/Area] 14 ml/min/1.73sqm Invalid Interpretation Code ADM SS Globulin 3.1 G/dL Invalid Interpretation Code 1.5 - 3.8 G/dL ADM SS Glucose [Mass/Vol] 96 mg/dL Invalid Interpretation Code 82 - 115 mg/dL ADM SS Magnesium [Mass/Vol] 1.8 mg/dL Invalid Interpretation Code 1.6 - 2.4 mg/dL ADM SS Potassium [Moles/Vol] 3.7 mmol/L Invalid Interpretation Code 3.5 - 5.0 mEq/L ADM SS Protein [Mass/Vol] 6.0 G/dL Invalid Interpretation Code 5.7 - 8.2 G/dL ADM SS Sodium [Moles/Vol] 134 mmol/L Invalid Interpretation Code 136 - 145 mEq/L ADM SS Urea nitrogen [Mass/Vol] 34.0 mg/dL Invalid Interpretation Code 8.0 - 22.0 mg/dL AH ADM SS Urea nitrogen/Creatinine [Mass ratio] 8.1 ratio Invalid Interpretation Code 10.0 - 22.0 ratio AH ADM SS LABORATORYOrdered By: Anahi Alvarez on 12-06-2021 Eosinophils Dominique stain Ql (Urine sed) 0 (12/06/21 1:03 PM) Invalid Interpretation Code AH Manual Heme SS Specimen source Nom (Unsp spec) Urine (12/06/21 1:03 PM) Invalid Interpretation Code AH Manual Heme SS LABORATORYOrdered By: SYSTEM SYSTEM on 12-06-2021 Albumin BCP dye [Mass/Vol] 3.1 G/dL Invalid Interpretation Code 3.2 - 4.8 G/dL AH ADM SS Basophils (Bld) [#/Vol] 0.00 103/mcL Invalid Interpretation Code 0.00 - 0.27 10^3/mcL AH Remisol SS Basophils/100 WBC (Bld) 0.3 % Invalid Interpretation Code 0.0 - 2.5 % AH Remisol SS Eosinophils (Bld) [#/Vol] 0.30 103/mcL Invalid Interpretation Code 0.00 - 0.65 10^3/mcL AH Remisol SS Eosinophils/100 WBC (Bld) 5.1 % Invalid Interpretation Code 0.0 - 6.0 % AH Remisol SS Erythrocyte distribution width (RBC) [Ratio] 15.7 % Invalid Interpretation Code 11.5 - 15.5 % AH Remisol SS GFR/1.73 sq M.predicted among blacks MDRD (S/P/Bld) [Vol rate/Area] 14 ml/min/1.73sqm Invalid Interpretation Code AH ADM SS GFR/1.73 sq M.predicted among non-blacks MDRD (S/P/Bld) [Vol rate/Area] 12 ml/min/1.73sqm Invalid Interpretation Code AH ADM SS Hematocrit (Bld) [Volume fraction] 26.2 % Invalid Interpretation Code 40.0 - 52.0 % AH Remisol SS Hemoglobin (Bld) [Mass/Vol] 8.7 G/dL Invalid Interpretation Code 13.0 - 17.5 G/dL AH Remisol SS Lymphocytes (Bld) [#/Vol] 0.80 103/mcL Invalid Interpretation Code 0.90 - 4.32 10^3/mcL AH Remisol SS Lymphocytes/100 WBC (Bld) 12.0 % Invalid Interpretation Code 20.0 - 40.0 % AH Remisol SS Magnesium [Mass/Vol] 1.9 mg/dL Invalid Interpretation Code 1.6 - 2.4 mg/dL AH ADM SS MCH (RBC) [Entitic mass] 30.1 pg Invalid Interpretation Code 27.0 - 33.0 pg AH Remisol SS MCHC (RBC) [Mass/Vol] 33.2 G/dL Invalid Interpretation Code 32.0 - 36.0 G/dL AH Remisol SS MCV (RBC) [Entitic vol] 90.4 fL Invalid Interpretation Code 81.0 - 100.0 fL AH Remisol SS Monocytes (Bld) [#/Vol] 0.70 103/mcL Invalid Interpretation Code 0.09 - 1.40 10^3/mcL AH Remisol SS Monocytes/100 WBC (Bld) 10.7 % Invalid Interpretation Code 2.0 - 13.0 % AH Remisol SS Neutrophils (Bld) [#/Vol] 4.90 103/mcL Invalid Interpretation Code 2.25 - 8.10 10^3/mcL AH Remisol SS Neutrophils/100 WBC (Bld) 71.9 % Invalid Interpretation Code 50.0 - 75.0 % AH Remisol SS Phosphate [Mass/Vol] 4.0 mg/dL Invalid Interpretation Code 2.4 - 5.1 mg/dL AH ADM SS Platelet mean volume (Bld) [Entitic vol] 9.1 fL Invalid Interpretation Code 6.4 - 10.5 fL AH Remisol SS Platelets (Bld) [#/Vol] 154 103/mcL Invalid Interpretation Code 150 - 450 10^3/mcL AH Remisol SS RBC (Bld) [#/Vol] 2.90 106/mcL Invalid Interpretation Code 4.50 - 6.00 10^6/mcL AH Remisol SS WBC (Bld) [#/Vol] 6.80 103/mcL Invalid Interpretation Code 4.50 - 10.80 10^3/mcL AH Remisol SS Laboratory - Chemistry and C hemistry - challengeOrdered By: SYSTEM SYSTEM on 12-06-2021 Calcium [Mass/Vol] 10.3 mg/dL Invalid Interpretation Code 8.7 - 10.4 mg/dL AH ADM SS Chloride [Moles/Vol] 106 mmol/L Invalid Interpretation Code 98 - 110 mEq/L AH ADM SS CO2 [Moles/Vol] 25 mmol/L Invalid Interpretation Code 22 - 32 mEq/L AH ADM SS Creatinine [Mass/Vol] 4.86 mg/dL Invalid Interpretation Code 0.60 - 1.40 mg/dL AH ADM SS Glucose [Mass/Vol] 89 mg/dL Invalid Interpretation Code 82 - 115 mg/dL AH ADM SS Potassium [Moles/Vol] 4.2 mmol/L Invalid Interpretation Code 3.5 - 5.0 mEq/L AH ADM SS Comment on above: Result Comment: Spec imen slightly hemolyzed. Sodium [Moles/Vol] 138 mmol/L Invalid Interpretation Code 136 - 145 mEq/L ADM SS Urea nitrogen [Mass/Vol] 34.0 mg/dL Invalid Interpretation Code 8.0 - 22.0 mg/dL ADM SS Urea nitrogen/Creatinine [Mass ratio] 7.0 ratio Invalid Interpretation Code 10.0 - 22.0 ratio AH ADM SS No Panel InformationOrdered By: SYSTEM SYSTEM on 12-06-2021 Electrolyte Balance 7.0 mEq/L Invalid Interpretation Code 4.0 - 15.0 mEq/L ADM SS LABORATORYOrdered By: SYSTEM SYSTEM on 12-05-2021 Basophils (Bld) [#/Vol] 0.00 103/mcL Invalid Interpretation Code 0.00 - 0.27 10^3/mcL AH Remisol SS Basophils/100 WBC (Bld) 0.5 % Invalid Interpretation Code 0.0 - 2.5 % AH Remisol SS Eosinophils (Bld) [#/Vol] 0.40 103/mcL Invalid Interpretation Code 0.00 - 0.65 10^3/mcL AH Remisol SS Eosinophils/100 WBC (Bld) 5.5 % Invalid Interpretation Code 0.0 - 6.0 % AH Remisol SS Erythrocyte distribution width (RBC) [Ratio] 15.5 % Invalid Interpretation Code 11.5 - 15.5 % AH Remisol SS GFR/1.73 sq M.predicted among blacks MDRD (S/P/Bld) [Vol rate/Area] 18 ml/min/1.73sqm Invalid Interpretation Code AH ADM SS GFR/1.73 sq M.predicted among non-blacks MDRD (S/P/Bld) [Vol rate/Area] 15 ml/min/1.73sqm Invalid Interpretation Code ADM SS Hematocrit (Bld) [Volume fraction] 25.3 % Invalid Interpretation Code 40.0 - 52.0 % AH Remisol SS Hemoglobin (Bld) [Mass/Vol] 8.4 G/dL Invalid Interpretation Code 13.0 - 17.5 G/dL AH Remisol SS Lymphocytes (Bld) [#/Vol] 0.90 103/mcL Invalid Interpretation Code 0.90 - 4.32 10^3/mcL AH Remisol SS Lymphocytes/100 WBC (Bld) 12.8 % Invalid Interpretation Code 20.0 - 40.0 % AH Remisol SS Magnesium [Mass/Vol] 1.9 mg/dL Invalid Interpretation Code 1.6 - 2.4 mg/dL AH ADM SS MCH (RBC) [Entitic mass] 30.0 pg Invalid Interpretation Code 27.0 - 33.0 pg AH Remisol SS MCHC (RBC) [Mass/Vol] 33.2 G/dL Invalid Interpretation Code 32.0 - 36.0 G/dL AH Remisol SS MCV (RBC) [Entitic vol] 90.4 fL Invalid Interpretation Code 81.0 - 100.0 fL AH Remisol SS Monocytes (Bld) [#/Vol] 0.80 103/mcL Invalid Interpretation Code 0.09 - 1.40 10^3/mcL AH Remisol SS Monocytes/100 WBC (Bld) 11.3 % Invalid Interpretation Code 2.0 - 13.0 % AH Remisol SS Neutrophils (Bld) [#/Vol] 4.90 103/mcL Invalid Interpretation Code 2.25 - 8.10 10^3/mcL AH Remisol SS Neutrophils/100 WBC (Bld) 69.9 % Invalid Interpretation Code 50.0 - 75.0 % AH Remisol SS Phosphate [Mass/Vol] 3.4 mg/dL Invalid Interpretation Code 2.5 - 4.5 mg/dL AH ADM SS Platelet mean volume (Bld) [Entitic vol] 9.5 fL Invalid Interpretation Code 6.4 - 10.5 fL AH Remisol SS Platelets (Bld) [#/Vol] 139 103/mcL Invalid Interpretation Code 150 - 450 10^3/mcL AH Remisol SS RBC (Bld) [#/Vol] 2.80 106/mcL Invalid Interpretation Code 4.50 - 6.00 10^6/mcL AH Remisol SS WBC (Bld) [#/Vol] 7.00 103/mcL Invalid Interpretation Code 4.50 - 10.80 10^3/mcL AH Remisol SS LABORATORYOrdered By: Tiara Hodges on 12-04-2021 Hep A IgM Ab Non-Reactive (12/04/21 5:09 PM) Invalid Interpretation Code Non-Reactive AH ADM SS Hep A IgM Ab Int No serological evide nce of a current Hepatitis A infection. Invalid Interpretation Code AH Chemistry S Hep B Core IgM Ab Non-Reactive (12/04/21 5:09 PM) Invalid Interpretation Code Non-Reactive AH ADM SS Hep B Core IgM Ab Int Samples with a value < 0.80 Index are considered nonreactive (negative) for IgM antibodies to hepatitis B core antigen. Invalid Interpretation Code AH Chemistry S Hep C Ab Non-Reactive (12/04/21 5:09 PM) Invalid Interpretation Code Non-Reactive AH ADM SS Hep C Ab Int Nonreactive: Samples with a value < 0.80 are considered nonreactive (negative) for antibodies to HCV.A negative test result does not exclude the possibility of exposure to or infection with HCV. HCV antibodies may be undetectable in some stages of the infection and in some clinical conditions. Invalid Interpretation Code AH Chemistry S LABORATORYOrdered By: [employer] SYSTEM on 12-04-2021 Hep B Surf Ag Non-Reactive (12/04/21 5:09 PM) Invalid Interpretation Code Non-Reactive AH ADM SS Basophils (Bld) [#/Vol] 0.00 103/mcL Invalid Interpretation Code 0.00 - 0.27 10^3/mcL AH Remisol SS Basophils/100 WBC (Bld) 0.5 % Invalid Interpretation Code 0.0 - 2.5 % AH Remisol SS Eosinophils (Bld) [#/Vol] 0.40 103/mcL Invalid Interpretation Code 0.00 - 0.65 10^3/mcL AH Remisol SS Eosinophils/100 WBC (Bld) 6.2 % Invalid Interpretation Code 0.0 - 6.0 % AH Remisol SS Erythrocyte distribution width (RBC) [Ratio] 16.0 % Invalid Interpretation Code 11.5 - 15.5 % AH Remisol SS Hematocrit (Bld) [Volume fraction] 25.6 % Invalid Interpretation Code 40.0 - 52.0 % AH Remisol SS Hemoglobin (Bld) [Mass/Vol] 8.3 G/dL Invalid Interpretation Code 13.0 - 17.5 G/dL AH Remisol SS Lymphocytes (Bld) [#/Vol] 0.80 103/mcL Invalid Interpretation Code 0.90 - 4.32 10^3/mcL AH Remisol SS Lymphocytes/100 WBC (Bld) 13.2 % Invalid Interpretation Code 20.0 - 40.0 % AH Remisol SS MCH (RBC) [Entitic mass] 29.6 pg Invalid Interpretation Code 27.0 - 33.0 pg AH Remisol SS MCHC (RBC) [Mass/Vol] 32.6 G/dL Invalid Interpretation Code 32.0 - 36.0 G/dL AH Remisol SS MCV (RBC) [Entitic vol] 90.9 fL Invalid Interpretation Code 81.0 - 100.0 fL AH Remisol SS Monocytes (Bld) [#/Vol] 0.70 103/mcL Invalid Interpretation Code 0.09 - 1.40 10^3/mcL AH Remisol SS Monocytes/100 WBC (Bld) 11.9 % Invalid Interpretation Code 2.0 - 13.0 % AH Remisol SS Neutrophils (Bld) [#/Vol] 4.20 103/mcL Invalid Interpretation Code 2.25 - 8.10 10^3/mcL AH Remisol SS Neutrophils/100 WBC (Bld) 68.2 % Invalid Interpretation Code 50.0 - 75.0 % AH Remisol SS Platelet mean volume (Bld) [Entitic vol] 9.4 fL Invalid Interpretation Code 6.4 - 10.5 fL AH Remisol SS Platelets (Bld) [#/Vol] 127 103/mcL Invalid Interpretation Code 150 - 450 10^3/mcL AH Remisol SS RBC (Bld) [#/Vol] 2.81 106/mcL Invalid Interpretation Code 4.50 - 6.00 10^6/mcL AH Remisol SS WBC (Bld) [#/Vol] 6.20 103/mcL Invalid Interpretation Code 4.50 - 10.80 10^3/mcL AH Remisol SS LABORATORYOrdered By: SYSTEM SYSTEM on 12-03-2021 Natriuretic peptide.B prohormone N-Terminal [Mass/Vol] 6679 pg/mL Invalid Interpretation Code 0 - 1800 pg/mL AH ADM SS LABORATORYOrdered By: Ewelina Traore on 12-03-2021 Appearance (U) Clear (4/24/22 2:32 AM) Invalid Interpretation Code Clear AH Auto Urine SS Bacteria LM.HPF (Urine sed) [#/Area] 1 /[HPF] Invalid Interpretation Code Negative/HPF AH Auto Urine SS Bilirubin Ql (U) Negative (12/03/21 2:32 AM) Invalid Interpretation Code Neg-Trace AH Auto Urine SS Color (U) Yellow (12/03/21 2:32 AM) Invalid Interpretation Code AH Auto Urine SS Glucose Test strip (U) [Mass/Vol] 100 mg/dL Invalid Interpretation Code Negativemg/d L AH Auto Urine SS Hemoglobin Auto test strip (U) [Mass/Vol] Trace (12/03/21 2:32 AM) Invalid Interpretation Code Neg-Trace AH Auto Urine SS Ketones Ql (U) Negative Invalid Interpretation Code Neg-Tracemg/ dL AH Auto Urine SS UA Leuk Est Negative (12/03/21 2:32 AM) Invalid Interpretation Code Negative AH Auto Urine SS UA Mucous Trace /HPF Invalid Interpretation Code AH Auto Urine SS UA Nitrite Negative (12/03/21 2:32 AM) Invalid Interpretation Code Negative AH Auto Urine SS UA pH 6.5 (12/03/21 2:32 AM) Invalid Interpretation Code 5.0 - 8.0 AH Auto Urine SS UA Protein 100 mg/dL Invalid Interpretation Code Negativemg/d L AH Auto Urine SS UA RBC Negative Invalid Interpretation Code 0-2/HPF AH Auto Urine SS UA Spec Grav <=1.005 *ABN* (12/03/21 2:32 AM) Invalid Interpretation Code 1.006-1.029 AH Auto Urine SS UA Specimen Type Clean Catch (12/03/21 2:32 AM) Invalid Interpretation Code AH Auto Urine SS UA Squam Epithelial Negative Invalid Interpretation Code 0-20/HPF AH Auto Urine SS UA Urobilinogen 0.2 E.U./dL Invalid Interpretation Code 0.2-1.0E.U./ dL AH Auto Urine SS WBC LM.HPF (Urine sed) [#/Area] Negative Invalid Interpretation Code 0-5/HPF AH Auto Urine SS LABORATORYOrdered By: Bisi Faulkner on 12-03-2021 Creatinine (U) [Mass/Vol] 24.1 mg/dL Invalid Interpretation Code AH ADM SS Protein (U) [Mass/Vol] 77.8 mg/dL Invalid Interpretation Code AH ADM SS U Ratio Prot/Creat 3.2 ratio Invalid Interpretation Code AH ADM SS LABORATORYOrdered By: Toni Marquez on 12-02-2021 Appearance (U) Clear (12/02/21 6:09 AM) Invalid Interpretation Code Clear AH Auto Urine SS Bacteria LM.HPF (Urine sed) [#/Area] 1 /[HPF] Invalid Interpretation Code Negative/HPF AH Auto Urine SS Bilirubin Ql (U) Negative (12/02/21 6:09 AM) Invalid Interpretation Code Neg-Trace AH Auto Urine SS Color (U) Yellow (12/02/21 6:09 AM) Invalid Interpretation Code AH Auto Urine SS Glucose Test strip (U) [Mass/Vol] 100 mg/dL Invalid Interpretation Code Negativemg/d L AH Auto Urine SS Hemoglobin Auto test strip (U) [Mass/Vol] Trace (12/02/21 6:09 AM) Invalid Interpretation Code Neg-Trace AH Auto Urine SS Ketones Ql (U) Negative Invalid Interpretation Code Neg-Tracemg/ dL AH Auto Urine SS UA Leuk Est Trace *NA* (12/02/21 6:09 AM) Invalid Interpretation Code Negative AH Auto Urine SS UA Nitrite Negative (12/02/21 6:09 AM) Invalid Interpretation Code Negative AH Auto Urine SS UA pH 5.0 (12/02/21 6:09 AM) Invalid Interpretation Code 5.0 - 8.0 AH Auto Urine SS UA Protein 100 mg/dL Invalid Interpretation Code Negativemg/d L AH Auto Urine SS UA RBC Rare /HPF Invalid Interpretation Code 0-2/HPF AH Auto Urine SS UA Spec Grav 1.010 (12/02/21 6:09 AM) Invalid Interpretation Code 1.006-1.029 AH Auto Urine SS UA Specimen Type Void (12/02/21 6:09 AM) Invalid Interpretation Code AH Auto Urine SS UA Squam Epithelial 0-2 /HPF Invalid Interpretation Code 0-20/HPF AH Auto Urine SS UA Urobilinogen 0.2 E.U./dL Invalid Interpretation Code 0.2-1.0E.U./ dL AH Auto Urine SS WBC LM.HPF (Urine sed) [#/Area] 0-2 /HPF Invalid Interpretation Code 0-5/HPF AH Auto Urine SS LABORATORYOrdered By: SYSTEM SYSTEM on 12-02-2021 Albumin [Mass/Vol] 2.5 G/dL Invalid Interpretation Code 3.2 - 4.8 G/dL AH ADM SS Ferritin [Mass/Vol] 88.7 ng/mL Invalid Interpretation Code 26.0 - 388.0 ng/mL AH ADM SS Parathyrin.intact [Mass/Vol] 745.6 pg/mL Invalid Interpretation Code 18.5 - 88.0 pg/mL AH ADM SS Phosphate [Mass/Vol] 4.3 mg/dL Invalid Interpretation Code 2.5 - 4.5 mg/dL AH ADM SS LABORATORYOrdered By: Nancy Alcantar on 12-01-2021 Hep A IgM Ab Non-Reactive (12/01/21 7:00 PM) Invalid Interpretation Code Non-Reactive AH ADM SS Hep A IgM Ab Int No serological evide nce of a current Hepatitis A infection. Invalid Interpretation Code Chemistry S Hep B Core IgM Ab Non-Reactive (12/01/21 7:00 PM) Invalid Interpretation Code Non-Reactive AH ADM SS Hep B Core IgM Ab Int Samples with a value < 0.80 Index are considered nonreactive (negative) for IgM antibodies to hepatitis B core antigen. Invalid Interpretation Code Chemistry S Hep B Surf Ag Non-Reactive (12/01/21 7:00 PM) Invalid Interpretation Code Non-Reactive AH ADM SS Hep C Ab Non-Reactive (12/01/21 7:00 PM) Invalid Interpretation Code Non-Reactive AH ADM SS Hep C Ab Int Nonreactive: Samples with a value < 0.80 are considered nonreactive (negative) for antibodies to HCV.A negative test result does not exclude the possibility of exposure to or infection with HCV. HCV antibodies may be undetectable in some stages of the infection and in some clinical conditions. Invalid Interpretation Code Chemistry S LABORATORYOrdered By: Tiara Hodges on 12-01-2021 Albumin/Globulin [Mass ratio] 1.1 {ratio} Invalid Interpretation Code 0.9 - 1.6 ratio AH ADM SS ALP [Catalytic activity/Vol] 100 U/L Invalid Interpretation Code 38 - 126 U/L AH ADM SS ALT No additional P-5'-P [Catalytic activity/Vol] 10 U/L Invalid Interpretation Code 12 - 55 U/L AH ADM SS AST [Catalytic activity/Vol] 13 U/L Invalid Interpretation Code 8 - 34 U/L AH ADM SS Bili Indirect 0.2 mg/dL Invalid Interpretation Code 0.1 - 10.0 mg/dL AH Chemistry S Bilirubin [Mass/Vol] 0.30 mg/dL Invalid Interpretation Code 0.20 - 1.20 mg/dL ADM SS Bilirubin.conjugate d [Mass/Vol] 0.1 mg/dL Invalid Interpretation Code 0.0 - 0.4 mg/dL ADM SS Cholesterol [Mass/Vol] 118 mg/dL Invalid Interpretation Code 50 - 199 mg/dL ADM SS Cholesterol in HDL [Mass/Vol] 53 mg/dL Invalid Interpretation Code 40 - 59 mg/dL ADM SS Cholesterol in LDL [Mass/Vol] 58 mg/dL Invalid Interpretation Code 0 - 129 mg/dL ADM SS Globulin 2.5 G/dL Invalid Interpretation Code 1.5 - 3.8 G/dL ADM SS Protein [Mass/Vol] 5.2 G/dL Invalid Interpretation Code 5.7 - 8.2 G/dL ADM SS Triglyceride [Mass/Vol] 34 mg/dL Invalid Interpretation Code 3 - 149 mg/dL ADM SS LABORATORYOrdered By: SYSTEM SYSTEM on 12-01-2021 LDH Lactate to pyruvate reaction [Catalytic activity/Vol] 194 1 Invalid Interpretation Code 120 - 246 U/L ADM SS LABORATORYOrdered By: SYSTEM SYSTEM on 11-30-2021 Iron [Mass/Vol] 38 ug/dL Invalid Interpretation Code 65 - 175 mcg/dL ADM SS Iron binding capacity [Mass/Vol] 206 mcg/dL Invalid Interpretation Code 250 - 500 mcg/dL ADM SS Iron saturation [Mass fraction] 18 1 Invalid Interpretation Code ADM SS TSH Qn 2.616 mIU/mL Invalid Interpretation Code 0.550 - 4.780 mIU/mL ADM SS XR Chest PA and Lateralon IMPRESSION: Mild bilateral basilar atelectasis/mild pulmonary infiltrates. Counter Supply Worker: [email or web address] Transcribe Date/Time: Jun 17 2021 11:03A Dictated by : YOLA HIGGINS MD This examination was interpreted and the report reviewed and electronically signed by: YOLA HIGGINS MD on Jun 17 2021 11:04AM [facility] DIVISION OF RADIOLOGY * * *Final Report* * * DATE OF EXAM: Jun 17 2021 10:54AM WOX [id number] - XR CHEST 2V FRONTAL/LAT / PROCEDURE REASON: multiple diagnoses * * * * Physician Interpretation * * * * EXAMINATION: CHEST RADIOGRAPH (2 VIEW FRONTAL & LATERAL) CLINICAL HISTORY: Cough SOB (shortness of breath) MQ: [id number] EXAM DATE/TIME: 06/17/2021 10:54 AM COMPARISON: Chest x-ray on 08/16/2008 RESULT: Lines, tubes, and devices: None. Lungs and pleura: Mild bilateral basilar atelectasis/mild infiltrates noted. The upper lungs are clear. No solid mass lesions seen. No pleural effusion. No pneumothorax. Cardiomediastinal silhouette: Stable cardiac silhouette with tortuosity of the thoracic aorta. Bones and soft tissues: There are degenerative changes in the spine. DIVISION OF RADIOLOGY Provider, [facility] - 06/17/2021 * * *Final Report* * * DATE OF EXAM: Jun 17 2021 10:54AM WOX [id number] - XR CHEST 2V FRONTAL/LAT / PROCEDURE REASON: multiple diagnoses * * * * Physician Interpretation * * * * EXAMINATION: CHEST RADIOGRAPH (2 VIEW FRONTAL & LATERAL) CLINICAL HISTORY: Cough SOB (shortness of breath) MQ: XC2_6 EXAM DATE/TIME: 06/17/2021 10:54 AM COMPARISON: Chest x-ray on 08/16/2008 RESULT: Lines, tubes, and devices: None. Lungs and pleura: Mild bilateral basilar atelectasis/mild infiltrates noted. The upper lungs are clear. No solid mass lesions seen. No pleural effusion. No pneumothorax. Cardiomediastinal silhouette: Stable cardiac silhouette with tortuosity of the thoracic aorta. Bones and soft tissues: There are degenerative changes in the spine. IMPRESSION IMPRESSION: Mild bilateral basilar atelectasis/mild pulmonary infiltrates. Counter Supply Worker: [email or web address] Transcribe Date/Time: Jun 17 2021 11:03A Dictated by : YOLA HIGGINS MD This examination was interpreted and the report reviewed and electronically signed by: YOLA HIGGINS MD on Jun 17 2021 11:04AM EST [facility] Radiology Study observation (narrative) [facility] XR Chest PA and LateralOrder ed By: Ccf Provider on 06-17-2021 [facility] Anti-Neutro.Cyto.Abon 2020 ANCA Interpretation ANCAP2 Normal [facility] Reference Lab Comment on above: Performed By: #### S EPG, RFP, C3COMP, C4COMP #### [facility] Routine Lab [address] [place], [place] [address] [phone] #### DNAAB #### [facility] Immuno Assay [address] [place] [phone] #### ANCA #### [facility] [address] [place], [place] [address] [phone] C-ANCA Fluorescence NEGAT Normal Negative [facility] Reference Lab Comment on above: Performed By: #### S EPG, RFP, C3COMP, C4COMP #### [facility]ine [facility] [address] [phone] #### DNAAB #### [facility] Immuno Assay [address] [place] [phone] #### ANCA #### [facility] [address] [phone] Myeloperoxidase Ab <0.2 Normal <1.0 [facility] Reference Lab Comment on above: Performed By: #### S EPG, RFP, C3COMP, C4COMP #### [facility]ine [facility] [address] [phone] #### DNAAB #### [facility] Immuno Assay [address] [phone] #### ANCA #### [facility] [address] [phone] P-ANCA Fluorescence NEGAT Normal Negative [facility] Reference Lab Comment on above: Performed By: #### S EPG, RFP, C3COMP, C4COMP #### [facility]ine [facility] [address] [phone] #### DNAAB #### [facility] Immuno Assay [address] [place], [place] [address] [phone] #### ANCA #### [facility] [address] [phone] Proteinase-3 Ab <0.2 Normal <1.0 [facility] Reference Lab Comment on above: Performed By: #### S EPG, RFP, C3COMP, C4COMP #### [facility]ine [facility] [address] [phone] #### DNAAB #### [facility] Immuno Assay [address] [phone] #### ANCA #### [facility]ology [address] [place] [phone] Staff Review COTTA Normal [facility] Reference Lab Comment on above: Performed By: #### S EPG, RFP, C3COMP, C4COMP #### [facility] Routine Lab [address] [place] [phone] #### DNAAB #### [facility] Immuno Assay [address] [phone] #### ANCA #### [facility] [address] [phone] PhosLipaseA2 RecepAbon 04-14 PhosLipaseA2 RecepAb <1:10 Normal <1:10 [facility] Reference Lab Comment on above: Performed By: #### S EPG, RFP, C3COMP, C4COMP #### [facility] Routine [facility] [address] [phone] #### DNAAB #### [facility] Immuno Assay [address] [phone] #### ANCA #### [facility] Immunology [address] [place] [phone] Protein Electrophor.on 04-14 Albumin [Mass/Vol] 3.68 g/dL Normal 3.37-4.23 [facility] Reference Lab Comment on above: Performed By: #### S EPG, RFP, C3COMP, C4COMP #### [facility] Routine [facility] [address] [phone] #### DNAAB #### [facility] Immuno Assay [address] [phone] #### ANCA #### [facility] [address] [place] [phone] Alpha 1 Globulin 0.14 gm/dL Low 0.18-0.31 [facility] Reference Lab Comment on above: Performed By: #### S EPG, RFP, C3COMP, C4COMP #### [facility] Routine [facility] [address] [phone] #### DNAAB #### [facility] Immuno Assay [address] [place] [phone] #### ANCA #### [facility] [address] [phone] Alpha 2 Globulin 0.69 gm/dL Normal 0.52-0.97 [facility] Reference Lab Comment on above: Performed By: #### S EPG, RFP, C3COMP, C4COMP #### [facility] Routine [facility] [address] [phone] #### DNAAB #### [facility] Immuno Assay [address] [phone] #### ANCA #### [facility] [address] [phone] Beta Globulin 0.85 gm/dL Normal 0.84-1.36 [facility] Reference Lab Comment on above: Performed By: #### S EPG, RFP, C3COMP, C4COMP #### [facility] Routine [facility] [address] [phone] #### DNAAB #### [facility] Immuno Assay [address] [phone] #### ANCA #### [facility] [address] [phone] Gamma Globulin 1.04 gm/dL Normal 0.70-1.44 [facility] Reference Lab Comment on above: Performed By: #### S EPG, RFP, C3COMP, C4COMP #### [facility] Routine [facility] [address] [phone] #### DNAAB #### [facility] Immuno Assay [address] [place] [phone] #### ANCA #### [facility] [address] [place] [phone] Interpretation NMPD Normal [facility] Reference Lab Comment on above: Performed By: #### S EPG, RFP, C3COMP, C4COMP #### [facility] Routine Lab [address] [place] [phone] #### DNAAB #### [facility] Immuno Assay [address] [place] [phone] #### ANCA #### [facility] [address] [place] [phone] M Protein Location NAPP Normal [facility] Reference Lab Comment on above: Performed By: #### S EPG, RFP, C3COMP, C4COMP #### [facility] Routine Lab [address] [phone] #### DNAAB #### [facility] Immuno Assay [address] [phone] #### ANCA #### [facility] [address] [place] [address] M Kyle Concentratn 0.00 gm/dL Normal 0.00 [facility] Reference Lab Comment on above: Performed By: #### S EPG, RFP, C3COMP, C4COMP #### [facility] Routine Lab [address] [place], [place] [address] #### DNAAB #### [facility] Immuno Assay [address] [place], [place] [phone] #### ANCA #### [facility] [address] [place], [place] [address] [facility] Staff Review LUDY Otoole [facility] Reference Lab Comment on above: Performed By: #### S EPG, RFP, C3COMP, C4COMP #### [facility] Routine Lab [address] [place], [place] [address] #### DNAAB #### [facility] Immuno Assay [address] [place] [address] #### ANCA #### [facility] [address] [place] [address] Protein/Creatinine Ratioon 0 04-14-2021 Creatinine,Urine,Ra n 92.4 mg/dL Normal 20-300 [facility] Reference Lab Comment on above: Performed By: #### P RATIO #### [facility] Routine [facility] [address] [place], [place] [address] Protein/Creatinine Ratio 1.0 High <0.2 [facility] Reference Lab Comment on above: Performed By: #### P RATIO #### [facility] Routine Lab [address] [place], [place] [address] Protein (U) [Mass/Vol] 94 mg/dL High 0-20 [facility] Reference Lab Comment on above: Performed By: #### P RATIO #### [facility] Routine Lab [address] [place], [place] [address] DNA Antibodyon 04-13-2021 DNA Antibody <12 Normal <30 [facility] Reference Lab Comment on above: Performed By: #### S EPG, RFP, C3COMP, C4COMP #### [facility] Routine Lab [address] [place], [place] [address] #### DNAAB #### [facility] Immuno Assay [address] [place] [address] #### ANCA #### [facility] [address] [place] [address] C3 Complementon 04-12-2021 C3 Complement 103 mg/dL Normal 86-166 [facility] Reference Lab Comment on above: Performed By: #### S EPG, RFP, C3COMP, C4COMP #### [facility] Routine Lab [address] [address] #### DNAAB #### [facility] Immuno Assay [address] [place] [phone] #### ANCA #### [facility] [address] [place] [phone] C4 Complementon 04-12-2021 C4 Complement 22 mg/dL Normal 13-46 [facility] Reference Lab Comment on above: Performed By: #### S EPG, RFP, C3COMP, C4COMP #### [facility] Routine Lab [address] [place] [phone] #### DNAAB #### [facility] Immuno Assay [address] [place] [address] [phone] #### ANCA #### [facility] [address] [place] [phone] Protein Electrophor.on 04-12 Protein [Mass/Vol] 6.4 g/dL Normal 6.3-8.0 [facility] Reference Lab Comment on above: Performed By: #### S EPG, RFP, C3COMP, C4COMP #### [facility] Routine Lab [address] [place] [address] #### DNAAB #### [facility] Immuno Assay [address] [address] #### ANCA #### [facility] Immun[facility] [phone] Protein/Creatinine Ratioon 0 04-12-2021 Creatinine,Urine,Ra n Normal 20-300 [facility] Reference Lab Comment on above: Result Comment: Unab le to assay. No specimen received. Account Credited REQ STATES NO URINE SAMPLE SENT. LP [id number] Performed By: #### S EPG, RFP, C3COMP, C4COMP #### [facility] Routine Lab [address] [address] #### DNAAB #### [facility] Immuno Assay [address] [place], [place] [phone] #### ANCA #### [facility] [address] [place], [place] [phone] Protein Urine Random Normal 0-20 [facility] Reference Lab Comment on above: Result Comment: Unab le to assay. No specimen received. Account Credited REQ STATES NO URINE SAMPLE SENT. LP [id number] Performed By: #### S EPG, RFP, C3COMP, C4COMP #### [facility] Routine Lab [address] [place] [address] #### DNAAB #### [facility] Immuno Assay [address] [phone] #### ANCA #### [facility] [address] [place] [address] Protein/Creatinine Ratio Normal <0.2 [facility] Reference Lab Comment on above: Result Comment: Unab le to assay. No specimen received. Account Credited REQ STATES NO URINE SAMPLE SENT. LP [id number] Performed By: #### S EPG, RFP, C3COMP, C4COMP #### [facility] Routine Lab [address] [phone] #### DNAAB #### [facility] Immuno Assay [address] [place], [place] [address] #### ANCA #### [facility] [address] [place], [place] [address] Renal Function Panelon 04-12 Albumin [Mass/Vol] 4.0 g/dL Normal 3.9-4.9 [facility] Reference Lab Comment on above: Performed By: #### S EPG, RFP, C3COMP, C4COMP #### [facility] Routine Lab [address] [place], [place] [address] #### DNAAB #### [facility] Immuno Assay [address] [place], [place] [address] [phone] #### ANCA #### [facility] [address] [phone] Anion gap [Moles/Vol] 12 mmol/L Normal 9-18 [facility] Reference Lab Comment on above: Performed By: #### S EPG, RFP, C3COMP, C4COMP #### [facility] Routine Lab [address] [place], [place] [address] #### DNAAB #### [facility] Immuno Assay [address], [place] [address] #### ANCA #### [facility] [address] [place], [place] [address] Calcium [Mass/Vol] 11.1 mg/dL High 8.5-10.2 [facility] Reference Lab Comment on above: Performed By: #### S EPG, RFP, C3COMP, C4COMP #### [facility] Routine Lab [address], [place] [address] #### DNAAB #### [facility] Immuno Assay [address], [place] [address] #### ANCA #### [facility] [address] [address] Chloride [Moles/Vol] 105 mmol/L Normal 97-105 [facility] Reference Lab Comment on above: Performed By: #### S EPG, RFP, C3COMP, C4COMP #### [facility] Routine Lab [address] [address] #### DNAAB #### [facility] Immuno Assay [address] [phone] #### ANCA #### [facility] [address] [address] CO2 [Moles/Vol] 23 mmol/L Normal 22-30 [facility] Reference Lab Comment on above: Performed By: #### S EPG, RFP, C3COMP, C4COMP #### [facility] Routine Lab [address] [phone] #### DNAAB #### [facility] Immuno Assay [address] [place] [address] #### ANCA #### [facility] [address] [place] [address] Creatinine [Mass/Vol] 3.06 mg/dL High 0.73-1.22 [facility] Reference Lab Comment on above: Performed By: #### S EPG, RFP, C3COMP, C4COMP #### [facility] Routine Lab [address] [address] #### DNAAB #### [facility] Immuno Assay [address] [place] [address] #### ANCA #### [facility] [address] [place] [address] eGFR- Amer. 24 Normal [facility] Reference Lab Comment on above: Performed By: #### S EPG, RFP, C3COMP, C4COMP #### [facility] Routine Lab [address] [place], [place] [address] #### DNAAB #### [facility] Immuno Assay [address] [place], [place] [address] #### ANCA #### [facility] Immun[facility] [address] [place], [place] [phone] eGFR-All Other Races 20 . Normal [facility] Reference Lab Comment on above: Performed By: #### S EPG, RFP, C3COMP, C4COMP #### [facility] Routine Lab [address] [place], [place] [address] #### DNAAB #### [facility] Immuno Assay [address] [place] [address] #### ANCA #### [facility] [address] [place] [address] Glucose [Mass/Vol] 122 mg/dL High 74-99 [facility] Reference Lab Comment on above: Performed By: #### S EPG, RFP, C3COMP, C4COMP #### [facility] Routine Lab [address] [address] #### DNAAB #### [facility] Immuno Assay [address] [place] [address] #### ANCA #### [facility] [address] [place] [address] Phosphate [Mass/Vol] 2.9 mg/dL Normal 2.7-4.8 [facility] Reference Lab Comment on above: Performed By: #### S EPG, RFP, C3COMP, C4COMP #### [facility] Routine Lab [address] [place], [place] [address] #### DNAAB #### [facility] Immuno Assay [address] [place], [place] [address] #### ANCA #### [facility] [address] [place], [place] [address] Potassium [Moles/Vol] 4.5 mmol/L Normal 3.7-5.1 [facility] Reference Lab Comment on above: Performed By: #### S EPG, RFP, C3COMP, C4COMP #### [facility] Routine Lab [address] [place], [place] [address] #### DNAAB #### [facility] Immuno Assay [address] [address] #### ANCA #### [facility] [address] [place] [address] Sodium [Moles/Vol] 140 mmol/L Normal 136-144 [facility] Reference Lab Comment on above: Performed By: #### S EPG, RFP, C3COMP, C4COMP #### [facility] Routine Lab [address] [place] [address] #### DNAAB #### [facility] Immuno Assay [address] [place], [place] [address] #### ANCA #### [facility] Immun[facility] [address] [place] [phone] Urea nitrogen [Mass/Vol] 48 mg/dL High 9-24 [facility] Reference Lab Comment on above: Performed By: #### S EPG, RFP, C3COMP, C4COMP #### [facility] Routine Lab [address] [place], [place] [address] #### DNAAB #### [facility] Immuno Assay [address] [place], [place] [address] #### ANCA #### [facility] [address] [place] [address] 25-OH Vitamin D Totalon 11-2 25-OH Vitamin D Total 56.1 ng/mL Normal 30.0-100.0 [facility] Comment on above: Result Comment: <10 [id number] Optimal Level>100 Possible Toxicity Performed By: #### C AC ####[place] [address]#### IPTH, D25OH ####[facility] [place], [place] [address] [place] [address] INTACT PTHon 07-09-2018 INTACT PTH 229.7 pg/mL High 14.0-72.0 [facility] Comment on above: Performed By: #### C AC ####[place] [address]#### IPTH, D25OH ####[facility] [place] [address] Calcium - [address] Labon Calcium mass conc 10.1 mg/dL Normal 8.6-10.5 [facility] Comment on above: Performed By: #### C AC ####[place] [address]#### IPTH, D25OH ####[facility] [place], [place] [address] [place] [address] US THYROIDon 07-08-2018 US THYROID EXAM: US THYROID, 07/08/2018 08:50 AMCLINICAL INDICATIONS: thyroid [id number]:Thyroid nodule COMPARISON: Ultrasound thyroid 10/11/2016.TECHNIQUE: Real-time, grayscale ultrasound evaluation of [...] for tissuesampling.* Lesions are classified using the [place] [employer] guidelines [id number]. (Thyroid, Volume 26, #1, 2016) [facility] IMPRESSION: Multiple subcentimeter thyroid nodules present bilaterally, overall similar in appearance to prior exam. None of these meet size criteria for tissue sampling. * Lesions are classified using the [place] [employer] guidelines of 2015. (Thyroid, Volume 26, #1, 2016) Invalid Interpretation Code RADIOLOGY EXAM: US THYROID, 07/08/2018 08:50 AM CLINICAL [...] cm, not clearly identified on prior study. Invalid Interpretation Code RADIOLOGY User, Interfaces - 07/08/2018 10:37 AM EST EXAM: US THYROID, 07/08/2018 [...] sampling. * Lesions are classified using the [place] [employer] guidelines of 2015. (Thyroid, Volume 26, #1, 2016) Invalid Interpretation Code RADIOLOGY Vital Signs Date Time Vital Sign Value Performing Clinician Facility 03-16-2025 08:22-0400 Body height 170.2 cm Pulm Wstr Work Phone: [facility] 03-16-2025 08:22-0400 Body mass index (BMI) [Ratio] 26.53 kg/m2 Pulm Wstr Work Phone: [facility] 03-16-2025 08:22-0400 Body weight 76.84 kg Pulm Wstr Work Phone: [facility] 02-09-2025 13:35-0400 Body mass index (BMI) [Ratio] 27.28 kg/m2 Deanne Shen APRN.MAMMOGRAPHER Work Phone: [facility] 02-09-2025 13:35-0400 Body weight 79 kg Deanne Shen APRN.MAMMOGRAPHER Work Phone: [facility] 02-09-2025 13:35-0400 Diastolic blood pressure 74 mm[Hg] Deanne Shen APRN.MAMMOGRAPHER Work Phone: [facility] 02-09-2025 13:35-0400 Heart rate 80 /min Deanne Shen APRN.MAMMOGRAPHER Work Phone: [facility] 02-09-2025 13:35-0400 SaO2% (BldA) [Mass fraction] 96 % Deanne Shen APRN.MAMMOGRAPHER Work Phone: [facility] 02-09-2025 13:35-0400 Systolic blood pressure 143 mm[Hg] Deanne Shen APRN.MAMMOGRAPHER Work Phone: 2(622)374-[address] [place] [address] 02-09-2025 09:13-0400 Body height 170.[address] Julio Licea MD Work Phone: 9(384)836-468143 [place] [address] 02-09-2025 09:13-0400 Body mass index (BMI) [Ratio] 27.1 kg/m2 Dr. Julio Licea MD Work Phone: 4(061)295-867543 [place] [address] 02-09-2025 09:13-0400 Body temperature 96.8 [degF] Dr. Julio Licea MD Work Phone: 5(569)311-063543 [place] [address] 02-09-2025 09:13-0400 Body weight 78.[address] Julio Licea MD Work Phone: 9(527)459-260243 [place] [address] 02-09-2025 09:13-0400 Diastolic blood pressure 60 mm[Hg] Dr. Julio Licea MD Work Phone: 3(543)061-016043 [place] [address] 02-09-2025 09:13-0400 Heart rate 51 /min Dr. Julio Licea MD Work Phone: 6(689)361-320643 [place] [address] 02-09-2025 09:13-0400 Respiratory rate 20 /min Dr. Julio Licea MD Work Phone: 2(671)815-950243 [place] [address] 02-09-2025 09:13-0400 SaO2% (BldA) [Mass fraction] 91 % Dr. Julio Licea MD Work Phone: 6(971)008-900943 [place] [address] 02-09-2025 09:13-0400 Systolic blood pressure 156 mm[Hg] Dr. Julio Licea MD Work Phone: 9(763)461-496843 [place] [address] 02-02-2025 08:09-0400 Body mass index (BMI) [Ratio] 26.93 kg/m2 Deanne Shen APRN.MAMMOGRAPHER Work Phone: [facility] 02-02-2025 08:09-0400 Body weight 78 kg Deanne Shen APRN.MAMMOGRAPHER Work Phone: [facility] 02-02-2025 08:09-0400 Diastolic blood pressure 60 mm[Hg] Deanne Shen APRN.MAMMOGRAPHER Work Phone: [facility] 02-02-2025 08:09-0400 Heart rate 79 /min Deanne Shen APRN.MAMMOGRAPHER Work Phone: [facility] 02-02-2025 08:09-0400 SaO2% (BldA) [Mass fraction] 93 % Deanne Shen APRN.MAMMOGRAPHER Work Phone: [facility] 02-02-2025 08:09-0400 Systolic blood pressure 133 mm[Hg] Deanne Shen APRN.MAMMOGRAPHER Work Phone: [facility] 12-17-2024 08:48-0400 Body mass index (BMI) [Ratio] 27.2 kg/m2 Dr. Julio Licea MD Work Phone: [facility] 12-17-2024 08:48-0400 Body temperature 97.3 [degF] Dr. Julio Licea MD Work Phone: [facility] 12-17-2024 08:48-0400 Body weight 78.[address] Julio Licea MD Work Phone: [facility] 12-17-2024 08:48-0400 Diastolic blood pressure 54 mm[Hg] Dr. Julio Licea MD Work Phone: [facility] 12-17-2024 08:48-0400 Heart rate 70 /min Dr. Julio Licea MD Work Phone: [facility] 12-17-2024 08:48-0400 Respiratory rate 18 /min Dr. Julio Licea MD Work Phone: [facility] 12-17-2024 08:48-0400 SaO2% (BldA) [Mass fraction] 92 % Dr. Julio Licea MD Work Phone: [facility] 12-17-2024 08:48-0400 Systolic blood pressure 117 mm[Hg] Dr. Jluio Licea MD Work Phone: [facility] 11-18-2024 14:57-0400 Heart rate 66 /min DR JANN STEIN MD [address] [place] [address] 11-18-2024 13:30-0400 Heart rate 70 /min DR JANN STEIN MD [address] [place] [address] 11-18-2024 13:30-04[address] Cuff Size DR JANN STEIN MD [address] [place] [address] 11-18-2024 13:30-[address] JANN STEIN MD [address] [place] [address] 11-18-2024 13:30-[address] JANN STEIN MD [address] [place] [address] 11-18-2024 13:30-0400 Diastolic Blood Pressure Non-Invasive 83 mm[Hg] DR JANN STEIN MD [address] [place] [address] 11-18-2024 13:30-0400 Reason For Taking VItal Signs DR JANN STEIN MD [address] [place] [address] 11-18-2024 13:30-0400 Respiratory rate 18 /min DR JANN STEIN MD [address] [place] [address] 11-18-2024 13:30-0400 Systolic Blood Pressure Non-Invasive 125 mm[Hg] DR JANN STEIN MD [address] [place] [address] 11-18-2024 12:59-0400 Body temperature 98.78 [degF] DR JANN STEIN MD [address] [place] [address] 11-18-2024 12:59-0400 Body weight 77.[address] JANN STEIN MD [address] [place] [address] 11-18-2024 12:59-0400 Diastolic Blood Pressure Non-Invasive 57 mm[Hg] DR JANN STEIN MD [address] [place] [address] 11-18-2024 12:59-0400 Reason For Taking VItal Signs DR JANN STEIN MD [address] [place] [address] 11-18-2024 12:59-0400 Respiratory rate 18 /min DR JANN STEIN MD [address] [place] [address] 11-18-2024 12:59-0400 Systolic Blood Pressure Non-Invasive 110 mm[Hg] DR JANN STEIN MD [address] [place] [address] 11-18-2024 12:58-0400 Heart rate 71 /min DR JANN STEIN MD [address] [place] [address] 11-18-2024 12:34-0400 Diastolic Blood Pressure Non-Invasive 57 mm[Hg] DR JANN STEIN MD [address] [place] [address] 11-18-2024 12:34-0400 Systolic Blood Pressure Non-Invasive 132 mm[Hg] DR JANN STEIN MD [address] [place] [address] 11-18-2024 09:11-0400 Body temperature 98.96 [degF] DR JANN STEIN MD [address] [place] [address] 11-18-2024 09:11-0400 Body weight 77.[address] JANN STEIN MD [address] [place] [address] 11-18-2024 09:11-0400 Reason For Taking VItal Signs DR JANN STEIN MD [address] [place] [address] 11-18-2024 09:11-0400 Respiratory rate 18 /min DR JANN STEIN MD [address] [place] [address] 11-18-2024 08:28-0400 Heart rate 86 /min DR JANN STEIN MD [address] [place] [address] 11-18-2024 08:23-0400 Blood Pressure Cuff Size DR JANN STEIN MD [address] [place] [address] 11-18-2024 08:23-[address] JANN STEIN MD [address] [place] [address] 11-18-2024 08:23-[address] JANN STEIN MD [address] [place] [address] 11-18-2024 06:34-0400 Blood Pressure Cuff Size DR JANN STEIN MD [address] [place] [address] 11-18-2024 06:34-[address] JANN STEIN MD [address] [place] [address] 11-18-2024 06:34-[address] JANN STEIN MD [address] [place] [address] 11-18-2024 06:34-0400 Body temperature 98.06 [degF] DR JANN STEIN MD [address] [place] [address] 11-18-2024 06:20-0400 Heart rate 70 /min DR JANN STEIN MD [address] [place] [address] 11-18-2024 04:44-0400 Mean blood pressure 91 mm[Hg] DR JANN STEIN MD [address] [place] [address] 11-18-2024 04:44-0400 Body temperature 98.06 [degF] DR JANN STEIN MD [address] [place] [address] 11-17-2024 22:23-0400 Body temperature 98.24 [degF] DR JANN STEIN MD [address] [place] [address] 11-17-2024 19:11-0400 Heart rate 68 /min DR JANN STEIN MD [address] [place] [address] 11-17-2024 18:13-0400 Mean blood pressure 93 mm[Hg] DR JANN STEIN MD [address] [place] [address] 11-17-2024 17:43-0400 Mean blood pressure 84 mm[Hg] DR JANN STEIN MD [address] [place] [address] 11-17-2024 14:47-0400 Diastolic blood pressure 55 mm[Hg] DR JANN STEIN MD [address] [place] [address] 11-17-2024 14:47-0400 Mean blood pressure 92 mm[Hg] DR JANN STEIN MD [address] [place] [address] 11-17-2024 14:47-0400 Systolic blood pressure 160 mm[Hg] DR JANN STEIN MD [address] [place] [address] 11-17-2024 14:06-0400 Diastolic blood pressure 53 mm[Hg] DR JANN STEIN MD [address] [place] [address] 11-17-2024 14:06-0400 Mean blood pressure 86 mm[Hg] DR JANN STEIN MD [address] [place] [address] 11-17-2024 14:06-0400 Systolic blood pressure 150 mm[Hg] DR JANN STEIN MD [address] [place] [address] 11-17-2024 12:47-0400 Body height 171.[address] JANN STEIN MD [address] [place] [address] 11-17-2024 12:47-0400 Body weight 77.[address] JANN STEIN MD [address] [place] [address] 11-17-2024 12:47-0400 Body weight 26.35 kg/m2 DR JANN STEIN MD [address] [place] [address] 11-17-2024 09:00-0400 Heart rate 65 /min DR JANN STEIN MD [address] [place] [address] 11-05-2024 16:30-0400 Diastolic Blood Pressure Non-Invasive 62 mm[Hg] DR JANN STEIN MD [address] [place] [address] 11-05-2024 16:30-0400 Heart rate 72 /min DR JANN STEIN MD [address] [place] [address] 11-05-2024 16:30-0400 Systolic Blood Pressure Non-Invasive 144 mm[Hg] DR JANN STEIN MD [address] [place] [address] 11-05-2024 15:00-0400 Diastolic Blood Pressure Non-Invasive 61 mm[Hg] DR JANN STEIN MD [address] [place] [address] 11-05-2024 15:00-0400 Systolic Blood Pressure Non-Invasive 136 mm[Hg] DR JANN STEIN MD [address] [place] [address] 11-05-2024 14:30-0400 Diastolic Blood Pressure Non-Invasive 52 mm[Hg] DR JANN STEIN MD [address] [place] [address] 11-05-2024 14:30-0400 Heart rate 70 /min DR JANN STEIN MD [address] [place] [address] 11-05-2024 14:30-0400 Systolic Blood Pressure Non-Invasive 161 mm[Hg] DR JANN STEIN MD [address] [place] [address] 11-05-2024 13:59-0400 Respiratory rate 16 /min DR JANN STEIN MD [address] [place] [address] 11-05-2024 13:40-0400 Respiratory rate 16 /min DR JANN STEIN MD [facility] 11-05-2024 07:40-0400 Body height 170.[address] JANN STEIN MD [address] 11-05-2024 07:40-0400 Body temperature 98.42 [degF] DR JANN STEIN MD [address] [place] [address] 11-05-2024 07:40-0400 Body weight 76.[address] JANN STEIN MD [address] [place] [address] 11-05-2024 07:40-0400 Heart rate 66 /min DR JANN STEIN MD [address] [place] [address] 11-05-2024 07:40-0400 Respiratory rate 16 /min DR JANN STEIN MD [address] [place] [address] 09-22-2024 13:06-0500 Body mass index (BMI) [Ratio] 27.57 kg/m2 Deanne Shen GLACIOLOGIST.MAMMOGRAPHER Work Phone: [facility] 09-22-2024 13:06-0500 Body weight 79.83 kg Deanne Shen APRN.MAMMOGRAPHER Work Phone: [facility] 09-22-2024 13:06-0500 Diastolic blood pressure 57 mm[Hg] Deanne Shen GLACIOLOGIST.MAMMOGRAPHER Work Phone: [facility] 09-22-2024 13:06-0500 Heart rate 90 /min Deanne Shen GLACIOLOGIST.MAMMOGRAPHER Work Phone: [facility] 09-22-2024 13:06-0500 Systolic blood pressure 114 mm[Hg] Deanne Shen APRN.MAMMOGRAPHER Work Phone: [facility] 09-17-2024 08:44-0500 Body mass index (BMI) [Ratio] 27.25 kg/m2 Deanne Shen APRN.MAMMOGRAPHER Work Phone: [facility] 09-17-2024 08:44-0500 Body weight 78.93 kg Deanne Shen APRN.MAMMOGRAPHER Work Phone: [facility] 09-17-2024 08:44-0500 Diastolic blood pressure 65 mm[Hg] Deanne Shen APRN.MAMMOGRAPHER Work Phone: [facility] 09-17-2024 08:44-0500 Heart rate 76 /min Deanne Shen APRN.MAMMOGRAPHER Work Phone: [facility] 09-17-2024 08:44-0500 Respiratory rate 14 /min Deanne Shen APRN.MAMMOGRAPHER Work Phone: [facility] 09-17-2024 08:44-0500 SaO2% (BldA) [Mass fraction] 94 % Deanne Shen APRN.MAMMOGRAPHER Work Phone: [facility] 09-17-2024 08:44-0500 Systolic blood pressure 124 mm[Hg] Deanne Shen APRN.MAMMOGRAPHER Work Phone: [facility] 07-06-2024 09:44-0500 Diastolic blood pressure 67 mm[Hg] Deanne Shen APRN.MAMMOGRAPHER Work Phone: [facility] 07-06-2024 09:44-0500 Systolic blood pressure 152 mm[Hg] Deanne Shen APRN.MAMMOGRAPHER Work Phone: [facility] 07-06-2024 09:31-0500 Body mass index (BMI) [Ratio] 26.63 kg/m2 Deanne Shen APRN.MAMMOGRAPHER Work Phone: [facility] 07-06-2024 09:31-0500 Body weight 77.11 kg Deanne Shen APRN.MAMMOGRAPHER Work Phone: [facility] 07-06-2024 09:31-0500 Heart rate 66 /min Deanne Shen APRN.MAMMOGRAPHER Work Phone: [facility] 06-11-2024 10:33-0400 Diastolic blood pressure 70 mm[Hg] Jaylene Callejas MD Work Phone: [facility] 06-11-2024 10:33-0400 Systolic blood pressure 118 mm[Hg] Jaylene Callejas MD Work Phone: [facility] 06-11-2024 09:45-0400 Heart rate 66 /min Jaylene Callejas MD Work Phone: [facility] 06-11-2024 09:45-0400 SaO2% (BldA) [Mass fraction] 98 % Jaylene Callejas MD Work Phone: [facility] 06-11-2024 09:12-0400 Body mass index (BMI) [Ratio] 27.04 kg/m2 Jaylene Callejas MD Work Phone: [facility] 06-11-2024 09:12-0400 Body temperature 96.91 [degF] Jaylene Callejas MD Work Phone: [facility] 06-11-2024 09:12-0400 Body weight 78.3 kg Jaylene Callejas MD Work Phone: [facility] 06-11-2024 09:12-0400 Respiratory rate 16 /min Jaylene Callejas MD Work Phone: [facility] 05-25-2024 15:07-0400 Body height 170.2 cm Jaylene Callejas MD Work Phone: [facility] 05-25-2024 15:07-0400 Body mass index (BMI) [Ratio] 27.03 kg/m2 Jaylene Callejas MD Work Phone: [facility] 05-25-2024 15:07-0400 Body temperature 97.59 [degF] Jaylene Callejas MD Work Phone: [facility] 05-25-2024 15:07-0400 Body weight 78.29 kg Jaylene Callejas MD Work Phone: [facility] 05-25-2024 15:07-0400 Diastolic blood pressure 58 mm[Hg] Jaylene Callejas MD Work Phone: [facility] 05-25-2024 15:07-0400 Heart rate 85 /min Jaylene Callejas MD Work Phone: [facility] 05-25-2024 15:07-0400 Respiratory rate 16 /min Jaylene Callejas MD Work Phone: [facility] 05-25-2024 15:07-0400 SaO2% (BldA) [Mass fraction] 98 % Jaylene Callejas MD Work Phone: [facility] 05-25-2024 15:07-0400 Systolic blood pressure 118 mm[Hg] Jaylene Callejas MD Work Phone: [facility] 05-18-2024 14:05-0400 Body mass index (BMI) [Ratio] 26.78 kg/m2 Deanne Shen GLACIOLOGIST.MAMMOGRAPHER Work Phone: [facility] 05-18-2024 14:05-0400 Body weight 77.56 kg Deanne Shen GLACIOLOGIST.MAMMOGRAPHER Work Phone: [facility] 05-18-2024 14:05-0400 Diastolic blood pressure 61 mm[Hg] Deanne Shen GLACIOLOGIST.MAMMOGRAPHER Work Phone: [facility] 05-18-2024 14:05-0400 Heart rate 91 /min Deanne Shen GLACIOLOGIST.MAMMOGRAPHER Work Phone: [facility] 05-18-2024 14:05-0400 Respiratory rate 18 /min Deanne Shen GLACIOLOGIST.MAMMOGRAPHER Work Phone: [facility] 05-18-2024 14:05-0400 Systolic blood pressure 134 mm[Hg] Deanne Shen GLACIOLOGIST.MAMMOGRAPHER Work Phone: [facility] 05-12-2024 14:55-0400 Blood Pressure Cuff Size DAVIDE STARKS MD [facility] 05-12-2024 14:55-0400 Blood Pressure Location DAVIDE STARKS MD [facility] 05-12-2024 14:55-0400 Blood Pressure Method DAVIDE STARKS MD [facility] 05-12-2024 14:55-0400 Body temperature 97.88 [degF] DAVIDE STARKS MD [address] 05-12-2024 14:55-0400 Diastolic Blood Pressure Non-Invasive 50 mm[Hg] DAVIDE STARKS MD [address] [place] [address] 05-12-2024 14:55-0400 Heart rate 63 /min DAVIDE STARKS MD [address] [place] [address] 05-12-2024 14:55-0400 Reason For Taking VItal Signs DAVIDE STARKS MD [address] [place] [address] 05-12-2024 14:55-0400 Respiratory rate 18 /min DAVIDE STARKS MD [address] [place] [address] 05-12-2024 14:55-0400 Systolic Blood Pressure Non-Invasive 124 mm[Hg] DAVIDE STARKS MD [address] [place] [address] 05-12-2024 11:34-0400 Body temperature 98.06 [degF] DAVIDE STARKS MD [address] [place] [address] 05-12-2024 11:34-0400 Diastolic Blood Pressure Non-Invasive 48 mm[Hg] DAVIDE STARKS MD [address] [place] [address] 05-12-2024 11:34-0400 Heart rate 81 /min DAVIDE STARKS MD [address] [place] [address] 05-12-2024 11:34-0400 Reason For Taking VItal Signs DAVIDE STARKS MD [address] [place] [address] 05-12-2024 11:34-0400 Respiratory rate 18 /min DAVIDE STARKS MD [address] [place] [address] 05-12-2024 11:34-0400 Systolic Blood Pressure Non-Invasive 124 mm[Hg] DAVIDE STARKS MD [address] [place] [address] 05-12-2024 08:44-0400 Heart rate 67 /min DAVIDE STARKS MD [address] [place] [address] 05-12-2024 08:38-0400 Heart rate 73 /min DAVIDE STARKS MD [address] [place] [address] 05-12-2024 08:38-0400 Reason For Taking VItal Signs DAVIDE STARKS MD [address] [place] [address] 05-12-2024 08:05-0400 Body temperature 97.7 [degF] DAVIDE STARKS MD [address] [place] [address] 05-12-2024 08:05-0400 Diastolic Blood Pressure Non-Invasive 45 mm[Hg] DAVIDE STARKS MD [address] [place] [address] 05-12-2024 08:05-0400 Respiratory rate 18 /min DAVIDE STARKS MD [address] [place] [address] 05-12-2024 08:05-0400 Systolic Blood Pressure Non-Invasive 114 mm[Hg] DAVIDE STARKS MD [address] [place] [address] 05-12-2024 04:49-0400 Blood Pressure Cuff Size DAVIDE STARKS MD [address] [place] [address] 05-12-2024 04:49-0400 Blood Pressure Location DAVIDE STARKS MD [address] [place] [address] 05-12-2024 04:49-0400 Blood Pressure Method DAVIDE STARKS MD [address] [place] [address] 05-11-2024 23:11-0400 Mean blood pressure 67 mm[Hg] DAVIDE STARKS MD [address] [place] [address] 05-11-2024 18:30-0400 Mean blood pressure 76 mm[Hg] DAVIDE STARKS MD [address] [place] [address] 05-11-2024 16:28-0400 Body temperature 97.7 [degF] DAVIDE STARKS MD [address] [place] [address] 05-11-2024 16:28-0400 Body weight 76.2 kg DAVIDE STARKS MD [address] [place] [address] 05-11-2024 12:25-0400 Body temperature 96.8 [degF] DAVIDE STARKS MD [address] [place] [address] 05-11-2024 12:25-0400 Body weight 79.6 kg DAVIDE STARKS MD [facility] 05-11-2024 12:05-0400 Mean blood pressure 82 mm[Hg] DAVIDE STARKS MD [facility] 05-11-2024 10:53-0400 Blood Pressure Method DAVIDE STARKS MD [address] 05-11-2024 10:52-0400 Blood Pressure Cuff Size DAVIDE STARKS MD [address] 05-11-2024 10:52-0400 Blood Pressure Location DAVIDE STARKS MD [address] 05-11-2024 08:23-0400 Heart rate 62 /min DAVIDE STARKS MD [address] 05-10-2024 08:11-0400 Heart rate 72 /min DAVIDE STARKS MD [address] 05-08-2024 16:43-0400 Body temperature 97.7 [degF] DAVIDE STARKS MD [address] 05-08-2024 16:43-0400 Body weight 75.6 kg DAVIDE STARKS MD [facility] 05-08-2024 05:30-0400 Body height 170 cm DAVIDE STARKS MD [facility] 05-08-2024 05:30-0400 Body weight 27.68 kg/m2 DAVIDE STARKS MD [facility] 05-08-2024 04:40-0400 Diastolic Blood Pressure Non-Invasive 64 mm[Hg] ROBERTA TIRADO MD [facility] 05-08-2024 04:40-0400 Heart rate 67 /min ROBERTA TIRADO MD [facility] 05-08-2024 04:40-0400 Respiratory rate 16 /min ROBERTA TIRADO MD [facility] 09-27-2024 04:40-0400 Systolic Blood Pressure Non-Invasive 149 mm[Hg] ROBERTA TIRADO MD [facility] 05-08-2024 04:33-0400 Diastolic Blood Pressure Non-Invasive 64 mm[Hg] ROBERTA TIRADO MD [facility] 05-08-2024 04:33-0400 Heart rate 67 /min ROBERTA TIRADO MD [facility] 05-08-2024 04:33-0400 Respiratory rate 16 /min ROBERTA TIRADO MD [facility] 05-08-2024 04:33-0400 Systolic Blood Pressure Non-Invasive 149 mm[Hg] ROBERTA TIRADO MD [facility] 05-08-2024 03:48-0400 Diastolic Blood Pressure Non-Invasive 61 mm[Hg] ROBERTA TIRADO MD [facility] 05-08-2024 03:48-0400 Heart rate 74 /min ROBERTA TIRADO MD [facility] 05-08-2024 03:48-0400 Respiratory rate 16 /min ROBERTA TIRADO MD [facility] 05-08-2024 03:48-0400 Systolic Blood Pressure Non-Invasive 154 mm[Hg] ROBERTA TIRADO MD [facility] 05-08-2024 03:09-0400 Body temperature 98.06 [degF] ROBERTA TIRADO MD [facility] 04-10-2024 11:26-0400 Body mass index (BMI) [Ratio] 26.63 kg/m2 Deanne Shen APRN.MAMMOGRAPHER Work Phone: [facility] 04-10-2024 11:26-0400 Body weight 77.11 kg Deanne Knoble GLACIOLOGIST.MAMMOGRAPHER Work Phone: [facility] 04-10-2024 11:26-0400 Diastolic blood pressure 58 mm[Hg] Deanne Shen GLACIOLOGIST.MAMMOGRAPHER Work Phone: [facility] 04-10-2024 11:26-0400 Heart rate 87 /min Deanne Shen GLACIOLOGIST.MAMMOGRAPHER Work Phone: [facility] 04-10-2024 11:26-0400 Respiratory rate 16 /min Deanne Shen GLACIOLOGIST.MAMMOGRAPHER Work Phone: [facility] 04-10-2024 11:26-0400 Systolic blood pressure 120 mm[Hg] Deanne Shen GLACIOLOGIST.MAMMOGRAPHER Work Phone: [facility] 02-25-2024 17:03-0400 Heart rate 73 /min DR CASEY TEMPLETON MD [address] 02-25-2024 17:03-0400 Reason For Taking VItal Signs DR CASEY TEMPLETON MD [address] 02-25-2024 17:03-0400 Respiratory rate 16 /min DR CASEY TEMPLETON MD [address] [place] [address] 02-25-2024 14:30-0400 Blood Pressure Cuff Size DR CASEY TEMPLETON MD [address] 02-25-2024 14:30-[address] CASEY TEMPLETON MD [address] 02-25-2024 14:30-[address] CASEY TEMPLETON MD [address] 02-25-2024 14:30-0400 Body temperature 97.88 [degF] DR CASEY TEMPLETON MD [address] 02-25-2024 14:30-0400 Diastolic Blood Pressure Non-Invasive 58 mm[Hg] DR CASEY TEMPLETON MD [address] 02-25-2024 14:30-0400 Heart rate 69 /min DR CASEY TEMPLETON MD [address] [place] [address] 02-25-2024 14:30-0400 Reason For Taking VItal Signs DR CASEY TEMPLETON MD [address] [place] [address] 02-25-2024 14:30-0400 Respiratory rate 18 /min DR CASEY TEMPLETON MD [address] [place] [address] 02-25-2024 14:30-0400 Systolic Blood Pressure Non-Invasive 134 mm[Hg] DR CASEY TEMPLETON MD [address] [place] [address] 02-25-2024 11:00-0400 Heart rate 77 /min DR CASEY TEMPLETON MD [address] [place] [address] 02-25-2024 10:39-0400 Blood Pressure Cuff Size DR CASEY TEMPLETON MD [address] [place] [address] 02-25-2024 10:39-[address] CASEY TEMPLETON MD [address] [place] [address] 02-25-2024 10:39-[address] CASEY TEMPLETON MD [address] [place] [address] 02-25-2024 10:39-0400 Body temperature 97.88 [degF] DR CASEY TEMPLETON MD [address] [place] [address] 02-25-2024 10:39-0400 Diastolic Blood Pressure Non-Invasive 58 mm[Hg] DR CASEY TEMPLETON MD [address] [place] [address] 02-25-2024 10:39-0400 Reason For Taking VItal Signs DR CASEY TEMPLETON MD [address] [place] [address] 02-25-2024 10:39-0400 Respiratory rate 18 /min DR CASEY TEMPLETON MD [address] [place] [address] 02-25-2024 10:39-0400 Systolic Blood Pressure Non-Invasive 130 mm[Hg] DR CASEY TEMPLETON MD [address] [place] [address] 02-25-2024 07:27-0400 Heart rate 75 /min DR CASEY TEMPLETON MD [address] [place] [address] 02-25-2024 06:28-0400 Blood Pressure Cuff Size DR CASEY TEMPLETON MD [address] [place] [address] 02-25-2024 06:28-[address] CASEY TEMPLETON MD [address] [place] [address] 02-25-2024 06:28-[address] CASEY TEMPLETON MD [address] [place] [address] 02-25-2024 06:28-0400 Body temperature 97.52 [degF] DR CASEY TEMPLETON MD [address] [place] [address] 02-25-2024 06:28-0400 Diastolic Blood Pressure Non-Invasive 51 mm[Hg] DR CASEY TEMPLETON MD [address] [place] [address] 02-25-2024 06:28-0400 Systolic Blood Pressure Non-Invasive 138 mm[Hg] DR CASEY TEMPLETON MD [address] [place] [address] 02-25-2024 02:21-0400 Mean blood pressure 89 mm[Hg] DR CASEY TEMPLETON MD [address] [place] [address] 02-24-2024 23:07-0400 Mean blood pressure 94 mm[Hg] DR CASEY TEMPLETON MD [address] [place] [address] 02-24-2024 23:04-0400 Mean blood pressure 94 mm[Hg] DR CASEY TEMPLETON MD [address] [place] [address] 02-24-2024 15:27-0400 Body temperature 98.06 [degF] DR CASEY TEMPLETON MD [address] [place] [address] 02-24-2024 15:27-0400 Body weight [address] CASEY TEMPLETON MD [address] [place] [address] 02-24-2024 11:19-0400 Body temperature 97.34 [degF] DR CASEY TEMPLETON MD [facility] 02-24-2024 11:19-0400 Body weight 77.[address] CASEY TEMPLETON MD [facility] 02-24-2024 08:14-0400 Heart rate 85 /min DR CASEY TEMPLETON MD [facility] 02-24-2024 06:12-0400 Body height 170.[address] CASEY TEMPLETON MD [facility] 02-24-2024 06:12-0400 Body weight 78.[address] CASEY TEMPLETON MD [facility] 02-24-2024 06:12-0400 Body weight 27.24 kg/m2 DR CASEY TEMPLETON MD [facility] 02-10-2024 14:29-0400 Body mass index (BMI) [Ratio] 27.1 kg/m2 Yaya Sun MD Work Phone: [facility] 02-10-2024 14:290400 Body weight 78.47 kg Yaya Sun MD Work Phone: [facility] 02-10-2024 14:29-0400 Diastolic blood pressure 52 mm[Hg] Yaya Sun MD Work Phone: [facility] 02-10-2024 14:29-0400 Heart rate 76 /min Yaya Sun MD Work Phone: [facility] 02-10-2024 14:29-0400 Systolic blood pressure 132 mm[Hg] Yaya Sun MD Work Phone: [facility] 11-29-2023 16:09-0400 Body temperature 99.3 [degF] Julio Licea MD Work Phone: [facility] 11-29-2023 16:09-0400 Body weight 78.47 kg Julio Licea MD Work Phone: [facility] 11-29-2023 16:09-0400 Diastolic blood pressure 60 mm[Hg] Julio Licea MD Work Phone: [facility] 11-29-2023 16:09-0400 Heart rate 71 /min Julio Licea MD Work Phone: [facility] 11-29-2023 16:09-0400 Respiratory rate 20 /min Julio Licea MD Work Phone: [facility] 11-29-2023 16:09-0400 SaO2% (BldA) [Mass fraction] 93 % Julio Licea MD Work Phone: [facility] 11-29-2023 16:09-0400 Systolic blood pressure 130 mm[Hg] Julio Licea MD Work Phone: [facility] 11-19-2023 11:08-0400 Body temperature 98.24 [degF] MIKE DANIELSON MD [facility] 11-19-2023 11:08-0400 Diastolic Blood Pressure Non-Invasive 47 mm[Hg] MIKE DANIELSON MD [address] 11-19-2023 11:08-0400 Heart rate 70 /min MIKE DANIELSON MD [address] 11-19-2023 11:08-0400 Mean blood pressure 68 mm[Hg] MIKE DANIELSON MD [address] 11-19-2023 11:08-0400 Reason For Taking VItal Signs MIKE DANIELSON MD [facility] 11-19-2023 11:08-0400 Respiratory rate 16 /min MIKE DANIELSON MD [facility] 11-19-2023 11:08-0400 Systolic Blood Pressure Non-Invasive 110 mm[Hg] MIKE DANIELSON MD [address] 11-19-2023 08:21-0400 Diastolic Blood Pressure Non-Invasive 53 mm[Hg] MIKE DANIELSON MD [address] [place] [address] 11-19-2023 08:21-0400 Heart rate 88 /min MIKE DANIELSON MD [address] [place] [address] 11-19-2023 08:21-0400 Mean blood pressure 79 mm[Hg] MIKE DANIELSON MD [address] [place] [address] 11-19-2023 08:21-0400 Systolic Blood Pressure Non-Invasive 122 mm[Hg] MIKE DANIELSON MD [address] [place] [address] 11-19-2023 08:14-0400 Heart rate 89 /min MIKE DANIELSON MD [address] [place] [address] 11-19-2023 07:24-0400 Blood Pressure Cuff Size MIKE DANIELSON MD [address] [place] [address] 11-19-2023 07:24-0400 Blood Pressure Location MIKE DANIELSON MD [address] [place] [address] 11-19-2023 07:24-0400 Blood Pressure Method MIKE DANIELSON MD [address] [place] [address] 11-19-2023 07:24-0400 Body temperature 97.7 [degF] MIKE DANIELSON MD [address] [place] [address] 11-19-2023 07:24-0400 Diastolic Blood Pressure Non-Invasive 46 mm[Hg] MIKE DANIELSON MD [address] [place] [address] 11-19-2023 07:24-0400 Heart rate 84 /min MIKE DANIELSON MD [address] [place] [address] 11-19-2023 07:24-0400 Reason For Taking VItal Signs MIKE DANIELSON MD [address] [place] [address] 11-19-2023 07:24-0400 Respiratory rate 18 /min MIKE DANIELSON MD [address] [place] [address] 11-19-2023 07:24-0400 Systolic Blood Pressure Non-Invasive 108 mm[Hg] MIKE DANIELSON MD [address] [place] [address] 11-19-2023 03:50-0400 Blood Pressure Location MIKE DANIELSON MD [address] [place] [address] 11-19-2023 03:50-0400 Blood Pressure Method MIKE DANIELSON MD [address] [place] [address] 11-19-2023 03:50-0400 Body temperature 98.24 [degF] MIKE DANIELSON MD [address] [place] [address] 11-19-2023 03:50-0400 Reason For Taking VItal Signs MIKE DANIELSON MD [address] [place] [address] 11-19-2023 03:50-0400 Respiratory rate 20 /min MIKE DANIELSON MD [address] [place] [address] 11-19-2023 02:27-0400 Blood Pressure Location MIKE DANIELSON MD [address] [place] [address] 11-19-2023 02:27-0400 Blood Pressure Method MIKE DANIELSON MD [address] [place] [address] 11-19-2023 02:27-0400 Mean blood pressure 82 mm[Hg] MIKE DANIELSON MD [address] [place] [address] 11-18-2023 12:26-0400 Body temperature 97.88 [degF] MIKE DANIELSON MD [address] [place] [id number] 11-18-2023 12:26-0400 Body weight 76.5 kg MIKE DANIELSON MD [address] [place] [id number] 11-18-2023 09:03-0400 Body temperature 98.78 [degF] MIKE DANIELSON MD [address] [place] [id number] 11-18-2023 09:03-0400 Body weight 77.6 kg MIKE DANIELSON MD [address] [place] [id number] 11-18-2023 08:04-0400 Heart rate 84 /min MIKE DANIELSON MD [facility] 11-18-2023 07:02-0400 Blood Pressure Cuff Size MIKE DANIELSON MD [facility] 11-18-2023 07:02-0400 Body weight 78 kg MIKE DANIELSON MD [facility] 11-18-2023 03:44-0400 Blood Pressure Cuff Size MIKE DANIELSON MD [facility] 11-17-2023 11:35-0400 Body temperature 98.6 [degF] MIKE DANIELSON MD [facility] 11-17-2023 07:48-0400 Heart rate 102 /min MIKE DANIELSON MD [facility] 11-15-2023 23:39-0400 Body height 170.2 cm MIKE DANIELSON MD [facility] 11-15-2023 23:39-0400 Body weight 26.68 kg/m2 MIKE DANIELSON MD [facility] 11-15-2023 22:02-0400 Body temperature 97.52 [degF] NIDAL CHOUJAA DO [facility] 11-15-2023 22:02-0400 Diastolic Blood Pressure Non-Invasive 72 mm[Hg] NIDAL CHOUJAA DO [facility] 11-15-2023 22:02-0400 Heart rate 74 /min NIDAL CHOUJAA DO [facility] 11-15-2023 22:02-0400 Respiratory rate 16 /min NIDAL CHOUJAA DO [facility] 11-15-2023 22:02-0400 Systolic Blood Pressure Non-Invasive 131 mm[Hg] NIDAL CHOUJAA DO [facility] 11-15-2023 21:10-0400 Diastolic Blood Pressure Non-Invasive 48 mm[Hg] NIDAL CHOUJAA DO [facility] 11-15-2023 21:10-0400 Heart rate 70 /min NIDAL CHOUJAA DO [facility] 11-15-2023 21:10-0400 Respiratory rate 16 /min NIDAL CHOUJAA DO [facility] 11-15-2023 21:10-0400 Systolic Blood Pressure Non-Invasive 126 mm[Hg] NIDAL CHOUJAA DO [facility] 11-15-2023 20:24-0400 Diastolic Blood Pressure Non-Invasive 66 mm[Hg] NIDAL CHOUJAA DO [facility] 11-15-2023 20:24-0400 Heart rate 70 /min NIDAL CHOUJAA DO [facility] 11-15-2023 20:24-0400 Respiratory rate 14 /min NIDAL CHOUJAA DO [facility] 11-15-2023 20:24-0400 Systolic Blood Pressure Non-Invasive 112 mm[Hg] NIDAL CHOUJAA DO [facility] 11-15-2023 18:22-0400 Reason For Taking VItal Signs NIDAL CHOUJAA DO [facility] 11-15-2023 16:23-0400 Body temperature 97.52 [degF] NIDAL CHOUJAA DO [facility] 11-15-2023 16:23-0400 Diastolic blood pressure 72 mm[Hg] NIDAL CHOUJAA DO [facility] 11-15-2023 16:23-0400 Systolic blood pressure 131 mm[Hg] NIDAL CHOUJAA DO [facility] 11-15-2023 11:51-0400 Body height 170.2 cm NIDAL CHOUJAA DO [facility] 11-15-2023 11:51-0400 Body temperature 97.88 [degF] NIDAL CHOUJAA DO [facility] 11-15-2023 11:51-0400 Body weight 77.9 kg NIDAL CHOUJAA DO [facility] 06-25-2023 11:08-0500 Body height 171.5 cm Pacc 2 Work Phone: [facility] 06-25-2023 11:08-0500 Body temperature 98.2 [degF] Pacc 2 Work Phone: [facility] 06-25-2023 11:08-0500 Body weight 78.93 kg Pacc 2 Work Phone: [facility] 06-25-2023 11:08-0500 Diastolic blood pressure 56 mm[Hg] Pacc 2 Work Phone: [facility] 06-25-2023 11:08-0500 Heart rate 73 /min Pacc 2 Work Phone: [facility] 06-25-2023 11:08-0500 Respiratory rate 18 /min Pacc 2 Work Phone: [facility] 06-25-2023 11:08-0500 SaO2% (BldA) [Mass fraction] 97 % Pacc 2 Work Phone: [facility] 06-25-2023 11:08-0500 Systolic blood pressure 141 mm[Hg] Pacc 2 Work Phone: [facility] 05-21-2023 10:44-0400 Body height 170.2 cm Yaya Sun MD Work Phone: [facility] 05-21-2023 10:44-0400 Body weight 79.61 kg Yaya Sun MD Work Phone: [facility] 05-21-2023 10:44-0400 Diastolic blood pressure 70 mm[Hg] Yaya Sun MD Work Phone: [facility] 05-21-2023 10:44-0400 Heart rate 79 /min Yaya Sun MD Work Phone: [facility] 05-21-2023 10:44-0400 Systolic blood pressure 172 mm[Hg] Yaya Sun MD Work Phone: [facility] 05-17-2023 15:07-0400 Body temperature 97.59 [degF] Sarah Denbow PA-C Work Phone: [facility] 05-17-2023 15:07-0400 Body weight 78.74 kg Sarah Denbow PA-C Work Phone: [facility] 05-17-2023 15:07-0400 Diastolic blood pressure 71 mm[Hg] Sarah Denbow PA-C Work Phone: [facility] 05-17-2023 15:07-0400 Heart rate 85 /min Sarah Denbow PA-C Work Phone: [facility] 05-17-2023 15:07-0400 Respiratory rate 18 /min Sarah Denbow PA-C Work Phone: [facility] 05-17-2023 15:07-0400 SaO2% (BldA) [Mass fraction] 94 % Sarah Denbow PA-C Work Phone: [facility] 05-17-2023 15:07-0400 Systolic blood pressure 144 mm[Hg] Sarah Denbow PA-C Work Phone: [facility] 09-06-2022 11:32-0500 Diastolic blood pressure 68 mm[Hg] Julio Licea MD Work Phone: [facility] 09-06-2022 11:32-0500 Systolic blood pressure 142 mm[Hg] Julio Licea MD Work Phone: [facility] 09-06-2022 11:05-0500 Body height 170.2 cm Julio Licea MD Work Phone: [facility] 09-06-2022 11:05-0500 Body weight 78.02 kg Julio Licea MD Work Phone: [facility] 09-06-2022 11:05-0500 Heart rate 60 /min Julio Licea MD Work Phone: [facility] 09-06-2022 11:05-0500 Respiratory rate 16 /min Julio Licea MD Work Phone: [facility] 02-22-2022 11:05-0400 Body weight 75.75 kg Julio Licea MD Work Phone: [facility] 02-22-2022 11:05-0400 Diastolic blood pressure 62 mm[Hg] Julio Licea MD Work Phone: [facility] 02-22-2022 11:05-0400 Heart rate 52 /min Julio Licea MD Work Phone: [facility] 02-22-2022 11:05-0400 Respiratory rate 18 /min Julio Licea MD Work Phone: [facility] 02-22-2022 11:05-0400 Systolic blood pressure 128 mm[Hg] Julio Licea MD Work Phone: [facility] 02-11-2022 13:44-0400 Body height 170.[address] Julio Licea Work Phone: [facility] Work Phone: 02-11-2022 13:44-0400 Body mass index (BMI) [Ratio] 26.6 kg/m2 Dr. Julio Licea Work Phone: [facility] Work Phone: 02-11-2022 13:44-0400 Body temperature 97.4 [degF] Dr. Julio Licea Work Phone: [facility] Work Phone: 02-11-2022 13:44-0400 Body weight 77.[address] Julio Licea Work Phone: [facility] Work Phone: 02-11-2022 13:44-0400 Diastolic blood pressure 71 mm[Hg] Dr. Julio Licea Work Phone: [facility] Work Phone: 02-11-2022 13:44-0400 Heart rate 62 /min Dr. Julio Licea Work Phone: [facility] Work Phone: 02-11-2022 13:44-0400 Respiratory rate 15 /min Dr. Julio Licea Work Phone: [facility] Work Phone: 02-11-2022 13:44-0400 SaO2% (BldA) [Mass fraction] 96 % Dr. Julio Licea Work Phone: [facility] Work Phone: 02-11-2022 13:44-0400 Systolic blood pressure 146 mm[Hg] Dr. Julio Licea Work Phone: [facility] Work Phone: 02-11-2022 13:14-0400 Body temperature 98.01 [degF] Lisa Irizarry APRN.MAMMOGRAPHER Work Phone: [facility] 02-11-2022 13:14-0400 Body weight 77.11 kg Lisa Irizarry APRN.MAMMOGRAPHER Work Phone: [facility] 02-11-2022 13:14-0400 Diastolic blood pressure 60 mm[Hg] Lisa Irizarry APRN.MAMMOGRAPHER Work Phone: [facility] 02-11-2022 13:14-0400 Heart rate 57 /min Lisa Irizarry APRN.MAMMOGRAPHER Work Phone: [facility] 02-11-2022 13:14-0400 Respiratory rate 20 /min Lisa Irizarry APRN.MAMMOGRAPHER Work Phone: [facility] 02-11-2022 13:14-0400 SaO2% (BldA) [Mass fraction] 94 % Lisa Irizarry APRN.MAMMOGRAPHER Work Phone: [facility] 02-11-2022 13:14-0400 Systolic blood pressure 130 mm[Hg] Lisa Irizarry APRN.MAMMOGRAPHER Work Phone: [facility] 02-08-2022 13:08-0400 Body temperature 98 [degF] Dr. Julio Licea Work Phone: [facility] Work Phone: 02-08-2022 13:08-0400 Diastolic blood pressure 74 mm[Hg] Dr. Julio Licea Work Phone: [facility] Work Phone: 02-08-2022 13:08-0400 Heart rate 68 /min Dr. Julio Licea Work Phone: [facility] Work Phone: 02-08-2022 13:08-0400 Respiratory rate 16 /min Dr. Julio Licea Work Phone: [facility] Work Phone: 02-08-2022 13:08-0400 SaO2% (BldA) [Mass fraction] 93 % Dr. Julio Licea Work Phone: [facility] Work Phone: 02-08-2022 13:08-0400 Systolic blood pressure 153 mm[Hg] Dr. Julio Licea Work Phone: [facility] Work Phone: 02-08-2022 08:57-0400 Body height 170.[address] Julio Licea Work Phone: [facility] Work Phone: 02-08-2022 08:57-0400 Body mass index (BMI) [Ratio] 25.9 kg/m2 Dr. Julio Licea Work Phone: [facility] Work Phone: 02-08-2022 08:57-0400 Body weight [address] Julio Licea Work Phone: [facility] Work Phone: 01-23-2022 12:10-0400 Body temperature 98.4 [degF] Dr. Julio Licea Work Phone: [facility] Work Phone: 01-23-2022 12:10-0400 Diastolic blood pressure 73 mm[Hg] Dr. Julio Licea Work Phone: [facility] Work Phone: 01-23-2022 12:10-0400 Heart rate 65 /min Dr. Julio Licea Work Phone: [facility] Work Phone: 01-23-2022 12:10-0400 Respiratory rate 18 /min Dr. Julio Licea Work Phone: [facility] Work Phone: 01-23-2022 12:10-0400 SaO2% (BldA) [Mass fraction] 94 % Dr. Julio Licea Work Phone: [facility] Work Phone: 01-23-2022 12:10-0400 Systolic blood pressure 127 mm[Hg] Dr. Julio Licea Work Phone: [facility] Work Phone: 01-23-2022 09:43-0400 Body height 170.[address] Julio Licea Work Phone: [facility] Work Phone: 01-23-2022 09:43-0400 Body mass index (BMI) [Ratio] 25.9 kg/m2 Dr. Julio Licea Work Phone: [facility] Work Phone: 01-23-2022 09:43-0400 Body weight 75.[address] Julio Licea Work Phone: [facility] Work Phone: 01-19-2022 13:02-0400 Body mass index (BMI) [Ratio] 25.8 kg/m2 Dr. Julio Licea Work Phone: [facility] Work Phone: 01-19-2022 13:02-0400 Body weight 75.[address] Julio Licea Work Phone: [facility] Work Phone: 01-19-2022 13:02-0400 Diastolic blood pressure 53 mm[Hg] Dr. Julio Licea Work Phone: [facility] Work Phone: 01-19-2022 13:02-0400 Heart rate 46 /min Dr. Julio Licea Work Phone: [facility] Work Phone: 01-19-2022 13:02-0400 Respiratory rate 18 /min Dr. Julio Licea Work Phone: [facility] Work Phone: 01-19-2022 13:02-0400 SaO2% (BldA) [Mass fraction] 93 % Dr. Julio Licea Work Phone: [facility] Work Phone: 01-19-2022 13:02-0400 Systolic blood pressure 100 mm[Hg] Dr. Julio Licea Work Phone: [facility] Work Phone: 01-19-2022 13:02-0400 Body mass index (BMI) [Ratio] 25.8 kg/m2 Dr. Julio Licea Work Phone: [facility] Work Phone: 01-19-2022 13:02-0400 Body weight 75.[address] Julio Licea Work Phone: [facility] Work Phone: 01-19-2022 13:02-0400 Diastolic blood pressure 53 mm[Hg] Dr. Julio Licea Work Phone: [facility] Work Phone: 01-19-2022 13:02-0400 Heart rate 46 /min Dr. Julio Licea Work Phone: [facility] Work Phone: 01-19-2022 13:02-0400 Respiratory rate 18 /min Dr. Julio Licea Work Phone: [facility] Work Phone: 01-19-2022 13:02-0400 SaO2% (BldA) [Mass fraction] 93 % Dr. Julio Licea Work Phone: [facility] Work Phone: 01-19-2022 13:02-0400 Systolic blood pressure 100 mm[Hg] Dr. Julio Licea Work Phone: [facility] Work Phone: 12-15-2021 11:26-0400 Body weight 78.02 kg Julio Licea MD Work Phone: [facility] 12-15-2021 11:26-0400 Diastolic blood pressure 52 mm[Hg] Julio Licea MD Work Phone: [facility] 12-15-2021 11:26-0400 Heart rate 48 /min Julio Licea MD Work Phone: [facility] 12-15-2021 11:26-0400 Respiratory rate 18 /min Julio Licea MD Work Phone: [facility] 12-15-2021 11:26-0400 Systolic blood pressure 120 mm[Hg] Julio Licea MD Work Phone: [facility] 12-07-2021 16:34-0400 Heart rate 60 /min DR CRISTIANO PLATT MD [facility] 12-07-2021 16:22-0400 Body temperature 97.7 [degF] DR CRISTIANO PLATT MD [facility] 12-07-2021 16:22-0400 Heart rate 57 /min DR CRISTIANO PLATT MD [facility] 12-07-2021 16:22-0400 Reason For Taking VItal Signs DR CRISTIANO PLATT MD [facility] 12-07-2021 16:22-0400 Respiratory rate 18 /min DR CRISTIANO PLATT MD [facility] 12-07-2021 12:50-0400 Diastolic blood pressure 69 mm[Hg] DR CRISTIANO PLATT MD [facility] 12-07-2021 12:50-0400 Heart rate 65 /min DR CRISTIANO PLATT MD [facility] 12-07-2021 12:50-0400 Mean blood pressure 91 mm[Hg] DR CRISTIANO PLATT MD [facility] 12-07-2021 12:50-0400 Respiratory rate 18 /min DR CRISTIANO PLATT MD [facility] 12-07-2021 12:50-0400 Systolic blood pressure 134 mm[Hg] DR CRISTIANO PLATT MD [facility] 12-07-2021 12:45-0400 Diastolic blood pressure 66 mm[Hg] DR CRISTIANO PLATT MD [facility] 12-07-2021 12:45-0400 Heart rate 62 /min DR CRISTIANO PLATT MD [address] [place] [address] 12-07-2021 12:45-0400 Respiratory rate 20 /min DR CRISTIANO PLATT MD [address] 12-07-2021 12:45-0400 Systolic blood pressure 133 mm[Hg] DR CRISTIANO PLATT MD [address] [place] [address] 12-07-2021 12:30-0400 Diastolic blood pressure 65 mm[Hg] DR CRISTIANO PLATT MD [facility] 12-07-2021 12:30-0400 Mean blood pressure 88 mm[Hg] DR CRISTIANO PLATT MD [address] [place] [address] 12-07-2021 12:30-0400 Systolic blood pressure 134 mm[Hg] DR CRISTIANO PLATT MD [facility] 12-07-2021 12:15-0400 Mean blood pressure 86 mm[Hg] DR CRISTIANO PLATT MD [facility] 12-07-2021 10:32-0400 Body temperature 98.24 [degF] DR CRISTIANO PLATT MD [address] [place] [address] 12-07-2021 10:32-0400 Reason For Taking VItal Signs DR CRISTIANO PLATT MD [facility] 12-07-2021 08:06-0400 Heart rate 68 /min DR CRISTIANO PLATT MD [facility] 12-07-2021 08:02-0400 Reason For Taking VItal Signs DR CRISTIANO PLATT MD [facility] 12-07-2021 07:14-0400 Body temperature 98.06 [degF] DR CRISTIANO PLATT MD [facility] 12-07-2021 05:01-0400 Diastolic Blood Pressure NBP [address] CRISTIANO PLATT MD [facility] 12-07-2021 05:01-0400 Mean blood pressure 70 mm[Hg] DR CRISTIANO PLATT MD [facility] 12-07-2021 05:01-0400 Systolic Blood Pressure NBP [address] CRISTIANO PLATT MD [facility] 12-06-2021 23:51-0400 Diastolic Blood Pressure NBP [address] CRISTIANO PLATT MD [facility] 12-06-2021 23:51-0400 Mean blood pressure 66 mm[Hg] DR CRISTIANO PLATT MD [facility] 12-06-2021 23:51-0400 Systolic Blood Pressure NBP [address] CRISTIANO PLATT MD [facility] 12-06-2021 16:33-0400 Heart rate 64 /min DR CRISTIANO PLATT MD [facility] 12-06-2021 11:54-0400 Body weight 77.[address] CRISTIANO PLATT MD [facility] 12-06-2021 11:39-0400 Diastolic Blood Pressure NBP [address] CRISTIANO PLATT MD [address] [place] [address] 12-06-2021 11:39-0400 Systolic Blood Pressure NBP [address] CRISTIANO PLATT MD [address] [place] [address] 12-06-2021 08:40-0400 Body weight 78.[address] CRISTIANO PLATT MD [facility] 12-06-2021 01:30-0400 Mean blood pressure 82 mm[Hg] DR CRISTIANO PLATT MD [facility] 12-04-2021 12:50-0400 Body weight 80.[address] CRISTIANO PLATT MD [facility] 11-30-2021 19:06-0400 Body height 170.[address] CRISTIANO PLATT MD [facility] 11-30-2021 19:06-0400 Body weight 29.34 kg/m2 DR CRISTIANO PLATT MD [facility] 11-17-2021 10:53-0400 Body weight 84.82 kg Julio Licea MD Work Phone: [facility] 11-17-2021 10:53-0400 Diastolic blood pressure 78 mm[Hg] Julio Licea MD Work Phone: [facility] 11-17-2021 10:53-0400 Heart rate 56 /min Julio Licea MD Work Phone: [facility] 11-17-2021 10:53-0400 Respiratory rate 16 /min Julio Licea MD Work Phone: [facility] 11-17-2021 10:53-0400 SaO2% (BldA) [Mass fraction] 94 % Julio Licea MD Work Phone: [facility] 11-17-2021 10:53-0400 Systolic blood pressure 148 mm[Hg] Julio Licea MD Work Phone: [facility] Encounters Encounter Date Encounter Type Care Provider Facility Start: 03-16-2025 End: 03-16-[address] [facility] Work Phone: [facility] Comment on above: Spirometry Start: 03-16-2025 End: 03-16-2025 Patient encounter procedure 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, Z99.2] Start: 03-10-2025 End: 03-10-2025 ambulatory MICHAEL STEIN MD Facility[place] [place] Start: 03-10-2025 End: 03-10-2025 Patient encounter procedure MICHAEL STEIN MD [facility] Start: 03-02-2025 ambulatory Martha Ford ty:[facility] Start: 03-01-2025 End: 03-03-2025 Evaluation and management of inpatient DR ARTHUR ASHRAF MD [facility] Start: 03-01-2025 End: 03-01-2025 Emergency department patient visit THOMAS SON DO [facility] Start: 02-18-2025 End: 02-19-2025 Follow-up encounter Deanne Shen APRN.MAMMOGRAPHER Work Phone: [facility] [place] Start: 02-18-2025 ambulatory JULIO Ford ty:[facility] Start: 02-18-2025 End: 02-18-2025 Subsequent hospital visit by physician Xr [facility] Work Phone: Radiology Comment on above: Bacterial pneumonia [J15.9] Start: 02-11-2025 ambulatory JULIO GONSALEZ MD Facility:[facility] [place] Start: 02-09-2025 End: 02-09-2025 Patient encounter procedure Deanne Shen APRN.MAMMOGRAPHER Work Phone: [facility] [place] Comment on above: Bacterial pneumonia (Primary Dx); Cough productive of clear sputum Start: 02-09-2025 End: 02-09-2025 ambulatory JULIO LICEA Facility:[facility] Start: 02-09-2025 End: 02-09-2025 Patient encounter procedure Martha FLAHERTY -[facility] Work Phone: Start: 02-09-2025 End: 02-09-[address] Julio Licea MD Work Phone: -[facility] Start: 02-08-2025 End: 02-08-2025 Telephone encounter Deanne Shen APRN.MAMMOGRAPHER Work Phone: [facility] [place] Comment on above: Patient Update; Appo intment Start: 02-02-2025 End: 02-02-2025 Follow-up encounter Deanne Shen APRN.MAMMOGRAPHER Work Phone: [facility] [place] Start: 02-02-2025 End: 02-02-2025 Subsequent hospital visit by physician Xr [facility] [place] Work Phone: Radiology Comment on above: SOB (shortness of br eath) [R06.02] Start: 02-02-2025 End: 02-02-2025 Patient encounter procedure Deanne Kj FIGUEROA.MAMMOGRAPHER Work Phone: [facility] [place] Comment on above: SOB (shortness of br eath) (Primary Dx); Wheezing; Nausea; Gastritis without bleeding, unspecified chronicity, unspecified gastritis type Start: 02-02-2025 End: 02-02-2025 ambulatory JULIO LICEA Facility:[facility] Start: 01-29-2025 End: 01-29-2025 Chart abstracting Francis Irizarry MA [facility] Comment on above: Procedure (Outside C ardiac ) Start: 01-26-2025 End: 01-26-2025 ambulatory JULIO LICEA MD Facility[place] [place] Start: 01-26-2025 End: 01-26-2025 Patient encounter procedure MITCH VEGA APRN-MAMMOGRAPHER [facility] Start: 01-21-2025 End: 01-21-2025 ambulatory JULIO LICEA MD Facility:[facility] Start: 01-21-2025 End: 01-21-2025 Patient encounter procedure MITCH VEGA APRN-MAMMOGRAPHER [facility] Start: 12-29-2024 End: 12-30-2024 Evaluation and management of inpatient DR JANN STEIN MD [facility] Start: 12-22-2024 End: 12-22-2024 ambulatory JULIO LICEA MD Facility:[facility] [place] Start: 12-22-2024 End: 12-22-2024 Patient encounter procedure MITCH VEGA GLACIOLOGIST-MAMMOGRAPHER [facility] Start: 12-17-2024 End: 12-17-2024 Chart abstracting Julio Licea MD Work Phone: [facility] [place] Comment on above: Outside Pulmonary Start: 12-17-2024 End: 12-17-2024 Patient encounter procedure Rose Callahan INTERACTIVE MEDIA MARKETING STRATEGIST- -[facility] Work Phone: Start: 12-17-2024 End: 12-17-2024 ambulatory Rose Callahan INTERACTIVE MEDIA MARKETING STRATEGIST Facility:[facility] Start: 12-11-2024 End: 12-11-2024 Chart abstracting Julio Licea MD Work Phone: [facility] [place] Comment on above: Outside Cardiology Start: 11-26-2024 End: 11-26-2024 ambulatory MITCH VEGA GLACIOLOGIST-MAMMOGRAPHER Facility:[facility] Start: 11-26-2024 End: 11-26-2024 Patient encounter procedure MITCH VEGA GLACIOLOGIST-MAMMOGRAPHER [facility] Start: 11-20-2024 End: 11-20-2024 Chart abstracting Julio Licea MD Work Phone: [facility] [place] Comment on above: Outside [id number] Ordered Start: 11-17-2024 End: 11-18-[address] JANN STEIN MD Facility:[facility] Start: 11-17-2024 End: 11-18-[address] JANN STEIN MD [facility] Start: 11-05-2024 End: 11-05-[address] JANN STEIN MD Facility:[facility] Start: 11-05-2024 End: 11-05-[address] JANN STEIN MD [facility] Start: 11-03-2024 End: 11-03-2024 ambulatory JULIO LICEA MD Facility:[facility] [place] Start: 10-20-2024 End: 10-20-2024 Refill Elana Candelario PA-C Work Phone: [facility] [place] Comment on above: Refill Request Start: 10-19-2024 End: 10-19-2024 Chart abstracting Francis Irizarry MA [facility] [place] [address] Comment on above: Consult (Outside Vas cular /) Start: 10-08-2024 End: 10-08-2024 ambulatory Julio Licea [place] Start: 10-02-2024 End: 10-02-2024 Chart abstracting Julio Licea MD Work Phone: [facility] [place] Comment on above: Outside Pulmonary Start: 10-01-2024 End: 10-01-2024 ambulatory Rose Callahan NP [place] Start: 09-29-2024 End: 09-29-2024 Chart abstracting Julio Licea MD Work Phone: [facility] [place] Comment on above: Outside Urology Start: 09-29-2024 End: 09-29-2024 ambulatory HAY TAVAREZ MD Facility:[facility] Start: 09-29-2024 End: 09-29-2024 Patient encounter procedure HAY TAVAREZ MD [facility] Start: 09-24-2024 End: 09-24-[address] CLAIRE ANDINO MD Facility:[facility] [place] Start: 09-24-2024 End: 09-24-[address] CLAIRE ANDINO MD [facility] Start: 09-22-2024 End: 09-22-2024 Subsequent hospital visit by physician Shaun [facility] [place] Work Phone: Radiology Comment on above: Abnormal lung sounds [R09.89] Start: 09-22-2024 End: 09-22-2024 Follow-up encounter Deanneayaka Shen APRN.CNP Work Phone: [facility] [place] Start: 09-22-2024 End: 09-22-2024 ambulatory JULIO LICEA Facility:[facility] Start: 09-22-2024 End: 09-22-2024 Patient encounter procedure Deanne Shen APRN.CNP Work Phone: Family Medicine [place] Comment on above: Elevated PSA (Primar y Dx); Chronic diastolic congestive heart failure (HCC); Hyperparathyroidism (HCC); Encounter for screening examination for other mental health and behavioral disorders; Screening for depression; Abnormal lung sounds; SOB (shortness of breath); Wheezing; Cough productive of clear sputum; ESRD (end stage renal disease) on dialysis (HCC); Gastroesophageal reflux disease with esophagitis without hemorrhage; Benign essential tremor; Anemia of chronic disease; Mixed hyperlipidemia; Medicare annual wellness visit, subsequent; Essential hypertension, benign; Coronary artery disease involving white mountain coronary artery of white mountain heart without angina pectoris; Screening for diabetes mellitus Start: 09-17-2024 End: 09-17-2024 Patient encounter procedure Deanne Shen APRN.CNP Work Phone: [facility] [place] Comment on above: Cough productive of clear sputum (Primary Dx); SOB (shortness of breath); Wheezing; Wellness examination; Screening for prostate cancer; Screening for diabetes mellitus; Encounter for lipid screening for cardiovascular disease; Medication management; ESRD (end stage renal disease) on dialysis (HCC) Start: 09-17-2024 End: 09-17-2024 Patient encounter status Deanne Shen APRN.CNP Work Phone: [facility] Start: 09-17-2024 End: 09-17-2024 ambulatory JULIO LICEA Facility:[facility] Start: 09-17-2024 Encounter for genera l adult medical examination without abnormal findings DEANNE SHEN [facility] Start: 09-14-2024 End: 09-14-2024 Chart abstracting Francis Irizarry MA Family Medicine [place] Comment on above: Hospital F/U ([facility] ) Start: 09-10-2024 End: 09-10-2024 Chart abstracting Julio Licea MD Work Phone: [facility] [place] Comment on above: ER Discharge Summary (H&P) Start: 09-09-2024 End: 09-11-2024 ambulatory Chriss Marquez Facility:[facility] Start: 08-24-2024 End: 08-24-2024 Telephone encounter Francis Irizarry MA [facility] [place] Comment on above: Patient Update Start: 08-11-2024 End: 08-13-2024 Refill Elana Candelario PA-C Work Phone: [facility] [place] Comment on above: Refill Request Start: 07-28-2024 End: 07-28-2024 Chart abstracting Francis Irizarry MA [facility] [place] [facility] Comment on above: Results (Outside lab ) Start: 07-27-2024 End: 07-27-2024 Chart abstracting Julio Licea MD Work Phone: [facility] [place] Comment on above: Outside Rvsi-Nev-IZS Ordered Start: 07-24-2024 End: 07-24-2024 ambulatory Julio Golisano [facility] Facility:[facility] Start: 07-23-2024 End: 07-23-2024 Chart abstracting Julio Licea MD Work Phone: [facility] [place] Comment on above: ER Discharge Summary Start: 07-22-2024 End: 07-22-2024 Emergency department patient visit Julio Anuja Facility:[facility] Start: 07-13-2024 End: 07-15-2024 Telephone encounter Deanne Shen APRN.MAMMOGRAPHER Work Phone: [facility] [place] Comment on above: Cough Start: 07-06-2024 End: 07-06-2024 Telephone encounter Deanne Shen APRN.MAMMOGRAPHER Work Phone: [facility] [place] Comment on above: Results Medication Problem ( Augmentin) Start: 07-06-2024 End: 07-06-2024 Subsequent hospital visit by physician Shaun [facility] [place] Work Phone: Radiology Comment on above: Wheezing [R06.2] Start: 07-06-2024 End: 07-06-2024 Patient encounter procedure Deanne Shen APRN.MAMMOGRAPHER Work Phone: [facility] [place] Comment on above: Wheezing (Primary Dx ); Cough productive of clear sputum; SOB (shortness of breath) Start: 07-06-2024 End: 07-06-2024 ambulatory JULIO LICEA Facility:[facility] Start: 07-02-2024 End: 07-02-2024 Chart abstracting Julio Licea MD Work Phone: [facility] [place] Start: 07-02-2024 End: 07-02-2024 ambulatory HAY TAVAREZ MD Facility:[facility] Start: 07-02-2024 End: 07-02-2024 Patient encounter procedure HAY TAVAREZ MD [facility] Start: 06-26-2024 End: 06-29-2024 Telephone encounter José Antonio Burnette Work Phone: General Surgery Comment on above: Patient Update Start: 06-19-2024 End: 06-30-2024 Telephone encounter Zaira Burnette APRN.MAMMOGRAPHER Work Phone: General Surgery Comment on above: Patient Update Start: 06-18-2024 End: 06-18-2024 ambulatory JULIO LICEA Facility:[facility] Start: 06-18-2024 End: 06-18-2024 Patient encounter procedure Zaira Burnette APRN.MAMMOGRAPHER Work Phone: General Surgery Comment on above: Gastroesophageal ref lux disease, unspecified whether esophagitis present (Primary Dx) Start: 06-11-2024 End: 06-11-2024 ambulatory JAYLENE CALLEJAS Facility:[facility] Start: 06-11-2024 End: 06-11-2024 Subsequent hospital visit by physician Jaylene Callejas MD Work Phone: Ambulatory Surgery Comment on above: Hiatal hernia [K44.9 ] Start: 05-25-2024 End: 05-25-2024 ambulatory JAYLENE CALLEJAS Facility:[facility] Start: 05-25-2024 End: 05-25-2024 Patient encounter procedure Jaylene Callejas MD Work Phone: General Surgery Comment on above: Gastroesophageal ref lux disease, unspecified whether esophagitis present (Primary Dx); Hiatal hernia Start: 05-25-2024 End: 06-16-2024 Telephone encounter Jaylene Callejas MD Work Phone: General Surgery Comment on above: Patient Update Start: 05-18-2024 End: 05-18-2024 Transitional care manage srvc 7 day discharge Deanne Shen APRN.MAMMOGRAPHER Work Phone: Family Medicine [place] Comment on above: ESRD (end stage kiran l disease) on dialysis (HCC) (Primary Dx); Gastroesophageal reflux disease with esophagitis without hemorrhage; Hiatal hernia; Coronary artery disease involving white mountain coronary artery of white mountain heart without angina pectoris; ASHD (arteriosclerotic heart disease); H/O heart artery stent; Kidney stone Start: 05-18-2024 End: 05-18-2024 ambulatory JULIO LICEA Facility:[facility] Start: 05-14-2024 End: 05-15-2024 ambulatory Julio Licea MD Work Phone: [facility] [place] Start: 05-14-2024 End: 05-15-2024 Telephone encounter Julio Licea MD Work Phone: Family [facility] [place] Comment on above: Future Appointment Transition Of Care Start: 05-11-2024 End: 05-11-2024 AMB External Visit MIKE DANIELSON MD [facility] Start: 05-08-2024 End: 05-12-2024 Evaluation and management of inpatient DAVIDE STARKS MD [facility] Start: 05-08-2024 End: 05-08-2024 Emergency department patient visit ROBERTA TIRADO MD [facility] Start: 04-30-2024 End: 04-30-2024 Telephone encounter Deanne Shen APRN.MAMMOGRAPHER Work Phone: Family [facility] [place] Comment on above: Results Start: 04-30-2024 End: 04-30-2024 ambulatory [facility] Facility:[facility] Start: 04-30-2024 End: 04-30-2024 Subsequent hospital visit by physician [facility] Work Phone: Radiology Comment on above: Renal cyst [N28.1] Start: 04-24-2024 End: 04-24-2024 Telephone encounter Deanne Shen APRN.CNP Work Phone: [facility] [place] Comment on above: Results Start: 04-21-2024 End: 04-21-2024 ambulatory [facility] Facility:[facility] Start: 04-21-2024 End: 04-21-2024 Subsequent hospital visit by physician [facility] Work Phone: Cat Scan Comment on above: Diarrhea, unspecifie d type [R19.7] Start: 04-14-2024 End: 04-14-2024 Telephone encounter Deanne Shen APRN.CNP Work Phone: [facility] [place] Comment on above: Results Start: 04-10-2024 End: 04-10-2024 Patient encounter procedure Deanne Shen APRN.CNP Work Phone: [facility] [place] Comment on above: Diarrhea, unspecifie d type (Primary Dx); Nausea; Flatulence/gas pain/belching Start: 04-10-2024 End: 04-10-2024 ambulatory [facility] Facility:[facility] Start: 02-26-2024 Refill Elana Choudhary on PA-C Work Phone: [facility] [place] Comment on above: Refill Request Start: 02-24-2024 End: 02-25-2024 Evaluation and management of inpatient DR CASEY TEMPLETON MD [facility] Start: 02-11-2024 Telephone encounter Yaya Brink Work Phone: Endocrine Surgery Comment on above: Patient Update Start: 02-10-2024 End: 02-10-2024 Patient encounter procedure Yaya Sun MD Work Phone: Endocrine Surgery Comment on above: Hyperparathyroidism (HCC) (Primary Dx) Start: 01-15-2024 Refill Julio gonsalez MD Work Phone: Family [facility] [place] Comment on above: Refill Request Start: 12-20-2023 Chart abstracting Julio quinones MD Work Phone: [facility] [place] Comment on above: Ext / Cardiology Start: 11-29-2023 End: 11-29-2023 Patient encounter procedure Julio Licea MD Work Phone: [facility] [place] Comment on above: Coronary artery dise ase involving white mountain coronary artery of white mountain heart without angina pectoris (Primary Dx); Bacterial pneumonia; Essential hypertension, benign; ESRD (end stage renal disease) on dialysis (HCC) Start: 11-19-2023 Telephone encounter Francis Irizarry MA [facility] [place] Comment on above: Patient Update Refill Request Start: 11-15-2023 End: 11-19-2023 Evaluation and management of inpatient MIKE DANIELSON MD [facility] Start: 11-15-2023 End: 11-15-2023 Emergency department patient visit CLIVE VALENCIA [facility] Start: 10-17-2023 Refill Elana Choudhary on PA-C Work Phone: [facility] [place] Comment on above: Refill Request Start: 10-10-2023 Telephone encounter Julio Licea MD Work Phone: Family [facility] [place] Comment on above: Results Start: 10-10-2023 End: 10-10-2023 Subsequent hospital visit by physician Injection [facility] Work Phone: Nuclear Medicine Comment on above: Elevated alkaline ph osphatase level [R74.8] Start: 10-01-2023 End: 10-01-[address] CLAIRE ANDINO MD Facility:[facility] Start: 10-01-2023 End: 10-01-[address] CLAIRE ANDINO MD [facility] Start: 09-27-2023 Telephone encounter Julio Licea MD Work Phone: [facility] [place] Comment on above: Results Start: 09-24-2023 Telephone encounter Julio Licea MD Work Phone: [facility] [place] Comment on above: Results Start: 09-21-2023 Patient encounter procedure David Licea MD Work Phone: [facility] Work Phone: Start: 07-22-2023 Telephone encounter Yaya Brink Work Phone: Endocrine Surgery Start: 07-11-2023 End: 07-12-2023 Orders Only Rj Herrera MD Work Phone: [facility] Comment on above: Hyperparathyroid (HC C) (Primary Dx) Start: 07-09-2023 End: 07-09-2023 Patient encounter procedure Fermin Chauhan MD Work Phone: Otolaryngology Comment on above: Pre-op evaluation (P rimary Dx) Start: 07-09-2023 End: 07-09-2023 Preprocedural examination done Fermin Chauhan MD Work Phone: [facility] Work Phone: Start: 06-25-2023 End: 06-26-2023 ambulatory YAYA SUN Facility:[facility] Start: 06-25-2023 End: 06-25-2023 ambulatory JULIO LICEA Facility:[facility] Start: 06-25-2023 End: 06-25-2023 [place]mission to [place] [id number] Work Phone: [facility] Start: 06-25-2023 End: 06-25-2023 ambulatory [place] [id number] Work Phone: Pre Anesthesia Comment on above: Chronic diastolic co ngestive heart failure (HCC); Essential hypertension, benign; Mixed hyperlipidemia; Coronary artery disease involving white mountain coronary artery of white mountain heart without angina pectoris; Mild aortic stenosis; GERD without esophagitis; BPH with obstruction/lower urinary tract symptoms; CKD (chronic kidney disease) stage 4, GFR 15-29 ml/min (HCC); Anemia of chronic disease Start: 05-30-2023 Telephone encounter Yaya Brink Work Phone: Endocrine Surgery Start: 05-21-2023 ambulatory Yaya Sun MD Work Phone: Endocrine Surgery Comment on above: preop pacc / OR MM 1 09/10/22 (Re - op parathyroidectomy/) Start: 05-21-2023 Telephone encounter Yaya Brink Work Phone: Endocrine Surgery Start: 05-21-2023 End: 05-21-2023 Patient encounter procedure Yaya Sun MD Work Phone: Endocrine Surgery Comment on above: Secondary renal hype rparathyroidism (HCC) (Primary Dx) Start: 05-20-2023 Telephone encounter Jana Dan MD Work Phone: [facility] Comment on above: antibiotic rx was se nt to wrong pharmacy Start: 05-18-2023 Telephone encounter Jana Dan MD Work Phone: [facility] Comment on above: Results (Urine Cx) Start: 05-17-2023 End: 05-17-2023 Patient encounter procedure Sarah Corrigan PA-C Work Phone: [facility] Comment on above: Burning with urinati on (Primary Dx) Start: 04-30-2023 Refill Elana Choudhary on PA-C Work Phone: [facility] [place] Comment on above: Refill Request Start: 12-19-2022 Refill Deanne pham APRN.CNP Work Phone: [facility] [place] Comment on above: Refill Request Start: 11-13-2022 End: 11-13-[address] CLAIRE ANDINO MD [facility] Start: 09-07-2022 Telephone encounter Julio Licea MD Work Phone: [facility] [place] Comment on above: Results Start: 09-06-2022 End: 09-06-2022 Patient encounter procedure Julio Licea MD Work Phone: Family Medicine [place] Comment on above: Medicare annual well ness visit, subsequent (Primary Dx); Essential hypertension, benign; Mixed hyperlipidemia; GERD without esophagitis; Anemia of chronic disease; ASHD (arteriosclerotic heart disease); Chronic diastolic congestive heart failure (HCC); Mild aortic stenosis; Primary hyperparathyroidism (HCC); CKD (chronic kidney disease) stage 4, GFR 15-29 ml/min (HCC); BPH with obstruction/lower urinary tract symptoms; Advance directive discussed with patient; Medication management Start: 05-14-2022 Refill Julio gonsalez MD Work Phone: [facility] [place] Comment on above: urgent refill Start: 05-08-2022 Refill Julio gonsalez MD Work Phone: Family [facility] [place] Comment on above: Refill Request Start: 04-24-2022 Refill Julio gonsalez MD Work Phone: Family [facility] [place] Comment on above: Refill Request Start: 03-02-2022 Telephone encounter Julio Licea MD Work Phone: Family Medicine [place] Comment on above: Patient Update Start: 02-25-2022 Telephone encounter Julio Licea MD Work Phone: [facility] [place] Comment on above: Results Start: 02-22-2022 End: 02-22-2022 Patient encounter procedure Julio Licea MD Work Phone: Family Medicine [place] Comment on above: Essential hypertensi on, benign (Primary Dx); Mixed hyperlipidemia; Anemia of chronic disease; GERD without esophagitis; ASHD (arteriosclerotic heart disease); Chronic diastolic congestive heart failure (HCC); Mild aortic stenosis; CKD (chronic kidney disease) stage 4, GFR 15-29 ml/min (HCC); Primary hyperparathyroidism (HCC); Benign essential tremor; Medication management Start: 02-11-2022 End: 02-11-2022 Emergency department patient visit Dr. Julio Licea Work Phone: [facility]Emer[facility] Start: 02-11-2022 End: 02-11-2022 Patient encounter procedure Lisa Irizarry APRN.CNP Work Phone: [facility] Comment on above: Neck mass (Primary D x) Start: 02-08-2022 Non-patient / Non-visit Dr. David Licea Work Phone: [facility] Start: 02-08-2022 End: 02-08-2022 Admission to same day surgery center Dr[facility] Jul[facility] Start: 01-25-2022 ambulatory No Pcp Paulina hawley [place] Start: 01-23-2022 ambulatory Julio gonsalez MD Work Phone: [facility] [place] Start: 01-23-2022 Non-patient / Non-visit Dr. David Licea Work Phone: [facility] Start: 01-23-2022 End: 01-23-2022 Admission to same day surgery center Dr. Julio Licea Work Phone: [facility]-Endoscopy Start: 01-19-2022 End: 01-19-[address] Julio Licea Work Phone: [facility] Start: 01-17-2022 Non-patient / Non-visit Dr. David Licea Work Phone: [facility] Start: 01-17-2022 End: 01-17-[address] Julio Licea Work Phone: [facility]Cardiovascular Services Start: 12-15-2021 End: 12-15-2021 Patient encounter procedure Julio Licea MD Work Phone: [facility] [place] Comment on above: Chronic diastolic co ngestive heart failure (HCC) (Primary Dx); CKD (chronic kidney disease) stage 4, GFR 15-29 ml/min (HCC); URI, acute; Living will on file; Advance directive discussed with patient Start: 12-08-2021 Telephone encounter Julio Licea MD Work Phone: [facility] [place] Comment on above: Transition Of Care Start: 11-30-2021 End: 12-07-2021 Evaluation and management of inpatient DR CRISTIANO PLATT MD [facility] Start: 11-30-2021 Telephone encounter Frank Encinas MD Work Phone: Hematology/Oncology Comment on above: New Patient Start: 11-27-2021 Telephone encounter Julio Licea MD Work Phone: [facility] [place] Comment on above: results of stress te st Start: 11-22-2021 Non-patient / Non-visit Dr. David Licea Work Phone: [facility] Start: 11-22-2021 End: 11-22-[address] Julio Licea Work Phone: [facility] Start: 11-17-2021 End: 11-17-2021 Patient encounter procedure Julio Licea MD Work Phone: [facility] [place] Comment on above: Dyspepsia (Primary D x); GERD without esophagitis; Cough; SOB (shortness of breath); Bursitis of left shoulder Start: 11-02-2021 ambulatory Abran wilson MD Work Phone: Endocrinology Comment on above: labs Start: 11-02-2021 E-mail encounter chuck m caregiver Abran Jack MD Work Phone: [facility] Start: 11-01-2021 Telephone encounter Julio Licea MD Work Phone: [facility] [place] Comment on above: Results Start: 06-17-2021 End: 06-17-2021 Subsequent hospital visit by physician Xr [facility] [place] Work Phone: Radiology Comment on above: Cough [R05.9] Start: 12-26-2020 Patient encounter procedure David Licea MD Work Phone: [facility] Work Phone: Start: 07-08-2018 Patient encounter procedure ARTHUR BOURGEOIS [facility] Start: 07-08-2018 End: 07-08-2018 Patient encounter procedure Arthur Avendaño Work Phone: Ultrasound [place] Comment on above: Arrived Start: 07-08-2018 Patient encounter procedure ARTHUR Maciel [facility] Start: 07-08-2018 Patient encounter procedure ARTHUR Maciel [facility] Procedures Date Procedure Procedure Detail Performing Clinician Start: 03-16-2025 Nitric oxide gas determination Bernice Samayoa MD Work Phone: Start: 03-16-2025 Brncdilat rspse spmtry pre&post-brncdilat admn Bernice Aranda MD Work Phone: Start: 02-18-2025 Radiologic exam chest 2 views Deanne keyes GLACIOLOGIST.MAMMOGRAPHER Work Phone: Start: 02-02-2025 Radiologic exam chest 2 views Deanne keyes GLACIOLOGIST.MAMMOGRAPHER Work Phone: Start: 12-29-2024 Percutaneous coronary intervention THOMAS SON DO Start: 12-29-2024 Transcatheter aortic valve implantation MICHAEL STEIN MD Start: 11-17-2024 Percutaneous coronary intervention NICK STEIN MD Start: 11-05-2024 Stent, device (physical object) THOMAS GRACIA DO Start: 09-22-2024 Radiologic exam chest 2 views Deanne keyes GLACIOLOGIST.MAMMOGRAPHER Work Phone: Start: 09-22-2024 Adult depression screening assessment Deanne Shen GLACIOLOGIST.MAMMOGRAPHER Work Phone: Start: 07-06-2024 Radiologic exam chest 2 views Deanne keyes GLACIOLOGIST.MAMMOGRAPHER Work Phone: Start: 06-11-2024 Esophagogastroduodenoscopy transoral diagnostic Jaylene Callejas MD Work Phone: Start: 04-30-2024 Us retroperitoneal real time w/image complete Deanne Shen GLACIOLOGIST.MAMMOGRAPHER Work Phone: Start: 02-10-2024 Us soft tissue head & neck real time imge docm Yaya Sun MD Work Phone: Start: 11-18-[address] CASEY BESS MD Start: 10-10-2023 Bone &/joint imaging whole body Julio Licea MD Work Phone: Start: 07-11-2023 Us soft tissue head & neck real time imge docm Rj Herrera MD Work Phone: Start: 05-17-2023 Culture bacterial quanttative colony count urine Sarah Corrigan PA-C Work Phone: Start: 05-17-2023 Urnls dip stick/tablet rgnt auto w/o microscopy Julio Parker GLACIOLOGIST.MAMMOGRAPHER Work Phone: Start: 02-22-2022 Adult depression screening assessment Julio Licea MD Work Phone: Start: 02-11-2022 Computed tomography of soft tissues of neck without contrast Dr. Julio Licea Work Phone: Start: 02-08-2022 Creation of lower limb arteriovenous fistula Dr. Julio Licea Work Phone: Start: 01-23-[address] Julio mercedes Work Phone: Start: 06-17-2021 Radiologic exam chest 2 views Jana Dan MD Work Phone: Start: 12-26-2020 Adult depression screening assessment Julio Licea MD Work Phone: Start: 07-08-2018 End: 07-08-2018 US scan of neck Arthur Avendaño Work Phone: Start: 09-06-2014 Catheterization of both left and right heart DR CRISTIANO PLATT MD Comment on above: PROCEDURES PERFORMED: Left coronary angiography. Left heart catheterization with ventriculography. Right coronary angiography. Percutaneous intervention on the 85% stenosis in the proximal left circumflex. Balloon angioplasty. Stent placement. Balloon angioplasty. Start: 09-06-[address] OLIVIER PLATT MD Comment on above: PROCEDURES PERFORMED: Left coronary angiography. Left heart catheterization with ventriculography. Right coronary angiography. Percutaneous intervention on the 85% stenosis in the proximal left circumflex. Balloon angioplasty. Stent placement. Balloon angioplasty. Start: 09-04-2014 Placement of stent in coronary artery DR CRISTIANO PLATT MD Comment on above: x1 Start: 08-12-[address] CRISTIANO PLATT MD Start: 08-12-1959 Cystoscopic laser lithotripsy of ureteric calculus DR CRISTIANO PLATT MD Colonoscopy DR CRISTIANO PLATT MD Cystoscopy HAY TAVAREZ MD Endoscopy DR CRISTIANO PLATT MD Comment on above: for gi bleed Hand structure (body structure) DR CRISTIANO PLATT MD Comment on above: eploration of thumg and index finger Hernia repair DR CRISTIANO PLATT MD Comment on above: inguinal History of percutane ous transluminal coronary angioplasty MIKE DANIELSON MD History of placement of stent for coronary artery disease Hx of heart artery stent Dr. Julio Licea Work Phone: Comment on above: 2015April 2024 History of placement of stent for coronary artery disease H/O heart artery stent Deanne Shen GLACIOLOGIST.MAMMOGRAPHER Work Phone: History of repair of inguinal hernia Hx of bilateral inguinal hernia repair Dr. Julio Licea Work Phone: Parathyroidectomy Parathyroidect dipti ( Confirmed ) DR CRISTIANO PLATT MD Transfusion of blood product DR CRISTIANO PLATT MD Plan of Treatment Date Care Activity Detail Author Start: 03-06-2035 Urine microalbumin profile DTaP,Tdap,Td Vaccine (6 - Td or Tdap) [facility] Start: 11-01-2028 [facility] Start: 03-16-2028 Diabetes Screening Diabetes Screening [facility] Start: 09-17-2027 Diabetes Screening Diabetes Screening [facility] Start: 04-10-2027 Diabetes Screening Diabetes Screening [facility] Start: 09-21-2026 Diabetes Screening Diabetes Screening [facility] Start: 06-25-2026 Diabetes Screening Diabetes Screening [facility] Start: 09-22-2025 Anxiety Screening Anxiety Screening [facility] Start: 09-22-2025 Covid-19 Vaccine ( season) Covid-19 Vaccine () [facility] Comment on above: Postponed from 04/12/2024 (Declined at t his time) Start: 09-22-2025 Depression Screening Depression Screening [place] [facility] Start: 09-22-2025 Shingrix Vaccine (1 of 2) Shingrix Vaccine (1 of 2) [facility] Comment on above: Postponed from 12/11/1991 (Declined at t his time) Start: 09-17-2025 Hepatitis B surface antibody level LDL Cholesterol [facility] Start: 09-06-2025 DIABETES SCREEN DIABETES SCREEN [facility] Start: 09-06-2025 Diabetes Screening Diabetes Screening [facility] Start: 05-18-2025 End: 05-18-2025 Patient encounter procedure 05/18/2025 11:00 AM EDT Office Visit Pulmonary Medicine [address] [place] [address] Teressa Kuhn GLACIOLOGIST.MAMMOGRAPHER [address] [place] [address] 2 month f/u Pulmonary Medicine Comment on above: 2 month f/u Start: 05-18-2025 End: 05-18-2025 ambulatory 05/18/2025 10:45 AM EDT Procedure Pulmonary Medicine [address] [address] 8, Pulm Fct Lab Main [address] [place] [address] Mild persistent asthma without complication (HCC) [J45.30] Pulmonary Medicine Comment on above: Mild persistent asthma without complicat ion (HCC) [J45.30] Start: 05-01-2025 Shingrix Vaccine (2 of 2) [facility]2 [facility] 2[facility] Start: 04-13-2025 End: 04-13-2025 Patient encounter procedure 04/13/2025 8:40 AM EDT Office Visit Family [facility] [address] [place] [address] Julio Licea MD [address] [place] [address] medicare wellness [facility] Comment on above: medicare wellness Start: 04-12-2025 Influenza vaccination Influenza Vaccine (#1) [place] [facility] spaulding Start: 03-22-2025 End: 06-21-2025 CBC W Auto Differential panel - Blood COMPLETE BLOOD COUNT AND DIFFERENTIAL Lab Routine Anemia of chronic disease Expected: 03/22/2025, Expires: 06/21/2025 [facility] Comment on above: Expected: 03/22/2025, Expires: Start: 03-22-2025 End: 06-21-2025 Comprehensive metabolic 2000 panel - Serum or Plasma COMPREHENSIVE METABOLIC PANEL Lab Routine ESRD (end stage renal disease) on dialysis (HCC) Expected: 03/22/2025, Expires: 06/21/2025 [facility] Comment on above: Expected: 03/22/2025, Expires: Start: 03-22-2025 End: 06-21-2025 Hemoglobin A1c in Blood HEMOGLOBIN A1C Lab Routine Screening for diabetes mellitus Expected: 03/22/2025, Expires: 06/21/2025 [facility] Comment on above: Expected: 03/22/2025, Expires: Start: 03-22-2025 End: 06-21-2025 LIPID PANEL, NONFASTING LIPID PANEL, NONFASTING Lab Routine Mixed hyperlipidemia Expected: 03/22/2025, Expires: 06/21/2025 [facility] Work Phone: Comment on above: Expected: 03/22/2025, Expires: Start: 03-16-2025 End: 03-16-2025 Patient encounter procedure 03/16/2025 8:45 AM EDT Office Visit Pulmonary Medicine [address] [place], [place] [phone] Bernice Samayoa MD [address] [facility] [place], [place] [phone] SOB (shortness of breath) [R06.02]; Wheezing [R06.2] Pulmonary Medicine Comment on above: SOB (shortness of breath) [R06.02]; Whee zing [R06.2] Start: 03-16-2025 End: 03-16-2025 ambulatory [facility] Comment on above: SOB (shortness of breath) [R06.02]; Whee zing [R06.2] Spirometry Start: 03-11-2025 End: 03-11-2025 Patient encounter procedure 03/11/2025 9:15 AM EDT Appointment Radiology [address] [place], [place] [phone] us kidney/ bladder Radiology Comment on above: us kidney/ bladder Start: 02-09-2025 End: 02-09-2025 Patient encounter procedure 02/09/2025 1:40 PM EDT Office Visit Family Medicine [place] [address] [place], [place] [phone] Deanne Shen APRN.[facility] [address] [place], [place] [phone] Pt had Pneumonia was in on 02/02/25, finished antibiotics still not feeling well. See TE 02/08/25. Family Medicine [place] Comment on above: Pt had Pneumonia was in on 02/02/25, fini shed antibiotics still not feeling well. See TE 02/08/25. Start: 10-13-2024 DIABETES SCREEN DIABETES SCREEN [facility] Start: 09-22-2024 End: 09-22-2024 Patient encounter procedure Family Medic [facility] [place] Comment on above: medicare wellness Start: 09-21-2024 Covid-19 Vaccine () Covid-19 Vaccine () [facility] Comment on above: Postponed from 04/12/2023 (Declined at t his time) Start: 09-21-2024 Hepatitis B surface antibody level LDL Cholesterol [facility] Start: 09-21-2024 RSV Vaccine (1 - 1-dose 60+ series) RSV Vaccine (1 - 1-dose 60+ series) [facility] Comment on above: Postponed from 2001 (Insurance Cov erage) Start: 09-21-2024 Shingrix Vaccine (1 of 2) Shingrix Vaccine (1 of 2) [facility] Comment on above: Postponed from 12/11/1991 (Insurance Cov erage) Start: 09-17-2024 End: 12-17-2024 Cobalamin (Vitamin B12) [Mass/volume] in Serum or Plasma [facility] Comment on above: Expected: 09/17/2024, Expires: Start: 09-17-2024 End: 12-17-2024 Comprehensive metabolic 2000 panel - Serum or Plasma [facility] Work Phone: Comment on above: Expected: 09/17/2024, Expires: Start: 09-17-2024 End: 12-17-2024 Hemoglobin A1c in Blood [facility] Comment on above: Expected: 09/17/2024, Expires: Start: 09-17-2024 End: 12-17-2024 LIPID PANEL, NONFASTING [facility] Comment on above: Expected: 09/17/2024, Expires: Start: 09-17-2024 End: 12-17-2024 Magnesium [Mass/volume] in Serum or Plasma [facility] Comment on above: Expected: 09/17/2024, Expires: Start: 09-17-2024 End: 12-17-2024 PSA/PROSTATE SPECIFIC ANTIGEN SCREENING [facility] Comment on above: Expected: 09/17/2024, Expires: Start: 09-17-2024 End: 09-17-2024 Patient encounter procedure 09/17/2024 9:00 AM EST Office Visit Family Medicine [place] [address] [facility] [place] [address] Deanne Shen APRN.MAMMOGRAPHER [address] [place], [place] [phone] [facility] f/u 09/09-09/11 abdominal Pain [facility] [place] Comment on above: [facility] f/u 09/09-09/11 abdominal Pain Start: 08-12-2024 Advance Directive Discussion Advance Directive Discussion [facility] Start: 07-16-2024 End: 07-16-2024 Patient encounter procedure 07/16/2024 9:00 AM EST Office Visit Family Medicine [place] [address] [facility] [place] [address] Deanne Shen APRN.MAMMOGRAPHER [address] [place] [address] cough and symptoms are persisting [facility] Medicine [place] Comment on above: cough and symptoms are persisting Start: 06-18-2024 End: 06-18-2024 Patient encounter procedure 06/18/2024 9:00 AM EST Office Visit General Surgery [address] [place] [address] Zaira Burnette APRN.MAMMOGRAPHER [address] [place] [address] 06-11 EGD follow up General Surgery Comment on above: 06-11 EGD follow up Start: 06-11-2024 End: 06-11-2024 Patient encounter procedure 06/11/2024 1:45 PM EDT Appointment Ambulatory Surgery [address] [place] [address] Jaylene Callejas MD [address] [place] [address] Ambulatory Surgery Start: 05-25-2024 End: 05-25-2024 Patient encounter procedure 05/25/2024 3:15 PM EDT Office Visit General Surgery [address] [place] [address] Jaylene Callejas MD [address] [place] [address] Secondary renal hyperparathyroidism (HCC) [N25.81] General Surgery Comment on above: Secondary renal hyperparathyroidism (HCC ) [N25.81] Start: 05-18-2024 End: 05-18-2024 Patient encounter procedure [facility] [place] Comment on above: [facility] 05-12-24 chest pain [facility] 05-12-24 chest pain Start: 05-01-2024 End: 04-30-2025 US Kidney - bilateral and Urinary bladder US KIDNEY/BLADDER Radiology Routine ESRD (end stage renal disease) on dialysis (HCC) Expected: 05/01/2024, Expires: 04/30/2025 [facility] Work Phone: Comment on above: Expected: 05/01/2024, Expires: Start: 04-30-2024 End: 04-30-2024 Patient encounter procedure 04/30/2024 10:00 AM EDT Appointment Radiology [address] [place] [address] Renal cyst [N28.1] Radiology Comment on above: Renal cyst [N28.1] Start: 04-21-2024 End: 04-21-2024 Patient encounter procedure Cat Scan Comment on above: Diarrhea, unspecified type [R19.7] Start: 04-12-2024 Covid-19 Vaccine () Covid-19 Vaccine () [facility] Start: 04-12-2024 Covid-19 Vaccine ( season) Covid-19 Vaccine ( season) [facility] Start: 04-12-2024 Influenza vaccination Influenza Vaccine (#1) [facility] Start: 04-10-2024 End: 07-10-2024 Amylase [Enzymatic activity/volume] in Serum or Plasma [facility] Comment on above: Expected: 04/10/2024, Expires: 4 Start: 04-10-2024 End: 07-10-2024 CBC W Auto Differential panel - Blood [facility] Work Phone: Comment on above: Expected: 04/10/2024, Expires: Start: 04-10-2024 End: 07-10-2024 Comprehensive metabolic 2000 panel - Serum or Plasma [facility] Comment on above: Expected: 04/10/2024, Expires: Start: 04-10-2024 End: 07-10-2024 Lipase [Enzymatic activity/volume] in Serum or Plasma [facility] Comment on above: Expected: 04/10/2024, Expires: 4 Start: 02-10-2024 End: 02-10-2024 Patient encounter procedure 02/10/2024 3:00 PM EDT Office Visit Endocrine Surgery [address] [place] [address] Yaya Sun MD [address] [place] [address] add on for est parathyroid visit per Dr. Sun Endocrine Surgery Comment on above: add on for est parathyroid visit per Dr. Sun Start: 01-04-2024 End: 01-04-2024 ambulatory 01/04/2024 8:30 AM EDT Results Only [place] [facility] [address] [place] [address] [place] [facility] Start: 09-24-2023 End: 12-24-2023 ALK PHOS ISOENZYM BL ALK PHOS ISOENZYM BL Lab Routine Elevated alkaline phosphatase level Expected: 09/24/2023, Expires: 12/24/2023 [facility] Work Phone: Comment on above: Expected: 09/24/2023, Expires: 4 Start: 09-06-2023 ANNUAL PCP TEAM CHRONIC DISEASE VISIT ANNUAL PCP TEAM CHRONIC DISEASE VISIT [facility] Start: 09-06-2023 HEMOGLOBIN/HEMATOCRIT HEMOGLOBIN/HEMATOCRIT [facility] Start: 09-06-2023 Hepatitis B surface antibody level LDL CHOLESTEROL [facility] Start: 09-06-2023 SERUM CREATININE SERUM CREATININE [facility] Start: 08-12-2023 Behavioral Health Screening Behavioral Health Screening [facility] Start: 06-22-2023 End: 05-21-2024 Basic metabolic 2000 panel - Serum or Plasma BASIC METABOLIC PNL Lab Routine Secondary renal hyperparathyroidism (HCC) Expected: 06/22/2023, Expires: 05/21/2024 [facility] Work Phone: Comment on above: Expected: 06/22/2023, Expires: 4 Start: 06-22-2023 End: 05-21-2024 CBC W Auto Differential panel - Blood CBC + DIFF Lab Routine Secondary renal hyperparathyroidism (HCC) Expected: 06/22/2023, Expires: 05/21/2024 [facility] Work Phone: Comment on above: Expected: 06/22/2023, Expires: 4 Start: 06-22-2023 End: 05-21-2024 Parathyrin.intact [Mass/volume] in Serum or Plasma PTH INTACT BLD Lab Routine Secondary renal hyperparathyroidism (HCC) Expected: 06/22/2023, Expires: 05/21/2024 [facility] Work Phone: Comment on above: Expected: 06/22/2023, Expires: 4 Start: 04-23-2023 Hepatitis B Vaccine (5 of 5 - Risk Dialysis Recombivax 3-dose series) Hepatitis B Vaccine (5 of 5 - Risk Dialysis Recombivax 3-dose series) [facility] Start: 04-12-2023 Covid-19 Vaccine () Covid-19 Vaccine () [facility] Start: 04-12-2023 Influenza vaccination Influenza Vaccine (#1) [facility] Start: 02-22-2023 Adult depression screening assessment DEPRESSION SCREENING [facility] Start: 02-22-2023 ANNUAL PCP TEAM CHRONIC DISEASE VISIT ANNUAL PCP TEAM CHRONIC DISEASE VISIT [facility] Start: 02-22-2023 BP CONTROLLED (<130/80) BP CONTROLLED (<130/80) [facility] Start: 02-22-2023 Hepatitis B surface antibody level LDL CHOLESTEROL [facility] Start: 02-22-2023 SHINGRIX VACCINE (1 of 2) SHINGRIX VACCINE (1 of 2) [facility] Comment on above: Postponed from 12/11/1991 (Insurance Cov erage) Start: 12-15-2022 ANNUAL PCP TEAM CHRONIC DISEASE VISIT ANNUAL PCP TEAM CHRONIC DISEASE VISIT [facility] Start: 12-15-2022 BP CONTROLLED (<130/80) BP CONTROLLED (<130/80) [facility] Start: 11-30-2022 HEMOGLOBIN/HEMATOCRIT HEMOGLOBIN/HEMATOCRIT [facility] Start: 11-30-2022 SERUM CREATININE SERUM CREATININE [facility] Start: 11-17-2022 ANNUAL PCP TEAM CHRONIC DISEASE VISIT ANNUAL PCP TEAM CHRONIC DISEASE VISIT [facility] Start: 11-02-2022 SERUM CREATININE SERUM CREATININE [facility] Start: 10-19-2022 ANNUAL PCP TEAM CHRONIC DISEASE VISIT ANNUAL PCP TEAM CHRONIC DISEASE VISIT [facility] Start: 10-19-2022 SERUM CREATININE SERUM CREATININE [facility] Start: 09-06-2022 End: 11-06-2022 Cobalamin (Vitamin B12) [Mass/volume] in Serum or Plasma [facility] Work Phone: Comment on above: Expected: 09/06/2022, Expires: 3 Start: 09-06-2022 End: 11-06-2022 Comprehensive metabolic 2000 panel - Serum or Plasma [facility] Work Phone: Comment on above: Expected: 09/06/2022, Expires: 3 Start: 09-06-2022 End: 11-06-2022 LIPID PANEL, NONFASTING [facility] Work Phone: Comment on above: Expected: 09/06/2022, Expires: 3 Start: 09-06-2022 End: 11-06-2022 Magnesium [Mass/volume] in Serum or Plasma [facility] Work Phone: Comment on above: Expected: 09/06/2022, Expires: 3 Start: 09-06-2022 End: 11-06-2022 Urinalysis complete panel - Urine [facility] Work Phone: Comment on above: Expected: 09/06/2022, Expires: 3 Start: 04-12-2022 Influenza vaccination INFLUENZA (#1) [facility] Start: 02-08-2022 Patient discharge [facility] Work Phone: Start: 01-23-2022 Egd transoral biopsy single/multiple EGD BIOPSY SINGLE/MULTIPLE [facility] Work Phone: Start: 01-23-2022 Patient discharge [facility] Work Phone: Start: 12-26-2021 Adult depression screening assessment DEPRESSION SCREENING [facility] Start: 12-26-2021 BP CONTROLLED (<130/80) BP CONTROLLED (<130/80) [facility] Start: 12-26-2021 HEMOGLOBIN/HEMATOCRIT HEMOGLOBIN/HEMATOCRIT [facility] Start: 12-26-2021 Hepatitis B surface antibody level LDL CHOLESTEROL [facility] Start: 2021 SHINGRIX VACCINE (1 of 2) SHINGRIX VACCINE (1 of 2) [facility] Comment on above: Postponed from 12/11/1991 (Insurance Cov erage) Start: 11-29-2021 COVID-19 VACCINE (4 - Booster for Moderna series) COVID-19 VACCINE (4 - Booster for Moderna series) [facility] Start: 09-25-2021 COVID-19 VACCINE (4 - Booster for Moderna series) COVID-19 VACCINE (4 - Booster for Moderna series) [facility] Start: 09-25-2021 Covid-19 Vaccine (4 - Moderna series) Covid-19 Vaccine (4 - Moderna series) [facility] Start: 08-12-2021 ADVANCE DIRECTIVE DISCUSSION ADVANCE DIRECTIVE DISCUSSION [facility] Start: 08-12-2021 DEPRESSION ASSESSMENT DEPRESSION ASSESSMENT [facility] Start: 10-11-2017 Finding of potassium level (finding) POTASSIUM [facility] Work Phone: Start: 2006 Pneumococcal vaccination PNEUMOCOCCAL VACCINE SERIES (1 of 2 - PCV13) [facility] Work Phone: Start: 2001 RSV Vaccine (1 - 1-dose 60+ series) RSV Vaccine (1 - 1-dose 60+ series) [facility] Start: 12-11-1991 Protein mass conc COLON CANCER SCREENING DISCUSSION [facility] Work Phone: Start: 12-11-1991 SHINGRIX VACCINE (1 of 2) SHINGRIX VACCINE (1 of 2) [facility] Start: 1960 Third diphtheria, tetanus and acellular pertussis (DTaP) vaccination TDAP (ADULT) [facility] Work Phone: Start: 12-11-1959 Anxiety Screening Anxiety Screening [facility] Start: 12-11-1959 Depression Screening Depression Screening [facility] Start: 12-11-1959 Tetanus vaccination [facility] Work Phone: End: 05-10-2025 CT Abdomen and Pelvis WO contrast CT ABD/PEL WO IVCON Radiology Routine Diarrhea, unspecified type Nausea Flatulence/gas pain/belching 1 Occurrences starting 04/10/2024 until 05/10/2025 [facility] Comment on above: 1 Occurrences starting 04/10/2024 until 05/10/2025 CT Abdomen and Pelvi s WO contrast CT ABD/PEL WO IVCON Radiology Routine Diarrhea, unspecified type Nausea Flatulence/gas pain/belching 04/21/2024 9:57 AM EDT [facility] Work Phone: End: 05-21-2024 ECG COMPLETE ECG COMPLETE ECG Routine Secondary renal hyperparathyroidism (HCC) 1 Occurrences starting 05/22/2023 until 05/21/2024 [facility] Work Phone: Comment on above: 1 Occurrences starting 05/22/2023 until 05/21/2024 End: 05-25-2025 EGD DIAGNOSTIC EGD DIAGNOSTIC Endoscopy Routine Hiatal hernia Gastroesophageal reflux disease, unspecified whether esophagitis present 1 Occurrences starting 05/25/2024 until 05/25/2025 [facility] Work Phone: Comment on above: 1 Occurrences starting 05/25/2024 until 05/25/2025 End: 10-26-2024 NM Whole body Bone Views NM BONE WHOLE BODY Radiology Routine Elevated alkaline phosphatase level 1 Occurrences starting 09/27/2023 until 10/26/2024 [facility] Work Phone: Comment on above: 1 Occurrences starting 09/27/2023 until 10/26/2024 Patient Education ED ADENITIS Ce rvical Abx Tx [facility] Work Phone: Patient referral [facility] Work Phone: Radionuclide gastric emptying study [facility] REFER FOR ADMIT INTERVIEW REFER FOR ADMIT INTERVIEW Procedures Routine Secondary renal hyperparathyroidism (HCC) Ordered: 05/22/2023 [facility] Work Phone: Comment on above: Ordered: 05/22/2023 SPIROMETRY WITH DILA TOR IF OBSTRUCTED SPIROMETRY WITH DILATOR IF OBSTRUCTED PFT Routine Shortness of breath Wheezing 03/16/2025 7:59 AM EDT [facility] Work Phone: SURGICAL PATHOLOGY [facility] Work Phone: Comment on above: Release Upon Ordering for 1 Occurrences starting 06/11/2024, 1 completed End: 05-24-2025 US Kidney - bilateral and Urinary bladder US KIDNEY/BLADDER Radiology STAT Renal cyst 1 Occurrences starting 04/24/2024 until 05/24/2025 [facility] Work Phone: Comment on above: 1 Occurrences starting 04/24/2024 until 05/24/2025 US Kidney - bilatera l and Urinary bladder US KIDNEY/BLADDER Radiology Routine ESRD (end stage renal disease) on dialysis (HCC) 03/11/2025 10:00 AM EDT [facility] Work Phone: End: 03-11-2026 XR Chest PA and Lateral XR CHEST 2V FRONTAL/LAT Radiology Routine Bacterial pneumonia 1 Occurrences starting 02/09/2025 until 03/11/2026 [facility] Work Phone: Comment on above: 1 Occurrences starting 02/09/2025 until 03/11/[address] [facility] Immunizations Immunization Date Immunization Notes Care Provider Fa cility 03-06-2025 tetanus toxoid, redu kenrick diphtheria toxoid, and acellular pertussis vaccine, adsorbed Us 1 Work Phone: [facility] 03-06-2025 zoster vaccine recombinant Us 1 Work Phone: [facility] 04-18-2024 RSV Adult Recombinan t (Arexvy) Dr. Julio Licea MD Work Phone: [facility] 04-18-2024 RSV vaccine preF3, recombinant THOMAS SON DO [facility] 04-18-2024 influenza virus vacc ine, unspecified formulation Deanne Shen APRN.MAMMOGRAPHER Work Phone: [facility] 09-21-2023 pneumococcal 20-bo nt conjugate vaccine NIDAL CHOUJAA DO [facility] 09-21-2023 pneumococcal conjuga te (PCV20) vaccine, 20 valent (PREVNAR 20) Julio Licea MD Work Phone: [facility] 05-14-2023 influenza (HD-IIV4) vaccine, age 65+ yr, high dose, quadrivalent, PF (FLUZONE HIGH-DOSE) Fermin Chauhan MD Work Phone: [facility] 05-14-2023 influenza virus vacc ine, unspecified formulation NIDAL CHOUJAA DO [facility] 05-22-2022 influenza (aIIV4) vaccine, age 65+ yr, quadrivalent, PF (FLUAD QUAD) Fermin Chauhan MD Work Phone: [facility] 05-22-2022 influenza, injectabl e, quadrivalent, preservative free Dr. Julio Licea MD Work Phone: [facility] 05-22-2022 influenza virus vacc ine, unspecified formulation Elana Candelario PA-C Work Phone: [facility] 04-23-2022 Hepatitis B vaccine (recombinant), CpG adjuvanted Fermin Chauhan MD Work Phone: [facility] 02-19-2022 Hepatitis B vaccine (recombinant), CpG adjuvanted Fermin Chauhan MD Work Phone: [facility] 01-22-2022 Hepatitis B vaccine (recombinant), CpG adjuvanted Fermin Chauhan MD Work Phone: [facility] 12-19-2021 Hepatitis B vaccine (recombinant), CpG adjuvanted Fermin Chauhan MD Work Phone: [facility] 07-31-2021 SARS-CoV-2 (COVID-19 ) mRNA-[id number] vaccine NIDAL CHOUJAA DO [facility] 04-27-2021 influenza (aIIV4) vaccine, age 65+ yr, quadrivalent, PF (FLUAD QUAD) Fermin Chauhan MD Work Phone: [facility] 04-27-2021 influenza virus vacc ine, unspecified formulation NIDAL CHOUJAA DO [facility] 04-27-2021 influenza, injectabl e, quadrivalent, preservative free Dr. Julio Licea MD Work Phone: [facility] 11-08-2020 COVID-19 vaccine, fu ll dose (MODERNA) Julio Licea MD Work Phone: [facility] Work Phone: 10-11-2020 SARS-CoV-2 (COVID-19 ) mRNA-1273 vaccine NIDAL CHOUJAA DO [facility] 04-29-2020 influenza virus vacc ine, unspecified formulation NIDAL CHOUJAA DO [facility] 04-29-2020 influenza, high dose seasonal, preservative-free Julio Licea MD Work Phone: [facility] 04-29-2020 influenza, injectabl e, quadrivalent, preservative free Fermin Chauhan MD Work Phone: [facility] 05-29-2019 influenza virus vacc ine, unspecified formulation NIDAL CHOUJAA DO [facility] 05-29-2019 influenza, high dose seasonal, preservative-free Julio Licea MD Work Phone: [facility] 05-29-2019 Influenza, injectabl e, Madin Madelyn Canine Kidney, preservative free, quadrivalent Fermin Chauhan MD Work Phone: [facility] 10-31-2018 tetanus toxoid, redu kenrick diphtheria toxoid, and acellular pertussis vaccine, adsorbed DR CRISTIANO PLATT MD [facility] 05-08-2018 influenza virus vacc ine, unspecified formulation NIDAL KENTONSALINASA DO [facility] 05-08-2018 influenza, high dose seasonal, preservative-free Julio Licea MD Work Phone: [facility] 05-08-2018 Seasonal trivalent influenza vaccine, adjuvanted, preservative free Fermin Chauhan MD Work Phone: [facility] 05-30-2017 influenza virus vacc ine, unspecified formulation NIDAL CHOUJAA DO [facility] 05-30-2017 influenza, high dose seasonal, preservative-free Julio Licea MD Work Phone: [facility] 03-04-2017 pneumococcal polysaccharide vaccine, 23 valent Julio Licea MD Work Phone: [facility] 05-21-2016 influenza virus vacc ine, unspecified formulation EMILIANAAL CHOSALINASA DO [facility] 05-21-2016 influenza, high dose seasonal, preservative-free Julio Licea MD Work Phone: [facility] 06-14-2015 influenza virus vacc ine, unspecified formulation CLIVE VALENCIA DO [facility] 06-14-2015 influenza, high dose seasonal, preservative-free Fermin Chauhan MD Work Phone: [facility] 12-24-2014 pneumococcal conjuga te vaccine, 13 valent Julio Licea MD Work Phone: [facility] 07-01-2013 influenza virus vacc ine, unspecified formulation Julio Licea MD Work Phone: [facility] 05-23-2012 influenza virus vacc ine, unspecified formulation Julio Licea MD Work Phone: [facility] 03-13-2012 tetanus and diphther ia toxoids, adsorbed, preservative free, for adult use (2 Lf of tetanus toxoid and 2 Lf of diphtheria toxoid) Julio Licea MD Work Phone: [facility] Work Phone: 07-31-2011 influenza virus vacc ine, unspecified formulation Julio Licea MD Work Phone: [facility] 06-29-2009 influenza virus vacc ine, unspecified formulation Julio Licea MD Work Phone: [facility] 06-26-2006 influenza virus vacc ine, whole virus Julio Licea MD Work Phone: [facility] Work Phone: 08-01-2005 influenza virus vacc ine, whole virus Julio Licea MD Work Phone: [facility] Work Phone: 08-01-2005 pneumococcal polysaccharide vaccine, 23 valent Julio Licea MD Work Phone: [facility] Work Phone: 06-24-2000 diphtheria and tetan us toxoids, adsorbed for pediatric use Julio Licea MD Work Phone: [facility] Payers Date Payer Category Payer Private Health Insurance 76e [id number] 2024 Self-pay [id number] 2023 Medicare [id number] 2019 Medicare [facility] MEDICAR E [facility] MEDIC[facility] HMO [id number] 2019-Present [phone] [address] [address] [place] [address] HMO [id number] 2019 Medicare [id number] 2019 Medicare (Managed Care) [facility] MEDICARE HMO [id number] 2019 Unknown [id number] 1941 Unknown [id number] 2.16.840.1.362389.3.579.2 .594 1941 Unknown [id number] 2.16.840.1.433817.3.579.2 .594 1941 Unknown [id number] 2.16.840.1.015668.3.579.2 .594 1941 Unknown [id number] 2.16.840.1.280442.3.579.2 .1941 Unknown [id number] 2.16.840.1.537073.3.579.2 .7 1941 Unknown [id number] 2.16.840.1.380864.3.579.2 .1941 Unknown [id number] 2.16.840.1.274252.3.579.2 .1941 Unknown [id number] 2.16.840.1.662268.3.579.2 .1941 Unknown [id number] 2.16.840.1.659899.3.579.2 .1941 Unknown [id number] 2.16.840.1.677175.3.579.2 .1941 Unknown [id number] 2.16.840.1.439751.3.579.2 .1941 Unknown [id number] 2.16.840.1.965746.3.579.2 .1941 Unknown [id number] 2.16.840.1.440963.3.579.2 .1941 Unknown [id number] 2.16.840.1.594743.3.579.2 .1941 Unknown [id number] 2.16.840.1.153690.3.579.2 .1941 Unknown [id number] 2.16.840.1.110102.3.579.2 .1941 Unknown [id number] 2.16.840.1.142065.3.579.2 .1941 Unknown [id number] 2.16.840.1.196668.3.579.2 .62 1941 Unknown [id number] 2.16.840.1.745264.3.579.2 .62 1941 Unknown [id number] 2.16.840.1.383952.3.579.2 .62 1941 Unknown [id number] 2.16.840.1.595077.3.579.2 .1941 Unknown [id number] 2.16.840.1.471235.3.579.2 .1941 Unknown [id number] 2.16.840.1.032494.3.579.2 .1941 Unknown [id number] 2..840.1.815825.3.579.2 .1941 Unknown [id number] 2.840.1.784746.3.579.2 Medicare [id number] Unknown [id number] Unknown [id number] Unknown [id number] 2..840.1.015082.3.579.2 .462 Unknown [id number] 2.840.1.380884.3.579.2 .462 Unknown [id number] 2.840.1.315540.3.579.2 .462 Unknown [id number] 2.16.840.1.546652.3.579.2 .462 Unknown [id number] 2.16.840.1.291534.3.579.2 .462 Unknown [id number] 2.16.840.1.839711.3.579.2 .462 Unknown [id number] 2.16840.1.982555.3.579.2 .462 Unknown [id number] 2.16840.1.089140.3.579.2 .462 Unknown [id number] 2.16.840.1.878407.3.579.2 .462 Unknown [id number] 2.16.840.1.537220.3.579.2 .462 Unknown [id number] 2.16.840.1.390912.3.579.2 .462 Unknown [id number] 2.16.840.1.800408.3.579.2 .462 Unknown [id number] 2.16.840.1.401246.3.579.2 .462 Social History Date Type Detail Facility Start: 07-08-2018 End: 03-16-2025 Tobacco smoking status NHIS Former smoker [facility] Work Phone: Comment on above: quit 1975 Start: 08-12-1958 End: 08-12-1975 History of tobacco use Current smoker [facility] Work Phone: Start: 08-12-1958 End: 08-12-1975 History of tobacco use Cigarette Smoker [facility] Work Phone: Sex Assigned At Not on file [facility] Work Phone: Start: 10-30-2021 End: 03-16-2025 Alcohol intake Current drinker of alcohol (finding) [facility] Start: 1940 Sex Assigned At Male [facility] Start: 10-09-2021 End: 02-22-2022 Exposure to SARS-CoV-2 (event) Not sure [facility] Start: 01-13-2021 End: 02-11-2022 Tobacco smoking status NHIS Unknown if ever smoked [facility] Work Phone: Start: 12-18-2019 Non-smoker [facility] Start: 01-08-2022 End: 01-18-2022 Exposure to SARS-CoV-2 (event) Unable to assess [facility] Work Phone: Start: 07-31-2011 End: 03-16-2025 Tobacco use and exposure Smokeless tobacco non-user [facility] Start: 09-06-2022 Tobacco Comment quit 1975 [facility] Start: 09-06-2022 End: 05-21-2023 History of Social function [facility] Work Phone: Start: 10-30-2021 End: 05-21-2023 Tobacco use panel [facility] Work Phone: Adult Depression Screening Assessment 0 [facility] Work Phone: Start: 10-30-2021 Gender identity Identifies as male gender (finding) [facility] Has the [employer], [employer], or [employer] threatened to shut off services in your home in past 12Mo No [facility] Start: 05-18-2021 End: 06-17-2021 Do you belong to any clubs or organizations such as taoism groups, unions, fraternal or athletic groups, or school groups? Yes [facility] Are you now , , , , never or living with a partner? [facility] How often to you hav e a drink containing alcohol? 2-4 times a month [facility] How many standard dr inks containing alcohol do you have on a typical day? 1 or 2 [facility] How often do you hav e 6 or more drinks on 1 occasion? Never [facility] Do you feel stress - tense, restless, nervous, or anxious, or unable to sleep at night because your mind is troubled all the time - these days [OSQ] Only a little [facility] (I/We) worried wheth er (my/our) food would run out before (I/we) got money to buy more. Never true [facility] Start: 05-25-2024 Alcohol Comment very little [facility] Sexual Orientation [facility] dori [facility] Start: 07-07-2019 Sex Male (finding) [facility] Start: 03-16-2025 Tobacco Comment quit 1975. 1.5 ppd started at age 18 [facility] Medical Equipment Procedure Code Equipment Code Equipment Origin al Text Equipment Identifier Dates Repair, hernia, incisional, with mesh insertion MESH,VENTLEX ST ,LG 8CM FDA Start: 01-20-2021 Repair, hernia, incisional, with mesh insertion MESH,VENTLEX ST ,LG 8CM FDA Start: 01-20-2021 Repair, hernia, incisional, with mesh insertion MESH,VENTLEX ST ,LG 8CM FDA Start: 01-20-2021 Repair, hernia, incisional, with mesh insertion MESH,VENTLEX ST ,LG 8CM FDA Start: 01-20-2021 Repair, hernia, incisional, with mesh insertion MESH,VENTLEX ST ,LG 8CM FDA Start: 01-20-2021 Creation, AV fistula Ligation clip, metallic [id number] FDA Start: 02-08-2022 Creation, AV fistula Ligation clip, metallic [id number] FDA Start: 02-08-2022 JARRED JAVED FDA Start: 05-21-2018 MESH,3DMAX RIGHT LG [id number] FDA Start: 05-21-2018 TACKER,SECURE STRAP FDA Start: 05-21-2018 FDA Start: 11-10-2018 FDA Start: 11-10-2018 JARRED JAVED FDA Start: 05-21-2018 MESH,3DMAX RIGHT LG [id number] FDA Start: 05-21-2018 TACKER,SECURE STRAP FDA Start: 05-21-2018 JARRED JAVED FDA Start: 05-21-2018 MESH,3DMAX RIGHT LG [id number] FDA Start: 05-21-2018 TACKER,SECURE STRAP FDA Start: 05-21-2018 JARRED JAVED FDA Start: 05-21-2018 MESH,3DMAX RIGHT LG [id number] FDA Start: 05-21-2018 TACKER,SECURE STRAP FDA Start: 05-21-2018 Unknown Unknown 11/10/18 Unknown Unknown FDA Start: 11-10-2018 FDA Start: 11-10-2018 Unknown Unknown 11/10/18 Unknown Unknown FDA Start: 11-10-2018 FDA Start: 11-10-2018 Unknown Unknown 11/10/18 Unknown Unknown FDA Start: 11-10-2018 FDA Start: 11-10-2018 Unknown Unknown 11/10/18 Unknown Unknown FDA Start: 11-10-2018 FDA Start: 11-10-2018 Unknown Unknown 11/10/18 Unknown Unknown FDA Start: 11-10-2018 FDA Start: 11-10-2018 Unknown Unknown 4/1/19 Unknown Unknown FDA Start: 11-10-2018 FDA Start: 11-10-2018 Unknown Unknown 4/1/19 Unknown Unknown FDA Start: 11-10-2018 FDA Start: 11-10-2018 Unknown Unknown 4/1/19 Unknown Unknown FDA Start: 11-10-2018 FDA Start: 11-10-2018 Unknown Unknown 4/1/19 Unknown Unknown FDA Start: 11-10-2018 FDA Start: 11-10-2018 Unknown Unknown 4/1/19 Unknown Unknown FDA Start: 11-10-2018 FDA Start: 11-10-2018 Unknown Unknown 4/1/19 Unknown Unknown FDA Start: 11-10-2018 FDA Start: 11-10-2018 Unknown Unknown 4/1/19 Unknown Unknown FDA Start: 11-10-2018 FDA Start: 11-10-2018 Unknown Unknown 4/1/19 Unknown Unknown FDA Start: 11-10-2018 FDA Start: 11-10-2018 Unknown Unknown 4/1/19 Unknown Unknown FDA Start: 11-10-2018 FDA Start: 11-10-2018 Unknown Unknown 4/1/19 Unknown Unknown FDA Start: 11-10-2018 FDA Start: 11-10-2018 Unknown Unknown 4/1/19 Unknown Unknown FDA Start: 11-10-2018 FDA Start: 11-10-2018 Unknown Unknown 4/1/19 Unknown Unknown FDA Start: 11-10-2018 FDA Start: 11-10-2018 Unknown Unknown 4/1/19 Unknown Unknown FDA Start: 11-10-2018 FDA Start: 11-10-2018 JARRED JAVED FDA Start: 05-21-2018 MESH,3DMAX RIGHT LG [id number] FDA Start: 05-21-2018 TACKER,SECURE STRAP FDA Start: 05-21-2018 Unknown Unknown 4/1/19 Unknown Unknown FDA Start: 11-10-2018 FDA Start: 11-10-2018 Unknown Unknown 4/1/19 Unknown Unknown FDA Start: 11-10-2018 FDA Start: 11-10-2018 Unknown Unknown 4/1/19 Unknown Unknown FDA Start: 11-10-2018 FDA Start: 11-10-2018 Goals Date Patient Goal Desired Activity /State Functional Status Date Assessment Result Facility 11-18-2024 Functional Status Split level home [facility] 11-18-2024 [facility] 11-18-2024 [facility]-18-2024 Functional Status Bath cloths, CHG bath [facility] 11-18-2024 [facility] 11-17-2024 Functional Status None [facility] 11-05-2024 Functional Status Awake, Resting [facility] 11-05-2024 Functional Status Room check per formed, Slitter Processed Film at bedside [facility] 11-05-2024 [facility] 05-12-2024 Functional Status Door open, Non-Slip footwear, Room check performed [facility] 05-12-2024 Functional [facility] 05-12-2024 [facility] 05-12-2024 Functional [facility] 05-10-2024 Functional Status Assistive Device None [facility] 05-10-2024 Functional Status [facility] 05-10-2024 Functional [facility] 05-10-2024 Functional Status Skin moisturiz er, Bath cloths, Shampoo cap [facility] 05-09-2024 Functional Status [facility] 05-08-2024 Functional Status Split level home [facility] 05-08-2024 [facility] 05-08-2024 Functional Status ID band on, Call device within reach, Bed in low position [facility] 05-08-2024 [facility] Functional Status Room check performed [facility] 02-25-2024 Functional Status [facility] 02-25-2024 [facility] 02-25-2024 Functional Status None [facility] 02-25-2024 Functional Status [facility] 02-25-2024 Functional Status [facility] 02-24-2024 Functional Status [facility] 11-19-2023 Functional Status Room check performed [facility] 11-19-2023 [facility] 11-19-2023 [facility] 11-18-2023 Functional Status Assistive Device None A [facility] 11-18-2023 Functional Status [facility] 11-18-2023 Functional Status 7am-11am [facility] 11-18-2023 Functional Status [facility] 11-17-2023 Functional Status [facility] 11-17-2023 Functional Status [facility] 11-17-2023 Functional Status [facility] 11-17-2023 Functional Status [facility] 11-17-2023 Functional Status [facility] 11-16-2023 Functional Status [facility] 11-15-2023 Functional Status [facility] 11-15-2023 Functional Status Room check performed [facility]15-[facility] 12-07-[facility] 12-07-2021 [facility] Status [facility] 12-07-2021 Functional Status [facility] 12-07-2021 Functional Status [facility] 12-07-2021 Functional Status [facility] 12-06-2021 Functional Status [facility] 12-06-2021 Functional Status [facility] 12-05-2021 Functional Status [facility] 12-05-2021 Functional Status [facility] 12-05-2021 Functional Status [facility] 12-04-2021 Functional Status [facility] 12-03-2021 Functional Status [facility] 12-02-2021 Functional Status [facility] 12-01-2021 Functional Status [facility] 11-30-2021 Functional Status [facility] 12-24-2014 Are you deaf, or do you have serious difficulty hearing No 12/24/2014 10:26 AM Francis Haider MA No [facility] 12-24-2014 Are you blind, or do you have serious difficulty seeing, even when wearing glasses No 12/24/2014 10:26 AM Francis Haider MA [facility] 12-24-2014 Do you have serious difficulty walking or climbing stairs No 12/24/2014 10:26 AM Francis Haider MA [facility] 12-24-2014 Do you have difficul ty dressing or bathing No 12/24/2014 10:26 AM Francis Haider MA [facility] 12-24-2014 Because of a physica l, mental, or emotional condition, do you have difficulty doing errands alone such as visiting a physician's office or shopping No 12/24/2014 10:26 AM Francis Haider MA [facility] Mental Status Date Assessment Result Facility 11-18-2024 Mental Status Oriented x 4 [facility] 11-18-2024 Mental Status [facility] 11-18-2024 Mental Status Orientation Asse ssment Oriented x 4 [facility] 11-17-2024 Mental Status [facility] 11-05-2024 Mental Status Orientation Oriented x 4 [facility] 11-05-2024 Mental Status [facility] 11-05-2024 Mental Status [facility] 05-12-2024 Mental Status Oriented x 4 [facility] 05-12-2024 Mental Status [facility] 05-12-2024 Mental Status [facility] 05-08-2024 Mental Status Orientation Oriented x 4 [facility] 02-25-2024 Mental Status Oriented x 4 [facility] 02-25-2024 Mental Status [facility] 02-25-2024 Mental Status [facility] 11-19-2023 Mental Status Orientation Oriented x 4 [facility] 11-19-2023 Mental Status [facility] 11-18-2023 Mental Status [facility] 11-18-2023 Mental Status Orientation Asse ssment Oriented x 4 [facility] 11-17-2023 Mental Status [facility] 11-15-2023 Mental Status Orientation Orie nted x 4, Follows simple commands [facility] 11-15-2023 Mental Status [facility] 11-15-2023 Mental Status [facility] 02-11-2022 Cognitive function Level Of Cons ciousness Awake;Alert;Appropriate;Fol lows Commands [facility] Work Phone: 02-08-2022 Cognitive function Level Of Cons ciousness Awake;Alert;Appropriate [facility] Work Phone: 02-08-2022 Cognitive function Voice/Name [facility] Work Phone: 01-23-2022 Cognitive function Voice/Name [facility] Work Phone: 01-23-2022 Cognitive function Patient Orien tation Person;Place;Time [facility] Work Phone: 12-07-2021 Mental Status [facility] 12-07-2021 Mental Status [facility] 12-06-2021 Mental Status [facility] 12-06-2021 Mental Status [facility] 12-24-2014 Because of a physica l, mental, or emotional condition, do you have serious difficulty concentrating, remembering, or making decisions No 12/24/2014 10:26 AM Francis Haider MA [facility] Clinical Notes 03-04-2017 to 03-16-2025 Darya Bledsoe Tech - 03/16/2025 9:37 AM EDTDarya Bledsoe Tech - 03/16/2025 9:37 AM EDTCMonique espinosa RDMS - 03/11/2025 9:15 AM EDT Note Date & Type Note Facility 03-16-2025 Procedure note Associated Ord er(s): NITRIC OXIDE, EXHALED ALLERGY AND IMMUNOLOGY ORAL EXHALED NITRIC OXIDE SERVICE DATE: 03/16/2025 SERVICE TIME: 9:38 AM Oral Exhaled Nitric Oxide measurement: 32.0 (ppb) Normal: Adult <25 ppb, pediatric (<12 years) <20 ppb High Normal / Increased: Adult 25-50 ppb, pediatric (<12 years) 20-35 ppb Moderately raised exhaled Nitric Oxide may indicate underlying inflammation, but note that: Cold and influenza can raise exhaled Nitric Oxide and some patients have higher baseline exhaled Nitric Oxide levels than others. High: Adult >50 ppb, pediatric (<12 years) >35 ppb Indicative of ongoing eosinophilic inflammation. Symptomatic patient likely to respond to steroids. Possible causes (if already on steroids): Poor compliance, recent allergen exposure, steroid dose inadequate, and steroid resistance. Note that not all patients with high exhaled nitric oxide levels display symptoms. Oral Exhaled Nitric Oxide measurement (Previous Encounters) Test Date Oral Exhaled Nitric Oxide (ppb) 03/16/2025 32.0 NAME: Chucky Lee PATIENT NAME: Luis Manuel Duran JR DATE: March 16, 2025 TIME: 9:38 AM [facility] 03-16-2025 Procedure note Associated Ord er(s): NITRIC OXIDE, EXHALED ALLERGY AND IMMUNOLOGY ORAL EXHALED NITRIC OXIDE SERVICE DATE: 03/16/2025 SERVICE TIME: 9:38 AM Oral Exhaled Nitric Oxide measurement: 32.0 (ppb) Normal: Adult <25 ppb, pediatric (<12 years) <20 ppb High Normal / Increased: Adult 25-50 ppb, pediatric (<12 years) 20-35 ppb Moderately raised exhaled Nitric Oxide may indicate underlying inflammation, but note that: Cold and influenza can raise exhaled Nitric Oxide and some patients have higher baseline exhaled Nitric Oxide levels than others. High: Adult >50 ppb, pediatric (<12 years) >35 ppb Indicative of ongoing eosinophilic inflammation. Symptomatic patient likely to respond to steroids. Possible causes (if already on steroids): Poor compliance, recent allergen exposure, steroid dose inadequate, and steroid resistance. Note that not all patients with high exhaled nitric oxide levels display symptoms. Oral Exhaled Nitric Oxide measurement (Previous Encounters) Test Date Oral Exhaled Nitric Oxide (ppb) 03/16/2025 32.0 NAME: Chucky Lee PATIENT NAME: Luis Manuel Duran JR DATE: March 16, 2025 TIME: 9:38 AM documented in this encounter [facility] 03-11-2025 History of Present illness Narrative Radiology Service Progress Note PATIENT NAME: Luis Manuel Duran JR DATE OF SERVICE: March 11, 2025 TIME: 9:43 AM PATIENT IDENTITY VERIFICATION COMPLETED USING TWO (2) IDENTIFIERS: Name and Date of confirmed by patient verbally. FALL SCREENING: Has the patient had 2 falls in the last year or 1 fall with injury or currently using an Ambulatory Assistive Device (Walker, Cane, Wheelchair, Crutches, etc.)? No PATIENT GENDER DATA: Assigned male at PATIENT RELEVANT IMPLANT DATA REVIEWED: Not Applicable PATIENT PRESENTS WITH AN IMPLANTABLE OR ATTACHED SENIOR NETWORK SECURITY ARCHITECT: No RADIOLOGY DEPARTMENT: Ultrasound PERIPHERAL IV DATA: Not applicable SIGNED BY: Monique aHger RDMS March 11, 2025 9:43 AM documented in this encounter [facility] 03-11-2025 Note HNO ID: [id number] Author: MONIQUE HAGER RDMS Service: ? Author Type: Agriculture Mechanic Type: Progress Notes Filed: 03/11/2025 09:44 Note Text: Radiology Service Progress Note PATIENT NAME: Luis Manuel Duran JR DATE OF SERVICE: March 11, 2025 TIME: 9:43 AM PATIENT IDENTITY VERIFICATION COMPLETED USING TWO (2) IDENTIFIERS: Name and Date of confirmed by patient verbally. FALL SCREENING: Has the patient had 2 falls in the last year or 1 fall with injury or currently using an Ambulatory Assistive Device (Walker, Cane, Wheelchair, Crutches, etc.)? No PATIENT GENDER DATA: Assigned male at PATIENT RELEVANT IMPLANT DATA REVIEWED: Not Applicable PATIENT PRESENTS WITH AN IMPLANTABLE OR ATTACHED SENIOR NETWORK SECURITY ARCHITECT: No RADIOLOGY DEPARTMENT: Ultrasound PERIPHERAL IV DATA: Not applicable SIGNED BY: Monique Hager RDMS March 11, 2025 9:43 AM [facility] 03-03-2025 Discharge summary Date of Service 03/03/2025 15:58:07 Discharge Diagnosis Unstable angina, resolved Elevated troponin, likely type II demand ischemia Severe aortic stenosis status post recent TAVR Coronary artery disease status post PCI to mid RCA 10/2024, proximal LCx 80% drug-coated balloon angioplasty, prior PCI in April 2024 First-degree AV block with known prolonged DC interval, typically around 400 ms Chronic HFpEF, now with reduced ejection fraction. 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 Pressure and pain started around 2 AM with radiation to his jaw and neck, was persistent. Went to the emergency room, where workup was significant for a prolonged DC interval around 400 ms (which is known), elevated blood pressures, elevated troponins initially in the 260s then up trended to 270s. Chest x-ray was concerning for possible bilateral pneumonia, patient was given azithromycin and ceftriaxone. Was transferred to CCU for further evaluation. On arrival to CCU, blood pressure was noted to be elevated in the 180s. As patient was still complaining of chest pain his Imdur was increased to 60 mg and he was given Nitropaste with no significant improvement in symptoms. Nephrology was consulted and patient was taken to dialysis. BP improved and patient had an overall improvement in symptoms after dialysis. Repeat troponin showed a downtrending troponins to 190s. He underwent a stress test that did not demonstrate any inducible ischemia. However echocardiogram was concerning for a further drop in ejection fraction from 40 to 35%. Patient continued to endorse no chest pain. Hydralazine 25 mg 3 times daily was added as part of his GDMT as well as for better BP control. On day of discharge he endorsed complete resolution of symptoms, endorsed that he was able to walk around without any issues, and did not experience any exertional chest pain or shortness of breath. Patient was hemodynamically stable. He will have follow-up with our office on March 12 and will have repeat blood work done in 1 week. Allergies lisinopril Cough Consults Consult to Physician - Ordered -- 03/01/25 13:04:00 EDT, EDIE ABDALLA MD, Routine, ESRD MWF, needs dialysis today Consult to Spiritual Care Team (Consult to Pastoral Care) - Ordered -- 03/01/25 12:12:25 EDT Imaging Results and Diagnostics NM Myocardial Spect Rest/Stress Result Date: March 02, 2025 Verified By: HAY FARRELL DO CLINICAL STATEMENT: IMPRESSION: 1. No evidence of infarct or ischemia. Apical thinning.2. Dilated cardiomyopathy, with LVEF of 36%. XR Chest 1 View Result Date: March 01, 2025 Verified By: ALBERTO BRYSON DO CLINICAL STATEMENT: IMPRESSION: 1. Mild pulmonary edema pattern.2. Status post TAVR procedure. Physical Exam Vitals and Measurements T: 36.8 C (Oral) TMIN: 36.4 C (Skin) TMAX: 36.8 C (Oral) HR: 67 (Monitored) RR: 18 BP: 130/70 SpO2: 93% WT: 66.1 kg Weight Dosing Weight: 66.1 kg (03/03/25) Dosing Weight: 74.7 kg (03/03/25) General Appearance: NAD EENT: MOIST MEMBRANES Neck: NO APPRECIABLE JVD Cardiac: RRR Lungs: CTAB Abdomen: NON TENDER TO PALPATION Extremities: NO BILATERAL EDEMA Neurological: AOX3 Psychiatric: NORMAL AFFECT Code Status Code Status - Ordered -- 03/01/25 12:31:00 EDT, Full Code, Constant Order Admission Date 03/01/2025 11:42:00 Discharge Date 03/03/2025 20:11:13 Medications New Prescription hydrALAZINE (hydrALAZINE 25 mg oral tablet)1 tab(s) by mouth three (3) times a day. Refills: 3. Changed fluticasone (Arnuity Ellipta 200 mcg/inh inhalation powder)1 puff(s) by inhalation every 24 hours. isosorbide mononitrate (isosorbide mononitrate 30 mg oral tablet, extended release)2 tab(s) by mouth once a day (in the morning). Refills: 3. Unchanged aspirin (aspirin 81 mg oral delayed release tablet)1 tab(s) by mouth every day for 90 Days. Refills: 4. atorvastatin (atorvastatin 40 mg oral tablet)1 tab(s) by mouth daily at bedtime for 90 Days. Refills: 4. calcium acetate (calcium acetate 667 mg oral capsule)2 cap by mouth three (3) times a day before meals. clopidogrel (Plavix 75 mg oral tablet)1 tab(s) by mouth once a day. Refills: 3. finasteride (finasteride 5 mg oral tablet)1 tab(s) by mouth every other day for 90 Days. Refills: 3. fluticasone nasal (fluticasone proprionate NASAL 50 mcg/ spray)1 spray(s) each nostril every day. guaiFENesin (Mucinex 600 mg oral tablet, extended release)1 tab(s) by mouth two (2) times a day. nitroGLYcerin (nitroglycerin 0.4 mg sublingual tablet)1 tab(s) under the tongue every 5 minutes as needed for chest pain. Refills: 1. pantoprazole (pantoprazole 40 mg oral enteric coated tablet)1 tab(s) by mouth two (2) times a day. Refills: 2. sevelamer (sevelamer hydrochloride 800 mg oral tablet)1 tab(s) by mouth three (3) times a day with meals. Follow Up Follow Up with Readmission Risk Score Additional Information: 11 Follow Up with JULIO LICEA When:Within 1-2 days Where:[address] [place] [address]- Business (1) Follow Up Appointments No qualifying data available. Follow Up Labs/Studies Discharge Labs Discharge Outpatient Labwork - Ordered -- CMP, Mag, new meds, follow-up within: 1 week, Results Notify to: JANN ALLEN MD, 03/03/25 14:47:00 EDT Discharge Studies No Follow-up Studies Discharge Diet Discharge Diet - Ordered -- Type of Diet: Regular, Sodium limit: Low, Fats limit: Low, 03/03/25 14:46:00 EDT Discharge Activity Discharge Activity - Ordered -- NO activity restrictions, 03/03/25 14:46:00 EDT Condition on Discharge Improved Discharge Disposition Home [1] Progress Note; MICHAEL STEIN MD 03/02/2025 17:45 EDT Digitally Signed by MICHAEL STEIN MD on 03/03/2025 08:11 PM Digitally Signed by LOLIS GUIDO MD [facility] 03-03-2025 Pastoral care Progress note Pastoral Care Note Entered On: 03/03/2025 17:16 EDT Performed On: 03/03/2025 17:16 EDT by Shawn Adam Pastoral Care Type of Pastoral Visit : Initial visit Spiritual Care Visit Initiated by : Consult/Referral Spiritual Care Reason for Visit : General Pastoral Care Referral From : Nurse Spiritual Care Intervention : Discharged Before Seen Pastoral Care Comments : Patient discharged before seen per RN. Attempt made to see him. Pastoral Care Visit Length : 5 minute(s) Shawn Adam - 03/03/2025 17:16 EDT Digitally Signed by Shawn Adam on 03/03/2025 05:16 PM [facility] 03-03-2025 Hospital Discharge instructions Patient Education 03/03/2025 14:52:19 Hypertension, Adult, Sywl-rh-Scyn Hypertension, Adult Hypertension is another name for high blood pressure. High blood pressure forces your heart to work harder to pump blood. This can cause problems over time. There are two numbers in a blood pressure reading. There is a top number (systolic) over a bottom number (diastolic). It is best to have a blood pressure that is below 120/80. Healthy choices can help lower your blood pressure, or you may need medicine to help lower it. What are the causes? The cause of this condition is not known. Some conditions may be related to high blood pressure. What increases the risk? Smoking. Having type 2 diabetes mellitus, high cholesterol, or both. Not getting enough exercise or physical activity. Being overweight. Having too much fat, sugar, calories, or salt (sodium) in your diet. Drinking too much alcohol. Having long-term (chronic) kidney disease. Having a family history of high blood pressure. Age. Risk increases with age. Race. You may be at higher risk if you are . Gender. Men are at higher risk than women before age 45. After age 65, women are at higher risk than men. Having obstructive sleep apnea. Stress. What are the signs or symptoms? High blood pressure may not cause symptoms. Very high blood pressure (hypertensive crisis) may cause: ?Headache. ?Feelings of worry or nervousness (anxiety). ?Shortness of breath. ?Nosebleed. ?A feeling of being sick to your stomach (nausea). ?Throwing up (vomiting). ?Changes in how you see. ?Very bad chest pain. ?Seizures. How is this treated? This condition is treated by making healthy lifestyle changes, such as: ?Eating healthy foods. ?Exercising more. ?Drinking less alcohol. Your health care provider may prescribe medicine if lifestyle changes are not enough to get your blood pressure under control, and if: ?Your top number is above 130. ?Your bottom number is above 80. Your personal target blood pressure may vary. Follow these instructions at home: Eating and drinking If told, follow the DASH eating plan. To follow this plan: ?Fill one half of your plate at each meal with fruits and vegetables. ?Fill one fourth of your plate at each meal with whole grains. Whole grains include whole-wheat pasta, brown rice, and whole-grain bread. ?Eat or drink low-fat dairy products, such as skim milk or low-fat yogurt. ?Fill one fourth of your plate at each meal with low-fat (lean) proteins. Low-fat proteins include fish, chicken without skin, eggs, beans, and tofu. ?Avoid fatty meat, cured and processed meat, or chicken with skin. ?Avoid pre-made or processed food. Eat less than 1,500 mg of salt each day. Do not drink alcohol if: ?Your doctor tells you not to drink. ?You are , may be , or are planning to become . If you drink alcohol: ?Limit how much you use to: ?0 1 drink a day for women. ?0 2 drinks a day for men. ?Be aware of how much alcohol is in your drink. In the [place] one drink equals one 12 oz bottle of beer (355 mL), one 5 oz glass of wine (148 mL), or one 1 oz glass of hard liquor (44 mL). Lifestyle Work with your doctor to stay at a healthy weight or to lose weight. Ask your doctor what the best weight is for you. Get at least 30 minutes of exercise most days of the week. This may include walking, swimming, or biking. Get at least 30 minutes of exercise that strengthens your muscles (resistance exercise) at least 3 days a week. This may include lifting weights or doing Pilates. Do not use any products that contain nicotine or tobacco, such as cigarettes, e-cigarettes, and chewing tobacco. If you need help quitting, ask your doctor. Check your blood pressure at home as told by your doctor. Keep all follow-up visits as told by your doctor. This is important. Medicines Take nblv-yod-jvdvvzl and prescription medicines only as told by your doctor. Follow directions carefully. Do not skip doses of blood pressure medicine. The medicine does not work as well if you skip doses. Skipping doses also puts you at risk for problems. Ask your doctor about side effects or reactions to medicines that you should watch for. Contact a doctor if you: Think you are having a reaction to the medicine you are taking. Have headaches that keep coming back (recurring). Feel dizzy. Have swelling in your ankles. Have trouble with your vision. Get help right away if you: Get a very bad headache. Start to feel mixed up (confused). Feel weak or numb. Feel faint. Have very bad pain in your: ?Chest. ?Belly (abdomen). Throw up more than once. Have trouble breathing. Summary Hypertension is another name for high blood pressure. High blood pressure forces your heart to work harder to pump blood. For most people, a normal blood pressure is less than 120/80. Making healthy choices can help lower blood pressure. If your blood pressure does not get lower with healthy choices, you may need to take medicine. This information is not intended to replace advice given to you by your health care provider. Make sure you discuss any questions you have with your health care provider. Document Released: 01/14/2009 Document Revised: 04/08/2019 Document Reviewed: 04/08/2019 [employer] Patient Education 2020 [employer] Follow Up Care 03/01/2025 07:29:58 With:Readmission Risk Score Address:Unknown When: Unknown Comments:11 With:JULIO LICEA Address: [address] [place] [address] [facility] (1) When:1-2 days [facility] 03-03-2025 Note Discharge Instructions Thank you for allowing [facility] to assist you with your healthcare needs. The following is important discharge information regarding your hospital visit. Your Care Team JULIO LICEA MD Your Diagnosis Gross hematuria What to do next Scheduled Follow-Up Appointments Appointment Type When With Where Contact Information StatusCV OV 03/12/2025 10:45 AM EDT OMARI ANDINO [facility] [place] CV Confirmed Echo - Echocardiogram Adult 01/13/2026 08:00 AM EDT [facility] [phone] Confirmed CV OV 01/20/2026 09:30 AM EDT MACHO DERAS [facility] [place] Confirmed Follow Up Appointments Follow Up with Readmission Risk Score Additional Information: 11 Follow Up with JULIO LICEA When:Within 1-2 days Where:[address] [facility] [place] [address] [facility] (1) The Following Activity and Diet Have Been Ordered for You Discharge Activity - Ordered -- NO activity restrictions, 03/03/25 14:46:00 EDT Discharge Diet - Ordered -- Type of Diet: Regular, Sodium limit: Low, Fats limit: Low, 03/03/25 14:46:00 EDT The Following Equipment Has Been Ordered for You No qualifying data available. The Following Treatments Have Been Ordered for You Discharge Labs Discharge Outpatient Labwork - Ordered -- CMP, Mag, new meds, follow-up within: 1 week, Results Notify to: JANN ALLEN MD, 03/03/25 14:47:00 EDT Discharge Radiology No qualifying data available. Other Therapies No qualifying data available. Post Acute Orders No qualifying data available. Someone Will Contact You Regarding These Home Health Referrals No home referrals have been ordered for you. No one will call you. Allergies lisinopril Cough Medications Please ask your primary doctor or pharmacist before taking any other medication not listed, including over the counter drugs, herbal medications, vitamins and or supplements as they may interact with your home medications. What How Much When Why Instructions Last Dose New hydrALAZINE (hydrALAZINE 25 mg oral tablet) 1 tab(s) by mouth Three (3) times a day Refills: 3 Pickup at [facility] Changed fluticasone (Arnuity Ellipta 200 mcg/ inh inhalation powder) 1 puff(s) by inhalation Every 24 hours Changed isosorbide mononitrate (isosorbide mononitrate 30 mg oral tablet, extended release) 2 tab(s) by mouth Once a day (in the morning) Pickup at [facility] Unchanged aspirin (aspirin 81 mg oral delayed release tablet) 1 tab(s) by mouth Every day Duration: 90 Days Pickup at [facility] Unchanged atorvastatin (atorvastatin 40 mg oral tablet) 1 tab(s) by mouth Daily at bedtime Duration: 90 Days Pickup at [facility] Unchanged calcium acetate (calcium acetate 667 mg oral capsule) 2 cap by mouth Three (3) times a day before meals Unchanged clopidogrel (Plavix 75 mg oral tablet) 1 tab(s) by mouth Once a day Pickup at [facility] Unchanged finasteride (finasteride 5 mg oral tablet) 1 tab(s) by mouth Every other day Gross hematuria Duration: 90 Days Unchanged fluticasone nasal (fluticasone proprionate NASAL 50 mcg/ spray) 1 spray(s) each nostril Every day Unchanged guaiFENesin (Mucinex 600 mg oral tablet, extended release) 1 tab(s) by mouth Two (2) times a day Unchanged nitroGLYcerin (nitroglycerin 0.4 mg sublingual tablet) 1 tab(s) under the tongue Every 5 minutes as needed for for chest pain Unchanged pantoprazole (pantoprazole 40 mg oral enteric coated tablet) 1 tab(s) by mouth Two (2) times a day Unchanged sevelamer (sevelamer hydrochloride 800 mg oral tablet) 1 tab(s) by mouth Three (3) times a day with meals Pharmacy Information [facility]: [address] [place] [address] [phone] Please take this list to your next doctor s visit. Bring all medications you take, including over the counter medications, herbals and other supplements with you to your doctor s visit. Patients and families are reminded to discard old lists and to update any records with all medication providers or retail pharmacies. Medication Leaflets isosorbide mononitrate (EYE regan SOR bide MON oh CHRIS trate) What is the most important information I should know about isosorbide mononitrate? You should not take erectile dysfunction medicine (Viagra, Cialis, Levitra, Stendra, Staxyn, sildenafil, avanafil, tadalafil, vardenafil) while you are taking isosorbide mononitrate. Taking these medicine together can cause a sudden and serious decrease in blood pressure. Seek emergency medical attention if you have early symptoms of a heart attack (chest pain or pressure, pain spreading to your jaw or shoulder, sweating, general ill feeling). What is isosorbide mononitrate? Isosorbide mononitrate is a nitrate that dilates (widens) blood vessels, making it easier for blood to flow through them and easier for the heart to pump. Isosorbide mononitrate is used to prevent angina attacks (chest pain). Isosorbide mononitrate will not treat an angina attack that has already begun. Isosorbide mononitrate may also be used for purposes not listed in this medication guide. What should I discuss with my healthcare provider before taking isosorbide mononitrate? You should not use isosorbide mononitrate if: you are allergic to isosorbide mononitrate, isosorbide dinitrate, or nitroglycerin; or you have early signs of a heart attack (chest pain or pressure, pain spreading to your jaw or shoulder, nausea, sweating). You should not take erectile dysfunction medicine (Viagra, Cialis, Levitra, Stendra, Staxyn, sildenafil, avanafil, tadalafil, vardenafil) while you are taking isosorbide mononitrate. Taking these medicines together can cause a sudden and serious decrease in blood pressure. To make sure isosorbide mononitrate is safe for you, tell your doctor if you have: congestive heart failure; kidney disease; or low blood pressure. It is not known whether this medicine will harm an unborn baby. Tell your doctor if you are or plan to become . It is not known whether isosorbide mononitrate passes into breast milk or if it could affect the nursing baby. Tell your doctor if you are breast-feeding. How should I take isosorbide mononitrate? Follow all directions on your prescription label. Your doctor may occasionally change your dose. Do not take this medicine in larger or smaller amounts or for longer than recommended. If you use too much isosorbide mononitrate, it might stop working as well in controlling your condition. Try to rest or stay seated when you take this medicine (may cause dizziness or fainting). Do not crush, chew, or break an extended-release tablet. Swallow it whole. Not all brands and forms of isosorbide mononitrate are taken the same number of times per day. You may need to take the medicine only once daily, in the morning after getting out of bed. You may also need a second dose later in the day. Follow your doctor's dosing instructions very carefully. If your doctor changes your brand, strength, or type of isosorbide mononitrate, your dosage needs may change. Ask your pharmacist if you have any questions about the new kind of isosorbide mononitrate you receive at the pharmacy. You may have very low blood pressure while taking this medicine. Call your doctor if you are sick with vomiting or diarrhea, or if you are sweating more than usual. Prolonged illness can lead to a serious electrolyte imbalance, making it dangerous for you to use isosorbide mononitrate. Use isosorbide mononitrate regularly to prevent an angina attack. Get your prescription refilled before you run out of medicine completely. You should not stop using isosorbide mononitrate suddenly or you could have a severe attack of angina. Keep this medicine on hand at all times. Get your prescription refilled before you run out of medicine completely. Store at room temperature away from moisture, heat, and light. Keep the bottle tightly closed when not in use. What happens if I miss a dose? Take the missed dose as soon as you remember. Skip the missed dose if it is almost time for your next scheduled dose. Do not take extra medicine to make up the missed dose. What happens if I overdose? Seek emergency medical attention or call the Poison Help line at . An overdose of isosorbide mononitrate can be fatal. Overdose symptoms may include a severe throbbing headache, fever, confusion, severe dizziness, fast or pounding heartbeats, vision problems, nausea, vomiting, stomach pain, bloody diarrhea, trouble breathing, sweating, cold or clammy skin, fainting, and seizure (convulsions). What should I avoid while taking isosorbide mononitrate? This medicine may impair your thinking or reactions. Be careful if you drive or do anything that requires you to be alert. Avoid getting up too fast from a sitting or lying position, or you may feel dizzy. Get up slowly and steady yourself to prevent a fall. Avoid drinking alcohol. Alcohol may increase certain side effects of isosorbide mononitrate (dizziness, drowsiness, feeling light-headed, or fainting). What are the possible side effects of isosorbide mononitrate? Get emergency medical help if you have signs of an allergic reaction: hives; difficulty breathing; swelling of your face, lips, tongue, or throat. Call your doctor at once if you have: a light-headed feeling, like you might pass out; worsening angina pain; fast or slow heart rate; or pounding heartbeats or fluttering in your chest. Isosorbide mononitrate can cause severe headaches. These headaches may gradually become less severe as you continue to use nitroglycerin. Do not stop taking this medicine to avoid headaches. Ask your doctor before using any headache pain medication. Common side effects may include: headache; or flushing (warmth, redness, or tingly feeling). This is not a complete list of side effects and others may occur. Call your doctor for medical advice about side effects. You may report side effects to FDA at 4-991-EZZ-5802. What other drugs will affect isosorbide mononitrate? Taking isosorbide mononitrate with certain other medicines can cause severely low blood pressure. This includes medicine to treat erectile dysfunction or pulmonary arterial hypertension. Serious, life-threatening side effects may occur. Tell your doctor about all your current medicines and any you start or stop using, especially: avanafil (Stendra); a diuretic or 'water pill'; nitroglycerin; riociguat (Adempas); sildenafil (Viagra, Revatio); tadalafil (Cialis, Adcirca); or vardenafil (Levitra, Staxyn). This list is not complete. Other drugs may interact with isosorbide mononitrate, including prescription and jyls-qmc-iyhvfxr medicines, vitamins, and herbal products. Not all possible interactions are listed in this medication guide. Where can I get more information? Your pharmacist can provide more information about isosorbide mononitrate. Remember, keep this and all other medicines out of the reach of children, never share your medicines with others, and use this medication only for the indication prescribed. Every effort has been made to ensure that the information provided by [facility]. ('[employer]') is accurate, up-to-date, and complete, but no guarantee is made to that effect. Drug information contained herein may be time sensitive. [employer] information has been compiled for use by healthcare practitioners and consumers in the [place] and therefore [employer] does not warrant that uses outside of the [place] are appropriate, unless specifically indicated otherwise. [employer] drug information does not endorse drugs, diagnose patients or recommend therapy. [employer] drug information is an informational resource designed to assist licensed healthcare practitioners in caring for their patients and/or to serve consumers viewing this service as a supplement to, and not a substitute for, the expertise, skill, knowledge and judgment of healthcare practitioners. The absence of a warning for a given drug or drug combination in no way should be construed to indicate that the drug or drug combination is safe, effective or appropriate for any given patient. [employer] does not assume any responsibility for any aspect of healthcare administered with the aid of information [employer] provides. The information contained herein is not intended to cover all possible uses, directions, precautions, warnings, drug interactions, allergic reactions, or adverse effects. If you have questions about the drugs you are taking, check with your doctor, nurse or pharmacist. Copyright 6516-2296 [facility]. Version: 15.. Revision Date: 03/15/2023. hydralazine (ruth chin) What is the most important information I should know about hydralazine? You should not use this medicine if you have coronary artery disease, or rheumatic heart disease affecting the mitral valve. What is hydralazine? Hydralazine is a vasodilator that works by relaxing the muscles in your blood vessels to help them dilate (widen). This lowers blood pressure and allows blood to flow more easily through your veins and arteries. Hydralazine is used to treat high blood pressure (hypertension). Hydralazine may also be used for purposes not listed in this medication guide. What should I discuss with my healthcare provider before taking hydralazine? You should not use hydralazine if you are allergic to it, or if you have: coronary artery disease; or rheumatic heart disease affecting the mitral valve. To make sure hydralazine is safe for you, tell your doctor if you have ever had: kidney disease; systemic lupus erythematosus; angina (chest pain); or a stroke. It is not known whether this medicine will harm an unborn baby. Tell your doctor if you are or plan to become . Hydralazine can pass into breast milk, but effects on the nursing baby are not known. Tell your doctor if you are breast-feeding. Hydralazine is not approved for use by anyone younger than 18 years old. How should I take hydralazine? Follow all directions on your prescription label. Do not take this medicine in larger or smaller amounts or for longer than recommended. Your blood pressure will need to be checked often. You may also need frequent blood tests. Keep using this medicine as directed, even if you feel well. High blood pressure often has no symptoms. You may need to use blood pressure medicine for the rest of your life. Store at room temperature away from moisture and heat. What happens if I miss a dose? Take the missed dose as soon as you remember. Skip the missed dose if it is almost time for your next scheduled dose. Do not take extra medicine to make up the missed dose. What happens if I overdose? Seek emergency medical attention or call the Poison Help line at . Overdose symptoms may include rapid heartbeats, warmth or tingling under your skin, chest pain, or fainting. What should I avoid while taking hydralazine? Avoid getting up too fast from a sitting or lying position, or you may feel dizzy. Get up slowly and steady yourself to prevent a fall. What are the possible side effects of hydralazine? Get emergency medical help if you have signs of an allergic reaction: hives; difficult breathing; swelling of your face, lips, tongue, or throat. Call your doctor at once if you have: chest pain or pressure, pain spreading to your jaw or shoulder; fast or pounding heartbeats; a light-headed feeling, like you might pass out; numbness, tingling, or burning pain in your hands or feet; painful or difficult urination; little or no urination; or lupus-like syndrome--joint pain or swelling with fever, swollen glands, muscle aches, chest pain, vomiting, unusual thoughts or behavior, and patchy skin color. Common side effects may include: chest pain, fast heart rate; headache; or nausea, vomiting, diarrhea, loss of appetite. This is not a complete list of side effects and others may occur. Call your doctor for medical advice about side effects. You may report side effects to FDA at 0-145-OOA-5399. What other drugs will affect hydralazine? Tell your doctor about all your current medicines and any you start or stop using, especially: diazoxide (an injectable blood pressure medication); or an MAO inhibitor--isocarboxazid, linezolid, methylene blue injection, phenelzine, rasagiline, selegiline, tranylcypromine, and others. This list is not complete. Other drugs may interact with hydralazine, including prescription and vxrp-ykv-jxqecvx medicines, vitamins, and herbal products. Not all possible interactions are listed in this medication guide. Where can I get more information? Your pharmacist can provide more information about hydralazine. Remember, keep this and all other medicines out of the reach of children, never share your medicines with others, and use this medication only for the indication prescribed. Every effort has been made to ensure that the information provided by [facility]. ('[employer]') is accurate, up-to-date, and complete, but no guarantee is made to that effect. Drug information contained herein may be time sensitive. [employer] information has been compiled for use by healthcare practitioners and consumers in the [place] and therefore [employer] does not warrant that uses outside of the [place] are appropriate, unless specifically indicated otherwise. [employer]'s drug information does not endorse drugs, diagnose patients or recommend therapy. [employer] drug information is an informational resource designed to assist licensed healthcare practitioners in caring for their patients and/or to serve consumers viewing this service as a supplement to, and not a substitute for, the expertise, skill, knowledge and judgment of healthcare practitioners. The absence of a warning for a given drug or drug combination in no way should be construed to indicate that the drug or drug combination is safe, effective or appropriate for any given patient. [facility] does not assume any responsibility for any aspect of healthcare administered with the aid of information [facility] provides. The information contained herein is not intended to cover all possible uses, directions, precautions, warnings, drug interactions, allergic reactions, or adverse effects. If you have questions about the drugs you are taking, check with your doctor, nurse or pharmacist. Copyright 7067-5994 [facility] [employer]. Version: 7.01. Revision Date: 03/15/2023. Education Materials Hypertension, Adult Hypertension is another name for high blood pressure. High blood pressure forces your heart to work harder to pump blood. This can cause problems over time. There are two numbers in a blood pressure reading. There is a top number (systolic) over a bottom number (diastolic). It is best to have a blood pressure that is below 120/80. Healthy choices can help lower your blood pressure, or you may need medicine to help lower it. What are the causes? The cause of this condition is not known. Some conditions may be related to high blood pressure. What increases the risk? Smoking. Having type 2 diabetes mellitus, high cholesterol, or both. Not getting enough exercise or physical activity. Being overweight. Having too much fat, sugar, calories, or salt (sodium) in your diet. Drinking too much alcohol. Having long-term (chronic) kidney disease. Having a family history of high blood pressure. Age. Risk increases with age. Race. You may be at higher risk if you are . Gender. Men are at higher risk than women before age 45. After age 65, women are at higher risk than men. Having obstructive sleep apnea. Stress. What are the signs or symptoms? High blood pressure may not cause symptoms. Very high blood pressure (hypertensive crisis) may cause: ? Headache. ? Feelings of worry or nervousness (anxiety). ? Shortness of breath. ? Nosebleed. ? A feeling of being sick to your stomach (nausea). ? Throwing up (vomiting). ? Changes in how you see. ? Very bad chest pain. ? Seizures. How is this treated? This condition is treated by making healthy lifestyle changes, such as: ? Eating healthy foods. ? Exercising more. ? Drinking less alcohol. Your health care provider may prescribe medicine if lifestyle changes are not enough to get your blood pressure under control, and if: ? Your top number is above 130. ? Your bottom number is above 80. Your personal target blood pressure may vary. Follow these instructions at home: Eating and drinking If told, follow the DASH eating plan. To follow this plan: ? Fill one half of your plate at each meal with fruits and vegetables. ? Fill one fourth of your plate at each meal with whole grains. Whole grains include whole-wheat pasta, brown rice, and whole-grain bread. ? Eat or drink low-fat dairy products, such as skim milk or low-fat yogurt. ? Fill one fourth of your plate at each meal with low-fat (lean) proteins. Low-fat proteins include fish, chicken without skin, eggs, beans, and tofu. ? Avoid fatty meat, cured and processed meat, or chicken with skin. ? Avoid pre-made or processed food. Eat less than 1,500 mg of salt each day. Do not drink alcohol if: ? Your doctor tells you not to drink. ? You are , may be , or are planning to become . If you drink alcohol: ? Limit how much you use to: ? 0 1 drink a day for women. ? 0 2 drinks a day for men. ? Be aware of how much alcohol is in your drink. In the [place] one drink equals one 12 oz bottle of beer (355 mL), one 5 oz glass of wine (148 mL), or one 1 oz glass of hard liquor (44 mL). Lifestyle Work with your doctor to stay at a healthy weight or to lose weight. Ask your doctor what the best weight is for you. Get at least 30 minutes of exercise most days of the week. This may include walking, swimming, or biking. Get at least 30 minutes of exercise that strengthens your muscles (resistance exercise) at least 3 days a week. This may include lifting weights or doing Pilates. Do not use any products that contain nicotine or tobacco, such as cigarettes, e-cigarettes, and chewing tobacco. If you need help quitting, ask your doctor. Check your blood pressure at home as told by your doctor. Keep all follow-up visits as told by your doctor. This is important. Medicines Take cokt-zjq-devqbxx and prescription medicines only as told by your doctor. Follow directions carefully. Do not skip doses of blood pressure medicine. The medicine does not work as well if you skip doses. Skipping doses also puts you at risk for problems. Ask your doctor about side effects or reactions to medicines that you should watch for. Contact a doctor if you: Think you are having a reaction to the medicine you are taking. Have headaches that keep coming back (recurring). Feel dizzy. Have swelling in your ankles. Have trouble with your vision. Get help right away if you: Get a very bad headache. Start to feel mixed up (confused). Feel weak or numb. Feel faint. Have very bad pain in your: ? Chest. ? Belly (abdomen). Throw up more than once. Have trouble breathing. Summary Hypertension is another name for high blood pressure. High blood pressure forces your heart to work harder to pump blood. For most people, a normal blood pressure is less than 120/80. Making healthy choices can help lower blood pressure. If your blood pressure does not get lower with healthy choices, you may need to take medicine. This information is not intended to replace advice given to you by your health care provider. Make sure you discuss any questions you have with your health care provider. Document Released: 01/14/2009 Document Revised: 04/08/2019 Document Reviewed: 04/08/2019 [employer] Patient Education 2020 [employer]. Additional Information VACCINATE! IT SAVES LIVES! Members of the community who have not yet received the COVID-19 vaccine and would like to receive it can visit one of [facility] vaccine clinics. There are many vaccine clinic locations within the [facility]. For locations and available times, please visit https://gettheshot.coronavirus.o hio.gov/. It is important to note that some COVID mobile vaccine clinics are held outdoors and may be canceled in rainy or stormy conditions. To learn more about pediatric vaccinations (ages 5-11), we invite you to visit the [facility] webpage. [email or web address].[email or web address].org/p ages/0073-Nwozt-Hcabbnxtbpu-Freq updznf-Qoaid-Sciwpcubh.[email or web address] To learn more about the COVID-19 vaccine, we invite you to visit the CDC website for a list of frequently asked questions.https://www.cdc.gov/co ronavirus/2019-ncov/vaccines/faq .html [facility] Patient Portal Access Instructions: Stay connected with your healthcare team and access your personal medical information anytime with the [facility] Patient Portal. Please follow the directions below to create your [facility] account: 1.Access the email account you provided upon registration to the hospital/physician office.2.Look for an invitation email from [facility].3.Open the email and access the invitation link: Accept Invitation to [facility].4.Fill in the required wilkinson to create your account. To access your account, visit [employer] | [email or web address]. Click the blue button labeled Access Patient Portal and then log in with the username and password that you created in the steps above. You will be able to view your test results, lab results, a summary of your visits, upcoming appointments and more. There is also a convenient messaging option where you can send secure messages to your provider. In addition, you will have the ability to download any documents or summaries to your computer and/or send the information securely to a physician. Remember that your healthcare information is confidential, so carefully consider who you will allow to register on the [facility] Patient Portal for access to your information. You can also access the [facility] Patient Portal on the [employer] samanta. Simply click on Patient Portal and then log into your account. If you would like to receive a full copy of your medical records, please contact the [facility] Medical Records Department by calling [phone], Saturday through Saturday between 8 a.m. and 4:30 p.m. HOW TO SAFELY DISPOSE OF PRESCRIPTION MEDICATIONS Please use one of the following methods to safely dispose of your unused medications. 1.Use a drug disposal kit: the drug disposal pouch allows you to safely discard your old and unused drugs. Ask your nurse to give you one when you are discharged.2.Visit a local take-back location: Many local pharmacies and police departments have programs that collect old and unwanted prescription drugs. Call your local pharmacy or go to http://bit.InSpa/5H4Fh4l to find one close to you.3.Make use of household items: Use cat litter or old coffee grounds to dispose medications if other options are not available. Mix your drugs with these household products, seal them in an airtight container and throw it into the garbage. Call [facility]: [phone] to be sure your drugs can be disposed of in this way. Some medicines may require a different approach.4.Never flush your medications down the toilet. IF YOU HAVE BEEN PRESCRIBED AN OPIOID FOR PAIN If you have been prescribed an opioid (such as hydrocodone, oxycodone or morphine), it is critical to understand the possible side effects and risks of opioid pain medications. Even when taken as directed, opioids can have several side effects including: Tolerance, meaning you might need to take more of a medication for the same pain relief. Nausea, vomiting and/or constipation. Sleepiness, dizziness, dry mouth, confusion, depression or itching. Physical dependence, meaning you have withdrawal symptoms when a medication is stopped, can develop within a few days. KNOW YOUR RESPONSIBILITIES It is important to know exactly how much and how often to take the opioid pain medications you are prescribed. Never take opioids in higher amounts or more often than prescribed. Do not combine opioids with alcohol or other drugs that cause drowsiness, such as benzodiazepines, also known as benzos, including diazepam and alprazolam, muscle relaxants or sleep aids. Never sell or share prescription opioids. This is illegal. Store opioids in a secure place and out of reach of others (including children, family, friends and visitors). The last page of this document has been signed and retained as a CHART COPY. Signatures Patient Education Materials Hypertension, Adult, Qmpj-cf-Opmu Medication Leaflets isosorbide mononitrate, hydralazine My discharge plan and instructions have been reviewed and explained to me and IROGER CARL M understand my current condition and have read and understand these discharge instructions. I have received a written copy of the plan/instructions. If I have questions, I am aware that I should contact my doctor. 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 Subjective Patient is seen on dialysis. He is feeling okay today. He denies any chest pain or shortness of breath today. Had dialysis yesterday, 2 L fluid was removed. Objective Vitals and Measurements T: 36.5 C (Skin) TMIN: 36.2 C (Skin) TMAX: 36.8 C (Skin) HR: 72 (Monitored) RR: 18 BP: 134/51 SpO2: 94% WT: 74.7 kg Physical Exam HEENT: PEERLA Respiratory: Bilateral air entry is present, decreased at bases Cardiovascular: S1-S2 present, no rub, murmur present Abdomen: Soft, NT, BS present Genitourinary: No bladder fullness appreciated Extremities: Bilateral trace pedal edema present, PP present, right arm AV fistula present Medications Medications (23) Active Scheduled: (9) aspirin 81 mg Chewable 81 mg 1 tab(s), Oral, qDayM atorvastatin 40 mg tablet 40 mg 1 tab(s), Oral, qDay budesonide 0.25 mg/2 mL Susp UD 0.25 mg 2 mL, Inhalation, BIDRT clopidogrel 75 mg Tablet 75 mg 1 tab(s), Oral, qDay finasteride 5 mg tablet 5 mg 1 tab(s), Oral, Every other day fluticasone nasal 0.05 mg/inh Pierre 50 mcg 1 spray(s), Nostril, each, Daily hydralazine 25 mg Tablet 25 mg 1 tab(s), Oral, TID isosorbide mononitrate 30 mg ER tablet 60 mg 2 tab(s), Oral, qAM sevelamer carbonate 800 mg tablet 800 mg 1 tab(s), Oral, TIDM Continuous: (0) PRN: (14) acetaminophen 325 mg Tablet 650 mg 2 tab(s), Oral, q4h acetaminophen-HYDROcodone 325-10 mg tablet 1 tab(s), Oral, q4h acetaminophen-HYDROcodone 325-5 mg tablet 1 tab(s), Oral, q4h albuterol - ipratropium 2.5 mg-0.5 mg/3 mL Inhal Ada UD 3 mL, Inhalation, q4hRT dextrose 50% Solution Disp syringe 50 mL 25 gram(s) 50 mL, IV Push, AsDirected magnesium sulfate 4 gram(s)/100mL PMX 4 g 100 mL, IV Piggyback, AsDirected magnesium sulfate 50% (500mg/mL) 6 g 12 mL, IV Piggyback, AsDirected magnesium sulfate PMX 2 g 50 mL, IV Piggyback, AsDirected melatonin 3 mg tablet 6 mg 2 tab(s), Oral, qHS ondansetron 2 mg/ 1 mL 2 mL INJ 4 mg 2 mL, IV Push, q4h potassium chloride (PMX) 20 mEq/100 mL 20 mEq 100 mL, IV Piggyback, AsDirected potassium chloride 20 mEq ER tablet 20 mEq 1 tab(s), Oral, AsDirected potassium chloride 20 mEq ER tablet 40 mEq 2 tab(s), Oral, AsDirected potassium chloride 20 mEq ER tablet 40 mEq 2 tab(s), Oral, AsDirected Lab Results 03/03 06:37 WBC: 5.3 Hgb: 11.0 L Hct: 33.4 L Platelet: 128 L Neutrophil %: 58.1 Glucose Level: 92 Sodium Level: 139 Potassium Level: 4.3 BUN: 32.0 H Creatinine Lvl (s): 6.11 H CO2: 27 Calcium: 9.4 Magnesium: 2.1 03/02 03:26 WBC: 4.9 Hgb: 10.7 L Hct: 32.9 L Platelet: 120 L Neutrophil %: 59.5 Glucose Level: 89 Sodium Level: 141 Potassium Level: 4.7 BUN: 39.0 H Creatinine Lvl (s): 6.48 H Assessment/Plan ESRD on HD on MWF: Receiving dialysis now Volume overload: Significant improvement with dialysis/ultrafiltration Unstable angina: Stress test negative CHF with moderately reduced LVEF: Fluid removal with dialysis as tolerated Anemia due to ESRD: Retacrit with dialysis 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 Dialysis today. Fluid removal with dialysis as tolerated. BP is acceptable. Okay to discharge the patient from renal standpoint after today's dialysis. Discussed with patient. Will follow. Digitally Signed by ROB MON MD on 03/03/2025 09:54 AM [facility] 03-02-2025 Cardiology Progress note Date of Service 03/02/2025 17:45:45 Subjective Feeling markedly improved after dialysis. No longer experiencing any chest pain. Objective Vitals and Measurements T: 36.9 C (Oral) TMIN: 36.2 C (Skin) TMAX: 36.9 C (Oral) HR: 87 (Monitored) RR: 18 BP: 135/62 SpO2: 95% WT: 36.8 kg Intake and Output 7AM Yesterday to 7AM Today Intake and Output (Last 24 hours) Intake Administration Information 90.16 Oral Intake 120.00 Output Urine Voided 140.00 Hemodialysis 4000.00 Stool Count 0.00 Urine Count 1.00 Total Summary Total Intake 210.16 Total Output 4140.00 Fluid Balance -3929.84 Physical Exam General Appearance: NAD EENT: MOIST MEMBRANES Neck: Mild JVD Cardiac: RRR Lungs: bibasilar crackles Abdomen: NON TENDER TO PALPATION Extremities: NO BILATERAL EDEMA Neurological: AOX3 Psychiatric: NORMAL AFFECT Weight Dosing Weight: 36.8 kg (03/02/25) Dosing Weight: 76.6 kg (03/02/25) Medications Medications (23) Active Scheduled: (9) aspirin 81 mg Chewable 81 mg 1 tab(s), Oral, qDayM atorvastatin 40 mg tablet 40 mg 1 tab(s), Oral, qDay budesonide 0.25 mg/2 mL Susp UD 0.25 mg 2 mL, Inhalation, BIDRT clopidogrel 75 mg Tablet 75 mg 1 tab(s), Oral, qDay finasteride 5 mg tablet 5 mg 1 tab(s), Oral, Every other day fluticasone nasal 0.05 mg/inh Pierre 50 mcg 1 spray(s), Nostril, each, Daily hydralazine 25 mg Tablet 25 mg 1 tab(s), Oral, TID isosorbide mononitrate 30 mg ER tablet 60 mg 2 tab(s), Oral, qAM sevelamer carbonate 800 mg tablet 800 mg 1 tab(s), Oral, TIDM Continuous: (0) PRN: (14) acetaminophen 325 mg Tablet 650 mg 2 tab(s), Oral, q4h acetaminophen-HYDROcodone 325-10 mg tablet 1 tab(s), Oral, q4h acetaminophen-HYDROcodone 325-5 mg tablet 1 tab(s), Oral, q4h albuterol - ipratropium 2.5 mg-0.5 mg/3 mL Inhal Ada UD 3 mL, Inhalation, q4hRT dextrose 50% Solution Disp syringe 50 mL 25 gram(s) 50 mL, IV Push, AsDirected magnesium sulfate 4 gram(s)/100mL PMX 4 g 100 mL, IV Piggyback, AsDirected magnesium sulfate 50% (500mg/mL) 6 g 12 mL, IV Piggyback, AsDirected magnesium sulfate PMX 2 g 50 mL, IV Piggyback, AsDirected melatonin 3 mg tablet 6 mg 2 tab(s), Oral, qHS ondansetron 2 mg/ 1 mL 2 mL INJ 4 mg 2 mL, IV Push, q4h potassium chloride (PMX) 20 mEq/100 mL 20 mEq 100 mL, IV Piggyback, AsDirected potassium chloride 20 mEq ER tablet 20 mEq 1 tab(s), Oral, AsDirected potassium chloride 20 mEq ER tablet 40 mEq 2 tab(s), Oral, AsDirected potassium chloride 20 mEq ER tablet 40 mEq 2 tab(s), Oral, AsDirected Lab Results 03/02 03:26 WBC: 4.9 Hgb: 10.7 L Hct: 32.9 L Platelet: 120 L Neutrophil %: 59.5 Glucose Level: 89 Sodium Level: 141 Potassium Level: 4.7 BUN: 39.0 H Creatinine Lvl (s): 6.48 H 03/01 13:17 WBC: 5.6 Hgb: 10.9 L Hct: 33.2 L Platelet: 129 L Neutrophil %: 68.9 Protime: 10.8 PT International Ratio: 0.9 Glucose Level: 102 Sodium Level: 140 Potassium Level: 5.6 H BUN: 60.0 H Creatinine Lvl (s): 8.22 H Imaging Results and Diagnostics NM Myocardial Spect Rest/Stress Result Date: March 02, 2025 Verified By: HAY FARRELL DO CLINICAL STATEMENT: IMPRESSION: 1. No evidence of infarct or ischemia. Apical thinning.2. Dilated cardiomyopathy, with LVEF of 36%. XR Chest 1 View Result Date: March 01, 2025 Verified By: ALBERTO BRYSON DO CLINICAL STATEMENT: IMPRESSION: 1. Mild pulmonary edema pattern.2. Status post TAVR procedure. Summary: 1. Left ventricle: The cavity size is increased. Wall thickness is severely increased. Systolic function is moderately to severely reduced. The estimated ejection fraction is 30-35%. Grade I diastolic dysfunction. 2. Aortic valve: A bioprosthetic valve is present. There is no significant regurgitation. There is mild paravalvular regurgitation. 3. Mitral valve: The annulus is mildly calcified. The leaflets are moderately thickened. There is moderate to severe eccentric regurgitation. Eccentricity can lead to underestimation of MR severity. 4. Left atrium: The atrium is severely dilated. 5. Right ventricle: The RV systolic pressure by Doppler is 14 mm Hg. 6. Right atrium: The estimated right atrial pressure is 3 mm Hg. [1] EKG EKG - Completed -- 03/01/25 11:49:00 EDT EKG - Completed -- 03/01/25 15:29:00 EDT Assessment/Plan Orders: hydrALAZINE, 25 mg= 1 tab(s), Oral, TID Unstable angina, resolved Elevated troponin, likely type II demand ischemia Severe aortic stenosis status post recent TAVR Coronary artery disease status post PCI to mid RCA 10/2024, proximal LCx 80% drug-coated balloon angioplasty, prior PCI in April 2024 First-degree AV block with known prolonged DC interval, typically around 400 ms Chronic HFpEF, now with reduced ejection fraction. Right bundle branch block CKD stage V on dialysis Saturday 84-year-old gentleman with with strong cardiac history presented to the emergency room with concerns of sudden chest pressure with radiation to his jaw and teeth. Troponin only mildly elevated in the 200s, initially 261 up trended to 270s, now downtrending in the 190s. Elevated proBNP. Patient is at high risk for in-stent restenosis. Chest pain did resolve once patient received dialysis and pressures were better controlled. He is now chest pain-free. However echocardiogram is concerning for continued drop in EF to 35% with moderate to severe mitral regurgitation, compared to EF in January of this year which was 40%. Mitral regurgitation was noted to be mild to moderate at that time. Nuclear stress test not demonstrating any inducible ischemia. As patient has improved from dialysis and better BP control, more inclined to say that his symptoms were from hypertension and pulmonary edema. Will monitor 1 more night and have patient walk around. If no longer experiencing any chest pain and BP is better controlled, possible discharge tomorrow with outpatient workup. If chest pain reoccurs, will reassess in [place] Dresser given his high risk of in-stent restenosis. Continue Imdur to 60 mg Will add on hydralazine 25 mg 3 times daily Continue aspirin Continue Plavix Continue Lipitor Consult nephrology for dialysis and volume management [1] Echocardiogram, Adult - CV; Gwendolyn Kaplan 03/01/2025 19:32 EDT Digitally Signed by MICHAEL STEIN MD on 03/02/2025 05:46 PM Digitally Signed by DAVIDE STARKS MD [facility] 03-02-2025 History and physical note Date of Service 03/01/2025 14:55:42 History of Present Illness 84-year-old gentleman with known history of severe aortic stenosis, coronary artery disease s/p PCI (10/2024- mid RCA 80%-stented, prox LCX 80% drug coated balloon angioplasty, prior PCI 04/2024), chronic HFpEF, RBBB, 1st degree AV block, hypertension, hyperlipidemia, chronic anemia, and ESRD on dialysis M/W/F who presented to [place] emergency for concerns of chest pressure. Pressure and pain started around 2 AM with radiation to his jaw and neck, was persistent. Went to the emergency room, where workup was significant for a prolonged DC interval around 400 ms (which is known), elevated blood pressures, elevated troponins initially in the 260s then up trended to 270s. Chest x-ray was concerning for possible bilateral pneumonia, patient was given azithromycin and ceftriaxone. Was transferred to CCU for further evaluation. Patient denies having chest pain after his TAVR procedure and had been doing fairly well after that. Pressure was sudden. Review of Systems Per HPI Physical Exam Vitals and Measurements T: 36.6 C (Oral) HR: 71 (Monitored) RR: 17 BP: 144/66 SpO2: 97% HT: 170.2 cm WT: 80.5 kg BMI: 27.79 Weight Dosing Weight: 80.5 kg (03/01/25) Lab Results 03/01 13:17 WBC: 5.6 Hgb: 10.9 L Hct: 33.2 L Platelet: 129 L Neutrophil %: 68.9 Protime: 10.8 PT International Ratio: 0.9 Glucose Level: 102 Sodium Level: 140 Potassium Level: 5.6 H BUN: 60.0 H Creatinine Lvl (s): 8.22 H Imaging Results and Diagnostics Echocardiogram 01/26/2025 Summary: 1. Left ventricle: The cavity size is increased. Wall thickness is increased. Systolic function is moderately reduced. The estimated ejection fraction is 40%. There is mild diffuse hypokinesis. Diastolic dysfunction is present. 2. Ventricular septum: Thickness is mildly increased. 3. Aortic valve: A bioprosthetic valve is present. There is no stenosis. There is mild paravalvular regurgitation. Mean gradient 10 mmHg 4. Mitral valve: There is mild to moderate regurgitation, directed eccentrically. 5. Left atrium: The atrium is severely dilated. 6. Right ventricle: The cavity size is mildly increased. Systolic function is reduced. The RV systolic pressure by Doppler is 43 mm Hg. 7. Right atrium: The atrium is dilated. The estimated right atrial pressure is 3 mm Hg Assessment/Plan Unstable angina Elevated troponin, NSTEMI versus type II demand ischemia Severe aortic stenosis status post recent TAVR Coronary artery disease status post PCI to mid RCA 10/2024, proximal LCx 80% drug-coated balloon angioplasty, prior PCI in April 2024 First-degree AV block with known prolonged DC interval, typically around 400 ms Chronic HFpEF Right bundle branch block CKD stage V on dialysis Saturday 84-year-old gentleman with with strong cardiac history presented to the emergency room with concerns of sudden chest pressure with radiation to his jaw and teeth. Troponin only mildly elevated in the 200s, initially 261 up trended to 270s, now downtrending in the 190s. Elevated proBNP. Patient is at high risk for in-stent restenosis. Will first address elevated blood pressure and volume overload status. If chest pain resolves, will proceed with stress test tomorrow. If chest pain does not resolve, low threshold for cardiac cath. Increasing Imdur to 60 mg Continue aspirin Continue Plavix Continue Lipitor Consult nephrology for dialysis and volume management Problem List/Past Medical History Ongoing CAD IN [place] ARTERY CHF (CONGESTIVE HEART FAILURE) Chronic heart failure with preserved ejection fraction (HFpEF) CKD (chronic kidney disease) DYSLIPIDEMIA ESRD on dialysis First degree AV block GERD - Gastro-esophageal reflux disease Gross hematuria H/O NON-ST ELEVATION MYOCARDIAL INFARCTION (NSTEMI) Hypertension HYPERTENSION, BENIGN Mild aortic regurgitation Mild mitral regurgitation Mitral regurgitation Moderate aortic stenosis OVERWEIGHT (BMI 25.0-29.9) Parathyroidectomy PREOPERATIVE CLEARANCE PVC (PREMATURE VENTRICULAR CONTRACTION) PVCs (premature ventricular contractions) RBBB S/P TAVR (transcatheter aortic valve replacement) Severe aortic stenosis Smoker Historical Anemia Procedure/Surgical History PCI - Percutaneous coronary intervention: 12/29/24 Stent: 11/05/24 Cardiovascular stress testin11/18/23 PCI - Percutaneous coronary intervention: 09/06/14 Cardiac catheterization, combined right and left heart: 09/06/14 Placement of stent in coronary artery: 09/04/14 Excision of parathyroid gland: 2012 Cystoscopic laser lithotripsy of ureteric calculus: 1959 Cystoscopy Hand Hernia repair Colonoscopy Endoscopy Medications Home Medications (12) Active Arnuity Ellipta 200 mcg/inh inhalation powder 1 puff(s), Inhalation, q24h aspirin 81 mg oral delayed release tablet 81 mg = 1 tab(s), Oral, Daily atorvastatin 40 mg oral tablet 40 mg = 1 tab(s), Oral, qHS calcium acetate 667 mg oral capsule 1,334 mg = 2 cap(s), Oral, TIDAC finasteride 5 mg oral tablet 5 mg = 1 tab(s), Oral, Every other day fluticasone proprionate NASAL 50 mcg/ spray 50 mcg = 1 spray(s), Nostril, each, Daily isosorbide mononitrate 30 mg oral tablet, extended release 30 mg = 1 tab(s), Oral, Sun/Tues/Thurs/Sat Mucinex 600 mg oral tablet, extended release 600 mg = 1 tab(s), Oral, BID nitroglycerin 0.4 mg sublingual tablet 0.4 mg = 1 tab(s), PRN, Sublingual, q5min pantoprazole 40 mg oral enteric coated tablet 1 tab(s), Oral, BID Plavix 75 mg oral tablet 75 mg = 1 tab(s), Oral, qDay sevelamer hydrochloride 800 mg oral tablet 800 mg = 1 tab(s), Oral, TIDM Allergies lisinopril Cough Social History Smoking Status - 09/04/2014 Former smoker Alcohol Use: Current. Type: Liquor. Frequency: 1-2 times per month., 10/28/2024 Nutrition/Health Type of diet: Regular. Caffeine intake amount: 1-2 cups per day. Eating Difficulties None., 11/17/2024 Substance Abuse Use: Never., 11/06/2018 Tobacco Nicotine Use: Former smoker, quit more than 30 days ago. Type: Cigarettes. Tobacco use per day: 30. Number of years: 17., 06/05/2024 Nicotine Use: Former smoker, quit more than 30 days ago., 02/24/2024 Family History Cancer: Mother and Father. Cancer: Brother. Heart disease: Father. Health Status Family Member(s) Immunizations pneumococcal 13-valent conjugate vaccine: 0 unknown unit (12/24/14) pneumococcal 23-valent vaccine(Pneumovax: 0.5 unknown unit (03/04/17) SARS-CoV-2 (COVID-19) mRNA-1273 vaccine: 0.25 unknown unit (07/31/21) SARS-CoV-2 (COVID-19) mRNA-1273 vaccine: 0.5 unknown unit (11/08/20) SARS-CoV-2 (COVID-19) mRNA-1273 vaccine: 0.5 unknown unit (10/11/20) tetanus/diphtheria/pertussMUL.OR [id number]: 0.5 mL (10/31/18) Code Status Code Status - Ordered -- 03/01/25 12:31:00 EDT, Full Code, Constant Order [1] History and Physical; MICHAEL STEIN MD 03/01/2025 12:47 EDT Digitally Signed by MICHAEL STEIN MD on 03/01/2025 03:53 PM [facility] 03-02-2025 Note Date of Service Date: 03/02/2025 Procedure: Lexiscan (regadenoson) chemical stress test Patient underwent a pharmacologic stress test using regadenoson. Total regadenoson dose of 0.4 mg was given as per protocol. The patient had a baseline heart rate of 69 bpm, which peaked at 92 bpm. This represents 67% of the age-predicted maximal heart rate. The patient had a baseline blood pressure of 198/75 mmHg and it changed to 178/76 mmHg after the regadenoson administration. The patient did experience shortness of breath and chest pressure 5 7/10, which all resolved at the end of the test. The patient's baseline EKG showed first-degree heart block, incomplete right bundle branch block and left axis deviation. During the stress, there were no EKG changes suggestive of ischemia. IMPRESSION: EKG portion of the Lexiscan stress test is negative for inducible ischemia. The results of the nuclear portion of the Lexiscan stress test will be reported separately. The EKGs were also reviewed by the attending physician. See addendum to this note by the attending physician for additional comments. Digitally Signed by PIERRE DUENAS MD on 03/02/2025 12:06 PM [facility] 03-02-2025 Nephrology Progress note Date of Service 03/02/2025 Chief Complaint No new complaints. Subjective Patient is lying comfortably in bed. Denies any chest pain or shortness of breath at present. Had partial dialysis yesterday, 2 L fluid removed. Patient denies any dizziness or lightheadedness. He underwent stress test today. Objective Vitals and Measurements T: 36.5 C (Oral) TMIN: 36.4 C (Skin) TMAX: 36.9 C (Oral) HR: 67 RR: 20 BP: 158/62 SpO2: 95% WT: 76.1 kg Physical Exam HEENT: PEERLA Respiratory: Bilateral air entry is present, decreased at bases Cardiovascular: S1-S2 present, no rub, murmur present Abdomen: Soft, NT, BS present Genitourinary: No bladder fullness appreciated Extremities: Bilateral trace pedal edema present, PP present, right arm AV fistula present, bruit present Medications Medications (22) Active Scheduled: (8) aspirin 81 mg Chewable 81 mg 1 tab(s), Oral, qDayM atorvastatin 40 mg tablet 40 mg 1 tab(s), Oral, qDay budesonide 0.25 mg/2 mL Susp UD 0.25 mg 2 mL, Inhalation, BIDRT clopidogrel 75 mg Tablet 75 mg 1 tab(s), Oral, qDay finasteride 5 mg tablet 5 mg 1 tab(s), Oral, Every other day fluticasone nasal 0.05 mg/inh Pierre 50 mcg 1 spray(s), Nostril, each, Daily isosorbide mononitrate 30 mg ER tablet 60 mg 2 tab(s), Oral, qAM sevelamer carbonate 800 mg tablet 800 mg 1 tab(s), Oral, TIDM Continuous: (0) PRN: (14) acetaminophen 325 mg Tablet 650 mg 2 tab(s), Oral, q4h acetaminophen-HYDROcodone 325-10 mg tablet 1 tab(s), Oral, q4h acetaminophen-HYDROcodone 325-5 mg tablet 1 tab(s), Oral, q4h albuterol - ipratropium 2.5 mg-0.5 mg/3 mL Inhal Ada UD 3 mL, Inhalation, q4hRT dextrose 50% Solution Disp syringe 50 mL 25 gram(s) 50 mL, IV Push, AsDirected magnesium sulfate 4 gram(s)/100mL PMX 4 g 100 mL, IV Piggyback, AsDirected magnesium sulfate 50% (500mg/mL) 6 g 12 mL, IV Piggyback, AsDirected magnesium sulfate PMX 2 g 50 mL, IV Piggyback, AsDirected melatonin 3 mg tablet 6 mg 2 tab(s), Oral, qHS ondansetron 2 mg/ 1 mL 2 mL INJ 4 mg 2 mL, IV Push, q4h potassium chloride (PMX) 20 mEq/100 mL 20 mEq 100 mL, IV Piggyback, AsDirected potassium chloride 20 mEq ER tablet 20 mEq 1 tab(s), Oral, AsDirected potassium chloride 20 mEq ER tablet 40 mEq 2 tab(s), Oral, AsDirected potassium chloride 20 mEq ER tablet 40 mEq 2 tab(s), Oral, AsDirected Lab Results 03/02 03:26 WBC: 4.9 Hgb: 10.7 L Hct: 32.9 L Platelet: 120 L Neutrophil %: 59.5 Glucose Level: 89 Sodium Level: 141 Potassium Level: 4.7 BUN: 39.0 H Creatinine Lvl (s): 6.48 H CO2: 29 Calcium: 9.4 Magnesium: 2.2 Phosphorus: 5.2 03/01 13:17 WBC: 5.6 Hgb: 10.9 L Hct: 33.2 L Platelet: 129 L Neutrophil %: 68.9 Protime: 10.8 PT International Ratio: 0.9 Glucose Level: 102 Sodium Level: 140 Potassium Level: 5.6 H BUN: 60.0 H Creatinine Lvl (s): 8.22 H Assessment/Plan ESRD on HD on MWF: Had a partial dialysis yesterday, another dialysis today Hyperkalemia: Resolved with dialysis Volume overload: Fluid removal with dialysis as tolerated Unstable angina: Stress test negative CHF with moderately reduced LVEF: Fluid removal with dialysis as tolerated Anemia due to ESRD: Retacrit with dialysis 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 Dialysis today. Fluid removal with dialysis as tolerated. Okay to start GDMT if needed from renal standpoint. Okay to discharge the patient from renal standpoint. He will resume his outpatient dialysis tomorrow at his chronic unit if discharged today. Discussed with patient. Will follow. Digitally Signed by ROB MON MD on 03/02/2025 12:56 PM [facility] 03-02-2025 Note Exam Date Time Procedure Performing Provider Status 03/02/25 10:35 AM NM Myocardial Spect Rest/Stress HAY MAURER DO; Auth (Verified) [id number] ORIGINAL EXAMINATION: CARDIAC SPECT03/02/2025 10:35 am TECHNIQUE: The patient received an intravenous injection of 8.7 mCi of Tc-99m Sestamibi and resting emission tomographic (SPECT) images of the myocardium were acquired. The patient then received an intravenous infusion of 0.4 mg regadenoson (Lexiscan) followed by an additional injection of 26 mCi of Tc-99m Sestamibi. Stress phase SPECT images of the myocardium were then acquired. These included ECG-gated images to assess and quantify ventricular function. Low dose CT was acquired for attenuation correction. COMPARISON: None HISTORY: ORDERING SYSTEM PROVIDED HISTORY: Reason for Exam: Chest pain FINDINGS: The LV chamber is dilated with areas of myocardial thinning, including the apex. There is inferior wall attenuation artifact. No fixed defects to suggest infarct. No reversible defects to suggest ischemia. The LV chamber is dilated, with an EDV of 223 mL. Normal TID value. Gated post-stress images reveals globally diminished contractility. The estimated LVEF is 36%. 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 IMPRESSION: 1. No evidence of infarct or ischemia. Apical thinning. 2. Dilated cardiomyopathy, with LVEF of 36%. Interpreted by: Hay Farrell DO Preliminary Report By: Hay Farrell DO Electronically signed By Hay Farrell DO Dictated Date: 03/02/2025 10:41:55 AM Prelim Date: 03/02/2025 10:46:20 AM Sign Date: 03/02/2025 10:46:20 AM Ordering Provider: MICHAEL STEIN [facility] [id number] Note Date of Service Date: 03/02/2025 Procedure: Lexiscan (regadenoson) chemical stress test Patient underwent a pharmacologic stress test using regadenoson. Total regadenoson dose of 0.4 mg was given as per protocol. The patient had a baseline heart rate of 69 bpm, which peaked at 92 bpm. This represents 67% of theage-predicted maximal heart rate. The patient had a baseline blood pressure of 198/75 mmHg and it changed to 178/76 mmHg after the regadenoson administration. The patient did experience shortness of breath and chest pressure 5 7/10, which all resolved at theend of the test. The patient's baseline EKG showed first-degree heart block, incomplete right bundle branch block and left axis deviation. During the stress, there were no EKG changes suggestive of ischemia. IMPRESSION: EKG portion of the Lexiscan stress test is negative for inducible ischemia. The results of the nuclear portion of the Lexiscan stress test will be reported separately. The EKGs were also reviewed by the attending physician. See addendum to this note by the attending physician for additional comments. Digitally Signed by PIERRE DUENAS MD on 03/02/2025 12:06 PM [facility] [id number] Note* Exam Date Time Procedure Performing Provider Status 03/01/25 7:32 PM Echocardiogram, Adult - CV CRISTIANO PLATT MD; Auth (Verified) [facility] [id number] Nephrology Progress note Date of Service 03/01/2025 Patient is seen on dialysis. His chest pain and shortness of breath is improving. Vitals on dialysis were reviewed. BP 146/84. Right AV fistula was cannulated without any issues. Ultrafiltration of around 2 L with today's dialysis. Discussed with patient and dialysis nursing staff. Will follow. Digitally Signed by ROB MON MD on 03/01/2025 04:14 PM [facility] [id number] Nephrology Consult note Date of Service 03/01/2025 Reason for Consultation ESRD on HD on MWF. Referring Physician Dr. Ashraf History of Present Illness Mr. Duran is a pleasant 84-year-old gentleman with past medical history of coronary artery disease, severe aortic stenosis, CHF with preserved LVEF, hypertension, hyperlipidemia, chronic anemia, ESRD for which she is on dialysis on MWF at [facility] dialysis unit under Dr. Zayas.Patient went to [place] ER as he was having chest pain/pressure. His pain started around 2 in the morning and was radiating to the jaw and neck and it was persistent. He was evaluated in the ER and was found to have a prolonged DC interval with elevated blood pressure. Patient was admitted with unstable angina and transferred to [place] [facility] under cardiology service. He was also found to have hyperkalemia with potassium of 5.6. Renal consultation was requested for dialysis management. Review of Systems A detailed 10 point review of systems was obtained including constitutional, HEENT, respiratory, cardiovascular, gastrointestinal, genitourinary, musculoskeletal, skin, neurological, psychological, endocrine and hematological. Most of the review of systems is as stated in the history of present illness. At present patient is laying in bed. He complains of chest tightness and some shortness of breath. He started having this chest pain around 2 in the morning. It was radiating to his jaw and arm.He presented to [place] ER with these complaints. He was evaluated in the ER and was transferred to [place] [facility] and admitted under cardiology service. His chest pain and shortness of breath is improving. He denies any dizziness, lightheadedness, falls, abdominal pain. He had his dialysis on Saturdayas per his regular schedule. Review of all other systems is negative. Physical Exam Vitals and Measurements T: 36.6 C (Oral) HR: 71 (Monitored) RR: 17 BP: 144/66 SpO2: 97% HT: 170.2 cm WT: 80.5 kg BMI: 27.79 Weight Dosing Weight: 80.5 kg (03/01/25) HEENT: PEERLA, no pallor Neck: No JVD Respiratory: Bilateral air entry is present, decreased at bases Cardiovascular: S1-S2 present, no rub, murmur present Abdomen: Soft, NT, BS present Genitourinary: No bladder fullness appreciated Extremities: Bilateral trace pedal edema present, PP present, right arm AV fistula present, bruit present Neurological: Awake and responds to verbal commands, no asterixis Psychological: Alert oriented x 3 Musculoskeletal: No joint swelling, tenderness, redness Skin: No ulcerations Lab Results 03/01 13:17 WBC: 5.6 Hgb: 10.9 L Hct: 33.2 L Platelet: 129 L Neutrophil %: 68.9 Protime: 10.8 PT International Ratio: 0.9 Glucose Level: 102 Sodium Level: 140 Potassium Level: 5.6 H BUN: 60.0 H Creatinine Lvl (s): 8.22 H CO2: 28 Calcium: 9.1 Magnesium: 2.4 Albumin: 3.4 Troponin peaked at 271 proBNP is more than 47,000 Imaging Results and Diagnostics Chest x-ray: IMPRESSION: 1. Mild pulmonary edema pattern. 2. Status post TAVR procedure. Assessment/Plan 1. ESRD on HD on MWF at [facility] dialysis unit under Dr. Zayas 2. Hyperkalemia: Expect to resolve with dialysis 3. Volume overload: Fluid removal with dialysis as tolerated 4. Unstable angina: Management per cardiology 5. CHF with preserved LVEF: Fluid removal with dialysis as tolerated 6. Anemia due to ESRD: Retacrit with dialysis per protocol 7. 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 Due to his volume overload and hyperkalemia he will need dialysistonight. He will probably need dialysis tomorrow as well as it will be a shorter dialysis today. Restart phosphate binders with meals. Labs in AM. Discussed with patient. Will closely follow the patient while he is in the hospital. Thank you very much for your consultation and allowing me to participate in Mr. Duran's care. Problem List/Past Medical History ESRD on HD on MWF at [facility] dialysis unit under Dr. 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 Procedure/Surgical History Cardiac catheterization TAVR Right arm AV fistula placement Fistulogram of AV fistula PCI Cystoscopy Hernia repair Ureteral stone removal with lithotripsy EGD Colonoscopy Medications Inpatient aspirin, 81 mg= 1 tab(s), Oral, qDayM budesonide 0.25 mg/2 mL inhalation suspension, 0.25 mg= 2 mL, Inhalation, BIDRT Dextrose 50% IV Push, 25 gram(s)= 50 mL, IV Push, AsDirected, PRN DuoNeb, 3 mL, Inhalation, q4hRT, PRN finasteride 5 mg oral tablet, 5 mg= 1 tab(s), Oral, Every other day fluticasone 50 mcg/inh NASAL spray, 50 mcg= 1 spray(s), Nostril, each, Daily Heparin for IV 25,000 unit(s) [12 unit(s)/kg/hr] + Dextrose 5% Premix Diluent 250 mL isosorbide mononitrate 30 mg oral tablet, extended release, 60 mg= 2 tab(s), Oral, qAM Lipitor, 40 mg= 1 tab(s), Oral, qDay magnesium sulfate for IV bolus, 2 gram(s)= 50 mL, IV Piggyback, AsDirected, PRN magnesium sulfate for IV bolus, 4 gram(s)= 100 mL, IV Piggyback, AsDirected, PRN magnesium sulfate for IV bolus melatonin, 6 mg= 2 tab(s), Oral, qHS, PRN Nitro-Bid 2% transdermal ointment, 1 inch(es), Topical, BID [place] 325- 5 mg oral tablet, 1 tab(s), Oral, q4h, PRN [place] 325-10 mg oral tablet, 1 tab(s), Oral, q4h, PRN Plavix, 75 mg= 1 tab(s), Oral, qDay potassium chloride, 20 mEq= 1 tab(s), Oral, AsDirected, PRN potassium chloride, 40 mEq= 2 tab(s), Oral, AsDirected, PRN potassium chloride, 40 mEq= 2 tab(s), Oral, AsDirected, PRN potassium chloride bolus, 20 mEq= 100 mL, IV Piggyback, AsDirected, PRN Tylenol, 650 mg= 2 tab(s), Oral, q4h, PRN Zofran, 4 mg= 2 mL, IV Push, q4h, PRN Home Arnuity Ellipta 200 mcg/inh inhalation powder, 1 puff(s), Inhalation, q24h aspirin 81 mg oral delayed release tablet, 81 mg= 1 tab(s), Oral, Daily, 4 refills atorvastatin 40 mg oral tablet, 40 mg= 1 tab(s), Oral, qHS, 4 refills calcium acetate 667 mg oral capsule, 1334 mg= 2 cap(s), Oral, TIDAC finasteride 5 mg oral tablet, 5 mg= 1 tab(s), Oral, Every other day, 3 refills fluticasone proprionate NASAL 50 mcg/ spray, 50 mcg= 1 spray(s), Nostril, each, Daily isosorbide mononitrate 30 mg oral tablet, extended release, 30 mg= 1 tab(s), Oral, Sun/Tues/Thurs/Sat Mucinex 600 mg oral tablet, extended release, 600 mg= 1 tab(s), Oral, BID nitroglycerin 0.4 mg sublingual tablet, 0.4 mg= 1 tab(s), Sublingual, q5min, PRN, 1 refills pantoprazole 40 mg oral enteric coated tablet, 1 tab(s), Oral, BID, 2 refills Plavix 75 mg oral tablet, 75 mg= 1 tab(s), Oral, qDay, 3 refills sevelamer hydrochloride 800 mg oral tablet, 800 mg= 1 tab(s), Oral, TIDM, New Prescription Allergies lisinopril Cough Social History Smoking Status - 09/04/2014 Former smoker Alcohol Use: Current. Type: Liquor. Frequency: 1-2 times per month., 10/28/2024 Nutrition/Health Type of diet: Regular. Caffeine intake amount: 1-2 cups per day. Eating Difficulties None., 11/17/2024 Substance Abuse Use: Never., 11/06/2018 Tobacco Nicotine Use: Former smoker, quit more than 30 days ago. Type: Cigarettes. Tobacco use per day: 30.Number of years: 17., 06/05/2024 Nicotine Use: Former smoker, quit more than 30 days ago., 02/24/2024 Family History Cancer: Mother and Father. Cancer: Brother. Heart disease: Father. Health Status Family Member(s) Immunizations pneumococcal 13-valent conjugate vaccine: 0 unknown unit (12/24/14) pneumococcal 23-valent vaccine(Pneumovax: 0.5 unknown unit (03/04/17) SARS-CoV-2 (COVID-19) mRNA-1273 vaccine: 0.25 unknown unit (07/31/21) SARS-CoV-2 (COVID-19) mRNA-1273 vaccine: 0.5 unknown unit (11/08/20) SARS-CoV-2 (COVID-19) mRNA-1273 vaccine: 0.5 unknown unit (10/11/20) tetanus/diphtheria/pertussMUL.[id number]: 0.5 mL (10/31/18) Digitally Signed by ROB MON MD on 03/01/2025 04:06 PM [facility] [id number] History and physical note Date of Service 03/01/2025 14:55:42 History of Present Illness 84-year-old gentleman with known history of severe aortic stenosis, coronary artery disease s/p PCI(10/2024- mid RCA 80%-stented, prox LCX 80% drug coated balloon angioplasty, prior PCI 04/2024), chronic HFpEF, RBBB, 1st degree AV block, hypertension, hyperlipidemia, chronic anemia, and ESRD on dialysis M/W/F who presented to [place] emergency for concerns of chest pressure. Pressure and pain started around 2 AM with radiation to his jaw and neck, was persistent. Went to the emergency room, where workup was significant for a prolonged DC interval around 400 ms (which is known), elevated bloodpressures, elevated troponins initially in the 260s then up trended to 270s. Chest x-ray was concern ing for possible bilateral pneumonia, patient was given azithromycin and ceftriaxone. Was transferred to CCU for further evaluation. Patient denies having chest pain after his TAVR procedure and had been doing fairly well after that. Pressure was sudden. Review of Systems Per HPI Physical Exam Vitals and Measurements T: 36.6 C (Oral) HR: 71 (Monitored) RR: 17 BP: 144/66 SpO2: 97% HT: 170.2 cm WT: 80.5 kg BMI: 27.79 Weight Dosing Weight: 80.5 kg (03/01/25) Lab Results 03/01 13:17 WBC: 5.6 Hgb: 10.9 L Hct: 33.2 L Platelet: 129 L Neutrophil %: 68.9 Protime: 10.8 PT International Ratio: 0.9 Glucose Level: 102 Sodium Level: 140 Potassium Level: 5.6 H BUN: 60.0 H Creatinine Lvl (s): 8.22 H Imaging Results and Diagnostics Echocardiogram 01/26/2025 Summary: 1. Left ventricle: The cavity size is increased. Wall thickness is increased. Systolic function is moderately reduced. The estimated ejection fraction is 40%. There is mild diffuse hypokinesis. Diastolic dysfunction is present. 2. Ventricular septum: Thickness is mildly increased. 3. Aortic valve: A bioprosthetic valve is present. There is no stenosis. There is mild paravalvularregurgitation. Mean gradient 10 mmHg 4. Mitral valve: There is mild to moderate regurgitation, directed eccentrically. 5. Left atrium: The atrium is severely dilated. 6. Right ventricle: The cavity size is mildly increased. Systolic function is reduced. The RV systolic pressure by Doppler is 43 mm Hg. 7. Right atrium: The atrium is dilated. The estimated right atrial pressure is 3 mm Hg Assessment/Plan Unstable angina Elevated troponin, NSTEMI versus type II demand ischemia Severe aortic stenosis status post recent TAVR Coronary artery disease status post PCI to mid RCA 10/2024, proximal LCx 80% drug-coated balloon angioplasty, prior PCI in April 2024 First-degree AV block with known prolonged DC interval, typically around 400 ms Chronic HFpEF Right bundle branch block CKD stage V on dialysis Saturday 84-year-old gentleman with with strong cardiac history presented to the emergency room with concerns of sudden chest pressure with radiation to his jaw and teeth. Troponin only mildly elevated in [id number], initially 261 up trended to 270s, now downtrending in the 190s. Elevated proBNP. Patient is at high risk for in-stent restenosis. Will first address elevated blood pressure and volume overload status. If chest pain resolves, will proceed with stress test tomorrow. If chest pain does not resolve, low threshold for cardiac cath. Increasing Imdur to 60 mg Continue aspirin Continue Plavix Continue Lipitor Consult nephrology for dialysis and volume management Problem List/Past Medical History Ongoing CAD IN [place] ARTERY CHF (CONGESTIVE HEART FAILURE) Chronic heart failure with preserved ejection fraction (HFpEF) CKD (chronic kidney disease) DYSLIPIDEMIA ESRD on dialysis First degree AV block GERD - Gastro-esophageal reflux disease Gross hematuria H/O NON-ST ELEVATION MYOCARDIAL INFARCTION (NSTEMI) Hypertension HYPERTENSION, BENIGN Mild aortic regurgitation Mild mitral regurgitation Mitral regurgitation Moderate aortic stenosis OVERWEIGHT (BMI 25.0-29.9) Parathyroidectomy PREOPERATIVE CLEARANCE PVC (PREMATURE VENTRICULAR CONTRACTION) PVCs (premature ventricular contractions) RBBB S/P TAVR (transcatheter aortic valve replacement) Severe aortic stenosis Smoker Historical Anemia Procedure/Surgical History PCI - Percutaneous coronary intervention: 12/29/24 Stent: 11/05/24 Cardiovascular stress testin11/18/23 PCI - Percutaneous coronary intervention: 09/06/14 Cardiac catheterization, combined right and left heart: 09/06/14 Placement of stent in coronary artery: 09/04/14 Excision of parathyroid gland: 2012 Cystoscopic laser lithotripsy of ureteric calculus: 1959 Cystoscopy Hand Hernia repair Colonoscopy Endoscopy Medications Home Medications (12) Active Arnuity Ellipta 200 mcg/inh inhalation powder 1 puff(s), Inhalation, q24h aspirin 81 mg oral delayed release tablet 81 mg = 1 tab(s), Oral, Daily atorvastatin 40 mg oral tablet 40 mg = 1 tab(s), Oral, qHS calcium acetate 667 mg oral capsule 1,334 mg = 2 cap(s), Oral, TIDAC finasteride 5 mg oral tablet 5 mg = 1 tab(s), Oral, Every other day fluticasone proprionate NASAL 50 mcg/ spray 50 mcg = 1 spray(s), Nostril, each, Daily isosorbide mononitrate 30 mg oral tablet, extended release 30 mg = 1 tab(s), Oral, Sun/Tues/Thurs/Sat Mucinex 600 mg oral tablet, extended release 600 mg = 1 tab(s), Oral, BID nitroglycerin 0.4 mg sublingual tablet 0.4 mg = 1 tab(s), PRN, Sublingual, q5min pantoprazole 40 mg oral enteric coated tablet 1 tab(s), Oral, BID Plavix 75 mg oral tablet 75 mg = 1 tab(s), Oral, qDay sevelamer hydrochloride 800 mg oral tablet 800 mg = 1 tab(s), Oral, TIDM Allergies lisinopril Cough Social History Smoking Status - 09/04/2014 Former smoker Alcohol Use: Current. Type: Liquor. Frequency: 1-2 times per month., 10/28/2024 Nutrition/Health Type of diet: Regular. Caffeine intake amount: 1-2 cups per day. Eating Difficulties None., 11/17/2024 Substance Abuse Use: Never., 11/06/2018 Tobacco Nicotine Use: Former smoker, quit more than 30 days ago. Type: Cigarettes. Tobacco use per day: 30.Number of years: 17., 06/05/2024 Nicotine Use: Former smoker, quit more than 30 days ago., 02/24/2024 Family History Cancer: Mother and Father. Cancer: Brother. Heart disease: Father. Health Status Family Member(s) Immunizations pneumococcal 13-valent conjugate vaccine: 0 unknown unit (12/24/14) pneumococcal 23-valent vaccine(Pneumovax: 0.5 unknown unit (03/04/17) SARS-CoV-2 (COVID-19) mRNA-1273 vaccine: 0.25 unknown unit (07/31/21) SARS-CoV-2 (COVID-19) mRNA-1273 vaccine: 0.5 unknown unit (11/08/20) SARS-CoV-2 (COVID-19) mRNA-1273 vaccine: 0.5 unknown unit (10/11/20) tetanus/diphtheria/pertussMUL.ORD![id number]: 0.5 mL (10/31/18) Code Status Code Status - Ordered -- 03/01/25 12:31:00 EDT, Full Code, Constant Order [1] History and Physical; MICHAEL STEIN MD 03/01/2025 12:47 EDT Digitally Signed by MICHAEL STEIN MD on 03/01/2025 03:53 PM [id number] Note* Exam Date Time Procedure Performing Provider Status 03/01/25 3:35 PM Electrocardiogram - EKG - CV CASEY TEMPLETON MD; Auth (Verified) ECG Final Report SINUS OR ECTOPIC ATRIAL RHYTHM 2:1 PROLONGED DC INTERVAL RIGHT BUNDLE BRANCH BLOCK INFERIOR INFARCT, OLD Electronic Signature: CASEY TEMPLETON MD 03/02/2025 14:59:54 [facility] [id number] Evaluation + Plan noteExtracted from: Title:History and Physical Author:LUCIA STEIN MD Date:03/01/25 Unstable angina Elevated troponin, NSTEMI versus type II demand ischemia Severe aortic stenosis status post recent TAVR Coronary artery disease status post PCI to mid RCA 10/2024, proximal LCx 80% drug-coated balloon angioplasty, prior PCI in April 2024 First-degree AV block with known prolonged DC interval, typically around 400 ms Chronic HFpEF Right bundle branch block CKD stage V on dialysis Saturday 84-year-old gentleman with with strong cardiac history presented to the emergency room with concerns of sudden chest pressure with radiation to his jaw and teeth. Troponin only mildly elevated in the 200s, initially 261 up trended to 270s, now downtrending in the 190s. Elevated proBNP. Patient is at high risk for in-stent restenosis. Will first address elevated blood pressure and volume overload status. If chest pain resolves, will proceed with stress test tomorrow. If chest pain does not resolve, low threshold for cardiac cath. Increasing Imdur to 60 mg Continue aspirin Continue Plavix Continue Lipitor Consult nephrology for dialysis and volume management Addendum by LOLIS GUIDO MD on March 02, 2025 16:30:27 EDT I have personally seen, examined, and evaluated the patient on the encounter date. I have reviewed the fellow s documentation and agree with the fellow s findings and plan as documented, unless otherwise stated. Future Appointments Appointment Date:03/12/2025 10:45:00 AM Scheduled Provider:OMARI ANDINO Location:[facility] Appointment Type:CV OV Appointment Date:01/13/2026 08:00:00 AM Scheduled Provider: Location:[facility] Appointment Type:Echo - Echocardiogram Adult Appointment Date:01/20/2026 09:30:00 AM Scheduled Provider:MACHO DERAS Location:[facility] Appointment Type:CV OV [facility] 07-21-2025 Note* Exam Date Time Procedure Performing Provider Status 03/01/25 1:01 PM XR Chest 1 View ALBERTO BRYSON DO; Au th (Verified) [id number] ORIGINAL EXAMINATION: ONE XRAY VIEW OF THE CHEST 03/01/2025 1:02 pm COMPARISON: 03/01/2025 HISTORY: ORDERING SYSTEM PROVIDED HISTORY: Reason for Exam: Chest Pain FINDINGS: Pulmonary vascular cephalization, veiling of the lower lobe vessels, cardiomegaly, and left ventricular configuration noted. Patient status post TAVR procedure. There is no pneumothorax or acute bony abnormality. IMPRESSION: 1. Mild pulmonary edema pattern. 2. Status post TAVR procedure. Interpreted by: Alberto Bryson DO Preliminary Report By: Alberto Bryson DO Electronically signed By Alberto Bryson DO Dictated Date: 03/01/2025 1:22:05 PM Prelim Date: 03/01/2025 1:23:26 PM Sign Date: 03/01/2025 1:23:26 PM Ordering Provider: MICHAEL STEIN [facility] [id number] Note* Exam Date Time Procedure Performing Provider Status 03/01/25 12:05 PM Electrocardiogram - EKG - CV CASEY SOLO MD; Auth (Verified) ECG Final Report SINUS RHYTHM VS ATRIAL TACHYCARDIA 2:1 PROLONGED DC INTERVAL LEFT ATRIAL ENLARGEMENT RIGHT BUNDLE BRANCH BLOCK INFERIOR INFARCT, OLD Electronic Signature: CASEY TEMPLETON MD 03/02/2025 14:56:09 [facility] [id number] Note* Exam Date Time Procedure Performing Provider Status 03/01/25 5:12 AM EKG [ED AO] - CV RAND DHILLON MD; Auth (Verified) ECG Final Report Sinus or ectopic atrial rhythm Prolonged DC interval Right bundle branch block Inferior infarct, old Electronic Signature: RAND DHILLON MD 03/01/2025 05:17:25 [facility]07-21-2025 Note* Exam Date Time Procedure Performing Provider Status 03/01/25 4:56 AM XR Chest 1 View ALCIDES MORALES MD; Aut h (Verified) [id number] ORIGINAL EXAMINATION: ONE XRAY VIEW OF THE CHEST03/01/2025 4:57 am CHEST ONE VIEW AP/PA COMPARISON: None HISTORY: ORDERING SYSTEM PROVIDED HISTORY: Reason for Exam: chest pain FINDINGS: Mild cardiomegaly. Atherosclerotic calcification of the aorta is noted. Mild interstitial opacities are present bilaterally. No focal consolidation, pleural effusion, or vascular congestion is seen. The osseous structures are intact. IMPRESSION: Mild interstitial opacities bilaterally could represent a developing infectious or inflammatory process. Interpreted by: Alcides Morales MD Preliminary Report By: Alcides Morales MD Electronically signed By Alcides Morales MD Dictated Date: 03/01/2025 5:32:15 AM Prelim Date: 03/01/2025 5:35:04 AM Sign Date: 03/01/2025 5:35:04 AM Ordering Provider: RAND DHILLON [facility]07-21-2025 Note* Exam Date Time Procedure Performing Provider Status 03/01/25 4:33 AM EKG [ED AOH] - CV RAND DHILLON MD; Auth (Verified) ECG Final Report Second degree AV block, Mobitz II Ventricular premature complex Right bundle branch block Inferior infarct, old Electronic Signature: RAND DHILLON MD 03/01/2025 04:49:35 [facility]07-11-2025 Telephone encounter Note* Telephone Encounter - Trevin Bermeo MA - 02/19/2025 12:57 PM EDT Pt notified and verbalized understanding Trevin Bermeo MA [facility]07-11-2025 Miscellaneous Notes* Telephone Encounter - Trevin Bermeo MA - 02/19/2025 12:57 PM EDT Pt notified and verbalized understanding Trevin Bermeo MA * Telephone Encounter - Deanne Shen APRN.CNP - 02/18/2025 4:34 PM EDT Please let patient know his xray is stable. Since he is feeling better the xray findings are likelyfrom atelectasis vs pneumonia. [facility] Telephone encounter Note * Telephone Encounter - Deanne Shen APRN.CNP - 02/18/2025 4:34 PM EDT Please let patient know his xray is stable. Since he is feeling better the xray findings are likelyfrom atelectasis vs pneumonia. [facility]07-10-2025 History of Present illness Narrative* Mike Jason RT(R) - 02/18/2025 8:40 AM EDT Radiology Service Progress Note PATIENT NAME: Luis Manuel Duran JR DATE OF SERVICE: February 18, 2025 TIME: 8:40 AM PATIENT IDENTITY VERIFICATION COMPLETED USING TWO (2) IDENTIFIERS: Name and Date of confirmedby patient verbally. FALL SCREENING: Has the patient had 2 falls in the last year or 1 fall with injury or currently using an Ambulatory Assistive Device (Walker, Cane, Wheelchair, Crutches, etc.)? No PATIENT GENDER DATA: Assigned male at PATIENT RELEVANT IMPLANT DATA REVIEWED: Not Applicable PATIENT PRESENTS WITH AN IMPLANTABLE OR ATTACHED SENIOR NETWORK SECURITY ARCHITECT: No RADIOLOGY DEPARTMENT: General X-ray: Exam(s) Completed: Chest X-Ray PERIPHERAL IV DATA: Not applicable SIGNED BY: JERO Sales) February 18, 2025 8:40 AM documented in this [facility]As[facility]07-10-2025 NoteHNO ID: [id number] Author: MIKE JASON RT(R) Service: ? Author Type: Technologist Type: Progress Notes Filed: 02/18/2025 08:44 Note Text: Radiology Service Progress Note PATIENT NAME: Luis Manuel Duran JR DATE OF SERVICE: February 18, 2025 TIME: 8:40 AM PATIENT IDENTITY VERIFICATION COMPLETED USING TWO (2) IDENTIFIERS: Name and Date of confirmed by patient verbally. FALL SCREENING: Has the patient had 2 falls in the last year or 1 fall with injury or currently using an Ambulatory Assistive Device (Walker, Cane, Wheelchair, Crutches, etc.)? No PATIENT GENDER DATA: Assigned male at PATIENT RELEVANT IMPLANT DATA REVIEWED: Not Applicable PATIENT PRESENTS WITH AN IMPLANTABLE OR ATTACHED SENIOR NETWORK SECURITY ARCHITECT: No RADIOLOGY DEPARTMENT: General X-ray: Exam(s) Completed: Chest X-Ray PERIPHERAL IV DATA: Not applicable SIGNED BY: RT Mónica(R) February 18, 2025 8:40 [facility]07-01-2025 NoteHNO ID: [id number] Author: DEANNE SHEN APRN.MAMMOGRAPHER Service: ? Author Type: Nurse Practitioner Type: Progress Notes Filed: 02/09/2025 14:33 Note Text: Chief Complaint Patient presents with: Follow Up HPI Luis Manuel Duran JR is a 84 year old male who presents here today for Patient saw Dr. Ortiz this morning for stomach concerns. Will now take metoclopramide QID and pantoprazole BID. They will do further testing for digestion concerns. Patient reports he is still vomiting mucus and coughing. The cough is less often and he is still coughing up mucus. He does not have energy and feels short of breath. He denies fevers, chills. He has an appointment with his heart doctor for palpitation. He denies any swelling. Past medical history, appointments, medications, allergies reviewed. Previous Medical History PAST MEDICAL HISTORY Diagnosis Date Advance directive discussed with patient 12/15/2021 Discussed 12/2021 Anemia of chronic disease 10/15/2013 Benign essential tremor 07/03/2010 BPH with obstruction/lower urinary tract symptoms 08/01/2005 Chronic diastolic congestive heart failure (HCC) 12/15/2021 seeing cardio CKD (chronic kidney disease) stage 4, GFR 15-29 ml/min (HCC) 03/04/2017 Coronary artery disease involving [place] coronary artery of [place] heart without angina pectoris 03/06/[address] Clifford Sherwood COVID-19 virus infection 05/29/2021 05/27/2021 Diaphragmatic hernia without mention of obstruction or gangrene Hiatal hernia Elevated alkaline phosphatase level 09/24/2023 Elevated bone fraction: NM bone scan 09/2023 was normal. Elevated PSA 03/11/2019 Esophagitis, unspecified ESRD (end stage renal disease) on dialysis (HCC) 07/11/2023 Essential hypertension, benign Ex-smoker 12/26/2020 Started age 18 up to 1.5 PPD and quit at age 35. 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 deficiency ([facility]) 10/15/2013 Living will on file 12/15/2021 DPA: Shea () Mild aortic stenosis 11/27/2021 Seeing Cardio Mixed hyperlipidemia 09/03/2013 Overweight (BMI 25.0-29.9) Parathyroid adenoma 05/27/2013 parathyroidectomy 05/27/13 Personal history of colonic polyps Colon polyps Primary hyperparathyroidism ([facility]) 03/04/2017 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: 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 S/P TAVR (transcatheter aortic valve replacement) 01/29/202501/2025 TIA (transient ischemic attack) 06/2010 Ulcer of esophagus without bleeding Vitamin D deficiency 10/15/2013 Previous Surgical History PAST SURGICAL HISTORY Procedure Laterality Date BX/EXC LYMPH NODE OPEN SUPERFICIAL CC CORONARY STENT 11/18/2023 2 stents to Left Circ COLONOSCOPY 12/22/2019 COLONOSCOPY FLX DX W/COLLJ SPEC WHEN PFRMD 08/2000 Colonoscopy COLONOSCOPY FLX DX W/COLLJ SPEC WHEN PFRMD 10/19/2008 EGD 06/11/2024 EGD TRANSORAL BIOPSY SINGLE/MULTIPLE 10/19/2008 ESOPHAGOGASTRODUODENOSCOPY TRANSORAL DIAGNOSTIC ESOPHAGOGASTRODUODENOSCOPY TRANSORAL DIAGNOSTIC 12/22/[address] Marcial LAPAROSCOPIC HERNIA REPAIR Right 05/21/2018 recurrent incarcerated direct right inguinal hernia PARATHYROIDECTOMY/EXPLORATION PARATHYROIDS 05/27/2013 Parathyroid adenoma PAST SURGICAL HISTORY OF 01/20/2021 supraumbilical ventral hernia RPR 1ST INGUN HRNA AGE 5 YRS/> REDUCIBLE Hernia repair, inguinal BILATERAL TAVR 01/2025 Family History FAMILY HISTORY Problem Relation Age of Onset Colon Cancer Mother Colon Cancer Father Arthritis Mother Heart Father SD * 2 Prostate Cancer Brother Hypertension Brother None Brother Patient Allergies ALLERGIES Allergen Reactions Axid [Nizatidine] Unknown Entex Pse [Pseudoep* Unknown Lisinopril Cough Current Medications Current Outpatient Medications on File Prior to Visit Medication Sig metoclopramide HCl (REGLAN) 5 mg tablet Take 1 tablet by mouth three times a day as needed. (Patient taking differently: Take 5 mg by mouth four times daily.) guaiFENesin (MUCINEX) 1,200 mg Ta12 Take 1 tablet by mouth once daily. ARNUITY ELLIPTA 200 mcg/actuation inhaler Inhale 1 puff as instructed once daily. fluticasone (FLONASE) 50 mcg/actuation nasal spray Use 1 spray in each nostril once daily. atorvastatin (LIPITOR) 40 mg tablet Take 1 tablet by mouth once daily. For cholesterol. albuterol HFA (PROVENTIL HFA, VENTOLIN HFA) 90 mcg/actuation inhaler Inhale 2 Puffs as instructed every 4 hours as needed for wheezing/shortness of breath. finasteride (PROSCAR) 5 mg tablet Take 5 mg by mouth once daily. lansoprazole (PREVACID) 30 mg capsule Take 1 capsule by mouth once daily. calcium acetate,phosphat bind, (PHOSLO) 667 mg capsule (more content not included)...[facility]07-01-2025 History of Present illness Narrative* Deanne Shen APRN.MAMMOGRAPHER - 02/09/2025 1:44 PM EDT Chief Complaint Patient presents with: Follow Up HPI Luis Manuel Guzman Roger is a 84 year old male who presents here today for Patient saw Dr. Ortiz this morning for stomach concerns. Will now take metoclopramide QID and pantoprazole BID. They will do further testing for digestion concerns. Patient reports he is still vomiting mucus and coughing. The cough is less often and he is still coughing up mucus. He does not have energy and feels short of breath. He denies fevers, chills. He has an appointment with his heart doctor for palpitation. He denies any swelling. Past medical history, appointments, medications, allergies reviewed. Previous Medical History PAST MEDICAL HISTORY Diagnosis Date Advance directive discussed with patient 12/15/2021 Discussed 12/2021 Anemia of chronic disease 10/15/2013 Benign essential tremor 07/03/2010 BPH with obstruction/lower urinary tract symptoms 08/01/2005 Chronic diastolic congestive heart failure (HCC) 12/15/2021 seeing cardio CKD (chronic kidney disease) stage 4, GFR 15-29 ml/min ([facility]) 03/04/2017 Coronary artery disease involving [place] coronary artery of [place] heart without angina pectoris 03/06/[address] Horton Cardio Marc COVID-19 virus infection 05/29/2021 05/27/2021 Diaphragmatic hernia without mention of obstruction or gangrene Hiatal hernia Elevated alkaline phosphatase level 09/24/2023 Elevated bone fraction: NM bone scan 09/2023 was normal. Elevated PSA 03/11/2019 Esophagitis, unspecified ESRD (end stage renal disease) on dialysis ([facility]) 07/11/2023 Essential hypertension, benign Ex-smoker 12/26/2020 Started age 18 up to 1.5 PPD and quit at age 35. Family history of malignant neoplasm of gastrointestinal tract GERD without esophagitis Gastroesophageal reflux Heart attack ([facility]) 2023 History of COVID-19 05/29/2021 05/27/2021 History of non-ST elevation myocardial infarction (NSTEMI) 03/06/2018 09/06/14-- stent 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 deficiency ([facility]) 10/15/2013 Living will on file 12/15/2021 DPA: Shea () Mild aortic stenosis 11/27/2021 Seeing Cardio Mixed hyperlipidemia 09/03/2013 Overweight (BMI 25.0-29.9) Parathyroid adenoma 05/27/2013 parathyroidectomy 05/27/13 Personal history of colonic polyps Colon polyps Primary hyperparathyroidism ([facility]) 03/04/2017 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: 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 S/P TAVR (transcatheter aortic valve replacement) 01/29/202501/2025 TIA (transient ischemic attack) 06/2010 Ulcer of esophagus without bleeding Vitamin D deficiency 10/15/2013 Previous Surgical History PAST SURGICAL HISTORY Procedure Laterality Date BX/EXC LYMPH NODE OPEN SUPERFICIAL CC CORONARY STENT 11/18/2023 2 stents to Left Circ COLONOSCOPY 12/22/2019 COLONOSCOPY FLX DX W/COLLJ SPEC WHEN PFRMD 08/2000 Colonoscopy COLONOSCOPY FLX DX W/COLLJ SPEC WHEN PFRMD 10/19/2008 EGD 06/11/2024 EGD TRANSORAL BIOPSY SINGLE/MULTIPLE 10/19/2008 ESOPHAGOGASTRODUODENOSCOPY TRANSORAL DIAGNOSTIC ESOPHAGOGASTRODUODENOSCOPY TRANSORAL DIAGNOSTIC 12/22/[address] Marcial LAPAROSCOPIC HERNIA REPAIR Right 05/21/2018 recurrent incarcerated direct right inguinal hernia PARATHYROIDECTOMY/EXPLORATION PARATHYROIDS 05/27/2013 Parathyroid adenoma PAST SURGICAL HISTORY OF 01/20/2021 supraumbilical ventral hernia RPR 1ST INGUN HRNA AGE 5 YRS/> REDUCIBLE Hernia repair, inguinal BILATERAL TAVR 01/2025 Family History FAMILY HISTORY Problem Relation Age of Onset Colon Cancer Mother Colon Cancer Father Arthritis Mother Heart Father SD * 2 Prostate Cancer Brother Hypertension Brother None Brother Patient Allergies ALLERGIES Allergen Reactions Axid [Nizatidine] Unknown Entex Pse [Pseudoep* Unknown Lisinopril Cough Current Medications Current Outpatient Medications on File Prior to Visit Medication Sig metoclopramide HCl (REGLAN) 5 mg tablet Take 1 tablet by mouth three times a day as needed. (Patient taking differently: Take 5 mg by mouth four times daily.) guaiFENesin (MUCINEX) 1,200 mg Ta12 Take 1 tablet by mouth once daily. ARNUITY ELLIPTA 200 mcg/actuation inhaler Inhale 1 puff as instructed once daily. fluticasone (FLONASE) 50 mcg/actuation nasal spray Use 1 spray in each nostril once daily. atorvastatin (LIPITOR) 40 mg tablet Take 1 tablet by mouth once daily. For cholesterol. albuterol HFA (PROVENTIL HFA, VENTOLIN HFA) 90 mcg/actuation inhaler Inhale 2 Puffs as instructed every 4 hours as needed for wheezing/shortness of breath. finasteride (PROSCAR) 5 mg tablet Take 5 mg by mouth once daily. lansoprazole (PREVACID) 30 mg capsule Take 1 capsule by mouth once daily. calcium acetate,phosphat bind, (PHOSLO) 667 mg capsule clopidogrel (PLAVIX) 75 mg tablet Take 1 tablet by mouth every afternoon. calcium citrate (CALCITRATE) 200 mg (950 mg) tab Take 1 tablet by mouth four times daily. nitroglycerin sublingual (NITROSTAT) 0.4 mg SL tablet Dissolve 1 tablet under the tongue every 5 minutes as needed. aspirin, enteric coated (ASPIRIN, ENTERIC COATED) 81 mg EC tablet Take 1 tablet by mouth once daily. No current facility-administered medications on file prior to visit. Social History Social History Tobacco Use Smoking status: Former Types: Cigarettes Smokeless tobacco: Never Tobacco comments: quit 1976 Vaping Use Vaping status: Never Used Substance Use Topics Alcohol use: Yes Alcohol/week: 1.0 standard drink of alcohol Types: 1 Standard drinks or equivalent per week Comment: very little Drug use: No Review of Symptoms REVIEW OF SYSTEMS SEE HPI EXAM: BP 143/74 Pulse 80 Wt 79 kg (174 lb 2.6 oz) SpO2 96% BMI 27.28 kg/m General Appearance: Well appearing, alert, in no acute distress, well-hydrated, well nourished. Lungs: Lungs clear to auscultation. No wheezing, rhonchi, rales.. Heart: RRR without murmur, gallop, or rubs. No ectopy. Health Maintenance List Shingrix Vaccine(1 of 2) due on 09/22/2025 Covid-19 Vaccine( season) due on 09/22/2025 Influenza Vaccine(1) due on 04/12/2025 LDL Cholesterol due on 09/17/2025 Depression Screening due on 09/22/2025 Anxiety Screening due on 09/22/2025 Diabetes Screening due on 09/17/2027 DTaP,Tdap,Td Vaccine(5 - Td or Tdap) due on 11/01/2028 RSV Vaccine Completed Medicare Advantage Annual Wellness Visit Completed Pneumococcal Vaccine: 50+ Completed Hepatitis B Vaccine Discontinued Colorectal Cancer Screening Discontinued Advance Directive Discussion Discontinued Data reviewed ASSESSMENT/PLAN: 1. Bacterial pneumonia - ICD9: 482.9, ICD10: J15.9 (primary diagnosis) - Completed atb and steroids. - Repeat xr in 1 week - XR CHEST 2V FRONTAL/LAT 2. Cough productive of clear sputum - ICD9: 786.2, ICD10: R05.8 - CETIRIZINE 10 MG TABLET Deanne Shen APRN.MAMMOGRAPHER documented in this encounterAs[facility]06-[facility] Telephone encounter Note * Telephone Encounter - Aanhi Galindo RN - 02/08/2025 11:27 AM EDT Pt called in and reports he was diagnosed with Pneumonia. He states he was on Zithromax and Augmentin and he finished them on Saturday. Pt states he has almost gotten rid of the cough, but he brought up a lot of clear phlegm this morning. He reports to still being very fatigued and has had a headachealmost this whole time. Pt reports Ibuprofen and Tylenol have helped alleviate the headache. Pt is still reporting lower abdominal pain, and has appointment with Dr Ortiz tomorrow morning. 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 Pt's could be heard I the background saying he wanted to make sure the Pneumonia had cleared up. Anahi Galindo RN [facility]06-30-2025 Miscellaneous Notes* Telephone Encounter - Anahi Galindo RN - 02/08/2025 11:27 AM EDT Pt called in and reports he was diagnosed with Pneumonia. He states he was on Zithromax and Augmentin and he finished them on Saturday. Pt states he has almost gotten rid of the cough, but he brought up a lot of clear phlegm this morning. He reports to still being very fatigued and has had a headachealmost this whole time. Pt reports Ibuprofen and Tylenol have helped alleviate the headache. Pt is still reporting lower abdominal pain, and has appointment with Dr Ortiz tomorrow morning. 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 Pt's could be heard I the background saying he wanted to make sure the Pneumonia had cleared up. Anahi Galindo RN documented in this encounterAs[facility]06-24-2025 Telephone encounter Note * Telephone Encounter - Trevin Bermeo MA - 02/02/2025 11:46 AM EDT Pt notified and verbalized understanding Trevin Bermeo MA [facility]06-24-[facility] Miscellaneous Notes* Telephone Encounter - Trevin Bermeo MA - 02/02/2025 11:46 AM EDT Pt notified and verbalized understanding Trevin Bermeo MA * Telephone Encounter - Deanne Shen APRN.CNP - 02/02/2025 10:00 AM EDT Please let patient know his chest xray shows a possible pneumonia. I have sent in prescriptions forsteroids and antibiotics. documented in this encounterAsht[facility]06-24-20[facility] Telephone encounter Note * Telephone Encounter - Deanne Shen APRN.CNP - 02/02/2025 10:00 AM EDT Please let patient know his chest xray shows a possible pneumonia. I have sent in prescriptions forsteroids and antibiotics. [facility]06-[facility] History of Present illness Narrative* Laci Barron RT(Merna) - 02/02/2025 9:00 AM EDT Radiology Service Progress Note PATIENT NAME: Luis Manuel Duran JR DATE OF SERVICE: February 02, 2025 TIME: 8:46 AM PATIENT IDENTITY VERIFICATION COMPLETED USING TWO (2) IDENTIFIERS: Name and Date of confirmedby patient verbally. FALL SCREENING: Has the patient had 2 falls in the last year or 1 fall with injury or currently using an Ambulatory Assistive Device (Walker, Cane, Wheelchair, Crutches, etc.)? No PATIENT GENDER DATA: Assigned male at PATIENT RELEVANT IMPLANT DATA REVIEWED: Yes PATIENT PRESENTS WITH AN IMPLANTABLE OR ATTACHED SENIOR NETWORK SECURITY ARCHITECT: No RADIOLOGY DEPARTMENT: General X-ray: Exam(s) Completed: Chest X-Ray PERIPHERAL IV DATA: Not applicable SIGNED BY: RT Codey(R) February 02, 2025 8:46 AM documented in this encounterAshtabula [facility]06-24-2025 NoteHNO ID: [id number] Author: LACI BARRON RT(R) Service: ? Author Type: Agriculture Mechanic Type: Progress Notes Filed: 02/02/2025 08:56 Note Text: Radiology Service Progress Note PATIENT NAME: Luis Manuel Duran JR DATE OF SERVICE: February 02, 2025 TIME: 8:46 AM PATIENT IDENTITY VERIFICATION COMPLETED USING TWO (2) IDENTIFIERS: Name and Date of confirmed by patient verbally. FALL SCREENING: Has the patient had 2 falls in the last year or 1 fall with injury or currently using an Ambulatory Assistive Device (Walker, Cane, Wheelchair, Crutches, etc.)? No PATIENT GENDER DATA: Assigned male at PATIENT RELEVANT IMPLANT DATA REVIEWED: Yes PATIENT PRESENTS WITH AN IMPLANTABLE OR ATTACHED SENIOR NETWORK SECURITY ARCHITECT: No RADIOLOGY DEPARTMENT: General X-ray: Exam(s) Completed: Chest X-Ray PERIPHERAL IV DATA: Not applicable SIGNED BY: JERO Alegre) February 02, 2025 8:46 [facility]06-24-2025 NoteHNO ID: [id number] Author: DEANNE SHEN APRN.MAMMOGRAPHER Service: ? Author Type: Nurse Practitioner Type: Progress Notes Filed: 02/02/2025 08:35 Note Text: Chief Complaint Patient presents with: Cough Nausea HPI Luis Manuel Duran JR is a 84 year old male who presents here today for Above Complaints.. Patient presents for continued chronic cough. Patient reports he called Pul and was given oral steroids and during that time his cough improved butt 2 days after stopping medication his cough returned. Saw pul 12/17 and has follow up in March. Past medical history, appointments, medications, allergies reviewed. Previous Medical History PAST MEDICAL HISTORY Diagnosis Date Advance directive discussed with patient 12/15/2021 Discussed 12/2021 Anemia of chronic disease 10/15/2013 Benign essential tremor 07/03/2010 BPH with obstruction/lower urinary tract symptoms 08/01/2005 Chronic diastolic congestive heart failure (HCC) 12/15/2021 seeing cardio CKD (chronic kidney disease) stage 4, GFR 15-29 ml/min (HCC) 03/04/2017 Coronary artery disease involving [place] coronary artery of [place] heart without angina pectoris 03/06/[address] Horton Cardio [facility] COVID-19 virus infection 05/29/2021 05/27/2021 Diaphragmatic hernia without mention of obstruction or gangrene Hiatal hernia Elevated alkaline phosphatase level 09/24/2023 Elevated bone fraction: NM bone scan 09/2023 was normal. Elevated PSA 03/11/2019 Esophagitis, unspecified ESRD (end stage renal disease) on dialysis (HCC) 07/11/2023 Essential hypertension, benign Ex-smoker 12/26/2020 Started age 18 up to 1.5 PPD and quit at age 35. 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 deficiency ([facility]) 10/15/2013 Living will on file 12/15/2021 DPA: Shea () Mild aortic stenosis 11/27/2021 Seeing Cardio Mixed hyperlipidemia 09/03/2013 Overweight (BMI 25.0-29.9) Parathyroid adenoma 05/27/2013 parathyroidectomy 05/27/13 Personal history of colonic polyps Colon polyps Primary hyperparathyroidism ([facility]) 03/04/2017 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: 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 S/P TAVR (transcatheter aortic valve replacement) 01/29/202501/2025 TIA (transient ischemic attack) 06/2010 Ulcer of esophagus without bleeding Vitamin D deficiency 10/15/2013 Previous Surgical History PAST SURGICAL HISTORY Procedure Laterality Date BX/EXC LYMPH NODE OPEN SUPERFICIAL CC CORONARY STENT 11/18/2023 2 stents to Left Circ COLONOSCOPY 12/22/2019 COLONOSCOPY FLX DX W/COLLJ SPEC WHEN PFRMD 08/2000 Colonoscopy COLONOSCOPY FLX DX W/COLLJ SPEC WHEN PFRMD 10/19/2008 EGD 06/11/2024 EGD TRANSORAL BIOPSY SINGLE/MULTIPLE 10/19/2008 ESOPHAGOGASTRODUODENOSCOPY TRANSORAL DIAGNOSTIC ESOPHAGOGASTRODUODENOSCOPY TRANSORAL DIAGNOSTIC 12/22/[address] Marcial LAPAROSCOPIC HERNIA REPAIR Right 05/21/2018 recurrent incarcerated direct right inguinal hernia PARATHYROIDECTOMY/EXPLORATION PARATHYROIDS 05/27/2013 Parathyroid adenoma PAST SURGICAL HISTORY OF 01/20/2021 supraumbilical ventral hernia RPR 1ST INGUN HRNA AGE 5 YRS/> REDUCIBLE Hernia repair, inguinal BILATERAL TAVR 01/2025 Family History FAMILY HISTORY Problem Relation Age of Onset Colon Cancer Mother Colon Cancer Father Arthritis Mother Heart Father SD * 2 Prostate Cancer Brother Hypertension Brother None Brother Patient Allergies ALLERGIES Allergen Reactions Axid [Nizatidine] Unknown Entex Pse [Pseudoep* Unknown Lisinopril Cough Current Medications Current Outpatient Medications on File Prior to Visit Medication Sig guaiFENesin (MUCINEX) 1,200 mg Ta12 Take 1 tablet by mouth once daily. ARNUITY ELLIPTA 200 mcg/actuation inhaler Inhale 1 puff as instructed once daily. fluticasone (FLONASE) 50 mcg/actuation nasal spray Use 1 spray in each nostril once daily. atorvastatin (LIPITOR) 40 mg tablet Take 1 tablet by mouth once daily. For cholesterol. albuterol HFA (PROVENTIL HFA, VENTOLIN HFA) 90 mcg/actuation inhaler Inhale 2 Puffs as instructed every 4 hours as needed for wheezing/shortness of breath. finasteride (PROSCAR) 5 mg tablet Take 5 mg by mouth once daily. lansoprazole (PREVACID) 30 mg capsule Take 1 capsule by mouth once daily. calcium acetate,phosphat bind, (PHOSLO) 667 mg capsule clopidogrel (PLAVIX) 75 mg tablet Take 1 tablet by mouth every afternoon. calcium citrate (CALCITRATE) 200 mg (950 mg) tab Take 1 tablet by mouth four times daily. nitroglycerin sublingual (NITROSTAT) 0.4 mg SL tablet Dissolve 1 tablet under the tongue every 5 minutes as needed. aspirin, enteric coated (ASPIRIN, ENTERIC COATED) 81 mg EC (more content not included)...[facility]06-24-2025 History of Present illness Narrative* Deanne Shen APRN.MAMMOGRAPHER - 02/02/2025 8:14 AM EDT Chief Complaint Patient presents with: Cough Nausea HPI Luis Manuel Duran JR is a 84 year old male who presents here today for Above Complaints.. Patient presents for continued chronic cough. Patient reports he called Pulm and was given oral steroids and during that time his cough improved butt 2 days after stopping medication his cough returned. Saw iesha 12/17 and has follow up in March. Past medical history, appointments, medications, allergies reviewed. 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 Horton Cardio [facility] COVID-19 virus infection 05/29/2021 05/27/2021 Diaphragmatic hernia without mention of obstruction or gangrene Hiatal hernia Elevated alkaline phosphatase level 09/24/2023 Elevated bone fraction: NM bone scan 09/2023 was normal. Elevated PSA 03/11/2019 Esophagitis, unspecified ESRD (end stage renal disease) on dialysis ([facility]) 07/11/2023 Essential hypertension, benign Ex-smoker 12/26/2020 Started age 18 up to 1.5 PPD and quit at age 35. Family history of malignant neoplasm of gastrointestinal tract GERD without esophagitis Gastroesophageal reflux Heart attack ([facility]) 2023 History of COVID-19 05/29/2021 05/27/2021 History of non-ST elevation myocardial infarction (NSTEMI) 03/06/2018 09/06/14-- stent 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 deficiency ([facility]) 10/15/2013 Living will on file 12/15/2021 DPA: Shea () Mild aortic stenosis 11/27/2021 Seeing Cardio Mixed hyperlipidemia 09/03/2013 Overweight (BMI 25.0-29.9) Parathyroid adenoma 05/27/2013 parathyroidectomy 05/27/13 Personal history of colonic polyps Colon polyps Primary hyperparathyroidism ([facility]) 03/04/2017 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: 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 S/P TAVR (transcatheter aortic valve replacement) 01/29/202501/2025 TIA (transient ischemic attack) 06/2010 Ulcer of esophagus without bleeding Vitamin D deficiency 10/15/2013 Previous Surgical History PAST SURGICAL HISTORY Procedure Laterality Date BX/EXC LYMPH NODE OPEN SUPERFICIAL CC CORONARY STENT 11/18/2023 2 stents to Left Circ COLONOSCOPY 12/22/2019 COLONOSCOPY FLX DX W/COLLJ SPEC WHEN PFRMD 08/2000 Colonoscopy COLONOSCOPY FLX DX W/COLLJ SPEC WHEN PFRMD 10/19/2008 EGD 06/11/2024 EGD TRANSORAL BIOPSY SINGLE/MULTIPLE 10/19/2008 ESOPHAGOGASTRODUODENOSCOPY TRANSORAL DIAGNOSTIC ESOPHAGOGASTRODUODENOSCOPY TRANSORAL DIAGNOSTIC 12/22/[address] Marcial LAPAROSCOPIC HERNIA REPAIR Right 05/21/2018 recurrent incarcerated direct right inguinal hernia PARATHYROIDECTOMY/EXPLORATION PARATHYROIDS 05/27/2013 Parathyroid adenoma PAST SURGICAL HISTORY OF 01/20/2021 supraumbilical ventral hernia RPR 1ST INGUN HRNA AGE 5 YRS/> REDUCIBLE Hernia repair, inguinal BILATERAL TAVR 01/2025 Family History FAMILY HISTORY Problem Relation Age of Onset Colon Cancer Mother Colon Cancer Father Arthritis Mother Heart Father SD * 2 Prostate Cancer Brother Hypertension Brother None Brother Patient Allergies ALLERGIES Allergen Reactions Axid [Nizatidine] Unknown Entex Pse [Pseudoep* Unknown Lisinopril Cough Current Medications Current Outpatient Medications on File Prior to Visit Medication Sig guaiFENesin (MUCINEX) 1,200 mg Ta12 Take 1 tablet by mouth once daily. ARNUITY ELLIPTA 200 mcg/actuation inhaler Inhale 1 puff as instructed once daily. fluticasone (FLONASE) 50 mcg/actuation nasal spray Use 1 spray in each nostril once daily. atorvastatin (LIPITOR) 40 mg tablet Take 1 tablet by mouth once daily. For cholesterol. albuterol HFA (PROVENTIL HFA, VENTOLIN HFA) 90 mcg/actuation inhaler Inhale 2 Puffs as instructed every 4 hours as needed for wheezing/shortness of breath. finasteride (PROSCAR) 5 mg tablet Take 5 mg by mouth once daily. lansoprazole (PREVACID) 30 mg capsule Take 1 capsule by mouth once daily. calcium acetate,phosphat bind, (PHOSLO) 667 mg capsule clopidogrel (PLAVIX) 75 mg tablet Take 1 tablet by mouth every afternoon. calcium citrate (CALCITRATE) 200 mg (950 mg) tab Take 1 tablet by mouth four times daily. nitroglycerin sublingual (NITROSTAT) 0.4 mg SL tablet Dissolve 1 tablet under the tongue every 5 minutes as needed. aspirin, enteric coated (ASPIRIN, ENTERIC COATED) 81 mg EC tablet Take 1 tablet by mouth once daily. No current facility-administered medications on file prior to visit. Social History Social History Tobacco Use Smoking status: Former Types: Cigarettes Smokeless tobacco: Never Tobacco comments: quit 1976 Vaping Use Vaping status: Never Used Substance Use Topics Alcohol use: Yes Alcohol/week: 1.0 standard drink of alcohol Types: 1 Standard drinks or equivalent per week Comment: very little Drug use: No Review of Symptoms REVIEW OF SYSTEMS SEE HPI EXAM: BP 133/60 Pulse 79 Wt 78 kg (171 lb 15.3 oz) SpO2 93% BMI 26.93 kg/m General Appearance: Well appearing, alert, in no acute distress, well-hydrated, well nourished.. Lungs: Positive findings: rhonchi Shortness of breath: At rest Cough. Heart: RRR without murmur, gallop, or rubs. No ectopy. Health Maintenance List Shingrix Vaccine(1 of 2) due on 09/22/2025 Covid-19 Vaccine() due on 09/22/2025 LDL Cholesterol due on 09/17/2025 Depression Screening due on 09/22/2025 Anxiety Screening due on 09/22/2025 Diabetes Screening due on 09/17/2027 DTaP,Tdap,Td Vaccine(5 - Td or Tdap) due on 11/01/2028 Influenza Vaccine Completed RSV Vaccine Completed Medicare Advantage Annual Wellness Visit Completed Pneumococcal Vaccine: 50+ Completed Hepatitis B Vaccine Discontinued Colorectal Cancer Screening Discontinued Advance Directive Discussion Discontinued ASSESSMENT/PLAN: 1. SOB (shortness of breath) - ICD9: 786.05, ICD10: R06.02 (primary diagnosis) - CONSULT TO PULMONARY MEDICINE - XR CHEST 2V FRONTAL/LAT 2. Wheezing - ICD9: 786.07, ICD10: R06.2 - CONSULT TO PULMONARY MEDICINE - XR CHEST 2V FRONTAL/LAT 3. Nausea - ICD9: 787.02, ICD10: R11.0 - CONSULT TO GASTROENTEROLOGY 4. Gastritis without bleeding, unspecified chronicity, unspecified gastritis type - ICD9: 535.50, ICD10: K29.70 - CONSULT TO GASTROENTEROLOGY Deanne Shen APRN.MAMMOGRAPHER documented in this encounterAsht[facility]ula [facility]06-20-2025 NoteHNO ID: [id number] Author: FRANCIS IRIZARRY MA Service: ? Author Type: Partnership Manager Type: Progress Notes Filed: 01/29/2025 13:36 Note Text: Scan on 12/31/2024 6:36 AM by ProviderVenessa PA-C: Cardiac Procedure Francis Irizarry [facility]06-20-2025 History of Present illness Narrative* Francis Irizarry MA - 01/29/2025 1:35 PM EDT Scan on 12/31/2024 6:36 AM by Provider, JOVITA Clifford: Cardiac Procedure Francis Irizarry MA documented in this encounterAshtabula [facility]05-21-2025 Note Discharge Instructions Thank you for allowing [facility] to assist you with your healthcare needs. The following is importantdischarge information regarding your hospital visit. Your Care Team JULIO LICEA MD Your Diagnosis CAD IN [place] ART[place] ESRD on dialysis First degree AV block Gross hematuria HYPERTENSION, BENIGN RBBB S/P TAVR (transcatheter aortic valve replacement) Severe aortic stenosis What to do next Instructions From Your Doctor - No heavy lifting, pushing, or pulling more than 10 lb for 10-14 days - May shower starting tomorrow. No tub bathing/swimming pool/hot tub until groin site completely healed - Wash groin sites at least once a day with new washcloth and antibacterial soap for 1 week or until healed - Do not apply any cream, powder, or lotion to area until completely healed - If present, may remove dressings on groin sites while in shower tomorrow. May leave open to air or cover with loose gauze dressing - If you did not receive an envelope prior to discharge, you will be called/mailed information for follow-up testing (echocardiogram and lab work) to be done before your follow-up visit. Lab work should be done around the same time as your echocardiogram and can be done at any lab. - STOP these medications: metoprolol - Continue your aspirin and Plavix - Due to your tissue heart valve you will need to take antibiotics prior to any dental work. A prescription was sent to your pharmacy. Take one hour prior to any dental work - Please call Bernice (RN valve coordinator) [phone] or Mitch (nurse practitioner) [phone] with questions/concerns regarding procedure or follow-up. Scheduled Follow-Up Appointments Appointment Type When Where Contact Information StatusEcho - Echocardiogram Adult 01/26/2025 01:00 PM EDT [facility] [phone] Confirmed Follow Up Appointments Follow Up with [facility]hab- [facility] Where:[facility] [address] [place] [address]- Additional Information: The Cardiac Rehab department will call you to schedule you for phase 2. We left you a brochure with information about cardiac rehab. If you have any questions please call [phone]. Follow Up with JANN ALLEN MD When:In 4 weeks Where:[address] [facility] [place] [address]- [phone] Additional Information: TAVR follow-up. Echo and labs prior to office visit as scheduled Follow Up with Echocardiogram When:In 4 weeks Additional Information: This department is located in the first floor lobby of the [facility]. Please have lab work done around the same time, prior to your office visit. The Following Activity and Diet Have Been Ordered for You No qualifying data available. No qualifying data available. The Following Equipment Has Been Ordered for You No qualifying data available. The Following Treatments Have Been Ordered for You Discharge Labs No qualifying data available. Discharge Radiology No qualifying data available. Other Therapies No qualifying data available. Post Acute Orders No qualifying data available. Someone Will Contact You Regarding These Home Health Referrals No home referrals have been ordered for you. No one will call you. Allergies lisinopril Cough Medications Please ask your primary doctor or pharmacist before taking any other medication not listed, including over the counter drugs, herbal medications, vitamins and or supplements as they may interact withyour home medications. What How Much When Why Instructions Last Dose Unchanged aspirin (aspirin 81 mg oral delayed releasetablet) 1 tab(s) by mouth Every day Duration: 90 Days Unchanged atorvastatin (atorvastatin 40 mg oral tablet) 1 tab(s) by mouth Daily at bedtime Duration: 90 Days Unchanged calcium acetate (calcium acetate 667 mg oral capsule) 2 cap by mouth Three (3) times a day before meals Unchanged clopidogrel (Plavix 75 mg oral tablet) 1 tab(s) by mouth Once a day Duration: 90 Days Unchanged finasteride (finasteride 5 mg oral tablet) 1 tab(s) by mouth Every other day Gross hematuria Duration: 90 Days Unchanged fluticasone (Arnuity Ellipta 200 mcg/ inh inhalation powder) 1 inh by inhalation Every 24 hours Unchanged fluticasone nasal (fluticasone proprionate NASAL 50 mcg/ spray) 1 spray(s) each nostril Every day Unchanged isosorbide mononitrate (isosorbide mononitrate 30 mg oral tablet, extended release) 1 tab(s) by mouth Once a day (in the morning) , , sat and saturday Unchanged nitroGLYcerin (nitroglycerin 0.4 mg sublingual tablet) 1 tab(s) under the tongue Every 5 minutes as needed for for chest pain Unchanged pantoprazole (pantoprazole 40 mg oral enteric coated tablet) 1 tab(s) by mouth Once a day What How Much When Comments Stop Taking metoprolol (metoprolol succinate 25 mg oral TABLET extendedrelease) 1 tab(s) by mouth Once a day Do not crush or chew (controlled release) Please take this list to your next doctor s visit. Bring all medications you take, including over the counter medications, herbals and other supplements with you to your doctor s visit. Patients and families are reminded to discard old lists and to update any records with all medication providers or retail pharmacies. Education Materials Steps to Quit Smoking Smoking tobacco is the leading cause of preventable . It can affect almost every organ in the body. Smoking puts you and people around you at risk for many serious, long-lasting (chronic) diseases. Quitting smoking can be hard, but it is one of the best things that you can do for your health. It is never too late to quit. How do I get ready to quit? When you decide to quit smoking, make a plan to help you succeed. Before you quit: Pick a date to quit. Set a date within the next 2 weeks to give you time to prepare. Write down the reasons why you are quitting. Keep this list in places where you will see it often. Tell your family, friends, and co-workers that you are quitting. Their support is important. Talk with your doctor about the choices that may help you quit. Find out if your health insurance will pay for these treatments. Know the people, places, things, and activities that make you want to smoke (triggers). Avoid them. What first steps can I take to quit smoking? Throw away all cigarettes at home, at work, and in your car. Throw away the things that you use when you smoke, such as ashtrays and lighters. Clean your car. Make sure to empty the ashtray. Clean your home, including curtains and carpets. What can I do to help me quit smoking? Talk with your doctor about taking medicines and seeing a counselor at the same time. You are more likely to succeed when you do both. If you are or , talk with your doctor about counseling or other ways to quit smoking. Do not take medicine to help you quit smoking unless your doctor tells you to do so. To quit smoking: Quit right away Quit smoking totally, instead of slowly cutting back on how much you smoke over a period of time. Go to counseling. You are more likely to quit if you go to counseling sessions regularly. Take medicine You may take medicines to help you quit. Some medicines need a prescription, and some you can buy [id number]. Some medicines may contain a drug called nicotine to replace the nicotine in cigarettes. Medicines may: Help you to stop having the desire to smoke (cravings). Help to stop the problems that come when you stop smoking (withdrawal symptoms). Your doctor may ask you to use: Nicotine patches, gum, or lozenges. Nicotine inhalers or sprays. Non-nicotine medicine that is taken by mouth. Find resources Find resources and other ways to help you quit smoking and remain smoke-free after you quit. These resources are most helpful when you use them often. They include: Online chats with a counselor. Phone quitlines. Printed self-help materials. Support groups or group counseling. Text messaging programs. Mobile phone apps. Use apps on your mobile phone or tablet that can help you stick to your quit plan. There are many free apps for mobile phones and tablets as well as websites. Examples include QuitGuide from the CDC and smokefree.gov What things can I do to make it easier to quit? Talk to your family and friends. Ask them to support and encourage you. Call a phone quitline (2-995-PBYL-NOW), reach out to support groups, or work with a counselor. Ask people who smoke to not smoke around you. Avoid places that make you want to smoke, such as: ? Bars. ? Parties. ? Smoke-break areas at work. Spend time with people who do not smoke. Lower the stress in your life. Stress can make you want to smoke. Try these things to help your stress: ? Getting regular exercise. ? Doing deep-breathing exercises. ? Doing yoga. ? Meditating. ? Doing a body scan. To do this, close your eyes, focus on one area of your body at a time from head to toe. Notice which parts of your body are tense. Try to relax the muscles in those areas. How will I feel when I quit smoking? Day 1 to 3 weeks Within the first 24 hours, you may start to have some problems that come from quitting tobacco. These problems are very bad 2 3 days after you quit, but they do not often last for more than 2 3 weeks. You may get these symptoms: Mood swings. Feeling restless, nervous, angry, or annoyed. Trouble concentrating. Dizziness. Strong desire for high-sugar foods and nicotine. Weight gain. Trouble pooping (constipation). Feeling like you may vomit (nausea). Coughing or a sore throat. Changes in how the medicines that you take for other issues work in your body. Depression. Trouble sleeping (insomnia). Week 3 and afterward After the first 2 3 weeks of quitting, you may start to notice more positive results, such as: Better sense of smell and taste. Less coughing and sore throat. Slower heart rate. Lower blood pressure. Clearer skin. Better breathing. Fewer sick days. Quitting smoking can be hard. Do not give up if you fail the first time. Some people need to try a few times before they succeed. Do your best to stick to your quit plan, and talk with your doctor ifyou have any questions or concerns. Summary Smoking tobacco is the leading cause of preventable . Quitting smoking can be hard, but it is one of the best things that you can do for your health. When you decide to quit smoking, make a plan to help you succeed. Quit smoking right away, not slowly over a period of time. When you start quitting, seek help from your doctor, family, or friends. This information is not intended to replace advice given to you by your health care provider. Make sure you discuss any questions you have with your health care provider. Document Released: 05/25/2010 Document Revised: 10/16/2019 Document Reviewed: 10/17/2019 [employer] Patient Education 2020 [employer]. Coping with Quitting Smoking Quitting smoking is a physical and mental challenge. You will face cravings, withdrawal symptoms, and temptation. Before quitting, work with your health care provider to make a plan that can help youcope. Preparation can help you quit and keep you from giving in. How can I cope with cravings? Cravings usually last for 5 10 minutes. If you get through it, the craving will pass. Consider taking the following actions to help you cope with cravings: Keep your mouth busy: ? Chew sugar-free gum. ? Suck on hard candies or a straw. ? Harvest your teeth. Keep your hands and body busy: ? Immediately change to a different activity when you feel a craving. ? Squeeze or play with a ball. ? Do an activity or a hobby, like making bead jewelry, practicing needlepoint, or working with wood. ? Mix up your normal routine. ? Take a short exercise break. Go for a quick walk or run up and down stairs. ? Spend time in public places where smoking is not allowed. Focus on doing something kind or helpful for someone else. Call a friend or family member to talk during a craving. Join a support group. Call a quit line, such as 3-239-XQYT-NOW. Talk with your health care provider about medicines that might help you cope with cravings and makequitting easier for you. How can I deal with withdrawal symptoms? Your body may experience negative effects as it tries to get used to not having nicotine in the system. These effects are called withdrawal symptoms. They may include: Feeling hungrier than normal. Trouble concentrating. Irritability. Trouble sleeping. Feeling depressed. Restlessness and agitation. Craving a cigarette. To manage withdrawal symptoms: Avoid places, people, and activities that trigger your cravings. Remember why you want to quit. Get plenty of sleep. Avoid coffee and other caffeinated drinks. These may worsen some of your symptoms. How can I handle social situations? Social situations can be difficult when you are quitting smoking, especially in the first few weeks. To manage this, you can: Avoid parties, bars, and other social situations where people might be smoking. Avoid alcohol. Leave right away if you have the urge to smoke. Explain to your family and friends that you are quitting smoking. Ask for understanding and support. Plan activities with friends or family where smoking is not an option. What are some ways I can cope with stress? Wanting to smoke may cause stress, and stress can make you want to smoke. Find ways to manage your stress. Relaxation techniques can help. For example: Breathe slowly and deeply, in through your nose and out through your mouth. Listen to soothing, relaxing music. Talk with a family member or friend about your stress. Light a candle. Soak in a bath or take a shower. Think about a peaceful place. What are some ways I can prevent weight gain? Be aware that many people gain weight after they quit smoking. However, not everyone does. To keep from gaining weight, have a plan in place before you quit and stick to the plan after you quit. Yourplan should include: Having healthy snacks. When you have a craving, it may help to: ? Eat plain popcorn, crunchy carrots, celery, or other cut vegetables. ? Chew sugar-free gum. Changing how you eat: ? Eat small portion sizes at meals. ? Eat 4 6 small meals throughout the day instead of 1 2 large meals a day. ? Be mindful when you eat. Do not watch television or do other things that might distract you as you eat. Exercising regularly: ? Make time to exercise each day. If you do not have time for a long workout, do short bouts of exercise for 5 10 minutes several times a day. ? Do some form of strengthening exercise, like weight lifting, and some form of aerobic exercise, like running or swimming. Drinking plenty of water or other low-calorie or no-calorie drinks. Drink 6 8 glasses of water daily, or as much as instructed by your health care provider. Summary Quitting smoking is a physical and mental challenge. You will face cravings, withdrawal symptoms, and temptation to smoke again. Preparation can help you as you go through these challenges. You can cope with cravings by keeping your mouth busy (such as by chewing gum), keeping your body and hands busy, and making calls to family, friends, or a helpline for people who want to quit smoking. You can cope with withdrawal symptoms by avoiding places where people smoke, avoiding drinks with caffeine, and getting plenty of rest. Ask your health care provider about the different ways to prevent weight gain, avoid stress, and handle social situations. This information is not intended to replace advice given to you by your health care provider. Make sure you discuss any questions you have with your health care provider. Document Released: 07/26/2017 Document Revised: 07/11/2018 Document Reviewed: 07/26/2017 [employer] Patient Education 2020 [employer]. TRANSCATHETER AORTIC VALVE REPLACEMENT (TAVR) Discharge Instructions DIET INSTRUCTIONS Resume your previous diet as tolerated Drink plenty of fluids for the next 48 hours to help your kidneys flush the dye out of your system ACTIVITIES May go up and down stairs CAREFULLY AFTER [address] FOR 5 DAYS AFTER PROCEDURE No heavy lifting GREATER THAN 10 POUNDS or pushing or straining FOR 5 DAYS Someone must stay with you at home after the procedure FOR 3 DAYS BATHING/SHOWERING May tub bathe in 1 week May shower tomorrow, but cover groin incisions with plastic for 3 days after procedure WOUND CARE You will go home with a Band-Aid over your catheter insertion site. Keep a Band- Aid on for the next24 hours and then leave open to air. Some degree of bruising and tenderness is normal around the catheter insertion site. It will take awhile for any bruising to completely resolve. Keep your site clean and dry. You need to report the following to your post anesthesia nurse: Any draining or oozing from the site Any swelling at the site Any increased pain or tenderness at the site Any numbness in your leg where the procedure was done Any signs of infection IMPORTANT! CALL 911 FOR ANY BLEEDING OR SWELLING AT THE PROCEDURE SITE If there is any large amount of bleeding, you or someone else need to apply direct pressure to the site (just like the nurse did in the heart lab after your procedure). It is very important that you hold constant pressure. Do not release the pressure to check if the bleeding has stopped. You then need to be transported to the nearest emergency room. WATCH FOR SIGNS OF INFECTION (Usually appears 36-48 hours after surgery) A temperature above 100.5 Redness or swelling Increased pain Foul odor or drainage If you have any questions, please call your doctor at the number listed on your follow up instructions. CONTACT YOUR CARDIOLOGY OFFICE FOR A PRESCRIPTION FOR ANTIBIOTICS PRIOR TO ANY DENTAL PROCEDURE! Follow all instructions given to you by your doctor Additional Information VACCINATE! IT SAVES LIVES! Members of the community who have not yet received the COVID-19 vaccine and would like to receive it can visit one of [facility] vaccine clinics. There are many vaccine clinic locations within the [facility]. For locations and available times, please visit [email or web address] It is important to note that some COVID mobile vaccine clinics are held outdoors and may be canceled in rainy or stormy conditions. To learn more about pediatric vaccinations (ages 5-11), we invite you to visit the [facility] webpage. [email or web address]/[email or web address]-[email or web address] [email or web address] learn more about the COVID-19 vaccine, we invite you to visit the CDC website for a list of frequently asked questions.https://www.cdc.gov/coronavirus/2019-ncov/vaccines/faq.html [facility] Patient Portal Access Instructions: Stay connected with your healthcare team and access your personal medical information anytime with the [facility] Patient Portal. Please follow the directions below to create your [facility] account: 1.Access the email account you provided upon registration to the hospital/physician office.2.Look for an invitation email from [facility].3.Open the email and access the invitation link: AcceptInvitation to [facility].4.Fill in the required wilkinson to create your account. To access your account, visit [facility] | [email or web address]. Click the blue button labeled Access Patient Portal and then log in with the username and password that you created in the steps above. You will be able to view your test results, lab results, a summary of your visits, upcoming appointments and more. There is also a convenient messaging option where you can send secure messages to your p rovider. In addition, you will have the ability to download any documents or summaries to your computer and/or send the information securely to a physician. Remember that your healthcare information is confidential, so carefully consider who you will allowto register on the [facility] Patient Portal for access to your information. You can also access the [facility] on the [place] [facility]. Simply click on Patient Portal and then log into your account. If you would like to receive a full copy of your medical records, please contact the [facility] Medical Records Department by calling [phone], Saturday through Saturday between 8 a.m. and 4:30 p.m. HOW TO SAFELY DISPOSE OF PRESCRIPTION MEDICATIONS Please use one of the following methods to safely dispose of your unused medications. 1.Use a drug disposal kit: the drug disposal pouch allows you to safely discard your old and unuseddrugs. Ask your nurse to give you one when you are discharged.2.Visit a local take-back location: Many local pharmacies and police departments have programs that collect old and unwanted prescriptiondrugs. Call your local pharmacy or go to http://Evo.com/[email or web address] to find one close to you.3.Make use of household items: Use cat litter or old coffee grounds to dispose medications if other options arenot available. Mix your drugs with these household products, seal them in an airtight container andthrow it into the garbage. Call [facility]: [phone] to be sure your drugs can be disposed of in this way. Some medicines may require a different approach.4.Never flush your medications down the toilet. IF YOU HAVE BEEN PRESCRIBED AN OPIOID FOR PAIN If you have been prescribed an opioid (such as hydrocodone, oxycodone or morphine), it is critical to understand the possible side effects and risks of opioid pain medications. Even when taken as directed, opioids can have several side effects including: Tolerance, meaning you might need to take more of a medication for the same pain relief. Nausea, vomiting and/or constipation. Sleepiness, dizziness, dry mouth, confusion, depression or itching. Physical dependence, meaning you have withdrawal symptoms when a medication is stopped, can develop within a few days. KNOW YOUR RESPONSIBILITIES It is important to know exactly how much and how often to take the opioid pain medications you are prescribed. Never take opioids in higher amounts or more often than prescribed. Do not combine opioids with alcohol or other drugs that cause drowsiness, such as benzodiazepines, also known as benzos, including diazepam and alprazolam, muscle relaxants or sleep aids. Never sell or share prescription opioids. This is illegal. Store opioids in a secure place and out of reach of others (including children, family, friends and visitors). The last page of this document has been signed and retained as a CHART COPY. Signatures Patient Education Materials Steps to Quit Smoking, Eyfc-ek-Pgav Coping with Quitting Smoking 3- SH TRANSCATHETER AORTIC VALVE REPLACEMENT (TAVR) Discharge Instructions 08/26/2018(CUSTOM) Medication Leaflets My discharge plan and instructions have been reviewed and explained to me and IROGER LUIS MANUEL Guzman understand my current condition and have read and understand these discharge instructions. I have received a written copy of the plan/instructions. If I have questions, I am aware that I should contact my doctor. 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 No complaints. No cramps. No lightheadedness. Blood pressure stable. Objective Vitals and Measurements T: 36.7 C (Skin) TMIN: 36.7 C (Skin) TMAX: 37.8 C (Oral) HR: 71 (Monitored) RR: 17 BP: 128/72 SpO2:94% WT: 78.0 kg Intake and Output 7AM Yesterday to 7AM Today Intake and Output (Last 24 hours) Intake Oral Intake 440.00 Supplement Intake 240.00 Output Urine Voided 50.00 Hemodialysis 2000.00 Urine Count 2.00 Total Summary Total Intake 680.00 Total Output 2050.00 Fluid Balance -1370.00 Physical Exam General: No distress on room air. Patient seen in dialysis HEENT: Mucosa was moist, sclera anicteric, extraocular muscles intact, neck veins were flat, no carotid bruits Lungs: Clear bilaterally with no crackles wheezes or rhonchi Heart: Regular with ectopy. Access: Right arm AV fistula with positive bruit and thrill Abdomen: Positive bowel sounds, soft, no palpable masses Extremities: No edema, pulses 1+ in all 4 extremities Skin: No rashes, normal turgor Weight Current Weight Dosing Weight: 78 kg (12/30/24) Current Weight: 78 kg (12/30/24) Dosing Weight: 78 kg (12/29/24) Medications Medications (16) Active Scheduled: (8) aspirin 81 mg EC 81 mg 1 tab(s), Oral, Daily atorvastatin 40 mg tablet 40 mg 1 tab(s), Oral, qHS budesonide 0.5 mg/2 mL Susp UD 0.5 mg 2 mL, Inhalation, BIDRT clopidogrel 75 mg Tablet 75 mg 1 tab(s), Oral, qDay finasteride 5 mg tablet 5 mg 1 tab(s), Oral, Every other day fluticasone nasal 0.05 mg/inh Pierre 50 mcg 1 spray(s), Nostril, each, Daily isosorbide mononitrate 30 mg ER tablet 30 mg 1 tab(s), Oral, Sun/Tues/Thurs/Sat pantoprazole 40 mg EC tablet 40 mg 1 tab(s), Oral, qDay Continuous: (0) PRN: (8) acetaminophen 325 mg Tablet 650 mg 2 tab(s), Oral, q4h acetaminophen-HYDROcodone 325-10 mg tablet 1 tab(s), Oral, q4h acetaminophen-HYDROcodone 325-5 mg tablet 1 tab(s), Oral, q4h dextrose 50% Solution Disp syringe 50 mL 25 gram(s) 50 mL, IV Push, AsDirected hydralazine 20 mg/mL (1mL) vial 5 mg 0.25 mL, IV Push, Once melatonin 3 mg tablet 3 mg 1 tab(s), Oral, qHS morphine 2 mg/mL 1 mL syringe 2 mg 1 mL, IV Push, q3h ondansetron 2 mg/ 1 mL 2 mL INJ 4 mg 2 mL, IV Push, q4h Lab Results 12/30 02:47 WBC: 7.4 Hgb: 9.9 L Hct: 29.9 L Platelet: 177 Neutrophil %: 76.1 H Protime: 12.0 PT International Ratio: 1.0 Glucose Level: 96 Sodium Level: 137 Potassium Level: 4.6 BUN: 57.0 H Creatinine Lvl (s): 6.91 H 12/29 12:45 WBC: 6.5 Hgb: 9.8 L Hct: 30.5 L Platelet: 188 Neutrophil %: 68.9 Glucose Level: 91 Sodium Level: 139 Potassium Level: 4.2 BUN: 43.0 H Creatinine Lvl (s): 6.04 H EKG Electrocardiogram (EKG) - [facility]Process -- 12/30/24 6:00:00 EDT Assessment/Plan 1. End-stage renal disease: Dialysis on Wednesdays and Fridays. Dialysis today. 2 L off. Blood pressure stable. Tolerating procedure. 2. Aortic stenosis: Patient underwent TAVR 12/29.. Currently asymptomatic. 3. Hypertension: Patient takes metoprolol as an outpatient. Currently on as needed hydralazine. Manage volume with dialysis. 4. Anemia: Patient will continue SOPHIE's with dialysis. Digitally Signed by AJNA SINGH MD on 12/30/2024 01:04 PM [facility] [id number] Hospital Discharge instructions Patient Education 12/30/2024 08:28:20 Steps to Quit Smoking, Drty-uf-[id number] Steps to Quit Smoking Smoking tobacco is the leading cause of preventable . It can affect almost every organ in the body. Smoking puts you and people around you at risk for many serious, long-lasting (chronic) diseases. Quitting smoking can be hard, but it is one of the best things that you can do for your health. It is never too late to quit. How do I get ready to quit? When you decide to quit smoking, make a plan to help you succeed. Before you quit: Pick a date to quit. Set a date within the next 2 weeks to give you time to prepare. Write down the reasons why you are quitting. Keep this list in places where you will see it often. Tell your family, friends, and co-workers that you are quitting. Their support is important. Talk with your doctor about the choices that may help you quit. Find out if your health insurance will pay for these treatments. Know the people, places, things, and activities that make you want to smoke (triggers). Avoid them. What first steps can I take to quit smoking? Throw away all cigarettes at home, at work, and in your car. Throw away the things that you use when you smoke, such as ashtrays and lighters. Clean your car. Make sure to empty the ashtray. Clean your home, including curtains and carpets. What can I do to help me quit smoking? Talk with your doctor about taking medicines and seeing a counselor at the same time. You are more likely to succeed when you do both. If you are or , talk with your doctor about counseling or other ways to quit smoking. Do not take medicine to help you quit smoking unless your doctor tells you to do so. To quit smoking: Quit right away Quit smoking totally, instead of slowly cutting back on how much you smoke over a period of time. Go to counseling. You are more likely to quit if you go to counseling sessions regularly. Take medicine You may take medicines to help you quit. Some medicines need a prescription, and some you can buy [id number]. Some medicines may contain a drug called nicotine to replace the nicotine in cigarettes. Medicines may: Help you to stop having the desire to smoke (cravings). Help to stop the problems that come when you stop smoking (withdrawal symptoms). Your doctor may ask you to use: Nicotine patches, gum, or lozenges. Nicotine inhalers or sprays. Non-nicotine medicine that is taken by mouth. Find resources Find resources and other ways to help you quit smoking and remain smoke-free after you quit. These resources are most helpful when you use them often. They include: Online chats with a counselor. Phone quitlines. Printed self-help materials. Support groups or group counseling. Text messaging programs. Mobile phone apps. Use apps on your mobile phone or tablet that can help you stick to your quit plan. There are many free apps for mobile phones and tablets as well as websites. Examples include QuitGuide from the CDC and smokefree.gov What things can I do to make it easier to quit? Talk to your family and friends. Ask them to support and encourage you. Call a phone quitline (-NOW), reach out to support groups, or work with a counselor. Ask people who smoke to not smoke around you. Avoid places that make you want to smoke, such as: ?Bars. ?Parties. ?Smoke-break areas at work. Spend time with people who do not smoke. Lower the stress in your life. Stress can make you want to smoke. Try these things to help your stress: ?Getting regular exercise. ?Doing deep-breathing exercises. ?Doing yoga. ?Meditating. ?Doing a body scan. To do this, close your eyes, focus on one area of your body at a time from headto toe. Notice which parts of your body are tense. Try to relax the muscles in those areas. How will I feel when I quit smoking? Day 1 to 3 weeks Within the first 24 hours, you may start to have some problems that come from quitting tobacco. These problems are very bad 2 3 days after you quit, but they do not often last for more than 2 3 weeks. You may get these symptoms: Mood swings. Feeling restless, nervous, angry, or annoyed. Trouble concentrating. Dizziness. Strong desire for high-sugar foods and nicotine. Weight gain. Trouble pooping (constipation). Feeling like you may vomit (nausea). Coughing or a sore throat. Changes in how the medicines that you take for other issues work in your body. Depression. Trouble sleeping (insomnia). Week 3 and afterward After the first 2 3 weeks of quitting, you may start to notice more positive results, such as: Better sense of smell and taste. Less coughing and sore throat. Slower heart rate. Lower blood pressure. Clearer skin. Better breathing. Fewer sick days. Quitting smoking can be hard. Do not give up if you fail the first time. Some people need to try a few times before they succeed. Do your best to stick to your quit plan, and talk with your doctor ifyou have any questions or concerns. Summary Smoking tobacco is the leading cause of preventable . Quitting smoking can be hard, but it is one of the best things that you can do for your health. When you decide to quit smoking, make a plan to help you succeed. Quit smoking right away, not slowly over a period of time. When you start quitting, seek help from your doctor, family, or friends. This information is not intended to replace advice given to you by your health care provider. Make sure you discuss any questions you have with your health care provider. Document Released: 05/25/2010 Document Revised: 10/16/2019 Document Reviewed: 10/17/2019 [employer] Patient Education 2019 [employer]. 12/30/2024 08:28:19 Coping with Quitting Smoking Coping with Quitting Smoking Quitting smoking is a physical and mental challenge. You will face cravings, withdrawal symptoms, and temptation. Before quitting, work with your health care provider to make a plan that can help youcope. Preparation can help you quit and keep you from giving in. How can I cope with cravings? Cravings usually last for 5 10 minutes. If you get through it, the craving will pass. Consider taking the following actions to help you cope with cravings: Keep your mouth busy: ?Chew sugar-free gum. ?Suck on hard candies or a straw. ?Harvest your teeth. Keep your hands and body busy: ?Immediately change to a different activity when you feel a craving. ?Squeeze or play with a ball. ?Do an activity or a hobby, like making bead jewelry, practicing needlepoint, or working with wood. ?Mix up your normal routine. ?Take a short exercise break. Go for a quick walk or run up and down stairs. ?Spend time in public places where smoking is not allowed. Focus on doing something kind or helpful for someone else. Call a friend or family member to talk during a craving. Join a support group. Call a quit line, such as 7-725-GAQVFORA.tvNOW. Talk with your health care provider about medicines that might help you cope with cravings and makequitting easier for you. How can I deal with withdrawal symptoms? Your body may experience negative effects as it tries to get used to not having nicotine in the system. These effects are called withdrawal symptoms. They may include: Feeling hungrier than normal. Trouble concentrating. Irritability. Trouble sleeping. Feeling depressed. Restlessness and agitation. Craving a cigarette. To manage withdrawal symptoms: Avoid places, people, and activities that trigger your cravings. Remember why you want to quit. Get plenty of sleep. Avoid coffee and other caffeinated drinks. These may worsen some of your symptoms. How can I handle social situations? Social situations can be difficult when you are quitting smoking, especially in the first few weeks. To manage this, you can: Avoid parties, bars, and other social situations where people might be smoking. Avoid alcohol. Leave right away if you have the urge to smoke. Explain to your family and friends that you are quitting smoking. Ask for understanding and support. Plan activities with friends or family where smoking is not an option. What are some ways I can cope with stress? Wanting to smoke may cause stress, and stress can make you want to smoke. Find ways to manage your stress. Relaxation techniques can help. For example: Breathe slowly and deeply, in through your nose and out through your mouth. Listen to soothing, relaxing music. Talk with a family member or friend about your stress. Light a candle. Soak in a bath or take a shower. Think about a peaceful place. What are some ways I can prevent weight gain? Be aware that many people gain weight after they quit smoking. However, not everyone does. To keep from gaining weight, have a plan in place before you quit and stick to the plan after you quit. Yourplan should include: Having healthy snacks. When you have a craving, it may help to: ?Eat plain popcorn, crunchy carrots, celery, or other cut vegetables. ?Chew sugar-free gum. Changing how you eat: ?Eat small portion sizes at meals. ?Eat 4 6 small meals throughout the day instead of 1 2 large meals a day. ?Be mindful when you eat. Do not watch television or do other things that might distract you as youeat. Exercising regularly: ?Make time to exercise each day. If you do not have time for a long workout, do short bouts of exercise for 5 10 minutes several times a day. ?Do some form of strengthening exercise, like weight lifting, and some form of aerobic exercise, like running or swimming. Drinking plenty of water or other low-calorie or no-calorie drinks. Drink 6 8 glasses of water daily, or as much as instructed by your health care provider. Summary Quitting smoking is a physical and mental challenge. You will face cravings, withdrawal symptoms, and temptation to smoke again. Preparation can help you as you go through these challenges. You can cope with cravings by keeping your mouth busy (such as by chewing gum), keeping your body and hands busy, and making calls to family, friends, or a helpline for people who want to quit smoking. You can cope with withdrawal symptoms by avoiding places where people smoke, avoiding drinks with caffeine, and getting plenty of rest. Ask your health care provider about the different ways to prevent weight gain, avoid stress, and handle social situations. This information is not intended to replace advice given to you by your health care provider. Make sure you discuss any questions you have with your health care provider. Document Released: 07/26/2017 Document Revised: 07/11/2018 Document Reviewed: 07/26/2017 [employer] Patient Education 2020 [employer]. 12/30/2024 08:28:12 3- SH TRANSCATHETER AORTIC VALVE REPLACEMENT (TAVR) Discharge Instructions 08/26/2018(CUSTOM) TRANSCATHETER AORTIC VALVE REPLACEMENT (TAVR) Discharge Instructions DIET INSTRUCTIONS Resume your previous diet as tolerated Drink plenty of fluids for the next 48 hours to help your kidneys flush the dye out of your system ACTIVITIES May go up and down stairs CAREFULLY AFTER [address] FOR 5 DAYS AFTER PROCEDURE No heavy lifting GREATER THAN 10 POUNDS or pushing or straining FOR 5 DAYS Someone must stay with you at home after the procedure FOR 3 DAYS BATHING/SHOWERING May tub bathe in 1 week May shower tomorrow, but cover groin incisions with plastic for 3 days after procedure WOUND CARE You will go home with a Band-Aid over your catheter insertion site. Keep a Band- Aid on for the next24 hours and then leave open to air. Some degree of bruising and tenderness is normal around the catheter insertion site. It will take awhile for any bruising to completely resolve. Keep your site clean and dry. You need to report the following to your post anesthesia nurse: Any draining or oozing from the site Any swelling at the site Any increased pain or tenderness at the site Any numbness in your leg where the procedure was done Any signs of infection IMPORTANT! CALL 911 FOR ANY BLEEDING OR SWELLING AT THE PROCEDURE SITE If there is any large amount of bleeding, you or someone else need to apply direct pressure to the site (just like the nurse did in the heart lab after your procedure). It is very important that you hold constant pressure. Do not release the pressure to check if the bleeding has stopped. You then need to be transported to the nearest emergency room. WATCH FOR SIGNS OF INFECTION (Usually appears 36-48 hours after surgery) A temperature above 100.5 Redness or swelling Increased pain Foul odor or drainage If you have any questions, please call your doctor at the number listed on your follow up instructions. CONTACT YOUR CARDIOLOGY OFFICE FOR A PRESCRIPTION FOR ANTIBIOTICS PRIOR TO ANY DENTAL PROCEDURE! Follow all instructions given to you by your doctor Follow Up Care 12/22/2024 12:59:02 With:Card[facility]- [facility] Address: [facility] [address] [place] [address]- When: Unknown Comments:The Cardiac Rehab department will call you to schedule you for phase 2. We left you a brochure withinformation about cardiac rehab. If you have any questions please call [phone]. With:JANN ALLEN MD Address: [address] [facility] [id number] [facility] [place] [address]- [phone] When:Within 4 Week(s) Comments:TAVR follow-up. Echo and labs prior to office visit as scheduled With:Echocardiogram Address: When:Within 4 Week(s) Comments:This department is [facility] in [facility]. Please have lab work done around the same time, prior to your office visit. [facility] 05-21-2025 Note* Exam Date Time Procedure Performing Provider Status 12/30/24 7:55 AM Echocardiogram, Adult - CV ZAFAR BLANDON DD, MD; Auth (Verified) [facility] [id number] Note* Exam Date Time Procedure Performing Provider Status 12/29/24 4:10 PM Echocardiogram, Adult - CV JANN BERMEO MD; Auth (Verified) [facility] [id number] Nephrology Consult note Date of Service December 29, 2024 Reason for Consultation End-stage renal disease patient is History of Present Illness 84 years old. History of end-stage renal disease currently on hemodialysis on a Saturday schedule. Access is a right forearm AV fistula. Last treatment was yesterday. He was admitted electively for TAVR. 1 month ago he had PCI with stent placement. He returned today for TAVR. He tolerated the procedure well. Currently no shortness of breath. No chest pain. He is on room air. No orthopnea. Appetite is fair. Denies nausea. Review of Systems As above. No complaints. No shortness of breath. No chest pain. Appetite fair. No nausea. No headaches or lightheadedness. No bleeding from his catheter site. Physical Exam Vitals and Measurements T: 36.6 C (Oral) TMIN: 36.5 C (Oral) TMAX: 36.6 C (Oral) HR: 74 (Monitored) RR: 18 BP: 146/60 SpO2:93% HT: 170.2 cm WT: 78 kg BMI: 26.93 Weight Dosing Weight: 78 kg (12/29/24) Dosing Weight: 78 kg (12/29/24) General: No distress on room air HEENT: Mucosa was moist, sclera anicteric, extraocular muscles intact, neck veins were flat, no carotid bruits Lungs: Clear bilaterally with no crackles wheezes or rhonchi Heart: Regular with ectopy. Access: Right arm AV fistula with positive bruit and thrill Abdomen: Positive bowel sounds, soft, no palpable masses Extremities: No edema, pulses 1+ in all 4 extremities Skin: No rashes, normal turgor Lab Results 12/29 12:45 WBC: 6.5 Hgb: 9.8 L Hct: 30.5 L Platelet: 188 Neutrophil %: 68.9 Glucose Level: 91 Sodium Level: 139 Potassium Level: 4.2 BUN: 43.0 H Creatinine Lvl (s): 6.04 H Assessment/Plan 1. End-stage renal disease: Dialysis on Wednesdays and Fridays. Last treatment was on Saturday. He is euvolemic. Labs reviewed. Will plan for dialysis tomorrow on his normal schedule. His fistula is patent. 2. Aortic stenosis: Patient underwent TAVR earlier today. Currently asymptomatic. He will be observed overnight. 3. Hypertension: Patient takes metoprolol as an outpatient. Currently on as needed hydralazine. Manage volume with dialysis. 4. Anemia: Patient will continue SOPHIE's with dialysis. Problem List/Past Medical History Ongoing Anemia CAD IN [place] ARTERY CHF (CONGESTIVE HEART FAILURE) Chronic heart failure with preserved ejection fraction (HFpEF) CKD (chronic kidney disease) DYSLIPIDEMIA ESRD on dialysis GERD - Gastro-esophageal reflux disease Gross hematuria H/O NON-ST ELEVATION MYOCARDIAL INFARCTION (NSTEMI) Hypertension HYPERTENSION, BENIGN Mild aortic regurgitation Mild mitral regurgitation Mitral regurgitation Moderate aortic stenosis OVERWEIGHT (BMI 25.0-29.9) Parathyroidectomy PREOPERATIVE CLEARANCE PVC (PREMATURE VENTRICULAR CONTRACTION) PVCs (premature ventricular contractions) Severe aortic stenosis Smoker Procedure/Surgical History Cardiovascular stress testin11/18/23 PCI - Percutaneous coronary intervention: 09/06/14 Cardiac catheterization, combined right and left heart: 09/06/14 Placement of stent in coronary artery: 09/04/14 Excision of parathyroid gland: 2012 Cystoscopic laser lithotripsy of ureteric calculus: 1960 Cystoscopy Hand Blood transfusion Hernia repair Colonoscopy Endoscopy Medications Inpatient aspirin 81 mg oral delayed release tablet, 81 mg= 1 tab(s), Oral, Daily atorvastatin, 40 mg= 1 tab(s), Oral, qHS Dextrose 50% IV Push, 25 gram(s)= 50 mL, IV Push, AsDirected, PRN finasteride 5 mg oral tablet, 5 mg= 1 tab(s), Oral, Every other day fluticasone 50 mcg/inh NASAL spray, 50 mcg= 1 spray(s), Nostril, each, Daily hydrALAZINE, 5 mg= 0.25 mL, IV Push, Once, PRN isosorbide mononitrate 30 mg oral tablet, extended release, 30 mg= 1 tab(s), Oral, Sun/Tues/Thurs/Sat melatonin, 3 mg= 1 tab(s), Oral, qHS, PRN metoprolol succinate 25 mg oral TABLET extended release, 25 mg= 1 tab(s), Oral, qDay morphine, 2 mg= 1 mL, IV Push, q3h, PRN Swayzee 325- 5 mg oral tablet, 1 tab(s), Oral, q4h, PRN Swayzee 325-10 mg oral tablet, 1 tab(s), Oral, q4h, PRN pantoprazole, 40 mg= 1 tab(s), Oral, qDay Peridex 0.12% oral rinse liquid, 15 mL, Swish & Spit, PREOP pharm Plavix, 75 mg= 1 tab(s), Oral, qDay Pulmicort Respules 0.5 mg/2 mL inhalation suspension, 0.5 mg= 2 mL, Inhalation, BIDRT Tylenol, 650 mg= 2 tab(s), Oral, q4h, PRN Zofran, 4 mg= 2 mL, IV Push, q4h, PRN Home Arnuity Ellipta 200 mcg/inh inhalation powder, 200 mcg= 1 inh, Inhalation, q24h aspirin 81 mg oral delayed release tablet, 81 mg= 1 tab(s), Oral, Daily, 4 refills atorvastatin 40 mg oral tablet, 40 mg= 1 tab(s), Oral, qHS, 4 refills calcium acetate 667 mg oral capsule, 1334 mg= 2 cap(s), Oral, TIDAC finasteride 5 mg oral tablet, 5 mg= 1 tab(s), Oral, Every other day, 3 refills fluticasone proprionate NASAL 50 mcg/ spray, 50 mcg= 1 spray(s), Nostril, each, Daily isosorbide mononitrate 30 mg oral tablet, extended release, 30 mg= 1 tab(s), Oral, qAM, 2 refills metoprolol succinate 25 mg oral TABLET extended release, 25 mg= 1 tab(s), Oral, qDay, 1 refills nitroglycerin 0.4 mg sublingual tablet, 0.4 mg= 1 tab(s), Sublingual, q5min, PRN, 1 refills pantoprazole 40 mg oral enteric coated tablet, 1 tab(s), Oral, qDay, 2 refills Plavix 75 mg oral tablet, 75 mg= 1 tab(s), Oral, qDay, 4 refills Allergies lisinopril Cough Social History Smoking Status - 09/04/2014 Former smoker Alcohol Use: Current. Type: Liquor. Frequency: 1-2 times per month., 10/28/2024 Nutrition/Health Type of diet: Regular. Caffeine intake amount: 1-2 cups per day. Eating Difficulties None., 11/17/2024 Substance Abuse Use: Never., 11/06/2018 Tobacco Nicotine Use: Former smoker, quit more than 30 days ago. Type: Cigarettes. Tobacco use per day: 30.Number of years: 17., 06/05/2024 Nicotine Use: Former smoker, quit more than 30 days ago., 02/24/2024 Family History Cancer: Mother and Father. Cancer: Brother. Heart disease: Father. Health Status Family Member(s) Immunizations pneumococcal 13-valent conjugate vaccine: 0 unknown unit (12/24/14) pneumococcal 23-valent vaccine(Pneumovax: 0.5 unknown unit (03/04/17) SARS-CoV-2 (COVID-19) mRNA-1273 vaccine: 0.25 unknown unit (07/31/21) SARS-CoV-2 (COVID-19) mRNA-1273 vaccine: 0.5 unknown unit (11/08/20) SARS-CoV-2 (COVID-19) mRNA-1273 vaccine: 0.5 unknown unit (10/11/20) tetanus/diphth/pertuss (Tdap) adult/adol: 0.5 mL (10/31/18) Digitally Signed by JANA SINGH MD on 12/29/2024 03:34 PM [facility] [id number] Note* Exam Date Time Procedure Performing Provider Status 12/29/24 12:00 PM Electrocardiogram - EKG - CV BRANDY BLANDON MD; Auth (Verified) ECG Final Report SINUS RHYTHM PROLONGED DC INTERVAL RIGHT BUNDLE BRANCH BLOCK INFERIOR MYOCARDIAL INFARCTION, PROBABLY OLD Electronic Signature: BRANDY BLANDON MD 12/30/2024 15:05:16 [facility] [id number] Note* Exam Date Time Procedure Performing Provider Status 12/29/24 9:09 AM Transcatheter Aortic Valve Replacement-JANN MURRAY MD; Auth (Verified) [facility] [id number] Note* Exam Date Time Procedure Performing Provider Status 12/29/24 8:11 AM Electrocardiogram - EKG - CV BRANDY BLANDON MD; Auth (Verified) ECG Final Report SINUS RHYTHM PROLONGED DC INTERVAL RIGHT BUNDLE BRANCH BLOCK LVH BY VOLTAGE Electronic Signature: BRANDY BLANDON MD 12/30/2024 15:04:51 [facility] [id number] NoteHNO ID: [id number] Author: MELIDA GONZALEZ LPN Service: ? Author Type: LICENSED NURSE Type: Progress Notes Filed: 12/17/2024 12:43 Note Text: Scan on 12/17/2024 12:34 PM by Venessa Hernandez PA-C: Consultation - Pulmonary [facility]05-08-2025 History of Present illness Narrative* Melida Gonzalez LPN - 12/17/2024 12:43 PM EDT Scan on 12/17/2024 12:34 PM by Venessa Hernandez PA-C: Consultation - [facility] Evaluation [facility]* Diagnosis Onset Date Resolution Status Admit Date Cough acute December 17, 2024 8:43am Postnasal drip chronic December 17 8:43am Abdominal pain acute February 09, 2025 8:46am Nausea and vomiting acute February 09, 2025 8:46am [facility] Work Phone: [phone]) 181-223405-02-2025 NoteHNO ID: [id number] Author: MELIDA GONZALEZ LPN Service: ? Author Type: LICENSED NURSE Type: Progress Notes Filed: 12/11/2024 08:01 Note Text: Scan on 2024 11:54 AM by Venessa Hernandez PA-C: Consultation - Cardiology [facility]05-02-2025 History of Present illness Narrative* Melida Gonzalez LPN - 12/11/2024 8:00 AM EDT Scan on 2024 11:54 AM by Venessa Hernandez PA-C: Consultation - [facility]iology [facility]25 NoteHNO ID: [id number] Author: MELIDA GONZALEZ LPN Service: ? Author Type: LICENSED NURSE Type: Progress Notes Filed: 11/20/2024 15:11 Note Text: Scan on 11/19/2024 11:17 PM by Venessa Hernandez PA-C: [facility] History of Present illness Narrative* Melida Gonzalez LPN - 11/20/2024 3:10 PM EDT Scan on 11/19/2024 11:17 PM by Venessa Hernandez PA-C: Chemistry [facility] Hospital Discharge instructions Patient Education 11/18/2024 14:45:51 3- Heart Cath/PCI groin (05/2018)(CUSTOM) HEART CATHETERIZATION/PCI (groin) Discharge Instructions DIET INSTRUCTIONS Drink plenty of fluids for the next 48 hours to help your kidneys flush the heart cath dye out of your system ACTIVITIES May go up and down stairs CAREFULLY Do not drive car FOR 24 HOURS No heavy lifting GREATER THAN 10 POUNDS or pushing or straining FOR 2 DAYS Someone must stay with you at home after the procedure until the morning. BATHING/SHOWERING May tub bathe in 1 week May shower tomorrow WOUND CARE You will go home with a Band-Aid over your heart cath site. Keep a Band-Aid on for the next 24 hours and then leave open to air. Some degree of bruising and tenderness is normal around the heart cath site. It will take a while for any bruising to completely resolve. Keep your site clean and dry. You need to report the following to your post anesthesia nurse: Any draining or oozing from the site Any swelling at the site Any increased pain or tenderness at the site Any numbness in your leg where the procedure was done Any signs of infection IMPORTANT! CALL 911 FOR ANY BLEEDING OR SWELLING AT THE PROCEDURE SITE If there is any large amount of bleeding, you or someone else need to apply direct pressure to the site (just like the nurse did in the heart lab after your procedure). It is very important that you hold constant pressure. Do not release the pressure to check if the bleeding has stopped. You then need to be transported to the nearest emergency room. WATCH FOR SIGNS OF INFECTION (Usually appears 36-48 hours after surgery) A temperature above 100.5 Redness or swelling Increased pain Foul odor or drainage If you have any questions, please call your doctor at the number listed on your follow up instructions. Follow all instructions given to you by your physician Document Released: 07/29/2006 Document Revised: 07/15/2013 Document Reviewed: 07/30/2014 ExitCare Patient Information 2015 [employer]. This information is not intended to replace advicegiven to you by your health care provider. Make sure you discuss any questions you have with your health care provider. 11/18/2024 14:40:30 Aortic Valve Stenosis Aortic Valve Stenosis Aortic valve stenosis is a narrowing of the aortic valve in the heart. The aortic valve opens and closes to regulate blood flow between the left side of the heart (left ventricle) and the artery thatleads away from the heart (aorta). When the aortic valve becomes narrow, it is difficult for the heart to pump blood out to the body, which causes the heart to work harder. The extra work can weaken the heart muscle over time. Aortic valve stenosis can range from mild to severe. If it is not treated, it can become more severe over time and lead to heart failure. What are the causes? This condition may be caused by: Buildup of calcium around and on the aortic valve. This can occur with aging. This is the most common cause of aortic valve stenosis. A heart problem that developed in the womb ( defect). Rheumatic fever. Radiation to the chest. What increases the risk? You may be more likely to develop this condition if: You are older than age 65. You were born with an abnormal bicuspid valve. What are the signs or symptoms? You may not have any symptoms until your condition becomes severe. It may take 10 20 years for mildor moderate aortic valve stenosis to become severe. Symptoms may include: Shortness of breath. This may get worse during physical activity. Feeling unusually weak and tired (fatigue). Extreme discomfort in the chest, neck, or arm during physical activity (angina). A heartbeat that is irregular or faster than normal (palpitations). Dizziness or fainting. This may happen when you get physically tired or after you take certain heart medicines, such as nitroglycerin. How is this diagnosed? This condition may be diagnosed with: A physical exam. Echocardiogram. This is a type of imaging test that uses sound waves (ultrasound) to make images ofyour heart. There are two kinds of this test that may be used. ?Transthoracic echocardiogram (TTE). For this type, a wand-like tool (transducer) is moved over your chest to create ultrasound images that are recorded by a computer. ?Transesophageal echocardiogram (JUNIOR). For this type, a flexible tube (probe) is inserted down the part of the body that moves food from your mouth to your stomach (esophagus). The heart and the esophagus are close to each other. Your health care provider will use the probe to take clear, detailed pictures of the heart. Cardiac catheterization. For this procedure, a small, thin tube (catheter) is passed through a large vein in your neck, groin, or arm. The catheter is used to get information about arteries, structures, blood pressure, and oxygen levels in your heart. Stress tests. These are tests that evaluate the blood supply to your heart and your heart's response to exercise. You may work with a health care provider who specializes in the heart (post anesthesia nurse) for diagnosis and treatment. How is this treated? Treatment depends on how severe your condition is and what your symptoms are. You will need to haveyour heart checked regularly to make sure that your condition is not getting worse or causing serious problems. Treatment may also include: Surgery to replace your aortic valve. This is the most common treatment for aortic valve stenosis, and it is the only treatment to cure the condition. Several types of surgeries are available. The surgery may be done: ?Through a large incision over your heart (open-heart surgery). ?Through small incisions, using a flexible tube called a catheter (transcatheter aortic valve replacement, TAVR). Medicines that help to keep your heart rate regular. Medicines that thin your blood (anticoagulants) to prevent blood clots. Antibiotic medicines to help prevent infection. If your condition is mild, you may only need regular follow-up visits for monitoring. Follow these instructions at home: Lifestyle Limit alcohol intake to no more than 1 drink a day for non women and 2 drinks a day for men. One drink equals 12 oz of beer, 5 oz of wine, or 1 oz of hard liquor. Do not use any products that contain nicotine or tobacco, such as cigarettes and e-cigarettes. If you need help quitting, ask your health care provider. Work with your health care provider to manage your blood pressure and cholesterol. Maintain a healthy weight. Eating and drinking Eat a heart-healthy diet that includes plenty of fresh fruits and vegetables, whole grains, lean protein, and low-fat or nonfat dairy. Limit how much caffeine you drink. Caffeine can affect your heart's rate and rhythm. Avoid foods that are: ?High in salt (sodium), saturated fat, or sugar. ?Canned or highly processed. ?Fried. Follow instructions from your health care provider about any other eating or drinking restrictions. Activity Exercise regularly and return to your normal activities as told by your health care provider. Ask your health care provider what amount and type of physical activity is safe for you. ?If your aortic valve stenosis is mild, you may only need to avoid very intense physical activity, such as heavy weight lifting. ?The more severe your aortic valve stenosis is, the more activities you may need to avoid. If you are taking blood thinners: Before you take any medicines that contain aspirin or NSAIDs, talk with your health care provider. These medicines increase your risk for dangerous bleeding. Take your medicine exactly as told, at the same time every day. Avoid activities that could cause injury or bruising, and follow instructions about how to prevent falls. Wear a medical alert bracelet or carry a card that lists what medicines you take. General instructions Take dwgp-mde-eqxqqrn and prescription medicines only as told by your health care provider. If you were prescribed an antibiotic, take it as told by your health care provider. Do not stop taking the antibiotic even if you start to feel better. If you are a woman and you plan to become , talk with your health care provider before you become . Before you have any type of medical or dental procedure or surgery, tell all health care providers that you have aortic valve stenosis. This may affect the treatment that you receive. Keep all follow-up visits as told by your health care provider. This is important. Contact a health care provider if: You have a fever. Get help right away if: You develop any of the following symptoms: ?Chest pain. ?Chest tightness. ?Shortness of breath. ?Trouble breathing. You feel light-headed. You feel like you might faint. Your heartbeat is irregular or faster than normal. These symptoms may represent a serious problem that is an emergency. Do not wait to see if the symptoms will go away. Get medical help right away. Call your local emergency services (911 in the [place] Do not drive yourself to the hospital. Summary Aortic valve stenosis is a narrowing of the aortic valve in the heart. The aortic valve opens and closes to regulate blood flow between the left side of the heart (left ventricle) and the artery thatleads away from the heart (aorta). Aortic valve stenosis can range from mild to severe. If it is not treated, it can become more severe over time and lead to heart failure. Treatment depends on how severe your condition is and what your symptoms are. You will need to haveyour heart checked regularly to make sure that your condition is not getting worse or causing serious problems. Exercise regularly and return to your normal activities as told by your health care provider. Ask your health care provider what amount and type of physical activity is safe for you. This information is not intended to replace advice given to you by your health care provider. Make sure you discuss any questions you have with your health care provider. Document Released: 04/26/2004 Document Revised: 07/11/2018 Document Reviewed: 05/01/2018 [employer] Patient Education 2020 [employer]. Follow Up Care 11/05/2024 14:56:38 With:CLAIRE ANDINO MD Address: [address] [facility] [place] [phone] When:5 to 7 days Comments:[facility] discharge services will call you with a follow up appointment date and time. If you have not heard from the office within the next 24-48 hours, please call the office. With:JULIO LICEA Address: [address] [place] [address]- Business (1) When:1-2 days Comments:Please call the office to schedule a follow up appointment date and time With:readmission score is 8 Address:Unknown When: Unknown [facility] 04-09-2025 Note Discharge Instructions Thank you for allowing [facility] to assist you with your healthcare needs. The following is importantdischarge information regarding your hospital visit. Your Care Team JULIO LICEA MD What to do next Instructions From Your Doctor 1. Kindly follow up with your Primary Care Physician and [employer]' as recommended. _ 2. Some of your medications may have changed during this hospital stay. Please go over these changes with your nurse before you leave the hospital. _ 3. Take all your medications as prescribed. If you have any queries, please reach out to our CV office at [phone] for general queries and [phone] for medication refills. 4. All your medical records and results are available to you through our [facility] Patient Portal. Tosign up, please visit [email or web address] Scheduled Follow-Up Appointments Appointment Type When With Where Contact Information StatusCT Angiography TAVR Planning 11/26/2024 01:00 PM EDT Radiology [phone] Confirmed CV OV 12/25/2024 11:15 AM EDT OMARI ANDINO [facility] [place] [facility] Confirmed Follow Up Appointments Follow Up with CLAIRE ANDINO MD When:Within 5 to 7 days Where:[address] [facility] [place] [phone] Additional Information: [facility] discharge services will call you with a follow up appointment date and time. If you have not heard from the office within the next 24-48 hours, please call the office. Follow Up with JULIO LICEA When:Within 1-2 days Where:[address] [place] [address]- Business (1) Additional Information: Please call the office to schedule a follow up appointment date and time Follow Up with readmission score is 8 The Following Activity and Diet Have Been Ordered for You Discharge Activity - Ordered -- Activity As Tolerated, 11/18/24 14:38:00 EDT Discharge Diet - Ordered -- Diet Restrictions: Cardiac diet, Sodium limit: 2 gm, No changes were made to your diet during your hospital stay. Please resume your pre hospitalization diet on discharge., 11/18/24 14:38:00 EDT The Following Equipment Has Been Ordered for You Home Equipment - None No qualifying data available. The Following Treatments Have Been Ordered for You Discharge Labs No qualifying data available. Discharge Radiology No qualifying data available. Other Therapies No qualifying data available. Post Acute Orders No qualifying data available. Someone Will Contact You Regarding These Home Health Referrals No home referrals have been ordered for you. No one will call you. Allergies lisinopril Cough Medications Please ask your primary doctor or pharmacist before taking any other medication not listed, including over the counter drugs, herbal medications, vitamins and or supplements as they may interact withyour home medications. What How Much When Why Instructions Last Dose Unchanged aspirin (aspirin 81 mg oral delayed releasetablet) 1 tab(s) by mouth Every day Duration: 90 Days Unchanged atorvastatin (atorvastatin 40 mg oral tablet) 1 tab(s) by mouth Daily at bedtime Duration: 90 Days Unchanged calcium acetate (calcium acetate 667 mg oral capsule) 2 cap by mouth Three (3) times a day before meals Unchanged clopidogrel (Plavix 75 mg oral tablet) 1 tab(s) by mouth Once a day Duration: 90 Days Unchanged finasteride (finasteride 5 mg oral tablet) 1 tab(s) by mouth Every other day Gross hematuria Duration: 90 Days Unchanged fluticasone (Arnuity Ellipta 200 mcg/ inh inhalation powder) 1 inh by inhalation Every 24 hours Unchanged fluticasone nasal (fluticasone proprionate NASAL 50 mcg/ spray) 1 spray(s) each nostril Every day Unchanged isosorbide mononitrate (isosorbide mononitrate 30 mg oral tablet, extended release) 1 tab(s) by mouth Once a day (in the morning) , , sat and saturday Unchanged metoprolol (metoprolol succinate 25 mg oral TABLET extended release) 1 tab(s) by mouth Once a day Do not crush or chew (controlled release) Unchanged nitroGLYcerin (nitroglycerin 0.4 mg sublingual tablet) 1 tab(s) under the tongue Every 5 minutes as needed for for chest pain Unchanged pantoprazole (pantoprazole 40 mg oral enteric coated tablet) 1 tab(s) by mouth Once a day Please take this list to your next doctor s visit. Bring all medications you take, including over the counter medications, herbals and other supplements with you to your doctor s visit. Patients and families are reminded to discard old lists and to update any records with all medication providers or retail pharmacies. Medication Leaflets clopidogrel (kloe PID oh grel) Plavix What is the most important information I should know about clopidogrel? You should not use this medicine if you have any active bleeding such as a stomach ulcer or bleeding in the brain. Clopidogrel increases your risk of bleeding, which can be severe or life- threatening. Call your doctor or seek emergency medical attention if you have bleeding that will not stop, if you have blood in your urine, black or bloody stools, or if you cough up blood or vomit that looks like coffee grounds. Do not stop taking clopidogrel without first talking to your doctor, even if you have signs of bleeding. Stopping clopidogrel may increase your risk of a heart attack or stroke. What is clopidogrel? Clopidogrel is used to lower your risk of having a stroke, blood clot, or serious heart problem after you've had a heart attack, severe chest pain (angina), or circulation problems. Clopidogrel may also be used for purposes not listed in this medication guide. What should I discuss with my healthcare provider before taking clopidogrel? You should not use clopidogrel if you are allergic to it, or if you have: any active bleeding; or a stomach ulcer or bleeding in the brain (such as from a head injury). Tell your doctor if you have ever had: an ulcer in your stomach or intestines; or a bleeding disorder or blood clotting disorder. Clopidogrel may not work as well if you have certain genetic factors that affect the breakdown of this medicine in your body. Your doctor may perform a blood test to make sure clopidogrel is right for you. This medicine is not expected to harm an unborn baby. However, taking clopidogrel within 1 week before childbirth can cause bleeding in the mother. Tell your doctor if you are or plan to become . You should not breastfeed while using this medicine. How should I take clopidogrel? Follow all directions on your prescription label and read all medication guides or instruction sheets. Use these medicines exactly as directed. Clopidogrel can be taken with or without food. Clopidogrel is sometimes taken together with aspirin. Take aspirin only if your doctor tells you to. Clopidogrel keeps your blood from coagulating (clotting) and can make it easier for you to bleed, even from a minor injury. Contact your doctor or seek emergency medical attention if you have any bleeding that will not stop. You may need to stop using clopidogrel for a short time before a surgery, medical procedure, or dental work. Any healthcare provider who treats you should know that you are taking clopidogrel. Do not stop taking clopidogrel without first talking to your doctor, even if you have signs of bleeding. Stopping the medicine could increase your risk of a heart attack or stroke. Store at room temperature away from moisture and heat. What happens if I miss a dose? Take the medicine as soon as you can, but skip the missed dose if it is almost time for your next dose. Do not take two doses at one time. What happens if I overdose? Seek emergency medical attention or call the Poison Help line at . Overdose can causeexcessive bleeding. What should I avoid while taking clopidogrel? Avoid alcohol. It can increase your risk of stomach bleeding. Avoid activities that may increase your risk of bleeding or injury. Use extra care to prevent bleeding while shaving or brushing your teeth. If you also take aspirin: Ask a doctor or pharmacist before using medicines for pain, fever, swelling, or cold/flu symptoms. They may contain ingredients similar to aspirin (such as salicylates, ibuprofen, ketoprofen, or naproxen). Taking these products together can increase your risk of bleeding. What are the possible side effects of clopidogrel? Get emergency medical help if you have signs of an allergic reaction: hives; difficult breathing; swelling of your face, lips, tongue, or throat. Clopidogrel increases your risk of bleeding, which can be severe or life- threatening. Call your doctor or seek emergency medical attention if you have bleeding that will not stop, if you have blood in your urine, black or bloody stools, or if you cough up blood or vomit that looks like coffee grounds. Also call your doctor at once if you have: nosebleeds, pale skin, easy bruising, purple spots under your skin or in your mouth; jaundice (yellowing of your skin or eyes); fast heartbeats, shortness of breath; headache, fever, weakness, feeling tired; little or no urination; a seizure; low blood sugar--headache, hunger, sweating, irritability, dizziness, fast heart rate, and feeling anxious or shaky; or signs of a blood clot--sudden numbness or weakness, confusion, problems with vision or speech. Common side effects may include: bleeding. This is not a complete list of side effects and others may occur. Call your doctor for medical advice about side effects. You may report side effects to FDA at 2-296-WMB-0465. What other drugs will affect clopidogrel? Sometimes it is not safe to use certain medications at the same time. Some drugs can affect your blood levels of other drugs you take, which may increase side effects or make the medications less effective. Tell your doctor about all your other medicines, especially: a stomach acid firer boiler such as omeprazole, Nexium, or Prilosec; an antidepressant such as citalopram, fluoxetine, sertraline, Cymbalta, Effexor, Lexapro, Pristiq, or Prozac; rifampin; a blood thinner--warfarin, Coumadin, Jantoven; or NSAIDs (nonsteroidal anti-inflammatory drugs)--aspirin, ibuprofen (Advil, Motrin), naproxen (Aleve), celecoxib, diclofenac, indomethacin, meloxicam, and others. This list is not complete. Other drugs may affect clopidogrel, including prescription and wngl-elg-pujaiqu medicines, vitamins, and herbal products. Not all possible drug interactions are listed here. Where can I get more information? Your pharmacist can provide more information about clopidogrel. Remember, keep this and all other medicines out of the reach of children, never share your medicines with others, and use this medication only for the indication prescribed. Every effort has been made to ensure that the information provided by [facility]. ('[employer]') is accurate, up-to-date, and complete, but no guarantee is made to that effect. Drug information contained herein may be time sensitive. [employer] information has been compiled for use by healthcare practitioners and consumers in the [place] and therefore [employer] does not warrant that uses outside of the [place] are appropriate, unless specifically indicated otherwise. [employer] drug information does not endorse drugs, diagnose patients or recommend therapy. [employer] drug information isan informational resource designed to assist licensed healthcare practitioners in caring for their p atients and/or to serve consumers viewing this service as a supplement to, and not a substitute for, the expertise, skill, knowledge and judgment of healthcare practitioners. The absence of a warningfor a given drug or drug combination in no way should be construed to indicate that the drug or drug combination is safe, effective or appropriate for any given patient. [employer] does not assume any responsibility for any aspect of healthcare administered with the aid of information [employer] provides. The information contained herein is not intended to cover all possible uses, directions, precautions, warnings, drug interactions, allergic reactions, or adverse effects. If you have questions about the drugs you are taking, check with your doctor, nurse or pharmacist. Copyright 6881-1498 [facility]. Version: 18.01. Revision Date: 11/09/2020. Education Materials HEART CATHETERIZATION/PCI (groin) Discharge Instructions DIET INSTRUCTIONS Drink plenty of fluids for the next 48 hours to help your kidneys flush the heart cath dye out of your system ACTIVITIES May go up and down stairs CAREFULLY Do not drive car FOR 24 HOURS No heavy lifting GREATER THAN 10 POUNDS or pushing or straining FOR 2 DAYS Someone must stay with you at home after the procedure until the morning. BATHING/SHOWERING May tub bathe in 1 week May shower tomorrow WOUND CARE You will go home with a Band-Aid over your heart cath site. Keep a Band-Aid on for the next 24 hours and then leave open to air. Some degree of bruising and tenderness is normal around the heart cath site. It will take a while for any bruising to completely resolve. Keep your site clean and dry. You need to report the following to your post anesthesia nurse: Any draining or oozing from the site Any swelling at the site Any increased pain or tenderness at the site Any numbness in your leg where the procedure was done Any signs of infection IMPORTANT! CALL 911 FOR ANY BLEEDING OR SWELLING AT THE PROCEDURE SITE If there is any large amount of bleeding, you or someone else need to apply direct pressure to the site (just like the nurse did in the heart lab after your procedure). It is very important that you hold constant pressure. Do not release the pressure to check if the bleeding has stopped. You then need to be transported to the nearest emergency room. WATCH FOR SIGNS OF INFECTION (Usually appears 36-48 hours after surgery) A temperature above 100.5 Redness or swelling Increased pain Foul odor or drainage If you have any questions, please call your doctor at the number listed on your follow up instructions. Follow all instructions given to you by your physician Document Released: 07/29/2006 Document Revised: 07/15/2013 Document Reviewed: 07/30/2014 [employer] Patient Information 2015 [employer]. This information is not intended to replace advicegiven to you by your health care provider. Make sure you discuss any questions you have with your health care provider. Aortic Valve Stenosis Aortic valve stenosis is a narrowing of the aortic valve in the heart. The aortic valve opens and closes to regulate blood flow between the left side of the heart (left ventricle) and the artery thatleads away from the heart (aorta). When the aortic valve becomes narrow, it is difficult for the heart to pump blood out to the body, which causes the heart to work harder. The extra work can weaken the heart muscle over time. Aortic valve stenosis can range from mild to severe. If it is not treated, it can become more severe over time and lead to heart failure. What are the causes? This condition may be caused by: Buildup of calcium around and on the aortic valve. This can occur with aging. This is the most common cause of aortic valve stenosis. A heart problem that developed in the womb ( defect). Rheumatic fever. Radiation to the chest. What increases the risk? You may be more likely to develop this condition if: You are older than age 65. You were born with an abnormal bicuspid valve. What are the signs or symptoms? You may not have any symptoms until your condition becomes severe. It may take 10 20 years for mildor moderate aortic valve stenosis to become severe. Symptoms may include: Shortness of breath. This may get worse during physical activity. Feeling unusually weak and tired (fatigue). Extreme discomfort in the chest, neck, or arm during physical activity (angina). A heartbeat that is irregular or faster than normal (palpitations). Dizziness or fainting. This may happen when you get physically tired or after you take certain heart medicines, such as nitroglycerin. How is this diagnosed? This condition may be diagnosed with: A physical exam. Echocardiogram. This is a type of imaging test that uses sound waves (ultrasound) to make images ofyour heart. There are two kinds of this test that may be used. ? Transthoracic echocardiogram (TTE). For this type, a wand-like tool (transducer) is moved over yourchest to create ultrasound images that are recorded by a computer. ? Transesophageal echocardiogram (JUNIOR). For this type, a flexible tube (probe) is inserted down the part of the body that moves food from your mouth to your stomach (esophagus). The heart and the esophagus are close to each other. Your health care provider will use the probe to take clear, detailed pictures of the heart. Cardiac catheterization. For this procedure, a small, thin tube (catheter) is passed through a large vein in your neck, groin, or arm. The catheter is used to get information about arteries, structures, blood pressure, and oxygen levels in your heart. Stress tests. These are tests that evaluate the blood supply to your heart and your heart's response to exercise. You may work with a health care provider who specializes in the heart (post anesthesia nurse) for diagnosis and treatment. How is this treated? Treatment depends on how severe your condition is and what your symptoms are. You will need to haveyour heart checked regularly to make sure that your condition is not getting worse or causing serious problems. Treatment may also include: Surgery to replace your aortic valve. This is the most common treatment for aortic valve stenosis, and it is the only treatment to cure the condition. Several types of surgeries are available. The surgery may be done: ? Through a large incision over your heart (open-heart surgery). ? Through small incisions, using a flexible tube called a catheter (transcatheter aortic valve replacement, TAVR). Medicines that help to keep your heart rate regular. Medicines that thin your blood (anticoagulants) to prevent blood clots. Antibiotic medicines to help prevent infection. If your condition is mild, you may only need regular follow-up visits for monitoring. Follow these instructions at home: Lifestyle Limit alcohol intake to no more than 1 drink a day for non women and 2 drinks a day for men. One drink equals 12 oz of beer, 5 oz of wine, or 1 oz of hard liquor. Do not use any products that contain nicotine or tobacco, such as cigarettes and e-cigarettes. If you need help quitting, ask your health care provider. Work with your health care provider to manage your blood pressure and cholesterol. Maintain a healthy weight. Eating and drinking Eat a heart-healthy diet that includes plenty of fresh fruits and vegetables, whole grains, lean protein, and low-fat or nonfat dairy. Limit how much caffeine you drink. Caffeine can affect your heart's rate and rhythm. Avoid foods that are: ? High in salt (sodium), saturated fat, or sugar. ? Canned or highly processed. ? Fried. Follow instructions from your health care provider about any other eating or drinking restrictions. Activity Exercise regularly and return to your normal activities as told by your health care provider. Ask your health care provider what amount and type of physical activity is safe for you. ? If your aortic valve stenosis is mild, you may only need to avoid very intense physical activity, such as heavy weight lifting. ? The more severe your aortic valve stenosis is, the more activities you may need to avoid. If you are taking blood thinners: Before you take any medicines that contain aspirin or NSAIDs, talk with your health care provider. These medicines increase your risk for dangerous bleeding. Take your medicine exactly as told, at the same time every day. Avoid activities that could cause injury or bruising, and follow instructions about how to prevent falls. Wear a medical alert bracelet or carry a card that lists what medicines you take. General instructions Take [id number] and prescription medicines only as told by your health care provider. If you were prescribed an antibiotic, take it as told by your health care provider. Do not stop taking the antibiotic even if you start to feel better. If you are a woman and you plan to become , talk with your health care provider before you become . Before you have any type of medical or dental procedure or surgery, tell all health care providers that you have aortic valve stenosis. This may affect the treatment that you receive. Keep all follow-up visits as told by your health care provider. This is important. Contact a health care provider if: You have a fever. Get help right away if: You develop any of the following symptoms: ? Chest pain. ? Chest tightness. ? Shortness of breath. ? Trouble breathing. You feel light-headed. You feel like you might faint. Your heartbeat is irregular or faster than normal. These symptoms may represent a serious problem that is an emergency. Do not wait to see if the symptoms will go away. Get medical help right away. Call your local emergency services (911 in the [place] Do not drive yourself to the hospital. Summary Aortic valve stenosis is a narrowing of the aortic valve in the heart. The aortic valve opens and closes to regulate blood flow between the left side of the heart (left ventricle) and the artery thatleads away from the heart (aorta). Aortic valve stenosis can range from mild to severe. If it is not treated, it can become more severe over time and lead to heart failure. Treatment depends on how severe your condition is and what your symptoms are. You will need to haveyour heart checked regularly to make sure that your condition is not getting worse or causing serious problems. Exercise regularly and return to your normal activities as told by your health care provider. Ask your health care provider what amount and type of physical activity is safe for you. This information is not intended to replace advice given to you by your health care provider. Make sure you discuss any questions you have with your health care provider. Document Released: 04/26/2004 Document Revised: 07/11/2018 Document Reviewed: 05/01/2018 [employer] Patient Education 2020 [employer] Additional Information VACCINATE! IT SAVES LIVES! Members of the community who have not yet received the COVID-19 vaccine and would like to receive it can visit one of [facility] vaccine clinics. There are many vaccine clinic locations within the [facility]. For locations and available times, please visit [email or web address].[place].gov/. It is important to note that some COVID mobile vaccine clinics are held outdoors and may be canceled in rainy or stormy conditions. To learn more about pediatric vaccinations (ages 5-11), we invite you to visit the [facility] webpage. [email or web address] learn more about the COVID-19 vaccine, we invite you to visit the CDC website for a list of frequently asked questions.https://www.cdc.gov/coronavirus/2019-ncov/vaccines/faq.html [facility] Patient Portal Access Instructions: Stay connected with your healthcare team and access your personal medical information anytime with the [facility] Patient Portal. Please follow the directions below to create your [facility] account: 1.Access the email account you provided upon registration to the hospital/physician office.2.Look for an invitation email from [facility].3.Open the email and access the invitation link: AcceptInvitation to [facility].4.Fill in the required wilkinson to create your account. To access your account, visit [facility] | [email or web address]. Click the blue button labeled Access Patient Portal and then log in with the username and password that you created in the steps above. You will be able to view your test results, lab results, a summary of your visits, upcoming appointments and more. There is also a convenient messaging option where you can send secure messages to your p [employer]. In addition, you will have the ability to download any documents or summaries to your computer and/or send the information securely to a physician. Remember that your healthcare information is confidential, so carefully consider who you will allowto register on the [facility] Patient Portal for access to your information. You can also access the [facility] Patient Portal on the buildabrandwhere samanta. Simply click on Patient Portal and then log into your account. If you would like to receive a full copy of your medical records, please contact the [facility] Medical Records Department by calling [phone], Saturday through Saturday between 8 a.m. and 4:30 p.m. HOW TO SAFELY DISPOSE OF PRESCRIPTION MEDICATIONS Please use one of the following methods to safely dispose of your unused medications. 1.Use a drug disposal kit: the drug disposal pouch allows you to safely discard your old and unuseddrugs. Ask your nurse to give you one when you are discharged.2.Visit a local take-back location: Many local pharmacies and police departments have programs that collect old and unwanted prescriptiondrugs. Call your local pharmacy or go to http://NuPotential.InSpa/1K5Hg4o to find one close to you.3.Make use of household items: Use cat litter or old coffee grounds to dispose medications if other options arenot available. Mix your drugs with these household products, seal them in an airtight container andthrow it into the garbage. Call [facility]: [phone] to be sure your drugs can be disposed of in this way. Some medicines may require a different approach.4.Never flush your medications down the toilet. IF YOU HAVE BEEN PRESCRIBED AN OPIOID FOR PAIN If you have been prescribed an opioid (such as hydrocodone, oxycodone or morphine), it is critical to understand the possible side effects and risks of opioid pain medications. Even when taken as directed, opioids can have several side effects including: Tolerance, meaning you might need to take more of a medication for the same pain relief. Nausea, vomiting and/or constipation. Sleepiness, dizziness, dry mouth, confusion, depression or itching. Physical dependence, meaning you have withdrawal symptoms when a medication is stopped, can develop within a few days. KNOW YOUR RESPONSIBILITIES It is important to know exactly how much and how often to take the opioid pain medications you are prescribed. Never take opioids in higher amounts or more often than prescribed. Do not combine opioids with alcohol or other drugs that cause drowsiness, such as benzodiazepines, also known as benzos, including diazepam and alprazolam, muscle relaxants or sleep aids. Never sell or share prescription opioids. This is illegal. Store opioids in a secure place and out of reach of others (including children, family, friends and visitors). The last page of this document has been signed and retained as a CHART COPY. Signatures Patient Education Materials 3- Heart Cath/PCI groin (05/2018)(CUSTOM) Aortic Valve Stenosis Medication Leaflets Plavix My discharge plan and instructions have been reviewed and explained to me and IROGER CARL M understand my current condition and have read and understand these discharge instructions. I have received a written copy of the plan/instructions. If I have questions, I am aware that I should contact my doctor. 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 Patient was seen by cardiothoracic surgery during his hospital stay for severe aortic stenosis and they recommended proceeding with TAVR workup which will be done as an outpatient. Patient is being discharged home and will follow up with PCP/[facility] as an outpatient. Allergies lisinopril Cough Consults Consult to Physician - Ordered -- 11/17/24 5:00:00 EDTBRIAN MUSTAFA K MD, Routine, severe , TAVR Consult to Physician - Ordered -- 11/17/24 15:00:00 EDTBRIAN MUSTAFA K MD, Routine, severe , TAVR Consult to Physician - Ordered -- 11/17/24 15:41:00 EDT, KONTAMWAR, ROB A MD, Routine, dialysis MWF Subjective Patient was seen at bedside. Denies chest pain/orthopnea/PND at present.No new complaints. No acuteevents overnight. Physical Exam Vitals and Measurements T: 37.1 C (Skin) TMIN: 36.7 C (Oral) TMAX: 37.2 C (Skin) HR: 70 (Monitored) RR: 18 BP: 125/83 BP: 160/55(Line) SpO2: 95% WT: 77.2 kg Weight Dosing Weight: 77.2 kg (11/18/24) Dosing Weight: 77.5 kg (11/18/24) GENERAL APPEARANCE: Lying on bed; _ SKIN: Warm EXTREMITIES: No cyanosis/clubbing. No significant pedal edema HEENT: PERRL, EOMI. JVD not elevated NECK: Supple. Trachea is midline. CHEST: Symmetric. Nontender to palpation. LUNGS: Mildly diminished basal breath sounds/few crackles HEART: RRR, S1, S2 +. No murmurs, gallops, or rubs. ABDOMEN: Soft. No organomegaly. NEUROLOGIC: A&O, moving all four extremities. Code Status Code Status - Ordered -- 11/17/24 13:04:00 EDT, Full Code, Constant Order Admission Date November 17, 2024 Discharge Date November 18, 2024 Patient Instructions 1. Kindly follow up with your Primary Care Physician and [facility] [employer] as recommended. _ 2. Some of your medications may have changed during this hospital stay. Please go over these changes with your nurse before you leave the hospital. _ 3. Take all your medications as prescribed. If you have any queries, please reach out to our [facility] office at [phone] for general queries and [phone] for medication refills. 4. All your medical records and results are available to you through our [facility] Patient Portal. Tosign up, please visit [email or web address] [email or web address] Unchanged aspirin (aspirin 81 mg oral delayed release tablet)1 tab(s) by mouth every day for 90 Days. Refills: 4. atorvastatin (atorvastatin 40 mg oral tablet)1 tab(s) by mouth daily at bedtime for 90 Days. Refills: 4. calcium acetate (calcium acetate 667 mg oral capsule)2 cap by mouth three (3) times a day before meals. clopidogrel (Plavix 75 mg oral tablet)1 tab(s) by mouth once a day for 90 Days. Refills: 4. finasteride (finasteride 5 mg oral tablet)1 tab(s) by mouth every other day for 90 Days. Refills: 3. fluticasone (Arnuity Ellipta 200 mcg/inh inhalation powder)1 inh by inhalation every 24 hours. fluticasone nasal (fluticasone proprionate NASAL 50 mcg/ spray)1 spray(s) each nostril every day. isosorbide mononitrate (isosorbide mononitrate 30 mg oral tablet, extended release)1 tab(s) by mouth once a day (in the morning). , , sat and saturday. Refills: 2. metoprolol (metoprolol succinate 25 mg oral TABLET extended release)1 tab(s) by mouth once a day. Do not crush or chew (controlled release). Refills: 1. nitroGLYcerin (nitroglycerin 0.4 mg sublingual tablet)1 tab(s) under the tongue every 5 minutes as needed for chest pain. Refills: 1. pantoprazole (pantoprazole 40 mg oral enteric coated tablet)1 tab(s) by mouth once a day. Refills: 2. Follow Up Follow Up with CLAIRE ANDINO MD When:Within 5 to 7 days Where:[address] [facility] [address] [facility] [place] [address]- [phone] Follow Up with JULIO LICEA When:Within 1-2 days Where:[address] [place] [address]- Business (1) Follow Up with readmission score is 8 Follow Up Appointments No qualifying data available. Follow Up Labs/Studies Discharge Labs No Follow-up Labs Discharge Studies No Follow-up Studies Discharge Diet No qualifying data available. Discharge Activity No qualifying data available. Condition on Discharge Stable Discharge Disposition Home Time Spent 45 min Digitally Signed by TIMOTHY SETHI MD on 11/18/2024 02:39 PM Digitally Signed by CLAIRE ANDINO MD [facility] [id number] Nephrology Progress note Date of Service 11/18/2024 Patient is seen on dialysis. He is doing well. No complaints. Vitals reviewed, BP 133/61. Right AV fistula cannulated without any issues. Around 0.5 L fluid is being removed to bring him down to his dry weight. All his questions were answered. Will follow. Digitally Signed by ROB MON MD on 11/18/2024 11:06 AM [facility] [id number] Consult note Date of Service 11/18/2024 Reason for Consultation Routine Dialysis History of Present Illness Mr. Duran is an 83 year old male with a past medical history of non-STEMI, CAD, PCI in 2015 in 2023, severe aortic stenosis, HFpEF, asthma, GERD, chronic anemia, and ESRD on dialysis ([facility] - Dr. Wilkinson). The patient had a PCI stent placed 11/17. Patient had an EF of 55% with severe aortic valve stenosis and valve area by peak velocity of 0.8 cm . CTS surgery was consulted for TAVR. As the patient has routine dialysis. A nephrology consult was placed for his dialysis care and treatment. Today, thepatient was seen and evaluated. The patient does not have any acute events overnight. Patient is onroom air. The patient denies any chest pain or shortness of breath. The patient states he is makingurine. The patient denies any problems with his fistula. The patient denies any bleeding. The patient has no other acute concerns. Review of Systems Constitutional: Denies fever, chills or sweats. Denies lightheadedness, dizziness, or LOC. Eyes: Denies blurred vision. Ears, Nose, Mouth & Throat: Denies difficulty hearing, tinnitus, rhinorrhea or sore throat. Denies dysphagia or hoarse voice. Cardiovascular: Denies chest pain, orthopnea, PND or palpitations. Denies high salt intake. Respiratory: Denies shortness of breath. Denies hemoptysis or cough. Gastrointestinal: Denies hematochezia, melena, constipation, diarrhea or fecal incontinence. Genitourinary: Denies dysuria or foul smelling urine. Musculoskeletal: Denies muscular weakness or pain. Skin: Denies abrasions, rashes or bug bites. Denies pruritus. Neurological: Denies post ictal confusion, tongue lacerations or convulsions. Denies tremors. Psychiatric: Denies auditory hallucinations. Denies visual hallucinations. Denies suicidal ideations. Denies homicidal ideations. Endocrine: Denies fatigue. Denies weight loss or weight gain. Physical Exam Vitals and Measurements T: 37.2 C (Skin) TMIN: 36.7 C (Oral) TMAX: 37.3 C (Oral) HR: 64 (Monitored) RR: 18 BP: 119/63 BP: 160/55(Line) SpO2: 93% HT: 171.5 cm WT: 77.5 kg BMI: 26.35 Weight Dosing Weight: 77.5 kg (11/18/24) Dosing Weight: 77.5 kg (11/17/24) General Appearance: Appears to be stable and in no acute distress, speaking in full sentences Head: Atraumatic and normocephalic EENT: EOMI, PERRLA, no oropharyngeal erythema, no tonsillar exudates, no conjunctival injection Neck: No thyromegaly, no cervical lymphadenopathy, trachea midline, no carotid bruits. No JVD. Cardiac: S1 and S2 normal, no JVD visualized Lungs: Good air entry bilaterally. No increased respiratory effort. No wheezes, rhonchi, or rales Abdomen: Soft, nontender, nondistended. Normoactive bowel sounds. No hepatosplenomegaly. Musculoskeletal: Full range of motion upper and lower extremities, right arm fistula is clean, dry,and intact, the patient's fistula has a thrill upon palpitation Extremities: No lower extremity pitting edema bilaterally, 1+ DP and PT pulses Neurological: CN II through XII grossly intact. Dermatologic: No clubbing. No cyanosis. No splinter hemorrhages. Lab Results 11/18 04:53 WBC: 6.2 Hgb: 9.7 L Hct: 29.5 L Platelet: 207 Neutrophil %: 59.7 Glucose Level: 87 Sodium Level: 136 Potassium Level: 4.4 BUN: 54.0 H Creatinine Lvl (s): 7.41 H 11/17 13:28 WBC: 6.1 Hgb: 9.4 L Hct: 28.7 L Platelet: 207 Neutrophil %: 51.7 Glucose Level: 95 Sodium Level: 136 Potassium Level: 4.3 BUN: 40.0 H Creatinine Lvl (s): 5.86 H 11/17 09:18 WBC: 6.2 Hgb: 10.0 L Hct: 30.5 L Platelet: 220 Neutrophil %: 62.2 Glucose Level: 98 Sodium Level: 139 Potassium Level: 4.4 BUN: 38.0 H Creatinine Lvl (s): 5.63 H Assessment/Plan [facility] Wilkinson) Chronic normocytic anemia Coronary artery disease status post PCI, 2014, 2024 Severe aortic stenosis (0.8 cm valve area) HFpEF GERD Full code, confirmed on admission, 11/17/2024 ESRD on dialysis The patient has been compliant with all his dialysis sessions. The patient is close to his dry weight, today. Patient states he has not missed any dialysis appointments. Per the patient, he still making urine. The patient denies any chest pain or shortness of breath, today. The patient is compliantwith his Plavix. The patient will have routine dialysis, today. The patient was seen evaluated during dialysis this morning. The patient was resting comfortably. The patient is very close to his routine dry weight. The patient will follow-up with his outpatient dialysis center upon discharge. Nephrology will continue to follow along while the patient is in the hospital. This case was discussed with attending, Dr. Mon, all changes will be made as an addendum. Problem List/Past Medical History Ongoing Anemia CAD IN [place] ARTERY Chronic heart failure with preserved ejection fraction (HFpEF) CKD (chronic kidney disease) DYSLIPIDEMIA ESRD on dialysis GERD - Gastro-esophageal reflux disease Gross hematuria H/O NON-ST ELEVATION MYOCARDIAL INFARCTION (NSTEMI) HYPERTENSION, BENIGN Mild aortic regurgitation Mild mitral regurgitation Mitral regurgitation Moderate aortic stenosis OVERWEIGHT (BMI 25.0-29.9) Parathyroidectomy PREOPERATIVE CLEARANCE PVC (PREMATURE VENTRICULAR CONTRACTION) PVCs (premature ventricular contractions) Severe aortic stenosis Smoker Procedure/Surgical History Cardiovascular stress testin11/18/23 PCI - Percutaneous coronary intervention: 09/06/14 Cardiac catheterization, combined right and left heart: 09/06/14 Placement of stent in coronary artery: 09/04/14 Excision of parathyroid gland: 2012 Cystoscopic laser lithotripsy of ureteric calculus: 1959 Cystoscopy Hand Blood transfusion Hernia repair Colonoscopy Endoscopy Medications Inpatient aspirin 81 mg oral delayed release tablet, 81 mg= 1 tab(s), Oral, Daily atorvastatin, 40 mg= 1 tab(s), Oral, qHS Dextrose 50% IV Push, 25 gram(s)= 50 mL, IV Push, AsDirected, PRN finasteride 5 mg oral tablet, 5 mg= 1 tab(s), Oral, Every other day isosorbide mononitrate 30 mg oral tablet, extended release, 30 mg= 1 tab(s), Oral, Sun/Tues/Thurs/Sat magnesium sulfate for IV bolus, 2 gram(s)= 50 mL, IV Piggyback, AsDirected, PRN magnesium sulfate for IV bolus, 4 gram(s)= 100 mL, IV Piggyback, AsDirected, PRN magnesium sulfate for IV bolus melatonin, 3 mg= 1 tab(s), Oral, qHS, PRN metoprolol succinate 25 mg oral TABLET extended release, 25 mg= 1 tab(s), Oral, qDay pantoprazole, 40 mg= 1 tab(s), Oral, qDay Plavix, 75 mg= 1 tab(s), Oral, qDay potassium chloride, 20 mEq= 1 tab(s), Oral, AsDirected, PRN potassium chloride, 40 mEq= 2 tab(s), Oral, AsDirected, PRN potassium chloride, 40 mEq= 2 tab(s), Oral, AsDirected, PRN potassium chloride bolus, 20 mEq= 100 mL, IV Piggyback, AsDirected, PRN Pulmicort Respules 0.5 mg/2 mL inhalation suspension, 0.5 mg= 2 mL, Inhalation, BIDRT Tylenol, 650 mg= 2 tab(s), Oral, q4h, PRN Home Arnuity Ellipta 200 mcg/inh inhalation powder, 200 mcg= 1 inh, Inhalation, q24h aspirin 81 mg oral delayed release tablet, 81 mg= 1 tab(s), Oral, Daily, 4 refills atorvastatin 40 mg oral tablet, 40 mg= 1 tab(s), Oral, qHS, 4 refills calcium acetate 667 mg oral capsule, 1334 mg= 2 cap(s), Oral, TIDAC finasteride 5 mg oral tablet, 5 mg= 1 tab(s), Oral, Every other day, 3 refills fluticasone proprionate NASAL 50 mcg/ spray, 50 mcg= 1 spray(s), Nostril, each, Daily isosorbide mononitrate 30 mg oral tablet, extended release, 30 mg= 1 tab(s), Oral, qAM, 2 refills metoprolol succinate 25 mg oral TABLET extended release, 25 mg= 1 tab(s), Oral, qDay, 1 refills nitroglycerin 0.4 mg sublingual tablet, 0.4 mg= 1 tab(s), Sublingual, q5min, PRN, 1 refills pantoprazole 40 mg oral enteric coated tablet, 1 tab(s), Oral, qDay, 2 refills Plavix 75 mg oral tablet, 75 mg= 1 tab(s), Oral, qDay, 4 refills Allergies lisinopril Cough Social History Smoking Status - 09/04/2014 Former smoker Alcohol Use: Current. Type: Liquor. Frequency: 1-2 times per month., 10/28/2024 Nutrition/Health Type of diet: Regular. Caffeine intake amount: 1-2 cups per day. Eating Difficulties None., 11/17/2024 Substance Abuse Use: Never., 11/06/2018 Tobacco Nicotine Use: Former smoker, quit more than 30 days ago. Type: Cigarettes. Tobacco use per day: 30.Number of years: 17., 06/05/2024 Nicotine Use: Former smoker, quit more than 30 days ago., 02/24/2024 Family History Cancer: Mother and Father. Cancer: Brother. Heart disease: Father. Health Status Family Member(s) Immunizations pneumococcal 13-valent conjugate vaccine: 0 unknown unit (12/24/14) pneumococcal 23-valent vaccine(Pneumovax: 0.5 unknown unit (03/04/17) SARS-CoV-2 (COVID-19) mRNA-1273 vaccine: 0.25 unknown unit (07/31/21) SARS-CoV-2 (COVID-19) mRNA-1273 vaccine: 0.5 unknown unit (11/08/20) SARS-CoV-2 (COVID-19) mRNA-1273 vaccine: 0.5 unknown unit (10/11/20) tetanus/diphth/pertuss (Tdap) adult/adol: 0.5 mL (10/31/18) Digitally Signed by DIANE MCGOWAN MD on 11/18/2024 10:38 AM [facility] [id number] Consult note Date of Service 11/18/2024 Reason for Consultation Routine Dialysis History of Present Illness Mr. Duran is an 83 year old male with a past medical history of non-STEMI, CAD, PCI in 2014 in 2023, severe aortic stenosis, HFpEF, asthma, GERD, chronic anemia, and ESRD on dialysis ([facility] - Dr. Wilkinson). The patient had a PCI stent placed 11/17. Patient had an EF of 55% with severe aortic valve stenosis and valve area by peak velocity of 0.8 cm . CTS surgery was consulted for TAVR. As the patient has routine dialysis. A nephrology consult was placed for his dialysis care and treatment. Today, thepatient was seen and evaluated. The patient does not have any acute events overnight. Patient is onroom air. The patient denies any chest pain or shortness of breath. The patient states he is makingurine. The patient denies any problems with his fistula. The patient denies any bleeding. The patient has no other acute concerns. Review of Systems Constitutional: Denies fever, chills or sweats. Denies lightheadedness, dizziness, or LOC. Eyes: Denies blurred vision. Ears, Nose, Mouth & Throat: Denies difficulty hearing, tinnitus, rhinorrhea or sore throat. Denies dysphagia or hoarse voice. Cardiovascular: Denies chest pain, orthopnea, PND or palpitations. Denies high salt intake. Respiratory: Denies shortness of breath. Denies hemoptysis or cough. Gastrointestinal: Denies hematochezia, melena, constipation, diarrhea or fecal incontinence. Genitourinary: Denies dysuria or foul smelling urine. Musculoskeletal: Denies muscular weakness or pain. Skin: Denies abrasions, rashes or bug bites. Denies pruritus. Neurological: Denies post ictal confusion, tongue lacerations or convulsions. Denies tremors. Psychiatric: Denies auditory hallucinations. Denies visual hallucinations. Denies suicidal ideations. Denies homicidal ideations. Endocrine: Denies fatigue. Denies weight loss or weight gain. Physical Exam Vitals and Measurements T: 37.2 C (Skin) TMIN: 36.7 C (Oral) TMAX: 37.3 C (Oral) HR: 64 (Monitored) RR: 18 BP: 119/63 BP: 160/55(Line) SpO2: 93% HT: 171.5 cm WT: 77.5 kg BMI: 26.35 Weight Dosing Weight: 77.5 kg (11/18/24) Dosing Weight: 77.5 kg (11/17/24) General Appearance: Appears to be stable and in no acute distress, speaking in full sentences Head: Atraumatic and normocephalic EENT: EOMI, PERRLA, no oropharyngeal erythema, no tonsillar exudates, no conjunctival injection Neck: No thyromegaly, no cervical lymphadenopathy, trachea midline, no carotid bruits. No JVD. Cardiac: S1 and S2 normal, no JVD visualized Lungs: Good air entry bilaterally. No increased respiratory effort. No wheezes, rhonchi, or rales Abdomen: Soft, nontender, nondistended. Normoactive bowel sounds. No hepatosplenomegaly. Musculoskeletal: Full range of motion upper and lower extremities, right arm fistula is clean, dry,and intact, the patient's fistula has a thrill upon palpitation Extremities: No lower extremity pitting edema bilaterally, 1+ DP and PT pulses Neurological: CN II through XII grossly intact. Dermatologic: No clubbing. No cyanosis. No splinter hemorrhages. Lab Results 11/18 04:53 WBC: 6.2 Hgb: 9.7 L Hct: 29.5 L Platelet: 207 Neutrophil %: 59.7 Glucose Level: 87 Sodium Level: 136 Potassium Level: 4.4 BUN: 54.0 H Creatinine Lvl (s): 7.41 H 11/17 13:28 WBC: 6.1 Hgb: 9.4 L Hct: 28.7 L Platelet: 207 Neutrophil %: 51.7 Glucose Level: 95 Sodium Level: 136 Potassium Level: 4.3 BUN: 40.0 H Creatinine Lvl (s): 5.86 H 11/17 09:18 WBC: 6.2 Hgb: 10.0 L Hct: 30.5 L Platelet: 220 Neutrophil %: 62.2 Glucose Level: 98 Sodium Level: 139 Potassium Level: 4.4 BUN: 38.0 H Creatinine Lvl (s): 5.63 H Assessment/Plan ESRD on Dialysis ([facility], Dr. Wilkinson) Chronic normocytic anemia Coronary artery disease status post PCI, 2014, 2023, 2024 Severe aortic stenosis (0.8 cm valve area) HFpEF GERD Full code, confirmed on admission, 11/17/2024 ESRD on dialysis The patient has been compliant with all his dialysis sessions. The patient is close to his dry weight, today. Patient states he has not missed any dialysis appointments. Per the patient, he still making urine. The patient denies any chest pain or shortness of breath, today. The patient is compliantwith his Plavix. The patient will have routine dialysis, today. The patient was seen evaluated during dialysis this morning. The patient was resting comfortably. The patient is very close to his routine dry weight. The patient will follow-up with his outpatient dialysis center upon discharge. Nephrology will continue to follow along while the patient is in the hospital. This case was discussed with attending, Dr. Mon, all changes will be made as an addendum. Problem List/Past Medical History Ongoing Anemia CAD IN [place] Chronic heart failure with preserved ejection fraction (HFpEF) CKD (chronic kidney disease) DYSLIPIDEMIA ESRD on dialysis GERD - Gastro-esophageal reflux disease Gross hematuria H/O NON-ST ELEVATION MYOCARDIAL INFARCTION (NSTEMI) HYPERTENSION, BENIGN Mild aortic regurgitation Mild mitral regurgitation Mitral regurgitation Moderate aortic stenosis OVERWEIGHT (BMI 25.0-29.9) Parathyroidectomy PREOPERATIVE CLEARANCE PVC (PREMATURE VENTRICULAR CONTRACTION) PVCs (premature ventricular contractions) Severe aortic stenosis Smoker Procedure/Surgical History Cardiovascular stress testin11/18/23 PCI - Percutaneous coronary intervention: 09/06/14 Cardiac catheterization, combined right and left heart: 09/06/14 Placement of stent in coronary artery: 09/04/14 Excision of parathyroid gland: 2012 Cystoscopic laser lithotripsy of ureteric calculus: 1959 Cystoscopy Hand Blood transfusion Hernia repair Colonoscopy Endoscopy Medications Inpatient aspirin 81 mg oral delayed release tablet, 81 mg= 1 tab(s), Oral, Daily atorvastatin, 40 mg= 1 tab(s), Oral, qHS Dextrose 50% IV Push, 25 gram(s)= 50 mL, IV Push, AsDirected, PRN finasteride 5 mg oral tablet, 5 mg= 1 tab(s), Oral, Every other day isosorbide mononitrate 30 mg oral tablet, extended release, 30 mg= 1 tab(s), Oral, Sun/Tues/Thurs/Sat magnesium sulfate for IV bolus, 2 gram(s)= 50 mL, IV Piggyback, AsDirected, PRN magnesium sulfate for IV bolus, 4 gram(s)= 100 mL, IV Piggyback, AsDirected, PRN magnesium sulfate for IV bolus melatonin, 3 mg= 1 tab(s), Oral, qHS, PRN metoprolol succinate 25 mg oral TABLET extended release, 25 mg= 1 tab(s), Oral, qDay pantoprazole, 40 mg= 1 tab(s), Oral, qDay Plavix, 75 mg= 1 tab(s), Oral, qDay potassium chloride, 20 mEq= 1 tab(s), Oral, AsDirected, PRN potassium chloride, 40 mEq= 2 tab(s), Oral, AsDirected, PRN potassium chloride, 40 mEq= 2 tab(s), Oral, AsDirected, PRN potassium chloride bolus, 20 mEq= 100 mL, IV Piggyback, AsDirected, PRN Pulmicort Respules 0.5 mg/2 mL inhalation suspension, 0.5 mg= 2 mL, Inhalation, BIDRT Tylenol, 650 mg= 2 tab(s), Oral, q4h, PRN Home Arnuity Ellipta 200 mcg/inh inhalation powder, 200 mcg= 1 inh, Inhalation, q24h aspirin 81 mg oral delayed release tablet, 81 mg= 1 tab(s), Oral, Daily, 4 refills atorvastatin 40 mg oral tablet, 40 mg= 1 tab(s), Oral, qHS, 4 refills calcium acetate 667 mg oral capsule, 1334 mg= 2 cap(s), Oral, TIDAC finasteride 5 mg oral tablet, 5 mg= 1 tab(s), Oral, Every other day, 3 refills fluticasone proprionate NASAL 50 mcg/ spray, 50 mcg= 1 spray(s), Nostril, each, Daily isosorbide mononitrate 30 mg oral tablet, extended release, 30 mg= 1 tab(s), Oral, qAM, 2 refills metoprolol succinate 25 mg oral TABLET extended release, 25 mg= 1 tab(s), Oral, qDay, 1 refills nitroglycerin 0.4 mg sublingual tablet, 0.4 mg= 1 tab(s), Sublingual, q5min, PRN, 1 refills pantoprazole 40 mg oral enteric coated tablet, 1 tab(s), Oral, qDay, 2 refills Plavix 75 mg oral tablet, 75 mg= 1 tab(s), Oral, qDay, 4 refills Allergies lisinopril Cough Social History Smoking Status - 09/04/2014 Former smoker Alcohol Use: Current. Type: Liquor. Frequency: 1-2 times per month., 10/28/2024 Nutrition/Health Type of diet: Regular. Caffeine intake amount: 1-2 cups per day. Eating Difficulties None., 11/17/2024 Substance Abuse Use: Never., 11/06/2018 Tobacco Nicotine Use: Former smoker, quit more than 30 days ago. Type: Cigarettes. Tobacco use per day: 30.Number of years: 17., 06/05/2024 Nicotine Use: Former smoker, quit more than 30 days ago., 02/24/2024 Family History Cancer: Mother and Father. Cancer: Brother. Heart disease: Father. Health Status Family Member(s) Immunizations pneumococcal 13-valent conjugate vaccine: 0 unknown unit (12/24/14) pneumococcal 23-valent vaccine(Pneumovax: 0.5 unknown unit (03/04/17) SARS-CoV-2 (COVID-19) mRNA-1273 vaccine: 0.25 unknown unit (07/31/21) SARS-CoV-2 (COVID-19) mRNA-1273 vaccine: 0.5 unknown unit (11/08/20) SARS-CoV-2 (COVID-19) mRNA-1273 vaccine: 0.5 unknown unit (10/11/20) tetanus/diphth/pertuss (Tdap) adult/adol: 0.5 mL (10/31/18) Digitally Signed by DIANE MCGOWAN MD on 11/18/2024 10:38 AM [facility] [id number] Cardiothoracic surgery Consult note Date of Service 11/17/2024 Reason for Consultation TAVR evaluation Referring Physician Nora Vega CNP History of Present Illness This is a split/shared visit with Dr. Paez This is a 83-year-old male with past medical history significant for non-STEMI, CAD, PCI in 2014 and 2023, severe aortic stenosis, HFpEF, asthma, GERD, chronic anemia, and ESRD on dialysis (MWF) - Dr. Wilkinson. He has noted increased shortness of breath and fatigue over the past several months. Denies chest pain, syncope, PND, or orthopnea. He underwent a heart catheterization on 05/11/2025 with stent with balloon angioplasty to the left circumflex, with noted residual mid 80% RCA disease. He returned for a heart catheterization on 11/05/2024 for a stent to the RCA but was found to have in-stent restenosis of the left circumflex stent. Drug-coated balloon angioplasty was performed at that time.He returns today 11/17 and had PCI stent to the RCA. Echocardiogram 09/24/2024 Ejection fraction 55% 5severe aortic valve stenosis, mild aortic regurgitation, peak systolic velocity 3.4 m/second. Mean systolic gradient is 24 mmHg, valve area by peak velocity is 0.8 cm . Aortic root is mildly dilated at 4.1 cm Plan is for TAVR procedure. We have been consulted to evaluate for TAVR Review of Systems Constitutional: Denies fever, chills, change in weight or appetite, or fatigue HEENT: Denies blurry vision, dysphagia, wears glasses, has his own teeth Respiratory: Denies productive or nonproductive cough see HPI CV: See HPI Vascular: Denies claudication, DVT, rest pain GI: Denies nausea, vomiting, constipation, diarrhea, or melena : Denies dysuria, nocturia, hematuria, frequency or incontinence Neuro: Denies weakness, seizures, tremors, memory loss or change in level consciousness Endo: Denies heat/cold intolerance, denies polyuria, polydipsia, polyphagia Chemo/oncology: Denies unusual bleeding bruising or anemia Muscular/skeletal: Denies arthralgia, back pain, myalgia or limited motion Psych: Denies anxiousness nervousness or depression Physical Exam Vitals and Measurements T: 37.3 C (Oral) TMIN: 36.6 C (Oral) TMAX: 37.3 C (Oral) HR: 68 (Monitored) RR: 18 BP: 131/50 BP: 160/55(Line) SpO2: 94% HT: 171.5 cm WT: 77.5 kg BMI: 26.35 Weight Dosing Weight: 77.5 kg (11/17/24) Dosing Weight: 77.5 kg (11/17/24) Mentation: Alert and oriented x 4, appropriate HEENT: Atraumatic, normocephalic, PERRLA, trachea midline, hearing intact Heart: Regular S1-S2, monitor normal sinus rhythm, + murmur Lungs: Bilateral, clear, respirations easy regular nonlabored, on room air Abdomen: Soft, nontender, bowel sounds present Extremities: Normal capillary refill, no edema noted, pulses +2/x 4 Right forearm AV fistula with +/bruit, +/thrill Neuro: Cranial nerves II through XII intact Skin: No rashes noted skin intact Lab Results 11/17 13:28 WBC: 6.1 Hgb: 9.4 L Hct: 28.7 L Platelet: 207 Neutrophil %: 51.7 Glucose Level: 95 Sodium Level: 136 Potassium Level: 4.3 BUN: 40.0 H Creatinine Lvl (s): 5.86 H 11/17 09:18 WBC: 6.2 Hgb: 10.0 L Hct: 30.5 L Platelet: 220 Neutrophil %: 62.2 Glucose Level: 98 Sodium Level: 139 Potassium Level: 4.4 BUN: 38.0 H Creatinine Lvl (s): 5.63 H Imaging Results and Diagnostics Heart catheterization report pending Aortic valve: The valve is probably trileaflet. The leaflets are moderately thickened and moderately calcified. Cusp separation is reduced. The peak systolic velocity is 3.4 m/sec. The systolic velocity-time integralis 74.5 cm. The mean systolic gradient is 24 mm Hg. The LVOT to aortic valve VTI ratio is 0.25. The valve area by VTI is0.8 cm . The valve area by peak velocity is 0.8 cm . Doppler: There is severe stenosis. There is mild regurgitation. Tricuspid valve: Annular calcium noted. Leaflet separation is normal. The regurgitant peak velocityis 2.8 m/sec. Doppler: Transvalvular velocity is within the normal range. There is no evidence for stenosis. There is no regurgitation. Pulmonic valve: The valve is structurally normal. Cusp separation is normal. The peak systolic velocity is 0.89 m/sec. Doppler: Transvalvular velocity is within the normal range. There is no regurgitation. [1] Left ventricle: The cavity size is normal. Wall thickness is moderately increased. Basal Septal Left Ventricular Hypertrophy Systolic function is normal. The estimated ejection fraction is 55% +/-5%. Wall motion is normal; there are no regional wall motion abnormalities. The wall mass is 308 g. The wall mass index is 159 g/m . Diastolic dysfunction present but unable to assess severity. Ventricular septum: Thickness is moderately increased. Left atrium: The atrium is dilated. The volume index by biplane method is 40 ml/m . Right ventricle: The cavity size is normal. Wall thickness is normal. Systolic function is normal. The RV systolic pressure by Doppler is 34 mm Hg. Right atrium: The atrium is normal in size. The estimated right atrial pressure is 3 mm Hg. Mitral valve: The annulus is moderately calcified. Leaflet separation is normal. The pressure half-time is 69 ms. The peak E/A ratio is 0.46. The valve area (LVOT continuity) is 2.0 cm . Doppler: Transvalvular velocity is within the normal range. There is no evidence for stenosis. There is moderate very eccentric regurgitation is noted. Coanda effect seen. The mean diastolic gradient is 2 mm Hg. The valve area by pressure half-time is 3.2 cm . [2] EKG Normal sinus rhythm Assessment/Plan 1. Severe aortic stenosis 2. Coronary artery disease 3. Hypertension 4. Hyperlipidemia 5. Heart failure with preserved ejection fraction 6. GERD (gastroesophageal reflux disease) 7. Chronic anemia 8. ESRD on dialysis 9. Asthma Surgical evaluation to follow STS risk assessment: Procedure Type: Isolated AVR Perioperative Outcome Estimate % Operative Mortality 8.17% Morbidity & Mortality 40.9% Stroke 2.89% Renal Failure NA Reoperation 10.9% Prolonged Ventilation 11.3% Deep Sternal Wound Infection 0.055% Long Hospital Stay (>14 days) 21.7% Short Hospital Stay (<6 days)* 12.6% Problem List/Past Medical History Ongoing Anemia CAD IN [place] Chronic heart failure with preserved ejection fraction (HFpEF) CKD (chronic kidney disease) DYSLIPIDEMIA ESRD on dialysis GERD - Gastro-esophageal reflux disease Gross hematuria H/O NON-ST ELEVATION MYOCARDIAL INFARCTION (NSTEMI) HYPERTENSION, BENIGN Mild aortic regurgitation Mild mitral regurgitation Mitral regurgitation Moderate aortic stenosis OVERWEIGHT (BMI 25.0-29.9) Parathyroidectomy PREOPERATIVE CLEARANCE PVC (PREMATURE VENTRICULAR CONTRACTION) PVCs (premature ventricular contractions) Severe aortic stenosis Smoker Procedure/Surgical History Cardiovascular stress testin11/18/23 PCI - Percutaneous coronary intervention: 09/06/14 Cardiac catheterization, combined right and left heart: 09/06/14 Placement of stent in coronary artery: 09/04/14 Excision of parathyroid gland: 2012 Cystoscopic laser lithotripsy of ureteric calculus: 1960 Cystoscopy Hand Blood transfusion Hernia repair Colonoscopy Endoscopy Medications Inpatient Dextrose 50% IV Push, 25 gram(s)= 50 mL, IV Push, AsDirected, PRN magnesium sulfate for IV bolus, 2 gram(s)= 50 mL, IV Piggyback, AsDirected, PRN magnesium sulfate for IV bolus, 4 gram(s)= 100 mL, IV Piggyback, AsDirected, PRN magnesium sulfate for IV bolus melatonin, 3 mg= 1 tab(s), Oral, qHS, PRN potassium chloride, 20 mEq= 1 tab(s), Oral, AsDirected, PRN potassium chloride, 40 mEq= 2 tab(s), Oral, AsDirected, PRN potassium chloride, 40 mEq= 2 tab(s), Oral, AsDirected, PRN potassium chloride bolus, 20 mEq= 100 mL, IV Piggyback, AsDirected, PRN Tylenol, 650 mg= 2 tab(s), Oral, q4h, PRN Home Arnuity Ellipta 200 mcg/inh inhalation powder, 200 mcg= 1 inh, Inhalation, q24h aspirin 81 mg oral delayed release tablet, 81 mg= 1 tab(s), Oral, Daily, 4 refills atorvastatin 40 mg oral tablet, 40 mg= 1 tab(s), Oral, qHS, 4 refills calcium acetate 667 mg oral capsule, 1334 mg= 2 cap(s), Oral, TIDAC finasteride 5 mg oral tablet, 5 mg= 1 tab(s), Oral, Every other day, 3 refills fluticasone proprionate NASAL 50 mcg/ spray, 50 mcg= 1 spray(s), Nostril, each, Daily isosorbide mononitrate 30 mg oral tablet, extended release, 30 mg= 1 tab(s), Oral, qAM, 2 refills metoprolol succinate 25 mg oral TABLET extended release, 25 mg= 1 tab(s), Oral, qDay, 1 refills nitroglycerin 0.4 mg sublingual tablet, 0.4 mg= 1 tab(s), Sublingual, q5min, PRN, 1 refills pantoprazole 40 mg oral enteric coated tablet, 1 tab(s), Oral, qDay, 2 refills Plavix 75 mg oral tablet, 75 mg= 1 tab(s), Oral, qDay, 4 refills Allergies lisinopril Cough Social History Quit smoking in 1975, 16-year history of smoking 1 pack/day Drinks a jacqueline every Saturday Denies drug usage Retired from [employer] Lives with Family History Cancer: Mother and Father. Cancer: Brother. Heart disease: Father. Health Status Family Member(s) Immunizations pneumococcal 13-valent conjugate vaccine: 0 unknown unit (12/24/14) pneumococcal 23-valent vaccine(Pneumovax: 0.5 unknown unit (03/04/17) SARS-CoV-2 (COVID-19) mRNA-1273 vaccine: 0.25 unknown unit (07/31/21) SARS-CoV-2 (COVID-19) mRNA-1273 vaccine: 0.5 unknown unit (11/08/20) SARS-CoV-2 (COVID-19) mRNA-1273 vaccine: 0.5 unknown unit (10/11/20) tetanus/diphth/pertuss (Tdap) adult/adol: 0.5 mL (10/31/18) This encounter independently took approximately 60 minutes obtaining past medical history in the EMR, reviewing recent labs and tests, conducting face to face visit and examination with patient at the bedside, and documenting details of today's visit. [1] Echocardiogram, Adult - CV; [facility] 09/24/2024 09:59 EST [2] Echocardiogram, Adult - CV; [facility] 09/24/2024 09:59 EST Digitally Signed by TE AGUILAR on 11/17/2024 04:03 PM [facility] [id number] Cardiothoracic surgery Consult note Date of Service 11/17/2024 Reason for Consultation TAVR evaluation Referring Physician Nora Vega CNP History of Present Illness This is a split/shared visit with Dr. Paez This is a 83-year-old male with past medical history significant for non-STEMI, CAD, PCI in 2014 and 2023, severe aortic stenosis, HFpEF, asthma, GERD, chronic anemia, and ESRD on dialysis (MWF) - Dr. Wilkinson. He has noted increased shortness of breath and fatigue over the past several months. Denies chest pain, syncope, PND, or orthopnea. He underwent a heart catheterization on 05/11/2025 with stent with balloon angioplasty to the left circumflex, with noted residual mid 80% RCA disease. He returned for a heart catheterization on 11/05/2024 for a stent to the RCA but was found to have in-stent restenosis of the left circumflex stent. Drug-coated balloon angioplasty was performed at that time.He returns today 11/17 and had PCI stent to the RCA. Echocardiogram 09/24/2024 Ejection fraction 55% 5severe aortic valve stenosis, mild aortic regurgitation, peak systolic velocity 3.4 m/second. Mean systolic gradient is 24 mmHg, valve area by peak velocity is 0.8 cm . Aortic root is mildly dilated at 4.1 cm Plan is for TAVR procedure. We have been consulted to evaluate for TAVR Review of Systems Constitutional: Denies fever, chills, change in weight or appetite, or fatigue HEENT: Denies blurry vision, dysphagia, wears glasses, has his own teeth Respiratory: Denies productive or nonproductive cough see HPI CV: See HPI Vascular: Denies claudication, DVT, rest pain GI: Denies nausea, vomiting, constipation, diarrhea, or melena : Denies dysuria, nocturia, hematuria, frequency or incontinence Neuro: Denies weakness, seizures, tremors, memory loss or change in level consciousness Endo: Denies heat/cold intolerance, denies polyuria, polydipsia, polyphagia Chemo/oncology: Denies unusual bleeding bruising or anemia Muscular/skeletal: Denies arthralgia, back pain, myalgia or limited motion Psych: Denies anxiousness nervousness or depression Physical Exam Vitals and Measurements T: 37.3 C (Oral) TMIN: 36.6 C (Oral) TMAX: 37.3 C (Oral) HR: 68 (Monitored) RR: 18 BP: 131/50 BP: 160/55(Line) SpO2: 94% HT: 171.5 cm WT: 77.5 kg BMI: 26.35 Weight Dosing Weight: 77.5 kg (11/17/24) Dosing Weight: 77.5 kg (11/17/24) Mentation: Alert and oriented x 4, appropriate HEENT: Atraumatic, normocephalic, PERRLA, trachea midline, hearing intact Heart: Regular S1-S2, monitor normal sinus rhythm, + murmur Lungs: Bilateral, clear, respirations easy regular nonlabored, on room air Abdomen: Soft, nontender, bowel sounds present Extremities: Normal capillary refill, no edema noted, pulses +2/x 4 Right forearm AV fistula with +/bruit, +/thrill Neuro: Cranial nerves II through XII intact Skin: No rashes noted skin intact Lab Results 11/17 13:28 WBC: 6.1 Hgb: 9.4 L Hct: 28.7 L Platelet: 207 Neutrophil %: 51.7 Glucose Level: 95 Sodium Level: 136 Potassium Level: 4.3 BUN: 40.0 H Creatinine Lvl (s): 5.86 H 11/17 09:18 WBC: 6.2 Hgb: 10.0 L Hct: 30.5 L Platelet: 220 Neutrophil %: 62.2 Glucose Level: 98 Sodium Level: 139 Potassium Level: 4.4 BUN: 38.0 H Creatinine Lvl (s): 5.63 H Imaging Results and Diagnostics Heart catheterization report pending Aortic valve: The valve is probably trileaflet. The leaflets are moderately thickened and moderately calcified. Cusp separation is reduced. The peak systolic velocity is 3.4 m/sec. The systolic velocity-time integralis 74.5 cm. The mean systolic gradient is 24 mm Hg. The LVOT to aortic valve VTI ratio is 0.25. The valve area by VTI is0.8 cm . The valve area by peak velocity is 0.8 cm . Doppler: There is severe stenosis. There is mild regurgitation. Tricuspid valve: Annular calcium noted. Leaflet separation is normal. The regurgitant peak velocityis 2.8 m/sec. Doppler: Transvalvular velocity is within the normal range. There is no evidence for stenosis. There is no regurgitation. Pulmonic valve: The valve is structurally normal. Cusp separation is normal. The peak systolic velocity is 0.89 m/sec. Doppler: Transvalvular velocity is within the normal range. There is no regurgitation. [1] Left ventricle: The cavity size is normal. Wall thickness is moderately increased. Basal Septal Left Ventricular Hypertrophy Systolic function is normal. The estimated ejection fraction is 55% +/-5%. Wall motion is normal; there are no regional wall motion abnormalities. The wall mass is 308 g. The wall mass index is 159 g/m . Diastolic dysfunction present but unable to assess severity. Ventricular septum: Thickness is moderately increased. Left atrium: The atrium is dilated. The volume index by biplane method is 40 ml/m . Right ventricle: The cavity size is normal. Wall thickness is normal. Systolic function is normal. The RV systolic pressure by Doppler is 34 mm Hg. Right atrium: The atrium is normal in size. The estimated right atrial pressure is 3 mm Hg. Mitral valve: The annulus is moderately calcified. Leaflet separation is normal. The pressure half-time is 69 ms. The peak E/A ratio is 0.46. The valve area (LVOT continuity) is 2.0 cm . Doppler: Transvalvular velocity is within the normal range. There is no evidence for stenosis. There is moderate very eccentric regurgitation is noted. Coanda effect seen. The mean diastolic gradient is 2 mm Hg. The valve area by pressure half-time is 3.2 cm . [2] EKG Normal sinus rhythm Assessment/Plan 1. Severe aortic stenosis 2. Coronary artery disease 3. Hypertension 4. Hyperlipidemia 5. Heart failure with preserved ejection fraction 6. GERD (gastroesophageal reflux disease) 7. Chronic anemia 8. ESRD on dialysis 9. Asthma Surgical evaluation to follow STS risk assessment: Procedure Type: Isolated AVR Perioperative Outcome Estimate % Operative Mortality 8.17% Morbidity & Mortality 40.9% Stroke 2.89% Renal Failure NA Reoperation 10.9% Prolonged Ventilation 11.3% Deep Sternal Wound Infection 0.055% Long Hospital Stay (>14 days) 21.7% Short Hospital Stay (<6 days)* 12.6% Problem List/Past Medical History Ongoing Anemia CAD IN GRAND [place] ARTERY Chronic heart failure with preserved ejection fraction (HFpEF) CKD (chronic kidney disease) DYSLIPIDEMIA ESRD on dialysis GERD - Gastro-esophageal reflux disease Gross hematuria H/O NON-ST ELEVATION MYOCARDIAL INFARCTION (NSTEMI) HYPERTENSION, BENIGN Mild aortic regurgitation Mild mitral regurgitation Mitral regurgitation Moderate aortic stenosis OVERWEIGHT (BMI 25.0-29.9) Parathyroidectomy PREOPERATIVE CLEARANCE PVC (PREMATURE VENTRICULAR CONTRACTION) PVCs (premature ventricular contractions) Severe aortic stenosis Smoker Procedure/Surgical History Cardiovascular stress testin11/18/23 PCI - Percutaneous coronary intervention: 09/06/14 Cardiac catheterization, combined right and left heart: 09/06/14 Placement of stent in coronary artery: 09/04/14 Excision of parathyroid gland: 2012 Cystoscopic laser lithotripsy of ureteric calculus: 1959 Cystoscopy Hand Blood transfusion Hernia repair Colonoscopy Endoscopy Medications Inpatient Dextrose 50% IV Push, 25 gram(s)= 50 mL, IV Push, AsDirected, PRN magnesium sulfate for IV bolus, 2 gram(s)= 50 mL, IV Piggyback, AsDirected, PRN magnesium sulfate for IV bolus, 4 gram(s)= 100 mL, IV Piggyback, AsDirected, PRN magnesium sulfate for IV bolus melatonin, 3 mg= 1 tab(s), Oral, qHS, PRN potassium chloride, 20 mEq= 1 tab(s), Oral, AsDirected, PRN potassium chloride, 40 mEq= 2 tab(s), Oral, AsDirected, PRN potassium chloride, 40 mEq= 2 tab(s), Oral, AsDirected, PRN potassium chloride bolus, 20 mEq= 100 mL, IV Piggyback, AsDirected, PRN Tylenol, 650 mg= 2 tab(s), Oral, q4h, PRN Home Arnuity Ellipta 200 mcg/inh inhalation powder, 200 mcg= 1 inh, Inhalation, q24h aspirin 81 mg oral delayed release tablet, 81 mg= 1 tab(s), Oral, Daily, 4 refills atorvastatin 40 mg oral tablet, 40 mg= 1 tab(s), Oral, qHS, 4 refills calcium acetate 667 mg oral capsule, 1334 mg= 2 cap(s), Oral, TIDAC finasteride 5 mg oral tablet, 5 mg= 1 tab(s), Oral, Every other day, 3 refills fluticasone proprionate NASAL 50 mcg/ spray, 50 mcg= 1 spray(s), Nostril, each, Daily isosorbide mononitrate 30 mg oral tablet, extended release, 30 mg= 1 tab(s), Oral, qAM, 2 refills metoprolol succinate 25 mg oral TABLET extended release, 25 mg= 1 tab(s), Oral, qDay, 1 refills nitroglycerin 0.4 mg sublingual tablet, 0.4 mg= 1 tab(s), Sublingual, q5min, PRN, 1 refills pantoprazole 40 mg oral enteric coated tablet, 1 tab(s), Oral, qDay, 2 refills Plavix 75 mg oral tablet, 75 mg= 1 tab(s), Oral, qDay, 4 refills Allergies lisinopril Cough Social History Quit smoking in 1975, 16-year history of smoking 1 pack/day Drinks a jacqueline every Saturday Denies drug usage Retired from [employer] Lives with Family History Cancer: Mother and Father. Cancer: Brother. Heart disease: Father. Health Status Family Member(s) Immunizations pneumococcal 13-valent conjugate vaccine: 0 unknown unit (12/24/14) pneumococcal 23-valent vaccine(Pneumovax: 0.5 unknown unit (03/04/17) SARS-CoV-2 (COVID-19) mRNA-1273 vaccine: 0.25 unknown unit (07/31/21) SARS-CoV-2 (COVID-19) mRNA-1273 vaccine: 0.5 unknown unit (11/08/20) SARS-CoV-2 (COVID-19) mRNA-1273 vaccine: 0.5 unknown unit (10/11/20) tetanus/diphth/pertuss (Tdap) adult/adol: 0.5 mL (10/31/18) This encounter independently took approximately 60 minutes obtaining past medical history in the EMR, reviewing recent labs and tests, conducting face to face visit and examination with patient at the bedside, and documenting details of today's visit. [1] Echocardiogram, Adult - CV; [facility] 09/24/2024 09:59 EST [2] Echocardiogram, Adult - CV; [facility] 09/24/2024 09:59 EST Digitally Signed by TE AGUILAR on 11/17/2024 04:03 PM [id number]* Exam Date Time Procedure Performing Provider Status 11/17/24 1:02 PM Electrocardiogram - EKG - CV TRUDY STARKS MD; Auth (Verified) ECG Final Report SINUS RHYTHM PROLONGED DC INTERVAL PROBABLE LEFT ATRIAL ENLARGEMENT RIGHT BUNDLE BRANCH BLOCK Electronic Signature: DAVIDE STARKS MD 11/18/2024 11:39:01 [id number] Note* Exam Date Time Procedure Performing Provider Status 11/17/24 11:10 AM Percut Transluminal Coronary Angioplasty JANN ALLEN MD; Auth (Verified) [id number] Hospital Discharge instructions Patient Education 11/05/2024 16:34:36 3- Heart Cath/PCI groin (05/2018) (CUSTOM) HEART CATHETERIZATION/PCI (groin) Discharge Instructions DIET INSTRUCTIONS Drink plenty of fluids for the next 48 hours to help your kidneys flush the heart cath dye out of your system ACTIVITIES May go up and down stairs CAREFULLY Do not drive car FOR 24 HOURS No heavy lifting GREATER THAN 5 POUNDS or pushing or straining FOR 5 DAYS Someone must stay with you at home after the procedure until the morning. BATHING/SHOWERING May tub bathe in 1 week May shower tomorrow WOUND CARE You will go home with the dressing over your heart cath site. Keep the dressing on for the next 24 hours, then change to a bandaid for 24 hours and then leave open to air. Some degree of bruising and tenderness is normal around the heart cath site. It will take a while for any bruising to completely resolve. Keep your site clean and dry. You need to report the following to your post anesthesia nurse: Any draining or oozing from the site Any swelling at the site Any increased pain or tenderness at the site Any numbness in your leg where the procedure was done Any signs of infection IMPORTANT! CALL 911 FOR ANY BLEEDING OR SWELLING AT THE PROCEDURE SITE If there is any large amount of bleeding, you or someone else need to apply direct pressure to the site (just like the nurse did in the heart lab after your procedure). It is very important that you hold constant pressure. Do not release the pressure to check if the bleeding has stopped. You then need to be transported to the nearest emergency room. WATCH FOR SIGNS OF INFECTION (Usually appears 36-48 hours after surgery) A temperature above 100.5 Redness or swelling Increased pain Foul odor or drainage If you have any questions, please call your doctor at the number listed on your follow up instructions. Follow all instructions given to you by your physician Document Released: 07/29/2006 Document Revised: 07/15/2013 Document Reviewed: 07/30/2014 ExitCare Patient Information 2015 [employer]. This information is not intended to replace advicegiven to you by your health care provider. Make sure you discuss any questions you have with your health care provider. 11/05/2024 16:33:07 Moderate Conscious Sedation, Adult, Care After Moderate Conscious Sedation, Adult, Care After These instructions provide you with information about caring for yourself after your procedure. Your health care provider may also give you more specific instructions. Your treatment has been plannedaccording to current medical practices, but problems sometimes occur. Call your health care provider if you have any problems or questions after your procedure. What can I expect after the procedure? After your procedure, it is common: To feel sleepy for several hours. To feel clumsy and have poor balance for several hours. To have poor judgment for several hours. To vomit if you eat too soon. Follow these instructions at home: For at least 24 hours after the procedure: Do not: ?Participate in activities where you could fall or become injured. ?Drive. ?Use heavy machinery. ?Drink alcohol. ?Take sleeping pills or medicines that cause drowsiness. ?Make important decisions or sign legal documents. ?Take care of children on your own. Rest. Eating and drinking Follow the diet recommended by your health care provider. If you vomit: ?Drink water, juice, or soup when you can drink without vomiting. ?Make sure you have little or no nausea before eating solid foods. General instructions Have a responsible adult stay with you until you are awake and alert. Take jjzo-czi-klxrfrm and prescription medicines only as told by your health care provider. If you smoke, do not smoke without supervision. Keep all follow-up visits as told by your health care provider. This is important. Contact a health care provider if: You keep feeling nauseous or you keep vomiting. You feel light-headed. You develop a rash. You have a fever. Get help right away if: You have trouble breathing. This information is not intended to replace advice given to you by your health care provider. Make sure you discuss any questions you have with your health care provider. Document Released: 05/19/2014 Document Revised: 07/11/2018 Document Reviewed: 11/17/2016 [employer] Patient Education 2020 [employer] Follow Up Care 10/29/2024 10:04:20 With:*[facility] will contact you for an appointment in 1-2 weeks If you have any questions please call:[phone]. Address: When: Unknown [facility] 03-27-2025 Summary of episode note Discharge Instructions Thank you for allowing [facility] to assist you with your healthcare needs. The following is importantdischarge information regarding your hospital visit. Your Care Team JULIO LICEA MD What to do next Scheduled Follow-Up Appointments Appointment Type When Where Contact Information StatusCV Procedure - Heart Lab/Hybrid OR 510:30 AM EDT Heart Lab Confirmed Follow Up Appointments Follow Up with *[facility] will contact you for an appointment in 1-2 weeks If you have any questions please call:[phone]. The Following Activity and Diet Have Been Ordered for You Discharge Activity - Ordered -- Lifting Restricted less than 5 pounds, no heavy lifting for 5 days followed by return to normal activities, 11/05/24 13:33:00 EDT Discharge Diet - Ordered -- No changes were made to your diet during your hospital stay. Please resume your pre hospitalization diet on discharge., 11/05/24 13:33:00 EDT Allergies lisinopril Cough Medications Please ask your primary doctor or pharmacist before taking any other medication not listed, including over the counter drugs, herbal medications, vitamins and or supplements as they may interact withyour home medications. What How Much When Why Instructions Last Dose Changed aspirin (aspirin 81 mg oral delayed release tablet) 1 tab(s) by mouth Every day Duration: 90 Days Pickup at [facility] [address] Changed clopidogrel (Plavix 75 mg oral tablet) 1 tab(s) by mouth Once a day Duration: 90 Days Pickup at [facility] [address] Unchanged atorvastatin (atorvastatin 40 mg oral tablet) 1 tab(s) by mouth Daily at bedtime Duration: 90 Days Unchanged calcium acetate (calcium acetate 667 mg oral capsule) 2 cap by mouth Three (3) times a day before meals Unchanged finasteride (finasteride 5 mg oral tablet) 1 tab(s) by mouth Every other day Gross hematuria Duration: 90 Days Unchanged fluticasone (Arnuity Ellipta 200 mcg/ inh inhalation powder) 1 inh by inhalation Every 24 hours Unchanged fluticasone nasal (fluticasone proprionate NASAL 50 mcg/ spray) 1 spray(s) each nostril Every day Unchanged isosorbide mononitrate (isosorbide mononitrate 30 mg oral tablet, extended release) 1 tab(s) by mouth Once a day (in the morning) , , sat and saturday Unchanged metoprolol (metoprolol succinate 25 mg oral TABLET extended release) 1 tab(s) by mouth Once a day Do not crush or chew (controlled release) Unchanged nitroGLYcerin (nitroglycerin 0.4 mg sublingual tablet) 1 tab(s) under the tongue Every 5 minutes as needed for for chest pain Unchanged pantoprazole (pantoprazole 40 mg oral enteric coated tablet) 1 tab(s) by mouth Once a day Pharmacy Information [facility]: [phone] [place], [place] [phone] Please take this list to your next doctor s visit. Bring all medications you take, including over the counter medications, herbals and other supplements with you to your doctor s visit. Patients and families are reminded to discard old lists and to update any records with all medication providers or retail pharmacies. Education Materials HEART CATHETERIZATION/PCI (groin) Discharge Instructions DIET INSTRUCTIONS Drink plenty of fluids for the next 48 hours to help your kidneys flush the heart cath dye out of your system ACTIVITIES May go up and down stairs CAREFULLY Do not drive car FOR 24 HOURS No heavy lifting GREATER THAN 5 POUNDS or pushing or straining FOR 5 DAYS Someone must stay with you at home after the procedure until the morning. BATHING/SHOWERING May tub bathe in 1 week May shower tomorrow WOUND CARE You will go home with the dressing over your heart cath site. Keep the dressing on for the next 24 hours, then change to a bandaid for 24 hours and then leave open to air. Some degree of bruising and tenderness is normal around the heart cath site. It will take a while for any bruising to completely resolve. Keep your site clean and dry. You need to report the following to your post anesthesia nurse: Any draining or oozing from the site Any swelling at the site Any increased pain or tenderness at the site Any numbness in your leg where the procedure was done Any signs of infection IMPORTANT! CALL 911 FOR ANY BLEEDING OR SWELLING AT THE PROCEDURE SITE If there is any large amount of bleeding, you or someone else need to apply direct pressure to the site (just like the nurse did in the heart lab after your procedure). It is very important that you hold constant pressure. Do not release the pressure to check if the bleeding has stopped. You then need to be transported to the nearest emergency room. WATCH FOR SIGNS OF INFECTION (Usually appears 36-48 hours after surgery) A temperature above 100.5 Redness or swelling Increased pain Foul odor or drainage If you have any questions, please call your doctor at the number listed on your follow up instructions. Follow all instructions given to you by your physician Document Released: 07/29/2006 Document Revised: 07/15/2013 Document Reviewed: 07/30/2014 ExitCare Patient Information 2015 [employer]. This information is not intended to replace advicegiven to you by your health care provider. Make sure you discuss any questions you have with your health care provider. Moderate Conscious Sedation, Adult, Care After These instructions provide you with information about caring for yourself after your procedure. Your health care provider may also give you more specific instructions. Your treatment has been plannedaccording to current medical practices, but problems sometimes occur. Call your health care provider if you have any problems or questions after your procedure. What can I expect after the procedure? After your procedure, it is common: To feel sleepy for several hours. To feel clumsy and have poor balance for several hours. To have poor judgment for several hours. To vomit if you eat too soon. Follow these instructions at home: For at least 24 hours after the procedure: Do not: ? Participate in activities where you could fall or become injured. ? Drive. ? Use heavy machinery. ? Drink alcohol. ? Take sleeping pills or medicines that cause drowsiness. ? Make important decisions or sign legal documents. ? Take care of children on your own. Rest. Eating and drinking Follow the diet recommended by your health care provider. If you vomit: ? Drink water, juice, or soup when you can drink without vomiting. ? Make sure you have little or no nausea before eating solid foods. General instructions Have a responsible adult stay with you until you are awake and alert. Take olla-bdy-pqutubb and prescription medicines only as told by your health care provider. If you smoke, do not smoke without supervision. Keep all follow-up visits as told by your health care provider. This is important. Contact a health care provider if: You keep feeling nauseous or you keep vomiting. You feel light-headed. You develop a rash. You have a fever. Get help right away if: You have trouble breathing. This information is not intended to replace advice given to you by your health care provider. Make sure you discuss any questions you have with your health care provider. Document Released: 05/19/2014 Document Revised: 07/11/2018 Document Reviewed: 11/17/2016 [employer] Patient Education 2020 [employer] Additional Information VACCINATE! IT SAVES LIVES! Members of the community who have not yet received the COVID-19 vaccine and would like to receive it can visit one of [facility] vaccine clinics. There are many vaccine clinic locations within the [facility]. For locations and available times, please visit [email or web address].[place].gov/. It is important to note that some COVID mobile vaccine clinics are held outdoors and may be canceled in rainy or stormy conditions. To learn more about pediatric vaccinations (ages 5-11), we invite you to visit the [facility] webpage. [email or web address] learn more about the COVID-19 vaccine, we invite you to visit the CDC website for a list of frequently asked questions.https://www.cdc.gov/coronavirus/2019-ncov/vaccines/faq.html [facility] Patient Portal Access Instructions: Stay connected with your healthcare team and access your personal medical information anytime with the [facility] Patient Portal. Please follow the directions below to create your [facility] account: 1.Access the email account you provided upon registration to the hospital/physician office.2.Look for an invitation email from [facility].3.Open the email and access the invitation link: AcceptInvitation to [facility].4.Fill in the required wilkinson to create your account. To access your account, visit [employer] | [email or web address]. Click the blue button labeled Access Patient Portal and then log in with the username and password that you created in the steps above. You will be able to view your test results, lab results, a summary of your visits, upcoming appointments and more. There is also a convenient messaging option where you can send secure messages to your p rovider. In addition, you will have the ability to download any documents or summaries to your computer and/or send the information securely to a physician. Remember that your healthcare information is confidential, so carefully consider who you will allowto register on the [facility] Patient Portal for access to your information. You can also access the [facility] Patient Portal on the [employer] samanta. Simply click on Patient Portal and then log into your account. If you would like to receive a full copy of your medical records, please contact the [facility] Medical Records Department by calling [phone], Saturday through Saturday between 8 a.m. and 4:30 p.m. HOW TO SAFELY DISPOSE OF PRESCRIPTION MEDICATIONS Please use one of the following methods to safely dispose of your unused medications. 1.Use a drug disposal kit: the drug disposal pouch allows you to safely discard your old and unuseddrugs. Ask your nurse to give you one when you are discharged.2.Visit a local take-back location: Many local pharmacies and police departments have programs that collect old and unwanted prescriptiondrugs. Call your local pharmacy or go to http://NuPotential.InSpa/1I4Sl3m to find one close to you.3.Make use of household items: Use cat litter or old coffee grounds to dispose medications if other options arenot available. Mix your drugs with these household products, seal them in an airtight container andthrow it into the garbage. Call [facility]: [phone] to be sure your drugs can be disposed of in this way. Some medicines may require a different approach.4.Never flush your medications down the toilet. IF YOU HAVE BEEN PRESCRIBED AN OPIOID FOR PAIN If you have been prescribed an opioid (such as hydrocodone, oxycodone or morphine), it is critical to understand the possible side effects and risks of opioid pain medications. Even when taken as directed, opioids can have several side effects including: Tolerance, meaning you might need to take more of a medication for the same pain relief. Nausea, vomiting and/or constipation. Sleepiness, dizziness, dry mouth, confusion, depression or itching. Physical dependence, meaning you have withdrawal symptoms when a medication is stopped, can develop within a few days. KNOW YOUR RESPONSIBILITIES It is important to know exactly how much and how often to take the opioid pain medications you are prescribed. Never take opioids in higher amounts or more often than prescribed. Do not combine opioids with alcohol or other drugs that cause drowsiness, such as benzodiazepines, also known as benzos, including diazepam and alprazolam, muscle relaxants or sleep aids. Never sell or share prescription opioids. This is illegal. Store opioids in a secure place and out of reach of others (including children, family, friends and visitors). The last page of this document has been signed and retained as a CHART COPY. Signatures Patient Education Materials 3- Heart Cath/PCI groin (05/2018) (CUSTOM) Moderate Conscious Sedation, Adult, Care After Medication Leaflets My discharge plan and instructions have been reviewed and explained to me and I,LUIS MANUEL DURAN understand my current condition and have read and understand these discharge instructions. I have received a written copy of the plan/instructions. If I have questions, I am aware that I should contact my doctor. 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 Patient underwent balloon angioplasty followed by DCB placement. He does have known RCA disease. Will bring back for RCA PCI as an outpatient. Allergies lisinopril Cough Consults No qualifying data available. Objective Vitals and Measurements T: 36.9 C (Oral) HR: 66 RR: 16 BP: 126/66 SpO2: 93% HT: 170.2 cm WT: 76.7 kg Weight Dosing Weight: 76.7 kg (11/05/24) GENERAL: Well nourished; no acute distress. PSYCHIATRIC: Alert and oriented x 3, cooperative, mood normal, affect normal. HEAD: Normocephalic, nontraumatic head. EYES: Pupils equal, round, and reactive to light; conjunctiva clear bilaterally. Lids within normallimits. NECK: Supple, no posterior midline tenderness. Normal range of motion. No thyromegaly noted. CARDIAC: Regular rate, regular rhythm, no murmurs noted. RESPIRATORY: Regular rate and depth; no distress, RIGHT lung clear, LEFT lung clear. Breath sounds normal. ABDOMEN: Soft, nontender. Normal bowel sounds. EXTREMITIES: No trace lower extremity pitting edema. No lymphedema. Dorsalis Pedis pulse +2/4 bilaterally. Posterior Tibialis pulse +2/4 bilaterally. NEURO: Moves all extremities DERM: Warm and dry. Normal turgor. No observed exanthem. No significant dandruff. Code Status No qualifying data available. Medications Unchanged aspirin (aspirin 81 mg oral delayed release tablet)1 tab(s) by mouth every day for 90 Days. Refills: 4. atorvastatin (atorvastatin 40 mg oral tablet)1 tab(s) by mouth daily at bedtime for 90 Days. Refills: 4. calcium acetate (calcium acetate 667 mg oral capsule)2 cap by mouth three (3) times a day before meals. clopidogrel (Plavix 75 mg oral tablet)1 tab(s) by mouth once a day for 90 Days. Refills: 4. finasteride (finasteride 5 mg oral tablet)1 tab(s) by mouth every other day for 90 Days. Refills: 3. fluticasone (Arnuity Ellipta 200 mcg/inh inhalation powder)1 inh by inhalation every 24 hours. fluticasone nasal (fluticasone proprionate NASAL 50 mcg/ spray)1 spray(s) each nostril every day. isosorbide mononitrate (isosorbide mononitrate 30 mg oral tablet, extended release)1 tab(s) by mouth once a day (in the morning). , , sat and saturday. Refills: 2. metoprolol (metoprolol succinate 25 mg oral TABLET extended release)1 tab(s) by mouth once a day. Do not crush or chew (controlled release). Refills: 1. nitroGLYcerin (nitroglycerin 0.4 mg sublingual tablet)1 tab(s) under the tongue every 5 minutes as needed for chest pain. Refills: 1. pantoprazole (pantoprazole 40 mg oral enteric coated tablet)1 tab(s) by mouth once a day. Refills: 2. Follow Up Appointments No qualifying data available. Follow Up Labs/Studies Discharge Labs No Follow-up Labs Discharge Studies No Follow-up Studies Discharge Diet No qualifying data available. Discharge Activity No qualifying data available. Readmission Risk/Palliative Score No qualifying data available. Digitally Signed by SRIDHAR GIRARD MD on 11/05/2024 01:27 PM Digitally Signed by JANN ALLEN MD [facility] [id number] Telephone encounter Note* Telephone Encounter - Nuzhat Yin LPN - 10/20/2024 9:37 AM EDT Prescription Refill Information The patient has been identified by name and date of : Yes Caregiver verified no other encounters exist for this prescription request: Yes Caregiver confirmed with patient/requestor that no other refills are due, in the near future, with this provider at this time: Yes The last office visit in the department: 09/22/2024 Does the patient have a future office visit with this provider/department: No Requested Prescriptions Pending Prescriptions Disp Refills atorvastatin (LIPITOR) 40 mg tablet 90 tablet 3 Sig: Take 1 tablet by mouth once daily. For cholesterol. Nuzhat Yin LPN October 20, 2024 9:37 AM [facility]03-11-2025 Miscellaneous Notes* Telephone Encounter - Nuzhat Yin LPN - 10/20/2024 9:37 AM EDT Prescription Refill Information The patient has been identified by name and date of : Yes Caregiver verified no other encounters exist for this prescription request: Yes Caregiver confirmed with patient/requestor that no other refills are due, in the near future, with this provider at this time: Yes The last office visit in the department: 09/22/2024 Does the patient have a future office visit with this provider/department: No Requested Prescriptions Pending Prescriptions Disp Refills atorvastatin (LIPITOR) 40 mg tablet 90 tablet 3 Sig: Take 1 tablet by mouth once daily. For cholesterol. Nuzhat Yin LPN October 20, 2024 9:37 AM documented in this encounterAs[facility]03-[facility]25 NoteHNO ID: [id number] Author: FRANCIS IRIZARRY MA Service: ? Author Type: Partnership Manager Type: Progress Notes Filed: 10/19/2024 10:58 Note Text: Scan on 10/08/2024 3:04 PM by Venessa Hernandez PA-C: Consultation - [facility] History of Present illness Narrative* Francis Irizarry MA - 10/19/2024 10:58 AM EDT Scan on 10/08/2024 3:04 PM by Venessa Hernandez PA-C: Consultation - Vascular Medicine/Vascular Surgery Francis Irizarry MA documented in this encounterAs[facility]02-[facility]-2025 NoteHNO ID: [id number] Author: MELIDA GONZALEZ LPN Service: ? Author Type: LICENSED NURSE Type: Progress Notes Filed: 10/02/2024 07:25 Note Text: Scan on 10/01/2024 3:43 PM by Venessa Hernandez PA-C: Consultation - Pulmonary [facility]02-21-2025 History of Present illness Narrative* Melida Gonzalez LPN - 10/02/2024 7:25 AM EST Scan on 10/01/2024 3:43 PM by Venessa Hernandez PA-C: Consultation - Pulmonary documented in this encounterAsht[facility]02-18-2025 NoteHNO ID: [id number] Author: MELIDA GONZALEZ LPN Service: ? Author Type: LICENSED NURSE Type: Progress Notes Filed: 09/29/2024 11:43 Note Text: Scan on 09/29/2024 9:59 AM by Venessa Hernandez PA-C: Consultation - [facility]02-18-2025 History of Present illness Narrative* Melida Gonzalez LPN - 09/29/2024 11:42 AM EST Scan on 09/29/2024 9:59 AM by Venessa Hernandez PA-C: Consultation - documented in this encounterAsht[facility]02-13-20[facility] Note* Exam Date Time Procedure Performing Provider Status 09/24/24 9:59 AM Echocardiogram, Adult - CV M[facility], AT [facility]; Auth (Verified) [facility]02-11-2025 Telephone encounter Note* Telephone Encounter - Joycelyn Johns OCCA - 09/22/2024 4:22 PM EST TC to patient who verbalized understanding of providers message below. TRINI Cantu [facility]02-11-2025 Miscellaneous Notes* Telephone Encounter - Joycelyn Johns OCCA - 09/22/2024 4:22 PM EST TC to patient who verbalized understanding of providers message below. TRINI Cantu * Telephone Encounter - Deanne Shen APRN.CNP - 09/22/2024 3:02 PM EST Please let patient know their xray is normal. documented in this encounterAsht[facility]02-11-2025 Telephone encounter Note * Telephone Encounter - Deanne Shen APRN.CNP - 09/22/2024 3:02 PM EST Please let patient know their xray is normal. [facility]02-11-2025 History of Present illness Narrative* Gordon Gonzales Tech - 09/22/2024 2:10 PM EST Radiology Service Progress Note PATIENT NAME: Luis Manuel Duran JR DATE OF SERVICE: September 22, 2024 TIME: 2:16 PM PATIENT IDENTITY VERIFICATION COMPLETED USING TWO (2) IDENTIFIERS: Name and Date of confirmedby patient verbally. FALL SCREENING: Has the patient had 2 falls in the last year or 1 fall with injury or currently using an Ambulatory Assistive Device (Walker, Cane, Wheelchair, Crutches, etc.)? No PATIENT GENDER DATA: Assigned male at PATIENT RELEVANT IMPLANT DATA REVIEWED: Not Applicable PATIENT PRESENTS WITH AN IMPLANTABLE OR ATTACHED SENIOR NETWORK SECURITY ARCHITECT: No RADIOLOGY DEPARTMENT: General X-ray: Exam(s) Completed: Chest X-Ray PERIPHERAL IV DATA: Not applicable SIGNED BY: Chucky Garcia September 22, 2024 2:16 PM documented in this encounterAshtabula [facility]02-11-2025 NoteHNO ID: [id number] Author: GORDON GONZALES Tech Service: ? Author Type: Technologist Type: Progress Notes Filed: 09/22/2024 14:17 Note Text: Radiology Service Progress Note PATIENT NAME: Luis Manuel Duran JR DATE OF SERVICE: September 22, 2024 TIME: 2:16 PM PATIENT IDENTITY VERIFICATION COMPLETED USING TWO (2) IDENTIFIERS: Name and Date of confirmed by patient verbally. FALL SCREENING: Has the patient had 2 falls in the last year or 1 fall with injury or currently using an Ambulatory Assistive Device (Walker, Cane, Wheelchair, Crutches, etc.)? No PATIENT GENDER DATA: Assigned male at PATIENT RELEVANT IMPLANT DATA REVIEWED: Not Applicable PATIENT PRESENTS WITH AN IMPLANTABLE OR ATTACHED SENIOR NETWORK SECURITY ARCHITECT: No RADIOLOGY DEPARTMENT: General X-ray: Exam(s) Completed: Chest X-Ray PERIPHERAL IV DATA: Not applicable SIGNED BY: Chucky Garcia September 22, 2024 2:16 [facility]02-11-2025 Instructions* Patient Instructions* Deanne Shen APRN.MAMMOGRAPHER - 09/22/2024 1:02 PM EST Screening schedule The following prevention plan is recommended: Depression Screening Never done Anxiety Screening Never done Shingrix Vaccine(1 of 2) Never done Covid-19 Vaccine() due on 04/12/2024 Advance Directive Discussion due on 08/12/2024 WHAT YOU CAN DO TO PREVENT FALLS Many falls can be prevented. By making some changes, you can lower your chances of falling. Four things YOU can do to prevent falls for you* and your caregiver 1. Begin a regular exercise program Exercise is one of the most important ways to lower your chances of falling. It makes you stronger and helps you feel better. Exercises that improve balance and coordination (like Jordi Chi) are the most helpful. Lack of exercise leads to weakness and increases your chances of falling. Ask your doctor or health care provider about the best type of exercise program for you. 2. Have your health care provider review your medicines Have your doctor or pharmacist review all the medicines you take, even bihi-kfq-qktorrh medicines. As you get older, the way medicines work in your body can change. Some medicines, or combinations of medicines, can make you sleepy or dizzy andcan cause you to fall. 3. Have your vision checked Have your eyes checked by an eye doctor at least once a year. You may be wearing the wrong glasses or have a condition like glaucoma or cataracts that limits your vision. Poor vision can increase your chances of falling. 4. Make your home safer About half of all falls happen at home. To make your home safer: Remove things you can trip over (like papers, books, clothes, and shoes) from stairs and places where you walk. Remove small throw rugs or use double-sided tape to keep the rugs from slipping. Keep items you use often in cabinets you can reach easily without using a step stool. Have grab bars put in next to your toilet and in the tub or shower. Use non-slip mats in the bathtub and on shower floors. Improve the lighting in your home. As you get older, you need brighter lights to see well. Hang light-weight curtains or shades to reduce glare. Have handrails and lights put in on all staircases. Wear shoes both inside and outside the house. Avoid going barefoot or wearing slippers. For more information, contact: Centers for Disease Control and Prevention www.cdc.gov/injury * This information may not apply if you have certain medical conditions. documented in this encounterAshtabula [facility]02-11-2025 NoteHNO ID: [id number] Author: DEANNE SHEN APRN.VIOLETTE Service: ? Author Type: Nurse Practitioner Type: Progress Notes Filed: 09/22/2024 14:04 Note Text: Luis Manuel Duran JR is a 83 year old male here for a Medicare wellness visit. Medicare Health Risk Assessment General Health Not too bad Exercise: Minutes/Day 50 min Exercise: Days/Week 0 days Alcohol: Daily Use 2-4 times a month Alcohol: Drinks/Day 1 or 2 Alcohol: 6 or more drinks Never Feel off balance A little off balance with turning Concerns: Teeth/Dentures No Concerns: Sexual function No Troubled by feelings no Frequency: Eating healthy diet Trying to eat healthy; eats small meals ADLs requiring help no Safety precautions in home/vehicle no Smoke, vape, chews tobacco No Difficulty hearing no Difficulty seeing Wears glasses Current Providers Specialists: I have reviewed specialist-related care of the patient in the medical record. Current care team: Patient Care Team: Julio Licea MD as PCP - General (Family Medicine) Deanne Shen APRN.VIOLETTE as Box Coverer Hand (Family Medicine) Elana Candelario PA-C as Box Coverer Hand (Family Medicine) Medical/Family history review Reviewed and updated problem list, medical/surgical/family/social history, medications, and allergies. Opioid use review Opioid Medications (last 90 days) No data to display Anxiety/Depression screening Recommendation: no further intervention at this time Cognitive screening Cognitive screening reviewed and No further action needed (score 3-5). Functional Observation Was the patient's Timed Up AND Go test unsteady or >= 12 seconds? No Advance Care Planning Surrogate decision maker and/or advance care plan documented Measurements There were no vitals taken for this visit. Vision Screening: Follows with optometry/ophthalmology Assessment/Plan Medicare annual wellness visit, subsequent (Z00.00) - Counseled on healthy diet and regular exercise - Fall avoidance information provided - Personalized prevention plan provided - Discussed need for and benefit of weight loss. No weight on file for this encounter. Chief Complaint No chief complaint on file. HPI Luis Manuel Duran JR is a 83 year old male who presents here today for Above Complaints.. Patient presents today for annual wellness exam. Patient states he is still having a productive cough. He feels like the the cough has been waxing and weaning over the past few days. Patient is feeling SOB with walking, but denies wheezing. Patient is still having abdominal pain following dialysis. Pt states nurses at dialysis are asking to take more fluid off that he can tolerate. His blood pressures during the sessions have been fine. Patient denies dizziness and sweating. Patient denies difficulty with urination. Patient states that the amount he urinates is dependent on the amount of fluid that is taken off during dialysis. Past medical history, appointments, medications, allergies reviewed. 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 Clifford Murrietaltman COVID-19 virus infection 05/29/2021 05/27/2021 Diaphragmatic hernia without mention of obstruction or gangrene Hiatal hernia Elevated alkaline phosphatase level 09/24/2023 Elevated bone fraction: NM bone scan 09/2023 was normal. Elevated PSA 03/11/2019 Esophagitis, unspecified ESRD (end stage renal disease) on dialysis ([facility]) 07/11/2023 Essential hypertension, benign Ex-smoker 12/26/2020 Started age 18 up to 1.5 PPD and quit at age 35. Family history of malignant neoplasm of gastrointestinal tract GERD without esophagitis Gastroesophageal reflux Heart attack ([facility]) 2023 History of COVID-19 05/29/2021 05/27/2021 History of non-ST elevation myocardial infarction (NSTEMI) 03/06/2018 09/06/14-- stent 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 deficiency ([facility]) 10/15/2013 Living will on file 12/15/2021 DPA: Shea () Mild aortic stenosis 11/27/2021 Seeing Cardio Mixed hyperlipidemia 09/03/2013 Overweight (BMI 25.0-29.9) Parathyroid adenoma 05/27/2013 parathyroidectomy 05/27/13 Personal history of colonic polyps Colon polyps Primary hyperparathyroidism ([facility]) 03/04/2017 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: 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 TIA (transient ischemic attack) 06/2010 Ulcer of esophagus without bleeding Vitamin D deficiency 10/15/2013 Previous Surgical History PAST SURG (more content not included)...[facility]02-11-2025 History of Present illness Narrative* Deanne Shen APRN.CNP - 09/22/2024 1:00 PM EST Images from the original note were not included. Luis Manuel Duran JR is a 83 year old male here for a Medicare wellness visit. Medicare Health Risk Assessment General Health Not too bad Exercise: Minutes/Day 50 min Exercise: Days/Week 0 days Alcohol: Daily Use 2-4 times a month Alcohol: Drinks/Day 1 or 2 Alcohol: 6 or more drinks Never Feel off balance A little off balance with turning Concerns: Teeth/Dentures No Concerns: Sexual function No Troubled by feelings no Frequency: Eating healthy diet Trying to eat healthy; eats small meals ADLs requiring help no Safety precautions in home/vehicle no Smoke, vape, chews tobacco No Difficulty hearing no Difficulty seeing Wears glasses Current Providers Specialists: I have reviewed specialist-related care of the patient in the medical record. Current care team: Patient Care Team: Julio Licea MD as PCP - General (Family Medicine) Deanne Shen APRN.VIOLETTE as Box Coverer Hand (Family Medicine) Elana Candelario PA-C as Box Coverer Hand (Family Medicine) Medical/Family history review Reviewed and updated problem list, medical/surgical/family/social history, medications, and allergies. Opioid use review Opioid Medications (last 90 days) No data to display Anxiety/Depression screening Recommendation: no further intervention at this time Cognitive screening Cognitive screening reviewed and No further action needed (score 3-5). Functional Observation Was the patient's Timed Up & Go test unsteady or >= 12 seconds? No Advance Care Planning Surrogate decision maker and/or advance care plan documented Measurements There were no vitals taken for this visit. Vision Screening: Follows with optometry/ophthalmology Assessment/Plan Medicare annual wellness visit, subsequent (Z00.00) - Counseled on healthy diet and regular exercise - Fall avoidance information provided - Personalized prevention plan provided - Discussed need for and benefit of weight loss. No weight on file for this encounter. Chief Complaint No chief complaint on file. HPI Luis Manuel Duran JR is a 83 year old male who presents here today for Above Complaints.. Patient presents today for annual wellness exam. Patient states he is still having a productive cough. He feels like the the cough has been waxing and weaning over the past few days. Patient is feeling SOB with walking, but denies wheezing. Patient is still having abdominal pain following dialysis.Pt states nurses at dialysis are asking to take more fluid off that he can tolerate. His blood pressures during the sessions have been fine. Patient denies dizziness and sweating. Patient denies difficulty with urination. Patient states that the amount he urinates is dependent on the amount of fluid that is taken off during dialysis. Past medical history, appointments, medications, allergies reviewed. 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 Clifford Murrietaltman COVID-19 virus infection 05/29/2021 05/27/2021 Diaphragmatic hernia without mention of obstruction or gangrene Hiatal hernia Elevated alkaline phosphatase level 09/24/2023 Elevated bone fraction: NM bone scan 09/2023 was normal. Elevated PSA 03/11/2019 Esophagitis, unspecified ESRD (end stage renal disease) on dialysis ([facility]) 07/11/2023 Essential hypertension, benign Ex-smoker 12/26/2020 Started age 18 up to 1.5 PPD and quit at age 35. Family history of malignant neoplasm of gastrointestinal tract GERD without esophagitis Gastroesophageal reflux Heart attack ([facility]) 2023 History of COVID-19 05/29/2021 05/27/2021 History of non-ST elevation myocardial infarction (NSTEMI) 03/06/2018 09/06/14-- stent 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 deficiency ([facility]) 10/15/2013 Living will on file 12/15/2021 DPA: Shea () Mild aortic stenosis 11/27/2021 Seeing Cardio Mixed hyperlipidemia 09/03/2013 Overweight (BMI 25.0-29.9) Parathyroid adenoma 05/27/2013 parathyroidectomy 05/27/13 Personal history of colonic polyps Colon polyps Primary hyperparathyroidism (HCC) 03/04/2017 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: 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 TIA (transient ischemic attack) 06/2010 Ulcer of esophagus without bleeding Vitamin D deficiency 10/15/2013 Previous Surgical History PAST SURGICAL HISTORY Procedure Laterality Date BX/EXC LYMPH NODE OPEN SUPERFICIAL CC CORONARY STENT 11/18/2023 2 stents to Left Circ COLONOSCOPY 12/22/2019 COLONOSCOPY FLX DX W/COLLJ SPEC WHEN PFRMD 08/2000 Colonoscopy COLONOSCOPY FLX DX W/COLLJ SPEC WHEN PFRMD 10/19/2008 EGD 06/11/2024 EGD TRANSORAL BIOPSY SINGLE/MULTIPLE 10/19/2008 ESOPHAGOGASTRODUODENOSCOPY TRANSORAL DIAGNOSTIC ESOPHAGOGASTRODUODENOSCOPY TRANSORAL DIAGNOSTIC 12/22/[address] Marcial LAPAROSCOPIC HERNIA REPAIR Right 05/21/2018 recurrent incarcerated direct right inguinal hernia PARATHYROIDECTOMY/EXPLORATION PARATHYROIDS 05/27/2013 Parathyroid adenoma PAST SURGICAL HISTORY OF 01/20/2021 supraumbilical ventral hernia RPR 1ST INGUN HRNA AGE 5 YRS/> REDUCIBLE Hernia repair, inguinal BILATERAL Family History FAMILY HISTORY Problem Relation Age of Onset Colon Cancer Mother Colon Cancer Father Arthritis Mother Heart Father [place] * 2 Prostate Cancer Brother Hypertension Brother None Brother Patient Allergies ALLERGIES Allergen Reactions Axid [Nizatidine] Unknown Entex Pse [Pseudoep* Unknown Lisinopril Cough Current Medications Current Outpatient Medications on File Prior to Visit Medication Sig finasteride (PROSCAR) 5 mg tablet Take 5 mg by mouth once daily. furosemide (LASIX) 80 mg tablet Take 0.5 tablets by mouth once daily. Per [facility] metoprolol tartrate, short acting, (LOPRESSOR) 50 mg tablet Take 0.5 tablets by mouth once daily. lansoprazole (PREVACID) 30 mg capsule Take 1 capsule by mouth once daily. calcium acetate,phosphat bind, (PHOSLO) 667 mg capsule clopidogrel (PLAVIX) 75 mg tablet Take 1 tablet by mouth every afternoon. atorvastatin (LIPITOR) 40 mg tablet Take 1 tablet by mouth once daily. For cholesterol. calcium citrate (CALCITRATE) 200 mg (950 mg) tab Take 1 tablet by mouth four times daily. acetaminophen (TYLENOL EXTRA STRENGTH) 500 mg tablet Take 2 tablets by mouth every 6 hours as needed for pain. nitroglycerin sublingual (NITROSTAT) 0.4 mg SL tablet Dissolve 1 tablet under the tongue every 5 minutes as needed. aspirin, enteric coated (ASPIRIN, ENTERIC COATED) 81 mg EC tablet Take 1 tablet by mouth once daily. No current facility-administered medications on file prior to visit. Social History Social History Tobacco Use Smoking status: Former Types: Cigarettes Smokeless tobacco: Never Tobacco comments: quit 1976 Vaping Use Vaping status: Never Used Substance Use Topics Alcohol use: Yes Alcohol/week: 1.0 standard drink of alcohol Types: 1 Standard drinks or equivalent per week Comment: very little Drug use: No Review of Symptoms REVIEW OF SYSTEMS GENERAL: No weight loss, malaise or fevers RESPIRATORY: Cough; productive with clear sputum, Shortness of breath CARDIOVASCULAR: Negative for chest pain, leg swelling, hypertension, CHF or palpitations EXAM: BP 114/57 Pulse 90 Wt 79.8 kg (176 lb) BMI 27.57 kg/m General Appearance: Well appearing, alert, in no acute distress, well-hydrated, well nourished.. Skin: Skin color, texture, turgor normal, no suspicious rashes or lesions. Neck: Supple, no adenopathy; thyroid symmetric, normal size, no bruits. Lungs:. Coarse in bilateral lower lobes Heart: RRR without murmur, gallop, or rubs. No ectopy. Abdomen: Normal abdominal exam, Abdomen soft, non-tender. Bowel sounds normal. No masses, organomegaly. Peripheral Pulses: Normal. Health Maintenance List Depression Screening Never done Anxiety Screening Never done Shingrix Vaccine(1 of 2) Never done Covid-19 Vaccine( season) due on 04/12/2024 Advance Directive Discussion due on 08/12/2024 LDL Cholesterol due on 09/17/2025 Diabetes Screening due on 09/17/2027 DTaP,Tdap,Td Vaccine(5 - Td or Tdap) due on 11/01/2028 Influenza Vaccine Completed RSV Vaccine Completed Pneumococcal Vaccine: 50+ Completed Hepatitis B Vaccine Discontinued Colorectal Cancer Screening Discontinued Data reviewed Latest Ref Rng 09/17/2024 WBC 3.70 - 11.00 k/uL 7.14 RBC 4.20 - 6.00 m/uL 3.50 (L) Hemoglobin 13.0 - 17.0 g/dL 10.5 (L) Hematocrit 39.0 - 51.0 % 34.6 (L) MCV 80.0 - 100.0 fL 98.9 MCH 26.0 - 34.0 pg 30.0 MCHC 30.5 - 36.0 g/dL 30.3 (L) RDW-CV 11.5 - 15.0 % 16.4 (H) Platelet Count 150 - 400 k/uL 180 MPV 9.0 - 12.7 fL 10.1 Neut% % 61.5 Abs Neut (ANC) 1.45 - 7.50 k/uL 4.39 Lymph% % 19.3 Abs Lymph 1.00 - 4.00 k/uL 1.38 Carson% % 10.5 Abs Carson <0.87 k/uL 0.75 Eosin% % 7.4 Abs Eosin <0.46 k/uL 0.53 (H) Baso% % 0.6 Abs Baso <0.11 k/uL 0.04 Immature Gran % % 0.7 IMMATURE GRANS (ABS) <0.10 k/uL 0.05 NRBC /100 WBC 0.0 Absolute nRBC <0.01 k/uL <0.01 DTYPE Auto Color Yellow Yellow Clarity Clear Clear Glucose, Urine Negative Trace ! Bilirubin, Urine Negative Negative Ketones, Urine Negative Negative Specific [place], Ur 1.005 - 1.030 1.014 Hemoglobin/Blood,Ur Negative Negative pH, Urine <8.5 8.5 (H) Protein, Urine Negative 3+ ! Urobilinogen 0.2-1.0 EU/dL 0.2 EU/dL Nitrites Negative Negative Leukest Negative Negative WBC, Urine 0-5 /HPF 0-5 /HPF RBC, Urine 0-2 /HPF 0-2 /HPF Bacteria Negative /HPF Negative Epithelial Cells /HPF None Seen Hyaline Cast 0 /LPF 1-3 /LPF ! Protein, Total 6.3 - 8.0 g/dL 6.8 Albumin 3.9 - 4.9 g/dL 3.7 (L) Calcium 8.5 - 10.2 mg/dL 10.0 Bilirubin, Total 0.2 - 1.3 mg/dL 0.2 Alkaline Phosphatase 38 - 113 U/L 92 AST 14 - 40 U/L 22 ALT 10 - 54 U/L 13 Glucose 74 - 99 mg/dL 109 (H) BUN 9 - 24 mg/dL 30 (H) Creatinine 0.73 - 1.22 mg/dL 5.31 (H) Sodium 136 - 144 mmol/L 139 Potassium 3.7 - 5.1 mmol/L 4.2 Chloride 98 - 107 mmol/L 97 (L) CO2 22 - 30 mmol/L 28 Anion Gap 8 - 15 mmol/L 14 eGFR >=60 mL/min/1.73m 10 (L) Total Cholesterol, Nonfasting <200 mg/dL 145 Triglycerides, Nonfasting <150 mg/dL 59 HDL Cholesterol, Nonfasting >39 mg/dL 59 LDL Cholesterol, Nonfasting <100 mg/dL 74 Non HDL Cholesterol, Nonfasting <130 mg/dL 86 VLDL Cholesterol, Nonfasting <30 mg/dL 12 Total Chol/HDL Ratio, Nonfasting <5.10 mg/dL 2.46 LDL/HDL Ratio, Nonfasting <2.54 mg/dL 1.25 Hemoglobin A1C 4.3 - 5.6 % 5.4 Estimated Average Glucose mg/dL 108 PSA Screening <2.60 ng/mL 11.03 (H) Magnesium 1.7 - 2.3 mg/dL 2.0 Vitamin B12 232 - 1,245 pg/mL 733 ASSESSMENT/PLAN: 1. Elevated PSA - ICD9: 790.93, ICD10: R97.20 (primary diagnosis) -Has follow up with Dr. Tavarez on 09/29 2. Chronic diastolic congestive heart failure (HCC) - ICD9: 428.32, 428.0, ICD10: I50.32 -Follows with cardiology. 3. Hyperparathyroidism (HCC) - ICD9: 252.00, ICD10: E21.3 -Calcium normal 4. Encounter for screening examination for other mental health and behavioral disorders - ICD9: V79.8, ICD10: Z13.39 - ANXIETY SCREENING 5. Screening for depression - ICD9: V79.0, ICD10: Z13.31 - DEPRESSION SCREENING 6. Abnormal lung sounds - ICD9: 786.7, ICD10: R09.89 - XR CHEST 2V FRONTAL/LAT 7. SOB (shortness of breath) - ICD9: 786.05, ICD10: R06.02 - ANXIETY SCREENING - DEPRESSION SCREENING - XR CHEST 2V FRONTAL/LAT - ALBUTEROL SULFATE HFA 90 MCG/ACTUATION AEROSOL INHALER 8. Wheezing - ICD9: 786.07, ICD10: R06.2 - XR CHEST 2V FRONTAL/LAT - ALBUTEROL SULFATE HFA 90 MCG/ACTUATION AEROSOL INHALER 9. Cough productive of clear sputum - ICD9: 786.2, ICD10: R05.8 - XR CHEST 2V FRONTAL/LAT - ALBUTEROL SULFATE HFA 90 MCG/ACTUATION AEROSOL INHALER 10. ESRD (end stage renal disease) on dialysis (HCC) - ICD9: 585.6, V45.11, ICD10: N18.6, Z99.2 - eGFR: 10 Stable - COMPREHENSIVE METABOLIC PANEL 11. Gastroesophageal reflux disease with esophagitis without hemorrhage - ICD9: 530.81, 530.10, ICD10: K21.00 - Continue treatment with Prevacid 30 mg QD 12. Benign essential tremor - ICD9: 333.1, ICD10: G25.0 -Stable 13. Anemia of chronic disease - ICD9: 285.29, ICD10: D63.8 - COMPLETE BLOOD COUNT AND DIFFERENTIAL 14. Mixed hyperlipidemia - ICD9: 272.2, ICD10: E78.2 - Controlled - Continue current medications - Counseled on healthy diet and regular exercise - LIPID PANEL, NONFASTING 15. Medicare annual wellness visit, subsequent - ICD9: V70.0, ICD10: Z00.00 - Counseled on healthy diet and regular exercise - Discussed need for and benefit of weight loss. BMI 27.57 kg/(m^2) - Follow up for annual exam in one year 16. Essential hypertension, benign - ICD9: 401.1, ICD10: I10 - Controlled - Continue current medications - Recommend home blood pressure monitoring, to bring results to next visit - Encouraged sodium restriction, DASH or Mediterranean diet - Recommend regular aerobic exercise 17. Coronary artery disease involving [place] coronary artery of [place] heart without angina pectoris - ICD9: 414.01, ICD10: I25.10 -Follows with cardiology 18. Screening for diabetes mellitus - ICD9: V77.1, ICD10: Z13.1 - HEMOGLOBIN A1C Deanne Shen APRN.MAMMOGRAPHER documented in this encounterAsht[facility] NoteHNO ID: [id number] Author: DEANNE SHEN APRN.MAMMOGRAPHER Service: ? Author Type: Nurse Practitioner Type: Progress Notes Filed: 09/17/2024 10:25 Note Text: Chief Complaint Patient presents with: Hospital F/U HPI Luis Manuel Duran JR is a 83 year old male who presents here today for Above Complaints.. Pt presents today for hospital follow up. Pt states he went to dialysis yesterday and did not have abdominal pain since they increased his dry weight. Pt states the abdominal pain typically feels hot and upset. During his session yesterday his blood pressure did not drop. He has a follow up visit with his kidney doctor sometime this month. Pt states he has had a cough for about a year that has been worsening over the past few days. The cough is productive at times and he is having nasal drainage. Pt states he is SOB with excretion and has some wheezing. He has also had chills. Pt denies fever, headaches and chest pain. Past medical history, appointments, medications, allergies reviewed. Previous Medical History PAST MEDICAL HISTORY Diagnosis Date Advance directive discussed with patient 12/15/2021 Discussed 12/2021 Anemia of chronic disease 10/15/2013 Benign essential tremor 07/03/2010 BPH with obstruction/lower urinary tract symptoms 08/01/2005 Chronic diastolic congestive heart failure (HCC) 12/15/2021 seeing cardio CKD (chronic kidney disease) stage 4, GFR 15-29 ml/min ([facility]) 03/04/2017 Coronary artery disease involving white [place] coronary artery of [place] heart without angina pectoris 03/06/[address] Clifford Reveles [place] COVID-19 virus infection 05/29/2021 05/27/2021 Diaphragmatic hernia without mention of obstruction or gangrene Hiatal hernia Elevated alkaline phosphatase level 09/24/2023 Elevated bone fraction: NM bone scan 09/2023 was normal. Elevated PSA 03/11/2019 Esophagitis, unspecified ESRD (end stage renal disease) on dialysis ([facility]) 07/11/2023 Essential hypertension, benign Ex-smoker 12/26/2020 Started age 18 up to 1.5 PPD and quit at age 35. 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 deficiency (HCC) 10/15/2013 Living will on file 12/15/2021 DPA: Shea () Mild aortic stenosis 11/27/2021 Seeing Cardio Mixed hyperlipidemia 09/03/2013 Overweight (BMI 25.0-29.9) Parathyroid adenoma 05/27/2013 parathyroidectomy 05/27/13 Personal history of colonic polyps Colon polyps Primary hyperparathyroidism (HCC) 03/04/2017 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: 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 TIA (transient ischemic attack) 06/2010 Ulcer of esophagus without bleeding Vitamin D deficiency 10/15/2013 Previous Surgical History PAST SURGICAL HISTORY Procedure Laterality Date BX/EXC LYMPH NODE OPEN SUPERFICIAL CC CORONARY STENT 11/18/2023 2 stents to Left Circ COLONOSCOPY 12/22/2019 COLONOSCOPY FLX DX W/COLLJ SPEC WHEN PFRMD 08/2000 Colonoscopy COLONOSCOPY FLX DX W/COLLJ SPEC WHEN PFRMD 10/19/2008 EGD 06/11/2024 EGD TRANSORAL BIOPSY SINGLE/MULTIPLE 10/19/2008 ESOPHAGOGASTRODUODENOSCOPY TRANSORAL DIAGNOSTIC ESOPHAGOGASTRODUODENOSCOPY TRANSORAL DIAGNOSTIC 12/22/[address] Marcial LAPAROSCOPIC HERNIA REPAIR Right 05/21/2018 recurrent incarcerated direct right inguinal hernia PARATHYROIDECTOMY/EXPLORATION PARATHYROIDS 05/27/2013 Parathyroid adenoma PAST SURGICAL HISTORY OF 01/20/2021 supraumbilical ventral hernia RPR 1ST INGUN HRNA AGE 5 YRS/> REDUCIBLE Hernia repair, inguinal BILATERAL Family History FAMILY HISTORY Problem Relation Age of Onset Colon Cancer Mother Colon Cancer Father Arthritis Mother Heart Father SD * 2 Prostate Cancer Brother Hypertension Brother None Brother Patient Allergies ALLERGIES Allergen Reactions Axid [Nizatidine] Unknown Entex Pse [Pseudoep* Unknown Lisinopril Cough Current Medications Current Outpatient Medications on File Prior to Visit Medication Sig finasteride (PROSCAR) 5 mg tablet Take 5 mg by mouth once daily. furosemide (LASIX) 80 mg tablet Take 0.5 tablets by mouth once daily. Per Cardio, Marc metoprolol tartrate, short acting, (LOPRESSOR) 50 mg tablet Take 0.5 tablets by mouth once daily. lansoprazole (PREVACID) 30 mg capsule Take 1 capsule by mouth once daily. calcium acetate,phosphat bind, (PHOSLO) 667 mg capsule clopidogrel (PLAVIX) 75 mg tablet Take 1 tablet by mouth every afternoon. atorvastatin (LIPITOR) 40 mg tablet Take 1 tablet by mouth once daily. For cholesterol. calcium citrate (CALCITRATE) 200 mg (950 mg) tab Take 1 tablet by mouth four times daily. acetaminophen (TYLENOL EXTRA STRENGTH) 500 mg tablet Take 2 tablets by mouth every 6 hours (more content not included)...[facility]02-06-[facility]25 History of Present illness Narrative* Deanne Shen, [place].MAMMOGRAPHER - 09/17/2024 8:50 AM EST Chief Complaint Patient presents with: Hospital F/U HPI Luis Manuel Duran JR is a 83 year old male who presents here today for Above Complaints.. Pt presents today for hospital follow up. Pt states he went to dialysis yesterday and did not have abdominal pain since they increased his dry weight. Pt states the abdominal pain typically feels hotand upset. During his session yesterday his blood pressure did not drop. He has a follow up visit with his kidney doctor sometime this month. Pt states he has had a cough for about a year that has been worsening over the past few days. The cough is productive at times and he is having nasal drainage. Pt states he is SOB with excretion and has some wheezing. He has also had chills. Pt denies fever, headaches and chest pain. Past medical history, appointments, medications, allergies reviewed. Previous Medical History PAST MEDICAL HISTORY Diagnosis Date Advance directive discussed with patient 12/15/2021 Discussed 12/2021 Anemia of chronic disease 10/15/2013 Benign essential tremor 07/03/2010 BPH with obstruction/lower urinary tract symptoms 08/01/2005 Chronic diastolic congestive heart failure (HCC) 12/15/2021 seeing cardio CKD (chronic kidney disease) stage 4, GFR 15-29 ml/min (HCC) 03/04/2017 Coronary artery disease involving white [place] coronary artery of [place] heart without angina pectoris 03/06/[address] Horton Cardio [place] COVID-19 virus infection 05/29/2021 05/27/2021 Diaphragmatic hernia without mention of obstruction or gangrene Hiatal hernia Elevated alkaline phosphatase level 09/24/2023 Elevated bone fraction: NM bone scan 09/2023 was normal. Elevated PSA 03/11/2019 Esophagitis, unspecified ESRD (end stage renal disease) on dialysis (HCC) 07/11/2023 Essential hypertension, benign Ex-smoker 12/26/2020 Started age 18 up to 1.5 PPD and quit at age 35. 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 deficiency ([facility]) 10/15/2013 Living will on file 12/15/2021 DPA: Shea () Mild aortic stenosis 11/27/2021 Seeing Cardio Mixed hyperlipidemia 09/03/2013 Overweight (BMI 25.0-29.9) Parathyroid adenoma 05/27/2013 parathyroidectomy 05/27/13 Personal history of colonic polyps Colon polyps Primary hyperparathyroidism ([facility]) 03/04/2017 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: 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 TIA (transient ischemic attack) 06/2010 Ulcer of esophagus without bleeding Vitamin D deficiency 10/15/2013 Previous Surgical History PAST SURGICAL HISTORY Procedure Laterality Date BX/EXC LYMPH NODE OPEN SUPERFICIAL CC CORONARY STENT 11/18/2023 2 stents to Left Circ COLONOSCOPY 12/22/2019 COLONOSCOPY FLX DX W/COLLJ SPEC WHEN PFRMD 08/2000 Colonoscopy COLONOSCOPY FLX DX W/COLLJ SPEC WHEN PFRMD 10/19/2008 EGD 06/11/2024 EGD TRANSORAL BIOPSY SINGLE/MULTIPLE 10/19/2008 ESOPHAGOGASTRODUODENOSCOPY TRANSORAL DIAGNOSTIC ESOPHAGOGASTRODUODENOSCOPY TRANSORAL DIAGNOSTIC 12/22/[address] Marcial LAPAROSCOPIC HERNIA REPAIR Right 05/21/2018 recurrent incarcerated direct right inguinal hernia PARATHYROIDECTOMY/EXPLORATION PARATHYROIDS 05/27/2013 Parathyroid adenoma PAST SURGICAL HISTORY OF 01/20/2021 supraumbilical ventral hernia RPR 1ST INGUN HRNA AGE 5 YRS/> REDUCIBLE Hernia repair, inguinal BILATERAL Family History FAMILY HISTORY Problem Relation Age of Onset Colon Cancer Mother Colon Cancer Father Arthritis Mother Heart Father SD * 2 Prostate Cancer Brother Hypertension Brother None Brother Patient Allergies ALLERGIES Allergen Reactions Axid [Nizatidine] Unknown Entex Pse [Pseudoep* Unknown Lisinopril Cough Current Medications Current Outpatient Medications on File Prior to Visit Medication Sig finasteride (PROSCAR) 5 mg tablet Take 5 mg by mouth once daily. furosemide (LASIX) 80 mg tablet Take 0.5 tablets by mouth once daily. Per CardioMarc metoprolol tartrate, short acting, (LOPRESSOR) 50 mg tablet Take 0.5 tablets by mouth once daily. lansoprazole (PREVACID) 30 mg capsule Take 1 capsule by mouth once daily. calcium acetate,phosphat bind, (PHOSLO) 667 mg capsule clopidogrel (PLAVIX) 75 mg tablet Take 1 tablet by mouth every afternoon. atorvastatin (LIPITOR) 40 mg tablet Take 1 tablet by mouth once daily. For cholesterol. calcium citrate (CALCITRATE) 200 mg (950 mg) tab Take 1 tablet by mouth four times daily. acetaminophen (TYLENOL EXTRA STRENGTH) 500 mg tablet Take 2 tablets by mouth every 6 hours as needed for pain. nitroglycerin sublingual (NITROSTAT) 0.4 mg SL tablet Dissolve 1 tablet under the tongue every 5 minutes as needed. aspirin, enteric coated (ASPIRIN, ENTERIC COATED) 81 mg EC tablet Take 1 tablet by mouth once daily. No current facility-administered medications on file prior to visit. Social History Social History Tobacco Use Smoking status: Former Types: Cigarettes Smokeless tobacco: Never Tobacco comments: quit 1975 Vaping Use Vaping status: Never Used Substance Use Topics Alcohol use: Yes Alcohol/week: 1.0 standard drink of alcohol Types: 1 Standard drinks or equivalent per week Comment: very little Drug use: No Review of Symptoms REVIEW OF SYSTEMS GENERAL: No weight loss, malaise or fevers RESPIRATORY: Cough; productive with clear sputum, Wheezing, Shortness of breath CARDIOVASCULAR: Negative for chest pain, leg swelling, hypertension, CHF or palpitations EXAM: BP 124/65 Pulse 76 Resp 14 Wt 78.9 kg (174 lb) SpO2 94% BMI 27.25 kg/m General Appearance: Well appearing, alert, in no acute distress, well-hydrated, well nourished.. Lungs: Positive findings: coarse Shortness of breath: Upon exertion Cough. Heart: RRR without murmur, gallop, or rubs. No ectopy. Abdomen: Normal abdominal exam, Abdomen soft, non-tender. Bowel sounds normal. No masses, organomegaly. Health Maintenance List Depression Screening Never done Anxiety Screening Never done Covid-19 Vaccine( season) due on 04/12/2024 Advance Directive Discussion due on 08/12/2024 LDL Cholesterol due on 09/21/2024 Shingrix Vaccine(1 of 2) due on 09/21/2024 Diabetes Screening due on 04/10/2027 DTaP,Tdap,Td Vaccine(5 - Td or Tdap) due on 11/01/2028 Influenza Vaccine Completed RSV Vaccine Completed Pneumococcal Vaccine: 50+ Completed Hepatitis B Vaccine Discontinued Colorectal Cancer Screening Discontinued ASSESSMENT/PLAN: 1. Cough productive of clear sputum - ICD9: 786.2, ICD10: R05.8 (primary diagnosis) -Follow up with Dr. Samayoa at [facility] as scheduled -Xray in ER negative 2. SOB (shortness of breath) - ICD9: 786.05, ICD10: R06.02 -Follow up with Dr. Samayoa at [facility] as scheduled -Xray in ER negative 3. Wheezing - ICD9: 786.07, ICD10: R06.2 -Follow up with Dr. Samayoa at [facility] as scheduled -Xray in ER negative 4. Wellness examination - ICD9: V70.0, ICD10: Z00.00 - COMPLETE BLOOD COUNT AND DIFFERENTIAL - COMPREHENSIVE METABOLIC PANEL 5. Screening for prostate cancer - ICD9: V76.44, ICD10: Z12.5 - PSA/PROSTATE SPECIFIC ANTIGEN SCREENING 6. Screening for diabetes mellitus - ICD9: V77.1, ICD10: Z13.1 - HEMOGLOBIN A1C 7. Encounter for lipid screening for cardiovascular disease - ICD9: V77.91, V81.2, ICD10: Z13.220, Z13.6 - LIPID PANEL, NONFASTING 8. Medication management - ICD9: V58.69, ICD10: Z79.899\\ - MAGNESIUM - VITAMIN B12 9. ESRD (end stage renal disease) on dialysis (HCC) - ICD9: 585.6, V45.11, ICD10: N18.6, Z99.2 - URINALYSIS, WITH MICROSCOPIC I have personally seen and examined the patient and performed the medical- decision making components. I have reviewed the Advanced Practice Registered Nurse (GLACIOLOGIST) student's documentation and verified the findings in the note as written. Any additions or changes are noted in bold/italics. Deanne Shen APRN.MAMMOGRAPHER documented in this encounterAshtabula [facility]02-03-2025 NoteHNO ID: [id number] Author: FRANCIS IRIZARRY MA Service: ? Author Type: Partnership Manager Type: Progress Notes Filed: 09/14/2024 09:30 Note Text: Scan on 09/10/2024 10:43 AM by Venessa Hernandez PA-C: Consultation - Emergency Medicine Scan on 09/10/2024 10:59 AM by Venessa Hernandez PA-C: Consultation - Emergency Medicine Scan on 09/10/2024 11:59 AM by Venessa Hernandez PA-C: Consultation - Emergency Medicine Scan on 09/11/2024 1:23 PM by Venessa Hernandez PA-C: Discharge Summary Patient was already scheduled hospital follow up for abdomen pain. 09/17/2024. With Deanne. Francis Irizarry [facility]02-03-2025 History of Present illness Narrative* Francis Irizarry MA - 09/14/2024 9:26 AM EST Scan on 09/10/2024 10:43 AM by Venessa Hernandez PA-C: Consultation - Emergency Medicine Scan on 09/10/2024 10:59 AM by Venessa Hernandez PA-C: Consultation - Emergency Medicine Scan on 09/10/2024 11:59 AM by Venessa Hernandez PA-C: Consultation - Emergency Medicine Scan on 09/11/2024 1:23 PM by Venessa Hernandez PA-C: Discharge Summary Patient was already scheduled hospital follow up for abdomen pain. 09/17/2024. With Danielle. Francis Irizarry MA documented in this encounterAshtabula County [facility] Center01-31-2025 [facility] Medical Records Department [address] [place] [address] Discharge Summary 09/11/24 1257 MR#: [id number] Acct: [id number] Name: LUIS MANUEL DURAN Jr. Rep #: [id number] : 1940 83 From: Tito Henry MD PCP: Dr. Julio Licea MD Status:ADM NEW Location: [place] [address] Providers Date of Admission: 09/09/24 Date of Discharge: 09/11/24 Primary Care Physician: Dr. Julio Licea MD Consultations 09/09/24 19:41 Consult: Nephrology Routine Consulting Provider: Chriss Zayas Reason for Consult: ESRD on HD EMERGENT Consult: No Notified: Yes Date Notified: 09/10/24 Time Notified: 02:28 Method of Notification: Answering Service Consult: Vascular Surgery Routine Consulting Provider: Antione Montaño Reason for Consult: concern for mesenteric ischemia EMERGENT Consult: No Notified: Yes Date Notified: 09/10/24 Time Notified: 06:36 Method of Notification: Text Reason For Visit: INTRACTABLE ABD PAIN W/ POOR P.O. INTAKE Diagnosis Discharge Diagnosis (1) Nonocclusive mesenteric ischemia: Status: Acute Code(s): K55.059 - Acute (reversible) ischemia of intestine, part and extent unspecified (2) Transient hypotension: Status: Acute Code(s): I95.9 - Hypotension, unspecified (3) ESRD on hemodialysis: Status: Acute Code(s): N18.6 - End stage renal disease; Z99.2 - Dependence on renal dialysis Plan Patient is an 83-year-old male who presented to [facility] ED from hemodialysis center on 09/09/2024 with intermittent abdominal pain with nausea and dizziness. Has abdominal pain for past 1 year. He also gets low blood pressure during hemodialysis. Has CAD with multiple, 3 stents. Chronic atherosclerosis. 1. Suspected nonocclusive mesenteric ischemia with portal venous gas ??? Admit under observation status to PCU. General surgery and vascular surgery consulted. CT abdomen pelvis imaging on admit showed extensive atherosclerotic plaque in the aorta and major visceral branches especially the celiac artery and SMA. Also showed portal venous gas and gastric wall thickening with air within the wall. Patient with no significant abdominal pain, no WBC count elevation and normal lactic acid so no need for general surgery intervention. No arterial thrombus noted on imaging so no need for vascular surgery intervention at this point. Suspect symptoms are due to transient hypotension during dialysis and it may be reasonable to hold patient's home antihypertensive medications especially on days of dialysis to see if this improves his symptoms. Holding antihypertensive agents for now. 09/10: Discussed with the patient to avoid hypotension during hemodialysis. BPs 110/61. Patient was evaluated by vascular surgery and recommended the same. 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 Nonocclusive mesenteric ischemia ablated stool low flow state/hypotension during dialysis. No indication for vascular surgical indication. Avoid dehydration and hypotension 09/11: Patient was made aware of avoiding hypotension and the disability counselor also knows about that. Possible COPD with chronic cough: Chest x-ray PA and lateral reviewed. Does not have acute cardiopulmonary abnormality but chronic changes probably COPD changes. Patient has appointment with Dr. Malick Samayoa in October 2024. No pneumonic consolidation discharge medication reconciliation done. Discharge follow-up instructions completed. Discharge process discussed with the patient and all questions were answered to patient's satisfaction. Follow with PCP in 1 to 2 weeks Total time spent, exact 35 minutes on discharge meds reconciliation, examination, coordination of care with nurses and ancillary staff, review of imaging and blood test and discussion with the patient on follow-up instructions. 2. ESRD on HD ??? Nephrology consulted. On HD MWF, last session on day of admission and reportedly did complete the session. Appreciate nephrology recommendations. 08/24: Clinical Specialist note reviewed and aware of not to remove fluid aggressively. 3. History of CAD with stenting, hypertension, hyperlipidemia ??? History of stenting back in 2014, no recurrent issues since then. Continue home aspirin and atorvastatin. Will hold home Lasix, nitrate and metoprolol for now as noted above. 4. GERD ??? Continue home PPI. 5. BPH with obstructive symptoms ??? Continue home finasteride. DVT prophylaxis: Heparin subcu CODE STATUS: Full code, verified Medications at Discharge Home Medications aspirin 81 mg tablet,delayed release (Adult Low Dose Aspirin) 81 mg PO DAILY 04/29/18 nitroglycerin 0.4 mg sublingual tablet 0.4 mg sublingual X1 PRN CHEST PAIN 01/12/20 atorvastatin 40 mg tablet 40 mg PO QHS 11/24/20 pantoprazole 40 mg tablet,delayed release 40 mg PO DAILY 01/19/22 metoprol (more content not included)...[facility]01-30-2025 Note HNO ID: [id number] Author: MELIDA GONZALEZ LPN Service: ? Author Type: LICENSED NURSE Type: Progress Notes Filed: 09/10/2024 07:10 Note Text: Scan on 09/09/2024 5:45 PM by Venessa Hernandez PA-C: Consultation - Emergency Medicine Scan on 09/09/2024 9:53 PM by [facility]a [facility] History of Present illness Narrative* Melida Gonzalez LPN - 09/10/2024 7:10 AM EST Scan on 09/09/2024 5:45 PM by Venessa Hernandez PA-C: Consultation - Emergency Medicine Scan on 09/09/2024 9:53 PM by Venessa Hernandez PA-C documented in this encounterAs[facility]01-13-[facility]25 Telephone encounter Note * Telephone Encounter - Francis Irizarry MA - 08/24/2024 2:53 PM EST Received fax from [facility] requesting O/V results/demo Faxed. Francis Irizarry MA [facility]01-13-2025 Miscellaneous Notes* Telephone Encounter - Francis Irizarry MA - 08/24/2024 2:53 PM EST Received fax from [facility] requesting O/V results/demo Faxed. Francis Irizarry MA documented in this encounterAshtabula [facility] Center12-17-2024 NoteHNO ID: [id number] Author: FRANCIS IRIZARRY MA Service: ? Author Type: Partnership Manager Type: Progress Notes Filed: 07/28/2024 11:38 Note Text: Scan on 07/28/2024 8:36 AM by ProviderVenessa PA-C: Miscellaneous Lab Sputum culture - Dr. Stevens. [facility] History of Present illness Narrative* Francis Irizarry MA - 07/28/2024 11:37 AM EST Scan on 07/28/2024 8:36 AM by Venessa Hernandez PA-C: Miscellaneous Lab Sputum culture - Dr. Stevens. Francis Irizarry MA documented in this encounterAshtabula [facility] Center12-16-2024 NoteHNO ID: [id number] Author: MELIDA GONZALEZ LPN Service: ? Author Type: LICENSED NURSE Type: Progress Notes Filed: 07/27/2024 07:17 Note Text: Scan on 07/26/2024 3:10 PM by Venessa Hernandez PA-C: [facility] History of Present illness Narrative* Melida Gonzalez LPN - 07/27/2024 7:17 AM EST Scan on 07/26/2024 3:10 PM by Venessa Hernandez PA-C: Microbiology documented in this encounterAshtabula [facility] Center12-12-2024 NoteHNO ID: [id number] Author: MELIDA GONZALEZ LPN Service: ? Author Type: LICENSED NURSE Type: Progress Notes Filed: 07/23/2024 07:22 Note Text: Scan on 07/22/2024 10:53 PM by Venessa Hernandez PA-C: Consultation - [facility]12-12-20[facility] History of Present illness Narrative* Melida Gonzalez LPN - 07/23/2024 7:22 AM EST Scan on 07/22/2024 10:53 PM by Venessa Hernandez PA-C: Consultation - Emergency Medicine documented in this encounterAshtabula [facility]12-04-2024 Telephone encounter Note * Telephone Encounter - Triny Paz LPN - 07/15/2024 4:31 PM EST Spoke with pt and apt booked for 07-16-24. Triny Paz LPN [facility]12-04-2024 Miscellaneous Notes* Telephone Encounter - Triny Paz LPN - 07/15/2024 4:31 PM EST Spoke with pt and apt booked for 07-16-24. Triny Paz LPN * Telephone Encounter - Deanne Shen APRN.VIOLETTE - 07/14/2024 4:28 PM EST Please let patient know he will need to be seen in the office for evaluation. * Telephone Encounter - Nora De La Cruz LPN - 07/14/2024 3:31 PM EST Pt is calling to check on status of message. Nora De La Cruz LPN * Telephone Encounter - Nora De La Cruz LPN - 07/13/2024 2:25 PM EST Pt was seen 07/06/24. Xray was neg. Pt was prescribed Augmentin 500-125 mg - one tablet daily x 5 days. Pt reports he finished the atb and does not feel any better and did not while on atb. Pt reports nasal congestion, drainage and cough. Pt reports he will start coughing and not be able to stop for a while. Pt reports he does cough up some phlegm. Pt reports some SOB. Pt denies fever and pain. Pt reports he does dialysis so is using tired from that. Pt is not taking any otc medication for cough. Please review and advise. Nora De La Cruz LPN documented in this encounterAshtabula [facility] Center12-03-2024 Telephone encounter Note * Telephone Encounter - Deanne Shen APRN.VIOLETTE - 07/14/2024 4:28 PM EST Please let patient know he will need to be seen in the office for evaluation. [facility]12-03-[facility]24 Telephone encounter Note* Telephone Encounter - Nora De La Cruz LPN - 07/14/2024 3:31 PM EST Pt is calling to check on status of message. Nora De La Cruz LPN [facility]12-02-2024 Telephone encounter Note* Telephone Encounter - Nora De La Cruz LPN - 07/13/2024 2:25 PM EST Pt was seen 07/06/24. Xray was neg. Pt was prescribed Augmentin 500-125 mg - one tablet daily x 5 days. Pt reports he finished the atb and does not feel any better and did not while on atb. Pt reports nasal congestion, drainage and cough. Pt reports he will start coughing and not be able to stop for a while. Pt reports he does cough up some phlegm. Pt reports some SOB. Pt denies fever and pain. Pt reports he does dialysis so is using tired from that. Pt is not taking any otc medication for cough. Please review and advise. Nora De La Cruz LPN [facility]11-25-2024 Telephone encounter Note* Telephone Encounter - Ammy Cotton RN - 07/06/2024 10:59 AM EST Pt was just in to see Deanne Knrosio and states he was to receive an antibiotic. The antibiotic was accidentally sent to [facility] mail order. Pt states it will take 10 days for him to get it. Asked if prescription could please be sent to [facility]. Pt will call [facility] to tell them not to fill i t. Called and spoke with Clarice pharmacist at [facility] and gave her prescription information to fill. [facility]11-25-2024 Miscellaneous Notes* Telephone Encounter - Ammy Cotton RN - 07/06/2024 10:59 AM EST Pt was just in to see Deanne Shen and states he was to receive an antibiotic. The antibiotic was accidentally sent to [facility] mail order. Pt states it will take 10 days for him to get it. Asked if prescription could please be sent to [facility]. Pt will call [facility] to tell them not to fill i t. Called and spoke with Clarice pharmacist at [facility] and gave her prescription information to fill. documented in this encounterAshtabula County Medical Center11-25-2024 Telephone encounter Note * Telephone Encounter - Trevin Bermeo MA - 07/06/2024 10:28 AM EST Pt notified and verbalized understanding Trevin Bermeo MA [facility]11-25-2024 Miscellaneous Notes* Telephone Encounter - Trevin Bermeo MA - 07/06/2024 10:28 AM EST Pt notified and verbalized understanding rTevin Bermeo MA * Telephone Encounter - Deanne Shen APRN.CNP - 07/06/2024 10:25 AM EST Please let patient know their xray is normal. I have sent in antibiotics for a sinus infection. documented in this encounterAshtabula [facility] Center11-25-2024 Telephone encounter Note * Telephone Encounter - Deanne Shen APRN.CNP - 07/06/2024 10:25 AM EST Please let patient know their xray is normal. I have sent in antibiotics for a sinus infection. [facility]11-25-2024 History of Present illness Narrative* Mike Jason RT(R) - 07/06/2024 10:00 AM EST Radiology Service Progress Note PATIENT NAME: Luis Manuel Duran JR DATE OF SERVICE: July 06, 2024 TIME: 10:03 AM PATIENT IDENTITY VERIFICATION COMPLETED USING TWO (2) IDENTIFIERS: Name and Date of confirmedby patient verbally. FALL SCREENING: Has the patient had 2 falls in the last year or 1 fall with injury or currently using an Ambulatory Assistive Device (Walker, Cane, Wheelchair, Crutches, etc.)? No PATIENT GENDER DATA: Male PATIENT RELEVANT IMPLANT DATA REVIEWED: Not Applicable PATIENT PRESENTS WITH AN IMPLANTABLE OR ATTACHED SENIOR NETWORK SECURITY ARCHITECT: No RADIOLOGY DEPARTMENT: General X-ray: Exam(s) Completed: Chest X-Ray PERIPHERAL IV DATA: Not applicable SIGNED BY: JERO Sales) July 06, 2024 10:03 AM documented in this encounterAshtabula [facility] Center11-25-2024 NoteHNO ID: [id number] Author: MIKE JASON RT(R) Service: ? Author Type: Technologist Type: Progress Notes Filed: 07/06/2024 10:06 Note Text: Radiology Service Progress Note PATIENT NAME: Luis Manuel Duran JR DATE OF SERVICE: July 06, 2024 TIME: 10:03 AM PATIENT IDENTITY VERIFICATION COMPLETED USING TWO (2) IDENTIFIERS: Name and Date of confirmed by patient verbally. FALL SCREENING: Has the patient had 2 falls in the last year or 1 fall with injury or currently using an Ambulatory Assistive Device (Walker, Cane, Wheelchair, Crutches, etc.)? No PATIENT GENDER DATA: Male PATIENT RELEVANT IMPLANT DATA REVIEWED: Not Applicable PATIENT PRESENTS WITH AN IMPLANTABLE OR ATTACHED SENIOR NETWORK SECURITY ARCHITECT: No RADIOLOGY DEPARTMENT: General X-ray: Exam(s) Completed: Chest X-Ray PERIPHERAL IV DATA: Not applicable SIGNED BY: Mike Jason, RT(R) July 06, 2024 10:03 [facility]11-25-2024 NoteHNO ID: [id number] Author: DEANNE SHEN APRN.MAMMOGRAPHER Service: ? Author Type: Nurse Practitioner Type: Progress Notes Filed: 07/06/2024 09:51 Note Text: Chief Complaint Patient presents with: Cough nasal drainage HPI Luis Manuel Duran JR is a 83 year old male who presents here today for Above Complaints.. Patient presents for nasal congestion, drainage and cough x2 weeks. Cough is productive with yellow/clear phlegm. Denies fever, chills, chest pain. Reports nausea with occas vomiting, SOB with exertion. Was taking mucinex but stopped as it was not effective. Past medical history, appointments, medications, allergies reviewed. Previous Medical History PAST MEDICAL HISTORY Diagnosis Date Advance directive discussed with patient 12/15/2021 Discussed 12/2021 Anemia of chronic disease 10/15/2013 Benign essential tremor 07/03/2010 BPH with obstruction/lower urinary tract symptoms 08/01/2005 Chronic diastolic congestive heart failure (HCC) 12/15/2021 seeing cardio CKD (chronic kidney disease) stage 4, GFR 15-29 ml/min (HCC) 03/04/2017 Coronary artery disease involving white mountain coronary artery of white mountain heart without angina pectoris 03/06/[address] Horton Cardio Marc COVID-19 virus infection 05/29/2021 05/27/2021 Diaphragmatic hernia without mention of obstruction or gangrene Hiatal hernia Elevated alkaline phosphatase level 09/24/2023 Elevated bone fraction: NM bone scan 09/2023 was normal. Elevated PSA 03/11/2019 Esophagitis, unspecified ESRD (end stage renal disease) on dialysis ([facility]) 07/11/2023 Essential hypertension, benign Ex-smoker 12/26/2020 Started age 18 up to 1.5 PPD and quit at age 35. 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 deficiency (HCC) 10/15/2013 Living will on file 12/15/2021 DPA: Shea () Mild aortic stenosis 11/27/2021 Seeing Cardio Mixed hyperlipidemia 09/03/2013 Overweight (BMI 25.0-29.9) Parathyroid adenoma 05/27/2013 parathyroidectomy 05/27/13 Personal history of colonic polyps Colon polyps Primary hyperparathyroidism (HCC) 03/04/2017 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: 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 TIA (transient ischemic attack) 06/2010 Ulcer of esophagus without bleeding Vitamin D deficiency 10/15/2013 Previous Surgical History PAST SURGICAL HISTORY Procedure Laterality Date BX/EXC LYMPH NODE OPEN SUPERFICIAL CC CORONARY STENT 11/18/2023 2 stents to Left Circ COLONOSCOPY 12/22/2019 COLONOSCOPY FLX DX W/COLLJ SPEC WHEN PFRMD 08/2000 Colonoscopy COLONOSCOPY FLX DX W/COLLJ SPEC WHEN PFRMD 10/19/2008 EGD 06/11/2024 EGD TRANSORAL BIOPSY SINGLE/MULTIPLE 10/19/2008 ESOPHAGOGASTRODUODENOSCOPY TRANSORAL DIAGNOSTIC ESOPHAGOGASTRODUODENOSCOPY TRANSORAL DIAGNOSTIC 12/22/[address] Marcial LAPAROSCOPIC HERNIA REPAIR Right 05/21/2018 recurrent incarcerated direct right inguinal hernia PARATHYROIDECTOMY/EXPLORATION PARATHYROIDS 05/27/2013 Parathyroid adenoma PAST SURGICAL HISTORY OF 01/20/2021 supraumbilical ventral hernia RPR 1ST INGUN HRNA AGE 5 YRS/> REDUCIBLE Hernia repair, inguinal BILATERAL Family History FAMILY HISTORY Problem Relation Age of Onset Colon Cancer Mother Colon Cancer Father Arthritis Mother Heart Father SD * 2 Prostate Cancer Brother Hypertension Brother None Brother Patient Allergies ALLERGIES Allergen Reactions Axid [Nizatidine] Unknown Entex Pse [Pseudoep* Unknown Lisinopril Cough Current Medications Current Outpatient Medications on File Prior to Visit Medication Sig finasteride (PROSCAR) 5 mg tablet Take 5 mg by mouth once daily. lansoprazole (PREVACID) 30 mg capsule Take 1 capsule by mouth once daily. calcium acetate,phosphat bind, (PHOSLO) 667 mg capsule clopidogrel (PLAVIX) 75 mg tablet Take 1 tablet by mouth every afternoon. atorvastatin (LIPITOR) 40 mg tablet Take 1 tablet by mouth once daily. For cholesterol. calcium citrate (CALCITRATE) 200 mg (950 mg) tab Take 1 tablet by mouth four times daily. acetaminophen (TYLENOL EXTRA STRENGTH) 500 mg tablet Take 2 tablets by mouth every 6 hours as needed for pain. furosemide (LASIX) 80 mg tablet 1 tablet once daily. Per CardioMarc (Patient taking differently: 40 mg once daily. Per CardioGlennyMarc) metoprolol tartrate, short acting, (LOPRESSOR) 50 mg tablet 0.5 tablets twice daily. (Patient taking differently: Take 25 mg by mouth once daily.) nitroglycerin sublingual (NITROSTAT) 0.4 mg SL tablet Dissolve 1 tablet under the tongue every 5 minutes as needed. aspirin, enteric coated (ASPIRIN, ENTERIC COATED) 81 mg EC tablet Take 1 tablet by mouth once daily. No current facility-a (more content not included)...[facility] 07-06-[facility] History of Present illness Narrative* Deanne Shen, [place] - 07/06/2024 9:40 AM EST Chief Complaint Patient presents with: Cough nasal drainage HPI Luis Manuel Duran JR is a 83 year old male who presents here today for Above Complaints.. Patient presents for nasal congestion, drainage and cough x2 weeks. Cough is productive with yellow/clear phlegm. Denies fever, chills, chest pain. Reports nausea with occas vomiting, SOB with exertion. Was taking mucinex but stopped as it was not effective. Past medical history, appointments, medications, allergies reviewed. Previous Medical History PAST MEDICAL HISTORY Diagnosis Date Advance directive discussed with patient 12/15/2021 Discussed 12/2021 Anemia of chronic disease 10/15/2013 Benign essential tremor 07/03/2010 BPH with obstruction/lower urinary tract symptoms 08/01/2005 Chronic diastolic congestive heart failure (HCC) 12/15/2021 seeing cardio CKD (chronic kidney disease) stage 4, GFR 15-29 ml/min (HCC) 03/04/2017 Coronary artery disease involving [place] coronary artery of white [place] heart without angina pectoris 03/06/[address] Horton Cardio Marc COVID-19 virus infection 05/29/2021 05/27/2021 Diaphragmatic hernia without mention of obstruction or gangrene Hiatal hernia Elevated alkaline phosphatase level 09/24/2023 Elevated bone fraction: NM bone scan 09/2023 was normal. Elevated PSA 03/11/2019 Esophagitis, unspecified ESRD (end stage renal disease) on dialysis (HCC) 07/11/2023 Essential hypertension, benign Ex-smoker 12/26/2020 Started age 18 up to 1.5 PPD and quit at age 35. 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 deficiency ([facility]) 10/15/2013 Living will on file 12/15/2021 DPA: Shea () Mild aortic stenosis 11/27/2021 Seeing Cardio Mixed hyperlipidemia 09/03/2013 Overweight (BMI 25.0-29.9) Parathyroid adenoma 05/27/2013 parathyroidectomy 05/27/13 Personal history of colonic polyps Colon polyps Primary hyperparathyroidism ([facility]) 03/04/2017 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: 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 TIA (transient ischemic attack) 06/2010 Ulcer of esophagus without bleeding Vitamin D deficiency 10/15/2013 Previous Surgical History PAST SURGICAL HISTORY Procedure Laterality Date BX/EXC LYMPH NODE OPEN SUPERFICIAL CC CORONARY STENT 11/18/2023 2 stents to Left Circ COLONOSCOPY 12/22/2019 COLONOSCOPY FLX DX W/COLLJ SPEC WHEN PFRMD 08/2000 Colonoscopy COLONOSCOPY FLX DX W/COLLJ SPEC WHEN PFRMD 10/19/2008 EGD 06/11/2024 EGD TRANSORAL BIOPSY SINGLE/MULTIPLE 10/19/2008 ESOPHAGOGASTRODUODENOSCOPY TRANSORAL DIAGNOSTIC ESOPHAGOGASTRODUODENOSCOPY TRANSORAL DIAGNOSTIC 12/22/[address] Marcial LAPAROSCOPIC HERNIA REPAIR Right 05/21/2018 recurrent incarcerated direct right inguinal hernia PARATHYROIDECTOMY/EXPLORATION PARATHYROIDS 05/27/2013 Parathyroid adenoma PAST SURGICAL HISTORY OF 01/20/2021 supraumbilical ventral hernia RPR 1ST INGUN HRNA AGE 6 YRS/> REDUCIBLE Hernia repair, inguinal BILATERAL Family History FAMILY HISTORY Problem Relation Age of Onset Colon Cancer Mother Colon Cancer Father Arthritis Mother Heart Father SD * 2 Prostate Cancer Brother Hypertension Brother None Brother Patient Allergies ALLERGIES Allergen Reactions Axid [Nizatidine] Unknown Entex Pse [Pseudoep* Unknown Lisinopril Cough Current Medications Current Outpatient Medications on File Prior to Visit Medication Sig finasteride (PROSCAR) 5 mg tablet Take 5 mg by mouth once daily. lansoprazole (PREVACID) 30 mg capsule Take 1 capsule by mouth once daily. calcium acetate,phosphat bind, (PHOSLO) 667 mg capsule clopidogrel (PLAVIX) 75 mg tablet Take 1 tablet by mouth every afternoon. atorvastatin (LIPITOR) 40 mg tablet Take 1 tablet by mouth once daily. For cholesterol. calcium citrate (CALCITRATE) 200 mg (950 mg) tab Take 1 tablet by mouth four times daily. acetaminophen (TYLENOL EXTRA STRENGTH) 500 mg tablet Take 2 tablets by mouth every 6 hours as needed for pain. furosemide (LASIX) 80 mg tablet 1 tablet once daily. Per CardioMarc (Patient taking differently: 40 mg once daily. Per CardioMarc) metoprolol tartrate, short acting, (LOPRESSOR) 50 mg tablet 0.5 tablets twice daily. (Patient taking differently: Take 25 mg by mouth once daily.) nitroglycerin sublingual (NITROSTAT) 0.4 mg SL tablet Dissolve 1 tablet under the tongue every 5 minutes as needed. aspirin, enteric coated (ASPIRIN, ENTERIC COATED) 81 mg EC tablet Take 1 tablet by mouth once daily. No current facility-administered medications on file prior to visit. Social History Social History Tobacco Use Smoking status: Former Types: Cigarettes Smokeless tobacco: Never Tobacco comments: quit 1975 Vaping Use Vaping status: Never Used Substance Use Topics Alcohol use: Yes Alcohol/week: 1.0 standard drink of alcohol Types: 1 Standard drinks or equivalent per week Comment: very little Drug use: No Review of Symptoms REVIEW OF SYSTEMS SEE HPI EXAM: BP (!) 153/48 Pulse 66 Wt 77.1 kg (170 lb) BMI 26.63 kg/m General Appearance: Well appearing, alert, in no acute distress, well-hydrated, well nourished.. Nose/Sinuses: Positive findings: mucosa erythematous and swollen, clear rhinorrhea. Oropharynx: Lips, mucosa, and tongue normal, teeth and gums normal, oropharynx normal. Lungs: Positive findings: wheezing Shortness of breath: Upon exertion Cough. Heart: RRR without murmur, gallop, or rubs. No ectopy. Health Maintenance List Depression Screening Never done Anxiety Screening Never done Covid-19 Vaccine( season) due on 04/12/2024 Shingrix Vaccine(1 of 2) due on 09/21/2024 LDL Cholesterol due on 09/21/2024 Diabetes Screening due on 04/10/2027 DTaP,Tdap,Td Vaccine(5 - Td or Tdap) due on 11/01/2028 Influenza Vaccine Completed Advance Directive Discussion Completed RSV Vaccine Completed Pneumococcal Vaccine: 65+ Completed Hepatitis B Vaccine Discontinued Colorectal Cancer Screening Discontinued ASSESSMENT/PLAN: 1. Wheezing - ICD9: 786.07, ICD10: R06.2 (primary diagnosis) - XR CHEST 2V FRONTAL/LAT 2. Cough productive of clear sputum - ICD9: 786.2, ICD10: R05.8 - XR CHEST 2V FRONTAL/LAT 3. SOB (shortness of breath) - ICD9: 786.05, ICD10: R06.02 - XR CHEST 2V FRONTAL/LAT CXR to R/O PNA. Will treat for sinusitis if XR negative. Deanne Shen APRN.MAMMOGRAPHER documented in this encounterAshtabula [facility]11-21-2024 NoteHNO ID: [id number] Author: DAYANARA DICKINSON MA Service: ? Author Type: Partnership Manager Type: Progress Notes Filed: 07/02/2024 15:31 Note Text: Scan on 07/02/2024 11:41 AM by ProviderVenessa PA-C: [facility] History of Present illness Narrative* Dayanara Dickinson MA - 07/02/2024 3:30 PM EST Scan on 07/02/2024 11:41 AM by Venessa Hernandez PADonnaC: Consultation - Cardiology documented in this encounterAshtabula [facility]11-18-2024 Telephone encounter Note * Telephone Encounter - Laura Asher RN - 06/29/2024 11:36 AM EST Zaira Burnette APRN.CNP I would give the Prevacid at least 2 weeks to notice a change, but if they believe he is feeling this way because of the Prevacid he would be fine to go back to [facility]. Zaira Burnette APRN.MAMMOGRAPHER Message reviewed with Shea. She voiced understanding. Advised that he still is not feeling any better. Laura Asher RN [facility]11-18-2024 Miscellaneous Notes* Telephone Encounter - Laura Asher RN - 06/29/2024 11:36 AM EST Zaira Burnette APRN.CNP I would give the Prevacid at least 2 weeks to notice a change, but if they believe he is feeling this way because of the Prevacid he would be fine to go back to [facility]. Zaira Burnette APRN.MAMMOGRAPHER Message reviewed with Shea. She voiced understanding. Advised that he still is not feeling any better. Laura Asher RN * Telephone Encounter - José Antonio Suero LPN - 06/26/2024 1:00 PM EST Shea called. Verified name and date of of patient. Patient has been taking the Prevacid now for seven days with no relief. Patient is still having pain in stomach, hot and bothersome, and feels like he will throw up but sometimes he will throw up. Recently started with a dry cough but feels that is perhaps a cold. No temperature. Asking if patient should go back on Protonix. Does not feel that the Protonix helped the stomach anymore than the Prevacid. They will call PCP regarding coughas patient was miserable yesterday coughing nonstop. Please review and advise. José Antonio Suero LPN documented in this encounterAshtabula [facility] Center11-15-2024 Telephone encounter Note * Telephone Encounter - José Antonio Suero LPN - 06/26/2024 1:00 PM EST Shea called. Verified name and date of of patient. Patient has been taking the Prevacid now for seven days with no relief. Patient is still having pain in stomach, hot and bothersome, and feels like he will throw up but sometimes he will throw up. Recently started with a dry cough but feels that is perhaps a cold. No temperature. Asking if patient should go back on Protonix. Does not feel that the Protonix helped the stomach anymore than the Prevacid. They will call PCP regarding coughas patient was miserable yesterday coughing nonstop. Please review and advise. José Antonio Suero LPN [facility]11-08-2024 Telephone encounter Note* Telephone Encounter - Zaira Burnette APRN.CNP - 06/19/2024 9:36 AM EST *disregard my note about the Prilosec, I chose prevacid instead.* Can you please call Luis Manuel and let him know I sent in a prescription of Prevacid to [facility]. This medication works the same way at the [facility] and sometimes patients need to switch. He should take 1 pill 30 minutes before breakfast for the next 3 mos. Also work on lifestyle factors that aggravate acid reflux as we discussed in the office. If the medication doesn't work or he has any questions please let me know. ThanksZaira APRN.VIOLETTE [facility]11-08-2024 Miscellaneous Notes* Telephone Encounter - Zaira Burnette APRN.CNP - 06/19/2024 9:36 AM EST *disregard my note about the Prilosec, I chose prevacid instead.* Can you please call Luis Manuel and let him know I sent in a prescription of Prevacid to [facility]. This medication works the same way at the [facility] and sometimes patients need to switch. He should take 1 pill 30 minutes before breakfast for the next 3 mos. Also work on lifestyle factors that aggravate acid reflux as we discussed in the office. If the medication doesn't work or he has any questions please let me know. Thanks, Zaira Burnette APRN.MAMMOGRAPHER * Telephone Encounter - Vania Amaya MA - 06/19/2024 8:15 AM EST Patient seen in office yesterday and was prescribed Protonix. After they picked up the prescriptionand got home they discovered that he is already taking this medication and it is not helping. Please contact the patient back at [phone]. documented in this encounter[facility] Telephone encounter Note * Telephone Encounter - Vania Amaya MA - 06/19/2024 8:15 AM EST Patient seen in office yesterday and was prescribed Protonix. After they picked up the prescriptionand got home they discovered that he is already taking this medication and it is not helping. Please contact the patient back at [phone]. [facility]11-07-[facility] History of Present illness Narrative* Zaira Burnette APRN.MAMMOGRAPHER - 06/18/2024 9:00 AM EST FOLLOW UP VISIT - ENDOSCOPY Luis Manuel Duran JR 1940 [id number] REFERRING PHYSICIAN: Jaylene Callejas III [address] [facility] [id number] Luis Manuel Duran JR is a patient I am following for GERD. Dr. Callejas performed upper endoscopy on 06/11/24. The patient was found to have Impression: - 3 cm hiatal hernia. - Z-line regular, 40 cm from the incisors. Biopsied. - Gastritis. Biopsied. - Normal examined duodenum. Biopsied. Pathology demonstrated: FINAL DIAGNOSIS A. Duodenum, biopsy: - Duodenal mucosa with no significant histopathologic findings. B. Stomach, antrum, biopsy: - Gastric antral/oxyntic mucosa with mild chronic inactive gastritis. - No evidence of Helicobacter pylori organisms on H&E stain. C. Esophagus, distal, biopsy: - Squamous mucosa with reflux-associated reactive epithelial changes. - No evidence of increased intraepithelial eosinophils. D. Esophagus, mid, biopsy: - Squamous mucosa with no significant histopathologic findings. - No evidence of increased intraepithelial eosinophils. The patient notes some reflux. He states he ate spaghetti and then chili and noticed an increase inhis reflux symptoms. He notes he took protonix in the past with relief. VITALS: There were no vitals taken for this visit. General: patient is alert, cooperative, pleasant and in no acute distress On examination, the abdomen is benign. Assessment ASSESSMENT/PLAN: 1. Gastroesophageal reflux disease, unspecified whether esophagitis present - ICD9: 530.81, ICD10: K21.9 - Discussed lifestyle modifications including limiting caffeine, no meals three hours before sleep,and head of bed elevation - Protonix 40mg daily x 3 mos. PLAN: The operative findings and pathology report were reviewed with the patient, and the patient has hadthe opportunity to ask questions and have questions answered. If the patient notes any problems or changes in bowel function, the patient should contact me immediately. Otherwise I recommend follow up endoscopy as symptoms dictate. updated and recall letter generated. Discussed treatment plan and patient voices understanding. Patient's questions answered appropriately. Medications and potential side effects were discussed and patient voices understanding. Return to the office as scheduled or as needed for worsening/no improvement. Zaira Burnette APRN.VIOLETTE documented in this encounterAsht[facility]ula [facility]11-07-2024 NoteHNO ID: [id number] Author: ZAIRA BURNETTE APRN.CNP Service: ? Author Type: Nurse Practitioner Type: Progress Notes Filed: 06/18/2024 09:12 Note Text: FOLLOW UP VISIT - ENDOSCOPY Luis Manuel Duran JR 1940 [id number] REFERRING PHYSICIAN: Jaylene Callejas III [address] [place] [facility] [address] Luis Manuel Duran JR is a patient I am following for GERD. Dr. Callejas performed upper endoscopy on 06/11/24. The patient was found to have Impression: - 3 cm hiatal hernia. - Z-line regular, 40 cm from the incisors. Biopsied. - Gastritis. Biopsied. - Normal examined duodenum. Biopsied. Pathology demonstrated: FINAL DIAGNOSIS A. Duodenum, biopsy: - Duodenal mucosa with no significant histopathologic findings. B. Stomach, antrum, biopsy: - Gastric antral/oxyntic mucosa with mild chronic inactive gastritis. - No evidence of Helicobacter pylori organisms on REJI stain. C. Esophagus, distal, biopsy: - Squamous mucosa with reflux-associated reactive epithelial changes. - No evidence of increased intraepithelial eosinophils. D. Esophagus, mid, biopsy: - Squamous mucosa with no significant histopathologic findings. - No evidence of increased intraepithelial eosinophils. The patient notes some reflux. He states he ate spaghetti and then chili and noticed an increase in his reflux symptoms. He notes he took protonix in the past with relief. VITALS: There were no vitals taken for this visit. General: patient is alert, cooperative, pleasant and in no acute distress On examination, the abdomen is benign. Assessment ASSESSMENT/PLAN: 1. Gastroesophageal reflux disease, unspecified whether esophagitis present - ICD9: 530.81, ICD10: K21.9 - Discussed lifestyle modifications including limiting caffeine, no meals three hours before sleep, and head of bed elevation - Protonix 40mg daily x 3 mos. PLAN: The operative findings and pathology report were reviewed with the patient, and the patient has had the opportunity to ask questions and have questions answered. If the patient notes any problems or changes in bowel function, the patient should contact me immediately. Otherwise I recommend follow up endoscopy as symptoms dictate. HM updated and recall letter generated. Discussed treatment plan and patient voices understanding. Patient's questions answered appropriately. Medications and potential side effects were discussed and patient voices understanding. Return to the office as scheduled or as needed for worsening/no improvement. Zaira Burnette APRN.[facility]PC[facility]10-31-2024 Miscellaneous Notes* Discharge Instr - Nursing - Corina Landry RN - 06/11/2024 10:08 AM EDT The patient received a copy of EGD discharge instructions that contain information for how to contact the physician who performed the procedure and when to seek medical care. documented in this encounterAs[facility]10-31-2024 Note* Discharge Instr - Nursing - Corina Landry RN - 06/11/2024 10:08 AM EDT The patient received a copy of EGD discharge instructions that contain information for how to contact the physician who performed the procedure and when to seek medical care. [facility] Nurse Note* Corina Landry RN - 06/11/2024 10:05 AM EDT pt arrived to phase 2 resting, at bedside. SR up x 2, call light in reach. Corina Landry RN [facility]10-31-2024 Nurse Note* Corina Landry RN - 06/11/2024 10:05 AM EDT pt arrived to phase 2 resting, at bedside. SR up x 2, call light in reach. Corina Landry RN documented in this encounterAshtabula [facility]10-31-2024 History and physical note * Jaylene Callejas MD - 06/11/2024 10:00 AM EDT HISTORY AND PHYSICAL Luis Manuel Duran 1940 REFERRING PHYSICIAN: Deanne Shen APRN.* CHIEF COMPLAINT: New Patient (hernia) HPI: The patient is a 83 year old male referred for endoscopy. Patient presents for hospital discharge for chest pain. Reports admitted on 05/08 for chest pain andlater that night he passed a kidney stone and was urinating blood so he was unable to have heart cath until 05/11. Patient received LAQUITA to ostial Lcx after restenosis was found. Patient has follow up with cardiology and will schedule with urology. Patient also has instructions to follow up for cardiac rehab. Patient has had previous stents and no medication changes were made during admission. The patient notes the following upper complaints: Luis Manuel denies abdominal pain.. Luis Manuel notes heartburn. Luis Manuel denies dysphagia. Luis Manuel denies a history of ulcers/ peptic ulcer disease. The patient is being seen by me today at the request of Dr. Shen for my opinion and advice regarding Hiatal hernia Gastroesophageal reflux disease, unspecified whether esophagitis present (primary encounter diagnosis). PAST MEDICAL HISTORY PAST MEDICAL HISTORY Diagnosis Date Advance directive discussed with patient 12/15/2021 Discussed 12/2021 Anemia of chronic disease 10/15/2013 Benign essential tremor 07/03/2010 BPH with obstruction/lower urinary tract symptoms 08/01/2005 Chronic diastolic congestive heart failure (HCC) 12/15/2021 seeing cardio CKD (chronic kidney disease) stage 4, GFR 15-29 ml/min ([facility]) 03/04/2017 Coronary artery disease involving white mountain coronary artery of white mountain heart without angina pectoris 03/06/[address] Horton Cardio [place] COVID-19 virus infection 05/29/2021 05/27/2021 Diaphragmatic hernia without mention of obstruction or gangrene Hiatal hernia Elevated alkaline phosphatase level 09/24/2023 Elevated bone fraction: NM bone scan 09/2023 was normal. Elevated PSA 03/11/2019 Esophagitis, unspecified ESRD (end stage renal disease) on dialysis (HCC) 07/11/2023 Essential hypertension, benign Ex-smoker 12/26/2020 Started age 18 up to 1.5 PPD and quit at age 35. 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 deficiency (HCC) 10/15/2013 Living will on file 12/15/2021 DPA: Shea () Mild aortic stenosis 11/27/2021 Seeing Cardio Mixed hyperlipidemia 09/03/2013 Overweight (BMI 25.0-29.9) Parathyroid adenoma 05/27/2013 parathyroidectomy 05/27/13 Personal history of colonic polyps Colon polyps Primary hyperparathyroidism (HCC) 03/04/2017 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: 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 TIA (transient ischemic attack) 06/2010 Ulcer of esophagus without bleeding Vitamin D deficiency 10/15/2013 PAST SURGICAL HISTORY PAST SURGICAL HISTORY Procedure Laterality Date BX/EXC LYMPH NODE OPEN SUPERFICIAL CC CORONARY STENT 11/18/2023 2 stents to Left Circ COLONOSCOPY 12/22/2019 COLONOSCOPY FLX DX W/COLLJ SPEC WHEN PFRMD 08/2000 Colonoscopy COLONOSCOPY FLX DX W/COLLJ SPEC WHEN PFRMD 10/19/2008 EGD TRANSORAL BIOPSY SINGLE/MULTIPLE 10/19/2008 ESOPHAGOGASTRODUODENOSCOPY TRANSORAL DIAGNOSTIC ESOPHAGOGASTRODUODENOSCOPY TRANSORAL DIAGNOSTIC 12/22/[address] Marcial LAPAROSCOPIC HERNIA REPAIR Right 05/21/2018 recurrent incarcerated direct right inguinal hernia PARATHYROIDECTOMY/EXPLORATION PARATHYROIDS 05/27/2013 Parathyroid adenoma PAST SURGICAL HISTORY OF 01/20/2021 supraumbilical ventral hernia RPR 1ST INGUN HRNA AGE 5 YRS/> REDUCIBLE Hernia repair, inguinal BILATERAL CURRENT MEDICATIONS Current Outpatient Medications Medication Sig amLODIPine (NORVASC) 5 mg tablet Take 1 tablet by mouth once daily. (Patient not taking: Reported on 04/10/2024) calcium acetate,phosphat bind, (PHOSLO) 667 mg capsule clopidogrel (PLAVIX) 75 mg tablet Take 1 tablet by mouth every afternoon. atorvastatin (LIPITOR) 40 mg tablet Take 1 tablet by mouth once daily. For cholesterol. calcitriol (ROCALTROL) 0.25 mcg capsule Take 1 capsule by mouth two times a day. calcium citrate (CALCITRATE) 200 mg (950 mg) tab Take 1 tablet by mouth four times daily. ibuprofen (MOTRIN) 200 mg tablet Take 1-2 tablets by mouth every 4 hours as needed for pain. acetaminophen (TYLENOL EXTRA STRENGTH) 500 mg tablet Take 2 tablets by mouth every 6 hours as needed for pain. furosemide (LASIX) 80 mg tablet 1 tablet once daily. Per Marc Reveles (Patient taking differently: 40 mg once daily. Per Marc Reveles) metoprolol tartrate, short acting, (LOPRESSOR) 50 mg tablet 0.5 tablets twice daily. (Patient taking differently: Take 25 mg by mouth once daily.) pantoprazole DR (PROTONIX) 40 mg tablet Take 40 mg by mouth once daily. Take one tablet daily nitroglycerin sublingual (NITROSTAT) 0.4 mg SL tablet Dissolve 1 tablet under the tongue every 5 minutes as needed. aspirin, enteric coated (ASPIRIN, ENTERIC COATED) 81 mg EC tablet Take 1 tablet by mouth once daily. No current facility-administered medications for this visit. ALLERGIES: Axid [Nizatidine], Entex Pse [Pseudoephedrine-Guaifenesin], and Lisinopril PERSONAL HISTORY: SOCIAL HISTORY Social History Tobacco Use Smoking status: Former Types: Cigarettes Smokeless tobacco: Never Tobacco comments: quit 1976 Vaping Use Vaping status: Never Used Substance Use Topics Alcohol use: Yes Alcohol/week: 1.0 standard drink of alcohol Types: 1 Standard drinks or equivalent per week Comment: very little Drug use: No FAMILY HISTORY: FAMILY HISTORY FAMILY HISTORY Problem Relation Age of Onset Colon Cancer Mother Colon Cancer Father Arthritis Mother Heart Father SD * 2 Prostate Cancer Brother Hypertension Brother None Brother REVIEW OF SYMPTOMS: The review of systems data was entered by the nurse and reviewed by me There are no exam notes on file for this visit. PHYSICAL EXAMINATION: General: The patient is 83 year old male, well nourished, well hydrated in no acute distress. The patient is oriented to time, place, and person. VITALS: There were no vitals taken for this visit. There is no height or weight on file to calculate BMI. HEENT: Normal cephalic, ataumatic, pupils are equally round, sclera are anicteric, mucous membranesare moist, oropharynx is clear. Neck has no masses, asymmetry or lymphadenopathy. Thyroid is unremarkable. Respiratory: Clear to auscultation and percussion. Normal respiratory excursion and pattern. Cardiac: Examination is regular rate and rhythm. Abdominal exam: Soft, nontender, with no palpable masses. No hepatosplenomegaly. No palpable hernias. Rectal exam: exam deferred Extremities: no clubbing, cyanosis or edema. No adenopathy. Other: LABORATORY VALUES: As Noted RADIOLOGIC STUDIES: As Noted Assessment IMPRESSION: Hiatal hernia Gastroesophageal reflux disease, unspecified whether esophagitis present (primary encounter diagnosis) PLAN: I plan to perform upper endoscopy. We discussed the risks and benefits of the planned endoscopy. I have informed the patient that complications can occur including failure to complete the endoscopy and perforation. The patient had the opportunity to ask questions concerning the planned endoscopy. My staff has also explained the procedure to the patient in understandable terms and has given the patient printed material concerning the procedure. The patient freely consents to surgery. Diagnoses: (K21.9) Gastroesophageal reflux disease, unspecified whether esophagitis present (primary encounter diagnosis) (K44.9) Hiatal hernia My findings have been communicated to Dr. Shen via shared medical record. This note will be forwarded to Dr. Julio Licea MD. Return to Clinic: The patient is instructed to follow-up with me 1 week post operatively. Jaylene Callejas III, MD UPDATED HISTORY AND PHYSICAL EXAMINATION SERVICE DATE: 06/11/2024 SERVICE TIME: 9:09 AM SENSITIVE EXAMINATION CONSENT: The sensitive examination was discussed with the Patient or Patient's Authorized Parts Salesman. Asapplicable, any other physician, advance practice provider, medical student, or other health professional student that will be observing or involved in the sensitive examination for educational or training purposes was discussed with the Patient or Authorized Parts Salesman. The Patient or Authorized Parts Salesman has agreed to proceed with the sensitive examination. (Sensitive examination includes inspection and/or palpation of the breasts, pelvis, prostate and anorectal regions) PHYSICAL EXAM MUST BE COMPLETED ON ADMISSION The History and Physical (completed in the past 30 days) has been reviewed and the patient has beenexamined. The contents accurately reflect the patient's condition with the following additions or revisions since the H&P was completed. Examination indicates no changes. This H&P can be found in the attached. SIGNATURE: Jaylene Callejas III, MD PATIENT NAME: Luis Manuel Duran JR DATE: June 11, 2024 TIME: 9:09 AM [facility]10-[facility] History and physical note* Jaylene Callejas MD - 06/11/2024 10:00 AM EDT HISTORY AND PHYSICAL Luis Manuel Duran 1940 REFERRING PHYSICIAN: Deanne Shen APRN.* CHIEF COMPLAINT: New Patient (hernia) HPI: The patient is a 83 year old male referred for endoscopy. Patient presents for hospital discharge for chest pain. Reports admitted on 05/08 for chest pain andlater that night he passed a kidney stone and was urinating blood so he was unable to have heart cath until 05/11. Patient received LAQUITA to ostial Lcx after restenosis was found. Patient has follow up with cardiology and will schedule with urology. Patient also has instructions to follow up for cardiac rehab. Patient has had previous stents and no medication changes were made during admission. The patient notes the following upper complaints: Luis Manuel denies abdominal pain.. Luis Manuel notes heartburn. Luis Manuel denies dysphagia. Luis Manuel denies a history of ulcers/ peptic ulcer disease. The patient is being seen by me today at the request of Dr. Shen for my opinion and advice regarding Hiatal hernia Gastroesophageal reflux disease, unspecified whether esophagitis present (primary encounter diagnosis). PAST MEDICAL HISTORY PAST MEDICAL HISTORY Diagnosis Date Advance directive discussed with patient 12/15/2021 Discussed 12/2021 Anemia of chronic disease 10/15/2013 Benign essential tremor 07/03/2010 BPH with obstruction/lower urinary tract symptoms 08/01/2005 Chronic diastolic congestive heart failure (HCC) 12/15/2021 seeing cardio CKD (chronic kidney disease) stage 4, GFR 15-29 ml/min (HCC) 03/04/2017 Coronary artery disease involving [place] coronary artery of [place] heart without angina pectoris 03/06/[address] Horton Cardio [place] COVID-19 virus infection 05/29/2021 05/27/2021 Diaphragmatic hernia without mention of obstruction or gangrene Hiatal hernia Elevated alkaline phosphatase level 09/24/2023 Elevated bone fraction: NM bone scan 09/2023 was normal. Elevated PSA 03/11/2019 Esophagitis, unspecified ESRD (end stage renal disease) on dialysis ([facility]) 07/11/2023 Essential hypertension, benign Ex-smoker 12/26/2020 Started age 18 up to 1.5 PPD and quit at age 35. 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 deficiency ([facility]) 10/15/2013 Living will on file 12/15/2021 DPA: Shea () Mild aortic stenosis 11/27/2021 Seeing Cardio Mixed hyperlipidemia 09/03/2013 Overweight (BMI 25.0-29.9) Parathyroid adenoma 05/27/2013 parathyroidectomy 05/27/13 Personal history of colonic polyps Colon polyps Primary hyperparathyroidism ([facility]) 03/04/2017 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: 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 TIA (transient ischemic attack) 06/2010 Ulcer of esophagus without bleeding Vitamin D deficiency 10/15/2013 PAST SURGICAL HISTORY PAST SURGICAL HISTORY Procedure Laterality Date BX/EXC LYMPH NODE OPEN SUPERFICIAL CC CORONARY STENT 11/18/2023 2 stents to Left Circ COLONOSCOPY 12/22/2019 COLONOSCOPY FLX DX W/COLLJ SPEC WHEN PFRMD 08/2000 Colonoscopy COLONOSCOPY FLX DX W/COLLJ SPEC WHEN PFRMD 10/19/2008 EGD TRANSORAL BIOPSY SINGLE/MULTIPLE 10/19/2008 ESOPHAGOGASTRODUODENOSCOPY TRANSORAL DIAGNOSTIC ESOPHAGOGASTRODUODENOSCOPY TRANSORAL DIAGNOSTIC 12/22/[address] Marcial LAPAROSCOPIC HERNIA REPAIR Right 05/21/2018 recurrent incarcerated direct right inguinal hernia PARATHYROIDECTOMY/EXPLORATION PARATHYROIDS 05/27/2013 Parathyroid adenoma PAST SURGICAL HISTORY OF 01/20/2021 supraumbilical ventral hernia RPR 1ST INGUN HRNA AGE 5 YRS/> REDUCIBLE Hernia repair, inguinal BILATERAL CURRENT MEDICATIONS Current Outpatient Medications Medication Sig amLODIPine (NORVASC) 5 mg tablet Take 1 tablet by mouth once daily. (Patient not taking: Reported on 04/10/2024) calcium acetate,phosphat bind, (PHOSLO) 667 mg capsule clopidogrel (PLAVIX) 75 mg tablet Take 1 tablet by mouth every afternoon. atorvastatin (LIPITOR) 40 mg tablet Take 1 tablet by mouth once daily. For cholesterol. calcitriol (ROCALTROL) 0.25 mcg capsule Take 1 capsule by mouth two times a day. calcium citrate (CALCITRATE) 200 mg (950 mg) tab Take 1 tablet by mouth four times daily. ibuprofen (MOTRIN) 200 mg tablet Take 1-2 tablets by mouth every 4 hours as needed for pain. acetaminophen (TYLENOL EXTRA STRENGTH) 500 mg tablet Take 2 tablets by mouth every 6 hours as needed for pain. furosemide (LASIX) 80 mg tablet 1 tablet once daily. Per Marc Reveles (Patient taking differently: 40 mg once daily. Per Marc Reveles) metoprolol tartrate, short acting, (LOPRESSOR) 50 mg tablet 0.5 tablets twice daily. (Patient taking differently: Take 25 mg by mouth once daily.) pantoprazole DR (PROTONIX) 40 mg tablet Take 40 mg by mouth once daily. Take one tablet daily nitroglycerin sublingual (NITROSTAT) 0.4 mg SL tablet Dissolve 1 tablet under the tongue every 5 minutes as needed. aspirin, enteric coated (ASPIRIN, ENTERIC COATED) 81 mg EC tablet Take 1 tablet by mouth once daily. No current facility-administered medications for this visit. ALLERGIES: Axid [Nizatidine], Entex Pse [Pseudoephedrine-Guaifenesin], and Lisinopril PERSONAL HISTORY: SOCIAL HISTORY Social History Tobacco Use Smoking status: Former Types: Cigarettes Smokeless tobacco: Never Tobacco comments: quit 1976 Vaping Use Vaping status: Never Used Substance Use Topics Alcohol use: Yes Alcohol/week: 1.0 standard drink of alcohol Types: 1 Standard drinks or equivalent per week Comment: very little Drug use: No FAMILY HISTORY: FAMILY HISTORY FAMILY HISTORY Problem Relation Age of Onset Colon Cancer Mother Colon Cancer Father Arthritis Mother Heart Father SD * 2 Prostate Cancer Brother Hypertension Brother None Brother REVIEW OF SYMPTOMS: The review of systems data was entered by the nurse and reviewed by me There are no exam notes on file for this visit. PHYSICAL EXAMINATION: General: The patient is 83 year old male, well nourished, well hydrated in no acute distress. The patient is oriented to time, place, and person. VITALS: There were no vitals taken for this visit. There is no height or weight on file to calculate BMI. HEENT: Normal cephalic, ataumatic, pupils are equally round, sclera are anicteric, mucous membranesare moist, oropharynx is clear. Neck has no masses, asymmetry or lymphadenopathy. Thyroid is unremarkable. Respiratory: Clear to auscultation and percussion. Normal respiratory excursion and pattern. Cardiac: Examination is regular rate and rhythm. Abdominal exam: Soft, nontender, with no palpable masses. No hepatosplenomegaly. No palpable hernias. Rectal exam: exam deferred Extremities: no clubbing, cyanosis or edema. No adenopathy. Other: LABORATORY VALUES: As Noted RADIOLOGIC STUDIES: As Noted Assessment IMPRESSION: Hiatal hernia Gastroesophageal reflux disease, unspecified whether esophagitis present (primary encounter diagnosis) PLAN: I plan to perform upper endoscopy. We discussed the risks and benefits of the planned endoscopy. I have informed the patient that complications can occur including failure to complete the endoscopy and perforation. The patient had the opportunity to ask questions concerning the planned endoscopy. My staff has also explained the procedure to the patient in understandable terms and has given the patient printed material concerning the procedure. The patient freely consents to surgery. Diagnoses: (K21.9) Gastroesophageal reflux disease, unspecified whether esophagitis present (primary encounter diagnosis) (K44.9) Hiatal hernia My findings have been communicated to Dr. Shen via shared medical record. This note will be forwarded to Dr. Julio Licea MD. Return to Clinic: The patient is instructed to follow-up with me 1 week post operatively. Jaylene Callejas III, MD UPDATED HISTORY AND PHYSICAL EXAMINATION SERVICE DATE: 06/11/2024 SERVICE TIME: 9:09 AM SENSITIVE EXAMINATION CONSENT: The sensitive examination was discussed with the Patient or Patient's Authorized Parts Salesman. Asapplicable, any other physician, advance practice provider, medical student, or other health professional student that will be observing or involved in the sensitive examination for educational or training purposes was discussed with the Patient or Authorized Parts Salesman. The Patient or Authorized Parts Salesman has agreed to proceed with the sensitive examination. (Sensitive examination includes inspection and/or palpation of the breasts, pelvis, prostate and anorectal regions) PHYSICAL EXAM MUST BE COMPLETED ON ADMISSION The History and Physical (completed in the past 30 days) has been reviewed and the patient has beenexamined. The contents accurately reflect the patient's condition with the following additions or revisions since the H&P was completed. Examination indicates no changes. This H&P can be found in the attached. SIGNATURE: Jaylene Callejas III, MD PATIENT NAME: Luis Manuel Duran JR DATE: June 11, 2024 TIME: 9:09 AM documented in this encounterAs[facility]10-28-[facility] Telephone encounter Note * Telephone Encounter - Hodan Up - 06/08/2024 1:50 PM EDT Cardiac clearance form received. Patient is cleared to proceed with EGD but CANNOT stop Plavix and Aspirin. Per Dr. Callejas agreeable to this Patient aware Hodan Up Parallel Computing Software Engineer See scanned doc-attached to encounter as well [facility]10-28-[facility] Miscellaneous Notes* Telephone Encounter - Hodan Up - 06/08/2024 1:50 PM EDT Cardiac clearance form received. Patient is cleared to proceed with EGD but CANNOT stop Plavix and Aspirin. Per Dr. Callejas agreeable to this Patient aware Hodan Up Parallel Computing Software Engineer See scanned doc-attached to encounter as well * Telephone Encounter - Hodan Up - 06/04/2024 11:10 AM EDT Called [facility] in [place] again and left voicemail for nurse again to call me directly and respondback to cardiac clearance fax. Fax confirmations received every time office faxed form over Hodan Up Parallel Computing Software Engineer * Telephone Encounter - Hodan Up - 06/02/2024 1:03 PM EDT Left voicemail for Dr. Horton nurse Sarah TOMAS in regards to cardiac clearance response. Left direct line [phone] for any questions Hodan Villarrealond Parallel Computing Software Engineer * Telephone Encounter - Hodan Up - 05/28/2024 10:07 AM EDT Clearance form refaxed to [place] [facility] Hodanmariano Up Parallel Computing Software Engineer * Telephone Encounter - Hodan Up - 05/25/2024 4:12 PM EDT Cardiac clearance form faxed to Dr. Horton at [facility] in regards to Plavix Hodan Villarrealond Parallel Computing Software Engineer * Telephone Encounter - Hodan Up - 05/25/2024 3:28 PM EDT Message sent to PCP Dr. Licea in regards ti how long patient is to be off Plavix prior to 06/11/[address] Callejas in [facility] Patient to be notified by our office once cleared Hodan Villarrealond Parallel Computing Software Engineer documented in this encounterAs[facility]10-24-2024 Telephone encounter Note * Telephone Encounter - Hodan Up - 06/04/2024 11:10 AM EDT Called [facility] in [place] again and left voicemail for nurse again to call me directly and respondback to cardiac clearance fax. Fax confirmations received every time office faxed form over Hodan Villarrealond Parallel Computing Software Engineer [facility]10-[facility] Telephone encounter Note* Telephone Encounter - Hodan pU - 06/02/2024 1:03 PM EDT Left voicemail for Dr. Horton nurse Sarah TOMAS in regards to cardiac clearance response. Left direct line [phone] for any questions Hodan Up Parallel Computing Software Engineer [facility]10-[facility] Telephone encounter Note* Telephone Encounter - Hodan Up - 05/28/2024 10:07 AM EDT Clearance form refaxed to [place] [facility] Hodan Up Parallel Computing Software Engineer [facility]10-[facility] Telephone encounter Note* Telephone Encounter - Hodan Up - 05/25/2024 4:12 PM EDT Cardiac clearance form faxed to Dr. Horton at [facility] in regards to Plavix Hodan Up Parallel Computing Software Engineer [facility]10-14-[facility] Telephone encounter Note* Telephone Encounter - Hodan Up - 05/25/2024 3:28 PM EDT Message sent to PCP Dr. Licea in regards ti how long patient is to be off Plavix prior to 06/11/[address] Callejas in [facility] Patient to be notified by our office once cleared Hodanmariano Up Parallel Computing Software Engineer [facility]10-14-2024 NoteHNO ID: [id number] Author: JAYLENE CALLEJAS MD Service: ? Author Type: Physician Type: Progress Notes Filed: 05/31/2024 12:14 Note Text: HISTORY AND PHYSICAL Luis Manuel Duran JR 1940 REFERRING PHYSICIAN: Deanne Shen APRN.* CHIEF COMPLAINT: New Patient (hernia) HPI: The patient is a 83 year old male referred for endoscopy. Patient presents for hospital discharge for chest pain. Reports admitted on 05/08 for chest pain and later that night he passed a kidney stone and was urinating blood so he was unable to have heart cath until 05/11. Patient received LAQUITA to ostial Lcx after restenosis was found. Patient has follow up with cardiology and will schedule with urology. Patient also has instructions to follow up for cardiac rehab. Patient has had previous stents and no medication changes were made during admission. The patient notes the following upper complaints: Luis Manuel denies abdominal pain.. Luis Manuel notes heartburn. Luis Manuel denies dysphagia. Luis Manuel denies a history of ulcers/ peptic ulcer disease. The patient is being seen by me today at the request of Dr. Shen for my opinion and advice regarding Hiatal hernia Gastroesophageal reflux disease, unspecified whether esophagitis present (primary encounter diagnosis). PAST MEDICAL HISTORY Diagnosis Date Advance directive discussed with patient 12/15/2021 Discussed 12/2021 Anemia of chronic disease 10/15/2013 Benign essential tremor 07/03/2010 BPH with obstruction/lower urinary tract symptoms 08/01/2005 Chronic diastolic congestive heart failure (HCC) 12/15/2021 seeing cardio CKD (chronic kidney disease) stage 4, GFR 15-29 ml/min ([facility]) 03/04/2017 Coronary artery disease involving white mountain coronary artery of white mountain heart without angina pectoris 03/06/[address] Horton [facility] [place] COVID-19 virus infection 05/29/2021 05/27/2021 Diaphragmatic hernia without mention of obstruction or gangrene Hiatal hernia Elevated alkaline phosphatase level 09/24/2023 Elevated bone fraction: NM bone scan 09/2023 was normal. Elevated PSA 03/11/2019 Esophagitis, unspecified ESRD (end stage renal disease) on dialysis ([facility]) 07/11/2023 Essential hypertension, benign Ex-smoker 12/26/2020 Started age 18 up to 1.5 PPD and quit at age 35. 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 deficiency ([facility]) 10/15/2013 Living will on file 12/15/2021 DPA: Shea () Mild aortic stenosis 11/27/2021 Seeing Cardio Mixed hyperlipidemia 09/03/2013 Overweight (BMI 25.0-29.9) Parathyroid adenoma 05/27/2013 parathyroidectomy 05/27/13 Personal history of colonic polyps Colon polyps Primary hyperparathyroidism (HCC) 03/04/2017 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: 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 TIA (transient ischemic attack) 06/2010 Ulcer of esophagus without bleeding Vitamin D deficiency 10/15/2013 PAST SURGICAL HISTORY Procedure Laterality Date BX/EXC LYMPH NODE OPEN SUPERFICIAL CC CORONARY STENT 11/18/2023 2 stents to Left Circ COLONOSCOPY 12/22/2019 COLONOSCOPY FLX DX W/COLLJ SPEC WHEN PFRMD 08/2000 Colonoscopy COLONOSCOPY FLX DX W/COLLJ SPEC WHEN PFRMD 10/19/2008 EGD TRANSORAL BIOPSY SINGLE/MULTIPLE 10/19/2008 ESOPHAGOGASTRODUODENOSCOPY TRANSORAL DIAGNOSTIC ESOPHAGOGASTRODUODENOSCOPY TRANSORAL DIAGNOSTIC 12/22/[address] Marcial LAPAROSCOPIC HERNIA REPAIR Right 05/21/2018 recurrent incarcerated direct right inguinal hernia PARATHYROIDECTOMY/EXPLORATION PARATHYROIDS 05/27/2013 Parathyroid adenoma PAST SURGICAL HISTORY OF 01/20/2021 supraumbilical ventral hernia RPR 1ST INGUN HRNA AGE 5 YRS/> REDUCIBLE Hernia repair, inguinal BILATERAL Current Outpatient Medications Medication Sig amLODIPine (NORVASC) 5 mg tablet Take 1 tablet by mouth once daily. (Patient not taking: Reported on 04/10/2024) calcium acetate,phosphat bind, (PHOSLO) 667 mg capsule clopidogrel (PLAVIX) 75 mg tablet Take 1 tablet by mouth every afternoon. atorvastatin (LIPITOR) 40 mg tablet Take 1 tablet by mouth once daily. For cholesterol. calcitriol (ROCALTROL) 0.25 mcg capsule Take 1 capsule by mouth two times a day. calcium citrate (CALCITRATE) 200 mg (950 mg) tab Take 1 tablet by mouth four times daily. ibuprofen (MOTRIN) 200 mg tablet Take 1-2 tablets by mouth every 4 hours as needed for pain. acetaminophen (TYLENOL EXTRA STRENGTH) 500 mg tablet Take 2 tablets by mouth every 6 hours as needed for pain. furosemide (LASIX) 80 mg tablet 1 tablet once daily. Per [facility] (Patient taking differently: 40 mg once daily. Per [facility]) metoprolol tartrate, short acting, (LOPRESSOR) 50 mg tablet 0.5 tablets twice daily. (Patient (more content not included)...[facility] 05-25-2024 History of Present illness Narrative* Júnior, Jaylene P, MD - 05/25/2024 3:01 PM EDT HISTORY AND PHYSICAL Luis Manuel Duran 1940 REFERRING PHYSICIAN: Deanne Shen APRN.* CHIEF COMPLAINT: New Patient (hernia) HPI: The patient is a 83 year old male referred for endoscopy. Patient presents for hospital discharge for chest pain. Reports admitted on 05/08 for chest pain andlater that night he passed a kidney stone and was urinating blood so he was unable to have heart cath until 05/11. Patient received LAQUITA to ostial Lcx after restenosis was found. Patient has follow up with cardiology and will schedule with urology. Patient also has instructions to follow up for cardiac rehab. Patient has had previous stents and no medication changes were made during admission. The patient notes the following upper complaints: Luis Manuel denies abdominal pain.. Luis Manuel notes heartburn. Luis Manuel denies dysphagia. Luis Manuel denies a history of ulcers/ peptic ulcer disease. The patient is being seen by me today at the request of Dr. Shen for my opinion and advice regarding Hiatal hernia Gastroesophageal reflux disease, unspecified whether esophagitis present (primary encounter diagnosis). PAST MEDICAL HISTORY Diagnosis Date Advance directive discussed with patient 12/15/2021 Discussed 12/2021 Anemia of chronic disease 10/15/2013 Benign essential tremor 07/03/2010 BPH with obstruction/lower urinary tract symptoms 08/01/2005 Chronic diastolic congestive heart failure (HCC) 12/15/2021 seeing cardio CKD (chronic kidney disease) stage 4, GFR 15-29 ml/min (HCC) 03/04/2017 Coronary artery disease involving white mountain coronary artery of white mountain heart without angina pectoris 03/06/[address] Horton [facility] [place] COVID-19 virus infection 05/29/2021 05/27/2021 Diaphragmatic hernia without mention of obstruction or gangrene Hiatal hernia Elevated alkaline phosphatase level 09/24/2023 Elevated bone fraction: NM bone scan 09/2023 was normal. Elevated PSA 03/11/2019 Esophagitis, unspecified ESRD (end stage renal disease) on dialysis (HCC) 07/11/2023 Essential hypertension, benign Ex-smoker 12/26/2020 Started age 18 up to 1.5 PPD and quit at age 35. 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 deficiency (HCC) 10/15/2013 Living will on file 12/15/2021 DPA: Shea () Mild aortic stenosis 11/27/2021 Seeing Cardio Mixed hyperlipidemia 09/03/2013 Overweight (BMI 25.0-29.9) Parathyroid adenoma 05/27/2013 parathyroidectomy 05/27/13 Personal history of colonic polyps Colon polyps Primary hyperparathyroidism (HCC) 03/04/2017 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: 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 TIA (transient ischemic attack) 06/2010 Ulcer of esophagus without bleeding Vitamin D deficiency 10/15/2013 PAST SURGICAL HISTORY Procedure Laterality Date BX/EXC LYMPH NODE OPEN SUPERFICIAL CC CORONARY STENT 11/18/2023 2 stents to Left Circ COLONOSCOPY 12/22/2019 COLONOSCOPY FLX DX W/COLLJ SPEC WHEN PFRMD 08/2000 Colonoscopy COLONOSCOPY FLX DX W/COLLJ SPEC WHEN PFRMD 10/19/2008 EGD TRANSORAL BIOPSY SINGLE/MULTIPLE 10/19/2008 ESOPHAGOGASTRODUODENOSCOPY TRANSORAL DIAGNOSTIC ESOPHAGOGASTRODUODENOSCOPY TRANSORAL DIAGNOSTIC 12/22/[address] Marcial LAPAROSCOPIC HERNIA REPAIR Right 05/21/2018 recurrent incarcerated direct right inguinal hernia PARATHYROIDECTOMY/EXPLORATION PARATHYROIDS 05/27/2013 Parathyroid adenoma PAST SURGICAL HISTORY OF 01/20/2021 supraumbilical ventral hernia RPR 1ST INGUN HRNA AGE 5 YRS/> REDUCIBLE Hernia repair, inguinal BILATERAL Current Outpatient Medications Medication Sig amLODIPine (NORVASC) 5 mg tablet Take 1 tablet by mouth once daily. (Patient not taking: Reported on 04/10/2024) calcium acetate,phosphat bind, (PHOSLO) 667 mg capsule clopidogrel (PLAVIX) 75 mg tablet Take 1 tablet by mouth every afternoon. atorvastatin (LIPITOR) 40 mg tablet Take 1 tablet by mouth once daily. For cholesterol. calcitriol (ROCALTROL) 0.25 mcg capsule Take 1 capsule by mouth two times a day. calcium citrate (CALCITRATE) 200 mg (950 mg) tab Take 1 tablet by mouth four times daily. ibuprofen (MOTRIN) 200 mg tablet Take 1-2 tablets by mouth every 4 hours as needed for pain. acetaminophen (TYLENOL EXTRA STRENGTH) 500 mg tablet Take 2 tablets by mouth every 6 hours as needed for pain. furosemide (LASIX) 80 mg tablet 1 tablet once daily. Per Marc Reveles (Patient taking differently: 40 mg once daily. Per Marc Reveles) metoprolol tartrate, short acting, (LOPRESSOR) 50 mg tablet 0.5 tablets twice daily. (Patient taking differently: Take 25 mg by mouth once daily.) pantoprazole DR (PROTONIX) 40 mg tablet Take 40 mg by mouth once daily. Take one tablet daily nitroglycerin sublingual (NITROSTAT) 0.4 mg SL tablet Dissolve 1 tablet under the tongue every 5 minutes as needed. aspirin, enteric coated (ASPIRIN, ENTERIC COATED) 81 mg EC tablet Take 1 tablet by mouth once daily. No current facility-administered medications for this visit. ALLERGIES: Axid [Nizatidine], Entex Pse [Pseudoephedrine-Guaifenesin], and Lisinopril PERSONAL HISTORY: Social History Tobacco Use Smoking status: Former Types: Cigarettes Smokeless tobacco: Never Tobacco comments: quit 1976 Vaping Use Vaping status: Never Used Substance Use Topics Alcohol use: Yes Alcohol/week: 1.0 standard drink of alcohol Types: 1 Standard drinks or equivalent per week Comment: very little Drug use: No FAMILY HISTORY: FAMILY HISTORY Problem Relation Age of Onset Colon Cancer Mother Colon Cancer Father Arthritis Mother Heart Father SD * 2 Prostate Cancer Brother Hypertension Brother None Brother REVIEW OF SYMPTOMS: The review of systems data was entered by the nurse and reviewed by me There are no exam notes on file for this visit. PHYSICAL EXAMINATION: General: The patient is 83 year old male, well nourished, well hydrated in no acute distress. The patient is oriented to time, place, and person. VITALS: There were no vitals taken for this visit. There is no height or weight on file to calculate BMI. HEENT: Normal cephalic, ataumatic, pupils are equally round, sclera are anicteric, mucous membranesare moist, oropharynx is clear. Neck has no masses, asymmetry or lymphadenopathy. Thyroid is unremarkable. Respiratory: Clear to auscultation and percussion. Normal respiratory excursion and pattern. Cardiac: Examination is regular rate and rhythm. Abdominal exam: Soft, nontender, with no palpable masses. No hepatosplenomegaly. No palpable hernias. Rectal exam: exam deferred Extremities: no clubbing, cyanosis or edema. No adenopathy. Other: LABORATORY VALUES: As Noted RADIOLOGIC STUDIES: As Noted Assessment IMPRESSION: Hiatal hernia Gastroesophageal reflux disease, unspecified whether esophagitis present (primary encounter diagnosis) PLAN: I plan to perform upper endoscopy. We discussed the risks and benefits of the planned endoscopy. I have informed the patient that complications can occur including failure to complete the endoscopy and perforation. The patient had the opportunity to ask questions concerning the planned endoscopy. My staff has also explained the procedure to the patient in understandable terms and has given the patient printed material concerning the procedure. The patient freely consents to surgery. Diagnoses: (K21.9) Gastroesophageal reflux disease, unspecified whether esophagitis present (primary encounter diagnosis) (K44.9) Hiatal hernia My findings have been communicated to Dr. Shen via shared medical record. This note will be forwarded to Dr. Julio Licea MD. Return to Clinic: The patient is instructed to follow-up with me 1 week post operatively. Jaylene Callejas III, MD documented in this encounterAsht[facility]10-07-2024 NoteHNO ID: [id number] Author: DEANNE SHEN APRN.MAMMOGRAPHER Service: ? Author Type: Nurse Practitioner Type: Progress Notes Filed: 05/18/2024 14:31 Note Text: Transitional Care Management TCM Eligibility Documentation The following information was gathered during patient outreach 05/14/2024 Date of Outreach: Outreach Attempt 1: Contact Made Date of Discharge 05/12/2024 Provider Documentation Luis Manuel Guzman Roger is a 83 year old male here today for a follow up from recent hospitalization. I have reviewed the patient's hospital course including discharge summary, discharge medications , and follow up needs with the patient and any family members present at today's visit. HPI Patient presents for hospital discharge for chest pain. Reports admitted on 05/08 for chest pain and later that night he passed a kidney stone and was urinating blood so he was unable to have heart cath until 05/11. Patient received LAQUITA to ostial Lcx after restenosis was found. Patient has follow up with cardiology and will schedule with urology. Patient also has instructions to follow up for cardiac rehab. Patient has had previous stents and no medication changes were made during admission. PHYSICAL EXAMINATION BP 134/61 Pulse 91 Resp 18 Wt 77.6 kg (171 lb) BMI 26.78 kg/m? GENERAL: well appearing, alert, in no acute distress HEART: regular rate and rhythm. No murmur, rubs or gallops. LUNGS: clear to auscultation, no wheezing, rhonchi, or crackles ABDOMEN: soft, non-tender, non-distended, no masses or organomegaly EXTREMITIES: no lower extremity edema. No skin discoloration. FISTULA:AV Fistula to right lower arm positive thrill, positive bruit. ASSESSMENT/PLAN: 1. ESRD (end stage renal disease) on dialysis ([facility]) - ICD9: 585.6, V45.11, ICD10: N18.6, Z99.2 (primary diagnosis) - eGFR: 17 Stable - Continue dialysis -- and regular follow ups with Dr. Quiles 2. Gastroesophageal reflux disease with esophagitis without hemorrhage - ICD9: 530.81, 530.10, ICD10: K21.00 - Continue treatment with Pantoprazole QD - Setup for Upper GI Series with Follow Through 3. Hiatal hernia - ICD9: 553.3, ICD10: K44.9 - CONSULT TO GENERAL SURGERY 4. Coronary artery disease involving white mountain coronary artery of white mountain heart without angina pectoris - ICD9: 414.01, ICD10: I25.10 -Follow up with cardiology as scheduled -Continue current medications 5. ASHD (arteriosclerotic heart disease) - ICD9: 414.00, ICD10: I25.10 -Follow up with cardiology as scheduled -Continue current medications 6. H/O heart artery stent - ICD9: V45.82, ICD10: Z95.5 -Follow up with cardiology as scheduled -Continue current medications 7. Kidney Stone- ICD10:N20.0 -Follow up with urology De[facility] Shen APRN.[facility] History of Present illness Narrative* Deanne Shen APRN.MAMMOGRAPHER - 05/18/2024 2:08 PM EDT Transitional Care Management TCM Eligibility Documentation The following information was gathered during patient outreach 05/14/2024 Date of Outreach: Outreach Attempt 1: Contact Made Date of Discharge 05/12/2024 Provider Documentation Luis Manuel Duran JR is a 83 year old male here today for a follow up from recent hospitalization. I have reviewed the patient's hospital course including discharge summary, discharge medications , and follow up needs with the patient and any family members present at today's visit. HPI Patient presents for hospital discharge for chest pain. Reports admitted on 05/08 for chest pain andlater that night he passed a kidney stone and was urinating blood so he was unable to have heart cath until 05/11. Patient received LAQUITA to ostial Lcx after restenosis was found. Patient has follow up with cardiology and will schedule with urology. Patient also has instructions to follow up for cardiac rehab. Patient has had previous stents and no medication changes were made during admission. PHYSICAL EXAMINATION BP 134/61 Pulse 91 Resp 18 Wt 77.6 kg (171 lb) BMI 26.78 kg/m GENERAL: well appearing, alert, in no acute distress HEART: regular rate and rhythm. No murmur, rubs or gallops. LUNGS: clear to auscultation, no wheezing, rhonchi, or crackles ABDOMEN: soft, non-tender, non-distended, no masses or organomegaly EXTREMITIES: no lower extremity edema. No skin discoloration. FISTULA:AV Fistula to right lower arm positive thrill, positive bruit. ASSESSMENT/PLAN: 1. ESRD (end stage renal disease) on dialysis (HCC) - ICD9: 585.6, V45.11, ICD10: N18.6, Z99.2 (primary diagnosis) - eGFR: 17 Stable - Continue dialysis -w- and regular follow ups with Dr. Quiles 2. Gastroesophageal reflux disease with esophagitis without hemorrhage - ICD9: 530.81, 530.10, ICD10: K21.00 - Continue treatment with Pantoprazole QD - Setup for Upper GI Series with Follow Through 3. Hiatal hernia - ICD9: 553.3, ICD10: K44.9 - CONSULT TO GENERAL SURGERY 4. Coronary artery disease involving white mountain coronary artery of white mountain heart without angina pectoris- ICD9: 414.01, ICD10: I25.10 -Follow up with cardiology as scheduled -Continue current medications 5. ASHD (arteriosclerotic heart disease) - ICD9: 414.00, ICD10: I25.10 -Follow up with cardiology as scheduled -Continue current medications 6. H/O heart artery stent - ICD9: V45.82, ICD10: Z95.5 -Follow up with cardiology as scheduled -Continue current medications 7. Kidney Stone- ICD10:N20.0 -Follow up with urology Deanne Shen APRN.VIOLETTE documented in this encounterAshtabula [facility]10-03-2024 NoteHNO ID: [id number] Author: TRINY PAZ LPN Service: ? Author Type: LICENSED NURSE Type: Progress Notes Filed: 05/15/2024 07:46 Note Text: TRANSITION CARE MANAGEMENT (TCM) INITIAL CONTACT Partnership Manager Outreach Provider Action/FYI: Pt called to schedule a Hospital FU Initial contact with patient post discharge, spoke to patient. Patient identified by name and . TRANSITION CARE MANAGEMENT INITIAL OUTREACH DOCUMENTATION: 05/14/2024 Date of Outreach: Outreach Attempt 1: Contact Made Date of Discharge 05/12/2024 SUMMARY: -Pt discharged from [facility] on 05/12/24. -Admitted for: Chest pain Do you have a hospital follow up appointment with your PCP? Appointment on 05-18-24 with Deanne Shen CNP. Yes. Remind patient of appointment date, time, and location. If not within 14 calendar days of discharge - please reschedule accordingly. MEDICATIONS: Many patients have questions or concerns about their medications once they are home. Were you prescribed any new medications? No Were you told to hold any medications? No Were any of your medications discontinued? No Do you have any questions about getting or taking your medications? No Your discharge instructions/After visit Summary (AVS) are important in guiding you through the recovery process. Is there anything I might help you understand? No Do you have all the necessary equipment and supplies at home? Yes Medical records from recent hospitalization: Ge records from [facility]10-03-2024 History of Present illness Narrative* Triny Paz LPN - 05/14/2024 10:30 AM EDT TRANSITION CARE MANAGEMENT (TCM) INITIAL CONTACT Partnership Manager Outreach Provider Action/FYI: Pt called to schedule a Hospital FU Initial contact with patient post discharge, spoke to patient. Patient identified by name and . TRANSITION CARE MANAGEMENT INITIAL OUTREACH DOCUMENTATION: 05/14/2024 Date of Outreach: Outreach Attempt 1: Contact Made Date of Discharge 05/12/2024 SUMMARY: -Pt discharged from [facility] on 05/12/24. -Admitted for: Chest pain Do you have a hospital follow up appointment with your PCP? Appointment on 05-18-24 with Deanne Shen CNP. Yes. Remind patient of appointment date, time, and location. If not within 14 calendar days of discharge - please reschedule accordingly. MEDICATIONS: Many patients have questions or concerns about their medications once they are home. Were you prescribed any new medications? No Were you told to hold any medications? No Were any of your medications discontinued? No Do you have any questions about getting or taking your medications? No Your discharge instructions/After visit Summary (AVS) are important in guiding you through the recovery process. Is there anything I might help you understand? No Do you have all the necessary equipment and supplies at home? Yes Medical records from recent hospitalization: [facility] encounter Note * Telephone Encounter - Triny Paz LPN - 05/14/2024 10:17 AM EDT Pt called in to schedule a hospital follow up. Pt went into [facility] 05/08/24 with chest pain and was sent to [facility] and admitted. Pt was d/c on 05/12/24. TCM done and FU apt booked. Triny Paz LPN [facility]10[facility] Miscellaneous Notes* Telephone Encounter - Triny Paz LPN - 05/14/2024 10:17 AM EDT Pt called in to schedule a hospital follow up. Pt went into [facility] ER 05/08/24 with chest pain and was sent to [facility] and admitted. Pt was d/c on 05/12/24. TCM done and FU apt booked. Triny Paz LPN [facility] NotePatient Outreach (CARLOSPRASHAUN) LUIS MANUEL DURAN JR ([id number]) 1940 M Date Time Provider Department 05/14/24 JULIO LICEA During your visit today, we recorded the following information about you: Triny Paz LPN 05/15/2024 7:46 AM Signed TRANSITION CARE MANAGEMENT (TCM) INITIAL CONTACT Partnership Manager Outreach Provider Action/FYI: Pt called to schedule a Hospital FU Initial contact with patient post discharge, spoke to patient. Patient identified by name and . TRANSITION CARE MANAGEMENT INITIAL OUTREACH DOCUMENTATION: 05/14/2024 Date of Outreach: Outreach Attempt 1: Contact Made Date of Discharge 05/12/2024 SUMMARY: -Pt discharged from [facility] on 05/12/24. -Admitted for: Chest pain Do you have a hospital follow up appointment with your PCP? Appointment on 05-18-24 with Deanne Shen CNP. Yes. Remind patient of appointment date, time, and location. If not within 14 calendar days of discharge - please reschedule accordingly. MEDICATIONS: Many patients have questions or concerns about their medications once they are home. Were you prescribed any new medications? No Were you told to hold any medications? No Were any of your medications discontinued? No Do you have any questions about getting or taking your medications? No Your discharge instructions/After visit Summary (AVS) are important in guiding you through the recovery process. Is there anything I might help you understand? No Do you have all the necessary equipment and supplies at home? Yes Medical records from recent hospitalization: Ge records from [facility] Allergies As of Date: 05/14/2024 Noted Allergy Reaction AXID (NIZATIDINE) 07/31/2005 16 - Unknown ENTEX PSE (PSEUDOEPHEDRINE-GUAIFE*07/31/2005 16 - Unknown LISINOPRIL 11/22/2010 3 - Cough Date Reviewed: 04/10/2024 Reviewed by: Trevin Bermeo MA - Fully Assessed Reason for Visit: Transition Of Care [4074] Prescriptions as of 05/15/2024 - amLODIPine (NORVASC) 5 mg tablet Take 1 tablet by mouth once daily. - calcium acetate,phosphat bind, (PHOSLO) 667 mg capsule - clopidogrel (PLAVIX) 75 mg tablet Take 1 tablet by mouth every afternoon. - atorvastatin (LIPITOR) 40 mg tablet Take 1 tablet by mouth once daily. For cholesterol. - calcitriol (ROCALTROL) 0.25 mcg capsule Take 1 capsule by mouth two times a day. - calcium citrate (CALCITRATE) 200 mg (950 mg) tab Take 1 tablet by mouth four times daily. - ibuprofen (MOTRIN) 200 mg tablet Take 1-2 tablets by mouth every 4 hours as needed for pain. - acetaminophen (TYLENOL EXTRA STRENGTH) 500 mg tablet Take 2 tablets by mouth every 6 hours as needed for pain. - furosemide (LASIX) 80 mg tablet 1 tablet once daily. Per Cardio, Marc - metoprolol tartrate, short acting, (LOPRESSOR) 50 mg tablet 0.5 tablets twice daily. - pantoprazole DR (PROTONIX) 40 mg tablet Take 40 mg by mouth once daily. Take one tablet daily - nitroglycerin sublingual (NITROSTAT) 0.4 mg SL tablet Dissolve 1 tablet under the tongue every 5 minutes as needed. - aspirin, enteric coated (ASPIRIN, ENTERIC COATED) 81 mg EC tablet Take 1 tablet by mouth once daily. Problem List As Of Date 05/14/2024 Noted Resolved Essential hypertension, benign [I10] Personal history of colonic polyps [Z86.0100] GERD without esophagitis [K21.9] Unspecified transient cerebral ischemia [G45.9] 01/15/2018 Ulcer of esophagus without bleeding [K22.10] 10/15/2013 BPH with obstruction/lower urinary tract sympto*08/01/2005 Esophagitis, unspecified [K20.90] 10/19/2008 10/15/2013 Benign essential tremor [G25.0] 07/03/2010 Mixed hyperlipidemia [E78.2] 09/03/2013 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 deficiency*10/15/2013 03/04/2017 Vitamin D deficiency [E55.9] 10/15/2013 Anemia of chronic disease [D63.8] 10/15/2013 Parathyroid adenoma [D35.1] 10/15/2013 12/24/2014 Primary hyperparathyroidism (HCC) [E21.0] 03/04/2017 Parathyroid adenoma [D35.1] 03/04/2017 06/03/2020 CKD (chronic kidney disease) stage 4, GFR 15-29*03/04/2017 Coronary artery disease involving [place]*03/06/2018 History of non-ST elevation myocardial infarcti*03/06/2018 Elevated PSA [R97.20] 03/11/2019 Medicare annual wellness visit, subsequent [Z00*12/26/2020 Family history of malignant neoplasm of gastroi* Ex-smoker [Z87.891] 12/26/2020 History of COVID-19 [Z86.16] 05/29/2021 Mild aortic stenosis [I35.0] 11/27/2021 Living will on file [OZP1602] 12/15/2021 Advance directive discussed with patient [Z71.8*12/15/2021 Chronic diastolic congestive heart failure (HCC*12/15/2021 Medication management [Z79.899] 02/22/2022 ESRD (end stage renal disease) on dialysis (HCC*07/11/2023 Elevated alkaline phosphatase level [R74.8] 09/24/2023 Encounter Status:Closed by TRINY PAZ on 05/15/24[facility]10-01-2024 Discharge summary Date of Service 05/12/2024 Discharge Diagnosis NSTEMI s/p PCI with LAQUITA to ostial LCx Concerns for gross hematuria-improved Moderate aortic stenosis Hematuria likely secondary to passage of kidney stone Normocytic anemia secondary to ESRD ESRD on hemodialysis F Hospital Course Patient is 84 years old male admitted to CCU with chest pain on 05/08/2024. He was a transfer from [facility]. The pain was similar to prior cardiac events and the improvement was notedwith nitro. Episode was also completed with vomiting. He had persistent chronic cough but no shortness of breath. Past medical history significant for CAD in [place] artery s/p PCI of LCx in December 03 followed by in-stent restenosis of Lcx in February 2024 with PCI,(hx of Circ stent in 2014 , Aortic stenosis, ESRD onhemodialysis MWF, HFmrEF, dyslipidemia, GERD. Last echo done on 02/25/2024 showed ejection fraction of 43%, grade 2 diastolic dysfunction, moderate aortic stenosis with peak velocity of 2.8 m/s. In the ER patient was vitally stable with elevated bun of 62 and creatinine of 7.31. His troponins were elevated at 54 and 86. His EKG was unremarkable for ACS. Chest x-ray showed cardiomegaly with mild central vascular congestion. Patient was further admitted to CCU for evaluation and management of NSTEMI. Patient's home medication of aspirin, Plavix, atorvastatin, metoprolol were resumed and patient wasput on heparin by weight for anticoagulation. Patient hospitalization was complicated with an episode of hematuria. Urology was consulted and CT scan of the abdomen and pelvis were done to evaluate any causes of of bleeding. CT scans were positive for few nonobstructing nephrolithiasis bilaterally,and the working theory was that patient passed a kidney stone that may have resulted did in a smallepisode of hematuria. No similar episodes were experienced throughout his admissions. Patient got his left heart catheterization done on 05/11/2024 which showed restenosis of the LCx deepthi drug-eluting stent was placed. Subsequently patient was continued on Plavix and aspirin postprocedure. Nephrology was consulted regarding patient's ESRD and he received 2 sessions of hemodialysis throughout his admission, one of which was done post left heart catheterization. On 05/12/2024 patientwas vitally stable, asymptomatic and was discharged with the following instructions: 1 please continue current home medications 2 please follow-up with your post anesthesia nurse within 4 weeks 3 please follow-up with Dr. Titus (urologist ) within 4 weeks 4 please follow-up with your disability counselor and get your dialysis as usual 05/11/2024 cardiac cath: 1. 1st lesion: Stent placement was performed. A 4 mm (D) x 12 mm (L), Synergy XD stent was used. The stent was advanced across the lesion and deployed with a single inflation and a maximum pressure of 16 peyton. 2. Left circumflex: Proximal vessel lesion: The diagnostic study demonstrated a 95% stenosis. Stentplacement was performed, with balloon angioplasty, resulting in an excellent angiographic appearance (see 1st lesion). Following intervention, there is a residual 0% stenosis with YULISA grade 3 flow (brisk flow). 3. Right coronary: Mid-vessel lesion: There is an 80% stenosis. 05/08/2024 CT abdomen pelvis Findings: Enlarged prostate with mild surrounding haziness, suggestive of prostatitis. Correlate with urinalysis. Bilateral renal cysts, some of which are too small to characterize, some of which are hyperdense, and some of which are indeterminate density; correlate with prior imaging for stability and consider nonemergent MRI. A few nonobstructing nephrolithiasis bilaterally. No hydronephrosis or hydroureter. Allergies lisinopril Cough Procedures Cardiac cath Consults Consult to Physician - Ordered -- 05/08/24 6:47:00 EDTSELINA BHAVNISH MD, Routine, For dialysis Consult to Physician - Ordered -- 05/08/24 14:09:00 EDT, JULIO COON MD, Routine, Concern for hematuria. Tentative plan to cath patient. Imaging Results and Diagnostics CT Abdomen/Pelvis w/o Contrast Result Date: May 08, 2024 Verified By: BUD PRAKASH MD CLINICAL STATEMENT: IMPRESSION: Enlarged prostate with mild surrounding haziness, suggestive of prostatitis.Correlate with urinalysis. Bilateral renal cysts, some of which are too small to characterize, some ofwhich arehyperdense, and some of which are indeterminate density; correlatewith prior imaging for stability and consider nonemergent MRI. A few nonobstructing nephrolithiasis bilaterally. No hydronephrosis orhydroureter. Physical Exam Vitals and Measurements T: 36.6 C (Oral) TMIN: 36.5 C (Oral) TMAX: 36.8 C (Oral) HR: 63 (Monitored) RR: 18 BP: 124/50 SpO2:94% Weight Dosing Weight: 76.2 kg (05/11/24) Dosing Weight: 79.6 kg (05/11/24) General Appearance: Appears to be stable and in no acute distress Head: Atraumatic and normocephalic EENT: EOMI, PERRLA, no oropharyngeal erythema, no tonsillar exudates, no conjunctival injection. sclera anicteric. Neck: No thyromegaly, no cervical lymphadenopathy, trachea midline Cardiac: S1 and S2 normal. RRR. Presence of crescendo-decrescendo murmur in right second space. Rubs, or gallops. No JVD. No hepatojugular reflex. Lungs: Good air entry bilaterally. No increased work for breathing. No wheezes, rhonchi, or rales. Abdomen: Soft, nontender, nondistended. Normoactive bowel sounds. No rebound or guarding. Negative Rodriguez's sign. No hepatosplenomegaly. Musculoskeletal: Full range of motion upper and lower extremities. No CVA tenderness. Extremities: No lower extremity pitting edema. 2+ radial and pedal pulses bilaterally. Skin: No abrasions, scars, or hematomas on visible skin. No cyanosis. No purulent discharge. Psychiatric: alert and oriented, well groomed, euthymic. cooperative Pending Labs and Studies None Code Status Code Status - Ordered -- 05/08/24 6:41:00 EDT, Full Code, Constant Order Admission Date 05/08/2024 Discharge Date 05/12/2024 Patient Instructions You were admitted to the hospital for evaluation of chest pain. Restenosis of LCx was found upon doing left heart catheterization. A drug-eluting stent was inserted in ostial LCx. You are vitally stable and have no symptoms. You will be discharged on 05/12/2024. Please see following instructions. 1 please continue current home medications 2 please follow-up with your post anesthesia nurse within 4 weeks 3 please follow-up with Dr. Titus (urologist ) within 4 weeks 4 please follow-up with your disability counselor and get your dialysis as usual Thank you for involving us in your care Medications Unchanged aspirin (aspirin 81 mg oral delayed release tablet)1 tab(s) by mouth every day for 90 Days. Refills: 4. atorvastatin (atorvastatin 40 mg oral tablet)1 tab(s) by mouth daily at bedtime for 90 Days. Refills: 4. calcium acetate (calcium acetate 667 mg oral capsule)2 cap by mouth three (3) times a day before meals. clopidogrel (Plavix 75 mg oral tablet)1 tab(s) by mouth once a day for 90 Days. Refills: 4. furosemide (Lasix 40 mg oral tablet)1 tab(s) by mouth once a day. Refills: 3. isosorbide mononitrate (isosorbide mononitrate 30 mg oral tablet, extended release)1 tab(s) by mouth once a day (in the morning). Refills: 2. metoprolol (metoprolol succinate 25 mg oral TABLET extended release)2 tab(s) by mouth once a day. Do not crush or chew (controlled release). nitroGLYcerin (nitroglycerin 0.4 mg sublingual tablet)1 tab(s) under the tongue every 5 minutes as needed for chest pain. Refills: 1. pantoprazole (pantoprazole 40 mg oral enteric coated tablet)1 tab(s) by mouth once a day. Refills: 2. Follow Up Follow Up with JULIO LICEA MD When:Within 1-2 days Where:[address] [place] [address]- Follow Up with [facility] Where:[address] [address]- Additional Information: The Cardiac rehab department will call you to schedule you for Phase 2. If you have any questions please call us at [phone]. Thank you. Follow Up with CLAIRE ANDINO MD When:06/05/2024 02:15 PM EDT Where:[address] [facility] [address] [place], [place] [address]- [phone] Follow Up with TAB BROWN DO, [facility] When:In 4 weeks 06/09/2024 EDT Where:[address] [place] [address] [phone] Follow Up Appointments No qualifying data available. Follow Up Labs/Studies Discharge Labs No Follow-up Labs Discharge Studies No Follow-up Studies Discharge Diet Discharge Diet - Ordered -- Sodium limit: Low, No changes were made to your diet during your hospital stay. Please resume your pre hospitalization diet on discharge., 05/12/24 15:02:00 EDT Discharge Activity Discharge Activity - Ordered -- NO activity restrictions, 05/12/24 15:02:00 EDT Condition on Discharge Fair Discharge Disposition Home Information Provided To Patient and nurse Digitally Signed by LEONEL HERNANDEZ MD on 05/12/2024 04:42 PM Digitally Signed by LEONEL HERNANDEZ MD on 05/12/2024 04:54 PM Digitally Signed by LEONEL HERNANDEZ MD on 05/12/2024 04:55 PM [id number] Discharge instructions Patient Education 05/12/2024 16:09:40 3- Heart Cath/PCI groin (05/2018) (CUSTOM) HEART CATHETERIZATION/PCI (groin) Discharge Instructions DIET INSTRUCTIONS Drink plenty of fluids for the next 48 hours to help your kidneys flush the heart cath dye out of your system ACTIVITIES May go up and down stairs CAREFULLY Do not drive car FOR 24 HOURS No heavy lifting GREATER THAN 10 POUNDS or pushing or straining FOR 2 DAYS Someone must stay with you at home after the procedure until the morning. BATHING/SHOWERING May tub bathe in 1 week May shower tomorrow WOUND CARE You will go home with a Band-Aid over your heart cath site. Keep a Band-Aid on for the next 24 hours and then leave open to air. Some degree of bruising and tenderness is normal around the heart cath site. It will take a while for any bruising to completely resolve. Keep your site clean and dry. You need to report the following to your post anesthesia nurse: Any draining or oozing from the site Any swelling at the site Any increased pain or tenderness at the site Any numbness in your leg where the procedure was done Any signs of infection IMPORTANT! CALL 911 FOR ANY BLEEDING OR SWELLING AT THE PROCEDURE SITE If there is any large amount of bleeding, you or someone else need to apply direct pressure to the site (just like the nurse did in the heart lab after your procedure). It is very important that you hold constant pressure. Do not release the pressure to check if the bleeding has stopped. You then need to be transported to the nearest emergency room. WATCH FOR SIGNS OF INFECTION (Usually appears 36-48 hours after surgery) A temperature above 100.5 Redness or swelling Increased pain Foul odor or drainage If you have any questions, please call your doctor at the number listed on your follow up instructions. Follow all instructions given to you by your physician Document Released: 07/29/2006 Document Revised: 07/15/2013 Document Reviewed: 07/30/2014 [facility] Patient Information 2015 [employer]. This information is not intended to replace advicegiven to you by your health care provider. Make sure you discuss any questions you have with your health care provider. Follow Up Care 05/08/2024 04:14:40 With:JULIO LICEA MD Address: [address] [place] [address]- When:1-2 days With:CLAIRE ANDINO MD Address: [address] [place] [address] [address] [place], [place] [address]- [phone] When:06/05/2024 14:15:00 With:TAB BROWN [facility] Address: [address] [place] [address] [place] [address] [phone] When:06/09/2024 With:[facility] Address: [address] [address]- When: Unknown Comments:The Cardiac rehab department will call you to schedule you for Phase 2. If you have any questions please call us at [phone]. Thank you. [facility] 10-01-2024 Discharge summary Date of Service 05/12/2024 Discharge Diagnosis NSTEMI s/p PCI with LAQUITA to ostial LCx Concerns for gross hematuria-improved Moderate aortic stenosis Hematuria likely secondary to passage of kidney stone Normocytic anemia secondary to ESRD ESRD on hemodialysis [facility] Hospital Course Patient is 84 years old male admitted to CCU with chest pain on 05/08/2024. He was a transfer from [facility]. The pain was similar to prior cardiac events and the improvement was notedwith nitro. Episode was also completed with vomiting. He had persistent chronic cough but no shortness of breath. Past medical history significant for CAD in [place] artery s/p PCI of LCx in December 03 followed by in-stent restenosis of Lcx in February 2024 with PCI,(hx of Circ stent in 2014 , Aortic stenosis, ESRD onhemodialysis MWF, HFmrEF, dyslipidemia, GERD. Last echo done on 02/25/2024 showed ejection fraction of 43%, grade 2 diastolic dysfunction, moderate aortic stenosis with peak velocity of 2.8 m/s. In the ER patient was vitally stable with elevated bun of 62 and creatinine of 7.31. His troponins were elevated at 54 and 86. His EKG was unremarkable for ACS. Chest x-ray showed cardiomegaly with mild central vascular congestion. Patient was further admitted to CCU for evaluation and management of NSTEMI. Patient's home medication of aspirin, Plavix, atorvastatin, metoprolol were resumed and patient wasput on heparin by weight for anticoagulation. Patient hospitalization was complicated with an episode of hematuria. Urology was consulted and CT scan of the abdomen and pelvis were done to evaluate any causes of of bleeding. CT scans were positive for few nonobstructing nephrolithiasis bilaterally,and the working theory was that patient passed a kidney stone that may have resulted did in a smallepisode of hematuria. No similar episodes were experienced throughout his admissions. Patient got his left heart catheterization done on 05/11/2024 which showed restenosis of the LCx deepthi drug-eluting stent was placed. Subsequently patient was continued on Plavix and aspirin postprocedure. Nephrology was consulted regarding patient's ESRD and he received 2 sessions of hemodialysis throughout his admission, one of which was done post left heart catheterization. On 05/12/2024 patientwas vitally stable, asymptomatic and was discharged with the following instructions: 1 please continue current home medications 2 please follow-up with your post anesthesia nurse within 4 weeks 3 please follow-up with Dr. Titus (urologist ) within 4 weeks 4 please follow-up with your disability counselor and get your dialysis as usual 05/11/2024 cardiac cath: 1. 1st lesion: Stent placement was performed. A 4 mm (D) x 12 mm (L), Synergy XD stent was used. The stent was advanced across the lesion and deployed with a single inflation and a maximum pressure of 16 peyton. 2. Left circumflex: Proximal vessel lesion: The diagnostic study demonstrated a 95% stenosis. Stentplacement was performed, with balloon angioplasty, resulting in an excellent angiographic appearance (see 1st lesion). Following intervention, there is a residual 0% stenosis with YULISA grade 3 flow (brisk flow). 3. Right coronary: Mid-vessel lesion: There is an 80% stenosis. 05/08/2024 CT abdomen pelvis Findings: Enlarged prostate with mild surrounding haziness, suggestive of prostatitis. Correlate with urinalysis. Bilateral renal cysts, some of which are too small to characterize, some of which are hyperdense, and some of which are indeterminate density; correlate with prior imaging for stability and consider nonemergent MRI. A few nonobstructing nephrolithiasis bilaterally. No hydronephrosis or hydroureter. Allergies lisinopril Cough Procedures Cardiac cath Consults Consult to Physician - Ordered -- 05/08/24 6:47:00 EDTSELINA BHAVNISH MD, Routine, For dialysis Consult to Physician - Ordered -- 05/08/24 14:09:00 EDT, JULIO COON MD, Routine, Concern for hematuria. Tentative plan to cath patient. Imaging Results and Diagnostics CT Abdomen/Pelvis w/o Contrast Result Date: May 08, 2024 Verified By: BUD PRAKASH MD CLINICAL STATEMENT: IMPRESSION: Enlarged prostate with mild surrounding haziness, suggestive of prostatitis.Correlate with urinalysis. Bilateral renal cysts, some of which are too small to characterize, some ofwhich arehyperdense, and some of which are indeterminate density; correlatewith prior imaging for stability and consider nonemergent MRI. A few nonobstructing nephrolithiasis bilaterally. No hydronephrosis orhydroureter. Physical Exam Vitals and Measurements T: 36.6 C (Oral) TMIN: 36.5 C (Oral) TMAX: 36.8 C (Oral) HR: 63 (Monitored) RR: 18 BP: 124/50 SpO2:94% Weight Dosing Weight: 76.2 kg (05/11/24) Dosing Weight: 79.6 kg (05/11/24) General Appearance: Appears to be stable and in no acute distress Head: Atraumatic and normocephalic EENT: EOMI, PERRLA, no oropharyngeal erythema, no tonsillar exudates, no conjunctival injection. sclera anicteric. Neck: No thyromegaly, no cervical lymphadenopathy, trachea midline Cardiac: S1 and S2 normal. RRR. Presence of crescendo-decrescendo murmur in right second space. Rubs, or gallops. No JVD. No hepatojugular reflex. Lungs: Good air entry bilaterally. No increased work for breathing. No wheezes, rhonchi, or rales. Abdomen: Soft, nontender, nondistended. Normoactive bowel sounds. No rebound or guarding. Negative Rodriguez's sign. No hepatosplenomegaly. Musculoskeletal: Full range of motion upper and lower extremities. No CVA tenderness. Extremities: No lower extremity pitting edema. 2+ radial and pedal pulses bilaterally. Skin: No abrasions, scars, or hematomas on visible skin. No cyanosis. No purulent discharge. Psychiatric: alert and oriented, well groomed, euthymic. cooperative Pending Labs and Studies None Code Status Code Status - Ordered -- 05/08/24 6:41:00 EDT, Full Code, Constant Order Admission Date 05/08/2024 Discharge Date 05/12/2024 Patient Instructions You were admitted to the hospital for evaluation of chest pain. Restenosis of LCx was found upon doing left heart catheterization. A drug-eluting stent was inserted in ostial LCx. You are vitally stable and have no symptoms. You will be discharged on 05/12/2024. Please see following instructions. 1 please continue current home medications 2 please follow-up with your post anesthesia nurse within 4 weeks 3 please follow-up with Dr. Titus (urologist ) within 4 weeks 4 please follow-up with your disability counselor and get your dialysis as usual Thank you for involving us in your care Medications Unchanged aspirin (aspirin 81 mg oral delayed release tablet)1 tab(s) by mouth every day for 90 Days. Refills: 4. atorvastatin (atorvastatin 40 mg oral tablet)1 tab(s) by mouth daily at bedtime for 90 Days. Refills: 4. calcium acetate (calcium acetate 667 mg oral capsule)2 cap by mouth three (3) times a day before meals. clopidogrel (Plavix 75 mg oral tablet)1 tab(s) by mouth once a day for 90 Days. Refills: 4. furosemide (Lasix 40 mg oral tablet)1 tab(s) by mouth once a day. Refills: 3. isosorbide mononitrate (isosorbide mononitrate 30 mg oral tablet, extended release)1 tab(s) by mouth once a day (in the morning). Refills: 2. metoprolol (metoprolol succinate 25 mg oral TABLET extended release)2 tab(s) by mouth once a day. Do not crush or chew (controlled release). nitroGLYcerin (nitroglycerin 0.4 mg sublingual tablet)1 tab(s) under the tongue every 5 minutes as needed for chest pain. Refills: 1. pantoprazole (pantoprazole 40 mg oral enteric coated tablet)1 tab(s) by mouth once a day. Refills: 2. Follow Up Follow Up with JULIO LICEA MD When:Within 1-2 days Where:[address] [place] [address]- Follow Up with [facility] Where:[address] [address]- Additional Information: The Cardiac rehab department will call you to schedule you for Phase 2. If you have any questions please call us at [phone]. Thank you. Follow Up with CLAIRE ANDNIO MD When:06/05/2024 02:15 PM EDT Where:[address] [facility] [address] [place], [place] [address]- [phone] Follow Up with TAB BROWN DO [facility] When:In 4 weeks 06/09/2024 EDT Where:[address] [facility] [place] [address]- [phone] Follow Up Appointments No qualifying data available. Follow Up Labs/Studies Discharge Labs No Follow-up Labs Discharge Studies No Follow-up Studies Discharge Diet Discharge Diet - Ordered -- Sodium limit: Low, No changes were made to your diet during your hospital stay. Please resume your pre hospitalization diet on discharge., 05/12/24 15:02:00 EDT Discharge Activity Discharge Activity - Ordered -- NO activity restrictions, 05/12/24 15:02:00 EDT Condition on Discharge Fair Discharge Disposition Home Information Provided To Patient and nurse Digitally Signed by LEONEL HERNANDEZ MD on 05/12/2024 04:42 PM Digitally Signed by LEONEL HERNANDEZ MD on 05/12/2024 04:54 PM Digitally Signed by LEONEL HERNANDEZ MD on 05/12/2024 04:55 PM [facility] [id number] Note Discharge Instructions Thank you for allowing [facility] to assist you with your healthcare needs. The following is importantdischarge information regarding your hospital visit. Your Care Team JULIO LICEA MD Your Diagnosis Gross hematuria What to do next Instructions From Your Doctor You were admitted to the hospital for evaluation of chest pain. Restenosis of LCx was found upon doing left heart catheterization. A drug-eluting stent was inserted in ostial LCx. You are vitally stable and have no symptoms. You will be discharged on 05/12/2024. Please see following instructions. 1 please continue current home medications 2 please follow-up with your post anesthesia nurse within 4 weeks 3 please follow-up with Dr. Titus (urologist ) within 4 weeks 4 please follow-up with your disability counselor and get your dialysis as usual Thank you for involving us in your care Scheduled Follow-Up Appointments Appointment Type When Where Contact Information StatusCV OV 06/05/2024 02:15 PM EDT [facility] Confirmed Follow Up Appointments Follow Up with JULIO LICEA MD When:Within 1-2 days Where:[address] [place] [address]- Follow Up with [facility] Where:[facility] [address] [place] [address]- Additional Information: The Cardiac rehab department will call you to schedule you for Phase 2. If you have any questions please call us at [phone]. Thank you. Follow Up with CLAIRE ANDINO MD When:06/05/2024 02:15 PM EDT Where:[address] [facility] [address] [place] [address]- [phone] Follow Up with TAB BROWN DO, [facility] When:In 4 weeks 06/09/2024 EDT Where:[address] [facility] [place] [address]- [phone] The Following Activity and Diet Have Been Ordered for You Discharge Activity - Ordered -- NO activity restrictions, 05/12/24 15:02:00 EDT Discharge Diet - Ordered -- Sodium limit: Low, No changes were made to your diet during your hospital stay. Please resume your pre hospitalization diet on discharge., 05/12/24 15:02:00 EDT The Following Equipment Has Been Ordered for You No qualifying data available. The Following Treatments Have Been Ordered for You Discharge Labs No qualifying data available. Discharge Radiology No qualifying data available. Other Therapies No qualifying data available. Post Acute Orders No qualifying data available. Someone Will Contact You Regarding These Home Health Referrals No home referrals have been ordered for you. No one will call you. Allergies lisinopril Cough Medications Please ask your primary doctor or pharmacist before taking any other medication not listed, including over the counter drugs, herbal medications, vitamins and or supplements as they may interact withyour home medications. What How Much When Instructions Last Dose Unchanged aspirin (aspirin 81 mg oral delayed release tablet) 1 tab(s) by mouth Every day Duration: 90 Days Unchanged atorvastatin (atorvastatin 40 mg oral tablet) 1 tab(s) by mouth Daily at bedtime Duration: 90 Days Unchanged calcium acetate (calcium acetate 667 mg oral capsule) 2 cap by mouth Three (3) times a day before meals Unchanged clopidogrel (Plavix 75 mg oral tablet) 1 tab(s) by mouth Once a day Duration: 90 Days Unchanged furosemide (Lasix 40 mg oral tablet) 1 tab(s) by mouth Once a day Unchanged isosorbide mononitrate (isosorbide mononitrate 30 mg oral tablet, extended release) 1 tab(s) by mouth Once a day (in the morning) Unchanged metoprolol (metoprolol succinate 25 mg oral TABLET extended release) 2 tab(s) by mouth Once a day Do not crush or chew (controlled release) Unchanged nitroGLYcerin (nitroglycerin 0.4 mg sublingual tablet) 1 tab(s) under the tongue Every 5 minutes as needed for for chest pain Unchanged pantoprazole (pantoprazole 40 mg oral enteric coated tablet) 1 tab(s) by mouth Once a day Please take this list to your next doctor s visit. Bring all medications you take, including over the counter medications, herbals and other supplements with you to your doctor s visit. Patients and families are reminded to discard old lists and to update any records with all medication providers or retail pharmacies. Education Materials HEART CATHETERIZATION/PCI (groin) Discharge Instructions DIET INSTRUCTIONS Drink plenty of fluids for the next 48 hours to help your kidneys flush the heart cath dye out of your system ACTIVITIES May go up and down stairs CAREFULLY Do not drive car FOR 24 HOURS No heavy lifting GREATER THAN 10 POUNDS or pushing or straining FOR 2 DAYS Someone must stay with you at home after the procedure until the morning. BATHING/SHOWERING May tub bathe in 1 week May shower tomorrow WOUND CARE You will go home with a Band-Aid over your heart cath site. Keep a Band-Aid on for the next 24 hours and then leave open to air. Some degree of bruising and tenderness is normal around the heart cath site. It will take a while for any bruising to completely resolve. Keep your site clean and dry. You need to report the following to your post anesthesia nurse: Any draining or oozing from the site Any swelling at the site Any increased pain or tenderness at the site Any numbness in your leg where the procedure was done Any signs of infection IMPORTANT! CALL 911 FOR ANY BLEEDING OR SWELLING AT THE PROCEDURE SITE If there is any large amount of bleeding, you or someone else need to apply direct pressure to the site (just like the nurse did in the heart lab after your procedure). It is very important that you hold constant pressure. Do not release the pressure to check if the bleeding has stopped. You then need to be transported to the nearest emergency room. WATCH FOR SIGNS OF INFECTION (Usually appears 36-48 hours after surgery) A temperature above 100.5 Redness or swelling Increased pain Foul odor or drainage If you have any questions, please call your doctor at the number listed on your follow up instructions. Follow all instructions given to you by your physician Document Released: 07/29/2006 Document Revised: 07/15/2013 Document Reviewed: 07/30/2014 [facility] Patient Information 2015 [employer]. This information is not intended to replace advicegiven to you by your health care provider. Make sure you discuss any questions you have with your health care provider. Additional Information VACCINATE! IT SAVES LIVES! Members of the community who have not yet received the COVID-19 vaccine and would like to receive it can visit one of [facility] vaccine clinics. There are many vaccine clinic locations within the [facility]. For locations and available times, please visit https://[email or web address].[place].gov/. It is important to note that some COVID mobile vaccine clinics are held outdoors and may be canceled in rainy or stormy conditions. To learn more about pediatric vaccinations (ages 5-11), we invite you to visit the [facility] webpage. [email or web address]/[email or web address]-[email or web address] [email or web address] learn more about the COVID-19 vaccine, we invite you to visit the CDC website for a list of frequently asked questions.https://www.cdc.gov/coronavirus/2019-ncov/vaccines/faq.html [facility] Patient Portal Access Instructions: Stay connected with your healthcare team and access your personal medical information anytime with the [facility] Patient Portal. Please follow the directions below to create your [facility] account: 1.Access the email account you provided upon registration to the hospital/physician office.2.Look for an invitation email from [facility].3.Open the email and access the invitation link: AcceptInvitation to [facility].4.Fill in the required wilkinson to create your account. To access your account, visit [facility] | [email or web address]. Click the blue button labeled Access Patient Portal and then log in with the username and password that you created in the steps above. You will be able to view your test results, lab results, a summary of your visits, upcoming appointments and more. There is also a convenient messaging option where you can send secure messages to your p rovider. In addition, you will have the ability to download any documents or summaries to your computer and/or send the information securely to a physician. Remember that your healthcare information is confidential, so carefully consider who you will allowto register on the [facility] Patient Portal for access to your information. You can also access the [facility] Patient Portal on the [facility] samanta. Simply click on Patient Portal and then log into your account. If you would like to receive a full copy of your medical records, please contact the [facility] Medical Records Department by calling [phone], Saturday through Saturday between 8 a.m. and 4:30 p.m. HOW TO SAFELY DISPOSE OF PRESCRIPTION MEDICATIONS Please use one of the following methods to safely dispose of your unused medications. 1.Use a drug disposal kit: the drug disposal pouch allows you to safely discard your old and unuseddrugs. Ask your nurse to give you one when you are discharged.2.Visit a local take-back location: Many local pharmacies and police departments have programs that collect old and unwanted prescriptiondrugs. Call your local pharmacy or go to http://Evo.com/8K8Xj3j to find one close to you.3.Make use of household items: Use cat litter or old coffee grounds to dispose medications if other options arenot available. Mix your drugs with these household products, seal them in an airtight container andthrow it into the garbage. Call [facility]: [phone] to be sure your drugs can be disposed of in this way. Some medicines may require a different approach.4.Never flush your medications down the toilet. IF YOU HAVE BEEN PRESCRIBED AN OPIOID FOR PAIN If you have been prescribed an opioid (such as hydrocodone, oxycodone or morphine), it is critical to understand the possible side effects and risks of opioid pain medications. Even when taken as directed, opioids can have several side effects including: Tolerance, meaning you might need to take more of a medication for the same pain relief. Nausea, vomiting and/or constipation. Sleepiness, dizziness, dry mouth, confusion, depression or itching. Physical dependence, meaning you have withdrawal symptoms when a medication is stopped, can develop within a few days. KNOW YOUR RESPONSIBILITIES It is important to know exactly how much and how often to take the opioid pain medications you are prescribed. Never take opioids in higher amounts or more often than prescribed. Do not combine opioids with alcohol or other drugs that cause drowsiness, such as benzodiazepines, also known as benzos, including diazepam and alprazolam, muscle relaxants or sleep aids. Never sell or share prescription opioids. This is illegal. Store opioids in a secure place and out of reach of others (including children, family, friends and visitors). The last page of this document has been signed and retained as a CHART COPY. Signatures Patient Education Materials 3- Heart Cath/PCI groin (05/2018) (CUSTOM) Medication Leaflets My discharge plan and instructions have been reviewed and explained to me and IROGER LUIS MANUEL Guzman understand my current condition and have read and understand these discharge instructions. I have received a written copy of the plan/instructions. If I have questions, I am aware that I should contact my doctor. 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: Date/Time: Relationship to Patient: Witness Name/Signature: Date/Time: [facility] [id number] Nephrology Progress note Date of Service 05-12 Objective Vitals and Measurements T: 36.5 C (Oral) TMIN: 36.0 C (Skin) TMAX: 36.8 C (Oral) HR: 71 (Monitored) RR: 18 BP: 114/45 SpO2:94% WT: 76.2 kg Intake and Output 7AM Yesterday to 7AM Today Intake and Output (Last 24 hours) Intake Oral Intake 1230.00 Output Urine Voided 50.00 Hemodialysis 2300.00 Stool Count 0.00 Urine Count 2.00 Total Summary Total Intake 1230.00 Total Output 2350.00 Fluid Balance -1120.00 Physical Exam General: No distress currently HEENT: Mucosa was moist, sclera anicteric, extraocular muscles intact, JVD present Lungs: Clear bilaterally with no crackles wheezes or rhonchi Heart: Regular with no murmurs rubs or gallops Abdomen: Positive bowel sounds, soft, no palpable masses Access: Right forearm AV fistula with positive bruit and thrill Extremities: No edema, pulses 1+ in dorsalis pedis arteries Skin: No rashes, normal turgor AVF: thrill+ Weight Dosing Weight: 76.2 kg (05/11/24) Dosing Weight: 79.6 kg (05/11/24) Medications Medications (17) Active Scheduled: (8) aspirin 81 mg EC 81 mg 1 tab(s), Oral, Daily atorvastatin 40 mg tablet 40 mg 1 tab(s), Oral, qHS calcium acetate 667 mg capsule 1,334 mg 2 cap(s), Oral, TIDAC clopidogrel 75 mg Tablet 75 mg 1 tab(s), Oral, qDay isosorbide mononitrate 30 mg ER tablet 30 mg 1 tab(s), Oral, qAM metoprolol succinate 50 mg ER tablet 50 mg 1 tab(s), Oral, qDay No metformin for 48 hrs post contrast 1 EA, Miscellaneous, Unscheduled pantoprazole 40 mg EC tablet 40 mg 1 tab(s), Oral, qDay Continuous: (0) PRN: (9) dextrose 50% Solution Disp syringe 50 mL 12.5 gram(s) 25 mL, IV Push, AsDirected magnesium sulfate 4 gram(s)/100mL PMX 4 g 100 mL, IV Piggyback, AsDirected magnesium sulfate 50% (500mg/mL) 6 g 12 mL, IV Piggyback, AsDirected magnesium sulfate PMX 2 g 50 mL, IV Piggyback, AsDirected nitroglycerin 0.4 mg Tablet (25/btl) 0.4 mg 1 tab(s), Sublingual, q5min potassium chloride (PMX) 20 mEq/100 mL 20 mEq 100 mL, IV Piggyback, AsDirected potassium chloride 20 mEq ER tablet 20 mEq 1 tab(s), Oral, AsDirected potassium chloride 20 mEq ER tablet 40 mEq 2 tab(s), Oral, AsDirected potassium chloride 20 mEq ER tablet 40 mEq 2 tab(s), Oral, AsDirected Lab Results 05/12 05:47 WBC: 15.0 H Hgb: 10.1 L Hct: 30.6 L Platelet: 188 Glucose Level: 90 Sodium Level: 136 Potassium Level: 4.6 BUN: 36.0 H Creatinine Lvl (s): 5.48 H 05/11 11:49 Creatinine Lvl (s): 9.08 H 05/11 05:08 WBC: 6.3 Hgb: 10.0 L Hct: 29.5 L Platelet: 173 Neutrophil %: 61.4 Glucose Level: 91 Sodium Level: 136 Potassium Level: 5.1 H BUN: 79.0 H Creatinine Lvl (s): 9.02 H EKG Electrocardiogram (EKG) - InProcess -- 05/08/24 17:50:00 EDT Electrocardiogram (EKG) - Ordered -- 05/11/24 10:00:00 EDT, Post-procedure, Complete by Nursing Electrocardiogram (EKG) - InProcess -- 05/11/24 17:26:00 EDT Assessment/Plan Gross hematuria Time Spent 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 Hemodynamically reasonable. Will receive EPO on dialysis. No plan for dialysis today. [1] Progress Note; JEAN-PIERRE HUITRON MD 05/11/2024 08:23 EDT Digitally Signed by JEAN-PIERRE HUITRON MD on 05/12/2024 07:50 PM [facility] [id number] Cardiology Progress note Date of Service 05/11/2024 Subjective Patient was seen and examined at bedside. He underwent a left heart cath procedure today and was inno acute distress. A drug-eluting stent was placed to his left ostial circumflex. He is scheduled for dialysis today. He had no concerns. Objective Vitals and Measurements T: 36.0 C (Skin) TMIN: 36.0 C (Skin) TMAX: 36.7 C (Oral) HR: 63 (Monitored) RR: 18 BP: 142/57 SpO2:94% WT: 79.6 kg Intake and Output 7AM Yesterday to 7AM Today Intake and Output (Last 24 hours) Intake Oral Intake 450.00 Output Urine Voided 600.00 Total Summary Total Intake 450.00 Total Output 600.00 Fluid Balance -150.00 Physical Exam General Appearance: Appears to be stable and in no acute distress Head: Atraumatic and normocephalic EENT: EOMI, PERRLA, no oropharyngeal erythema, no tonsillar exudates, no conjunctival injection. sclera anicteric. Neck: No thyromegaly, no cervical lymphadenopathy, trachea midline Cardiac: S1 and S2 normal. RRR. Presence of crescendo-decrescendo murmur in right second space. Rubs, or gallops. No JVD. No hepatojugular reflex. Lungs: Good air entry bilaterally. No increased work for breathing. No wheezes, rhonchi, or rales. Abdomen: Soft, nontender, nondistended. Normoactive bowel sounds. No rebound or guarding. Negative Rodriguez's sign. No hepatosplenomegaly. Musculoskeletal: Full range of motion upper and lower extremities. No CVA tenderness. Extremities: No lower extremity pitting edema. 2+ radial and pedal pulses bilaterally. Skin: No abrasions, scars, or hematomas on visible skin. No cyanosis. No purulent discharge. Psychiatric: alert and oriented, well groomed, euthymic. cooperative Weight Dosing Weight: 79.6 kg (05/11/24) Dosing Weight: 75.6 kg (05/08/24) Medications Medications (17) Active Scheduled: (7) aspirin 81 mg EC 81 mg 1 tab(s), Oral, Daily atorvastatin 40 mg tablet 40 mg 1 tab(s), Oral, qHS clopidogrel 75 mg Tablet 75 mg 1 tab(s), Oral, qDay isosorbide mononitrate 30 mg ER tablet 30 mg 1 tab(s), Oral, qAM metoprolol succinate 50 mg ER tablet 50 mg 1 tab(s), Oral, qDay No metformin for 48 hrs post contrast 1 EA, Miscellaneous, Unscheduled pantoprazole 40 mg EC tablet 40 mg 1 tab(s), Oral, qDay Continuous: (1) heparin 25,000 unit(s) [12 unit(s)/kg/hr] + Dextrose 5% Premix Diluent 250 mL 250 mL, Intravenous, 9.6 mL/hr PRN: (9) dextrose 50% Solution Disp syringe 50 mL 12.5 gram(s) 25 mL, IV Push, AsDirected magnesium sulfate 4 gram(s)/100mL PMX 4 g 100 mL, IV Piggyback, AsDirected magnesium sulfate 50% (500mg/mL) 6 g 12 mL, IV Piggyback, AsDirected magnesium sulfate PMX 2 g 50 mL, IV Piggyback, AsDirected nitroglycerin 0.4 mg Tablet (25/btl) 0.4 mg 1 tab(s), Sublingual, q5min potassium chloride (PMX) 20 mEq/100 mL 20 mEq 100 mL, IV Piggyback, AsDirected potassium chloride 20 mEq ER tablet 20 mEq 1 tab(s), Oral, AsDirected potassium chloride 20 mEq ER tablet 40 mEq 2 tab(s), Oral, AsDirected potassium chloride 20 mEq ER tablet 40 mEq 2 tab(s), Oral, AsDirected Lab Results 05/11 11:49 Creatinine Lvl (s): 9.08 H 05/11 05:08 WBC: 6.3 Hgb: 10.0 L Hct: 29.5 L Platelet: 173 Neutrophil %: 61.4 Glucose Level: 91 Sodium Level: 136 Potassium Level: 5.1 H BUN: 79.0 H Creatinine Lvl (s): 9.02 H 05/10 05:52 WBC: 6.6 Hgb: 10.5 L Hct: 31.4 L Platelet: 164 Neutrophil %: 62.9 Glucose Level: 99 Sodium Level: 138 Potassium Level: 4.5 BUN: 60.0 H Creatinine Lvl (s): 7.49 H EKG EKG - Completed -- 05/08/24 10:00:00 EDT, Unless 2 EKGs already done in the past 6 hours EKG - Completed -- 05/08/24 18:06:00 EDT, QTc prolonged on tele EKG - Completed -- 05/08/24 20:35:00 EDT Electrocardiogram (EKG) - InProcess -- 05/08/24 17:50:00 EDT Electrocardiogram (EKG) - Ordered -- 05/11/24 10:00:00 EDT, Post-procedure, Complete by Nursing Assessment/Plan NSTEMI Concerns for gross hematuria-improved Moderate aortic stenosis Hematuria likely secondary to passage of kidney stone Normocytic anemia secondary to ESRD DVT prophylaxis CODE STATUS PMH: CAD s/p PCI of LCx in December 03 followed by in-stent restenosis of Lcx in February 2024 with PCI, (hx of Circ stent in 2014), End-stage renal disease on HD- MWF, HFmrEF, Dyslipidemia, GERD, Chronic cough Plan Patient is a 83 years old male with a past medical history of CAD, ESRD, dyslipidemia, hypertension, anemia, GERD, NSTEMI, moderate aortic stenosis, parathyroidectomy. He is being treated as a case of NSTEMI with ESRD. Risk labs: 05/08/2024: TSH: 1.26, A1c: 4.9%, lipid profile: TC: 148, T, HDL: 50, LDL: 84 -Given symptoms the patient presented with with extensive cardiac history, it was deemed appropriate that patient would benefit from a cardiac cath procedure. Patient got done with his left heart catheterization today. He was found to have restenosis of his left circumflex and a drug-eluting stent was placed. -He will be continued on his dual antiplatelet therapy especially since he has had ISR recently. Patient's troponins were flat at 600s throughout his admission. We expect his troponins to downtrend. -We will continue patient on heparin by weight. -No further symptoms are being endorsed. - For ESRD, nephrology continues to follow him and will dialyze the patient today later in the day. -He is continued on his appropriate home medications as well. -Replete electrolytes as needed. -For concerns of hematuria, urology was concerned who obtained CT abdomen and pelvis to rule out any major causes for hematuria. Few nonobstructive nephroliths were noted with some renal cyst as well. He did not need any De Santiago's and did not have any urinary retention as well. -Hematuria too has cleared up. The working theory is that patient may have had passed a kidney stone as he endorses symptoms of colicky pain followed by immediate improvement in urine output i.e. going back to his baseline. Patient to follow-up on an outpatient basis with urology as recommended. Appreciate recommendations from urology. DVT prophylaxis: Hbw Cardiac diet CODE STATUS: Full code Care discussed with Dr. Tmepleton. Please see attached addendum for additional information. Digitally Signed by LEONEL HERNANDEZ MD on 05/11/2024 01:30 PM Digitally Signed by LEONEL HERNANDEZ MD on 05/11/2024 01:34 PM [facility] [id number] NoteSINUS RHYTHM VENTRICULAR PREMATURE COMPLEX PROLONGED DC INTERVAL RIGHT BUNDLE BRANCH BLOCK Inferior infarct, age indeterminate Electronic Signature: ARTHUR ASHRAF MD 05/12/2024 18:57:30[facility] 09-30-2024 Cardiology Progress note Date of Service 05/11/2024 Subjective Patient was seen and examined at bedside. He underwent a left heart cath procedure today and was inno acute distress. A drug-eluting stent was placed to his left ostial circumflex. He is scheduled for dialysis today. He had no concerns. Objective Vitals and Measurements T: 36.0 C (Skin) TMIN: 36.0 C (Skin) TMAX: 36.7 C (Oral) HR: 63 (Monitored) RR: 18 BP: 142/57 SpO2:94% WT: 79.6 kg Intake and Output 7AM Yesterday to 7AM Today Intake and Output (Last 24 hours) Intake Oral Intake 450.00 Output Urine Voided 600.00 Total Summary Total Intake 450.00 Total Output 600.00 Fluid Balance -150.00 Physical Exam General Appearance: Appears to be stable and in no acute distress Head: Atraumatic and normocephalic EENT: EOMI, PERRLA, no oropharyngeal erythema, no tonsillar exudates, no conjunctival injection. sclera anicteric. Neck: No thyromegaly, no cervical lymphadenopathy, trachea midline Cardiac: S1 and S2 normal. RRR. Presence of crescendo-decrescendo murmur in right second space. Rubs, or gallops. No JVD. No hepatojugular reflex. Lungs: Good air entry bilaterally. No increased work for breathing. No wheezes, rhonchi, or rales. Abdomen: Soft, nontender, nondistended. Normoactive bowel sounds. No rebound or guarding. Negative Rodriguez's sign. No hepatosplenomegaly. Musculoskeletal: Full range of motion upper and lower extremities. No CVA tenderness. Extremities: No lower extremity pitting edema. 2+ radial and pedal pulses bilaterally. Skin: No abrasions, scars, or hematomas on visible skin. No cyanosis. No purulent discharge. Psychiatric: alert and oriented, well groomed, euthymic. cooperative Weight Dosing Weight: 79.6 kg (05/11/24) Dosing Weight: 75.6 kg (05/08/24) Medications Medications (17) Active Scheduled: (7) aspirin 81 mg EC 81 mg 1 tab(s), Oral, Daily atorvastatin 40 mg tablet 40 mg 1 tab(s), Oral, qHS clopidogrel 75 mg Tablet 75 mg 1 tab(s), Oral, qDay isosorbide mononitrate 30 mg ER tablet 30 mg 1 tab(s), Oral, qAM metoprolol succinate 50 mg ER tablet 50 mg 1 tab(s), Oral, qDay No metformin for 48 hrs post contrast 1 EA, Miscellaneous, Unscheduled pantoprazole 40 mg EC tablet 40 mg 1 tab(s), Oral, qDay Continuous: (1) heparin 25,000 unit(s) [12 unit(s)/kg/hr] + Dextrose 5% Premix Diluent 250 mL 250 mL, Intravenous, 9.6 mL/hr PRN: (9) dextrose 50% Solution Disp syringe 50 mL 12.5 gram(s) 25 mL, IV Push, AsDirected magnesium sulfate 4 gram(s)/100mL PMX 4 g 100 mL, IV Piggyback, AsDirected magnesium sulfate 50% (500mg/mL) 6 g 12 mL, IV Piggyback, AsDirected magnesium sulfate PMX 2 g 50 mL, IV Piggyback, AsDirected nitroglycerin 0.4 mg Tablet (25/btl) 0.4 mg 1 tab(s), Sublingual, q5min potassium chloride (PMX) 20 mEq/100 mL 20 mEq 100 mL, IV Piggyback, AsDirected potassium chloride 20 mEq ER tablet 20 mEq 1 tab(s), Oral, AsDirected potassium chloride 20 mEq ER tablet 40 mEq 2 tab(s), Oral, AsDirected potassium chloride 20 mEq ER tablet 40 mEq 2 tab(s), Oral, AsDirected Lab Results 05/11 11:49 Creatinine Lvl (s): 9.08 H 05/11 05:08 WBC: 6.3 Hgb: 10.0 L Hct: 29.5 L Platelet: 173 Neutrophil %: 61.4 Glucose Level: 91 Sodium Level: 136 Potassium Level: 5.1 H BUN: 79.0 H Creatinine Lvl (s): 9.02 H 05/10 05:52 WBC: 6.6 Hgb: 10.5 L Hct: 31.4 L Platelet: 164 Neutrophil %: 62.9 Glucose Level: 99 Sodium Level: 138 Potassium Level: 4.5 BUN: 60.0 H Creatinine Lvl (s): 7.49 H EKG EKG - Completed -- 05/08/24 10:00:00 EDT, Unless 2 EKGs already done in the past 6 hours EKG - Completed -- 05/08/24 18:06:00 EDT, QTc prolonged on tele EKG - Completed -- 05/08/24 20:35:00 EDT Electrocardiogram (EKG) - InProcess -- 05/08/24 17:50:00 EDT Electrocardiogram (EKG) - Ordered -- 05/11/24 10:00:00 EDT, Post-procedure, Complete by Nursing Assessment/Plan NSTEMI Concerns for gross hematuria-improved Moderate aortic stenosis Hematuria likely secondary to passage of kidney stone Normocytic anemia secondary to ESRD DVT prophylaxis CODE STATUS PMH: CAD s/p PCI of LCx in December 03 followed by in-stent restenosis of Lcx in February 2024 with PCI, (hx of Circ stent in 2014), End-stage renal disease on HD- MWF, HFmrEF, Dyslipidemia, GERD, Chronic cough Plan Patient is a 83 years old male with a past medical history of CAD, ESRD, dyslipidemia, hypertension, anemia, GERD, NSTEMI, moderate aortic stenosis, parathyroidectomy. He is being treated as a case of NSTEMI with ESRD. Risk labs: 05/08/2024: TSH: 1.26, A1c: 4.9%, lipid profile: TC: 148, T, HDL: 50, LDL: 84 -Given symptoms the patient presented with with extensive cardiac history, it was deemed appropriate that patient would benefit from a cardiac cath procedure. Patient got done with his left heart catheterization today. He was found to have restenosis of his left circumflex and a drug-eluting stent was placed. -He will be continued on his dual antiplatelet therapy especially since he has had ISR recently. Patient's troponins were flat at 600s throughout his admission. We expect his troponins to downtrend. -We will continue patient on heparin by weight. -No further symptoms are being endorsed. - For ESRD, nephrology continues to follow him and will dialyze the patient today later in the day. -He is continued on his appropriate home medications as well. -Replete electrolytes as needed. -For concerns of hematuria, urology was concerned who obtained CT abdomen and pelvis to rule out any major causes for hematuria. Few nonobstructive nephroliths were noted with some renal cyst as well. He did not need any De Santiago's and did not have any urinary retention as well. -Hematuria too has cleared up. The working theory is that patient may have had passed a kidney stone as he endorses symptoms of colicky pain followed by immediate improvement in urine output i.e. going back to his baseline. Patient to follow-up on an outpatient basis with urology as recommended. Appreciate recommendations from urology. DVT prophylaxis: Hbw Cardiac diet CODE STATUS: Full code Care discussed with Dr. Templeton. Please see attached addendum for additional information. Digitally Signed by LEONEL HERNANDEZ MD on 05/11/2024 01:30 PM Digitally Signed by LEONEL HERNANDEZ MD on 05/11/2024 01:34 PM [facility] [id number] NoteSINUS RHYTHM PROLONGED DC INTERVAL RIGHT BUNDLE BRANCH BLOCK Electronic Signature: ARTHUR ASHRAF MD 05/12/2024 18:56:[address] [place] [address] 09-30-2024 Cardiology Progress note S/P PCI with LAQUITA to ostial LCX Digitally Signed by TESS WEEMS MD on 05/11/2024 10:20 AM [facility] [id number] Note* Exam Date Time Procedure Performing Provider Status 05/11/24 9:25 AM Cardiac Catheterization -CV Auth (Verified) [facility] 09-30-2024 Nephrology Progress note Date of Service 05-11 Subjective resting Objective Vitals and Measurements T: 36.7 C (Oral) TMIN: 36.6 C (Oral) TMAX: 36.7 C (Oral) HR: 62 (Apical) RR: 17 BP: 138/54 SpO2: 96% Intake and Output 7AM Yesterday to 7AM Today Intake and Output (Last 24 hours) Intake Oral Intake 450.00 Output Urine Voided 600.00 Total Summary Total Intake 450.00 Total Output 600.00 Fluid Balance -150.00 Physical Exam General: No distress currently HEENT: Mucosa was moist, sclera anicteric, extraocular muscles intact, JVD present Lungs: Clear bilaterally with no crackles wheezes or rhonchi Heart: Regular with no murmurs rubs or gallops Abdomen: Positive bowel sounds, soft, no palpable masses Access: Right forearm AV fistula with positive bruit and thrill Extremities: No edema, pulses 1+ in dorsalis pedis arteries Skin: No rashes, normal turgor AVF: thrill+ Weight Dosing Weight: 75.6 kg (05/08/24) Dosing Weight: 78 kg (05/08/24) Medications Medications (16) Active Scheduled: (6) aspirin 81 mg EC 81 mg 1 tab(s), Oral, Daily atorvastatin 40 mg tablet 40 mg 1 tab(s), Oral, qHS clopidogrel 75 mg Tablet 75 mg 1 tab(s), Oral, qDay isosorbide mononitrate 30 mg ER tablet 30 mg 1 tab(s), Oral, qAM metoprolol succinate 50 mg ER tablet 50 mg 1 tab(s), Oral, qDay pantoprazole 40 mg EC tablet 40 mg 1 tab(s), Oral, qDay Continuous: (1) heparin 25,000 unit(s) [12 unit(s)/kg/hr] + Dextrose 5% Premix Diluent 250 mL 250 mL, Intravenous, 9.6 mL/hr PRN: (9) dextrose 50% Solution Disp syringe 50 mL 12.5 gram(s) 25 mL, IV Push, AsDirected magnesium sulfate 4 gram(s)/100mL PMX 4 g 100 mL, IV Piggyback, AsDirected magnesium sulfate 50% (500mg/mL) 6 g 12 mL, IV Piggyback, AsDirected magnesium sulfate PMX 2 g 50 mL, IV Piggyback, AsDirected nitroglycerin 0.4 mg Tablet (25/btl) 0.4 mg 1 tab(s), Sublingual, q5min potassium chloride (PMX) 20 mEq/100 mL 20 mEq 100 mL, IV Piggyback, AsDirected potassium chloride 20 mEq ER tablet 20 mEq 1 tab(s), Oral, AsDirected potassium chloride 20 mEq ER tablet 40 mEq 2 tab(s), Oral, AsDirected potassium chloride 20 mEq ER tablet 40 mEq 2 tab(s), Oral, AsDirected Lab Results 05/11 05:08 WBC: 6.3 Hgb: 10.0 L Hct: 29.5 L Platelet: 173 Neutrophil %: 61.4 Glucose Level: 91 Sodium Level: 136 Potassium Level: 5.1 H BUN: 79.0 H Creatinine Lvl (s): 9.02 H 05/10 05:52 WBC: 6.6 Hgb: 10.5 L Hct: 31.4 L Platelet: 164 Neutrophil %: 62.9 Glucose Level: 99 Sodium Level: 138 Potassium Level: 4.5 BUN: 60.0 H Creatinine Lvl (s): 7.49 H EKG EKG - Completed -- 05/08/24 10:00:00 EDT, Unless 2 EKGs already done in the past 6 hours EKG - Completed -- 05/08/24 18:06:00 EDT, QTc prolonged on tele EKG - Completed -- 05/08/24 20:35:00 EDT Assessment/Plan Gross hematuria Time Spent 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 He will use a 2K bath on dialysis today for 3-1/2 hours. Ultrafiltration dry weight as tolerated. Dose medical GFR less than 10. [1] Progress Note; OMAIRA PACE MD 05/09/2024 18:03 EDT Digitally Signed by JEAN-PIERRE HUITRON MD on 05/11/2024 04:26 PM [facility] [id number] Cardiology Progress note Date of Service 05/10/2024 Subjective Patient was seen and examined at bedside. He was in no acute distress. Patient had no chest pain, palpitations or shortness of breath. He did not experience any episode of hematuria. Objective Vitals and Measurements T: 36.7 C (Oral) TMIN: 36.6 C (Oral) TMAX: 36.8 C (Oral) HR: 61 (Monitored) RR: 16 BP: 121/54 SpO2:94% Intake and Output 7AM Yesterday to 7AM Today Intake and Output (Last 24 hours) Intake Administration Information 179.20 Oral Intake 810.00 Output Urine Voided 550.00 Urine Count 2.00 Total Summary Total Intake 989.20 Total Output 550.00 Fluid Balance 439.20 Physical Exam General Appearance: Appears to be stable and in no acute distress Head: Atraumatic and normocephalic EENT: EOMI, PERRLA, no oropharyngeal erythema, no tonsillar exudates, no conjunctival injection. sclera anicteric. Neck: No thyromegaly, no cervical lymphadenopathy, trachea midline Cardiac: S1 and S2 normal. RRR. Presence of crescendo-decrescendo murmur in right second space. Rubs, or gallops. No JVD. No hepatojugular reflex. Lungs: Good air entry bilaterally. No increased work for breathing. No wheezes, rhonchi, or rales. Abdomen: Soft, nontender, nondistended. Normoactive bowel sounds. No rebound or guarding. Negative Rodriguez's sign. No hepatosplenomegaly. Musculoskeletal: Full range of motion upper and lower extremities. No CVA tenderness. Extremities: No lower extremity pitting edema. 2+ radial and pedal pulses bilaterally. Skin: No abrasions, scars, or hematomas on visible skin. No cyanosis. No purulent discharge. Psychiatric: alert and oriented, well groomed, euthymic. cooperative Weight Dosing Weight: 75.6 kg (05/08/24) Dosing Weight: 78 kg (05/08/24) Medications Medications (16) Active Scheduled: (6) aspirin 81 mg EC 81 mg 1 tab(s), Oral, Daily atorvastatin 40 mg tablet 40 mg 1 tab(s), Oral, qHS clopidogrel 75 mg Tablet 75 mg 1 tab(s), Oral, qDay isosorbide mononitrate 30 mg ER tablet 30 mg 1 tab(s), Oral, qAM metoprolol succinate 50 mg ER tablet 50 mg 1 tab(s), Oral, qDay pantoprazole 40 mg EC tablet 40 mg 1 tab(s), Oral, qDay Continuous: (1) heparin 25,000 unit(s) [12 unit(s)/kg/hr] + Dextrose 5% Premix Diluent 250 mL 250 mL, Intravenous, 9.6 mL/hr PRN: (9) dextrose 50% Solution Disp syringe 50 mL 12.5 gram(s) 25 mL, IV Push, AsDirected magnesium sulfate 4 gram(s)/100mL PMX 4 g 100 mL, IV Piggyback, AsDirected magnesium sulfate 50% (500mg/mL) 6 g 12 mL, IV Piggyback, AsDirected magnesium sulfate PMX 2 g 50 mL, IV Piggyback, AsDirected nitroglycerin 0.4 mg Tablet (25/btl) 0.4 mg 1 tab(s), Sublingual, q5min potassium chloride (PMX) 20 mEq/100 mL 20 mEq 100 mL, IV Piggyback, AsDirected potassium chloride 20 mEq ER tablet 20 mEq 1 tab(s), Oral, AsDirected potassium chloride 20 mEq ER tablet 40 mEq 2 tab(s), Oral, AsDirected potassium chloride 20 mEq ER tablet 40 mEq 2 tab(s), Oral, AsDirected Lab Results 05/10 05:52 WBC: 6.6 Hgb: 10.5 L Hct: 31.4 L Platelet: 164 Neutrophil %: 62.9 Glucose Level: 99 Sodium Level: 138 Potassium Level: 4.5 BUN: 60.0 H Creatinine Lvl (s): 7.49 H 05/09 04:06 WBC: 7.1 Hgb: 10.9 L Hct: 32.7 L Platelet: 174 Neutrophil %: 68.4 Glucose Level: 97 Sodium Level: 140 Potassium Level: 4.4 BUN: 39.0 H Creatinine Lvl (s): 5.16 H EKG EKG - Completed -- 05/08/24 10:00:00 EDT, Unless 2 EKGs already done in the past 6 hours EKG - Completed -- 05/08/24 18:06:00 EDT, QTc prolonged on tele EKG - Completed -- 05/08/24 20:35:00 EDT Assessment/Plan NSTEMI Concerns for gross hematuria-improved Moderate aortic stenosis Hematuria likely secondary to passage of kidney stone DVT prophylaxis CODE STATUS PMH: CAD s/p PCI of LCx in December 03 followed by in-stent restenosis of Lcx in February 2024 with PCI, (hx of Circ stent in 2014), End-stage renal disease on HD- MWF, HFmrEF, Dyslipidemia, GERD, Chronic cough Plan Patient is a 83 years old male with a past medical history of CAD, ESRD, dyslipidemia, hypertension, anemia, GERD, NSTEMI, moderate aortic stenosis, parathyroidectomy. He is being treated as a case of NSTEMI with ESRD. Risk labs: 05/08/2024: TSH: 1.26, A1c: 4.9%, lipid profile: TC: 148, T, HDL: 50, LDL: 84 -Given symptoms the patient presented with with extensive cardiac history, it was deemed appropriate that patient would benefit from a cardiac cath procedure. He is scheduled for this for 05/11/2024. He will be n.p.o. from Saturday night. -He has been resumed on his dual antiplatelet therapy especially since he has had ISR recently. Patient's troponins continue to trend in the 600s, with the most recent one being 631 -Given high suspicion for NSTEMI, we continue patient on heparin by weight. -No further symptoms and being endorsed. -Cardiac catheterization procedure is of course risky given that he is quite ESRD. For this, nephrology continues to follow him and may dialyze the patient after the cath. Appreciate recommendations from disability counselor. -He is continued on his appropriate home medications as well. -Replete electrolytes as needed. -For concerns of hematuria, urology was concerned who obtained CT abdomen and pelvis to rule out any major causes for hematuria. Few nonobstructive nephroliths were noted with some renal cyst as well. He did not need any De Santiago's and did not have any urinary retention as well. -Hematuria too has cleared up. The working theory is that patient may have had passed a kidney stone as he endorses symptoms of colicky pain followed by immediate improvement in urine output i.e. going back to his baseline. Patient to follow-up on an outpatient basis with urology as recommended. Appreciate recommendations from urology. DVT prophylaxis: Hbw Cardiac diet CODE STATUS: Full code Care discussed with Dr. Blandon. Please see diagram for additional information. Digitally Signed by LEONEL HERNANDEZ MD on 05/10/2024 02:58 PM [facility] [id number] Cardiology Progress note Date of Service 05/10/2024 Subjective Patient was seen and examined at bedside. He was in no acute distress. Patient had no chest pain, palpitations or shortness of breath. He did not experience any episode of hematuria. Objective Vitals and Measurements T: 36.7 C (Oral) TMIN: 36.6 C (Oral) TMAX: 36.8 C (Oral) HR: 61 (Monitored) RR: 16 BP: 121/54 SpO2:94% Intake and Output 7AM Yesterday to 7AM Today Intake and Output (Last 24 hours) Intake Administration Information 179.20 Oral Intake 810.00 Output Urine Voided 550.00 Urine Count 2.00 Total Summary Total Intake 989.20 Total Output 550.00 Fluid Balance 439.20 Physical Exam General Appearance: Appears to be stable and in no acute distress Head: Atraumatic and normocephalic EENT: EOMI, PERRLA, no oropharyngeal erythema, no tonsillar exudates, no conjunctival injection. sclera anicteric. Neck: No thyromegaly, no cervical lymphadenopathy, trachea midline Cardiac: S1 and S2 normal. RRR. Presence of crescendo-decrescendo murmur in right second space. Rubs, or gallops. No JVD. No hepatojugular reflex. Lungs: Good air entry bilaterally. No increased work for breathing. No wheezes, rhonchi, or rales. Abdomen: Soft, nontender, nondistended. Normoactive bowel sounds. No rebound or guarding. Negative Rodriguez's sign. No hepatosplenomegaly. Musculoskeletal: Full range of motion upper and lower extremities. No CVA tenderness. Extremities: No lower extremity pitting edema. 2+ radial and pedal pulses bilaterally. Skin: No abrasions, scars, or hematomas on visible skin. No cyanosis. No purulent discharge. Psychiatric: alert and oriented, well groomed, euthymic. cooperative Weight Dosing Weight: 75.6 kg (05/08/24) Dosing Weight: 78 kg (05/08/24) Medications Medications (16) Active Scheduled: (6) aspirin 81 mg EC 81 mg 1 tab(s), Oral, Daily atorvastatin 40 mg tablet 40 mg 1 tab(s), Oral, qHS clopidogrel 75 mg Tablet 75 mg 1 tab(s), Oral, qDay isosorbide mononitrate 30 mg ER tablet 30 mg 1 tab(s), Oral, qAM metoprolol succinate 50 mg ER tablet 50 mg 1 tab(s), Oral, qDay pantoprazole 40 mg EC tablet 40 mg 1 tab(s), Oral, qDay Continuous: (1) heparin 25,000 unit(s) [12 unit(s)/kg/hr] + Dextrose 5% Premix Diluent 250 mL 250 mL, Intravenous, 9.6 mL/hr PRN: (9) dextrose 50% Solution Disp syringe 50 mL 12.5 gram(s) 25 mL, IV Push, AsDirected magnesium sulfate 4 gram(s)/100mL PMX 4 g 100 mL, IV Piggyback, AsDirected magnesium sulfate 50% (500mg/mL) 6 g 12 mL, IV Piggyback, AsDirected magnesium sulfate PMX 2 g 50 mL, IV Piggyback, AsDirected nitroglycerin 0.4 mg Tablet (25/btl) 0.4 mg 1 tab(s), Sublingual, q5min potassium chloride (PMX) 20 mEq/100 mL 20 mEq 100 mL, IV Piggyback, AsDirected potassium chloride 20 mEq ER tablet 20 mEq 1 tab(s), Oral, AsDirected potassium chloride 20 mEq ER tablet 40 mEq 2 tab(s), Oral, AsDirected potassium chloride 20 mEq ER tablet 40 mEq 2 tab(s), Oral, AsDirected Lab Results 05/10 05:52 WBC: 6.6 Hgb: 10.5 L Hct: 31.4 L Platelet: 164 Neutrophil %: 62.9 Glucose Level: 99 Sodium Level: 138 Potassium Level: 4.5 BUN: 60.0 H Creatinine Lvl (s): 7.49 H 05/09 04:06 WBC: 7.1 Hgb: 10.9 L Hct: 32.7 L Platelet: 174 Neutrophil %: 68.4 Glucose Level: 97 Sodium Level: 140 Potassium Level: 4.4 BUN: 39.0 H Creatinine Lvl (s): 5.16 H EKG EKG - Completed -- 05/08/24 10:00:00 EDT, Unless 2 EKGs already done in the past 6 hours EKG - Completed -- 05/08/24 18:06:00 EDT, QTc prolonged on tele EKG - Completed -- 05/08/24 20:35:00 EDT Assessment/Plan NSTEMI Concerns for gross hematuria-improved Moderate aortic stenosis Hematuria likely secondary to passage of kidney stone DVT prophylaxis CODE STATUS PMH: CAD s/p PCI of LCx in December 03 followed by in-stent restenosis of Lcx in February 2024 with PCI, (hx of Circ stent in 2014), End-stage renal disease on HD- MWF, HFmrEF, Dyslipidemia, GERD, Chronic cough Plan Patient is a 83 years old male with a past medical history of CAD, ESRD, dyslipidemia, hypertension, anemia, GERD, NSTEMI, moderate aortic stenosis, parathyroidectomy. He is being treated as a case of NSTEMI with ESRD. Risk labs: 05/08/2024: TSH: 1.26, A1c: 4.9%, lipid profile: TC: 148, T, HDL: 50, LDL: 84 -Given symptoms the patient presented with with extensive cardiac history, it was deemed appropriate that patient would benefit from a cardiac cath procedure. He is scheduled for this for 05/11/2024. He will be n.p.o. from Saturday night. -He has been resumed on his dual antiplatelet therapy especially since he has had ISR recently. Patient's troponins continue to trend in the 600s, with the most recent one being 631 -Given high suspicion for NSTEMI, we continue patient on heparin by weight. -No further symptoms and being endorsed. -Cardiac catheterization procedure is of course risky given that he is quite ESRD. For this, nephrology continues to follow him and may dialyze the patient after the cath. Appreciate recommendations from disability counselor. -He is continued on his appropriate home medications as well. -Replete electrolytes as needed. -For concerns of hematuria, urology was concerned who obtained CT abdomen and pelvis to rule out any major causes for hematuria. Few nonobstructive nephroliths were noted with some renal cyst as well. He did not need any De Santiago's and did not have any urinary retention as well. -Hematuria too has cleared up. The working theory is that patient may have had passed a kidney stone as he endorses symptoms of colicky pain followed by immediate improvement in urine output i.e. going back to his baseline. Patient to follow-up on an outpatient basis with urology as recommended. Appreciate recommendations from urology. DVT prophylaxis: Hbw Cardiac diet CODE STATUS: Full code Care discussed with Dr. Blandon. Please see diagram for additional information. Digitally Signed by LEONEL HERNANDEZ MD on 05/10/2024 02:58 PM [facility] [id number] Nephrology Progress note Date of Service 05/10/2024 Subjective Lying in the bed, reports no acute complaint. No acute event overnight. Objective Vitals and Measurements T: 36.6 C (Oral) TMIN: 36.6 C (Oral) TMAX: 36.8 C (Oral) HR: 60 (Monitored) RR: 18 BP: 151/51 SpO2:96% Intake and Output 7AM Yesterday to 7AM Today Intake and Output (Last 24 hours) Intake Administration Information 179.20 Oral Intake 360.00 Output Urine Voided 450.00 Stool Count 0.00 Urine Count 2.00 Total Summary Total Intake 539.20 Total Output 450.00 Fluid Balance 89.20 Physical Exam Weight Dosing Weight: 75.6 kg (05/08/24) Dosing Weight: 78 kg (05/08/24) Medications Medications (16) Active Scheduled: (6) aspirin 81 mg EC 81 mg 1 tab(s), Oral, Daily atorvastatin 40 mg tablet 40 mg 1 tab(s), Oral, qHS clopidogrel 75 mg Tablet 75 mg 1 tab(s), Oral, qDay isosorbide mononitrate 30 mg ER tablet 30 mg 1 tab(s), Oral, qAM metoprolol succinate 50 mg ER tablet 50 mg 1 tab(s), Oral, qDay pantoprazole 40 mg EC tablet 40 mg 1 tab(s), Oral, qDay Continuous: (1) heparin 25,000 unit(s) [12 unit(s)/kg/hr] + Dextrose 5% Premix Diluent 250 mL 250 mL, Intravenous, 9.6 mL/hr PRN: (9) dextrose 50% Solution Disp syringe 50 mL 12.5 gram(s) 25 mL, IV Push, AsDirected magnesium sulfate 4 gram(s)/100mL PMX 4 g 100 mL, IV Piggyback, AsDirected magnesium sulfate 50% (500mg/mL) 6 g 12 mL, IV Piggyback, AsDirected magnesium sulfate PMX 2 g 50 mL, IV Piggyback, AsDirected nitroglycerin 0.4 mg Tablet (25/btl) 0.4 mg 1 tab(s), Sublingual, q5min potassium chloride (PMX) 20 mEq/100 mL 20 mEq 100 mL, IV Piggyback, AsDirected potassium chloride 20 mEq ER tablet 20 mEq 1 tab(s), Oral, AsDirected potassium chloride 20 mEq ER tablet 40 mEq 2 tab(s), Oral, AsDirected potassium chloride 20 mEq ER tablet 40 mEq 2 tab(s), Oral, AsDirected Lab Results 05/10 05:52 WBC: 6.6 Hgb: 10.5 L Hct: 31.4 L Platelet: 164 Neutrophil %: 62.9 Glucose Level: 99 Sodium Level: 138 Potassium Level: 4.5 BUN: 60.0 H Creatinine Lvl (s): 7.49 H 05/09 04:06 WBC: 7.1 Hgb: 10.9 L Hct: 32.7 L Platelet: 174 Neutrophil %: 68.4 Glucose Level: 97 Sodium Level: 140 Potassium Level: 4.4 BUN: 39.0 H Creatinine Lvl (s): 5.16 H EKG No qualifying data available. Assessment/Plan ESRD on iHD - on M/W/F Unstable angina Hypertension in CKD Anemia of CKD Access: Right aVF fistula good thrill Recommendations: Patient comfortable appear euvolemic, reviewed labs potassium 4.5, no urgent need for dialysis today. Will maintain his schedule Saturday. Hemoglobin at goal 10.5. Plan Procrit with dialysis Nutrition: Recommend low salt, low potassium, low phosphate, and high protein diet. Plan likely for left heart cath on Saturday. Thank you for allowing us to take care of Mr. Duran please do not hesitate to reach out with any question or concern. Digitally Signed by OMAIRA PACE MD on 05/10/2024 01:03 PM [facility] [id number] Note. MICRO - Microbiology PROCEDURE: Urine Culture [*1] SOURCE: Urine, Clean Catch BODY SITE: COLLECTED DATE/TIME: 05/08/2024 21:54 EDT RECEIVED DATE/TIME: 05/08/2024 22:19 EDT START DATE/TIME: 05/08/2024 22:19 EDT FREE TEXT SOURCE: FINAL REPORTS Final Report [] Verified Date/Time/Personnel: 05/10/2024 07:21 EDT No growth at 48 hours. PRELIMINARY REPORTS Preliminary Report [] Verified Date/Time/Personnel: 05/09/2024 11:07 EDT No growth to date Performing Locations *1: This test was performed at: [facility], [address] [place] [address], [id number] , [facility] [id number] Urology Progress note Date of Service 05/09/24 Chief Complaint hematuria Subjective patient says he is voiding ok, hematuria improved per patient, says very light pink Nursing said PVR was done, however, they cant find documentation on the volume. (CT non distended urinary bladder) Objective Vitals and Measurements T: 36.5 C (Oral) TMIN: 36.5 C (Oral) TMAX: 36.7 C (Oral) HR: 70 (Monitored) RR: 16 BP: 127/35 SpO2:93% WT: 75.6 kg Intake and Output 7AM Yesterday to 7AM Today Intake and Output (Last 24 hours) Intake Administration Information 76.80 Oral Intake 150.00 Output Hemodialysis 3000.00 Total Summary Total Intake 226.80 Total Output 3000.00 Fluid Balance -2773.20 Physical Exam GENERAL:Appears to be in no acute distress. LUNGS: no use of accessory muscles, no wheezes or cough. ABDOMEN: Soft, non distended, non tender. . GENITOURINARY: _ Deferred Weight Dosing Weight: 75.6 kg (05/08/24) Dosing Weight: 78 kg (05/08/24) Medications Medications (16) Active Scheduled: (5) aspirin 81 mg EC 81 mg 1 tab(s), Oral, Daily atorvastatin 40 mg tablet 40 mg 1 tab(s), Oral, qHS isosorbide mononitrate 30 mg ER tablet 30 mg 1 tab(s), Oral, qAM metoprolol succinate 50 mg ER tablet 50 mg 1 tab(s), Oral, qDay pantoprazole 40 mg EC tablet 40 mg 1 tab(s), Oral, qDay Continuous: (1) heparin 25,000 unit(s) [12 unit(s)/kg/hr] + Dextrose 5% Premix Diluent 250 mL 250 mL, Intravenous, 9.6 mL/hr PRN: (10) dextrose 50% Solution Disp syringe 50 mL 12.5 gram(s) 25 mL, IV Push, AsDirected heparin 5,000 units/mL (1 mL) vial 4,000 unit(s) 0.8 mL, IV Push, q6h magnesium sulfate 4 gram(s)/100mL PMX 4 g 100 mL, IV Piggyback, AsDirected magnesium sulfate 50% (500mg/mL) 6 g 12 mL, IV Piggyback, AsDirected magnesium sulfate PMX 2 g 50 mL, IV Piggyback, AsDirected nitroglycerin 0.4 mg Tablet (25/btl) 0.4 mg 1 tab(s), Sublingual, q5min potassium chloride (PMX) 20 mEq/100 mL 20 mEq 100 mL, IV Piggyback, AsDirected potassium chloride 20 mEq ER tablet 20 mEq 1 tab(s), Oral, AsDirected potassium chloride 20 mEq ER tablet 40 mEq 2 tab(s), Oral, AsDirected potassium chloride 20 mEq ER tablet 40 mEq 2 tab(s), Oral, AsDirected Lab Results 05/09 04:06 WBC: 7.1 Hgb: 10.9 L Hct: 32.7 L Platelet: 174 Neutrophil %: 68.4 Glucose Level: 97 Sodium Level: 140 Potassium Level: 4.4 BUN: 39.0 H Creatinine Lvl (s): 5.16 H 05/08 07:23 WBC: 8.9 Hgb: 10.5 L Hct: 32.1 L Platelet: 164 Neutrophil %: 80.5 H Protime: 11.4 PT International Ratio: 1.0 Glucose Level: 97 Sodium Level: 142 Potassium Level: 5.0 BUN: 64.0 H Creatinine Lvl (s): 7.45 H EKG Electrocardiogram (EKG) - Ordered -- 05/08/24 17:50:00 EDT Electrocardiogram (EKG) - InProcess -- 05/08/24 18:06:00 EDT, QTc prolonged on tele Electrocardiogram (EKG) - InProcess -- 05/08/24 20:35:00 EDT Assessment/Plan Gross hematuria Patient doesnt require de santiago at this point CT reviewed, non specific stranding around prostate If urine culture is +, medical team can treat for UTI for 7-14 days No acute urologic surgical intervention will fu outpatient cysto call urology if any concerns Time Spent 5 mins Digitally Signed by MARGO RODRIGUEZ MD on 05/09/2024 07:40 AM [facility] [id number] NoteSINUS RHYTHM PROLONGED DC INTERVAL PROBABLE LEFT ATRIAL ENLARGEMENT RIGHT BUNDLE BRANCH BLOCK INFERIOR INFARCT, AGE INDETERMINATE Electronic Signature: CRISTIANO PLATT MD 05/10/2024 14:01:07[facility] 09-27-2024 Note ORIGINAL EXAMINATION: CT OF THE ABDOMEN AND PELVIS WITHOUT CONTRAST 05/08/2024 8:05 pm TECHNIQUE: CT of the abdomen and pelvis was performed without the administration of intravenous contrast. Multiplanar reformatted images are provided for review. Automated exposure control, iterative reconstruction, and/or weight based adjustment of the mA/kV was utilized to reduce the radiation dose to as low as reasonably achievable. COMPARISON: Renal ultrasound December 01, 2021 HISTORY: ORDERING SYSTEM PROVIDED HISTORY: Reason for Exam: PAIN MID ABD FEW DAYS W CLOTTY HEMATURIA, NO PREV BLADDER OR PROSTATE HX PER PT gross hematuria, history of kidney stones FINDINGS: Lower Chest: Calcified granuloma in the left lower lobe. Severe aortic valve calcifications. Mitral valve calcifications. Coronary artery calcifications. Small pericardial fluid. Organs: A few small cysts and calcifications in the liver, some which are too small to characterize. Parenchymal volume loss of the kidneys. Bilateral renal cysts, some of which are too small to characterize, some of which are hyperdense, and some of which are indeterminate density; correlate with prior imaging for stability and consider nonemergent MRI. A few nonobstructing nephrolithiasis bilaterally. No hydronephrosis or hydroureter. Subcentimeter hypodensity in the spleen too small to characterize. GI/Bowel: Colonic and small bowel diverticulosis without evidence of diverticulitis. Pelvis: Enlarged prostate with mild surrounding haziness. Bladder unremarkable. Peritoneum/Retroperitoneum: Nonaneurysmal abdominal aorta with atherosclerotic plaque and calcifications throughout its course and major branches. No enlarged lymph nodes. Bones/Soft Tissues: Left lower anterior abdominal wall postsurgical changes. Degenerative changes of the spine. Chronic pars defects of L5. IMPRESSION: Enlarged prostate with mild surrounding haziness, suggestive of prostatitis. Correlate with urinalysis. Bilateral renal cysts, some of which are too small to characterize, some of which are hyperdense, and some of which are indeterminate density; correlate with prior imaging for stability and consider nonemergent MRI. A few nonobstructing nephrolithiasis bilaterally. No hydronephrosis or hydroureter. Interpreted by: Bud Prakash Preliminary Report By: Bud Prakash Electronically signed By Bud Prakash Dictated Date: 05/08/2024 8:46:38 PM Prelim Date: 05/08/2024 8:56:48 PM Sign Date: 05/08/2024 8:56:48 PM Ordering Provider: [facility]09-27-2024 History and physical note Date of Service 05/08/2024 Chief Complaint Chest pain History of Present Illness [employer] CLAIRE ANDINO MD 84-year-old male admitted to CCU with chest pain. Patient is a transfer from [facility]. Began having chest pain around 11 AM today. Chest pain is central radiates to his left jaw. Some improvement with nitro given at [facility]. Symptoms feel similar to prior cardiac events. Had 2 episodes of vomiting. Has persistent chronic cough. No fevers or chills. No shortness of breath.Chest pain chest pain. CAD in [place] artery s/p PCI of LCx in December 03 followed by in-stent restenosis of Lcx in February 2024 with PCI,(hx of Circ stent in 2014 , Aortic stenosis, is on dialysis Saturday, Saturday, Saturday. Last dialysis was Saturday. At [facility] [place] T: 36.7 C (Oral) HR: 75 RR: 16 BP: 143/69 SpO2: 93%. Showed Hb 10.3, WBC 8.6, platelets 168. BMP showed sodium 138, potassium 4.5, CO2 32, bun 62, creat 7.31. HsTrop 54, repeat 86. Chest x-ray showed cardiomegaly with mild central vascular congestion. Last echo 02/25/2024 EF 43%. Grade 2 diastolic function. Moderate aortic stenosis. peak velocity 2.8m/s. Review of Systems CONSTITUTIONAL: No weight loss, fever, chills, weakness or fatigue. HEENT: Eyes: No visual loss, blurred vision, double vision or yellow sclerae. Ears, Nose, Throat: No hearing loss, sneezing, congestion, runny nose or sore throat. SKIN: No rash or itching. CARDIOVASCULAR: Having chest pain radiating to jaw RESPIRATORY: No shortness of breath, cough or sputum. GASTROINTESTINAL: No anorexia, nausea, vomiting or diarrhea. No abdominal pain or blood. NEUROLOGICAL: No headache, dizziness, syncope, paralysis, ataxia, numbness or tingling in the extremities. No change in bowel or bladder control. MUSCULOSKELETAL: No muscle, back pain, joint pain or stiffness. HEMATOLOGIC: No anemia, bleeding or bruising. LYMPHATICS: No enlarged nodes. No history of splenectomy. PSYCHIATRIC: No history of depression or anxiety. ENDOCRINOLOGIC: No reports of sweating, cold or heat intolerance. No polyuria or polydipsia. ALLERGIES: No history of asthma, hives, eczema or rhinitis. Physical Exam Vitals and Measurements Weight Dosing Weight: 80 kg (05/08/24) GENERAL: Awake, alert, comfortable appearing, in no acute distress. HEENT: Head is normocephalic and atraumatic. Pupils are equal, round, and reactive to light. Extraocular muscles are intact. No nasal discharge. NECK: Supple with no cervical lymphadenopathy. HEART: Regular rate without murmur, rub, or gallop. LUNGS: Equal breath sounds bilaterally with no wheezing, rales, or rhonchi. There is no chest wall tenderness or instability. ABDOMEN: Bowel sounds are present. Abdomen is soft, nontender. No rebound, no guarding, no rigidity. There are no palpable masses. There is no flank pain on exam. EXTREMITIES: Strong peripheral pulses. There is no clubbing, no cyanosis, and no edema. SKIN: No rash. Imaging Results and Diagnostics Chest x-ray showed cardiomegaly with mild central vascular congestion EKG Sinus rhythm Prolonged DC interval Right bundle branch block Inferior infarct, age indeterminate Assessment/Plan NSTEMI CAD and [place] artery artery s/p PCI of LCx in December 03 followed by in-stent restenosis of Lcx in February 2024 with PCI, (hx of Circ stent in 2014) Moderate aortic stenosis End-stage renal disease on HD-MWF HFmrEF Dyslipidemia GERD Chronic cough DVT prophylaxis CODE STATUS Admit MTS CCU team Refer to nephrology for dialysis Keep n.p.o. for possible heart cath Aspirin,plavix, atorvastatin, metoprolol Restart home medications as tolerated Keep potassium greater than 4 magnesium greater than 2 Repeat echocardiogram Serial troponins and EKGs Check TSH, A1c, lipid profile Sublingual GTN for chest pain 0.4 MGs. Can give every 5 minutes to maximum 3 doses Can add morphine for chest pain as required Prophylaxis heparin by weight CODE STATUS-full code Problem List/Past Medical History Ongoing Anemia CAD IN [place] ARTERY Chronic heart failure with preserved ejection fraction (HFpEF) CKD (chronic kidney disease) DYSLIPIDEMIA ESRD on dialysis GERD - Gastro-esophageal reflux disease H/O NON-ST ELEVATION MYOCARDIAL INFARCTION (NSTEMI) HYPERTENSION, BENIGN Mild aortic regurgitation Mild mitral regurgitation Moderate aortic stenosis OVERWEIGHT (BMI 25.0-29.9) Parathyroidectomy PREOPERATIVE CLEARANCE PVC (PREMATURE VENTRICULAR CONTRACTION) PVCs (premature ventricular contractions) Smoker Procedure/Surgical History Cardiovascular stress testin11/18/23 PCI - Percutaneous coronary intervention: 09/06/14 Cardiac catheterization, combined right and left heart: 09/06/14 Placement of stent in coronary artery: 09/04/14 Excision of parathyroid gland: 2012 Cystoscopic laser lithotripsy of ureteric calculus: 1960 Hand Blood transfusion Hernia repair Colonoscopy Endoscopy Medications Home Medications (9) Active aspirin 81 mg oral delayed release tablet 81 mg = 1 tab(s), Oral, Daily atorvastatin 40 mg oral tablet 40 mg = 1 tab(s), Oral, qHS calcium acetate 667 mg oral capsule 2,001 mg = 3 cap(s), Oral isosorbide mononitrate 30 mg oral tablet, extended release 30 mg = 1 tab(s), Oral, qAM Lasix 40 mg oral tablet 40 mg = 1 tab(s), Oral, qDay metoprolol succinate 25 mg oral TABLET extended release 50 mg = 2 tab(s), Oral, qDay nitroglycerin 0.4 mg sublingual tablet 0.4 mg = 1 tab(s), PRN, Sublingual, q5min pantoprazole 40 mg oral enteric coated tablet 1 tab(s), Oral, qDay Plavix 75 mg oral tablet 75 mg = 1 tab(s), Oral, qDay Allergies lisinopril Cough Social History Smoking Status - 09/04/2014 Former smoker Alcohol Use: Current. Type: Liquor. Frequency: 1-2 times per week., 02/24/2024 Use: Current. Type: Liquor. Frequency: 1-2 times per week., 11/06/2018 Nutrition/Health Caffeine intake amount: 1-2 cups per day., 11/30/2021 Substance Abuse Use: Never., 11/06/2018 Tobacco Nicotine Use: Former smoker, quit more than 30 days ago. Type: Cigarettes. Tobacco use per day: 30.Number of years: 17., 04/03/2024 Nicotine Use: Former smoker, quit more than 30 days ago., 02/24/2024 Family History Cancer: Mother and Father. Cancer: Brother. Heart disease: Father. Health Status Family Member(s) Immunizations pneumococcal 13-valent conjugate vaccine: 0 unknown unit (12/24/14) pneumococcal 23-valent vaccine(Pneumovax: 0.5 unknown unit (03/04/17) SARS-CoV-2 (COVID-19) mRNA-1273 vaccine: 0.25 unknown unit (07/31/21) SARS-CoV-2 (COVID-19) mRNA-1273 vaccine: 0.5 unknown unit (11/08/20) SARS-CoV-2 (COVID-19) mRNA-1273 vaccine: 0.5 unknown unit (10/11/20) tetanus/diphth/pertuss (Tdap) adult/adol: 0.5 mL (10/31/18) Code Status No qualifying data available. Digitally Signed by ANDER SANCHEZ MD on 05/08/2024 06:53 AM [facility] [id number] NoteSINUS RHYTHM ATRIAL PREMATURE COMPLEX BORDERLINE PROLONGED DC INTERVAL RIGHT BUNDLE BRANCH BLOCK INFERIOR INFARCT, OLD Electronic Signature: CRISTIANO PLATT MD 05/10/2024 14:01:02[facility] 09-27-2024 Urology Consult note Date of Service 05/08/24 Reason for Consultation gross hematuria Referring Physician Dr. Shaffer History of Present Illness This is a 83 year old male, not known to [facility]. Patient presented for chest pain and was a transfer from [facility]. PMH of CAD in [place] artery s/p PCI of LCx in December 03 followed byin-stent restenosis of Lcx in February 2024 with PCI,(hx of Circ stent in 2014 , Aortic stenosis, is ondialysis Saturday, Saturday, Saturday. Urology is consulted for hematuria. Patient to have heart catheterization done on Saturday. Patient seen and examined while at dialysis. He reports he began with gross hematuria today. He also reports dysuria. He notes initially had difficulty starting his stream but that has resolved. No previous episodes of hematuria. He did have a kidney stone many years ago. No previous urologist. He is a former smoker. No family history of bladder or renal cancer. He is ESRD and makes little urine.He denies fevers or chills. Review of Systems See HPI for pertinent positives and negatives. All other systems reviewed and negative. Physical Exam Vitals and Measurements T: 36.6 C (Skin) HR: 84 (Monitored) RR: 18 BP: 113/71 SpO2: 95% HT: 170 cm WT: 78 kg BMI: 27.68 Weight Dosing Weight: 78 kg (05/08/24) Dosing Weight: 80 kg (05/08/24) GENERAL: 83 year old male appears to be in no acute distress. No family present. SKIN: warm and dry. No rashes noted. HEENT: mucous membranes moist. LUNGS: no use of accessory muscles. ABDOMEN: Soft, non distended, non tender MUSCULOSKELETAL: Moves all extremities x 4. VASCULAR: Noedema. NEUROLOGICAL: A&O x3. No focal deficits. Assisted device none Lab Results 05/08 07:23 WBC: 8.9 Hgb: 10.5 L Hct: 32.1 L Platelet: 164 Neutrophil %: 80.5 H Protime: 11.4 PT International Ratio: 1.0 Glucose Level: 97 Sodium Level: 142 Potassium Level: 5.0 BUN: 64.0 H Creatinine Lvl (s): 7.45 H Assessment/Plan 1. Gross hematuria Patient reports gross hematuria began this AM. He reports some dysuria. History of kidney stone many years ago. He feels he is emptying his bladder. Currently getting dialysis. We will get bladder scan to rule out retention. Will get urinalysis and culture to check for UTI. CT abd/pelvis ordered to evaluate for stones or possible etiologies of hematuria. As long as PVR is less than 300 can hold off on inserting de santiago catheter at this time and just follow patient closely. If hematuria worsens or he is in urinary retention he will require de santiago catheter. Orders: Bladder Scan, 05/08/24 14:55:00 EDT, now, Stop Date 05/08/24 14:55:[address] Abdomen and Pelvis w/o contrast, 05/08/24 15:00:00 EDT, 05/08/24 15:00:00 EDT, Routine, gross hematuria, history of kidney stones, Wt k, non-[place] facility, CCU Urinalysis w/ C&S if Indicated, 05/08/24 14:53:00 EDT, Routine, Urine, Clean Catch, Once, NurseCollect, Preferred Lab: Other lab service, Stop date 05/08/24 14:54:00 EDT Urine Culture, 05/08/24 14:54:00 EDT, Routine, Urine, Clean Catch, Stop date 05/08/24 14:54:00 EDT,Nurse collect, Preferred Lab: Other lab service Urology will follow. Problem List/Past Medical History Ongoing Anemia CAD IN [place] ARTERY Chronic heart failure with preserved ejection fraction (HFpEF) CKD (chronic kidney disease) DYSLIPIDEMIA ESRD on dialysis GERD - Gastro-esophageal reflux disease Gross hematuria H/O NON-ST ELEVATION MYOCARDIAL INFARCTION (NSTEMI) HYPERTENSION, BENIGN Mild aortic regurgitation Mild mitral regurgitation Moderate aortic stenosis OVERWEIGHT (BMI 25.0-29.9) Parathyroidectomy PREOPERATIVE CLEARANCE PVC (PREMATURE VENTRICULAR CONTRACTION) PVCs (premature ventricular contractions) Smoker Procedure/Surgical History Cardiovascular stress testin11/18/23 PCI - Percutaneous coronary intervention: 09/06/14 Cardiac catheterization, combined right and left heart: 09/06/14 Placement of stent in coronary artery: 09/04/14 Excision of parathyroid gland: 2012 Cystoscopic laser lithotripsy of ureteric calculus: 1960 Hand Blood transfusion Hernia repair Colonoscopy Endoscopy Medications Inpatient aspirin 81 mg oral delayed release tablet, 81 mg= 1 tab(s), Oral, Daily atorvastatin, 40 mg= 1 tab(s), Oral, qHS Dextrose 50% IV Push, 12.5 gram(s)= 25 mL, IV Push, AsDirected, PRN Heparin for IV 25,000 unit(s) [12 unit(s)/kg/hr] + Dextrose 5% Premix Diluent 250 mL Heparin HBW CARDIAC Bolus 5000 units/mL, 4000 unit(s)= 0.8 mL, 60 unit(s)/kg, IV Push, q6h, PRN isosorbide mononitrate 30 mg oral tablet, extended release, 30 mg= 1 tab(s), Oral, qAM Lasix, 40 mg= 1 tab(s), Oral, qDay magnesium sulfate for IV bolus, 2 gram(s)= 50 mL, IV Piggyback, AsDirected, PRN magnesium sulfate for IV bolus, 4 gram(s)= 100 mL, IV Piggyback, AsDirected, PRN magnesium sulfate for IV bolus metoprolol succinate 25 mg oral TABLET extended release, 50 mg= 1 tab(s), Oral, qDay nitroglycerin 0.4 mg sublingual tablet, 0.4 mg= 1 tab(s), Sublingual, q5min, PRN pantoprazole, 40 mg= 1 tab(s), Oral, qDay potassium chloride, 20 mEq= 1 tab(s), Oral, AsDirected, PRN potassium chloride, 40 mEq= 2 tab(s), Oral, AsDirected, PRN potassium chloride, 40 mEq= 2 tab(s), Oral, AsDirected, PRN potassium chloride bolus, 20 mEq= 100 mL, IV Piggyback, AsDirected, PRN Home aspirin 81 mg oral delayed release tablet, 81 mg= 1 tab(s), Oral, Daily, 4 refills atorvastatin 40 mg oral tablet, 40 mg= 1 tab(s), Oral, qHS, 4 refills calcium acetate 667 mg oral capsule, 1334 mg= 2 cap(s), Oral, TIDAC isosorbide mononitrate 30 mg oral tablet, extended release, 30 mg= 1 tab(s), Oral, qAM, 2 refills Lasix 40 mg oral tablet, 40 mg= 1 tab(s), Oral, qDay, 3 refills metoprolol succinate 25 mg oral TABLET extended release, 50 mg= 2 tab(s), Oral, qDay nitroglycerin 0.4 mg sublingual tablet, 0.4 mg= 1 tab(s), Sublingual, q5min, PRN, 1 refills pantoprazole 40 mg oral enteric coated tablet, 1 tab(s), Oral, qDay, 2 refills Plavix 75 mg oral tablet, 75 mg= 1 tab(s), Oral, qDay, 4 refills Allergies lisinopril Cough Social History Smoking Status - 09/04/2014 Former smoker Alcohol Use: Current. Type: Liquor. Frequency: 1-2 times per week., 02/24/2024 Use: Current. Type: Liquor. Frequency: 1-2 times per week., 11/06/2018 Nutrition/Health Caffeine intake amount: 1-2 cups per day., 11/30/2021 Substance Abuse Use: Never., 11/06/2018 Tobacco Nicotine Use: Former smoker, quit more than 30 days ago. Type: Cigarettes. Tobacco use per day: 30.Number of years: 17., 04/03/2024 Nicotine Use: Former smoker, quit more than 30 days ago., 02/24/2024 Family History Cancer: Mother and Father. Cancer: Brother. Heart disease: Father. Health Status Family Member(s) Immunizations pneumococcal 13-valent conjugate vaccine: 0 unknown unit (12/24/14) pneumococcal 23-valent vaccine(Pneumovax: 0.5 unknown unit (03/04/17) SARS-CoV-2 (COVID-19) mRNA-1273 vaccine: 0.25 unknown unit (07/31/21) SARS-CoV-2 (COVID-19) mRNA-1273 vaccine: 0.5 unknown unit (11/08/20) SARS-CoV-2 (COVID-19) mRNA-1273 vaccine: 0.5 unknown unit (10/11/20) tetanus/diphth/pertuss (Tdap) adult/adol: 0.5 mL (10/31/18) Digitally Signed by LIEN LEUNG on 05/08/2024 03:05 PM [facility] [id number] Evaluation + Plan noteExtracted from: Title:Cardiology History and Physical Author:ANDER ELKINS MD Date:05/08/24 NSTEMI CAD and [place] artery artery s/p PCI of LCx in December 03 followed by in-stent restenosis of Lcx in February 2024 with PCI, (hx of Circ stent in 2014) Moderate aortic stenosis End-stage renal disease on HD-MWF HFmrEF Dyslipidemia GERD Chronic cough DVT prophylaxis CODE STATUS Admit MTS CCU team Refer to nephrology for dialysis Keep n.p.o. for possible heart cath Aspirin,plavix, atorvastatin, metoprolol Restart home medications as tolerated Keep potassium greater than 4 magnesium greater than 2 Repeat echocardiogram Serial troponins and EKGs Check TSH, A1c, lipid profile Sublingual GTN for chest pain 0.4 MGs. Can give every 5 minutes to maximum 3 doses Can add morphine for chest pain as required Prophylaxis heparin by weight CODE STATUS-full code Addendum by JOANN RICK MD on May 08, 2024 19:00:16 EDT I have personally seen, examined, and evaluated the patient. I have reviewed the resident's documentation and agree with the resident's findings and plan as documented, unless otherwise stated. Future Appointments Appointment Date:06/05/2024 02:15:00 PM Scheduled Provider: Location:[facility] Appointment Type:[facility] 09-27-2024 Nephrology Consult note Date of Service May 08, 2024 Reason for Consultation End-stage renal disease History of Present Illness Patient is 83 years old. History of end-stage renal disease on hemodialysis on Wednesdays and Fridays in [place]. Last treatment was on Saturday. He is compliant with dialysis. Patient developed chest pressure with associated nausea and radiation to his jaw yesterday. Similar to prior cardiac events. Patient treated in outside ER with nitroglycerin. Last intervention was in February 2024 at which time he had PCI to circumflex. Patient also has a history of known aortic stenosis. Troponin levels have progressively increased. There are 54 on admission and most recently 196. Review of Systems As described above, patient has a known history of coronary disease. He presented with chest pressure with radiation to his jaw. He did have associated nausea with emesis x 2. No significant shortness of breath. No recent cough or fevers. No headaches or lightheadedness. No blurred vision. No focalneurologic deficits. He is dialysis dependent and had his last treatment on Saturday. No significant edema. No myalgias or arthralgias. No skin rashes. Physical Exam Vitals and Measurements T: 36.6 C (Oral) HR: 25 (Apical) RR: 18 BP: 168/62 SpO2: 94% HT: 170 cm WT: 80 kg BMI: 27.68 Weight Dosing Weight: 80 kg (05/08/24) General: No distress currently HEENT: Mucosa was moist, sclera anicteric, extraocular muscles intact, JVD present Lungs: Clear bilaterally with no crackles wheezes or rhonchi Heart: Regular with no murmurs rubs or gallops Abdomen: Positive bowel sounds, soft, no palpable masses Access: Right forearm AV fistula with positive bruit and thrill Extremities: No edema, pulses 1+ in dorsalis pedis arteries Skin: No rashes, normal turgor Lab Results 05/08 07:23 WBC: 8.9 Hgb: 10.5 L Hct: 32.1 L Platelet: 164 Neutrophil %: 80.5 H Protime: 11.4 PT International Ratio: 1.0 Glucose Level: 97 Sodium Level: 142 Potassium Level: 5.0 BUN: 64.0 H Creatinine Lvl (s): 7.45 H Assessment/Plan 1. End-stage renal disease: Patient is compliant with his dialysis. Last treatment was on Saturday. Plan dialysis again today for clearance and fluid removal. If blood pressure remains elevated possibly could require an extra treatment tomorrow. AV fistula is patent. 2. Unstable angina: Patient presented with chest pressure. Troponins are increasing. He has known coronary artery disease with PCI as recently as February. Currently being evaluated by cardiology. Possible heart catheterization. 3. Hypertension: Blood pressure elevated. Will reassess after fluid removal with dialysis. He does take metoprolol and isosorbide as an outpatient. 3. Hyperkalemia: Potassium generous. Will treat with dialysis today. Problem List/Past Medical History Ongoing Anemia CAD IN [place] ARTERY Chronic heart failure with preserved ejection fraction (HFpEF) CKD (chronic kidney disease) DYSLIPIDEMIA ESRD on dialysis GERD - Gastro-esophageal reflux disease H/O NON-ST ELEVATION MYOCARDIAL INFARCTION (NSTEMI) HYPERTENSION, BENIGN Mild aortic regurgitation Mild mitral regurgitation Moderate aortic stenosis OVERWEIGHT (BMI 25.0-29.9) Parathyroidectomy PREOPERATIVE CLEARANCE PVC (PREMATURE VENTRICULAR CONTRACTION) PVCs (premature ventricular contractions) Smoker Procedure/Surgical History Cardiovascular stress testin11/18/23 PCI - Percutaneous coronary intervention: 09/06/14 Cardiac catheterization, combined right and left heart: 09/06/14 Placement of stent in coronary artery: 09/04/14 Excision of parathyroid gland: 2012 Cystoscopic laser lithotripsy of ureteric calculus: 1959 Hand Blood transfusion Hernia repair Colonoscopy Endoscopy Medications Inpatient aspirin 81 mg oral delayed release tablet, 81 mg= 1 tab(s), Oral, Daily atorvastatin, 40 mg= 1 tab(s), Oral, qHS Dextrose 50% IV Push, 12.5 gram(s)= 25 mL, IV Push, AsDirected, PRN epoetin alpha (Retacrit / Procrit) 4,000 unit(s)/mL (DIALYSIS), 4000 unit(s)= 1 mL, IV Push, prep pharm Heparin for IV 25,000 unit(s) [12 unit(s)/kg/hr] + Dextrose 5% Premix Diluent 250 mL Heparin HBW CARDIAC Bolus 5000 units/mL, 4000 unit(s)= 0.8 mL, 60 unit(s)/kg, IV Push, q6h, PRN isosorbide mononitrate 30 mg oral tablet, extended release, 30 mg= 1 tab(s), Oral, qAM Lasix, 40 mg= 1 tab(s), Oral, qDay magnesium sulfate for IV bolus, 2 gram(s)= 50 mL, IV Piggyback, AsDirected, PRN magnesium sulfate for IV bolus, 4 gram(s)= 100 mL, IV Piggyback, AsDirected, PRN magnesium sulfate for IV bolus metoprolol succinate 25 mg oral TABLET extended release, 50 mg= 1 tab(s), Oral, qDay nitroglycerin 0.4 mg sublingual tablet, 0.4 mg= 1 tab(s), Sublingual, q5min, PRN pantoprazole, 40 mg= 1 tab(s), Oral, qDay potassium chloride, 20 mEq= 1 tab(s), Oral, AsDirected, PRN potassium chloride, 40 mEq= 2 tab(s), Oral, AsDirected, PRN potassium chloride, 40 mEq= 2 tab(s), Oral, AsDirected, PRN potassium chloride bolus, 20 mEq= 100 mL, IV Piggyback, AsDirected, PRN Home aspirin 81 mg oral delayed release tablet, 81 mg= 1 tab(s), Oral, Daily, 4 refills atorvastatin 40 mg oral tablet, 40 mg= 1 tab(s), Oral, qHS, 4 refills calcium acetate 667 mg oral capsule, 1334 mg= 2 cap(s), Oral, TIDAC isosorbide mononitrate 30 mg oral tablet, extended release, 30 mg= 1 tab(s), Oral, qAM, 2 refills Lasix 40 mg oral tablet, 40 mg= 1 tab(s), Oral, qDay, 3 refills metoprolol succinate 25 mg oral TABLET extended release, 50 mg= 2 tab(s), Oral, qDay nitroglycerin 0.4 mg sublingual tablet, 0.4 mg= 1 tab(s), Sublingual, q5min, PRN, 1 refills pantoprazole 40 mg oral enteric coated tablet, 1 tab(s), Oral, qDay, 2 refills Plavix 75 mg oral tablet, 75 mg= 1 tab(s), Oral, qDay, 4 refills Allergies lisinopril Cough Social History Smoking Status - 09/04/2014 Former smoker Alcohol Use: Current. Type: Liquor. Frequency: 1-2 times per week., 02/24/2024 Use: Current. Type: Liquor. Frequency: 1-2 times per week., 11/06/2018 Nutrition/Health Caffeine intake amount: 1-2 cups per day., 11/30/2021 Substance Abuse Use: Never., 11/06/2018 Tobacco Nicotine Use: Former smoker, quit more than 30 days ago. Type: Cigarettes. Tobacco use per day: 30.Number of years: 17., 04/03/2024 Nicotine Use: Former smoker, quit more than 30 days ago., 02/24/2024 Family History Cancer: Mother and Father. Cancer: Brother. Heart disease: Father. Health Status Family Member(s) Immunizations pneumococcal 13-valent conjugate vaccine: 0 unknown unit (12/24/14) pneumococcal 23-valent vaccine(Pneumovax: 0.5 unknown unit (03/04/17) SARS-CoV-2 (COVID-19) mRNA-1273 vaccine: 0.25 unknown unit (07/31/21) SARS-CoV-2 (COVID-19) mRNA-1273 vaccine: 0.5 unknown unit (11/08/20) SARS-CoV-2 (COVID-19) mRNA-1273 vaccine: 0.5 unknown unit (10/11/20) tetanus/diphth/pertuss (Tdap) adult/adol: 0.5 mL (10/31/18) Digitally Signed by JANA SINGH MD on 05/08/2024 08:52 AM [facility] [id number] NoteSINUS RHYTHM PROLONGED DC INTERVAL RIGHT BUNDLE BRANCH BLOCK Electronic Signature: CRISTIANO PLATT MD 05/10/2024 14:00:56[facility] 09-27-2024 History and physical note Date of Service 05/08/2024 Chief Complaint Chest pain History of Present Illness [employer] CLAIRE ANDINO MD 84-year-old male admitted to CCU with chest pain. Patient is a transfer from [facility]. Began having chest pain around 11 AM today. Chest pain is central radiates to his left jaw. Some improvement with nitro given at [facility]. Symptoms feel similar to prior cardiac events. Had 2 episodes of vomiting. Has persistent chronic cough. No fevers or chills. No shortness of breath.Chest pain chest pain. CAD in [place] artery s/p PCI of LCx in December 03 followed by in-stent restenosis of Lcx in February 2024 with PCI,(hx of Circ stent in 2014 , Aortic stenosis, is on dialysis Saturday, Saturday, Saturday. Last dialysis was Saturday. At [facility] [place] T: 36.7 C (Oral) HR: 75 RR: 16 BP: 143/69 SpO2: 93%. Showed Hb 10.3, WBC 8.6, platelets 168. BMP showed sodium 138, potassium 4.5, CO2 32, bun 62, creat 7.31. HsTrop 54, repeat 86. Chest x-ray showed cardiomegaly with mild central vascular congestion. Last echo 02/25/2024 EF 43%. Grade 2 diastolic function. Moderate aortic stenosis. peak velocity 2.8m/s. Review of Systems CONSTITUTIONAL: No weight loss, fever, chills, weakness or fatigue. HEENT: Eyes: No visual loss, blurred vision, double vision or yellow sclerae. Ears, Nose, Throat: No hearing loss, sneezing, congestion, runny nose or sore throat. SKIN: No rash or itching. CARDIOVASCULAR: Having chest pain radiating to jaw RESPIRATORY: No shortness of breath, cough or sputum. GASTROINTESTINAL: No anorexia, nausea, vomiting or diarrhea. No abdominal pain or blood. NEUROLOGICAL: No headache, dizziness, syncope, paralysis, ataxia, numbness or tingling in the extremities. No change in bowel or bladder control. MUSCULOSKELETAL: No muscle, back pain, joint pain or stiffness. HEMATOLOGIC: No anemia, bleeding or bruising. LYMPHATICS: No enlarged nodes. No history of splenectomy. PSYCHIATRIC: No history of depression or anxiety. ENDOCRINOLOGIC: No reports of sweating, cold or heat intolerance. No polyuria or polydipsia. ALLERGIES: No history of asthma, hives, eczema or rhinitis. Physical Exam Vitals and Measurements Weight Dosing Weight: 80 kg (05/08/24) GENERAL: Awake, alert, comfortable appearing, in no acute distress. HEENT: Head is normocephalic and atraumatic. Pupils are equal, round, and reactive to light. Extraocular muscles are intact. No nasal discharge. NECK: Supple with no cervical lymphadenopathy. HEART: Regular rate without murmur, rub, or gallop. LUNGS: Equal breath sounds bilaterally with no wheezing, rales, or rhonchi. There is no chest wall tenderness or instability. ABDOMEN: Bowel sounds are present. Abdomen is soft, nontender. No rebound, no guarding, no rigidity. There are no palpable masses. There is no flank pain on exam. EXTREMITIES: Strong peripheral pulses. There is no clubbing, no cyanosis, and no edema. SKIN: No rash. Imaging Results and Diagnostics Chest x-ray showed cardiomegaly with mild central vascular congestion EKG Sinus rhythm Prolonged DC interval Right bundle branch block Inferior infarct, age indeterminate Assessment/Plan NSTEMI CAD and [place] artery artery s/p PCI of LCx in December 03 followed by in-stent restenosis of Lcx in February 2024 with PCI, (hx of Circ stent in 2014) Moderate aortic stenosis End-stage renal disease on HD-MWF HFmrEF Dyslipidemia GERD Chronic cough DVT prophylaxis CODE STATUS Admit MTS CCU team Refer to nephrology for dialysis Keep n.p.o. for possible heart cath Aspirin,plavix, atorvastatin, metoprolol Restart home medications as tolerated Keep potassium greater than 4 magnesium greater than 2 Repeat echocardiogram Serial troponins and EKGs Check TSH, A1c, lipid profile Sublingual GTN for chest pain 0.4 MGs. Can give every 5 minutes to maximum 3 doses Can add morphine for chest pain as required Prophylaxis heparin by weight CODE STATUS-full code Problem List/Past Medical History Ongoing Anemia CAD IN [place] ARTERY Chronic heart failure with preserved ejection fraction (HFpEF) CKD (chronic kidney disease) DYSLIPIDEMIA ESRD on dialysis GERD - Gastro-esophageal reflux disease H/O NON-ST ELEVATION MYOCARDIAL INFARCTION (NSTEMI) HYPERTENSION, BENIGN Mild aortic regurgitation Mild mitral regurgitation Moderate aortic stenosis OVERWEIGHT (BMI 25.0-29.9) Parathyroidectomy PREOPERATIVE CLEARANCE PVC (PREMATURE VENTRICULAR CONTRACTION) PVCs (premature ventricular contractions) Smoker Procedure/Surgical History Cardiovascular stress testin11/18/23 PCI - Percutaneous coronary intervention: 09/06/14 Cardiac catheterization, combined right and left heart: 09/06/14 Placement of stent in coronary artery: 09/04/14 Excision of parathyroid gland: 2012 Cystoscopic laser lithotripsy of ureteric calculus: 1960 Hand Blood transfusion Hernia repair Colonoscopy Endoscopy Medications Home Medications (9) Active aspirin 81 mg oral delayed release tablet 81 mg = 1 tab(s), Oral, Daily atorvastatin 40 mg oral tablet 40 mg = 1 tab(s), Oral, qHS calcium acetate 667 mg oral capsule 2,001 mg = 3 cap(s), Oral isosorbide mononitrate 30 mg oral tablet, extended release 30 mg = 1 tab(s), Oral, qAM Lasix 40 mg oral tablet 40 mg = 1 tab(s), Oral, qDay metoprolol succinate 25 mg oral TABLET extended release 50 mg = 2 tab(s), Oral, qDay nitroglycerin 0.4 mg sublingual tablet 0.4 mg = 1 tab(s), PRN, Sublingual, q5min pantoprazole 40 mg oral enteric coated tablet 1 tab(s), Oral, qDay Plavix 75 mg oral tablet 75 mg = 1 tab(s), Oral, qDay Allergies lisinopril Cough Social History Smoking Status - 09/04/2014 Former smoker Alcohol Use: Current. Type: Liquor. Frequency: 1-2 times per week., 02/24/2024 Use: Current. Type: Liquor. Frequency: 1-2 times per week., 11/06/2018 Nutrition/Health Caffeine intake amount: 1-2 cups per day., 11/30/2021 Substance Abuse Use: Never., 11/06/2018 Tobacco Nicotine Use: Former smoker, quit more than 30 days ago. Type: Cigarettes. Tobacco use per day: 30.Number of years: 17., 04/03/2024 Nicotine Use: Former smoker, quit more than 30 days ago., 02/24/2024 Family History Cancer: Mother and Father. Cancer: Brother. Heart disease: Father. Health Status Family Member(s) Immunizations pneumococcal 13-valent conjugate vaccine: 0 unknown unit (12/24/14) pneumococcal 23-valent vaccine(Pneumovax: 0.5 unknown unit (03/04/17) SARS-CoV-2 (COVID-19) mRNA-1273 vaccine: 0.25 unknown unit (07/31/21) SARS-CoV-2 (COVID-19) mRNA-1273 vaccine: 0.5 unknown unit (11/08/20) SARS-CoV-2 (COVID-19) mRNA-1273 vaccine: 0.5 unknown unit (10/11/20) tetanus/diphth/pertuss (Tdap) adult/adol: 0.5 mL (10/31/18) Code Status No qualifying data available. Digitally Signed by ANDER SANCHEZ MD on 05/08/2024 06:53 AM [facility] [id number] Note ORIGINAL EXAMINATION: ONE XRAY VIEW OF THE CHEST 05/08/2024 4:27 am COMPARISON: Chest x-ray 02/24/2024 HISTORY: ORDERING SYSTEM PROVIDED HISTORY: Reason for Exam: chest pain started around 11 pm states took 3 doses of nitro, little relief chest pain FINDINGS: Cardiomediastinal contour stable. Atherosclerosis of the aorta and bilateral common carotid arteries. Perihilar fullness. No focal consolidation or pulmonary edema. No pneumothorax or pleural effusion. No acute osseous abnormality. IMPRESSION: Cardiomegaly with mild central vascular congestion. I have personally reviewed the images of this examination, and agree with the resident's findings and interpretation. Interpreted by: Frnacesco Rios MD Preliminary Report By: Bartolo Tapia Electronically signed By Francesco Rios MD Dictated Date: 05/08/2024 4:29:58 AM Prelim Date: 05/08/2024 4:32:47 AM Sign Date: 05/08/2024 4:41:08 AM [facility]ing [facility] Note Sinus rhythm Prolonged DC interval Right bundle branch block Inferior infarct, age indeterminate Electronic Signature: ROBERTA TIRADO MD 05/08/2024 04:12:41[facility] 09-19-2024 Telephone encounter Note* Telephone Encounter - Anahi Galindo RN - 04/30/2024 3:04 PM EDT Pt called and is notified of providers results and instructions. Pt voices understanding. Anahi Galindo RN [facility]09-19-2024 Miscellaneous Notes* Telephone Encounter - Anahi Galindo RN - 04/30/2024 3:04 PM EDT Pt called and is notified of providers results and instructions. Pt voices understanding. Anahi Galindo RN * Telephone Encounter - Christine Sarabia MA - 04/30/2024 2:29 PM EDT Called and left message on patients voicemail to return call to the office and ask to speak with a FM triage nurse. Requested paperwork has been faxed to Dr. Zayas at [phone] as requested. Christine Sarabia MA * Telephone Encounter - Deanne Shen APRN.CNP - 04/30/2024 1:21 PM EDT Please let patient know his US shows cysts on his kidneys. Recommendation to repeat in 1 year. Results have been sent to Dr. Zayas as well. Please forward results to Dr. Zayas for review. documented in this encounterAsht[facility]ula [facility]09-[facility] Telephone encounter Note * Telephone Encounter - Christine Sarabia MA - 04/30/2024 2:29 PM EDT Called and left message on patients voicemail to return call to the office and ask to speak with a FM triage nurse. Requested paperwork has been faxed to Dr. Zayas at [phone] as requested. Christine Sarabia MA [facility]09-19-2024 Telephone encounter Note* Telephone Encounter - Deanne Shen APRN.CNP - 04/30/2024 1:21 PM EDT Please let patient know his US shows cysts on his kidneys. Recommendation to repeat in 1 year. Results have been sent to Dr. Zayas as well. Please forward results to Dr. Zayas for review. [facility]09-19-2024 History of Present illness Narrative* Karuna Pineda RDMS - 04/30/2024 10:00 AM EDT Radiology Service Progress Note PATIENT NAME: Luis Manuel Duran JR DATE OF SERVICE: May 01, 2024 TIME: 8:56 AM PATIENT IDENTITY VERIFICATION COMPLETED USING TWO (2) IDENTIFIERS: Name and Date of confirmedby patient verbally. FALL SCREENING: Has the patient had 2 falls in the last year or 1 fall with injury or currently using an Ambulatory Assistive Device (Walker, Cane, Wheelchair, Crutches, etc.)? No PATIENT GENDER DATA: Male PATIENT RELEVANT IMPLANT DATA REVIEWED: Not Applicable PATIENT PRESENTS WITH AN IMPLANTABLE OR ATTACHED SENIOR NETWORK SECURITY ARCHITECT: No RADIOLOGY DEPARTMENT: Ultrasound PERIPHERAL IV DATA: Not applicable SIGNED BY: Karuna Pineda RDMS RVT May 01, 2024 8:56 AM documented in this encounterAshtabula [facility] Center09-19-2024 NoteHNO ID: [id number] Author: KARUNA PINEDA RDMS Service: ? Author Type: Cigarette Vendor Type: Progress Notes Filed: 05/01/2024 08:56 Note Text: Radiology Service Progress Note PATIENT NAME: Luis Maunel Duran JR DATE OF SERVICE: May 01, 2024 TIME: 8:56 AM PATIENT IDENTITY VERIFICATION COMPLETED USING TWO (2) IDENTIFIERS: Name and Date of confirmed by patient verbally. FALL SCREENING: Has the patient had 2 falls in the last year or 1 fall with injury or currently using an Ambulatory Assistive Device (Walker, Cane, Wheelchair, Crutches, etc.)? No PATIENT GENDER DATA: Male PATIENT RELEVANT IMPLANT DATA REVIEWED: Not Applicable PATIENT PRESENTS WITH AN IMPLANTABLE OR ATTACHED SENIOR NETWORK SECURITY ARCHITECT: No RADIOLOGY DEPARTMENT: Ultrasound PERIPHERAL IV DATA: Not applicable SIGNED BY: Karuna Pineda RDMS RVT May 01, 2024 8:56 [facility]09-13-2024 Telephone encounter Note* Telephone Encounter - Imani Muller MA - 04/24/2024 10:49 AM EDT Pt notified. Transferred to [facility] to set up US. Imani Muller MA [facility]09-13-2024 Miscellaneous Notes* Telephone Encounter - Imani Muller MA - 04/24/2024 10:49 AM EDT Pt notified. Transferred to [facility] to set up US. Imani Muller MA * Telephone Encounter - Deanne Shen APRN.CNP - 04/24/2024 10:39 AM EDT Please let patient know his CT shows a renal cyst and follow up is recommended with US. I have placed the order and he will need to schedule testing. documented in this encounterAshtabula [facility] Center09-13-2024 Telephone encounter Note * Telephone Encounter - Deanne Shen APRN.CNP - 04/24/2024 10:39 AM EDT Please let patient know his CT shows a renal cyst and follow up is recommended with US. I have placed the order and he will need to schedule testing. [facility]09-10-2024 History of Present illness Narrative* Reef José Antonio Mari RT(Merna) - 04/21/2024 9:20 AM EDT Radiology Service Progress Note PATIENT NAME: Luis Manuel Duran JR DATE OF SERVICE: April 21, 2024 TIME: 2:00 PM PATIENT IDENTITY VERIFICATION COMPLETED USING TWO (2) IDENTIFIERS: Name and Date of confirmedby patient verbally. FALL SCREENING: Has the patient had 2 falls in the last year or 1 fall with injury or currently using an Ambulatory Assistive Device (Walker, Cane, Wheelchair, Crutches, etc.)? No PATIENT GENDER DATA: Male PATIENT RELEVANT IMPLANT DATA REVIEWED: Yes PATIENT PRESENTS WITH AN IMPLANTABLE OR ATTACHED SENIOR NETWORK SECURITY ARCHITECT: No RADIOLOGY DEPARTMENT: CT; Exam(s) Completed: Abdomen/Pelvis PERIPHERAL IV DATA: Not applicable SIGNED BY: RT Eduardo(R) April 21, 2024 2:00 PM documented in this encounterAshtabula County Medical Center09-10-2024 NoteHNO ID: [id number] Author: JOSÉ ANTONIO SMALL RT(Merna) Service: ? Author Type: Agriculture Mechanic Type: Progress Notes Filed: 04/21/2024 14:00 Note Text: Radiology Service Progress Note PATIENT NAME: Luis Manuel Duran JR DATE OF SERVICE: April 21, 2024 TIME: 2:00 PM PATIENT IDENTITY VERIFICATION COMPLETED USING TWO (2) IDENTIFIERS: Name and Date of confirmed by patient verbally. FALL SCREENING: Has the patient had 2 falls in the last year or 1 fall with injury or currently using an Ambulatory Assistive Device (Walker, Cane, Wheelchair, Crutches, etc.)? No PATIENT GENDER DATA: Male PATIENT RELEVANT IMPLANT DATA REVIEWED: Yes PATIENT PRESENTS WITH AN IMPLANTABLE OR ATTACHED SENIOR NETWORK SECURITY ARCHITECT: No RADIOLOGY DEPARTMENT: CT; Exam(s) Completed: Abdomen/Pelvis PERIPHERAL IV DATA: Not applicable SIGNED BY: RT Eduardo(R) April 21, 2024 2:00 [facility] Telephone encounter Note* Telephone Encounter - Trevin Bermeo MA - 04/14/2024 10:31 AM EDT Pt notified and verbalized understanding Trevin Bermeo MA [facility]09-03-2024 Miscellaneous Notes* Telephone Encounter - Trevin Bermeo MA - 04/14/2024 10:31 AM EDT Pt notified and verbalized understanding Trevin Bermeo MA * Telephone Encounter - Deanne Shen APRN.CNP - 04/14/2024 8:07 AM EDT Please let patient know their labs are stable. documented in this encounterAshtabula [facility] Center09-03-2024 Telephone encounter Note * Telephone Encounter - Deanne Shen APRN.CNP - 04/14/2024 8:07 AM EDT Please let patient know their labs are stable. [facility] Work Phone: 1(305) 247-578408-30-2024 NoteHNO ID: [id number] Author: DEANNE SHEN APRN.CNP Service: ? Author Type: Nurse Practitioner Type: Progress Notes Filed: 04/10/2024 12:04 Note Text: Chief Complaint Patient presents with: Gas: X 6 weeks Vomiting: On and off X 6 weeks HPI Luis Manuel Duran JR is a 83 year old male who presents here today for Above Complaints.. Patient Past medical history, appointments, medications, allergies reviewed. Previous Medical History PAST MEDICAL HISTORY 12/15/2021: Advance directive discussed with patient Comment: Discussed 12/202110/15/2013: Anemia of chronic disease 07/03/2010: Benign essential tremor 08/01/2005: BPH with obstruction/lower urinary tract symptoms 12/15/2021: Chronic diastolic congestive heart failure (HCC) Comment: seeing cardio 03/04/2017: CKD (chronic kidney disease) stage 4, GFR 15-29 ml/min ([facility]) 03/06/2018: Coronary artery disease involving [place] coronary artery of [place] heart without angina pectoris Comment: Seeing Dr. Horton Cardio Marc 05/29/2021: COVID-19 virus infection Comment: 05/27/2021 No date: Diaphragmatic hernia without mention of obstruction or gangrene Comment: Hiatal hernia 09/24/2023: Elevated alkaline phosphatase level Comment: Elevated bone fraction: NM bone scan 09/2023 was normal. 03/11/2019: Elevated PSA No date: Esophagitis, unspecified 07/11/2023: ESRD (end stage renal disease) on dialysis (HCC) No date: Essential hypertension, benign 12/26/2020: Ex-smoker Comment: Started age 18 up to 1.5 PPD and quit at age 35. 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) 12/15/2021: Living will on file Comment: DPA: Shea () 11/27/2021: Mild aortic stenosis Comment: Seeing Cardio 09/03/2013: Mixed hyperlipidemia No date: Overweight (BMI 25.0-29.9) 05/27/2013: Parathyroid adenoma Comment: parathyroidectomy 05/27/13 No date: Personal history of colonic polyps Comment: Colon polyps 03/04/2017: Primary hyperparathyroidism (HCC) Comment: 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: 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 06/2010: TIA (transient ischemic attack) No date: Ulcer of esophagus without bleeding 10/15/2013: Vitamin D deficiency Previous Surgical History PAST SURGICAL HISTORY No date: BX/EXC LYMPH NODE OPEN SUPERFICIAL 11/18/2023: CC CORONARY STENT Comment: 2 stents to Left Circ 12/22/2019: COLONOSCOPY 08/2000: COLONOSCOPY FLX DX W/COLLJ SPEC WHEN PFRMD Comment: Colonoscopy 10/19/2008: COLONOSCOPY FLX DX W/COLLJ SPEC WHEN PFRMD 10/19/2008: EGD TRANSORAL BIOPSY SINGLE/MULTIPLE No date: ESOPHAGOGASTRODUODENOSCOPY TRANSORAL DIAGNOSTIC 12/22/2012: ESOPHAGOGASTRODUODENOSCOPY TRANSORAL DIAGNOSTIC Comment: EGD Dr. Marcial 05/21/2018: LAPAROSCOPIC HERNIA REPAIR; Right Comment: recurrent incarcerated direct right inguinal hernia 05/27/2013: PARATHYROIDECTOMY/EXPLORATION PARATHYROIDS Comment: Parathyroid adenoma 01/20/2021: PAST SURGICAL HISTORY OF Comment: supraumbilical ventral hernia No date: RPR 1ST INGUN HRNA AGE 6 YRS/> REDUCIBLE Comment: Hernia repair, inguinal BILATERAL Family History FAMILY HISTORY Problem Relation Age of Onset Colon Cancer Mother Colon Cancer Father Arthritis Mother Heart Father SD * 2 Prostate Cancer Brother Hypertension Brother None Brother Patient Allergies ALLERGIES Allergen Reactions Axid [Nizatidine] Unknown Entex Pse [Pseudoep* Unknown Lisinopril Cough Current Medications Current Outpatient Medications on File Prior to Visit Medication Sig metoprolol tartrate, short acting, (LOPRESSOR) 50 mg tablet 0.5 tablets twice daily. (Patient taking differently: Take 25 mg by mouth once daily.) amLODIPine (NORVASC) 5 mg tablet Take 1 tablet by mouth once daily. (Patient not taking: Reported on 04/10/2024) calcium acetate,phosphat bind, (PHOSLO) 667 mg capsule clopidogrel (PLAVIX) 75 mg tablet Take 1 tablet by mouth every afternoon. atorvastatin (LIPITOR) 40 mg tablet Take 1 tablet by mouth once daily. For cholesterol. calcitriol (ROCALTROL) 0.25 mcg capsule Take 1 capsule by mouth two times a day. calcium citrate (CALCITRATE) 200 mg (950 mg) tab Take 1 tablet by mouth four times daily. ibuprofen (MOTRIN) 200 mg tablet Take 1-2 tablets by mouth every 4 hours as needed for pain. acetaminophen (TYLENOL EXTRA STRENGTH) 500 mg tablet Take 2 tablets by mouth every 6 hours as needed for pain. furosemide (LASIX) 80 mg tablet 1 tablet once daily. Per Cardio[facility] (Patient taking differently: 40 mg once daily. Per [facility]) pantoprazole DR (PROTONIX) 40 mg tablet Take 40 mg by mouth once daily. Take (more content not included)...[facility]08-30-2024 History of Present illness Narrative* Deanne Shen APRN.MAMMOGRAPHER - 04/10/2024 11:44 AM EDT Chief Complaint Patient presents with: Gas: X 6 weeks Vomiting: On and off X 6 weeks HPI Luis Manuel Duran JR is a 83 year old male who presents here today for Above Complaints.. Patient Past medical history, appointments, medications, allergies reviewed. Previous Medical History PAST MEDICAL HISTORY 12/15/2021: Advance directive discussed with patient Comment: Discussed 12/202110/15/2013: Anemia of chronic disease 07/03/2010: Benign essential tremor 08/01/2005: BPH with obstruction/lower urinary tract symptoms 12/15/2021: Chronic diastolic congestive heart failure (HCC) Comment: seeing cardio 03/04/2017: CKD (chronic kidney disease) stage 4, GFR 15-29 ml/min ([facility]) 03/06/2018: Coronary artery disease involving [place] coronary artery of [place] heart without angina pectoris Comment: Seeing Dr. Horton Cardio Marc 05/29/2021: COVID-19 virus infection Comment: 05/27/2021 No date: Diaphragmatic hernia without mention of obstruction or gangrene Comment: Hiatal hernia 09/24/2023: Elevated alkaline phosphatase level Comment: Elevated bone fraction: NM bone scan 09/2023 was normal. 03/11/2019: Elevated PSA No date: Esophagitis, unspecified 07/11/2023: ESRD (end stage renal disease) on dialysis ([facility]) No date: Essential hypertension, benign 12/26/2020: Ex-smoker Comment: Started age 18 up to 1.5 PPD and quit at age 35. No date: Family history of malignant neoplasm of gastrointestinal tract No date: GERD without esophagitis Comment: Gastroesophageal reflux 05/29/2021: History of COVID-19 Comment: 05/27/2021 03/06/2018: History of non-ST elevation myocardial infarction (NSTEMI) Comment: 09/06/14-- stent 10/15/2013: 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 deficiency ([facility]) 12/15/2021: Living will on file Comment: DPA: Shea () 11/27/2021: Mild aortic stenosis Comment: Seeing Cardio 09/03/2013: Mixed hyperlipidemia No date: Overweight (BMI 25.0-29.9) 05/27/2013: Parathyroid adenoma Comment: parathyroidectomy 05/27/13 No date: Personal history of colonic polyps Comment: Colon polyps 03/04/2017: Primary hyperparathyroidism ([facility]) Comment: 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: 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 06/2010: TIA (transient ischemic attack) No date: Ulcer of esophagus without bleeding 10/15/2013: Vitamin D deficiency Previous Surgical History PAST SURGICAL HISTORY No date: BX/EXC LYMPH NODE OPEN SUPERFICIAL 11/18/2023: CC CORONARY STENT Comment: 2 stents to Left Circ 12/22/2019: COLONOSCOPY 08/2000: COLONOSCOPY FLX DX W/COLLJ SPEC WHEN PFRMD Comment: Colonoscopy 10/19/2008: COLONOSCOPY FLX DX W/COLLJ SPEC WHEN PFRMD 10/19/2008: EGD TRANSORAL BIOPSY SINGLE/MULTIPLE No date: ESOPHAGOGASTRODUODENOSCOPY TRANSORAL DIAGNOSTIC 12/22/2012: ESOPHAGOGASTRODUODENOSCOPY TRANSORAL DIAGNOSTIC Comment: EGD Dr. Marcial 05/21/2018: LAPAROSCOPIC HERNIA REPAIR; Right Comment: recurrent incarcerated direct right inguinal hernia 05/27/2013: PARATHYROIDECTOMY/EXPLORATION PARATHYROIDS Comment: Parathyroid adenoma 01/20/2021: PAST SURGICAL HISTORY OF Comment: supraumbilical ventral hernia No date: RPR 1ST INGUN HRNA AGE 6 YRS/> REDUCIBLE Comment: Hernia repair, inguinal BILATERAL Family History FAMILY HISTORY Problem Relation Age of Onset Colon Cancer Mother Colon Cancer Father Arthritis Mother Heart Father SD * 2 Prostate Cancer Brother Hypertension Brother None Brother Patient Allergies ALLERGIES Allergen Reactions Axid [Nizatidine] Unknown Entex Pse [Pseudoep* Unknown Lisinopril Cough Current Medications Current Outpatient Medications on File Prior to Visit Medication Sig metoprolol tartrate, short acting, (LOPRESSOR) 50 mg tablet 0.5 tablets twice daily. (Patient taking differently: Take 25 mg by mouth once daily.) amLODIPine (NORVASC) 5 mg tablet Take 1 tablet by mouth once daily. (Patient not taking: Reported on 04/10/2024) calcium acetate,phosphat bind, (PHOSLO) 667 mg capsule clopidogrel (PLAVIX) 75 mg tablet Take 1 tablet by mouth every afternoon. atorvastatin (LIPITOR) 40 mg tablet Take 1 tablet by mouth once daily. For cholesterol. calcitriol (ROCALTROL) 0.25 mcg capsule Take 1 capsule by mouth two times a day. calcium citrate (CALCITRATE) 200 mg (950 mg) tab Take 1 tablet by mouth four times daily. ibuprofen (MOTRIN) 200 mg tablet Take 1-2 tablets by mouth every 4 hours as needed for pain. acetaminophen (TYLENOL EXTRA STRENGTH) 500 mg tablet Take 2 tablets by mouth every 6 hours as needed for pain. furosemide (LASIX) 80 mg tablet 1 tablet once daily. Per Marc Reveles (Patient taking differently: 40 mg once daily. Per Marc Reveles) pantoprazole DR (PROTONIX) 40 mg tablet Take 40 mg by mouth once daily. Take one tablet daily nitroglycerin sublingual (NITROSTAT) 0.4 mg SL tablet Dissolve 1 tablet under the tongue every 5 minutes as needed. aspirin, enteric coated (ASPIRIN, ENTERIC COATED) 81 mg EC tablet Take 1 tablet by mouth once daily. No current facility-administered medications on file prior to visit. Social History Social History Tobacco Use Smoking status: Former Types: Cigarettes Smokeless tobacco: Never Tobacco comments: quit 1976 Vaping Use Vaping status: Never Used Substance Use Topics Alcohol use: Yes Alcohol/week: 1.0 standard drink of alcohol Types: 1 Standard drinks or equivalent per week Drug use: No Review of Symptoms REVIEW OF SYSTEMS SEE HPI EXAM: BP 120/58 Pulse 87 Resp 16 Wt 77.1 kg (170 lb) BMI 26.63 kg/m General Appearance: Well appearing, alert, in no acute distress, well-hydrated, well nourished. Lungs: Lungs clear to auscultation. No wheezing, rhonchi, rales.. Heart: RRR without murmur, gallop, or rubs. No ectopy. Abdomen: Nontender, soft, BS x4 quadrants present. Positive findings: obese. Health Maintenance List Depression Screening Never done Anxiety Screening Never done RSV Vaccine(1 - 1-dose 60+ series) due on 09/21/2024 Shingrix Vaccine(1 of 2) due on 09/21/2024 Covid-19 Vaccine(2022- season) due on 09/21/2024 Influenza Vaccine(1) due on 04/12/2024 LDL Cholesterol due on 09/21/2024 Diabetes Screening due on 09/21/2026 DTaP,Tdap,Td Vaccine(5 - Td or Tdap) due on 11/01/2028 Advance Directive Discussion Completed Pneumococcal Vaccine: 65+ Completed Hepatitis B Vaccine Discontinued Colorectal Cancer Screening Discontinued ASSESSMENT/PLAN: 1. Diarrhea, unspecified type - ICD9: 787.91, ICD10: R19.7 (primary diagnosis) - COMPLETE BLOOD COUNT AND DIFFERENTIAL - COMPREHENSIVE METABOLIC PANEL - LIPASE - AMYLASE - CT ABD/PEL WO IVCON - ENTERIC CONTRAST (RADIOLOGY PROCEDURE) 2. Nausea - ICD9: 787.02, ICD10: R11.0 - COMPLETE BLOOD COUNT AND DIFFERENTIAL - COMPREHENSIVE METABOLIC PANEL - LIPASE - AMYLASE - CT ABD/PEL WO IVCON - ENTERIC CONTRAST (RADIOLOGY PROCEDURE) 3. Flatulence/gas pain/belching - ICD9: 787.3, ICD10: R14.0 - CT ABD/PEL WO IVCON - ENTERIC CONTRAST (RADIOLOGY PROCEDURE) Deanne Shen APRN.MAMMOGRAPHER documented [facility] Tele[facility] encounter Note * Telephone Encounter - Julio Licea MD - 02/26/2024 8:42 PM EDT The following approved medication requests have been transmitted electronically. Requested Prescriptions Signed Prescriptions Disp Refills amLODIPine (NORVASC) 5 mg tablet 90 tablet 1 Sig: Take 1 tablet by mouth once daily. Authorizing Provider: JULIO LICEA MD [facility]07-17-2024 Miscellaneous Notes* Telephone Encounter - Julio Licea MD - 02/26/2024 8:42 PM EDT The following approved medication requests have been transmitted electronically. Requested Prescriptions Signed Prescriptions Disp Refills amLODIPine (NORVASC) 5 mg tablet 90 tablet 1 Sig: Take 1 tablet by mouth once daily. Authorizing Provider: JULIO LICEA MD * Telephone Encounter - Ammy uW LPN - 02/26/2024 5:49 PM EDT JONY-11/29/23 Labs-01/04/24Jun-09/22/24 Ammy Wu LPN documented in this encounterAs[facility] Telephone encounter Note * Telephone Encounter - Ammy Wu LPN - 02/26/2024 5:49 PM EDT JONY-11/29/23 Labs-01/04/24Jun-09/22/24 Ammy Wu LPN [facility]07-16-[facility]24 Hospital Discharge instructions Patient Education 02/25/2024 18:02:59 Coronary Artery Disease, Male Coronary Artery Disease, Male Coronary artery disease (CAD) is a condition in which the arteries that lead to the heart (coronaryarteries) become narrow or blocked. The narrowing or blockage can lead to decreased blood flow to the heart. Prolonged reduced blood flow can cause a heart attack (myocardial infarction or SD). This condition may also be called coronary heart disease. Because CAD is the leading cause of in men, it is important to understand what causes this condition and how it is treated. What are the causes? CAD is most often caused by atherosclerosis. This is the buildup of fat and cholesterol (plaque) onthe inside of the arteries. Over time, the plaque may narrow or block the artery, reducing blood flow to the heart. Plaque can also become weak and break off within a coronary artery and cause a sudden blockage. Other less common causes of CAD include: A blood clot or a piece of a blood clot or other substance that blocks the flow of blood in a coronary artery (embolism). A tearing of the artery (spontaneous coronary artery dissection). An enlargement of an artery (aneurysm). Inflammation (vasculitis) in the artery wall. What increases the risk? The following factors may make you more likely to develop this condition: Age. Men over age 45 are at a greater risk of CAD. Family history of CAD. Gender. Men often develop CAD earlier in life than women. High blood pressure (hypertension). Diabetes. High cholesterol levels. Tobacco use. Excessive alcohol use. Lack of exercise. A diet high in saturated and trans fats, such as fried food and processed meat. Other possible risk factors include: High stress levels. Depression. Obesity. Sleep apnea. What are the signs or symptoms? Many people do not have any symptoms during the early stages of CAD. As the condition progresses, symptoms may include: Chest pain (angina). The pain can: ?Feel like crushing or squeezing, or like a tightness, pressure, fullness, or heaviness in the chest. ?Last more than a few minutes or can stop and recur. The pain tends to get worse with exercise or stress and to fade with rest. Pain in the arms, neck, jaw, ear, or back. Unexplained heartburn or indigestion. Shortness of breath. Nausea or vomiting. Sudden light-headedness. Sudden cold sweats. Fluttering or fast heartbeat (palpitations). How is this diagnosed? This condition is diagnosed based on: Your family and medical history. A physical exam. Tests, including: ?A test to check the electrical signals in your heart (electrocardiogram). ?Exercise stress test. This looks for signs of blockage when the heart is stressed with exercise, such as running on a treadmill. ?Pharmacologic stress test. This test looks for signs of blockage when the heart is being stressed with a medicine. ?Blood tests. ?Coronary angiogram. This is a procedure to look at the coronary arteries to see if there is any blockage. During this test, a dye is injected into your arteries so they appear on an X-ray. ?Coronary artery CT scan. This CT scan helps detect calcium deposits in your coronary arteries. Calcium deposits are an indicator of CAD. ?A test that uses sound waves to take a picture of your heart (echocardiogram). ?Chest X-ray. How is this treated? This condition may be treated by: Healthy lifestyle changes to reduce risk factors. Medicines such as: ?Antiplatelet medicines and blood-thinning medicines, such as aspirin. These help to prevent blood clots. ?Nitroglycerin. ?Blood pressure medicines. ?Cholesterol-lowering medicine. Coronary angioplasty and stenting. During this procedure, a thin, flexible tube is inserted througha blood vessel and into a blocked artery. A balloon or similar device on the end of the tube is inflated to open up the artery. In some cases, a small, mesh tube (stent) is inserted into the artery to keep it open. Coronary artery bypass surgery. During this surgery, veins or arteries from other parts of the bodyare used to create a bypass around the blockage and allow blood to reach your heart. Follow these instructions at home: Medicines Take [id number] and prescription medicines only as told by your health care provider. Do not take the following medicines unless your health care provider approves: ?NSAIDs, such as ibuprofen, naproxen, or celecoxib. ?Vitamin supplements that contain vitamin A, vitamin E, or both. Lifestyle Follow an exercise program approved by your health care provider. Aim for 150 minutes of moderate exercise or 75 minutes of vigorous exercise each week. Maintain a healthy weight or lose weight as approved by your health care provider. Learn to manage stress or try to limit your stress. Ask your health care provider for suggestions if you need help. Get screened for depression and seek treatment, if needed. Do not use any products that contain nicotine or tobacco, such as cigarettes, e- cigarettes, and chewing tobacco. If you need help quitting, ask your health care provider. Do not use illegal drugs. Eating and drinking Follow a heart-healthy diet. A dietitian can help educate you about healthy food options and changes. In general, eat plenty of fruits and vegetables, lean meats, and whole grains. Avoid foods high in: ?Sugar. ?Salt (sodium). ?Saturated fat, such as processed or fatty meat. ?Trans fat, such as fried foods. Use healthy cooking methods such as roasting, grilling, broiling, baking, poaching, steaming, or stir-frying. Do not drink alcohol if your health care provider tells you not to drink. If you drink alcohol: ?Limit how much you have to 0 2 drinks per day. ?Be aware of how much alcohol is in your drink. In the [place] one drink equals one 12 oz bottle of beer (355 mL), one 5 oz glass of wine (148 mL), or one 1 oz glass of hard liquor (44 mL). General instructions Manage any other health conditions, such as hypertension and diabetes. These conditions affect yourheart. Your health care provider may ask you to monitor your blood pressure. Ideally, your blood pressure should be below 130/80. Keep all follow-up visits as told by your health care provider. This is important. Get help right away if: You have pain in your chest, neck, ear, arm, jaw, stomach, or back that: ?Lasts more than a few minutes. ?Is recurring. ?Is not relieved by taking medicine under your tongue (sublingual nitroglycerin). You have profuse sweating without cause. You have unexplained: ?Heartburn or indigestion. ?Shortness of breath or difficulty breathing. ?Fluttering or fast heartbeat (palpitations). ?Nausea or vomiting. ?Fatigue. ?Feelings of nervousness or anxiety. ?Weakness. ?Diarrhea. You have sudden light-headedness or dizziness. You faint. You feel like hurting yourself or think about taking your own life. These symptoms may represent a serious problem that is an emergency. Do not wait to see if the symptoms will go away. Get medical help right away. Call your local emergency services (911 in the [place] Do not drive yourself to the hospital. Summary Coronary artery disease (CAD) is a condition in which the arteries that lead to the heart (coronaryarteries) become narrow or blocked. The narrowing or blockage can lead to a heart attack. Many people do not have any symptoms during the early stages of CAD. CAD can be treated with lifestyle changes, medicines, surgery, or a combination of these treatments. This information is not intended to replace advice given to you by your health care provider. Make sure you discuss any questions you have with your health care provider. Document Released: 02/23/2015 Document Revised: 04/17/2019 Document Reviewed: 04/07/2019 [employer] Patient Education 2020 [employer]. Follow Up Care 02/24/2024 03:55:01 With:CLAIRE ANDINO MD Address: [address] [place] [address] [address] [facility] [place] [address]- [phone] When:Within 2 Week(s) With:[facility] Address: [facility] [address] [place] [phone]- When: Unknown Comments:The Cardiac rehab department will call you to schedule you for Phase 2. If you have any questions please call us at [phone]. Thank you. With:JULIO LICEA Address: [address] [place] [address]- [facility] (1) When:1-2 days With:CLAIRE ANDINO MD Address: [address] [facility] [address] [place] [address]- [phone] When:04/03/2024 10:00:00 [facility] 07-16-2024 Discharge summary Date of Service 02/25/2024 Discharge Diagnosis 1. 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 daily CONTINUE atorvastatin 40 mg p.o. daily CONTINUE clopidogrel 75 mg p.o. daily 2. CAD S/p PCI to LCx in 2012 Cardiac cath [11/18/2023]: S/p LAQUITA PCI x 2 to ostium of LCx. RCA and OM1 has 60% stenosis Plan CONTINUE aspirin 81 mg p.o. daily CONTINUE atorvastatin 40 mg p.o. daily CONTINUE clopidogrel 75 mg p.o. daily 4. 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 daily CONTINUE metoprolol succinate 25 mg p.o. daily 5. Hypertension Blood pressure in acceptable range Plan CONTINUE amlodipine 5 mg p.o. daily CONTINUE isosorbide mononitrate 30 mg p.o. daily CONTINUE metoprolol succinate 25 mg p.o. daily 6. Hyperlipidemia Plan CONTINUE atorvastatin 40 mg p.o. daily 7. GERD Denies current burning sensation in stomach Plan CONTINUE OTC antacid 8. History of parathyroidectomy in 2012 9. ESRD On MWF dialysis Plan Nephrology for scheduled dialysis Hospital Course An 83-year-old male with PMH of CAD [s/p PCI to LCx in 2014 and LAQUITA PCI to ostium of LCx on 11/19/2023], ESRD [on MWF dialysis], chronic HFpEF, hypertension, hyperlipidemia, GERD, history of parathyroidectomy in 2012 presented to [facility] ED multiple times because of chest pain. She has been transferred here for further care. On encounter, the patient was examined in room 352. He was alone. He stated that he has: --Chest pain since 2 weeks. Insidious in onset, nonprogressive, substernal, nonradiating, aggravated with exertion, severity of 8/10, heaviness type, lasting for around 20 minutes at max, relieved onits own [1] Allergies lisinopril Cough Consults Consult to Occupational Therapy - Ordered -- 02/24/24 6:47:00 EDT, Once, Self care deficit Consult to Physician - Ordered -- 02/24/24 6:49:00 EDT, FAZAL RUIZ DO, Routine, ESRd on HD Objective Vitals and Measurements T: 36.4 C (Oral) TMIN: 36.3 C (Skin) TMAX: 36.7 C (Skin) HR: 75 (Apical) RR: 18 BP: 138/51 SpO2: 93% WT: 77 kg Weight Dosing Weight: 77 kg (02/24/24) Dosing Weight: 77.9 kg (02/24/24) General: AAOX3, NAD HEENT: Anicteric sclera, MMM Neck: Trachea midline, no JVD appreciated CVS: RRR, normal S1/S2, no murmurs/rubs/gallops Lung: CTAB, no wheezes/rhonchi/rales Abd: Soft, NT/ND Extrem: WWP, no LE edema Skin: Warm, Intact Neuro: AAOX3, spontaneous movement of all extremities Psych: Appropriate mood & affect Code Status Code Status - Ordered -- 02/24/24 6:47:00 EDT, Full Code, Constant Order Admission Date 02/24/2024 Discharge Date 02/25/2024 Medications Changed metoprolol (metoprolol succinate 25 mg oral TABLET extended release)2 tab(s) by mouth once a day with a meal for 30 Days. Refills: 2. Unchanged amLODIPine (amLODIPine 5 mg oral tablet)1 tab(s) by mouth once a day. Refills: 1. aspirin (aspirin 81 mg oral delayed release tablet)1 tab(s) by mouth every day for 90 Days. Refills: 4. atorvastatin (atorvastatin 40 mg oral tablet)1 tab(s) by mouth daily at bedtime for 90 Days. Refills: 4. calcium acetate (calcium acetate 667 mg oral capsule)3 cap by mouth. clopidogrel (Plavix 75 mg oral tablet)1 tab(s) by mouth once a day for 90 Days. Refills: 4. furosemide (Lasix 40 mg oral tablet)1 tab(s) by mouth once a day. Refills: 3. isosorbide mononitrate (isosorbide mononitrate 30 mg oral tablet, extended release)1 tab(s) by mouth once a day (in the morning). Refills: 1. nitroGLYcerin (nitroglycerin 0.4 mg sublingual tablet)1 tab(s) under the tongue every 5 minutes as needed for chest pain. Refills: 1. pantoprazole (pantoprazole 40 mg oral enteric coated tablet)1 tab(s) by mouth once a day. Refills: 0. Follow Up Follow Up with CLAIRE ANDINO MD When:In 2 weeks Where:[address] [facility] [place] [address] [phone] Follow Up with [facility] Where:[facility] [address] [place] [address]- Additional Information: The Cardiac rehab department will call you to schedule you for Phase 2. If you have any questions please call us at [phone]. Thank you. Follow Up with JULIO LICEA When:Within 1-2 days Where:[address] [place] [address]- Business (1) Follow Up with CLAIRE ANDINO MD When:04/03/2024 10:00 AM EDT Where:[address] [facility] [address] [place], [place] [address]- [phone] Follow Up Appointments No qualifying data available. Follow Up Labs/Studies Discharge Labs No Follow-up Labs Discharge Studies No Follow-up Studies Discharge Diet No qualifying data available. Discharge Activity No qualifying data available. Condition on Discharge Stable Readmission Risk/Palliative Score LACE Score: 10 (02/24/24 15:02:00) Palliative Total Score: 1 (02/24/24 15:02:00) Discharge Disposition Home [1] History and Physical; CINDY BARDALES MD 02/24/2024 07:24 EDT Digitally Signed by CINDY BARDALES MD on 02/25/2024 05:15 PM [id number] History and physical note Date of Service 02/24/2024 Chief Complaint Chest Pain History of Present Illness An 83-year-old male with PMH of CAD [s/p PCI to LCx in 2014 and LAQUITA PCI to ostium of LCx on 11/19/2023], ESRD [on MWF dialysis], chronic HFpEF, hypertension, hyperlipidemia, GERD, history of parathyroidectomy in 2012 presented to [facility] multiple times because of chest pain. She has been transferred here for further care. On encounter, the patient was examined in room 352. He was alone. He stated that he has: --Chest pain since 2 weeks. Insidious in onset, nonprogressive, substernal, nonradiating, aggravated with exertion, severity of 8/10, heaviness type, lasting for around 20 minutes at max, relieved onits own Denies palpitations, shortness of breath, cough, PND Denies abdominal pain Denies bowel bladder disturbances Review of Systems General: negative for weight change, fevers/night sweats/chills, fatigue/weakness Skin: negative for skin changes HEENT: negative for headache, visual changes, hearing loss, rhinorrhea/congestion/epistaxis, bleeding gums, hoarseness/sore throat Breasts: negative for skin changes, discharge Cardiac: negative for murmurs, angina, palpitations, WILEY, orthopnea, PND, edema Pulmonary: negative for SOB, wheezing, cough, sputum/hemoptysis, PNA, asthma/bronchitis/COPD GI: negative for N/V, change in appetite, dysphagia, change in BM, stool color, hematemesis/melena/hematochezia, constipation/diarrhea : negative for polydipsia, polyuria, hematuria, dysuria, nocturia MSK: negative for muscle weakness, joint pain/stiffness, redness/swelling Heme: negative for anemia, easy bruising Neurologic: negative for loss of sensation/numbness/tingling, weakness/paralysis Physical Exam Vitals and Measurements T: 36.4 C (Oral) HR: 96 (Monitored) RR: 18 BP: 152/76 SpO2: 96% HT: 170.2 cm WT: 78.9 kg BMI: 27.24 Weight Dosing Weight: 78.9 kg (02/24/24) General: AAOX3, NAD HEENT: Anicteric sclera, MMM Neck: Trachea midline, no JVD appreciated CVS: RRR, normal S1/S2, no murmurs/rubs/gallops Lung: CTAB, no wheezes/rhonchi/rales Abd: Soft, NT/ND Extrem: WWP, no LE edema Skin: Warm, Intact Neuro: AAOX3, spontaneous movement of all extremities Psych: Appropriate mood & affect Lab Results No 36 Hour Lab Data Assessment/Plan 1. 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 daily CONTINUE atorvastatin 40 mg p.o. daily CONTINUE clopidogrel 75 mg p.o. daily For cardiac cath today 2. CAD S/p PCI to LCx in 2012 Cardiac cath [11/18/2023]: S/p LAQUITA PCI x 2 to ostium of LCx. RCA and OM1 has 60% stenosis Plan CONTINUE aspirin 81 mg p.o. daily CONTINUE atorvastatin 40 mg p.o. daily CONTINUE clopidogrel 75 mg p.o. daily 4. 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 daily CONTINUE metoprolol succinate 25 mg p.o. daily 5. Hypertension Blood pressure in acceptable range Plan CONTINUE amlodipine 5 mg p.o. daily CONTINUE isosorbide mononitrate 30 mg p.o. daily CONTINUE metoprolol succinate 25 mg p.o. daily 6. Hyperlipidemia Plan CONTINUE atorvastatin 40 mg p.o. daily 7. GERD Denies current burning sensation in stomach Plan START OTC antacid 8. History of parathyroidectomy in 2012 9. ESRD On MWF dialysis Plan Nephrology for scheduled dialysis Problem List/Past Medical History Ongoing Anemia CAD IN [place] ARTERY Chronic heart failure with preserved ejection fraction (HFpEF) CKD (chronic kidney disease) DYSLIPIDEMIA ESRD on dialysis GERD - Gastro-esophageal reflux disease H/O NON-ST ELEVATION MYOCARDIAL INFARCTION (NSTEMI) HYPERTENSION, BENIGN Mild aortic regurgitation Mild mitral regurgitation Moderate aortic stenosis OVERWEIGHT (BMI 25.0-29.9) Parathyroidectomy PREOPERATIVE CLEARANCE PVC (PREMATURE VENTRICULAR CONTRACTION) PVCs (premature ventricular contractions) Smoker Procedure/Surgical History Cardiovascular stress testin11/18/23 PCI - Percutaneous coronary intervention: 09/06/14 Cardiac catheterization, combined right and left heart: 09/06/14 Placement of stent in coronary artery: 09/04/14 Excision of parathyroid gland: 2012 Cystoscopic laser lithotripsy of ureteric calculus: 1960 Hand Blood transfusion Hernia repair Colonoscopy Endoscopy Medications Home Medications (10) Active amLODIPine 5 mg oral tablet 5 mg = 1 tab(s), Oral, qDay aspirin 81 mg oral delayed release tablet 81 mg = 1 tab(s), Oral, Daily atorvastatin 40 mg oral tablet 40 mg = 1 tab(s), Oral, qHS calcium acetate 667 mg oral capsule 2,001 mg = 3 cap(s), Oral isosorbide mononitrate 30 mg oral tablet, extended release 30 mg = 1 tab(s), Oral, qAM Lasix 40 mg oral tablet 40 mg = 1 tab(s), Oral, qDay metoprolol succinate 25 mg oral TABLET extended release 25 mg = 1 tab(s), Oral, qDayM nitroglycerin 0.4 mg sublingual tablet 0.4 mg = 1 tab(s), PRN, Sublingual, q5min pantoprazole 40 mg oral enteric coated tablet 1 tab(s), Oral, qDay Plavix 75 mg oral tablet 75 mg = 1 tab(s), Oral, qDay Allergies lisinopril Cough Social History Smoking Status - 09/04/2014 Former smoker Alcohol Use: Current. Type: Liquor. Frequency: 1-2 times per week., 02/24/2024 Use: Current. Type: Liquor. Frequency: 1-2 times per week., 11/06/2018 Nutrition/Health Caffeine intake amount: 1-2 cups per day., 11/30/2021 Substance Abuse Use: Never., 11/06/2018 Tobacco Nicotine Use: Former smoker, quit more than 30 days ago., 02/24/2024 Tobacco Use: Former smoker, quit more than 30 days ago. Type: Cigarettes. Tobacco use per day: 30. Number of years: 17., 11/06/2018 Family History Cancer: Mother and Father. Cancer: Brother. Heart disease: Father. Health Status Family Member(s) Immunizations pneumococcal 13-valent conjugate vaccine: 0 unknown unit (12/24/14) pneumococcal 23-valent vaccine(Pneumovax: 0.5 unknown unit (03/04/17) SARS-CoV-2 (COVID-19) mRNA-1273 vaccine: 0.25 unknown unit (07/31/21) SARS-CoV-2 (COVID-19) mRNA-1273 vaccine: 0.5 unknown unit (11/08/20) SARS-CoV-2 (COVID-19) mRNA-1273 vaccine: 0.5 unknown unit (10/11/20) tetanus/diphth/pertuss (Tdap) adult/adol: 0.5 mL (10/31/18) Code Status Code Status - Ordered -- 02/24/24 6:47:00 EDT, Full Code, Constant Order Digitally Signed by CINDY BARDALES MD on 02/24/2024 03:19 PM Digitally Signed by CINDY BARDALES MD on 02/24/2024 03:20 PM Digitally Signed by CINDY BARDALES MD on 02/24/2024 03:21 PM [facility] [id number] Note Discharge Instructions Thank you for allowing [facility] to assist you with your healthcare needs. The following is importantdischarge information regarding your hospital visit. Your Care Team JULIO LICEA MD What to do next Scheduled Follow-Up Appointments Appointment Type When Where Contact Information StatusCV OV 04/03/2024 10:00 AM EDT [facility] Confirmed Follow Up Appointments Follow Up with CLAIRE ANDINO MD When:In 2 weeks Where:[address] [facility] [place] [address]- [phone] Follow Up with [facility] Where:[facility] [address] [place] [address]- Additional Information: The Cardiac rehab department will call you to schedule you for Phase 2. If you have any questions please call us at [phone]. Thank you. Follow Up with JULIO LICEA When:Within 1-2 days Where:[address] [place] [address]- Business (1) Follow Up with CLAIRE ANDINO MD When:04/03/2024 10:00 AM EDT Where:[address] [facility] [address] [place] [address]- [phone] The Following Activity and Diet Have Been Ordered for You Discharge Activity - Ordered -- Resume your pre-hospitalization activity, 02/25/24 17:12:00 EDT Discharge Diet - Ordered -- Type of Diet: Cardiac, 02/25/24 17:12:00 EDT The Following Equipment Has Been Ordered for You No qualifying data available. The Following Treatments Have Been Ordered for You Discharge Labs No qualifying data available. Discharge Radiology No qualifying data available. Other Therapies No qualifying data available. Post Acute Orders No qualifying data available. Someone Will Contact You Regarding These Home Health Referrals No home referrals have been ordered for you. No one will call you. Allergies lisinopril Cough Medications Please ask your primary doctor or pharmacist before taking any other medication not listed, including over the counter drugs, herbal medications, vitamins and or supplements as they may interact withyour home medications. What How Much When Instructions Last Dose Changed metoprolol (metoprolol succinate 25 mg oral TABLET extended release) 2 tab(s) by mouth Once a day with a meal Duration: 30 Days Pickup at [facility] Unchanged amLODIPine (amLODIPine 5 mg oral tablet) 1 tab(s) by mouth Once a day Unchanged aspirin (aspirin 81 mg oral delayed release tablet) 1 tab(s) by mouth Every day Duration: 90 Days Pickup at [facility] [address] Unchanged atorvastatin (atorvastatin 40 mg oral tablet) 1 tab(s) by mouth Daily at bedtime Duration: 90 Days Pickup at [facility] [address] Unchanged calcium acetate (calcium acetate 667 mg oral capsule) 3 cap by mouth Unchanged clopidogrel (Plavix 75 mg oral tablet) 1 tab(s) by mouth Once a day Duration: 90 Days Pickup at [facility] [address] Unchanged furosemide (Lasix 40 mg oral tablet) 1 tab(s) by mouth Once a day Unchanged isosorbide mononitrate (isosorbide mononitrate 30 mg oral tablet, extended release) 1 tab(s) by mouth Once a day (in the morning) Unchanged nitroGLYcerin (nitroglycerin 0.4 mg sublingual tablet) 1 tab(s) under the tongue Every 5 minutes as needed for for chest pain Unchanged pantoprazole (pantoprazole 40 mg oral enteric coated tablet) 1 tab(s) by mouth Once a day Pharmacy Information [facility] [address]: [address], [place] [id number] [phone] Please take this list to your next doctor s visit. Bring all medications you take, including over the counter medications, herbals and other supplements with you to your doctor s visit. Patients and families are reminded to discard old lists and to update any records with all medication providers or retail pharmacies. Education Materials Coronary Artery Disease, Male Coronary artery disease (CAD) is a condition in which the arteries that lead to the heart (coronaryarteries) become narrow or blocked. The narrowing or blockage can lead to decreased blood flow to the heart. Prolonged reduced blood flow can cause a heart attack (myocardial infarction or SD). This condition may also be called coronary heart disease. Because CAD is the leading cause of in men, it is important to understand what causes this condition and how it is treated. What are the causes? CAD is most often caused by atherosclerosis. This is the buildup of fat and cholesterol (plaque) onthe inside of the arteries. Over time, the plaque may narrow or block the artery, reducing blood flow to the heart. Plaque can also become weak and break off within a coronary artery and cause a sudden blockage. Other less common causes of CAD include: A blood clot or a piece of a blood clot or other substance that blocks the flow of blood in a coronary artery (embolism). A tearing of the artery (spontaneous coronary artery dissection). An enlargement of an artery (aneurysm). Inflammation (vasculitis) in the artery wall. What increases the risk? The following factors may make you more likely to develop this condition: Age. Men over age 45 are at a greater risk of CAD. Family history of CAD. Gender. Men often develop CAD earlier in life than women. High blood pressure (hypertension). Diabetes. High cholesterol levels. Tobacco use. Excessive alcohol use. Lack of exercise. A diet high in saturated and trans fats, such as fried food and processed meat. Other possible risk factors include: High stress levels. Depression. Obesity. Sleep apnea. What are the signs or symptoms? Many people do not have any symptoms during the early stages of CAD. As the condition progresses, symptoms may include: Chest pain (angina). The pain can: ? Feel like crushing or squeezing, or like a tightness, pressure, fullness, or heaviness in the chest. ? Last more than a few minutes or can stop and recur. The pain tends to get worse with exercise or stress and to fade with rest. Pain in the arms, neck, jaw, ear, or back. Unexplained heartburn or indigestion. Shortness of breath. Nausea or vomiting. Sudden light-headedness. Sudden cold sweats. Fluttering or fast heartbeat (palpitations). How is this diagnosed? This condition is diagnosed based on: Your family and medical history. A physical exam. Tests, including: ? A test to check the electrical signals in your heart (electrocardiogram). ? Exercise stress test. This looks for signs of blockage when the heart is stressed with exercise, such as running on a treadmill. ? Pharmacologic stress test. This test looks for signs of blockage when the heart is being stressed with a medicine. ? Blood tests. ? Coronary angiogram. This is a procedure to look at the coronary arteries to see if there is any blockage. During this test, a dye is injected into your arteries so they appear on an X-ray. ? Coronary artery CT scan. This CT scan helps detect calcium deposits in your coronary arteries. Calcium deposits are an indicator of CAD. ? A test that uses sound waves to take a picture of your heart (echocardiogram). ? Chest X-ray. How is this treated? This condition may be treated by: Healthy lifestyle changes to reduce risk factors. Medicines such as: ? Antiplatelet medicines and blood-thinning medicines, such as aspirin. These help to prevent blood clots. ? Nitroglycerin. ? Blood pressure medicines. ? Cholesterol-lowering medicine. Coronary angioplasty and stenting. During this procedure, a thin, flexible tube is inserted througha blood vessel and into a blocked artery. A balloon or similar device on the end of the tube is inflated to open up the artery. In some cases, a small, mesh tube (stent) is inserted into the artery to keep it open. Coronary artery bypass surgery. During this surgery, veins or arteries from other parts of the bodyare used to create a bypass around the blockage and allow blood to reach your heart. Follow these instructions at home: Medicines Take ftah-sxd-budtaxm and prescription medicines only as told by your health care provider. Do not take the following medicines unless your health care provider approves: ? NSAIDs, such as ibuprofen, naproxen, or celecoxib. ? Vitamin supplements that contain vitamin A, vitamin E, or both. Lifestyle Follow an exercise program approved by your health care provider. Aim for 150 minutes of moderate exercise or 75 minutes of vigorous exercise each week. Maintain a healthy weight or lose weight as approved by your health care provider. Learn to manage stress or try to limit your stress. Ask your health care provider for suggestions if you need help. Get screened for depression and seek treatment, if needed. Do not use any products that contain nicotine or tobacco, such as cigarettes, e- cigarettes, and chewing tobacco. If you need help quitting, ask your health care provider. Do not use illegal drugs. Eating and drinking Follow a heart-healthy diet. A dietitian can help educate you about healthy food options and changes. In general, eat plenty of fruits and vegetables, lean meats, and whole grains. Avoid foods high in: ? Sugar. ? Salt (sodium). ? Saturated fat, such as processed or fatty meat. ? Trans fat, such as fried foods. Use healthy cooking methods such as roasting, grilling, broiling, baking, poaching, steaming, or stir-frying. Do not drink alcohol if your health care provider tells you not to drink. If you drink alcohol: ? Limit how much you have to 0 2 drinks per day. ? Be aware of how much alcohol is in your drink. In the [place] one drink equals one 12 oz bottle of beer (355 mL), one 5 oz glass of wine (148 mL), or one 1 oz glass of hard liquor (44 mL). General instructions Manage any other health conditions, such as hypertension and diabetes. These conditions affect yourheart. Your health care provider may ask you to monitor your blood pressure. Ideally, your blood pressure should be below 130/80. Keep all follow-up visits as told by your health care provider. This is important. Get help right away if: You have pain in your chest, neck, ear, arm, jaw, stomach, or back that: ? Lasts more than a few minutes. ? Is recurring. ? Is not relieved by taking medicine under your tongue (sublingual nitroglycerin). You have profuse sweating without cause. You have unexplained: ? Heartburn or indigestion. ? Shortness of breath or difficulty breathing. ? Fluttering or fast heartbeat (palpitations). ? Nausea or vomiting. ? Fatigue. ? Feelings of nervousness or anxiety. ? Weakness. ? Diarrhea. You have sudden light-headedness or dizziness. You faint. You feel like hurting yourself or think about taking your own life. These symptoms may represent a serious problem that is an emergency. Do not wait to see if the symptoms will go away. Get medical help right away. Call your local emergency services (911 in the [place] Do not drive yourself to the hospital. Summary Coronary artery disease (CAD) is a condition in which the arteries that lead to the heart (coronaryarteries) become narrow or blocked. The narrowing or blockage can lead to a heart attack. Many people do not have any symptoms during the early stages of CAD. CAD can be treated with lifestyle changes, medicines, surgery, or a combination of these treatments. This information is not intended to replace advice given to you by your health care provider. Make sure you discuss any questions you have with your health care provider. Document Released: 02/23/2015 Document Revised: 04/17/2019 Document Reviewed: 04/07/2019 [employer] Patient Education 2020 [employer] Additional Information VACCINATE! IT SAVES LIVES! Members of the community who have not yet received the COVID-19 vaccine and would like to receive it can visit one of [facility] vaccine clinics. There are many vaccine clinic locations within the [facility]. For locations and available times, please visit https://gettheshot.coronavirus.[place].gov/. It is important to note that some COVID mobile vaccine clinics are held outdoors and may be canceled in rainy or stormy conditions. To learn more about pediatric vaccinations (ages 5-11), we invite you to visit the [facility] webpage. https://www.[email or web address].org/pages/7586-Yitas-Qpxanqcdjtc-Dliafqkekg-Kvqqs-Vno stions.htmlTo learn more about the COVID-19 vaccine, we invite you to visit the CDC website for a list of frequently asked questions.https://www.cdc.gov/coronavirus/2019-ncov/vaccines/faq.html [facility] Patient Portal Access Instructions: Stay connected with your healthcare team and access your personal medical information anytime with the [facility] Patient Portal. Please follow the directions below to create your [facility] account: 1.Access the email account you provided upon registration to the hospital/physician office.2.Look for an invitation email from [facility].3.Open the email and access the invitation link: AcceptInvitation to [facility].4.Fill in the required wilkinson to create your account. To access your account, visit [facility] | [email or web address]. Click the blue button labeled Access Patient Portal and then log in with the username and password that you created in the steps above. You will be able to view your test results, lab results, a summary of your visits, upcoming appointments and more. There is also a convenient messaging option where you can send secure messages to your p rovider. In addition, you will have the ability to download any documents or summaries to your computer and/or send the information securely to a physician. Remember that your healthcare information is confidential, so carefully consider who you will allowto register on the [facility] for access to your information. You can also access the [facility] Patient Portal on the [facility] samanta. Simply click on Patient Portal and then log into your account. If you would like to receive a full copy of your medical records, please contact the [facility] Medical Records Department by calling [phone], Saturday through Saturday between 8 a.m. and 4:30 p.m. HOW TO SAFELY DISPOSE OF PRESCRIPTION MEDICATIONS Please use one of the following methods to safely dispose of your unused medications. 1.Use a drug disposal kit: the drug disposal pouch allows you to safely discard your old and unuseddrugs. Ask your nurse to give you one when you are discharged.2.Visit a local take-back location: Many local pharmacies and police departments have programs that collect old and unwanted prescriptiondrugs. Call your local pharmacy or go to http://NuPotential.InSpa/0V4Vt0k to find one close to you.3.Make use of household items: Use cat litter or old coffee grounds to dispose medications if other options arenot available. Mix your drugs with these household products, seal them in an airtight container andthrow it into the garbage. Call [facility]: [phone] to be sure your drugs can be disposed of in this way. Some medicines may require a different approach.4.Never flush your medications down the toilet. IF YOU HAVE BEEN PRESCRIBED AN OPIOID FOR PAIN If you have been prescribed an opioid (such as hydrocodone, oxycodone or morphine), it is critical to understand the possible side effects and risks of opioid pain medications. Even when taken as directed, opioids can have several side effects including: Tolerance, meaning you might need to take more of a medication for the same pain relief. Nausea, vomiting and/or constipation. Sleepiness, dizziness, dry mouth, confusion, depression or itching. Physical dependence, meaning you have withdrawal symptoms when a medication is stopped, can develop within a few days. KNOW YOUR RESPONSIBILITIES It is important to know exactly how much and how often to take the opioid pain medications you are prescribed. Never take opioids in higher amounts or more often than prescribed. Do not combine opioids with alcohol or other drugs that cause drowsiness, such as benzodiazepines, also known as benzos, including diazepam and alprazolam, muscle relaxants or sleep aids. Never sell or share prescription opioids. This is illegal. Store opioids in a secure place and out of reach of others (including children, family, friends and visitors). The last page of this document has been signed and retained as a CHART COPY. Signatures Patient Education Materials Coronary Artery Disease, Male Medication Leaflets My discharge plan and instructions have been reviewed and explained to me and IROGER CARL M understand my current condition and have read and understand these discharge instructions. I have received a written copy of the plan/instructions. If I have questions, I am aware that I should contact my doctor. 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 No further chest pain. No shortness of breath on room air. No diaphoresis. No nausea. Tolerated procedure well yesterday. Objective Vitals and Measurements T: 36.4 C (Oral) TMIN: 36.3 C (Skin) TMAX: 36.7 C (Skin) HR: 75 (Apical) RR: 18 BP: 138/51 SpO2: 93% WT: 77 kg Intake and Output 7AM Yesterday to 7AM Today Intake and Output (Last 24 hours) Intake Oral Intake 600.00 Output Urine Voided 430.00 Hemodialysis 980.00 Stool Count 0.00 Total Summary Total Intake 600.00 Total Output 1410.00 Fluid Balance -810.00 Physical Exam HEENT: Mucosa was moist, sclera anicteric, extraocular muscles intact, JVD present Lungs: Crackles in right base Heart: Regular with 1/6 stock murmur. no rubs or gallops Abdomen: Positive bowel sounds, soft, no palpable masses Access: Right forearm AV fistula positive bruit and thrill Extremities: No edema, pulses 2+ in all 4 extremities Skin: No rashes, normal turgor Weight Dosing Weight: 77 kg (02/24/24) Dosing Weight: 77.9 kg (02/24/24) Medications Medications (29) Active Scheduled: (10) amLODIPine 5 mg tablet 5 mg 1 tab(s), Oral, qDay aspirin 81 mg Chewable 81 mg 1 tab(s), Oral, qDayM atorvastatin 40 mg tablet 40 mg 1 tab(s), Oral, qDay clopidogrel 75 mg Tablet 75 mg 1 tab(s), Oral, qDay furosemide 40 mg tablet 40 mg 1 tab(s), Oral, qDay isosorbide mononitrate 30 mg ER tablet 30 mg 1 tab(s), Oral, qAM metoprolol succinate 25 mg ER tablet 25 mg 1 tab(s), Oral, qDayM No metformin for 48 hrs post contrast 1 EA, Miscellaneous, Unscheduled pantoprazole 40 mg EC tablet 40 mg 1 tab(s), Oral, qDayAC sodium zirconium cyclosilicate 10 g REC packet 10 gram(s) 1 packet(s), Oral, Once Continuous: (1) heparin 25,000 unit(s) [12 unit(s)/kg/hr] + Dextrose 5% Premix Diluent 250 mL 250 mL, Intravenous, 9.47 mL/hr PRN: (18) acetaminophen 325 mg Tablet 650 mg 2 tab(s), Oral, q4h acetaminophen-HYDROcodone 325-5 mg tablet 1 tab(s), Oral, q6hr albuterol - ipratropium 2.5 mg-0.5 mg/3 mL Inhal Ada UD 3 mL, Inhalation, q4hRT dextrose 50% Solution Disp syringe 50 mL 12.5 gram(s) 25 mL, IV Push, AsDirected heparin 5,000 units/mL (1 mL) vial 4,000 unit(s) 0.8 mL, IV Push, q6h magnesium sulfate 4 gram(s)/100mL PMX 4 g 100 mL, IV Piggyback, AsDirected magnesium sulfate 50% (500mg/mL) 6 g 12 mL, IV Piggyback, AsDirected magnesium sulfate PMX 2 g 50 mL, IV Piggyback, AsDirected melatonin 3 mg tablet 6 mg 2 tab(s), Oral, qHS morphine 2 mg/mL 1 mL syringe 1 mg 0.5 mL, IV Push, q6hr nitroglycerin 0.4 mg Tablet (25/btl) 0.4 mg 1 tab(s), Sublingual, q5min nitroglycerin 2% Ointment UD Packet 0.5 inch(es), Topical, BID ondansetron 2 mg/ 1 mL 2 mL INJ 4 mg 2 mL, IV Push, q4h polyethylene glycol 3350 - UD packet 17 gram(s) 15 mL, Oral, qDay potassium chloride (PMX) 20 mEq/100 mL 20 mEq 100 mL, IV Piggyback, AsDirected potassium chloride 20 mEq ER tablet 20 mEq 1 tab(s), Oral, AsDirected potassium chloride 20 mEq ER tablet 40 mEq 2 tab(s), Oral, AsDirected potassium chloride 20 mEq ER tablet 40 mEq 2 tab(s), Oral, AsDirected Lab Results 02/24 05:02 WBC: 5.4 Hgb: 8.9 L Hct: 26.7 L Platelet: 156 Neutrophil %: 74.6 Glucose Level: 84 Sodium Level: 135 L Potassium Level: 5.3 H BUN: 36.0 H Creatinine Lvl (s): 5.03 H 02/23 23:44 Hgb: 9.1 L Hct: 27.0 L Glucose Level: 136 H Sodium Level: 136 Potassium Level: 4.9 BUN: 30.0 H Creatinine Lvl (s): 4.67 H 02/23 17:53 Creatinine Lvl (s): 3.89 H 02/23 07:50 WBC: 8.0 Hgb: 10.7 L Hct: 32.5 L Platelet: 162 Neutrophil %: 78.4 H 02/23 07:49 Protime: 11.3 PT International Ratio: 1.0 Glucose Level: 120 H Sodium Level: 138 Potassium Level: 5.3 H BUN: 71.0 H Creatinine Lvl (s): 8.41 H EKG EKG - Completed -- 02/24/24 6:21:00 EDT EKG - Completed -- 02/24/24 23:15:00 EDT Electrocardiogram (EKG) - Ordered -- 02/24/24 17:30:00 EDT, Post-procedure, Complete by Nursing Assessment/Plan 1. NSTEMI: Patient has known coronary disease. He had chest pain that did not resolve with rest troponin level. Underwent heart catheterization with intervention to previous stent. Currently asymptomatic. 2. End-stage renal disease: Typically has dialysis on Wednesdays and Fridays. AV fistula ispatent. Had dialysis yesterday. Neck scheduled treatment tomorrow. If discharged, patient will return to his typical schedule in [place]. 3. Hyperkalemia: Change diet to low potassium. Dose with Lokelma 10 g x 1 today. Digitally Signed by JANA SINGH MD on 02/25/2024 09:06 AM [facility] [id number] Discharge summary Date of Service 02/25/2024 Discharge Diagnosis 1. 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 daily CONTINUE atorvastatin 40 mg p.o. daily CONTINUE clopidogrel 75 mg p.o. daily 2. CAD S/p PCI to LCx in 2012 Cardiac cath [11/18/2023]: S/p LAQUITA PCI x 2 to ostium of LCx. RCA and OM1 has 60% stenosis Plan CONTINUE aspirin 81 mg p.o. daily CONTINUE atorvastatin 40 mg p.o. daily CONTINUE clopidogrel 75 mg p.o. daily 4. 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 daily CONTINUE metoprolol succinate 25 mg p.o. daily 5. Hypertension Blood pressure in acceptable range Plan CONTINUE amlodipine 5 mg p.o. daily CONTINUE isosorbide mononitrate 30 mg p.o. daily CONTINUE metoprolol succinate 25 mg p.o. daily 6. Hyperlipidemia Plan CONTINUE atorvastatin 40 mg p.o. daily 7. GERD Denies current burning sensation in stomach Plan CONTINUE OTC antacid 8. History of parathyroidectomy in 2012 9. ESRD On MWF dialysis Plan Nephrology for scheduled dialysis Hospital Course An 83-year-old male with PMH of CAD [s/p PCI to LCx in 2014 and LAQUITA PCI to ostium of LCx on 11/19/2023], ESRD [on MWF dialysis], chronic HFpEF, hypertension, hyperlipidemia, GERD, history of parathyroidectomy in 2012 presented to [place] ED multiple times because of chest pain. She has been transferred here for further care. On encounter, the patient was examined in room 352. He was alone. He stated that he has: --Chest pain since 2 weeks. Insidious in onset, nonprogressive, substernal, nonradiating, aggravated with exertion, severity of 8/10, heaviness type, lasting for around 20 minutes at max, relieved onits own [1] Allergies lisinopril Cough Consults Consult to Occupational Therapy - Ordered -- 02/24/24 6:47:00 EDT, Once, Self care deficit Consult to Physician - Ordered -- 02/24/24 6:49:00 EDT, FAZAL RUIZ DO, Routine, ESRd on HD Objective Vitals and Measurements T: 36.4 C (Oral) TMIN: 36.3 C (Skin) TMAX: 36.7 C (Skin) HR: 75 (Apical) RR: 18 BP: 138/51 SpO2: 93% WT: 77 kg Weight Dosing Weight: 77 kg (02/24/24) Dosing Weight: 77.9 kg (02/24/24) General: AAOX3, NAD HEENT: Anicteric sclera, MMM Neck: Trachea midline, no JVD appreciated CVS: RRR, normal S1/S2, no murmurs/rubs/gallops Lung: CTAB, no wheezes/rhonchi/rales Abd: Soft, NT/ND Extrem: WWP, no LE edema Skin: Warm, Intact Neuro: AAOX3, spontaneous movement of all extremities Psych: Appropriate mood & affect Code Status Code Status - Ordered -- 02/24/24 6:47:00 EDT, Full Code, Constant Order Admission Date 02/24/2024 Discharge Date 02/25/2024 Medications Changed metoprolol (metoprolol succinate 25 mg oral TABLET extended release)2 tab(s) by mouth once a day with a meal for 30 Days. Refills: 2. Unchanged amLODIPine (amLODIPine 5 mg oral tablet)1 tab(s) by mouth once a day. Refills: 1. aspirin (aspirin 81 mg oral delayed release tablet)1 tab(s) by mouth every day for 90 Days. Refills: 4. atorvastatin (atorvastatin 40 mg oral tablet)1 tab(s) by mouth daily at bedtime for 90 Days. Refills: 4. calcium acetate (calcium acetate 667 mg oral capsule)3 cap by mouth. clopidogrel (Plavix 75 mg oral tablet)1 tab(s) by mouth once a day for 90 Days. Refills: 4. furosemide (Lasix 40 mg oral tablet)1 tab(s) by mouth once a day. Refills: 3. isosorbide mononitrate (isosorbide mononitrate 30 mg oral tablet, extended release)1 tab(s) by mouth once a day (in the morning). Refills: 1. nitroGLYcerin (nitroglycerin 0.4 mg sublingual tablet)1 tab(s) under the tongue every 5 minutes as needed for chest pain. Refills: 1. pantoprazole (pantoprazole 40 mg oral enteric coated tablet)1 tab(s) by mouth once a day. Refills: 0. Follow Up Follow Up with CLAIRE ANDINO MD When:In 2 weeks Where:[address] [facility] [address] [facility] [place] [address]- [phone] Follow Up with [facility] Where:[facility] [address] [place] [address]- Additional Information: The Cardiac rehab department will call you to schedule you for Phase 2. If you have any questions please call us at [phone]. Thank you. Follow Up with JULIO LICEA When:Within 1-2 days Where:[address] [place] [address]- Business (1) Follow Up with CLAIRE ANDINO MD When:04/03/2024 10:00 AM EDT Where:[address] [facility] [place] [address]- [phone] Follow Up Appointments No qualifying data available. Follow Up Labs/Studies Discharge Labs No Follow-up Labs Discharge Studies No Follow-up Studies Discharge Diet No qualifying data available. Discharge Activity No qualifying data available. Condition on Discharge Stable Readmission Risk/Palliative Score LACE Score: 10 (02/24/24 15:02:00) Palliative Total Score: 1 (02/24/24 15:02:00) Discharge Disposition Home [1] History and Physical; CINDY BARDALES MD 02/24/2024 07:24 EDT Digitally Signed by CINDY BARDALES MD on 02/25/2024 05:15 PM [facility] [id number] Note* Exam Date Time Procedure Performing Provider Status 02/25/24 7:29 AM VL Arterial US/Doppl er Pseudoaneurysm-CV Auth (Verified) [facility] 07-15-2024 NoteSINUS RHYTHM RIGHT BUNDLE BRANCH BLOCK INFERIOR INFARCT, AGE INDETERMINATE Electronic Signature: JOANN RICK MD 02/25/2024 07:30:08[facility] 07-15-2024 Cardiology Progress note Date of Service 02/24/2024 Hematoma noted near right groin cath access site. Per nursing staff it does appear to be expanding.H&H stable. Recommended manual pressure and strict bedrest. Pseudoaneurysm study pending 5 beat run of VT likely due to reperfusion noted on telemetry. Electrolytes WNL Digitally Signed by OMARI LUX MD on 02/24/2024 11:20 PM Digitally Signed by OMARI LUX MD on 02/25/2024 04:08 AM [facility] [id number] Cardiology Progress note Date of Service balloon angioplasty to LCX stent Digitally Signed by SRIDHAR GIRARD MD on 02/24/2024 05:31 PM [facility] [id number] Evaluation + Plan noteExtracted from: Title:History and Physical Author:CINDY BARDALES MD Date:02/24/24 1. 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 daily CONTINUE atorvastatin 40 mg p.o. daily CONTINUE clopidogrel 75 mg p.o. daily For cardiac cath today 2. CAD S/p PCI to LCx in 2012 Cardiac cath [11/18/2023]: S/p LAQUITA PCI x 2 to ostium of LCx. RCA and OM1 has 60% stenosis Plan CONTINUE aspirin 81 mg p.o. daily CONTINUE atorvastatin 40 mg p.o. daily CONTINUE clopidogrel 75 mg p.o. daily 4. 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 daily CONTINUE metoprolol succinate 25 mg p.o. daily 5. Hypertension Blood pressure in acceptable range Plan CONTINUE amlodipine 5 mg p.o. daily CONTINUE isosorbide mononitrate 30 mg p.o. daily CONTINUE metoprolol succinate 25 mg p.o. daily 6. Hyperlipidemia Plan CONTINUE atorvastatin 40 mg p.o. daily 7. GERD Denies current burning sensation in stomach Plan START OTC antacid 8. History of parathyroidectomy in 2012 9. ESRD On MWF dialysis Plan Nephrology for scheduled dialysis Addendum by OMA ALVARADO MD on February 25, 2024 19:23:08 EDT Patient was seen and examined at bedside on the date the note was created unless specified. Agree with the note and findings as detailed in note as above. I personally reviewed the pertinent labs, performed physical examination, reviewed pertinent previous cardiology test results. Cardiology service will continue to follow up on the patient. Future Appointments Appointment Date:04/03/2024 10:00:00 AM Scheduled Provider: Location:[facility] Appointment Type:CV OV [facility] 07-15-2024 Nephrology Consult note Date of Service 02/24/2024 Reason for Consultation End-stage renal disease History of Present Illness Patient is 19 years old. History of end-stage renal disease currently on hemodialysis on Wednesdays and Fridays. He has a right forearm AV fistula. He receives dialysis in [place]. Last treatment was on Saturday. It was uneventful. Saturday he had a normal day. Yesterday afternoon he developed chest discomfort. Typically this will only last for 15 to 20 minutes and resolves with rest. Yesterday it did not resolve. As result he presented to the hospital. He denies diaphoresis. No shortnessof breath. He did have emesis x 1. He has a known history of coronary artery disease. He underwent stent placement in August 2014. Also underwent PCI in November 2023. Was found to have elevated troponin levels consistent with non-ST segment elevation myocardial infarction. Currently he is on a heparin drip. He is on room air. He is asymptomatic. High- sensitivity troponinlevel was 1352. Review of Systems Described above. Currently he is asymptomatic. No shortness of breath. No orthopnea. No further chest pain. No nausea. Have emesis x 1 yesterday. None today. He still produces urine approximately 2-3times daily. No dysuria. No hesitancy. Said no diarrhea. Appetite is intact. No edema. Physical Exam Vitals and Measurements T: 36.4 C (Oral) HR: 85 (Apical) RR: 18 BP: 132/68 SpO2: 96% HT: 170.2 cm WT: 78.9 kg BMI: 27.24 Weight Dosing Weight: 78.9 kg (02/24/24) HEENT: Mucosa was moist, sclera anicteric, extraocular muscles intact, JVD present Lungs: Crackles in right base Heart: Regular with no murmurs rubs or gallops Abdomen: Positive bowel sounds, soft, no palpable masses Access: Right forearm AV fistula positive bruit and thrill Extremities: No edema, pulses 2+ in all 4 extremities Skin: No rashes, normal turgor Lab Results 02/23 07:50 WBC: 8.0 Hgb: 10.7 L Hct: 32.5 L Platelet: 162 Neutrophil %: 78.4 H 02/23 07:49 Protime: 11.3 PT International Ratio: 1.0 Glucose Level: 120 H Sodium Level: 138 Potassium Level: 5.3 H BUN: 71.0 H Creatinine Lvl (s): 8.41 H Assessment/Plan 1. NSTEMI: Patient has known coronary disease. He has chest pain that did not resolve with rest. Troponin levels elevated at 1352. Currently on heparin drip. He is being evaluated by cardiology. Should he have heart catheterization we will work his dialysis schedule around this. 2. End-stage renal disease: Typically has dialysis on Wednesdays and Fridays. AV fistula ispatent. Plan dialysis today with 2 L of fluid removal as tolerated by blood pressure. 3. Hyperkalemia: Will address with dialysis. Problem List/Past Medical History Ongoing Anemia CAD IN [place] ARTERY Chronic heart failure with preserved ejection fraction (HFpEF) CKD (chronic kidney disease) DYSLIPIDEMIA ESRD on dialysis GERD - Gastro-esophageal reflux disease H/O NON-ST ELEVATION MYOCARDIAL INFARCTION (NSTEMI) HYPERTENSION, BENIGN Mild aortic regurgitation Mild mitral regurgitation Moderate aortic stenosis OVERWEIGHT (BMI 25.0-29.9) Parathyroidectomy PREOPERATIVE CLEARANCE PVC (PREMATURE VENTRICULAR CONTRACTION) PVCs (premature ventricular contractions) Smoker Procedure/Surgical History Cardiovascular stress testin11/18/23 PCI - Percutaneous coronary intervention: 09/06/14 Cardiac catheterization, combined right and left heart: 09/06/14 Placement of stent in coronary artery: 09/04/14 Excision of parathyroid gland: 2012 Cystoscopic laser lithotripsy of ureteric calculus: 1959 Hand Blood transfusion Hernia repair Colonoscopy Endoscopy Medications Inpatient amLODIPine, 5 mg= 1 tab(s), Oral, qDay Pio Aspirin, 81 mg= 1 tab(s), Oral, qDayM Dextrose 50% IV Push, 12.5 gram(s)= 25 mL, IV Push, AsDirected, PRN DuoNeb, 3 mL, Inhalation, q4hRT, PRN Heparin for IV 25,000 unit(s) [12 unit(s)/kg/hr] + Dextrose 5% Premix Diluent 250 mL Heparin HBW CARDIAC Bolus 5000 units/mL, 4000 unit(s)= 0.8 mL, 60 unit(s)/kg, IV Push, q6h, PRN isosorbide mononitrate 30 mg oral tablet, extended release, 30 mg= 1 tab(s), Oral, qAM Lasix, 40 mg= 1 tab(s), Oral, qDay Lipitor, 40 mg= 1 tab(s), Oral, qDay magnesium sulfate for IV bolus, 2 gram(s)= 50 mL, IV Piggyback, AsDirected, PRN magnesium sulfate for IV bolus, 4 gram(s)= 100 mL, IV Piggyback, AsDirected, PRN magnesium sulfate for IV bolus melatonin, 6 mg= 2 tab(s), Oral, qHS, PRN metoprolol succinate 25 mg oral TABLET extended release, 25 mg= 1 tab(s), Oral, qDayM Miralax Powder Packet, 17 gram(s)= 15 mL, Oral, qDay, PRN Nitrostat, 0.4 mg= 1 tab(s), Sublingual, q5min, PRN Plavix, 75 mg= 1 tab(s), Oral, qDay potassium chloride, 20 mEq= 1 tab(s), Oral, AsDirected, PRN potassium chloride, 40 mEq= 2 tab(s), Oral, AsDirected, PRN potassium chloride, 40 mEq= 2 tab(s), Oral, AsDirected, PRN potassium chloride bolus, 20 mEq= 100 mL, IV Piggyback, AsDirected, PRN Protonix, 40 mg= 1 tab(s), Oral, qDayAC Tylenol, 650 mg= 2 tab(s), Oral, q4h, PRN Zofran, 4 mg= 2 mL, IV Push, q4h, PRN Home amLODIPine 5 mg oral tablet, 5 mg= 1 tab(s), Oral, qDay, 1 refills aspirin 81 mg oral delayed release tablet, 81 mg= 1 tab(s), Oral, Daily, 4 refills atorvastatin 40 mg oral tablet, 40 mg= 1 tab(s), Oral, qHS, 4 refills calcium acetate 667 mg oral capsule, 2001 mg= 3 cap(s), Oral isosorbide mononitrate 30 mg oral tablet, extended release, 30 mg= 1 tab(s), Oral, qAM, 1 refills Lasix 40 mg oral tablet, 40 mg= 1 tab(s), Oral, qDay, 3 refills metoprolol succinate 25 mg oral TABLET extended release, 25 mg= 1 tab(s), Oral, qDayM, 2 refills nitroglycerin 0.4 mg sublingual tablet, 0.4 mg= 1 tab(s), Sublingual, q5min, PRN, 1 refills pantoprazole 40 mg oral enteric coated tablet, 1 tab(s), Oral, qDay Plavix 75 mg oral tablet, 75 mg= 1 tab(s), Oral, qDay, 4 refills Allergies lisinopril Cough Social History Smoking Status - 09/04/2014 Former smoker Alcohol Use: Current. Type: Liquor. Frequency: 1-2 times per week., 02/24/2024 Use: Current. Type: Liquor. Frequency: 1-2 times per week., 11/06/2018 Nutrition/Health Caffeine intake amount: 1-2 cups per day., 11/30/2021 Substance Abuse Use: Never., 11/06/2018 Tobacco Nicotine Use: Former smoker, quit more than 30 days ago., 02/24/2024 Tobacco Use: Former smoker, quit more than 30 days ago. Type: Cigarettes. Tobacco use per day: 30. Number of years: 17., 11/06/2018 Family History Cancer: Mother and Father. Cancer: Brother. Heart disease: Father. Health Status Family Member(s) Immunizations pneumococcal 13-valent conjugate vaccine: 0 unknown unit (12/24/14) pneumococcal 23-valent vaccine(Pneumovax: 0.5 unknown unit (03/04/17) SARS-CoV-2 (COVID-19) mRNA-1273 vaccine: 0.25 unknown unit (07/31/21) SARS-CoV-2 (COVID-19) mRNA-1273 vaccine: 0.5 unknown unit (11/08/20) SARS-CoV-2 (COVID-19) mRNA-1273 vaccine: 0.5 unknown unit (10/11/20) tetanus/diphth/pertuss (Tdap) adult/adol: 0.5 mL (10/31/18) Digitally Signed by JANA SINGH MD on 02/24/2024 09:15 AM [facility] [id number] History and physical note Date of Service 02/24/2024 Chief Complaint Chest Pain History of Present Illness An 83-year-old male with PMH of CAD [s/p PCI to LCx in 2014 and LAQUITA PCI to ostium of LCx on 11/19/2023], ESRD [on MWF dialysis], chronic HFpEF, hypertension, hyperlipidemia, GERD, history of parathyroidectomy in 2012 presented to [place] ED multiple times because of chest pain. She has been transferred here for further care. On encounter, the patient was examined in room 352. He was alone. He stated that he has: --Chest pain since 2 weeks. Insidious in onset, nonprogressive, substernal, nonradiating, aggravated with exertion, severity of 8/10, heaviness type, lasting for around 20 minutes at max, relieved onits own Denies palpitations, shortness of breath, cough, PND Denies abdominal pain Denies bowel bladder disturbances Review of Systems General: negative for weight change, fevers/night sweats/chills, fatigue/weakness Skin: negative for skin changes HEENT: negative for headache, visual changes, hearing loss, rhinorrhea/congestion/epistaxis, bleeding gums, hoarseness/sore throat Breasts: negative for skin changes, discharge Cardiac: negative for murmurs, angina, palpitations, WILEY, orthopnea, PND, edema Pulmonary: negative for SOB, wheezing, cough, sputum/hemoptysis, PNA, asthma/bronchitis/COPD GI: negative for N/V, change in appetite, dysphagia, change in BM, stool color, hematemesis/melena/hematochezia, constipation/diarrhea : negative for polydipsia, polyuria, hematuria, dysuria, nocturia MSK: negative for muscle weakness, joint pain/stiffness, redness/swelling Heme: negative for anemia, easy bruising Neurologic: negative for loss of sensation/numbness/tingling, weakness/paralysis Physical Exam Vitals and Measurements T: 36.4 C (Oral) HR: 96 (Monitored) RR: 18 BP: 152/76 SpO2: 96% HT: 170.2 cm WT: 78.9 kg BMI: 27.24 Weight Dosing Weight: 78.9 kg (02/24/24) General: AAOX3, NAD HEENT: Anicteric sclera, MMM Neck: Trachea midline, no JVD appreciated CVS: RRR, normal S1/S2, no murmurs/rubs/gallops Lung: CTAB, no wheezes/rhonchi/rales Abd: Soft, NT/ND Extrem: WWP, no LE edema Skin: Warm, Intact Neuro: AAOX3, spontaneous movement of all extremities Psych: Appropriate mood & affect Lab Results No 36 Hour Lab Data Assessment/Plan 1. 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 daily CONTINUE atorvastatin 40 mg p.o. daily CONTINUE clopidogrel 75 mg p.o. daily For cardiac cath today 2. CAD S/p PCI to LCx in 2012 Cardiac cath [11/18/2023]: S/p LAQUITA PCI x 2 to ostium of LCx. RCA and OM1 has 60% stenosis Plan CONTINUE aspirin 81 mg p.o. daily CONTINUE atorvastatin 40 mg p.o. daily CONTINUE clopidogrel 75 mg p.o. daily 4. 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 daily CONTINUE metoprolol succinate 25 mg p.o. daily 5. Hypertension Blood pressure in acceptable range Plan CONTINUE amlodipine 5 mg p.o. daily CONTINUE isosorbide mononitrate 30 mg p.o. daily CONTINUE metoprolol succinate 25 mg p.o. daily 6. Hyperlipidemia Plan CONTINUE atorvastatin 40 mg p.o. daily 7. GERD Denies current burning sensation in stomach Plan START OTC antacid 8. History of parathyroidectomy in 2012 9. ESRD On MWF dialysis Plan Nephrology for scheduled dialysis Problem List/Past Medical History Ongoing Anemia CAD IN [place] ARTERY Chronic heart failure with preserved ejection fraction (HFpEF) CKD (chronic kidney disease) DYSLIPIDEMIA ESRD on dialysis GERD - Gastro-esophageal reflux disease H/O NON-ST ELEVATION MYOCARDIAL INFARCTION (NSTEMI) HYPERTENSION, BENIGN Mild aortic regurgitation Mild mitral regurgitation Moderate aortic stenosis OVERWEIGHT (BMI 25.0-29.9) Parathyroidectomy PREOPERATIVE CLEARANCE PVC (PREMATURE VENTRICULAR CONTRACTION) PVCs (premature ventricular contractions) Smoker Procedure/Surgical History Cardiovascular stress testin11/18/23 PCI - Percutaneous coronary intervention: 09/06/14 Cardiac catheterization, combined right and left heart: 09/06/14 Placement of stent in coronary artery: 09/04/14 Excision of parathyroid gland: 2012 Cystoscopic laser lithotripsy of ureteric calculus: 1960 Hand Blood transfusion Hernia repair Colonoscopy Endoscopy Medications Home Medications (10) Active amLODIPine 5 mg oral tablet 5 mg = 1 tab(s), Oral, qDay aspirin 81 mg oral delayed release tablet 81 mg = 1 tab(s), Oral, Daily atorvastatin 40 mg oral tablet 40 mg = 1 tab(s), Oral, qHS calcium acetate 667 mg oral capsule 2,001 mg = 3 cap(s), Oral isosorbide mononitrate 30 mg oral tablet, extended release 30 mg = 1 tab(s), Oral, qAM Lasix 40 mg oral tablet 40 mg = 1 tab(s), Oral, qDay metoprolol succinate 25 mg oral TABLET extended release 25 mg = 1 tab(s), Oral, qDayM nitroglycerin 0.4 mg sublingual tablet 0.4 mg = 1 tab(s), PRN, Sublingual, q5min pantoprazole 40 mg oral enteric coated tablet 1 tab(s), Oral, qDay Plavix 75 mg oral tablet 75 mg = 1 tab(s), Oral, qDay Allergies lisinopril Cough Social History Smoking Status - 09/04/2014 Former smoker Alcohol Use: Current. Type: Liquor. Frequency: 1-2 times per week., 02/24/2024 Use: Current. Type: Liquor. Frequency: 1-2 times per week., 11/06/2018 Nutrition/Health Caffeine intake amount: 1-2 cups per day., 11/30/2021 Substance Abuse Use: Never., 11/06/2018 Tobacco Nicotine Use: Former smoker, quit more than 30 days ago., 02/24/2024 Tobacco Use: Former smoker, quit more than 30 days ago. Type: Cigarettes. Tobacco use per day: 30. Number of years: 17., 11/06/2018 Family History Cancer: Mother and Father. Cancer: Brother. Heart disease: Father. Health Status Family Member(s) Immunizations pneumococcal 13-valent conjugate vaccine: 0 unknown unit (12/24/14) pneumococcal 23-valent vaccine(Pneumovax: 0.5 unknown unit (03/04/17) SARS-CoV-2 (COVID-19) mRNA-1273 vaccine: 0.25 unknown unit (07/31/21) SARS-CoV-2 (COVID-19) mRNA-1273 vaccine: 0.5 unknown unit (11/08/20) SARS-CoV-2 (COVID-19) mRNA-1273 vaccine: 0.5 unknown unit (10/11/20) tetanus/diphth/pertuss (Tdap) adult/adol: 0.5 mL (10/31/18) Code Status Code Status - Ordered -- 02/24/24 6:47:00 EDT, Full Code, Constant Order Digitally Signed by CINDY BARDALES MD on 02/24/2024 03:19 PM Digitally Signed by CINDY BARDALES MD on 02/24/2024 03:20 PM Digitally Signed by CINDY BARDALES MD on 02/24/2024 03:21 PM [id number] Note ORIGINAL EXAMINATION: ONE XRAY VIEW OF THE CHEST 02/24/2024 7:32 am COMPARISON: None. HISTORY: ORDERING SYSTEM PROVIDED HISTORY: Reason for Exam: Chest Pain FINDINGS: Heart is mildly prominent however at the upper limits of normal in size. Atherosclerotic calcification of the aorta is noted. Possible small left effusion. No definite right effusion. No pneumothorax. Mild hazy airspace disease is present at the left lung base. IMPRESSION: Suspected tiny left effusion with adjacent hazy airspace disease. Interpreted by: Alcides Morales MD Preliminary Report By: Alcides Morales MD Electronically signed By Alcides Morales MD Dictated Date: 02/24/2024 8:25:27 AM Prelim Date: 02/24/2024 8:27:13 AM Sign Date: 02/24/2024 8:27:13 AM Ordering Provider: [facility]2024 NoteSINUS RHYTHM BORDERLINE PROLONGED DC INTERVAL PROBABLE LEFT ATRIAL ENLARGEMENT RIGHT BUNDLE BRANCH BLOCK BORDERLINE ST DEPRESSION, LATERAL LEADS Electronic Signature: JOANN RICK MD 02/25/2024 07:30:01[facility] 07-02-2024 Telephone encounter Note* Telephone Encounter - Hanna Hickman - 02/11/2024 8:28 AM EDT Pt's office note for 02/09 was faxed to [facility] in [place] at [phone]. [facility]07-02-2024 Miscellaneous Notes* Telephone Encounter - Hanna Hickman - 02/11/2024 8:28 AM EDT Pt's office note for 02/09 was faxed to [facility] in [place] at [phone]. documented in this encounterAshtabula County [facility] Center07-01-2024 History of Present illness Narrative* Yaya Sun MD - 02/10/2024 9:58 PM EDT Mr Duran is here for follow up of his renal hyperparathyroidism. Please see my prior note for his detailed history of hyperparathyroidism. Intraoperative, the rightlow, left upper and left lower parathyroid glands were all found to be enlarged. Therefore, the right lower and left upper were completed excised. The left lower had a normal as well as an adenomatous portion. The normal portion of the left lower gland preserved while the rest was excised. His hypercalcemia was corrected after the reoperative parathyroidectomy but PTH levels remained somewhere elevated. Most recently PTH was 570. He is not on any sensipar as he could not tolerate it in the past. He is taking 2 calcium citrate TID. He was found to have a SD and underwent angioplasty with stentplacement in November. He is currently on Plavix. He is feeling well overall, has some more cough recently and more phlegm. On exam, he is well appearing, alert and oriented. His voice is strong and mildly raspy. His cervical incision is well healed. A neck US was performed. This showed a low riding thyroid gland. Bilaterally predominantly cystic nodules are seen, these are overall stable from before. I could appreciate a metal clip placed next to the left lower parathyroid gland on the left but no parathyroid adenoma is seen next to it. No other parathyroid glands are seen. Latest Ref Rng 07/25/2023 09/21/2023 01/04/2024 - PARATHYROID DATA SHEET Calcium 8.5 - 10.2 mg/dL Calcium 8.5 - 10.2 mg/dL 8.0 (L) 10.2 9.6 PTH, Intact 15 - 65 pg/mL 672 (H) 570 (H) Phosphorus 2.7 - 4.8 mg/dL Phosphorus 2.7 - 4.8 mg/dL Creatinine 0.73 - 1.22 mg/dL Creatinine 0.73 - 1.22 mg/dL 5.72 (H) Vitamin D 25 Hydroxy 31.0 - 80.0 ng/mL Vitamin D 25 Hydroxy 31.0 - 80.0 ng/mL 41.4 45.4 Creatinine 24 hr Ur 1.0 - 2.0 g/24 hr Ms Duran did fairly well after his parathyroidectomy. While his PTH level is high, it's only marginally higher than the upper normal of the KDIGO recommendation. This is without him being on Senispar. Therefore, my inclination is to continue to monitor this without aggressive surgical intervention. This is especially true given his recent coronary event. This was discussed with him and his who are in agreement. His cough may be related to allergy causing post nasal drip. I recommended that he tries some OTC allergy medication. Yaya Sun MD documented in this encounterAshtabula [facility]07-01-2024 Instructions* Patient Instructions* Jody Garduno MA - 02/10/2024 2:17 PM EDT Thank you for choosing the [facility] Department of Endocrinology, Diabetes and Metabolism. Did you know that you need to call 48 hours in advance of your scheduled visit, if you are unable to make your appointment? The Endocrinology and Metabolism [facility] thanks you for your commitment, because patients not showing to their appointment results in a lost opportunity for patients to receive [facility] health care at the [facility]. To Cancel an appointment, please choose one of the following: - Call the Appointment Call Center at [phone] - From [employer], Go to Appointments - Cancel Appts If cancelling, consider your need to reschedule to prevent further delays in your care. To Schedule an appointment, please choose one of the following: - Call the Appointment Call Center at [phone] - From [employer], Go to Appointments - Request an Appt documented in this encounterAshtabula County Medical Center06-05-2024 Telephone encounter Note * Telephone Encounter - Sarah Mclean MA - 01/15/2024 11:05 AM EDT Lasix ordered by post anesthesia nurse. Pt informed to contact post anesthesia nurse. Sarah Mclean MA [facility]06-05-2024 Miscellaneous Notes* Telephone Encounter - Sarah Mclean MA - 01/15/2024 11:05 AM EDT Lasix ordered by post anesthesia nurse. Pt informed to contact post anesthesia nurse. Sarah Mclean MA * Telephone Encounter - Khushboo Callejas - 01/15/2024 10:35 AM EDT Please note: patient said the dosage was changed to 40 mg recently. * Telephone Encounter - Khushboo Callejas - 01/15/2024 10:34 AM EDT Patient has been identified by name and date of : Yes, Provider Anuja Patient phones for refill(s): Requested Prescriptions Pending Prescriptions Disp Refills furosemide (LASIX) 80 mg tablet Si tablet once daily. Per Marc Reveles Date of last office visit in primary care: 11/29/2023 Date of next office visit in primary care: 09/22/2024 Please advise. Thank you. Khushboo Walters. documented in this encounterAshtabula [facility] Center06-05-2024 Telephone encounter Note * Telephone Encounter - Khushboo Callejas - 01/15/2024 10:35 AM EDT Please note: patient said the dosage was changed to 40 mg recently. [facility]06-05-2024 Telephone encounter Note* Telephone Encounter - Khushboo Callejas - 01/15/2024 10:34 AM EDT Patient has been identified by name and date of : Yes, Provider Anuja Patient phones for refill(s): Requested Prescriptions Pending Prescriptions Disp Refills furosemide (LASIX) 80 mg tablet Si tablet once daily. Per Marc Reveles Date of last office visit in primary care: 11/29/2023 Date of next office visit in primary care: 09/22/2024 Please advise. Thank you. Khushboo Walters. [facility]05-10-2024 History of Present illness Narrative* Maeve Sarmiento LPN - 12/20/2023 2:07 PM EDT Scan on 12/19/2023 11:21 AM by Provider, JOVITA Clifford: Consultation - Cardiology Maeve Sarmiento LPN documented in this encounterAshtabula [facility] Center04-19-2024 History of Present illness Narrative* Julio Licea MD - 11/29/2023 3:56 PM EDT Chief Complaint Patient presents with: Hospital Discharge HPI Luis Manuel Duran is a 82 year old male who presents here today for Hospital Discharge Follow up.. Patient is still having fatigue; cough and watery eyes. Has completed the antibiotic. Patient did have a mild heart attack. He was at [facility] and then transferred to [facility]. He did have a heart cath and they did 2 stents. Patient was started on Plavix and has an appointment with [facility] with [employer] STRATEGIST on 2023. Patient was given an antibiotic for possible pneumonia. He was just given medication. Cough is about the same. Not productive most times and when it is it's just phlegm. Slight WILEY with exertion thathas been stable since discharge. No orthopnea or leg swelling. No palpitations Past medical history, appointments, medications, allergies reviewed. 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 Horton Cardio Marc COVID-19 virus infection 05/29/2021 05/27/2021 Diaphragmatic hernia without mention of obstruction or gangrene Hiatal hernia Elevated alkaline phosphatase level 09/24/2023 Elevated bone fraction: NM bone scan 09/2023 was normal. Elevated PSA 03/11/2019 Esophagitis, unspecified ESRD (end stage renal disease) on dialysis ([facility]) 07/11/2023 Essential hypertension, benign Ex-smoker 12/26/2020 Started age 18 up to 1.5 PPD and quit at age 35. 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 deficiency ([facility]) 10/15/2013 Living will on file 12/15/2021 DPA: Shea () Mild aortic stenosis 11/27/2021 Seeing Cardio Mixed hyperlipidemia 09/03/2013 Overweight (BMI 25.0-29.9) Parathyroid adenoma 05/27/2013 parathyroidectomy 05/27/13 Personal history of colonic polyps Colon polyps Primary hyperparathyroidism ([facility]) 03/04/2017 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: 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 TIA (transient ischemic attack) 06/2010 Ulcer of esophagus without bleeding Vitamin D deficiency 10/15/2013 Previous Surgical History PAST SURGICAL HISTORY Procedure Laterality Date BX/EXC LYMPH NODE OPEN SUPERFICIAL CC CORONARY STENT 11/18/2023 Left Circ COLONOSCOPY 12/22/2019 COLONOSCOPY FLX DX W/COLLJ SPEC WHEN PFRMD 08/2000 Colonoscopy COLONOSCOPY FLX DX W/COLLJ SPEC WHEN PFRMD 10/19/2008 EGD TRANSORAL BIOPSY SINGLE/MULTIPLE 10/19/2008 ESOPHAGOGASTRODUODENOSCOPY TRANSORAL DIAGNOSTIC ESOPHAGOGASTRODUODENOSCOPY TRANSORAL DIAGNOSTIC 12/22/[address] Marcial LAPAROSCOPIC HERNIA REPAIR Right 05/21/2018 recurrent incarcerated direct right inguinal hernia PARATHYROIDECTOMY/EXPLORATION PARATHYROIDS 05/27/2013 Parathyroid adenoma PAST SURGICAL HISTORY OF 01/20/2021 supraumbilical ventral hernia RPR 1ST INGUN HRNA AGE 5 YRS/> REDUCIBLE Hernia repair, inguinal BILATERAL Family History FAMILY HISTORY Problem Relation Age of Onset Colon Cancer Mother Colon Cancer Father Arthritis Mother Heart Father SD * 2 Prostate Cancer Brother Hypertension Brother None Brother Patient Allergies ALLERGIES Allergen Reactions Axid [Nizatidine] Unknown Entex Pse [Pseudoep* Unknown Lisinopril Cough Current Medications Current Outpatient Medications on File Prior to Visit Medication Sig amLODIPine (NORVASC) 5 mg tablet Take 1 tablet by mouth once daily. atorvastatin (LIPITOR) 40 mg tablet Take 1 tablet by mouth once daily. For cholesterol. calcitriol (ROCALTROL) 0.25 mcg capsule Take 1 capsule by mouth two times a day. calcium citrate (CALCITRATE) 200 mg (950 mg) tab Take 1 tablet by mouth four times daily. ibuprofen (MOTRIN) 200 mg tablet Take 1-2 tablets by mouth every 4 hours as needed for pain. acetaminophen (TYLENOL EXTRA STRENGTH) 500 mg tablet Take 2 tablets by mouth every 6 hours as needed for pain. furosemide (LASIX) 80 mg tablet 1 tablet once daily. Per [facility] metoprolol tartrate, short acting, (LOPRESSOR) 50 mg tablet 0.5 tablets twice daily[address] pantoprazole [address] (PROTONIX) 40 mg tablet Take 40 mg by mouth once daily. Take one tablet daily nitroglycerin sublingual (NITROSTAT) 0.4 mg SL tablet Dissolve 1 tablet under the tongue every 5 minutes as needed. aspirin, enteric coated (ASPIRIN, ENTERIC COATED) 81 mg EC tablet Take 1 tablet by mouth once daily. No current facility-administered medications on file prior to visit. Social History Social History Tobacco Use Smoking status: Former Types: Cigarettes Smokeless tobacco: Never Tobacco comments: quit 1976 Vaping Use Vaping Use: Never used Substance Use Topics Alcohol use: Yes Alcohol/week: 1.0 standard drink of alcohol Types: 1 Standard drinks or equivalent per week Drug use: No Review of Symptoms REVIEW OF SYSTEMS See HPI EXAM: BP 130/60 (BP Site: Left Arm, BP Position: Sitting, BP Cuff Size: Regular Adult) Pulse 71 Temp 37.4 C (99.3 F) (Tympanic) Resp 20 Wt 78.5 kg (173 lb) SpO2 93% BMI 27.10 kg/m General Appearance: Well appearing, alert, in no acute distress, well-hydrated, well nourished.. Neck: Supple, no adenopathy; thyroid symmetric, normal size, no bruits. Lungs: Lungs clear to auscultation. No wheezing, rhonchi, rales.. Heart: RRR without murmur, gallop, or rubs. No ectopy. Abdomen: Normal abdominal exam, Abdomen soft, non-tender. Bowel sounds normal. No masses, organomegaly. Extremities: No deformities, edema, skin discoloration, Good capillary refill. . Health Maintenance List Behavioral Health Screening Never done RSV Vaccine(1 - 1-dose 60+ series) due on 09/21/2024 Shingrix Vaccine(1 of 2) due on 09/21/2024 Covid-19 Vaccine(4 - 2022- season) due on 09/21/2024 LDL Cholesterol due on 09/21/2024 Diabetes Screening due on 09/21/2026 DTaP,Tdap,Td Vaccine(5 - Td or Tdap) due on 11/01/2028 Influenza Vaccine Completed Advance Directive Discussion Completed Pneumococcal Vaccine: 65+ Completed Hepatitis B Vaccine Discontinued Colorectal Cancer Screening Discontinued Data reviewed [facility] papers. A/P ASSESSMENT/PLAN: 1. Coronary artery disease involving white mountain coronary artery of white mountain heart without angina pectoris- ICD9: 414.01, ICD10: I25.10 (primary diagnosis) - clinically stable. Patient to keep appt with Cardio 2. Bacterial pneumonia - ICD9: 482.9, ICD10: J15.9 - clinically resolved 3. Essential hypertension, benign - ICD9: 401.1, ICD10: I10 - Controlled - Continue current medications - Recommend home blood pressure monitoring, to bring results to next visit - Encouraged sodium restriction, DASH or Mediterranean diet - Recommend regular aerobic exercise 4. ESRD (end stage renal disease) on dialysis (HCC) - ICD9: 585.6, V45.11, ICD10: N18.6, Z99.2 - managed per renal and on dialysis. Keep appt in 09/2024 or sooner if needed. Julio Licea MD documented in this encounterAshtabula [facility] Center04-10-2024 Note. MICRO - Microbiology PROCEDURE: Blood Culture (bacterial) [*1] SOURCE: Blood BODY SITE: COLLECTED DATE/TIME: 11/15/2023 13:34 EDT RECEIVED DATE/TIME: 11/15/2023 18:45 EDT START DATE/TIME: 11/15/2023 18:45 EDT FREE TEXT SOURCE: FINAL REPORTS Final Report [] Verified Date/Time/Personnel: 11/20/2023 18:59 EDT Blood Culture: No Growth at 5 days. PRELIMINARY REPORTS Preliminary Report [] Verified Date/Time/Personnel: 11/15/2023 19:59 EDT Culture has been received in lab and is no growth to date. Routine cultures are held for 5 days. Performing Locations *1: This test was performed at: [address], [facility]- , [facility] ([place])11-20-2023 Note. MICRO - Microbiology PROCEDURE: Blood Culture (bacterial) [*1] SOURCE: Blood BODY SITE: COLLECTED DATE/TIME: 11/15/2023 13:34 EDT RECEIVED DATE/TIME: 11/15/2023 18:45 EDT START DATE/TIME: 11/15/2023 18:45 EDT FREE TEXT SOURCE: FINAL REPORTS Final Report [] Verified Date/Time/Personnel: 11/20/2023 18:59 EDT Blood Culture: No Growth at 5 days. PRELIMINARY REPORTS Preliminary Report [] Verified Date/Time/Personnel: 11/15/2023 19:59 EDT Culture has been received in lab and is no growth to date. Routine cultures are held for 5 days. Performing Locations *1: This test was performed at: [address], [place], [address]- , [facility] ([place])11-20-2023 Miscellaneous Notes* Telephone Encounter - Odell Muñiz LPN - 11/20/2023 2:23 PM EDT Patient has been identified by name and date of : Yes Patient phones for refill(s): Requested Prescriptions Pending Prescriptions Disp Refills amLODIPine (NORVASC) 5 mg tablet 90 tablet 1 Sig: Take 1 tablet by mouth once daily. Date of last office visit in primary care: 09/21/2023 Date of next office visit in primary care: 11/29/2023 Please advise. Thank you. Odell Muñiz LPN. documented in this encounterAshtabula [facility] Center04-10-2024 Miscellaneous Notes* Telephone Encounter - Julio Licea MD - 11/20/2023 10:26 AM EDT Noted and agree * Telephone Encounter - Francis Irizarry MA - 11/19/2023 4:28 PM EDT Patient was D/C on 11/19/2023 and patient was scheduled for 11/20/[address] Licea. Contacted [facility] to request hospital papers. Contacted patient and spoke with him and his . Patient did have a mild heart attack. He was at [facility] and then transferred to [facility]. He did have a heart cath and they did 2 stents. Patient was started on Plavix and has an appointment with [facility] with [employer]ET[employer] STRATEGIST on 2023. Patient was given an antibiotic for possible pneumonia. He was just given medication. We did move appointment out until 11/29/2023. They were both ok with that. They felt the Saturday appointment was too soon. Francis Irizarry MA documented in this encounterAshtabula County Medical Center04-09-2024 Discharge summary Date of Service 11/19/2023 Discharge Diagnosis 1. NSTEMI Patient had chest pain on evening after doing some yard work During dialysis yesterday afternoon his blood pressure went to 70s and he had some chest pain Troponins: In 500s range HEART score: 7 Back in [11/19/2023]: S/p LAQUITA PCI x 2 to ostium of LCx Plan CONTINUE aspirin 81 mg p.o. daily CONTINUE clopidogrel 75 mg p.o. daily CONTINUE atorvastatin 40 mg p.o. daily 2. CAD Cardiac cath [09/06/2014]: PCI to proximal LCx Cardiac cath [11/19/2023]: PCI to proximal LCx As per the notes the patient had a dobutamine stress echo on 11/22/2021 which was normal Plan CONTINUE aspirin 81 mg p.o. daily CONTINUE atorvastatin 40 mg p.o. daily 3. ESRD On dialysis -MWF Plan FOLLOW nephrology recommendations 4. Acute on chronic HFpEF exacerbation Patient has been having shortness of breath for long time JVP: Elevated Open edema proBNP: 11 K Plan Will need dialysis for negative fluid balance Not on TALHA/ARB/ARNI because of ESRD status CONTINUE metoprolol succinate 25 mg p.o. daily CONTINUE furosemide 40 mg IVP every 12 hours 5. Hypertension Blood pressure in acceptable range Plan CONTINUE amlodipine 5 mg p.o. daily CONTINUE metoprolol titrate 25 mg p.o. daily 6. Hyperlipidemia Plan CONTINUE atorvastatin 40 mg p.o. day 7. GERD Denies current burning sensation in stomach Plan CONTINUE pantoprazole 40 mg p.o. daily 8. History of parathyroidectomy in 2012 9. Pneumonia Chest x-ray/developing left lower lobe infiltrate Plan Start ceftriaxone 2 g IVP every 24 hours START azithromycin 5 mg IVP every 24 hours Hospital Course Background: An 82-year-old male with PMH of CAD [s/p PCI to LCx; 2014], HFpEF, hyperlipidemia, ESRD on dialysis, GERD, baseline RBBB, was sent to [facility] from dialysis center because of chest pain. --Chest pain since evening. He was doing some yard work and suddenly he noticed chest pain, substernal, sharp heaviness type, radiating to jaw, severity of 6/10, lasted for 10-15 minutes, relieved on its own Has baseline shortness of breath for a long time [11/19/2023]: For discharge today. [11/18/2023]: S/p PCI x 2 to LCx ostium. ... ... [11/16/2023]: Patient admitted from ED because of chest pain. Troponin 500s range. For cardiac cathon Saturday. Allergies lisinopril (Cough) Consults Consult to Physician (Physician Consult) - Ordered -- 11/16/23 1:16:00 EDT, JANA SINGH MD, Routine, ESRD on dialysis Consult to Spiritual Care Team (Consult to Pastoral Care) - Ordered -- 11/15/23 23:45:23 EDT Objective Vitals and Measurements T: 36.8 C (Oral) TMIN: 36.5 C (Oral) TMAX: 36.8 C (Oral) HR: 70(Monitored) RR: 16 BP: 110/47 SpO2: 92% WT: 76.5 kg Weight Dosing Weight: 76.5 kg (11/18/23) Dosing Weight: 77.6 kg (11/18/23) General: AAOX3, NAD HEENT: Anicteric sclera, MMM Neck: Trachea midline, JVP: Normal CVS: RRR, normal S1/S2, no murmurs/rubs/gallops Lung: CTAB, no wheezes/rhonchi/rales Abd: Soft, NT/ND Extrem: WWP, no LE edema Skin: Warm, Intact Neuro: AAOX3, spontaneous movement of all extremities Psych: Appropriate mood & affect Code Status Code Status - Ordered -- 11/16/23 1:16:00 EDT, Full Code, Constant Order Admission Date 11/15/2023 Discharge Date 11/19/2023 Medications New Prescription azithromycin (Azithromycin 3 Day Dose Pack 500 mg oral tablet)1 tab(s) by mouth once a day for 5 Days. Refills: 0. clopidogrel (Plavix 75 mg oral tablet)1 tab(s) by mouth once a day for 90 Days. Refills: 4. Changed aspirin (aspirin 81 mg oral delayed release tablet)1 tab(s) by mouth every day for 90 Days. Refills: 4. atorvastatin (atorvastatin 40 mg oral tablet)1 tab(s) by mouth daily at bedtime for 90 Days. Refills: 4. metoprolol (metoprolol succinate 25 mg oral TABLET extended release)1 tab(s) by mouth once a day with a meal for 30 Days. Refills: 2. Unchanged amLODIPine (amLODIPine 5 mg oral tablet)1 tab(s) by mouth once a day. Refills: 1. furosemide (Lasix 40 mg oral tablet)1 tab(s) by mouth once a day. Refills: 2. pantoprazole (pantoprazole 40 mg oral enteric coated tablet)1 tab(s) by mouth once a day. Refills: 1. Follow Up Follow Up with CLAIRE ANDINO MD When In 2 weeks Where: [address] [facility] [address] [facility] [place] [address]- [phone] Follow Up with [facility] When Why: The Cardiac rehab department will call you to schedule you for Phase 2. If you have any questions please call us at [phone]. Thank you. Where: [facility] [address] [place] [address]- Follow Up with JULIO LICEA When Within 1-2 days Where: [address] [place] [address]- [facility] (1) Follow Up Appointments No qualifying data available. Follow Up Labs/Studies Discharge Labs No Follow-up Labs Discharge Studies No Follow-up Studies Discharge Diet Discharge Diet - Ordered -- Type of Diet: Cardiac, 11/19/23 10:38:00 EDT Discharge Activity Discharge Activity - Ordered -- Lifting Restricted less than 10 pounds, 11/19/23 10:38:00 EDT Condition on Discharge Stable Readmission Risk/Palliative Score LACE Score: 11 (11/18/23 12:03:00) Palliative Total Score: 2 (11/18/23 12:01:00) Discharge Disposition Home Digitally Signed by CINDY BARDALES MD on 11/19/2023 11:28 AM [id number] Discharge instructions Patient Education 11/19/2023 10:40:47 Incision Care, Adult, Yqjf-kb-Kxem Incision Care, Adult An incision is a cut that a doctor makes in your skin for surgery (for a procedure). Most times, these cuts are closed after surgery. Your cut from surgery may be closed with stitches (sutures), ariella, skin glue, or skin tape (adhesive strips). You may need to return to your doctor to have stitches or ariella taken out. This may happen many days or many weeks after your surgery. The cut needs to be well cared for so it does not get infected. How to care for your cut Cut care Follow instructions from your doctor about how to take care of your cut. Make sure you: ?Wash your hands with soap and water before you change your bandage (dressing). If you cannot use soap and water, use hand federal mediator. ?Change your bandage as told by your doctor. ?Leave stitches, skin glue, or skin tape in place. They may need to stay in place for 2 weeks or longer. If tape strips get loose and curl up, you may trim the loose edges. Do not remove tape strips completely unless your doctor says it is okay. Check your cut area every day for signs of infection. Check for: ?More redness, swelling, or pain. ?More fluid or blood. ?Warmth. ?Pus or a bad smell. Ask your doctor how to clean the cut. This may include: ?Using mild soap and water. ?Using a clean towel to pat the cut dry after you clean it. ?Putting a cream or ointment on the cut. Do this only as told by your doctor. ?Covering the cut with a clean bandage. Ask your doctor when you can leave the cut uncovered. Do not take baths, swim, or use a hot tub until your doctor says it is okay. Ask your doctor if youcan take showers. You may only be allowed to take sponge baths for bathing. Medicines If you were prescribed an antibiotic medicine, cream, or ointment, take the antibiotic or put it onthe cut as told by your doctor. Do not stop taking or putting on the antibiotic even if your condition gets better. Take mcrz-vmh-djhjitk and prescription medicines only as told by your doctor. General instructions Limit movement around your cut. This helps healing. ?Avoid straining, lifting, or exercise for the first month, or for as long as told by your doctor. ?Follow instructions from your doctor about going back to your normal activities. ?Ask your doctor what activities are safe. Protect your cut from the sun when you are outside for the first 6 months, or for as long as told by your doctor. Put on sunscreen around the scar or cover up the scar. Keep all follow-up visits as told by your doctor. This is important. Contact a doctor if: Your have more redness, swelling, or pain around the cut. You have more fluid or blood coming from the cut. Your cut feels warm to the touch. You have pus or a bad smell coming from the cut. You have a fever or shaking chills. You feel sick to your stomach (nauseous) or you throw up (vomit). You are dizzy. Your stitches or ariella come undone. Get help right away if: You have a red streak coming from your cut. Your cut bleeds through the bandage and the bleeding does not stop with gentle pressure. The edges of your cut open up and separate. You have very bad (severe) pain. You have a rash. You are confused. You pass out (faint). You have trouble breathing and you have a fast heartbeat. This information is not intended to replace advice given to you by your health care provider. Make sure you discuss any questions you have with your health care provider. Document Released: 10/20/2012 Document Revised: 12/16/2017 Document Reviewed: 04/05/2017 [employer] Patient Education 2020 [employer]. 11/19/2023 10:40:41 3- Heart Cath/PCI groin (05/2018)(CUSTOM) HEART CATHETERIZATION/PCI (groin) Discharge Instructions DIET INSTRUCTIONS Drink plenty of fluids for the next 48 hours to help your kidneys flush the heart cath dye out of your system ACTIVITIES May go up and down stairs CAREFULLY Do not drive car FOR 24 HOURS No heavy lifting GREATER THAN 10 POUNDS or pushing or straining FOR 2 DAYS Someone must stay with you at home after the procedure until the morning. BATHING/SHOWERING May tub bathe in 1 week May shower tomorrow WOUND CARE You will go home with a Band-Aid over your heart cath site. Keep a Band-Aid on for the next 24 hours and then leave open to air. Some degree of bruising and tenderness is normal around the heart cath site. It will take a while for any bruising to completely resolve. Keep your site clean and dry. You need to report the following to your post anesthesia nurse: Any draining or oozing from the site Any swelling at the site Any increased pain or tenderness at the site Any numbness in your leg where the procedure was done Any signs of infection IMPORTANT! CALL 911 FOR ANY BLEEDING OR SWELLING AT THE PROCEDURE SITE If there is any large amount of bleeding, you or someone else need to apply direct pressure to the site (just like the nurse did in the heart lab after your procedure). It is very important that you hold constant pressure. Do not release the pressure to check if the bleeding has stopped. You then need to be transported to the nearest emergency room. WATCH FOR SIGNS OF INFECTION (Usually appears 36-48 hours after surgery) A temperature above 100.5 Redness or swelling Increased pain Foul odor or drainage If you have any questions, please call your doctor at the number listed on your follow up instructions. Follow all instructions given to you by your physician Document Released: 07/29/2006 Document Revised: 07/15/2013 Document Reviewed: 07/30/2014 ExitCare Patient Information 2015 [employer]. This information is not intended to replace advicegiven to you by your health care provider. Make sure you discuss any questions you have with your health care provider. Follow Up Care 11/15/2023 15:00:46 With:CLAIRE ANDINO MD Address: [address] [facility] [address] [facility] [place] [address] [phone] When:Within 2 Week(s) With:[facility] Address: [address] [address]- When: Unknown Comments:The Cardiac rehab department will call you to schedule you for Phase 2. If you have any questions please call us at [phone]. Thank you. With:JULIO LICEA Address: [address] [place] [address]- Business (1) When:1-2 days [facility] 04-09-2024 Note Discharge Instructions Thank you for allowing [facility] to assist you with your healthcare needs. The following is importantdischarge information regarding your hospital visit. Your Care Team JULIO LICEA MD What to do next Follow Up Appointments Follow Up with CLAIRE ANDINO MD When In 2 weeks Where: [address] [facility] [place] [address]- [phone] Follow Up with [facility] When Why: The Cardiac rehab department will call you to schedule you for Phase 2. If you have any questions please call us at [phone]. Thank you. Where: [facility] [address] [place] [address]- Follow Up with JULIO LICEA When Within 1-2 days Where: [address] [place] [address]- Business (1) The Following Activity and Diet Have Been Ordered for You Discharge Activity - Ordered -- Lifting Restricted less than 10 pounds, 11/19/23 10:38:00 EDT Discharge Diet - Ordered -- Type of Diet: Cardiac, 11/19/23 10:38:00 EDT The Following Equipment Has Been Ordered for You No qualifying data available. The Following Treatments Have Been Ordered for You Discharge Labs No qualifying data available. Discharge Radiology No qualifying data available. Other Therapies No qualifying data available. Post Acute Orders No qualifying data available. Someone Will Contact You Regarding These Home Health Referrals No home referrals have been ordered for you. No one will call you. Allergies lisinopril (Cough) Medications Please ask your primary doctor or pharmacist before taking any other medication not listed, including over the counter drugs, herbal medications, vitamins and or supplements as they may interact withyour home medications. What How Much When Instructions Last Dose New azithromycin (Azithromycin 3 Day Dose Pack 500 mg oral tablet) 1 tab(s) by mouth Once a day Duration: 5 Days Pickup at [facility] New clopidogrel (Plavix 75 mg oral tablet) 1 tab(s) by mouth Once a day Duration: 90 Days Refills: 4 Pickup at [facility] Changed aspirin (aspirin 81 mg oral delayed release tablet) 1 tab(s) by mouth Every day Duration: 90 Days Pickup at [facility] Changed atorvastatin (atorvastatin 40 mg oral tablet) 1 tab(s) by mouth Daily at bedtime Duration: 90 Days Pickup at [facility] Changed metoprolol (metoprolol succinate 25 mg oral TABLET extended release) 1 tab(s) by mouth Once a day with a meal Duration: 30 Days Pickup at [facility] Unchanged amLODIPine (amLODIPine 5 mg oral tablet) 1 tab(s) by mouth Once a day Unchanged furosemide (Lasix 40 mg oral tablet) 1 tab(s) by mouth Once a day Unchanged pantoprazole (pantoprazole 40 mg oral enteric coated tablet) 1 tab(s) by mouth Once a day Pharmacy Information [facility]: [address] [place] [address] [phone] Please take this list to your next doctor s visit. Bring all medications you take, including over the counter medications, herbals and other supplements with you to your doctor s visit. Patients and families are reminded to discard old lists and to update any records with all medication providers or retail pharmacies. Education Materials Incision Care, Adult An incision is a cut that a doctor makes in your skin for surgery (for a procedure). Most times, these cuts are closed after surgery. Your cut from surgery may be closed with stitches (sutures), ariella, skin glue, or skin tape (adhesive strips). You may need to return to your doctor to have stitches or ariella taken out. This may happen many days or many weeks after your surgery. The cut needs to be well cared for so it does not get infected. How to care for your cut Cut care Follow instructions from your doctor about how to take care of your cut. Make sure you: ? Wash your hands with soap and water before you change your bandage (dressing). If you cannot use soap and water, use hand federal mediator. ? Change your bandage as told by your doctor. ? Leave stitches, skin glue, or skin tape in place. They may need to stay in place for 2 weeks or longer. If tape strips get loose and curl up, you may trim the loose edges. Do not remove tape strips completely unless your doctor says it is okay. Check your cut area every day for signs of infection. Check for: ? More redness, swelling, or pain. ? More fluid or blood. ? Warmth. ? Pus or a bad smell. Ask your doctor how to clean the cut. This may include: ? Using mild soap and water. ? Using a clean towel to pat the cut dry after you clean it. ? Putting a cream or ointment on the cut. Do this only as told by your doctor. ? Covering the cut with a clean bandage. Ask your doctor when you can leave the cut uncovered. Do not take baths, swim, or use a hot tub until your doctor says it is okay. Ask your doctor if youcan take showers. You may only be allowed to take sponge baths for bathing. Medicines If you were prescribed an antibiotic medicine, cream, or ointment, take the antibiotic or put it onthe cut as told by your doctor. Do not stop taking or putting on the antibiotic even if your condition gets better. Take tphg-eek-wdomves and prescription medicines only as told by your doctor. General instructions Limit movement around your cut. This helps healing. ? Avoid straining, lifting, or exercise for the first month, or for as long as told by your doctor. ? Follow instructions from your doctor about going back to your normal activities. ? Ask your doctor what activities are safe. Protect your cut from the sun when you are outside for the first 6 months, or for as long as told by your doctor. Put on sunscreen around the scar or cover up the scar. Keep all follow-up visits as told by your doctor. This is important. Contact a doctor if: Your have more redness, swelling, or pain around the cut. You have more fluid or blood coming from the cut. Your cut feels warm to the touch. You have pus or a bad smell coming from the cut. You have a fever or shaking chills. You feel sick to your stomach (nauseous) or you throw up (vomit). You are dizzy. Your stitches or ariella come undone. Get help right away if: You have a red streak coming from your cut. Your cut bleeds through the bandage and the bleeding does not stop with gentle pressure. The edges of your cut open up and separate. You have very bad (severe) pain. You have a rash. You are confused. You pass out (faint). You have trouble breathing and you have a fast heartbeat. This information is not intended to replace advice given to you by your health care provider. Make sure you discuss any questions you have with your health care provider. Document Released: 10/20/2012 Document Revised: 12/16/2017 Document Reviewed: 04/05/2017 [employer] Patient Education 2020 [employer]. HEART CATHETERIZATION/PCI (groin) Discharge Instructions DIET INSTRUCTIONS Drink plenty of fluids for the next 48 hours to help your kidneys flush the heart cath dye out of your system ACTIVITIES May go up and down stairs CAREFULLY Do not drive car FOR 24 HOURS No heavy lifting GREATER THAN 10 POUNDS or pushing or straining FOR 2 DAYS Someone must stay with you at home after the procedure until the morning. BATHING/SHOWERING May tub bathe in 1 week May shower tomorrow WOUND CARE You will go home with a Band-Aid over your heart cath site. Keep a Band-Aid on for the next 24 hours and then leave open to air. Some degree of bruising and tenderness is normal around the heart cath site. It will take a while for any bruising to completely resolve. Keep your site clean and dry. You need to report the following to your post anesthesia nurse: Any draining or oozing from the site Any swelling at the site Any increased pain or tenderness at the site Any numbness in your leg where the procedure was done Any signs of infection IMPORTANT! CALL 911 FOR ANY BLEEDING OR SWELLING AT THE PROCEDURE SITE If there is any large amount of bleeding, you or someone else need to apply direct pressure to the site (just like the nurse did in the heart lab after your procedure). It is very important that you hold constant pressure. Do not release the pressure to check if the bleeding has stopped. You then need to be transported to the nearest emergency room. WATCH FOR SIGNS OF INFECTION (Usually appears 36-48 hours after surgery) A temperature above 100.5 Redness or swelling Increased pain Foul odor or drainage If you have any questions, please call your doctor at the number listed on your follow up instructions. Follow all instructions given to you by your physician Document Released: 07/29/2006 Document Revised: 07/15/2013 Document Reviewed: 07/30/2014 ExitCare Patient Information 2014 [employer]. This information is not intended to replace advicegiven to you by your health care provider. Make sure you discuss any questions you have with your health care provider. Additional Information VACCINATE! IT SAVES LIVES! Members of the community who have not yet received the COVID-19 vaccine and would like to receive it can visit one of [facility] vaccine clinics. There are many vaccine clinic locations within the [facility]. For locations and available times, please visit [email or web address].[place].gov/. It is important to note that some COVID mobile vaccine clinics are held outdoors and may be canceled in rainy or stormy conditions. To learn more about pediatric vaccinations (ages 5-11), we invite you to visit the [facility] webpage. [email or web address] learn more about the COVID-19 vaccine, we invite you to visit the CDC website for a list of frequently asked questions.https://www.cdc.gov/coronavirus/2019-ncov/vaccines/faq.html [facility] Patient Portal Access Instructions: Stay connected with your healthcare team and access your personal medical information anytime with the [facility] Patient Portal. Please follow the directions below to create your [facility] account: 1.Access the email account you provided upon registration to the hospital/physician office.2.Look for an invitation email from [facility].3.Open the email and access the invitation link: AcceptInvitation to [facility].4.Fill in the required wilkinson to create your account. To access your account, visit [employer] | [email or web address]. Click the blue button labeled Access Patient Portal and then log in with the username and password that you created in the steps above. You will be able to view your test results, lab results, a summary of your visits, upcoming appointments and more. There is also a convenient messaging option where you can send secure messages to your p [employer]Way[employer]ider. In addition, you will have the ability to download any documents or summaries to your computer and/or send the information securely to a physician. Remember that your healthcare information is confidential, so carefully consider who you will allowto register on the [facility] Patient Portal for access to your information. You can also access the [facility] Patient Portal on the [employer] samanta. Simply click on Patient Portal and then log into your account. If you would like to receive a full copy of your medical records, please contact the [facility] Medical Records Department by calling [phone], Saturday through Saturday between 8 a.m. and 4:30 p.m. HOW TO SAFELY DISPOSE OF PRESCRIPTION MEDICATIONS Please use one of the following methods to safely dispose of your unused medications. 1.Use a drug disposal kit: the drug disposal pouch allows you to safely discard your old and unuseddrugs. Ask your nurse to give you one when you are discharged.2.Visit a local take-back location: Many local pharmacies and police departments have programs that collect old and unwanted prescriptiondrugs. Call your local pharmacy or go to http://NuPotential.InSpa/5A2Lz0x to find one close to you.3.Make use of household items: Use cat litter or old coffee grounds to dispose medications if other options arenot available. Mix your drugs with these household products, seal them in an airtight container andthrow it into the garbage. Call [facility]: [phone] to be sure your drugs can be disposed of in this way. Some medicines may require a different approach.4.Never flush your medications down the toilet. IF YOU HAVE BEEN PRESCRIBED AN OPIOID FOR PAIN If you have been prescribed an opioid (such as hydrocodone, oxycodone or morphine), it is critical to understand the possible side effects and risks of opioid pain medications. Even when taken as directed, opioids can have several side effects including: Tolerance, meaning you might need to take more of a medication for the same pain relief. Nausea, vomiting and/or constipation. Sleepiness, dizziness, dry mouth, confusion, depression or itching. Physical dependence, meaning you have withdrawal symptoms when a medication is stopped, can develop within a few days. KNOW YOUR RESPONSIBILITIES It is important to know exactly how much and how often to take the opioid pain medications you are prescribed. Never take opioids in higher amounts or more often than prescribed. Do not combine opioids with alcohol or other drugs that cause drowsiness, such as benzodiazepines, also known as benzos, including diazepam and alprazolam, muscle relaxants or sleep aids. Never sell or share prescription opioids. This is illegal. Store opioids in a secure place and out of reach of others (including children, family, friends and visitors). The last page of this document has been signed and retained as a CHART COPY. Signatures Patient Education Materials Incision Care, Adult, Qtgz-df-Edtb 3- Heart Cath/PCI groin (05/2018)(CUSTOM) Medication Leaflets My discharge plan and instructions have been reviewed and explained to me and IROGER CARL M understand my current condition and have read and understand these discharge instructions. I have received a written copy of the plan/instructions. If I have questions, I am aware that I should contact my doctor. 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 NSTEMI Patient had chest pain on evening after doing some yard work During dialysis yesterday afternoon his blood pressure went to 70s and he had some chest pain Troponins: In 500s range HEART score: 7 Back in [11/19/2023]: S/p LAQUITA PCI x 2 to ostium of LCx Plan CONTINUE aspirin 81 mg p.o. daily CONTINUE clopidogrel 75 mg p.o. daily CONTINUE atorvastatin 40 mg p.o. daily 2. CAD Cardiac cath [09/06/2014]: PCI to proximal LCx Cardiac cath [11/19/2023]: PCI to proximal LCx As per the notes the patient had a dobutamine stress echo on 11/22/2021 which was normal Plan CONTINUE aspirin 81 mg p.o. daily CONTINUE atorvastatin 40 mg p.o. daily 3. ESRD On dialysis -MWF Plan FOLLOW nephrology recommendations 4. Acute on chronic HFpEF exacerbation Patient has been having shortness of breath for long time JVP: Elevated Open edema proBNP: 11 K Plan Will need dialysis for negative fluid balance Not on TALHA/ARB/ARNI because of ESRD status CONTINUE metoprolol succinate 25 mg p.o. daily CONTINUE furosemide 40 mg IVP every 12 hours 5. Hypertension Blood pressure in acceptable range Plan CONTINUE amlodipine 5 mg p.o. daily CONTINUE metoprolol titrate 25 mg p.o. daily 6. Hyperlipidemia Plan CONTINUE atorvastatin 40 mg p.o. day 7. GERD Denies current burning sensation in stomach Plan CONTINUE pantoprazole 40 mg p.o. daily 8. History of parathyroidectomy in 2012 9. Pneumonia Chest x-ray/developing left lower lobe infiltrate Plan Start ceftriaxone 2 g IVP every 24 hours START azithromycin 5 mg IVP every 24 hours Hospital Course Background: An 82-year-old male with PMH of CAD [s/p PCI to LCx; 2014], HFpEF, hyperlipidemia, ESRD on dialysis, GERD, baseline RBBB, was sent to [place] ED from dialysis center because of chest pain. --Chest pain since evening. He was doing some yard work and suddenly he noticed chest pain, substernal, sharp heaviness type, radiating to jaw, severity of 6/10, lasted for 10-15 minutes, relieved on its own Has baseline shortness of breath for a long time [11/19/2023]: For discharge today. [11/18/2023]: S/p PCI x 2 to LCx ostium. ... ... [11/16/2023]: Patient admitted from ED because of chest pain. Troponin 500s range. For cardiac cathon Saturday. Allergies lisinopril (Cough) Consults Consult to Physician (Physician Consult) - Ordered -- 11/16/23 1:16:00 EDT, JANA SINGH MD, Routine, ESRD on dialysis Consult to Spiritual Care Team (Consult to Pastoral Care) - Ordered -- 11/15/23 23:45:23 EDT Objective Vitals and Measurements T: 36.8 C (Oral) TMIN: 36.5 C (Oral) TMAX: 36.8 C (Oral) HR: 70(Monitored) RR: 16 BP: 110/47 SpO2: 92% WT: 76.5 kg Weight Dosing Weight: 76.5 kg (11/18/23) Dosing Weight: 77.6 kg (11/18/23) General: AAOX3, NAD HEENT: Anicteric sclera, MMM Neck: Trachea midline, JVP: Normal CVS: RRR, normal S1/S2, no murmurs/rubs/gallops Lung: CTAB, no wheezes/rhonchi/rales Abd: Soft, NT/ND Extrem: WWP, no LE edema Skin: Warm, Intact Neuro: AAOX3, spontaneous movement of all extremities Psych: Appropriate mood & affect Code Status Code Status - Ordered -- 11/16/23 1:16:00 EDT, Full Code, Constant Order Admission Date 11/15/2023 Discharge Date 11/19/2023 Medications New Prescription azithromycin (Azithromycin 3 Day Dose Pack 500 mg oral tablet)1 tab(s) by mouth once a day for 5 Days. Refills: 0. clopidogrel (Plavix 75 mg oral tablet)1 tab(s) by mouth once a day for 90 Days. Refills: 4. Changed aspirin (aspirin 81 mg oral delayed release tablet)1 tab(s) by mouth every day for 90 Days. Refills: 4. atorvastatin (atorvastatin 40 mg oral tablet)1 tab(s) by mouth daily at bedtime for 90 Days. Refills: 4. metoprolol (metoprolol succinate 25 mg oral TABLET extended release)1 tab(s) by mouth once a day with a meal for 30 Days. Refills: 2. Unchanged amLODIPine (amLODIPine 5 mg oral tablet)1 tab(s) by mouth once a day. Refills: 1. furosemide (Lasix 40 mg oral tablet)1 tab(s) by mouth once a day. Refills: 2. pantoprazole (pantoprazole 40 mg oral enteric coated tablet)1 tab(s) by mouth once a day. Refills: 1. Follow Up Follow Up with CLAIRE ANDINO MD When In 2 weeks Where: [address] [facility] [address] [facility] [place] [address]- [phone] Follow Up with Cardiac [facility] When Why: The Cardiac rehab department will call you to schedule you for Phase 2. If you have any questions please call us at [phone]. Thank you. Where: [facility] [address] [place] [address]- Follow Up with JULIO LICEA When Within 1-2 days Where: [address] [place] [address]- Business (1) Follow Up Appointments No qualifying data available. Follow Up Labs/Studies Discharge Labs No Follow-up Labs Discharge Studies No Follow-up Studies Discharge Diet Discharge Diet - Ordered -- Type of Diet: Cardiac, 11/19/23 10:38:00 EDT Discharge Activity Discharge Activity - Ordered -- Lifting Restricted less than 10 pounds, 11/19/23 10:38:00 EDT Condition on Discharge Stable Readmission Risk/Palliative Score LACE Score: 11 (11/18/23 12:03:00) Palliative Total Score: 2 (11/18/23 12:01:00) Discharge Disposition Home Digitally Signed by CINDY BARDALES MD on 11/19/2023 11:28 AM [facility] [id number] Nephrology Progress note Date of Service November 19, 2023 Subjective Cath done yesterday stenting done none noted Objective Vitals and Measurements T: 36.5 C (Oral) TMIN: 36.5 C (Oral) TMAX: 37.1 C (Skin) HR: 84(Monitored) RR: 18 BP: 108/46 SpO2: 93% WT: 76.5 kg Intake and Output 7AM Yesterday to 7AM Today Intake and Output (Last 24 hours) Intake Oral Intake 480.00 Output Urine Voided 200.00 Hemodialysis 2000.00 Total Summary Total Intake 480.00 Total Output 2200.00 Fluid Balance -1720.00 Physical Exam Weight Dosing Weight: 76.5 kg (11/18/23) Dosing Weight: 77.6 kg (11/18/23) General: Alert and oriented 3 Head: Normocephalic HEENT: Pupils equal reactive to light, extraocular muscles intact, membranes are moist, no icterus Neck: JVP CV: S1 S2 with 2/6 systolic murmur, no rub RESP: CTAB, no crackles or wheezing, no accessory muscle use, air exchange equal ABDOMINAL: Bowels sounds present soft negative rebound rigidity guarding or tenderness EXT: No cyanosis clubbing or edema avf +thrill and bruit Medications Medications (22) Active Scheduled: (8) amLODIPine 5 mg tablet 5 mg 1 tab(s), Oral, qDay aspirin 81 mg EC 81 mg 1 tab(s), Oral, Daily atorvastatin 40 mg tablet 40 mg 1 tab(s), Oral, qHS clopidogrel 75 mg Tablet 75 mg 1 tab(s), Oral, qDay furosemide 40 mg/4 mL vial 40 mg 4 mL, IV Push, BID metoprolol succinate 25 mg ER tablet 25 mg 1 tab(s), Oral, qDayM No metformin for 48 hrs post contrast 1 EA, Miscellaneous, Unscheduled pantoprazole 40 mg EC tablet 40 mg 1 tab(s), Oral, qDay Continuous: (0) PRN: (14) acetaminophen 325 mg Tablet 650 mg 2 tab(s), Oral, q4h albuterol - ipratropium 2.5 mg-0.5 mg/3 mL Inhal Ada UD 3 mL, Inhalation, q4hRT dextrose 50% Solution Disp syringe 50 mL 12.5 gram(s) 25 mL, IV Push, AsDirected docusate sodium 100 mg Capsule 100 mg 1 cap(s), Oral, BID magnesium hydroxide 8% Suspension 30 mL UD 30 mL, Oral, qHS magnesium sulfate 4 gram(s)/100mL PMX 4 g 100 mL, IV Piggyback, AsDirected magnesium sulfate 50% (500mg/mL) 6 g 12 mL, IV Piggyback, AsDirected magnesium sulfate PMX 2 g 50 mL, IV Piggyback, AsDirected ondansetron 2 mg/ 1 mL 2 mL INJ 4 mg 2 mL, IV Push, q4h polyethylene glycol 3350 - UD packet 17 gram(s) 15 mL, Oral, qDay potassium chloride (PMX) 20 mEq/100 mL 20 mEq 100 mL, IV Piggyback, AsDirected potassium chloride 20 mEq ER tablet 20 mEq 1 tab(s), Oral, AsDirected potassium chloride 20 mEq ER tablet 40 mEq 2 tab(s), Oral, AsDirected potassium chloride 20 mEq ER tablet 40 mEq 2 tab(s), Oral, AsDirected Lab Results 11/18 04:46 WBC: 9.0 Hgb: 9.4 L Hct: 27.9 L Platelet: 238 Neutrophil %: 77.8 H Glucose Level: 86 Sodium Level: 132 L Potassium Level: 4.4 BUN: 41.0 H Creatinine Lvl (s): 5.70 H 11/17 04:50 Glucose Level: 88 Sodium Level: 133 L Potassium Level: 4.9 BUN: 80.0 H Creatinine Lvl (s): 8.64 H EKG Electrocardiogram (EKG) - InProcess -- 11/16/23 1:16:00 EDT Electrocardiogram (EKG) - Ordered -- 11/18/23 14:36:00 EDT Assessment/Plan 1. Non-STEMI 2. Hyponatremia 3. ESRD [facility] Tier[facility] Dialysis tomorrow if discharged to follow-up at his outpatient unit Continue current care as per cardiology Sodium continue monitor electrolytes Discussed with patient in detail they had no further questions or concerns Please Avoid AV access arm. The patient should not receive Demerol or gadolinium unless emergently needed. The patient should continue on their normal dialysis schedule. This document was transcribed via voice recognition software and may contain typographical errors Digitally Signed by FAZAL RUIZ DO on 11/19/2023 10:13 AM [facility] [id number] Cardiology Progress note Date of Service 11/18/2023 Subjective Patient examined at bedside. Patient is alert oriented x 3. Denies any complaints. Background: An 82-year-old male with PMH of CAD [s/p PCI to LCx; 2014], HFpEF, hyperlipidemia, ESRD on dialysis, GERD, baseline RBBB, was sent to [place] ED from dialysis center because of chest pain. --Chest pain since evening. He was doing some yard work and suddenly he noticed chest pain, substernal, sharp heaviness type, radiating to jaw, severity of 6/10, lasted for 10-15 minutes, relieved on its own Has baseline shortness of breath for a long time [11/18/2023]: For cardiac cath today. ... ... [11/16/2023]: Patient admitted from ED because of chest pain. Troponin 500s range. For cardiac cathon Saturday. Objective Vitals and Measurements T: 37.1 C (Skin) TMIN: 36.6 C (Oral) TMAX: 37.2 C (Oral) HR: 82(Monitored) RR: 18 BP: 131/69 SpO2: 95% WT: 77.6 kg Intake and Output 7AM Yesterday to 7AM Today Intake and Output (Last 24 hours) Intake Oral Intake 240.00 Administration Information 37.11 Output Urine Voided 395.00 Stool Count 0.00 Total Summary Total Intake 277.11 Total Output 395.00 Fluid Balance -117.89 Physical Exam General: AAOX3, NAD HEENT: Anicteric sclera, MMM Neck: Trachea midline, JVP: Normal CVS: RRR, normal S1/S2, no murmurs/rubs/gallops Lung: CTAB, no wheezes/rhonchi/rales Abd: Soft, NT/ND Extrem: WWP, no LE edema Skin: Warm, Intact Neuro: AAOX3, spontaneous movement of all extremities Psych: Appropriate mood & affect Weight Dosing Weight: 77.6 kg (11/18/23) Dosing Weight: 77.3 kg (11/15/23) Medications Medications (22) Active Scheduled: (6) amLODIPine 5 mg tablet 5 mg 1 tab(s), Oral, qDay aspirin 81 mg EC 81 mg 1 tab(s), Oral, Daily atorvastatin 40 mg tablet 40 mg 1 tab(s), Oral, qHS furosemide 40 mg/4 mL vial 40 mg 4 mL, IV Push, BID metoprolol succinate 25 mg ER tablet 25 mg 1 tab(s), Oral, qDayM pantoprazole 40 mg EC tablet 40 mg 1 tab(s), Oral, qDay Continuous: (1) heparin 25,000 unit(s) [12 unit(s)/kg/hr] + Dextrose 5% Premix Diluent 250 mL 250 mL, Intravenous, 9.28 mL/hr PRN: (15) acetaminophen 325 mg Tablet 650 mg 2 tab(s), Oral, q4h albuterol - ipratropium 2.5 mg-0.5 mg/3 mL Inhal Ada UD 3 mL, Inhalation, q4hRT dextrose 50% Solution Disp syringe 50 mL 12.5 gram(s) 25 mL, IV Push, AsDirected docusate sodium 100 mg Capsule 100 mg 1 cap(s), Oral, BID heparin 5,000 units/mL (1 mL) vial 4,000 unit(s) 0.8 mL, IV Push, q6h magnesium hydroxide 8% Suspension 30 mL UD 30 mL, Oral, qHS magnesium sulfate 4 gram(s)/100mL PMX 4 g 100 mL, IV Piggyback, AsDirected magnesium sulfate 50% (500mg/mL) 6 g 12 mL, IV Piggyback, AsDirected magnesium sulfate PMX 2 g 50 mL, IV Piggyback, AsDirected ondansetron 2 mg/ 1 mL 2 mL INJ 4 mg 2 mL, IV Push, q4h polyethylene glycol 3350 - UD packet 17 gram(s) 15 mL, Oral, qDay potassium chloride (PMX) 20 mEq/100 mL 20 mEq 100 mL, IV Piggyback, AsDirected potassium chloride 20 mEq ER tablet 20 mEq 1 tab(s), Oral, AsDirected potassium chloride 20 mEq ER tablet 40 mEq 2 tab(s), Oral, AsDirected potassium chloride 20 mEq ER tablet 40 mEq 2 tab(s), Oral, AsDirected Lab Results 11/17 04:50 Glucose Level: 88 Sodium Level: 133 L Potassium Level: 4.9 BUN: 80.0 H Creatinine Lvl (s): 8.64 H 11/16 06:47 WBC: 8.6 Hgb: 9.8 L Hct: 29.6 L Platelet: 238 Neutrophil %: 74.9 Glucose Level: 99 Sodium Level: 133 L Potassium Level: 4.5 BUN: 59.0 H Creatinine Lvl (s): 7.40 H EKG No qualifying data available. Assessment/Plan 1. NSTEMI Patient had chest pain on evening after doing some yard work During dialysis yesterday afternoon his blood pressure went to 70s and he had some chest pain Troponins: In 500s range HEART score: 7 Plan CONTINUE heparin drip CONTINUE aspirin 81 mg. CONTINUE atorvastatin 40 mg p.o. daily For cardiac cath on Saturday 2. CAD Cardiac cath [09/06/2014]: PCI to proximal LCx As per the notes the patient had a dobutamine stress echo on 11/22/2021 which was normal Plan CONTINUE aspirin 81 mg p.o. daily CONTINUE atorvastatin 40 mg p.o. daily 3. ESRD On dialysis -MWF Plan FOLLOW nephrology recommendations 4. Acute on chronic HFpEF exacerbation Patient has been having shortness of breath for long time JVP: Elevated Open edema proBNP: 11 K Plan Will need dialysis for negative fluid balance Not on TALHA/ARB/ARNI because of ESRD status CONTINUE metoprolol succinate 25 mg p.o. daily CONTINUE furosemide 40 mg IVP every 12 hours 5. Hypertension Blood pressure in acceptable range Plan CONTINUE amlodipine 5 mg p.o. daily CONTINUE metoprolol titrate 25 mg p.o. daily 6. Hyperlipidemia Plan CONTINUE atorvastatin 40 mg p.o. day 7. GERD Denies current burning sensation in stomach Plan CONTINUE pantoprazole 40 mg p.o. daily 8. History of parathyroidectomy in 2013 Digitally Signed by CINDY BARDALES MD on 11/18/2023 09:30 AM [facility] [id number] NoteACCELERATED JUNCTIONAL RHYTHM RIGHT BUNDLE BRANCH BLOCK Electronic Signature: OMA ALVARADO MD 11/19/2023 21:57:21[facility] 04-08-2024 Note* Exam Date Time Procedure Performing Provider Status 11/18/23 1:04 PM Cardiac Catheterization -CV Auth (Verified) [facility] 04-08-2024 Cardiology Progress note Date of Service 11/18/2023 Subjective Patient examined at bedside. Patient is alert oriented x 3. Denies any complaints. Background: An 82-year-old male with PMH of CAD [s/p PCI to LCx; 2015], HFpEF, hyperlipidemia, ESRD on dialysis, GERD, baseline RBBB, was sent to [place] ED from dialysis center because of chest pain. --Chest pain since evening. He was doing some yard work and suddenly he noticed chest pain, substernal, sharp heaviness type, radiating to jaw, severity of 6/10, lasted for 10-15 minutes, relieved on its own Has baseline shortness of breath for a long time [11/18/2023]: For cardiac cath today. ... ... [11/16/2023]: Patient admitted from ED because of chest pain. Troponin 500s range. For cardiac cathon Saturday. Objective Vitals and Measurements T: 37.1 C (Skin) TMIN: 36.6 C (Oral) TMAX: 37.2 C (Oral) HR: 82(Monitored) RR: 18 BP: 131/69 SpO2: 95% WT: 77.6 kg Intake and Output 7AM Yesterday to 7AM Today Intake and Output (Last 24 hours) Intake Oral Intake 240.00 Administration Information 37.11 Output Urine Voided 395.00 Stool Count 0.00 Total Summary Total Intake 277.11 Total Output 395.00 Fluid Balance -117.89 Physical Exam General: AAOX3, NAD HEENT: Anicteric sclera, MMM Neck: Trachea midline, JVP: Normal CVS: RRR, normal S1/S2, no murmurs/rubs/gallops Lung: CTAB, no wheezes/rhonchi/rales Abd: Soft, NT/ND Extrem: WWP, no LE edema Skin: Warm, Intact Neuro: AAOX3, spontaneous movement of all extremities Psych: Appropriate mood & affect Weight Dosing Weight: 77.6 kg (11/18/23) Dosing Weight: 77.3 kg (11/15/23) Medications Medications (22) Active Scheduled: (6) amLODIPine 5 mg tablet 5 mg 1 tab(s), Oral, qDay aspirin 81 mg EC 81 mg 1 tab(s), Oral, Daily atorvastatin 40 mg tablet 40 mg 1 tab(s), Oral, qHS furosemide 40 mg/4 mL vial 40 mg 4 mL, IV Push, BID metoprolol succinate 25 mg ER tablet 25 mg 1 tab(s), Oral, qDayM pantoprazole 40 mg EC tablet 40 mg 1 tab(s), Oral, qDay Continuous: (1) heparin 25,000 unit(s) [12 unit(s)/kg/hr] + Dextrose 5% Premix Diluent 250 mL 250 mL, Intravenous, 9.28 mL/hr PRN: (15) acetaminophen 325 mg Tablet 650 mg 2 tab(s), Oral, q4h albuterol - ipratropium 2.5 mg-0.5 mg/3 mL Inhal Ada UD 3 mL, Inhalation, q4hRT dextrose 50% Solution Disp syringe 50 mL 12.5 gram(s) 25 mL, IV Push, AsDirected docusate sodium 100 mg Capsule 100 mg 1 cap(s), Oral, BID heparin 5,000 units/mL (1 mL) vial 4,000 unit(s) 0.8 mL, IV Push, q6h magnesium hydroxide 8% Suspension 30 mL UD 30 mL, Oral, qHS magnesium sulfate 4 gram(s)/100mL PMX 4 g 100 mL, IV Piggyback, AsDirected magnesium sulfate 50% (500mg/mL) 6 g 12 mL, IV Piggyback, AsDirected magnesium sulfate PMX 2 g 50 mL, IV Piggyback, AsDirected ondansetron 2 mg/ 1 mL 2 mL INJ 4 mg 2 mL, IV Push, q4h polyethylene glycol 3350 - UD packet 17 gram(s) 15 mL, Oral, qDay potassium chloride (PMX) 20 mEq/100 mL 20 mEq 100 mL, IV Piggyback, AsDirected potassium chloride 20 mEq ER tablet 20 mEq 1 tab(s), Oral, AsDirected potassium chloride 20 mEq ER tablet 40 mEq 2 tab(s), Oral, AsDirected potassium chloride 20 mEq ER tablet 40 mEq 2 tab(s), Oral, AsDirected Lab Results 11/17 04:50 Glucose Level: 88 Sodium Level: 133 L Potassium Level: 4.9 BUN: 80.0 H Creatinine Lvl (s): 8.64 H 11/16 06:47 WBC: 8.6 Hgb: 9.8 L Hct: 29.6 L Platelet: 238 Neutrophil %: 74.9 Glucose Level: 99 Sodium Level: 133 L Potassium Level: 4.5 BUN: 59.0 H Creatinine Lvl (s): 7.40 H EKG No qualifying data available. Assessment/Plan 1. NSTEMI Patient had chest pain on evening after doing some yard work During dialysis yesterday afternoon his blood pressure went to 70s and he had some chest pain Troponins: In 500s range HEART score: 7 Plan CONTINUE heparin drip CONTINUE aspirin 81 mg. CONTINUE atorvastatin 40 mg p.o. daily For cardiac cath on Saturday 2. CAD Cardiac cath [09/06/2014]: PCI to proximal LCx As per the notes the patient had a dobutamine stress echo on 11/22/2021 which was normal Plan CONTINUE aspirin 81 mg p.o. daily CONTINUE atorvastatin 40 mg p.o. daily 3. ESRD On dialysis -MWF Plan FOLLOW nephrology recommendations 4. Acute on chronic HFpEF exacerbation Patient has been having shortness of breath for long time JVP: Elevated Open edema proBNP: 11 K Plan Will need dialysis for negative fluid balance Not on TALHA/ARB/ARNI because of ESRD status CONTINUE metoprolol succinate 25 mg p.o. daily CONTINUE furosemide 40 mg IVP every 12 hours 5. Hypertension Blood pressure in acceptable range Plan CONTINUE amlodipine 5 mg p.o. daily CONTINUE metoprolol titrate 25 mg p.o. daily 6. Hyperlipidemia Plan CONTINUE atorvastatin 40 mg p.o. day 7. GERD Denies current burning sensation in stomach Plan CONTINUE pantoprazole 40 mg p.o. daily 8. History of parathyroidectomy in 2012 Digitally Signed by CINDY BARDALES MD on 11/18/2023 09:30 AM [facility] [id number] Nephrology Progress note Date of Service 11 18 23 Subjective Going for heart cath today Objective Vitals and Measurements T: 36.8 C (Oral) TMIN: 36.6 C (Oral) TMAX: 37.2 C (Oral) HR: 87(Monitored) RR: 20 BP: 110/50 SpO2: 95% Intake and Output 7AM Yesterday to 7AM Today Intake and Output (Last 24 hours) Intake Oral Intake 240.00 Administration Information 37.11 Output Urine Voided 275.00 Stool Count 0.00 Total Summary Total Intake 277.11 Total Output 275.00 Fluid Balance 2.11 Physical Exam Weight Dosing Weight: 77.3 kg (11/15/23) General: Alert and oriented 3 on dialysis Head: Normocephalic HEENT: Pupils equal reactive to light, extraocular muscles intact, membranes are moist, no icterus Neck: JVP CV: S1 S2 with 2/6 systolic murmur, no rub RESP: CTAB, no crackles or wheezing, no accessory muscle use, air exchange equal ABDOMINAL: Bowels sounds present soft negative rebound rigidity guarding or tenderness EXT: No cyanosis clubbing or edema avf +thrill and bruit [ Medications Medications (22) Active Scheduled: (6) amLODIPine 5 mg tablet 5 mg 1 tab(s), Oral, qDay aspirin 81 mg EC 81 mg 1 tab(s), Oral, Daily atorvastatin 40 mg tablet 40 mg 1 tab(s), Oral, qHS furosemide 40 mg/4 mL vial 40 mg 4 mL, IV Push, BID metoprolol succinate 25 mg ER tablet 25 mg 1 tab(s), Oral, qDayM pantoprazole 40 mg EC tablet 40 mg 1 tab(s), Oral, qDay Continuous: (1) heparin 25,000 unit(s) [12 unit(s)/kg/hr] + Dextrose 5% Premix Diluent 250 mL 250 mL, Intravenous, 9.28 mL/hr PRN: (15) acetaminophen 325 mg Tablet 650 mg 2 tab(s), Oral, q4h albuterol - ipratropium 2.5 mg-0.5 mg/3 mL Inhal Ada UD 3 mL, Inhalation, q4hRT dextrose 50% Solution Disp syringe 50 mL 12.5 gram(s) 25 mL, IV Push, AsDirected docusate sodium 100 mg Capsule 100 mg 1 cap(s), Oral, BID heparin 5,000 units/mL (1 mL) vial 4,000 unit(s) 0.8 mL, IV Push, q6h magnesium hydroxide 8% Suspension 30 mL UD 30 mL, Oral, qHS magnesium sulfate 4 gram(s)/100mL PMX 4 g 100 mL, IV Piggyback, AsDirected magnesium sulfate 50% (500mg/mL) 6 g 12 mL, IV Piggyback, AsDirected magnesium sulfate PMX 2 g 50 mL, IV Piggyback, AsDirected ondansetron 2 mg/ 1 mL 2 mL INJ 4 mg 2 mL, IV Push, q4h polyethylene glycol 3350 - UD packet 17 gram(s) 15 mL, Oral, qDay potassium chloride (PMX) 20 mEq/100 mL 20 mEq 100 mL, IV Piggyback, AsDirected potassium chloride 20 mEq ER tablet 20 mEq 1 tab(s), Oral, AsDirected potassium chloride 20 mEq ER tablet 40 mEq 2 tab(s), Oral, AsDirected potassium chloride 20 mEq ER tablet 40 mEq 2 tab(s), Oral, AsDirected Lab Results 11/17 04:50 Glucose Level: 88 Sodium Level: 133 L Potassium Level: 4.9 BUN: 80.0 H Creatinine Lvl (s): 8.64 H 11/16 06:47 WBC: 8.6 Hgb: 9.8 L Hct: 29.6 L Platelet: 238 Neutrophil %: 74.9 Glucose Level: 99 Sodium Level: 133 L Potassium Level: 4.5 BUN: 59.0 H Creatinine Lvl (s): 7.40 H EKG No qualifying data available. Time Spent 1. Non-STEMI 2. Hyponatremia 3. ESRD [facility] Dialysis now Continue current care as per cardiology Sodium continue monitor electrolytes Discussed with patient in detail they had no further questions or concerns Please Avoid AV access arm. The patient should not receive Demerol or gadolinium unless emergently needed. The patient should continue on their normal dialysis schedule. This document was transcribed via voice recognition software and may contain typographical errors Digitally Signed by FAZAL RUIZ DO on 11/18/2023 09:35 AM [facility] [id number] Cardiology Progress note Subjective No acute overnight events, patient denies chest pain or dyspnea Objective Vitals and Measurements T: 37.0 C (Axillary) TMIN: 36.3 C (Oral) TMAX: 37.0 C (Oral) HR: 82(Monitored) RR: 18 BP: 108/56 SpO2: 97% Intake and Output 7AM Yesterday to 7AM Today Intake and Output (Last 24 hours) Intake Oral Intake 240.00 Output Urine Voided 100.00 Urine Count 1.00 Total Summary Total Intake 240.00 Total Output 100.00 Fluid Balance 140.00 Physical Exam General Appearance: NAD Head: NCAT EENT: no gross abnormalities Neck: no JVD appreciated Cardiac: NS1S2 Lungs: CTAB Abdomen: soft, NT/ND Musculoskeletal: ROM wnl Extremities: no pitting edema Neurological: no focal deficits Skin: warm, dry Psychiatric: normal mentation Weight Dosing Weight: 77.3 kg (11/15/23) Medications Medications (22) Active Scheduled: (6) amLODIPine 5 mg tablet 5 mg 1 tab(s), Oral, qDay aspirin 81 mg EC 81 mg 1 tab(s), Oral, Daily atorvastatin 40 mg tablet 40 mg 1 tab(s), Oral, qHS furosemide 40 mg/4 mL vial 40 mg 4 mL, IV Push, BID metoprolol succinate 25 mg ER tablet 25 mg 1 tab(s), Oral, qDayM pantoprazole 40 mg EC tablet 40 mg 1 tab(s), Oral, qDay Continuous: (1) heparin 25,000 unit(s) [12 unit(s)/kg/hr] + Dextrose 5% Premix Diluent 250 mL 250 mL, Intravenous, 9.28 mL/hr PRN: (15) acetaminophen 325 mg Tablet 650 mg 2 tab(s), Oral, q4h albuterol - ipratropium 2.5 mg-0.5 mg/3 mL Inhal Ada UD 3 mL, Inhalation, q4hRT dextrose 50% Solution Disp syringe 50 mL 12.5 gram(s) 25 mL, IV Push, AsDirected docusate sodium 100 mg Capsule 100 mg 1 cap(s), Oral, BID heparin 5,000 units/mL (1 mL) vial 4,000 unit(s) 0.8 mL, IV Push, q6h magnesium hydroxide 8% Suspension 30 mL UD 30 mL, Oral, qHS magnesium sulfate 4 gram(s)/100mL PMX 4 g 100 mL, IV Piggyback, AsDirected magnesium sulfate 50% (500mg/mL) 6 g 12 mL, IV Piggyback, AsDirected magnesium sulfate PMX 2 g 50 mL, IV Piggyback, AsDirected ondansetron 2 mg/ 1 mL 2 mL INJ 4 mg 2 mL, IV Push, q4h polyethylene glycol 3350 - UD packet 17 gram(s) 15 mL, Oral, qDay potassium chloride (PMX) 20 mEq/100 mL 20 mEq 100 mL, IV Piggyback, AsDirected potassium chloride 20 mEq ER tablet 20 mEq 1 tab(s), Oral, AsDirected potassium chloride 20 mEq ER tablet 40 mEq 2 tab(s), Oral, AsDirected potassium chloride 20 mEq ER tablet 40 mEq 2 tab(s), Oral, AsDirected Lab Results 11/16 06:47 WBC: 8.6 Hgb: 9.8 L Hct: 29.6 L Platelet: 238 Neutrophil %: 74.9 Glucose Level: 99 Sodium Level: 133 L Potassium Level: 4.5 BUN: 59.0 H Creatinine Lvl (s): 7.40 H 11/15 01:53 WBC: 8.2 Hgb: 10.0 L Hct: 29.3 L Platelet: 247 Neutrophil %: 71.8 Protime: 12.5 PT International Ratio: 1.1 Glucose Level: 97 Sodium Level: 135 L Potassium Level: 4.0 BUN: 34.0 H Creatinine Lvl (s): 4.67 H EKG EKG - Completed -- 11/15/23 23:56:00 EDT EKG - Completed -- 11/16/23 4:16:00 EDT, Unless 2 EKGs already done in the past 6 hours Assessment/Plan 1. NSTEMI Patient had chest pain on evening after doing some yard work During dialysis yesterday afternoon his blood pressure went to 70s and he had some chest pain Troponins: In 500s range HEART score: 7 Plan cont heparin drip CONTINUE aspirin 81 mg. CONTINUE atorvastatin 40 mg p.o. daily For cardiac cath om Saturday 2. CAD Cardiac cath [09/06/2014]: PCI to proximal LCx As per the notes the patient had a dobutamine stress echo on 11/22/2021 which was normal Plan CONTINUE aspirin 81 mg p.o. daily CONTINUE atorvastatin 40 mg p.o. daily 3. ESRD On dialysis -MWF Plan Will call in nephrology for maintenance HD 4. Acute on chronic HFpEF exacerbation Patient has been having shortness of breath for long time JVP: Elevated Open edema proBNP: 11 K Plan Will need dialysis for negative fluid balance Not on TALHA/ARB/ARNI because of ESRD status CONTINUE metoprolol succinate 25 mg p.o. daily Management per dialysis 5. Hypertension Blood pressure in acceptable range Plan CONTINUE amlodipine 5 mg p.o. daily CONTINUE metoprolol titrate 25 mg p.o. daily 6. Hyperlipidemia Plan CONTINUE atorvastatin 40 mg p.o. day 7. GERD Denies current burning sensation in stomach Plan CONTINUE pantoprazole 40 mg p.o. daily 8. History of parathyroidectomy in 2012 Digitally Signed by NEHEMIAH MCKEON MD on 11/17/2023 01:19 PM [id number] History and physical note Date of Service 11/16/2023 Chief Complaint Chest pain History of Present Illness An 82-year-old male with PMH of CAD [s/p PCI to LCx; 2014], HFpEF, hyperlipidemia, ESRD on dialysis, GERD, baseline RBBB, was sent to [place] ED from dialysis center because of chest pain. On encounter, the patient was examined in room 317. He was alone. He stated that he has: --Chest pain since evening. He was doing some yard work and suddenly he noticed chest pain, substernal, sharp heaviness type, radiating to jaw, severity of 6/10, lasted for 10-15 minutes, relieved on its own Has baseline shortness of breath for a long time Denies palpitations, cough, PND, orthopnea Denies abdominal pain Denies bowel bladder disturbances [place] [facility] course: At [place] [facility], the patient was vitally stable. His initial labs were suggestive of normal CBC, mild hypokalemia, baseline elevation in creatinine, proBNP of 11.4 K and troponin in 500s range. [facility]. Review of Systems General: negative for weight change, fevers/night sweats/chills, fatigue/weakness Skin: negative for skin changes HEENT: negative for headache, visual changes, hearing loss, rhinorrhea/congestion/epistaxis, bleeding gums, hoarseness/sore throat Breasts: negative for skin changes, discharge Cardiac: Chest pain, shortness of breath negative for murmurs, palpitations, orthopnea, PND, edema Pulmonary: Shortness of breath negative for wheezing, cough, sputum/hemoptysis, PNA, asthma/bronchitis/COPD GI: negative for N/V, change in appetite, dysphagia, change in BM, stool color, hematemesis/melena/hematochezia, constipation/diarrhea : negative for polydipsia, polyuria, hematuria, dysuria, nocturia MSK: negative for muscle weakness, joint pain/stiffness, redness/swelling Heme: negative for anemia, easy bruising Neurologic: negative for loss of sensation/numbness/tingling, weakness/paralysis Physical Exam Vitals and Measurements T: 36.7 C (Oral) HR: 84(Apical) RR: 18 BP: 130/52 SpO2: 96% HT: 170.2 cm WT: 77.3 kg BMI: 26.68 Weight Dosing Weight: 77.3 kg (11/15/23) General: AAOX3, NAD HEENT: Anicteric sclera, MMM Neck: Trachea midline, JVP: Elevated CVS: RRR, normal S1/S2, no murmurs/rubs/gallops Lung: CTAB, no wheezes/rhonchi/rales Abd: Soft, NT/ND Extrem: WWP, no LE edema Skin: Warm, Intact Neuro: AAOX3, spontaneous movement of all extremities Psych: Appropriate mood & affect Lab Results No 36 Hour Lab Data Assessment/Plan 1. NSTEMI Patient had chest pain on evening after doing some yard work During dialysis yesterday afternoon his blood pressure went to 70s and he had some chest pain Troponins: In 500s range HEART score: 7 Plan START heparin drip CONTINUE aspirin 81 mg. CONTINUE atorvastatin 40 mg p.o. daily For cardiac cath om Saturday 2. CAD Cardiac cath [09/06/2014]: PCI to proximal LCx As per the notes the patient had a dobutamine stress echo on 11/22/2021 which was normal Plan CONTINUE aspirin 81 mg p.o. daily CONTINUE atorvastatin 40 mg p.o. daily 3. ESRD On dialysis -MWF Plan Will call in nephrology for maintenance HD 4. Acute on chronic HFpEF exacerbation Patient has been having shortness of breath for long time JVP: Elevated Open edema proBNP: 11 K Plan Will need dialysis for negative fluid balance Not on TALHA/ARB/ARNI because of ESRD status CONTINUE metoprolol succinate 25 mg p.o. daily HOLD p.o. furosemide Start furosemide 40 mg IVP every 12 hours 5. Hypertension Blood pressure in acceptable range Plan CONTINUE amlodipine 5 mg p.o. daily CONTINUE metoprolol titrate 25 mg p.o. daily 6. Hyperlipidemia Plan CONTINUE atorvastatin 40 mg p.o. day 7. GERD Denies current burning sensation in stomach Plan CONTINUE pantoprazole 40 mg p.o. daily 8. History of parathyroidectomy in 2012 Problem List/Past Medical History Ongoing Anemia CAD IN [place] Chronic heart failure with preserved ejection fraction (HFpEF) CKD (chronic kidney disease) DYSLIPIDEMIA ESRD on dialysis GERD - Gastro-esophageal reflux disease H/O NON-ST ELEVATION MYOCARDIAL INFARCTION (NSTEMI) HYPERTENSION, BENIGN Mild aortic regurgitation Mild mitral regurgitation Moderate aortic stenosis OVERWEIGHT (BMI 25.0-29.9) Parathyroidectomy PREOPERATIVE CLEARANCE PVC (PREMATURE VENTRICULAR CONTRACTION) PVCs (premature ventricular contractions) Smoker Historical No qualifying data Procedure/Surgical History PCI - Percutaneous coronary intervention: 09/06/14 Cardiac catheterization, combined right and left heart: 09/06/14 Placement of stent in coronary artery: 09/04/14 Excision of parathyroid gland: 2012 Cystoscopic laser lithotripsy of ureteric calculus: 1960 Hand Blood transfusion Hernia repair Colonoscopy Endoscopy Medications Home Medications (6) Active amLODIPine 5 mg oral tablet 5 mg = 1 tab(s), Oral, qDay aspirin 81 mg oral delayed release tablet 81 mg = 1 tab(s), Oral, Daily atorvastatin 40 mg oral tablet 40 mg = 1 tab(s), Oral, qHS Lasix 40 mg oral tablet 40 mg = 1 tab(s), Oral, qDay metoprolol tartrate 50 mg oral tablet See Instructions pantoprazole 40 mg oral enteric coated tablet 1 tab(s), Oral, qDay Allergies lisinopril (Cough) Social History Smoking Status - 09/04/2014 Former smoker Alcohol Use: Current. Type: Liquor. Frequency: 1-2 times per week., 11/06/2018 Nutrition/Health Caffeine intake amount: 1-2 cups per day., 11/30/2021 Substance Abuse Use: Never., 11/06/2018 Tobacco Tobacco Use: Former smoker, quit more than 30 days ago. Type: Cigarettes. Tobacco use per day: 30. Number of years: 17., 11/06/2018 Family History Cancer: Mother and Father. Cancer: Brother. Heart disease: Father. Immunizations pneumococcal 13-valent conjugate vaccine: 0 unknown unit (12/24/14) pneumococcal 23-valent vaccine(Pneumovax: 0.5 unknown unit (03/04/17) SARS-CoV-2 (COVID-19) mRNA-1273 vaccine: 0.25 unknown unit (07/31/21) SARS-CoV-2 (COVID-19) mRNA-1273 vaccine: 0.5 unknown unit (11/08/20) SARS-CoV-2 (COVID-19) mRNA-1273 vaccine: 0.5 unknown unit (10/11/20) tetanus/diphth/pertuss (Tdap) adult/adol: 0.5 mL (10/31/18) Code Status No qualifying data available. Digitally Signed by CINDY BARDALES MD on 11/16/2023 08:38 AM [facility] [id number] Cardiology Progress note Subjective No acute overnight events, patient denies chest pain or dyspnea Objective Vitals and Measurements T: 37.0 C (Axillary) TMIN: 36.3 C (Oral) TMAX: 37.0 C (Oral) HR: 82(Monitored) RR: 18 BP: 108/56 SpO2: 97% Intake and Output 7AM Yesterday to 7AM Today Intake and Output (Last 24 hours) Intake Oral Intake 240.00 Output Urine Voided 100.00 Urine Count 1.00 Total Summary Total Intake 240.00 Total Output 100.00 Fluid Balance 140.00 Physical Exam General Appearance: NAD Head: NCAT EENT: no gross abnormalities Neck: no JVD appreciated Cardiac: NS1S2 Lungs: CTAB Abdomen: soft, NT/ND Musculoskeletal: ROM wnl Extremities: no pitting edema Neurological: no focal deficits Skin: warm, dry Psychiatric: normal mentation Weight Dosing Weight: 77.3 kg (11/15/23) Medications Medications (22) Active Scheduled: (6) amLODIPine 5 mg tablet 5 mg 1 tab(s), Oral, qDay aspirin 81 mg EC 81 mg 1 tab(s), Oral, Daily atorvastatin 40 mg tablet 40 mg 1 tab(s), Oral, qHS furosemide 40 mg/4 mL vial 40 mg 4 mL, IV Push, BID metoprolol succinate 25 mg ER tablet 25 mg 1 tab(s), Oral, qDayM pantoprazole 40 mg EC tablet 40 mg 1 tab(s), Oral, qDay Continuous: (1) heparin 25,000 unit(s) [12 unit(s)/kg/hr] + Dextrose 5% Premix Diluent 250 mL 250 mL, Intravenous, 9.28 mL/hr PRN: (15) acetaminophen 325 mg Tablet 650 mg 2 tab(s), Oral, q4h albuterol - ipratropium 2.5 mg-0.5 mg/3 mL Inhal Ada UD 3 mL, Inhalation, q4hRT dextrose 50% Solution Disp syringe 50 mL 12.5 gram(s) 25 mL, IV Push, AsDirected docusate sodium 100 mg Capsule 100 mg 1 cap(s), Oral, BID heparin 5,000 units/mL (1 mL) vial 4,000 unit(s) 0.8 mL, IV Push, q6h magnesium hydroxide 8% Suspension 30 mL UD 30 mL, Oral, qHS magnesium sulfate 4 gram(s)/100mL PMX 4 g 100 mL, IV Piggyback, AsDirected magnesium sulfate 50% (500mg/mL) 6 g 12 mL, IV Piggyback, AsDirected magnesium sulfate PMX 2 g 50 mL, IV Piggyback, AsDirected ondansetron 2 mg/ 1 mL 2 mL INJ 4 mg 2 mL, IV Push, q4h polyethylene glycol 3350 - UD packet 17 gram(s) 15 mL, Oral, qDay potassium chloride (PMX) 20 mEq/100 mL 20 mEq 100 mL, IV Piggyback, AsDirected potassium chloride 20 mEq ER tablet 20 mEq 1 tab(s), Oral, AsDirected potassium chloride 20 mEq ER tablet 40 mEq 2 tab(s), Oral, AsDirected potassium chloride 20 mEq ER tablet 40 mEq 2 tab(s), Oral, AsDirected Lab Results 11/16 06:47 WBC: 8.6 Hgb: 9.8 L Hct: 29.6 L Platelet: 238 Neutrophil %: 74.9 Glucose Level: 99 Sodium Level: 133 L Potassium Level: 4.5 BUN: 59.0 H Creatinine Lvl (s): 7.40 H 11/15 01:53 WBC: 8.2 Hgb: 10.0 L Hct: 29.3 L Platelet: 247 Neutrophil %: 71.8 Protime: 12.5 PT International Ratio: 1.1 Glucose Level: 97 Sodium Level: 135 L Potassium Level: 4.0 BUN: 34.0 H Creatinine Lvl (s): 4.67 H EKG EKG - Completed -- 11/15/23 23:56:00 EDT EKG - Completed -- 11/16/23 4:16:00 EDT, Unless 2 EKGs already done in the past 6 hours Assessment/Plan 1. NSTEMI Patient had chest pain on evening after doing some yard work During dialysis yesterday afternoon his blood pressure went to 70s and he had some chest pain Troponins: In 500s range HEART score: 7 Plan cont heparin drip CONTINUE aspirin 81 mg. CONTINUE atorvastatin 40 mg p.o. daily For cardiac cath om Saturday 2. CAD Cardiac cath [09/06/2014]: PCI to proximal LCx As per the notes the patient had a dobutamine stress echo on 11/22/2021 which was normal Plan CONTINUE aspirin 81 mg p.o. daily CONTINUE atorvastatin 40 mg p.o. daily 3. ESRD On dialysis -MWF Plan Will call in nephrology for maintenance HD 4. Acute on chronic HFpEF exacerbation Patient has been having shortness of breath for long time JVP: Elevated Open edema proBNP: 11 K Plan Will need dialysis for negative fluid balance Not on TALHA/ARB/ARNI because of ESRD status CONTINUE metoprolol succinate 25 mg p.o. daily Management per dialysis 5. Hypertension Blood pressure in acceptable range Plan CONTINUE amlodipine 5 mg p.o. daily CONTINUE metoprolol titrate 25 mg p.o. daily 6. Hyperlipidemia Plan CONTINUE atorvastatin 40 mg p.o. day 7. GERD Denies current burning sensation in stomach Plan CONTINUE pantoprazole 40 mg p.o. daily 8. History of parathyroidectomy in 2012 Digitally Signed by NEHEMIAH MCKEON MD on 11/17/2023 01:19 PM [facility] [id number] Nephrology Progress note Objective Vitals and Measurements T: 36.7 C (Oral) TMIN: 36.3 C (Oral) TMAX: 37.0 C (Oral) HR: 102(Apical) RR: 18 BP: 116/50 SpO2: 96% Intake and Output 7AM Yesterday to 7AM Today Intake and Output (Last 24 hours) Intake Oral Intake 360.00 Output Urine Voided 200.00 Urine Count 1.00 Total Summary Total Intake 360.00 Total Output 200.00 Fluid Balance 160.00 Physical Exam Weight Dosing Weight: 77.3 kg (11/15/23) General: Alert and oriented 3 Head: Normocephalic HEENT: Pupils equal reactive to light, extraocular muscles intact, membranes are moist, no icterus Neck: JVP CV: S1 S2 with 2/6 systolic murmur, no rub RESP: CTAB, no crackles or wheezing, no accessory muscle use, air exchange equal ABDOMINAL: Bowels sounds present soft negative rebound rigidity guarding or tenderness EXT: No cyanosis clubbing or edema avf +thrill and bruit [1] Medications Medications (22) Active Scheduled: (6) amLODIPine 5 mg tablet 5 mg 1 tab(s), Oral, qDay aspirin 81 mg EC 81 mg 1 tab(s), Oral, Daily atorvastatin 40 mg tablet 40 mg 1 tab(s), Oral, qHS furosemide 40 mg/4 mL vial 40 mg 4 mL, IV Push, BID metoprolol succinate 25 mg ER tablet 25 mg 1 tab(s), Oral, qDayM pantoprazole 40 mg EC tablet 40 mg 1 tab(s), Oral, qDay Continuous: (1) heparin 25,000 unit(s) [12 unit(s)/kg/hr] + Dextrose 5% Premix Diluent 250 mL 250 mL, Intravenous, 9.28 mL/hr PRN: (15) acetaminophen 325 mg Tablet 650 mg 2 tab(s), Oral, q4h albuterol - ipratropium 2.5 mg-0.5 mg/3 mL Inhal Ada UD 3 mL, Inhalation, q4hRT dextrose 50% Solution Disp syringe 50 mL 12.5 gram(s) 25 mL, IV Push, AsDirected docusate sodium 100 mg Capsule 100 mg 1 cap(s), Oral, BID heparin 5,000 units/mL (1 mL) vial 4,000 unit(s) 0.8 mL, IV Push, q6h magnesium hydroxide 8% Suspension 30 mL UD 30 mL, Oral, qHS magnesium sulfate 4 gram(s)/100mL PMX 4 g 100 mL, IV Piggyback, AsDirected magnesium sulfate 50% (500mg/mL) 6 g 12 mL, IV Piggyback, AsDirected magnesium sulfate PMX 2 g 50 mL, IV Piggyback, AsDirected ondansetron 2 mg/ 1 mL 2 mL INJ 4 mg 2 mL, IV Push, q4h polyethylene glycol 3350 - UD packet 17 gram(s) 15 mL, Oral, qDay potassium chloride (PMX) 20 mEq/100 mL 20 mEq 100 mL, IV Piggyback, AsDirected potassium chloride 20 mEq ER tablet 20 mEq 1 tab(s), Oral, AsDirected potassium chloride 20 mEq ER tablet 40 mEq 2 tab(s), Oral, AsDirected potassium chloride 20 mEq ER tablet 40 mEq 2 tab(s), Oral, AsDirected Lab Results 11/16 06:47 WBC: 8.6 Hgb: 9.8 L Hct: 29.6 L Platelet: 238 Neutrophil %: 74.9 Glucose Level: 99 Sodium Level: 133 L Potassium Level: 4.5 BUN: 59.0 H Creatinine Lvl (s): 7.40 H 11/15 01:53 WBC: 8.2 Hgb: 10.0 L Hct: 29.3 L Platelet: 247 Neutrophil %: 71.8 Protime: 12.5 PT International Ratio: 1.1 Glucose Level: 97 Sodium Level: 135 L Potassium Level: 4.0 BUN: 34.0 H Creatinine Lvl (s): 4.67 H EKG EKG - Completed -- 11/15/23 23:56:00 EDT EKG - Completed -- 11/16/23 4:16:00 EDT, Unless 2 EKGs already done in the past 6 hours Assessment/Plan 1. Non-STEMI 2. Hyponatremia 3. ESRD MWF [facility] [place] Just on Saturday Continue current care as per cardiology Sodium continue monitor electrolytes Discussed with patient in detail they had no further questions or concerns Please Avoid AV access arm. The patient should not receive Demerol or gadolinium unless emergently needed. The patient should continue on their normal dialysis schedule. This document was transcribed via voice recognition software and may contain typographical errors [1] Consult Note; FAZAL RUIZ DO 11/16/2023 06:58 EDT Digitally Signed by FAZAL RUIZ DO on 11/17/2023 09:47 AM [facility] [id number] Evaluation + Plan noteExtracted from: Title:History and Physical Author:CINDY BARDALES MD Date:11/16/23 1. NSTEMI Patient had chest pain on evening after doing some yard work During dialysis yesterday afternoon his blood pressure went to 70s and he had some chest pain Troponins: In 500s range HEART score: 7 Plan START heparin drip CONTINUE aspirin 81 mg. CONTINUE atorvastatin 40 mg p.o. daily For cardiac cath om Saturday 2. CAD Cardiac cath [09/06/2014]: PCI to proximal LCx As per the notes the patient had a dobutamine stress echo on 11/22/2021 which was normal Plan CONTINUE aspirin 81 mg p.o. daily CONTINUE atorvastatin 40 mg p.o. daily 3. ESRD On [facility] Plan Will call in nephrology for maintenance HD 4. Acute on chronic HFpEF exacerbation Patient has been having shortness of breath for long time JVP: Elevated Open edema proBNP: 11 K Plan Will need dialysis for negative fluid balance Not on TALHA/ARB/ARNI because of ESRD status CONTINUE metoprolol succinate 25 mg p.o. daily HOLD p.o. furosemide Start furosemide 40 mg IVP every 12 hours 5. Hypertension Blood pressure in acceptable range Plan CONTINUE amlodipine 5 mg p.o. daily CONTINUE metoprolol titrate 25 mg p.o. daily 6. Hyperlipidemia Plan CONTINUE atorvastatin 40 mg p.o. day 7. GERD Denies current burning sensation in stomach Plan CONTINUE pantoprazole 40 mg p.o. daily 8. History of parathyroidectomy in 2012 Addendum by WALTER ANDINO MD on November 17, 2023 18:40:49 EDT I have personally seen, examined, and evaluated the patient on the encounter date. I have reviewed the fellow s documentation and agree with the fellow s findings and plan as documented, unless otherwise stated. Future Appointments Appointment Date:2023 10:00:00 AM Scheduled Provider:FRANCIS PEPE Location:[facility] Appointment Type:CV OV Hospital Follow Up [facility] 04-06-2024 NoteSINUS RHYTHM VENTRICULAR PREMATURE COMPLEX PROLONGED DC INTERVAL RIGHT BUNDLE BRANCH BLOCK INFERIOR INFARCT, AGE INDETERMINATE Electronic Signature: BRANDY BLANDON MD 11/16/2023 16:41:57[facility] 04-06-2024 Nephrology Consult note Date of Service 11/16/2023 Reason for Consultation Renal failure Referring Physician Dr. Danielson History of Present Illness 82-year-old male presents to hospital with non-STEMI. Patient does have a known history of ESRDPatient does normally dialyze in [place] under the care of Dr. Zayas 1 was a Saturday he did have his treatment yesterday presently not having any chest pain patient has been admitted to the cardiac service. Shortness of breath is no worse. Chest x-ray showed a right lower lobe possible pneumonia no pulmonary edema was noted. Review of Systems Review of systems is negative 10 other than what noted in HPI. Physical Exam Vitals and Measurements T: 36.8 C (Oral) TMIN: 36.7 C (Oral) TMAX: 36.8 C (Oral) HR: 75(Monitored) RR: 18 BP: 128/56 SpO2: 100% HT: 170.2 cm WT: 77.3 kg BMI: 26.68 Weight Dosing Weight: 77.3 kg (11/15/23) General: Alert and oriented 3 Head: Normocephalic HEENT: Pupils equal reactive to light, extraocular muscles intact, membranes are moist, no icterus Neck: JVP CV: S1 S2 with 2/6 systolic murmur, no rub RESP: CTAB, no crackles or wheezing, no accessory muscle use, air exchange equal ABDOMINAL: Bowels sounds present soft negative rebound rigidity guarding or tenderness EXT: No cyanosis clubbing or edema avf +thrill and bruit NEURO:Cranial nerves II through XII grossly intact, no dysarthric speech detected, DTRs +2 out of 4 Vascular: Pulses +2 out of 4 and equal Skin:[warm and dry : deferred Rectal:Deferred Breast:Deferred Lab Results 11/15 01:53 WBC: 8.2 Hgb: 10.0 L Hct: 29.3 L Platelet: 247 Neutrophil %: 71.8 Protime: 12.5 PT International Ratio: 1.1 Glucose Level: 97 Sodium Level: 135 L Potassium Level: 4.0 BUN: 34.0 H Creatinine Lvl (s): 4.67 H Assessment/Plan 1. Non-STEMI 2. Hyponatremia 3. ESRD F [facility] [place] Continue current care as per cardiology Sodium continue monitor electrolytes Discussed with patient in detail they had no further questions or concerns Please Avoid AV access arm. The patient should not receive Demerol or gadolinium unless emergently needed. The patient should continue on their normal dialysis schedule. This document was transcribed via voice recognition software and may contain typographical errors. Thank you for allowing me to participate in the care of this patient Problem List/Past Medical History Ongoing Anemia CAD IN [place] Chronic heart failure with preserved ejection fraction (HFpEF) CKD (chronic kidney disease) DYSLIPIDEMIA ESRD on dialysis GERD - Gastro-esophageal reflux disease H/O NON-ST ELEVATION MYOCARDIAL INFARCTION (NSTEMI) HYPERTENSION, BENIGN Mild aortic regurgitation Mild mitral regurgitation Moderate aortic stenosis OVERWEIGHT (BMI 25.0-29.9) Parathyroidectomy PREOPERATIVE CLEARANCE PVC (PREMATURE VENTRICULAR CONTRACTION) PVCs (premature ventricular contractions) Smoker Historical No qualifying data Procedure/Surgical History PCI - Percutaneous coronary intervention: 09/06/14 Cardiac catheterization, combined right and left heart: 09/06/14 Placement of stent in coronary artery: 09/04/14 Excision of parathyroid gland: 2012 Cystoscopic laser lithotripsy of ureteric calculus: 1959 Hand Blood transfusion Hernia repair Colonoscopy Endoscopy Medications Inpatient amLODIPine, 5 mg= 1 tab(s), Oral, qDay aspirin 81 mg oral delayed release tablet, 81 mg= 1 tab(s), Oral, Daily atorvastatin, 40 mg= 1 tab(s), Oral, qHS Colace, 100 mg= 1 cap(s), Oral, BID, PRN Dextrose 50% IV Push, 12.5 gram(s)= 25 mL, IV Push, AsDirected, PRN DuoNeb, 3 mL, Inhalation, q4hRT, PRN furosemide, 40 mg= 4 mL, IV Push, BID Heparin for IV 25,000 unit(s) [12 unit(s)/kg/hr] + Dextrose 5% Premix Diluent 250 mL Heparin HBW CARDIAC Bolus 5000 units/mL, 4000 unit(s)= 0.8 mL, 60 unit(s)/kg, IV Push, q6h, PRN magnesium sulfate for IV bolus, 2 gram(s)= 50 mL, IV Piggyback, AsDirected, PRN magnesium sulfate for IV bolus, 4 gram(s)= 100 mL, IV Piggyback, AsDirected, PRN magnesium sulfate for IV bolus metoprolol tartrate 50 mg oral tablet, 25 mg= 0.5 tab(s), Oral, qDayM Milk of Magnesia, 30 mL, Oral, qHS, PRN Miralax Powder Packet, 17 gram(s)= 15 mL, Oral, qDay, PRN pantoprazole, 40 mg= 1 tab(s), Oral, qDay potassium chloride, 20 mEq= 1 tab(s), Oral, AsDirected, PRN potassium chloride, 40 mEq= 2 tab(s), Oral, AsDirected, PRN potassium chloride, 40 mEq= 2 tab(s), Oral, AsDirected, PRN potassium chloride bolus, 20 mEq= 100 mL, IV Piggyback, AsDirected, PRN Tylenol, 650 mg= 2 tab(s), Oral, q4h, PRN Zofran, 4 mg= 2 mL, IV Push, q4h, PRN Home amLODIPine 5 mg oral tablet, 5 mg= 1 tab(s), Oral, qDay, 1 refills aspirin 81 mg oral delayed release tablet, 81 mg= 1 tab(s), Oral, Daily atorvastatin 40 mg oral tablet, 40 mg= 1 tab(s), Oral, qHS Lasix 40 mg oral tablet, 40 mg= 1 tab(s), Oral, qDay, 2 refills metoprolol tartrate 50 mg oral tablet, See Instructions pantoprazole 40 mg oral enteric coated tablet, 1 tab(s), Oral, qDay, 1 refills Allergies lisinopril (Cough) Social History Smoking Status - 09/04/2014 Former smoker Alcohol Use: Current. Type: Liquor. Frequency: 1-2 times per week., 11/06/2018 Nutrition/Health Caffeine intake amount: 1-2 cups per day., 11/30/2021 Substance Abuse Use: Never., 11/06/2018 Tobacco Tobacco Use: Former smoker, quit more than 30 days ago. Type: Cigarettes. Tobacco use per day: 30. Number of years: 17., 11/06/2018 Family History Cancer: Mother and Father. Cancer: Brother. Heart disease: Father. Immunizations pneumococcal 13-valent conjugate vaccine: 0 unknown unit (12/24/14) pneumococcal 23-valent vaccine(Pneumovax: 0.5 unknown unit (03/04/17) SARS-CoV-2 (COVID-19) mRNA-1273 vaccine: 0.25 unknown unit (07/31/21) SARS-CoV-2 (COVID-19) mRNA-1273 vaccine: 0.5 unknown unit (11/08/20) SARS-CoV-2 (COVID-19) mRNA-1273 vaccine: 0.5 unknown unit (10/11/20) tetanus/diphth/pertuss (Tdap) adult/adol: 0.5 mL (10/31/18) Digitally Signed by FAZAL RUIZ DO on 11/16/2023 11:59 AM [facility] [id number] History and physical note Date of Service 11/16/2023 Chief Complaint Chest pain History of Present Illness An 82-year-old male with PMH of CAD [s/p PCI to LCx; 2014], HFpEF, hyperlipidemia, ESRD on dialysis, GERD, baseline RBBB, was sent to [place] ED from dialysis center because of chest pain. On encounter, the patient was examined in room 317. He was alone. He stated that he has: --Chest pain since evening. He was doing some yard work and suddenly he noticed chest pain, substernal, sharp heaviness type, radiating to jaw, severity of 6/10, lasted for 10-15 minutes, relieved on its own Has baseline shortness of breath for a long time Denies palpitations, cough, PND, orthopnea Denies abdominal pain Denies bowel bladder disturbances [place] ED course: At [place] ED, the patient was vitally stable. His initial labs were suggestive of normal CBC, mild hypokalemia, baseline elevation in creatinine, proBNP of 11.4 K and troponin in 500s range. He wastransfer[facility] to [facility] for [facility] management. Review of Systems General: negative for weight change, fevers/night sweats/chills, fatigue/weakness Skin: negative for skin changes HEENT: negative for headache, visual changes, hearing loss, rhinorrhea/congestion/epistaxis, bleeding gums, hoarseness/sore throat Breasts: negative for skin changes, discharge Cardiac: Chest pain, shortness of breath negative for murmurs, palpitations, orthopnea, PND, edema Pulmonary: Shortness of breath negative for wheezing, cough, sputum/hemoptysis, PNA, asthma/bronchitis/COPD GI: negative for N/V, change in appetite, dysphagia, change in BM, stool color, hematemesis/melena/hematochezia, constipation/diarrhea : negative for polydipsia, polyuria, hematuria, dysuria, nocturia MSK: negative for muscle weakness, joint pain/stiffness, redness/swelling Heme: negative for anemia, easy bruising Neurologic: negative for loss of sensation/numbness/tingling, weakness/paralysis Physical Exam Vitals and Measurements T: 36.7 C (Oral) HR: 84(Apical) RR: 18 BP: 130/52 SpO2: 96% HT: 170.2 cm WT: 77.3 kg BMI: 26.68 Weight Dosing Weight: 77.3 kg (11/15/23) General: AAOX3, NAD HEENT: Anicteric sclera, MMM Neck: Trachea midline, JVP: Elevated CVS: RRR, normal S1/S2, no murmurs/rubs/gallops Lung: CTAB, no wheezes/rhonchi/rales Abd: Soft, NT/ND Extrem: WWP, no LE edema Skin: Warm, Intact Neuro: AAOX3, spontaneous movement of all extremities Psych: Appropriate mood & affect Lab Results No 36 Hour Lab Data Assessment/Plan 1. NSTEMI Patient had chest pain on evening after doing some yard work During dialysis yesterday afternoon his blood pressure went to 70s and he had some chest pain Troponins: In 500s range HEART score: 7 Plan START heparin drip CONTINUE aspirin 81 mg. CONTINUE atorvastatin 40 mg p.o. daily For cardiac cath om Saturday 2. CAD Cardiac cath [09/06/2014]: PCI to proximal LCx As per the notes the patient had a dobutamine stress echo on 11/22/2021 which was normal Plan CONTINUE aspirin 81 mg p.o. daily CONTINUE atorvastatin 40 mg p.o. daily 3. ESRD On dialysis -MWF Plan Will call in nephrology for maintenance HD 4. Acute on chronic HFpEF exacerbation Patient has been having shortness of breath for long time JVP: Elevated Open edema proBNP: 11 K Plan Will need dialysis for negative fluid balance Not on TALHA/ARB/ARNI because of ESRD status CONTINUE metoprolol succinate 25 mg p.o. daily HOLD p.o. furosemide Start furosemide 40 mg IVP every 12 hours 5. Hypertension Blood pressure in acceptable range Plan CONTINUE amlodipine 5 mg p.o. daily CONTINUE metoprolol titrate 25 mg p.o. daily 6. Hyperlipidemia Plan CONTINUE atorvastatin 40 mg p.o. day 7. GERD Denies current burning sensation in stomach Plan CONTINUE pantoprazole 40 mg p.o. daily 8. History of parathyroidectomy in 2012 Problem List/Past Medical History Ongoing Anemia CAD IN [place] ARTERY Chronic heart failure with preserved ejection fraction (HFpEF) CKD (chronic kidney disease) DYSLIPIDEMIA ESRD on dialysis GERD - Gastro-esophageal reflux disease H/O NON-ST ELEVATION MYOCARDIAL INFARCTION (NSTEMI) HYPERTENSION, BENIGN Mild aortic regurgitation Mild mitral regurgitation Moderate aortic stenosis OVERWEIGHT (BMI 25.0-29.9) Parathyroidectomy PREOPERATIVE CLEARANCE PVC (PREMATURE VENTRICULAR CONTRACTION) PVCs (premature ventricular contractions) Smoker Historical No qualifying data Procedure/Surgical History PCI - Percutaneous coronary intervention: 09/06/14 Cardiac catheterization, combined right and left heart: 09/06/14 Placement of stent in coronary artery: 09/04/14 Excision of parathyroid gland: 2012 Cystoscopic laser lithotripsy of ureteric calculus: 1959 Hand Blood transfusion Hernia repair Colonoscopy Endoscopy Medications Home Medications (6) Active amLODIPine 5 mg oral tablet 5 mg = 1 tab(s), Oral, qDay aspirin 81 mg oral delayed release tablet 81 mg = 1 tab(s), Oral, Daily atorvastatin 40 mg oral tablet 40 mg = 1 tab(s), Oral, qHS Lasix 40 mg oral tablet 40 mg = 1 tab(s), Oral, qDay metoprolol tartrate 50 mg oral tablet See Instructions pantoprazole 40 mg oral enteric coated tablet 1 tab(s), Oral, qDay Allergies lisinopril (Cough) Social History Smoking Status - 09/04/2014 Former smoker Alcohol Use: Current. Type: Liquor. Frequency: 1-2 times per week., 11/06/2018 Nutrition/Health Caffeine intake amount: 1-2 cups per day., 11/30/2021 Substance Abuse Use: Never., 11/06/2018 Tobacco Tobacco Use: Former smoker, quit more than 30 days ago. Type: Cigarettes. Tobacco use per day: 30. Number of years: 17., 11/06/2018 Family History Cancer: Mother and Father. Cancer: Brother. Heart disease: Father. Immunizations pneumococcal 13-valent conjugate vaccine: 0 unknown unit (12/24/14) pneumococcal 23-valent vaccine(Pneumovax: 0.5 unknown unit (03/04/17) SARS-CoV-2 (COVID-19) mRNA-1273 vaccine: 0.25 unknown unit (07/31/21) SARS-CoV-2 (COVID-19) mRNA-1273 vaccine: 0.5 unknown unit (11/08/20) SARS-CoV-2 (COVID-19) mRNA-1273 vaccine: 0.5 unknown unit (10/11/20) tetanus/diphth/pertuss (Tdap) adult/adol: 0.5 mL (10/31/18) Code Status No qualifying data available. Digitally Signed by CINDY BARDALES MD on 11/16/2023 08:38 AM [facility] [id number] NoteSINUS RHYTHM MULTIFORM VENTRICULAR PREMATURE COMPLEXES PROLONGED DC INTERVAL RIGHT BUNDLE BRANCH BLOCK Electronic Signature: BRANDY BLANDON MD 11/16/2023 16:39:52[facility] 04-05-2024 Note ORIGINAL EXAMINATION: ONE XRAY VIEW OF THE CHEST 11/15/2023 12:35 pm COMPARISON: 09/01/2021 HISTORY: ORDERING SYSTEM PROVIDED HISTORY: Reason for Exam: chest pain FINDINGS: Early airspace disease developing in the right lower lobe. Heart is top-normal in size. There is no pulmonary edema or pneumothorax. Postsurgical changes are noted in the region of the thyroid. Skeletal elements are intact. IMPRESSION: Developing right lower lobe pneumonia. Interpreted by: Alberto Bryson DO Preliminary Report By: Alberto Bryson DO Electronically signed By Alberto Bryson DO Dictated Date: 11/15/2023 1:04:08 PM Prelim Date: 11/15/2023 1:04:44 PM Sign Date: 11/15/2023 1:04:44 PM Ordering Provider: LOIDA [facility]04-05-2024 Note Sinus tachycardia Prolonged DC interval Consider right atrial enlargement Right bundle branch block Inferior infarct, age indeterminate Electronic Signature: LOIDA MANZO MD 11/15/2023 12:09:07[facility] 03-07-2024 Miscellaneous Notes* Telephone Encounter - Melida Gonzalez LPN - 10/17/2023 12:24 PM EST Patient has been identified by name and date of : Yes, Provider Dr Licea Date 10/17/23 Time 12:25 pm Patient phones for refill(s): Requested Prescriptions Pending Prescriptions Disp Refills atorvastatin (LIPITOR) 40 mg tablet 90 tablet 3 Sig: Take 1 tablet by mouth once daily. For cholesterol. Date of last office visit in primary care: 09/21/2023 Date of next office visit in primary care: 09/22/2024 Please advise. Thank you. Melida Gonzalez LPN. documented in this encounterAsht[facility]03-01-2024 Miscellaneous Notes* Telephone Encounter - Anali Orourke RN - 10/11/2023 11:00 AM EST Patient notified of results. Patient verbalizes understanding. Anali Orourke RN * Telephone Encounter - Dayanara Dickinson - 10/10/2023 4:00 PM EST Message left for return call. Dayanara Dickinson * Telephone Encounter - Julio Licea MD - 10/10/2023 3:28 PM EST Let patient know his bone scan did not show any concerning bone lesions or abnormalities. documented in this encounterAshtabula [facility] Center02-29-2024 History of Present illness Narrative* Sandy Alvarez, RT(R) - 10/10/2023 7:30 AM EST RADIOLOGY SERVICE PROGRESS NOTE SERVICE DATE: 10/10/2023 SERVICE TIME: 07:35 AM PATIENT IDENTITY VERIFICATION COMPLETED USING TWO (2) STANDARD IDENTIFIERS: Name and Date of confirmed by patient verbally FALL SCREENING: Has the patient had 2 falls in the last year or 1 fall with injury or currently using an Ambulatory Assistive Device (Walker, Cane, Wheelchair, Crutches, etc.)? Yes, Patient High Riskfor Falls What interventions were put in place to prevent falls during this visit? Instructed Patient to Callfor Help if Needed, Offered Assistance with Transfers/Clothing, Instructed Patient to Remain Seated(Not on Exam Table) Until Exam, Increased Observations by Caregivers, and Escorted to/from Restroom PATIENT GENDER DATA: .male ALLERGIES: Reviewed and unchanged MEDICATIONS REVIEWED: No PATIENT RELEVANT IMPLANT DATA REVIEWED: Not Applicable PATIENT PRESENTS WITH AN IMPLANTABLE OR ATTACHED SENIOR NETWORK SECURITY ARCHITECT: N/A CREATININE: Creatinine Date Value Ref Range Status 09/21/2023 5.72 (H) 0.73 - 1.22 mg/dL Final 07/12/2023 3.02 (H) 0.73 - 1.22 mg/dL Final 07/12/2023 7.43 (H) 0.73 - 1.22 mg/dL Final Estimated Glomerular Filtration Rate Date Value Ref Range Status 09/21/2023 9 (L) >=60 mL/min/1.73m Final Comment: Estimated Glomerular Filtration Rate (eGFR) is calculated using the 2020 CKD-EPI creatinine equation. This equation utilizes serum creatinine, sex, and age as parameters. The creatinine assay has traceable calibration to isotope dilution- mass spectrometry. Refer to KDIGO guidelines for clinical interpretation. In patients with unstable renal function, e.g. those with acute kidney injury, the eGFRmay not accurately reflect actual GFR. eGFR- Date Value Ref Range Status 07/24/2021 20 Final P.O.C.T. RESULTS: N/A October 10, [address] PERFORMED: No IV SITE: Ambulatory: A peripheral IV was started in the Left antecubital site with a Angio cath: 24gauge. POST EXAM PIV STATUS: Discontinued PROCEDURE TYPE: NM INJECT: Whole Body Bone Scan. 23.3 mCi Tc99m MDP. No other medications given.. ADMINISTRATION TIME: 07:45 PATIENT DISCHARGED TO: Ambulatory patient, left [place] department area. A Diagnostic radioactive procedure has taken place, with no further precautions necessary other than routine body substance precautions. More information regarding radiation safety can be found usingthis link: [email or web address] SIGNATURE: Sandy Alvarez RT(R) PATIENT NAME: Luis Manuel Duran JR DATE: October 10, 2023 TIME: 10:42 AM PAGER/CONTACT #: documented in this encounterAshtabula [facility] Center02-19-2024 Miscellaneous Notes* Telephone Encounter - Melida Gonzalez LPN - 09/30/2023 11:43 AM EST Pt notified of results and instructions. Pt verbalizes understanding. Pt was assisted in transfer to schedule nuclear bone test. Melida Gonzalez LPN * Telephone Encounter - Julio Licea MD - 09/27/2023 3:52 PM EST Let patient know his Alk Phos enzyme test shows it's his bone portion that is elevated. I want to get a nuclear bone test. Order placed. documented in this encounterAshtabula [facility] Center02-14-2024 Miscellaneous Notes* Telephone Encounter - Melida Gonzalez LPN - 09/25/2023 8:37 AM EST Reviewed results and instructions with pt's . She verbalizes understanding and will have pt come into do lab work. advises pt will also complete urine testing he was not able to do the otherday. Melida Gonzalez LPN * Telephone Encounter - Julio Licea MD - 09/24/2023 8:20 PM EST Let patient know his hemoglobin is better and rest of blood count is ok. Hi Alk phos is elevated and want to check this out further. Lab order placed. Rest of his labs were ok. documented in this encounterAshtabula [facility] Center12-11-2023 Miscellaneous Notes* Telephone Encounter - Dwayne Austin RN - 07/22/2023 1:01 PM EST Phoned and spoke with Mr. Duran. She was calling with concerns of Luis Manuel coming down with a bad cough and had some emesis of phleghm . They were concerned about the incision . Dr. Sun is aware and said that there is not danger at this point in the healing. I told them if they could they could support the incision with his hand. His said the doctor gave him Mucinex so hopefully the coughing will get better. I answered all of their questions. Dwayne Austin RN documented in this encounterAshtabula County Medical Center12-01-2023 NoteHNO ID: [id number] Author: Dwayne Nobles RN Service: ? Author Type: Registered Nurse Type: Nursing Progress Note Filed: 07/12/2023 3:52 PM Note Text: Josue Lozano paged again @ pager [phone]. [facility] 07-12-2023 NoteHNO ID: [id number] Author: Dwayne Nobles RN Service: ? Author Type: Registered Nurse Type: Nursing Progress Note Filed: 07/12/2023 3:17 PM Note Text: Josue Lozano paged per pager [phone]. [facility]wait[facility]12-01-2023 NoteHNO ID: [id number] Author: Chary Streeter CHT Service: Dialysis Author Type: Agriculture Mechanic Type: Progress Notes Filed: 07/12/2023 12:20 PM Note Text: 1158 pt dialysis treatment has ended. Blood returned. Hemostasis achieved. Bandages x 2. Pt removal today 1 liter. Pt weight after treatment is 77.7 kg. [facility] is in [facility]12-[facility]-2023 NoteHNO ID: [id number] Author: Dwayne Nobles, LIEN Service: ? Author Type: Registered Nurse Type: Nursing Progress Note Filed: 07/12/2023 11:48 AM Note Text: Other: Patient to dialysis per [facility]12-01-2023 NoteHNO ID: [id number] Author: Josue Lozano MD Service: General Surgery Author Type: Resident Type: Progress Notes Filed: 07/12/2023 7:12 AM Note Text: Service Pager: [phone] PROGRESS NOTE Patient Name: Luis Manuel Duran JR Date: July 12, 2023 ASSESSMENT AND PLAN: Luis Manuel Duran JR is a 82 year old who is now POD1 from parathyroidectomy Patient recovering well in the early post operative period, tolerating a diet, with pain well controlled. Will plan to follow up with nephrology on wether dialysis today prior to DC to continue normal schedule. Plan: - Follow up AM labs - follow up with nephrology regarding dialysis prior to dc and will plan for rechecking of labs. - continue monitor for neck hematoma. - calcium carbonate and calcium citrate going home. Plan of care to be discussed with staff. Josue Lozano MD General Surgery, PGY1 Service Pager: [phone] On nights (6 pm to 6 am) and on Weekends/Holidays, please page the on-call pager: [phone] 07/12/23 5:56 AM --- INTERVAL: No acute events overnight. Pain moderately well controlled. No nausea or vomiting. Voice slightly hoarse but improving. OBJECTIVE: Physical Exam BP 108/49 Pulse 65 Temp (Src) 97.2 (Oral) Resp 16 Ht 5' 7.5 (1.72m) Wt 190 lb 7.6 oz (86.4kg) SpO2 96% BMI 29.38 kg/(m2). O2 Therapy: Room Air, Liters: 2.00 General: comfortable, no acute distress HEENT: incision CDI and flat with no signs of hematoma Cardiac: extremities warm and well-perfused Pulm: normal respiratory effort on RA Neuro: alert, oriented, no gross motor/sensory deficit Intake/Output Intake/Output Summary (Last 24 hours) at 07/12/2023 0556 Last data filed at 07/11/2023 1136 Gross per 24 hour Intake 600 ml Output 5 ml Net 595 ml Labs Reviewed Recent Labs 07/12/23 0507 07/11/23 1950 07/11/23 0826 WBC 11.02* -- -- HB 9.2* -- -- HCT 29.2* -- -- PLT 159 -- -- NA -- 138 -- K -- 4.4 4.4 CHLOR -- 95* -- CO2 -- 26 -- CREAT -- 6.69* -- BUN -- 50* -- GLUC -- 178* -- P -- 4.6 -- ALB -- 3.7* -- MG -- 2.0 -- CA -- 9.4 -- Imaging Reviewed [facility]11-30-2023 NoteHNO ID: [id number] Author: Justin Lopez APRN.COUNTER STITCHER Service: ? Author Type: Nurse Pharmacy Operations Specialist Type: Anesthesia Procedure Notes Filed: 07/11/2023 9:59 AM Note Text: ANESTHESIOLOGY PROCEDURE NOTE Airway General Information Procedure Start Time/Medication Administration: 07/11/2023 9:47 AM Patient location during procedure: OR Staffing COUNTER STITCHER: Justin Lopez APRN.COUNTER STITCHER Performed by: CHERYL Indications and Patient Condition Indications for airway management: anesthesia Preoxygenated: yes anesthesia circuit Method: sleep Difficult Mask: No Final Airway Details Final airway type: endotracheal airway Final Endotracheal Airway: ETT Cuffed: yes Successful intubation technique: video laryngoscopy Devices used: gDine Endotracheal tube insertion site: oral Blade: Mira Blade size: #3 ETT size (mm): 7.5 Measured from: lips Measurement (cm): 21 Placement verified by: capnometry Cormack-Lehane Classification: grade IIa - partial view of glottis Number of attempts at approach: 1 Airway not difficult SIGNATURE: Justin Lopez APRN.COUNTER STITCHER PATIENT NAME: Luis Manuel Duran JR DATE: July 11, 2023 TIME: 9:55 AM CSN: [id number] History of Present illness Narrative* Fermin Chauhan MD - 07/09/2023 11:04 AM EST This consult is seen at the kind request of Dr. Yaya Sun of endocrine surgery, and my final recommendations will be communicated to the requesting health care provider by way of shared electronic medical record. This note is formatted with the impression and plan first and the history and physical to follow. IMPRESSION 82-year-old male with hyperparathyroidism requiring parathyroid gland exploration and resection. RECOMMENDATION/PLAN Patient had a technically difficult laryngoscopy exam due to difficult anatomy. He has significant redundant arytenoid tissue, retroflexed epiglottis and mild false vocal fold edema. However, I was able to visualize the vocal cords at the end and they do appears to be mobile bilaterally. Chief Complaint Preoperative evaluation History of Present Illness Luis Manuel Duran JR is a 82 year old male presents for preoperative evaluation. Patient had a history of right parathyroid excision for hyperparathyroidism. Since then, patient had disease recurrence requiring further exploration and parathyroidectomy. He is here today for preoperative evaluation to rule out vocal cord paralysis. Patient stated that since his initial surgery, he denies any significant changes in his voice. 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 deficiency (HCC) 10/15/2013 Living will on file 12/15/2021 DPA: Shea () Mild aortic stenosis 11/27/2021 Seeing Cardio Mixed hyperlipidemia 09/03/2013 Overweight (BMI 25.0-29.9) Parathyroid adenoma 05/27/2013 parathyroidectomy 05/27/13 Personal history of colonic polyps Colon polyps Primary hyperparathyroidism (HCC) 03/04/2017 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: 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 TIA (transient ischemic attack) 06/2010 Ulcer of esophagus without bleeding Unspecified transient cerebral ischemia WITH HEMIPHORESIS Vitamin D deficiency 10/15/2013 PAST SURGICAL HISTORY Procedure Laterality Date BX/EXC LYMPH NODE OPEN SUPERFICIAL COLONOSCOPY 12/22/2019 COLONOSCOPY FLX DX W/COLLJ SPEC WHEN PFRMD 08/2000 Colonoscopy COLONOSCOPY FLX DX W/COLLJ SPEC WHEN PFRMD 10/19/2008 EGD TRANSORAL BIOPSY SINGLE/MULTIPLE 10/19/2008 ESOPHAGOGASTRODUODENOSCOPY TRANSORAL DIAGNOSTIC ESOPHAGOGASTRODUODENOSCOPY TRANSORAL DIAGNOSTIC 12/22/[address] Marcial LAPAROSCOPIC HERNIA REPAIR Right 05/21/2018 recurrent incarcerated direct right inguinal hernia PARATHYROIDECTOMY/EXPLORATION PARATHYROIDS 05/27/2013 Parathyroid adenoma PAST SURGICAL HISTORY OF 01/20/2021 supraumbilical ventral hernia RPR 1ST INGUN HRNA AGE 5 YRS/> REDUCIBLE Hernia repair, inguinal BILATERAL FAMILY HISTORY Problem Relation Age of Onset Colon Cancer Mother Colon Cancer Father Arthritis Mother Heart Father SD * 2 Prostate Cancer Brother Hypertension Brother None Brother CURRENT OUTPATIENT MEDICATIONS Current Outpatient Medications on File Prior to Visit Medication Sig sevelamer carbonate (RENVELA) 800 mg tablet TAKE 1 TABLET BY MOUTH WITH EVERY MEAL THREE TIMES A DAY amLODIPine (NORVASC) 5 mg tablet Take 1 tablet by mouth once daily. atorvastatin (LIPITOR) 40 mg tablet Take 1 tablet by mouth once daily. For cholesterol. furosemide (LASIX) 80 mg tablet 1 tablet once daily. Per [facility] metoprolol tartrate, short acting, (LOPRESSOR) 50 mg tablet 0.5 tablets twice daily. pantoprazole [address] (PROTONIX) 40 mg tablet Take 40 mg by mouth once daily. Take one tablet daily nitroglycerin sublingual (NITROSTAT) 0.4 mg SL tablet Dissolve 1 tablet under the tongue every 5 minutes as needed. aspirin, enteric coated (ASPIRIN, ENTERIC COATED) 81 mg EC tablet Take 1 tablet by mouth once daily. cinacalcet (SENSIPAR) 30 mg tablet Take 1 tablet by mouth. (Patient not taking: Reported on 06/25/2023) ferric citrate (AURYXIA) 210 mg iron tab Take 1 tablet by mouth. (Patient not taking: Reported on 06/25/2023) methoxy peg-epoetin beta (MIRCERA INJECTION) 30 mcg. (Patient not taking: Reported on 06/25/2023) methoxy peg-epoetin beta (MIRCERA INJECTION) 60 mcg. (Patient not taking: Reported on 06/25/2023) No current facility-administered medications on file prior to visit. ALLERGIES ALLERGIES Allergen Reactions Axid [Nizatidine] Unknown Entex Pse [Pseudoep* Unknown Lisinopril Cough The remainder of the patient's history and review of systems is on the outpatient questionaire which was reviewed by me and placed in the outpatient chart. PHYSICAL EXAMINATION Appearance: General examination of the patient's external face, head and neck reveals no abnormalities. The patient is not retrognathic The patient's voice is slightly strained and they communicate easily. Ears: Exam of the ears revealed normal appearing external auditory canals, tympanic membranes, and middle ears. No signs of infection or fluid were seen. Nose: External nasal exam was normal. Throat: There were no lesions to visualization or palpation of the lips, cheeks, gums, floor of mouth, tongue, hard and soft palate, tonsillar pillars or posterior pharyngeal wall. Neck: Palpation of the neck revealed no adenopathy, salivary gland masses or asymmetry, or thyroid masses or enlargement. Procedure Flexible laryngoscopy was performed because of the following indication: hyperactive gag and to rule out vocal paralysis: After spraying the nose with 4% xylocaine and 0.5% oxymetazoline, the flexible scope was placed in a transnasal fashion. The nasopharynx, oropharynx, hypopharynx including the pyriform sinuses were normal. The base of tongue showed prominent lingual tonsils with retrolingual narrowing. The exam itself is technically difficult due to retroflexed epiglottis. Redundant arytenoid tissue holding the posterior half of the vocal fold. There is also mild false vocal edema. I was able to visualize the vocal cord in the end which did not show any lesion. Bilateral vocal fold motion does appear to be intact. There was significant pooling of secretions in the piriform sinus. Fermin Chauhan MD documented in this encounterAshtabula [facility] Center11-14-2023 Instructions* Patient Instructions* Nora San PA-C - 06/25/2023 11:42 AM EST PATIENT PREOPERATIVE INSTRUCTIONS Dr. Yaya Sun has scheduled you for your procedure at this surgery center: [facility]: [phone] -- [address] [place] [address]. Please read below carefully for your personalized instructions. Arrival Time for Surgery: - The Surgery Center or hospital where you are having surgery will call the afternoon before surgery (or Saturday for Saturday surgery) with a scheduled arrival time. - If you have not heard by 4 pm, please contact the surgery center above. Please be aware that emergency situations arise, which may delay or change your surgical time. If this happens, we will notify you as soon as possible and regret any inconvenience. Dietary Restrictions: - No solid food after midnight. - You may have 12 ounces of clear liquids (water, clear juices such as apple juice or gatorade, carbonated beverages, clear tea, black coffee, jello) until 2 hours before scheduled arrival at facility. - Do not drink any alcohol after midnight the night before your surgery. Medications: Unless instructed differently below, stay on all of your medications until your surgery. If you start any new medications after today's visit, please contact your surgeon. Pre-Surgery Med Instructions Medication Instructions sevelamer carbonate (RENVELA) 800 mg tablet Take the day of surgery with a small sip of water amLODIPine (NORVASC) 5 mg tablet Take the day of surgery with a small sip of water atorvastatin (LIPITOR) 40 mg tablet Take the day of surgery with a small sip of water furosemide (LASIX) 80 mg tablet Do not take the day of surgery metoprolol tartrate, short acting, (LOPRESSOR) 50 mg tablet Take the day of surgery with a small sip of water pantoprazole DR (PROTONIX) 40 mg tablet Take the day of surgery with a small sip of water nitroglycerin sublingual (NITROSTAT) 0.4 mg SL tablet OK to continue as you normally do if needed aspirin, enteric coated (ASPIRIN, ENTERIC COATED) 81 mg EC tablet Take the day of surgery with a small sip of water (do not stop, as you have a stent) If you take any medications for erectile dysfunction-Cialis (Tadalafil), Levitra, Staxyn (Vardenafil) Viagra (Sildenenafil please do not take these for 48 hours before surgery. If you start any new medications after today's visit, please contact the surgeon's office. Blood Thinning Medications: - Stop NSAIDS (Ibuprofen, Advil, Aleve, Motrin, Celebrex, Mobic, etc.) 7 days before surgery, as directed by your surgeon. - Do NOT stop aspirin or other anticoagulants without consulting with your post anesthesia nurse or prescribing physician. - Stop Vitamin E, ALL multi-vitamins, herbals and dietary supplements 14 days before surgery. - You may take Tylenol (Acetaminophen) or any of your pain medications that do not contain aspirin or NSAIDS as needed. Important Reminders: If you are on dialysis, please check with your dialysis center or disability counselor to see if any adjustments need to be made to your schedule for the week of your surgery - Candy, mints, and tobacco products are NOT permitted the morning of surgery. - Hearing aids, dentures and glasses may be worn the morning of surgery. - NO jewelry, body piercings, makeup, hairpins or contacts are to be worn the day of surgery. If you develop symptoms such as a fever, cold, or flu, or have other changes to your health within TWO DAYS of scheduled surgery or the morning of surgery, please contact the surgery center above. Personal Belongings: -Please have photo ID and insurance cards. -If you do not have a copy of advance directives on file with us, please bring a copy with you on the day of surgery. - Leave ALL valuables and money at home or with family members. For Outpatient Procedures: - YOU MUST HAVE A RESPONSIBLE WHIPPER BEATER TAKE YOU HOME. A FIBER OPTICS ENGINEER OR INSTITUTE DIRECTOR CANNOT BE MADE A RESPONSIBLE WHIPPER BEATER. - We recommend that a responsible person stays with you overnight to take care of you. - You cannot stay in a hotel alone after outpatient surgery. You will not be permitted to have yoursurgery, if you do not have someone to take care of you. If you already have an Advance Directive, please fax a copy to [phone] or email to for it to be added to your chart. If you do not have an Advance Directive, you can find the appropriate form and more information at [email or web address]. We recommend that youcomplete the Advance Directive form found on the website and bring it with you the day of your surgery. It can be witnessed and scanned into your chart that day. Nora San PA-C documented in this encounterAsht[facility]11-14-[facility]23 History and physical note * Nora San PA-C - 06/25/2023 11:20 AM EST HISTORY AND PHYSICAL EXAMINATION SERVICE DATE: 06/25/2023 SERVICE TIME: 12:21 PM PRIMARY CARE PHYSICIAN: Julio Licea MD REASON FOR VISIT: Luis Manuel Duran JR is a 82 year old male who is scheduled for Procedure(s): EXPLORATION PARATHYROID (N/A) at the request of @[email or web address]@ for consultation. My final recommendation will be communicated back to the requesting physician by way of shared medical record or letter. Subjective The patient has the following: ACTIVE PROBLEM LIST Essential Hypertension, Benign Personal History of Colonic Polyps Gerd Without Esophagitis Bph With Obstruction/Lower Urinary Tract Symptoms Benign Essential Tremor Mixed Hyperlipidemia Anemia of Chronic Disease Primary Hyperparathyroidism (Hcc) Ckd (Chronic Kidney Disease) Stage 4, Gfr 15-29 Ml/Min (Hcc) Coronary Artery Disease Involving [place] Coronary Artery of [place] Heart Without Angina Pectoris History of Non-St Elevation Myocardial Infarction (Nstemi) Elevated Psa Medicare Annual Wellness Visit, Subsequent Family History of Malignant Neoplasm of Gastrointestinal Tract Ex-Smoker History of Covid-19 Mild Aortic Stenosis Living Will On File Advance Directive Discussed With Patient Chronic Diastolic Congestive Heart Failure (Hcc) Medication Management COVID-19 Immunization Status Overdue - Covid-19 Vaccine ( season) Overdue since 04/12/2023 07/31/2021 Imm Admin: COVID-19 original vaccine, full dose, monovalent (MODERNA) 11/08/2020 Imm Admin: COVID-19 original vaccine, full dose, monovalent (MODERNA) 10/11/2020 Imm Admin: COVID-19 original vaccine, full dose, monovalent (MODERNA) CHIEF COMPLAINT: Pre-Op HPI: Luis Manuel Duran JR is a 82 year old male presenting for pre-anesthesia consultation. Pt has history of hyperparathyroidism. Feeling well today. Above procedure recommended to manage symptoms. Procedure scheduled on 07/11/2023 at [facility]. REVIEW OF SYSTEMS: General: No weight loss, malaise or fevers. Neurological: Negative for: headaches, multiple sclerosis, Parkinson's disease, seizures and strokes. Respiratory: + non-productive cough on and off. No sob. Negative for: asthma, COPD, current cough, dyspnea, tobacco use, URI < 2 weeks and obstructive sleep apnea. Cardiovascular: Positive for: CAD, CHF, hyperlipidemia, hypertension, murmur/valvular heart disease and PTCA Patient's last office visit with post anesthesia nurse, Dr. Horton ([place]), Negative for: AICD/PPM, anticoagulation therapy, arrhythmia, chest pain, DVT/PE, recent SD, open heart surgery and valve surgery. GI: Positive for: GERD Negative for: abdominal pain, dysphagia, liver disease, nausea and vomiting. : + CKD Positive for: BPH, hesitancy and nocturia >1 time per night. Negative for: on dialysis, dysuria, hematuria and renal failure. Endocrine: Negative for: diabetes mellitus, hyperthyroidism and hypothyroidism. Hematology: Positive for: anemia, anemia associated with chronic kidney disease and chronic anti-coagulation/platelet meds. Patient is on anti-coagulation/platelet medication(s): Aspirin. Negative for: bruises/bleeds easily, factor V Leiden, hemophilia, thrombocytopenia and von Willebrand disease. Oncology: No history of CA metastasis, chemo within 30 days, or radiotherapy within 90 days. No history of oncological symptoms or problems. Psych: Negative for: anxiety, bipolar disorder and depression. Musculoskeletal: + Sciatica on right side. Negative for joint pain or swelling, back pain or musclepain. Skin: Negative for lesions, rash and itching. PAST MEDICAL HISTORY Diagnosis Date Advance directive discussed with patient 12/15/2021 Discussed 12/2021 Anemia of chronic disease 10/15/2013 ASHD (arteriosclerotic heart disease) 03/06/2018 Benign essential tremor 07/03/2010 BPH with obstruction/lower urinary tract symptoms 08/01/2005 Chronic diastolic congestive heart failure (HCC) 12/15/2021 seeing cardio CKD (chronic kidney disease) stage 4, GFR 15-29 ml/min ([facility]) 03/04/2017 COVID-19 virus infection 05/29/2021 05/27/2021 Diaphragmatic hernia without mention of obstruction or gangrene Hiatal hernia Elevated PSA 03/11/2019 Esophagitis, unspecified Essential hypertension, benign Ex-smoker 12/26/2020 Started age 18 up to 1.5 PPD and quit at age 35. 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 deficiency ([facility]) 10/15/2013 Living will on file 12/15/2021 DPA: Shea () Mild aortic stenosis 11/27/2021 Seeing Cardio Mixed hyperlipidemia 09/03/2013 Overweight (BMI 25.0-29.9) Parathyroid adenoma 05/27/2013 parathyroidectomy 05/27/13 Personal history of colonic polyps Colon polyps Primary hyperparathyroidism ([facility]) 03/04/2017 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: 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 TIA (transient ischemic attack) 06/2010 Ulcer of esophagus without bleeding Unspecified transient cerebral ischemia WITH HEMIPHORESIS Vitamin D deficiency 10/15/2013 PAST SURGICAL HISTORY Procedure Laterality Date BX/EXC LYMPH NODE OPEN SUPERFICIAL COLONOSCOPY 12/22/2019 COLONOSCOPY FLX DX W/COLLJ SPEC WHEN PFRMD 08/2000 Colonoscopy COLONOSCOPY FLX DX W/COLLJ SPEC WHEN PFRMD 10/19/2008 EGD TRANSORAL BIOPSY SINGLE/MULTIPLE 10/19/2008 ESOPHAGOGASTRODUODENOSCOPY TRANSORAL DIAGNOSTIC ESOPHAGOGASTRODUODENOSCOPY TRANSORAL DIAGNOSTIC 12/22/[address] Marcial LAPAROSCOPIC HERNIA REPAIR Right 05/21/2018 recurrent incarcerated direct right inguinal hernia PARATHYROIDECTOMY/EXPLORATION PARATHYROIDS 05/27/2013 Parathyroid adenoma PAST SURGICAL HISTORY OF 01/20/2021 supraumbilical ventral hernia RPR 1ST INGUN HRNA AGE 5 YRS/> REDUCIBLE Hernia repair, inguinal BILATERAL FAMILY HISTORY Problem Relation Age of Onset Colon Cancer Mother Colon Cancer Father Arthritis Mother Heart Father SD * 2 Prostate Cancer Brother Hypertension Brother None Brother Social History Tobacco Use Smoking status: Former Types: Cigarettes Smokeless tobacco: Never Tobacco comments: quit 1975 Substance Use Topics Alcohol use: Yes Alcohol/week: 1.0 standard drink of alcohol Types: 1 Standard drinks or equivalent per week Drug use: No Prior to Admission medications as of 06/25/23 1221 Medication Sig Last Dose Taking sevelamer carbonate (RENVELA) 800 mg tablet TAKE 1 TABLET BY MOUTH WITH EVERY MEAL THREE TIMES A DAY Taking Yes amLODIPine (NORVASC) 5 mg tablet Take 1 tablet by mouth once daily. Taking Yes atorvastatin (LIPITOR) 40 mg tablet Take 1 tablet by mouth once daily. For cholesterol. Taking Yes furosemide (LASIX) 80 mg tablet 1 tablet once daily. Per Cardio, Marc Taking Yes metoprolol tartrate, short acting, (LOPRESSOR) 50 mg tablet 0.5 tablets twice daily. Taking Yes pantoprazole DR (PROTONIX) 40 mg tablet Take 40 mg by mouth once daily. Take one tablet daily Taking Yes nitroglycerin sublingual (NITROSTAT) 0.4 mg SL tablet Dissolve 1 tablet under the tongue every 5 minutes as needed. Taking Yes aspirin, enteric coated (ASPIRIN, ENTERIC COATED) 81 mg EC tablet Take 1 tablet by mouth once daily. Taking Yes cinacalcet (SENSIPAR) 30 mg tablet Take 1 tablet by mouth. Patient not taking: Reported on 06/25/2023 Not Taking ferric citrate (AURYXIA) 210 mg iron tab Take 1 tablet by mouth. Patient not taking: Reported on 06/25/2023 Not Taking methoxy peg-epoetin beta (MIRCERA INJECTION) 30 mcg. Patient not taking: Reported on 06/25/2023 Not Taking methoxy peg-epoetin beta (MIRCERA INJECTION) 60 mcg. Patient not taking: Reported on 06/25/2023 Not Taking No medication comments found. ALLERGIES Allergen Reactions Axid [Nizatidine] Unknown Entex Pse [Pseudoep* Unknown Lisinopril Cough Objective PHYSICAL EXAM: General: alert and oriented and healthy appearance. Pertinent negatives noted - not distressed. Skin: normal color, no rash or lesions. HEENT: EOM intact, pupils equal round and pupils reactive to light. Pertinent negatives noted - no carotid bruit. Cardiovascular: regular rate and rhythm, normal S1 and S2, no rub, murmurs, or gallop. Positive formurmur. No radial pulse abnormalities. Findings of a 3/6 grade systolic heart murmur with a blowingquality, and a location of: . Respiratory: normal breath sounds, no wheezes or crackles. No chest wall deformity or tenderness. Abdomen: soft. Pertinent negatives noted - not distended and not tender. Extremities: no deformity, no edema or tenderness, no joint swelling or clubbing. Neurological: normal cognition and motor skills. Gait normal. No weakness or sensory deficit. PAIN ASSESSMENT: VITALS: BP 141/56 Pulse 73 Temp 98.2 Resp 18 Ht 5' 7.5 (1.72m) Wt 174 lb (78.9kg) SpO2 97% BMI 26.83 kg/(m^2). Diagnostic tests reviewed for today's visit: Lab Value Units Date High Low HB No results within date range. HCT No results within date range. WBC No results within date range. PLT No results within date range. NA No results within date range. K No results within date range. GLUC No results within date range. BUN No results within date range. CREAT No results within date range. PTSEC No results within date range. INR No results within date range. APTT No results within date range. ALT No results within date range. AST No results within date range. TBILI No results within date range. TSH No results within date range. Lab Value Units Date High Low HCGQT No results within date range. UHCG No results within date range. HCG, BODY* No results within date range. Lab Value Units Date High Low ABORHD No results within date range. ABSCREEN No results within date range. No results found for: HBA1C No results found for this or any previous visit (from the past 8760 hour(s)). No results found for this or any previous visit (from the past 46605 hour(s)). Assessment Patient has the following medical conditions which may affect magdalena-operative course: Chronic diastolic congestive heart failure (HCC) Assessment: Follows cardiology Adherent to medications. Appears euvolemic, denies new or worsening cardiac symptoms. Ejection Fraction: (Dobutamine stress echo completed in 11/2021) - 57% Essential hypertension, benign Assessment: Follows with PCP and cardiology, adherent to RX. In office today BP: 141/56 Mixed hyperlipidemia Assessment: Follows with cardiology and PCP, adherent to RX. Coronary artery disease involving [place] coronary artery of [place] heart without angina pectoris Assessment: Follows with cardiology. S/P NSTEMI in 2015. CAD s/p PCI (85% stenosis in proximal LCx. Balloon angioplasty and stent placement. Ejection fraction was 35 to 40% with moderate hypokinesis of posterior basal and posterior lateral myocardium at the time). Adherent to ASA daily. Denies chest pain, dyspnea, palpitations. Mild aortic stenosis Assessment: Follows with cardiology. Murmur on exam. Mild AR noted on echo in 2021. Requested most recent echo to be faxed so that it can be uploaded to chart for review. GERD without esophagitis Assessment: Well controlled on current PPI. Denies reflux symptoms. BPH with obstruction/lower urinary tract symptoms Assessment: Follows with pcp, endorses hesitancy and nocturia. CKD (chronic kidney disease) stage 4, GFR 15-29 ml/min ([facility]) Assessment: Follows with nephrology. Dialysis [facility] at [facility] via fistula. Patient is going for updated labs today (send by surgeon) BUN Date Value Ref Range Status 09/06/2022 40 (H) 9 - 24 mg/dL Final 11/30/2021 60 (H) 9 - 24 mg/dL Final 11/02/2021 56 (H) 9 - 24 mg/dL Final Creatinine Date Value Ref Range Status 09/06/2022 6.57 (H) 0.73 - 1.22 mg/dL Final 11/30/2021 5.35 (H) 0.73 - 1.22 mg/dL Final 11/02/2021 4.87 (H) 0.73 - 1.22 mg/dL Final Anemia of chronic disease Assessment: Follows with nephrology. Updated labs today. Hemoglobin (g/dL) Date Value 09/06/2022 12.3 11/30/2021 8.7 12/26/2020 11.5 11/05/2019 11.4 09/24/2019 12.1 Hematocrit (%) Date Value 09/06/2022 40.1 11/30/2021 28.6 12/26/2020 36.6 11/05/2019 37.7 09/24/2019 37.9 [place] Activity Status Index: METS: Do yardwork, such as raking leaves, weeding, or pushing a power mower (4.50 METs) DASI Score: 4.5 Patient denies any chest pain or undue shortness of breath with the above physical activity. Clinical Frailty Scale: 3. Well, with treated comorbid disease STOP-Bang Score: Has or is being treated for high blood pressure Patient over 50 years old Male patient Denies snoring loudly Denies feeling tired, fatigued, or sleepy during the daytime Has not been observed to stop breathing or choking/gasping during sleep BMI less than or equal to 35 kg/m^2 Does not have a large neck STOP-Bang Score: 3 [id number] Score: Age: >=75 Sex: male CHF history: Yes Hypertension history: Yes Stroke/TIA/thromboembolism history: No Vascular disease history: Yes Diabetes history: No [id number] Score: 5 ANESTHESIA FINDINGS: Intubation History: No history of difficult intubation. No abnormal airway history Significant Anesthesia Considerations: none Airway History: No history of difficult airway No abnormal airway history I - PHYSICAL EVALUATION AIRWAY Patient intubated: No. Tracheostomy tube not present Mallampati: II. TM distance: >3 FB. Neck ROM: full ROM without neurological symptoms. Mouth opening: adequate. Short neck: no. Thick neck: no Moser present: yes Lip Bite Test: I Microretrognathia/Micronagthia/Recessed Chin: No DENTAL Additional comments: + cap/crowns. II - ANESTHESIA PLAN Anesthetic Plan: other Anesthetic plan additional comments: *PACC/TCI - anesthesia choice. Beta Ekaterina Monitoring Plan Post Procedure Analgesic Plan Prepared for Surgery: optimally prepared for surgery, pending [see comment]. Updated labs ordered by surgeon - pt getting these today ECG (ordered by surgeon) - awaiting final read CONSULTS: Patient does not require consults for optimization at this time Planned Anesthetic: other anesthesia choice The Following Tests/Procedures Have Been Initiated: No orders of the defined types were placed in this encounter. Instructions Given to Patient: Instructions located in the after visit summary. Patient given verbal and written preop instructions and voices comprehension and compliance. SIGNATURE: Nora San PA-C PATIENT NAME: Luis Manuel Duran JR DATE: 06/25/2023 TIME: 12:21 PM PAGER/CONTACT #: documented in this encounterAshtabula [facility] Center10-19-2023 Miscellaneous Notes* Telephone Encounter - Dwayne Austin RN - 05/30/2023 11:39 AM EDT Phoned to let Mr. Duran know that Dr. Sun reviewed his records and he does not need another Nuclear Medicine sesta mibi preop. He had one done 2019. Dr. Sun is satisfied with that test. Dwayne Austin RN documented in this encounterAshtabula [facility] Center10-10-2023 Miscellaneous Notes* Telephone Encounter - Dwayne Austin RN - 05/21/2023 2:10 PM EDT Phoned and spoke with Ila at the office of Dr. Zayas. I asked to speak with Janeen Crain CNP . She was not available but I left a message with Ila. My message was that Mr. Duran is having parathyroidectomy with Dr. Sun on 07/11/23. Pt will need dialysis the day before surgery. I left my name and phone number to call . Dwayne Austin RN documented in this encounterAshtabula [facility] Center10-10-2023 History of Present illness Narrative* Yaya Sun MD - 05/21/2023 10:52 AM EDT [facility] Endocrine [facility] Yaya Sun M.D. [address] [place] [address] Name: Luis Manuel Duran JR Clinic Number: [id number] Date of Service: May 21, 2023 Luis Manuel Duran JR has been referred by Dr. Licea for evaluation of renal hyperparathyroidism. My assessment and recommendation for this patient will be communicated via shared medical records. Thank you for referring this patient to me. As you know, he is a 82 year old man who has ESRD and has been receiving hemodialysis since last November. He dialyzes at [facility] (first shift) via a left arm AV fistula. He was treated with Sensipar for hyperparathyroidism but couldn't tolerate it due to severe GI side effect. He is not a transplant candidate. About 10 years ago, he underwent a focal parathyroid exploration and Dr. Avendaño removed an abnormal right lower parathyroid gland (1x1x3 cm) that was in the upper mediastinum. However, when reading Dr. Avendaño's operative note, the parathyroid adenoma was very posterior on the CT scan. In addition, the right recurrent laryngeal nerve was seen on top of the abnormal parathyroid gland. This makes me question whether it could have que descended right upper parathyroid gland that was removed. The PTH level dropped appropriately andtherefore no further exploration was performed. There is a entry of right vocal paralysis in his chart but Mr Duran said he's never had any vocal cord issue. Mr. Duran has multiple medical issues. His last surgical procedure was the AV fistula and he did well with anesthesia. His medication list is reviewed, he is not on any anticoagulant. He is currently taking 40 mg of Lasix daily. In terms of family history, there is no one with parathyroid issue. He has had no personal history of head and neck radiation. He is not a smoker. And he is and is retired. He continues to bevery active even with his dialysis schedule. In terms of symptoms related to hyperparathyroidism, he reports the following symptoms: musculoskeletal pain. Additional review of system showed the following pertinent findings: fatigue- yes, weight problems-no, skin rash-no, shortness of breath-no, chest pain-no, heartburn/reflux-sometimes, bleeding problems or easy bruising-no, headaches-no, anxiety-no and depression-no. - PARATHYROID DATA SHEET Latest Ref Rng & Units 07/24/2021 10/13/2021 10/19/2021 11/02/2021 11/30/2021 09/06/2022 CALCIUM 8.5 - 10.2 mg/dL 10.9 (H) CALCIUM 8.5 - 10.2 mg/dL 10.0 10.6 (H) 9.9 10.0 10.6 (H) PTH, INTACT 15 - 65 pg/mL 509 (H) 595 (H) PHOSPHORUS 2.7 - 4.8 mg/dL 3.2 PHOSPHORUS 2.7 - 4.8 mg/dL 4.7 5.3 (H) 5.2 (H) CREAT 0.73 - 1.22 mg/dL 3.64 (H) CREATININE 0.73 - 1.22 mg/dL 4.62 (H) 4.72 (H) 4.87 (H) 5.35 (H) 6.57 (H) VITAMIN D 25 HYDROXY 31.0 - 80.0 ng/mL VITAMIN D 25 HYDROXY 31.0 - 80.0 ng/mL 29.3 (L) CREATININE 24 HR UR 1.0 - 2.0 g/24 hr [facility] He has not had a MIBI nor DEXA. On physical exam, Mr. Duran is a well appearing, alert and oriented gentleman who looks euthyroid.He walks with a normal gait. He does have glasses. There is no obvious skin rash or lesions. On inspection the skin over the anterior neck is smooth, no mass is visualized. He has a well healed low cervical incision from his first parathyroidectomy. Palpation revealed neck to be supple, thyroid gland is palpable and overall normal in size. No lymphadenopathy was palpated on either side of the neck. The heart is regular rate and rhythm and she breathes with ease at rest. There is no obvious extremity deformity. A neck US was performed in the procedure room today. This revealed the thyroid gland to be overall normal in size, with fine echogenicity. There are no thyroid nodule(s) seen. There was no area seen on ultrasound to suggest an abnormal parathyroid gland. There are benign appearing lymph nodes seen in the lateral neck compartments bilaterally. Assessment/Plan: This is a 82 year old patient with biochemical studies that shows secondary hyperparathyroidism. Given his clinical findings, he would be best served by undergoing a parathyroid exploration. The surgical procedure, including the risks and benefits were discussed with the patient. In addition, he will need to undergo pre-operative testing to clear him for surgery. His reoperation would be more complicated due to his prior procedure. Hopefully the parathyroid scan may offer some clue about the remaining right sided parathyroid adenoma. All his questions have been answered today. And he will contact my office if there is any additional questions. I appreciate being involved in the care of your patient and please feel free to contact me should you have any questions or concerns. Yaya Sun MD documented in this encounterAshtabula [facility] Center10-10-2023 Instructions* Patient Instructions* Criselda Kearney Ma - 05/21/2023 10:44 AM EDT Thank you for choosing [facility] Department of Endocrinology, Diabetes and Metabolism. Did you know that you need to call 48 hours in advance of your scheduled visit, if you are unable to make your appointment? [facility] thanks you for your commitment, because patients not showing to their appointment results in a lost opportunity for patients to receive [facility] care at the [facility]. To Cancel an appointment, please choose one of the following: - Call the Appointment Call Center at [phone] - From [employer], Go to Appointments - Cancel Appts If cancelling, consider your need to reschedule to prevent further delays in your care. To Schedule an appointment, please choose one of the following: - Call the Appointment Call Center at [phone] - From [employer], Go to Appointments - Request an Appt documented in this encounterAshtabula [facility] Medical Center10-09-2023 Miscellaneous Notes* Telephone Encounter - Aydee Wilks MA - 05/20/2023 11:46 AM EDT Patient notified. Aydee Wilks MA * Telephone Encounter - Jana Cintron MD - 05/20/2023 10:45 AM EDT Rx sent. * Telephone Encounter - Maeve Rosas LPN - 05/20/2023 10:39 AM EDT Patient calling express care provider sent antibiotic rx to mail away pharmacy instead of to local pharmacy on Saturday . Reset rx to send to [facility] pharmacy. Please call when rx is sent. Please advise documented in this encounterAshtabula County Medical Center10-07-2023 Miscellaneous Notes* Telephone Encounter - Jana Cintron MD - 05/18/2023 4:05 PM EDT Urine culture had minimal bacterial growth. He is continuing to have symptoms of dysuria, frequency, and back/aches. Bactrim prescription sent to pharmacy. He has dialysis Saturday and Saturday. Follow-up with primary care or urology recommended. documented in this encounterAshtabula County [facility] Center10-06-2023 History of Present illness Narrative* Sarah Corrigan PA-C - 05/17/2023 3:10 PM EDT Subjective HPI HPI Luis Manuel Duran JR is a 82 year old male who presents today for CC of possible that UTI started 5days ago. C/o dysuria. Also notes associated nausea, chills, and bilateral flank pain. The patient denies fever and vomiting.Has had two in the past 4 years. Pt has tried nothing OTC. PMH ESRD for which he's on hemodialysis . He will be going up to [facility] next week to see a surgeon about his hypeparathyroidism. BP 144/71 Pulse 85 Temp 36.4 C (97.6 F) Resp 18 Wt 78.7 kg (173 lb 9.6 oz) SpO2 94% BMI27.19 kg/m ALLERGIES Allergen Reactions Axid [Nizatidine] Unknown Entex Pse [Pseudoep* Unknown Lisinopril Cough ACTIVE PROBLEM LIST Essential Hypertension, Benign Personal History of Colonic Polyps Gerd Without Esophagitis Bph With Obstruction/Lower Urinary Tract Symptoms Benign Essential Tremor Mixed Hyperlipidemia Anemia of Chronic Disease Primary Hyperparathyroidism (Hcc) Ckd (Chronic Kidney Disease) Stage 4, Gfr 15-29 Ml/Min (Hcc) Ashd (Arteriosclerotic Heart Disease) History of Non-St Elevation Myocardial Infarction (Nstemi) Elevated Psa Medicare Annual Wellness Visit, Subsequent Family History of Malignant Neoplasm of Gastrointestinal Tract Ex-Smoker History of Covid-19 Mild Aortic Stenosis Living Will On File Advance Directive Discussed With Patient Chronic Diastolic Congestive Heart Failure (Hcc) Medication Management Family History Problem Relation Age of Onset Colon Cancer Mother Colon Cancer Father Arthritis Mother Heart Father SD * 2 Prostate Cancer Brother Hypertension Brother None Brother Social History Tobacco Use Smoking status: Former Smokeless tobacco: Never Tobacco comments: quit 1975 Substance Use Topics Alcohol use: Yes Comment: socially Drug use: No Review of Systems Constitutional: Positive for chills. Negative for fever. Gastrointestinal: Positive for nausea (Like a sour stomach). Negative for abdominal pain, constipation, diarrhea and vomiting. Genitourinary: Positive for dysuria. Negative for flank pain, frequency, hematuria and urgency. Objective BP 144/71 Pulse 85 Temp 36.4 C (97.6 F) Resp 18 Wt 78.7 kg (173 lb 9.6 oz) SpO2 94% BMI27.19 kg/m Physical Exam Constitutional: Appearance: Normal appearance. He is not toxic-appearing. Cardiovascular: Rate and Rhythm: Normal rate and regular rhythm. Heart sounds: S1 normal and S2 normal. No murmur heard. Pulmonary: Effort: Pulmonary effort is normal. Breath sounds: Normal breath sounds. No wheezing, rhonchi or rales. Abdominal: General: Bowel sounds are normal. Palpations: Abdomen is soft. Abdomen is not rigid. Tenderness: There is no abdominal tenderness. There is no guarding. Skin: General: Skin is warm and dry. ASSESSMENT/PLAN: 1. Burning with urination - ICD9: 788.1, ICD10: R30.0 acute - UA positive for hematuria (but trace), proteinuria, and glucosuria -- not super compelling for UTI so will refrain from abx at this time. Recommend plenty of fluids and rest. Will send out for culture and adjust treatment if necessary pending results - Patient education for prevention given - UA DIP, URINE (POC) - URINE CULTURE Pt advised to see PCP if symptoms persist or progress. Reviewed red flags with patient and when to seek care sooner. The patient indicates understanding of these issues and agrees with the plan. Saarh Corrigan PA-C documented in this encounterAshtabula County Medical Center09-19-2023 Miscellaneous Notes* Telephone Encounter - Odell Muñiz LPN - 04/30/2023 9:02 AM EDT Patient phones requesting refills as follows: Requested Prescriptions Pending Prescriptions Disp Refills amLODIPine (NORVASC) 5 mg tablet 90 tablet 1 Sig: Take 1 tablet by mouth once daily. JONY 09/06/22 STEPHEN NOV no upcoming appt Please review and advise. Odell Muñiz LPN documented in this encounterAshtabula County Medical Center05-12-2023 Miscellaneous Notes* Telephone Encounter - Jaylene Cardoso APRN.WILFREDO OAKES - 12/21/2022 9:51 AM EDT Patient requesting medication refill. Patient of Urology provider: Dr. Licea Patient: Luis Manuel Duran Pended refill for provider review and approval Requested Prescriptions Pending Prescriptions Disp Refills atorvastatin (LIPITOR) 40 mg tablet 90 tablet 3 Sig: Take 1 tablet by mouth once daily. For cholesterol. * Telephone Encounter - José Antonio Anna Ma - 12/19/2022 2:26 PM EDT Patient phones requesting refills as follows: Last office visit 09/06/22 Requested Prescriptions Pending Prescriptions Disp Refills atorvastatin (LIPITOR) 40 mg tablet 90 tablet 3 Sig: Take 1 tablet by mouth once daily. For cholesterol. Please review and advise. José Antonio Anna Ma documented in this encounterAshtabula County Medical Center05-10-2023 Miscellaneous Notes* Telephone Encounter - Haley Santana LPN - 12/19/2022 1:06 PM EDT Patient phones requesting refills as follows: Requested Prescriptions Pending Prescriptions Disp Refills amLODIPine (NORVASC) 5 mg tablet 90 tablet 1 Sig: Take 1 tablet by mouth once daily. JONY 09/06/2022 No scheduled upcoming visit Please review and advise. Haley Santana LPN documented in this encounterAshtabula County Medical Center01-27-2023 Miscellaneous Notes* Telephone Encounter - Francis Irizarry MA - 09/07/2022 5:14 PM EST Patient notified and voiced understanding. Francis Irizarry MA * Telephone Encounter - Julio Licea MD - 09/07/2022 5:12 PM EST Patient know script sent in. The following approved medication requests have been transmitted electronically. Requested Prescriptions Signed Prescriptions Disp Refills sulfamethoxazole-trimethoprim (BACTRIM DS) 800-160 mg per tablet 14 tablet 0 Sig: Take 1 tablet by mouth twice daily for 7 days. Authorizing Provider: JULIO LICEA MD * Telephone Encounter - Anahi Galindo RN - 09/07/2022 1:23 PM EST Pt called and is notified of providers results and instructions. Pt voices understanding. Pt stateshe has some burning with urination and flank pain. Pt would like antibiotic to go to [facility] in [place]. Please let Pt know once medication is sent. Anahi Galindo RN * Telephone Encounter - Julio Licea MD - 09/07/2022 12:56 PM EST Let patient know his urine shows sign of infection. See if any symptoms. If so will need treated. His blood count shows improvement in his hemoglobin to 12.3 from 8.7 previously. His magnesium, lipids, B12, sodium, potassium and liver functions were all normal. documented in this encounterAshtabula County Medical Center01-26-2023 History of Present illness Narrative* Julio Licea MD - 09/06/2022 11:00 AM EST Medicare Yearly Visit Medical B eligibilty date 11/10/2006 Date of last exam 12/26/2020 PAST MEDICAL HISTORY PAST MEDICAL HISTORY Diagnosis Date Anemia 10/15/2013 ASHD (arteriosclerotic heart disease) 03/06/2018 Benign essential tremor 07/03/2010 BPH with obstruction/lower urinary tract symptoms 08/01/2005 CAD in [place] artery CKD (chronic kidney disease) stage 3, GFR 30-59 ml/min ([facility]) 03/04/2017 Diaphragmatic hernia without mention of obstruction or gangrene Hiatal hernia Dyslipidemia Elevated PSA 03/11/2019 Esophageal reflux Gastroesophageal reflux Esophagitis, unspecified Essential hypertension, benign Family history of malignant neoplasm of gastrointestinal tract GERD without esophagitis Gastroesophageal reflux History of non-ST elevation myocardial infarction (NSTEMI) 03/06/2018 09/06/14-- stent Hyperlipidemia LDL goal < 100 09/03/2013 Hyperparathyroidism ([facility]) 03/04/2017 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: 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 deficiency ([facility]) 10/15/2013 Hyperparathyroidism, primary ([facility]) 05/27/13 Mild renal insufficiency 10/15/2013 Mixed hyperlipidemia 09/03/2013 NSTEMI (non-ST elevated myocardial infarction) ([facility]) 03/06/2018 09/06/14-- stent Overweight (BMI 25.0-29.9) Parathyroid adenoma 05/27/13 Parathyroid adenoma 03/04/2017 parathyroidectomy 05/27/13 Personal history of colonic polyps Colon polyps Primary hyperparathyroidism ([facility]) 03/04/2017 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: 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 TIA (transient ischemic attack) 06/2010 Ulcer of esophagus without bleeding Unspecified transient cerebral ischemia WITH HEMIPHORESIS Vitamin D deficiency 10/15/2013 PAST SURGICAL HISTORY PAST SURGICAL HISTORY Procedure Laterality Date BIOPSY/REMOVAL, LYMPH NODE(S) COLONOSCOP W/ OR W/O BRSH SPEC 08/2000 Colonoscopy COLONOSCOP W/ OR W/O BRSH SPEC 10/19/08 EGD W/O BRSH SPECIMEN W/BX 10/19/08 EGD W/O OR W/BRUSH/WASH EGD W/O OR W/BRUSH/WASH 12/22/[address] Marcial EXPLORE PARATHYROID GLANDS 05/27/13 Parathyroid adenoma LAPAROSCOPIC HERNIA REPAIR Right 05/21/2018 recurrent incarcerated direct right inguinal hernia REPAIR ING HERNIA,5+Y/O,REDUCIBL Hernia repair, inguinal BILATERAL ALLERGIES: Accupril [Quinapril Hcl], Axid [Nizatidine], Entex Pse [Pseudoephedrine- Guaifenesin], and Lisinopril Medications reviewed: Yes FAMILY HISTORY FAMILY HISTORY Problem Relation Age of Onset Colon Cancer Mother Colon Cancer Father Arthritis Mother Heart Father SD * 2 Prostate Cancer Brother Hypertension Brother None Brother SOCIAL HISTORY: SOCIAL HISTORY Social History Tobacco Use Smoking status: Former Smoker Smokeless tobacco: Never Used Tobacco comment: quit 1976 Substance Use Topics Alcohol use: Yes Comment: socially Drug use: No Luis Manuel denies regular aerobic exercise. He watches his diet for sodium, low fat and low cholesterol most of the time. List of current specialists seen: Melina (Urology) Dr. Horton (Cardio Marc) Dr. Zayas (renal) optho End of Live Planning discussed including patients advanced directive wishes: Yes I am willing to follow Luis Manuel's advanced directives. PHQ-2 / Depression screen Depression Screening 03/06/2018 03/09/2019 02/22/2022 09/06/2022 PHQ-2 Score 0 0 0 0 Depression screening tool completed and reviewed. Based on score and interview, patient is not at risk for depression. Screening tool discussed with patient, and I recommended no further interventionat this time. Functional Ability/Safety Screen 1. Was the patient's timed Up and Go test unsteady or longer than 30 seconds? No 2. Does the patient need help with the phone, transportation, shopping,preparing meals, housework, laundry, medications or managing money? No 3. Does your home have rugs in the hallway(Y), lack of grab bars in the bathroom(Y), lack of handrails on the stairs or have poor lighting? No Hearing Evaluation: normal PHYSICAL EXAM BP 152/84 (BP Site: Right Arm, BP Position: Sitting, BP Cuff Size: Regular Adult) Pulse 60 Resp16 Ht 170.2 cm (5' 7) Wt 78 kg (172 lb) BMI 26.94 kg/m Alert and oriented X 3: YES Body mass index is 26.94 kg/m . Visual acuity: seeing Optho See below ASSESSMENT/PLAN: 81 year old male The following prevention plan was discussed during the office visit and provided to the patient: See below Julio Licea MD Chief Complaint Patient presents with: Medicare Wellness Exam HPI Luis Manuel Duran JR is a 81 year old male who presents here today for extensive Visit. Patient with Hx of HTN, lipidemia, CAD, GERD, CKD. Hyperparathyroidism seeing Endo, essential tremor, BPH as well as those reviewed and addressed below and in ROS. Patient has been doing ok. He did have a fistula placed this year in the right forearm. Started dialysis this past November. Past medical history, appointments, medications, allergies reviewed. Previous Medical History PAST MEDICAL HISTORY Diagnosis Date Advance directive discussed with patient 12/15/2021 Discussed 12/2021 Anemia 10/15/2013 Anemia of chronic disease 10/15/2013 ASHD (arteriosclerotic heart disease) 03/06/2018 Benign essential tremor 07/03/2010 BPH with obstruction/lower urinary tract symptoms 08/01/2005 Chronic diastolic congestive heart failure (HCC) 12/15/2021 seeing cardio CKD (chronic kidney disease) stage 4, GFR 15-29 ml/min (HCC) 03/04/2017 COVID-19 virus infection 05/29/2021 05/27/2021 Diaphragmatic hernia without mention of obstruction or gangrene Hiatal hernia Elevated PSA 03/11/2019 Esophagitis, unspecified Essential hypertension, benign Ex-smoker 12/26/2020 Started age 18 up to 1.5 PPD and quit at age 35. 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 deficiency (HCC) 10/15/2013 Living will on file 12/15/2021 DPA: Shea () Mild aortic stenosis 11/27/2021 Seeing Cardio Mild renal insufficiency 10/15/2013 Mixed hyperlipidemia 09/03/2013 Overweight (BMI 25.0-29.9) Parathyroid adenoma 05/27/2013 parathyroidectomy 05/27/13 Personal history of colonic polyps Colon polyps Primary hyperparathyroidism (HCC) 03/04/2017 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: 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 TIA (transient ischemic attack) 06/2010 Ulcer of esophagus without bleeding Unspecified transient cerebral ischemia WITH HEMIPHORESIS Vitamin D deficiency 10/15/2013 Previous Surgical History PAST SURGICAL HISTORY Procedure Laterality Date BX/EXC LYMPH NODE OPEN SUPERFICIAL COLONOSCOPY 12/22/2019 COLONOSCOPY FLX DX W/COLLJ SPEC WHEN PFRMD 08/2000 Colonoscopy COLONOSCOPY FLX DX W/COLLJ SPEC WHEN PFRMD 10/19/2008 EGD TRANSORAL BIOPSY SINGLE/MULTIPLE 10/19/2008 ESOPHAGOGASTRODUODENOSCOPY TRANSORAL DIAGNOSTIC ESOPHAGOGASTRODUODENOSCOPY TRANSORAL DIAGNOSTIC 12/22/[address] Marcial LAPAROSCOPIC HERNIA REPAIR Right 05/21/2018 recurrent incarcerated direct right inguinal hernia PARATHYROIDECTOMY/EXPLORATION PARATHYROIDS 05/27/2013 Parathyroid adenoma PAST SURGICAL HISTORY OF 01/20/2021 supraumbilical ventral hernia RPR 1ST INGUN HRNA AGE 5 YRS/> REDUCIBLE Hernia repair, inguinal BILATERAL Family History FAMILY HISTORY Problem Relation Age of Onset Colon Cancer Mother Colon Cancer Father Arthritis Mother Heart Father SD * 2 Prostate Cancer Brother Hypertension Brother None Brother Patient Allergies ALLERGIES Allergen Reactions Axid [Nizatidine] Unknown Entex Pse [Pseudoep* Unknown Lisinopril Cough Current Medications Current Outpatient Medications on File Prior to Visit Medication Sig amLODIPine (NORVASC) 5 mg tablet Take 1 tablet by mouth once daily. metoprolol tartrate, short acting, (LOPRESSOR) 50 mg tablet Take 0.5 tablet in the AM and 1 tablet in the pm metoprolol tartrate, short acting, (LOPRESSOR) 50 mg tablet Taken 1/2 tablet am and 1 tablet in pm. sucroferric oxyhydroxide (VELPHORO) 500 mg chew Take 500 mg by mouth three times daily with meals. Pt called in and report dialysis had started him on this. pantoprazole DR (PROTONIX) 40 mg tablet Take 40 mg by mouth once daily. Take one tablet daily furosemide (LASIX) 80 mg tablet 1 tablet twice daily. Per [facility] atorvastatin (LIPITOR) 40 mg tablet TAKE 1 TABLET BY MOUTH ONCE DAILY FOR CHOLESTEROL nitroglycerin sublingual (NITROSTAT) 0.4 mg SL tablet Dissolve 1 tablet under the tongue every 5 minutes as needed. aspirin, enteric coated (ADULT LOW DOSE ASPIRIN) 81 mg EC tablet Take 1 tablet by mouth once daily. Current Facility-Administered Medications on File Prior to Visit Medication perflutren lipid microspheres 1.3 mL in NaCl (PF) 0.9% 10 mL injection (DEFINITY) sodium chloride 0.9 % (flush) 10 mL (BD POSIFLUSH) Social History Social History Tobacco Use Smoking status: Former Smokeless tobacco: Never Tobacco comments: quit 1975 Substance Use Topics Alcohol use: Yes Comment: socially Drug use: No Review of Symptoms REVIEW OF SYSTEMS GENERAL: No weight loss, malaise or fevers HEENT: Negative for frequent or significant headaches, No changes in hearing or vision, no nose bleeds or other nasal problems NECK: Negative for lumps, goiter, pain and significant neck swelling RESPIRATORY: Negative for cough, hemoptysis, wheezing, COPD, dyspnea or shortness of breath CARDIOVASCULAR: Negative for chest pain, leg swelling, hypertension, CHF or palpitations GI: No nausea, vomiting, or diarrhea, No heartburn or reflux symptoms, and no blood. : No history of dysuria, blood MUSCULOSKELETAL: Negative for joint pain or swelling, back pain or muscle pain SKIN: Negative for lesions, rash, and itching PSYCH: Negative for sleep disturbance, mood disorder and recent psychosocial stressors HEMATOLOGY/LYMPHOLOGY: Negative for prolonged bleeding, bruising easily or swollen nodes ENDOCRINE: Negative for cold or heat intolerance, polyuria, polydipsia and goiter NEURO: No history of headaches, syncope, paralysis, seizures or tremors EXAM: BP 152/84 (BP Site: Right Arm, BP Position: Sitting, BP Cuff Size: Regular Adult) Pulse 60 Resp16 Ht 170.2 cm (5' 7) Wt 78 kg (172 lb) BMI 26.94 kg/m BP 142/68 Pulse 60 Resp 16 Ht 170.2 cm (5' 7) Wt 78 kg (172 lb) BMI 26.94 kg/m After dialysis he will run 115-120's/60-70's. Sometimes lower. Last 4 Encounter Wt Readings: Date: Wt: 09/06/2022 78 kg (172 lb) 02/22/2022 75.8 kg (167 lb) 02/11/2022 77.1 kg (170 lb) 12/15/2021 78 kg (172 lb) General Appearance: Well appearing, alert, in no acute distress, well-hydrated, well nourished.. Skin: Skin color, texture, turgor normal, no suspicious rashes or lesions. Head: Normocephalic, no masses, lesions, tenderness or abnormalities. Eyes: Anicteric sclera. Pupils are equally round and reactive to light. Extraocular movements are intact. . Ears: External ears normal, canals with wax.. Neck: Supple, no adenopathy; thyroid symmetric, normal size, no bruits. Lungs: Lungs clear to auscultation. No wheezing, rhonchi, rales.. Heart: RRR without gallop, or rubs. No ectopy. 2/6 ANGIE Abdomen: Normal abdominal exam, Abdomen soft, non-tender. Bowel sounds normal. No masses, organomegaly. Extremities: No deformities, edema, skin discoloration, Good capillary refill. . Musculoskeletal: Muscular strength intact, No joint swelling, deformity, or tenderness. Peripheral Pulses: Normal. Neurologic: Gait normal. Reflexes normal and symmetric. Sensation to light touch and crainal nerves2-12 intact.. Genitalia: Normal, Penis normal. No urethral discharge. Scrotum normal to palpation. No hernia.. Health Maintenance List COVID-19 VACCINE(4 - Booster for Moderna series) due on 09/25/2021 INFLUENZA(1) due on 04/12/2022 ADVANCE DIRECTIVE DISCUSSION due on 08/12/2022 DEPRESSION ASSESSMENT Never done SHINGRIX VACCINE(1 of 2) due on 02/22/2023 SERUM CREATININE due on 11/30/2022 HEMOGLOBIN/HEMATOCRIT due on 11/30/2022 LDL CHOLESTEROL due on 02/22/2023 ANNUAL PCP TEAM CHRONIC DISEASE VISIT due on 02/22/2023 BP CONTROLLED (<130/80) due on 02/22/2023 DIABETES SCREEN due on 10/13/2024 DTAP,TDAP,TD(4 - Td or Tdap) due on 11/01/2028 PNEUMOCOCCAL: 65+ Completed Data reviewed Component Latest Ref Rng & Units 02/22/2022 Total Cholesterol, Nonfasting <200 mg/dL 171 Triglycerides, Nonfasting <150 mg/dL 70 HDL Cholesterol, Nonfasting >39 mg/dL 58 LDL Cholesterol, Nonfasting <100 mg/dL 99 Non HDL Cholesterol, Nonfasting <130 mg/dL 113 VLDL Cholesterol, Nonfasting <30 mg/dL 14 Total Chol/HDL Ratio, Nonfasting <5.10 mg/dL 2.95 LDL/HDL Ratio, Nonfasting <2.54 mg/dL 1.71 Albumin 3.9 - 4.9 g/dL 3.9 Bilirubin, Total 0.2 - 1.3 mg/dL 0.4 Bilirubin, Conjug <0.2 mg/dL <0.2 Alkaline Phosphatase 38 - 113 U/L 110 AST 14 - 40 U/L 19 ALT 10 - 54 U/L 12 Protein, Total 6.3 - 8.0 g/dL 6.7 Vitamin B12 232-1,245 pg/mL 1,056 Magnesium 1.7 - 2.3 mg/dL 2.1 A/P ASSESSMENT/PLAN: 1. Medicare annual wellness visit, subsequent - ICD9: V70.0, ICD10: Z00.00 (primary diagnosis) - Counseled on healthy diet and regular exercise - Follow up for annual exam in one year 2. Essential hypertension, benign - ICD9: 401.1, ICD10: I10 - good control - Continue current medication(s) - Recommended regular aerobic exercise. - Recommend home blood pressure monitoring, to bring results in on next visit - with BP's going below 120/70 after dialysis often would not make any medication adjustments at this time to bring it down lower. - Goal of BP <130/80 Check - COMP METABOLIC PANEL - URINALYSIS, WITH MICROSCOPIC - LIPID PANEL, NONFASTING 3. Mixed hyperlipidemia - ICD9: 272.2, ICD10: E78.2 - to be determined upon return of lab results - Encouraged following a low fat, low cholesterol diet. - Discussed the benefits of regular aerobic exercise and weight loss. - Encouraged following a low carbohydrate, healthy oil intake diet. - Continue current therapy. check - COMP METABOLIC PANEL - URINALYSIS, WITH MICROSCOPIC - LIPID PANEL, NONFASTING 4. GERD without esophagitis - ICD9: 530.81, ICD10: K21.9 - Continue treatment with Protonix 40 mg every day Check - VITAMIN B12 BLOOD - MAGNESIUM BLD 5. Anemia of chronic disease - ICD9: 285.29, ICD10: D63.8 Check - CBC + DIFF 6. ASHD (arteriosclerotic heart disease) - ICD9: 414.00, ICD10: I25.10 - clinically stable no changes and seeing cardio Check - LIPID PANEL, NONFASTING 7. Chronic diastolic congestive heart failure (HCC) - ICD9: 428.32, 428.0, ICD10: I50.32 - as per #6 8. Mild aortic stenosis - ICD9: 424.1, ICD10: I35.0 - as per #6 9. Primary hyperparathyroidism (HCC) - ICD9: 252.01, ICD10: E21.0 - per renal management 10. CKD (chronic kidney disease) stage 4, GFR 15-29 ml/min (HCC) - ICD9: 585.4, ICD10: N18.4 Management per renal Check - COMP METABOLIC PANEL - URINALYSIS, WITH MICROSCOPIC - CBC + DIFF 11. BPH with obstruction/lower urinary tract symptoms - ICD9: 600.01, 599.69, ICD10: N40.1, N13.8 - clinically stable 12. Advance directive discussed with patient - ICD9: V65.49, ICD10: Z71.89 - up to date 13. Medication management - ICD9: V58.69, ICD10: Z79.899 Check - VITAMIN B12 BLOOD - MAGNESIUM BLD F/u in a year for extensive or sooner if issues. I spent a total of 40 minutes on the date of the service which included preparing to see the patient, [id number] patient care, completing clinical documentation, performing a medically appropriate examination, counseling and educating the patient/family/caregiver and ordering medications, tests, or procedures. Julio Licea MD documented in this encounterAshtabula County Medical Center10-03-2022 Miscellaneous Notes* Telephone Encounter - Nora De La Cruz LPN - 05/14/2022 3:59 PM EDT Pt reports [facility] says they sent rx for metoprolol 50 mg but he has not received it yet and he has been out for two days. Pt is asking for short rx to go to local pharmacy. Patient has been identified by name and date of : Yes Requested Prescriptions Pending Prescriptions Disp Refills metoprolol tartrate, short acting, (LOPRESSOR) 50 mg tablet 9 tablet 0 Sig: Take 0.5 tablet in the AM and 1 tablet in the pm RX INSTRUCTIONS: Patient aware RX will be sent to pharmacy. No need to notify patient. Nora De La Cruz LPN documented in this encounterAsht[facility]09-27-2022 Miscellaneous Notes* Telephone Encounter - Maeve Sarmiento LPN - 05/08/2022 8:40 AM EDT Pt requesting Rx refill to mail order pharmacy instead of local pharm. JONY: 02/22/22 NOV: 09/06/22 Last Refill: 04/24/22 #135 1 refill (change in pharm) Maeve Sarmiento LPN documented in this encounterAshtabula [facility]09-13-2022 Miscellaneous Notes* Telephone Encounter - Julio Licea MD - 04/24/2022 10:21 AM EDT The following approved medication requests have been transmitted electronically. Requested Prescriptions Signed Prescriptions Disp Refills metoprolol tartrate, short acting, (LOPRESSOR) 50 mg tablet 135 tablet 1 Sig: Taken 1/2 tablet am and 1 tablet in pm. Authorizing Provider: JULIO LICEA MD * Telephone Encounter - Imani Muller Ma - 04/24/2022 9:36 AM EDT Last office visit: 02/22/22 F/u scheduled: 09/06/22 Says per [employer] in [place], are you prescribing? RX INSTRUCTIONS: Patient states that dialysis changed his dosage of this medication to 25 mg.Patient aware RX will be sent to pharmacy. No need to notify patient. Imani Muller Ma * Telephone Encounter - Temi Alas - 04/24/2022 9:10 AM EDT Patient has been identified by name and date of : Yes Requested Prescriptions Pending Prescriptions Disp Refills metoprolol tartrate, short acting, (LOPRESSOR) 50 mg tablet Sig: Taken 1/2 tablet am and 1 tablet in pm. Per Cardiology at [place] RX INSTRUCTIONS: Patient states that dialysis changed his dosage of this medication to 25 mg.Patient aware RX will be sent to pharmacy. No need to notify patient. Temi Alas documented in this encounterAshtabula [facility]07-25-2022 Miscellaneous Notes* Telephone Encounter - Elana Candelario PA-C - 03/05/2022 8:45 AM EDT noted * Telephone Encounter - Anahi Galindo RN - 03/02/2022 2:47 PM EDT Pt called in and reports dialysis has put him on an iron pill Velphoro 500 mg three times a day with meals. Updated med list. documented in this encounterAshtabula [facility]07-18-2022 Miscellaneous Notes* Telephone Encounter - Francis Irizarry MA - 02/26/2022 9:25 AM EDT Patient notified and voiced understanding. Patient would like to do diet first. Mail information to help lower cholesterol to patient. Francis Irizarry MA * Telephone Encounter - Julio Licea MD - 02/25/2022 4:21 PM EDT Let patient know B12, Mg and liver functions were all ok. His lipid panel showed Trigs good at 36, HDL good at 58 and LDL elevated at 99 (goal<70 as was 73) . Suspect this may be diet related. Options are: 1) improve diet regarding fats and chol or 2) increase his lipitor to 80 mg a day? documented in this encounterAshtabula [facility] Center07-14-2022 Instructions* Patient Instructions* Julio Licea MD - 02/22/2022 11:17 AM EDT Consider getting the shingrix vaccine for the prevention of shingles from a local pharmacy documented in this encounterAshtabula [facility]07-14-2022 History of Present illness Narrative* Julio Licea MD - 02/22/2022 11:00 AM EDT Chief Complaint Patient presents with: F/U 6 months HPI Luis Manuel Duran JR is a 81 year old male who presents here today for 6 month follow up. Left hip pain x 1 day. No injury. Gets this on occasion and typically lasts 2-3 days and resolves. Patient with Hx of HTN, lipidemia, CAD, GERD, CKD. Hyperparathyroidism seeing Endo, essential tremor, BPH as well as those reviewed and addressed below and in ROS. patient getting dialysis 3 times a week. Has been placed on a phosphate binder. Otherwise has been doing well. Patient was in the ER recently for a swelling on the left side of neck and Dx with lymphadenitis. Patient was placed on a antibiotic and the swelling has resolved. He is finishing up the antibiotic. Did see ENT a week later for f/u. Had fistula placed in the right arm recently for diaylsis. Past medical history, appointments, medications, allergies reviewed. Previous Medical History PAST MEDICAL HISTORY Diagnosis Date Advance directive discussed with patient 12/15/2021 Discussed 12/2021 Anemia 10/15/2013 Anemia of chronic disease 10/15/2013 ASHD (arteriosclerotic heart disease) 03/06/2018 Benign essential tremor 07/03/2010 BPH with obstruction/lower urinary tract symptoms 08/01/2005 Chronic diastolic congestive heart failure (HCC) 12/15/2021 seeing cardio CKD (chronic kidney disease) stage 4, GFR 15-29 ml/min (HCC) 03/04/2017 COVID-19 virus infection 05/29/2021 05/27/2021 Diaphragmatic hernia without mention of obstruction or gangrene Hiatal hernia Elevated PSA 03/11/2019 Esophagitis, unspecified Essential hypertension, benign Ex-smoker 12/26/2020 Started age 18 up to 1.5 PPD and quit at age 35. 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) 10/15/2013 Living will on file 12/15/2021 DPA: Shea () Mild aortic stenosis 11/27/2021 Seeing Cardio Mild renal insufficiency 10/15/2013 Mixed hyperlipidemia 09/03/2013 Overweight (BMI 25.0-29.9) Parathyroid adenoma 05/27/2013 parathyroidectomy 05/27/13 Personal history of colonic polyps Colon polyps Primary hyperparathyroidism (HCC) 03/04/2017 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: 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 TIA (transient ischemic attack) 06/2010 Ulcer of esophagus without bleeding Unspecified transient cerebral ischemia WITH HEMIPHORESIS Vitamin D deficiency 10/15/2013 Previous Surgical History PAST SURGICAL HISTORY Procedure Laterality Date BX/EXC LYMPH NODE OPEN SUPERFICIAL COLONOSCOPY 12/22/2019 COLONOSCOPY FLX DX W/COLLJ SPEC WHEN PFRMD 08/2000 Colonoscopy COLONOSCOPY FLX DX W/COLLJ SPEC WHEN PFRMD 10/19/2008 EGD TRANSORAL BIOPSY SINGLE/MULTIPLE 10/19/2008 ESOPHAGOGASTRODUODENOSCOPY TRANSORAL DIAGNOSTIC ESOPHAGOGASTRODUODENOSCOPY TRANSORAL DIAGNOSTIC 12/22/[address] Marcial LAPAROSCOPIC HERNIA REPAIR Right 05/21/2018 recurrent incarcerated direct right inguinal hernia PARATHYROIDECTOMY/EXPLORATION PARATHYROIDS 05/27/2013 Parathyroid adenoma PAST SURGICAL HISTORY OF 01/20/2021 supraumbilical ventral hernia RPR 1ST INGUN HRNA AGE 5 YRS/> REDUCIBLE Hernia repair, inguinal BILATERAL Family History FAMILY HISTORY Problem Relation Age of Onset Colon Cancer Mother Colon Cancer Father Arthritis Mother Heart Father SD * 2 Prostate Cancer Brother Hypertension Brother None Brother Patient Allergies ALLERGIES Allergen Reactions Axid [Nizatidine] Unknown Entex Pse [Pseudoep* Unknown Lisinopril Cough Current Medications Current Outpatient Medications on File Prior to Visit Medication Sig furosemide (LASIX) 80 mg tablet 1 tablet twice daily. Per Cardio, [place] metoprolol tartrate, short acting, (LOPRESSOR) 50 mg tablet Taken 1/2 tablet am and 1 tablet in pm.Per Cardiology at [place] amLODIPine (NORVASC) 5 mg tablet Take 1 tablet by mouth once daily. omeprazole (PRILOSEC) 40 mg capsule Take 1 capsule by mouth daily before breakfast. 1/2 hr before meal. atorvastatin (LIPITOR) 40 mg tablet TAKE 1 TABLET BY MOUTH ONCE DAILY FOR CHOLESTEROL tamsulosin (FLOMAX) 0.4 mg Take 1 capsule by mouth daily at bedtime. nitroglycerin sublingual (NITROSTAT) 0.4 mg SL tablet Dissolve 1 tablet under the tongue every 5 minutes as needed. aspirin, enteric coated (ADULT LOW DOSE ASPIRIN) 81 mg EC tablet Take 1 tablet by mouth once daily. Current Facility-Administered Medications on File Prior to Visit Medication perflutren lipid microspheres 1.3 mL in NaCl (PF) 0.9% 10 mL injection (DEFINITY) sodium chloride 0.9 % (flush) 10 mL (BD POSIFLUSH) Social History Social History Tobacco Use Smoking status: Former Smoker Smokeless tobacco: Never Used Tobacco comment: quit 1975 Substance Use Topics Alcohol use: Yes Comment: socially Drug use: No Review of Symptoms REVIEW OF SYSTEMS GENERAL: No weight loss, malaise or fevers NECK: Negative for lumps, goiter, pain and significant neck swelling. See HPI RESPIRATORY: Negative for cough, hemoptysis, wheezing, COPD, dyspnea or shortness of breath CARDIOVASCULAR: Negative for chest pain, leg swelling, hypertension, CHF or palpitations GI: No nausea, vomiting, or diarrhea and No heartburn or reflux symptoms : No history of dysuria, blood NEURO: No history of headaches, syncope, paralysis, seizures or tremors EXAM: BP 128/62 (BP Site: Left Arm, BP Position: Sitting, BP Cuff Size: Regular Adult) Pulse (!) 52 Resp 18 Wt 75.8 kg (167 lb) BMI 26.16 kg/m Last 6 Encounter Wt Readings: Date: Wt: 02/22/2022 75.8 kg (167 lb) 02/11/2022 77.1 kg (170 lb) 12/15/2021 78 kg (172 lb) 11/17/2021 84.8 kg (187 lb) 10/30/2021 82.7 kg (182 lb 6.4 oz) 10/19/2021 81.6 kg (180 lb) General Appearance: Well appearing, alert, in no acute distress, well-hydrated, well nourished.. Neck: Supple, no adenopathy; thyroid symmetric, normal size, no bruits. Lungs: Lungs clear to auscultation. No wheezing, rhonchi, rales.. Heart: RRR without gallop, or rubs. No ectopy. Soft 2/6 ANGIE Abdomen: Normal abdominal exam, Abdomen soft, non-tender. Bowel sounds normal. No masses, organomegaly. Extremities: No deformities, edema, skin discoloration, Peripheral Pulses: Normal. Health Maintenance List SHINGRIX VACCINE(1 of 2) Never done COVID-19 VACCINE(4 - Booster for Moderna series) due on 11/29/2021 LDL CHOLESTEROL due on 12/26/2021 BP CONTROLLED (<130/80) due on 12/26/2021 DEPRESSION SCREENING due on 12/26/2021 INFLUENZA(1) due on 04/12/2022 SERUM CREATININE due on 11/30/2022 HEMOGLOBIN/HEMATOCRIT due on 11/30/2022 ANNUAL PCP TEAM CHRONIC DISEASE VISIT due on 12/15/2022 DIABETES SCREEN due on 10/13/2024 DTAP,TDAP,TD(4 - Td or Tdap) due on 11/01/2028 ADVANCE DIRECTIVE DISCUSSION Completed PNEUMOCOCCAL: 65+ Completed Data reviewed Component Latest Ref Rng & Units 10/19/2021 11/30/2021 Albumin 3.9 - 4.9 g/dL 3.6 (L) Calcium 8.5 - 10.2 mg/dL 10.0 Phosphorus 2.7 - 4.8 mg/dL 5.2 (H) Glucose 74 - 99 mg/dL 105 (H) BUN 9 - 24 mg/dL 60 (H) Creatinine 0.73 - 1.22 mg/dL 5.35 (H) Sodium 136 - 144 mmol/L 140 Potassium 3.7 - 5.1 mmol/L 5.0 Chloride 97 - 105 mmol/L 108 (H) CO2 22 - 30 mmol/L 23 Anion Gap 9 - 18 mmol/L 9 eGFR >=60 mL/min/1.73m 10 (L) TSH 0.270 - 4.200 mIU/L 3.200 Component Latest Ref Rng & Units 11/30/2021 WBC 3.70 - 11.00 k/uL 5.48 RBC 4.20 - 6.00 m/uL 2.95 (L) Hemoglobin 13.0 - 17.0 g/dL 8.7 (L) Hematocrit 39.0 - 51.0 % 28.6 (L) MCV 80.0 - 100.0 fL 96.9 MCH 26.0 - 34.0 pg 29.5 MCHC 30.5 - 36.0 g/dL 30.4 (L) RDW-CV 11.5 - 15.0 % 15.1 (H) Platelet Count 150 - 400 k/uL 146 (L) MPV 9.0 - 12.7 fL 11.8 Absolute nRBC <0.01 k/uL <0.01 Hg on on 02/21/2022 was 11.6 Potassium: 4.5, Ca.7 A/P ASSESSMENT/PLAN: 1. Essential hypertension, benign - ICD9: 401.1, ICD10: I10 (primary diagnosis) - good control - Continue current medication(s) - Recommended regular aerobic exercise. - Recommend home blood pressure monitoring, to bring results in on next visit - Goal of BP <130/80 - LIPID PANEL, NONFASTING - URINALYSIS, WITH MICROSCOPIC - HEPATIC FUNCTION PNL 2. Mixed hyperlipidemia - ICD9: 272.2, ICD10: E78.2 - to be determined upon return of lab results - Encouraged following a low fat, low cholesterol diet. - Discussed the benefits of regular aerobic exercise and weight loss. - Encouraged following a low carbohydrate, healthy oil intake diet. - Continue current therapy. - LIPID PANEL, NONFASTING - URINALYSIS, WITH MICROSCOPIC - HEPATIC FUNCTION PNL 3. Anemia of chronic disease - ICD9: 285.29, ICD10: D63.8 - Monitored by renal and treated when needed. 4. GERD without esophagitis - ICD9: 530.81, ICD10: K21.9 - Continue treatment with Protonix 40 mg QD - VITAMIN B12 BLOOD - MAGNESIUM BLD 5. ASHD (arteriosclerotic heart disease) - ICD9: 414.00, ICD10: I25.10 - clinically stable cont f/u with cardio - LIPID PANEL, NONFASTING 6. Chronic diastolic congestive heart failure (HCC) - ICD9: 428.32, 428.0, ICD10: I50.32 - As per #5 7. Mild aortic stenosis - ICD9: 424.1, ICD10: I35.0 - as per #5 8. CKD (chronic kidney disease) stage 4, GFR 15-29 ml/min (HCC) - ICD9: 585.4, ICD10: N18.4 - Management per renal. On dialysis three days a week. 9. Primary hyperparathyroidism (HCC) - ICD9: 252.01, ICD10: E21.0 - As per #9 10. Benign essential tremor - ICD9: 333.1, ICD10: G25.0 - stable 11. Medication management - ICD9: V58.69, ICD10: Z79.899 Check - VITAMIN B12 BLOOD - MAGNESIUM BLD F/u 6 months extensive Julio Licea MD documented in this encounterAshtabula [facility]07-03-2022 History of Present illness Narrative* Lisa Irizarry APRN.MAMMOGRAPHER - 02/11/2022 1:27 PM EDT Patient came in with complaints of lump on left side of neck. Patient said it started yesterday andis painful. The lump is about the size of a golf ball. patient has declining kidney function and ondialysis. Patient creatine catrer is 12. patient being referred to the ED for full evaluation at this time for his safety. documented in this encounterAshtabula [facility]06-16-2022 History of Present illness Narrative* Fannie Greer - 01/25/2022 4:27 PM EDT POPULATION HEALTH NAVIGATION OUTREACH Action/ Patient returned outreach call and declined scheduling with [facility]. Care outside [facility] Pt identified by name and : YES, via phone Outreach Outcome/Action Spoke to patient or caregiver: Patient declined Did you use a PCP flex slot to schedule this appointment? No Reason for Outreach Care Gap or Scheduling/Wellness visits Payer: Payor: [facility] / Plan: [facility] MED[employer] HMO / Product Type: HMO / Care Gap Reviewed:: Follow-up appointment Reminder: Reminder note to check Health Maintenance for items below Health Maintenance items due: SHINGRIX VACCINE(1 of 2) Never done COVID-19 VACCINE(4 - Booster for Moderna series) due on 11/29/2021 DEPRESSION SCREENING due on 12/26/2021 LDL CHOLESTEROL due on 12/26/2021 Message Sent to Practice: No Navigation Signature: Fannie Greer January 25, 2022 4:27 PM * Inga Quintero Pss - 01/25/2022 3:55 PM EDT POPULATION HEALTH NAVIGATION OUTREACH Action/FYI Patient Outreach: [facility] - Left voicemail for patient to call back to schedule followup with CKD. Any agent can assist with scheduling. Pt identified by name and : NO Outreach Outcome/Action Unable to reach patient: Left message Did you use a PCP flex slot to schedule this appointment? No Reason for Outreach Care Gap or Scheduling/Wellness visits Payer: Payor: [facility] [employer] / Plan: [employer] MEDICARE HMO / Product Type: HMO / Care Gap Reviewed:: Follow-up appointment Reminder: Reminder note to check Health Maintenance for items below Health Maintenance items due: SHINGRIX VACCINE(1 of 2) Never done COVID-19 VACCINE(4 - Booster for Moderna series) due on 11/29/2021 DEPRESSION SCREENING due on 12/26/2021 LDL CHOLESTEROL due on 12/26/2021 Message Sent to Practice: No Navigation Signature: Inga Restrepoain [facility] January 25, 2022 3:55 PM documented in this encounterAshtabula [facility] Center05-06-2022 History of Present illness Narrative* Julio Licea MD - 12/15/2021 11:23 AM EDT Chief Complaint Patient presents with: ER F/U: patient was since [facility]; Cough: patient has developed a cough over the past 5 days; no other sx. HPI Luis Manuel Guzman Roger JACKSON is a 81 year old male who presents here today for ER Follow Up.. Patient was in [facility] due to swelling and retaining fluids. Patient was in acute congestiveheart failure and kidney failure. Patient is following up with Cardio and Kidney and has appointments scheduled. They are scheduling and endoscopy and a view of the heart to determine if bleeding ulcer and rule out value issue. Patient is currently doing dialysis Tues, Thur and Sat breathing has been better, the leg swelling is resolved. No chest pain. Has had a cough the last 5 days. In the last few days he has bene brining up some mucus with no color. has the same symptoms. No nausea, vomiting or diarrhea. No fevers. Past medical history, appointments, medications, allergies reviewed. 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 Family history of malignant neoplasm of gastrointestinal tract GERD without esophagitis Gastroesophageal reflux History of non-ST elevation myocardial infarction (NSTEMI) 03/06/2018 09/06/14-- stent 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 deficiency ([facility]) 10/15/2013 Mild aortic stenosis 11/27/2021 Seeing Cardio Mild renal insufficiency 10/15/2013 Mixed hyperlipidemia 09/03/2013 Overweight (BMI 25.0-29.9) Parathyroid adenoma 05/27/2013 parathyroidectomy 05/27/13 Personal history of colonic polyps Colon polyps Primary hyperparathyroidism ([facility]) 03/04/2017 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: 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 TIA (transient ischemic attack) 06/2010 Ulcer of esophagus without bleeding Unspecified transient cerebral ischemia WITH HEMIPHORESIS Vitamin D deficiency 10/15/2013 Previous Surgical History PAST SURGICAL HISTORY Procedure Laterality Date BX/EXC LYMPH NODE OPEN SUPERFICIAL COLONOSCOPY 12/22/2019 COLONOSCOPY FLX DX W/COLLJ SPEC WHEN PFRMD 08/2000 Colonoscopy COLONOSCOPY FLX DX W/COLLJ SPEC WHEN PFRMD 10/19/2008 EGD TRANSORAL BIOPSY SINGLE/MULTIPLE 10/19/2008 ESOPHAGOGASTRODUODENOSCOPY TRANSORAL DIAGNOSTIC ESOPHAGOGASTRODUODENOSCOPY TRANSORAL DIAGNOSTIC 12/22/[address] Marcial LAPAROSCOPIC HERNIA REPAIR Right 05/21/2018 recurrent incarcerated direct right inguinal hernia PARATHYROIDECTOMY/EXPLORATION PARATHYROIDS 05/27/2013 Parathyroid adenoma PAST SURGICAL HISTORY OF 01/20/2021 supraumbilical ventral hernia RPR 1ST INGUN HRNA AGE 5 YRS/> REDUCIBLE Hernia repair, inguinal BILATERAL Family History FAMILY HISTORY Problem Relation Age of Onset Colon Cancer Mother Colon Cancer Father Arthritis Mother Heart Father SD * 2 Prostate Cancer Brother Hypertension Brother None Brother Patient Allergies ALLERGIES Allergen Reactions Axid [Nizatidine] Unknown Entex Pse [Pseudoep* Unknown Lisinopril Cough Current Medications Current Outpatient Medications on File Prior to Visit Medication Sig atorvastatin (LIPITOR) 40 mg tablet TAKE 1 TABLET BY MOUTH ONCE DAILY FOR CHOLESTEROL doxazosin (CARDURA) 2 mg tablet Take 2 mg by mouth once daily. Per cardiology amLODIPine (NORVASC) 10 mg tablet Take 1 tablet by mouth once daily. (Patient taking differently: Take 5 mg by mouth once daily. ) metoprolol tartrate, short acting, (LOPRESSOR) 50 mg tablet Take 1 tablet by mouth twice daily. (Patient taking differently: Take 50 mg by mouth twice daily. Taken 1/2 tablet am and 1 tablet in pm ) tamsulosin (FLOMAX) 0.4 mg Take 1 capsule by mouth daily at bedtime. furosemide (LASIX) 20 mg tablet 40 mg twice daily. nitroglycerin sublingual (NITROSTAT) 0.4 mg SL tablet Dissolve 1 tablet under the tongue every 5 minutes as needed. aspirin, enteric coated (ADULT LOW DOSE ASPIRIN) 81 mg EC tablet Take 1 tablet by mouth once daily. omeprazole (PRILOSEC) 40 mg capsule Take 1 capsule by mouth daily before breakfast. 1/2 hr before meal. Current Facility-Administered Medications on File Prior to Visit Medication perflutren lipid microspheres 1.3 mL in NaCl (PF) 0.9% 10 mL injection (DEFINITY) sodium chloride 0.9 % (flush) 10 mL (BD POSIFLUSH) Social History Social History Tobacco Use Smoking status: Former Smoker Smokeless tobacco: Never Used Tobacco comment: quit 1975 Substance Use Topics Alcohol use: Yes Comment: socially Drug use: No Review of Symptoms REVIEW OF SYSTEMS See HPI EXAM: BP 120/52 (BP Site: Right Arm, BP Position: Sitting, BP Cuff Size: Regular Adult) Pulse (!) 48 Resp 18 Wt 78 kg (172 lb) BMI 26.94 kg/m General Appearance: Well appearing, alert, in no acute distress, well-hydrated, well nourished.. Neck: Supple, no adenopathy; thyroid symmetric, normal size, no bruits. Lungs: Lungs clear to auscultation. No wheezing, rhonchi, rales.. Heart: RRR without murmur, gallop, or rubs. No ectopy. Abdomen: Normal abdominal exam, Abdomen soft, non-tender. Bowel sounds normal. No masses, organomegaly. Extremities: No deformities, edema. Peripheral Pulses: Normal except slightly diminished in the legs. Health Maintenance List SHINGRIX VACCINE(1 of 2) Never done ADVANCE DIRECTIVE DISCUSSION Never done LDL CHOLESTEROL due on 12/26/2021 BP CONTROLLED (<130/80) due on 12/26/2021 DEPRESSION SCREENING due on 12/26/2021 SERUM CREATININE due on 11/30/2022 HEMOGLOBIN/HEMATOCRIT due on 11/30/2022 ANNUAL PCP TEAM CHRONIC DISEASE VISIT due on 12/15/2022 DIABETES SCREEN due on 10/13/2024 DTAP,TDAP,TD(4 - Td or Tdap) due on 11/01/2028 INFLUENZA Completed PNEUMOVAX AGE 65 AND OVER WITH 5YR LOOKBACK Completed COVID-19 VACCINE Completed MENINGOCOCCAL CONJUGATE Aged Out Data reviewed Hospital reports A/P ASSESSMENT/PLAN: 1. Chronic diastolic congestive heart failure (HCC) - ICD9: 428.32, 428.0, ICD10: I50.32 (primary diagnosis) - Acute episode resolved. - Cont management per cardio - No changes. 2. CKD (chronic kidney disease) stage 4, GFR 15-29 ml/min (HCC) - ICD9: 585.4, ICD10: N18.4 - Management per renal 3. URI, acute - ICD9: 465.9, ICD10: J06.9 - Discussed viral etiology and rationale for treatment. - Symptomatic treatment with prn analgesia - Supportive care with fluids and rest - patient to call office if sputum starts to change color and being green/yellow. If so will treat with course of antibiotics. 4. Living will on file - ICD9: V49.89, ICD10: Z87.898 - On chart 5. Advance directive discussed with patient - ICD9: V65.49, ICD10: Z71.89 - As per #4 Julio Licea MD documented in this encounterAshtabula [facility] Center04-29-2022 Miscellaneous Notes* Telephone Encounter - Anali Orourke RN - 12/08/2021 8:32 AM EDT TRANSITION CARE MANAGEMENT (TCM) INITIAL CONTACT Partnership Manager Outreach Provider Action/FYI: Patient was put on Dialysis in Hospital. Patient to continue Dialysis //Sat and [facility]. Initial contact with patient post discharge, spoke to spouse. Patient identified by name and . TRANSITION CARE MANAGEMENT INITIAL OUTREACH DOCUMENTATION: No flowsheet data found. SUMMARY: -Pt discharged from [facility] on 12/07/2021. -Admitted for: Kidney and Heart Issues Do you have a hospital follow up appointment with your PCP? Appointment on 12/15/[address] Licea. Yes. Remind patient of appointment date, time, and location. If not within 14 calendar days of discharge - please reschedule accordingly. MEDICATIONS: Many patients have questions or concerns about their medications once they are home. Were you prescribed any new medications? If yes, what are those medications? Calcitriol Pantoprazole Amliopine decreased dose to 5 mg daily Furosemide 40 mg 2 tablets BID Metroprolol 25 mg BID Were you told to hold any medications? No Were any of your medications discontinued? If yes, what are those medications? Nitroglycerin Omepreazol Tamuolsin Do you have any questions about getting or taking your medications? No Your discharge instructions/After visit Summary (AVS) are important in guiding you through the recovery process. Is there anything I might help you understand? No Do you have all the necessary equipment and supplies at home? Yes Medical records from recent hospitalization: Requested from outside hospital [facility] Discharge instructions Patient Education 12/07/2021 17:34:30 6- Heart Failure Discharge Instructions (20201215 R: 02/14)(CUSTOM) Heart Failure Discharge Instructions Know your symptoms of heart failure: Call your doctor for: Weight gain Shortness of breath Swelling Weigh yourself every day Call your doctor for a weight gain of: 2 or more pounds in a day or 3 pounds in a week Eat a low sodium diet Do not drink alcohol or use illegal drugs If you smoke, STOP Take your medications every day as directed by your doctor. Do NOT skip a dose AVOID non-steroidal anti-inflammatory medications, such as ibuprofen Get your flu and pheumonia shots as recommended by your doctor Activity as recommended by your doctor Keep your follow-up appointments with your doctor Form 20201215 R:02/1412/07/2021 17:34:17 How to Take Your Blood Pressure How to Take Your Blood Pressure Blood pressure is a measurement of how strongly your blood is pressing against the goldsmith of your arteries. Arteries are blood vessels that carry blood from your heart throughout your body. Your health care provider takes your blood pressure at each office visit. You can also take your own blood pressure at home with a blood pressure machine. You may need to take your own blood pressure: To confirm a diagnosis of high blood pressure (hypertension). To monitor your blood pressure over time. To make sure your blood pressure medicine is working. Supplies needed: To take your blood pressure, you will need a blood pressure machine. You can buy a blood pressure machine, or blood pressure monitor, at most [employer] or online. There are several types of home blood pressure monitors. When choosing one, consider the following: Choose a monitor that has an arm cuff. Choose a cuff that wraps snugly around your upper arm. You should be able to fit only one finger between your arm and the cuff. Do not choose a monitor that measures your blood pressure from your wrist or finger. Your health care provider can suggest a reliable monitor that will meet your needs. How to prepare To get the most accurate reading, avoid the following for 30 minutes before you check your blood pressure: Drinking caffeine. Drinking alcohol. Eating. Smoking. Exercising. Five minutes before you check your blood pressure: Empty your bladder. Sit quietly without talking in a dining chair, rather than in a soft couch or armchair. How to take your blood pressure To check your blood pressure, follow the instructions in the manual that came with your blood pressure monitor. If you have a digital blood pressure monitor, the instructions may be as follows: 1.Sit up straight. 2.Place your feet on the floor. Do not cross your ankles or legs. 3.Rest your left arm at the level of your heart on a table or desk or on the arm of a chair. 4.Pull up your shirt sleeve. 5.Wrap the blood pressure cuff around the upper part of your left arm, 1 inch (2.5 cm) above your elbow. It is best to wrap the cuff around bare skin. 6.Fit the cuff snugly around your arm. You should be able to place only one finger between the cuffand your arm. 7.Position the cord inside the groove of your elbow. 8.Press the power button. 9.Sit quietly while the cuff inflates and deflates. 10.Read the digital reading on the monitor screen and write it down (record it). 11.Wait 2 3 minutes, then repeat the steps, starting at step 1. What does my blood pressure reading mean? A blood pressure reading consists of a higher number over a lower number. Ideally, your blood pressure should be below 120/80. The first (top) number is called the systolic pressure. It is a measure of the pressure in your arteries as your heart beats. The second (bottom) number is called the diastolic pressure. It is a measure of the pressure in your arteries as the heart relaxes. Blood pressure is classified into four stages. The following are the stages for adults who do not have a short-term serious illness or a chronic condition. Systolic pressure and diastolic pressure are measured in a unit called mm Hg. Normal Systolic pressure: below 120. Diastolic pressure: below 80. Elevated Systolic pressure: 120 129. Diastolic pressure: below 80. Hypertension stage 1 Systolic pressure: 130 139. Diastolic pressure: 80 89. Hypertension stage 2 Systolic pressure: 140 or above. Diastolic pressure: 90 or above. You can have prehypertension or hypertension even if only the systolic or only the diastolic numberin your reading is higher than normal. Follow these instructions at home: Check your blood pressure as often as recommended by your health care provider. Take your monitor to the next appointment with your health care provider to make sure: ?That you are using it correctly. ?That it provides accurate readings. Be sure you understand what your goal blood pressure numbers are. Tell your health care provider if you are having any side effects from blood pressure medicine. Contact a health care provider if: Your blood pressure is consistently high. Get help right away if: Your systolic blood pressure is higher than 180. Your diastolic blood pressure is higher than 110. This information is not intended to replace advice given to you by your health care provider. Make sure you discuss any questions you have with your health care provider. Document Released: 01/04/2017 Document Revised: 07/11/2018 Document Reviewed: 01/04/2017 [employer] Patient Education 2020 [employer]. 12/07/2021 17:32:51 Anemia Anemia Anemia is a condition in which you do not have enough red blood cells or hemoglobin. Hemoglobin is a substance in red blood cells that carries oxygen. When you do not have enough red blood cells or hemoglobin (are anemic), your body cannot get enough oxygen and your organs may not work properly. Asa result, you may feel very tired or have other problems. What are the causes? Common causes of anemia include: Excessive bleeding. Anemia can be caused by excessive bleeding inside or outside the body, including bleeding from the intestine or from periods in women. Poor nutrition. Long-lasting (chronic) kidney, thyroid, and liver disease. Bone marrow disorders. Cancer and treatments for cancer. HIV (human immunodeficiency virus) and AIDS (acquired immunodeficiency syndrome). Treatments for HIV and AIDS. Spleen problems. Blood disorders. Infections, medicines, and autoimmune disorders that destroy red blood cells. What are the signs or symptoms? Symptoms of this condition include: Minor weakness. Dizziness. Headache. Feeling heartbeats that are irregular or faster than normal (palpitations). Shortness of breath, especially with exercise. Paleness. Cold sensitivity. Indigestion. Nausea. Difficulty sleeping. Difficulty concentrating. Symptoms may occur suddenly or develop slowly. If your anemia is mild, you may not have symptoms. How is this diagnosed? This condition is diagnosed based on: Blood tests. Your medical history. A physical exam. Bone marrow biopsy. Your health care provider may also check your stool (feces) for blood and may do additional testingto look for the cause of your bleeding. You may also have other tests, including: Imaging tests, such as a CT scan or MRI. Endoscopy. Colonoscopy. How is this treated? Treatment for this condition depends on the cause. If you continue to lose a lot of blood, you may need to be treated at a hospital. Treatment may include: Taking supplements of iron, vitamin B12, or folic acid. Taking a hormone medicine (erythropoietin) that can help to stimulate red blood cell growth. Having a blood transfusion. This may be needed if you lose a lot of blood. Making changes to your diet. Having surgery to remove your spleen. Follow these instructions at home: Take zkrw-evd-hhclavd and prescription medicines only as told by your health care provider. Take supplements only as told by your health care provider. Follow any diet instructions that you were given. Keep all follow-up visits as told by your health care provider. This is important. Contact a health care provider if: You develop new bleeding anywhere in the body. Get help right away if: You are very weak. You are short of breath. You have pain in your abdomen or chest. You are dizzy or feel faint. You have trouble concentrating. You have bloody or black, tarry stools. You vomit repeatedly or you vomit up blood. Summary Anemia is a condition in which you do not have enough red blood cells or enough of a substance in your red blood cells that carries oxygen (hemoglobin). Symptoms may occur suddenly or develop slowly. If your anemia is mild, you may not have symptoms. This condition is diagnosed with blood tests as well as a medical history and physical exam. Other tests may be needed. Treatment for this condition depends on the cause of the anemia. This information is not intended to replace advice given to you by your health care provider. Make sure you discuss any questions you have with your health care provider. Document Released: 09/05/2005 Document Revised: 07/11/2018 Document Reviewed: 08/30/2017 [employer] Patient Education 2020 [employer]. Follow Up Care 11/30/2021 18:35:13 With:Tierney Miguel Address: [address] [facility] [place] [address]- [phone] When:12/09/2021 11:00:00 Comments:Your schedule will be t//s at noon. Please arrive at 11am on your first day. With:JULIO LICEA MD Address: [address] [place] [address]- When:1-2 days With:CRISTIANO PLATT MD Address: [address] [facility] [address] [facility] [place], [place] [id number]- [phone] When:12/11/2021 13:00:00 Comments:THIS APPOINTMENT WILL BE WITH VIOLETTE VENTURA - This is your heart failure appointment. An appointment with your post anesthesia nurse will be made at this visit. [facility] 04-22-2022 Miscellaneous Notes* Telephone Encounter - Anali Ramos - 12/01/2021 12:32 PM EDT Left message for patient to return call. When patient calls, please schedule the following appointments, with labs [address] Encinas appt: DEPT: LAB [facility] APPT NOTE: LAB APPT TYPE: LAB DEPT: [facility] APPT NOTE: LABS/INTERACTIVE MEDIA MARKETING STRATEGIST/ANEMIA/RAINA ZAYAS REF* this date/time per provider schedule APPT TYPE: NEW PATIENT PROVIDER: FRANK ENCINAS Once scheduled, document and route this note to [facility] HEM/ON[facility] PSR for further documentation. Anali Ramos * Telephone Encounter - Idalmis Gold - 11/30/2021 3:08 PM EDT DX: Anemia Ref: Dr. Zayas File given to nurses. Idalmis Gold documented in this encounter[facility] Evaluation + Plan note Extracted from: Title:History and Physical Author:ELISE SINGH MD Date:11/30/21 1. Acute CHF exacerbation 2. Acute hemoglobin drop 3. Ventricular quadrigeminy 4. MOISÉS on CKD 5. CAD s/p PCI 2014 6. History of HFpEF 7. S/p parathyroidectomy in 2012 8. History of hypertension 9. History of dyslipidemia 10. History of GERD on Protonix 11. DVT prophylaxis 12. CODE STATUS Plan: Acute heart failure exacerbation Likely secondary to heart failure exacerbation Vs MOISÉS on CKD versus acutely worsening HB. Patient presented with progressively worsening shortness of breath and bilateral lower extremity edema x2 months. proBNP 8416, D-dimer 771, EKG NSR, troponin x2 negative. Physical exam pertinent with elevated JVD and B/L extremity edema. Patient takes Lasix 40 twice daily at home. Per Dr. Serrano's recommendations from yesterday office note, Given MOISÉS with worsening creatinine, will hold off Lasix and consult nephrology. We will also hold off on aspirin given acute drop in Hb from 11 to 8.7. Repeat H&H O2 support as needed and keep sat greater than 92% Acute hemoglobin drop Hemoglobin baseline 10.5 11. On arrival hemoglobin 8.7. No signs and symptoms of visible bleed. Repeat H&H Hold off aspirin and subcu heparin Ventricular quadrigeminy Patient's EKG and alarm security or surveillance monitor reads PVCs after every 4 beats. Could be due to the scar tissue present from old SD. Cut down beta-ekaterina and resume (per Dr. Platt's note) Continue telemetry monitoring Replace electrolytes as needed MOISÉS on CKD Patient having progressively worsening creatinine. Creatinine was 1.87 on 11/02/2021, 4.72 on 10/19/2021 and 3.06 on 02/2021. Given MOISÉS, Hold off Lasix Consult nephrology Avoid nephrotoxins Fluid restriction CAD s/p PCI 2014 PCI to 85% stenosis in proximal LCx. Balloon angioplasty and stent placement. Ejection fraction was 35 to 40% with moderate hypokinesis of posterior basal and posterior lateral myocardium. keep the patient n.p.o. midnight till further evaluation by cardiology Continue aspirin statin and beta-ekaterina For the history of GERD, hypertension, hypercholesterolemia Resume the home medications Diet: N.p.o. DVT prophylaxis: Subcu heparin CODE STATUS full CODE STATUS Case discussed with the senior resident and paper supervisor. For further recommendations please see the addendum below by the attending physician. Thank you Addendum by AIMEE PLATT MD on December 01, 2021 09:49:08 EDT I have personally seen, examined, and evaluated the patient on the encounter date. I have reviewed the resident's documentation and agree with the resident's findings and plan as documented, unless otherwise stated. Agree with above For ectopy will need more betablocker eventually but for now as in decompensated chf deescalate betablocker while effective fluid strategy to be determined Also per my office note renal consult for group Future Appointments Appointment Date:12/11/2021 01:00:00 PM Scheduled Provider:LORENZO CAMPBELL Location:[facility] Appointment Type:[facility] Hospital Follow Up Appointment Date:01/16/2022 12:15:00 PM Scheduled Provider: Location:[facility] Appointment Type:CV OV Diagnostic Tests Pending * Stool for Occult Blood (Lab) 12/01/21 [facility] 04-19-2022 Miscellaneous Notes* Telephone Encounter - Bernice Garcia Ma - 11/28/2021 8:28 AM EDT Patient/spouse were notified and is seeing cardiology at [place] Dr. Ronny Macias Bernice Garcia Ma * Telephone Encounter - Julio Licea MD - 11/27/2021 5:04 PM EDT Let know stress test was negative. He does have mild stenosis of his aortic valve which shouldbe monitored by his post anesthesia nurse. If thy know the name of the provider we can fax a copy of the result to them. * Telephone Encounter - Rosalina Longo LPN - 11/27/2021 4:55 PM EDT Will bring to provider office for review. * Telephone Encounter - Julio Licea MD - 11/27/2021 4:47 PM EDT Can we see if we can get stress test results from [facility]. I have not seen them yet. * Telephone Encounter - Maeve Rosas LPN - 11/27/2021 2:04 PM EDT Patient Shea calling asking for results of nuclear stress test done at [facility] on 11/22. Please advise documented in this encounter[facility] History of Present illness Narrative* Julio Licea MD - 11/17/2021 10:40 AM EDT Chief Complaint Patient presents with: Recheck: patient is here for follow up on cough/dyspepsia HPI Luis Manuel Duran JR is a 80 year old male who presents here today for Above Complaints.. Patient is here for follow up on cough which is improving. Still having some SOB when active. Patient indicated that he is scheduled for stress test at [facility] next week. Patient indicated that his left shoulder was discussed at last visit briefly but the cough was the main concern. Patient indicated that he has been trying to rest the shoulder. No fall or injury but had been out cutting wood. Improving but still some discomfort with certain moves. Patient continues to have a sour stomach and slight acid taste but thses do seem Improved. Past medical history, appointments, medications, allergies reviewed. 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 Family history of malignant neoplasm of gastrointestinal tract GERD without esophagitis Gastroesophageal reflux History of non-ST elevation myocardial infarction (NSTEMI) 03/06/2018 09/06/14-- stent 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 deficiency ([facility]) 10/15/2013 Mild renal insufficiency 10/15/2013 Mixed hyperlipidemia 09/03/2013 Overweight (BMI 25.0-29.9) Parathyroid adenoma 05/27/2013 parathyroidectomy 05/27/13 Personal history of colonic polyps Colon polyps Primary hyperparathyroidism ([facility]) 03/04/2017 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: 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 TIA (transient ischemic attack) 06/2010 Ulcer of esophagus without bleeding Unspecified transient cerebral ischemia WITH HEMIPHORESIS Vitamin D deficiency 10/15/2013 Previous Surgical History PAST SURGICAL HISTORY Procedure Laterality Date BX/EXC LYMPH NODE OPEN SUPERFICIAL COLONOSCOPY 12/22/2019 COLONOSCOPY FLX DX W/COLLJ SPEC WHEN PFRMD 08/2000 Colonoscopy COLONOSCOPY FLX DX W/COLLJ SPEC WHEN PFRMD 10/19/2008 EGD TRANSORAL BIOPSY SINGLE/MULTIPLE 10/19/2008 ESOPHAGOGASTRODUODENOSCOPY TRANSORAL DIAGNOSTIC ESOPHAGOGASTRODUODENOSCOPY TRANSORAL DIAGNOSTIC 12/22/[address] Marcial LAPAROSCOPIC HERNIA REPAIR Right 05/21/2018 recurrent incarcerated direct right inguinal hernia PARATHYROIDECTOMY/EXPLORATION PARATHYROIDS 05/27/2013 Parathyroid adenoma PAST SURGICAL HISTORY OF 01/20/2021 supraumbilical ventral hernia RPR 1ST INGUN HRNA AGE 5 YRS/> REDUCIBLE Hernia repair, inguinal BILATERAL Family History FAMILY HISTORY Problem Relation Age of Onset Colon Cancer Mother Colon Cancer Father Arthritis Mother Heart Father SD * 2 Prostate Cancer Brother Hypertension Brother None Brother Patient Allergies ALLERGIES Allergen Reactions Axid [Nizatidine] Unknown Entex Pse [Pseudoep* Unknown Lisinopril Cough Current Medications Current Outpatient Medications on File Prior to Visit Medication Sig atorvastatin (LIPITOR) 40 mg tablet TAKE 1 TABLET BY MOUTH ONCE DAILY FOR CHOLESTEROL doxazosin (CARDURA) 2 mg tablet Take 2 mg by mouth once daily. Per cardiology omeprazole (PRILOSEC) 20 mg capsule Take 1 capsule by mouth daily before breakfast. 1/2 hr before meal. amLODIPine (NORVASC) 10 mg tablet Take 1 tablet by mouth once daily. metoprolol tartrate, short acting, (LOPRESSOR) 50 mg tablet Take 1 tablet by mouth twice daily. tamsulosin (FLOMAX) 0.4 mg Take 1 capsule by mouth daily at bedtime. furosemide (LASIX) 20 mg tablet nitroglycerin sublingual (NITROSTAT) 0.4 mg SL tablet Dissolve 1 tablet under the tongue every 5 minutes as needed. aspirin, enteric coated (ADULT LOW DOSE ASPIRIN) 81 mg EC tablet Take 1 tablet by mouth once daily. Current Facility-Administered Medications on File Prior to Visit Medication perflutren lipid microspheres 1.3 mL in NaCl (PF) 0.9% 10 mL injection (DEFINITY) sodium chloride 0.9 % (flush) 10 mL (BD POSIFLUSH) Social History Social History Tobacco Use Smoking status: Former Smoker Smokeless tobacco: Never Used Tobacco comment: quit 1975 Substance Use Topics Alcohol use: Yes Comment: socially Drug use: No Review of Symptoms REVIEW OF SYSTEMS See HPI EXAM: BP 148/78 (BP Site: Right Arm, BP Position: Sitting, BP Cuff Size: Regular Adult) Pulse (!) 56 Resp 16 Wt 84.8 kg (187 lb) SpO2 94% BMI 29.29 kg/m General Appearance: Well appearing, alert, in no acute distress, well-hydrated, well nourished.. Neck: Supple, no adenopathy; thyroid symmetric, normal size, no bruits. Lungs: Lungs clear to auscultation. No wheezing, rhonchi, rales.. Heart: RRR without murmur, gallop, or rubs. No ectopy. Extremities: No deformities, mild edema. Left shoulder: Normal nears test but positive Hawken's exam. Mild pain with passive rotation. Gastro: Soft, NT/ND normal BS. No hepatosplenomegaly/masses/bruits. Health Maintenance List ADVANCE DIRECTIVE DISCUSSION Never done SHINGRIX VACCINE(1 of 2) due on 2021 LDL CHOLESTEROL due on 12/26/2021 HEMOGLOBIN/HEMATOCRIT due on 12/26/2021 BP CONTROLLED (<130/80) due on 12/26/2021 DEPRESSION SCREENING due on 12/26/2021 ANNUAL PCP TEAM CHRONIC DISEASE VISIT due on 10/19/2022 SERUM CREATININE due on 11/02/2022 DIABETES SCREEN due on 10/13/2024 DTAP,TDAP,TD(4 - Td or Tdap) due on 11/01/2028 INFLUENZA Completed PNEUMOVAX AGE 65 AND OVER WITH 5YR LOOKBACK Completed COVID-19 VACCINE Completed MENINGOCOCCAL CONJUGATE Aged Out Data reviewed Results-Findings Narrative [facility] [address] [place] [address] Test Date: 2021-10-30 Pat Name: LUIS MANUEL DURAN Department: Room: 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 Interpretive Statements 4 puffs albuterol (360 mcg) delivered by MDI via valved holding chamber. HR pre= 48/min, HR post= 52/min. The inspired (FIVC) spirometry maneuver is less than the FVC maneuver Best test reported despite difficult testing session. FEV1 and FVC were repeatable IMPRESSION: Spirometry shows no obstruction.The reduced FVC suggests restriction. Recommend lung volumes if clinically indicated. The increase in FEF 25-75 post-bronchodilator reflects an improvement in the small airway obstruction. Electronically Signed On 10-31-2021 16:01:14 EDT by Bernice Samayoa M.D. 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 HR pre= 48/min, HR post= 52/min. The inspired (FIVC) spirometry maneuver is less than the FVC maneuver Best test reported despite difficult testing session. FEV1 and FVC were repeatable Review Status: Not Reviewed PRE-BRONCH POST-BRONCH Pred LLN ULN Actual %Pred Actual %Chng SPIROMETRY FVC (L) 3.23 2.37 4.09 2.46 76 2.57 4 FEV1 (L) 2.44 1.68 3.13 1.68 69 1.77 5 FEV1/FVC 0.76 0.62 0.88 0.68 90 0.69 0 FEF25 (L/sec) 3.30 3.57 8 FEF50 (L/sec) 3.18 1.05 5.30 1.47 46 1.65 12 FEF75 (L/sec) 0.45 0.16 1.22 0.33 74 0.52 57 RBQ55-81 (L/sec) 1.79 0.68 3.44 1.03 57 1.28 23 PEF L/s (L/sec) 6.59 4.46 8.71 3.84 58 3.76 -2 FIVC (L) 2.28 2.48 8 FIF50 (L/sec) 2.53 2.71 7 PIF (L/sec) 2.53 2.77 9 Time (sec) 8.37 8.76 4 PATRICIA (L) 0.16 0.13 -15 FET PEF (sec) 0.12 0.19 56 A/P ASSESSMENT/PLAN: 1. Dyspepsia - ICD9: 536.8, ICD10: R10.13 (primary diagnosis) - Begin treatment with Prilosec 40 mg every day, increased from 20 mg a day. 2. GERD without esophagitis - ICD9: 530.81, ICD10: K21.9 As above. 3. Cough - ICD9: 786.2, ICD10: R05.9 - Suspect related to above 4. SOB (shortness of breath) - ICD9: 786.05, ICD10: R06.02 - Though breathing test shows possible small airway obstruction. Discussed if stress test ok would consider starting QVAR 40 mcg twice a day. 5. Bursitis of left shoulder - ICD9: 726.10, ICD10: M75.52 - Patient given handout for HEP Signed Prescriptions Disp Refills omeprazole (PRILOSEC) 40 mg capsule 30 capsule 3 Sig: Take 1 capsule by mouth daily before breakfast. 1/2 hr before meal. TASNEEM: No F/u 4 weeks Julio Licea MD documented in this encounterAshtabula [facility] Miscellaneous Notes* Telephone Encounter - Abran Jack MD - 11/02/2021 11:51 AM EDT Ca improved but Cr still high, recommended he f/u with his disability counselor for further evaluation, sent [employer] message [facility] Misc[facility]* Telephone Encounter - Julio Licea MD - 11/01/2021 8:07 PM EDT Noted. * Telephone Encounter - Melida Gonzalez LPN - 11/01/2021 2:26 PM EDT Pt advised of result and Dr Licea's recommendation. Pt does not wish to pursue this at this time. He will contact office if he changes his mind. Pt also wants you to know he spoke with his post anesthesia nurse and she does not feel that there ia a needfor pt to have a stress test. Melida Gonzalez LPN * Telephone Encounter - Julio Licea MD - 11/01/2021 2:06 PM EDT Let patient know breathing test does not show any signs of emphysema or chronic bronchitis. It doesshow a restrictive pattern which is often seen in individuals who are obese which he is not. I can send him to see pulmonary for further w/u if ok with this plan. [facility] History of Present illness Narrative* Destiney Zimmerman RT(R) - 06/17/2021 10:50 AM EDT Radiology Service Progress Note PATIENT NAME: Luis Manuel Duran JR DATE OF SERVICE: June 17, 2021 TIME: 10:48 AM PATIENT IDENTITY VERIFICATION COMPLETED USING TWO (2) IDENTIFIERS: Name and Date of confirmedby patient verbally. FALL SCREENING: Has the patient had 2 falls in the last year or 1 fall with injury or currently using an Ambulatory Assistive Device (Walker, Cane, Wheelchair, Crutches, etc.)? No PATIENT GENDER DATA: Male PATIENT RELEVANT IMPLANT DATA REVIEWED: Not Applicable RADIOLOGY DEPARTMENT: General X-ray: Exam(s) Completed: Chest X-Ray PERIPHERAL IV DATA: Not applicable SIGNED BY: RT Anne(R) June 17, 2021 10:48 AM documented in this encounterAs[facility] History of Past illness Narrative* Problem Noted Date Resolved Date Parathyroid adenoma 03/04/2017 06/03/2020 Overview: parathyroidectomy 05/27/13 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 deficiency 10/15/2013 03/04/2017 Vitamin D deficiency 10/15/2013 03/04/2017 Parathyroid adenoma 10/15/2013 12/24/2014 Esophagitis, unspecified 10/19/2008 014 Unspecified transient cerebral ischemia 01/15/2018 Overview: WITH HEMIPHORESIS Ulcer of esophagus without bleeding 10/15/2013 documented as of this encounter (statuses as of 11/02/2021) [facility] Narrative* Problem Noted Date Resolved Date Parathyroid adenoma 03/04/2017 06/03/2020 Overview: parathyroidectomy 05/27/13 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 deficiency 10/15/2013 03/04/2017 Vitamin D deficiency 10/15/2013 03/04/2017 Parathyroid adenoma 10/15/2013 12/24/2014 Esophagitis, unspecified 10/19/2008 014 Unspecified transient cerebral ischemia 01/15/2018 Overview: WITH HEMIPHORESIS Ulcer of esophagus without bleeding 10/15/2013 documented as of this encounter (statuses as of 11/02/2021) [facility] Narrative* Problem Noted Date Resolved Date Parathyroid adenoma 03/04/2017 06/03/2020 Overview: parathyroidectomy 05/27/13 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 deficiency 10/15/2013 03/04/2017 Vitamin D deficiency 10/15/2013 03/04/2017 Parathyroid adenoma 10/15/2013 12/24/2014 Esophagitis, unspecified 10/19/2008 014 Unspecified transient cerebral ischemia 01/15/2018 Overview: WITH HEMIPHORESIS Ulcer of esophagus without bleeding 10/15/2013 documented as of this encounter (statuses as of 11/19/2021) [facility]arrative* Problem Noted Date Resolved Date Parathyroid adenoma 03/04/2017 06/03/2020 Overview: parathyroidectomy 05/27/13 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 deficiency 10/15/2013 03/04/2017 Vitamin D deficiency 10/15/2013 03/04/2017 Parathyroid adenoma 10/15/2013 12/24/2014 Esophagitis, unspecified 10/19/2008 014 Unspecified transient cerebral ischemia 01/15/2018 Overview: WITH HEMIPHORESIS Ulcer of esophagus without bleeding 10/15/2013 documented as of this encounter (statuses as of 11/28/2021) [facility]arrative* Problem Noted Date Resolved Date Parathyroid adenoma 03/04/2017 06/03/2020 Overview: parathyroidectomy 05/27/13 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 deficiency 10/15/2013 03/04/2017 Vitamin D deficiency 10/15/2013 03/04/2017 Parathyroid adenoma 10/15/2013 12/24/2014 Esophagitis, unspecified 10/19/2008 014 Unspecified transient cerebral ischemia 01/15/2018 Overview: WITH HEMIPHORESIS Ulcer of esophagus without bleeding 10/15/2013 documented as of this encounter (statuses as of 12/08/2021) [facility]ative* Problem Noted Date Resolved Date Parathyroid adenoma 03/04/2017 06/03/2020 Overview: parathyroidectomy 05/27/13 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 deficiency 10/15/2013 03/04/2017 Vitamin D deficiency 10/15/2013 03/04/2017 Parathyroid adenoma 10/15/2013 12/24/2014 Esophagitis, unspecified 10/19/2008 014 Unspecified transient cerebral ischemia 01/15/2018 Overview: WITH HEMIPHORESIS Ulcer of esophagus without bleeding 10/15/2013 documented as of this encounter (statuses as of 12/16/2021) [facility]ative* Problem Noted Date Resolved Date Parathyroid adenoma 03/04/2017 06/03/2020 Overview: parathyroidectomy 05/27/13 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 deficiency 10/15/2013 03/04/2017 Vitamin D deficiency 10/15/2013 03/04/2017 Parathyroid adenoma 10/15/2013 12/24/2014 Esophagitis, unspecified 10/19/2008 014 Unspecified transient cerebral ischemia 01/15/2018 Overview: WITH HEMIPHORESIS Ulcer of esophagus without bleeding 10/15/2013 documented as of this encounter (statuses as of 12/25/2021) [facility]* Problem Noted Date Resolved Date Parathyroid adenoma 03/04/2017 06/03/2020 Overview: parathyroidectomy 05/27/13 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 deficiency 10/15/2013 03/04/2017 Vitamin D deficiency 10/15/2013 03/04/2017 Parathyroid adenoma 10/15/2013 12/24/2014 Esophagitis, unspecified 10/19/2008 014 Unspecified transient cerebral ischemia 01/15/2018 Overview: WITH HEMIPHORESIS Ulcer of esophagus without bleeding 10/15/2013 documented as of this encounter (statuses as of 01/23/2022) [facility]* Problem Noted Date Resolved Date Parathyroid adenoma 03/04/2017 06/03/2020 Overview: parathyroidectomy 05/27/13 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 deficiency 10/15/2013 03/04/2017 Vitamin D deficiency 10/15/2013 03/04/2017 Parathyroid adenoma 10/15/2013 12/24/2014 Esophagitis, unspecified 10/19/2008 014 Unspecified transient cerebral ischemia 01/15/2018 Overview: WITH HEMIPHORESIS Ulcer of esophagus without bleeding 10/15/2013 documented as of this encounter (statuses as of 01/25/2022) [facility]* Problem Noted Date Resolved Date Parathyroid adenoma 03/04/2017 06/03/2020 Overview: parathyroidectomy 05/27/13 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 deficiency 10/15/2013 03/04/2017 Vitamin D deficiency 10/15/2013 03/04/2017 Parathyroid adenoma 10/15/2013 12/24/2014 Esophagitis, unspecified 10/19/2008 014 Unspecified transient cerebral ischemia 01/15/2018 Overview: WITH HEMIPHORESIS Ulcer of esophagus without bleeding 10/15/2013 documented as of this encounter (statuses as of 02/11/2022) [facility]* Problem Noted Date Resolved Date Parathyroid adenoma 03/04/2017 06/03/2020 Overview: parathyroidectomy 05/27/13 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 deficiency 10/15/2013 03/04/2017 Vitamin D deficiency 10/15/2013 03/04/2017 Parathyroid adenoma 10/15/2013 12/24/2014 Esophagitis, unspecified 10/19/2008 014 Unspecified transient cerebral ischemia 01/15/2018 Overview: WITH HEMIPHORESIS Ulcer of esophagus without bleeding 10/15/2013 documented as of this encounter (statuses as of 02/23/2022) [facility]* Problem Noted Date Resolved Date Parathyroid adenoma 03/04/2017 06/03/2020 Overview: parathyroidectomy 05/27/13 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 deficiency 10/15/2013 03/04/2017 Vitamin D deficiency 10/15/2013 03/04/2017 Parathyroid adenoma 10/15/2013 12/24/2014 Esophagitis, unspecified 10/19/2008 014 Unspecified transient cerebral ischemia 01/15/2018 Overview: WITH HEMIPHORESIS Ulcer of esophagus without bleeding 10/15/2013 documented as of this encounter (statuses as of 02/26/2022) [facility]* Problem Noted Date Resolved Date Parathyroid adenoma 03/04/2017 06/03/2020 Overview: parathyroidectomy 05/27/13 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 deficiency 10/15/2013 03/04/2017 Vitamin D deficiency 10/15/2013 03/04/2017 Parathyroid adenoma 10/15/2013 12/24/2014 Esophagitis, unspecified 10/19/2008 014 Unspecified transient cerebral ischemia 01/15/2018 Overview: WITH HEMIPHORESIS Ulcer of esophagus without bleeding 10/15/2013 documented as of this encounter (statuses as of 03/05/2022) [facility]* Problem Noted Date Resolved Date Parathyroid adenoma 03/04/2017 06/03/2020 Overview: parathyroidectomy 05/27/13 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 deficiency 10/15/2013 03/04/2017 Vitamin D deficiency 10/15/2013 03/04/2017 Parathyroid adenoma 10/15/2013 12/24/2014 Esophagitis, unspecified 10/19/2008 014 Unspecified transient cerebral ischemia 01/15/2018 Overview: WITH HEMIPHORESIS Ulcer of esophagus without bleeding 10/15/2013 documented as of this encounter (statuses as of 04/24/2022) [facility]* Problem Noted Date Resolved Date Parathyroid adenoma 03/04/2017 06/03/2020 Overview: parathyroidectomy 05/27/13 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 deficiency 10/15/2013 03/04/2017 Vitamin D deficiency 10/15/2013 03/04/2017 Parathyroid adenoma 10/15/2013 12/24/2014 Esophagitis, unspecified 10/19/2008 014 Unspecified transient cerebral ischemia 01/15/2018 Overview: WITH HEMIPHORESIS Ulcer of esophagus without bleeding 10/15/2013 documented as of this encounter (statuses as of 05/08/2022) [facility]* Problem Noted Date Resolved Date Parathyroid adenoma 03/04/2017 06/03/2020 Overview: parathyroidectomy 05/27/13 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 deficiency 10/15/2013 03/04/2017 Vitamin D deficiency 10/15/2013 03/04/2017 Parathyroid adenoma 10/15/2013 12/24/2014 Esophagitis, unspecified 10/19/2008 014 Unspecified transient cerebral ischemia 01/15/2018 Overview: WITH HEMIPHORESIS Ulcer of esophagus without bleeding 10/15/2013 documented as of this encounter (statuses as of 05/14/2022) [facility]* Problem Noted Date Resolved Date Parathyroid adenoma 03/04/2017 06/03/2020 Overview: parathyroidectomy 05/27/13 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 deficiency 10/15/2013 03/04/2017 Vitamin D deficiency 10/15/2013 03/04/2017 Parathyroid adenoma 10/15/2013 12/24/2014 Esophagitis, unspecified 10/19/2008 014 Unspecified transient cerebral ischemia 01/15/2018 Overview: WITH HEMIPHORESIS Ulcer of esophagus without bleeding 10/15/2013 documented as of this encounter (statuses as of 09/06/2022) [facility]* Problem Noted Date Resolved Date Parathyroid adenoma 03/04/2017 06/03/2020 Overview: parathyroidectomy 05/27/13 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 deficiency 10/15/2013 03/04/2017 Vitamin D deficiency 10/15/2013 03/04/2017 Parathyroid adenoma 10/15/2013 12/24/2014 Esophagitis, unspecified 10/19/2008 014 Unspecified transient cerebral ischemia 01/15/2018 Overview: WITH HEMIPHORESIS Ulcer of esophagus without bleeding 10/15/2013 documented as of this encounter (statuses as of 09/07/2022) [facility]* Problem Noted Date Resolved Date Parathyroid adenoma 03/04/2017 06/03/2020 Overview: parathyroidectomy 05/27/13 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 deficiency 10/15/2013 03/04/2017 Vitamin D deficiency 10/15/2013 03/04/2017 Parathyroid adenoma 10/15/2013 12/24/2014 Esophagitis, unspecified 10/19/2008 014 Unspecified transient cerebral ischemia 01/15/2018 Overview: WITH HEMIPHORESIS Ulcer of esophagus without bleeding 10/15/2013 documented as of this encounter (statuses as of 12/19/2022) [facility]* Problem Noted Date Resolved Date Parathyroid adenoma 03/04/2017 06/03/2020 Overview: parathyroidectomy 05/27/13 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 deficiency 10/15/2013 03/04/2017 Vitamin D deficiency 10/15/2013 03/04/2017 Parathyroid adenoma 10/15/2013 12/24/2014 Esophagitis, unspecified 10/19/2008 014 Unspecified transient cerebral ischemia 01/15/2018 Overview: WITH HEMIPHORESIS Ulcer of esophagus without bleeding 10/15/2013 documented as of this encounter (statuses as of 12/21/2022) [facility]* Problem Noted Date Diagnosed Date Resolved Date Parathyroid adenoma 03/04/2017 06/03/20 20 Overview: parathyroidectomy 05/27/13 Hyperparathyroidism due to v itamin D deficiency 10/15/2013 03/04/2017 Vitamin D deficiency 10/15/2013 017 Parathyroid adenoma 10/15/2013 12/25/19 15 Esophagitis, unspecified 10/19/200801/2014 Unspecified transient cerebral ischemia 01/15/2018 Overview: WITH HEMIPHORESIS Ulcer of esophagus without bleeding 10/15/2013 documented as of this encounter (statuses as of 04/30/2023) [facility]* Problem Noted Date Diagnosed Date Resolved Date Parathyroid adenoma 03/04/2017 06/03/20 Overview: parathyroidectomy 05/27/13 Hyperparathyroidism due to v itamin D deficiency 10/15/2013 03/04/2017 Vitamin D deficiency 10/15/2013 017 Parathyroid adenoma 10/15/2013 12/25/19 15 Esophagitis, unspecified 10/19/200801/2014 Unspecified transient cerebral ischemia 01/15/2018 Overview: WITH HEMIPHORESIS Ulcer of esophagus without bleeding 10/15/2013 documented as of this encounter (statuses as of 05/18/2023) [facility]* Problem Noted Date Diagnosed Date Resolved Date Parathyroid adenoma 03/04/2017 06/03/20 Overview: parathyroidectomy 05/27/13 Hyperparathyroidism due to v itamin D deficiency 10/15/2013 03/04/2017 Vitamin D deficiency 10/15/2013 017 Parathyroid adenoma 10/15/2013 12/25/19 15 Esophagitis, unspecified 10/19/200801/2014 Unspecified transient cerebral ischemia 01/15/2018 Overview: WITH HEMIPHORESIS Ulcer of esophagus without bleeding 10/15/2013 documented as of this encounter (statuses as of 05/20/2023) [facility]* Problem Noted Date Diagnosed Date Resolved Date Parathyroid adenoma 03/04/2017 06/03/20 Overview: parathyroidectomy 05/27/13 Hyperparathyroidism due to v itamin D deficiency 10/15/2013 03/04/2017 Vitamin D deficiency 10/15/2013 017 Parathyroid adenoma 10/15/2013 12/25/19 15 Esophagitis, unspecified 10/19/200801/2014 Unspecified transient cerebral ischemia 01/15/2018 Overview: WITH HEMIPHORESIS Ulcer of esophagus without bleeding 10/15/2013 documented as of this encounter (statuses as of 05/22/2023) [facility]* Problem Noted Date Diagnosed Date Resolved Date Parathyroid adenoma 03/04/2017 06/03/20 Overview: parathyroidectomy 05/27/13 Hyperparathyroidism due to v itamin D deficiency 10/15/2013 03/04/2017 Vitamin D deficiency 10/15/2013 017 Parathyroid adenoma 10/15/2013 12/25/19 15 Esophagitis, unspecified 10/19/200801/2014 Unspecified transient cerebral ischemia 01/15/2018 Overview: WITH HEMIPHORESIS Ulcer of esophagus without bleeding 10/15/2013 documented as of this encounter (statuses as of 05/22/2023) [facility]* Problem Noted Date Diagnosed Date Resolved Date Parathyroid adenoma 03/04/2017 06/03/20 Overview: parathyroidectomy 05/27/13 Hyperparathyroidism due to v itamin D deficiency 10/15/2013 03/04/2017 Vitamin D deficiency 10/15/2013 017 Parathyroid adenoma 10/15/2013 12/25/19 15 Esophagitis, unspecified 10/19/200801/2014 Unspecified transient cerebral ischemia 01/15/2018 Overview: WITH HEMIPHORESIS Ulcer of esophagus without bleeding 10/15/2013 documented as of this encounter (statuses as of 05/26/2023) [facility]* Problem Noted Date Diagnosed Date Resolved Date Parathyroid adenoma 03/04/2017 06/03/20 20 Overview: parathyroidectomy 05/27/13 Hyperparathyroidism due to v itamin D deficiency 10/15/2013 03/04/2017 Vitamin D deficiency 10/15/2013 017 Parathyroid adenoma 10/15/2013 12/25/19 15 Esophagitis, unspecified 10/19/200801/2014 Unspecified transient cerebral ischemia 01/15/2018 Overview: WITH HEMIPHORESIS Ulcer of esophagus without bleeding 10/15/2013 documented as of this encounter (statuses as of 05/30/2023) [facility] Problem Noted Date Diagnosed Date Resolved Date Parathyroid adenoma 03/04/2017 06/03/20 Overview: parathyroidectomy 05/27/13 Hyperparathyroidism due to v itamin D deficiency 10/15/2013 03/04/2017 Vitamin D deficiency 10/15/2013 017 Parathyroid adenoma 10/15/2013 12/25/19 15 Esophagitis, unspecified 10/19/200801/2014 Unspecified transient cerebral ischemia 01/15/2018 Overview: WITH HEMIPHORESIS Ulcer of esophagus without bleeding 10/15/2013 documented as of this encounter (statuses as of 06/25/2023) [facility] Problem Noted Date Diagnosed Date Resolved Date Parathyroid adenoma 03/04/2017 06/03/20 Overview: parathyroidectomy 05/27/13 Hyperparathyroidism due to v itamin D deficiency 10/15/2013 03/04/2017 Vitamin D deficiency 10/15/2013 017 Parathyroid adenoma 10/15/2013 12/25/19 15 Esophagitis, unspecified 10/19/200801/2014 Unspecified transient cerebral ischemia 01/15/2018 Overview: WITH HEMIPHORESIS Ulcer of esophagus without bleeding 10/15/2013 documented as of this encounter (statuses as of 07/09/2023) [facility] Problem Noted Date Diagnosed Date Resolved Date Parathyroid adenoma 03/04/2017 06/03/20 Overview: parathyroidectomy 05/27/13 Hyperparathyroidism due to v itamin D deficiency 10/15/2013 03/04/2017 Vitamin D deficiency 10/15/2013 017 Parathyroid adenoma 10/15/2013 12/25/19 15 Esophagitis, unspecified 10/19/200801/2014 Unspecified transient cerebral ischemia 01/15/2018 Overview: WITH HEMIPHORESIS Ulcer of esophagus without bleeding 10/15/2013 documented as of this encounter (statuses as of 07/13/2023) [facility] Problem Noted Date Diagnosed Date Resolved Date Parathyroid adenoma 03/04/2017 06/03/20 Overview: parathyroidectomy 05/27/13 Hyperparathyroidism due to v itamin D deficiency 10/15/2013 03/04/2017 Vitamin D deficiency 10/15/2013 017 Parathyroid adenoma 10/15/2013 12/25/19 15 Esophagitis, unspecified 10/19/200801/2014 Unspecified transient cerebral ischemia 01/15/2018 Overview: WITH HEMIPHORESIS Ulcer of esophagus without bleeding 10/15/2013 documented as of this encounter (statuses as of 07/22/2023) [facility] Problem Noted Date Diagnosed Date Resolved Date Parathyroid adenoma 03/04/2017 06/03/20 Overview: parathyroidectomy 05/27/13 Hyperparathyroidism due to v itamin D deficiency 10/15/2013 03/04/2017 Parathyroid adenoma 10/15/2013 12/25/19 15 Esophagitis, unspecified 10/19/200801/2014 Unspecified transient cerebral ischemia 01/15/2018 Overview: WITH HEMIPHORESIS Ulcer of esophagus without bleeding 10/15/2013 documented as of this encounter (statuses as of 09/25/2023) [facility]* Problem Noted Date Diagnosed Date Resolved Date Parathyroid adenoma 03/04/2017 06/03/20 Overview: parathyroidectomy 05/27/13 Hyperparathyroidism due to v itamin D deficiency 10/15/2013 03/04/2017 Parathyroid adenoma 10/15/2013 12/25/19 15 Esophagitis, unspecified 10/19/200801/2014 Unspecified transient cerebral ischemia 01/15/2018 Overview: WITH HEMIPHORESIS Ulcer of esophagus without bleeding 10/15/2013 documented as of this encounter (statuses as of 09/30/2023) [facility]* Problem Noted Date Diagnosed Date Resolved Date Parathyroid adenoma 03/04/2017 06/03/20 Overview: parathyroidectomy 05/27/13 Hyperparathyroidism due to v itamin D deficiency 10/15/2013 03/04/2017 Parathyroid adenoma 10/15/2013 12/25/19 15 Esophagitis, unspecified 10/19/200801/2014 Unspecified transient cerebral ischemia 01/15/2018 Overview: WITH HEMIPHORESIS Ulcer of esophagus without bleeding 10/15/2013 documented as of this encounter (statuses as of 10/11/2023) [facility]* Problem Noted Date Diagnosed Date Resolved Date Parathyroid adenoma 03/04/2017 06/03/20 Overview: parathyroidectomy 05/27/13 Hyperparathyroidism due to v itamin D deficiency 10/15/2013 03/04/2017 Parathyroid adenoma 10/15/2013 12/25/19 15 Esophagitis, unspecified 10/19/200801/2014 Unspecified transient cerebral ischemia 01/15/2018 Overview: WITH HEMIPHORESIS Ulcer of esophagus without bleeding 10/15/2013 documented as of this encounter (statuses as of 10/11/2023) [facility]* Problem Noted Date Diagnosed Date Resolved Date Parathyroid adenoma 03/04/2017 06/03/20 Overview: parathyroidectomy 05/27/13 Hyperparathyroidism due to v itamin D deficiency 10/15/2013 03/04/2017 Parathyroid adenoma 10/15/2013 12/25/19 15 Esophagitis, unspecified 10/19/200801/2014 Unspecified transient cerebral ischemia 01/15/2018 Overview: WITH HEMIPHORESIS Ulcer of esophagus without bleeding 10/15/2013 documented as of this encounter (statuses as of 10/11/2023) [place] [id number] History of Past illness Narrative* Problem Noted Date Diagnosed Date Resolved Date Parathyroid adenoma 03/04/2017 06/03/20 Overview: parathyroidectomy 05/27/13 Hyperparathyroidism due to v itamin D deficiency 10/15/2013 03/04/2017 Parathyroid adenoma 10/15/2013 12/25/19 15 Esophagitis, unspecified 10/19/200801/2014 Unspecified transient cerebral ischemia 01/15/2018 Overview: WITH HEMIPHORESIS Ulcer of esophagus without bleeding 10/15/2013 documented as of this encounter (statuses as of 10/17/2023) [facility]* Problem Noted Date Diagnosed Date Resolved Date Parathyroid adenoma 03/04/2017 06/03/20 Overview: parathyroidectomy 05/27/13 Hyperparathyroidism due to v itamin D deficiency 10/15/2013 03/04/2017 Parathyroid adenoma 10/15/2013 12/25/19 15 Esophagitis, unspecified 10/19/200801/2014 Unspecified transient cerebral ischemia 01/15/2018 Overview: WITH HEMIPHORESIS Ulcer of esophagus without bleeding 10/15/2013 documented as of this encounter (statuses as of 11/21/2023) [facility]* Problem Noted Date Diagnosed Date Resolved Date Parathyroid adenoma 03/04/2017 06/03/20 Overview: parathyroidectomy 05/27/13 Hyperparathyroidism due to v itamin D deficiency 10/15/2013 03/04/2017 Parathyroid adenoma 10/15/2013 12/25/19 15 Esophagitis, unspecified 10/19/200801/2014 Unspecified transient cerebral ischemia 01/15/2018 Overview: WITH HEMIPHORESIS Ulcer of esophagus without bleeding 10/15/2013 documented as of this encounter (statuses as of 11/21/2023) [facility]07-24-2017 History of Past illness Narrative* Problem Noted Date Diagnosed Date Resolved Date Parathyroid adenoma 03/04/2017 06/03/20 20 Overview: parathyroidectomy 05/27/13 Hyperparathyroidism due to v itamin D deficiency 10/15/2013 03/04/2017 Parathyroid adenoma 10/15/2013 12/25/19 15 Esophagitis, unspecified 10/19/200801/2014 Unspecified transient cerebral ischemia 01/15/2018 Overview: WITH HEMIPHORESIS Ulcer of esophagus without bleeding 10/15/2013 documented as of this encounter (statuses as of 11/30/2023) [facility] Appointment Date:10/24/2023 11:00:00 AM Scheduled Provider: Location:[facility] Appointment Type:CV [facility] Evaluation + Plan note Future Appointments Appointment Date:07/03/2024 10:45:00 AM Scheduled Provider: Location:[facility] Appointment Type:CV Diagnostic Tests Pending * Troponin I High Sensitivity 05/08/24 [facility] Evaluation + Plan note Future Appointments Appointment Date:06/05/2024 02:15:00 PM Scheduled Provider: Location:[facility] Appointment Type:CV [facility] Heart [facility] V[facility] Evaluation + Plan note Future Appointments Appointment Date:09/29/2024 09:40:00 AM Scheduled Provider:HAY TAVAREZ MD Location:UROLOGY Appointment Type:URO [facility] Evaluation + Plan note Future Appointments Appointment Date:09/29/2024 09:40:00 AM Scheduled Provider:HAY TAVAREZ MD Location:UROLOGY Appointment Type:URO OV Appointment Date:09/29/2024 10:45:00 AM Scheduled Provider:OMARI ANDINO Location:[facility] Appointment Type:CV [facility] Evaluation + Plan note Future Appointments Appointment Date:11/17/2024 10:30:00 AM Scheduled Provider: Location:Heart Lab Appointment Type:CV Procedure - Heart Lab/Hybrid OR Future Scheduled Tests Radiology* CT Angiography TAVR Planning 11/02/24 [facility] evaluation + Plan note Future Appointments Appointment Date:11/26/2024 01:00:00 PM Scheduled Provider: Location:[facility] Appointment Type:CT Angiography TAVR Planning Appointment Date:12/25/2024 11:15:00 AM Scheduled Provider:OMARI ANDINO Location:[facility] Appointment Type:CV OV Future Scheduled Tests Laboratory* Basic Metabolic Panel 11/18/24 * Complete Blood Count 11/18/24 * N-Terminal proBNP 11/18/24 Radiology* CT Angiography TAVR Planning 11/26/24 [facility] evaluation + Plan note Future Appointments Appointment Date:12/25/2024 11:15:00 AM Scheduled Provider:OMARI ANDINO Location:[facility] Appointment Type:CV OV Future Scheduled Tests Laboratory* Basic Metabolic Panel 11/18/24 * Complete Blood Count 11/18/24 * N-Terminal proBNP 11/18/24 [facility] evaluation + Plan note Future Appointments Appointment Date:12/29/2024 09:00:00 AM Scheduled Provider: Location:Hybrid OR Appointment Type:CV Procedure - Heart Lab/Hybrid OR [facility] evaluation + Plan note Future Appointments Appointment Date:01/26/2025 01:00:00 PM Scheduled Provider: Location:[facility] Appointment Type:Echo - Echocardiogram Adult Future Scheduled Tests Laboratory* Basic Metabolic Panel 01/26/25 * Complete Blood Count 01/26/25 [facility] evaluation + Plan note Future Appointments Appointment Date:01/26/2025 01:00:00 PM Scheduled Provider: Location:[facility] Appointment Type:Echo - Echocardiogram Adult Appointment Date:02/11/2025 11:00:00 AM Scheduled Provider:MITCH VEGA Location:[facility] Appointment Type:CV OV [facility] Evaluation + Plan note Future Appointments Appointment Date:02/11/2025 11:00:00 AM Scheduled Provider:MITCH VEGA Location:[facility] Appointment Type:CV OV [facility] Evaluation + Plan note Future Appointments Appointment Date:04/06/2025 09:00:00 AM Scheduled Provider:OMARI ANDINO Location:[facility] Appointment Type:CV OV Appointment Date:01/13/2026 08:00:00 AM Scheduled Provider: Location:[facility] Appointment Type:Echo - Echocardiogram Adult Appointment Date:01/20/2026 09:30:00 AM Scheduled Provider:MACHO DERAS Location:[facility] Appointment Type:CV OV [facility] Evaluation + Plan note Future Appointments Appointment Date:03/16/2025 04:00:00 PM Scheduled Provider:BENITA ANDINO Location:[facility] Appointment Type:CV OV Appointment Date:01/13/2026 08:00:00 AM Scheduled Provider: Location:[facility] Appointment Type:Echo - Echocardiogram Adult Appointment Date:01/20/2026 09:30:00 AM Scheduled Provider:MACHO DERAS Location:[facility] Appointment Type:CV OV [facility] evaluation note* Diagnosis Dyspepsia- Primary Dyspepsia and other specified disorders of function of stomach GERD without esophagitis Esophageal reflux Cough SOB (shortness of breath) Shortness of breath Bursitis of left shoulder Disorders of bursae and tendons in shoulder region, unspecified documented in this encounter [facility] noteNo assessment information availableWAshtabula [facility] Work Phone: [email or web address] note* Diagnosis Mild aortic stenosis Aortic valve disorders documented in this encounter [facility] note* Diagnosis Chronic diastolic congestive heart failure (HCC)- Primary Chronic diastolic heart failure CKD (chronic kidney disease) stage 4, GFR 15-29 ml/min (HCC) Chronic kidney disease, Stage IV (severe) URI, acute Acute upper respiratory infections of unspecified site Living will on file Advance directive discussed with patient Other specified counseling [facility] Diagnosis Onset Date Resolution Status Anemia acute Chronic in-center hemodialysis status acute [facility] Work Phone: Evaluation note* Diagnosis Neck mass- Primary Swelling, mass, or lump in head and neck [facility] Essential hypertension, benign- Primary Mixed hyperlipidemia Anemia of chronic disease Anemia of other chronic disease GERD without esophagitis Esophageal reflux ASHD (arteriosclerotic heart disease) Coronary atherosclerosis of unspecified type of vessel, [place] or graft Chronic diastolic congestive heart failure (HCC) Chronic diastolic heart failure Mild aortic stenosis Aortic valve disorders CKD (chronic kidney disease) stage 4, GFR 15-29 ml/min (HCC) Chronic kidney disease, Stage IV (severe) Primary hyperparathyroidism (HCC) Primary hyperparathyroidism Benign essential tremor Essential and other specified forms of tremor Medication management Encounter for long-term (current) use of other medications [facility] Diagnosis Medicare annual wellness visit, subsequent- Primary Routine general medical examination at a health care facility Essential hypertension, benign Mixed hyperlipidemia GERD without esophagitis Esophageal reflux Anemia of chronic disease Anemia of other chronic disease ASHD (arteriosclerotic heart disease) Coronary atherosclerosis of unspecified type of vessel, [place] or graft Chronic diastolic congestive heart failure (HCC) Chronic diastolic heart failure Mild aortic stenosis Aortic valve disorders Primary hyperparathyroidism (HCC) Primary hyperparathyroidism CKD (chronic kidney disease) stage 4, GFR 15-29 ml/min (HCC) Chronic kidney disease, Stage IV (severe) BPH with obstruction/lower urinary tract symptoms Hypertrophy of prostate with urinary obstruction and other lower urinary tract symptoms (LUTS) Advance directive discussed with patient Other specified counseling Medication management Encounter for long-term (current) use of other medications [facility] Diagnosis Burning with urination- Primary Dysuria [facility]* Diagnosis Secondary renal hyperparathyroidism (HCC)- Primary Secondary hyperparathyroidism (of renal origin) Secondary renal hyperparathyroidism (HCC) Secondary hyperparathyroidism (of renal origin) [facility]* Diagnosis Secondary renal hyperparathyroidism (HCC)- Primary Secondary hyperparathyroidism (of renal origin) Secondary renal hyperparathyroidism (HCC) Secondary hyperparathyroidism (of renal origin) [facility]* Diagnosis Chronic diastolic congestive heart failure (HCC) Chronic diastolic heart failure Essential hypertension, benign Mixed hyperlipidemia Coronary artery disease involving [place] coronary artery of [place] heart without angina pectoris Mild aortic stenosis Aortic valve disorders GERD without esophagitis Esophageal reflux BPH with obstruction/lower urinary tract symptoms Hypertrophy of prostate with urinary obstruction and other lower urinary tract symptoms (LUTS) CKD (chronic kidney disease) stage 4, GFR 15-29 ml/min (HCC) Chronic kidney disease, Stage IV (severe) Anemia of chronic disease Anemia of other chronic disease Secondary renal hyperparathyroidism (HCC) Secondary hyperparathyroidism (of renal origin) [facility] Diagnosis Pre-op evaluation- Primary Preoperative examination, unspecified Secondary renal hyperparathyroidism (HCC) Secondary hyperparathyroidism (of renal origin) [facility]* Diagnosis Hyperparathyroid (HCC)- Primary [facility]* Diagnosis Elevated alkaline phosphatase level Other nonspecific abnormal serum enzyme levels [facility] Diagnosis Elevated alkaline phosphatase level- Primary Other nonspecific abnormal serum enzyme levels [facility] Diagnosis Elevated alkaline phosphatase level Other nonspecific abnormal serum enzyme levels [facility] Diagnosis Elevated alkaline phosphatase level Other nonspecific abnormal serum enzyme levels [facility]* Diagnosis Coronary artery disease involving [place] coronary artery of [place] heart without angina pectoris- Primary Bacterial pneumonia Bacterial pneumonia, unspecified Essential hypertension, benign ESRD (end stage renal disease) on dialysis (HCC) End stage renal disease [facility]* Diagnosis Hyperparathyroidism (HCC)- Primary Hyperparathyroidism, unspecified [facility]* Diagnosis Chronic diastolic congestive heart failure (HCC) Chronic diastolic heart failure Essential hypertension, benign Mixed hyperlipidemia Coronary artery disease involving [place] coronary artery of [place] heart without angina pectoris Mild aortic stenosis Aortic valve disorders GERD without esophagitis Esophageal reflux BPH with obstruction/lower urinary tract symptoms Hypertrophy of prostate with urinary obstruction and other lower urinary tract symptoms (LUTS) CKD (chronic kidney disease) stage 4, GFR 15-29 ml/min (HCC) Chronic kidney disease, Stage IV (severe) Anemia of chronic disease Anemia of other chronic disease Diarrhea, unspecified type- Primary Nausea Nausea alone Flatulence/gas pain/belching Flatulence, eructation, and gas pain [facility]* Diagnosis Chronic diastolic congestive heart failure (HCC) Chronic diastolic heart failure Essential hypertension, benign Mixed hyperlipidemia Coronary artery disease involving [place] coronary artery of [place] heart without angina pectoris Mild aortic stenosis Aortic valve disorders GERD without esophagitis Esophageal reflux BPH with obstruction/lower urinary tract symptoms Hypertrophy of prostate with urinary obstruction and other lower urinary tract symptoms (LUTS) CKD (chronic kidney disease) stage 4, GFR 15-29 ml/min (HCC) Chronic kidney disease, Stage IV (severe) Anemia of chronic disease Anemia of other chronic disease Diarrhea, unspecified type Nausea Nausea alone Flatulence/gas pain/belching Flatulence, eructation, and gas pain [facility] Diagnosis Chronic diastolic congestive heart failure (HCC) Chronic diastolic heart failure Essential hypertension, benign Mixed hyperlipidemia Coronary artery disease involving [place] coronary artery of [place] heart without angina pectoris Mild aortic stenosis Aortic valve disorders GERD without esophagitis Esophageal reflux BPH with obstruction/lower urinary tract symptoms Hypertrophy of prostate with urinary obstruction and other lower urinary tract symptoms (LUTS) CKD (chronic kidney disease) stage 4, GFR 15-29 ml/min ([facility]) Chronic kidney disease, Stage IV (severe) Anemia of chronic disease Anemia of other chronic disease 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 [facility] this [facility]* Diagnosis Chronic diastolic congestive heart failure (HCC) Chronic diastolic heart failure Essential hypertension, benign Mixed hyperlipidemia Coronary artery disease involving [place] coronary artery of [place] heart without angina pectoris Mild aortic stenosis Aortic valve disorders GERD without esophagitis Esophageal reflux BPH with obstruction/lower urinary tract symptoms Hypertrophy of prostate with urinary obstruction and other lower urinary tract symptoms (LUTS) CKD (chronic kidney disease) stage 4, GFR 15-29 ml/min ([facility]) Chronic kidney disease, Stage IV (severe) Anemia of chronic disease Anemia of other chronic disease ESRD (end stage renal disease) on dialysis ([facility])- Primary End stage renal disease [facility] this [facility]* Diagnosis Chronic diastolic congestive heart failure (HCC) Chronic diastolic heart failure Essential hypertension, benign Mixed hyperlipidemia Coronary artery disease involving [place] coronary artery of [place] heart without angina pectoris Mild aortic stenosis Aortic valve disorders GERD without esophagitis Esophageal reflux BPH with obstruction/lower urinary tract symptoms Hypertrophy of prostate with urinary obstruction and other lower urinary tract symptoms (LUTS) CKD (chronic kidney disease) stage 4, GFR 15-29 ml/min ([facility]) Chronic kidney disease, Stage IV (severe) Anemia of chronic disease Anemia of other chronic disease Renal cyst Unspecified congenital cystic kidney disease [facility] Diagnosis Cough SOB (shortness of breath) Shortness of breath Chronic diastolic congestive heart failure (HCC) Chronic diastolic heart failure Essential hypertension, benign Mixed hyperlipidemia Coronary artery disease involving [place] coronary artery of [place] heart without angina pectoris Mild aortic stenosis Aortic valve disorders GERD without esophagitis Esophageal reflux BPH with obstruction/lower urinary tract symptoms Hypertrophy of prostate with urinary obstruction and other lower urinary tract symptoms (LUTS) CKD (chronic kidney disease) stage 4, GFR 15-29 ml/min ([facility]) Chronic kidney disease, Stage IV (severe) Anemia of chronic disease Anemia of other chronic disease [facility]* Diagnosis Chronic diastolic congestive heart failure (HCC) Chronic diastolic heart failure Essential hypertension, benign Mixed hyperlipidemia Coronary artery disease involving [place] coronary artery of [place] heart without angina pectoris Mild aortic stenosis Aortic valve disorders GERD without esophagitis Esophageal reflux BPH with obstruction/lower urinary tract symptoms Hypertrophy of prostate with urinary obstruction and other lower urinary tract symptoms (LUTS) CKD (chronic kidney disease) stage 4, GFR 15-29 ml/min ([facility]) Chronic kidney disease, Stage IV (severe) Anemia of chronic disease Anemia of other chronic disease ESRD (end stage renal disease) on dialysis ([facility])- Primary End stage renal disease Gastroesophageal reflux disease with esophagitis without hemorrhage Hiatal hernia Diaphragmatic hernia without mention of obstruction or gangrene Coronary artery disease involving [place] coronary artery of [place] heart without angina pectoris ASHD (arteriosclerotic heart disease) Coronary atherosclerosis of unspecified type of vessel, [place] or graft H/O heart artery stent Postsurgical percutaneous transluminal coronary angioplasty status Kidney stone Calculus of kidney [facility] this [facility] Diagnosis Chronic diastolic congestive heart failure (HCC) Chronic diastolic heart failure Essential hypertension, benign Mixed hyperlipidemia Coronary artery disease involving [place] coronary artery of [place] heart without angina pectoris Mild aortic stenosis Aortic valve disorders GERD without esophagitis Esophageal reflux BPH with obstruction/lower urinary tract symptoms Hypertrophy of prostate with urinary obstruction and other lower urinary tract symptoms (LUTS) CKD (chronic kidney disease) stage 4, GFR 15-29 ml/min ([facility]) Chronic kidney disease, Stage IV (severe) Anemia of chronic disease Anemia of other chronic disease Gastroesophageal reflux disease, unspecified whether esophagitis present- Primary Hiatal hernia Diaphragmatic hernia without mention of obstruction or gangrene [facility] Diagnosis Chronic diastolic congestive heart failure (HCC) Chronic diastolic heart failure Essential hypertension, benign Mixed hyperlipidemia Coronary artery disease involving [place] coronary artery of [place] heart without angina pectoris Mild aortic stenosis Aortic valve disorders GERD without esophagitis Esophageal reflux BPH with obstruction/lower urinary tract symptoms Hypertrophy of prostate with urinary obstruction and other lower urinary tract symptoms (LUTS) CKD (chronic kidney disease) stage 4, GFR 15-29 ml/min ([facility]) Chronic kidney disease, Stage IV (severe) Anemia of chronic disease Anemia of other chronic disease Encounter for screening for malignant neoplasm of colon- Primary Special screening for malignant neoplasms, colon Hiatal hernia Diaphragmatic hernia without mention of obstruction or gangrene Gastroesophageal reflux disease, unspecified whether esophagitis present documented [facility] this [facility]* Diagnosis Chronic diastolic congestive heart failure (HCC) Chronic diastolic heart failure Essential hypertension, benign Mixed hyperlipidemia Coronary artery disease involving [place] coronary artery of [place] heart without angina pectoris Mild aortic stenosis Aortic valve disorders GERD without esophagitis Esophageal reflux BPH with obstruction/lower urinary tract symptoms Hypertrophy of prostate with urinary obstruction and other lower urinary tract symptoms (LUTS) CKD (chronic kidney disease) stage 4, GFR 15-29 ml/min ([facility]) Chronic kidney disease, Stage IV (severe) Anemia of chronic disease Anemia of other chronic disease Gastroesophageal reflux disease, unspecified whether esophagitis present- Primary documented [facility] this [facility]* Diagnosis Chronic diastolic congestive heart failure (HCC) Chronic diastolic heart failure Essential hypertension, benign Mixed hyperlipidemia Coronary artery disease involving [place] coronary artery of [place] heart without angina pectoris Mild aortic stenosis Aortic valve disorders GERD without esophagitis Esophageal reflux BPH with obstruction/lower urinary tract symptoms Hypertrophy of prostate with urinary obstruction and other lower urinary tract symptoms (LUTS) CKD (chronic kidney disease) stage 4, GFR 15-29 ml/min ([facility]) Chronic kidney disease, Stage IV (severe) Anemia of chronic disease Anemia of other chronic disease Wheezing- Primary Cough productive of clear sputum Cough SOB (shortness of breath) Shortness of breath Wheezing Cough productive of clear sputum Cough SOB (shortness of breath) Shortness of breath documented [facility] this [facility]* Diagnosis Chronic diastolic congestive heart failure (HCC) Chronic diastolic heart failure Essential hypertension, benign Mixed hyperlipidemia Coronary artery disease involving [place] coronary artery of [place] heart without angina pectoris Mild aortic stenosis Aortic valve disorders GERD without esophagitis Esophageal reflux BPH with obstruction/lower urinary tract symptoms Hypertrophy of prostate with urinary obstruction and other lower urinary tract symptoms (LUTS) CKD (chronic kidney disease) stage 4, GFR 15-29 ml/min ([facility]) Chronic kidney disease, Stage IV (severe) Anemia of chronic disease Anemia of other chronic disease Bacterial sinusitis- Primary Unspecified sinusitis (chronic) documented [facility] Diagnosis Chronic diastolic congestive heart failure (HCC) Chronic diastolic heart failure Essential hypertension, benign Mixed hyperlipidemia Coronary artery disease involving [place] coronary artery of [place] heart without angina pectoris Mild aortic stenosis Aortic valve disorders GERD without esophagitis Esophageal reflux BPH with obstruction/lower urinary tract symptoms Hypertrophy of prostate with urinary obstruction and other lower urinary tract symptoms (LUTS) CKD (chronic kidney disease) stage 4, GFR 15-29 ml/min ([facility]) Chronic kidney disease, Stage IV (severe) Anemia of chronic disease Anemia of other chronic disease Wheezing Cough productive of clear sputum Cough SOB (shortness of breath) Shortness of breath documented in this [facility]* Diagnosis Chronic diastolic congestive heart failure (HCC) Chronic diastolic heart failure Essential hypertension, benign Mixed hyperlipidemia Coronary artery disease involving [place] coronary artery of [place] heart without angina pectoris Mild aortic stenosis Aortic valve disorders GERD without esophagitis Esophageal reflux BPH with obstruction/lower urinary tract symptoms Hypertrophy of prostate with urinary obstruction and other lower urinary tract symptoms (LUTS) CKD (chronic kidney disease) stage 4, GFR 15-29 ml/min ([facility]) Chronic kidney disease, Stage IV (severe) Anemia of chronic disease Anemia of other chronic disease Cough productive of clear sputum- Primary Cough SOB (shortness of breath) Shortness of breath Wheezing Wellness examination Screening for prostate cancer Special screening for malignant neoplasm of prostate Screening for diabetes mellitus Encounter for lipid screening for cardiovascular disease Screening for lipoid disorders Medication management Encounter for long-term (current) use of other medications ESRD (end stage renal disease) on dialysis (HCC) End stage renal disease [facility] Chronic diastolic congestive heart failure (HCC) Chronic diastolic heart failure Essential hypertension, benign Mixed hyperlipidemia Coronary artery disease involving white [place] coronary artery of [place] heart without angina pectoris Mild aortic stenosis Aortic valve disorders GERD without esophagitis Esophageal reflux BPH with obstruction/lower urinary tract symptoms Hypertrophy of prostate with urinary obstruction and other lower urinary tract symptoms (LUTS) CKD (chronic kidney disease) stage 4, GFR 15-29 ml/min (HCC) Chronic kidney disease, Stage IV (severe) Anemia of chronic disease Anemia of other chronic disease Elevated PSA- Primary Elevated prostate specific antigen (PSA) Chronic diastolic congestive heart failure (HCC) Chronic diastolic heart failure Hyperparathyroidism (HCC) Hyperparathyroidism, unspecified Encounter for screening examination for other mental health and behavioral disorders Screening for depression Abnormal lung sounds Abnormal chest sounds SOB (shortness of breath) Shortness of breath Wheezing Cough productive of clear sputum Cough ESRD (end stage renal disease) on dialysis (HCC) End stage renal disease Gastroesophageal reflux disease with esophagitis without hemorrhage Benign essential tremor Essential and other specified forms of tremor Anemia of chronic disease Anemia of other chronic disease Mixed hyperlipidemia Medicare annual wellness visit, subsequent Routine general medical examination at a health care facility Essential hypertension, benign Coronary artery disease involving [place] coronary artery of [place] heart without angina pectoris Screening for diabetes mellitus Abnormal lung sounds Abnormal chest sounds SOB (shortness of breath) Shortness of breath [facility] Diagnosis Chronic diastolic congestive heart failure (HCC) Chronic diastolic heart failure Essential hypertension, benign Mixed hyperlipidemia Coronary artery disease involving [place] coronary artery of [place] heart without angina pectoris Mild aortic stenosis Aortic valve disorders GERD without esophagitis Esophageal reflux BPH with obstruction/lower urinary tract symptoms Hypertrophy of prostate with urinary obstruction and other lower urinary tract symptoms (LUTS) CKD (chronic kidney disease) stage 4, GFR 15-29 ml/min ([facility]) Chronic kidney disease, Stage IV (severe) Anemia of chronic disease Anemia of other chronic disease Abnormal lung sounds Abnormal chest sounds SOB (shortness of breath) Shortness of breath [facility]* Diagnosis Chronic diastolic congestive heart failure (HCC) Chronic diastolic heart failure Essential hypertension, benign Mixed hyperlipidemia Coronary artery disease involving [place] coronary artery of [place] heart without angina pectoris Mild aortic stenosis Aortic valve disorders GERD without esophagitis Esophageal reflux BPH with obstruction/lower urinary tract symptoms Hypertrophy of prostate with urinary obstruction and other lower urinary tract symptoms (LUTS) CKD (chronic kidney disease) stage 4, GFR 15-29 ml/min ([facility]) Chronic kidney disease, Stage IV (severe) Anemia of chronic disease Anemia of other chronic disease SOB (shortness of breath)- Primary Shortness of breath Wheezing Nausea Nausea alone Gastritis without bleeding, unspecified chronicity, unspecified gastritis type SOB (shortness of breath) Shortness of breath Wheezing [facility]* Diagnosis Chronic diastolic congestive heart failure (HCC) Chronic diastolic heart failure Essential hypertension, benign Mixed hyperlipidemia Coronary artery disease involving [place] coronary artery of [place] heart without angina pectoris Mild aortic stenosis Aortic valve disorders GERD without esophagitis Esophageal reflux BPH with obstruction/lower urinary tract symptoms Hypertrophy of prostate with urinary obstruction and other lower urinary tract symptoms (LUTS) CKD (chronic kidney disease) stage 4, GFR 15-29 ml/min (HCC) Chronic kidney disease, Stage IV (severe) Anemia of chronic disease Anemia of other chronic disease Community acquired pneumonia, unspecified laterality- Primary [facility] Diagnosis Chronic diastolic congestive heart failure (HCC) Chronic diastolic heart failure Essential hypertension, benign Mixed hyperlipidemia Coronary artery disease involving [place] coronary artery of [place] heart without angina pectoris Mild aortic stenosis Aortic valve disorders GERD without esophagitis Esophageal reflux BPH with obstruction/lower urinary tract symptoms Hypertrophy of prostate with urinary obstruction and other lower urinary tract symptoms (LUTS) CKD (chronic kidney disease) stage 4, GFR 15-29 ml/min ([facility]) Chronic kidney disease, Stage IV (severe) Anemia of chronic disease Anemia of other chronic disease SOB (shortness of breath) Shortness of breath Wheezing [facility] Diagnosis Chronic diastolic congestive heart failure (HCC) Chronic diastolic heart failure Essential hypertension, benign Mixed hyperlipidemia Coronary artery disease involving [place] coronary artery of [place] heart without angina pectoris Mild aortic stenosis Aortic valve disorders GERD without esophagitis Esophageal reflux BPH with obstruction/lower urinary tract symptoms Hypertrophy of prostate with urinary obstruction and other lower urinary tract symptoms (LUTS) CKD (chronic kidney disease) stage 4, GFR 15-29 ml/min ([facility]) Chronic kidney disease, Stage IV (severe) Anemia of chronic disease Anemia of other chronic disease Bacterial pneumonia- Primary Bacterial pneumonia, unspecified Cough productive of clear sputum Cough [facility] Diagnosis Chronic diastolic congestive heart failure (HCC) Chronic diastolic heart failure Essential hypertension, benign Mixed hyperlipidemia Coronary artery disease involving [place] coronary artery of [place] heart without angina pectoris Mild aortic stenosis Aortic valve disorders GERD without esophagitis Esophageal reflux BPH with obstruction/lower urinary tract symptoms Hypertrophy of prostate with urinary obstruction and other lower urinary tract symptoms (LUTS) CKD (chronic kidney disease) stage 4, GFR 15-29 ml/min ([facility]) Chronic kidney disease, Stage IV (severe) Anemia of chronic disease Anemia of other chronic disease Bacterial pneumonia Bacterial pneumonia, unspecified [facility] Diagnosis Chronic diastolic congestive heart failure (HCC) Chronic diastolic heart failure Essential hypertension, benign Mixed hyperlipidemia Coronary artery disease involving [place] coronary artery of [place] heart without angina pectoris Mild aortic stenosis Aortic valve disorders GERD without esophagitis Esophageal reflux BPH with obstruction/lower urinary tract symptoms Hypertrophy of prostate with urinary obstruction and other lower urinary tract symptoms (LUTS) CKD (chronic kidney disease) stage 4, GFR 15-29 ml/min (HCC) Chronic kidney disease, Stage IV (severe) Anemia of chronic disease Anemia of other chronic disease ESRD (end stage renal disease) on dialysis (HCC) End stage renal disease [facility] Diagnosis Chronic diastolic congestive heart failure (HCC) Chronic diastolic heart failure Essential hypertension, benign Mixed hyperlipidemia Coronary artery disease involving [place] coronary artery of [place] heart without angina pectoris Mild aortic stenosis Aortic valve disorders GERD without esophagitis Esophageal reflux BPH with obstruction/lower urinary tract symptoms Hypertrophy of prostate with urinary obstruction and other lower urinary tract symptoms (LUTS) CKD (chronic kidney disease) stage 4, GFR 15-29 ml/min (HCC) Chronic kidney disease, Stage IV (severe) Anemia of chronic disease Anemia of other chronic disease Shortness of breath- Primary Wheezing Mild persistent asthma without complication (HCC)- Primary Unspecified asthma documented in this encounter [facility] note* Diagnosis Chronic diastolic congestive heart failure (HCC) Chronic diastolic heart failure Essential hypertension, benign Mixed hyperlipidemia Coronary artery disease involving [place] coronary artery of [place] heart without angina pectoris Mild aortic stenosis Aortic valve disorders GERD without esophagitis Esophageal reflux BPH with obstruction/lower urinary tract symptoms Hypertrophy of prostate with urinary obstruction and other lower urinary tract symptoms (LUTS) CKD (chronic kidney disease) stage 4, GFR 15-29 ml/min (HCC) Chronic kidney disease, Stage IV (severe) Anemia of chronic disease Anemia of other chronic disease Mild persistent asthma without complication (HCC)- Primary Unspecified asthma documented in this encounter [facility] course Narrative No data available for this section [facility] Hospital Discharge instructions No data available for this section [facility] Progress note No data available for this section [facility] Reason for referral (narrative)* Diagnostic Procedure Only (Routine) - Authorized Specialty Diagnoses / Procedures Referred By [facility] Referred To Contact MOLECULAR & FUNCTIONAL IMAGING Diagnoses Elevated alkaline phosphatase level Procedures NM BONE WHOLE BODY BONE &/JOINT [place] [address] [place] [address] [facility] [address] [place] [address] Referral ID Status Reason Start Date Expiration Date Visits Requested Visits Authorized [id number] Authorized Auto-Generat ed Referral 09/27/2023 10/26/[address] [facility] for referral (narrative)* Diagnostic Procedure Only (Routine) - Closed Specialty Diagnoses / Procedures [facility] Referred To Contact MOLECULAR & FUNCTIONAL IMAGING Diagnoses Elevated alkaline phosphatase level Procedures NM BONE WHOLE BODY BONE &/JOINT IMAGING WHOLE BODY Julio Licea MD [address] [place] [id number] [facility] [address] [place] [address] Referral ID Status Reason Start Date Expiration Date V isits Requested Visits Authorized [id number] Closed Auto-Generate d Referral 09/27/2023 10/26/[address] [facility] for referral (narrative)* Diagnostic Procedure Only (Urgent) - Authorized Specialty Diagnoses / Procedures Referred By [facility] Referred To Contact US IMAGING Diagnoses Renal cyst Procedures US KIDNEY/BLADDER US RETROPERITONEAL REAL TIME W/IMAGE COMPLETE Deanne Shen, GLACIOLOGIST.MAMMOGRAPHER [address] [place] [address] [facility] [place] [address] Referral ID Status Reason Start Date Expiration Date Visits Requested Visits Authorized [id number] Authorized Auto-Generat ed Referral 04/24/2024 05/24/[address] [facility] for referral (narrative)* Diagnostic Procedure Only (Routine) - New Request Specialty Diagnoses / Procedures Referred By Lizett[facility] t Referred To Contact US IMAGING Diagnoses ESRD (end stage renal disease) on dialysis (HCC) Procedures US KIDNEY/BLADDER US RETROPERITONEAL REAL TIME W/IMAGE COMPLETE Deanne Shen APRN.CNP [address] [place] [address] [place] [address] Referral ID Status Reason Start Date Expiration Date Visits Requested Visits Authorized [id number] New Request Auto-Generat ed Referral 05/01/2024 05/30/[address] [facility] for referral (narrative)* Diagnostic Procedure Only (Urgent) - Closed Specialty Diagnoses / Procedures Referred By Jose Miguel t Referred To Contact US IMAGING Diagnoses Renal cyst Procedures US KIDNEY/BLADDER US RETROPERITONEAL REAL TIME W/IMAGE COMPLETE Deanne Shen APRN.CNP [address] [place] [address] [place] [address] Referral ID Status Reason Start Date Expiration Date V isits Requested Visits Authorized [id number] Closed Auto-Generate d Referral 04/24/2024 05/24/[address] [facility] for referral (narrative)* Outpatient Procedure (Routine) - Authorized Specialty Diagnoses / Procedures [facility] Diagnoses Hiatal hernia Gastroesophageal reflux disease, unspecified whether esophagitis present Procedures EGD DIAGNOSTIC ESOPHAGOGASTRODUODENOSCOPY TRANSORAL DIAGNOSTIC Jaylene Callejas MD [address] [place] [address] [facility] [address] [place] [address] Referral ID Status Reason Start Date Expiration Date Visits Requested Visits Authorized [id number] Authorized Auto-Generat ed Referral 05/25/[address] [facility] for referral (narrative)* Outpatient Procedure (Routine) - Closed Specialty Diagnoses / Procedures [facility] Diagnoses Hiatal hernia Gastroesophageal reflux disease, unspecified whether esophagitis present Procedures EGD DIAGNOSTIC ESOPHAGOGASTRODUODENOSCOPY TRANSORAL DIAGNOSTIC Jaylene Callejas MD [address] [place] [address] [facility] [address] [place] [address] Referral ID Status Reason Start Date Expiration Date V isits Requested Visits Authorized [id number] Closed Auto-Generate d Referral 06/11/2024 05/25/[address] [facility] for referral (narrative)No reason for referral [facility] N[facility]* Diagnostic Procedure Only (Routine) - Closed Specialty Diagnoses / Procedures [facility] Referred To Contact MOLECULAR & FUNCTIONAL IMAGING Diagnoses Elevated alkaline phosphatase level Procedures NM BONE WHOLE BODY BONE &/JOINT IMAGING WHOLE BODY Julio Licea MD [address] [place] [address] [facility] [address] [place] [address] Referral ID Status Reason Start Date Expiration Date V isits Requested Visits Authorized [id number] Closed Auto-Generate d Referral 09/27/2023 10/26/[address] [facility] for visit Narrative* Diagnostic Procedure Only (Routine) - Closed Specialty Diagnoses / Procedures [facility] Referred To Contact Radiology / [facility] Diagnoses Cough [R05.9] SOB (shortness of breath) [R06.02] Procedures XR CHEST Jana Cintron MD [address] [place] [address] [facility] [address] [place] [address] Referral ID Status Reason Start Date Expiration Date Visits Re quested Visits Authorized [id number] Closed 06/17/2021 08/11/2021 1 1 [facility] Outpatient Procedure (Routine) - Closed Specialty Diagnoses / Procedures Referred By Jose Miguel mullins Referred To [facility] Diagnoses Hiatal hernia Gastroesophageal reflux disease, unspecified whether esophagitis present Procedures EGD DIAGNOSTIC ESOPHAGOGASTRODUODENOSCOPY TRANSORAL DIAGNOSTIC Jaylene Callejas MD [address] [place] [address] [facility] [address] [place] [address] Referral ID Status Reason Start Date Expiration Date V isits Requested Visits Authorized [id number] Closed Auto-Generate d Referral 06/11/2024 05/25/2025 1 1 [facility] Reason for Referral Status Reason Specialty Diagnoses / Procedures Referred By Contact Referred To Contact New Request Diagnoses Thyroid nodule Procedures US THYROID US NECK Arthur Avendaño MD [address] [facility] [address] [place] [address] Specialty Diagnoses / Procedures Referred By Jose Miguel t Referred To Contact Diagnoses Secondary renal hyperparathyroidism (HCC) Procedures REFER TO PACC - PRE ANESTHESIA CONSULTATION CLINIC OFFICE/OUTPATIENT NEW HIGH MDM 60-74 MINUTES Yaya Sun MD [address] [place] [address] Referral ID Status Reason Start Date Expiration Date Visits Requested Visits Authorized [id number] Pending Review PCP Requested Referral 3 05/20/2024 1 1 Specialty Diagnoses / Procedures Referred By Contact [facility] Diagnoses Secondary renal hyperparathyroidism (HCC) Procedures ECG COMPLETE ECG ROUTINE ECG W/LEAST 12 LDS W/I&R Yaya Sun MD [address] [address] [facility] [address] [place] [id number] Referral ID Status Reason Start Date Expiration Date Visits Requested Visits Authorized [id number] Pending Review Auto-Generat ed Referral 05/20/2024 1 1 Specialty Diagnoses / Procedures Referred By Cont[facility] t Referred To Contact CT IMAGING Diagnoses Diarrhea, unspecified type Nausea Flatulence/gas pain/belching Procedures CT ABD/PEL WO IVCON CT ABD & PELVIS W/O CONTRAST Deanne Shen APRN.MAMMOGRAPHER [address] [place] [address] [place] [address] Referral ID Status Reason Start Date Expiration Date Visits Requested Visits Authorized [id number] Authorized Auto-Generat ed Referral 04/10/2024 05/10/2025 1 1 Specialty Diagnoses / Procedures Referred By Cont[facility] Referred To Contact General Surgery Diagnoses Hiatal hernia Procedures CONSULT TO GENERAL SURGERY OFFICE/OUTPATIENT [facility] 60 MINUTES Deanne Shen APRN.MAMMOGRAPHER [address] [place] [address] Referral ID Status Reason Start Date Expiration Date Visits Requested Visits Authorized [id number] Authorized PCP Requested Referral 05/18/2024 05/18/2025 1 1 Assessments Diagnosis Thyroid nodule Nontoxic uninodular goiter Summary Purpose Family History No Family History Records Found Relationship Condition Age at Onset Recorded Date/T ne mother Malignant neoplasm of colon Unknown father Malignant neoplasm of colon Unknown Myocardial infarction Unknown brother Malignant neoplasm Unknown Relationship Condition Age at Onset Recorded Date/T ne mother Malignant neoplasm of colon Unknown Arthritis Unknown father Malignant neoplasm of colon Unknown Myocardial infarction Unknown brother Malignant neoplasm Unknown Advance Directives No Advanced Directives Records FoundDocuments on File Type Date Recorded 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 Advance Directive(s) 09/21/2014 12:57 PM Advance Directive(s) 10/26/2008 8:44 PM Advance Directive(s) 09/27/2006 12:00 AM Advance Directive Response Recorded Date/ Time Living Will Yes January 13, 2021 1 :19pm Power of Solder Deposit Operator Yes January 13, 2021 1:19pm Advance Directive Response Recorded Date/ Time Living Will Yes January 22, 2022 12:30pm Power of Solder Deposit Operator Yes January 22 12:30pm Advance Directive Response Recorded Date/ Time Name of Medical Power of Solder Deposit Operator February 01, 2022 8:08am Living Will Yes February 01, 2022 8:08am Power of Solder Deposit Operator Yes February 01 8:08am Name of Medical Power of Solder Deposit Operator SPOUSE January 22, 2022 12:30pm Advance Directive Response Recorded Date/ Time Name of Medical Power of Solder Deposit Operator February 01, 2022 8:08am Name of Medical Power of Solder Deposit Operator SPOUSE January 22, 2022 12:30pm Living Will No February 11, 2022 2 :40pm Power of Solder Deposit Operator No February 11, 2022 2:40pm Documents on File Type Date Recorded 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 Advance Directive(s) 09/21/2014 12:57 PM Advance Directive(s) 10/26/2008 8:44 PM Advance Directive(s) 09/27/2006 Documents on File Type Date Recorded 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 Advance Directive(s) 09/21/2014 12:57 PM Advance Directive(s) 10/26/2008 8:44 PM Advance Directive(s) 09/27/2006 Chief Complaint and Reason for Visit Chief Complaint DYSPNEA Chief Complaint DYSPNEA PREOP FISTULA CREATION/DISCUSS EGD Reason for Visit Anemia Chronic in-center hemodialysis status Chief Complaint DYSPNEA PREOP FISTULA CREATION/DISCUSS EGD RT FOREARM AV FISTULA CREATION RT FOREARM AV FISTULA CREATION Reason for Visit Anemia Chronic in-center hemodialysis status Chief Complaint DYSPNEA PREOP FISTULA CREATION/DISCUSS EGD RT FOREARM AV FISTULA CREATION RT FOREARM AV FISTULA CREATION swollen node in his neck Reason for Visit Anemia Chronic in-center hemodialysis status Chief Complaint Admit Date 8 WK FU December 17, 2024 8:43am Vomiting/Nausea February 09, 2025 8:46a m Reason for Visit Admit Date Cough December 17, 2024 8:43am Postnasal drip December 17, 2024 8:43am Abdominal pain February 09, 2025 8:46a m Nausea and vomiting February 09, 2025 8:46a m Additional Source Comments Reason for Visit (unrecogniz ed section and content) Status Reason Specialty Diagnoses / Procedures Referred By Contact Referred To Contact New Request Diagnoses Thyroid nodule Procedures US THYROID US NECK Arthur Avendaño MD [address] [place] [address] Reason Comments Results Reason Comments Recheck patient is here for follow up on cough/dyspepsia Specialty Diagnoses / Procedures Referred By Contac t Referred To Contact Family Practice / FAMILY MEDICINE Diagnoses f/u cough/dyspepsia Procedures 4C EST Self Julio Licea MD [address] [place] [address] Referral ID Status Reason Start Date Expiration Date V isits Requested Visits Authorized [id number] Closed Financial Clearance Required - OON Payor Patient Cleared INN/SMCP Payor Auth Obtained 11/17/2021 08/11/2022 1 1 Reason Comments results of stress test Reason Comments Transition Of Care Reason Comments ER F/U patient was since [facility]; Cough patient has develope d a cough over the past 5 days; no other sx. Specialty Diagnoses / Procedures Referred By Jose Miguel t Referred To Contact Family Practice / FAMILY MEDICINE Diagnoses f/u SOB, dyspepsia, and shoulder pain Procedures 4C EST Self Julio Licea MD [address] [place] [address] Referral ID Status Reason Start Date Expiration Date Visits Re quested Visits Authorized [id number] Closed 12/15/2021 08/11/2022 1 1 Reason Comments New Patient Reason Comments Mass left side of neck Reason Comments F/U 6 months Specialty Diagnoses / Procedures [facility] Referred To Contact Family Practice / FAMILY MEDICINE Diagnoses medicare 6 months Procedures OFFICE/OUTPATIENT NEW MODERATE MDM 45-59 MINUTES 4C MD Anuja Herring Jeffrey A, MD [address] [place] [address] Referral ID Status Reason Start Date Expiration Date Visits Re quested Visits Authorized [id number] Closed 01/26/2022 08/11/2022 1 1 Reason Comments Patient Update Reason Onset Date Comments Refill Request 04/24/2022 Reason Onset Date Comments Refill Request 05/08/2022 Reason Onset Date Comments urgent refill 05/14/2022 Reason Comments Medicare Wellness Exam Reason Onset Date Comments Refill Request 12/19/2022 Reason Onset Date Comments Refill Request 04/30/2023 Reason Comments UTI Dysuria, burning wit h urination x5 days Reason Comments Results Urine Cx Reason Comments antibiotic rx was sent to wrong pharmacy Reason Comments preop pacc / OR MM 07/11/23 Re - op para thyroidectomy Reason Comments Hyperparathyroidism Reason Comments Anesthesia Consult Reason Comments Consult pre-op laryngoscopy to parathyroid surgery on 07/11/23 Specialty Diagnoses / Procedures Referred By Contact Referred To Contact Ent - Otolaryngology Diagnoses Secondary renal hyperparathyroidism (HCC) Procedures CONSULT TO ENT OFFICE/OUTPATIENT [facility] MDM 60-74 MINUTES Yaya Sun MD [address] [facility] [place] [address] Referral ID Status Reason Start Date Expiration Date Visits Requested Visits Authorized [id number] Pending Review PCP Requested Referral 3 06/03/2024 1 1 Reason Comments Results Reason Comments Radiology NM Reason Onset Date Comments Refill Request 10/17/2023 Reason Onset Date Comments Refill Request 11/19/2023 Reason Comments Hospital Discharge Reason Comments Ext / Cardiology Reason Onset Date Comments Refill Request 01/15/2024 Reason Onset Date Comments Refill Request 02/26/2024 Reason Comments Gas X 6 weeks Vomiting On and off X [address] Reason Comments [address] Specialty Diagnoses / Procedures Referred By Contac t Referred To Contact CT IMAGING Diagnoses Diarrhea, unspecified type Nausea Flatulence/gas pain/belching Procedures CT ABD/PEL WO IVCON CT ABD & PELVIS W/O CONTRAST Deanne Shen, [place].MAMMOGRAPHER [address] [place] [id number] [address] [facility] Referral ID Status Reason Start Date Expiration Date V isits Requested Visits Authorized [id number] Closed Auto-Generate d Referral 04/10/2024 05/10/2025 1 1 Specialty Diagnoses / Procedures Referred By Contac t Referred To Contact CT IMAGING Diagnoses Diarrhea, unspecified type Nausea Flatulence/gas pain/belching Procedures CT ABD/PEL WO IVCON CT ABD & PELVIS W/O CONTRAST Deanne Shen, [place].MAMMOGRAPHER [facility] [place] [address] Ct Imaging [facility] Reason Comments Radiology US Specialty Diagnoses / Procedures Referred By Contac t Referred To Contact US IMAGING Diagnoses Renal cyst Procedures US KIDNEY/BLADDER US RETROPERITONEAL REAL TIME W/IMAGE COMPLETE Deanne Shen, GLACIOLOGIST.MAMMOGRAPHER [facility] [place] [address] [place] [address] Referral ID Status Reason Start Date Expiration Date V isits Requested Visits Authorized [id number] Closed Auto-Generate d Referral 04/24/2024 05/24/2025 1 1 Reason Comments Future Appointment Reason Onset Date Comments Transition Of Care 05/14/2024 Reason Comments Transition Of Care Reason Comments New Patient hernia Specialty Diagnoses / Procedures Referred By Contac t Referred To Contact General Surgery Diagnoses Hiatal hernia Procedures CONSULT TO GENERAL SURGERY OFFICE/OUTPATIENT NEW HIGH MDM 60 MINUTES Deanne Shen, GLACIOLOGIST.MAMMOGRAPHER [address] [place] [address] Referral ID Status Reason Start Date Expiration Date V isits Requested Visits Authorized [id number] Closed PCP Requested Referral 05/18/2024 05/18/2025 1 1 Reason Comments Follow Up Review EGD results. Reason Comments Cough nasal drainage Reason Comments Medication Problem Augmentin Reason Comments Cough Reason Comments ER Discharge Summary Reason Comments Outside [id number] Ordered Reason Comments Results Outside lab Reason Onset Date Comments Refill Request 08/11/2024 Reason Comments ER Discharge Summary H&P Reason Comments Hospital F/U [facility] Reason Comments Hospital F/U Reason Comments Outside Urology Reason Comments Outside Pulmonary Reason Comments Consult Outside Vascular Reason Onset Date Comments Refill Request 10/20/2024 Reason Comments Outside Cardiology Reason Comments Procedure Outside Cardiac Reason Comments Cough Nausea Reason Comments Patient Update Appointment Reason Comments Follow Up Reason Comments Radiology US Specialty Diagnoses / Procedures Referred By Contac t Referred To Contact US IMAGING Diagnoses ESRD (end stage renal disease) on dialysis (HCC) Procedures US KIDNEY/BLADDER US RETROPERITONEAL REAL TIME W/IMAGE COMPLETE Deanne Shen, GLACIOLOGIST.MAMMOGRAPHER [address] [place] [address] Phone: tel: fax: [place] [address] Referral ID Status Reason Start Date Expiration Date V isits Requested Visits Authorized [id number] Closed Auto-Generate d Referral 05/01/2024 05/30/2025 1 1 Reason Comments Spirometry Specialty Diagnoses / Procedures Referred By Contac t Referred [facility] Diagnoses Shortness of breath Wheezing Procedures SPIROMETRY WITH DILATOR IF OBSTRUCTED SPIROMETRY WITH DILATOR IF OBSTRUCTED BRNCDILAT RSPSE SPMTRY PRE&POST-BRNCDILAT ADMN Bernice Aranda MD [address] [address] Phone: tel: fax: Respiratory [address] [address] Referral ID Status Reason Start Date Expiration Date V isits Requested Visits Authorized [id number] Closed Auto-Generate d Referral 03/16/2025 03/31/2026 1 1 Specialty Diagnoses / Procedures Referred By Contac t Referred To Contact [facility] Diagnoses Uncomplicated asthma, unspecified asthma severity, unspecified whether persistent (HCC) Procedures NITRIC OXIDE, EXHALED NITRIC OXIDE GAS DETERMINATION Bernice Samayoa MD [address] [place] [address] Phone: tel: fax: Respiratory [address] [address] Referral ID Status Reason Start Date Expiration Date V isits Requested Visits Authorized [id number] Closed Auto-Generate d Referral 03/16/2025 04/15/2026 1 1 (unrecognized sect ion and content) No Status Records FoundNo Status Records FoundNo Status Records FoundNo Status Records FoundNo Status Records FoundNo Status Records FoundNo Status Records FoundNo Status Records FoundNo Status Records Found INFORMATION SOURCE (unrecogn ized section and content) DATE CREATED AUTHOR 07/21/2018 [facility] DATE CREATED AUTHOR AUTHOR'S ORGANIZ ATION 04/15/2021 [facility] DATE CREATED AUTHOR AUTHOR'S ORGANIZ ATION 06/26/2023 [facility] DATE CREATED AUTHOR AUTHOR'S ORGANIZ ATION 07/16/2023 [facility] DATE CREATED AUTHOR AUTHOR'S ORGANIZ ATION 03/04/2024 [facility] DATE CREATED AUTHOR AUTHOR'S ORGANIZ ATION 02/26/2025 [facility] DATE CREATED AUTHOR AUTHOR'S ORGANIZ ATION 03/15/2025 [facility] DATE CREATED AUTHOR AUTHOR'S ORGANIZ ATION 03/16/2025 [facility] DATE CREATED AUTHOR AUTHOR'S SVETLANA RON 03/17/2025 [facility] Source Comments (unrecognize d section and content) In the event this informatio n is protected by the Federal Confidentiality of Alcohol and Drug Abuse Patient Records regulations: The Federal rules restrict any use of the information to criminally investigate or prosecute any alcohol or drug abuse patient.[facility] the event this information is protected by the Federal Confidentiality of Alcohol and Drug Abuse Patient Records regulations: The Federal rules restrict any use of the information to criminally investigate or prosecute any alcohol or drug abuse patient.[facility] CenterIn the event this information is protected by the Federal Confidentiality of Alcohol and Drug Abuse Patient Records regulations: The Federal rules restrict any use of the information to criminally investigate or prosecute any alcohol or drug abuse patient.[facility] CenterIn the event this information is protected by the Federal Confidentiality of Alcohol and Drug Abuse Patient Records regulations: The Federal rules restrict any use of the information to criminally investigate or prosecute any alcohol or drug abuse patient.[facility] CenterIn the event this information is protected by the Federal Confidentiality of Alcohol and Drug Abuse Patient Records regulations: The Federal rules restrict any use of the information to criminally investigate or prosecute any alcohol or drug abuse patient.[facility] CenterIn the event this information is protected by the Federal Confidentiality of Alcohol and Drug Abuse Patient Records regulations: The Federal rules restrict any use of the information to criminally investigate or prosecute any alcohol or drug abuse patient.[facility] CenterIn the event this information is protected by the Federal Confidentiality of Alcohol and Drug Abuse Patient Records regulations: The Federal rules restrict any use of the information to criminally investigate or prosecute any alcohol or drug abuse patient.[facility] CenterIn the event this information is protected by the Federal Confidentiality of Alcohol and Drug Abuse Patient Records regulations: The Federal rules restrict any use of the information to criminally investigate or prosecute any alcohol or drug abuse patient.[facility] CenterIn the event this information is protected by the Federal Confidentiality of Alcohol and Drug Abuse Patient Records regulations: The Federal rules restrict any use of the information to criminally investigate or prosecute any alcohol or drug abuse patient.[facility] CenterIn the event this information is protected by the Federal Confidentiality of Alcohol and Drug Abuse Patient Records regulations: The Federal rules restrict any use of the information to criminally investigate or prosecute any alcohol or drug abuse patient.[facility] CenterIn the event this information is protected by the Federal Confidentiality of Alcohol and Drug Abuse Patient Records regulations: The Federal rules restrict any use of the information to criminally investigate or prosecute any alcohol or drug abuse patient.[facility] CenterIn the event this information is protected by the Federal Confidentiality of Alcohol and Drug Abuse Patient Records regulations: The Federal rules restrict any use of the information to criminally investigate or prosecute any alcohol or drug abuse patient.[facility] CenterIn the event this information is protected by the Federal Confidentiality of Alcohol and Drug Abuse Patient Records regulations: The Federal rules restrict any use of the information to criminally investigate or prosecute any alcohol or drug abuse patient.[facility] CenterIn the event this information is protected by the Federal Confidentiality of Alcohol and Drug Abuse Patient Records regulations: The Federal rules restrict any use of the information to criminally investigate or prosecute any alcohol or drug abuse patient.[facility] CenterIn the event this information is protected by the Federal Confidentiality of Alcohol and Drug Abuse Patient Records regulations: The Federal rules restrict any use of the information to criminally investigate or prosecute any alcohol or drug abuse patient.[facility] CenterIn the event this information is protected by the Federal Confidentiality of Alcohol and Drug Abuse Patient Records regulations: The Federal rules restrict any use of the information to criminally investigate or prosecute any alcohol or drug abuse patient.[facility] CenterIn the event this information is protected by the Federal Confidentiality of Alcohol and Drug Abuse Patient Records regulations: The Federal rules restrict any use of the information to criminally investigate or prosecute any alcohol or drug abuse patient.[facility] CenterIn the event this information is protected by the Federal Confidentiality of Alcohol and Drug Abuse Patient Records regulations: The Federal rules restrict any use of the information to criminally investigate or prosecute any alcohol or drug abuse patient.[facility] CenterIn the event this information is protected by the Federal Confidentiality of Alcohol and Drug Abuse Patient Records regulations: The Federal rules restrict any use of the information to criminally investigate or prosecute any alcohol or drug abuse patient.[facility]In the event this information is protected by the Federal Confidentiality of Alcohol and Drug Abuse Patient Records regulations: The Federal rules restrict any use of the information to criminally investigate or prosecute any alcohol or drug abuse patient.[facility] CenterIn the event this information is protected by the Federal Confidentiality of Alcohol and Drug Abuse Patient Records regulations: The Federal rules restrict any use of the information to criminally investigate or prosecute any alcohol or drug abuse patient.[facility] CenterIn the event this information is protected by the Federal Confidentiality of Alcohol and Drug Abuse Patient Records regulations: The Federal rules restrict any use of the information to criminally investigate or prosecute any alcohol or drug abuse patient.[facility] CenterIn the event this information is protected by the Federal Confidentiality of Alcohol and Drug Abuse Patient Records regulations: The Federal rules restrict any use of the information to criminally investigate or prosecute any alcohol or drug abuse patient.[facility] CenterIn the event this information is protected by the Federal Confidentiality of Alcohol and Drug Abuse Patient Records regulations: The Federal rules restrict any use of the information to criminally investigate or prosecute any alcohol or drug abuse patient.[facility] CenterIn the event this information is protected by the Federal Confidentiality of Alcohol and Drug Abuse Patient Records regulations: The Federal rules restrict any use of the information to criminally investigate or prosecute any alcohol or drug abuse patient.[facility] CenterIn the event this information is protected by the Federal Confidentiality of Alcohol and Drug Abuse Patient Records regulations: The Federal rules restrict any use of the information to criminally investigate or prosecute any alcohol or drug abuse patient.[facility] CenterIn the event this information is protected by the Federal Confidentiality of Alcohol and Drug Abuse Patient Records regulations: The Federal rules restrict any use of the information to criminally investigate or prosecute any alcohol or drug abuse patient.[facility] CenterIn the event this information is protected by the Federal Confidentiality of Alcohol and Drug Abuse Patient Records regulations: The Federal rules restrict any use of the information to criminally investigate or prosecute any alcohol or drug abuse patient.[facility] CenterIn the event this information is protected by the Federal Confidentiality of Alcohol and Drug Abuse Patient Records regulations: The Federal rules restrict any use of the information to criminally investigate or prosecute any alcohol or drug abuse patient.[facility] CenterIn the event this information is protected by the Federal Confidentiality of Alcohol and Drug Abuse Patient Records regulations: The Federal rules restrict any use of the information to criminally investigate or prosecute any alcohol or drug abuse patient.[facility] CenterIn the event this information is protected by the Federal Confidentiality of Alcohol and Drug Abuse Patient Records regulations: The Federal rules restrict any use of the information to criminally investigate or prosecute any alcohol or drug abuse patient.[facility] CenterIn the event this information is protected by the Federal Confidentiality of Alcohol and Drug Abuse Patient Records regulations: The Federal rules restrict any use of the information to criminally investigate or prosecute any alcohol or drug abuse patient.[facility] CenterIn the event this information is protected by the Federal Confidentiality of Alcohol and Drug Abuse Patient Records regulations: The Federal rules restrict any use of the information to criminally investigate or prosecute any alcohol or drug abuse patient.[facility] CenterIn the event this information is protected by the Federal Confidentiality of Alcohol and Drug Abuse Patient Records regulations: The Federal rules restrict any use of the information to criminally investigate or prosecute any alcohol or drug abuse patient.[facility] CenterIn the event this information is protected by the Federal Confidentiality of Alcohol and Drug Abuse Patient Records regulations: The Federal rules restrict any use of the information to criminally investigate or prosecute any alcohol or drug abuse patient.[facility] CenterIn the event this information is protected by the Federal Confidentiality of Alcohol and Drug Abuse Patient Records regulations: The Federal rules restrict any use of the information to criminally investigate or prosecute any alcohol or drug abuse patient.[facility] CenterIn the event this information is protected by the Federal Confidentiality of Alcohol and Drug Abuse Patient Records regulations: The Federal rules restrict any use of the information to criminally investigate or prosecute any alcohol or drug abuse patient.[facility] CenterIn the event this information is protected by the Federal Confidentiality of Alcohol and Drug Abuse Patient Records regulations: The Federal rules restrict any use of the information to criminally investigate or prosecute any alcohol or drug abuse patient.[facility] CenterIn the event this information is protected by the Federal Confidentiality of Alcohol and Drug Abuse Patient Records regulations: The Federal rules restrict any use of the information to criminally investigate or prosecute any alcohol or drug abuse patient.[facility] CenterIn the event this information is protected by the Federal Confidentiality of Alcohol and Drug Abuse Patient Records regulations: The Federal rules restrict any use of the information to criminally investigate or prosecute any alcohol or drug abuse patient.[facility] CenterIn the event this information is protected by the Federal Confidentiality of Alcohol and Drug Abuse Patient Records regulations: The Federal rules restrict any use of the information to criminally investigate or prosecute any alcohol or drug abuse patient.[facility] CenterIn the event this information is protected by the Federal Confidentiality of Alcohol and Drug Abuse Patient Records regulations: The Federal rules restrict any use of the information to criminally investigate or prosecute any alcohol or drug abuse patient.[facility] CenterIn the event this information is protected by the Federal Confidentiality of Alcohol and Drug Abuse Patient Records regulations: The Federal rules restrict any use of the information to criminally investigate or prosecute any alcohol or drug abuse patient.[facility] CenterIn the event this information is protected by the Federal Confidentiality of Alcohol and Drug Abuse Patient Records regulations: The Federal rules restrict any use of the information to criminally investigate or prosecute any alcohol or drug abuse patient.[facility] CenterIn the event this information is protected by the Federal Confidentiality of Alcohol and Drug Abuse Patient Records regulations: The Federal rules restrict any use of the information to criminally investigate or prosecute any alcohol or drug abuse patient.[facility] CenterIn the event this information is protected by the Federal Confidentiality of Alcohol and Drug Abuse Patient Records regulations: The Federal rules restrict any use of the information to criminally investigate or prosecute any alcohol or drug abuse patient.[facility] CenterIn the event this information is protected by the Federal Confidentiality of Alcohol and Drug Abuse Patient Records regulations: The Federal rules restrict any use of the information to criminally investigate or prosecute any alcohol or drug abuse patient.[facility] CenterIn the event this information is protected by the Federal Confidentiality of Alcohol and Drug Abuse Patient Records regulations: The Federal rules restrict any use of the information to criminally investigate or prosecute any alcohol or drug abuse patient.[facility] CenterIn the event this information is protected by the Federal Confidentiality of Alcohol and Drug Abuse Patient Records regulations: The Federal rules restrict any use of the information to criminally investigate or prosecute any alcohol or drug abuse patient.[facility] CenterIn the event this information is protected by the Federal Confidentiality of Alcohol and Drug Abuse Patient Records regulations: The Federal rules restrict any use of the information to criminally investigate or prosecute any alcohol or drug abuse patient.[facility] CenterIn the event this information is protected by the Federal Confidentiality of Alcohol and Drug Abuse Patient Records regulations: The Federal rules restrict any use of the information to criminally investigate or prosecute any alcohol or drug abuse patient.[facility] CenterIn the event this information is protected by the Federal Confidentiality of Alcohol and Drug Abuse Patient Records regulations: The Federal rules restrict any use of the information to criminally investigate or prosecute any alcohol or drug abuse patient.[facility] CenterIn the event this information is protected by the Federal Confidentiality of Alcohol and Drug Abuse Patient Records regulations: The Federal rules restrict any use of the information to criminally investigate or prosecute any alcohol or drug abuse patient.[facility] CenterIn the event this information is protected by the Federal Confidentiality of Alcohol and Drug Abuse Patient Records regulations: The Federal rules restrict any use of the information to criminally investigate or prosecute any alcohol or drug abuse patient.[facility] CenterIn the event this information is protected by the Federal Confidentiality of Alcohol and Drug Abuse Patient Records regulations: The Federal rules restrict any use of the information to criminally investigate or prosecute any alcohol or drug abuse patient.[facility] CenterIn the event this information is protected by the Federal Confidentiality of Alcohol and Drug Abuse Patient Records regulations: The Federal rules restrict any use of the information to criminally investigate or prosecute any alcohol or drug abuse patient.[facility] CenterIn the event this information is protected by the Federal Confidentiality of Alcohol and Drug Abuse Patient Records regulations: The Federal rules restrict any use of the information to criminally investigate or prosecute any alcohol or drug abuse patient.[facility] CenterIn the event this information is protected by the Federal Confidentiality of Alcohol and Drug Abuse Patient Records regulations: The Federal rules restrict any use of the information to criminally investigate or prosecute any alcohol or drug abuse patient.[facility] CenterIn the event this information is protected by the Federal Confidentiality of Alcohol and Drug Abuse Patient Records regulations: The Federal rules restrict any use of the information to criminally investigate or prosecute any alcohol or drug abuse patient.[facility] CenterIn the event this information is protected by the Federal Confidentiality of Alcohol and Drug Abuse Patient Records regulations: The Federal rules restrict any use of the information to criminally investigate or prosecute any alcohol or drug abuse patient.[facility] CenterIn the event this information is protected by the Federal Confidentiality of Alcohol and Drug Abuse Patient Records regulations: The Federal rules restrict any use of the information to criminally investigate or prosecute any alcohol or drug abuse patient.[facility] CenterIn the event this information is protected by the Federal Confidentiality of Alcohol and Drug Abuse Patient Records regulations: The Federal rules restrict any use of the information to criminally investigate or prosecute any alcohol or drug abuse patient.[facility] CenterIn the event this information is protected by the Federal Confidentiality of Alcohol and Drug Abuse Patient Records regulations: The Federal rules restrict any use of the information to criminally investigate or prosecute any alcohol or drug abuse patient.[facility] CenterIn the event this information is protected by the Federal Confidentiality of Alcohol and Drug Abuse Patient Records regulations: The Federal rules restrict any use of the information to criminally investigate or prosecute any alcohol or drug abuse patient.[facility] CenterIn the event this information is protected by the Federal Confidentiality of Alcohol and Drug Abuse Patient Records regulations: The Federal rules restrict any use of the information to criminally investigate or prosecute any alcohol or drug abuse patient.[facility] CenterIn the event this information is protected by the Federal Confidentiality of Alcohol and Drug Abuse Patient Records regulations: The Federal rules restrict any use of the information to criminally investigate or prosecute any alcohol or drug abuse patient.[facility] CenterIn the event this information is protected by the Federal Confidentiality of Alcohol and Drug Abuse Patient Records regulations: The Federal rules restrict any use of the information to criminally investigate or prosecute any alcohol or drug abuse patient.[facility] CenterIn the event this information is protected by the Federal Confidentiality of Alcohol and Drug Abuse Patient Records regulations: The Federal rules restrict any use of the information to criminally investigate or prosecute any alcohol or drug abuse patient.[facility] CenterIn the event this information is protected by the Federal Confidentiality of Alcohol and Drug Abuse Patient Records regulations: The Federal rules restrict any use of the information to criminally investigate or prosecute any alcohol or drug abuse patient.[facility] ClinicIn the event this information is protected by the Federal Confidentiality of Alcohol and Drug Abuse Patient Records regulations: The Federal rules restrict any use of the information to criminally investigate or prosecute any alcohol or drug abuse patient.[facility] CenterIn the event this information is protected by the Federal Confidentiality of Alcohol and Drug Abuse Patient Records regulations: The Federal rules restrict any use of the information to criminally investigate or prosecute any alcohol or drug abuse patient.[facility] CenterIn the event this information is protected by the Federal Confidentiality of Alcohol and Drug Abuse Patient Records regulations: The Federal rules restrict any use of the information to criminally investigate or prosecute any alcohol or drug abuse patient.[facility] CenterIn the event this information is protected by the Federal Confidentiality of Alcohol and Drug Abuse Patient Records regulations: The Federal rules restrict any use of the information to criminally investigate or prosecute any alcohol or drug abuse patient.[facility] CenterIn the event this information is protected by the Federal Confidentiality of Alcohol and Drug Abuse Patient Records regulations: The Federal rules restrict any use of the information to criminally investigate or prosecute any alcohol or drug abuse patient.[facility] CenterIn the event this information is protected by the Federal Confidentiality of Alcohol and Drug Abuse Patient Records regulations: The Federal rules restrict any use of the information to criminally investigate or prosecute any alcohol or drug abuse patient.[facility] CenterIn the event this information is protected by the Federal Confidentiality of Alcohol and Drug Abuse Patient Records regulations: The Federal rules restrict any use of the information to criminally investigate or prosecute any alcohol or drug abuse patient.[facility] CenterIn the event this information is protected by the Federal Confidentiality of Alcohol and Drug Abuse Patient Records regulations: The Federal rules restrict any use of the information to criminally investigate or prosecute any alcohol or drug abuse patient.[facility] CenterIn the event this information is protected by the Federal Confidentiality of Alcohol and Drug Abuse Patient Records regulations: The Federal rules restrict any use of the information to criminally investigate or prosecute any alcohol or drug abuse patient.[facility] CenterIn the event this information is protected by the Federal Confidentiality of Alcohol and Drug Abuse Patient Records regulations: The Federal rules restrict any use of the information to criminally investigate or prosecute any alcohol or drug abuse patient.[facility] CenterIn the event this information is protected by the Federal Confidentiality of Alcohol and Drug Abuse Patient Records regulations: The Federal rules restrict any use of the information to criminally investigate or prosecute any alcohol or drug abuse patient.[facility] CenterIn the event this information is protected by the Federal Confidentiality of Alcohol and Drug Abuse Patient Records regulations: The Federal rules restrict any use of the information to criminally investigate or prosecute any alcohol or drug abuse patient.[facility] CenterIn the event this information is protected by the Federal Confidentiality of Alcohol and Drug Abuse Patient Records regulations: The Federal rules restrict any use of the information to criminally investigate or prosecute any alcohol or drug abuse patient.[facility] CenterIn the event this information is protected by the Federal Confidentiality of Alcohol and Drug Abuse Patient Records regulations: The Federal rules restrict any use of the information to criminally investigate or prosecute any alcohol or drug abuse patient.[facility] CenterIn the event this information is protected by the Federal Confidentiality of Alcohol and Drug Abuse Patient Records regulations: The Federal rules restrict any use of the information to criminally investigate or prosecute any alcohol or drug abuse patient.[facility] CenterIn the event this information is protected by the Federal Confidentiality of Alcohol and Drug Abuse Patient Records regulations: The Federal rules restrict any use of the information to criminally investigate or prosecute any alcohol or drug abuse patient.[facility] CenterIn the event this information is protected by the Federal Confidentiality of Alcohol and Drug Abuse Patient Records regulations: The Federal rules restrict any use of the information to criminally investigate or prosecute any alcohol or drug abuse patient.[facility] CenterIn the event this information is protected by the Federal Confidentiality of Alcohol and Drug Abuse Patient Records regulations: The Federal rules restrict any use of the information to criminally investigate or prosecute any alcohol or drug abuse patient.[facility] CenterIn the event this information is protected by the Federal Confidentiality of Alcohol and Drug Abuse Patient Records regulations: The Federal rules restrict any use of the information to criminally investigate or prosecute any alcohol or drug abuse patient.[facility] CenterIn the event this information is protected by the Federal Confidentiality of Alcohol and Drug Abuse Patient Records regulations: The Federal rules restrict any use of the information to criminally investigate or prosecute any alcohol or drug abuse patient.[facility] CenterIn the event this information is protected by the Federal Confidentiality of Alcohol and Drug Abuse Patient Records regulations: The Federal rules restrict any use of the information to criminally investigate or prosecute any alcohol or drug abuse patient.[facility] CenterIn the event this information is protected by the Federal Confidentiality of Alcohol and Drug Abuse Patient Records regulations: The Federal rules restrict any use of the information to criminally investigate or prosecute any alcohol or drug abuse patient.[facility] CenterIn the event this information is protected by the Federal Confidentiality of Alcohol and Drug Abuse Patient Records regulations: The Federal rules restrict any use of the information to criminally investigate or prosecute any alcohol or drug abuse patient.[facility] CenterIn the event this information is protected by the Federal Confidentiality of Alcohol and Drug Abuse Patient Records regulations: The Federal rules restrict any use of the information to criminally investigate or prosecute any alcohol or drug abuse patient.[facility] CenterIn the event this information is protected by the Federal Confidentiality of Alcohol and Drug Abuse Patient Records regulations: The Federal rules restrict any use of the information to criminally investigate or prosecute any alcohol or drug abuse patient.[facility] CenterIn the event this information is protected by the Federal Confidentiality of Alcohol and Drug Abuse Patient Records regulations: The Federal rules restrict any use of the information to criminally investigate or prosecute any alcohol or drug abuse patient.[facility] CenterIn the event this information is protected by the Federal Confidentiality of Alcohol and Drug Abuse Patient Records regulations: The Federal rules restrict any use of the information to criminally investigate or prosecute any alcohol or drug abuse patient.[facility] CenterIn the event this information is protected by the Federal Confidentiality of Alcohol and Drug Abuse Patient Records regulations: The Federal rules restrict any use of the information to criminally investigate or prosecute any alcohol or drug abuse patient.[facility] CenterIn the event this information is protected by the Federal Confidentiality of Alcohol and Drug Abuse Patient Records regulations: The Federal rules restrict any use of the information to criminally investigate or prosecute any alcohol or drug abuse patient.[facility] CenterIn the event this information is protected by the Federal Confidentiality of Alcohol and Drug Abuse Patient Records regulations: The Federal rules restrict any use of the information to criminally investigate or prosecute any alcohol or drug abuse patient.[facility] Care Teams (unrecognized sec tion and content) Director Of Investigations Relationship Specialty Start Date End Date Julio Licea MD [address] [place], [place] [address] PCP - General Family Practice 12/26/20 Director Of Investigations Relationship Specialty Start Date End Date Julio Licea MD [address] [place] [address] PCP - General Family Practice 12/26/20 Director Of Investigations Relationship Specialty Start Date End Date Julio Licea MD [facility] [place] [address] PCP - General Family Practice 12/26/20 Director Of Investigations Relationship Specialty Start Date End Date Julio Licea MD [address] [place] [address], [place] [address] PCP - General Family Practice 12/26/20 Director Of Investigations Relationship Specialty Start Date End Date Julio Licea MD [address] [place] [address], [place] [address] PCP - General Family Practice 12/26/20 Director Of Investigations Relationship Specialty Start Date End Date Julio Licea MD [address] [place] [address], [place] [address] PCP - General Family Practice 12/26/20 Director Of Investigations Relationship Specialty Start Date End Date Julio Licea MD [address] [place] [address], [place] [address] PCP - General Family Practice 12/26/20 Director Of Investigations Relationship Specialty Start Date End Date Julio Licea MD [address] [place] [address], [place] [address] PCP - General Family Practice 12/26/20 Director Of Investigations Relationship Specialty Start Date End Date Julio Licea MD [address] [place] [address], [place] [address] PCP - General Family Practice 12/26/20 Director Of Investigations Relationship Specialty Start Date End Date Julio Licea MD [address] [place] [address], [place] [address] PCP - General Family Medicine 12/26/20 Director Of Investigations Relationship Specialty Start Date End Date Julio Licea MD [address] [place] [address] PCP - General Family Medicine 12/26/20 Director Of Investigations Relationship Specialty Start Date End Date Julio Licea MD [address] [place] [address] PCP - General Family Medicine 12/26/20 Director Of Investigations Relationship Specialty Start Date End Date Julio Licea MD [address] [place] [address] PCP - General Family Medicine 12/26/20 Director Of Investigations Relationship Specialty Start Date End Date Julio Licea MD [address] [place] [address] PCP - General Family Medicine 12/26/20 Director Of Investigations Relationship Specialty Start Date End Date Julio Licea MD [address] [place] [address] PCP - General Family Medicine 12/26/20 Director Of Investigations Relationship Specialty Start Date End Date Julio Licea MD [address] [place] [address] PCP - General Family Medicine 12/26/20 Director Of Investigations Relationship Specialty Start Date End Date Julio Licea MD [address] [place] [address] PCP - General Family Medicine 12/26/20 Director Of Investigations Relationship Specialty Start Date End Date Julio Licea MD [address] [place] [address] PCP - General Family Medicine 12/26/20 Director Of Investigations Relationship Specialty Start Date End Date Julio Licea MD [address] [place] [address] PCP - General Family Medicine 12/26/20 Director Of Investigations Relationship Specialty Start Date End Date Julio Licea MD [address] [place] [address] PCP - General Family Medicine 12/26/20 Director Of Investigations Relationship Specialty Start Date End Date Julio Licea MD [address] [place] [address] PCP - General Family Medicine 12/26/20 Director Of Investigations Relationship Specialty Start Date End Date Julio Licea MD [address] [place] [address] PCP - General Family Medicine 12/26/20 Director Of Investigations Relationship Specialty Start Date End Date Julio Licea MD [address] [place] [address] PCP - General Family Medicine 12/26/20 Director Of Investigations Relationship Specialty Start Date End Date Julio Licea MD [address] [place] [address] PCP - General Family Medicine 12/26/20 Director Of Investigations Relationship Specialty Start Date End Date Julio Licea MD [address] [place] [address] PCP - General Family Medicine 12/26/20 Director Of Investigations Relationship Specialty Start Date End Date Julio Licea MD [address] [place] [address] PCP - General Family Medicine 12/26/20 Director Of Investigations Relationship Specialty Start Date End Date Julio Licea MD [address] [place] [address] PCP - General Family Medicine 12/26/20 Director Of Investigations Relationship Specialty Start Date End Date Julio Licea MD [address] [place] [address] PCP - General Family Medicine 12/26/20 Director Of Investigations Relationship Specialty Start Date End Date Julio Licea MD [address] [place] [address] PCP - General Family Medicine 12/26/20 Director Of Investigations Relationship Specialty Start Date End Date Julio Licea MD [address] [place] [address] PCP - General Family Medicine 12/26/20 Director Of Investigations Relationship Specialty Start Date End Date Julio Licea MD [address] [place] [address] PCP - General Family Medicine 12/26/20 Director Of Investigations Relationship Specialty Start Date End Date Julio Licea MD [address] [place] [address] PCP - General Family Medicine 12/26/20 Director Of Investigations Relationship Specialty Start Date End Date Julio Licea MD [address] [place] [address] PCP - General Family Medicine 12/26/20 Director Of Investigations Relationship Specialty Start Date End Date Julio Licea MD [address] [place] [address] PCP - General Family Medicine 12/26/20 Director Of Investigations Relationship Specialty Start Date End Date Julio Licea MD [address] [place] [address] PCP - General Family Medicine 12/26/20 Director Of Investigations Relationship Specialty Start Date End Date Julio Licea MD [address] [place] [address] PCP - General Family Medicine 12/26/20 Director Of Investigations Relationship Specialty Start Date End Date Julio Licea MD [address] [place] [address] PCP - General Family Medicine 12/26/20 Director Of Investigations Relationship Specialty Start Date End Date Julio Licea MD [address] [place] [address] PCP - General Family Medicine 12/26/20 Director Of Investigations Relationship Specialty Start Date End Date Julio Licea MD [address] [place] [address] PCP - General Family Medicine 12/26/20 Director Of Investigations Relationship Specialty Start Date End Date Julio Licea MD [address] [place] [address] PCP - General Family Medicine 12/26/20 Director Of Investigations Relationship Specialty Start Date End Date Julio Licea MD [address] [place] [address] PCP - General Family Medicine 12/26/20 Director Of Investigations Relationship Specialty Start Date End Date Julio Licea MD [address] [place] [address] PCP - General Family Medicine 12/26/20 Director Of Investigations Relationship Specialty Start Date End Date Julio Licea MD [address] [place] [address] PCP - General Family Medicine 12/26/20 Director Of Investigations Relationship Specialty Start Date End Date Julio Licea MD [address] [place] [address] PCP - General Family Medicine 12/26/20 Director Of Investigations Relationship Specialty Start Date End Date Julio Licea MD [address] [place] [address] PCP - General Family Medicine 12/26/20 Director Of Investigations Relationship Specialty Start Date End Date Julio Licea MD [address] [place] [address] PCP - General Family Medicine 12/26/20 Director Of Investigations Relationship Specialty Start Date End Date Julio Licea MD [address] [place] [address] PCP - General Family Medicine 12/26/20 Director Of Investigations Relationship Specialty Start Date End Date Julio Licea MD [address] [place] [address] PCP - General Family Medicine 12/26/20 Director Of Investigations Relationship Specialty Start Date End Date Julio Licea MD [address] [place] [address] PCP - General Family Medicine 12/26/20 Director Of Investigations Relationship Specialty Start Date End Date Julio Licea MD [address] [place] [address] PCP - General Family Medicine 12/26/20 Deanne Shen, GLACIOLOGIST.MAMMOGRAPHER [address] [place] [address] [facility] 07/18/24 Elana Candelario PA-C [address] [place] [address] [facility] 07/18/24 Director Of Investigations Relationship Specialty Start Date End Date Julio Licea MD [address] [place] [address] PCP - General Family Medicine 12/26/20 Deanne Shen, GLACIOLOGIST.MAMMOGRAPHER [address] [place] [address] [facility] 07/18/24 Elana Candelario PA-C [address] [place] [address] [facility] Director Of Investigations Relationship Specialty Start Date End Date Julio Licea MD [address] [place] [address] PCP - General Family Medicine 12/26/20 Deanne Shen, GLACIOLOGIST.MAMMOGRAPHER [address] [place] [address] [facility] 07/18/24 Elana Candelario PA-C [address] [place] [address] [facility] 07/18/24 Director Of Investigations Relationship Specialty Start Date End Date Julio Licea MD [address] [place] [address] PCP - General Family Medicine 12/26/20 Deanne Shen APRN.MAMMOGRAPHER [address] [place] [address] [facility] 07/18/24 Elana Candelario PA-C [address] [place] [address] [facility] 07/18/24 Director Of Investigations Relationship Specialty Start Date End Date Julio Licea MD [facility] [place] [address] PCP - General Family Medicine 12/26/20 Deanne Shen APRN.MAMMOGRAPHER [address] [place] [address] [facility] 07/18/24 Elana Candelario PA-C [address] [place] [address] [facility] 07/18/24 Director Of Investigations Relationship Specialty Start Date End Date Julio Licea MD [address] [place] [address] PCP - General Family Medicine 12/26/20 Deanne Shen APRN.MAMMOGRAPHER [facility] [place] [address] [facility] 07/18/24 Elana Candelario PA-C [address] [place] [address] [facility] 07/18/24 Director Of Investigations Relationship Specialty Start Date End Date Julio Licea MD [address] [place] [address] PCP - General Family Medicine 12/26/20 Deanne Shen, [place].MAMMOGRAPHER [address] [place] [address] [facility] 07/18/24 Elana Candelario PA-C [address] [place] [address] [facility] C[facility] Family [facility] 07/18/24 Director Of Investigations Relationship Specialty [place] [address] [place] [address] PCP - General Family Medicine 12/26/20 Deanne Shen, GLACIOLOGIST.MAMMOGRAPHER [address] [place] [address] [facility] 07/18/24 Elana Candelario PA-C [address] [place] [address] [facility] 07/18/24 Director Of Investigations Relationship Specialty Start Date End Date Julio Licea MD [address] [place] [address] PCP - General Family Medicine 11/16/24 Deanne Shen, GLACIOLOGIST.MAMMOGRAPHER [address] [place] [address] [facility] 07/18/24 Elana Candelario PA-C [address] [place] [address] [facility] 07/18/24 Director Of Investigations Relationship Specialty Start Date End Date Julio Licea MD [address] [place] [address] PCP - General Family Medicine 11/16/24 Deanne Shen APRN.MAMMOGRAPHER [address] [place] [address] [facility] 01/11/25 Elana Candelario PA-C [address] [place] [address] [facility] 01/11/25 Director Of Investigations Relationship Specialty Start Date End Date Julio Licea MD [address] [place] [address] PCP - General Family Medicine 11/16/24 Deanne Shen APRN.MAMMOGRAPHER [address] [place] [address] [facility] 01/11/25 Elana Candelario PA-C [address] [place] [address] [facility] 01/11/25 Director Of Investigations Relationship Specialty Start Date End Date Julio Licea MD [address] [place] [address] PCP - General Family Medicine 11/16/24 Deanne Shen APRN.MAMMOGRAPHER [facility] [place] [address] [facility] 01/11/25 Elana Candelario PA-C [address] [place] [address] [facility] Coverer Hand Family [facility] 01/11/25 Director Of Investigations Relationship Specialty Start Date End Date Julio Licea MD [address] [place] [address] PCP - General Family Medicine 11/16/24 Deanne Shen APRN.MAMMOGRAPHER [address] [place] [address] [facility] 01/11/25 Elana Candelario PA-C [facility] [place] [address] [facility] 01/11/25 Director Of Investigations Relationship Specialty Start Date End Date Julio Licea MD [address] [place] [address] PCP - General Family Medicine 11/16/24 Deanne Shen APRN.MAMMOGRAPHER [address] [place] [address] [facility] 01/11/25 Elana Candelario PA-C [address] [place] [address] [facility] 01/11/25 Team Status: Active Member Role/Relationship Status Dates Dr. Celestina Piña III, MD Family Provider Active Dr. Julio Licea MD Primary Care Provider Active Team Status: Inactive Member Role/Relationship Status Dates Dr. Julio Licea MD Primary Care Provider Active Start: December 17, 2024 End: December 17, 2024 Dr. Julio Licea MD Referring Provider Active Start: December 17, 2024 End: December 17, 2024 Rose Callahan NP, INTERACTIVE MEDIA MARKETING STRATEGIST-C Attending Provider Active Start: December 17, 2024 End: December 17, 2024 Team Status: Inactive Member Role/Relationship Status Dates Dr. Julio Licea MD Primary Care Provider Active Start: February 09, 2025 End: February 09, 2025 Dr. Julio Licea MD Referring Provider Active Start: February 09, 2025 End: February 09, 2025 KRYSTINA Waters Attending Provider Active Start: February 09, 2025 End: February 09, 2025 Director Of Investigations Relationship Specialty Start Date End Date Julio Licea MD [address] [place] [address] PCP - General Family Medicine 11/16/24 Deanne Shen, [place].MAMMOGRAPHER [address] [place] [address] [facility] 01/11/25 Elana Candelario PA-C [facility] [place] [address] [facility] 01/11/25 Director Of Investigations Relationship Specialty Start Date End Date Julio Licea MD [address] [place], [place] [address] PCP - General Family Medicine 11/16/24 Deanne Shen, GLACIOLOGIST.MAMMOGRAPHER [facility] [place] [address] [facility] 01/11/25 Elana Candelario PA-C [address] [place], [place] [address] [facility] 01/11/25 Director Of Investigations Relationship Specialty Start Date End Date Julio Licea MD [address] [place] [address] PCP - General Family Medicine 11/16/24 Deanne Shen, [place].MAMMOGRAPHER [address] [place] [address] [facility] 01/11/25 Elana Candelario PA-C [address] [place] [address] [facility] 01/11/25 Director Of Investigations Relationship Specialty Start Date End Date Julio Licea MD [address] [place] [address] PCP - General Family Medicine 11/16/24 Deanne Shen, GLACIOLOGIST.MAMMOGRAPHER [address] [place] [address] [facility] 01/11/25 Elana Candelario PA-C [address] [place] [address] [facility] 01/11/25 Director Of Investigations Relationship Specialty Start Date End Date Julio Licea MD [address] [place] [address] PCP - General Family Medicine 11/16/24 Deanne Shen, GLACIOLOGIST.MAMMOGRAPHER [address] [place] [address] [facility] 01/11/25 Elana Candelario PA-C [address] [place] [address] [facility] Goals (unrecognized section and content) Goals may be documented in a n alternate section No data available for this sectionGoals may be documented in an alternate section No data available for this section No data available for this section No data available for this section No data available for this section No data available for this section No data available for this section No data available for this section No data available for this section No data available for this section No data available for this section No data available for this section No data available for this section No data available for this section No data available for this section No data available for this section No data available for this section No data available for this section No data available for this sectionGoals may be documented in an alternate section No data available for this section No data available for this section No data available for this section FOR RECORDS PERTAINING TO PATIENTS WHO ARE OR HAVE BEEN ENROLLED IN A CHEMICAL DEPENDENCY/SUBSTANCEABUSE PROGRAM, SOME INFORMATION MAY BE OMITTED. This clinical summary was aggregated from multiple sources. Caution should be exercised in using it in the provision of clinical care. This summary normalizes information from multiple sources, and as a consequence, information in this document may materially change the coding, format and clinical context of patient data. In addition, data may be omitted in some cases. CLINICAL DECISIONS SHOULD BE BASED ON THE PRIMARY CLINICAL RECORDS. [employer] provides no warranty or guarantee of the accuracy or completeness of information in this document."
== END | disposition home or self-care (01) ==
LOC: NM 06:57
PROVIDERS: PCP Family Medicine; Referring Provider Nurse Practitioner Acute Care; Visit Provider Nurse Practitioner Acute Care
DX: R10.9 Unspecified abdominal pain (principal); R11.2 Nausea with vomiting, unspecified
CPT/HCPCS: 78264; A9541

== ENCOUNTER → 2025-06-08 | Outpatient (CLI) | payer MEDICARE, SELFPAY ==
[2024-09-18 10:18] VITALS: BMI 27.6
[2025-06-10 11:08] LABS: Giardia Lamblia, Stool EIA Negative (Negative)
[2025-06-12 09:09] LABS: Calprotectin, Stool 187 ug/g (0-120)
== END | disposition home or self-care (01) ==
LOC: LABSPEC 13:51
PROVIDERS: PCP Family Medicine; Referring Provider Nurse Practitioner Acute Care; Visit Provider Nurse Practitioner Acute Care
DX: K31.84 Gastroparesis (principal); R19.7 Diarrhea, unspecified
CPT/HCPCS: 83993; 87329; 87493